=== PATIENT | male | born 1960 | race Caucasian/White ===

== ENCOUNTER → 2017-01-04 | Outpatient (CLI) | payer OTHER, MEDICARE ==
[~2017-01-04] MED LIST: ACET-1256 PO; ALLO100T PO; ASCO500T3 PO; BACL10TA PO; CBCI IV; FRRG PO; GLIM4TAB2 PO; INSU70IN2 SC; INSUINJ8 SQ; L-ME1CAP3 PO; LCTX PO; LPT/20 PO; LRS10 PO; LXP10 PO; MAGN400T7 PO; MENTOIN TOP; METH118C PO; MULT-411 PO; NRN800 PO; NYST100098 TOP; NYST1POW7 TOP; NYSTCRE11 TOP; PANT40TA2 PO; PROBCAP PO; ROPI1TAB29 PO; SODIENE PR; TRIA0.1C55 TOP; WARF-246 PO; WARF10TA4 PO; WARF7.5T4 PO; ZINC1CAP PO; ZNF/4 PO
--- NOTE | 2017-01-04 10:29 | DIAGNOSTIC IMAGING REPORT ---
LEFT FEMUR 2 VIEWS ROUTINE CLINICAL HISTORY: S72.342D fracture COMPARISON: 09/01/2016 DISCUSSION: Oblique fracture mid femoral shaft. Intramedullary luis in position. Partial interval healing from the prior study. Alignment remains unchanged. There is no evidence for soft tissue swelling. IMPRESSION: Considerable interval healing of the oblique fracture mid femoral shaft. Alignment remains unchanged. Electronically signed by: Amaury Pierce M.D. 01/04/2017 10:28 AM Dictated Date/Time: 01/04/2017 10:26 AM
== END | disposition home or self-care (01) ==
LOC: C.RAD 09:54
PROVIDERS: ATTEND Orthopaedic Surgery
DX: S72.342D Displaced spiral fracture of shaft of left femur, subsequent encounter for closed fracture with routine healing (principal); X58.XXXD Exposure to other specified factors, subsequent encounter

== ENCOUNTER → 2017-01-08 | Outpatient (CLI) | payer OTHER, MEDICARE ==
[2017-01-08 19:53] LABS: BASO % 0.3 %; BASO ABS # 0.03 K/uL (0-0.2); COMPLETE YES; EOS % 4.6 %; HEMATOCRIT 34.9 % (42-52); IG% 0.3 %; LYMPH % 29.1 %; LYMPH ABS # 2.66 K/uL (1.2-3.4); MEAN CELL VOLUME 84.5 fL (80-100); MEAN CORPUSCULAR HEMOGLOBIN 26.2 pg (25-34); MEAN CORPUSCULAR HGB CONC 30.9 g/dl (32-36); MONO % 6.2 %; NEUT % 59.5 %; PLATELET COUNT 249 K/uL (130-400); RED BLOOD COUNT 4.13 M/uL (4.7-6.1); WHITE BLOOD COUNT 9.15 K/uL (4.8-10.8)
[2017-01-08 20:15] LABS: ALT/SGPT 18 U/L (12-78); AST/SGOT 13 U/L (15-37); BLOOD UREA NITROGEN 13 mg/dl (7-18); BUN/CREATININE RATIO 20.3 (10-20); CALCIUM 8.6 mg/dl (8.5-10.1); CARBON DIOXIDE 34 mmol/L (21-32); CHLORIDE 98 mmol/L (98-107); CREATININE 0.66 mg/dl (0.60-1.40); GLUCOSE 191 mg/dl (70-99); POTASSIUM 3.7 mmol/L (3.5-5.1); SODIUM 137 mmol/L (136-145)
[2017-01-08 20:18] LABS: ALB/GLOB RATIO 0.6 (0.9-2); ALKALINE PHOSPHATASE 51 U/L (45-117)
== END | disposition home or self-care (01) ==
LOC: C.LABSPEC 19:10
PROVIDERS: ATTEND Internal Medicine Infectious Disease
DX: M86.9 Osteomyelitis, unspecified (principal)

== ENCOUNTER → 2017-01-12 | Outpatient (CLI) | payer OTHER, MEDICARE ==
[2017-01-12 20:11] LABS: BASO % 0.3 %; BASO ABS # 0.04 K/uL (0-0.2); COMPLETE YES; EOS % 3.5 %; HEMATOCRIT 32.8 % (42-52); IG% 0.3 %; LYMPH ABS # 2.42 K/uL (1.2-3.4); MEAN CELL VOLUME 85.2 fL (80-100); MEAN CORPUSCULAR HEMOGLOBIN 27.3 pg (25-34); MEAN PLATELET VOLUME 9.2 fL (7.4-10.4); MONO % 5.5 %; NEUT % 71.4 %; PLATELET COUNT 293 K/uL (130-400); RED BLOOD COUNT 3.85 M/uL (4.7-6.1); WHITE BLOOD COUNT 12.76 K/uL (4.8-10.8)
[2017-01-12 20:28] LABS: ALT/SGPT 18 U/L (12-78); AST/SGOT 13 U/L (15-37); BLOOD UREA NITROGEN 22 mg/dl (7-18); BUN/CREATININE RATIO 27.5 (10-20); CALCIUM 8.9 mg/dl (8.5-10.1); CARBON DIOXIDE 34 mmol/L (21-32); CHLORIDE 98 mmol/L (98-107); GLUCOSE 194 mg/dl (70-99); POTASSIUM 3.9 mmol/L (3.5-5.1); SODIUM 137 mmol/L (136-145)
[2017-01-12 20:31] LABS: ALB/GLOB RATIO 0.6 (0.9-2); ALKALINE PHOSPHATASE 58 U/L (45-117)
== END | disposition home or self-care (01) ==
LOC: C.LABSPEC 08:43
PROVIDERS: ATTEND Internal Medicine Infectious Disease
DX: M86.9 Osteomyelitis, unspecified (principal); Z51.81 Encounter for therapeutic drug level monitoring; Z79.2 Long term (current) use of antibiotics

== ENCOUNTER → 2017-01-19 | Outpatient (CLI) | payer OTHER, MEDICARE ==
[2017-01-19 20:04] LABS: BASO % 0.3 %; BASO ABS # 0.04 K/uL (0-0.2); COMPLETE YES; EOS % 1.9 %; HEMATOCRIT 34.4 % (42-52); IG% 0.3 %; LYMPH % 19.3 %; LYMPH ABS # 2.77 K/uL (1.2-3.4); MEAN CELL VOLUME 85.8 fL (80-100); MEAN CORPUSCULAR HEMOGLOBIN 26.9 pg (25-34); MEAN CORPUSCULAR HGB CONC 31.4 g/dl (32-36); MEAN PLATELET VOLUME 8.7 fL (7.4-10.4); MONO % 5.9 %; NEUT % 72.3 %; PLATELET COUNT 294 K/uL (130-400); RED BLOOD COUNT 4.01 M/uL (4.7-6.1); WHITE BLOOD COUNT 14.37 K/uL (4.8-10.8)
[2017-01-19 20:30] LABS: ALT/SGPT 14 U/L (12-78); AST/SGOT 14 U/L (15-37); BLOOD UREA NITROGEN 23 mg/dl (7-18); BUN/CREATININE RATIO 30.5 (10-20); CARBON DIOXIDE 36 mmol/L (21-32); CHLORIDE 98 mmol/L (98-107); CREATININE 0.76 mg/dl (0.60-1.40); GLUCOSE 92 mg/dl (70-99); POTASSIUM 3.8 mmol/L (3.5-5.1); SODIUM 138 mmol/L (136-145)
[2017-01-19 20:33] LABS: ALB/GLOB RATIO 0.6 (0.9-2); ALKALINE PHOSPHATASE 57 U/L (45-117)
== END | disposition home or self-care (01) ==
LOC: C.LABSPEC 08:49
PROVIDERS: ATTEND Internal Medicine Infectious Disease
DX: M86.9 Osteomyelitis, unspecified (principal)

== ENCOUNTER → 2017-01-26 | Outpatient (CLI) | payer OTHER, MEDICARE ==
[2017-01-26 21:33] LABS: ALT/SGPT 14 U/L (12-78); BLOOD UREA NITROGEN 24 mg/dl (7-18); BUN/CREATININE RATIO 33.2 (10-20); CARBON DIOXIDE 33 mmol/L (21-32); CHLORIDE 97 mmol/L (98-107); CREATININE 0.72 mg/dl (0.60-1.40); GLUCOSE 139 mg/dl (70-99); POTASSIUM 3.7 mmol/L (3.5-5.1); SODIUM 136 mmol/L (136-145)
[2017-01-26 21:36] LABS: ALB/GLOB RATIO 0.5 (0.9-2); ALKALINE PHOSPHATASE 62 U/L (45-117); AST/SGOT 16 U/L (15-37)
[2017-01-26 21:56] LABS: CALCIUM 8.8 mg/dl (8.5-10.1)
[2017-01-26 22:50] LABS: BASO % 0.4 %; BASO ABS # 0.05 K/uL (0-0.2); COMPLETE YES; EOS % 2.6 %; HEMATOCRIT 32.8 % (42-52); IG% 0.4 %; LYMPH % 16.6 %; LYMPH ABS # 2.25 K/uL (1.2-3.4); MEAN CELL VOLUME 85.4 fL (80-100); MEAN CORPUSCULAR HEMOGLOBIN 27.6 pg (25-34); MEAN CORPUSCULAR HGB CONC 32.3 g/dl (32-36); MEAN PLATELET VOLUME 8.9 fL (7.4-10.4); MONO % 5.9 %; NEUT % 74.1 %; PLATELET COUNT 266 K/uL (130-400); RED BLOOD COUNT 3.84 M/uL (4.7-6.1); WHITE BLOOD COUNT 13.55 K/uL (4.8-10.8)
== END | disposition home or self-care (01) ==
LOC: C.LABSPEC 10:05
PROVIDERS: ATTEND Internal Medicine Infectious Disease
DX: M86.9 Osteomyelitis, unspecified (principal)

== ENCOUNTER 2017-03-02 20:27 | Emergency (ER) | payer OTHER, MEDICARE ==
[~2017-03-02] VITALS: Ht 185.4 cm; Wt 104.5 kg
[~2017-03-02 20:27] MED LIST changes: -CBCI IV; -GLIM4TAB2 PO; -INSU70IN2 SC; -NYST1POW7 TOP; -SODIENE PR; -WARF-246 PO
[2017-03-02 20:39] VITALS: BP 147/80; PULSE 85; TEMP 36.7; O2SAT 98; Ht 185.4 cm; Wt 104.5 kg
--- NOTE | 2017-03-02 20:59 | EMERGENCY ROOM VISIT NOTE ---
"ED Visit Note First contact with patient: 20:51 CHIEF COMPLAINT: PICC line won't flush HISTORY OF PRESENT ILLNESS: This 56-year-old male presents the ER with his stating that she could not get his PICC line to flush this evening. She called the home health nurse and was instructed to come to the emergency room. He has had this PICC line in for 4 weeks. He has had not had any problems prior to this episode. REVIEW OF SYSTEMS: 6 system review was performed and was negative unless stated otherwise in history of present illness. PMH: The patient is healthy; see chronic problem list SOCIAL HISTORY: Patient lives with his PHYSICAL EXAM: Vital Signs: Were reviewed Reviewed Nurse's notes. GENERAL: 56- year-old white male appears sitting comfortably in a wheelchair. MENTAL Status : Alert and oriented 3. RIGHT ARM: PICC line in place. No surrounding erythema or edema noted. EMERGENCY DEPARTMENT COURSE: The patient was evaluated. The nurse was able to flush and draw blood from the line without any difficulty. Please see her note for details. DIAGNOSIS: PICC line problems DISCHARGE INSTRUCTIONS AND TREATMENT: Continue current IV therapy through PICC line. 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 (14) Neurogenic Bladder Status: Chronic (15) Personal History Of Urinary Calculi Status: Chronic (16) Personal History, Pneumonia (Recurrent) Status: Chronic (17) Personal History, Urinary (Tract) Infection Status: Chronic (18) Pressure Ulcer, Buttock Status: Chronic (19) Pressure Ulcer, Heel Status: Chronic (20) Pressure Ulcer, Stage Ii Status: Chronic (21) Quadriplegia, Unspecified Status: Chronic (22) Septic Shock Status: Resolved (23) Severe Sepsis Status: Resolved (24) Sleep apnea Status: Chronic (25) Ulcer Of Calf Status: Chronic Surgical Problems: (1) cervical laminoplasty/decompression [facility] [place] Status: Chronic (2) Insertion of inferior vena caval filter Status: Chronic (3) Insertion of stent into ureter Permanent Comment: left ureter 03/17/11 Status: Chronic (4) Lithotripsy Permanent Comment: laser lithotripsy left ureteral stone 03/17/11 Status: Chronic (5) Suprapubic cystostomy Status: Chronic Current/Historical Medications Scheduled Allopurinol (Zyloprim), 100 MG PO BID Ascorbic Acid (Vitamin C), 250 MG PO TID Atorvastatin (Atorvastatin Calcium), 20 MG PO HS Baclofen (Lioresal), 20 MG PO HS Baclofen (Baclofen), 5 MG PO TID Escitalopram Oxalate (Escitalopram Oxalate), 15 MG PO QAM Ferrous Gluconate (Ferrous Gluconate), 324 MG PO QAM Gabapentin (Gabapentin), 800 MG PO BID Insulin Nph (Novolin-N), 22 UNITS SQ QAM Insulin Nph (Novolin-N), 22 UNITS SQ QPM L-Methylfolate W/ Algae-Vitami (Metanx), 1 CAP PO BID Lactobacillus Acidophilus (Floranex), 1 TAB PO TIDM Magnesium Oxide (Mg Supplement (Magnesium Oxide), 241.3 MG PO BID Eulhelwbckp-Iwpvq-Kjfdzxzod Bl (Uribel), 1 CAP PO BID Multiple Vitamin (Daily Steve), 1 TAB PO QAM Nystatin (Mycostatin), 1 APPLN TOP BID Pantoprazole (Pantoprazole Sodium), 40 MG PO DAILY Probiotic Product (Newvem), 1 CAP PO QPM Ropinirole HCl (Ropinirole HCl), 1 MG PO QID Tizanidine (Tizanidine HCl), 2 MG PO QID Warfarin Sod (Jantoven), 7.5 MG PO DIRECTED Warfarin Sod (Jantoven), 10 MG PO DIRECTED Zinc Sulfate (Zinc Sulfate), 220 MG PO BID Scheduled PRN Acetaminophen (Tylenol), 1,000 MG PO BID PRN for Pain Menthol-Zinc Oxide (Calmoseptine 0.44-20.625 %), 1 APPLN TOP DAILY PRN for Skin Impairment Nystatin/Triamcinolone (Mycolog ||), 1 APPLN TOP BID PRN for Skin Impairment Triamcinolone Acet 0.1% (Aristocort 0.1%), 1 APPLN TOP BID PRN for Skin Impairment Allergies Coded Allergies: Piperacillin (Verified Allergy, Intermediate, RASH, 02/03/17) Sulfa Antibiotics (Verified Allergy, Intermediate, HIVES, 02/03/17) Tazobactam (Verified Allergy, Intermediate, RASH, 02/03/17) Aztreonam (Verified Allergy, Unknown, unknown, 02/03/17) states he is allergic to Azactam and does not remember what the reaction was Codeine (Verified Allergy, Unknown, THROAT SWELLS, 02/03/17) Per Dr. Roblero/patient- tolerates morphine Lactose Intolerance (GI) (Verified Allergy, Unknown, GI symptoms, 02/03/17) Cheese is okay. Latex (Verified Allergy, Unknown, welts, 02/03/17) Vital Signs Date Time Temp Pulse Resp B/P (MAP) Pulse Ox O2 Delivery O2 Flow Rate FiO2 03/02/17 20:39 36.7 85 20 147/80 98 Room Air Departure Information Referrals Wilder Stanford M.D. (PCP) Patient Instructions My [facility]"
[2017-03-11] MEDS ORDERED: INSU70IN2 SC (11:34)
== END 2017-03-02 21:22 | disposition home or self-care (01) ==
LOC: C.EDB 20:29 → C.EDD 21:22
DX: T82.598A Other mechanical complication of other cardiac and vascular devices and implants, initial encounter (principal); Y84.8 Other medical procedures as the cause of abnormal reaction of the patient, or of later complication, without mention of misadventure at the time of the procedure; G82.50 Quadriplegia, unspecified; E11.9 Type 2 diabetes mellitus without complications; I10 Essential (primary) hypertension; M10.9 Gout, unspecified; Z86.718 Personal history of other venous thrombosis and embolism; Z87.442 Personal history of urinary calculi; Z87.440 Personal history of urinary (tract) infections; Z98.890 Other specified postprocedural states; Z87.01 Personal history of pneumonia (recurrent); Z79.01 Long term (current) use of anticoagulants; Z79.4 Long term (current) use of insulin; Z79.899 Other long term (current) drug therapy

== ENCOUNTER 2017-04-12 09:39 | Emergency (ER) | payer OTHER, MEDICARE ==
[~2017-04-12] VITALS: Ht 180.3 cm; Wt 131.0 kg
[~2017-04-12 09:39] MED LIST changes: +INSU70IN2 SC; -INSUINJ8 SQ; -PANT40TA2 PO; +PRT/40 PO
[2017-04-12 10:00] VITALS: TEMP 36.8; Ht 180.3 cm; Wt 131.0 kg
[2017-04-12] MEDS ORDERED: CBCI IV (10:11)
[2017-04-12] MEDS ORDERED: NYST1POW7 TOP (10:22)
[2017-04-12 10:51] VITALS: BP 105/64; PULSE 62; O2SAT 96
--- NOTE | 2017-04-12 15:02 | EMERGENCY ROOM VISIT NOTE ---
"History Report prepared by Caroline: Luis Armando Prado Under the Supervision of: Dr. Bob Samson D.O. First contact with patient: 10:08 Chief Complaint: OTHER COMPLAINT Stated Complaint: PICC LINE BLOCKED History of Present Illness The patient is a 56 year old male who presents to the Emergency Room for a PICC line malfunction. The patient states that his PICC line was not flushing today. He has the PICC line placed for antibiotic use secondary to osteomyelitis. He has been on the antibiotics since September of this year. The patient denies headache, change in vision, fevers, chest pain, shortness of breath, nausea, vomiting, diarrhea, and pain with urination. Source of History: patient Onset: today Position: arm (right) Quality: other (PICC line malfunction) Associated Symptoms: No chest pain, No SOB, No nausea, No vomiting Review of Systems See HPI for pertinent positives & negatives. A total of 6 systems reviewed and were otherwise negative. Past Medical & Surgical Medical Problems: (1) Allergy To Latex (2) Anticoagulants,Lt,Current Use (3) Asymptomatic bacteriuria (4) Calculus Of Ureter (5) Clostridium difficile infection (6) DM type 2 (diabetes mellitus, type 2) (7) Fever (8) Gastroesophageal reflux disease (9) Gout Nos (10) History of blood clots (11) Hx-Venous Thrombosis&Embolism (12) Hypertension (13) Hypertension Nos (14) Kidney disease (15) Late Eff Spinal Cord Inj (16) Major depressive disorder, recurrent (17) Neurogenic Bladder (18) Personal History Of Urinary Calculi (19) Personal History, Pneumonia (Recurrent) (20) Personal History, Urinary (Tract) Infection (21) Positive urine culture (22) Pressure Ulcer, Buttock (23) Pressure Ulcer, Heel (24) Pressure Ulcer, Stage Ii (25) Quadriplegia, Unspecified (26) Septic Shock (27) Severe Sepsis (28) Sleep apnea (29) Ulcer Of Calf Surgical Problems: (1) cervical laminoplasty/decompression [facility] [place]/02[place]09 (2) Insertion of inferior vena caval filter (3) Insertion of stent into ureter (4) Lithotripsy (5) Suprapubic cystostomy Family History FH: cancer FATHER (Prostate CA) MOTHER (Cervical CA) FH: diabetes mellitus FATHER MOTHER FH: gallbladder disease FH: hypertension FH: lung disease FH: seizures Social History Smoking Status: Never Smoker Alcohol Use: none Drug Use: none Marital Status: Occupation Status: disabled Current/Historical Medications Scheduled Allopurinol (Zyloprim), 100 MG PO BID Ascorbic Acid (Vitamin C), 250 MG PO TID Atorvastatin (Atorvastatin Calcium), 20 MG PO HS Baclofen (Lioresal), 20 MG PO HS Baclofen (Baclofen), 5 MG PO TID Daptomycin (Cubicin), Unknown Dose IV DAILY Escitalopram Oxalate (Escitalopram Oxalate), 15 MG PO QAM Ferrous Gluconate (Ferrous Gluconate), 324 MG PO QAM Gabapentin (Gabapentin), 800 MG PO BID Insulin Isophan/Regular (Novolin 70/30), 35 UNITS SC BID L-Methylfolate W/ Algae-Vitami (Metanx), 1 CAP PO BID Lactobacillus Acidophilus (Floranex), 1 TAB PO TIDM Magnesium Oxide (Mg Supplement (Magnesium Oxide), 241.3 MG PO BID Uocctdktbon-Dhpsk-Ibewoflyo Bl (Uribel), 1 CAP PO BID Multiple Vitamin (Daily Steve), 1 TAB PO QAM Nystatin (Topical) (Nystatin), 1 APPLN TOP BID Pantoprazole (Pantoprazole Sodium), 40 MG PO DAILY Probiotic Product (Spredfast), 1 CAP PO QPM Ropinirole HCl (Ropinirole HCl), 1 MG PO BID Tizanidine (Tizanidine HCl), 2 MG PO QID Warfarin Sod (Jantoven), 7.5 MG PO DIRECTED Warfarin Sod (Jantoven), 10 MG PO DIRECTED Zinc Sulfate (Zinc Sulfate), 220 MG PO BID Scheduled PRN Acetaminophen (Tylenol), 1,000 MG PO BID PRN for Pain Nystatin/Triamcinolone (Mycolog ||), 1 APPLN TOP BID PRN for Skin Impairment Allergies Coded Allergies: Piperacillin (Verified Allergy, Intermediate, RASH, 04/12/17) Sulfa Antibiotics (Verified Allergy, Intermediate, HIVES, 04/12/17) Tazobactam (Verified Allergy, Intermediate, RASH, 04/12/17) Aztreonam (Verified Allergy, Unknown, unknown, 04/12/17) states he is allergic to Azactam and does not remember what the reaction was Codeine (Verified Allergy, Unknown, THROAT SWELLS, 04/12/17) Per Dr. Roblero/patient- tolerates morphine Lactose Intolerance (GI) (Verified Allergy, Unknown, GI symptoms, 04/12/17) Cheese is okay. Latex (Verified Allergy, Unknown, welts, 04/12/17) Physical Exam Vital Signs Date Time Temp Pulse Resp B/P (MAP) Pulse Ox O2 Delivery O2 Flow Rate FiO2 04/12/17 10:51 62 105/64 96 04/12/17 10:00 36.8 86 18 108/89 94 Room Air Physical Exam GENERAL: Sitting up in bed, morbidly obese. alert, well appearing, well nourished, no distress, non-toxic EYE EXAM: normal conjunctiva OROPHARYNX: no exudate, no erythema, lips, buccal mucosa, and tongue normal and mucous membranes are moist NECK: supple, no nuchal rigidity, no adenopathy, non-tender LUNGS: Clear to auscultation. Normal chest wall mechanics HEART: no murmurs, S1 normal and S2 normal ABDOMEN: There is an ostomy bad present in left quadrant. abdomen soft, non- tender, normo-active bowel sounds, no masses, no rebound or guarding. UPPER EXTREMITIES: upper extremities are grossly normal. PICC line located in right mid-humerus, actively being flushed by IV team. LOWER EXTREMITIES: No pitting edema. NEURO EXAM: Normal sensorium Medical Decision & Procedures ED Course ED COURSE: Vital signs were reviewed and showed normal vitals The patients medical record was reviewed The above diagnostic studies were performed and reviewed. ED treatments and interventions as stated above. 1024: The patient was evaluated in room A4. A complete history and physical examination was performed. 1038: While discussing the case with the patient the IV-team has flushed the PICC line and it is functioning well. The patient feels well and is ready to be discharged home. Based on the patients age, coexisting illnesses, exam and lab findings the decision to treat as an outpatient was made. The patient remained stable while under my care. The patient appeared well at the time of discharge. Medical Decision Patient is a 56-year-old male who presents the ER for his right PICC line not functioning/flushing. Patient has no other complaints. He is currently receiving IV antibiotics with infectious disease following. Patient was evaluated by IV team and PICC line flushed without difficulty. Patient was discharged follow-up with PCP and infectious disease. Dressing was changed. She had no other complains. Discussed with Pt concerning signs and symptoms to watch out for. Pt was instructed to follow up with their PCP and discussed with the patient their option to return to the ED at anytime for persistent or worsening symptoms. The appropriate anticipatory guidance and out-patient management, including indications for return to the emergency department, were explained at length to the patient and understood. Impression Primary Impression: Occluded PICC line Critical Care The scribe's documentation has been prepared under my direction and personally reviewed by me in its entirety. I confirm that the note above accurately reflects all work, treatment, procedures, and medical decision making performed by me. Scribe Attestation The scribe's documentation has been prepared under my direction and personally reviewed by me in its entirety. I confirm that the note above accurately reflects all work, treatment, procedures, and medical decision making performed by me. Departure Information Dispostion Home / Self-Care Referrals Wilder Stanford M.D. (PCP) Forms HOME CARE DOCUMENTATION FORM, IMPORTANT VISIT INFORMATION, WORK / SCHOOL INSTRUCTIONS Patient Instructions My [facility] Additional Instructions Please follow up with your primary care doctor or if you are a student, [facility] with in the next 24 hours. Any worsening of your symptoms, please return to the ED immediately. This includes any fevers greater than 100.4, worsening pain, chest pain, shortness breath, persistent nausea, vomiting, unable to eat or drink, redness around your PICC site, PICC line flushing, or any other concerning signs or symptoms from your standpoint. Please follow up with infectious disease in regards to how long you keep your PICC line in. Problem Qualifiers Primary Impression: Occluded PICC line Encounter type: initial encounter Qualified Codes: T82.898A - Other specified complication of vascular prosthetic devices, implants and grafts, initial encounter"
== END 2017-04-12 10:51 | disposition home or self-care (01) ==
LOC: C.EDB 09:40 → C.EDA 10:51
DX: T82.898A Other specified complication of vascular prosthetic devices, implants and grafts, initial encounter (principal); Y84.8 Other medical procedures as the cause of abnormal reaction of the patient, or of later complication, without mention of misadventure at the time of the procedure; M86.9 Osteomyelitis, unspecified; Z79.01 Long term (current) use of anticoagulants; E11.9 Type 2 diabetes mellitus without complications; K21.9 Gastro-esophageal reflux disease without esophagitis; M10.9 Gout, unspecified; Z86.718 Personal history of other venous thrombosis and embolism; I10 Essential (primary) hypertension; F32.9 Major depressive disorder, single episode, unspecified; Z87.01 Personal history of pneumonia (recurrent); G47.30 Sleep apnea, unspecified; Z80.42 Family history of malignant neoplasm of prostate; Z80.49 Family history of malignant neoplasm of other genital organs; Z83.3 Family history of diabetes mellitus; Z82.49 Family history of ischemic heart disease and other diseases of the circulatory system; Z82.0 Family history of epilepsy and other diseases of the nervous system; Z79.899 Other long term (current) drug therapy; E66.01 Morbid (severe) obesity due to excess calories; Z68.41 Body mass index [BMI] 40.0-44.9, adult

== ENCOUNTER → 2017-04-13 | Outpatient (CLI) | payer OTHER, MEDICARE ==
[~2017-04-13] MED LIST changes: +CBCI IV; -MENTOIN TOP; -NYST100098 TOP; +NYST1POW7 TOP; -TRIA0.1C55 TOP
[2017-04-13 18:01] LABS: BASO % 0.3 %; BASO ABS # 0.05 K/uL (0-0.2); COMPLETE YES; EOS % 4.1 %; HEMATOCRIT 34.8 % (42-52); IG% 0.5 %; LYMPH % 15.3 %; LYMPH ABS # 2.52 K/uL (1.2-3.4); MEAN CELL VOLUME 85.3 fL (80-100); MEAN CORPUSCULAR HEMOGLOBIN 28.2 pg (25-34); MEAN PLATELET VOLUME 8.9 fL (7.4-10.4); MONO % 4.8 %; PLATELET COUNT 280 K/uL (130-400); RED BLOOD COUNT 4.08 M/uL (4.7-6.1); WHITE BLOOD COUNT 16.45 K/uL (4.8-10.8)
[2017-04-13 18:13] LABS: ALT/SGPT 19 U/L (12-78); BLOOD UREA NITROGEN 21 mg/dl (7-18); BUN/CREATININE RATIO 20.6 (10-20); CALCIUM 9.2 mg/dl (8.5-10.1); CARBON DIOXIDE 34 mmol/L (21-32); CHLORIDE 97 mmol/L (98-107); GLUCOSE 179 mg/dl (70-99); SODIUM 135 mmol/L (136-145)
[2017-04-13 18:16] LABS: ALB/GLOB RATIO 0.5 (0.9-2); ALKALINE PHOSPHATASE 66 U/L (45-117); AST/SGOT 15 U/L (15-37)
== END | disposition home or self-care (01) ==
LOC: C.LABSPEC 16:29
PROVIDERS: ATTEND Internal Medicine Infectious Disease
DX: Z01.89 Encounter for other specified special examinations (principal)

== ENCOUNTER → 2017-06-18 | Outpatient (CLI) | payer OTHER, MEDICARE ==
[~2017-06-18] MED LIST changes: +PANT40TA2 PO; -PRT/40 PO
--- NOTE | 2017-07-16 10:28 | CODING QUERY NO DIAGNOSIS ---
TREATMENT RENDERED WITHOUT A DIAGNOSIS To promote full compliance with coding requirements relating to patient care, physician participation is requested in all cases of threshing department supervisor uncertainty. Please assist us with providing a diagnosis/symptom for the test(s) below: A diagnosis/symptom was not documented on your Order. A valid diagnosis/symptom is required to bill all insurances. Please remember that we are unable to code a diagnosis of rule out, probable, possible, questionable, or suspected. Tests that require a diagnosis for DOS- 06/18/17: * WOUND CULTURE, SURFACE AND GS-SACRUM / ISHIUM DIAGNOSIS: Provider Signature: Date: Thank you Grace Crespo [employer] Information Management Once completed, please kindly fax back to [phone] For questions please call [phone]
== END | disposition home or self-care (01) ==
LOC: C.LABSPEC 17:04
PROVIDERS: ATTEND Internal Medicine Infectious Disease
DX: Z01.89 Encounter for other specified special examinations (principal)

== ENCOUNTER → 2017-08-31 | Outpatient (CLI) | payer OTHER, MEDICARE ==
[~2017-08-31] MED LIST changes: -LPT/20 PO; +LPT20 PO
[2017-08-31 21:21] LABS: BASO % 0.3 %; BASO ABS # 0.05 K/uL (0-0.2); EOS % 3.5 %; EOS ABS # 0.55 K/uL (0-0.5); HEMATOCRIT 34.4 % (42-52); HEMOGLOBIN 11.2 g/dL (14.0-18.0); IG# 0.08 K/uL (0.00-0.02); LYMPH % 16.5 %; MEAN CELL VOLUME 88.2 fL (80-100); MEAN CORPUSCULAR HEMOGLOBIN 28.7 pg (25-34); MEAN CORPUSCULAR HGB CONC 32.6 g/dl (32-36); MEAN PLATELET VOLUME 9.4 fL (7.4-10.4); MONO ABS # 0.79 K/uL (0.11-0.59); NEUT % 74.2 %; NEUT ABS # 11.64 K/uL (1.4-6.5); PLATELET COUNT 278 K/uL (130-400); RED CELL DISTRIBUTION WIDTH CV 17.4 % (11.5-14.5); RED CELL DISTRIBUTION WIDTH SD 55.4 fL (36.4-46.3); WHITE BLOOD COUNT 15.71 K/uL (4.8-10.8)
[2017-08-31 21:36] LABS: INR 2.9 (0.9-1.1)
[2017-08-31 21:41] LABS: ALBUMIN 2.9 gm/dl (3.4-5.0); ALT/SGPT 19 U/L (12-78); BLOOD UREA NITROGEN 18 mg/dl (7-18); CARBON DIOXIDE 32 mmol/L (21-32); CREATININE 0.94 mg/dl (0.60-1.40); GLUCOSE 148 mg/dl (70-99); POTASSIUM 3.6 mmol/L (3.5-5.1); SODIUM 136 mmol/L (136-145)
[2017-08-31 21:44] LABS: ALKALINE PHOSPHATASE 67 U/L (45-117); AST/SGOT 13 U/L (15-37)
--- NOTE | 2017-09-08 10:51 | CODING QUERY NO DIAGNOSIS ---
: 1960 TREATMENT RENDERED WITHOUT A DIAGNOSIS To promote full compliance with coding requirements relating to patient care, physician participation is requested in all cases of deaf/hard of hearing specialist uncertainty. Please assist us with providing a diagnosis/symptom for the test(s) below: A diagnosis/symptom was not documented on your Order. A valid diagnosis/symptom is required to bill all insurances. Please remember that we are unable to code a diagnosis of rule out, probable, possible, questionable, or suspected. Please provide original order. Tests that require a diagnosis: DOS: 08/31/17 * CBC W Diff DIAGNOSIS: * Sed Rate Automated DIAGNOSIS: * CPK DIAGNOSIS: * Comp Metabolic Profile DIAGNOSIS: * Prothrombin Time DIAGNOSIS: Provider Signature: Date: Thank you Anabel Brown Health Information Management Once completed, please kindly fax back to [phone] For questions please call [phone]
== END | disposition home or self-care (01) ==
LOC: C.LABSPEC 07:33
PROVIDERS: ATTEND Internal Medicine Infectious Disease
DX: M86.9 Osteomyelitis, unspecified (principal)

== ENCOUNTER → 2017-09-21 | Outpatient (CLI) | payer OTHER, MEDICARE ==
[2017-09-21 13:03] LABS: INR 2.3 (0.9-1.1)
--- NOTE | 2017-09-23 09:45 | CODING QUERY NO DIAGNOSIS ---
: 1960 TREATMENT RENDERED WITHOUT A DIAGNOSIS To promote full compliance with coding requirements relating to patient care, physician participation is requested in all cases of injection molding technician uncertainty. Please assist us with providing a diagnosis/symptom for the test(s) below: A diagnosis/symptom was not documented on your Order. A valid diagnosis/symptom is required to bill all insurances. Please remember that we are unable to code a diagnosis of rule out, probable, possible, questionable, or suspected. Tests that require a diagnosis: DOS: 09/21/17 * PROTHROMBIN TIME PROFILE DIAGNOSIS: Provider Signature: Date: Thank you Brianna Nguyen Health Information Management Once completed, please kindly fax back to [phone] For questions please call [phone]
== END | disposition home or self-care (01) ==
LOC: C.LABSPEC 12:15
PROVIDERS: ATTEND Family Medicine
DX: I82.90 Acute embolism and thrombosis of unspecified vein (principal); Z51.81 Encounter for therapeutic drug level monitoring; Z79.01 Long term (current) use of anticoagulants

== ENCOUNTER → 2017-12-15 | Outpatient (CLI) | payer OTHER, MEDICARE ==
[2017-12-15 10:18] LABS: INR 3.9 (0.9-1.1)
== END | disposition home or self-care (01) ==
LOC: C.LABSPEC 09:50
PROVIDERS: ATTEND Family Medicine
DX: Z01.89 Encounter for other specified special examinations (principal)

== ENCOUNTER 2020-03-16 21:26 | Inpatient (IN) ==
[2020-03-16] MEDS ORDERED: SODIUM CHLORIDE 0.9% 1000ML 1,000 ML IV ONE (21:56)
[2020-03-16] MEDS ORDERED: CEFEPIME 2,000 MG/20 ML VIAL IV STA (21:58)
--- NOTE | 2020-03-16 22:00 | Emergency Department Note ---
History of Present Illness General Chief complaint: Hypotension Stated complaint: HYPOTENSIVE, LETHARGY Time Seen by Provider: 03/16/20 21:47 Source: patient Mode of arrival: EMS History of Present Illness Provider complaint: Weakness Onset (ago): hour(s) Location: head Radiation: non-radiation Severity: moderate Pain Consistency: + constant Maximum Pain Intensity: 0 Quality: + other (Weakness) Relieved By: + none Associated symptoms: + fever/chills; no chest pain, no cough, no headaches, no nausea/vomiting and no shortness of breath This is a 59-year-old male who is a partial quadriplegic presenting with generalized weakness starting earlier today at about 7 PM. The patient states he was at a movie and his vision was blurry and the sound of the movie was muffled. His states that he had a blank look on his face. EMS was called and they noted his blood pressure was low. He was given normal saline IV prior to arrival. He states he feels generally weak and tired. He has no specific complaints otherwise. He does state that he had a fever 4 days ago at his doctor's office of 100.5. He had a COVID test at that time which was negative. He denies any headache, chest pain, shortness of breath, cough or cold symptoms, change in urination or abdominal pain. He does state that his urine is normally green due to the medication that he is on. He has a suprapubic catheter and states that he is normally colonized by pseudomonas. The patient states that he was taken off of all of his high blood pressure medications by his doctor. He is not taking lisinopril. Home Medications Home Medications Medication Instructions Recorded Confirmed Type allopurinol 100 mg PO BID 05/07/18 03/16/20 History ascorbic acid (vitamin C) 250 mg PO TID 05/07/18 03/16/20 History ferrous gluconate 324 mg PO DAILY 05/07/18 03/16/20 History furosemide 40 mg PO BID 05/07/18 03/16/20 History gabapentin 800 mg PO BID 05/07/18 03/16/20 History cgwxjdomy-N8-zlT60-algal oil 1 cap PO BID 05/07/18 03/16/20 History [Metanx (algal oil)] magnesium oxide 400 mg PO BID 05/07/18 03/16/20 History multivitamin 1 tab PO QAM 05/07/18 03/16/20 History nystatin-triamcinolone 1 dose TOPICAL BID PRN 05/07/18 03/16/20 History pantoprazole 40 mg PO DAILY 05/07/18 03/16/20 History ropinirole 1 mg PO QID 05/07/18 03/16/20 History escitalopram oxalate 20 mg tablet 20 mg PO HS tab 08/21/19 03/16/20 History insulin human U-100 NPH-regulr 0 unit SUBCUT UD 08/21/19 03/16/20 History 70-30 mix 100 unit/mL subcutaneous susp insulin regular human 100 unit/mL 0 unit SUBCUT UD 08/21/19 03/16/20 History injection solution nystatin 100,000 unit/gram topical 1 appln TOP BID PRN gm 08/21/19 03/16/20 History powder triamcinolone acetonide 0.1 % 1 appln TOP BID 08/21/19 03/16/20 History topical cream warfarin 5 mg tablet 5 mg PO SuTuThSa@1600 tab 08/21/19 03/16/20 History atorvastatin 40 mg tablet 40 mg PO QPM 08/24/19 03/16/20 History blood sugar diagnostic #10 ea 08/24/19 03/01/20 History baclofen 10 mg tablet 5 mg PO UD 09/22/19 03/01/20 History nitrofurantoin 100 mg PO DAILY #30 cap 09/22/19 03/16/20 Rx monohydrate/macrocrystals 100 mg capsule warfarin [Coumadin] 7.5 mg PO MOWEFR@1600 10/14/19 03/16/20 History cefdinir 300 mg capsule See Rx Instructions .ROUTE 12/01/19 03/16/20 Rx .COMPLEX #60 capsule Lactobacillus acidoph-L.bulgar 1 tab PO BID 03/01/20 03/16/20 History [Floranex] cyclobenzaprine 15 mg PO HS 03/01/20 03/16/20 History hyoscyamine sulfate 0.125 mg PO DAILY 03/01/20 03/16/20 History metformin [Glucophage] 1,000 mg PO BID 03/01/20 03/16/20 History andrew-aditya-sCbnrgs-tbwzy-zkz 2 cap PO DAILY 03/01/20 03/16/20 History [Uro-MP] potassium chloride 10 meq PO BID 03/01/20 03/16/20 History spironolactone [Aldactone] 25 mg PO DAILY 03/01/20 03/16/20 History tizanidine 4 mg PO BID 03/01/20 03/16/20 History Allergies Allergy/AdvReac Type Severity Reaction Status Date / Time piperacillin Allergy Intermediate RASH Verified 03/16/20 22:28 Sulfa (Sulfonamide Allergy Intermediate HIVES Verified 03/16/20 22:28 Antibiotics) tazobactam Allergy Intermediate RASH Verified 03/16/20 22:28 aztreonam Allergy Unknown unknown Verified 03/16/20 22:28 codeine Allergy Unknown THROAT Verified 03/16/20 22:28 SWELLS lactose Allergy Unknown GI symptoms Verified 03/16/20 22:28 latex Allergy Unknown welts Verified 03/16/20 22:28 Past Med/Surg History Medical History Asymptomatic bacteriuria Clostridium difficile infection (Resolved Unknown) CVA (cerebral vascular accident) (Acute) DM type 2 (diabetes mellitus, type 2) (Chronic) Dyslipidemia Dysphagia Fever History of blood clots (Chronic) History of DVT (deep vein thrombosis) Hypertension (Chronic) Hypotension Ileus (Acute) Kidney disease (Chronic) Leukocytosis (Acute) Major depressive disorder, recurrent Obesity Occluded PICC line (Acute) Positive urine culture Quadriplegia Seizure SIRS (systemic inflammatory response syndrome) (Acute) Sleep apnea (Chronic Unknown) Syncope 57 year old with know quadriplegia and new onset syncope with change in position UTI (urinary tract infection) (Acute) Surgical History Insertion of inferior vena caval filter (Chronic Unknown) Lithotripsy (Chronic Unknown) "laser lithotripsy left ureteral stone 03/17/11 " Suprapubic cystostomy (Chronic Unknown) Social History Preferred Language: [place]an Communication Ability: Effective 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 and A total of 10 systems reviewed and were otherwise negative Physical Exam Vital Signs Vital Signs - 24 hr 03/16/20 21:32 03/16/20 21:37 03/16/20 21:38 Temperature 36.9 C Temperature Source Oral Pulse Rate 93 H 92 H 93 H Pulse Rate from SpO2 Sensor 94 H Pulse Rhythm Regular Pulse Strength Normal Respiratory Rate 17 27 H 21 Respiratory Effort / Characteristics Non-Labored Respiratory Depth Normal Respiratory Pattern Regular Blood Pressure 85/60 L 85/60 L Blood Pressure Mean 68 68 Blood Pressure Position Lying Pulse Oximetry 93 94 Oxygen Delivery Method Room Air Sepsis Recent Fever Within 48 Hours No Sepsis Action Taken by Nursing No Action Required Oxygen Flow Rate - Titration Pulse Oximetry Post Tiitration 03/16/20 21:50 03/16/20 22:00 03/16/20 22:10 Temperature Temperature Source Pulse Rate 94 H 91 H 88 Pulse Rate from SpO2 Sensor 95 H 91 H 88 Pulse Rhythm Pulse Strength Respiratory Rate 27 H 18 16 Respiratory Effort / Characteristics Respiratory Depth Respiratory Pattern Blood Pressure 84/56 L 86/52 L Blood Pressure Mean 71 63 Blood Pressure Position Pulse Oximetry 94 88 L 83 L Oxygen Delivery Method Sepsis Recent Fever Within 48 Hours Sepsis Action Taken by Nursing Oxygen Flow Rate - Titration Pulse Oximetry Post Tiitration 03/16/20 22:11 03/16/20 22:18 03/16/20 22:30 Temperature Temperature Source Pulse Rate 89 91 H Pulse Rate from SpO2 Sensor Pulse Rhythm Pulse Strength Respiratory Rate 16 16 Respiratory Effort / Characteristics Respiratory Depth Respiratory Pattern Blood Pressure 85/48 L Blood Pressure Mean 64 Blood Pressure Position Pulse Oximetry 93 Oxygen Delivery Method Room Air Sepsis Recent Fever Within 48 Hours Sepsis Action Taken by Nursing Oxygen Flow Rate - Titration 2 Pulse Oximetry Post Tiitration 97 03/16/20 22:31 03/16/20 22:32 03/16/20 22:45 Temperature Temperature Source Pulse Rate 92 H 93 H 93 H Pulse Rate from SpO2 Sensor 93 H Pulse Rhythm Pulse Strength Respiratory Rate 19 18 18 Respiratory Effort / Characteristics Respiratory Depth Respiratory Pattern Blood Pressure 79/48 L 100/57 L Blood Pressure Mean 65 65 Blood Pressure Position Pulse Oximetry 97 Oxygen Delivery Method Sepsis Recent Fever Within 48 Hours Sepsis Action Taken by Nursing Oxygen Flow Rate - Titration Pulse Oximetry Post Tiitration 03/16/20 22:57 Temperature Temperature Source Pulse Rate Pulse Rate from SpO2 Sensor Pulse Rhythm Pulse Strength Respiratory Rate Respiratory Effort / Characteristics Respiratory Depth Respiratory Pattern Blood Pressure Blood Pressure Mean Blood Pressure Position Pulse Oximetry 95 Oxygen Delivery Method Room Air Sepsis Recent Fever Within 48 Hours Sepsis Action Taken by Nursing Oxygen Flow Rate - Titration Pulse Oximetry Post Tiitration Constitutional: Vital signs reviewed. Hypotensive. Eyes: Pupils are equal round reactive to light. Conjunctiva are noninjected. ENT: Pharynx is clear without erythema or exudate. Mucous membranes are moist. Neck supple without meningeal signs. Respiratory: Clear to auscultation bilaterally. Breath sounds are equal bilaterally. Cardiovascular: Regular rate and rhythm. No rubs or gallops. GI: Soft, nondistended and nontender. Bowel sounds are present. Suprapubic catheter with clear green urine in the Martinez bag. Ostomy left upper quadrant with liquid stool. Musculoskeletal: No peripheral edema. No lower extremity tenderness. Integumentary: No cyanosis. or jaundice. Neurological: The patient is awake and alert. Partial quadriplegic with no sensation or movement of his lower extremities. He states he is able to feel his abdomen. He is able to move and feel his arms. Psychiatric: Normal affect. Not anxious appearing. Course Administered Medications Sodium Chloride (Nss 1000ml) 1,000 mls @ 999 mls/hr IV .Q1H1M JO Stop: 03/17/20 00:00 Last Admin: 03/16/20 23:36 Dose: 999 mls/hr Documented by: [id number] Discontinued Medications Sodium Chloride (Nss 1000ml) 1,000 mls @ 999 mls/hr IV .Q1H1M ONE Stop: 03/16/20 22:56 Last Infusion: 03/16/20 23:35 Dose: 0 mls/hr Documented by: [id number] Admin: 03/16/20 22:16 Dose: 999 mls/hr Documented by: [id number] Cefepime HCl (Maxipime) 2,000 mg in 20 mls @ 5 mls/min IV NOW STA; Protocol Stop: 03/16/20 22:01 Last Admin: 03/16/20 22:16 Dose: 5 mls/min Documented by: [id number] Critical Care Time Critical Care Time: Yes Total Critical Care Time: 45 I have personally spent approximately 45 minutes of critical care time in the direct management of this patient. This includes bedside care, interpretation of diagnostic studies, and testing, discussion with consultants, patient, and family members, and other required patient management activities. These minutes are in excess of all separately billable procedures. Medical Decision Making Differential Diagnosis Sepsis, bacteremia, Pseudomonas, UTI, pneumonia, supratherapeutic INR, hemorrhage Medical Records Attestation: I reviewed the patient's medical records. The patient was seen here February 27 for high blood pressure and a UTI. He was placed on Cipro at that time. Home Medications Current Medication List: was personally reviewed by me Laboratory Data Attestation: I reviewed the patient's lab results. Result diagrams: 03/16/20 22:11 03/16/20 22:11 Lab Results 03/16/20 03/16/20 03/16/20 Range/Units 22:10 22:11 22:11 WBC (4.8-10.8) K/uL RBC (4.7-6.1) M/uL Hgb (14.0-18.0) g/dL POC Hgb (14.0-18.0) g/dl Hct (42-52) % POC Hct (42-52) % MCV (80-100) fL MCH (25-34) pg MCHC (32-36) g/dL RDW Std Deviation (36.4-46.3) fL RDW Coeff of Yoseph (11.5-14.5) % Plt Count (130-400) K/uL MPV (7.4-10.4) fL Immature Gran % (Auto) % Neut % (Auto) % Lymph % (Auto) % Bandera % (Auto) % Eos % (Auto) % Baso % (Auto) % Neut # (Auto) (1.4-6.5) K/uL Lymph # (Auto) (1.2-3.4) K/uL Bandera # (Auto) (0.11-0.59) K/uL Eos # (Auto) (0-0.5) K/uL Baso # (Auto) (0-0.2) K/uL Immature Gran # (Auto) (0.00-0.02) K/uL PT 29.0 H (9.0-12.0) Seconds INR 2.9 H (0.9-1.1) APTT 50.4 H* (21.0-31.0) Seconds PTT Ratio 1.8 POC Sodium (135-144) mmol/L Sodium 136 (136-145) mmol/L POC Potassium (3.3-5.0) mmol/L Potassium 3.7 (3.5-5.1) mmol/L POC Chloride (101-112) mmol/L Chloride 100 (98-107) mmol/L Carbon Dioxide 30 (21-32) mmol/L POC Total CO2 (24-31) mmol/L Anion Gap 6.0 (3-11) POC Anion Gap (16-25) mmol/L POC BUN (7-18) mg/dl BUN 20 H (7-18) mg/dl Creatinine 2.26 H (0.6-1.4) mg/dl POC Creatinine (0.6-1.3) mg/dl Est Cr Clr Drug Dosing 56.9 ml/min Est GFR ( Amer) 35.2 Est GFR (Non-Af Amer) 30.4 BUN/Creatinine Ratio 8.8 L (10-20) Glucose 131 H (70-99) mg/dl POC Glucose (other) (70-99) mg/dl Lactate 2.9 H* (0.4-2.0) mmol/L Calcium 8.8 (8.5-10.1) mg/dl POC Ioniz Calcium Candice (1.12-1.32) mmol/l Magnesium 1.9 (1.8-2.4) mg/dl Total Bilirubin 0.4 (0.2-1) mg/dl AST 11 L (15-37) U/L ALT 19 (12-78) U/L Alkaline Phosphatase 62 (45-117) U/L Troponin I < 0.015 (0-0.045) ng/ml Total Protein 7.8 (6.4-8.2) gm/dl Albumin 2.9 L (3.4-5.0) gm/dl Globulin 4.9 H (2.5-4.0) gm/dl Albumin/Globulin Ratio 0.6 L (0.9-2) 03/16/20 03/16/20 Range/Units 22:11 22:11 WBC 17.75 H (4.8-10.8) K/uL RBC 3.57 L (4.7-6.1) M/uL Hgb 10.3 L (14.0-18.0) g/dL POC Hgb 10.9 L (14.0-18.0) g/dl Hct 32.7 L (42-52) % POC Hct 32 L (42-52) % MCV 91.6 (80-100) fL MCH 28.9 (25-34) pg MCHC 31.5 L (32-36) g/dL RDW Std Deviation 61.5 H (36.4-46.3) fL RDW Coeff of Yoseph 18.2 H (11.5-14.5) % Plt Count 266 (130-400) K/uL MPV 9.4 (7.4-10.4) fL Immature Gran % (Auto) 0.5 % Neut % (Auto) 80.0 % Lymph % (Auto) 12.1 % Bandera % (Auto) 5.1 % Eos % (Auto) 2.1 % Baso % (Auto) 0.2 % Neut # (Auto) 14.20 H (1.4-6.5) K/uL Lymph # (Auto) 2.15 (1.2-3.4) K/uL Bandera # (Auto) 0.91 H (0.11-0.59) K/uL Eos # (Auto) 0.38 (0-0.5) K/uL Baso # (Auto) 0.03 (0-0.2) K/uL Immature Gran # (Auto) 0.08 H (0.00-0.02) K/uL PT (9.0-12.0) Seconds INR (0.9-1.1) APTT (21.0-31.0) Seconds PTT Ratio POC Sodium 137 (135-144) mmol/L Sodium (136-145) mmol/L POC Potassium 4.0 (3.3-5.0) mmol/L Potassium (3.5-5.1) mmol/L POC Chloride 96 L (101-112) mmol/L Chloride (98-107) mmol/L Carbon Dioxide (21-32) mmol/L POC Total CO2 29 (24-31) mmol/L Anion Gap (3-11) POC Anion Gap 17.0 (16-25) mmol/L POC BUN 21 H (7-18) mg/dl BUN (7-18) mg/dl Creatinine (0.6-1.4) mg/dl POC Creatinine 2.4 H (0.6-1.3) mg/dl Est Cr Clr Drug Dosing ml/min Est GFR ( Amer) Est GFR (Non-Af Amer) BUN/Creatinine Ratio (10-20) Glucose (70-99) mg/dl POC Glucose (other) 139 H (70-99) mg/dl Lactate (0.4-2.0) mmol/L Calcium (8.5-10.1) mg/dl POC Ioniz Calcium Candice 1.08 L (1.12-1.32) mmol/l Magnesium (1.8-2.4) mg/dl Total Bilirubin (0.2-1) mg/dl AST (15-37) U/L ALT (12-78) U/L Alkaline Phosphatase (45-117) U/L Troponin I (0-0.045) ng/ml Total Protein (6.4-8.2) gm/dl Albumin (3.4-5.0) gm/dl Globulin (2.5-4.0) gm/dl Albumin/Globulin Ratio (0.9-2) Imaging Data Radiologist's Impression: SINGLE VIEW CHEST CLINICAL HISTORY: Sepsis. FINDINGS: An AP, portable, upright chest radiograph is compared to study dated 10/14/2019. Correlation is made with chest CT dated 05/07/2016. The examination is degraded by portable technique, large body habitus, apical positioning, and patient rotation. The heart is enlarged. There is prominence of the pulmonary vasculature. Atelectasis is seen at the lung bases. No airspace consolidation or large pleural effusion is identified. No pneumothorax is seen. The skeletal structures are osteopenic. The bony thorax is grossly intact. Cerclage wires project over the left lower ribs. IMPRESSION: 1. Cardiomegaly with prominence of the pulmonary vasculature. Correlate clinically for evidence of mild congestive failure. 2. No airspace consolidation or large pleural effusion is identified. ACT 112: Negative or not required by law. Electronically signed by: José Wise M.D. 03/16/2020 10:32 PM Dictated: 03/16/202229 Transcribed: 03/16/202229 ECG Data Attestation: I personally reviewed and interpreted this ECG as follows: Indication: + weakness Rate (beats per minute): 92 Rhythm: + normal sinus ECG Intervals/blocks: + Right Bundle branch block ECG ST segments: no ST elevation ECG Findings: no PVCs Comparison ECG Date: from (October 14, 2019) Change: no significant change Blood Pressure Blood Pressure Findings: Low blood pressure Blood Pressure Disposition: further management by hospitalist MDM Narrative I did evaluate the patient as noted above. The patient did receive a liter normal saline prior to arrival. He is still hypotensive when I evaluated him with a blood pressure of 85/60. He was given a total of 3 L normal saline IV per sepsis protocol. He feels tired and weak but otherwise has no complaints. I did treat her with cefepime [address] I did place an order for continuous cardiac monitoring. The monitor showed normal sinus rhythm with a rate of 93. I did order and personally review the patient's 12-lead EKG as described above. He has an old bundle branch block. I did order and personally reviewed the images of the patient's chest x-ray as described above. I did order a urine culture. His urine is discolored chronically from his bacteriostatic. I did order and review the patient's blood work as noted in the electronic medical record. His white count is 17,000. Hemoglobin is 10 0.3 which is stable for him. Creatinine is 2.26 which is new for him. Lactic acid level is elevated at 2.9. INR is therapeutic at 2.9. I did reassess the patient multiple times. I did discuss the test results with him. His blood pressure did improve significantly. I did discuss the case with the hospitalist and casework specialist. I did also speak to ronald from the ICU team for potential admission to the ICU. Impression & Plan Sepsis, Septic shock, ROBERT (acute kidney injury), Anticoagulated on Coumadin Discharge Plan Visit Data Chief Complaint: Hypotension Stated Complaint: HYPOTENSIVE, LETHARGY ED Provider: Alistair Riley Discharge Problem: Sepsis, Septic shock, ROBERT (acute kidney injury), Anticoagulated on Coumadin Patient Disposition: Being Evaluated by Hospitalist Forms Stand Alone Forms: [facility] Prescriptions Prescriptions: No Action cefdinir 300 mg capsule See Rx Instructions .ROUTE .COMPLEX Qty: 60 RF: 6 nitrofurantoin monohyd/m-cryst 100 mg capsule 100 mg PO DAILY Qty: 30 RF: 6 triamcinolone acetonide 0.1 % cream 1 appln TOP BID RF: 0 warfarin 5 mg tablet 5 mg PO SuTuThSa@1600 RF: 0 escitalopram oxalate 20 mg tablet 20 mg PO HS RF: 0 Novolin 70/30 U-100 Insulin 100 unit/mL (70-30) suspension 0 unit subcut UD RF: 0 nystatin 100,000 unit/gram powder 1 appln TOP BID PRN (Reason: BREAKOUTS) RF: 0 atorvastatin 40 mg tablet 40 mg PO QPM RF: 0 (DME) OneTouch Ultra Blue Test Strip strip See Rx Instructions .ROUTE .MEDSUPPLY Qty: 10 RF: 0 allopurinol 100 mg Tablet 100 mg PO BID RF: 0 ascorbic acid (vitamin C) 250 mg Tablet 250 mg PO TID RF: 0 ropinirole 1 mg Tablet 1 mg PO QID RF: 0 furosemide 40 mg Tablet 40 mg PO BID RF: 0 gabapentin 800 mg Tablet 800 mg PO BID RF: 0 ferrous gluconate 324 mg (38 mg iron) Tablet 324 mg PO DAILY RF: 0 multivitamin Tablet 1 tab PO QAM RF: 0 smyzhdvwy-H5-vvV21-algal oil [Metanx (algal oil)] 3 mg-35 mg-2 mg -90.314 mg Capsule 1 cap PO BID RF: 0 pantoprazole 40 mg Tablet,Delayed Release (Dr/Ec) 40 mg PO DAILY RF: 0 magnesium oxide 400 mg (241.3 mg magnesium) Tablet 400 mg PO BID RF: 0 nystatin-triamcinolone 100,000-0.1 unit/g-% Cream 1 dose Topical BID PRN (Reason: BREAKOUTS) RF: 0 insulin regular human 100 unit/mL solution 0 unit subcut UD RF: 0 baclofen 10 mg tablet 5 mg PO UD RF: 0 warfarin [Coumadin] 5 mg Tablet 7.5 mg PO MOWEFR@1600 RF: 0 cyclobenzaprine 10 mg tablet 15 mg PO HS RF: 0 hyoscyamine sulfate 0.125 mg tablet 0.125 mg PO DAILY RF: 0 Uro-MP 118-10-40.8-36 mg capsule 2 cap PO DAILY RF: 0 tizanidine 4 mg tablet 4 mg PO BID RF: 0 potassium chloride 10 mEq tablet extended release 10 meq PO BID RF: 0 spironolactone [Aldactone] 25 mg tablet 25 mg PO DAILY RF: 0 metformin [Glucophage] 1,000 mg tablet 1,000 mg PO BID RF: 0 Lactobacillus acidoph-L.bulgar [Floranex] 1 million cell tablet 1 tab PO BID RF: 0 Referrals Referrals: Wilder Stanford MD [Primary Care Provider] - Discharge Problem: Sepsis Qualifiers: Sepsis type: sepsis due to unspecified organism Sepsis acute organ dysfunction status: with acute organ dysfunction Severe sepsis acute organ dysfunction type: acute renal failure Acute renal failure type: unspecified Severe sepsis shock status: with septic shock Qualified Code(s): A41.9 - Sepsis, unspecified organism
[2020-03-16 22:23] LABS: iSTAT Creatinine 2.4 mg/dl (0.6-1.3); iSTAT Hemoglobin 10.9 g/dl (14.0-18.0); iSTAT Ionized Calcium 1.08 mmol/l (1.12-1.32)
[2020-03-16 22:31] LABS: Basophils # (auto) 0.03 K/uL (0-0.2); Basophils % (auto) 0.2 %; Eosinophils # (auto) 0.38 K/uL (0-0.5); Eosinophils % (auto) 2.1 %; Hematocrit (blood only) 32.7 % (42-52); Hemoglobin 10.3 g/dL (14.0-18.0); Immature Granulocytes # (auto) 0.08 K/uL (0.00-0.02); Immature Granulocytes % (auto) 0.5 %; Lymphocytes # (auto) 2.15 K/uL (1.2-3.4); Lymphocytes % (auto) 12.1 %; Mean Corpuscular Hemoglobin 28.9 pg (25-34); Mean Corpuscular Hgb Conc 31.5 g/dL (32-36); Mean Corpuscular Volume 91.6 fL (80-100); Mean Platelet Volume 9.4 fL (7.4-10.4); Monocytes # (auto) 0.91 K/uL (0.11-0.59); Monocytes % (auto) 5.1 %; Platelet Count 266 K/uL (130-400); RDW Coefficient of Variation 18.2 % (11.5-14.5); RDW Standard Deviation 61.5 fL (36.4-46.3); Red Blood Count 3.57 M/uL (4.7-6.1); White Blood Count 17.75 K/uL (4.8-10.8)
--- NOTE | 2020-03-16 22:33 | XRay Report ---
SINGLE VIEW CHEST CLINICAL HISTORY: Sepsis. FINDINGS: An AP, portable, upright chest radiograph is compared to study dated 10/14/2019. Correlation is made with chest CT dated 05/07/2016. The examination is degraded by portable technique, large body h abitus, apical positioning, and patient rotation. The heart is enlarged. There is prominence of the pulmonary vasculature. Atelectasis is seen at the lung bases. No airspace consolidation or large ple ural effusion is identified. No pneumothorax is seen. The skeletal structures are osteopenic. The bon y thorax is grossly intact. Cerclage wires project over the left lower ribs. IMPRESSION: 1. Cardiomegaly with prominence of the pulmonary vasculature. Correlate clinically for evidence of mi ld congestive failure. 2. No airspace consolidation or large pleural effusion is identified. ACT 112: Negative or not required by law. Electronically signed by: José Wise M.D. 03/16/2020 10:32 PM
[2020-03-16 22:48] LABS: Alanine Aminotransferase 19 U/L (12-78); Albumin Level 2.9 gm/dl (3.4-5.0); Aspartate Aminotransferase 11 U/L (15-37); BUN Creatinine Ratio 8.8 (10-20); Blood Urea Nitrogen 20 mg/dl (7-18); Calcium 8.8 mg/dl (8.5-10.1); Carbon Dioxide 30 mmol/L (21-32); Chloride 100 mmol/L (98-107); Creatinine Clr Calc Pharmacy 56.9 ml/min; Est GFR (African American) 35.2; Est GFR (Non-African American) 30.4; Glucose 131 mg/dl (70-99); Magnesium 1.9 mg/dl (1.8-2.4); Potassium 3.7 mmol/L (3.5-5.1); Sodium 136 mmol/L (136-145)
[2020-03-16 22:53] LABS: Albumin Globulin Ratio 0.6 (0.9-2); Alkaline Phosphatase 62 U/L (45-117); Bilirubin,Total 0.4 mg/dl (0.2-1); Globulin 4.9 gm/dl (2.5-4.0); Total Protein 7.8 gm/dl (6.4-8.2); Troponin I < 0.015 ng/ml (0-0.045)
[2020-03-16 22:54] LABS: INR 2.9 (0.9-1.1); Partial Thromboplastin Ratio 1.8
[2020-03-16] MEDS ORDERED: SODIUM CHLORIDE 0.9% 1000ML 1,000 ML IV SCH (23:00)
[2020-03-16 23:21] LABS: Partial Thromboplastin Time 50.4 Seconds (21.0-31.0)
[2020-03-17 00:05] LABS: Appearance Urine Slightly Cloudy (Clear); Specific Gravity Urine 1.007 (1.000-1.060); Sulfosalicylic Acid Urine Negative (Negative)
[2020-03-17 00:06] LABS: Protein Urine Negative (Negative)
[2020-03-17 00:12] LABS: Bacteria Urine 2+ (Negative); WBC Urine >30 /hpf (0-5)
[2020-03-17 00:14] LABS: Renal Epithelial Cells Urine 0-5 /lpf (0-5)
[2020-03-17] MEDS ORDERED: STAT IV Infusion **Titration per Protocol STA (00:53)
[2020-03-17] MEDS ORDERED: NOREPINEPHRINE BIT INJ 8 MG in DEXTROSE 5% 500 ML IV SCH (01:00)
[2020-03-17] MEDS ORDERED: NYSTATIN/TRIAMCIN CR 15 GM TUBE EXT PRN (02:55)
[2020-03-17] MEDS ORDERED: ICU PROTOCOL FOR HYPERGLYCEMIA PRN (02:55)
[2020-03-17] MEDS ORDERED: NITROGLYCERIN SL 0.4 MG/TAB TAB SL PRN (02:55)
[2020-03-17] MEDS ORDERED: NYSTATIN POWDER 15GM BTL EXT PRN (02:55)
[2020-03-17] MEDS ORDERED: VANCOMYCIN CONSULT ACTIVE PRN (02:55)
[2020-03-17] MEDS ORDERED: ACETAMINOPHEN 325 MG TAB PO PRN (02:55)
[2020-03-17] MEDS ORDERED: ONDANSETRON INJ 2 MG/ML 2 ML VIAL IV PRN (02:55)
[2020-03-17] MEDS ORDERED: CEFEPIME CONSULT ACTIVE PRN (03:08)
[2020-03-17] MEDS ORDERED: PHARMACY GLYCEMIC MGMT CONSULT PRN (03:12)
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
[2020-03-17] MEDS ORDERED: VANCOMYCIN HCL 2,750 MG in SODIUM CHLORIDE 0.9% 500 ML IV ONE (03:30)
[2020-03-17] MEDS: SODIUM CHLORIDE 0.9% 1000ML 1,000 ML IV SCH ×4 (03:41→21:42)
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
[2020-03-17] MEDS ORDERED: PHARMACY GLYCEMIC MGMT CONSULT STA (04:08)
[2020-03-17] MEDS ORDERED: NORMOSOL-R 1,000 ML IV ONE (04:37)
[2020-03-17] MEDS ORDERED: CEFEPIME 2,000 MG in SYRINGE 7.5 ML IV SCH (06:00)
[2020-03-17 06:11] LABS: Basophils # (auto) 0.03 K/uL (0-0.2); Basophils % (auto) 0.2 %; Eosinophils # (auto) 0.34 K/uL (0-0.5); Eosinophils % (auto) 1.8 %; Hemoglobin 11.1 g/dL (14.0-18.0); Immature Granulocytes # (auto) 0.07 K/uL (0.00-0.02); Immature Granulocytes % (auto) 0.4 %; Lymphocytes % (auto) 14.1 %; Mean Corpuscular Hemoglobin 29.2 pg (25-34); Mean Corpuscular Hgb Conc 31.7 g/dL (32-36); Mean Corpuscular Volume 92.1 fL (80-100); Mean Platelet Volume 9.1 fL (7.4-10.4); Monocytes % (auto) 5.2 %; Neutrophils # (auto) 14.98 K/uL (1.4-6.5); Neutrophils % (auto) 78.3 %; Platelet Count 263 K/uL (130-400); RDW Coefficient of Variation 18.5 % (11.5-14.5); White Blood Count 19.12 K/uL (4.8-10.8)
[2020-03-17 06:47] LABS: BUN Creatinine Ratio 9.3 (10-20); Calcium 8.2 mg/dl (8.5-10.1); Est GFR (African American) 35.4; Est GFR (Non-African American) 30.6; Magnesium 1.9 mg/dl (1.8-2.4); Potassium 3.9 mmol/L (3.5-5.1)
--- NOTE | 2020-03-17 06:52 | CT Scan Report ---
CT SCAN OF THE ABDOMEN AND PELVIS WITHOUT CONTRAST CLINICAL HISTORY: Sepsis. Acute renal insufficiency. Hypertension. COMPARISON STUDY: CT scan of pelvis performed October 2019, CT scan the abdomen and pelvis performe d July 2017 TECHNIQUE: CT scan of the abdomen and pelvis was performed from the lung bases to the proximal femurs . Images are reviewed in the axial, sagittal, and coronal planes. IV contrast was not administered fo r this examination. A dose lowering technique was utilized adhering to the principles of ALARA. CT DOSE: 3709.76 mGy.cm FINDINGS: Lower chest: There are basilar atelectatic changes. Postsurgical changes involve the left posterior c hest wall/ribs. Liver: There is hepatic steatosis. No focal masses are visualized. The liver measures 25 cm. Gallblad isabel: Unremarkable. Spleen: Normal in size and attenuation. Pancreas: Unremarkable. Adrenal glands: There is a 19 mm right adrenal adenoma Kidneys: There are 2 right renal calculi, the largest of which measures 4 mm.. There is no hydronephr osis. No ureteral calculi are visualized. Bowel: There are no transition zones to indicate bowel obstruction. There are no findings to indicate acute diverticulitis. There is no evidence of acute appendicitis. There is mild fecal retention. The re is a left-sided ostomy. Portions of the left colon are not included in the study due to the patien t's very large body habitus. Peritoneum: There is no intraperitoneal free air or abdominal ascites. Vasculature: The abdominal aorta is normal in course and caliber. There is an indwelling IVC filter Adenopathy: None. Pelvic viscera: There is a suprapubic catheter present. Skeletal structures: There is a left ischial decubitus ulcer extending to the ischial tuberosity with secondary bony irregularity. There is an area of myositis ossificans within distal left iliopsoas IMPRESSION: 1. Technically limited study secondary to morbid obesity 2. Hepatomegaly and hepatic steatosis 3. Right-sided nephrolithiasis. No hydronephrosis. 4. No evidence of bowel obstruction. No evidence of free air 5. Ischial decubitus ulcer extending to the ischial tuberosity with underlying bony irregularity and sclerosis 6. 19 mm right adrenal adenoma ACT 112: Negative or not required by law. Electronically signed by: Luis Ghosh M.D. 03/17/2020 6:51 AM
[2020-03-17] MEDS: INSULIN ASPART 100 UNITS/ML 3 ML PEN SC SCH ×4 (07:54→20:23)
[2020-03-17] MEDS: INSULIN HUMAN NPH SC SCH ×2 (07:55→16:57)
[2020-03-17] MEDS: DOCUSATE SODIUM 100 MG CAP PO SCH ×2 (07:57→20:16)
[2020-03-17] MEDS: FERROUS GLUCONATE 324 MG TAB PO SCH (07:57)
[2020-03-17] MEDS: TRIAMCINOLONE ACET 0.1% CR 15 GM TUBE TOP SCH ×2 (07:58→21:10)
[2020-03-17] MEDS: MAGNESIUM OXIDE 400 MG TAB PO SCH ×2 (07:58→20:19)
[2020-03-17] MEDS: LACTOBACILLUS ACIDOPHILUS (FLORANEX) TAB PO SCH ×2 (07:58→20:17)
[2020-03-17] MEDS: POLYETHYLENE (MIRALAX) 17 GM PACK PO SCH (07:59)
[2020-03-17] MEDS: MULTIVITAMIN TAB PO SCH (08:03)
[2020-03-17] MEDS: ASCORBIC ACID 500 MG TAB PO SCH ×3 (08:04→20:18)
[2020-03-17] MEDS: GABAPENTIN 800 MG TAB PO SCH ×2 (08:04→20:18)
[2020-03-17] MEDS: ROPINIROLE HCL 1 MG TABLET PO SCH ×4 (08:04→20:19)
[2020-03-17] MEDS: PANTOprazole 40 MG TAB PO SCH (08:04)
[2020-03-17] MEDS: TIZANIDINE HCL 4 MG TABLET PO SCH ×2 (08:05→20:18)
[2020-03-17] MEDS: allopurinoL 100 MG TAB PO SCH ×2 (08:05→20:19)
[2020-03-17] MEDS ORDERED: PERFLUTREN LIPID MICROSPHERE (DEFINITY) IV ONE (08:48)
--- NOTE | 2020-03-17 09:28 | Pharmacy Report ---
Glycemic Control Consultation - Date of Service March 17, 2020 - Scope Scope: Glycemic Pharmacist consulted for glycemic control and to write orders per [facility] inpatient glycemic control protocol. - Objective Weight: 170.7 kg Accuchecks BSG (last 24hrs): 03/16/20 03/16/20 03/17/20 22:11 22:11 06:02 Glucose 131 H 119 H POC Glucose (other) 139 H Laboratory Data (last 24hrs): 03/16/20 03/17/20 22:11 06:02 Potassium 3.7 3.9 Carbon Dioxide 30 30 Anion Gap 6.0 5.0 Creatinine 2.26 H 2.25 H Est Cr Clr Drug Dosing 56.9 56.0 - Recent Pertinent Medications Outpatient Anti-diabetic Regimen: * Novoling 70/30 88 units SQ QAM, 78 units SQ QPM * Regular insulin sliding scale * Metformin 1000mg PO BID * A1c pending Risk Factors for Insulin Resistance: * Infection: UTI sepsis, IV Cefepime & Vancomycin * Pressors: Norepinephrine * Diet: Type 2 DM - Assessment & Plan Assessment & Plan: ASSESSMENT: * 59 year old male admitted with septic shock secondary to complicated UTI, hx pseudomonas resistant UTI, on IV antibiotics. * PMH significant for quadriplegia, type 2 diabetic, A1c pending. * Outpatient regimen is premixed basal/prandial insulin of Novolin 70/30 mix insulin. * Pre-mixed insulin is difficult to titrate since it is already in a fixed distribution of basal:prandial insulin. Continuing pre-mixed insulin for admission typically lead to hypoglycemia d/t changing PO status but rapid acting insulin is unable to be held. * Home regimen will be held for admission per pharmacy consult. Will utilize recommended regimen of SQ basal bolus insulin regimen with NPH (for easier transition back to Novolin 70/30) + NovoLog (CF+CR). * Will begin with about half of TDD of insulin and titrate up as PO consumption advances. * ADA & AACE recommend a goal blood sugar range 140-180 mg/dl for the majority of critically ill & non-critically ill patients. However, more stringent targets may be selected in individual cases. Will utilize more stringent goal of 110-140mg/dl based on patient age & comorbidities. Additionally, tighter glycemic control is warranted to facilitate wound/infection healing. PLAN FOR INPATIENT GLYCEMIC CONTROL: * Holding outpatient oral diabetes medications * Basal insulin * NPH 30-40 units SQ BID * Bolus insulin * NovoLog per scale ACHS or Q6hrs while NPO * Goal Range: Low 110 mg/dL - High 140 mg/dL * Correction Factor: 15 mg/dL/unit * Nutritional / Prandial insulin per carb ratio of 1 unit per 5 grams CHO consumed * Please note that the plan above was derived based on current level of insulin resistance and hospital stress. These recommendations are appropriate for inpatient admission only. Plan of care upon discharge will need to be reassessed to avoid potential outpatient hypo/hyperglycemia. Thank you.
--- NOTE | 2020-03-17 11:42 | Pharmacy Report ---
Pharmacy Abx Initial Consult - Date of Service March 17, 2020 - Pharmacy Dosing Scope Date of Consult: 03/17/20 Consultation requested by: Dr. Edmond Pharmacy is consulted to initiate VANCOMYCIN & CEFEPIME IV dosing therapy, order appropriate labs and adjust drug dose/frequency. - Subjective The patient is a 59 year old M admitted on 03/17/20 00:42. - Objective Height: 5 ft 11 in Weight: 170.7 kg Vital Signs (Past 12hrs): Vital Signs Temp Pulse Pulse Resp BP BP Pulse Ox 03/17/20 08:35 36.7 C 03/17/20 08:30 114 H 17 109/56 L 96 03/17/20 08:15 118 H 10 L 139/69 99 03/17/20 08:00 113 H 19 114/57 L 97 03/17/20 07:46 124 H 23 99/71 L 96 03/17/20 07:31 131 H 22 105/55 L 99 03/17/20 07:15 123 H 16 110/56 L 95 03/17/20 07:01 121 H 16 109/53 L 99 03/17/20 06:30 122 H 15 93/51 L 98 03/17/20 06:15 123 H 20 96/49 L 96 03/17/20 06:00 125 H 22 107/51 L 93 03/17/20 05:46 123 H 26 H 138/61 96 03/17/20 05:30 121 H 19 96/55 L 96 03/17/20 05:15 122 H 17 118/70 95 03/17/20 05:00 116 H 15 164/77 H 96 03/17/20 04:45 119 H 19 114/60 96 03/17/20 04:30 119 H 24 122/61 99 03/17/20 04:15 117 H 15 130/64 98 03/17/20 04:00 116 H 20 119/62 97 03/17/20 03:45 119 H 19 146/73 H 97 03/17/20 03:30 116 H 22 113/64 98 03/17/20 03:15 115 H 14 147/67 H 93 03/17/20 03:02 36.7 C 108 H 14 157/78 H 97 03/17/20 02:56 36.7 C 113 H 19 71/41 L 99 03/17/20 01:24 104 H 25 H 191/74 H 89 L 03/17/20 01:18 66 18 177/86 H 96 03/17/20 01:01 97 H 15 03/17/20 01:00 96 H 14 68/37 L 03/17/20 00:47 99 H 16 61/40 L 98 03/17/20 00:45 99 H 17 56/35 L 03/17/20 00:30 102 H 20 03/17/20 00:15 111 H 18 97/47 L 03/17/20 00:03 111 H 21 87/46 L 03/17/20 00:00 112 H 16 78/48 L 03/16/20 23:45 104 H 23 104/51 L Lab Results (24hrs): Laboratory Tests (24 Hours) 03/17/20 03/17/20 03/17/20 06:02 06:02 06:02 WBC 19.12 H Neut # (Auto) 14.98 H Creatinine 2.25 H Est Cr Clr Drug Dosing 56.0 Procalcitonin 0.14 03/16/20 03/16/20 22:11 22:11 WBC 17.75 H Neut # (Auto) 14.20 H Creatinine 2.26 H Est Cr Clr Drug Dosing 56.9 Procalcitonin Micro Results: 03/16/20 22:55 Urine Culture - Pending Urine,Indwelling Cath 03/16/20 22:11 Aerobic Blood Culture - Pending Blood Anaerobic Blood Culture - Pending 03/16/20 22:11 Aerobic Blood Culture - Pending Blood Anaerobic Blood Culture - Pending - Risk Factors for Resistance * Chronic urine pseudomonas colonization * Antimicrobial use within the last 90 days: Macrobid, Cipro, Cefdinir - Assessment & Plan Assessment 59 year old M admitted with severe sepsis, likely urosepsis. Patient is morbidly obese, partial quadriplegic with a complex PMH including asymptomatic bacteriuria. Renal function significantly elevated from baseline (baseline SCr ~1.25, current SCr 2.25). Plan VANCOMYCIN & CEFEPIME for treatment of UROSEPSIS Vancomycin IV * Estimated PK Parameters: Vd 0.54L/kg, Edy 0.046 hr-1, t1/2 ~15 hr * Loading dose: 2750mg (15.4 mg/kg) * Maintenance dose: 2000mg IV (~12 mg/kg) every 18 hours * Goal trough level for UROSEPSIS : 15 to 20 mcg/mL * Trough level is not currently ordered, as renal function will likely change. Will monitor closely and adjust vancomycin as necessary. Pharmacy will continue to follow and will adjust dose/frequency as necessary. Thank you.
--- NOTE | 2020-03-17 12:48 | Electrocardiogram Report ---
Test Reason : Blood Pressure : / mmHG Vent. Rate : 092 BPM Atrial Rate : 092 BPM P-R Int : 162 ms QRS Dur : 140 ms QT Int : 420 ms P-R-T Axes : 082 009 018 degrees QTc Int : 519 ms Poor data quality, interpretation may be adversely affected Normal sinus rhythm Right bundle branch block Possible Inferior infarct , age undetermined Abnormal ECG When compared with ECG of 28-FEB-2020 20:48, QT has lengthened Confirmed by Flip Hutchinson ([id number]) on 03/17/2020 12:48:10 PM Referred By: REFERRED SELF Confirmed By:Flip Hutchinson
--- NOTE | 2020-03-17 12:53 | Electrocardiogram Report ---
Test Reason : Blood Pressure : / mmHG Vent. Rate : 079 BPM Atrial Rate : 079 BPM P-R Int : 230 ms QRS Dur : 136 ms QT Int : 452 ms P-R-T Axes : 095 007 030 degrees QTc Int : 518 ms Sinus rhythm with marked sinus arrhythmia with 1st degree A-V block and Second degree Mobitz type 1 Right bundle branch block Possible Inferior infarct , age undetermined Abnormal ECG When compared with ECG of 16-MAR-2020 21:35, (unconfirmed) OR interval has increased and Mobitz type 1 is present Confirmed by Flip Hutchinson ([id number]) on 03/17/2020 12:52:27 PM Referred By: REFERRED SELF Confirmed By:Flip Hutchinson
--- NOTE | 2020-03-17 14:38 | Critical Care Progress Note ---
Date of Service March 17, 2020 Assessment & Plan (1) Septic shock: Reason Critically Ill: 59-year-old male with history of partial quadriplegia and recent UTI presents to the ICU with septic shock requiring vasopressors Neuro - [facility] ICU: Negative Cardiac - Shockimproving -Troponin negative, sinus rhythm with right bundle branch block consistent with prior EKG studies -Random cortisol adequate -No history of neurogenic hypotension -CT abdomen unremarkable -H&H stable -Initially improved with IV fluid resuscitation however became hypotensive with systolics in the 60s once infusion was complete, now requiring levo drip at low-dose -Continue broad-spectrum antibiotics -Weaning pressors as tolerated Respiratory - Hypoxic respiratory insufficiencyimproving GI - Progress diet as tolerated Ostomy with pink mucosa appears to be functioning wellmild constipation on CT abdomen, will start bowel regimen RENAL/LYTES - ROBERT on CKDcreatinine 2.5 with baseline around 1.2 -Most likely prerenal/ATN in the setting of hypotension as patient displays systolic blood pressure in the 60s -Now on Levophed drip for map management, bolused 3 L crystalloid in the ED, will continue continuous IV fluid resuscitation -Monitor strict I's and O's -Avoid nephrotoxins and renally adjust medications -Trend with routine BMPs ENDO - DM type IIinsulin-dependent -Started on Lantus/sliding scale -Hemoglobin A1c pending -ICU hyperglycemic protocol Follow-up TSH HEME - H&H stable, monitor routine CBCs -Long-term anticoagulation on Coumadin ID - Sepsispatient presents with fever, hypotension, leukocytosis, and lactic acidosis -History of osteomyelitis and chronic sacral wound -CT pelvis pending read -Wound nurse consult -UTI with resistant Pseudomonas infection -Urine culture from previous admission with sensitivities, started on cefepime and vancomycin -Blood cultures, urine culture, MRSA swab pending LINES/IV ACCESS - Peripheral IVs DVT PROPHYLAXIS - SCDs, 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 Discussed case and the prognosis with who was present at bedside Review of Systems Review of Systems: Other (Patient sleeping, I discussed the case with the patient's ) Physical Exam Physical Exam: General: Sleeping nontoxic. Skin: Warm, dry, Head: Atraumatic Ears, nose, mouth and throat: airway patent Cardiovascular: Normal peripheral perfusion Respiratory: no respiratory distress Gastrointestinal: Non distended Musculoskeletal: No deformity Results & Data Results & Data ([facility]) Vital Signs (Past 12 Hours) Vital Signs Temp Pulse Pulse Resp BP BP Pulse Ox 03/17/20 14:00 95 H 16 95/57 L 03/17/20 13:30 99 H 16 94/53 L 96 03/17/20 13:00 97 H 15 88/51 L 97 03/17/20 12:31 99 H 9 L 97 03/17/20 12:30 99 H 17 96/53 L 97 03/17/20 12:01 102 H 13 96 03/17/20 12:00 104 H 19 95/69 L 97 03/17/20 11:31 109 H 16 82/45 L 94 03/17/20 11:30 111 H 17 95 03/17/20 11:26 111 H 19 94/58 L 95 03/17/20 11:00 114 H 14 94/58 L 96 03/17/20 10:31 107 H 19 97 03/17/20 10:30 107 H 19 105/52 L 96 03/17/20 10:15 107 H 17 95/49 L 96 03/17/20 10:00 110 H 15 97/51 L 03/17/20 09:45 111 H 11 L 92/48 L 03/17/20 09:31 120 H 8 L 97 03/17/20 09:30 117 H 10 L 91/45 L 97 03/17/20 09:15 121 H 16 102/44 L 97 03/17/20 09:01 124 H 10 L 97 03/17/20 09:00 121 H 13 88/43 L 98 03/17/20 08:45 116 H 15 119/64 97 03/17/20 08:35 36.7 C 03/17/20 08:30 114 H 17 109/56 L 96 03/17/20 08:15 118 H 10 L 139/69 99 03/17/20 08:00 113 H 19 114/57 L 97 07/12/20 07:46 124 H 23 99/71 L 96 03/17/20 07:31 131 H 22 105/55 L 99 03/17/20 07:15 123 H 16 110/56 L 95 03/17/20 07:01 121 H 16 109/53 L 99 03/17/20 06:30 122 H 15 93/51 L 98 03/17/20 06:15 123 H 20 96/49 L 96 03/17/20 06:00 125 H 22 107/51 L 93 03/17/20 05:46 123 H 26 H 138/61 96 03/17/20 05:30 121 H 19 96/55 L 96 03/17/20 05:15 122 H 17 118/70 95 03/17/20 05:00 116 H 15 164/77 H 96 03/17/20 04:45 119 H 19 114/60 96 03/17/20 04:30 119 H 24 122/61 99 03/17/20 04:15 117 H 15 130/64 98 03/17/20 04:00 116 H 20 119/62 97 03/17/20 03:45 119 H 19 146/73 H 97 03/17/20 03:30 116 H 22 113/64 98 03/17/20 03:15 115 H 14 147/67 H 93 03/17/20 03:02 36.7 C 108 H 14 157/78 H 97 03/17/20 02:56 36.7 C 113 H 19 71/41 L 99 Coding Level of Care Code Critical Care ea addt'l 30 min Diagnoses Septic shock A41.9; R65.21 Sepsis A41.9; R65.21; N17.9 Acute renal failure type: unspecified Sepsis acute organ dysfunction status: with acute organ dysfunction Sepsis type: sepsis due to unspecified organism Severe sepsis acute organ dysfunction type: acute renal failure Severe sepsis shock status: with septic shock ROBERT (acute kidney injury) N17.9 Anticoagulated on Coumadin Z79.01 Quadriplegia G82.50 Anemia D64.9 Anemia type: unspecified type UTI (urinary tract infection) N39.0 DM type 2 (diabetes mellitus, type 2) E11.9 Sleep apnea G47.30 Kidney disease N28.9 Time Spent (min) 30 Comment I have personally spent 30 minutes of critical care time in the direct management of this patient. This is a life/limb threatening event. This inclu patric time spent evaluating patient, direct bedside care, chart review, placing orders, interpretation of diagnostic studies, discussion with consultants, patient, and/or family members regarding treatment decisions, as well as other required patient management activities. This time is exclusive of all separately billable procedures, and teaching time and separate from and in addition to any other critical care service time. (1) Sepsis Acute renal failure type: unspecified Sepsis acute organ dysfunction status: with acute organ dysfunction Sepsis type: sepsis due to unspecified organism Severe sepsis acute organ dysfunction type: acute renal failure Severe sepsis shock status: with septic shock Qualified Code(s): A41.9 - Sepsis, unspecified organism; R65.21 - Severe sepsis with septic shock; N17.9 - Acute kidney failure, unspecified (2) Anemia Anemia type: unspecified type Qualified Code(s): D64.9 - Anemia, unspecified
[2020-03-17] MEDS: WARFARIN SOD 5 MG TAB PO SCH (16:21)
[2020-03-17] MEDS: CEFEPIME 2,000 MG in SYRINGE 7.5 ML IV SCH (17:00)
--- NOTE | 2020-03-17 17:03 | Communication Note ---
Date of Service: March 17, 2020 The patient was seen and examined in ICU He is quadriplegic and admitted with severe sepsis likely secondary to complicated UTI He has been feeling a little better since admission Denies any fever and/or chills Denies any other symptoms On examination Stable in ICU Blood pressure remains in the lower side at 97/54 Chest-decreased breath sounds without any crackles mainly due to thick chest wall Heart-S1-S2, regular abdomen Abdomen-distended, soft, nontender, bowel sounds present Extremities-1+ edema bilaterally [employer]-he is paraplegic secondary to trauma with neurogenic bladder His labs and imaging studies reviewed Has severe sepsis with hypotension secondary to complicated UTI/infected decubitus ulcer Has been getting intravenous cefepime and vancomycin-we will continue until culture results are back Low blood pressure , required very small dose of levo which has been discontinued Now getting intravenous fluid with reasonable blood pressure Other medical conditions remain stable and will be treated accordingly The patient will be seen by Dr. Villatoro from tomorrow Dr Deondre Juarez
[2020-03-17] MEDS ORDERED: VANCOMYCIN HCL 2,000 MG in SODIUM CHLORIDE 0.9% 500 ML IV SCH (20:00)
[2020-03-17] MEDS: ESCITALOPRAM OXALATE 20 MG TAB PO SCH (20:16)
[2020-03-17] MEDS: ATORVASTATIN 40 MG TAB PO SCH (20:17)
[2020-03-18 04:41] LABS: Basophils # (auto) 0.02 K/uL (0-0.2); Basophils % (auto) 0.2 %; Eosinophils # (auto) 0.33 K/uL (0-0.5); Eosinophils % (auto) 2.6 %; Hematocrit (blood only) 30.1 % (42-52); Hemoglobin 9.6 g/dL (14.0-18.0); Immature Granulocytes # (auto) 0.03 K/uL (0.00-0.02); Immature Granulocytes % (auto) 0.2 %; Lymphocytes # (auto) 1.84 K/uL (1.2-3.4); Lymphocytes % (auto) 14.4 %; Mean Corpuscular Hemoglobin 29.4 pg (25-34); Mean Corpuscular Hgb Conc 31.9 g/dL (32-36); Mean Corpuscular Volume 92.3 fL (80-100); Mean Platelet Volume 8.7 fL (7.4-10.4); Monocytes # (auto) 0.64 K/uL (0.11-0.59); Neutrophils # (auto) 9.93 K/uL (1.4-6.5); Neutrophils % (auto) 77.6 %; Platelet Count 220 K/uL (130-400); RDW Coefficient of Variation 18.4 % (11.5-14.5); RDW Standard Deviation 62.3 fL (36.4-46.3); Red Blood Count 3.26 M/uL (4.7-6.1); White Blood Count 12.79 K/uL (4.8-10.8)
[2020-03-18 04:49] LABS: INR 3.1 (0.9-1.1); Prothrombin Time 30.7 Seconds (9.0-12.0)
[2020-03-18 05:32] LABS: BUN Creatinine Ratio 13.3 (10-20); Calcium 7.8 mg/dl (8.5-10.1); Creatinine Clr Calc Pharmacy 91.4 ml/min; Est GFR (African American) 63.9; Est GFR (Non-African American) 55.2; Potassium 4.6 mmol/L (3.5-5.1)
[2020-03-18] MEDS: SODIUM CHLORIDE 0.9% 1000ML 1,000 ML IV SCH ×3 (05:54→09:49)
[2020-03-18] MEDS: CEFEPIME 2,000 MG in SYRINGE 7.5 ML IV SCH ×2 (05:54→18:22)
[2020-03-18 06:29] LABS: Estimated Average Glucose 154 mg/dl
[2020-03-18] MEDS: INSULIN HUMAN NPH SC SCH ×2 (08:01→17:11)
[2020-03-18] MEDS: INSULIN ASPART 100 UNITS/ML 3 ML PEN SC SCH ×4 (08:06→21:23)
[2020-03-18] MEDS: MAGNESIUM OXIDE 400 MG TAB PO SCH ×2 (08:08→20:40)
[2020-03-18] MEDS: FERROUS GLUCONATE 324 MG TAB PO SCH (08:08)
[2020-03-18] MEDS: ROPINIROLE HCL 1 MG TABLET PO SCH ×4 (08:08→20:40)
[2020-03-18] MEDS: MULTIVITAMIN TAB PO SCH (08:08)
[2020-03-18] MEDS: POLYETHYLENE (MIRALAX) 17 GM PACK PO SCH (08:08)
[2020-03-18] MEDS: GABAPENTIN 800 MG TAB PO SCH ×2 (08:09→20:40)
[2020-03-18] MEDS: allopurinoL 100 MG TAB PO SCH ×2 (08:09→20:40)
[2020-03-18] MEDS: PANTOprazole 40 MG TAB PO SCH (08:09)
[2020-03-18] MEDS: ASCORBIC ACID 500 MG TAB PO SCH ×3 (08:09→20:40)
[2020-03-18] MEDS: TIZANIDINE HCL 4 MG TABLET PO SCH ×2 (08:09→20:40)
[2020-03-18] MEDS: LACTOBACILLUS ACIDOPHILUS (FLORANEX) TAB PO SCH ×2 (08:09→20:39)
[2020-03-18] MEDS: DOCUSATE SODIUM 100 MG CAP PO SCH ×2 (08:09→20:39)
[2020-03-18] MEDS: TRIAMCINOLONE ACET 0.1% CR 15 GM TUBE TOP SCH ×2 (08:10→20:41)
--- NOTE | 2020-03-18 10:20 | Critical Care Progress Note ---
Date of Service March 18, 2020 Assessment & Plan (1) Septic shock: Impression: 59-year-old male status post mental cord injury admitted with sepsis likely secondary to urinary source. He is now off pressors and doing better. Recommendations: 1. Urosepsis with septic shock: Patient's white blood cell count has decreased down to 12,000 yesterday. He is currently on cefepime and vancomycin. Will discontinue vancomycin and continue cefepime pending culture and sensitivity from the gram-negative rods in his urine. Pressures resolved and he is off vasopressor agents. He is eligible to transfer to the floor at this point time. 2. Acute kidney injury: Likely secondary to septic shock. This appears significantly improved. Continue to follow. 3. Elevated INR: Patient is anticoagulated due to history of recurrent DVTs. Pharmacy dosing Coumadin. Target INR 2-3. 4. Increase activity as tolerated. 5. Sacral decubitus: Healing well. Wound care management. We will sign off once the patient leaves the ICU. Please contact us if we can be of additional pulmonary critical care assistance. (2) ROBERT (acute kidney injury): (3) Anticoagulated on Coumadin: (4) Quadriplegia: Admission and Anticipated Discharge Date Admission Date: March 17, 2020 Subjective Patient seen and examined. EMR reviewed. Discussed with prior critical care attending as well as ICU nurse at bedside. The patient is doing well clinically. He has been off of vasopressor agents since yesterday afternoon. He reports no chest pain or shortness of breath. No abdominal pain. He is tolerating a diet. No new complaints. Review of Systems Review of Systems: All systems reviewed & are unremarkable except as noted in HPI & below Physical Exam Physical Exam: General: Sleeping nontoxic. Skin: Warm, dry, Head: Atraumatic Ears, nose, mouth and throat: airway patent Cardiovascular: Normal peripheral perfusion Respiratory: no respiratory distress Gastrointestinal: Non distended Musculoskeletal: No deformity Results & Data Results & Data ([facility]) Vital Signs (Past 12 Hours) Vital Signs Temp Pulse Resp BP Pulse Ox 03/18/20 09:00 106 H 19 121/62 96 03/18/20 08:00 107 H 03/18/20 07:20 37.1 C 03/18/20 07:00 102 H 18 117/61 96 03/18/20 05:30 100 H 14 114/61 86 L 03/18/20 05:00 103 H 16 118/64 97 03/18/20 04:30 103 H 16 140/71 97 03/18/20 04:00 37 C 103 H 19 148/72 H 97 03/18/20 03:30 101 H 17 122/57 L 96 03/18/20 03:00 100 H 16 135/66 96 03/18/20 02:30 100 H 20 120/63 96 03/18/20 02:00 37 C 103 H 15 131/66 96 03/18/20 01:30 105 H 7 L 130/64 98 03/18/20 01:00 106 H 17 133/69 97 03/18/20 00:30 107 H 18 101/51 L 86 L 03/18/20 00:01 36.9 C 108 H 22 121/57 L 96 03/17/20 23:30 108 H 22 125/61 96 03/17/20 23:00 112 H 17 121/61 98 03/17/20 22:30 109 H 14 121/65 96 Laboratory Results 03/18/20 04:18 03/18/20 04:18 Urine culture growing 2 gram-negative rods, speciation and sensitivities pending Diagnostic Findings No new imaging Coding Level of Care Code 85194 Subseq Hosp Care Lvl 3 Diagnoses Septic shock A41.9; R65.21 ROBERT (acute kidney injury) N17.9 Anticoagulated on Coumadin Z79.01 Quadriplegia G82.50
--- NOTE | 2020-03-18 11:29 | Hospitalist Progress Note ---
Date of Service March 18, 2020 Assessment & Plan (1) Severe sepsis: Severe sepsis: Admitted with hypotension, tachycardia, As of infection a complicated UTI secondary to chronic indwelling suprapubic catheter, Has infected decub in ulcer Patient is started on cefepime and vancomycin Urine cultures growing gram-negative bacilli Hypotension Due to sepsis, required IV pressors consistently with ICU monitoring IV pressors weaned off BP remains stable Patient will be deferred out from ICU Type 2 diabetes Insulin sliding scale History of DVT On Coumadin INR therapeutic code Status: Full code Admission and Anticipated Discharge Date Admission Date: March 17, 2020 Subjective Patient seen and examined, awake and alert, conversing appropriately, No fever or chills, Vitals stable Tolerating diet, no nausea vomiting or abdominal pain Martinez draining clear yellow urine Review of Systems Review of Systems: All systems reviewed & are unremarkable except as noted in HPI & below Physical Exam Constitutional: WD/WN, vitals as above no acute distress Eyes: PERRL, conjunctivae normal, anicteric sclerae ENMT: external ear and nose normal, oropharynx normal Neck: trachea midline, no thyromegaly Respiratory: normal respiratory effort, lungs clear to auscultation Cardiovascular: Rate/Rhythm: regular rate and regular rhythm Gastrointestinal (Abdomen): Percussion/Palpation: abdomen soft; abdomen nontender Musculoskeletal: pt is quadriplegic Neurologic: Patient is a quadriplegic Wake and alert, able to answer question, no dysarthria Psychiatric: A+Ox3, euthymic affect Results & Data Results & Data ([facility]) Vital Signs (Past 12 Hours) Vital Signs Temp Pulse Resp BP Pulse Ox 03/18/20 09:00 106 H 19 121/62 96 03/18/20 08:00 107 H 03/18/20 07:20 37.1 C 03/18/20 07:00 102 H 18 117/61 96 03/18/20 05:30 100 H 14 114/61 86 L 03/18/20 05:00 103 H 16 118/64 97 03/18/20 04:30 103 H 16 140/71 97 03/18/20 04:00 37 C 103 H 19 148/72 H 97 03/18/20 03:30 101 H 17 122/57 L 96 03/18/20 03:00 100 H 16 135/66 96 03/18/20 02:30 100 H 20 120/63 96 03/18/20 02:00 37 C 103 H 15 131/66 96 03/18/20 01:30 105 H 7 L 130/64 98 03/18/20 01:00 106 H 17 133/69 97 03/18/20 00:30 107 H 18 101/51 L 86 L 03/18/20 00:01 36.9 C 108 H 22 121/57 L 96 03/17/20 23:30 108 H 22 125/61 96
[2020-03-18] MEDS ORDERED: WARFARIN SOD 5 MG TAB PO ONE (16:00)
[2020-03-18] MEDS ORDERED: WARFARIN SOD 7.5 MG TAB PO SCH (16:00)
[2020-03-18] MEDS: BACLOFEN 10 MG TAB PO SCH ×2 (18:22→21:24)
[2020-03-18] MEDS: ATORVASTATIN 40 MG TAB PO SCH (20:39)
[2020-03-18] MEDS: ESCITALOPRAM OXALATE 20 MG TAB PO SCH (20:39)
[2020-03-18] MEDS: CYCLOBENZAPRINE HCL 5 MG TAB PO SCH (21:24)
[2020-03-19] MEDS: CEFEPIME 2,000 MG in SYRINGE 7.5 ML IV SCH (05:30)
[2020-03-19] MEDS: HYOSCYAMINE SULFATE 0.125 MG TAB PO SCH (07:38)
[2020-03-19] MEDS: BACLOFEN 10 MG TAB PO SCH ×3 (07:38→21:24)
[2020-03-19] MEDS: ROPINIROLE HCL 1 MG TABLET PO SCH ×4 (07:39→21:22)
[2020-03-19] MEDS: MAGNESIUM OXIDE 400 MG TAB PO SCH ×2 (07:39→21:23)
[2020-03-19] MEDS: allopurinoL 100 MG TAB PO SCH ×2 (07:39→21:23)
[2020-03-19] MEDS: TIZANIDINE HCL 4 MG TABLET PO SCH ×2 (07:40→21:24)
[2020-03-19] MEDS: DOCUSATE SODIUM 100 MG CAP PO SCH ×2 (07:40→21:27)
[2020-03-19] MEDS: ASCORBIC ACID 500 MG TAB PO SCH ×3 (07:40→21:23)
[2020-03-19] MEDS: PANTOprazole 40 MG TAB PO SCH (07:40)
[2020-03-19] MEDS: GABAPENTIN 800 MG TAB PO SCH ×2 (07:40→21:23)
[2020-03-19] MEDS: MULTIVITAMIN TAB PO SCH (07:41)
[2020-03-19] MEDS: FERROUS GLUCONATE 324 MG TAB PO SCH (07:41)
[2020-03-19] MEDS: TRIAMCINOLONE ACET 0.1% CR 15 GM TUBE TOP SCH ×2 (07:42→21:25)
[2020-03-19] MEDS: INSULIN ASPART 100 UNITS/ML 3 ML PEN SC SCH ×4 (08:30→21:25)
[2020-03-19] MEDS: INSULIN HUMAN NPH SC SCH ×2 (08:32→17:41)
[2020-03-19 08:52] LABS: Basophils # (auto) 0.02 K/uL (0-0.2); Basophils % (auto) 0.2 %; Eosinophils % (auto) 2.6 %; Hematocrit (blood only) 30.8 % (42-52); Hemoglobin 9.7 g/dL (14.0-18.0); Immature Granulocytes # (auto) 0.05 K/uL (0.00-0.02); Immature Granulocytes % (auto) 0.4 %; Lymphocytes # (auto) 1.37 K/uL (1.2-3.4); Mean Corpuscular Hemoglobin 28.8 pg (25-34); Mean Corpuscular Hgb Conc 31.5 g/dL (32-36); Mean Corpuscular Volume 91.4 fL (80-100); Mean Platelet Volume 8.8 fL (7.4-10.4); Monocytes # (auto) 0.82 K/uL (0.11-0.59); Monocytes % (auto) 7.2 %; Neutrophils # (auto) 8.83 K/uL (1.4-6.5); Neutrophils % (auto) 77.6 %; Platelet Count 231 K/uL (130-400); RDW Coefficient of Variation 18.1 % (11.5-14.5); RDW Standard Deviation 60.3 fL (36.4-46.3); Red Blood Count 3.37 M/uL (4.7-6.1); White Blood Count 11.39 K/uL (4.8-10.8)
[2020-03-19 09:04] LABS: INR 2.5 (0.9-1.1); Prothrombin Time 25.3 Seconds (9.0-12.0)
[2020-03-19 09:32] LABS: BUN Creatinine Ratio 11.9 (10-20); Calcium 8.9 mg/dl (8.5-10.1); Creatinine Clr Calc Pharmacy 132.6 ml/min; Est GFR (African American) 100.4; Est GFR (Non-African American) 86.7; Magnesium 2.2 mg/dl (1.8-2.4); Potassium 4.6 mmol/L (3.5-5.1)
[2020-03-19] MEDS: LACTOBACILLUS ACIDOPHILUS (FLORANEX) TAB PO SCH ×2 (09:35→21:23)
[2020-03-19] MEDS: POLYETHYLENE (MIRALAX) 17 GM PACK PO SCH (09:35)
[2020-03-19] MEDS: WARFARIN SOD 5 MG TAB PO SCH (16:34)
--- NOTE | 2020-03-19 17:30 | Hospitalist Progress Note ---
Date of Service March 19, 2020 Assessment & Plan (1) Severe sepsis: Severe sepsis: Has resolved, vitals stable no fever or chills white count normalized Admitted with urosepsis, met criteria: Hypotension, tachycardia, lactic acidosis Source of infection a complicated UTI secondary to chronic indwelling suprapubic catheter, Patient required ICU admission, was on pressors briefly For out of ICU yesterday 03/18/2020 Has been doing very well since Urine culture growing Pseudomonas: Sensitive to Ceftazidime Antibiotic changed from cefepime to Ceftazidime 1 gm BID Needs 5 more days of antibiotic to complete total 7 days treatment Blood culture shows no growth\ Ultrasound-guided IV site placed Prescription for antibiotic given to case management to arrange home antibiotic And will get at 4 AM morning dose of IV antibiotic Scheduled to have next dose at home at 4 PM by home health visiting nurse Plan to discharge home tomorrow Hypotension Resolved, stable blood pressure Due to sepsis, required IV pressors consistently with ICU monitoring IV pressors weaned off No episode of hypotension Type 2 diabetes Insulin sliding scale History of DVT On Coumadin INR therapeutic code Status: Full code Disposition: Discharge home tomorrow with home IV antibiotic therapy Admission and Anticipated Discharge Date Admission Date: March 17, 2020 Subjective Patient reports of doing well, no fever or chills, awake and alert oriented conversing appropriately No pain or discomfort Antibiotic changed to Fortaz IV 1 g every 12 as per sensitivity of Pseudomonas culture growth in urine Plan to discharge home tomorrow with home antibiotic Ordered for IV ultrasound-guided line for home antibiotic Plan of care explained to patient and at bedside agreeable Review of Systems Review of Systems: All systems reviewed & are unremarkable except as noted in HPI & below Physical Exam Constitutional: WD/WN, vitals as above no acute distress Eyes: PERRL, conjunctivae normal, anicteric sclerae ENMT: external ear and nose normal, oropharynx normal Neck: trachea midline, no thyromegaly Respiratory: normal respiratory effort, lungs clear to auscultation Cardiovascular: Rate/Rhythm: regular rate and regular rhythm Gastrointestinal (Abdomen): Percussion/Palpation: abdomen soft; abdomen nontender Prepubic catheter present Neurologic: Quadriplegic Psychiatric: A+Ox3, euthymic affect Results & Data Results & Data ([facility]) Vital Signs (Past 12 Hours) Vital Signs Temp Pulse Pulse Resp BP Pulse Ox 03/19/20 15:48 90 03/19/20 15:17 36.4 C L 88 18 118/69 97 03/19/20 11:00 36.3 C L 85 20 122/72 93 03/19/20 08:00 100 H 03/19/20 07:00 36.8 C 92 H 20 155/79 H 97
[2020-03-19] MEDS: CYCLOBENZAPRINE HCL 5 MG TAB PO SCH (21:23)
[2020-03-19] MEDS: ESCITALOPRAM OXALATE 20 MG TAB PO SCH (21:23)
[2020-03-19] MEDS: ATORVASTATIN 40 MG TAB PO SCH (21:24)
[2020-03-20 07:18] VITALS: O2SAT 92
[2020-03-20 07:43] LABS: INR 2.1 (0.9-1.1)
[2020-03-20 08:05] LABS: Creatinine Clr Calc Pharmacy 144.5 ml/min; Est GFR (African American) 108.2; Est GFR (Non-African American) 93.4
[2020-03-20] MEDS: ROPINIROLE HCL 1 MG TABLET PO SCH ×2 (08:28→12:59)
[2020-03-20] MEDS: MAGNESIUM OXIDE 400 MG TAB PO SCH (08:28)
[2020-03-20] MEDS: BACLOFEN 10 MG TAB PO SCH ×2 (08:28→13:00)
[2020-03-20] MEDS: ASCORBIC ACID 500 MG TAB PO SCH ×2 (08:28→13:00)
[2020-03-20] MEDS: LACTOBACILLUS ACIDOPHILUS (FLORANEX) TAB PO SCH (08:28)
[2020-03-20] MEDS: GABAPENTIN 800 MG TAB PO SCH (08:29)
[2020-03-20] MEDS: PANTOprazole 40 MG TAB PO SCH (08:29)
[2020-03-20] MEDS: MULTIVITAMIN TAB PO SCH (08:29)
[2020-03-20] MEDS: TIZANIDINE HCL 4 MG TABLET PO SCH (08:29)
[2020-03-20] MEDS: HYOSCYAMINE SULFATE 0.125 MG TAB PO SCH (08:29)
[2020-03-20] MEDS: FERROUS GLUCONATE 324 MG TAB PO SCH (08:29)
[2020-03-20] MEDS: allopurinoL 100 MG TAB PO SCH (08:29)
[2020-03-20] MEDS: INSULIN ASPART 100 UNITS/ML 3 ML PEN SC SCH ×2 (08:30→13:00)
[2020-03-20] MEDS: INSULIN HUMAN NPH SC SCH (08:34)
[2020-03-20] MEDS: TRIAMCINOLONE ACET 0.1% CR 15 GM TUBE TOP SCH (08:35)
[2020-03-20] MEDS: DOCUSATE SODIUM 100 MG CAP PO SCH (08:39)
[2020-03-20] MEDS: POLYETHYLENE (MIRALAX) 17 GM PACK PO SCH (08:40)
--- NOTE | 2020-03-20 10:28 | Discharge Summary ---
Date of Service March 20, 2020 Admission HPI Per Admitting Provider CHIEF COMPLAINT: Severe sepsis. HISTORY OF PRESENT ILLNESS: This is a 59-year-old male with past medical history significant for quadriplegia secondary to trauma, neurogenic bladder, status post suprapubic catheter, status post colostomy, history of DVT on Coumadin, history of diabetes, on insulin, hypertension, hyperlipidemia, obesity, general osteoarthrosis, gout, iron deficiency anemia, depression who lives at home with his . Today, he was watching movies with his grandkids and , when he was staring and had initial complains of blurred vision and not feeling good and it happens when has dysreflexia, but it was more and he was somewhat confused and not responding. The patient was brought in here. He was hypotensive in the ER, with systolic blood pressure in the 80s. Lactic acid was 2.9. He has chronic pseudomonas colonization of the urine, urine looks positive.Sepsis alert was called in and patient received 3 liters of fluids, blood pressure is still not improved, went to 90, but again dropping into the 60s, so he is going to ICU with norepinephrine drip. In the ER, he was given cefepime. We will continue cefepime and vancomycin. The patient mental status seems to improved. He is currently alert and oriented x3. Denies any cough, no pain, no headache, no nausea. Most of the history got from the , patient recently developed some sacral decubitus ulcer, seems to be stage I to II. Recent COVID test done by PCP is negative. No fevers. Vision is okay. He has some runny nose recently, but that has resolved. No cough. Appetite is okay. Colostomy bag is working okay. No bleeding seen. As per patient has difficulty with meat and mostly on soft diet. Admission Exam Per Admitting Provider Constitutional: WD/WN, vitals as above no acute distress Eyes: PERRL, conjunctivae normal, anicteric sclerae ENMT: external ear and nose normal, oropharynx normal Neck: trachea midline, no thyromegaly Respiratory: normal respiratory effort, lungs clear to auscultation Cardiovascular: regular rate and regular rhythm Gastrointestinal: Percussion/Palpation: abdomen soft; abdomen nontender Prepubic catheter present Neurologic: Quadriplegic Psychiatric: A+Ox3, euthymic affect Principal Diagnosis Severe sepsis with septic shock, complicated UTI associated with suprapubic Martinez catheter Quadriplegia Chronic anticoagulation with Coumadin Acute renal failure on CKD stage III Discharge Exam Constitutional: WD/WN, vitals as above no acute distress Eyes: PERRL, conjunctivae normal, anicteric sclerae ENMT: external ear and nose normal, oropharynx normal Neck: trachea midline, no thyromegaly Respiratory: normal respiratory effort, lungs clear to auscultation Cardiovascular: Rate/Rhythm: regular rate and regular rhythm Gastrointestinal (Abdomen): Percussion/Palpation: abdomen soft; abdomen nontender Prepubic catheter present Neurologic: Quadriplegic Psychiatric: A+Ox3, euthymic affect Discharge Data Allergies Allergy/AdvReac Type Severity Reaction Status Date / Time piperacillin Allergy Intermediate RASH Verified 03/16/20 22:28 Sulfa (Sulfonamide Allergy Intermediate HIVES Verified 03/16/20 22:28 Antibiotics) tazobactam Allergy Intermediate RASH Verified 03/16/20 22:28 aztreonam Allergy Unknown unknown Verified 03/16/20 22:28 codeine Allergy Unknown THROAT Verified 03/16/20 22:28 SWELLS lactose Allergy Unknown GI symptoms Verified 03/16/20 22:28 latex Allergy Unknown welts Verified 03/16/20 22:28 Consultations 03/16/20 22:56 ED Decision to Admit Stat 03/17/20 02:55 Consult Case Management - Discharge Planning Routine Consult Case Management - Discharge Planning Routine Consult Locomotive Driver Routine Ordered Studies 03/17/20 01:38 CT abd pelvis wo con Urgent SINGLE VIEW CHEST CLINICAL HISTORY: Sepsis. FINDINGS: An AP, portable, upright chest radiograph is compared to study dated 10/14/2019. Correlation is made with chest CT dated 05/07/2016. The examination is degraded by portable technique, large body habitus, apical positioning, and patient rotation. The heart is enlarged. There is prominence of the pulmonary vasculature. Atelectasis is seen at the lung bases. No airspace consolidation or large pleural effusion is identified. No pneumothorax is seen. The skeletal structures are osteopenic. The bony thorax is grossly intact. Cerclage wires project over the left lower ribs. IMPRESSION: 1. Cardiomegaly with prominence of the pulmonary vasculature. Correlate clinically for evidence of mild congestive failure. 2. No airspace consolidation or large pleural effusion is identified. ACT 112: Negative or not required by law. Electronically signed by: José Wise M.D. 03/16/2020 10:32 PM Dictated: 03/16/202229 Transcribed: 03/16/202229 CT SCAN OF THE ABDOMEN AND PELVIS WITHOUT CONTRAST CLINICAL HISTORY: Sepsis. Acute renal insufficiency. Hypertension. COMPARISON STUDY: CT scan of pelvis performed October 2019, CT scan the abdomen and pelvis performed July 2017 TECHNIQUE: CT scan of the abdomen and pelvis was performed from the lung bases to the proximal femurs. Images are reviewed in the axial, sagittal, and coronal planes. IV contrast was not administered for this examination. A dose lowering technique was utilized adhering to the principles of ALARA. CT DOSE: 3709.76 mGy.cm FINDINGS: Lower chest: There are basilar atelectatic changes. Postsurgical changes involve the left posterior chest wall/ribs. Liver: There is hepatic steatosis. No focal masses are visualized. The liver measures 25 cm. Gallbladder: Unremarkable. Spleen: Normal in size and attenuation. Pancreas: Unremarkable. Adrenal glands: There is a 19 mm right adrenal adenoma Kidneys: There are 2 right renal calculi, the largest of which measures 4 mm.. There is no hydronephrosis. No ureteral calculi are visualized. Bowel: There are no transition zones to indicate bowel obstruction. There are no findings to indicate acute diverticulitis. There is no evidence of acute appendicitis. There is mild fecal retention. There is a left-sided ostomy. Portions of the left colon are not included in the study due to the patient's very large body habitus. Peritoneum: There is no intraperitoneal free air or abdominal ascites. Vasculature: The abdominal aorta is normal in course and caliber. There is an indwelling IVC filter Adenopathy: None. Pelvic viscera: There is a suprapubic catheter present. Skeletal structures: There is a left ischial decubitus ulcer extending to the ischial tuberosity with secondary bony irregularity. There is an area of myositis ossificans within distal left iliopsoas IMPRESSION: 1. Technically limited study secondary to morbid obesity 2. Hepatomegaly and hepatic steatosis 3. Right-sided nephrolithiasis. No hydronephrosis. 4. No evidence of bowel obstruction. No evidence of free air 5. Ischial decubitus ulcer extending to the ischial tuberosity with underlying bony irregularity and sclerosis 6. 19 mm right adrenal adenoma ACT 112: Negative or not required by law. Electronically signed by: Luis Ghosh M.D. 03/17/2020 6:51 AM Dictated: 03/17/20642 Transcribed: 03/17/20642 Hospital Course (1) Severe sepsis: Severe sepsis: Has resolved, vitals stable no fever or chills white count normalized Admitted with urosepsis, met criteria: Hypotension, tachycardia, lactic acidosis Source of infection a complicated UTI secondary to chronic indwelling suprapubic catheter, Patient required ICU admission, was on pressors briefly For out of ICU yesterday 03/18/2020 Has been doing very well since Urine culture growing Pseudomonas: Sensitive to Ceftazidime Antibiotic changed from cefepime to Ceftazidime 1 gm BID Needs 5 more days of antibiotic to complete total 7 days treatment Blood culture shows no growth\ Ultrasound-guided IV site placed Prescription for antibiotic given to case management to arrange home antibiotic And will get at 4 AM morning dose of IV antibiotic Scheduled to have next dose IV abx at home at 4 PM today by home health visiting nurse Plan to discharge home today Hypotension Resolved, stable blood pressure Due to sepsis, required IV pressors consistently with ICU monitoring IV pressors weaned off No episode of hypotension Type 2 diabetes Insulin sliding scale during hospital stay Will resume PO med on discharge History of DVT On Coumadin INR therapeutic Follow up with the [facility]ag clinic code Status: Full code Disposition: Discharge home today with home IV antibiotic therapy Total Time Total Time Spent Total Time Spent (In Minutes): 35 minutes Total Time Includes: Examination of the Patient, Discharge Planning, Medication Reconciliation, Communication With Other Providers and Other Discharge Plan Discharge Items Patient Disposition: Home - Home Health Services Reason For Visit: HYPOTENSION Discharge Diagnosis: Severe sepsis with septic shock, complicated UTI associated with suprapubic Martinez catheter Quadriplegia Chronic anticoagulation with Coumadin Acute renal failure on CKD stage III, resolved Activity: Resume your previous activity Non-emergency contact: Primary Care Provider Call non-emergency contact if: you have any medication questions Follow-up/Referrals: Toño Dominguez DO [Physician] - (please establish care/appointment with [facility] for routine urological follow up ) [facility] [Non-Staff] - Wilder Stanford MD [Primary Care Provider] - Diet: Heart Healthy Ambulatory Orders: Basic Metabolic Panel (Routine) Timeframe: [id number] Location: Determined by Patient Ordered By: Kamryn Silverio Attending Provider Instructions: Hospital follow-up with family physician in 1 week Complete antibiotic ceftazidime 1 g intravenous every 12 hours for 5 days Ultrasound-guided IV LINE will be discontinued after antibiotic is complete Follow up with the coumadin clinic to monitor PT/INR Check BMP on Wednesday to monitor renal function Resume chronic suppressive antibiotic cefdinir after IV antibiotics is completed Pending Studies at Discharge: Yes Studies:: Lab: Basic metabolic panel on 03/22/2020 Stand-Alone Forms: My DosYogures, Smoking Cessation Medications and DC Order Prescriptions: New ceftazidime 1 gram recon soln 1 gm IV Q12 5 Days Qty: 10 RF: 0 Continued nitrofurantoin monohyd/m-cryst 100 mg capsule 100 mg PO DAILY Qty: 30 RF: 6 triamcinolone acetonide 0.1 % cream 1 appln TOP BID RF: 0 warfarin 5 mg tablet 5 mg PO [id number]@1600 RF: 0 escitalopram oxalate 20 mg tablet 20 mg PO HS RF: 0 Novolin 70/30 U-100 Insulin 100 unit/mL (70-30) suspension 0 unit subcut UD RF: 0 nystatin 100,000 unit/gram powder 1 appln TOP BID PRN (Reason: BREAKOUTS) RF: 0 atorvastatin 40 mg tablet 40 mg PO QPM RF: 0 (DME) OneTouch Ultra Blue Test Strip strip See Rx Instructions .ROUTE .MEDSUPPLY Qty: 10 RF: 0 allopurinol 100 mg Tablet 100 mg PO BID RF: 0 ascorbic acid (vitamin C) 250 mg Tablet 250 mg PO TID RF: 0 ropinirole 1 mg Tablet 1 mg PO QID RF: 0 furosemide 40 mg Tablet 40 mg PO BID RF: 0 gabapentin 800 mg Tablet 800 mg PO BID RF: 0 ferrous gluconate 324 mg (38 mg iron) Tablet 324 mg PO DAILY RF: 0 multivitamin Tablet 1 tab PO QAM RF: 0 [id number]-algal oil [Metanx (algal oil)] 3 mg-35 mg-2 mg -90.314 mg Capsule 1 cap PO BID RF: 0 pantoprazole 40 mg Tablet,Delayed Release (Dr/Ec) 40 mg PO DAILY RF: 0 magnesium oxide 400 mg (241.3 mg magnesium) Tablet 400 mg PO BID RF: 0 nystatin-triamcinolone 100,000-0.1 unit/g-% Cream 1 dose Topical BID PRN (Reason: BREAKOUTS) RF: 0 insulin regular human 100 unit/mL solution 0 unit subcut UD RF: 0 baclofen 10 mg tablet 5 mg PO UD RF: 0 warfarin [Coumadin] 5 mg Tablet 7.5 mg PO [id number]@1600 RF: 0 cyclobenzaprine 10 mg tablet 15 mg PO HS RF: 0 hyoscyamine sulfate 0.125 mg tablet 0.125 mg PO DAILY RF: 0 Uro-MP 118-10-40.8-36 mg capsule 2 cap PO DAILY RF: 0 tizanidine 4 mg tablet 4 mg PO BID RF: 0 potassium chloride 10 mEq tablet extended release 10 meq PO BID RF: 0 spironolactone [Aldactone] 25 mg tablet 25 mg PO DAILY RF: 0 metformin [Glucophage] 1,000 mg tablet 1,000 mg PO BID RF: 0 Lactobacillus acidoph-L.bulgar [Floranex] 1 million cell tablet 1 tab PO BID RF: 0 Discontinued cefdinir 300 mg capsule See Rx Instructions .ROUTE .COMPLEX Qty: 60 RF: 6 Discharge Orders: Discharge Order (Routine); Ordered 03/20/20 Ordered By: Edgar Lee Admission Data Admit Date/Time: 03/17/20 00:42 Attending Provider: Edgar Lee Admit Provider: Jesus Edmond Primary Care Provider: Wilder Stanford Other Providers: [facility] ; Jesus Edmond ; Will Aldana Ayesha H.
[2020-03-20 11:12] VITALS: BP 111/69; PULSE 81; TEMP 98.2
[2020-03-20] MEDS ORDERED: WARFARIN SOD 7.5 MG TAB PO SCH (16:00)
== END 2020-03-20 14:12 | disposition home health service (06) | DRG 871 ==
LOC: ED 21:26 → SUATTDRO 03-17 00:42 → 1E 03-17 00:42 → 2N 03-18 12:07

== ENCOUNTER 2020-03-26 20:48 | Inpatient (IN) ==
--- NOTE | 2020-03-26 21:24 | Emergency Department Note ---
History of Present Illness General Chief complaint: Referred by Doctor Stated complaint: BP HIGH AND LOW VISION AND HEARING ISSUES DR JOYNER Time Seen by Provider: 03/26/20 21:08 Source: patient and family History of Present Illness Provider complaint: Decreased vision and hearing Onset (ago): hour(s) Location: head Severity: moderate Pain Consistency: + now resolved Quality: + other (Hearing was muffled in vision decreased) Exacerbated By: + none Associated symptoms: + cough (Mild); no chest pain, no fever/chills, no headaches, no nausea/vomiting and no shortness of breath This is a 59-year-old male who just finished his antibiotics for a UTI this morning presenting with an episode of decreased hearing and vision. It occurred at approximately 3 PM today. It lasted for about an hour and a half and then went away. It was associated with elevated blood pressure and pulse. I did see this patient earlier this month for similar symptoms and he had septic shock at the time. He states that he does not have a fever this time. He otherwise feels well and has no complaints. He denies any chest pain, shortness of breath, abdominal pain, vomiting. He does state that he has had diarrhea through his rectum and that he has a very mild nonproductive cough. He does state that he has otherwise had normal output from his ostomy. He was tested for COVID while in the hospital and it was negative. The patient called his doctor who advised him to go to the hospital for evaluation. Home Medications Home Medications Medication Instructions Recorded Confirmed Type allopurinol 100 mg PO BID 05/07/18 03/26/20 History ascorbic acid (vitamin C) 250 mg PO TIDM 05/07/18 03/26/20 History ferrous gluconate 324 mg PO DAILY 05/07/18 03/26/20 History furosemide 40 mg PO BID 05/07/18 03/26/20 History gabapentin 800 mg PO BID 05/07/18 03/26/20 History [id number]-algal oil 1 cap PO BID 05/07/18 03/26/20 History [Metanx (algal oil)] magnesium oxide 400 mg PO BID 05/07/18 03/26/20 History multivitamin 1 tab PO QAM 05/07/18 03/26/20 History nystatin-triamcinolone 1 dose TOPICAL BID PRN 05/07/18 03/26/20 History pantoprazole 40 mg PO BID 05/07/18 03/26/20 History ropinirole 1 mg PO QID 05/07/18 03/26/20 History escitalopram oxalate 20 mg tablet 20 mg PO QAM tab 08/21/19 03/26/20 History insulin human U-100 NPH-regulr See Rx Instructions .ROUTE .COMPLEX 08/21/19 History 70-30 mix 100 unit/mL subcutaneous susp insulin regular human 100 unit/mL 0 unit SUBCUT UD PRN 08/21/19 03/26/20 History injection solution nystatin 100,000 unit/gram topical 1 appln TOP BID PRN gm 08/21/19 03/26/20 History powder triamcinolone acetonide 0.1 % 1 appln TOP BID 08/21/19 03/26/20 History topical cream warfarin 5 mg tablet 5 mg PO .4XWK @ HS tab 08/21/19 03/26/20 History atorvastatin 40 mg tablet 40 mg PO HS 08/24/19 03/26/20 History blood sugar diagnostic #10 ea 08/24/19 03/01/20 History baclofen 10 mg tablet See Rx Instructions .ROUTE .COMPLEX 09/22/19 03/26/20 History nitrofurantoin 100 mg PO DAILY #30 cap 09/22/19 03/26/20 Rx monohydrate/macrocrystals 100 mg capsule warfarin [Coumadin] 7.5 mg PO .3XWK @ HS 10/14/19 03/26/20 History Lactobacillus acidoph-L.bulgar 1 tab PO BID 03/01/20 03/26/20 History [Floranex] Uro-MP 2 cap PO DAILY 03/01/20 03/26/20 History cyclobenzaprine 15 mg PO HS 03/01/20 03/26/20 History hyoscyamine sulfate 0.125 mg PO DAILY 03/01/20 03/26/20 History metformin [Glucophage] 1,000 mg PO BID 03/01/20 03/26/20 History potassium chloride 10 meq PO BID 03/01/20 03/26/20 History spironolactone [Aldactone] 25 mg PO DAILY 03/01/20 03/26/20 History tizanidine 4 mg PO BID 03/01/20 03/26/20 History Medical Marijuana 3 drp PO TID 03/26/20 03/26/20 History Allergies Allergy/AdvReac Type Severity Reaction Status Date / Time codeine Allergy Severe THROAT Verified 03/26/20 22:28 SWELLS latex Allergy Intermediate welts Verified 03/26/20 22:28 piperacillin Allergy Intermediate RASH Verified 03/26/20 22:28 Sulfa (Sulfonamide Allergy Intermediate HIVES Verified 03/26/20 22:28 Antibiotics) tazobactam Allergy Intermediate RASH Verified 03/26/20 22:28 aztreonam Allergy Unknown unknown Verified 03/26/20 22:28 lactose AdvReac Intermediate GI symptoms Verified 03/26/20 22:28 Past Med/Surg History Medical History Asymptomatic bacteriuria Clostridium difficile infection (Resolved Unknown) CVA (cerebral vascular accident) (Acute) DM type 2 (diabetes mellitus, type 2) (Chronic) Dyslipidemia Dysphagia Fever History of blood clots (Chronic) History of DVT (deep vein thrombosis) Hypertension (Chronic) Hypotension Ileus (Acute) Kidney disease (Chronic) Leukocytosis (Acute) Major depressive disorder, recurrent Obesity Occluded PICC line (Acute) Positive urine culture Quadriplegia Seizure SIRS (systemic inflammatory response syndrome) (Acute) Sleep apnea (Chronic Unknown) Syncope 57 year old with know quadriplegia and new onset syncope with change in position UTI (urinary tract infection) (Acute) Surgical History Insertion of inferior vena caval filter (Chronic Unknown) Lithotripsy (Chronic Unknown) "laser lithotripsy left ureteral stone 03/17/11 " Suprapubic cystostomy (Chronic Unknown) Social History Smoking Status: Never smoker Second Hand Exposure: No; Hx Alcohol Use: No Hx Substance Use: No Preferred Language: Swedish Communication Ability: Effective Service Desk Agent Required: No Beliefs That Will Affect Care: None marital status: Current Living Situation: Spouse Feels Safe at Home: Yes Review of Systems See HPI for pertinent positives & negatives. and A total of 10 systems reviewed and were otherwise negative Physical Exam Vital Signs Vital Signs - 24 hr 03/26/20 20:55 03/26/20 21:26 03/26/20 22:00 Temperature 36.8 C Temperature Source Oral Pulse Rate 107 H 98 H 86 Pulse Rate from SpO2 Sensor 95 H Respiratory Rate 18 15 19 Blood Pressure 97/63 L 87/58 L 118/78 Blood Pressure Mean 74 75 95 Pulse Oximetry 99 97 Oxygen Delivery Method Room Air Room Air Sepsis Recent Fever Within 48 Hours No Sepsis New/Unexplained Change in Mental Status No Sepsis Action Taken by Nursing No Action Required 03/26/20 22:22 03/26/20 22:35 03/27/20 00:00 Temperature Temperature Source Pulse Rate 87 Pulse Rate from SpO2 Sensor 90 90 Respiratory Rate 22 16 Blood Pressure 129/63 144/72 H Blood Pressure Mean 79 101 Pulse Oximetry 94 94 96 Oxygen Delivery Method Room Air Room Air Room Air Sepsis Recent Fever Within 48 Hours Sepsis New/Unexplained Change in Mental Status Sepsis Action Taken by Nursing Constitutional: Vital signs reviewed. Eyes: Pupils are equal round reactive to light. Conjunctiva are noninjected. ENT: Pharynx is clear without erythema or exudate. Mucous membranes are dry. Neck supple without meningeal signs. Respiratory: Clear to auscultation bilaterally. Breath sounds are equal bilaterally. Cardiovascular: Mild tachycardia. Heart rate 106. GI: Soft, nondistended and nontender. Bowel sounds are present. Ostomy left abdomen with liquidy greenish output. Suprapubic catheter. Musculoskeletal: No peripheral edema. No lower extremity tenderness. Integumentary: No cyanosis. or jaundice. Neurological: The patient is awake and alert. Partial quadriplegic. Psychiatric: Normal affect. Not anxious appearing. Course Administered Medications Discontinued Medications Sodium Chloride (Nss 1000ml) 1,000 mls @ 999 mls/hr IV .Q1H1M [facility] Stop: 03/26/20 22:30 Last Infusion: 03/27/20 00:00 Dose: 0 mls/hr Documented by: [id number] Admin: 03/26/20 22:46 Dose: 999 mls/hr Documented by: [id number] Medical Decision Making Differential Diagnosis C. difficile, enteritis, colitis, dehydration, pneumonia, electrolyte abnormality Medical Records Attestation: I reviewed the patient's medical records. I did perform a limited focused review of portions of the patient's old chart on the electronic medical record. The patient was seen by myself March 16 for septic shock from a UTI. Admitted to the ICU and placed on pressors. He was discharged on ceftaz edema. Home Medications Current Medication List: was personally reviewed by me Laboratory Data Attestation: I reviewed the patient's lab results. Result diagrams: 03/26/20 22:29 03/26/20 22:29 Lab Results 03/26/20 03/26/20 03/26/20 Range/Units 21:13 22:29 22:29 WBC 14.94 H (4.8-10.8) K/uL RBC 3.68 L (4.7-6.1) M/uL Hgb 10.7 L (14.0-18.0) g/dL Hct 33.6 L (42-52) % MCV 91.3 (80-100) fL MCH 29.1 (25-34) pg MCHC 31.8 L (32-36) g/dL RDW Std Deviation 60.1 H (36.4-46.3) fL RDW Coeff of Yoseph 17.9 H (11.5-14.5) % Plt Count 287 (130-400) K/uL MPV 9.1 (7.4-10.4) fL Immature Gran % (Auto) 0.3 % Neut % (Auto) 78.6 % Lymph % (Auto) 15.5 % Todd % (Auto) 3.8 % Eos % (Auto) 1.7 % Baso % (Auto) 0.1 % Neut # (Auto) 11.73 H (1.4-6.5) K/uL Lymph # (Auto) 2.32 (1.2-3.4) K/uL Todd # (Auto) 0.57 (0.11-0.59) K/uL Eos # (Auto) 0.25 (0-0.5) K/uL Baso # (Auto) 0.02 (0-0.2) K/uL Immature Gran # (Auto) 0.05 H (0.00-0.02) K/uL PT (9.0-12.0) Seconds INR (0.9-1.1) APTT (21.0-31.0) Seconds PTT Ratio Sodium 134 L (136-145) mmol/L Potassium 4.2 (3.5-5.1) mmol/L Chloride 97 L (98-107) mmol/L Carbon Dioxide 32 (21-32) mmol/L Anion Gap 6.0 (3-11) BUN 24 H (7-18) mg/dl Creatinine 1.38 (0.6-1.4) mg/dl Est Cr Clr Drug Dosing Not Reportable Est GFR ( Amer) 63.9 Est GFR (Non-Af Amer) 55.2 BUN/Creatinine Ratio 17.2 (10-20) Glucose 105 H (70-99) mg/dl POC Glucose 184 H (70-99) mg/dl Lactate (0.4-2.0) mmol/L Calcium 8.9 (8.5-10.1) mg/dl Magnesium 1.7 L (1.8-2.4) mg/dl Total Bilirubin 0.3 (0.2-1) mg/dl AST 20 (15-37) U/L ALT 24 (12-78) U/L Alkaline Phosphatase 66 (45-117) U/L Troponin I < 0.015 (0-0.045) ng/ml Total Protein 8.0 (6.4-8.2) gm/dl Albumin 3.0 L (3.4-5.0) gm/dl Globulin 5.0 H (2.5-4.0) gm/dl Albumin/Globulin Ratio 0.6 L (0.9-2) Lipase 87 (73-393) U/L Procalcitonin (0-0.5) ng/ml Urine Color Urine Appearance (Clear) Urine pH (4.5-7.5) Ur Specific [place] (1.000-1.030) Urine Protein (Negative) Urine Glucose (UA) (Negative) Urine Ketones (Negative) Urine Blood (Negative) Urine Nitrite (Negative) Urine Bilirubin (Negative) Urine Urobilinogen (Negative) Ur Leukocyte Esterase (Negative) Urine RBC (0-4) /hpf Urine WBC (0-5) /hpf Ur Epithelial Cells (0-5) /lpf Urine Bacteria (Negative) Hyaline Casts (0-5) /lpf Stl C. diff Tox B Gene (Neg) 03/26/20 03/26/20 03/26/20 Range/Units 22:29 22:45 23:00 WBC (4.8-10.8) K/uL RBC (4.7-6.1) M/uL Hgb (14.0-18.0) g/dL Hct (42-52) % MCV (80-100) fL MCH (25-34) pg MCHC (32-36) g/dL RDW Std Deviation (36.4-46.3) fL RDW Coeff of Yoseph (11.5-14.5) % Plt Count (130-400) K/uL MPV (7.4-10.4) fL Immature Gran % (Auto) % Neut % (Auto) % Lymph % (Auto) % Todd % (Auto) % Eos % (Auto) % Baso % (Auto) % Neut # (Auto) (1.4-6.5) K/uL Lymph # (Auto) (1.2-3.4) K/uL Todd # (Auto) (0.11-0.59) K/uL Eos # (Auto) (0-0.5) K/uL Baso # (Auto) (0-0.2) K/uL Immature Gran # (Auto) (0.00-0.02) K/uL PT 21.8 H (9.0-12.0) Seconds INR 2.2 H (0.9-1.1) APTT 48.7 H* (21.0-31.0) Seconds PTT Ratio 1.7 Sodium (136-145) mmol/L Potassium (3.5-5.1) mmol/L Chloride (98-107) mmol/L Carbon Dioxide (21-32) mmol/L Anion Gap (3-11) BUN (7-18) mg/dl Creatinine (0.6-1.4) mg/dl Est Cr Clr Drug Dosing Est GFR ( Amer) Est GFR (Non-Af Amer) BUN/Creatinine Ratio (10-20) Glucose (70-99) mg/dl POC Glucose (70-99) mg/dl Lactate (0.4-2.0) mmol/L Calcium (8.5-10.1) mg/dl Magnesium (1.8-2.4) mg/dl Total Bilirubin (0.2-1) mg/dl AST (15-37) U/L ALT (12-78) U/L Alkaline Phosphatase (45-117) U/L Troponin I (0-0.045) ng/ml Total Protein (6.4-8.2) gm/dl Albumin (3.4-5.0) gm/dl Globulin (2.5-4.0) gm/dl Albumin/Globulin Ratio (0.9-2) Lipase (73-393) U/L Procalcitonin (0-0.5) ng/ml Urine Color Green Urine Appearance Slightly Cloudy A (Clear) Urine pH (4.5-7.5) Ur Specific [place] 1.009 (1.000-1.030) Urine Protein Negative (Negative) Urine Glucose (UA) (Negative) Urine Ketones (Negative) Urine Blood (Negative) Urine Nitrite (Negative) Urine Bilirubin (Negative) Urine Urobilinogen (Negative) Ur Leukocyte Esterase (Negative) Urine RBC >30 H (0-4) /hpf Urine WBC 5-10 H (0-5) /hpf Ur Epithelial Cells 0-5 (0-5) /lpf Urine Bacteria Negative (Negative) Hyaline Casts >30 H (0-5) /lpf Stl C. diff Tox B Gene (Neg) 03/26/20 03/27/20 Range/Units 23:00 00:26 WBC (4.8-10.8) K/uL RBC (4.7-6.1) M/uL Hgb (14.0-18.0) g/dL Hct (42-52) % MCV (80-100) fL MCH (25-34) pg MCHC (32-36) g/dL RDW Std Deviation (36.4-46.3) fL RDW Coeff of Yoseph (11.5-14.5) % Plt Count (130-400) K/uL MPV (7.4-10.4) fL Immature Gran % (Auto) % Neut % (Auto) % Lymph % (Auto) % Todd % (Auto) % Eos % (Auto) % Baso % (Auto) % Neut # (Auto) (1.4-6.5) K/uL Lymph # (Auto) (1.2-3.4) K/uL Todd # (Auto) (0.11-0.59) K/uL Eos # (Auto) (0-0.5) K/uL Baso # (Auto) (0-0.2) K/uL Immature Gran # (Auto) (0.00-0.02) K/uL PT (9.0-12.0) Seconds INR (0.9-1.1) APTT (21.0-31.0) Seconds PTT Ratio Sodium (136-145) mmol/L Potassium (3.5-5.1) mmol/L Chloride (98-107) mmol/L Carbon Dioxide (21-32) mmol/L Anion Gap (3-11) BUN (7-18) mg/dl Creatinine (0.6-1.4) mg/dl Est Cr Clr Drug Dosing Est GFR ( Amer) Est GFR (Non-Af Amer) BUN/Creatinine Ratio (10-20) Glucose (70-99) mg/dl POC Glucose (70-99) mg/dl Lactate 2.8 H* (0.4-2.0) mmol/L Calcium (8.5-10.1) mg/dl Magnesium (1.8-2.4) mg/dl Total Bilirubin (0.2-1) mg/dl AST (15-37) U/L ALT (12-78) U/L Alkaline Phosphatase (45-117) U/L Troponin I (0-0.045) ng/ml Total Protein (6.4-8.2) gm/dl Albumin (3.4-5.0) gm/dl Globulin (2.5-4.0) gm/dl Albumin/Globulin Ratio (0.9-2) Lipase (73-393) U/L Procalcitonin 0.09 (0-0.5) ng/ml Urine Color Urine Appearance (Clear) Urine pH (4.5-7.5) Ur Specific [place] (1.000-1.030) Urine Protein (Negative) Urine Glucose (UA) (Negative) Urine Ketones (Negative) Urine Blood (Negative) Urine Nitrite (Negative) Urine Bilirubin (Negative) Urine Urobilinogen (Negative) Ur Leukocyte Esterase (Negative) Urine RBC (0-4) /hpf Urine WBC (0-5) /hpf Ur Epithelial Cells (0-5) /lpf Urine Bacteria (Negative) Hyaline Casts (0-5) /lpf Stl C. diff Tox B Gene (Neg) Imaging Data Attestation: I personally reviewed and interpreted this imaging study as follows: My Impression: Chest x-ray per my interpretation shows no acute cardiopulmonary process. ECG Data Attestation: I personally reviewed and interpreted this ECG as follows: Indication: + other (Hypotension) Rate (beats per minute): 96 Rhythm: + normal sinus ECG Intervals/blocks: + Right Bundle branch block ECG ST segments: no ST elevation ECG Findings: no PVCs Blood Pressure Blood Pressure Findings: Low blood pressure Blood Pressure Disposition: further management by hospitalist MDM Narrative I did evaluate the patient as noted above. IV access was established. I did place an order for continuous cardiac monitoring. The monitor showed sinus t achycardia with a rate of 106. He did go down to normal sinus rhythm with a rate of 84. I did order and personally review the patient's 12-lead EKG as described above. He has no acute ischemic changes. I did order and personally reviewed the images of the patient's chest x-ray as described above. There is no evidence of pneumonia. I did order a urine analysis. It is discolored due to the bacteriostatic he is on. I did order and review the patient's blood work as noted in the electronic medical record. His white count is elevated at almost 15,000. He is anemic. He has mild hyponatremia. The patient's blood pressure did improve after a liter normal saline IV. He has no specific sy mptoms at this time. Given his elevated white blood cell count and hypotension with a recent history of septic shock I did feel it was prudent to hospitalize him. He was agreeable with this. I did discuss the case with the hospitalist and pillowcase folder. Impression & Plan Acute hypotension, Leukocytosis, Anemia Discharge Plan Visit Data Chief Complaint: Referred by Doctor Stated Complaint: BP HIGH AND LOW VISION AND HEARING ISSUES DR JOYNER ED Provider: Alistair Riley Discharge Problem: Acute hypotension, Leukocytosis, Anemia Patient Disposition: Being Evaluated by Hospitalist Forms Stand Alone Forms: My [facility] Prescriptions Prescriptions: No Action nitrofurantoin monohyd/m-cryst 100 mg capsule 100 mg PO DAILY Qty: 30 RF: 6 triamcinolone acetonide 0.1 % cream 1 appln TOP BID RF: 0 warfarin 5 mg tablet 5 mg PO .4XWK @ HS RF: 0 escitalopram oxalate 20 mg tablet 20 mg PO QAM RF: 0 Novolin 70/30 U-100 Insulin 100 unit/mL (70-30) suspension See Rx Instructions .ROUTE .COMPLEX RF: 0 nystatin 100,000 unit/gram powder 1 appln TOP BID PRN (Reason: BREAKOUTS) RF: 0 atorvastatin 40 mg tablet 40 mg PO HS RF: 0 (DME) OneTouch Ultra Blue Test Strip strip See Rx Instructions .ROUTE .MEDSUPPLY Qty: 10 RF: 0 allopurinol 100 mg Tablet 100 mg PO BID RF: 0 ascorbic acid (vitamin C) 250 mg Tablet 250 mg PO TIDM RF: 0 ropinirole 1 mg Tablet 1 mg PO QID RF: 0 furosemide 40 mg Tablet 40 mg PO BID RF: 0 gabapentin 800 mg Tablet 800 mg PO BID RF: 0 ferrous gluconate 324 mg (38 mg iron) Tablet 324 mg PO DAILY RF: 0 multivitamin Tablet 1 tab PO QAM RF: 0 [id number]-[id number]-algal oil [Metanx (algal oil)] 3 mg-35 mg-2 mg -90.314 mg C apsule 1 cap PO BID RF: 0 pantoprazole 40 mg Tablet,Delayed Release (Dr/Ec) 40 mg PO BID RF: 0 magnesium oxide 400 mg (241.3 mg magnesium) Tablet 400 mg PO BID RF: 0 nystatin-triamcinolone 100,000-0.1 unit/g-% Cream 1 dose Topical BID PRN (Reason: BREAKOUTS) RF: 0 insulin regular human 100 unit/mL solution 0 unit subcut UD PRN (Reason: ELEVATED BSG) RF: 0 baclofen 10 mg tablet See Rx Instructions .ROUTE .COMPLEX RF: 0 warfarin [Coumadin] 5 mg Tablet 7.5 mg PO .3XWK @ HS RF: 0 cyclobenzaprine 10 mg tablet 15 mg PO HS RF: 0 hyoscyamine sulfate 0.125 mg tablet 0.125 mg PO DAILY RF: 0 Uro-MP 118-10-40.8-36 mg capsule 2 cap PO DAILY RF: 0 tizanidine 4 mg tablet 4 mg PO BID RF: 0 potassium chloride 10 mEq tablet extended release 10 meq PO BID RF: 0 spironolactone [Aldactone] 25 mg tablet 25 mg PO DAILY RF: 0 metformin [Glucophage] 1,000 mg tablet 1,000 mg PO BID RF: 0 Lactobacillus acidoph-L.bulgar [Floranex] 1 million cell tablet 1 tab PO BID RF: 0 Medical Marijuana 3 drp PO TID RF: 0 Referrals Referrals: Wilder Stanford MD [Primary Care Provider] - Discharge Problem: Leukocytosis Qualifiers: Leukocytosis type: unspecified Qualified Code(s): D72.829 - Elevated white blood cell count, unspecified Anemia Qualifiers: Anemia type: unspecified type Qualified Code(s): D64.9 - Anemia, unspecified
[2020-03-26] MEDS ORDERED: SODIUM CHLORIDE 0.9% 1000ML 1,000 ML IV SCH (21:30)
[2020-03-26 22:45] LABS: Basophils # (auto) 0.02 K/uL (0-0.2); Basophils % (auto) 0.1 %; Eosinophils # (auto) 0.25 K/uL (0-0.5); Eosinophils % (auto) 1.7 %; Hematocrit (blood only) 33.6 % (42-52); Hemoglobin 10.7 g/dL (14.0-18.0); Immature Granulocytes # (auto) 0.05 K/uL (0.00-0.02); Immature Granulocytes % (auto) 0.3 %; Lymphocytes # (auto) 2.32 K/uL (1.2-3.4); Lymphocytes % (auto) 15.5 %; Mean Corpuscular Hemoglobin 29.1 pg (25-34); Mean Corpuscular Hgb Conc 31.8 g/dL (32-36); Mean Corpuscular Volume 91.3 fL (80-100); Mean Platelet Volume 9.1 fL (7.4-10.4); Monocytes # (auto) 0.57 K/uL (0.11-0.59); Monocytes % (auto) 3.8 %; Neutrophils # (auto) 11.73 K/uL (1.4-6.5); Neutrophils % (auto) 78.6 %; Platelet Count 287 K/uL (130-400); RDW Coefficient of Variation 17.9 % (11.5-14.5); RDW Standard Deviation 60.1 fL (36.4-46.3); Red Blood Count 3.68 M/uL (4.7-6.1); White Blood Count 14.94 K/uL (4.8-10.8)
[2020-03-26 23:08] LABS: Alanine Aminotransferase 24 U/L (12-78); Aspartate Aminotransferase 20 U/L (15-37); BUN Creatinine Ratio 17.2 (10-20); Blood Urea Nitrogen 24 mg/dl (7-18); Calcium 8.9 mg/dl (8.5-10.1); Carbon Dioxide 32 mmol/L (21-32); Chloride 97 mmol/L (98-107); Est GFR (African American) 63.9; Est GFR (Non-African American) 55.2; Glucose 105 mg/dl (70-99); Lipase 87 U/L (73-393); Potassium 4.2 mmol/L (3.5-5.1); Sodium 134 mmol/L (136-145)
[2020-03-26 23:12] LABS: Albumin Globulin Ratio 0.6 (0.9-2); Alkaline Phosphatase 66 U/L (45-117); Bilirubin,Total 0.3 mg/dl (0.2-1); Troponin I < 0.015 ng/ml (0-0.045)
[2020-03-26 23:22] LABS: Appearance Urine Slightly Cloudy (Clear); Specific Gravity Urine 1.009 (1.000-1.030); Sulfosalicylic Acid Urine Negative (Negative)
[2020-03-26 23:23] LABS: Protein Urine Negative (Negative)
[2020-03-26 23:25] LABS: Bacteria Urine Negative (Negative); Epithelial Cell Urine 0-5 /lpf (0-5); Hyaline Casts Urine >30 /lpf (0-5); RBC Urine >30 /hpf (0-4)
[2020-03-26 23:40] LABS: INR 2.2 (0.9-1.1); Partial Thromboplastin Ratio 1.7; Prothrombin Time 21.8 Seconds (9.0-12.0)
[2020-03-26 23:51] LABS: Partial Thromboplastin Time 48.7 Seconds (21.0-31.0)
[2020-03-27 00:13] LABS: Magnesium 1.7 mg/dl (1.8-2.4)
[2020-03-27] MEDS ORDERED: metroNIDAZOLE 500 MG/100 ML BAG IV STA (01:01)
[2020-03-27] MEDS ORDERED: NORMOSOL-R 1,000 ML IV ONE (01:11)
[2020-03-27] MEDS ORDERED: DAPTOmycin 1 MG in SYRINGE 0 ML IV ONE (01:12)
[2020-03-27] MEDS ORDERED: OPTIRAY 320 125ml IV PRN (01:39)
[2020-03-27] MEDS ORDERED: DAPTOmycin 700 MG in SYRINGE 0 ML IV STA (01:48)
[2020-03-27] MEDS ORDERED: SODIUM CHLORIDE 0.9% 1000ML 1,000 ML IV ONE (02:06)
--- NOTE | 2020-03-27 02:09 | History & Physical Report ---
Date of Service March 27, 2020 Assessment & Plan (1) Severe sepsis: SIRS plus lactic acid elevation Possible sources: Complicated UTI, hx suprapubic catheter (recent bout of Pseudomonas UTI status post ceftazidime Rx) Rule out recurrent C. 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 difficile Daptomycin, Ceftazidime for now for complicated UTI Flagyl 1 dose for now for possible C. difficile given sepsis criteria Oral vancomycin course if stool C. difficile positive ID consult at some point IVF, follow lactic acid Basal insulin, ISS BG goal [id number] DVT prophylaxis. Coumadin INR goal between 2 and 3 Full code Patient's requesting updates providers. Ms. Rody Rodriguez, contact #[phone]. Total critical care time was 40 minutes. Text document was generated using Bango voice recognition software. It may contain grammatical or spelling errors. Kindly contact undersigned for clarification of any documentation item in question. History of Present Illness Chief Complaint: Decreased responsiveness as per Primary Care Provider: Wilder Stanford MD History obtained from patient, family, and records. 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 dif Recent confinement last week for severe sepsis/septic shock secondary to complicated UTI Urine cultures grew Pseudomonas. Patient discharged on Ceftazidime course. Since discharge from hospital patient with worsening reflux, belching, epigastric discomfort symptoms. Stools noted to be loose and nonbloody. No fever, no chills. Seen at PCP's office yesterday. PPI initiated for GERD. Later at a grocery, patient experience arm weakness/fatigue which he associates with hypoglycemic episode. Blood sugar not obtained at the grocery but symptoms improved with sugar intake as per patient. Later yesterday afternoon, patient was noted by to have decreased responsiveness. Patient staring blankly and could not hear her. Episodes similar to event from last week leading to confinement for sepsis. Blood sugar at home noted to be 100s. SBP 180s at one point as per . Patient denies chest pain, S OB, cough, headache. Achy abdominal discomfort. Patient brought to the ER by . Initial SBP at the ER was 80s. MEDICAL HISTORY: As above. SURGICAL HISTORY: Kidney stone procedures, suprapubic catheter placement, neck surgery, IVC filter placement, ostomy//bowel surgery FAMILY HISTORY: DM, prostate cancer PERSONAL SOCIAL HISTORY: Nonsmoker. No chronic intake of alcoholic beverages. On disability. Allergies Allergy/AdvReac Type Severity Reaction Status Date / Time codeine Allergy Severe THROAT Verified 03/26/20 22:28 SWELLS latex Allergy Intermediate welts Verified 03/26/20 22:28 piperacillin Allergy Intermediate RASH Verified 03/26/20 22:28 Sulfa (Sulfonamide Allergy Intermediate HIVES Verified 03/26/20 22:28 Antibiotics) tazobactam Allergy Intermediate RASH Verified 03/26/20 22:28 aztreonam Allergy Unknown unknown Verified 03/26/20 22:28 lactose AdvReac Intermediate GI symptoms Verified 03/26/20 22:28 Home Medications Home Medications Medication Instructions Recorded Confirmed Type allopurinol 100 mg PO BID 05/07/18 03/26/20 History ascorbic acid (vitamin C) 250 mg PO TIDM 05/07/18 03/26/20 History ferrous gluconate 324 mg PO DAILY 05/07/18 03/26/20 History furosemide 40 mg PO BID 05/07/18 03/26/20 History gabapentin 800 mg PO BID 05/07/18 03/26/20 History [id number]-algal oil 1 cap PO BID 05/07/18 03/26/20 History [Metanx (algal oil)] magnesium oxide 400 mg PO BID 05/07/18 03/26/20 History multivitamin 1 tab PO QAM 05/07/18 03/26/20 History nystatin-triamcinolone 1 dose TOPICAL BID PRN 05/07/18 03/26/20 History pantoprazole 40 mg PO BID 05/07/18 03/26/20 History ropinirole 1 mg PO QID 05/07/18 03/26/20 History escitalopram oxalate 20 mg tablet 20 mg PO QAM tab 08/21/19 03/26/20 History insulin human U-100 NPH-regulr See Rx Instructions .ROUTE .COMPLEX 08/21/19 03/26/20 History 70-30 mix 100 unit/mL subcutaneous susp insulin regular human 100 unit/mL 0 unit SUBCUT UD PRN 08/21/19 03/26/20 History injection solution nystatin 100,000 unit/gram topical 1 appln TOP BID PRN gm 08/21/19 03/26/20 History powder triamcinolone acetonide 0.1 % 1 appln TOP BID 08/21/19 03/26/20 History topical cream warfarin 5 mg tablet 5 mg PO .4XWK @ HS tab 08/21/19 03/26/20 History atorvastatin 40 mg tablet 40 mg PO HS 08/24/19 03/26/20 History blood sugar diagnostic #10 ea 08/24/19 03/01/20 History baclofen 10 mg tablet See Rx Instructions .ROUTE .COMPLEX 09/22/19 03/26/20 History nitrofurantoin 100 mg PO DAILY #30 cap 09/22/19 03/26/20 Rx monohydrate/macrocrystals 100 mg capsule warfarin [Coumadin] 7.5 mg PO .3XWK @ HS 10/14/19 03/26/20 History Lactobacillus acidoph-L.bulgar 1 tab PO BID 03/01/20 03/26/20 History [Floranex] Uro-MP 2 cap PO DAILY 03/01/20 03/26/20 History cyclobenzaprine 15 mg PO HS 03/01/20 03/26/20 History hyoscyamine sulfate 0.125 mg PO DAILY 03/01/20 03/26/20 History metformin [Glucophage] 1,000 mg PO BID 03/01/20 03/26/20 History potassium chloride 10 meq PO BID 03/01/20 03/26/20 History spironolactone [Aldactone] 25 mg PO DAILY 03/01/20 03/26/20 History tizanidine 4 mg PO BID 03/01/20 03/26/20 History Medical Marijuana 3 drp PO TID 03/26/20 03/26/20 History Past Med/Surg History Medical History Asymptomatic bacteriuria Clostridium difficile infection (Resolved Unknown) CVA (cerebral vascular accident) (Acute) DM type 2 (diabetes mellitus, type 2) (Chronic) Dyslipidemia Dysphagia Fever History of blood clots (Chronic) History of DVT (deep vein thrombosis) Hypertension (Chronic) Hypotension Ileus (Acute) Kidney disease (Chronic) Leukocytosis (Acute) Major depressive disorder, recurrent Obesity Occluded PICC line (Acute) Positive urine culture Quadriplegia Seizure SIRS (systemic inflammatory response syndrome) (Acute) Sleep apnea (Chronic Unknown) Syncope 57 year old with know quadriplegia and new onset syncope with change in position UTI (urinary tract infection) (Acute) Surgical History Insertion of inferior vena caval filter (Chronic Unknown) Lithotripsy (Chronic Unknown) "laser lithotripsy left ureteral stone 03/17/11 " Suprapubic cystostomy (Chronic Unknown) Social History Smoking Status: Never smoker Second Hand Exposure: No; Do You Dip or Chew Tobacco: No; Tobacco Cessation Education Requested by Patient: No Hx Alcohol Use: No Hx Substance Use: No Preferred Language: Iraqi Communication Ability: Effective Young Adult Librarian Required: No Beliefs That Will Affect Care: None marital status: Current Living Situation: Spouse Other Information That Helps Us Care for You: No Feels Safe at Home: Yes Safety Concerns: Feels Safe At This Time Review of Systems Review of Systems: As per HPI, all 10 systems reviewed, all other ROS negative Physical Exam Physical Exam: GENERAL: Comfortable, pleasant, morbidly obese, no respiratory distress SKIN: Pallor, warm HEENT: Pale palpebral conjunctivae, no ptosis, dry buccal mucosa NECK : Supple, short neck, no tenderness CHEST : CTA, no tenderness HEART : RRR, no obvious murmurs ABDOMEN: distention, left-sided ostomy, minimal epigastric tenderness EXTREMITIES : Minimal LE swelling, no LE tenderness, no other conspicuous deformities noted NEUROLOGIC : Coherent, no facial asymmetry, gait and stance not assessed Results & Data Results & Data ([facility]) Vital Signs (Past 12 Hours) Vital Signs Temp Pulse Resp BP Pulse Ox 03/27/20 00:00 87 16 144/72 H 96 03/26/20 22:35 22 129/63 94 03/26/20 22:22 94 03/26/20 22:00 86 19 118/78 97 03/26/20 21:26 98 H 15 87/58 L 03/26/20 20:55 36.8 C 107 H 18 97/63 L 99 Laboratory Results Laboratory Results WBC 14.94 K/uL (4.8-10.8) H 03/26/20 22: RBC 3.68 M/uL (4.7-6.1) L 03/26/20 22: Hgb 10.7 g/dL (14.0-18.0) L 03/26/20 22: Hct 33.6 % (42-52) L 03/26/20 22: MCV 91.3 fL (80-100) 03/26/20 22: MCH 29.1 pg (25-34) 03/26/20 22: MCHC 31.8 g/dL (32-36) L 03/26/20 22: RDW Std Deviation 60.1 fL (36.4-46.3) H 03/26/20 22: RDW Coeff of Yoseph 17.9 % (11.5-14.5) H 03/26/20: Plt Count 287 K/uL (130-400) 03/26/20 22: MPV 9.1 fL (7.4-10.4) 03/26/20: Immature Gran % (Auto) 0.3 % 03/26/20 22: Neut % (Auto) 78.6 % 03/26/20 22: Lymph % (Auto) 15.5 % 03/26/20 22: [place] % (Auto) 3.8 % 03/26/20: Eos % (Auto) 1.7 % 03/26/20 22: Baso % (Auto) 0.1 % 03/26/20: Neut # (Auto) 11.73 K/uL (1.4-6.5) H 03/26/20: Lymph # (Auto) 2.32 K/uL (1.2-3.4) 03/26/20 22: [place] # (Auto) 0.57 K/uL (0.11-0.59) 03/26/20 22: Eos # (Auto) 0.25 K/uL (0-0.5) 03/26/20 22:29 Baso # (Auto) 0.02 K/uL (0-0.2) 03/26/20 22:29 Immature Gran # (Auto) 0.05 K/uL (0.00-0.02) H 03/26/20 22:29 PT 21.8 Seconds (9.0-12.0) H 03/26/20 23:00 INR 2.2 (0.9-1.1) H 03/26/20 23:00 APTT 48.7 Seconds (21.0-31.0) H* 03/26/20 23:00 PTT Ratio 1.7 03/26/20 23:00 Sodium 134 mmol/L (136-145) L 03/26/20 22: Potassium 4.2 mmol/L (3.5-5.1) 03/26/20 22: Chloride 97 mmol/L (98-107) L 03/26/20 22:29 Carbon Dioxide 32 mmol/L (21-32) 03/26/20 22:29 Anion Gap 6.0 (3-11) 03/26/20 22:29 BUN 24 mg/dl (7-18) H 03/26/20 22:29 Creatinine 1.38 mg/dl (0.6-1.4) 03/26/20 22:29 Est Cr Clr Drug Dosing Not Reportable 03/26/20 22:29 Est GFR ( Amer) 63.9 03/26/20 22:29 Est GFR (Non-Af Amer) 55.2 03/26/20 22:29 BUN/Creatinine Ratio 17.2 (10-20) 03/26/20 22:29 Glucose 105 mg/dl (70-99) H 03/26/20 22:29 POC Glucose 184 mg/dl (70-99) H 03/26/20 21:13 Lactate 2.8 mmol/L (0.4-2.0) H* 03/27/20 00:26 Calcium 8.9 mg/dl (8.5-10.1) 03/26/20 22:29 Magnesium 1.7 mg/dl (1.8-2.4) L 03/26/20 22:29 Total Bilirubin 0.3 mg/dl (0.2-1) 03/26/20 22:29 AST 20 U/L (15-37) 03/26/20 22:29 ALT 24 U/L (12-78) 03/26/20 22:29 Alkaline Phosphatase 66 U/L (45-117) 03/26/20 22:29 Troponin I < 0.015 ng/ml (0-0.045) 03/26/20 22:29 Total Protein 8.0 gm/dl (6.4-8.2) 03/26/20 22: Albumin 3.0 gm/dl (3.4-5.0) L 03/26/20 22: Globulin 5.0 gm/dl (2.5-4.0) H 03/26/20 22: Albumin/Globulin Ratio 0.6 (0.9-2) L 03/26/20 22: Lipase 87 U/L (73-393) 03/26/20 22: Procalcitonin 0.09 ng/ml (0-0.5) 03/26/20 23:00 Urine Color Green 03/26/20 22:45 Urine Appearance Slightly Cloudy (Clear) A 03/26/20 22:45 Urine pH (4.5-7.5) 03/26/20 22:45 Ur Specific [place] 1.009 (1.000-1.030) 03/26/20 22:45 Urine Protein Negative (Negative) 03/26/20 22:45 Urine Glucose (UA) (Negative) 03/26/20 22:45 Urine Ketones (Negative) 03/26/20 22:45 Urine Blood (Negative) 03/26/20 22:45 Urine Nitrite (Negative) 03/26/20 22:45 Urine Bilirubin (Negative) 03/26/20 22:45 Urine Urobilinogen (Negative) 03/26/20 22:45 Ur Leukocyte Esterase (Negative) 03/26/20 22:45 Urine RBC >30 /hpf (0-4) H 03/26/20 22:45 Urine WBC 5-10 /hpf (0-5) H 03/26/20 22:45 Ur Epithelial Cells 0-5 /lpf (0-5) 03/26/20 22:45 Urine Bacteria Negative (Negative) 03/26/20 22:45 Hyaline Casts >30 /lpf (0-5) H 03/26/20 22:45 Stl C. diff Tox B Gene (Neg) 03/26/20 22:[address] head initial read: Mild involutional changes. Left anterior superior frontal small area of encephalomalacia. CT abdomen pelvis initial read. Contracted gallbladder. No acute intra- abdominal or pelvic findings. Nonspecific retroperitoneal, pelvic sidewall and iliac chain lymph nodes. Mild to moderate constipation. Ultrasound right quadrant initial read: Diffuse fatty infiltrated liver. Gallbladder is unremarkable. No ductal dilatation. Chest x-ray as per my interpretation cardiomegaly EKG as per my interpretation : Rate 95, NSR, normal axis, right bundle branch block, T wave abnormalities inferior leads
[2020-03-27] MEDS ORDERED: MAGNESIUM SULFATE / D5W 1 GM/100 ML BAG IV ONE (03:27)
[2020-03-27] MEDS ORDERED: GLUCOSE 10 TABS/TUBE PO PRN (03:27)
[2020-03-27] MEDS ORDERED: PROMETHAZINE HCL 12.5 MG in SODIUM CHLORIDE 0.9% 50 ML IV PRN (03:27)
[2020-03-27] MEDS ORDERED: DEXTROSE 50% 50 ML SYRINGE IV PRN (03:27)
[2020-03-27] MEDS ORDERED: oxyCODONE HCL IR 5 MG TAB (IMMEDIATE RELEASE) PO PRN (03:27)
[2020-03-27] MEDS ORDERED: NSS + 20MEQ KCL 20 MEQ/1,000 ML BAG IV SCH ×2 (03:27→03:45)
[2020-03-27] MEDS ORDERED: CARBOHYDRATES FOR HYPOGLYCEMIA PO PRN (03:27)
[2020-03-27] MEDS ORDERED: GLUCOSE 40% GEL 15 GM TUBE PO PRN (03:27)
[2020-03-27] MEDS ORDERED: ACETAMINOPHEN 325 MG TAB PO PRN (03:27)
[2020-03-27] MEDS ORDERED: GLUCAGON FOR INJ 1 MG VIAL SQ PRN (03:27)
[2020-03-27] MEDS ORDERED: MoRPHine SULFATE 2 MG/ML CARP IV PRN (03:38)
[2020-03-27] MEDS: PATIENT'S HEIGHT AND/OR WEIGHT NEEDED SCH (03:56)
[2020-03-27] MEDS: INSULIN ASPART 100 UNITS/ML 3 ML PEN SC SCH ×5 (04:25→20:42)
[2020-03-27] MEDS: BACLOFEN 10 MG TAB PO SCH ×5 (05:14→20:41)
[2020-03-27 05:45] LABS: Basophils # (auto) 0.02 K/uL (0-0.2); Basophils % (auto) 0.1 %; Eosinophils # (auto) 0.24 K/uL (0-0.5); Eosinophils % (auto) 1.8 %; Hematocrit (blood only) 32.6 % (42-52); Hemoglobin 10.3 g/dL (14.0-18.0); Immature Granulocytes # (auto) 0.06 K/uL (0.00-0.02); Immature Granulocytes % (auto) 0.4 %; Lymphocytes # (auto) 2.99 K/uL (1.2-3.4); Lymphocytes % (auto) 21.8 %; Mean Corpuscular Hemoglobin 28.9 pg (25-34); Mean Corpuscular Hgb Conc 31.6 g/dL (32-36); Mean Corpuscular Volume 91.6 fL (80-100); Mean Platelet Volume 9.2 fL (7.4-10.4); Monocytes # (auto) 0.79 K/uL (0.11-0.59); Monocytes % (auto) 5.8 %; Neutrophils % (auto) 70.1 %; Platelet Count 275 K/uL (130-400); RDW Coefficient of Variation 17.8 % (11.5-14.5); RDW Standard Deviation 59.9 fL (36.4-46.3); Red Blood Count 3.56 M/uL (4.7-6.1)
[2020-03-27 06:00] LABS: INR 2.3 (0.9-1.1); Prothrombin Time 22.9 Seconds (9.0-12.0)
[2020-03-27 06:03] LABS: Albumin Level 2.8 gm/dl (3.4-5.0); BUN Creatinine Ratio 18.7 (10-20); Calcium 8.6 mg/dl (8.5-10.1); Creatinine Clr Calc Pharmacy 106.6 ml/min; Est GFR (African American) 77.3; Est GFR (Non-African American) 66.7; Magnesium 1.8 mg/dl (1.8-2.4)
[2020-03-27 06:06] LABS: Albumin Globulin Ratio 0.6 (0.9-2); Bilirubin,Total 0.3 mg/dl (0.2-1); Globulin 4.8 gm/dl (2.5-4.0); Total Protein 7.6 gm/dl (6.4-8.2)
--- NOTE | 2020-03-27 07:23 | CT Scan Report ---
CT SCAN OF THE BRAIN WITHOUT IV CONTRAST CLINICAL HISTORY: Change in mental status. COMPARISON STUDY: CT of the brain dated 05/06/2018. TECHNIQUE: Unenhanced axial CT scan of the brain is performed from the vertex to the skull base. A do se lowering technique was utilized adhering to the principles of ALARA. CT DOSE: 614.27 mGy.cm FINDINGS: Brain parenchyma: A focus of left frontal encephalomalacia is unchanged and consistent with a remote insult. There are age-related involutional changes noting mild subcortical and periventricular micro angiopathic change. There is no hemorrhage, mass effect, or evidence of acute territorial ischemia by CT criteria. Bowser-white matter differentiation is preserved. No extra-axial fluid collection is seen . Ventricles, sulci, cisterns: Prominent secondary to involutional change. Intracranial vasculature: There is atherosclerotic calcification of the cavernous carotid arteries. Calvarium: Unremarkable. Sinuses and mastoids: The visualized paranasal sinuses are clear. The mastoid air cells are well pneu matized. Orbits: The bony orbits are grossly intact. There are bilateral ocular lens implants. IMPRESSION: There is no hemorrhage, mass effect, or evidence of acute territorial ischemia by CT fadia chang. ACT 112: Negative or not required by law. Electronically signed by: José Wise M.D. 03/27/2020 7:21 AM
--- NOTE | 2020-03-27 07:42 | XRay Report ---
SINGLE VIEW CHEST CLINICAL HISTORY: Dyspnea. FINDINGS: 2 AP, portable, upright chest radiographs are compared to study dated 03/16/2020. Correlatio n is made with chest CT dated 05/07/2016. The examination is degraded by portable technique, large body habitus, apical positioning, and patient rotation. The heart is enlarged. The pulmonary vasculatur e is noncongested. Atelectasis is seen at the lung bases. No airspace consolidation or large pleural effusion is identified. No pneumothorax is seen. The skeletal structures are osteopenic. The bony tho rax is grossly intact. Cerclage wires project over the left lower ribs. IMPRESSION: Cardiomegaly with no acute cardiopulmonary abnormality. ACT 112: Negative or not required by law. Electronically signed by: José Wise M.D. 03/27/2020 7:41 AM
[2020-03-27] MEDS ORDERED: NSS + 20MEQ KCL 20 MEQ/1,000 ML BAG IV ONE (08:00)
--- NOTE | 2020-03-27 08:09 | Ultrasound Report ---
ABDOMINAL ULTRASOUND, RIGHT UPPER QUADRANT HISTORY: Generalized abdominal pain.. COMPARISON: Abdomen and pelvis CT 03/27/2020 and 03/17/2020. FINDINGS: Pancreas: The pancreatic head and tail are obscured by overlying bowel gas. The remaining portions of the pancreas are within normal limits. Liver: The liver is echogenic consistent with fatty change. Enlarged measuring 21 cm in length. Gallbladder: No gallbladder wall thickening. No gallstones. CBD: 4 mm. Right kidney: No hydronephrosis. IMPRESSION: 1. Normal gallbladder. No gallstones. 2. Hepatomegaly demonstrating fatty change. 3. The pancreas is not well visualized due to the overlying bowel gas. ACT 112: Negative or not required by law. Electronically signed by: Angel Boo M.D. 03/27/2020 8:08 AM
--- NOTE | 2020-03-27 08:41 | CT Scan Report ---
ABDOMEN AND PELVIS CT WITH IV CONTRAST CT DOSE: 2363.22 mGy.cm HISTORY: Acute generalized abdominal pain with urinary tract infection. abd pain TECHNIQUE: Multiaxial CT images of the abdomen and pelvis were performed following the IV administrat ion of 118 cc of Optiray 320, A dose lowering technique was utilized adhering to the principles of A JACIEL. COMPARISON STUDY: Right upper quadrant abdominal ultrasound of same day, CT abdomen and pelvis 020, 07/28/2017. FINDINGS: Lung bases are generally clear. No pneumatosis or pneumoperitoneum. Limited study secondary to patien t body habitus with portions of the anatomy outside the [id number]. Beam hardening artifact also l imits the study. The imaged inferior cardiac chambers are enlarged. Coronary artery calcifications. N o pericardial effusion. Limited evaluation of the solid abdominal organs without the use of IV contra st. Hepatomegaly with hepatic steatosis. No evidence of cirrhosis or ascites. Unremarkable appearance of the spleen, gallbladder and left adrenal gland. 1.9 cm right adrenal gland adenoma. Mild generali zed pancreatic atrophy. There are 3 nonobstructing calculi of the right kidney measuring up to approximately 4 mm. Left kidne y is unremarkable. No ureteral calculi or obstructive uropathy. Decompressed urinary bladder with sup rapubic catheter. Mild urinary bladder wall thickening. Unremarkable prostate. No aortic aneurysm. In frarenal IVC filter. The infrarenal IVC is again markedly diminutive. Multiple collateral vessels are noted along the anterior abdominal wall. Mildly prominent inguinal chain and retroperitoneal lymph n odes with a few mildly enlarged periaortic lymph nodes measuring up to 11 mm. No bowel obstruction. Moderate to marked fecal retention. The appendix is not diagnostically visualiz ed. Surgical clip is noted within the cecum. Soft tissues are unremarkable. Degenerative changes of t he spine, pelvis and hips. Partially imaged orthopedic hardware of the left femur. Dystrophic calcifi cations of the left iliopsoas insertion site. Postoperative changes are noted involving the lower lef t-sided posterior ribs. Left inferior gluteal decubitus ulcer is noted extension towards the left isc hial tuberosity. Sclerosis and chronic remodeling changes of the left ischial tuberosity are stable d ating back to least 2017. IMPRESSION: 1. Limited exam secondary to patient body habitus with portions of the anatomy outside the field-of-v iew. 2. Moderate to marked fecal retention. 3. No bowel obstruction or bowel wall thickening. 4. Hepatomegaly with hepatic steatosis. 5. Nonobstructing right nephrolithiasis. No ureteral calculi or obstructive uropathy. 6. Left inferior gluteal decubitus ulcer with chronic remodeling changes of the left ischial tuberosi ty, stable dating back to at least 2017. 7. Additional findings as above. ACT 112: Negative or not required by law. The above report was generated using voice recognition software. It may contain grammatical, syntax o r spelling errors. Electronically signed by: Fernando Pimentel M.D. 03/27/2020 8:40 AM
[2020-03-27] MEDS ORDERED: [UNRECOGNIZED DRUG - OTHER] PRN (09:00)
[2020-03-27] MEDS ORDERED: INSULIN GLARGINE SOLOSTAR 100 UNITS/ML 3 ML PEN SC SCH ×2 (09:00)
[2020-03-27] MEDS: allopurinoL 100 MG TAB PO SCH ×2 (09:48→20:41)
[2020-03-27] MEDS: GABAPENTIN 800 MG TAB PO SCH ×2 (09:48→20:41)
[2020-03-27] MEDS: FERROUS GLUCONATE 324 MG TAB PO SCH (09:48)
[2020-03-27] MEDS: ESCITALOPRAM OXALATE 20 MG TAB PO SCH (09:48)
[2020-03-27] MEDS: LACTOBACILLUS ACIDOPHILUS (FLORANEX) TAB PO SCH ×2 (09:49→20:41)
[2020-03-27] MEDS: rOPINIRole HCL 1 MG TABLET PO SCH ×4 (09:49→20:42)
[2020-03-27] MEDS: MULTIVITAMIN TAB PO SCH (09:49)
[2020-03-27] MEDS: HYOSCYAMINE SULFATE 0.125 MG TAB PO SCH (09:49)
[2020-03-27] MEDS: tiZANidine HCL 4 MG TABLET PO SCH ×2 (09:49→20:41)
[2020-03-27] MEDS: PANTOprazole 40 MG TAB PO SCH ×2 (09:49→20:41)
[2020-03-27] MEDS: TRIAMCINOLONE ACET 0.1% CR 15 GM TUBE TOP SCH ×2 (09:50→20:43)
[2020-03-27] MEDS: INSULIN GLARGINE SOLOSTAR 100 UNITS/ML 3 ML PEN SC SCH ×2 (09:50→20:43)
[2020-03-27] MEDS ORDERED: metroNIDAZOLE 500 MG/100 ML BAG IV SCH (10:00)
[2020-03-27] MEDS: MEDICAL MARIJUANA PO SCH ×2 (10:30→12:33)
--- NOTE | 2020-03-27 12:34 | Electrocardiogram Report ---
Test Reason : Blood Pressure : / mmHG Vent. Rate : 096 BPM Atrial Rate : 096 BPM P-R Int : 160 ms QRS Dur : 138 ms QT Int : 408 ms P-R-T Axes : 053 015 010 degrees QTc Int : 515 ms Normal sinus rhythm Right bundle branch block Abnormal ECG When compared with ECG of 17-MAR-2020 01:22, ME interval has decreased Confirmed by Jose Alfredo Courtney ([id number]) on 03/27/2020 12:34:36 PM Referred By: Wilder Stanford Confirmed By:Jose Alfredo Courtney
--- NOTE | 2020-03-27 16:18 | Communication Note ---
Date of Service: March 27, 2020 59-year-old male paraplegic, on no chronic suprapubic Martinez catheter, recently discharged from [facility] on 03/20/2020 due to complicated urinary tract infection with Pseudomonas Patient finished home IV antibiotic ceftazidime 1 day before Was brought to ER as patient was found to be confused Had elevated white count, lactic acidosis, source of infection possible complicated UTI for chronic suprapubic catheter Patient also have chronic sacral decub ulcer on wound VAC Continued with Ceftazidome and daptomycin Follow blood culture urine culture Urology eval requested, she has a suprapubic catheter for recurrent infection Kamryn Peoples MD
[2020-03-27] MEDS: CYCLOBENZAPRINE HCL 10 MG TAB PO SCH (20:41)
[2020-03-28] MEDS: MEDICAL MARIJUANA PO SCH ×4 (00:11→22:35)
--- NOTE | 2020-03-28 00:14 | Consultation Report ---
DATE OF CONSULTATION: 03/27/2020 REASON FOR THE CONSULT: History of suprapubic catheter chronic infection and history of nephrolithiasis. HISTORY OF PRESENTATION: The patient is a 59-year-old male who was recently discharged from the hospital for what appeared to be urosepsis from suprapubic tube. He is a quadriplegic who has a chronic indwelling suprapubic tube which in the past has had infections off and on, once or twice a year. He has a history of cervical spine injury, hypertension, hyperlipidemia, diabetes, insulin requiring, recurrent UTIs, history of DVT on anticoagulation and chronic anemia, history of MRSA, history of C. diff. His recent admission grew out Pseudomonas, and he was discharged on ceftazidime and since the discharge, the patient has noted that he had worsening reflux and belching, epigastric discomfort symptoms and loose stools. He was admitted after the patient was noted by his to have decreased responsiveness. The patient was brought to the Emergency Room by his . He also was having some achy abdominal discomfort. His initial blood pressure in the Emergency Room was in the 80s. He had a CAT scan that did not show any obvious obstruction with stones, but he does have 2 small stones in the right ureter, that are nonobstructing. PAST MEDICAL HISTORY: As above. PAST SURGICAL HISTORY: Significant for ureteroscopy in the past, suprapubic catheter placement, neck surgery, IVC filter placement and an ostomy bowel surgery. FAMILY HISTORY: Significant for diabetes and prostate cancer. SOCIAL HISTORY: The patient is a nonsmoker, no chronic intake of alcoholic beverages. ALLERGIES: HE HAS MULTIPLE ALLERGIES, WHICH INCLUDE CODEINE, LATEX, PIPERACILLIN, SULFA, TAZOBACTAM, AZTREONAM AND LACTOSE. MEDICATIONS: Please refer to the admitting history and physical for his medication list, which is quite long. Please refer to the admitting past medical and surgical history which also is extremely long. REVIEW OF SYSTEMS: All 10 systems were reviewed. All the review of systems were negative except for the ones noted in the history and physical. PHYSICAL EXAMINATION: GENERAL: The patient is a morbidly obese, pleasant male resting comfortably. SKIN: Warm. HEENT: Within normal limits. NECK: Without tenderness. CHEST: Did not have any abnormal breathing. He had no significant murmurs on heart examination. ABDOMEN: Showed a left-sided ostomy and minimal tenderness he was having some. NEUROLOGIC: He did have some tremors and he clearly had loss of motion of his arms as well as complete loss of motion of his legs that were voluntary. EXTREMITIES: Did not show significant swelling. There was minimal left lower extremity swelling. GENITOURINARY: He did have a suprapubic catheter that did not appear to be infected. It was in the stomach crease and somewhat difficult to see without pushing up his pannus. There was no significant erythema or discharge around it. He had phallus that was withdrawn and testes are descended bilaterally without obvious edema or erythema. Scrotum was normal. LABORATORY DATA: Showed an elevated white blood cell count 14.94 on admission. Vital signs have been stable since admission and improving with regard to blood pressure. Creatinine was 1.38. ASSESSMENT: Would continue IV antibiotics, feels strongly that the patient needs to because of all of his allergies and the complicated nature of his wound requiring medication, should be followed and managed to some extent by infectious disease. He says he is going to be seeing somebody in [facility] for this. I think that the suprapubic catheter should be changed while he is on antibiotics probably after several days of antibiotics when he seems to be improving and would start the patient on methenamine 1 pill twice a day to try to prevent infection going forward. The patient previously had been on Macrodantin for this but clearly has developed resistance for this. With regard to the stones, they are too small to do anything about this time and will need to be periodically checked for this, it is unclear whether you could see them on a KUB. We will check a PSA given his age and the inability to do a rectal examination because of his size and position he is in bed. The patient has the suprapubic changed monthly at home currently, was previously going in to Dr. Zabala office for this and was followed by Dr. Zabala in the past, will be willing to establish care with him going forward.
[2020-03-28] MEDS ORDERED: DAPTOmycin 1 MG in SYRINGE 0 ML IV SCH (02:00)
[2020-03-28] MEDS: DAPTOmycin 700 MG in SYRINGE 0 ML IV SCH (02:14)
[2020-03-28] MEDS: BACLOFEN 10 MG TAB PO SCH ×4 (06:25→21:00)
[2020-03-28 08:28] LABS: Basophils # (auto) 0.03 K/uL (0-0.2); Basophils % (auto) 0.3 %; Eosinophils # (auto) 0.21 K/uL (0-0.5); Eosinophils % (auto) 2.3 %; Hematocrit (blood only) 32.8 % (42-52); Hemoglobin 10.4 g/dL (14.0-18.0); Immature Granulocytes # (auto) 0.02 K/uL (0.00-0.02); Immature Granulocytes % (auto) 0.2 %; Lymphocytes # (auto) 2.01 K/uL (1.2-3.4); Lymphocytes % (auto) 22.1 %; Mean Corpuscular Hgb Conc 31.7 g/dL (32-36); Mean Corpuscular Volume 91.4 fL (80-100); Mean Platelet Volume 8.9 fL (7.4-10.4); Monocytes # (auto) 0.57 K/uL (0.11-0.59); Monocytes % (auto) 6.3 %; Neutrophils # (auto) 6.26 K/uL (1.4-6.5); Neutrophils % (auto) 68.8 %; Platelet Count 229 K/uL (130-400); RDW Coefficient of Variation 17.9 % (11.5-14.5); RDW Standard Deviation 59.9 fL (36.4-46.3); Red Blood Count 3.59 M/uL (4.7-6.1)
[2020-03-28] MEDS: LACTOBACILLUS ACIDOPHILUS (FLORANEX) TAB PO SCH ×2 (08:39→20:59)
[2020-03-28] MEDS: rOPINIRole HCL 1 MG TABLET PO SCH ×4 (08:39→21:01)
[2020-03-28] MEDS: tiZANidine HCL 4 MG TABLET PO SCH ×2 (08:40→21:01)
[2020-03-28] MEDS: TRIAMCINOLONE ACET 0.1% CR 15 GM TUBE TOP SCH ×2 (08:40→20:59)
[2020-03-28] MEDS: ESCITALOPRAM OXALATE 20 MG TAB PO SCH (08:40)
[2020-03-28] MEDS: PANTOprazole 40 MG TAB PO SCH ×2 (08:40→21:01)
[2020-03-28] MEDS: MULTIVITAMIN TAB PO SCH (08:40)
[2020-03-28] MEDS: GABAPENTIN 800 MG TAB PO SCH ×2 (08:40→21:00)
[2020-03-28] MEDS: HYOSCYAMINE SULFATE 0.125 MG TAB PO SCH (08:40)
[2020-03-28] MEDS: FERROUS GLUCONATE 324 MG TAB PO SCH (08:40)
[2020-03-28] MEDS: allopurinoL 100 MG TAB PO SCH ×2 (08:40→21:01)
[2020-03-28] MEDS: INSULIN GLARGINE SOLOSTAR 100 UNITS/ML 3 ML PEN SC SCH ×2 (08:42→21:00)
[2020-03-28] MEDS: INSULIN ASPART 100 UNITS/ML 3 ML PEN SC SCH ×4 (08:44→21:00)
[2020-03-28 08:45] LABS: BUN Creatinine Ratio 16.7 (10-20); Calcium 9.2 mg/dl (8.5-10.1); Creatinine Clr Calc Pharmacy 136.4 ml/min; Est GFR (African American) 103.1; Est GFR (Non-African American) 88.9; Potassium 4.1 mmol/L (3.5-5.1)
[2020-03-28 08:50] LABS: Prostate Specific Antigen 0.387 ng/ml (0-4)
[2020-03-28] MEDS ORDERED: LOPERAMIDE HCL 2 MG CAP PO PRN (16:15)
--- NOTE | 2020-03-28 16:15 | Hospitalist Progress Note ---
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, uses power chair at baseline PT/OT eval requested DM2-- insulin-requiring, well-controlled as of recent hemoglobin A1c of 7 history of DVT on anticoagulation, INR therapeutic chronic anemia, hemoglobin at baseline Full code update given to Pt's present at bedside Admission and Anticipated Discharge Date Admission Date: March 27, 2020 Subjective pt reports of feeling fine no fever episode no complain of abdominal pain feels like his baseline Physical Exam Physical Exam: GENERAL: Comfortable, pleasant, morbidly obese, no respiratory distress HEENT: Pale palpebral conjunctivae, no ptosis, dry buccal mucosa NECK : Supple, short neck, no tenderness CHEST : CTA, no tenderness HEART : RRR, no obvious murmurs ABDOMEN: distention, left-sided ostomy, non tender EXTREMITIES : Minimal LE swelling, NEUROLOGIC : paraplegic , awake and alert oriented to place , time and person Results & Data Results & Data ([facility]) Vital Signs (Past 12 Hours) Vital Signs Temp Pulse Pulse Resp BP Pulse Ox 03/28/20 15:11 36.3 C L 81 18 117/71 94 03/28/20 13:27 92 H 03/28/20 11:19 36.5 C 80 18 142/69 H 93 03/28/20 07:27 36.6 C 92 H 18 93/60 L 97
[2020-03-28] MEDS: METHENAMINE HIPPURATE 1 GM TAB PO SCH ×2 (16:46→22:34)
[2020-03-28] MEDS: CYCLOBENZAPRINE HCL 10 MG TAB PO SCH (20:59)
[2020-03-29] MEDS: DAPTOmycin 700 MG in SYRINGE 0 ML IV SCH (01:38)
[2020-03-29] MEDS: BACLOFEN 10 MG TAB PO SCH ×4 (06:12→20:26)
[2020-03-29] MEDS: TRIAMCINOLONE ACET 0.1% CR 15 GM TUBE TOP SCH ×2 (08:54→20:25)
[2020-03-29] MEDS: HYOSCYAMINE SULFATE 0.125 MG TAB PO SCH (08:55)
[2020-03-29] MEDS: GABAPENTIN 800 MG TAB PO SCH ×2 (08:55→20:27)
[2020-03-29] MEDS: LACTOBACILLUS ACIDOPHILUS (FLORANEX) TAB PO SCH ×2 (08:55→20:25)
[2020-03-29] MEDS: rOPINIRole HCL 1 MG TABLET PO SCH ×4 (08:55→20:27)
[2020-03-29] MEDS: allopurinoL 100 MG TAB PO SCH ×2 (08:56→20:28)
[2020-03-29] MEDS: FERROUS GLUCONATE 324 MG TAB PO SCH (08:56)
[2020-03-29] MEDS: PANTOprazole 40 MG TAB PO SCH ×2 (08:56→20:27)
[2020-03-29] MEDS: tiZANidine HCL 4 MG TABLET PO SCH ×2 (08:56→20:28)
[2020-03-29] MEDS: MULTIVITAMIN TAB PO SCH (08:56)
[2020-03-29] MEDS: METHENAMINE HIPPURATE 1 GM TAB PO SCH ×2 (08:56→20:28)
[2020-03-29] MEDS: ESCITALOPRAM OXALATE 20 MG TAB PO SCH (08:56)
[2020-03-29] MEDS: INSULIN GLARGINE SOLOSTAR 100 UNITS/ML 3 ML PEN SC SCH ×2 (08:58→20:26)
[2020-03-29] MEDS: INSULIN ASPART 100 UNITS/ML 3 ML PEN SC SCH ×4 (08:58→21:55)
[2020-03-29] MEDS: MEDICAL MARIJUANA PO SCH ×3 (08:59→21:54)
--- NOTE | 2020-03-29 10:03 | Communication Note ---
Date of Service: March 29, 2020 Patient has chronic suprapubic catheter which is changed every 4 weeks is due to change suprapubic catheter Patient's reports concerned that pt has anatomic abnormality ( extra skin ridge?) and very difficult for catheter change worried that his repeated UTI could be related to multiple attempts by home nursing while changing the catheter. Updated Urology as the catheter is chronic - Urology recommends, nursing to attempt to change the catheter With any obstruction or difficulty in catheter placement , urology can be contacted HX of DVT/PE : Patient's Coumadin is resumed, monitor PT/INR ROBERT : resolved Renal function back to baseline, all diuretics resumed Kamryn Peoples MD
[2020-03-29 10:48] LABS: INR 1.4 (0.9-1.1); Prothrombin Time 14.4 Seconds (9.0-12.0)
--- NOTE | 2020-03-29 11:02 | Hospitalist Progress Note ---
Date of Service March 29, 2020 Assessment & Plan (1) Severe sepsis: Presented with: SIRS -elevated white count plus lactic acid elevation Possible sources: Complicated UTI, hx suprapubic catheter (recent bout of Pseudomonas UTI status post ceftazidime Rx) pt started continued with IV ceftazidime per recent urine culture report (multidrug resistant Pseudomonas) limited abx option due to MDR and multi drug allergies added Daptomycin for chronic sacral decub ulcer Wound culture ordered urine culture shows pin point growth repeat urine culture ordered Urology consulted for repeated UTI /chronic suprapubic catheter -appreciate input Chronic suprapubic catheter, recurrent catheter induced complicated UTI Patient had telemetry medicine consult with [facility] infectious disease today morning Appreciate input from [facility] infectious disease consult Recommend continue current antibiotics, Ceftazidime and daptomycin Pending repeat urine and sacral decub ulcer culture Given chronic infection and chronic indwelling Martinez, recommends against chronic suppressive antibiotic therapy which will lead to further resistant organism 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, uses power chair at baseline DM2-- insulin-requiring, well-controlled as of recent hemoglobin A1c of 7 history of DVT Coumadin resumed, follow PT/INR chronic anemia, hemoglobin at baseline Full code DVT prophylaxis: On Coumadin Admission and Anticipated Discharge Date Admission Date: March 27, 2020 Subjective Patient offers no new complain today feels comfortable No cough, no fever or chills, no abdominal pain, Diarrhea/loose stool has resolved Physical Exam Physical Exam: GENERAL: Comfortable, pleasant, morbidly obese, no respiratory distress HEENT: Pale palpebral conjunctivae, no ptosis, dry buccal mucosa NECK : Supple, short neck, no tenderness CHEST : CTA, no tenderness HEART : RRR, no obvious murmurs ABDOMEN: distention, left-sided ostomy, non tender EXTREMITIES : Minimal LE swelling, NEUROLOGIC : paraplegic , awake and alert oriented to place , time and person Results & Data Results & Data ([facility]) Vital Signs (Past 12 Hours) Vital Signs Temp Pulse Resp BP Pulse Ox 03/29/20 07:29 36.3 C L 86 18 135/80 98 03/29/20 02:49 36.5 C 85 15 107/65 97 03/29/20 00:10 36.7 C 90 17 120/70 97
[2020-03-29] MEDS: FUROSEMIDE 40 MG TAB PO SCH ×2 (11:06→16:55)
[2020-03-29] MEDS: SPIRONOLACTONE 25 MG TAB PO SCH (12:37)
[2020-03-29] MEDS: WARFARIN SOD 7.5 MG TAB PO SCH (16:55)
--- NOTE | 2020-03-29 19:01 | Urology Progress Note ---
Date of Service March 29, 2020 Assessment & Plan (1) Severe sepsis: SP tube was changed by myself with an 18 Lao silicone catheter. The change went without problems. It was done in a sterile fashion. Consent was received through both the patient and his . The patient's did assist with this as she has been trying to learn how to do the suprapubic catheter changes. This is been a longtime issue. Has been longtime been a patient of Dr. Zabala however now that she is out of the area they have yet to establish with a new urologist. They also have been trying to establish with a new infectious disease doctor. Has been having recurrent episodes of Pseudomonas UTI which is becoming increasing in complexity and has led to multiple hospitalizations. Does do daily flushing with saline or sterile water. Discussed different options for other flushings including utilization of vinegar or utilization of an antibiotic such as gentamicin as this would allow cleaning of the urine without need for systemic antibiotics. Discussed other concerns and issues. Discussed other management. Discussed issues with colonization especially with a complex bacteria such as Pseudomonas. Discussed other medications such as fosfomycin as a possible oral medication for the future. Patient is planning to establish with urology at some point. Will need to coordinate this through our office. They do have home health set up who does there is exchanges typically without issues. Patient's complicated history and previous notes and other documentation was reviewed. Recent imaging was reviewed interpreted by myself. Complicated SP tube catheter exchange completed by myself. Subjective Patient is a partial Quadraplegic with severe neurogenic bladder and a suprapubic tube for catheter drainage. Patient developed ill feelings with UTI and sepsis as well as pain and pressure with discomfort. Patient underwent IV supportive care and antibiotics. Patient is afebrile. Managed with IV medications, IV fluids, and oral intake. Is doing better without considerable increase in pain or major issues. Patient has a suprapubic tube which is usually changed every 4 weeks. Family and patient and medical team concerned that might be a source of infection or contributing. Patient is very likely colonized at this point. Has had recurrent Pseudomonas infections with increasing complexity to treat. Has not developed severe vomiting or other issues. Is not experienced fever or chills. Has been tolerating oral medications. Is tolerating fluids. Has noticed some frequency and urgency and pressure. Has not had severe pain in the back and flank. Does have occasional burning and irritation. No severe episodes or major changes. Catheter was an 18 Lao silicone catheter which was removed by myself. A new 18 Lao suprapubic catheter was placed with the balloon elevated to 10 cc and good urine drainage received. It was done in a sterile fashion. Patient had consented and the patient's assisted during the process that she is trying to learn to do the suprapubic catheter changes herself to help with management. Review of Systems Review of Systems: All systems reviewed & are unremarkable except as noted in HPI & below Physical Exam Physical Exam: General: Alert in no acute distress. Partial quadriplegic with poor mobility and morbid obesity. Chronic Medical issues. HEENT: Normocephalic. Inspection normal. Cranial Nerves 2-12 Grossly intact with some hearing issues. Normal inspection of face. Normal inspection of neck. Psychologic: Normal affect. Baseline issues with memory. No major problems. Respiratory: Nonlabored. No use of accessory muscles. No tachypnea or dyspnea. Cardiovascular: No tachycardia Skin: [place] and Dry. No rashes or visible lesions. Chronic skin wound is covered and being managed. Extremities/Lymphatics: Moderate edema. Tremors of lower extremity. Abdomen: Morbidly obese and distended with a suprapubic tube within a pannus fold. No rebound or guarding. Light blue urine draining secondary to Uribel. : SP tube changed and balloon elevated without issue or problem. Results & Data Vital Signs (Past 12 Hours) Vital Signs Temp Pulse Pulse Resp BP BP Pulse Ox 03/29/20 16:00 79 03/29/20 15:22 36.5 C 82 18 110/63 95 03/29/20 11:51 82 03/29/20 11:25 36.4 C L 83 18 121/71 94 03/29/20 07:29 36.3 C L 86 18 135/80 98 PG Care Time/CCT Total # of Minutes Spent Total Time Spent with Patient: Total time spent is greater than 50% in coordination of care (as documented) at patient's floor/unit and/or counseling patient: Coding Level of Care Code 29288 Subseq Hosp Care Lvl 3 Diagnoses Severe sepsis A41.9; R65.20
[2020-03-29] MEDS: CYCLOBENZAPRINE HCL 10 MG TAB PO SCH (20:25)
[2020-03-29] MEDS: MAGNESIUM OXIDE 400 MG TAB PO SCH (20:27)
[2020-03-30] MEDS: DAPTOmycin 700 MG in SYRINGE 0 ML IV SCH (01:43)
[2020-03-30] MEDS: BACLOFEN 10 MG TAB PO SCH ×4 (05:54→21:01)
[2020-03-30 06:44] LABS: INR 1.3 (0.9-1.1); Prothrombin Time 13.4 Seconds (9.0-12.0)
[2020-03-30] MEDS: LACTOBACILLUS ACIDOPHILUS (FLORANEX) TAB PO SCH ×2 (08:35→21:02)
[2020-03-30] MEDS: MAGNESIUM OXIDE 400 MG TAB PO SCH ×2 (08:35→21:00)
[2020-03-30] MEDS: FUROSEMIDE 40 MG TAB PO SCH ×2 (08:36→16:56)
[2020-03-30] MEDS: rOPINIRole HCL 1 MG TABLET PO SCH ×4 (08:36→21:00)
[2020-03-30] MEDS: PANTOprazole 40 MG TAB PO SCH ×2 (08:36→21:01)
[2020-03-30] MEDS: GABAPENTIN 800 MG TAB PO SCH ×2 (08:36→21:00)
[2020-03-30] MEDS: tiZANidine HCL 4 MG TABLET PO SCH ×2 (08:36→21:00)
[2020-03-30] MEDS: allopurinoL 100 MG TAB PO SCH ×2 (08:36→21:01)
[2020-03-30] MEDS: METHENAMINE HIPPURATE 1 GM TAB PO SCH ×2 (08:36→21:01)
[2020-03-30] MEDS: TRIAMCINOLONE ACET 0.1% CR 15 GM TUBE TOP SCH ×2 (08:37→21:02)
[2020-03-30] MEDS: HYOSCYAMINE SULFATE 0.125 MG TAB PO SCH (08:37)
[2020-03-30] MEDS: ESCITALOPRAM OXALATE 20 MG TAB PO SCH (08:37)
[2020-03-30] MEDS: FERROUS GLUCONATE 324 MG TAB PO SCH (08:37)
[2020-03-30] MEDS: SPIRONOLACTONE 25 MG TAB PO SCH (08:37)
[2020-03-30] MEDS: MULTIVITAMIN TAB PO SCH (08:37)
[2020-03-30] MEDS: NYSTATIN POWDER 15GM BTL EXT PRN (08:38)
[2020-03-30] MEDS: MEDICAL MARIJUANA PO SCH ×3 (08:38→22:15)
[2020-03-30] MEDS: INSULIN ASPART 100 UNITS/ML 3 ML PEN SC SCH ×4 (08:45→21:03)
[2020-03-30] MEDS: INSULIN GLARGINE SOLOSTAR 100 UNITS/ML 3 ML PEN SC SCH ×2 (08:46→21:03)
[2020-03-30] MEDS: WARFARIN SOD 5 MG TAB PO SCH (16:58)
--- NOTE | 2020-03-30 17:41 | Hospitalist Progress Note ---
Date of Service March 30, 2020 Assessment & Plan (1) Severe sepsis: Presented with: SIRS -elevated white count plus lactic acid elevation Possible sources: Complicated UTI, hx suprapubic catheter (recent bout of Pseudomonas UTI status post ceftazidime Rx) pt started continued with IV ceftazidime per recent urine culture report (multidrug resistant Pseudomonas) limited abx option due to MDR and multi drug allergies added Daptomycin for chronic sacral decub ulcer Wound culture : gram positive cocci urine culture no growth ( pt was already started on Abx ) Urology consulted for repeated UTI /chronic suprapubic catheter -appreciate input /suprabupic catheter changed by urology team at bedside out pt follow up with [facility] urology in clinic Chronic suprapubic catheter, recurrent catheter induced complicated UTI Patient had telemetry medicine consult with [facility] infectious disease today morning Appreciate input from [facility] infectious disease consult Recommend continue current antibiotics, Ceftazidime and daptomycin sacral decub ulcer : gram positive cocci Given chronic infection and chronic indwelling Martinez, recommends against chronic suppressive antibiotic therapy which will lead to further resistant organism 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, uses power chair at baseline DM2-- insulin-requiring, well-controlled as of recent hemoglobin A1c of 7 history of DVT Coumadin resumed, follow PT/INR chronic anemia, hemoglobin at baseline Full code DVT prophylaxis: On Coumadin Admission and Anticipated Discharge Date Admission Date: March 27, 2020 Subjective pt reports of feeling well no new complain no fever or chills suprabubic catheter removed yesterday no abdominal pain , no sob , Physical Exam Physical Exam: GENERAL: Comfortable, pleasant, morbidly obese, no respiratory distress HEENT: Pale palpebral conjunctivae, no ptosis, dry buccal mucosa NECK : Supple, short neck, no tenderness CHEST : CTA, no tenderness HEART : RRR, no obvious murmurs ABDOMEN: distention, left-sided ostomy, non tender EXTREMITIES : Minimal LE swelling, NEUROLOGIC : paraplegic , awake and alert oriented to place , time and person Results & Data Results & Data ([facility]) Vital Signs (Past 12 Hours) Vital Signs Temp Pulse Pulse Resp BP Pulse Ox 03/30/20 15:58 36.6 C 85 18 125/76 93 03/30/20 12:48 84 03/30/20 11:30 36.3 C L 72 18 96/58 L 94 03/30/20 07:21 36.8 C 85 18 103/66 97
[2020-03-30] MEDS: CYCLOBENZAPRINE HCL 10 MG TAB PO SCH (21:02)
[2020-03-31] MEDS: DAPTOmycin 700 MG in SYRINGE 0 ML IV SCH (01:39)
[2020-03-31] MEDS: BACLOFEN 10 MG TAB PO SCH ×4 (05:55→21:07)
[2020-03-31] MEDS: TRIAMCINOLONE ACET 0.1% CR 15 GM TUBE TOP SCH ×2 (08:11→21:07)
[2020-03-31] MEDS: NYSTATIN POWDER 15GM BTL EXT PRN ×2 (08:11→21:08)
[2020-03-31] MEDS: GABAPENTIN 800 MG TAB PO SCH ×2 (08:11→21:06)
[2020-03-31] MEDS: FUROSEMIDE 40 MG TAB PO SCH ×2 (08:12→17:00)
[2020-03-31] MEDS: MAGNESIUM OXIDE 400 MG TAB PO SCH (08:12)
[2020-03-31] MEDS: LACTOBACILLUS ACIDOPHILUS (FLORANEX) TAB PO SCH ×2 (08:12→21:06)
[2020-03-31] MEDS: FERROUS GLUCONATE 324 MG TAB PO SCH (08:12)
[2020-03-31] MEDS: ESCITALOPRAM OXALATE 20 MG TAB PO SCH (08:12)
[2020-03-31] MEDS: SPIRONOLACTONE 25 MG TAB PO SCH (08:12)
[2020-03-31] MEDS: HYOSCYAMINE SULFATE 0.125 MG TAB PO SCH (08:13)
[2020-03-31] MEDS: allopurinoL 100 MG TAB PO SCH ×2 (08:13→21:07)
[2020-03-31] MEDS: METHENAMINE HIPPURATE 1 GM TAB PO SCH ×2 (08:13→21:06)
[2020-03-31] MEDS: PANTOprazole 40 MG TAB PO SCH ×2 (08:13→21:07)
[2020-03-31] MEDS: MULTIVITAMIN TAB PO SCH (08:13)
[2020-03-31] MEDS: tiZANidine HCL 4 MG TABLET PO SCH ×2 (08:13→21:09)
[2020-03-31] MEDS: rOPINIRole HCL 1 MG TABLET PO SCH ×4 (08:13→21:05)
[2020-03-31] MEDS: INSULIN GLARGINE SOLOSTAR 100 UNITS/ML 3 ML PEN SC SCH ×2 (08:15→21:10)
[2020-03-31] MEDS: INSULIN ASPART 100 UNITS/ML 3 ML PEN SC SCH ×4 (08:15→21:11)
[2020-03-31] MEDS: MEDICAL MARIJUANA PO SCH ×3 (08:18→22:18)
[2020-03-31 09:13] LABS: INR 1.3 (0.9-1.1); Prothrombin Time 13.1 Seconds (9.0-12.0)
[2020-03-31 09:29] LABS: Creatinine Clr Calc Pharmacy 118.6 ml/min; Est GFR (Non-African American) 75.9
--- NOTE | 2020-03-31 15:27 | Hospitalist Progress Note ---
Date of Service March 31, 2020 Assessment & Plan (1) Severe sepsis: Presented with: SIRS -elevated white count plus lactic acid elevation Possible sources: Complicated UTI, hx suprapubic catheter (recent bout of Pseudomonas UTI status post ceftazidime Rx)/infected sacral wound /pressure ulcer ( present on admission ) Wound culture 2 organisms : Enterococcus -continue with IV Daptomycin - sensitive /pseudomonas -multi drug resistant -cont IV Ceftazidime ( sensitive ) will need 2 weeks therapy ordered for PICC line Urology consulted for repeated UTI /chronic suprapubic catheter -appreciate input /suprabupic catheter changed by urology team at bedside out pt follow up with [facility] urology in clinic Chronic suprapubic catheter, recurrent catheter induced complicated UTI Patient had telemetry medicine consult with [facility] infectious disease today morning Appreciate input from [facility] infectious disease consult Urine culture : yeast not gorge species possible colonization started on PO Diflucan 200 mg daily for 14 days Given chronic infection and chronic indwelling Martinez, recommends against chronic suppressive antibiotic therapy which will lead to further resistant organism 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, uses power chair at baseline DM2-- insulin-requiring, well-controlled as of recent hemoglobin A1c of 7 history of DVT on coumadin chronic anemia, hemoglobin at baseline Full code DVT prophylaxis: On Coumadin INR subtheraputic very high risk for DVT , given morbid obesity , paraplegic added Sub q heparin till INR ~2 DISPOSITION : expected to be discharged home with IV Abx when medically stable Admission and Anticipated Discharge Date Admission Date: March 27, 2020 Physical Exam Physical Exam: GENERAL: Comfortable, pleasant, morbidly obese, no respiratory distress HEENT: Pale palpebral conjunctivae, no ptosis, dry buccal mucosa NECK : Supple, short neck, no tenderness CHEST : CTA, no tenderness HEART : RRR, no obvious murmurs ABDOMEN: distention, left-sided ostomy, non tender EXTREMITIES : Minimal LE swelling, NEUROLOGIC : paraplegic , awake and alert oriented to place , time and person Results & Data Results & Data ([facility]) Vital Signs (Past 12 Hours) Vital Signs Temp Pulse Pulse Resp BP BP Pulse Ox 03/31/20 12:40 76 03/31/20 11:56 36.6 C 77 16 124/77 92 03/31/20 07:34 36.5 C 75 18 113/73 96 03/31/20 04:36 36.8 C 82 18 132/73 96
[2020-03-31] MEDS: ASCORBIC ACID 500 MG TAB PO SCH (16:56)
[2020-03-31] MEDS: WARFARIN SOD 5 MG TAB PO SCH (17:00)
[2020-03-31] MEDS: CYCLOBENZAPRINE HCL 10 MG TAB PO SCH (21:06)
[2020-03-31] MEDS: HEPARIN SOD 5,000 UNIT/0.5 ML VIAL SQ SCH (21:15)
[2020-04-01] MEDS: DAPTOmycin 700 MG in SYRINGE 0 ML IV SCH (01:40)
[2020-04-01] MEDS: BACLOFEN 10 MG TAB PO SCH ×4 (05:44→21:12)
[2020-04-01] MEDS: HEPARIN SOD 5,000 UNIT/0.5 ML VIAL SQ SCH ×3 (05:44→21:17)
[2020-04-01] MEDS: FUROSEMIDE 40 MG TAB PO SCH ×2 (08:31→17:08)
[2020-04-01] MEDS: HYOSCYAMINE SULFATE 0.125 MG TAB PO SCH (08:31)
[2020-04-01] MEDS: allopurinoL 100 MG TAB PO SCH ×2 (08:32→21:12)
[2020-04-01] MEDS: ASCORBIC ACID 500 MG TAB PO SCH ×3 (08:32→17:07)
[2020-04-01] MEDS: SPIRONOLACTONE 25 MG TAB PO SCH (08:33)
[2020-04-01] MEDS: PANTOprazole 40 MG TAB PO SCH ×2 (08:33→21:11)
[2020-04-01] MEDS: METHENAMINE HIPPURATE 1 GM TAB PO SCH ×2 (08:33→21:10)
[2020-04-01] MEDS: rOPINIRole HCL 1 MG TABLET PO SCH ×4 (08:33→21:10)
[2020-04-01] MEDS: FERROUS GLUCONATE 324 MG TAB PO SCH (08:34)
[2020-04-01] MEDS: LACTOBACILLUS ACIDOPHILUS (FLORANEX) TAB PO SCH ×2 (08:34→21:12)
[2020-04-01] MEDS: MEDICAL MARIJUANA PO SCH ×3 (08:35→22:01)
[2020-04-01] MEDS: MULTIVITAMIN TAB PO SCH (08:35)
[2020-04-01] MEDS: TRIAMCINOLONE ACET 0.1% CR 15 GM TUBE TOP SCH ×2 (08:35→21:15)
[2020-04-01] MEDS: tiZANidine HCL 4 MG TABLET PO SCH ×2 (08:35→21:11)
[2020-04-01] MEDS: GABAPENTIN 800 MG TAB PO SCH ×2 (08:35→21:11)
[2020-04-01] MEDS: ESCITALOPRAM OXALATE 20 MG TAB PO SCH (08:35)
[2020-04-01] MEDS: INSULIN ASPART 100 UNITS/ML 3 ML PEN SC SCH ×4 (08:36→21:16)
[2020-04-01] MEDS: INSULIN GLARGINE SOLOSTAR 100 UNITS/ML 3 ML PEN SC SCH ×2 (08:36→21:18)
[2020-04-01 09:01] LABS: INR 1.2 (0.9-1.1); Prothrombin Time 12.9 Seconds (9.0-12.0)
--- NOTE | 2020-04-01 14:44 | Communication Note ---
Date of Service: April 01, 2020 Patient's left sacral wound positive for enterococcus: And Pseudomonas Discussed with infectious disease in [place], Recommends to DC daptomycin and ceftaroline IV Zosyn for 10 days Penicillin is added in allergy list as rash ID recommends to give Benadryl prior to first dose and if patient able to tolerate Zosyn will be continued Urine culture of yeast not Jocelyn ID recommends Diflucan 400 mg p.o. daily for 7 days Patient has ultrasound-guided IV site already Arrangements made for home antibiotic, case management updated plan to discharge home tomorrow Kamryn Peoples MD
[2020-04-01] MEDS ORDERED: diphenhydrAMINE Capsule 25 MG CAP PO ONE (14:45)
[2020-04-01] MEDS ORDERED: PIPERACILLIN/TAZOBACTAM 4.5 GM in DEXTROSE 5% 100 ML IV ONE (15:00)
[2020-04-01] MEDS: WARFARIN SOD 7.5 MG TAB PO SCH (15:25)
[2020-04-01] MEDS ORDERED: PIPERACILL/TAZOBAC CONSULT ACTIVE PRN ×2 (15:42→17:51)
[2020-04-01] MEDS: FLUCONAZOLE 100 MG TAB PO SCH (17:07)
--- NOTE | 2020-04-01 17:25 | Hospitalist Progress Note ---
Date of Service April 01, 2020 Assessment & Plan (1) Severe sepsis: Presented with: SIRS -elevated white count plus lactic acid elevation Possible sources: Complicated UTI, hx suprapubic catheter (recent bout of Pseudomonas UTI status post ceftazidime Rx)/infected sacral wound /pressure ulcer ( present on admission ) Wound culture 2 organisms : Enterococcus - /pseudomonas Discussed with infectious disease doctor at [place] Antibiotic will be changed to IV Zosyn, Penicillin is listed as rash, patient does not recall any significant allergic reaction to it Benadryl p.o. given prior to first infusion, No rash noted Continue IV Zosyn 4.5 g every 8 hours Patient will need total 10 days of treatment Urology consulted for repeated UTI /chronic suprapubic catheter -appreciate input /suprabupic catheter changed by urology team at bedside out pt follow up with [facility] urology in clinic Chronic suprapubic catheter, recurrent catheter induced complicated UTI Patient had telemetry medicine consult with [facility] infectious disease today morning Appreciate input from [facility] infectious disease consult Change of antibiotic as outlined above Urine culture : yeast not gorge species possible colonization started on PO Diflucan 200 mg daily for 14 days Given chronic infection and chronic indwelling Martinez, recommends against chronic suppressive antibiotic therapy which will lead to further resistant organism 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, uses power chair at baseline DM2-- insulin-requiring, well-controlled as of recent hemoglobin A1c of 7 history of DVT on coumadin chronic anemia, hemoglobin at baseline Full code DVT prophylaxis: On Coumadin INR subtheraputic very high risk for DVT , given morbid obesity , paraplegic added Sub q heparin till INR ~2 DISPOSITION : expected to be discharged home with IV Ab on 03/25/2020 updated at bedside Admission and Anticipated Discharge Date Admission Date: March 27, 2020 Subjective Offers no new complaint, feels fine, no fever or chills no abdominal pain no nausea vomiting or diarrhea Has ultrasound-guided IV site placed on right arm, No pain or discomfort at the suprapubic catheter site Physical Exam Physical Exam: GENERAL: Comfortable, pleasant, morbidly obese, no respiratory distress HEENT: Pale palpebral conjunctivae, no ptosis, dry buccal mucosa NECK : Supple, short neck, no tenderness CHEST : CTA, no tenderness HEART : RRR, no obvious murmurs ABDOMEN: distention, left-sided ostomy, non tender EXTREMITIES : Minimal LE swelling, NEUROLOGIC : paraplegic , awake and alert oriented to place , time and person Results & Data Results & Data ([facility]) Vital Signs (Past 12 Hours) Vital Signs Temp Pulse Resp BP Pulse Ox 04/01/20 15:19 36.5 C 73 18 116/69 96 04/01/20 07:29 36.5 C 72 18 112/69 98
[2020-04-01] MEDS ORDERED: DAPTOmycin 450 MG in SYRINGE 0 ML IV SCH (20:00)
[2020-04-01] MEDS: CYCLOBENZAPRINE HCL 10 MG TAB PO SCH (21:12)
[2020-04-01] MEDS: NYSTATIN POWDER 15GM BTL EXT PRN (21:15)
[2020-04-01] MEDS: diphenhydrAMINE Capsule 25 MG CAP PO PRN (22:01)
[2020-04-01] MEDS: PIPERACILLIN/TAZOBACTAM 4.5 GM in DEXTROSE 5% 100 ML IV SCH (22:39)
[2020-04-02] MEDS ORDERED: diphenhydrAMINE Capsule 25 MG CAP PO ONE (01:15)
[2020-04-02] MEDS: diphenhydrAMINE Capsule 25 MG CAP PO PRN ×2 (06:26→14:36)
[2020-04-02] MEDS: HEPARIN SOD 5,000 UNIT/0.5 ML VIAL SQ SCH ×2 (06:27→14:36)
[2020-04-02] MEDS: BACLOFEN 10 MG TAB PO SCH ×3 (06:28→16:37)
[2020-04-02] MEDS: PIPERACILLIN/TAZOBACTAM 4.5 GM in DEXTROSE 5% 100 ML IV SCH ×2 (08:02→15:10)
[2020-04-02] MEDS: METHENAMINE HIPPURATE 1 GM TAB PO SCH (08:07)
[2020-04-02] MEDS: ESCITALOPRAM OXALATE 20 MG TAB PO SCH (08:07)
[2020-04-02] MEDS: tiZANidine HCL 4 MG TABLET PO SCH (08:08)
[2020-04-02] MEDS: PANTOprazole 40 MG TAB PO SCH (08:08)
[2020-04-02] MEDS: FERROUS GLUCONATE 324 MG TAB PO SCH (08:08)
[2020-04-02] MEDS: MULTIVITAMIN TAB PO SCH (08:08)
[2020-04-02] MEDS: allopurinoL 100 MG TAB PO SCH (08:08)
[2020-04-02] MEDS: GABAPENTIN 800 MG TAB PO SCH (08:08)
[2020-04-02] MEDS: SPIRONOLACTONE 25 MG TAB PO SCH (08:08)
[2020-04-02] MEDS: ASCORBIC ACID 500 MG TAB PO SCH ×2 (08:09→12:40)
[2020-04-02] MEDS: LACTOBACILLUS ACIDOPHILUS (FLORANEX) TAB PO SCH (08:09)
[2020-04-02] MEDS: FLUCONAZOLE 100 MG TAB PO SCH (08:10)
[2020-04-02] MEDS: TRIAMCINOLONE ACET 0.1% CR 15 GM TUBE TOP SCH (08:10)
[2020-04-02] MEDS: FUROSEMIDE 40 MG TAB PO SCH ×2 (08:10→16:37)
[2020-04-02] MEDS: rOPINIRole HCL 1 MG TABLET PO SCH ×3 (08:10→16:36)
[2020-04-02] MEDS: HYOSCYAMINE SULFATE 0.125 MG TAB PO SCH (08:10)
[2020-04-02] MEDS: NYSTATIN POWDER 15GM BTL EXT PRN (08:11)
[2020-04-02] MEDS: INSULIN ASPART 100 UNITS/ML 3 ML PEN SC SCH ×3 (08:42→17:40)
[2020-04-02] MEDS: MEDICAL MARIJUANA PO SCH ×2 (08:42→14:36)
[2020-04-02] MEDS: INSULIN GLARGINE SOLOSTAR 100 UNITS/ML 3 ML PEN SC SCH (08:42)
[2020-04-02] MEDS ORDERED: DAPTOmycin 450 MG in SYRINGE 0 ML IV SCH (14:00)
--- NOTE | 2020-04-02 14:01 | Discharge Summary ---
Date of Service April 02, 2020 Admission HPI Per Admitting Provider History obtained from patient, family, and records. 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 dif Recent confinement last week for severe sepsis/septic shock secondary to complicated UTI Urine cultures grew Pseudomonas. Patient discharged on Ceftazidime course. Since discharge from hospital patient with worsening reflux, belching, epigastric discomfort symptoms. Stools noted to be loose and nonbloody. No fever, no chills. Seen at PCP's office yesterday. PPI initiated for GERD. Later at a grocery, patient experience arm weakness/fatigue which he associates with hypoglycemic episode. Blood sugar not obtained at the grocery but symptoms improved with sugar intake as per patient. Later yesterday afternoon, patient was noted by to have decreased responsiveness. Patient staring blankly and could not hear her. Episodes similar to event from last week leading to confinement for sepsis. Blood sugar at home noted to be 100s. SBP 180s at one point as per . Patient denies chest pain, S OB, cough, headache. Achy abdominal discomfort. Patient brought to the ER by . Initial SBP at the ER was 80s. MEDICAL HISTORY: As above. SURGICAL HISTORY: Kidney stone procedures, suprapubic catheter placement, neck surgery, IVC filter placement, ostomy//bowel surgery FAMILY HISTORY: DM, prostate cancer PERSONAL SOCIAL HISTORY: Nonsmoker. No chronic intake of alcoholic beverages. On disability. Principal Diagnosis Infected sacral wound: On IV antibiotics Chronic indwelling suprapubic catheter Paraplegia Discharge Exam Constitutional: WD/WN, vitals as above no acute distress Eyes: PERRL, conjunctivae normal, anicteric sclerae ENMT: external ear and nose normal, oropharynx normal Neck: trachea midline, no thyromegaly Respiratory: normal respiratory effort, lungs clear to auscultation Cardiovascular: Rate/Rhythm: regular rate and regular rhythm Gastrointestinal (Abdomen): Percussion/Palpation: abdomen soft; abdomen nontender Prepubic catheter present Neurologic: Quadriplegic Psychiatric: A+Ox3, euthymic affect Discharge Data Allergies Allergy/AdvReac Type Severity Reaction Status Date / Time codeine Allergy Severe THROAT Verified 03/26/20 22:28 SWELLS latex Allergy Intermediate welts Verified 03/26/20 22:28 piperacillin Allergy Intermediate RASH Verified 03/26/20 22:28 Sulfa (Sulfonamide Allergy Intermediate HIVES Verified 03/26/20 22:28 Antibiotics) tazobactam Allergy Intermediate RASH Verified 03/26/20 22:28 aztreonam Allergy Unknown unknown Verified 03/26/20 22:28 lactose AdvReac Intermediate GI symptoms Verified 03/26/20 22:28 Consultations 03/26/20 23:28 ED Decision to Admit Stat 03/27/20 15:00 Consult Urology Routine 03/28/20 16:02 Consult Infectious Diseases Routine Ordered Studies 03/27/20 00:44 CT abd pelvis IV con only Urgent CT head/brain wo con Urgent 03/27/20 02:08 US gallbladder Urgent Hospital Course (1) Severe sepsis: Presented with: SIRS -elevated white count plus lactic acid elevation Possible sources: Complicated UTI, hx suprapubic catheter (recent bout of Pseudomonas UTI status post ceftazidime Rx)/infected sacral wound /pressure ulcer ( present on admission ) Wound culture 2 organisms : Enterococcus - /pseudomonas Discussed with infectious disease doctor at [place] Antibiotic will be changed to IV Zosyn, Penicillin is listed as rash, patient does not recall any significant allergic reaction to it Benadryl p.o. given prior to first infusion, No rash noted Continue IV Zosyn 4.5 g every 8 hours Patient will need total 10 days of treatment arrangements made for home IV Abx pt will receive cont IV zosyn infusion for 24 hrs for 10 days Urology consulted for repeated UTI /chronic suprapubic catheter -appreciate input /suprabupic catheter changed by urology team at bedside out pt follow up with [facility] urology in clinic Chronic suprapubic catheter, recurrent catheter induced complicated UTI Patient had telemetry medicine consult with [facility] infectious disease today morning Appreciate input from [facility] infectious disease consult Change of antibiotic as outlined above Urine culture : yeast not gorge species possible colonization started on PO Diflucan 200 mg daily for 14 days Given chronic infection and chronic indwelling Martinez, recommends against chronic suppressive antibiotic therapy which will lead to further resistant organism 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, uses power chair at baseline DM2-- insulin-requiring, well-controlled as of recent hemoglobin A1c of 7 history of DVT on coumadin chronic anemia, hemoglobin at baseline Full code DVT prophylaxis: On Coumadin DISPOSITION : discharge home today updated at bedside Total Time Total Time Spent Total Time Spent (In Minutes): 45 mins Total Time Includes: Examination of the Patient, Discharge Planning and Medication Reconciliation Discharge Plan Discharge Items Patient Disposition: Home - Home Health Services Reason For Visit: SEPSIS Discharge Diagnosis: Infected sacral wound: On IV antibiotics Chronic indwelling suprapubic catheter Paraplegia Activity: Resume your previous activity Non-emergency contact: Primary Care Provider Call non-emergency contact if: you have any medication questions Follow-up/Referrals: Toño Dominguez DO [Physician] - (Follow-up in clinic in 1-2 weeks) Wilder Stanford MD [Primary Care Provider] - 04/10/20 9:40 am (04/10/2020 9:40 AM Provider Wilder Stanford MD Department Internal Medicine [facility] ) Diet: Carb Consistent or DM2 and Heart Healthy Addtl Attending Provider Instructions: He was discharged on IV antibiotic Zosyn 4.8 g will be given as continuous IV infusion, Ultrasound-guided IV line should be flushed as per protocol Total antibiotic treatment course: 10 days Continue to take Lactinex, probiotics: To prevent antibiotic induced gastroenteritis/C. difficile Please notify your family physician, any fever or chills, increased fatigue, multiple loose bowel movements, more than usual You will be followed with urology Dr. Toño Dominguez at [facility] physician urology clinic Please call to schedule an appointment in next 1-2 weeks Do not take nitrofurantoin: Can result with more drug resistant bacterial growth in urine Your discharged on a new drug prescribed by urology: Methenamine 1 g take 1 tablet twice daily It causes to increased acidity in your urine/urinary bladder which prevents bacterial growth Urine culture: Grew yeast: Common infection with chronic indwelling catheter Your discharged with antifungal: Diflucan 200 mg tablet /take 2 tablets(400 mg) twice daily for 10 days Diflucan interacts with Coumadin, which may cause lowering your INR Please notify your coagulation clinic regarding your prescription with Diflucan Coagulation clinic will contact you for close monitoring/more frequent blood draw and adjustment of Coumadin dose while taking Diflucan. Pending Studies at Discharge: No Stand-Alone Forms: My [facility], Smoking Cessation Medications and DC Order Prescriptions: New diphenhydramine HCl [Benadryl] 25 mg Capsule 25 mg PO Q8 PRN (Reason: Itching) 30 Days Qty: 90 RF: 0 piperacillin-tazobactam [Zosyn] 4.5 gram recon soln 4.5 gm IV Q8H 10 Days RF: 0 methenamine hippurate 1 gram Tablet 1 g PO BID 30 Days Qty: 60 RF: 2 fluconazole [Diflucan] 200 mg tablet 200 mg PO DAILY 14 Days Qty: 14 RF: 0 Continued triamcinolone acetonide 0.1 % cream 1 appln TOP BID RF: 0 warfarin 5 mg tablet 5 mg PO .4XWK @ HS RF: 0 escitalopram oxalate 20 mg tablet 20 mg PO QAM RF: 0 Novolin 70/30 U-100 Insulin 100 unit/mL (70-30) suspension See Rx Instructions .ROUTE .COMPLEX RF: 0 nystatin 100,000 unit/gram powder 1 appln TOP BID PRN (Reason: BREAKOUTS) RF: 0 atorvastatin 40 mg tablet 40 mg PO HS RF: 0 (DME) OneTouch Ultra Blue Test Strip strip See Rx Instructions .ROUTE .MEDSUPPLY Qty: 10 RF: 0 allopurinol 100 mg Tablet 100 mg PO BID RF: 0 ascorbic acid (vitamin C) 250 mg Tablet 250 mg PO TIDM RF: 0 ropinirole 1 mg Tablet 1 mg PO QID RF: 0 furosemide 40 mg Tablet 40 mg PO BID RF: 0 gabapentin 800 mg Tablet 800 mg PO BID RF: 0 ferrous gluconate 324 mg (38 mg iron) Tablet 324 mg PO DAILY RF: 0 multivitamin Tablet 1 tab PO QAM RF: 0 [id number]-algal oil [Metanx (algal oil)] 3 mg-35 mg-2 mg -90.314 mg Capsule 1 cap PO BID RF: 0 pantoprazole 40 mg Tablet,Delayed Release (Dr/Ec) 40 mg PO BID RF: 0 magnesium oxide 400 mg (241.3 mg magnesium) Tablet 400 mg PO BID RF: 0 nystatin-triamcinolone 100,000-0.1 unit/g-% Cream 1 dose Topical BID PRN (Reason: BREAKOUTS) RF: 0 insulin regular human 100 unit/mL solution 0 unit subcut UD PRN (Reason: ELEVATED BSG) RF: 0 baclofen 10 mg tablet See Rx Instructions .ROUTE .COMPLEX RF: 0 warfarin [Coumadin] 5 mg Tablet 7.5 mg PO .3XWK @ HS RF: 0 cyclobenzaprine 10 mg tablet 15 mg PO HS RF: 0 hyoscyamine sulfate 0.125 mg tablet 0.125 mg PO DAILY RF: 0 Uro-MP 118-10-40.8-36 mg capsule 2 cap PO DAILY RF: 0 tizanidine 4 mg tablet 4 mg PO BID RF: 0 potassium chloride 10 mEq tablet extended release 10 meq PO BID RF: 0 spironolactone [Aldactone] 25 mg tablet 25 mg PO DAILY RF: 0 metformin [Glucophage] 1,000 mg tablet 1,000 mg PO BID RF: 0 Lactobacillus acidoph-L.bulgar [Floranex] 1 million cell tablet 1 tab PO BID RF: 0 Medical Marijuana 3 drp PO TID RF: 0 Discontinued nitrofurantoin monohyd/m-cryst 100 mg capsule 100 mg PO DAILY Qty: 30 RF: 6 Discharge Orders: Discharge Order (Routine); Ordered 04/02/20 Ordered By: Kamryn Peoples Admission Data Admit Date/Time: 03/27/20 02:12 Attending Provider: Kamryn Peoples Admit Provider: Marlon Brandt Primary Care Provider: Wilder Stanford Other Providers: [place] ; Marlon Brandt ; Steve Poole ; Hill Perez ; Jigar Chu I. ; David Moreno ; Oly Ho ; Sola Partida ; Toño Dominguez ; Jyotsna Morrissey Melissa A. ; Alistair Alexandra ; Maria M Retana ; Dereck Mejia ; Ellen Garcia ; Roque Mcgovern I. ; Casey Bell II ; Yeny Leary ; Amaury Jenkins Other Interventions: Discharge Summary Assessment (RN) Last Done: 04/02/20 11:48
[2020-04-02 14:58] VITALS: BP 114/71; PULSE 67; TEMP 97.7; O2SAT 93
[2020-04-02] MEDS: WARFARIN SOD 5 MG TAB PO SCH (16:36)
--- NOTE | 2020-04-03 16:27 | Electrocardiogram Report ---
Test Reason : Blood Pressure : / mmHG Vent. Rate : 072 BPM Atrial Rate : 072 BPM P-R Int : 192 ms QRS Dur : 140 ms QT Int : 436 ms P-R-T Axes : 037 011 000 degrees QTc Int : 477 ms Normal sinus rhythm Right bundle branch block T wave abnormality, consider lateral ischemia Abnormal ECG When compared with ECG of 26-MAR-2020 21:24, T wave inversion now evident in Lateral leads Confirmed by Steve Khan ([id number]) on 04/03/2020 4:27:24 PM Referred By: Wilder Stanford Confirmed By:Steve Khan
--- NOTE | 2020-04-04 11:23 | Communication Note ---
Date of Service: April 04, 2020 attending addendum : pt was discharged on 04/02/20 on IV zozyn ( after discussing with ID in [place] ) for enterococcus and pseudomonas infection in sacral decub ulcer ID aware of PCN is noted as allergy rash recommends to take it with benadryl pt received 2 doses of Iv zosyn in hospital no rash or adverse effect noted had mild itching in initial dose resolved with po benadryl pts called to day pt developing hives with IV zosyn infusion , taking PO benadryl 8 hrs asked to dc IV Zosyn infusion updated [facility] Russo new prescription for IV Daptomycin 450 mg IV q daily ( entercoccus ) /Ceftazidime 2 gm q8hrs ( pseudomonas ) -8 days will be given to CM Lab work : CPK /BMP in 7 days hold statin for 8 days ( on daptomycin ) updated over phone Kamryn Peoples MD
--- NOTE | 2020-04-15 11:07 | Coding Query ---
CODING QUERY To promote full compliance with coding requirements relating to patient care, provider participation is requested in all cases of hospital account liaison uncertainty. Please assist us with the question(s) below: Please clarify the meaning of ROBERT found in communication report from 03/29/20. ROBERT is not a valid abbreviation. Thank you. ( ) Acute Kidney Injury ( ) Present on admission ( x) Not pressent on admission ( ) Acute Kidney Insufficiency ( ) Present on admission ( ) Not pressent on admission ( ) Other (Specify): Principal Diagnosis: "that condition established after study, to be chiefly responsible for occasioning the admission of the patient to the hospital for care." Co-Existing Principal Diagnosis: "when two or more diagnoses equally meet the criteria for principal diagnosis as determined by the circumstances of admission, diagnostic work up, and/or therapy provided, and the Alphabetic Index, Tabular List, or another coding guideline does not provide sequencing direction, any one of the diagnoses may be sequenced first." "When the physician has documented what appears to be a current diagnosis in the body of the record, but has not included the diagnosis in the final diagnostic statement, the physician should be asked whether the diagnosis should be added." (Source Coding [facility] 2 QTR90. p3-4) ANNY
--- NOTE | 2020-04-15 11:10 | Coding Query ---
PRESSURE ULCER DOCUMENTATION To promote full compliance with coding requirements relating to patient care, physician participation is requested in all cases of director internal communications uncertainty. Please assist us with the question(s) below: Please specify the known or suspected type by placing an "X" within the parenthesis (x). A pressure ulcer of the sacrum If possible, please check the box that provides the specific stage of the pressure ulcer ( ) Stage I ( x) Stage II ( ) Stage III ( ) Stage IV ( ) Unstageable ( ) Unable to determine Thank you Gladis MCCORMICK
== END 2020-04-02 18:15 | disposition home health service (06) | DRG 871 ==
LOC: ED 20:48 → 2W 03-27 02:12

== ENCOUNTER 2020-12-03 21:49 | Inpatient (IN) ==
[2020-12-03] MEDS ORDERED: SODIUM CHLORIDE 0.9% 1000ML 1,000 ML IV SCH (22:00)
--- NOTE | 2020-12-03 22:15 | Emergency Department Note ---
Impression & Plan Acute alteration in mental status, Pneumonia, Acute UTI (urinary tract infection) ED Provider Note Lysed weakness.NAME: ANTWAN GONSALES JR AGE: 60 SEX: M : 1960 ARRIVES VIA: Ambulance INFORMANT: Patient, ED PROVIDER(S): Jose Alfredo Wilson DO CHIEF COMPLAINT: Weakness HPI: The patient is a 60-year-old male who presented to the emergency department for an evaluation of generalized weakness. The patient describes an episode that occurred earlier today at around 4 PM. He states that ever since that time he has been very listless and feels very weak. The patient has had similar symptoms in the past. Usually these episodes do not last very long. He states he was recently started on Reglan as they are trying to decide if the patient has gastroparesis. The patient states that he called 911 because he was not feeling well. His family member presented to be with him and was questioning if the patient could have a cardiac issue. The patient himself denies having any chest pain. He denies having any difficulty breathing. He has had no fever. He denies having any extremity swelling. The patient does have a history of an incomplete cervical spine injury many years ago. He has an indwelling Martinez catheter. He also has an ostomy bag. He denies having any rectal bleeding. The patient's symptoms are only mildly improved at this time. ROS: See above HPI for pertinent positives & negatives. A total of 10 systems reviewed and were otherwise negative. PAST MEDICAL HISTORY: See Below PAST SURGICAL HISTORY: See Below FAMILY HISTORY: See Below SOCIAL HISTORY: See Below HOME MEDICATIONS: See Below ALLERGIES: See Below VITALS: See Below PHYSICAL EXAMINATION: GENERAL: The patient is awake and alert. He does not appear to be anxious or uncomfortable. EYES: The conjunctivae are clear. The pupils are constricted and reactive. EARS, NOSE, MOUTH AND THROAT: The nose is without any evidence of any deformity. NECK: The neck is nontender and supple. RESPIRATORY: Normal respiratory effort is noted there is no evidence of wheezing rhonchi or rales CARDIOVASCULAR: Regular rate and rhythm noted there no murmurs rubs or gallops normal S1 normal S2. GASTROINTESTINAL: The abdomen is mildly distended but soft. There is no specific tenderness guarding rigidity. MUSCULOSKELETAL/EXTREMITIES: There is no evidence of gross deformity full range of motion is noted in the hips and shoulders. SKIN: Skin is warm and dry. Pedal edema was noted bilaterally NEUROLOGIC: Patient is awake alert and oriented x3. Farm Planner strength is diminished but symmetric. MEDICAL DECISION MAKING: The patient is a 60-year-old male who presented to the emergency department for an evaluation of the patient did not have significant hypoxia. He was not septic appearing. The patient was awake and alert but appeared to be able to fall asleep rather quickly. This was a concern of a his significant other. EKG did not show any acute change from previous and cardiac biomarker was negative. I discussed the patient's laboratory and radiographic studies with the patient. Because of his symptoms I feel there could be an underlying infection and possibly pneumonia noted on chest x-ray. For this reason he was cultured and started on IV antibiotics. I [facility] the [facility] have agreed to evaluate the patient in the emergency department for further management and disposition. Triage Nursing notes reviewed. Prior medical records reviewed Vital Signs: reviewed and remarkable for no significant abnormalities Differential diagnosis: Infection, dehydration, metabolic abnormality, hypo/hyperglycemia, electrolyte disturbance, anemia, hypoxia, cardiac sources, intracerebral event, toxicologic, neurologic, as well as other pathologies. ER treatment provided: See below Diagnostics interpreted by me: ECG: EKG was obtained in the emergency department. My interpretation is normal sinus rhythm at 91 bpm. There was no PVCs noted. Right bundle branch block pattern was noted. This was compared to a tracing from April [id number]. No significant changes were noted. Cardiac Monitoring: An order was placed for continuous cardiac monitoring. The monitor shows a rate of 89 bpm with sinus rhythm. Laboratory studies: As stated above and show below. Imaging studies: See below Consultation(s): 0015: I discussed this case with Dr. Stewart who [facility]. Past Med/Surg History Medical History (Updated 12/04/20 @ 00:23 by Jose Alfredo Wilson DO) Asymptomatic bacteriuria Clostridium difficile infection (Unknown) CVA (cerebral vascular accident) DM type 2 (diabetes mellitus, type 2) Dyslipidemia Dysphagia Fever History of blood clots History of DVT (deep vein thrombosis) Hypertension Hypotension Ileus Kidney disease Leukocytosis Major depressive disorder, recurrent Obesity Occluded PICC line Positive urine culture Quadriplegia Seizure SIRS (systemic inflammatory response syndrome) Sleep apnea (Unknown) Syncope 57 year old with know quadriplegia and new onset syncope with change in position UTI (urinary tract infection) Surgical History Insertion of inferior vena caval filter (Unknown) Lithotripsy (Unknown) "laser lithotripsy left ureteral stone 03/17/11 " S/P knee surgery S/P tonsillectomy Suprapubic cystostomy (Unknown) Family History Mother No pertinent family history Social History Smoking Status: Never smoker Second Hand Exposure: No; Hx Alcohol Use: No Hx Substance Use: No Preferred Language: Tanzanian Communication Ability: Effective Visual Impairment: No Limitations Flexographic Press Operator Required: No Beliefs That Will Affect Care: None marital status: Current Living Situation: Spouse Feels Safe at Home: Yes Assistive Devices: Oxygen - at Night Allergies Allergies Allergy/AdvReac Type Severity Reaction Status Date / Time codeine Allergy Severe THROAT Verified 12/03/20 22:21 SWELLS latex Allergy Intermediate welts Verified 12/03/20 22:21 piperacillin Allergy Intermediate RASH Verified 12/03/20 22:21 Sulfa (Sulfonamide Allergy Intermediate HIVES Verified 12/03/20 22:21 Antibiotics) tazobactam Allergy Intermediate RASH Verified 12/03/20 22:21 aztreonam Allergy Unknown unknown Verified 12/03/20 22:21 lactose AdvReac Intermediate GI symptoms Verified 12/03/20 22:21 Home Meds Home Medications Medication Instructions Recorded Confirmed allopurinol 100 mg PO BID 05/07/18 12/03/20 ferrous gluconate 324 mg PO QAM 05/07/18 12/03/20 furosemide 40 mg PO BID 05/07/18 12/03/20 gabapentin 800 mg PO BID 05/07/18 12/03/20 magnesium oxide 400 mg PO BID 05/07/18 12/03/20 multivitamin 1 tab PO QAM 05/07/18 12/03/20 pantoprazole 40 mg PO QAM 05/07/18 12/03/20 ropinirole 1 mg PO QID 05/07/18 12/03/20 escitalopram oxalate 20 mg tablet 20 mg PO QAM tab 08/21/19 12/03/20 insulin human U-100 NPH-regulr See Rx Instructions .ROUTE .COMPLEX 08/21/19 12/03/20 70-30 mix 100 unit/mL subcutaneous susp warfarin 5 mg tablet See Rx Instructions .ROUTE 08/21/19 12/03/20 .COMPLEX tab atorvastatin 40 mg tablet 40 mg PO HS 08/24/19 12/03/20 blood sugar diagnostic #10 ea 08/24/19 07/05/20 baclofen 10 mg tablet See Rx Instructions .ROUTE .COMPLEX 09/22/19 12/03/20 Lactobacillus acidoph-L.bulgar 1 tab PO BID 03/01/20 12/03/20 [Floranex] cyclobenzaprine 15 mg PO HS 03/01/20 12/03/20 hyoscyamine sulfate 0.125 mg PO QPM 03/01/20 12/03/20 metformin [Glucophage] 1,000 mg PO BIDM 03/01/20 12/03/20 potassium chloride 10 meq PO BIDM 03/01/20 12/03/20 spironolactone [Aldactone] 25 mg PO QAM 03/01/20 12/03/20 tizanidine 4 mg PO BID 03/01/20 12/03/20 Medical Marijuana 6 drp PO TID 03/26/20 12/03/20 ascorbic acid (vitamin C) [Vitamin 250 mg PO TID 12/03/20 12/03/20 C] cefdinir 300 mg PO BID 12/03/20 12/03/20 coenzyme Q10 [CoQ-10] 100 mg PO BID 12/03/20 12/03/20 docusate sodium [Stool Softener] 100 mg PO BID 12/03/20 12/03/20 famotidine [Acid Wind Instrument Repairer 20 mg PO QAM 12/03/20 12/03/20 (famotidine)] metoclopramide HCl [Reglan] 10 mg PO AC 12/03/20 12/03/20 zinc sulfate 50 mg PO QDL 12/03/20 12/03/20 Previous Rx's Medication Instructions Recorded methenamine hippurate 1 g PO BID 30 Days #60 tab 04/02/20 Results & Data (ED) Vital Signs Vital Signs - 24 hr 12/03/20 22:07 12/03/20 22:14 Temperature 36.8 C Temperature Source Oral Pulse Rate 97 H Respiratory Rate 18 Respiratory Depth Normal Blood Pressure 131/89 Blood Pressure Mean 103 Blood Pressure Position Lying Pulse Oximetry 94 95 Oxygen Delivery Method Room Air Room Air Sepsis Recent Fever Within 48 Hours No Sepsis New/Unexplained Change in Mental Status No Sepsis Action Taken by Nursing No Action Required Home Medications Current Medication List: was personally reviewed by me Laboratory Data Attestation: I reviewed the patient's lab results. Result diagrams: 12/03/20 22:16 12/03/20 23:25 Lab Results 12/03/20 12/03/20 12/03/20 Range/Units 22:16 22:16 22:16 WBC 14.84 H (4.8-10.8) K/uL RBC 4.09 L (4.7-6.1) M/uL Hgb 11.6 L (14.0-18.0) g/dL Hct 36.2 L (42-52) % MCV 88.5 (80-100) fL MCH 28.4 (25-34) pg MCHC 32.0 (32-36) g/dL RDW Std Deviation 57.7 H (36.4-46.3) fL RDW Coeff of Yoseph 17.8 H (11.5-14.5) % Plt Count 319 (130-400) K/uL MPV 9.3 (7.4-10.4) fL Immature Gran % (Auto) 0.2 % Neut % (Auto) 75.7 % Lymph % (Auto) 16.4 % Warrick % (Auto) 4.2 % Eos % (Auto) 3.3 % Baso % (Auto) 0.2 % Neut # (Auto) 11.23 H (1.4-6.5) K/uL Lymph # (Auto) 2.43 (1.2-3.4) K/uL Warrick # (Auto) 0.63 H (0.11-0.59) K/uL Eos # (Auto) 0.49 (0-0.5) K/uL Baso # (Auto) 0.03 (0-0.2) K/uL Immature Gran # (Auto) 0.03 H (0.00-0.02) K/uL PT Cancelled INR Cancelled APTT Cancelled PTT Ratio Cancelled Sodium 136 (136-145) mmol/L Potassium (3.5-5.1) mmol/L Chloride 97 L (98-107) mmol/L Carbon Dioxide 35 H (21-32) mmol/L Anion Gap 4.0 (3-11) BUN 15 (7-18) mg/dl Creatinine 1.43 H (0.6-1.4) mg/dl Est Cr Clr Drug Dosing 83.0 ml/min Est GFR ( Amer) 60.8 Est GFR (Non-Af Amer) 52.5 BUN/Creatinine Ratio 10.4 (10-20) Glucose 149 H (70-99) mg/dl Calcium 9.4 (8.5-10.1) mg/dl Magnesium (1.8-2.4) mg/dl Total Bilirubin 0.4 (0.2-1) mg/dl AST (15-37) U/L ALT 22 (12-78) U/L Alkaline Phosphatase 71 (45-117) U/L Total Creatine Kinase (39-308) U/L Troponin I < 0.015 (0-0.045) ng/ml Total Protein 8.3 H (6.4-8.2) gm/dl Albumin 3.2 L (3.4-5.0) gm/dl Globulin 5.1 H (2.5-4.0) gm/dl Albumin/Globulin Ratio 0.6 L (0.9-2) TSH 4.270 (0.300-4.500) uIu/ml Urine Color Urine Appearance (Clear) Urine pH (4.5-7.5) Ur Specific [place] (1.000-1.030) Urine Protein (Negative) Urine Glucose (UA) (Negative) Urine Ketones (Negative) Urine Blood (Negative) Urine Nitrite (Negative) Urine Bilirubin (Negative) Urine Urobilinogen (Negative) Ur Leukocyte Esterase (Negative) Urine WBC (Auto) (0-5) /hpf Urine RBC (Auto) (0-4) /hpf U Hyaline Cast (Auto) (0-5) /lpf U Epithel Cells (Auto) (0-5) /lpf Urine Bacteria (Auto) (Negative) 12/03/20 12/03/20 12/03/20 Range/Units 22:48 23:25 23:25 WBC (4.8-10.8) K/uL RBC (4.7-6.1) M/uL Hgb (14.0-18.0) g/dL Hct (42-52) % MCV (80-100) fL MCH (25-34) pg MCHC (32-36) g/dL RDW Std Deviation (36.4-46.3) fL RDW Coeff of Yoseph (11.5-14.5) % Plt Count (130-400) K/uL MPV (7.4-10.4) fL Immature Gran % (Auto) % Neut % (Auto) % Lymph % (Auto) % Warrick % (Auto) % Eos % (Auto) % Baso % (Auto) % Neut # (Auto) (1.4-6.5) K/uL Lymph # (Auto) (1.2-3.4) K/uL Warrick # (Auto) (0.11-0.59) K/uL Eos # (Auto) (0-0.5) K/uL Baso # (Auto) (0-0.2) K/uL Immature Gran # (Auto) (0.00-0.02) K/uL PT 20.3 H INR 2.1 H APTT 41.9 H PTT Ratio 1.6 Sodium (136-145) mmol/L Potassium 3.7 (3.5-5.1) mmol/L Chloride (98-107) mmol/L Carbon Dioxide (21-32) mmol/L Anion Gap (3-11) BUN (7-18) mg/dl Creatinine (0.6-1.4) mg/dl Est Cr Clr Drug Dosing ml/min Est GFR ( Amer) Est GFR (Non-Af Amer) BUN/Creatinine Ratio (10-20) Glucose (70-99) mg/dl Calcium (8.5-10.1) mg/dl Magnesium (1.8-2.4) mg/dl Total Bilirubin (0.2-1) mg/dl AST (15-37) U/L ALT (12-78) U/L Alkaline Phosphatase (45-117) U/L Total Creatine Kinase (39-308) U/L Troponin I (0-0.045) ng/ml Total Protein (6.4-8.2) gm/dl Albumin (3.4-5.0) gm/dl Globulin (2.5-4.0) gm/dl Albumin/Globulin Ratio (0.9-2) TSH (0.300-4.500) uIu/ml Urine Color Yellow Urine Appearance Clear (Clear) Urine pH 5.5 (4.5-7.5) Ur Specific [place] 1.011 (1.000-1.030) Urine Protein Negative (Negative) Urine Glucose (UA) Negative (Negative) Urine Ketones Negative (Negative) Urine Blood 3+ H (Negative) Urine Nitrite Negative (Negative) Urine Bilirubin Negative (Negative) Urine Urobilinogen Negative (Negative) Ur Leukocyte Esterase 1+ H (Negative) Urine WBC (Auto) 10-30 H (0-5) /hpf Urine RBC (Auto) >30 H (0-4) /hpf U Hyaline Cast (Auto) 1-5 (0-5) /lpf U Epithel Cells (Auto) >30 H (0-5) /lpf Urine Bacteria (Auto) Negative (Negative) Administered Medications Discontinued Medications Sodium Chloride (Nss 1000ml) 1,000 mls @ 999 mls/hr IV .[id number] JO Stop: 12/03/20 23:00 Last Admin: 12/03/20 22:19 Dose: 999 mls/hr Documented by: [id number] Imaging Data Attestation: I personally reviewed and interpreted this imaging study as follows: My Impression: 1 view chest x-ray was obtained in the emergency department. My interpretation is cardiomegaly, there is no free air appreciated, poor penetration was noted but there is a possibility of a left-sided infiltrate. This was compared to a chest x-ray from March 262019. Radiologist's Impression: Patient: ANTWAN GONSALES JR (Male) : 58 Status: ER Date: 12/03/20 23:14 Room #: History: eval for weakness Slices: 130 Priors: Tech: Lauro Massey @ [phone] Exams: CT HEAD Contrast: Accession Numbers: [id number] Preliminary Findings Only See Final Report For Complete Findings CT HEAD: Comparison 03/27/2020. No intracranial hemorrhage, mass-effect, or edema. Likely chronic infarct within the paramedian left frontal lobe. Mild subcortical white matter changes likely representing chronic macrovascular ischemic changes. Radiologist: Mart Yu MD Study ready at 23:24 and initial results transmitted at 23:34 Discharge Plan Visit Data Chief Complaint: Lethargic Stated Complaint: slurred speech, new medication ED Provider: Jose Alfredo Wilson Discharge Problem: Acute alteration in mental status, Pneumonia, Acute UTI (urinary tract infection) Patient Disposition: Being Evaluated by Hospitalist Condition: Good Forms Stand Alone Forms: My [facility] [employer] Prescriptions Prescriptions: No Action warfarin 5 mg tablet See Rx Instructions .ROUTE .COMPLEX RF: 0 escitalopram oxalate 20 mg tablet 20 mg PO QAM RF: 0 Novolin 70/30 U-100 Insulin 100 unit/mL (70-30) suspension See Rx Instructions .ROUTE .COMPLEX RF: 0 atorvastatin 40 mg tablet 40 mg PO HS RF: 0 (DME) OneTouch Ultra Blue Test Strip strip See Rx Instructions .ROUTE .MEDSUPPLY Qty: 10 RF: 0 allopurinol 100 mg Tablet 100 mg PO BID RF: 0 ropinirole 1 mg Tablet 1 mg PO QID RF: 0 furosemide 40 mg Tablet 40 mg PO BID RF: 0 gabapentin 800 mg Tablet 800 mg PO BID RF: 0 ferrous gluconate 324 mg (38 mg iron) Tablet 324 mg PO QAM RF: 0 multivitamin Tablet 1 tab PO QAM RF: 0 pantoprazole 40 mg Tablet,Delayed Release (Dr/Ec) 40 mg PO QAM RF: 0 magnesium oxide 400 mg (241.3 mg magnesium) Tablet 400 mg PO BID RF: 0 baclofen 10 mg tablet See Rx Instructions .ROUTE .COMPLEX RF: 0 cyclobenzaprine 10 mg tablet 15 mg PO HS RF: 0 hyoscyamine sulfate 0.125 mg tablet 0.125 mg PO QPM RF: 0 tizanidine 4 mg tablet 4 mg PO BID RF: 0 potassium chloride 10 mEq tablet extended release 10 meq PO BIDM RF: 0 spironolactone [Aldactone] 25 mg tablet 25 mg PO QAM RF: 0 metformin [Glucophage] 1,000 mg tablet 1,000 mg PO BIDM RF: 0 Lactobacillus acidoph-L.bulgar [Floranex] 1 million cell tablet 1 tab PO BID RF: 0 Medical Marijuana 6 drp PO TID RF: 0 methenamine hippurate 1 gram Tablet 1 g PO BID 30 Days Qty: 60 RF: 2 famotidine [Acid Wind Instrument Repairer (famotidine)] 20 mg Tablet 20 mg PO QAM RF: 0 ascorbic acid (vitamin C) [Vitamin C] 500 mg Tablet 250 mg PO TID RF: 0 docusate sodium [Stool Softener] 100 mg Capsule 100 mg PO BID RF: 0 cefdinir 300 mg capsule 300 mg PO BID RF: 0 metoclopramide HCl [Reglan] 10 mg Tablet 10 mg PO AC RF: 0 coenzyme Q10 [CoQ-10] 100 mg Capsule 100 mg PO BID RF: 0 zinc sulfate 50 mg zinc (220 mg) Capsule 50 mg PO QDL RF: 0 Referrals Referrals: Wilder Stanford MD [Primary Care Provider] - Discharge Problem: Pneumonia Qualifiers: Pneumonia type: due to unspecified organism Laterality: left Lung location: un specified part of lung Qualified Code(s): J18.9 - Pneumonia, unspecified or ganism
[2020-12-03 22:29] LABS: Basophils # (auto) 0.03 K/uL (0-0.2); Basophils % (auto) 0.2 %; Eosinophils # (auto) 0.49 K/uL (0-0.5); Eosinophils % (auto) 3.3 %; Hematocrit (blood only) 36.2 % (42-52); Hemoglobin 11.6 g/dL (14.0-18.0); Immature Granulocytes # (auto) 0.03 K/uL (0.00-0.02); Immature Granulocytes % (auto) 0.2 %; Lymphocytes # (auto) 2.43 K/uL (1.2-3.4); Lymphocytes % (auto) 16.4 %; Mean Corpuscular Hemoglobin 28.4 pg (25-34); Mean Corpuscular Volume 88.5 fL (80-100); Mean Platelet Volume 9.3 fL (7.4-10.4); Monocytes # (auto) 0.63 K/uL (0.11-0.59); Monocytes % (auto) 4.2 %; Neutrophils # (auto) 11.23 K/uL (1.4-6.5); Neutrophils % (auto) 75.7 %; Platelet Count 319 K/uL (130-400); RDW Coefficient of Variation 17.8 % (11.5-14.5); RDW Standard Deviation 57.7 fL (36.4-46.3); Red Blood Count 4.09 M/uL (4.7-6.1); White Blood Count 14.84 K/uL (4.8-10.8)
[2020-12-03 22:54] LABS: Alanine Aminotransferase 22 U/L (12-78); Albumin Level 3.2 gm/dl (3.4-5.0); BUN Creatinine Ratio 10.4 (10-20); Blood Urea Nitrogen 15 mg/dl (7-18); Calcium 9.4 mg/dl (8.5-10.1); Carbon Dioxide 35 mmol/L (21-32); Chloride 97 mmol/L (98-107); Est GFR (African American) 60.8; Est GFR (Non-African American) 52.5; Glucose 149 mg/dl (70-99); Sodium 136 mmol/L (136-145)
[2020-12-03 23:05] LABS: Albumin Globulin Ratio 0.6 (0.9-2); Alkaline Phosphatase 71 U/L (45-117); Bilirubin,Total 0.4 mg/dl (0.2-1); Globulin 5.1 gm/dl (2.5-4.0); Total Protein 8.3 gm/dl (6.4-8.2); Troponin I < 0.015 ng/ml (0-0.045)
[2020-12-03 23:09] LABS: Appearance Urine Clear (Clear); Bacteria Urine Automated Negative (Negative); Bilirubin Urine Negative (Negative); Blood Urine 3+ (Negative); Color Urine Yellow; Epithelial Cell Urine Auto >30 /lpf (0-5); Glucose Urine UA Negative (Negative); Ketones Urine Negative (Negative); Leukocyte Esterase Urine 1+ (Negative); Nitrite Urine Negative (Negative); Protein Urine Negative (Negative); RBC Urine Automated >30 /hpf (0-4); Specific Gravity Urine 1.011 (1.000-1.030); Urobilinogen Urine Negative (Negative); pH Urine 5.5 (4.5-7.5)
[2020-12-04] MEDS ORDERED: cefTRIAXone SODIUM 1,000 MG/50 ML BAG IV STA
[2020-12-04 00:02] LABS: INR 2.1 (0.9-1.1); Partial Thromboplastin Ratio 1.6; Partial Thromboplastin Time 41.9 Seconds (21.0-31.0); Potassium 3.7 mmol/L (3.5-5.1); Prothrombin Time 20.3 Seconds (9.0-12.0)
[2020-12-04 00:42] LABS: Magnesium 2.1 mg/dl (1.8-2.4)
[2020-12-04 01:10] LABS: Influenza A virus by PCR Negative (Neg); Influenza B virus by PCR Negative (Neg); RSV by PCR Negative (Neg); SARS CoV2 RNA(COVID-19) InHosp NEGATIVE (Negative)
[2020-12-04] MEDS ORDERED: CEFEPIME 2,000 MG/20 ML VIAL IV STA (01:16)
--- NOTE | 2020-12-04 01:16 | History & Physical Report ---
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 Stop Reglan, add to ADR list CT abdomen pelvis RE abdominal bloating, increased reflux GI consult if CT abdomen pelvis unremarkable Monitor creatinine response to IVF, hold home diuretic, spironolactone for now until creatinine back to baseline Basal insulin, ISS BG goal [id number] DVT prophylaxis. Coumadin INR goal between 2 and 3 Full code Patient's requesting updates providers. Ms. Rody Rodriguez, contact #[phone]. Attempted to call patient on the phone but line unattended.. Will request AM provider to contact patient's in the morning. Text document was generated using Worklight voice recognition software. It may contain grammatical or spelling errors. Kindly contact undersigned for clarification of any documentation item in question. History of Present Illness Primary Care Provider: Wilder Stanford MD History obtained from patient and records. Patient is a reliable historian. 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 dif Last confinement March 2020 for infected sacral wound. The last month, patient having increased problems with reflux when he wakes up in the morning. Some days, patient with odynophagia symptoms and stomach feels full and bloated. Patient seen at PCPs office 2 weeks ago. Reglan started for possible gastroparesis. Outpatient GI consult contemplated next month. Patient had first dose of Reglan yesterday and noted to be very fatigued, drowsy and with slurred speech. Patient denies chest pain, S OB, cough, abdominal pain, dysuria/diarrhea symptoms. Patient received ceftriaxone in the ER for possible UTI. Patient feels much better is more awake. MEDICAL HISTORY: As above. NM gastric emptying study 04/25/2019 was normal. SURGICAL HISTORY: Kidney stone procedures, suprapubic catheter placement, neck surgery, IVC filter placement, ostomy//bowel surgery FAMILY HISTORY: DM, prostate cancer PERSONAL SOCIAL HISTORY: Nonsmoker. No chronic intake of alcoholic beverages. On disability. Allergies Allergy/AdvReac Type Severity Reaction Status Date / Time codeine Allergy Severe THROAT Verified 12/03/20 22:21 SWELLS latex Allergy Intermediate welts Verified 12/03/20 22:21 piperacillin Allergy Intermediate RASH Verified 12/03/20 22:21 Sulfa (Sulfonamide Allergy Intermediate HIVES Verified 12/03/20 22:21 Antibiotics) tazobactam Allergy Intermediate RASH Verified 12/03/20 22:21 aztreonam Allergy Unknown unknown Verified 12/03/20 22:21 lactose AdvReac Intermediate GI symptoms Verified 12/03/20 22:21 metoclopramide [From Reglan] AdvReac Mild lethargy Verified 12/04/20 02:58 Home Medications Medication Instructions Recorded Confirmed Type allopurinol 100 mg PO BID 05/07/18 12/03/20 History ferrous gluconate 324 mg PO QAM 05/07/18 12/03/20 History furosemide 40 mg PO BID 05/07/18 12/03/20 History gabapentin 800 mg PO BID 05/07/18 12/03/20 History magnesium oxide 400 mg PO BID 05/07/18 12/03/20 History multivitamin 1 tab PO QAM 05/07/18 12/03/20 History pantoprazole 40 mg PO QAM 05/07/18 12/03/20 History ropinirole 1 mg PO QID 05/07/18 12/03/20 History escitalopram oxalate 20 mg tablet 20 mg PO QAM tab 08/21/19 12/03/20 History insulin human U-100 NPH-regulr See Rx Instructions .ROUTE .COMPLEX 08/21/19 12/03/20 History 70-30 mix 100 unit/mL subcutaneous susp warfarin 5 mg tablet See Rx Instructions .ROUTE 08/21/19 12/03/20 History .COMPLEX tab atorvastatin 40 mg tablet 40 mg PO HS 08/24/19 12/03/20 History blood sugar diagnostic #10 ea 08/24/19 07/05/20 History baclofen 10 mg tablet See Rx Instructions .ROUTE .COMPLEX 09/22/19 12/03/20 History Lactobacillus acidoph-L.bulgar 1 tab PO BID 03/01/20 12/03/20 History [Floranex] cyclobenzaprine 15 mg PO HS 03/01/20 12/03/20 History hyoscyamine sulfate 0.125 mg PO QPM 03/01/20 12/03/20 History metformin [Glucophage] 1,000 mg PO BIDM 03/01/20 12/03/20 History potassium chloride 10 meq PO BIDM 03/01/20 12/03/20 History spironolactone [Aldactone] 25 mg PO QAM 03/01/20 12/03/20 History tizanidine 4 mg PO BID 03/01/20 12/03/20 History Medical Marijuana 6 drp PO TID 03/26/20 12/03/20 History methenamine hippurate 1 g PO BID 30 Days #60 tab 04/02/20 12/03/20 Rx ascorbic acid (vitamin C) [Vitamin 250 mg PO TID 12/03/20 12/03/20 History C] cefdinir 300 mg PO BID 12/03/20 12/03/20 History coenzyme Q10 [CoQ-10] 100 mg PO BID 12/03/20 12/03/20 History docusate sodium [Stool Softener] 100 mg PO BID 12/03/20 12/03/20 History famotidine [Acid Diaphragm Builder 20 mg PO QAM 12/03/20 12/03/20 History (famotidine)] metoclopramide HCl [Reglan] 10 mg PO AC 12/03/20 12/03/20 History zinc sulfate 50 mg PO QDL 12/03/20 12/03/20 History Past Med/Surg History Medical History (Updated 12/04/20 @ 05:55 by Marlon Brandt MD) Asymptomatic bacteriuria Clostridium difficile infection (Unknown) CVA (cerebral vascular accident) DM type 2 (diabetes mellitus, type 2) Dyslipidemia Dysphagia Fever History of blood clots History of DVT (deep vein thrombosis) Hypertension Hypotension Ileus Kidney disease Leukocytosis Major depressive disorder, recurrent Obesity Occluded PICC line Positive urine culture Quadriplegia Seizure SIRS (systemic inflammatory response syndrome) Sleep apnea (Unknown) Syncope 57 year old with know quadriplegia and new onset syncope with change in position UTI (urinary tract infection) Surgical History Insertion of inferior vena caval filter (Unknown) Lithotripsy (Unknown) "laser lithotripsy left ureteral stone 03/17/11 " S/P knee surgery S/P tonsillectomy Suprapubic cystostomy (Unknown) Family History Mother No pertinent family history Social History Smoking Status: Never smoker Second Hand Exposure: No; Hx Alcohol Use: No Hx Substance Use: No Preferred Language: Bulgarian Communication Ability: Effective Visual Impairment: No Limitations Flap Maker Required: No Beliefs That Will Affect Care: None marital status: Current Living Situation: Spouse Other Information That Helps Us Care for You: No Feels Safe at Home: Yes Assistive Devices: Oxygen - at Night Review of Systems Review of Systems: As per HPI, all 10 systems reviewed, all other ROS negative Physical Exam Physical Exam: GENERAL: Comfortable, pleasant, morbidly obese, no respiratory distress SKIN: Pallor, warm HEENT: Pale palpebral conjunctivae, no ptosis, dry buccal mucosa NECK : Supple, short neck, no tenderness CHEST : Decreased breath sounds, no tenderness HEART : Tachycardic, no obvious murmurs ABDOMEN: distention, nontender Decubitus wound not examined EXTREMITIES : Minimal LE swelling, no LE tenderness, no other conspicuous deformities noted NEUROLOGIC : Coherent, no facial asymmetry, quadriplegia Results & Data Results & Data ([facility]) Vital Signs (Past 12 Hours) Vital Signs Temp Pulse Pulse Resp BP BP Pulse Ox 12/04/20 00:00 101 H 16 131/88 99 12/03/20 22:14 95 12/03/20 22:07 36.8 C 97 H 18 131/89 94 Laboratory Results Laboratory Results WBC 14.84 K/uL (4.8-10.8) H 12/03/20 22:16 RBC 4.09 M/uL (4.7-6.1) L 12/03/20 22:16 Hgb 11.6 g/dL (14.0-18.0) L 12/03/20 22:16 Hct 36.2 % (42-52) L 12/03/20 22:16 MCV 88.5 fL (80-100) 12/03/20 22:16 MCH 28.4 pg (25-34) 12/03/20 22:16 MCHC 32.0 g/dL (32-36) 12/03/20 22:16 RDW Std Deviation 57.7 fL (36.4-46.3) H 12/03/20 22:16 RDW Coeff of Yoseph 17.8 % (11.5-14.5) H 12/03/20 22:16 Plt Count 319 K/uL (130-400) 12/03/20 22:16 MPV 9.3 fL (7.4-10.4) 12/03/20 22:16 Immature Gran % (Auto) 0.2 % 12/03/20 22:16 Neut % (Auto) 75.7 % 12/03/20 22:16 Lymph % (Auto) 16.4 % 12/03/20 22:16 [place] % (Auto) 4.2 % 12/03/20 22:16 Eos % (Auto) 3.3 % 12/03/20 22:16 Baso % (Auto) 0.2 % 12/03/20 22:16 Neut # (Auto) 11.23 K/uL (1.4-6.5) H 12/03/20 22:16 Lymph # (Auto) 2.43 K/uL (1.2-3.4) 12/03/20 22:16 [place]att # (Auto) 0.63 K/uL (0.11-0.59) H 12/03/20 22:16 Eos # (Auto) 0.49 K/uL (0-0.5) 12/03/20 22:16 Baso # (Auto) 0.03 K/uL (0-0.2) 12/03/20 22:16 Immature Gran # (Auto) 0.03 K/uL (0.00-0.02) H 12/03/20 22:16 PT 20.3 Seconds (9.0-12.0) H 12/03/20 23:25 INR 2.1 (0.9-1.1) H 12/03/20 23:25 APTT 41.9 Seconds (21.0-31.0) H 12/03/20 23:25 PTT Ratio 1.6 12/03/20 23:25 Sodium 136 mmol/L (136-145) 12/03/20 22:16 Potassium 3.7 mmol/L (3.5-5.1) 12/03/20 23:25 Chloride 97 mmol/L (98-107) L 12/03/20 22:16 Carbon Dioxide 35 mmol/L (21-32) H 12/03/20 22:16 Anion Gap 4.0 (3-11) 12/03/20 22:16 BUN 15 mg/dl (7-18) 12/03/20 22:16 Creatinine 1.43 mg/dl (0.6-1.4) H 12/03/20 22:16 Est Cr Clr Drug Dosing 83.0 ml/min 12/03/20 22:16 Est GFR ( Amer) 60.8 12/03/20 22:16 Est GFR (Non-Af Amer) 52.5 12/03/20 22:16 BUN/Creatinine Ratio 10.4 (10-20) 12/03/20 22:16 Glucose 149 mg/dl (70-99) H 12/03/20 22:16 Calcium 9.4 mg/dl (8.5-10.1) 12/03/20 22:16 Magnesium 2.1 mg/dl (1.8-2.4) 12/03/20 23:25 Total Bilirubin 0.4 mg/dl (0.2-1) 12/03/20 22:16 AST 14 U/L (15-37) L 12/03/20 23:25 ALT 22 U/L (12-78) 12/03/20 22:16 Alkaline Phosphatase 71 U/L (45-117) 12/03/20 22:16 Total Creatine Kinase U/L (39-308) 12/03/20 22:16 Troponin I < 0.015 ng/ml (0-0.045) 12/03/20 22:16 Total Protein 8.3 gm/dl (6.4-8.2) H 12/03/20 22:16 Albumin 3.2 gm/dl (3.4-5.0) L 12/03/20 22:16 Globulin 5.1 gm/dl (2.5-4.0) H 12/03/20 22:16 Albumin/Globulin Ratio 0.6 (0.9-2) L 12/03/20 22:16 TSH 4.270 uIu/ml (0.300-4.500) 12/03/20 22:16 Urine Color Yellow 12/03/20 22:48 Urine Appearance Clear (Clear) 12/03/20 22:48 Urine pH 5.5 (4.5-7.5) 12/03/20 22:48 Ur Specific [place] 1.011 (1.000-1.030) 12/03/20 22:48 Urine Protein Negative (Negative) 12/03/20 22:48 Urine Glucose (UA) Negative (Negative) 12/03/20 22:48 Urine Ketones Negative (Negative) 12/03/20 22:48 Urine Blood 3+ (Negative) H 12/03/20 22:48 Urine Nitrite Negative (Negative) 12/03/20 22:48 Urine Bilirubin Negative (Negative) 12/03/20 22:48 Urine Urobilinogen Negative (Negative) 12/03/20 22:48 Ur Leukocyte Esterase 1+ (Negative) H 12/03/20 22:48 Urine WBC (Auto) 10-30 /hpf (0-5) H 12/03/20 22:48 Urine RBC (Auto) >30 /hpf (0-4) H 12/03/20 22:48 U Hyaline Cast (Auto) 1-5 /lpf (0-5) 12/03/20 22:48 U Epithel Cells (Auto) >30 /lpf (0-5) H 12/03/20 22:48 Urine Bacteria (Auto) Negative (Negative) 12/03/20 22:48 COVID-19 Eval Order CovFluRsv at [facility] 12/04/20 00:25 SARS-CoV-2 (PCR) NEGATIVE (Negative) 12/04/20 00:25 Influenza Type A (PCR) Negative (Neg) 12/04/20 00:25 Influenza Type B (PCR) Negative (Neg) 12/04/20 00:25 RSV (RT-PCR) Negative (Neg) 12/04/20 00:[address] head initial read: No intracranial hemorrhage, mass-effect or edema. Chronic infarct paramedian left frontal lobe. Microvascular ischemic changes. Chest x-ray as per my interpretation cardiomegaly EKG as per my interpretation : Rate 90, NSR, normal axis, RBBB, T wave abnormalities inferior leads
[2020-12-04] MEDS ORDERED: DAPTOmycin 650 MG in SYRINGE 0 ML IV STA (01:22)
[2020-12-04] MEDS ORDERED: CARBOHYDRATES FOR HYPOGLYCEMIA PO PRN (04:02)
[2020-12-04] MEDS ORDERED: GLUCAGON FOR INJ 1 MG VIAL SQ PRN (04:02)
[2020-12-04] MEDS ORDERED: traMADol HCL 50 MG TABLET PO PRN (04:02)
[2020-12-04] MEDS ORDERED: DEXTROSE 50% 50 ML SYRINGE IV PRN (04:02)
[2020-12-04] MEDS ORDERED: ACETAMINOPHEN 325 MG TAB PO PRN (04:02)
[2020-12-04] MEDS ORDERED: GLUCOSE 40% GEL 15 GM TUBE PO PRN (04:02)
[2020-12-04] MEDS ORDERED: GLUCOSE 10 TABS/TUBE PO PRN (04:02)
[2020-12-04] MEDS ORDERED: PROMETHAZINE HCL 12.5 MG in SODIUM CHLORIDE 0.9% 50 ML IV PRN (04:02)
[2020-12-04] MEDS: ALBUMIN 25% 12.5 GM/50 ML VIAL IV SCH ×2 (04:35→05:29)
[2020-12-04] MEDS: INSULIN ASPART 100 UNITS/ML 3 ML PEN SC SCH ×5 (04:36→21:34)
[2020-12-04] MEDS: BACLOFEN 10 MG TAB PO SCH ×3 (05:37→23:45)
[2020-12-04] MEDS: allopurinoL 100 MG TAB PO SCH ×2 (05:37→17:46)
[2020-12-04 06:50] LABS: Basophils # (auto) 0.03 K/uL (0-0.2); Basophils % (auto) 0.2 %; Eosinophils # (auto) 0.44 K/uL (0-0.5); Eosinophils % (auto) 2.9 %; Hematocrit (blood only) 35.4 % (42-52); Immature Granulocytes # (auto) 0.04 K/uL (0.00-0.02); Immature Granulocytes % (auto) 0.3 %; Lymphocytes # (auto) 2.37 K/uL (1.2-3.4); Lymphocytes % (auto) 15.4 %; Mean Corpuscular Hemoglobin 27.8 pg (25-34); Mean Corpuscular Hgb Conc 31.1 g/dL (32-36); Mean Corpuscular Volume 89.4 fL (80-100); Mean Platelet Volume 9.2 fL (7.4-10.4); Monocytes % (auto) 4.6 %; Neutrophils % (auto) 76.6 %; Platelet Count 277 K/uL (130-400); RDW Coefficient of Variation 17.8 % (11.5-14.5); Red Blood Count 3.96 M/uL (4.7-6.1); White Blood Count 15.38 K/uL (4.8-10.8)
[2020-12-04 06:56] LABS: Estimated Average Glucose 157 mg/dl; Hemoglobin A1C 7.1 % (4.5-5.6)
[2020-12-04 07:04] LABS: INR 2.2 (0.9-1.1); Prothrombin Time 21.4 Seconds (9.0-12.0)
--- NOTE | 2020-12-04 07:09 | CT Scan Report ---
CT SCAN OF THE BRAIN WITHOUT IV CONTRAST CLINICAL HISTORY: Generalized weakness. COMPARISON STUDY: CT of the brain dated 03/27/2020. TECHNIQUE: Unenhanced axial CT scan of the brain is performed from the vertex to the skull base. A d ose lowering technique was utilized adhering to the principles of ALARA. CT DOSE: 2096.54 mGy.cm FINDINGS: Brain parenchyma: There is mild microangiopathic change. A small focus of left frontal encephalomalac ia is unchanged from previous. There is no hemorrhage, mass effect, or evidence of acute territorial ischemia by CT criteria. Bowser-white matter differentiation is preserved. No extra-axial fluid collect ion is seen. The patient was scanned twice due to motion artifact. Ventricles, sulci, cisterns: Normal in configuration. Intracranial vasculature: There is atherosclerotic calcification of the cavernous carotid arteries. Calvarium: Unremarkable. Sinuses and mastoids: The visualized paranasal sinuses are clear. The mastoid air cells are well pneu matized. Orbits: The bony orbits are grossly intact. There are bilateral ocular lens implants. IMPRESSION: There is no hemorrhage, mass effect, or evidence of acute territorial ischemia by CT fadia chang. ACT 112: Negative or not required by law. Electronically signed by: José Wise M.D. 12/04/2020 7:07 AM
--- NOTE | 2020-12-04 07:11 | XRay Report ---
XR chest 1V portable CLINICAL HISTORY: weakness COMPARISON STUDY: Chest radiograph March 26, 2020. FINDINGS: Postoperative findings within the posterior inferior left chest wall are again noted. Multi ple wires are disrupted. This is unchanged. Cardiomegaly is unchanged. Mediastinal widening is unchan ged. There is no pneumothorax or pleural effusion. There is no consolidation or evidence for pulmonar y edema. IMPRESSION: No acute cardiopulmonary findings. No change in appearance of the chest. ACT 112: Negative or not required by law. Electronically signed by: Sami Jacobson M.D. 12/04/2020 7:10 AM
[2020-12-04 07:18] LABS: BUN Creatinine Ratio 12.2 (10-20); Calcium 8.6 mg/dl (8.5-10.1); Creatinine Clr Calc Pharmacy 96.3 ml/min; Est GFR (African American) 70.9; Est GFR (Non-African American) 61.2; Potassium 3.9 mmol/L (3.5-5.1)
[2020-12-04] MEDS: ESCITALOPRAM OXALATE 20 MG TAB PO SCH (07:57)
[2020-12-04] MEDS: FAMOTIDINE 20 MG TAB PO SCH (07:57)
[2020-12-04] MEDS: FERROUS GLUCONATE 324 MG TAB PO SCH (07:57)
[2020-12-04] MEDS: PANTOprazole 40 MG TAB PO SCH (07:57)
[2020-12-04] MEDS: INSULIN GLARGINE SOLOSTAR 100 UNITS/ML 3 ML PEN SC SCH ×2 (07:57→21:34)
[2020-12-04] MEDS: SPIRONOLACTONE 25 MG TAB PO SCH (07:57)
[2020-12-04] MEDS: MULTIVITAMIN TAB PO SCH (07:57)
[2020-12-04] MEDS: METOCLOPRAMIDE HCL 10 MG TABLET PO SCH ×4 (07:58→16:55)
[2020-12-04] MEDS ORDERED: allopurinoL 100 MG TAB PO SCH (09:00)
[2020-12-04] MEDS ORDERED: DOCUSATE SODIUM 100 MG CAP PO SCH (09:00)
[2020-12-04] MEDS: DOCUSATE SODIUM 100 MG CAP PO SCH ×2 (11:25→23:44)
[2020-12-04] MEDS: ADVANCED PROBIOTIC 1250 MG CAPSULE PO SCH ×2 (11:25→23:44)
--- NOTE | 2020-12-04 14:05 | Hospitalist Progress Note ---
Date of Service December 04, 2020 Assessment & Plan (1) Encephalopathy: Transient encephalopathy Multifactorial : Complicated UTI, hx neurogenic bladder with suprapubic catheter, chronic methenamine suppression Rx, possible sepsis Recent Reglan Rx for possible gastroparesis contributory given potential interaction with patient's multiple neuropsychotropic/antispasmodic agents Stop Reglan, add to ADR list Resolved after initial ER intervention Has been on intravenous daptomycin, Cefepime complicated UTI Urine and blood cultures pending Has been feeling much better without any symptoms Denies any more confusion as of this morning Partial quadriplegia secondary to traumatic cervical spinal cord injury, No acute symptoms Hypertension, BP on the lower side Blood pressure is running high as of today We will continue current medications ARF secondary dehydration Received intravenous fluid and creatinine normalized DM2--insulin-requiring, well-controlled as of recent hemoglobin A1c of 7 last August 2020 Basal insulin, ISS BG goal [id number] History of DVT on anticoagulation, INR therapeutic Chronic anemia, hemoglobin at baseline DVT prophylaxis. Coumadin INR goal between 2 and 3 Full code Patient's requesting updates providers. Ms. Rody Rodriguez, contact #[phone]. Admission and Anticipated Discharge Date Admission Date: December 04, 2020 Subjective 12/04/2020 The patient was seen and examined in medical telemetry unit He denies any symptoms as of today Denies any pain, nausea and or vomiting, shortness of breath or palpitation No fever and no chills Review of Systems Review of Systems: All systems reviewed and are unremarkable except as noted below Physical Exam Physical Exam: Lying in bed comfortably Constitutional: well developed, well nourished and + morbidly obese; not ill appearing Eyes: PERRL, conjunctivae normal, anicteric sclerae ENMT: external ear and nose normal, oropharynx normal Neck: trachea midline, no thyromegaly Respiratory: no respiratory distress Auscultation: lungs clear to auscultation bilaterally Cardiovascular: Rate/Rhythm: regular rate and regular rhythm Heart Sounds: no murmur Extremities: + edema (Trace to 1+ edema bilaterally) Gastrointestinal (Abdomen): Inspection/Auscultation: + abdomen distended; + abnormal bowel sounds Percussion/Palpation: abdomen soft; abdomen nontender Ostomy site is intact Musculoskeletal: No acute arthritis Neurologic: Alert, awake and oriented x3. Psychiatric: A+Ox3, euthymic affect Lymphatic: no cervical or axillary lymphadenopathy Results & Data Results & Data ([facility]) Vital Signs (Past 12 Hours) Vital Signs Temp Pulse Pulse Resp BP Pulse Ox 12/04/20 11:40 37.4 C 106 H 20 173/77 H 92 12/04/20 07:39 37.5 C 100 H 20 118/63 98 12/04/20 03:00 37.2 C 102 H 22 104/66 93 12/04/20 02:30 112 H Laboratory Results Short CBC 12/03/20 12/04/20 Range/Units 22:16 06:23 WBC 14.84 H 15.38 H (4.8-10.8) K/uL Hgb 11.6 L 11.0 L (14.0-18.0) g/dL Hct 36.2 L 35.4 L (42-52) % Plt Count 319 277 (130-400) K/uL BMP 12/03/20 12/03/20 12/04/20 22:16 23:25 06:23 Sodium 136 138 Potassium 3.7 3.9 Chloride 97 L 100 Carbon Dioxide 35 H 36 H BUN 15 15 Creatinine 1.43 H 1.26 Glucose 149 H 104 H Calcium 9.4 8.6 Cardiac Enzymes 12/03/20 12/03/20 Range/Units 22:16 23:25 Total Creatine Kinase 96 (39-308) U/L Troponin I < 0.015 (0-0.045) ng/ml Liver Function 12/03/20 12/03/20 Range/Units 22:16 23:25 Total Bilirubin 0.4 (0.2-1) mg/dl AST 14 L (15-37) U/L ALT 22 (12-78) U/L Alkaline Phosphatase 71 (45-117) U/L Albumin 3.2 L (3.4-5.0) gm/dl Urine 12/03/20 Range/Units 22:48 Urine Color Yellow Urine Appearance Clear (Clear) Urine pH 5.5 (4.5-7.5) Ur Specific [place] 1.011 (1.000-1.030) Urine Protein Negative (Negative) Urine Glucose (UA) Negative (Negative) Medications Administered Current Inpatient Medications Acetaminophen (Acetaminophen 325 Mg Tab) 650 mg PO Q4H PRN PRN Reason: Pain or Fever Stop: 01/03/21 04:01 Allopurinol (Allopurinol 100 Mg Tab) 100 mg PO BID@0600,1800 [facility] Stop: 01/03/21 05:59 Last Admin: 12/04/20 05:37 Dose: 100 mg Documented by: Baclofen (Baclofen 10 Mg Tab) 5 mg PO BID@0600,1200 [facility] Stop: 01/03/21 05:59 Last Admin: 12/04/20 11:25 Dose: 5 mg Documented by: Baclofen (Baclofen 10 Mg Tab) 10 mg PO DAILY@0000 [facility] Stop: 01/04/21 00:00 Dextrose (Dextrose 50% 50 Ml Syringe) 25 - 50 ml IV UD PRN; Protocol PRN Reason: Hypoglycemia Protocol Stop: 01/03/21 04:01 Docusate Sodium (Docusate Sodium 100 Mg Cap) 100 mg PO BID@0000,1200 [facility] Stop: 01/03/21 11:59 Last Admin: 12/04/20 11:25 Dose: 100 mg Documented by: Escitalopram Oxalate (Escitalopram Oxalate 20 Mg Tab) [facility] Stop: 01/03/21 08:59 Last Admin: 12/04/20 07:57 Dose: 20 mg Documented by: Famotidine (Famotidine 20 Mg Tab) 20 mg PO QAM [facility] Stop: 01/03/21 08:59 Last Admin: 12/04/20 07:57 Dose: 20 mg Documented by: Ferrous Gluconate (Ferrous Gluconate 324 Mg Tab) 324 mg PO QAM [facility] Stop: 01/03/21 08:59 Last Admin: 12/04/20 07:57 Dose: 324 mg Documented by: Glucagon (Glucagon For Inj 1 Mg Vial) 1 mg SQ UD PRN; Protocol PRN Reason: Hypoglycemia Protocol Stop: 01/03/21 04:01 Glucose (Glucose 10 Tabs/Tube) 4 - 8 tabs PO UD PRN; Protocol PRN Reason: Hypoglycemia Protocol Stop: 01/03/21 04:01 Glucose (Glucose 40% Gel 15 Gm Tube) 15 - 30 gm PO UD PRN; Protocol PRN Reason: Hypoglycemia Protocol Stop: 01/03/21 04:01 Daptomycin 650 mg/ Syringe 13 mls @ 6.5 mls/min IV Q24H JO; Protocol Stop: 12/13/20 02:01 Promethazine HCl 12.5 mg/ (Sodium Chloride) 50.5 mls @ 202 mls/hr IV Q6H PRN PRN Reason: Nausea And Vomiting Stop: 01/03/21 04:01 Insulin Aspart (Insulin Aspart 100 Units/Ml 3 Ml Pen) 0 units SC ACHS [facility] Stop: 01/03/21 04:01 Last Admin: 12/04/20 12:48 Dose: 2 units Documented by: Insulin Glargine (Insulin Glargine Solostar 100 Units/Ml 3 Ml Pen) 5 units SC BID [facility] Stop: 01/03/21 08:59 Last Admin: 12/04/20 07:57 Dose: 5 units Documented by: Lactobacillus Acidoph/Casei/Rhamnos (Advanced Probiotic 1250 Mg Capsule) 2 cap PO BID@0000,1200 [facility] Stop: 01/03/21 11:59 Last Admin: 12/04/20 11:25 Dose: 2 cap Documented by: Metoclopramide HCl (Metoclopramide Hcl 10 Mg Tablet) 10 mg PO AC [facility] Stop: 01/03/21 07:29 Last Admin: 12/04/20 11:25 Dose: Not Given Documented by: Miscellaneous (Carbohydrates For Hypoglycemia ) 15 - 30 gm PO UD PRN PRN Reason: Hypoglycemia Protocol Stop: 01/03/21 04:01 Multivitamins (Multivitamin Tab) 1 tab PO [facility] Stop: 01/03/21 08:59 Last Admin: 12/04/20 07:57 Dose: 1 tab Documented by: Pantoprazole Sodium (Pantoprazole 40 Mg Tab) 40 mg PO QAM [facility] Stop: 01/03/21 08:59 Last Admin: 12/04/20 07:57 Dose: 40 mg Documented by: Spironolactone (Spironolactone 25 Mg Tab) 25 mg PO QAM [facility] Stop: 01/03/21 08:59 Last Admin: 12/04/20 07:57 Dose: 25 mg Documented by: Tramadol HCl (Tramadol Hcl 50 Mg Tablet) 25 - 50 mg PO Q4H PRN PRN Reason: Pain Stop: 01/03/21 04:01
--- NOTE | 2020-12-04 14:37 | Electrocardiogram Report ---
Test Reason : Blood Pressure : / mmHG Vent. Rate : 091 BPM Atrial Rate : 091 BPM P-R Int : 176 ms QRS Dur : 136 ms QT Int : 416 ms P-R-T Axes : 047 006 -18 degrees QTc Int : 511 ms Normal sinus rhythm Right bundle branch block Abnormal ECG When compared with ECG of 01-APR-2020 06:30, No significant change was found Confirmed by Jose Alfredo Courtney ([id number]) on 12/04/2020 2:36:52 PM Referred By: REFERRED SELF Confirmed By:Jose Alfredo Courtney
[2020-12-04] MEDS ORDERED: WARFARIN SOD 5 MG TAB PO ONE (18:21)
[2020-12-04] MEDS ORDERED: WARFARIN SOD 5 MG TAB PO SCH (18:30)
[2020-12-05] MEDS: DAPTOmycin 650 MG in SYRINGE 0 ML IV SCH (01:55)
[2020-12-05] MEDS: allopurinoL 100 MG TAB PO SCH ×2 (05:54→17:57)
[2020-12-05] MEDS: BACLOFEN 10 MG TAB PO SCH ×2 (05:54→12:21)
[2020-12-05 07:35] LABS: Basophils # (auto) 0.04 K/uL (0-0.2); Basophils % (auto) 0.3 %; Eosinophils % (auto) 2.5 %; Hematocrit (blood only) 35.8 % (42-52); Hemoglobin 11.5 g/dL (14.0-18.0); Immature Granulocytes # (auto) 0.04 K/uL (0.00-0.02); Immature Granulocytes % (auto) 0.3 %; Lymphocytes # (auto) 2.43 K/uL (1.2-3.4); Lymphocytes % (auto) 15.4 %; Mean Corpuscular Hemoglobin 28.4 pg (25-34); Mean Corpuscular Hgb Conc 32.1 g/dL (32-36); Mean Corpuscular Volume 88.4 fL (80-100); Mean Platelet Volume 9.3 fL (7.4-10.4); Monocytes # (auto) 0.93 K/uL (0.11-0.59); Monocytes % (auto) 5.9 %; Neutrophils # (auto) 11.96 K/uL (1.4-6.5); Neutrophils % (auto) 75.6 %; Platelet Count 343 K/uL (130-400); RDW Standard Deviation 58.5 fL (36.4-46.3); Red Blood Count 4.05 M/uL (4.7-6.1)
[2020-12-05 07:41] LABS: INR 1.8 (0.9-1.1); Prothrombin Time 17.5 Seconds (9.0-12.0)
[2020-12-05 08:03] LABS: BUN Creatinine Ratio 9.5 (10-20); Calcium 9.3 mg/dl (8.5-10.1); Creatinine Clr Calc Pharmacy 104.6 ml/min; Est GFR (African American) 78.3; Est GFR (Non-African American) 67.6; Potassium 3.9 mmol/L (3.5-5.1)
[2020-12-05] MEDS: ESCITALOPRAM OXALATE 20 MG TAB PO SCH (08:48)
[2020-12-05] MEDS: FAMOTIDINE 20 MG TAB PO SCH (08:48)
[2020-12-05] MEDS: MULTIVITAMIN TAB PO SCH (08:48)
[2020-12-05] MEDS: SPIRONOLACTONE 25 MG TAB PO SCH (08:48)
[2020-12-05] MEDS: PANTOprazole 40 MG TAB PO SCH (08:48)
[2020-12-05] MEDS: FERROUS GLUCONATE 324 MG TAB PO SCH (08:49)
[2020-12-05] MEDS: INSULIN ASPART 100 UNITS/ML 3 ML PEN SC SCH ×4 (08:52→21:44)
[2020-12-05] MEDS: INSULIN GLARGINE SOLOSTAR 100 UNITS/ML 3 ML PEN SC SCH ×2 (08:52→21:43)
[2020-12-05] MEDS ORDERED: CEFEPIME 1,000 MG in SYRINGE 0 ML IV SCH (09:30)
[2020-12-05] MEDS: tiZANidine HCL 4 MG TABLET PO SCH (12:21)
[2020-12-05] MEDS: ADVANCED PROBIOTIC 1250 MG CAPSULE PO SCH (12:22)
[2020-12-05] MEDS: DOCUSATE SODIUM 100 MG CAP PO SCH (12:22)
[2020-12-05] MEDS ORDERED: CEFEPIME 1,000 MG in SYRINGE 0 ML IV ONE (12:30)
--- NOTE | 2020-12-05 14:59 | Hospitalist Progress Note ---
Date of Service December 05, 2020 Assessment & Plan (1) Encephalopathy: Transient metabolic Encephalopathy Multifactorial : Complicated UTI, hx neurogenic bladder with suprapubic catheter, chronic methenamine suppression Rx, possible sepsis Recent Reglan Rx for possible gastroparesis contributory given potential interaction with patient's multiple neuropsychotropic/antispasmodic agents Stop Reglan, add to ADR list Resolved after initial ER intervention Catheter associated UTI Has been on intravenous daptomycin, Cefepime complicated UTI Urine and blood cultures pending Has been feeling much better without any symptoms Denies any more confusion as of this morning No more confusion 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 Coumadin INR goal between 2 and 3 Full code Patient's requesting updates providers. Ms. Rody Rodriguez, contact #[phone]. Discharge date remains uncertain Admission and Anticipated Discharge Date Admission Date: December 04, 2020 Subjective 12/04/2020 The patient was seen and examined in medical telemetry unit He denies any symptoms as of today Denies any pain, nausea and or vomiting, shortness of breath or palpitation No fever and no chills 12/05/2020 The patient was seen and examined in medical floor He complains to have muscle spasms at the back but otherwise remained asymptomatic Denies any fever and/or chills Review of Systems Review of Systems: All systems reviewed and are unremarkable except as noted below Musculoskeletal: + back pain (With muscle spasm) Physical Exam Physical Exam: Lying in bed comfortably Constitutional: well developed, well nourished and + morbidly obese; not ill appearing Eyes: PERRL, conjunctivae normal, anicteric sclerae ENMT: external ear and nose normal, oropharynx normal Neck: trachea midline, no thyromegaly Respiratory: no respiratory distress Auscultation: lungs clear to auscultation bilaterally Cardiovascular: Rate/Rhythm: regular rate and regular rhythm Heart Sounds: no murmur Extremities: + edema (Trace to 1+ edema bilaterally) Gastrointestinal (Abdomen): Inspection/Auscultation: + abdomen distended; + abnormal bowel sounds Percussion/Palpation: abdomen soft; abdomen nontender Musculoskeletal: No acute arthritis involving any joint Neurologic: Alert, awake and oriented x3 Psychiatric: A+Ox3, euthymic affect Lymphatic: no cervical or axillary lymphadenopathy Results & Data Results & Data ([facility]) Vital Signs (Past 12 Hours) Vital Signs Temp Pulse Resp BP Pulse Ox 12/05/20 07:16 36.8 C 99 H 18 148/80 H 94 Laboratory Results Short CBC 12/05/20 Range/Units 06:24 WBC 15.80 H (4.8-10.8) K/uL Hgb 11.5 L (14.0-18.0) g/dL Hct 35.8 L (42-52) % Plt Count 343 (130-400) K/uL BMP 12/05/20 06:24 Sodium 137 Potassium 3.9 Chloride 100 Carbon Dioxide 32 BUN 11 Creatinine 1.16 Glucose 134 H Calcium 9.3 Medications Administered Current Inpatient Medications Acetaminophen (Acetaminophen 325 Mg Tab) 650 mg PO Q4H PRN PRN Reason: Pain or Fever Stop: 01/03/21 04:01 Allopurinol (Allopurinol 100 Mg Tab) 100 mg PO BID@0600,1800 [facility] Stop: 01/03/21 05:59 Last Admin: 12/05/20 05:54 Dose: 100 mg Documented by: Baclofen (Baclofen 10 Mg Tab) 5 mg PO BID@0600,1200 [facility] Stop: 01/03/21 05:59 Last Admin: 12/05/20 12:21 Dose: 5 mg Documented by: Baclofen (Baclofen 10 Mg Tab) 10 mg PO DAILY@0000 [facility] Stop: 01/04/21 00:00 Last Admin: 12/04/20 23:45 Dose: 10 mg Documented by: Dextrose (Dextrose 50% 50 Ml Syringe) 25 - 50 ml IV UD PRN; Protocol PRN Reason: Hypoglycemia Protocol Stop: 01/03/21 04:01 Docusate Sodium (Docusate Sodium 100 Mg Cap) 100 mg PO BID@0000,1200 [facility] Stop: 01/03/21 11:59 Last Admin: 12/05/20 12:22 Dose: 100 mg Documented by: Escitalopram Oxalate (Escitalopram Oxalate 20 Mg Tab) 20 mg PO QAM [facility] Stop: 01/03/21 08:59 Last Admin: 12/05/20 08:48 Dose: 20 mg Documented by: Famotidine (Famotidine 20 Mg Tab) 20 mg PO QAM [facility] Stop: 01/03/21 08:59 Last Admin: 12/05/20 08:48 Dose: 20 mg Documented by: Ferrous Gluconate (Ferrous Gluconate 324 Mg Tab) 324 mg PO QAM [facility] Stop: 01/03/21 08:59 Last Admin: 12/05/20 08:49 Dose: 324 mg Documented by: Glucagon (Glucagon For Inj 1 Mg Vial) 1 mg SQ UD PRN; Protocol PRN Reason: Hypoglycemia Protocol Stop: 01/03/21 04:01 Glucose (Glucose 10 Tabs/Tube) 4 - 8 tabs PO UD PRN; Protocol PRN Reason: Hypoglycemia Protocol Stop: 01/03/21 04:01 Glucose (Glucose 40% Gel 15 Gm Tube) 15 - 30 gm PO UD PRN; Protocol PRN Reason: Hypoglycemia Protocol Stop: 01/03/21 04:01 Daptomycin 650 mg/ Syringe 13 mls @ 6.5 mls/min IV Q24H [facility]; Protocol Stop: 12/13/20 02:01 Last Admin: 12/05/20 01:55 Dose: 6.5 mls/min Documented by: Promethazine HCl 12.5 mg/ (Sodium Chloride) 50.5 mls @ 202 mls/hr IV Q6H PRN PRN Reason: Nausea And Vomiting Stop: 01/03/21 04:01 Cefepime HCl 2,000 mg/ Syringe 20 mls @ 5 mls/min IV Q12H [facility] Stop: 12/15/20 21:59 Insulin Aspart (Insulin Aspart 100 Units/Ml 3 Ml Pen) 0 units SC ACHS [facility] Stop: 01/03/21 04:01 Last Admin: 12/05/20 12:49 Dose: 3 units Documented by: Insulin Glargine (Insulin Glargine Solostar 100 Units/Ml 3 Ml Pen) 5 units SC BID [facility] Stop: 01/03/21 08:59 Last Admin: 12/05/20 08:52 Dose: 5 units Documented by: Lactobacillus Acidoph/Casei/Rhamnos (Advanced Probiotic 1250 Mg Capsule) 2 cap PO BID@0000,1200 [facility] Stop: 01/03/21 11:59 Last Admin: 12/05/20 12:22 Dose: 2 cap Documented by: Metoclopramide HCl (Metoclopramide Hcl 10 Mg Tablet) 10 mg PO AC [facility] Stop: 01/03/21 07:29 Last Admin: 12/04/20 16:55 Dose: Not Given Documented by: Miscellaneous (Carbohydrates For Hypoglycemia ) 15 - 30 gm PO UD PRN PRN Reason: Hypoglycemia Protocol Stop: 01/03/21 04:01 Multivitamins (Multivitamin Tab) [address] [facility] Stop: 01/03/21 08:59 Last Admin: 12/05/20 08:48 Dose: 1 tab Documented by: Pantoprazole Sodium (Pantoprazole 40 Mg Tab) [facility]: 01/03/21 08:59 Last Admin: 12/05/20 08:48 Dose: 40 mg Documented by: Spironolactone (Spironolactone 25 Mg Tab) [facility] [place] Stop: 01/03/21 08:59 Last Admin: 12/05/20 08:48 Dose: 25 mg Documented by: Tizanidine HCl (Tizanidine Hcl 4 Mg Tablet) 4 mg PO BID@0000,1200 [facility] Stop: 01/04/21 11:59 Last Admin: 12/05/20 12:21 Dose: 4 mg Documented by: Tramadol HCl (Tramadol Hcl 50 Mg Tablet) 25 - 50 mg PO Q4H PRN PRN Reason: Pain Stop: 01/03/21 04:01 Last Admin: 12/05/20 10:05 Dose: 50 mg Documented by: Warfarin Sodium (Warfarin Sod 5 Mg Tab) 5 mg PO DAILY@1600 [facility] Stop: 01/04/21 15:59
[2020-12-05] MEDS: WARFARIN SOD 5 MG TAB PO SCH (17:02)
[2020-12-05] MEDS ORDERED: OPTIRAY 320 125ml IV ONE (19:11)
--- NOTE | 2020-12-05 19:25 | CT Scan Report ---
CT OF THE ABDOMEN AND PELVIS WITH CONTRAST CLINICAL HISTORY: Abdominal bloating. COMPARISON STUDY: CT of the abdomen and pelvis and right upper quadrant ultrasound March 27, 2020. TECHNIQUE: Following IV administration of 120 mL of Optiray-320, axial images of the abdomen and pelv is were obtained from the lung bases to the proximal femurs. Images were reviewed in the axial, sagit brandi, and coronal planes. IV contrast was administered without complication. Automated exposure contr ol was utilized for the study. A dose lowering technique was utilized adhering to the principles of ALARA. CT DOSE: 2309.48 mGy.cm FINDINGS: Lung bases are unremarkable. Note is made of cardiomegaly. No pneumatosis, free air or port al venous gas is present. There is hepatic steatosis. A right adrenal nodule is unchanged. This is be nign. The spleen, left adrenal gland and pancreas are unremarkable. There is no biliary or pancreatic ductal dilatation. There is no peripancreatic or pericholecystic infiltration. 2 mm left renal calcu lilian is noted. A few right renal calculi measure up to 4 mm. There is no hydronephrosis. There are no ureteral calculi. Suprapubic catheter is in place. Mild bladder wall thickening is accentuated by und erdistention. There is a descending colostomy. There is no evidence for a bowel obstruction. A modera te amount stool within the colon is noted. No ascites is present. IVC filters in place. Abdominal wal l collaterals are noted. These are unchanged. A left gluteal decubitus ulcer is unchanged since prior CT. Associated erosion of the left ischial tuberosity is unchanged. This is similar to CT of March. The appearance of the abdomen and pelvis is unchanged. Old postoperative finding within the p osterior left chest wall are noted. Exam is mildly compromised due to body wall contacting the gantry . IMPRESSION: 1. No acute process within the abdomen or pelvis. 2. Bilateral nephrolithiasis. No ureteral calculi or hydronephrosis. Suprapubic catheter in place. Mi ld bladder wall thickening. 3. No bowel obstruction. Moderate amount stool within the colon. 4. Hepatic steatosis. 5. No change in appearance of a chronic left gluteal decubitus ulcer and associated chronic erosion o f the left ischial tuberosity. ACT 112: Negative or not required by law. Electronically signed by: Sami Jacobson M.D. 12/05/2020 7:24 PM
[2020-12-05] MEDS: CEFEPIME 2,000 MG in SYRINGE 0 ML IV SCH (21:43)
[2020-12-06] MEDS: DOCUSATE SODIUM 100 MG CAP PO SCH ×2 (00:08→12:09)
[2020-12-06] MEDS: ADVANCED PROBIOTIC 1250 MG CAPSULE PO SCH ×2 (00:08→12:10)
[2020-12-06] MEDS: tiZANidine HCL 4 MG TABLET PO SCH ×2 (00:09→12:10)
[2020-12-06] MEDS: BACLOFEN 10 MG TAB PO SCH ×3 (00:09→12:09)
[2020-12-06] MEDS: DAPTOmycin 650 MG in SYRINGE 0 ML IV SCH (02:16)
[2020-12-06] MEDS: allopurinoL 100 MG TAB PO SCH (06:20)
[2020-12-06 06:59] VITALS: TEMP 98.4
[2020-12-06] MEDS: MULTIVITAMIN TAB PO SCH (07:41)
[2020-12-06] MEDS: SPIRONOLACTONE 25 MG TAB PO SCH (07:41)
[2020-12-06] MEDS: FERROUS GLUCONATE 324 MG TAB PO SCH (07:41)
[2020-12-06] MEDS: ESCITALOPRAM OXALATE 20 MG TAB PO SCH (07:41)
[2020-12-06] MEDS: PANTOprazole 40 MG TAB PO SCH (07:41)
[2020-12-06] MEDS: FAMOTIDINE 20 MG TAB PO SCH (07:43)
[2020-12-06 08:12] LABS: INR 1.6 (0.9-1.1); Prothrombin Time 15.3 Seconds (9.0-12.0)
[2020-12-06] MEDS: INSULIN ASPART 100 UNITS/ML 3 ML PEN SC SCH ×2 (09:27→13:16)
[2020-12-06] MEDS: INSULIN GLARGINE SOLOSTAR 100 UNITS/ML 3 ML PEN SC SCH (09:27)
[2020-12-06] MEDS: CEFEPIME 2,000 MG in SYRINGE 0 ML IV SCH (09:28)
[2020-12-06] MEDS ORDERED: MEROPENEM CONSULT ACITVE PRN (10:02)
[2020-12-06] MEDS ORDERED: MEROPENEM 500 MG in SYRINGE 0 ML IV ONE (10:15)
--- NOTE | 2020-12-06 13:03 | Hospitalist Progress Note ---
Date of Service December 06, 2020 Assessment & Plan (1) Encephalopathy: Transient metabolic Encephalopathy Multifactorial : Complicated UTI, hx neurogenic bladder with suprapubic catheter, chronic methenamine suppression Rx, possible sepsis Recent Reglan Rx for possible gastroparesis contributory given potential interaction with patient's multiple neuropsychotropic/antispasmodic agents Stop Reglan, add to ADR list Resolved after initial ER intervention No more confusion noted in the hospital Catheter associated UTI Has been on intravenous daptomycin, Cefepime complicated UTI Urine and blood cultures pending Has been feeling much better without any symptoms Urine culture grew multidrug-resistant Pseudomonas aeruginosa Cefepime and daptomycin but discontinued and he was started with intravenous meropenem Already has an ultrasound-guided peripheral line He will be going home this afternoon with IV meropenem for 14 days His catheter changed on Wednesday last 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 Coumadin INR goal between 2 and 3 Full code Patient's requesting updates providers. Ms. Rody Rodriguez, contact #[phone]. He will be discharged home this afternoon Admission and Anticipated Discharge Date Admission Date: December 04, 2020 Subjective 12/04/2020 The patient was seen and examined in medical telemetry unit He denies any symptoms as of today Denies any pain, nausea and or vomiting, shortness of breath or palpitation No fever and no chills 12/05/2020 The patient was seen and examined in medical floor He complains to have muscle spasms at the back but otherwise remained asymptomatic Denies any fever and/or chills 12/06/2020 The patient was seen and examined in medical floor He remains stable and does not complain any back pain and/or spasm He denied any other symptoms and wants to go home today Review of Systems Review of Systems: All systems reviewed and are unremarkable except as noted below Physical Exam Physical Exam: Lying in bed comfortably Constitutional: well developed, well nourished and + morbidly obese; not ill appearing Eyes: PERRL, conjunctivae normal, anicteric sclerae ENMT: external ear and nose normal, oropharynx normal Neck: trachea midline, no thyromegaly Respiratory: no respiratory distress Auscultation: lungs clear to auscultation bilaterally Cardiovascular: Rate/Rhythm: regular rate and regular rhythm Heart Sounds: no murmur Extremities: + edema (Trace to 1+ edema bilaterally) Gastrointestinal (Abdomen): Inspection/Auscultation: + abdomen distended; + abnormal bowel sounds Percussion/Palpation: abdomen soft; abdomen nontender Musculoskeletal: No more back spasm but has chronic back pain Neurologic: Alert, awake and oriented x3. He is quadriplegic secondary to traumatic cervical cord injury in the past Psychiatric: A+Ox3, euthymic affect Lymphatic: no cervical or axillary lymphadenopathy Results & Data Results & Data ([facility]) Vital Signs (Past 12 Hours) Vital Signs Temp Pulse Resp BP Pulse Ox 12/06/20 06:57 36.9 C 104 H 18 138/81 95 Medications Administered Current Inpatient Medications Acetaminophen (Acetaminophen 325 Mg Tab) 650 mg PO Q4H PRN PRN Reason: Pain or Fever Stop: 01/03/21 04:01 Allopurinol (Allopurinol 100 Mg Tab) 100 mg PO BID@0600,1800 [facility] Stop: 01/03/21 05:59 Last Admin: 12/06/20 06:20 Dose: 100 mg Documented by: Baclofen (Baclofen 10 Mg Tab) 5 mg PO BID@0600,1200 [facility] Stop: 01/03/21 05:59 Last Admin: 12/06/20 12:09 Dose: 5 mg Documented by: Baclofen (Baclofen 10 Mg Tab) 10 mg PO DAILY@0000 [facility] Stop: 01/04/21 00:00 Last Admin: 12/06/20 00:09 Dose: 10 mg Documented by: Dextrose (Dextrose 50% 50 Ml Syringe) 25 - 50 ml IV UD PRN; Protocol PRN Reason: Hypoglycemia Protocol Stop: 01/03/21 04:01 Docusate Sodium (Docusate Sodium 100 Mg Cap) 100 mg PO BID@0000,1200 [facility] Stop: 01/03/21 11:59 Last Admin: 12/06/20 12:09 Dose: 100 mg Documented by: Escitalopram Oxalate (Escitalopram Oxalate 20 Mg Tab) 20 mg PO QAM [facility] Stop: 01/03/21 08:59 Last Admin: 12/06/20 07:41 Dose: 20 mg Documented by: Famotidine (Famotidine 20 Mg Tab) 20 mg PO QAM [facility] Stop: 01/03/21 08:59 Last Admin: 12/06/20 07:43 Dose: 20 mg Documented by: Ferrous Gluconate (Ferrous Gluconate 324 Mg Tab) 324 mg PO QAM [facility] Stop: 01/03/21 08:59 Last Admin: 12/06/20 07:41 Dose: 324 mg Documented by: Glucagon (Glucagon For Inj 1 Mg Vial) 1 mg SQ UD PRN; Protocol PRN Reason: Hypoglycemia Protocol Stop: 01/03/21 04:01 Glucose (Glucose 10 Tabs/Tube) 4 - 8 tabs PO UD PRN; Protocol PRN Reason: Hypoglycemia Protocol Stop: 01/03/21 04:01 Glucose (Glucose 40% Gel 15 Gm Tube) 15 - 30 gm PO UD PRN; Protocol PRN Reason: Hypoglycemia Protocol Stop: 01/03/21 04:01 Promethazine HCl 12.5 mg/ (Sodium Chloride) 50.5 mls @ 202 mls/hr IV Q6H PRN PRN Reason: Nausea And Vomiting Stop: 01/03/21 04:01 Meropenem 500 mg/ Syringe 10 mls @ 2 mls/min IV Q6H [facility]; Protocol Stop: 12/16/20 15:59 Insulin Aspart (Insulin Aspart 100 Units/Ml 3 Ml Pen) 0 units SC ACHS [facility] Stop: 01/03/21 04:01 Last Admin: 12/06/20 09:27 Dose: 3 units Documented by: Insulin Glargine (Insulin Glargine Solostar 100 Units/Ml 3 Ml Pen) 5 units SC BID [facility] Stop: 01/03/21 08:59 Last Admin: 12/06/20 09:27 Dose: 5 units Documented by: Lactobacillus Acidoph/Casei/Rhamnos (Advanced Probiotic 1250 Mg Capsule) 2 cap PO BID@0000,1200 [facility] Stop: 01/03/21 11:59 Last Admin: 12/06/20 12:10 Dose: 2 cap Documented by: Metoclopramide HCl (Metoclopramide Hcl 10 Mg Tablet) 10 mg PO AC [facility] Stop: 01/03/21 07:29 Last Admin: 12/04/20 16:55 Dose: Not Given Documented by: Miscellaneous (Carbohydrates For Hypoglycemia ) 15 - 30 gm PO UD PRN PRN Reason: Hypoglycemia Protocol Stop: 01/03/21 04:01 Miscellaneous Information (Meropenem Consult Acitve) 1 ea N/A UD PRN PRN Reason: Consult Stop: 01/05/21 10:01 Multivitamins (Multivitamin Tab) 1 tab PO [facility] Stop: 01/03/21 08:59 Last Admin: 12/06/20 07:41 Dose: 1 tab Documented by: Pantoprazole Sodium (Pantoprazole 40 Mg Tab) 40 mg PO [facility] Stop: 01/03/21 08:59 Last Admin: 12/06/20 07:41 Dose: 40 mg Documented by: Spironolactone (Spironolactone 25 Mg Tab) 25 mg PO [facility] Stop: 01/03/21 08:59 Last Admin: 12/06/20 07:41 Dose: 25 mg Documented by: Tizanidine HCl (Tizanidine Hcl 4 Mg Tablet) 4 mg PO BID@0000,1200 [facility] Stop: 01/04/21 11:59 Last Admin: 12/06/20 12:10 Dose: 4 mg Documented by: Tramadol HCl (Tramadol Hcl 50 Mg Tablet) 25 - 50 mg PO Q4H PRN PRN Reason: Pain Stop: 01/03/21 04:01 Last Admin: 12/05/20 10:05 Dose: 50 mg Documented by: Warfarin Sodium (Warfarin Sod 5 Mg Tab) 5 mg PO DAILY@1600 [facility] Stop: 01/04/21 15:59 Last Admin: 12/05/20 17:02 Dose: 5 mg Documented by:
[2020-12-06 14:39] VITALS: BP 112/72; PULSE 88; O2SAT 93
[2020-12-06] MEDS ORDERED: MEROPENEM 500 MG in SYRINGE 0 ML IV SCH (16:00)
[2020-12-06] MEDS: WARFARIN SOD 5 MG TAB PO SCH (16:26)
--- NOTE | 2020-12-07 08:42 | Discharge Summary ---
Date of Service December 07, 2020 Admission HPI Per Admitting Provider History obtained from patient and records. Patient is a reliable historian. 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 dif Last confinement March 2020 for infected sacral wound. The last month, patient having increased problems with reflux when he wakes up in the morning. Some days, patient with odynophagia symptoms and stomach feels full and bloated. Patient seen at PCPs office 2 weeks ago. Reglan started for possible gastroparesis. Outpatient GI consult contemplated next month. Patient had first dose of Reglan yesterday and noted to be very fatigued, drowsy and with slurred speech. Patient denies chest pain, S OB, cough, abdominal pain, dysuria/diarrhea symptoms. Patient received ceftriaxone in the ER for possible UTI. Patient feels much better is more awake. MEDICAL HISTORY: As above. CA gastric emptying study 04/25/2019 was normal. SURGICAL HISTORY: Kidney stone procedures, suprapubic catheter placement, neck surgery, IVC filter placement, ostomy//bowel surgery FAMILY HISTORY: DM, prostate cancer PERSONAL SOCIAL HISTORY: Nonsmoker. No chronic intake of alcoholic beverages. On disability. Admission Exam Per Admitting Provider Physical Exam: GENERAL: Comfortable, pleasant, morbidly obese, no respiratory distress SKIN: Pallor, warm HEENT: Pale palpebral conjunctivae, no ptosis, dry buccal mucosa NECK : Supple, short neck, no tenderness CHEST : Decreased breath sounds, no tenderness HEART : Tachycardic, no obvious murmurs ABDOMEN: distention, nontender Decubitus wound not examined EXTREMITIES : Minimal LE swelling, no LE tenderness, no other conspicuous deformities noted NEUROLOGIC : Coherent, no facial asymmetry, quadriplegia Principal Diagnosis Metabolic encephalopathy-resolved, catheter associated UTI with multidrug resistance Pseudomonas aeruginosa, partial quadriplegia secondary to traumatic cervical cord injury, hypertension Discharge Exam Constitutional well developed, well nourished and + morbidly obese; not ill appearing Eyes PERRL, conjunctivae normal, anicteric sclerae ENMT external ear and nose normal, oropharynx normal Neck trachea midline, no thyromegaly Respiratory no respiratory distress Auscultation: lungs clear to auscultation bilaterally Cardiovascular Rate/Rhythm: regular rate and regular rhythm Heart Sounds: no murmur Extremities: + edema (Trace to 1+ edema bilaterally) Gastrointestinal (Abdomen) Inspection/Auscultation: + abdomen distended; + abnormal bowel sounds Percussion/Palpation: abdomen soft; abdomen nontender Psychiatric A+Ox3, euthymic affect Lymphatic no cervical or axillary lymphadenopathy Discharge Data Allergies Allergy/AdvReac Type Severity Reaction Status Date / Time codeine Allergy Severe THROAT Verified 12/03/20 22:21 SWELLS latex Allergy Intermediate welts Verified 12/03/20 22:21 piperacillin Allergy Intermediate RASH Verified 12/03/20 22:21 Sulfa (Sulfonamide Allergy Intermediate HIVES Verified 12/03/20 22:21 Antibiotics) tazobactam Allergy Intermediate RASH Verified 12/03/20 22:21 aztreonam Allergy Unknown unknown Verified 12/03/20 22:21 lactose AdvReac Intermediate GI symptoms Verified 12/03/20 22:21 metoclopramide [From Reglan] AdvReac Mild lethargy Verified 12/04/20 02:58 Consultations 12/04/20 00:18 ED Decision to Admit Stat Ordered Studies 12/03/20 21:59 CT head/brain wo con Urgent 12/04/20 06:15 CT abd pelvis IV con only Urgent Hospital Course (1) Encephalopathy: Transient metabolic Encephalopathy Multifactorial : Complicated UTI, hx neurogenic bladder with suprapubic catheter, chronic methenamine suppression Rx, possible sepsis Recent Reglan Rx for possible gastroparesis contributory given potential interaction with patient's multiple neuropsychotropic/antispasmodic agents Stop Reglan, add to ADR list Resolved after initial ER intervention No more confusion noted in the hospital Catheter associated UTI Has been on intravenous daptomycin, Cefepime complicated UTI Urine and blood cultures pending Has been feeling much better without any symptoms Urine culture grew multidrug-resistant Pseudomonas aeruginosa Cefepime and daptomycin but discontinued and he was started with intravenous meropenem Already has an ultrasound-guided peripheral line He will be going home this afternoon with IV meropenem for 14 days His catheter changed on Wednesday last Partial quadriplegia secondary to traumatic cervical spinal cord injury, No acute symptoms Hypertension, BP on the lower side Blood pressure is running high as of today We will continue current medications ARF secondary dehydration Received intravenous fluid and creatinine normalized DM2--insulin-requiring, well-controlled as of recent hemoglobin A1c of 7 last August 2020 Basal insulin, ISS BG goal [id number] History of DVT on anticoagulation, INR therapeutic Chronic anemia, hemoglobin at baseline DVT prophylaxis. Coumadin INR goal between 2 and 3 Full code Patient's requesting updates providers. Ms. Rody Rodriguez, contact #[phone]. He will be discharged home this afternoon Total Time Total Time Spent Total Time Spent (In Minutes): 45 minutes Total Time Includes: Examination of the Patient, Discharge Planning, Medication Reconciliation and Communication With Other Providers Discharge Plan Discharge Items Patient Disposition: Home - Home Health Services Reason For Visit: SEPSIS Discharge Diagnosis: Metabolic encephalopathy-resolved, catheter associated UTI with multidrug resistance Pseudomonas aeruginosa, partial quadriplegia secondary to traumatic cervical cord injury, hypertension Condition on Discharge: Good Activity: Resume your previous activity Non-emergency contact: Primary Care Provider Call non-emergency contact if: you have any medication questions and your symptoms worsen Follow-up/Referrals: Wilder Stanford MD [Primary Care Provider] - (Date & Time 12/10/2020 11:20 AM Provider Wilder Stanford MD Department Internal Medicine [facility] ) Diet: Carb Consistent or DM2 Addtl Attending Provider Instructions: Please take precautions to avoid falls. Finish the course of intravenous antibiotic as prescribed. Please keep your follow-up appointment including follow up with [facility] We will hold off any use of Reglan for now Pending Studies at Discharge: No Stand-Alone Forms: My [facility], Smoking Cessation Medications and DC Order Prescriptions: Continued warfarin 5 mg tablet See Rx Instructions .ROUTE .COMPLEX RF: 0 escitalopram oxalate 20 mg tablet 20 mg PO QAM RF: 0 Novolin 70/30 U-100 Insulin 100 unit/mL (70-30) suspension See Rx Instructions .ROUTE .COMPLEX RF: 0 atorvastatin 40 mg tablet 40 mg PO HS RF: 0 (DME) OneTouch Ultra Blue Test Strip strip See Rx Instructions .ROUTE .MEDSUPPLY Qty: 10 RF: 0 allopurinol 100 mg Tablet 100 mg PO BID RF: 0 ropinirole 1 mg Tablet 1 mg PO QID RF: 0 furosemide 40 mg Tablet 40 mg PO BID RF: 0 gabapentin 800 mg Tablet 800 mg PO BID RF: 0 ferrous gluconate 324 mg (38 mg iron) Tablet 324 mg PO QAM RF: 0 multivitamin Tablet 1 tab PO QAM RF: 0 pantoprazole 40 mg Tablet,Delayed Release (Dr/Ec) 40 mg PO QAM RF: 0 magnesium oxide 400 mg (241.3 mg magnesium) Tablet 400 mg PO BID RF: 0 baclofen 10 mg tablet See Rx Instructions .ROUTE .COMPLEX RF: 0 cyclobenzaprine 10 mg tablet 15 mg PO HS RF: 0 hyoscyamine sulfate 0.125 mg tablet 0.125 mg PO QPM RF: 0 tizanidine 4 mg tablet 4 mg PO BID RF: 0 potassium chloride 10 mEq tablet extended release 10 meq PO BIDM RF: 0 spironolactone [Aldactone] 25 mg tablet 25 mg PO QAM RF: 0 metformin [Glucophage] 1,000 mg tablet 1,000 mg PO BIDM RF: 0 Lactobacillus acidoph-L.bulgar [Floranex] 1 million cell tablet 1 tab PO BID RF: 0 Medical Marijuana 6 drp PO TID RF: 0 methenamine hippurate 1 gram Tablet 1 g PO BID 30 Days Qty: 60 RF: 2 famotidine [Acid Business Administrator (famotidine)] 20 mg Tablet 20 mg PO QAM RF: 0 ascorbic acid (vitamin C) [Vitamin C] 500 mg Tablet 250 mg PO TID RF: 0 docusate sodium [Stool Softener] 100 mg Capsule 100 mg PO BID RF: 0 cefdinir 300 mg capsule 300 mg PO BID RF: 0 coenzyme Q10 [CoQ-10] 100 mg Capsule 100 mg PO BID RF: 0 zinc sulfate 50 mg zinc (220 mg) Capsule 50 mg PO QDL RF: 0 Discontinued metoclopramide HCl [Reglan] 10 mg Tablet 10 mg PO AC RF: 0 Discharge Orders: Discharge Order (Routine); Ordered 12/06/20 Ordered By: Rc Frazier/Other Patient Handouts: Managing Type 2 Diabetes, Managing Diabetes: The A1C Test Admission Data Admit Date/Time: 12/04/20 01:21 Attending Provider: Rc Juarez Admit Provider: Marlon Brandt Primary Care Provider: Wilder Stanford Other Providers: Marlon Brandt ; Rita,Fax ; Velasquez Cutler [facility] Other Interventions: Discharge Summary Assessment (RN) Last Done: 12/06/20 16:54
== END 2020-12-06 17:58 | disposition home health service (06) | DRG 698 ==
LOC: ED 21:49 → SUATTDRO 12-04 01:21 → 2N 12-04 01:21 → 3E 12-04 17:28

== ENCOUNTER 2021-06-02 15:19 | Inpatient (IN) ==
[2021-06-02] MEDS ORDERED: ACETAMINOPHEN 500 MG TAB PO STA (16:13)
[2021-06-02] MEDS ORDERED: dexAMETHasone 6 MG in SYRINGE 0 ML IV ONE (18:14)
[2021-06-02 18:25] LABS: Basophils # (auto) 0.01 K/uL (0-0.2); Basophils % (auto) 0.1 %; Eosinophils # (auto) 0.12 K/uL (0-0.5); Eosinophils % (auto) 1.8 %; Hemoglobin 11.8 g/dL (14.0-18.0); Immature Granulocytes # (auto) 0.02 K/uL (0.00-0.02); Immature Granulocytes % (auto) 0.3 %; Lymphocytes # (auto) 1.39 K/uL (1.2-3.4); Lymphocytes % (auto) 20.5 %; Mean Corpuscular Hemoglobin 29.2 pg (25-34); Mean Corpuscular Hgb Conc 31.1 g/dL (32-36); Mean Corpuscular Volume 94.1 fL (80-100); Monocytes # (auto) 0.73 K/uL (0.11-0.59); Monocytes % (auto) 10.8 %; Neutrophils # (auto) 4.52 K/uL (1.4-6.5); Neutrophils % (auto) 66.5 %; Platelet Count 216 K/uL (130-400); RDW Coefficient of Variation 16.9 % (11.5-14.5); RDW Standard Deviation 58.5 fL (36.4-46.3); Red Blood Count 4.04 M/uL (4.7-6.1); White Blood Count 6.79 K/uL (4.8-10.8)
[2021-06-02] MEDS ORDERED: ACETAMINOPHEN 500 MG TAB ONE (18:31)
[2021-06-02] MEDS ORDERED: DEXAMETHASONE SOD INJ 4 MG/ML VIAL ONE (18:31)
[2021-06-02 18:39] LABS: Base Excess VBG 6.6 mEq/L; Oxygen Saturation VBG 79.1 %; pH VBG 7.33 (7.36-7.41)
--- NOTE | 2021-06-02 18:43 | Emergency Department Note ---
History of Present Illness General Chief complaint: Diarrhea History of Present Illness Marlon Rodriguez is a 60 year old male with extensive past medical history including but not limited to incomplete quadriplegia, ileus status post colostomy, C. difficile, chronic indwelling Martinez catheter, asymptomatic bacter iuria, DVT on Coumadin, CVA, DM2, DLD, HTN, osteomyelitis on cefdinir, seizures among others listed below who presents to the ED for evaluation of flu like symptoms including frontal headache, nasal congestion with postnasal drip, generalized body aches, nausea, and diarrhea since waking up this morning. The patient states that his recently tested positive for Covid19 one week ago. He was tested for Covid19 four days ago which she states was negative, however he has been in contact with additional people (his caregivers) who were also positive since he was last tested. The patient's has not been doing well with her diagnosis and when she called the ambulance to bring her to the emergency department today for worsening respiratory symptoms, the patient also requested to come to the emergency department for further evaluation due to his symptoms as well. En route to the hospital, the patient was noted to be hypoxic with oxygen saturations at 89% on room air. He was placed on 2 L of oxygen via nasal cannula which helped to increase his sats to the mid 90s. On arrival, he denies being in significant pain or feeling overly short of breath, however just states that he does not feel good. He has not yet attempted to take any medication for his symptoms. He denies having a sore throat, productive cough, loss of taste or smell. He does state he has felt a little nauseous but denies vomiting. The patient voices concerns that if his is admitted to the hospital he will not have anybody to help him at home due to his other caregivers also being ill at this time. Home Medications Medication Instructions Recorded Confirmed Type allopurinol 100 mg tablet 100 mg PO BID 05/07/18 06/02/21 History ferrous gluconate 324 mg (38 mg 324 mg PO QAM 05/07/18 06/02/21 History iron) tablet furosemide 40 mg tablet 40 mg PO BID 05/07/18 06/02/21 History gabapentin 800 mg tablet 800 mg PO BID 05/07/18 06/02/21 History magnesium oxide 400 mg (241.3 mg 400 mg PO BID 05/07/18 06/02/21 History magnesium) tablet multivitamin 1 tab PO QAM 05/07/18 06/02/21 History pantoprazole 40 mg tablet,delayed 40 mg PO QAM 05/07/18 06/02/21 History release ropinirole 1 mg tablet 1 mg PO QID 05/07/18 06/02/21 History escitalopram oxalate 20 mg tablet 20 mg PO QAM tab 08/21/19 06/02/21 History insulin human U-100 NPH-regulr 56 unit SUBCUT BID 08/21/19 06/02/21 History 70-30 mix 100 unit/mL subcutaneous susp (Novolin 70/30 U-100 Insulin) warfarin 5 mg tablet 5 mg PO 3XWK tab 08/21/19 06/02/21 History atorvastatin 40 mg tablet 40 mg PO HS 08/24/19 06/02/21 History baclofen 10 mg tablet 10 mg PO QID 09/22/19 06/02/21 History cyclobenzaprine 10 mg tablet 15 mg PO HS 03/01/20 06/02/21 History hyoscyamine sulfate 0.125 mg tablet 0.125 mg PO QPM 03/01/20 06/02/21 History metformin 1,000 mg tablet 1,000 mg PO BIDM 03/01/20 06/02/21 History (Glucophage) potassium chloride 10 mEq 10 meq PO BIDM 03/01/20 06/02/21 History tablet,extended release spironolactone 25 mg tablet 25 mg PO QAM 03/01/20 06/02/21 History (Aldactone) tizanidine 4 mg tablet 4 mg PO BID 03/01/20 06/02/21 History Medical Marijuana See Rx Instructions .ROUTE .COMPLEX 03/26/20 06/02/21 History methenamine hippurate 1 gram tablet 1 g PO BID 30 Days #60 tab 04/02/20 06/02/21 Rx ascorbic acid (vitamin C) 500 mg 250 mg PO TID 12/03/20 06/02/21 History tablet (Vitamin C) cefdinir 300 mg capsule 300 mg PO BID 12/03/20 06/02/21 History famotidine 20 mg tablet (Acid 20 mg PO BID 12/03/20 06/02/21 History Vehicle Check In Clerk (famotidine)) zinc sulfate 50 mg zinc (220 mg) 50 mg PO QDL 12/03/20 06/02/21 History capsule Lactobacillus acidoph-L.bulgaricus 1 tab PO BID 01/03/21 06/02/21 History 1 million cell tablet (Floranex) acetaminophen 500 mg capsule 1,000 mg PO Q6H PRN 01/03/21 06/02/21 History bethanechol chloride 5 mg tablet 5 mg PO TID 01/03/21 06/02/21 History insulin regular human 100 unit/mL 1 sliding scale dose SUBCUT 01/03/21 06/02/21 History injection solution (Novolin R USEASDIRECTD Regular U-100 Insulin) mecobalamin-levomefolate 1 tab PO BID 01/03/21 06/02/21 History calcium-pyridoxal phos 3 mg-35 mg-2 mg tablet (I-Ybruae-D3-B12) menthol 0.44 %-zinc oxide 20.6 % 1 applic TOPICAL QID PRN 01/03/21 06/02/21 History topical ointment (Calmoseptine) methenamin 81.6 mg-hyoscyam 0.12 1 tab PO QPM 01/03/21 06/02/21 History mg-methblue 10.8 yf-nz-coekjsi tablet nystatin 100,000 unit/gram topical 1 applic TOPICAL BID PRN 01/03/21 06/02/21 History powder nystatin-triamcinolone 100,000 1 applic TOPICAL BID 01/03/21 06/02/21 History unit/g-0.1 % topical cream triamcinolone acetonide 0.1 % 1 applic TOPICAL BID PRN 01/03/21 06/02/21 History topical cream irbesartan 75 mg tablet 75 mg PO DAILY 06/02/21 06/02/21 History warfarin 7.5 mg tablet 7.5 mg PO 4XWK 06/02/21 06/02/21 History Allergies Allergy/AdvReac Type Severity Reaction Status Date / Time codeine Allergy Severe THROAT Verified 06/02/21 20:28 SWELLS latex Allergy Intermediate welts Verified 06/02/21 20:28 piperacillin Allergy Intermediate RASH Verified 06/02/21 20:28 Sulfa (Sulfonamide Allergy Intermediate HIVES Verified 06/02/21 20:28 Antibiotics) tazobactam Allergy Intermediate RASH Verified 06/02/21 20:28 aztreonam Allergy Unknown unknown Verified 06/02/21 20:28 lactose AdvReac Intermediate GI symptoms Verified 06/02/21 20:28 metoclopramide [From Reglan] AdvReac Mild lethargy Verified 06/02/21 20:28 Past Med/Surg History Medical History Asymptomatic bacteriuria Clostridium difficile infection (Unknown) CVA (cerebral vascular accident) DM type 2 (diabetes mellitus, type 2) Dyslipidemia Dysphagia Fever History of blood clots History of DVT (deep vein thrombosis) Hypertension Hypotension Ileus Kidney disease Leukocytosis Major depressive disorder, recurrent Obesity Occluded PICC line Positive urine culture Quadriplegia BRAIN INJURY 11 YRS AGO Seizure SIRS (systemic inflammatory response syndrome) Sleep apnea (Unknown) OXYGEN 2L/MIN NC HS Syncope 57 year old with know quadriplegia and new onset syncope with change in position UTI (urinary tract infection) RECENT [facility] ADMISION-D/C 12/06/20 Surgical History History of colonoscopy 2010 History of open reduction and internal fixation (ORIF) procedure LEFT FEMUR Insertion of inferior vena caval filter (Unknown) Lithotripsy (Unknown) "laser lithotripsy left ureteral stone 03/17/11 " S/P knee surgery S/P tonsillectomy Suprapubic cystostomy (Unknown) IN PLACE Family History Mother No pertinent family history Family history of diabetes mellitus Father Family hx of colon cancer Social History Smoking Status: Unknown if ever smoked Second Hand Exposure: Yes (FATHER SMOKED); Hx Alcohol Use: No Hx Substance Use: Yes Substance Use Type Other:: MEDICAL MARIJUANA TINCTURE BID ON TONGUE Preferred Language: [place] Verdean Communication Ability: Effective Visual Impairment: No Limitations Fiberglass Tube Molder Required: No Beliefs That Will Affect Care: None marital status: Current Living Situation: Spouse current occupational status: disabled Feels Safe at Home: Yes Physical Activity Frequency Comment: QUADRAPLEGIA C4-5-ABLE TO MOVE ARMS, HANDS Assistive Devices: Glasses, Oxygen - at Night and Wheelchair Review of Systems A total of 10 systems reviewed and were otherwise negative Physical Exam Vital Signs Vital Signs - 24 hr 06/02/21 15:58 06/02/21 17:07 06/02/21 18:00 Temperature 37.2 C 37.2 C Temperature Source Oral Oral Pulse Rate 101 H Pulse Rate [Right Finger] 101 H Pulse Rhythm Regular Respiratory Rate 20 18 20 Respiratory Effort / Characteristics Non-Labored Respiratory Depth Normal Blood Pressure 133/71 Blood Pressure [Right Arm] Blood Pressure Mean 91 Blood Pressure Mean [Right Arm] Blood Pressure Position Lying Pulse Oximetry 92 95 88 L Oxygen Delivery Method Nasal Cannula Nasal Cannula Room Air Oxygen Flow Rate 2 2 Sepsis Recent Fever Within 48 Hours No Sepsis New/Unexplained Change in Mental Status No Sepsis Action Taken by Nursing No Action Required 06/02/21 19:00 Temperature 37 C Temperature Source Oral Pulse Rate Pulse Rate [Right Finger] 95 H Pulse Rhythm Respiratory Rate 18 Respiratory Effort / Characteristics Respiratory Depth Blood Pressure Blood Pressure [Right Arm] 133/71 Blood Pressure Mean Blood Pressure Mean [Right Arm] 91 Blood Pressure Position Pulse Oximetry 96 Oxygen Delivery Method Nasal Cannula Oxygen Flow Rate 2 Sepsis Recent Fever Within 48 Hours Sepsis New/Unexplained Change in Mental Status Sepsis Action Taken by Nursing General: Appears clammy and diaphoretic, resting in bed HEENT: Normocephalic, atraumatic, PERRL, EOMI, mucous membranes moist, oropharynx clear Neck: Trachea midline, no meningismus, no mid-line cervical tenderness Resp: Good inspiratory effort with 2L O2 via NC in place, lung sounds clear bila terally CV: Regular rate and rhythm, peripheral pulses palpated Back: No midline tenderness to the thoracic spine, no midline tenderness to the lumbar spine, no obvious step-offs or deformities Abd: Obese, colostomy bag in place to the LUQ with brown/green liquid stool in the bag. No tenderness to palpation in any quadrant. MSK: History of incomplete quadriplegia - able to move arms with strength 4/5, not moving legs or feet on my exam. No external signs of trauma, no obvious long bone deformities Neruo: Awake, alert and oriented x 3, interacting and answering questions appropriately Course Administered Medications Gabapentin (Gabapentin 400 Mg Cap) 400 mg PO BID JO Stop: 07/02/21 22:29 Last Admin: 06/02/21 23:02 Dose: 400 mg Documented by: [id number] Heparin Sodium/Dextrose (Heparin Sodium/Dextrose) 25,000 units in 500 mls @ 41 mls/hr IV .[id number] [facility]; Protocol Stop: 07/02/21 22:29 Last Admin: 06/02/21 22:48 Dose: 2,050 units/hr, 41 mls/hr Documented by: [id number] Cosigned by: [id number] Insulin Aspart (Insulin Aspart 100 Units/Ml 3 Ml Pen) 0 units SC ACHS [facility] Stop: 07/02/21 21:59 Last Admin: 06/02/21 23:34 Dose: 2 units Documented by: [id number] Cosigned by: [id number] Insulin Glargine (Insulin Glargine Solostar 100 Units/Ml 3 Ml Pen) 5 units SC BID [facility] Stop: 07/02/21 22:44 Last Admin: 06/02/21 23:34 Dose: 5 units Documented by: [id number] Cosigned by: [id number] Tizanidine HCl (Tizanidine Hcl 4 Mg Tablet) 4 mg PO BID [facility] Stop: 07/02/21 22:29 Last Admin: 06/02/21 23:03 Dose: 4 mg Documented by: [id number] Discontinued Medications Acetaminophen (Acetaminophen 500 Mg Tab) 1,000 mg PO NOW STA Stop: 06/02/21 16:14 Last Admin: 06/02/21 18:43 Dose: 1,000 mg Documented by: [id number] Acetaminophen (Acetaminophen 500 Mg Tab) Confirm Administered Dose 1,000 mg .ROUTE .STK-MED ONE Stop: 06/02/21 18:32 Last Admin: 06/02/21 23:02 Dose: Not Given Documented by: [id number] Dexamethasone (Dexamethasone Sod Inj 4 Mg/Ml Vial) Confirm Administered Dose 8 mg .ROUTE .STK-MED ONE Stop: 06/02/21 18:32 Last Admin: 06/02/21 18:42 Dose: 6 mg Documented by: [id number] Dexamethasone 6 mg/ Syringe 1.5 mls @ 1 mls/min IV ONE ONE Stop: 06/02/21 18:15 Last Admin: 06/02/21 18:42 Dose: 1 mls/min Documented by: [id number] Remdesivir 200 mg/ Sodium (Chloride) 250 mls @ 125 mls/hr IV ONE STA; Protocol Stop: 06/02/21 21:50 Last Admin: 06/02/21 22:07 Dose: 125 mls/hr Documented by: [id number] Levalbuterol HCl (Levalbuterol Tartrate 15 Gm Hfa.Aer.Ad) 2 puffs INH NOW STA Stop: 06/02/21 19:52 Last Admin: 06/02/21 21:28 Dose: Not Given Documented by: [id number] Medical Decision Making Differential Diagnosis Etiologies such as viral syndrome, otitis, pharyngitis, COVID-19, pneumonia, influenza, meningitis, urinary tract infection, septic arthritis, soft tissue infectious process, intra-abdominal process, sepsis, bacteremia, c. diff, food poisoning, gastroenteritis, food borne illness, infections, appendicitis, diverticulitis, inflammatory bowel disease, obstruction, GI bleed, biliary pathology, as well as others were entertained. Laboratory Data Result diagrams: 06/02/21 18:10 06/02/21 18:10 Lab Results 06/02/21 06/02/21 06/02/21 Range/Units 16:30 16:30 16:30 WBC (4.8-10.8) K/uL RBC (4.7-6.1) M/uL Hgb (14.0-18.0) g/dL Hct (42-52) % MCV (80-100) fL MCH (25-34) pg MCHC (32-36) g/dL RDW Std Deviation (36.4-46.3) fL RDW Coeff of Yoseph (11.5-14.5) % Plt Count (130-400) K/uL MPV (7.4-10.4) fL Immature Gran % (Auto) % Neut % (Auto) % Lymph % (Auto) % Spink % (Auto) % Eos % (Auto) % Baso % (Auto) % Neut # (Auto) (1.4-6.5) K/uL Lymph # (Auto) (1.2-3.4) K/uL Spink # (Auto) (0.11-0.59) K/uL Eos # (Auto) (0-0.5) K/uL Baso # (Auto) (0-0.2) K/uL Immature Gran # (Auto) (0.00-0.02) K/uL PT (9.0-12.0) Seconds INR (0.9-1.1) D-Dimer (0-500) ug/L FEU VBG pH (7.36-7.41) VBG pCO2 (38-50) mmHg VBG pO2 mmHg VBG HCO3 mmol/L VBG O2 Saturation % VBG Base Excess mEq/L Barometric Pressure mm/Hg Sodium (136-145) mmol/L Potassium (3.5-5.1) mmol/L Chloride (98-107) mmol/L Carbon Dioxide (21-32) mmol/L Anion Gap (3-11) BUN (7-18) mg/dl Creatinine (0.6-1.4) mg/dl Est Cr Clr Drug Dosing ml/min Est GFR ( Amer) ml/min Est GFR (Non-Af Amer) ml/min Fasting Glucose (70-99) mg/dl Lactate (0.4-2.0) mmol/L Calcium (8.5-10.1) mg/dl Magnesium (1.8-2.4) mg/dl Troponin I (0-0.045) ng/ml C-Reactive Protein (0-0.29) mg/dl Procalcitonin (0-0.5) ng/ml Stl C. diff Tox B Gene Negative Cdiff Gene (Neg) COVID-19 Eval Order Covid19 at [facility] SARS-CoV-2 (PCR) POSITIVE A* (Negative) 06/02/21 06/02/21 06/02/21 Range/Units 18:10 18:10 18:10 WBC 6.79 (4.8-10.8) K/uL RBC 4.04 L (4.7-6.1) M/uL Hgb 11.8 L (14.0-18.0) g/dL Hct 38.0 L (42-52) % MCV 94.1 (80-100) fL MCH 29.2 (25-34) pg MCHC 31.1 L (32-36) g/dL RDW Std Deviation 58.5 H (36.4-46.3) fL RDW Coeff of Yoseph 16.9 H (11.5-14.5) % Plt Count 216 (130-400) K/uL MPV 9.0 (7.4-10.4) fL Immature Gran % (Auto) 0.3 % Neut % (Auto) 66.5 % Lymph % (Auto) 20.5 % Spink % (Auto) 10.8 % Eos % (Auto) 1.8 % Baso % (Auto) 0.1 % Neut # (Auto) 4.52 (1.4-6.5) K/uL Lymph # (Auto) 1.39 (1.2-3.4) K/uL Spink # (Auto) 0.73 H (0.11-0.59) K/uL Eos # (Auto) 0.12 (0-0.5) K/uL Baso # (Auto) 0.01 (0-0.2) K/uL Immature Gran # (Auto) 0.02 (0.00-0.02) K/uL PT (9.0-12.0) Seconds INR (0.9-1.1) D-Dimer (0-500) ug/L FEU VBG pH (7.36-7.41) VBG pCO2 (38-50) mmHg VBG pO2 mmHg VBG HCO3 mmol/L VBG O2 Saturation % VBG Base Excess mEq/L Barometric Pressure mm/Hg Sodium 136 (136-145) mmol/L Potassium 4.1 (3.5-5.1) mmol/L Chloride 98 (98-107) mmol/L Carbon Dioxide 34 H (21-32) mmol/L Anion Gap 4.0 (3-11) BUN 31 H (7-18) mg/dl Creatinine 1.61 H (0.6-1.4) mg/dl Est Cr Clr Drug Dosing 77.2 ml/min Est GFR ( Amer) 52.7 ml/min Est GFR (Non-Af Amer) 45.5 ml/min Fasting Glucose 112 H (70-99) mg/dl Lactate 1.2 (0.4-2.0) mmol/L Calcium 9.0 (8.5-10.1) mg/dl Magnesium (1.8-2.4) mg/dl Troponin I (0-0.045) ng/ml C-Reactive Protein (0-0.29) mg/dl Procalcitonin (0-0.5) ng/ml Stl C. diff Tox B Gene (Neg) COVID-19 Eval Order SARS-CoV-2 (PCR) (Negative) 06/02/21 06/02/21 06/02/21 Range/Units 18:10 18:10 18:10 WBC (4.8-10.8) K/uL RBC (4.7-6.1) M/uL Hgb (14.0-18.0) g/dL Hct (42-52) % MCV (80-100) fL MCH (25-34) pg MCHC (32-36) g/dL RDW Std Deviation (36.4-46.3) fL RDW Coeff of Yoseph (11.5-14.5) % Plt Count (130-400) K/uL MPV (7.4-10.4) fL Immature Gran % (Auto) % Neut % (Auto) % Lymph % (Auto) % Spink % (Auto) % Eos % (Auto) % Baso % (Auto) % Neut # (Auto) (1.4-6.5) K/uL Lymph # (Auto) (1.2-3.4) K/uL Spink # (Auto) (0.11-0.59) K/uL Eos # (Auto) (0-0.5) K/uL Baso # (Auto) (0-0.2) K/uL Immature Gran # (Auto) (0.00-0.02) K/uL PT (9.0-12.0) Seconds INR (0.9-1.1) D-Dimer < 190 (0-500) ug/L FEU VBG pH 7.33 L (7.36-7.41) VBG pCO2 69 H (38-50) mmHg VBG pO2 46 mmHg VBG HCO3 35 mmol/L VBG O2 Saturation 79.1 % VBG Base Excess 6.6 mEq/L Barometric Pressure 728.2 mm/Hg Sodium (136-145) mmol/L Potassium (3.5-5.1) mmol/L Chloride (98-107) mmol/L Carbon Dioxide (21-32) mmol/L Anion Gap (3-11) BUN (7-18) mg/dl Creatinine (0.6-1.4) mg/dl Est Cr Clr Drug Dosing ml/min Est GFR ( Amer) ml/min Est GFR (Non-Af Amer) ml/min Fasting Glucose (70-99) mg/dl Lactate (0.4-2.0) mmol/L Calcium (8.5-10.1) mg/dl Magnesium 2.1 (1.8-2.4) mg/dl Troponin I < 0.015 (0-0.045) ng/ml C-Reactive Protein 2.98 H (0-0.29) mg/dl Procalcitonin (0-0.5) ng/ml Stl C. diff Tox B Gene (Neg) COVID-19 Eval Order SARS-CoV-2 (PCR) (Negative) 06/02/21 06/02/21 Range/Units 18:10 18:15 WBC (4.8-10.8) K/uL RBC (4.7-6.1) M/uL Hgb (14.0-18.0) g/dL Hct (42-52) % MCV (80-100) fL MCH (25-34) pg MCHC (32-36) g/dL RDW Std Deviation (36.4-46.3) fL RDW Coeff of Yoseph (11.5-14.5) % Plt Count (130-400) K/uL MPV (7.4-10.4) fL Immature Gran % (Auto) % Neut % (Auto) % Lymph % (Auto) % Spink % (Auto) % Eos % (Auto) % Baso % (Auto) % Neut # (Auto) (1.4-6.5) K/uL Lymph # (Auto) (1.2-3.4) K/uL Spink # (Auto) (0.11-0.59) K/uL Eos # (Auto) (0-0.5) K/uL Baso # (Auto) (0-0.2) K/uL Immature Gran # (Auto) (0.00-0.02) K/uL PT 10.4 (9.0-12.0) Seconds INR 1.0 (0.9-1.1) D-Dimer (0-500) ug/L FEU VBG pH (7.36-7.41) VBG pCO2 (38-50) mmHg VBG pO2 mmHg VBG HCO3 mmol/L VBG O2 Saturation % VBG Base Excess mEq/L Barometric Pressure mm/Hg Sodium (136-145) mmol/L Potassium (3.5-5.1) mmol/L Chloride (98-107) mmol/L Carbon Dioxide (21-32) mmol/L Anion Gap (3-11) BUN (7-18) mg/dl Creatinine (0.6-1.4) mg/dl Est Cr Clr Drug Dosing ml/min Est GFR ( Amer) ml/min Est GFR (Non-Af Amer) ml/min Fasting Glucose (70-99) mg/dl Lactate (0.4-2.0) mmol/L Calcium (8.5-10.1) mg/dl Magnesium (1.8-2.4) mg/dl Troponin I (0-0.045) ng/ml C-Reactive Protein (0-0.29) mg/dl Procalcitonin 0.16 (0-0.5) ng/ml Stl C. diff Tox B Gene (Neg) COVID-19 Eval Order SARS-CoV-2 (PCR) (Negative) Imaging Data Radiologist's Impression: Chest X-Ray 06/02/21 18:13 XR chest 1V portable HISTORY: +COVID, hypoxia COMPARISON: Chest 05/26/2021. FINDINGS: There are low lung volumes. No pneumothorax. No pleural effusions. The heart remains mildly enlarged. Suspect small hazy airspace opacities within the lung bases. Mild central pulmonary vascular congestion without overt edema. IMPRESSION: 1. There are small hazy airspace opacities within the lung bases likely representing a viral pneumonia. 2. Cardiomegaly with mild central pulmonary vascular congestion without overt edema. ACT 112: Negative or not required by law. Electronically signed by: Angel Boo M.D. 06/02/2021 7:00 PM ECG Data Additional Comments: EKG was obtained and reviewed by myself with mild sinus tachycardia at 102 BPM with RBBB, evidence for acute ischemic change, no significant change compared to study from 05/26/21. MDM Narrative Physical exam and history were performed. Nursing notes, EMR, and medication list were personally reviewed. Patient presents to the emergency department for evaluation of flulike symptoms including headache, nasal congestion with postnasal drip, generalized body aches, nausea, and diarrhea since waking up this morning. Of note, his and multiple caregivers have recently tested positive for Covid19 within the last week. He was tested for this 4 days ago, which was negative, however he states he has been around additional people with the diagnosis since then. The patient's had not been doing well with her diagnosis and called the ambulance to bring her to the emergency department for worsening respiratory symptoms. Upon their arrival, the patient requested that he was also brought in for further evaluation due to his symptoms as well. En route to the hospital, the patient was noted to be hypoxic at 89% on room air. His saturations did improve with placement of 2 L of O2 via NC. Using shared medical decision making with the patient and his at bedside, he agreed to be tested for Covid19. He also agreed for chest x-ray, EKG, and lab work including CBC, CMP, lactate, troponin I and VBG. Additionally, he was tested for C. difficile due to his acute development of diarrhea in his colostomy bag with chronic use of cefdinir (negative). Patient was given a dose of Tylenol which did help to mildly improve his symptoms. The patient's Covid19 test resulted positive. His chest x-ray was also obtained and reviewed by radiologist and myself as above which showed small hazy airspace opacities within the lung bases supporting this diagnosis. He was also noted to have Cardiomegaly with mild central pulmonary vascular congestion without overt edema. Concurrently, IV access was established, lab work was drawn and reviewed by myself as above. Of note, his white blood cell count dropped from 12.031 last week to 6.79 today. He did have an elevated APTT but D-dimer was less than 190. His VBG was indicative of respiratory acidosis with pH 7.33 and PCO2 elevated at 69. The patient does also appear to have an acute kidney injury with BUN 31 and Cr 1.61 (elevated from 20 and 1.30 last week). Additionally, CRP was elev ated at 2.98 indicating inflammatory process. Troponin was not elevated at <0.015. EKG was obtained and reviewed by myself with mild sinus tachycardia at 102 BPM with RBBB, evidence for acute ischemic change, no significant change compared to study from 05/26/21. I discussed the results of the above findings with my attending Dr. Riley, as well as the patient and his at his bedside. Due to his symptoms of hypoxia in the acute setting of Covid19, I recommend that the patient be admitted to the hospitalist service for ongoing management. Dexamethasone 6 mg IV was ordered STAT. The [facility] service was contacted and agreed to evaluate the patient. The patient and his verbalized their understanding and agreement with this treatment plan. The chart was completed utilizing [employer] Speech Voice Recognition Software. Grammatical errors, random word insertions, pronoun errors, and incomplete sentences are an occasional consequence of this system due to software limitati ons, ambient noise, and hardware issues. Any formal questions or concerns about the content, text, or information contained within the body of this dictation should be directly addressed to the provider for clarification. Impression & Plan COVID-19, Hypoxia, Flu-like symptoms Discharge Plan Visit Data Chief Complaint: Diarrhea ED Provider: Alistair Riley ED Midlevel Provider: Kiersten Cabrera Discharge Problem: COVID-19, Hypoxia, Flu-like symptoms Patient Disposition: Admitted As Inpatient Discharge Instructions Interventions: ED Discharge Assessment Last Done: 06/02/21 20:43
[2021-06-02 18:51] LABS: D Dimer < 190 ug/L FEU (0-500)
[2021-06-02 19:00] LABS: Creatinine Clr Calc Pharmacy 77.2 ml/min; Est GFR (African American) 52.7 ml/min; Est GFR (Non-African American) 45.5 ml/min; Potassium 4.1 mmol/L (3.5-5.1)
--- NOTE | 2021-06-02 19:02 | XRay Report ---
XR chest 1V portable HISTORY: +COVID, hypoxia COMPARISON: Chest 05/26/2021. FINDINGS: There are low lung volumes. No pneumothorax. No pleural effusions. The heart remains mildly enlarged. Suspect small hazy airspace opacities within the lung bases. Mild central pulmonary vascul ar congestion without overt edema. IMPRESSION: 1. There are small hazy airspace opacities within the lung bases likely representing a viral pneumoni a. 2. Cardiomegaly with mild central pulmonary vascular congestion without overt edema. ACT 112: Negative or not required by law. Electronically signed by: Angel Boo M.D. 06/02/2021 7:00 PM
[2021-06-02 19:35] LABS: C Reactive Protein 2.98 mg/dl (0-0.29); Magnesium 2.1 mg/dl (1.8-2.4); Troponin I < 0.015 ng/ml (0-0.045)
--- NOTE | 2021-06-02 19:43 | History & Physical Report ---
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 difficile ARF secondary to illness DM2--insulin-requiring, suboptimal control as of recent hemoglobin A1c of 7.9 last April 2021 history of DVT on anticoagulation, INR subtherapeutic chronic anemia, hemoglobin at baseline Medical telemetry Secondary to severe COVID-19 pneumonia Medical telemetry Supplemental O2 Decadron and Remdesivir for severe COVID-19 pneumonia. Remdesivir first dose now. Subsequent dosing depending on kidney function tomorrow a.m. (Patient was counseled regarding potential adverse effects from Remdesivir therapy and provided with patient education sheet.) Pulmonary consult if without improvement. Follow urine CS, Cefepime Stool C. difficile Monitor creatinine response to IVF, appropriate to hold home diuretic and ARB until creatinine back to baseline Basal insulin, ISS BG goal 1 10-1 40, carb count coverage Social service RE discharge planning (Patient may need temporary placement given 24-hour care requirement (patient's currently admitted for COVID-19 illness and caregivers unable to see patient at home with his COVID-19 affliction.) DVT prophylaxis IV Heparin/Coumadin bridge Rx Full code Patient's requesting updates providers. Ms. Rody Rodriguez, contact #[phone]. Text document was generated using giftee voice recognition software. It may contain grammatical or spelling errors. Kindly contact undersigned for clarification of any documentation item in question. History of Present Illness Primary Care Provider: Wilder Stanford MD History obtained from patient and records. 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 dif Last confinement November 2020 for metabolic encephalopathy secondary to multidrug- resistant Pseudomonas aeruginosa. Patient with frontal headache, sinus congestion, postnasal drip, body aches, nausea diarrhea symptoms for a few days. Dry cough symptoms without chest pain, S OB. Patient also with watery ostomy output without abdominal pain. found to be COVID-19 positive to date. Outpatient dependency case manager notified of temporary long-term care search until patient better as home health unable to provide care given patient 's COVID-19 illness. Patient completed COVID-19 vaccination. Patient brought to the ER along with for evaluation. O2 sats 80s on room air at 1 point. IV Decadron given at the ER. MEDICAL HISTORY: As above. SURGICAL HISTORY: Kidney stone procedures, suprapubic catheter placement, neck surgery, IVC filter placement, ostomy//bowel surgery FAMILY HISTORY: DM, prostate cancer PERSONAL SOCIAL HISTORY: Nonsmoker. No chronic intake of alcoholic beverages. On disability. Allergies Allergy/AdvReac Type Severity Reaction Status Date / Time codeine Allergy Severe THROAT Verified 06/02/21 20:28 SWELLS latex Allergy Intermediate welts Verified 06/02/21 20:28 piperacillin Allergy Intermediate RASH Verified 06/02/21 20:28 Sulfa (Sulfonamide Allergy Intermediate HIVES Verified 06/02/21 20:28 Antibiotics) tazobactam Allergy Intermediate RASH Verified 06/02/21 20:28 aztreonam Allergy Unknown unknown Verified 06/02/21 20:28 lactose AdvReac Intermediate GI symptoms Verified 06/02/21 20:28 metoclopramide [From Reglan] AdvReac Mild lethargy Verified 06/02/21 20:28 Home Medications Medication Instructions Recorded Confirmed Type allopurinol 100 mg tablet 100 mg PO BID 05/07/18 06/02/21 History ferrous gluconate 324 mg (38 mg 324 mg PO QAM 05/07/18 06/02/21 History iron) tablet furosemide 40 mg tablet 40 mg PO BID 05/07/18 06/02/21 History gabapentin 800 mg tablet 800 mg PO BID 05/07/18 06/02/21 History magnesium oxide 400 mg (241.3 mg 400 mg PO BID 05/07/18 06/02/21 History magnesium) tablet multivitamin 1 tab PO QAM 05/07/18 06/02/21 History pantoprazole 40 mg tablet,delayed 40 mg PO QAM 05/07/18 06/02/21 History release ropinirole 1 mg tablet 1 mg PO QID 05/07/18 06/02/21 History escitalopram oxalate 20 mg tablet 20 mg PO QAM tab 08/21/19 06/02/21 History insulin human U-100 NPH-regulr 56 unit SUBCUT BID 08/21/19 06/02/21 History 70-30 mix 100 unit/mL subcutaneous susp (Novolin 70/30 U-100 Insulin) warfarin 5 mg tablet 5 mg PO 3XWK tab 08/21/19 06/02/21 History atorvastatin 40 mg tablet 40 mg PO HS 08/24/19 06/02/21 History baclofen 10 mg tablet 10 mg PO QID 09/22/19 06/02/21 History cyclobenzaprine 10 mg tablet 15 mg PO HS 03/01/20 06/02/21 History hyoscyamine sulfate 0.125 mg tablet 0.125 mg PO QPM 03/01/20 06/02/21 History metformin 1,000 mg tablet 1,000 mg PO BIDM 03/01/20 06/02/21 History (Glucophage) potassium chloride 10 mEq 10 meq PO BIDM 03/01/20 06/02/21 History tablet,extended release spironolactone 25 mg tablet 25 mg PO QAM 03/01/20 06/02/21 History (Aldactone) tizanidine 4 mg tablet 4 mg PO BID 03/01/20 06/02/21 History Medical Marijuana See Rx Instructions .ROUTE .COMPLEX 03/26/20 06/02/21 History methenamine hippurate 1 gram tablet 1 g PO BID 30 Days #60 tab 04/02/20 06/02/21 Rx ascorbic acid (vitamin C) 500 mg 250 mg PO TID 12/03/20 06/02/21 History tablet (Vitamin C) cefdinir 300 mg capsule 300 mg PO BID 12/03/20 06/02/21 History famotidine 20 mg tablet (Acid 20 mg PO BID 12/03/20 06/02/21 History Training Systems Officer (famotidine)) zinc sulfate 50 mg zinc (220 mg) 50 mg PO QDL 12/03/20 06/02/21 History capsule Lactobacillus acidoph-L.bulgaricus 1 tab PO BID 01/03/21 06/02/21 History 1 million cell tablet (Floranex) acetaminophen 500 mg capsule 1,000 mg PO Q6H PRN 01/03/21 06/02/21 History bethanechol chloride 5 mg tablet 5 mg PO TID 01/03/21 06/02/21 History insulin regular human 100 unit/mL 1 sliding scale dose SUBCUT 01/03/21 06/02/21 History injection solution (Novolin R USEASDIRECTD Regular U-100 Insulin) mecobalamin-levomefolate 1 tab PO BID 01/03/21 06/02/21 History calcium-pyridoxal phos 3 mg-35 mg-2 mg tablet ([id number]) menthol 0.44 %-zinc oxide 20.6 % 1 applic TOPICAL QID PRN 01/03/21 06/02/21 History topical ointment (Calmoseptine) methenamin 81.6 mg-hyoscyam 0.12 1 tab PO QPM 01/03/21 06/02/21 History mg-methblue 10.8 dz-[id number] tablet nystatin 100,000 unit/gram topical 1 applic TOPICAL BID PRN 01/03/21 06/02/21 History powder nystatin-triamcinolone 100,000 1 applic TOPICAL BID 01/03/21 06/02/21 History unit/g-0.1 % topical cream triamcinolone acetonide 0.1 % 1 applic TOPICAL BID PRN 01/03/21 06/02/21 History topical cream irbesartan 75 mg tablet 75 mg PO DAILY 06/02/21 06/02/21 History warfarin 7.5 mg tablet 7.5 mg PO 4XWK 06/02/21 06/02/21 History Past Med/Surg History Medical History Asymptomatic bacteriuria Clostridium difficile infection (Unknown) CVA (cerebral vascular accident) DM type 2 (diabetes mellitus, type 2) Dyslipidemia Dysphagia Fever History of blood clots History of DVT (deep vein thrombosis) Hypertension Hypotension Ileus Kidney disease Leukocytosis Major depressive disorder, recurrent Obesity Occluded PICC line Positive urine culture Quadriplegia BRAIN INJURY 11 YRS AGO Seizure SIRS (systemic inflammatory response syndrome) Sleep apnea (Unknown) OXYGEN 2L/MIN NC HS Syncope 57 year old with know quadriplegia and new onset syncope with change in position UTI (urinary tract infection) RECENT [facility] ADMISION-D/C 12/06/20 Surgical History History of colonoscopy 2010 History of open reduction and internal fixation (ORIF) procedure LEFT FEMUR Insertion of inferior vena caval filter (Unknown) Lithotripsy (Unknown) "laser lithotripsy left ureteral stone 03/17/11 " S/P knee surgery S/P tonsillectomy Suprapubic cystostomy (Unknown) IN PLACE Family History Mother No pertinent family history Family history of diabetes mellitus Father Family hx of colon cancer Social History Smoking Status: Never smoker Second Hand Exposure: Yes (FATHER SMOKED); Hx Alcohol Use: No Hx Substance Use: No Preferred Language: Bengali Communication Ability: Effective Visual Impairment: No Limitations Slab Inspector Required: No Beliefs That Will Affect Care: None marital status: Current Living Situation: Spouse current occupational status: disabled Feels Safe at Home: Yes Physical Activity Frequency Comment: QUADRAPLEGIA C4-5-ABLE TO MOVE ARMS, HANDS Assistive Devices: Wheelchair Review of Systems Review of Systems: As per HPI, all 10 systems reviewed, all other ROS negative Physical Exam Physical Exam: GENERAL: Comfortable, pleasant, morbidly obese, no respiratory distress SKIN: Pallor, warm HEENT: Pale palpebral conjunctivae, no ptosis, dry buccal mucosa, nasal cannula in place NECK : Supple, short neck, no tenderness CHEST : Decreased breath sounds, no tenderness HEART : Tachycardic, no obvious murmurs ABDOMEN: distention, nontender, ostomy noted EXTREMITIES : Minimal LE swelling left greater than the right, no LE tenderness, no other conspicuous deformities noted NEUROLOGIC : Coherent, no facial asymmetry, quadriplegia Results & Data Results & Data ([facility]) Vital Signs (Past 12 Hours) Vital Signs Temp Pulse Pulse Resp BP BP Pulse Ox 06/02/21 19:00 37 C 95 H 18 133/71 96 06/02/21 18:00 20 88 L 06/02/21 17:07 37.2 C 101 H 18 95 06/02/21 15:58 37.2 C 101 H 20 133/71 92 Laboratory Results Laboratory Results WBC 6.79 K/uL (4.8-10.8) 06/02/21 18:10 RBC 4.04 M/uL (4.7-6.1) L 06/02/21 18:10 Hgb 11.8 g/dL (14.0-18.0) L 06/02/21 18:10 Hct 38.0 % (42-52) L 06/02/21 18:10 MCV 94.1 fL (80-100) 06/02/21 18:10 MCH 29.2 pg (25-34) 06/02/21 18:10 MCHC 31.1 g/dL (32-36) L 06/02/21 18:10 RDW Std Deviation 58.5 fL (36.4-46.3) H 06/02/21 18:10 RDW Coeff of Yoseph 16.9 % (11.5-14.5) H 06/02/21 18:10 Plt Count 216 K/uL (130-400) 06/02/21 18:10 MPV 9.0 fL (7.4-10.4) 06/02/21 18:10 Immature Gran % (Auto) 0.3 % 06/02/21 18:10 Neut % (Auto) 66.5 % 06/02/21 18:10 Lymph % (Auto) 20.5 % 06/02/21 18:10 Hernando % (Auto) 10.8 % 06/02/21 18:10 Eos % (Auto) 1.8 % 06/02/21 18:10 Baso % (Auto) 0.1 % 06/02/21 18:10 Neut # (Auto) 4.52 K/uL (1.4-6.5) 06/02/21 18:10 Lymph # (Auto) 1.39 K/uL (1.2-3.4) 06/02/21 18:10 Hernando # (Auto) 0.73 K/uL (0.11-0.59) H 06/02/21 18:10 Eos # (Auto) 0.12 K/uL (0-0.5) 06/02/21 18:10 Baso # (Auto) 0.01 K/uL (0-0.2) 06/02/21 18:10 Immature Gran # (Auto) 0.02 K/uL (0.00-0.02) 06/02/21 18:10 D-Dimer < 190 ug/L FEU (0-500) 06/02/21 18:10 VBG pH 7.33 (7.36-7.41) L 06/02/21 18:10 VBG pCO2 69 mmHg (38-50) H 06/02/21 18:10 VBG pO2 46 mmHg 06/02/21 18:10 VBG HCO3 35 mmol/L 06/02/21 18:10 VBG O2 Saturation 79.1 % 06/02/21 18:10 VBG Base Excess 6.6 mEq/L 06/02/21 18:10 Barometric Pressure 728.2 mm/Hg 06/02/21 18:10 Sodium 136 mmol/L (136-145) 06/02/21 18:10 Potassium 4.1 mmol/L (3.5-5.1) 06/02/21 18:10 Chloride 98 mmol/L (98-107) 06/02/21 18:10 Carbon Dioxide 34 mmol/L (21-32) H 06/02/21 18:10 Anion Gap 4.0 (3-11) 06/02/21 18:10 BUN 31 mg/dl (7-18) H 06/02/21 18:10 Creatinine 1.61 mg/dl (0.6-1.4) H 06/02/21 18:10 Est Cr Clr Drug Dosing 77.2 ml/min 06/02/21 18:10 Est GFR ( Amer) 52.7 ml/min 06/02/21 18:10 Est GFR (Non-Af Amer) 45.5 ml/min 06/02/21 18:10 Fasting Glucose 112 mg/dl (70-99) H 06/02/21 18:10 Lactate 1.2 mmol/L (0.4-2.0) 06/02/21 18:10 Calcium 9.0 mg/dl (8.5-10.1) 06/02/21 18:10 Magnesium 2.1 mg/dl (1.8-2.4) 06/02/21 18:10 Troponin I < 0.015 ng/ml (0-0.045) 06/02/21 18:10 C-Reactive Protein 2.98 mg/dl (0-0.29) H 06/02/21 18:10 Procalcitonin 0.16 ng/ml (0-0.5) 06/02/21 18:10 COVID-19 Eval Order Covid19 at [facility] 06/02/21 16:30 SARS-CoV-2 (PCR) POSITIVE (Negative) A* 06/02/21 16:30 Impressions Chest X-Ray 06/02/21 18:13 XR chest 1V portable HISTORY: +COVID, hypoxia COMPARISON: Chest 05/26/2021. FINDINGS: There are low lung volumes. No pneumothorax. No pleural effusions. The heart remains mildly enlarged. Suspect small hazy airspace opacities within the lung bases. Mild central pulmonary vascular congestion without overt edema. IMPRESSION: 1. There are small hazy airspace opacities within the lung bases likely representing a viral pneumonia. 2. Cardiomegaly with mild central pulmonary vascular congestion without overt edema. ACT 112: Negative or not required by law. Electronically signed by: Angel Boo M.D. 06/02/2021 7:00 PM Diagnostic Findings EKG as per my interpretation rate 105, sinus tachycardia, normal axis, RBBB, T wave abnormalities inferior leads
[2021-06-02] MEDS ORDERED: LEVALBUTEROL TARTRATE 15 GM HFA.AER.AD INH STA (19:51)
[2021-06-02] MEDS ORDERED: REMDESIVIR 200 MG in SODIUM CHLORIDE 0.9% 210 ML IV STA (19:51)
[2021-06-02 20:28] LABS: Appearance Urine Clear (Clear); Bacteria Urine Automated 1+ (Negative); Bilirubin Urine Negative (Negative); Blood Urine 2+ (Negative); Color Urine Yellow; Glucose Urine UA Negative (Negative); Ketones Urine Negative (Negative); Leukocyte Esterase Urine 1+ (Negative); Nitrite Urine Positive (Negative); Protein Urine Trace (Negative); Specific Gravity Urine 1.014 (1.000-1.030); Urobilinogen Urine Negative (Negative); WBC Urine Automated >30 /hpf (0-5); pH Urine 5.5 (4.5-7.5)
[2021-06-02 20:55] LABS: Prothrombin Time 10.4 Seconds (9.0-12.0)
[2021-06-02] MEDS ORDERED: Heparin IV Adult Wt-Based Standard *NO* Bolus Protocol IV SCH (21:13)
[2021-06-02] MEDS ORDERED: GLUCAGON FOR INJ 1 MG VIAL SQ PRN (21:51)
[2021-06-02] MEDS ORDERED: GLUCOSE 40% GEL 15 GM TUBE PO PRN (21:51)
[2021-06-02] MEDS ORDERED: GLUCOSE 10 TABS/TUBE PO PRN (21:51)
[2021-06-02] MEDS ORDERED: DEXTROSE 50% 50 ML SYRINGE IV PRN (21:51)
[2021-06-02] MEDS ORDERED: CARBOHYDRATES FOR HYPOGLYCEMIA PO PRN (21:51)
[2021-06-02] MEDS ORDERED: LEVALBUTEROL TARTRATE 15 GM HFA.AER.AD INH PRN (21:51)
[2021-06-02 22:09] LABS: Partial Thromboplastin Ratio 1.7; Partial Thromboplastin Time 44.1 Seconds (21.0-31.0)
[2021-06-02] MEDS: HEPARIN SODIUM/DEXTROSE 25,000 UNITS/500 ML BAG IV SCH (22:48)
[2021-06-02] MEDS: GABAPENTIN 400 MG CAP PO SCH (23:02)
[2021-06-02] MEDS: tiZANidine HCL 4 MG TABLET PO SCH (23:03)
[2021-06-02] MEDS: INSULIN GLARGINE SOLOSTAR 100 UNITS/ML 3 ML PEN SC SCH (23:34)
[2021-06-02] MEDS: INSULIN ASPART 100 UNITS/ML 3 ML PEN SC SCH (23:34)
[2021-06-03] MEDS: ALBUMIN 25% 12.5 GM/50 ML VIAL IV SCH ×2 (00:15→00:49)
[2021-06-03] MEDS: SODIUM CHLORIDE 0.9% 10ML FLUSH IV SCH ×2 (00:16→19:31)
[2021-06-03] MEDS ORDERED: WARFARIN SOD 7.5 MG TAB PO ONE (01:00)
[2021-06-03] MEDS ORDERED: amLODIPine BESYLATE 5 MG TAB PO ONE (01:00)
[2021-06-03] MEDS ORDERED: CEFEPIME CONSULT ACTIVE PRN (03:53)
[2021-06-03] MEDS ORDERED: CEFEPIME 2,000 MG/20 ML VIAL IV ONE (04:15)
[2021-06-03 07:15] LABS: Basophils # (auto) 0.01 K/uL (0-0.2); Basophils % (auto) 0.2 %; Hematocrit (blood only) 36.9 % (42-52); Hemoglobin 11.3 g/dL (14.0-18.0); Immature Granulocytes # (auto) 0.01 K/uL (0.00-0.02); Immature Granulocytes % (auto) 0.2 %; Lymphocytes # (auto) 1.07 K/uL (1.2-3.4); Lymphocytes % (auto) 21.3 %; Mean Corpuscular Hemoglobin 28.7 pg (25-34); Mean Corpuscular Hgb Conc 30.6 g/dL (32-36); Mean Corpuscular Volume 93.7 fL (80-100); Mean Platelet Volume 9.4 fL (7.4-10.4); Monocytes # (auto) 0.29 K/uL (0.11-0.59); Monocytes % (auto) 5.8 %; Neutrophils # (auto) 3.65 K/uL (1.4-6.5); Neutrophils % (auto) 72.5 %; Platelet Count 225 K/uL (130-400); RDW Coefficient of Variation 16.5 % (11.5-14.5); RDW Standard Deviation 56.8 fL (36.4-46.3); Red Blood Count 3.94 M/uL (4.7-6.1); White Blood Count 5.03 K/uL (4.8-10.8)
[2021-06-03 07:40] LABS: BUN Creatinine Ratio 20.2 (10-20); Calcium 8.8 mg/dl (8.5-10.1); Creatinine Clr Calc Pharmacy 96.3 ml/min; Est GFR (African American) 68.9 ml/min; Est GFR (Non-African American) 59.4 ml/min; Potassium 4.3 mmol/L (3.5-5.1)
[2021-06-03] MEDS: rOPINIRole HCL 1 MG TABLET PO SCH ×4 (08:13→21:01)
[2021-06-03] MEDS: MULTIVITAMIN TAB PO SCH (08:13)
[2021-06-03] MEDS: ESCITALOPRAM OXALATE 20 MG TAB PO SCH (08:14)
[2021-06-03] MEDS: GABAPENTIN 400 MG CAP PO SCH ×2 (08:14→21:00)
[2021-06-03] MEDS: LACTOBACILLUS ACIDOPHILUS 1 GM PACK PO SCH ×2 (08:14→21:02)
[2021-06-03] MEDS: BACLOFEN 10 MG TAB PO SCH ×4 (08:14→20:59)
[2021-06-03] MEDS: FAMOTIDINE 20 MG TAB PO SCH ×2 (08:14→21:00)
[2021-06-03] MEDS: tiZANidine HCL 4 MG TABLET PO SCH ×2 (08:15→21:01)
[2021-06-03] MEDS: MEDICAL MARIJUANA PO SCH ×2 (08:15→21:11)
[2021-06-03] MEDS: dexAMETHasone 6 MG in SYRINGE 0 ML IV SCH (09:27)
[2021-06-03] MEDS: PANTOprazole 40 MG TAB PO SCH (09:27)
[2021-06-03 09:44] LABS: INR 1.7 (0.9-1.1); Partial Thromboplastin Ratio 5.1; Prothrombin Time 16.9 Seconds (9.0-12.0)
[2021-06-03] MEDS: INSULIN ASPART 100 UNITS/ML 3 ML PEN SC SCH ×4 (10:11→20:50)
[2021-06-03] MEDS: INSULIN GLARGINE SOLOSTAR 100 UNITS/ML 3 ML PEN SC SCH ×2 (10:12→20:51)
[2021-06-03] MEDS: HEPARIN SODIUM/DEXTROSE 25,000 UNITS/500 ML BAG IV SCH ×2 (13:17→22:32)
[2021-06-03] MEDS: CEFEPIME 2,000 MG in SYRINGE 0 ML IV SCH ×2 (13:17→19:29)
[2021-06-03] MEDS ORDERED: WARFARIN SOD 7.5 MG TAB PO SCH (16:00)
--- NOTE | 2021-06-03 18:06 | Hospitalist Progress Note ---
Date of Service June 03, 2021 Assessment & Plan (1) Acute hypoxemic respiratory failure: Plan: COVID-19 pneumonia Present on admission with SOB, diarrhea and body aches Testing positive with COVID 19 CXR showed small hazy airspace opacities within the lung bases likely representing a viral pneumonia. Received Dexamethasone 6mg IV Remdesivir IV started on admission Continue Remdesivir and Decadron Will monitor liver enzymes while on Remdesivir` Will check Inflammatory marker such as ESR, CRP, Ferritin and procalcitonin Pt was advised to prone Continue oxygen supplement incentive spirometry Recurrent UTI Urine cx grew gram negative bacilli Continue IV cefepime Will follow urine sensitivity Diarrhea Mostly due to COVID 19 Stool negative for Cdiff diarrhea improves Diabetes Most recent hab1c 7.9 on 04/26 Continue insulin Monitor BS whie on IV steroid ROBERT on CKD Creatinine on admission 1.6 Lasix on hod Creatinine improves to 1.2 Continue monitor BMP hHx neurogenic bladder Partial quadriplegia secondary to traumatic cervical spinal cord injury Stable Hx DVT On coumadin with INR 1.6 Continue IV heparin drip starting on admission until INR at goal hypertension, BP on the lower side Diarrhea rule out C. difficile ARF secondary to illness DM2--insulin-requiring, suboptimal control as of recent hemoglobin A1c of 7.9 last April 2021 history of DVT on anticoagulation, INR subtherapeutic chronic anemia, hemoglobin at baseline Medical telemetry Secondary to severe COVID-19 pneumonia DVT prophylaxis IV Heparin/Coumadin bridge Rx Full code Patient's requesting updates providers. Ms. Rody Rodriguez, contact #[phone]. Admission and Anticipated Discharge Date Admission Date: June 02, 2021 Subjective Patient was seen and evaluated for follow-up of shortness of breath, diarrhea and body aches due to Covid 19 Lying in bed with no acute distress Patient said is breathing is slightly better He said that is having sore throat Denies any chest pain, palpitation, dizziness, fever Review of Systems Review of Systems: All systems reviewed & are unremarkable except as noted in Subjective Physical Exam Physical Exam: General- No acute distress Head- atraumatic Eyes- PERRL, EOMI, ENT- oropharynx clear Neck- supple, no JVD Lungs- clear to auscultation Heart- regular rhythm; no murmur Abdomen- normal bowel sounds, nontender, +ostomy Extremities- no calf tenderness Neuro- alert, oriented x 3; PERRL, EOMI; no facial palsy; no dysarthria Skin- warm & dry Results & Data Results & [facility] ([facility]) Vital Signs (Past 12 Hours) Vital Signs Temp Pulse Pulse Resp BP Pulse Ox 06/03/21 15:44 37.0 C 97 H 20 120/52 L 97 06/03/21 12:08 36.8 C 79 18 106/52 L 98 06/03/21 08:01 36.9 C 90 20 151/77 H 100 06/03/21 07:30 84
[2021-06-03 19:04] LABS: Partial Thromboplastin Ratio 2.9
[2021-06-03 19:09] LABS: Partial Thromboplastin Time 75.2 Seconds (21.0-31.0)
[2021-06-03] MEDS: amLODIPine BESYLATE 5 MG TAB PO SCH (20:57)
[2021-06-03] MEDS: ATORVASTATIN 40 MG TAB PO SCH (20:58)
[2021-06-03] MEDS ORDERED: FLEXERIL HOME PACK 10 MG VIAL PO SCH (21:00)
[2021-06-04] MEDS: REMDESIVIR 100 MG in SODIUM CHLORIDE 0.9% 230 ML IV SCH ×2 (00:19→20:49)
[2021-06-04] MEDS ORDERED: CHLORASEPTIC 1.4% SOLN 180 ML BTL MT PRN (01:04)
[2021-06-04] MEDS: SODIUM CHLORIDE 0.9% 10ML FLUSH IV SCH ×3 (01:26→22:12)
[2021-06-04 02:35] LABS: Partial Thromboplastin Ratio 2.9
[2021-06-04 03:08] LABS: Partial Thromboplastin Time 76.3 Seconds (21.0-31.0)
[2021-06-04] MEDS: CEFEPIME 2,000 MG in SYRINGE 0 ML IV SCH ×3 (03:24→20:49)
[2021-06-04] MEDS: HEPARIN SODIUM/DEXTROSE 25,000 UNITS/500 ML BAG IV SCH ×3 (04:20→23:36)
--- NOTE | 2021-06-04 06:19 | Electrocardiogram Report ---
Test Reason : Blood Pressure : / mmHG Vent. Rate : 102 BPM Atrial Rate : 102 BPM P-R Int : 178 ms QRS Dur : 140 ms QT Int : 386 ms P-R-T Axes : 068 008 -08 degrees QTc Int : 503 ms Sinus tachycardia Right bundle branch block Abnormal ECG When compared with ECG of 26-MAY-2021 12:06, No significant change was found Confirmed by Kavon Nieto ([id number]) on 06/04/2021 6:19:28 AM Referred By: REFERRED SELF Confirmed By:Kavon Nieto
[2021-06-04] MEDS: ACETAMINOPHEN 325 MG TAB PO PRN (06:32)
[2021-06-04 07:11] LABS: Albumin Globulin Ratio 0.5 (0.9-2); Albumin Level 2.7 gm/dl (3.4-5.0); BUN Creatinine Ratio 19.3 (10-20); Bilirubin,Total 0.5 mg/dl (0.2-1); Calcium 8.7 mg/dl (8.5-10.1); Creatinine Clr Calc Pharmacy 99.5 ml/min; Est GFR (African American) 73.7 ml/min; Est GFR (Non-African American) 63.6 ml/min; Potassium 3.9 mmol/L (3.5-5.1); Total Protein 7.7 gm/dl (6.4-8.2)
[2021-06-04 07:18] LABS: C Reactive Protein 1.6 mg/dl (0-0.29); Ferritin 89.3 ng/ml (8-388)
[2021-06-04] MEDS: INSULIN ASPART 100 UNITS/ML 3 ML PEN SC SCH ×4 (09:27→23:12)
[2021-06-04] MEDS: BACLOFEN 10 MG TAB PO SCH ×4 (09:28→23:18)
[2021-06-04] MEDS: MULTIVITAMIN TAB PO SCH (09:29)
[2021-06-04] MEDS: GABAPENTIN 400 MG CAP PO SCH ×2 (09:29→23:17)
[2021-06-04] MEDS: rOPINIRole HCL 1 MG TABLET PO SCH ×4 (09:29→23:16)
[2021-06-04] MEDS: FAMOTIDINE 20 MG TAB PO SCH ×2 (09:29→23:17)
[2021-06-04] MEDS: dexAMETHasone 6 MG in SYRINGE 0 ML IV SCH (09:29)
[2021-06-04] MEDS: tiZANidine HCL 4 MG TABLET PO SCH ×2 (09:29→23:16)
[2021-06-04] MEDS: ESCITALOPRAM OXALATE 20 MG TAB PO SCH (09:29)
[2021-06-04] MEDS: LACTOBACILLUS ACIDOPHILUS 1 GM PACK PO SCH ×2 (09:29→23:16)
[2021-06-04] MEDS: PANTOprazole 40 MG TAB PO SCH (09:29)
[2021-06-04] MEDS: INSULIN GLARGINE SOLOSTAR 100 UNITS/ML 3 ML PEN SC SCH (09:30)
[2021-06-04] MEDS: MEDICAL MARIJUANA PO SCH ×2 (09:40→23:29)
[2021-06-04 10:25] LABS: INR 1.9 (0.9-1.1); Partial Thromboplastin Ratio 2.7; Prothrombin Time 18.3 Seconds (9.0-12.0)
[2021-06-04 10:51] LABS: Partial Thromboplastin Time 71.7 Seconds (21.0-31.0)
--- NOTE | 2021-06-04 13:01 | Hospitalist Progress Note ---
Date of Service June 04, 2021 Assessment & Plan (1) Acute hypoxemic respiratory failure: Plan: COVID-19 pneumonia Present on admission with SOB, diarrhea and body aches Testing positive with COVID 19 CXR showed small hazy airspace opacities within the lung bases likely representing a viral pneumonia. Continue dexamethasone and remdesivir. Will monitor liver enzymes while on Remdesivir` Monitor inflammatory marker such as ESR, CRP, Ferritin and procalcitonin Educated on self proning Continue oxygen supplement and wound oxygen as tolerated Incentive spirometry Recurrent UTI Urine cx grew pseudomonas Continue IV cefepime Diarrhea Mostly due to COVID 19 Stool negative for Cdiff Improved Diabetes Most recent hab1c 7.9 on 04/26 Continue insulin Monitor BS whie on IV steroid ROBERT on CKD Creatinine on admission 1.6 Creatinine improves to 1.2 today Takes lasix 40mg po bid at home. Will give IV lasix 40mg today and monitor Continue monitor BMP Hx neurogenic bladder Partial quadriplegia secondary to traumatic cervical spinal cord injury Stable Hx DVT On coumadin with INR 1.9 today Per Anticoagulation clinic note on 05/29, was on 7.5mg on MWF and 5mg other days Continue IV heparin drip starting on admission until INR at goal DVT prophylaxis IV Heparin/Coumadin bridge Rx Full code Patient's requesting updates providers. Cb Rody Jennifer, contact #[phone]. Admission and Anticipated Discharge Date Admission Date: June 02, 2021 Subjective 60-year-old man with history of traumatic cervical spine and cord injury, hypertension, DM2, recurrent UTI, neurogenic bladder who presented to the hospital with headache, congestion. Being managed for COVID 19 pneumonia Patient seen and examined this morning. Complains of headache and weakness. Reports some improvement in congestion Review of Systems Eyes: no worsening vision Ear, Nose, Mouth, Throat: Sore throat improving Respiratory: No cough at this time. No shortness of breath Cardiovascular: no chest pain and no dyspnea Gastrointestinal: no abdominal pain, no nausea and no vomiting Musculoskeletal: Reports quadriplegia Neurologic: + paralysis (In LE) and + headache(s); no dizziness and no confusion Psychiatric: no depression and no anxiety Physical Exam Constitutional: Morbid obese Eyes: PERRL, conjunctivae normal, anicteric sclerae ENMT: external ear and nose normal, oropharynx normal Respiratory: On 3l/min nasal oxygen Reduced breath sounds. No crackles Cardiovascular: RRR, S1-S2 Gastrointestinal (Abdomen): normal bowel sounds, soft, nontender, no hepatosplenomegaly Neurologic: AO x3, power is 3+/5 in upper extremities and 0/5 in lower extremities Psychiatric: A+Ox3, euthymic affect Results & Data Results & Data ([facility]) Vital Signs (Past 12 Hours) Vital Signs Temp Pulse Pulse Resp BP BP Pulse Ox 06/04/21 12:24 36.8 C 70 18 152/71 H 93 06/04/21 08:12 36.6 C 80 20 97 06/04/21 07:40 128/64 06/04/21 05:33 74 06/04/21 04:33 36.9 C 73 20 119/56 L 97 Laboratory Results Abnormal lab results 06/03/21 06/03/21 06/03/21 Range/Units 16:45 18:24 20:49 ESR (0-20) mm/hr PT (9.0-12.0) Seconds INR (0.9-1.1) APTT 75.2 H* (21.0-31.0) Seconds Sodium (136-145) mmol/L Anion Gap (3-11) BUN (7-18) mg/dl Glucose (70-99) mg/dl POC Glucose 250 H 243 H (70-99) mg/dl C-Reactive Protein (0-0.29) mg/dl Albumin (3.4-5.0) gm/dl Globulin (2.5-4.0) gm/dl Albumin/Globulin Ratio (0.9-2) 06/04/21 06/04/21 06/04/21 Range/Units 01:53 06:23 06:23 ESR 121 H (0-20) mm/hr PT (9.0-12.0) Seconds INR (0.9-1.1) APTT 76.3 H* (21.0-31.0) Seconds Sodium 132 L (136-145) mmol/L Anion Gap 2.0 L (3-11) BUN 24 H (7-18) mg/dl Glucose 186 H (70-99) mg/dl POC Glucose (70-99) mg/dl C-Reactive Protein 1.60 H (0-0.29) mg/dl Albumin 2.7 L (3.4-5.0) gm/dl Globulin 5.0 H (2.5-4.0) gm/dl Albumin/Globulin Ratio 0.5 L (0.9-2) 06/04/21 06/04/21 06/04/21 Range/Units 07:36 09:43 12:08 ESR (0-20) mm/hr PT 18.3 H (9.0-12.0) Seconds INR 1.9 H (0.9-1.1) APTT 71.7 H* (21.0-31.0) Seconds Sodium (136-145) mmol/L Anion Gap (3-11) BUN (7-18) mg/dl Glucose (70-99) mg/dl POC Glucose 165 H 311 H* (70-99) mg/dl C-Reactive Protein (0-0.29) mg/dl Albumin (3.4-5.0) gm/dl Globulin (2.5-4.0) gm/dl Albumin/Globulin Ratio (0.9-2) 06/04/21 Range/Units 12:10 ESR (0-20) mm/hr PT (9.0-12.0) Seconds INR (0.9-1.1) APTT (21.0-31.0) Seconds Sodium (136-145) mmol/L Anion Gap (3-11) BUN (7-18) mg/dl Glucose (70-99) mg/dl POC Glucose 294 H (70-99) mg/dl C-Reactive Protein (0-0.29) mg/dl Albumin (3.4-5.0) gm/dl Globulin (2.5-4.0) gm/dl Albumin/Globulin Ratio (0.9-2)
[2021-06-04] MEDS ORDERED: FUROSEMIDE 40 MG in SYRINGE 0 ML IV ONE (15:02)
[2021-06-04] MEDS ORDERED: FUROSEMIDE 40 MG/4 ML VIAL IV ONE (15:15)
[2021-06-04] MEDS ORDERED: WARFARIN SOD 7.5 MG TAB PO SCH (16:00)
[2021-06-04] MEDS ORDERED: INSULIN ASPART 100 UNITS/ML 3 ML PEN SC SCH (16:30)
[2021-06-04] MEDS ORDERED: PHARMACY GLYCEMIC MGMT CONSULT PRN (16:42)
[2021-06-04] MEDS ORDERED: INSULIN HUMAN REGULAR PER UNIT 10 UNITS in SYRINGE 9.9 ML IV STA (16:59)
[2021-06-04] MEDS ORDERED: INSULIN GLARGINE SOLOSTAR 100 UNITS/ML 3 ML PEN SC STA (17:03)
[2021-06-04] MEDS: POTASSIUM CHLORIDE / WTR 10 MEQ/100 ML PLCT IV SCH ×2 (18:13→21:30)
[2021-06-04 19:02] LABS: Partial Thromboplastin Time 53.2 Seconds (21.0-31.0)
[2021-06-04] MEDS ORDERED: INSULIN GLARGINE SOLOSTAR 100 UNITS/ML 3 ML PEN SC SCH (21:00)
[2021-06-04] MEDS ORDERED: POTASSIUM CHLORIDE CRTAB 20 MEQ TABCR PO STA (21:34)
[2021-06-04] MEDS: ATORVASTATIN 40 MG TAB PO SCH (23:18)
[2021-06-04] MEDS: amLODIPine BESYLATE 5 MG TAB PO SCH (23:18)
[2021-06-05] MEDS: INSULIN ASPART 100 UNITS/ML 3 ML PEN SC SCH ×6 (01:08→21:39)
[2021-06-05] MEDS: POTASSIUM CHLORIDE / WTR 10 MEQ/100 ML PLCT IV SCH ×2 (01:43→01:44)
[2021-06-05] MEDS: CEFEPIME 2,000 MG in SYRINGE 0 ML IV SCH ×3 (04:37→21:33)
[2021-06-05 05:51] LABS: Hematocrit (blood only) 35.3 % (42-52); Hemoglobin 11.4 g/dL (14.0-18.0); Mean Corpuscular Hemoglobin 28.9 pg (25-34); Mean Corpuscular Hgb Conc 32.3 g/dL (32-36); Mean Corpuscular Volume 89.6 fL (80-100); Mean Platelet Volume 9.1 fL (7.4-10.4); Platelet Count 207 K/uL (130-400); RDW Coefficient of Variation 16.2 % (11.5-14.5); RDW Standard Deviation 53.4 fL (36.4-46.3); Red Blood Count 3.94 M/uL (4.7-6.1); White Blood Count 7.13 K/uL (4.8-10.8)
[2021-06-05 06:19] LABS: Albumin Level 2.9 gm/dl (3.4-5.0); BUN Creatinine Ratio 20.6 (10-20); Calcium 8.9 mg/dl (8.5-10.1); Creatinine Clr Calc Pharmacy 100.3 ml/min; Est GFR (African American) 74.4 ml/min; Est GFR (Non-African American) 64.2 ml/min; Potassium 4.2 mmol/L (3.5-5.1)
[2021-06-05 06:22] LABS: Albumin Globulin Ratio 0.6 (0.9-2); Bilirubin,Total 0.3 mg/dl (0.2-1); C Reactive Protein 0.94 mg/dl (0-0.29); Globulin 5.1 gm/dl (2.5-4.0)
[2021-06-05 06:40] LABS: D Dimer < 190 ug/L FEU (0-500); INR 1.9 (0.9-1.1); Partial Thromboplastin Ratio 2.3; Prothrombin Time 17.9 Seconds (9.0-12.0)
[2021-06-05 06:47] LABS: Partial Thromboplastin Time 61.8 Seconds (21.0-31.0)
[2021-06-05 07:07] LABS: Estimated Average Glucose 194 mg/dl; Hemoglobin A1C 8.4 % (4.5-5.6)
[2021-06-05] MEDS: INSULIN GLARGINE SOLOSTAR 100 UNITS/ML 3 ML PEN SC SCH ×2 (09:09→21:38)
[2021-06-05] MEDS: dexAMETHasone 6 MG in SYRINGE 0 ML IV SCH (09:59)
[2021-06-05] MEDS: rOPINIRole HCL 1 MG TABLET PO SCH ×4 (09:59→21:33)
[2021-06-05] MEDS: GABAPENTIN 400 MG CAP PO SCH ×2 (09:59→21:33)
[2021-06-05] MEDS: FAMOTIDINE 20 MG TAB PO SCH ×2 (09:59→21:35)
[2021-06-05] MEDS: LACTOBACILLUS ACIDOPHILUS 1 GM PACK PO SCH ×2 (09:59→21:34)
[2021-06-05] MEDS: BACLOFEN 10 MG TAB PO SCH ×4 (10:00→21:32)
[2021-06-05] MEDS: PANTOprazole 40 MG TAB PO SCH (10:00)
[2021-06-05] MEDS: tiZANidine HCL 4 MG TABLET PO SCH ×2 (10:00→21:34)
[2021-06-05] MEDS: MULTIVITAMIN TAB PO SCH (10:00)
[2021-06-05] MEDS: MEDICAL MARIJUANA PO SCH ×2 (10:05→21:38)
--- NOTE | 2021-06-05 10:13 | Pharmacy Report ---
Pharmacy Glycemic Short Note 2 - Date of Service June 05, 2021 - Glycemic Short BSG Results (Last 24 hours): 06/04/21 06/04/21 06/04/21 12:08 12:10 16:36 Glucose POC Glucose 311 H* 294 H 464 H* 06/04/21 06/04/21 06/04/21 16:37 18:57 21:32 Glucose POC Glucose 489 H* 259 H 199 H 06/05/21 06/05/21 06/05/21 00:47 04:31 05:27 Glucose 152 H POC Glucose 209 H 161 H 06/05/21 07:47 Glucose POC Glucose 141 H OUTPATIENT ANTIDIABETIC REGIMEN: * Novolin 70/30 premixed insulin 56units SQ BIDM * Metformin 1,000mg PO BIDM * A1c = 8.4% on 06/05/21 ASSESSMENT: * 60yo T2DM male with adequate outpatient control given age/co-morbidities * Pt with sustained severe hyperglycemia secondary to illness (covid, UTI) and high dose IV steroids with dexamethasone * Outpatient pre-mixed insulin held on admission - changed to SQ basal bolus with Lantus + NovoLog at significantly reduced dosing. * Outpatient basal insulin = 40 units BID (70% of 56 units). Will continue with basal insulin dosing of 40 units BID * Will add weight based NPH for steroid induced hyperglycemia with DXM. Start at 0.3-0.4 units/kg adjusted body weight and titrate based on BSG trends. PLAN FOR INPATIENT GLYCEMIC CONTROL: * Hold outpatient oral diabetes medications * Basal insulin * Lantus 40 units SQ BID * Steroid induced hyperglycemia * NPH 30 units SQ daily with dexamethasone * Bolus insulin * NovoLog per scale ACHS or Q6hrs while NPO * Goal Range: Low 110 mg/dL - High 140 mg/dL * Correction Factor: 10 mg/dL/unit * Nutritional / Prandial insulin per carb ratio of 1 unit per 3 grams CHO consumed PLAN FOR DISCHARGE: * No changes needed at DC unless steroids are continued
[2021-06-05] MEDS ORDERED: INSULIN HUMAN NPH SC ONE (10:15)
--- NOTE | 2021-06-05 10:23 | Hospitalist Progress Note ---
Date of Service June 05, 2021 Assessment & Plan (1) Acute hypoxemic respiratory failure: Plan: COVID-19 pneumonia Present on admission with SOB, diarrhea and body aches Testing positive with COVID 19 CXR showed small hazy airspace opacities within the lung bases likely representing a viral pneumonia. Currently on dexamethasone and remdesivir. Will monitor liver enzymes while on Remdesivir` Continue to monitor inflammatory marker.CRP trending down to 0.94 today Has been weaned off to room air. Continue incentive spirometry and flutter Reports he uses 2 L/min nasal oxygen at bedtime Recurrent UTI Urine cx grew pseudomonas Based on evaluation of previous cultures, patient having neurogenic bladder and being on chronic Martinez, I think this is likely from colonization patient is currently on IV cefepime. Will complete. 5 days of treatment and stop. Patient reports that his Martinez cath get changed every second week of the month and last change was second week of this month. Diarrhea Mostly due to COVID 19 Stool negative for Cdiff Improved Diabetes Most recent hab1c 7.9 on 04/26 Blood glucose was poorly controlled yesterday. Likely due to steroid therapy and dextrose and heparin drip infusion. Blood glucose better controlled today. Adjustments were made yesterday. ROBERT on CKD Creatinine on admission 1.6 Creatinine improves to 1.2 today Takes lasix 40mg po bid at home. 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 5mg other days Continue IV heparin drip starting on admission until INR at goal Will give 7.5mg today Continue to monitor INR DVT prophylaxis IV Heparin/Coumadin bridge Rx Full code Patient's requesting updates providers. Cb Rody Jennifer, contact #[phone]. Plan: Patient likely to be ready for discharge in 2-3 days. May need short stay at SNF as patient's is currently hospitalized with COVID and he stated his care givers are also sick with COVID Melatonin prn insomnia Admission and Anticipated Discharge Date Admission Date: June 02, 2021 Subjective 60-year-old man with history of traumatic cervical spine and cord injury, hypertension, DM2, recurrent UTI, neurogenic bladder who presented to the hospital with headache, congestion. Being managed for COVID 19 pneumonia Patient seen and examined this morning. Reports no headache this morning Reports fatigue and insomnia No congestion or sore throat today Denied any abd pain, nausea, vomiting, diarrhea Weaned to room air yesterday evening Reports he uses 2l/min at bedtime Review of Systems Eyes: no worsening vision Ear, Nose, Mouth, Throat: No sore throat Respiratory: No cough at this time. No shortness of breath Cardiovascular: no chest pain and no dyspnea Gastrointestinal: no abdominal pain, no nausea and no vomiting Musculoskeletal: Reports quadriplegia Neurologic: + paralysis (In LE) and + headache(s); no dizziness and no confusion Psychiatric: no depression and no anxiety Physical Exam Constitutional: + obese; no acute distress Eyes: PERRL, conjunctivae normal, anicteric sclerae ENMT: external ear and nose normal, oropharynx normal Respiratory: Diminished breath sounds. Currently on room air Cardiovascular: RRR S1 S2 Gastrointestinal (Abdomen): normal bowel sounds, soft, nontender, no hepatosplenomegaly Colostomy bag in place Musculoskeletal: No pedal edema Neurologic: PERRL, EOMI, accommodation nl, no face palsy, no dysarthria Power is 3+/5 in UE and 0/5 in LE Psychiatric: A+Ox3, euthymic affect Genitourinary: Suprapubic catheter in situ Results & Data Results & Data ([facility]) Vital Signs (Past 12 Hours) Vital Signs Temp Pulse Resp BP Pulse Ox 06/05/21 07:50 36.7 C 61 18 120/70 96 06/05/21 04:41 36.7 C 60 19 118/67 98 06/05/21 00:43 37.1 C 64 19 139/66 94 Laboratory Results Abnormal lab results 06/04/21 06/04/21 06/04/21 Range/Units 09:43 12:08 12:10 RBC (4.7-6.1) M/uL Hgb (14.0-18.0) g/dL Hct (42-52) % RDW Std Deviation (36.4-46.3) fL RDW Coeff of Yoseph (11.5-14.5) % PT 18.3 H (9.0-12.0) Seconds INR 1.9 H (0.9-1.1) APTT 71.7 H* (21.0-31.0) Seconds Sodium (136-145) mmol/L Carbon Dioxide (21-32) mmol/L Anion Gap (3-11) BUN (7-18) mg/dl BUN/Creatinine Ratio (10-20) Glucose (70-99) mg/dl POC Glucose 311 H* 294 H (70-99) mg/dl Hemoglobin A1c (4.5-5.6) % C-Reactive Protein (0-0.29) mg/dl Albumin (3.4-5.0) gm/dl Globulin (2.5-4.0) gm/dl Albumin/Globulin Ratio (0.9-2) 06/04/21 06/04/21 06/04/21 Range/Units 16:36 16:37 17:33 RBC (4.7-6.1) M/uL Hgb (14.0-18.0) g/dL Hct (42-52) % RDW Std Deviation (36.4-46.3) fL RDW Coeff of Yoseph (11.5-14.5) % PT (9.0-12.0) Seconds INR (0.9-1.1) APTT 53.2 H* (21.0-31.0) Seconds Sodium (136-145) mmol/L Carbon Dioxide (21-32) mmol/L Anion Gap (3-11) BUN (7-18) mg/dl BUN/Creatinine Ratio (10-20) Glucose (70-99) mg/dl POC Glucose 464 H* 489 H* (70-99) mg/dl Hemoglobin A1c (4.5-5.6) % C-Reactive Protein (0-0.29) mg/dl Albumin (3.4-5.0) gm/dl Globulin (2.5-4.0) gm/dl Albumin/Globulin Ratio (0.9-2) 06/04/21 06/04/21 06/05/21 Range/Units 18:57 21:32 00:47 RBC (4.7-6.1) M/uL Hgb (14.0-18.0) g/dL Hct (42-52) % RDW Std Deviation (36.4-46.3) fL RDW Coeff of Yoseph (11.5-14.5) % PT (9.0-12.0) Seconds INR (0.9-1.1) APTT (21.0-31.0) Seconds Sodium (136-145) mmol/L Carbon Dioxide (21-32) mmol/L Anion Gap (3-11) BUN (7-18) mg/dl BUN/Creatinine Ratio (10-20) Glucose (70-99) mg/dl POC Glucose 259 H 199 H 209 H (70-99) mg/dl Hemoglobin A1c (4.5-5.6) % C-Reactive Protein (0-0.29) mg/dl Albumin (3.4-5.0) gm/dl Globulin (2.5-4.0) gm/dl Albumin/Globulin Ratio (0.9-2) 06/05/21 06/05/21 06/05/21 Range/Units 04:31 05:27 05:27 RBC (4.7-6.1) M/uL Hgb (14.0-18.0) g/dL Hct (42-52) % RDW Std Deviation (36.4-46.3) fL RDW Coeff of Yoseph (11.5-14.5) % PT 17.9 H (9.0-12.0) Seconds INR 1.9 H (0.9-1.1) APTT 61.8 H* (21.0-31.0) Seconds Sodium (136-145) mmol/L Carbon Dioxide (21-32) mmol/L Anion Gap (3-11) BUN (7-18) mg/dl BUN/Creatinine Ratio (10-20) Glucose (70-99) mg/dl POC Glucose 161 H (70-99) mg/dl Hemoglobin A1c 8.4 H (4.5-5.6) % C-Reactive Protein (0-0.29) mg/dl Albumin (3.4-5.0) gm/dl Globulin (2.5-4.0) gm/dl Albumin/Globulin Ratio (0.9-2) 06/05/21 06/05/21 06/05/21 Range/Units 05:27 05:27 07:47 RBC 3.94 L (4.7-6.1) M/uL Hgb 11.4 L (14.0-18.0) g/dL Hct 35.3 L (42-52) % RDW Std Deviation 53.4 H (36.4-46.3) fL RDW Coeff of Yoseph 16.2 H (11.5-14.5) % PT (9.0-12.0) Seconds INR (0.9-1.1) APTT (21.0-31.0) Seconds Sodium 135 L (136-145) mmol/L Carbon Dioxide 35 H (21-32) mmol/L Anion Gap 1.0 L (3-11) BUN 25 H (7-18) mg/dl BUN/Creatinine Ratio 20.6 H (10-20) Glucose 152 H (70-99) mg/dl POC Glucose 141 H (70-99) mg/dl Hemoglobin A1c (4.5-5.6) % C-Reactive Protein 0.94 H (0-0.29) mg/dl Albumin 2.9 L (3.4-5.0) gm/dl Globulin 5.1 H (2.5-4.0) gm/dl Albumin/Globulin Ratio 0.6 L (0.9-2)
[2021-06-05] MEDS: ESCITALOPRAM OXALATE 20 MG TAB PO SCH (12:02)
[2021-06-05] MEDS: FUROSEMIDE 80 MG TAB PO SCH ×2 (12:02→17:34)
[2021-06-05] MEDS ORDERED: WARFARIN SOD 7.5 MG TAB PO ONE (16:00)
[2021-06-05] MEDS ORDERED: WARFARIN SOD 5 MG TAB PO SCH (16:00)
[2021-06-05] MEDS: HEPARIN SODIUM/DEXTROSE 25,000 UNITS/500 ML BAG IV SCH (21:30)
[2021-06-05] MEDS: REMDESIVIR 100 MG in SODIUM CHLORIDE 0.9% 230 ML IV SCH (21:30)
[2021-06-05] MEDS: SODIUM CHLORIDE 0.9% 10ML FLUSH IV SCH (21:31)
[2021-06-05] MEDS: MELATONIN 3 MG TAB PO PRN (21:31)
[2021-06-05] MEDS: amLODIPine BESYLATE 5 MG TAB PO SCH (21:32)
[2021-06-05] MEDS: ATORVASTATIN 40 MG TAB PO SCH (21:32)
[2021-06-06] MEDS: CEFEPIME 2,000 MG in SYRINGE 0 ML IV SCH ×3 (06:24→20:52)
[2021-06-06 07:20] LABS: Hematocrit (blood only) 36.7 % (42-52); Mean Corpuscular Hemoglobin 28.7 pg (25-34); Mean Corpuscular Hgb Conc 32.7 g/dL (32-36); Mean Corpuscular Volume 87.8 fL (80-100); Platelet Count 212 K/uL (130-400); RDW Coefficient of Variation 16.1 % (11.5-14.5); Red Blood Count 4.18 M/uL (4.7-6.1)
[2021-06-06 07:46] LABS: Partial Thromboplastin Ratio 2.5; Prothrombin Time 18.8 Seconds (9.0-12.0)
[2021-06-06 07:48] LABS: Albumin Level 2.9 gm/dl (3.4-5.0); BUN Creatinine Ratio 24.1 (10-20); Calcium 9.2 mg/dl (8.5-10.1); Creatinine Clr Calc Pharmacy 96.3 ml/min; Est GFR (African American) 70.9 ml/min; Est GFR (Non-African American) 61.2 ml/min; Potassium 4.1 mmol/L (3.5-5.1)
[2021-06-06 07:51] LABS: Albumin Globulin Ratio 0.5 (0.9-2); Bilirubin,Total 0.4 mg/dl (0.2-1); Globulin 5.3 gm/dl (2.5-4.0); Total Protein 8.2 gm/dl (6.4-8.2)
[2021-06-06 07:53] LABS: Partial Thromboplastin Time 65.2 Seconds (21.0-31.0)
[2021-06-06] MEDS: dexAMETHasone 6 MG in SYRINGE 0 ML IV SCH (09:54)
[2021-06-06] MEDS: BACLOFEN 10 MG TAB PO SCH ×4 (09:54→21:05)
[2021-06-06] MEDS: ESCITALOPRAM OXALATE 20 MG TAB PO SCH (09:55)
[2021-06-06] MEDS: FUROSEMIDE 80 MG TAB PO SCH ×2 (09:55→17:44)
[2021-06-06] MEDS: GABAPENTIN 400 MG CAP PO SCH ×2 (09:55→21:05)
[2021-06-06] MEDS: LACTOBACILLUS ACIDOPHILUS 1 GM PACK PO SCH ×2 (09:56→21:06)
[2021-06-06] MEDS: MULTIVITAMIN TAB PO SCH (09:57)
[2021-06-06] MEDS: tiZANidine HCL 4 MG TABLET PO SCH ×2 (09:57→21:05)
[2021-06-06] MEDS: rOPINIRole HCL 1 MG TABLET PO SCH ×4 (09:57→21:06)
[2021-06-06] MEDS: PANTOprazole 40 MG TAB PO SCH (09:57)
[2021-06-06] MEDS: INSULIN GLARGINE SOLOSTAR 100 UNITS/ML 3 ML PEN SC SCH ×2 (10:00→21:05)
[2021-06-06] MEDS: INSULIN HUMAN NPH SC SCH (10:00)
[2021-06-06] MEDS: MEDICAL MARIJUANA PO SCH ×2 (10:00→23:27)
[2021-06-06] MEDS: INSULIN ASPART 100 UNITS/ML 3 ML PEN SC SCH ×4 (10:00→21:05)
[2021-06-06] MEDS: FAMOTIDINE 20 MG TAB PO SCH ×2 (10:00→21:06)
--- NOTE | 2021-06-06 10:32 | Hospitalist Progress Note ---
Date of Service June 06, 2021 Assessment & Plan (1) Acute hypoxemic respiratory failure: Plan: COVID-19 pneumonia Present on admission with SOB, diarrhea and body aches Tested positive with COVID 19 CXR showed small hazy airspace opacities within the lung bases likely representing a viral pneumonia. Currently on dexamethasone and remdesivir. Has been weaned off to room air. Continue incentive spirometry and flutter Uses 2 L/min nasal oxygen at bedtime Clinically improved Recurrent UTI Urine cx grew pseudomonas Based on evaluation of previous cultures, patient having neurogenic bladder and being on chronic Urbina, I think this is likely from colonization patient is currently on IV cefepime. Will complete antibiotics tomorrow Patient reports that his Urbina cath gets changed every second week of the month and last change was second week of this month. Diarrhea Mostly due to COVID 19 Stool negative for Cdiff Improved Diabetes Most recent hab1c 7.9 on 04/26 Blood glucose was poorly controlled yesterday. Likely due to steroid therapy and dextrose and heparin drip infusion. Blood glucose better controlled today. Adjustments were made yesterday. 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 5mg other days Discontinue heparin drip DVT prophylaxis - Coumadin Full code Patient's requesting updates providers. Ms. Rody Rodriguez, contact #[phone]. Plan: Possible dc tomorrow once SNF bed is available Admission and Anticipated Discharge Date Admission Date: June 02, 2021 Subjective 60-year-old man with history of traumatic cervical spine and cord injury, hypertension, DM2, recurrent UTI, neurogenic bladder who presented to the hospital with headache, congestion. Being managed for COVID 19 pneumonia Patient seen and examined this morning. Reports he was able to sleep last night Denied any abd pain, nausea, vomiting, diarrhea Remains on room air. Uses 2l/min at bedtime Review of Systems Ear, Nose, Mouth, Throat: No sore throat Respiratory: No cough at this time. No shortness of breath Cardiovascular: no chest pain and no dyspnea Gastrointestinal: no abdominal pain, no nausea and no vomiting Musculoskeletal: Reports quadriplegia Neurologic: + paralysis (In LE) and + headache(s); no dizziness and no confusion Psychiatric: no depression and no anxiety Physical Exam Constitutional: + obese; no acute distress Eyes: PERRL, conjunctivae normal, anicteric sclerae ENMT: external ear and nose normal, oropharynx normal Respiratory: Not in resp distress Diminished breath sounds Gastrointestinal (Abdomen): normal bowel sounds, soft, nontender, no hepatosplenomegaly Colostomy bag in situ Neurologic: PERRL, EOMI, accommodation nl, no face palsy, no dysarthria Power is 3+/5 in UE and 0/5 in LE Psychiatric: A+Ox3, euthymic affect Genitourinary: Suprapubic urbina Results & Data Results & Data ([facility]) Vital Signs (Past 12 Hours) Vital Signs Temp Pulse Pulse Resp BP Pulse Ox 06/06/21 08:00 36.4 C L 60 18 143/75 H 98 06/06/21 04:47 37.0 C 55 L 19 115/67 98 06/05/21 23:43 36.7 C 58 L 19 126/61 97 06/05/21 23:42 53 L Laboratory Results Abnormal lab results 06/05/21 06/05/21 06/06/21 Range/Units 16:52 20:09 06:48 RBC (4.7-6.1) M/uL Hgb (14.0-18.0) g/dL Hct (42-52) % RDW Std Deviation (36.4-46.3) fL RDW Coeff of Yoseph (11.5-14.5) % PT 18.8 H (9.0-12.0) Seconds INR 2.0 H (0.9-1.1) APTT 65.2 H* (21.0-31.0) Seconds Carbon Dioxide (21-32) mmol/L BUN (7-18) mg/dl BUN/Creatinine Ratio (10-20) Glucose (70-99) mg/dl POC Glucose 270 H 248 H (70-99) mg/dl Albumin (3.4-5.0) gm/dl Globulin (2.5-4.0) gm/dl Albumin/Globulin Ratio (0.9-2) 06/06/21 06/06/21 06/06/21 Range/Units 06:48 06:48 07:55 RBC 4.18 L (4.7-6.1) M/uL Hgb 12.0 L (14.0-18.0) g/dL Hct 36.7 L (42-52) % RDW Std Deviation 52.0 H (36.4-46.3) fL RDW Coeff of Yoseph 16.1 H (11.5-14.5) % PT (9.0-12.0) Seconds INR (0.9-1.1) APTT (21.0-31.0) Seconds Carbon Dioxide 34 H (21-32) mmol/L BUN 30 H (7-18) mg/dl BUN/Creatinine Ratio 24.1 H (10-20) Glucose 157 H (70-99) mg/dl POC Glucose 153 H (70-99) mg/dl Albumin 2.9 L (3.4-5.0) gm/dl Globulin 5.3 H (2.5-4.0) gm/dl Albumin/Globulin Ratio 0.5 L (0.9-2) 06/06/21 Range/Units 11:27 RBC (4.7-6.1) M/uL Hgb (14.0-18.0) g/dL Hct (42-52) % RDW Std Deviation (36.4-46.3) fL RDW Coeff of Yoseph (11.5-14.5) % PT (9.0-12.0) Seconds INR (0.9-1.1) APTT (21.0-31.0) Seconds Carbon Dioxide (21-32) mmol/L BUN (7-18) mg/dl BUN/Creatinine Ratio (10-20) Glucose (70-99) mg/dl POC Glucose 113 H (70-99) mg/dl Albumin (3.4-5.0) gm/dl Globulin (2.5-4.0) gm/dl Albumin/Globulin Ratio (0.9-2)
--- NOTE | 2021-06-06 13:24 | Pharmacy Report ---
Pharmacy Glycemic Short Note 2 - Date of Service June 06, 2021 - Glycemic Short BSG Results (Last 24 hours): 06/05/21 06/05/21 06/06/21 16:52 20:09 06:48 Glucose 157 H POC Glucose 270 H 248 H 06/06/21 06/06/21 07:55 11:27 Glucose POC Glucose 153 H 113 H OUTPATIENT ANTIDIABETIC REGIMEN: * Novolin 70/30 premixed insulin 56units SQ BIDM * Metformin 1,000mg PO BIDM * A1c = 8.4% on 06/05/21 ASSESSMENT: 06/06 * Patient received 196 units of insulin yesterday, of which 80 units were Lantus and 30 units NPH to cover steroids * Fasting BSG 153 mg/dL - plan to continue same basal insulin * NPH increased this AM to better cover BSGs throughout the day * Lunch BSG trending downward, may scale back slightly on CR 06/05 * 60yo T2DM male with adequate outpatient control given age/co-morbidities * Pt with sustained severe hyperglycemia secondary to illness (covid, UTI) and high dose IV steroids with dexamethasone * Outpatient pre-mixed insulin held on admission - changed to SQ basal bolus wit h Lantus + NovoLog at significantly reduced dosing. * Outpatient basal insulin = 40 units BID (70% of 56 units). Will continue with basal insulin dosing of 40 units BID * Will add weight based NPH for steroid induced hyperglycemia with DXM. Start at 0.3-0.4 units/kg adjusted body weight and titrate based on BSG trends. PLAN FOR INPATIENT GLYCEMIC CONTROL: * Hold outpatient oral diabetes medications * Basal insulin * Lantus 40 units SQ BID * Steroid induced hyperglycemia * NPH 40 units SQ daily with dexamethasone * Bolus insulin * NovoLog per scale ACHS or Q6hrs while NPO * Goal Range: Low 110 mg/dL - High 140 mg/dL * Correction Factor: 10 mg/dL/unit * Nutritional / Prandial insulin per carb ratio of 1 unit per 4 grams CHO consumed PLAN FOR DISCHARGE: * No changes needed at DC unless steroids are continued
[2021-06-06] MEDS: WARFARIN SOD 7.5 MG TAB PO SCH (17:42)
[2021-06-06] MEDS: REMDESIVIR 100 MG in SODIUM CHLORIDE 0.9% 230 ML IV SCH (20:53)
[2021-06-06] MEDS: amLODIPine BESYLATE 5 MG TAB PO SCH (21:08)
[2021-06-06] MEDS: ATORVASTATIN 40 MG TAB PO SCH (21:08)
[2021-06-06] MEDS: SODIUM CHLORIDE 0.9% 10ML FLUSH IV SCH (22:22)
[2021-06-07] MEDS: MELATONIN 3 MG TAB PO PRN ×2 (01:00→22:45)
[2021-06-07] MEDS: CEFEPIME 2,000 MG in SYRINGE 0 ML IV SCH ×3 (04:03→20:01)
[2021-06-07] MEDS ORDERED: INSULIN HUMAN NPH SC SCH (09:30)
[2021-06-07] MEDS: INSULIN ASPART 100 UNITS/ML 3 ML PEN SC SCH ×4 (09:33→20:51)
[2021-06-07] MEDS: INSULIN GLARGINE SOLOSTAR 100 UNITS/ML 3 ML PEN SC SCH ×2 (09:33→20:52)
[2021-06-07] MEDS: INSULIN HUMAN NPH SC SCH (09:49)
[2021-06-07] MEDS: FUROSEMIDE 80 MG TAB PO SCH ×2 (10:00→16:35)
[2021-06-07] MEDS: dexAMETHasone 6 MG in SYRINGE 0 ML IV SCH (10:00)
[2021-06-07] MEDS: tiZANidine HCL 4 MG TABLET PO SCH ×2 (10:00→20:03)
[2021-06-07] MEDS: LACTOBACILLUS ACIDOPHILUS 1 GM PACK PO SCH ×2 (10:01→20:04)
[2021-06-07] MEDS: MULTIVITAMIN TAB PO SCH (10:01)
[2021-06-07] MEDS: BACLOFEN 10 MG TAB PO SCH ×4 (10:01→20:31)
[2021-06-07] MEDS: GABAPENTIN 400 MG CAP PO SCH ×2 (10:01→20:04)
[2021-06-07] MEDS: PANTOprazole 40 MG TAB PO SCH (10:01)
[2021-06-07] MEDS: FAMOTIDINE 20 MG TAB PO SCH ×2 (10:02→20:31)
[2021-06-07] MEDS: MEDICAL MARIJUANA PO SCH ×2 (10:02→22:24)
[2021-06-07] MEDS: ESCITALOPRAM OXALATE 20 MG TAB PO SCH (10:02)
[2021-06-07] MEDS: rOPINIRole HCL 1 MG TABLET PO SCH ×4 (10:02→20:03)
[2021-06-07 11:00] LABS: Hematocrit (blood only) 37.2 % (42-52); Hemoglobin 12.2 g/dL (14.0-18.0); Mean Corpuscular Hemoglobin 28.5 pg (25-34); Mean Corpuscular Hgb Conc 32.8 g/dL (32-36); Mean Corpuscular Volume 86.9 fL (80-100); Mean Platelet Volume 9.6 fL (7.4-10.4); Platelet Count 228 K/uL (130-400); RDW Coefficient of Variation 16.2 % (11.5-14.5); RDW Standard Deviation 51.9 fL (36.4-46.3); Red Blood Count 4.28 M/uL (4.7-6.1)
[2021-06-07 11:09] LABS: INR 2.2 (0.9-1.1); Prothrombin Time 20.8 Seconds (9.0-12.0)
[2021-06-07 11:26] LABS: BUN Creatinine Ratio 32.3 (10-20); Calcium 9.2 mg/dl (8.5-10.1); Creatinine Clr Calc Pharmacy 95.5 ml/min; Est GFR (African American) 70.2 ml/min; Est GFR (Non-African American) 60.6 ml/min; Potassium 3.6 mmol/L (3.5-5.1)
--- NOTE | 2021-06-07 11:38 | Hospitalist Progress Note ---
Date of Service June 07, 2021 Assessment & Plan (1) Acute hypoxemic respiratory failure: Plan: COVID-19 pneumonia Present on admission with SOB, diarrhea and body aches Tested positive with COVID 19 CXR showed small hazy airspace opacities within the lung bases likely representing a viral pneumonia. Currently on dexamethasone Completed remdesivir 06/07/21. Has been weaned off to room air. Continue incentive spirometry and flutter Uses 2 L/min nasal oxygen at bedtime Recurrent UTI Urine cx grew pseudomonas Based on evaluation of previous cultures, patient having neurogenic bladder and being on chronic Urbina, I think this is likely from colonization patient is currently on IV cefepime. Will complete antibiotics tomorrow Patient reports that his Urbina cath gets changed every second week of the month and last change was second week of this month. Diarrhea Mostly due to COVID 19 Stool negative for Cdiff Improved Diabetes Most recent hab1c 7.9 on 04/26 Blood glucose was poorly controlled yesterday. 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 5mg other days Full code Patient's requesting updates providers. Ms. Rody Rodriguez, contact #[phone]. Plan: Possible dc once SNF bed is available Admission and Anticipated Discharge Date Admission Date: June 02, 2021 Subjective 60-year-old man with history of traumatic cervical spine and cord injury, hypertension, DM2, recurrent UTI, neurogenic bladder who presented to the hospital with headache, congestion. Being managed for COVID 19 pneumonia Patient seen and examined this morning. Reports he was able to sleep last night Denied any abd pain, nausea, vomiting, diarrhea Remains on room air. Uses 2l/min at bedtime Review of Systems Eyes: + worsening vision Respiratory: No cough at this time. No shortness of breath Cardiovascular: no chest pain and no dyspnea Gastrointestinal: no abdominal pain, no nausea and no vomiting Musculoskeletal: Reports quadriplegia Neurologic: + paralysis (In LE) and + headache(s); no dizziness and no confusion Psychiatric: no depression and no anxiety Physical Exam Constitutional: + obese; no acute distress Eyes: PERRL, conjunctivae normal, anicteric sclerae ENMT: external ear and nose normal, oropharynx normal Respiratory: Clear to auscultation No crackles/wheeze On room air Gastrointestinal (Abdomen): normal bowel sounds, soft, nontender, no hepatosplenomegaly Neurologic: PERRL, EOMI, accommodation nl, no face palsy, no dysarthria Power is 3+/5 in UE and 0/5 in LE Psychiatric: A+Ox3, euthymic affect Genitourinary: Suprapubic urbina Results & Data Results & Data ([facility]) Vital Signs (Past 12 Hours) Vital Signs Temp Pulse Resp BP Pulse Ox 06/07/21 07:38 36.6 C 62 16 127/82 97 Laboratory Results Abnormal lab results 06/06/21 06/06/21 06/07/21 Range/Units 16:55 20:46 07:39 RBC (4.7-6.1) M/uL Hgb (14.0-18.0) g/dL Hct (42-52) % RDW Std Deviation (36.4-46.3) fL RDW Coeff of Yoseph (11.5-14.5) % PT (9.0-12.0) Seconds INR (0.9-1.1) BUN (7-18) mg/dl BUN/Creatinine Ratio (10-20) Glucose (70-99) mg/dl POC Glucose 194 H 282 H 129 H (70-99) mg/dl 06/07/21 06/07/21 06/07/21 Range/Units 10:20 10:20 10:20 RBC 4.28 L (4.7-6.1) M/uL Hgb 12.2 L (14.0-18.0) g/dL Hct 37.2 L (42-52) % RDW Std Deviation 51.9 H (36.4-46.3) fL RDW Coeff of Yoseph 16.2 H (11.5-14.5) % PT 20.8 H (9.0-12.0) Seconds INR 2.2 H (0.9-1.1) BUN 41 H (7-18) mg/dl BUN/Creatinine Ratio 32.3 H (10-20) Glucose 126 H (70-99) mg/dl POC Glucose (70-99) mg/dl 06/07/21 06/07/21 06/07/21 Range/Units 11:39 16:27 16:29 RBC (4.7-6.1) M/uL Hgb (14.0-18.0) g/dL Hct (42-52) % RDW Std Deviation (36.4-46.3) fL RDW Coeff of Yoseph (11.5-14.5) % PT (9.0-12.0) Seconds INR (0.9-1.1) BUN (7-18) mg/dl BUN/Creatinine Ratio (10-20) Glucose (70-99) mg/dl POC Glucose 158 H 325 H* 227 H (70-99) mg/dl
--- NOTE | 2021-06-07 13:52 | Pharmacy Report ---
Pharmacy Glycemic Short Note 2 - Date of Service June 07, 2021 - Glycemic Short BSG Results (Last 24 hours): 06/06/21 06/06/21 06/07/21 16:55 20:46 07:39 Glucose POC Glucose 194 H 282 H 129 H 06/07/21 06/07/21 10:20 11:39 Glucose 126 H POC Glucose 158 H OUTPATIENT ANTIDIABETIC REGIMEN: * Novolin 70/30 premixed insulin 56units SQ BIDM * Metformin 1,000mg PO BIDM * A1c = 8.4% on 06/05/21 ASSESSMENT: 06/07 * Patient received 174 units of insulin yesterday, of which 80 units were Lantus and 40 units NPH to cover steroids * Fasting BSG 129 mg/dL - plan to continue same basal insulin * NPH increased and CR tightened this AM to better cover BSGs throughout the day 06/06 * Patient received 196 units of insulin yesterday, of which 80 units were Lantus and 30 units NPH to cover steroids * Fasting BSG 153 mg/dL - plan to continue same basal insulin * NPH increased this AM to better cover BSGs throughout the day * Lunch BSG trending downward, may scale back slightly on CR 06/05 * 60yo T2DM male with adequate outpatient control given age/co-morbidities * Pt with sustained severe hyperglycemia secondary to illness (covid, UTI) and high dose IV steroids with dexamethasone * Outpatient pre-mixed insulin held on admission - changed to SQ basal bolus with Lantus + NovoLog at significantly reduced dosing. * Outpatient basal insulin = 40 units BID (70% of 56 units). Will continue with basal insulin dosing of 40 units BID * Will add weight based NPH for steroid induced hyperglycemia with DXM. Start at 0.3-0.4 units/kg adjusted body weight and titrate based on BSG trends. PLAN FOR INPATIENT GLYCEMIC CONTROL: * Hold outpatient diabetes medications * Basal insulin * Lantus 40 units SQ BID * Steroid induced hyperglycemia * NPH 45 units SQ daily with dexamethasone * Bolus insulin * NovoLog per scale ACHS or Q6hrs while NPO * Goal Range: Low 110 mg/dL - High 140 mg/dL * Correction Factor: 10 mg/dL/unit * Nutritional / Prandial insulin per carb ratio of 1 unit per 3 grams CHO consumed PLAN FOR DISCHARGE: * No changes needed at DC unless steroids are continued
[2021-06-07] MEDS: WARFARIN SOD 7.5 MG TAB PO SCH (16:35)
[2021-06-07] MEDS: ATORVASTATIN 40 MG TAB PO SCH (20:04)
[2021-06-07] MEDS: amLODIPine BESYLATE 5 MG TAB PO SCH (20:07)
[2021-06-08] MEDS: CEFEPIME 2,000 MG in SYRINGE 0 ML IV SCH (04:04)
[2021-06-08] MEDS: dexAMETHasone 6 MG in SYRINGE 0 ML IV SCH (08:29)
[2021-06-08] MEDS: FAMOTIDINE 20 MG TAB PO SCH ×2 (08:30→20:55)
[2021-06-08] MEDS: LACTOBACILLUS ACIDOPHILUS 1 GM PACK PO SCH ×2 (08:30→20:56)
[2021-06-08] MEDS: MULTIVITAMIN TAB PO SCH (08:30)
[2021-06-08] MEDS: ESCITALOPRAM OXALATE 20 MG TAB PO SCH (08:30)
[2021-06-08] MEDS: GABAPENTIN 400 MG CAP PO SCH ×2 (08:30→20:55)
[2021-06-08] MEDS: rOPINIRole HCL 1 MG TABLET PO SCH ×4 (08:30→20:56)
[2021-06-08] MEDS: PANTOprazole 40 MG TAB PO SCH (08:30)
[2021-06-08] MEDS: tiZANidine HCL 4 MG TABLET PO SCH ×2 (08:30→20:56)
[2021-06-08] MEDS: BACLOFEN 10 MG TAB PO SCH ×4 (08:30→20:57)
[2021-06-08] MEDS: FUROSEMIDE 80 MG TAB PO SCH ×2 (08:30→16:02)
[2021-06-08] MEDS: MEDICAL MARIJUANA PO SCH ×2 (08:31→21:59)
[2021-06-08] MEDS: INSULIN ASPART 100 UNITS/ML 3 ML PEN SC SCH ×4 (09:04→20:59)
[2021-06-08] MEDS: INSULIN GLARGINE SOLOSTAR 100 UNITS/ML 3 ML PEN SC SCH ×2 (09:06→21:00)
[2021-06-08] MEDS: INSULIN HUMAN NPH SC SCH (09:06)
--- NOTE | 2021-06-08 11:47 | Hospitalist Progress Note ---
Date of Service June 08, 2021 Assessment & Plan (1) Acute hypoxemic respiratory failure: Plan: COVID-19 pneumonia Present on admission with SOB, diarrhea and body aches Tested positive with COVID 19 CXR showed small hazy airspace opacities within the lung bases likely representing a viral pneumonia. Currently on dexamethasone Completed remdesivir 06/07/21. Has been weaned off to room air. Continue incentive spirometry and flutter Uses 2 L/min nasal oxygen at bedtime Recurrent UTI Urine cx grew pseudomonas Based on evaluation of previous cultures, patient having neurogenic bladder and being on chronic Urbina, I think this is likely from colonization. Antibiotics completed Patient reports that his Urbina cath gets changed every second week of the month and last change was second week of this month. 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 5mg other days Full code Patient's requesting updates providers. Rody Jennifer, contact #[phone]. Plan: Possible dc once SNF bed is available Admission and Anticipated Discharge Date Admission Date: June 02, 2021 Subjective 60-year-old man with history of traumatic cervical spine and cord injury, hypertension, DM2, recurrent UTI, neurogenic bladder who presented to the hospital with headache, congestion. Being managed for COVID 19 pneumonia Patient seen and examined this morning. No new symptoms Review of Systems Respiratory: No cough at this time. No shortness of breath Cardiovascular: no chest pain and no dyspnea Gastrointestinal: no abdominal pain, no nausea and no vomiting Musculoskeletal: Reports quadriplegia Neurologic: + paralysis (In LE) and + headache(s); no dizziness and no confusion Psychiatric: no depression and no anxiety Physical Exam Constitutional: + obese; no acute distress Eyes: PERRL, conjunctivae normal, anicteric sclerae ENMT: external ear and nose normal, oropharynx normal Respiratory: normal respiratory effort, lungs clear to auscultation Cardiovascular: RRR. S1 S2 Gastrointestinal (Abdomen): normal bowel sounds, soft, nontender, no hepatosplenomegaly Colostomy bag in situ Musculoskeletal: Power is 4/5 in UE and 0/5 in LE Neurologic: PERRL, EOMI, accommodation nl, no face palsy, no dysarthria Psychiatric: A+Ox3, euthymic affect Genitourinary: Suprapubic urbina in situ Results & Data Results & Data ([facility]) Vital Signs (Past 12 Hours) Vital Signs Temp Pulse Resp BP Pulse Ox 06/08/21 08:25 36.8 C 68 16 127/64 97 Laboratory Results Abnormal lab results 06/07/21 06/07/21 06/07/21 Range/Units 16:27 16:29 20:38 POC Glucose 325 H* 227 H 222 H (70-99) mg/dl 06/08/21 06/08/21 Range/Units 08:09 12:03 POC Glucose 152 H 257 H (70-99) mg/dl
--- NOTE | 2021-06-08 14:37 | Pharmacy Report ---
Pharmacy Glycemic Short Note 2 - Date of Service June 08, 2021 - Glycemic Short BSG Results (Last 24 hours): 06/07/21 06/07/21 06/07/21 16:27 16:29 20:38 POC Glucose 325 H* 227 H 222 H 06/08/21 06/08/21 08:09 12:03 POC Glucose 152 H 257 H OUTPATIENT ANTIDIABETIC REGIMEN: * Novolin 70/30 premixed insulin 56units SQ BIDM * Metformin 1,000mg PO BIDM * A1c = 8.4% on 06/05/21 ASSESSMENT: 06/08 * Patient received 185 units of insulin yesterday, of which 80 units were Lantus and 45 units NPH to cover steroids * Fasting BSG 152 mg/dL - continue same basal insulin * Blood sugars rising throughout the day, increase NPH again and tighten CR further 06/07 * Patient received 174 units of insulin yesterday, of which 80 units were Lantus and 40 units NPH to cover steroids * Fasting BSG 129 mg/dL - plan to continue same basal insulin * NPH increased and CR tightened this AM to better cover BSGs throughout the day 06/06 * Patient received 196 units of insulin yesterday, of which 80 units were Lantus and 30 units NPH to cover steroids * Fasting BSG 153 mg/dL - plan to continue same basal insulin * NPH increased this AM to better cover BSGs throughout the day * Lunch BSG trending downward, may scale back slightly on CR 06/05 * 60yo T2DM male with adequate outpatient control given age/co-morbidities * Pt with sustained severe hyperglycemia secondary to illness (covid, UTI) and high dose IV steroids with dexamethasone * Outpatient pre-mixed insulin held on admission - changed to SQ basal bolus with Lantus + NovoLog at significantly reduced dosing. * Outpatient basal insulin = 40 units BID (70% of 56 units). Will continue with basal insulin dosing of 40 units BID * Will add weight based NPH for steroid induced hyperglycemia with DXM. Start at 0.3-0.4 units/kg adjusted body weight and titrate based on BSG trends. PLAN FOR INPATIENT GLYCEMIC CONTROL: * Hold outpatient diabetes medications * Basal insulin * Lantus 40 units SQ BID * Steroid induced hyperglycemia * NPH 50 units SQ daily with dexamethasone * Bolus insulin * NovoLog per scale ACHS or Q6hrs while NPO * Goal Range: Low 110 mg/dL - High 140 mg/dL * Correction Factor: 10 mg/dL/unit * Nutritional / Prandial insulin per carb ratio of 1 unit per 2.5 grams CHO consumed PLAN FOR DISCHARGE: * No changes needed at DC unless steroids are continued
[2021-06-08] MEDS: WARFARIN SOD 5 MG TAB PO SCH (16:02)
[2021-06-08] MEDS: ATORVASTATIN 40 MG TAB PO SCH (20:56)
[2021-06-08] MEDS: amLODIPine BESYLATE 5 MG TAB PO SCH (20:57)
[2021-06-08] MEDS: MELATONIN 3 MG TAB PO PRN (22:00)
[2021-06-09] MEDS: dexAMETHasone 6 MG in SYRINGE 0 ML IV SCH (08:02)
[2021-06-09] MEDS: tiZANidine HCL 4 MG TABLET PO SCH ×2 (08:02→21:18)
[2021-06-09] MEDS: rOPINIRole HCL 1 MG TABLET PO SCH ×4 (08:02→21:18)
[2021-06-09] MEDS: LACTOBACILLUS ACIDOPHILUS 1 GM PACK PO SCH ×2 (08:02→21:19)
[2021-06-09] MEDS: BACLOFEN 10 MG TAB PO SCH ×4 (08:02→21:17)
[2021-06-09] MEDS: ESCITALOPRAM OXALATE 20 MG TAB PO SCH (08:03)
[2021-06-09] MEDS: GABAPENTIN 400 MG CAP PO SCH ×2 (08:03→21:17)
[2021-06-09] MEDS: PANTOprazole 40 MG TAB PO SCH (08:03)
[2021-06-09] MEDS: MULTIVITAMIN TAB PO SCH (08:03)
[2021-06-09] MEDS: FAMOTIDINE 20 MG TAB PO SCH ×2 (08:03→21:17)
[2021-06-09] MEDS: MEDICAL MARIJUANA PO SCH ×2 (08:06→21:28)
[2021-06-09 09:04] LABS: INR 2.6 (0.9-1.1); Prothrombin Time 24.3 Seconds (9.0-12.0)
[2021-06-09] MEDS: INSULIN ASPART 100 UNITS/ML 3 ML PEN SC SCH ×4 (09:20→21:20)
[2021-06-09] MEDS: INSULIN GLARGINE SOLOSTAR 100 UNITS/ML 3 ML PEN SC SCH ×2 (09:24→21:20)
[2021-06-09] MEDS: INSULIN HUMAN NPH SC SCH ×2 (09:24→10:21)
[2021-06-09] MEDS: FUROSEMIDE 80 MG TAB PO SCH ×2 (10:20→17:55)
--- NOTE | 2021-06-09 11:38 | Pharmacy Report ---
Pharmacy Glycemic Short Note 2 - Date of Service June 09, 2021 - Glycemic Short BSG Results (Last 24 hours): 06/08/21 06/08/21 06/08/21 12:03 17:10 20:39 POC Glucose 257 H 209 H 228 H 06/09/21 08:15 POC Glucose 107 H OUTPATIENT ANTIDIABETIC REGIMEN: * Novolin 70/30 premixed insulin 56units SQ BIDM * Metformin 1,000mg PO BIDM * A1c = 8.4% on 06/05/21 ASSESSMENT: 06/09 * Patient's BSGs yesterday were [phone] mg/dL and fasting today was 107 mg/dL. * Patient received 203 units of insulin (130 units of basal - 80 units of Lantus and 50 units of NPH plus 73 units of bolus) * Fasting okay so continue Lantus 40 units BID. * BSGs trend up throughout the day so increasing NPH slightly but tighten Novolog. 06/08 * Patient received 185 units of insulin yesterday, of which 80 units were Lantus and 45 units NPH to cover steroids * Fasting BSG 152 mg/dL - continue same basal insulin * Blood sugars rising throughout the day, increase NPH again and tighten CR further 06/07 * Patient received 174 units of insulin yesterday, of which 80 units were Lantus and 40 units NPH to cover steroids * Fasting BSG 129 mg/dL - plan to continue same basal insulin * NPH increased and CR tightened this AM to better cover BSGs throughout the day 06/06 * Patient received 196 units of insulin yesterday, of which 80 units were Lantus and 30 units NPH to cover steroids * Fasting BSG 153 mg/dL - plan to continue same basal insulin * NPH increased this AM to better cover BSGs throughout the day * Lunch BSG trending downward, may scale back slightly on CR 06/05 * 60yo T2DM male with adequate outpatient control given age/co-morbidities * Pt with sustained severe hyperglycemia secondary to illness (covid, UTI) and high dose IV steroids with dexamethasone * Outpatient pre-mixed insulin held on admission - changed to SQ basal bolus with Lantus + NovoLog at significantly reduced dosing. * Outpatient basal insulin = 40 units BID (70% of 56 units). Will continue with basal insulin dosing of 40 units BID * Will add weight based NPH for steroid induced hyperglycemia with DXM. Start at 0.3-0.4 units/kg adjusted body weight and titrate based on BSG trends. PLAN FOR INPATIENT GLYCEMIC CONTROL: * Hold outpatient diabetes medications * Basal insulin * Lantus 40 units SQ BID * Steroid induced hyperglycemia * NPH 55 units SQ daily with dexamethasone * Bolus insulin * NovoLog per scale ACHS or Q6hrs while NPO * Goal Range: Low 110 mg/dL - High 140 mg/dL * Correction Factor: 8 mg/dL/unit * Nutritional / Prandial insulin per carb ratio of 1 unit per 2 grams CHO consumed PLAN FOR DISCHARGE: * Patient's HBA1C currently is 8.4% which is above goal of <8% for his comorbidities. * Recommend working with outpatient provider to optimize insulin regimen by checking BSG at least twice per day at varying times per day then adjusting insulin to goal blood sugars. * It is currently difficult to estimate outpatient needs as patient is currently on steroids.
--- NOTE | 2021-06-09 13:22 | Hospitalist Progress Note ---
Date of Service June 09, 2021 Assessment & Plan (1) Acute hypoxemic respiratory failure: Plan: COVID-19 pneumonia Present on admission with SOB, diarrhea and body aches Tested positive with COVID 19 CXR showed small hazy airspace opacities within the lung bases likely representing a viral pneumonia. Currently on dexamethasone Completed remdesivir 06/07/21. Has been weaned off to room air. Continue incentive spirometry and flutter Uses 2 L/min nasal oxygen at bedtime Recurrent UTI Urine cx grew pseudomonas Based on evaluation of previous cultures, patient having neurogenic bladder and being on chronic Martinez, I think this is likely from colonization. Antibiotics completed Patient reports that his Martinez cath gets changed every second week of the month and last change was second week of this month. 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 5mg other days Full code Patient's requesting updates providers. Rody Jennifer, contact #[phone]. Plan: Possible dc once SNF bed is available Admission and Anticipated Discharge Date Admission Date: June 02, 2021 Subjective 60-year-old man with history of traumatic cervical spine and cord injury, hypertension, DM2, recurrent UTI, neurogenic bladder who presented to the hospital with headache, congestion. Being managed for COVID 19 pneumonia Patient seen and examined No new symptoms Review of Systems Ear, Nose, Mouth, Throat: No sore throat Respiratory: No cough at this time. No shortness of breath Cardiovascular: no chest pain and no dyspnea Gastrointestinal: no abdominal pain, no nausea and no vomiting Musculoskeletal: Reports quadriplegia Neurologic: + paralysis (In LE) and + headache(s); no dizziness and no confusion Psychiatric: no depression and no anxiety Physical Exam Constitutional: + obese; no acute distress Eyes: PERRL, conjunctivae normal, anicteric sclerae ENMT: external ear and nose normal, oropharynx normal Respiratory: normal respiratory effort, lungs clear to auscultation Gastrointestinal (Abdomen): normal bowel sounds, soft, nontender, no hepatosplenomegaly Musculoskeletal: Power is 0/5 in LE and 4/5 in UE Neurologic: PERRL, EOMI, accommodation nl, no face palsy, no dysarthria Psychiatric: A+Ox3, euthymic affect Results & Data Results & Data ([facility]) Vital Signs (Past 12 Hours) Vital Signs Temp Pulse Resp BP Pulse Ox 06/09/21 07:15 36.5 C 66 16 135/67 99 Laboratory Results Abnormal lab results 06/08/21 06/08/21 06/09/21 Range/Units 17:10 20:39 08:15 PT (9.0-12.0) Seconds INR (0.9-1.1) POC Glucose 209 H 228 H 107 H (70-99) mg/dl 06/09/21 06/09/21 Range/Units 08:37 12:20 PT 24.3 H (9.0-12.0) Seconds INR 2.6 H (0.9-1.1) POC Glucose 209 H (70-99) mg/dl
[2021-06-09] MEDS: WARFARIN SOD 7.5 MG TAB PO SCH (17:54)
[2021-06-09] MEDS: amLODIPine BESYLATE 5 MG TAB PO SCH (21:16)
[2021-06-09] MEDS: ATORVASTATIN 40 MG TAB PO SCH (21:16)
[2021-06-09] MEDS: MELATONIN 3 MG TAB PO PRN (23:03)
[2021-06-10] MEDS: PANTOprazole 40 MG TAB PO SCH (07:51)
[2021-06-10] MEDS: MULTIVITAMIN TAB PO SCH (07:52)
[2021-06-10] MEDS: BACLOFEN 10 MG TAB PO SCH ×4 (07:52→21:25)
[2021-06-10] MEDS: LACTOBACILLUS ACIDOPHILUS 1 GM PACK PO SCH ×2 (07:52→21:24)
[2021-06-10] MEDS: FAMOTIDINE 20 MG TAB PO SCH ×2 (07:53→21:23)
[2021-06-10] MEDS: FUROSEMIDE 80 MG TAB PO SCH ×2 (07:53→18:05)
[2021-06-10] MEDS: ESCITALOPRAM OXALATE 20 MG TAB PO SCH (07:53)
[2021-06-10] MEDS: GABAPENTIN 400 MG CAP PO SCH ×2 (07:53→21:24)
[2021-06-10] MEDS: dexAMETHasone 6 MG in SYRINGE 0 ML IV SCH (07:53)
[2021-06-10] MEDS: MEDICAL MARIJUANA PO SCH ×2 (07:54→20:36)
[2021-06-10] MEDS: rOPINIRole HCL 1 MG TABLET PO SCH ×4 (07:54→21:26)
[2021-06-10] MEDS: INSULIN ASPART 100 UNITS/ML 3 ML PEN SC SCH ×4 (08:54→21:21)
[2021-06-10] MEDS: INSULIN GLARGINE SOLOSTAR 100 UNITS/ML 3 ML PEN SC SCH ×2 (08:55→21:22)
[2021-06-10] MEDS: INSULIN HUMAN NPH SC SCH (08:56)
[2021-06-10] MEDS: tiZANidine HCL 4 MG TABLET PO SCH ×2 (09:15→21:23)
--- NOTE | 2021-06-10 11:17 | Pharmacy Report ---
Pharmacy Glycemic Short Note 2 - Date of Service June 10, 2021 - Glycemic Short BSG Results (Last 24 hours): 06/09/21 06/09/21 06/09/21 12:20 17:14 20:36 POC Glucose 209 H 179 H 179 H 06/10/21 08:11 POC Glucose 128 H OUTPATIENT ANTIDIABETIC REGIMEN: * Novolin 70/30 premixed insulin 56units SQ BIDM * Metformin 1,000mg PO BIDM * A1c = 8.4% on 06/05/21 ASSESSMENT: 06/10/21 * Patient's BSGs yesterday were [phone] mg/dL and fasting today was 128 mg/dL. * Patient received 208 units of insulin (130 units of basal - 80 units of Lantus and 50 units of NPH plus 78 units of bolus) * Fasting okay so continue Lantus 40 units BID. * Lower dose of NPH given yesterday so will continue NPH 55 units. Novolog significantly tightened yesterday so will continue. 06/09 * Patient's BSGs yesterday were [phone] mg/dL and fasting today was 107 mg/dL. * Patient received 203 units of insulin (130 units of basal - 80 units of Lantus and 50 units of NPH plus 73 units of bolus) * Fasting okay so continue Lantus 40 units BID. * BSGs trend up throughout the day so increasing NPH slightly but tighten Novolog. 06/08 * Patient received 185 units of insulin yesterday, of which 80 units were Lantus and 45 units NPH to cover steroids * Fasting BSG 152 mg/dL - continue same basal insulin * Blood sugars rising throughout the day, increase NPH again and tighten CR further 06/07 * Patient received 174 units of insulin yesterday, of which 80 units were Lantus and 40 units NPH to cover steroids * Fasting BSG 129 mg/dL - plan to continue same basal insulin * NPH increased and CR tightened this AM to better cover BSGs throughout the day 06/06 * Patient received 196 units of insulin yesterday, of which 80 units were Lantus and 30 units NPH to cover steroids * Fasting BSG 153 mg/dL - plan to continue same basal insulin * NPH increased this AM to better cover BSGs throughout the day * Lunch BSG trending downward, may scale back slightly on CR 06/05 * 60yo T2DM male with adequate outpatient control given age/co-morbidities * Pt with sustained severe hyperglycemia secondary to illness (covid, UTI) and high dose IV steroids with dexamethasone * Outpatient pre-mixed insulin held on admission - changed to SQ basal bolus with Lantus + NovoLog at significantly reduced dosing. * Outpatient basal insulin = 40 units BID (70% of 56 units). Will continue with basal insulin dosing of 40 units BID * Will add weight based NPH for steroid induced hyperglycemia with DXM. Start at 0.3-0.4 units/kg adjusted body weight and titrate based on BSG trends. PLAN FOR INPATIENT GLYCEMIC CONTROL: * Hold outpatient diabetes medications * Basal insulin * Lantus 40 units SQ BID * Steroid induced hyperglycemia * NPH 55 units SQ daily with dexamethasone * Bolus insulin * NovoLog per scale ACHS or Q6hrs while NPO * Goal Range: Low 110 mg/dL - High 140 mg/dL * Correction Factor: 8 mg/dL/unit * Nutritional / Prandial insulin per carb ratio of 1 unit per 1.5 grams CHO consumed PLAN FOR DISCHARGE: * Patient's HBA1C currently is 8.4% which is above goal of <8% for his comorbidities. * Recommend working with outpatient provider to optimize insulin regimen by checking BSG at least twice per day at varying times per day then adjusting insulin to goal blood sugars. * It is currently difficult to estimate outpatient needs as patient is currently on steroids.
--- NOTE | 2021-06-10 13:08 | Hospitalist Progress Note ---
Date of Service June 10, 2021 Assessment & Plan (1) Acute hypoxemic respiratory failure: Plan: COVID-19 pneumonia Present on admission with SOB, diarrhea and body aches Tested positive with COVID 19 CXR showed small hazy airspace opacities within the lung bases likely representing a viral pneumonia. Currently on dexamethasone. Will complete 10 day therapy tomorrow Completed remdesivir 06/07/21. Has been weaned off to room air. Uses 2 L/min nasal oxygen at bedtime Recurrent UTI Urine cx grew pseudomonas Based on evaluation of previous cultures, patient having neurogenic bladder and being on chronic Martinez, I think this is likely from colonization. Antibiotics completed Patient reports that his Martinez cath gets changed every second week of the month and last change was second week of this month. Diarrhea Mostly due to COVID 19 Stool negative for Cdiff Resolved Diabetes Most recent hab1c 7.9 on 04/26 Pharm on board with glycemic control ROBERT on CKD Creatinine on admission 1.6 Last Cr 1.27 Continue home lasix Hx neurogenic bladder Patient is paraplegic secondary to traumatic cervical spinal cord injury Stable Hx DVT On coumadin Patient reported that before hospitalization, he was recently told to include wednesday on days he gets 7.5mg in addition to usual 7.5mg on MWF. 5mg other days Check INR Full code Patient's requesting updates providers. Cb Rody Jennifer, contact #[phone]. Plan: Patient's recently discharged home for COVID 19. She is not able to take care of him and patient's home caregivers will not resume till Wednesday. Even then, cannot take care of him when caregivers are not available at this time as she recovers. Hence CM is working on a short respite stay in a nursing facility until able to go home Admission and Anticipated Discharge Date Admission Date: June 02, 2021 Review of Systems Eyes: + worsening vision Ear, Nose, Mouth, Throat: No sore throat Respiratory: No cough at this time. No shortness of breath Cardiovascular: no chest pain and no dyspnea Gastrointestinal: no abdominal pain, no nausea and no vomiting Musculoskeletal: Paralysis in both legs Neurologic: + paralysis (In LE); no dizziness, no headache(s) and no confusion Psychiatric: no depression and no anxiety Physical Exam Constitutional: + obese; no acute distress Eyes: PERRL, conjunctivae normal, anicteric sclerae ENMT: external ear and nose normal, oropharynx normal Respiratory: normal respiratory effort, lungs clear to auscultation Gastrointestinal (Abdomen): normal bowel sounds, soft, nontender, no hepatosplenomegaly Musculoskeletal: Power is 0/5 in LE and 4/5 in UE Neurologic: PERRL, EOMI, accommodation nl, no face palsy, no dysarthria Psychiatric: A+Ox3, euthymic affect Results & Data Results & Data ([facility]) Vital Signs (Past 12 Hours) Vital Signs Temp Pulse Resp BP Pulse Ox 06/10/21 07:09 36.5 C 65 17 100/61 98 Laboratory Results Abnormal lab results 06/09/21 06/09/21 06/10/21 Range/Units 17:14 20:36 08:11 POC Glucose 179 H 179 H 128 H (70-99) mg/dl 06/10/21 Range/Units 12:09 POC Glucose 201 H (70-99) mg/dl
[2021-06-10 18:28] LABS: INR 2.6 (0.9-1.1); Prothrombin Time 24.3 Seconds (9.0-12.0)
[2021-06-10] MEDS: WARFARIN SOD 5 MG TAB PO SCH (18:33)
[2021-06-10] MEDS: ATORVASTATIN 40 MG TAB PO SCH (21:23)
[2021-06-10] MEDS: amLODIPine BESYLATE 5 MG TAB PO SCH (21:24)
[2021-06-10] MEDS: MELATONIN 3 MG TAB PO PRN (23:07)
[2021-06-11] MEDS: FUROSEMIDE 80 MG TAB PO SCH (07:24)
[2021-06-11] MEDS: BACLOFEN 10 MG TAB PO SCH ×4 (07:25→20:42)
[2021-06-11] MEDS: LACTOBACILLUS ACIDOPHILUS 1 GM PACK PO SCH ×2 (07:25→20:41)
[2021-06-11] MEDS: rOPINIRole HCL 1 MG TABLET PO SCH ×4 (07:26→20:45)
[2021-06-11] MEDS: tiZANidine HCL 4 MG TABLET PO SCH ×2 (07:26→20:43)
[2021-06-11] MEDS: FAMOTIDINE 20 MG TAB PO SCH ×2 (07:26→20:43)
[2021-06-11] MEDS: PANTOprazole 40 MG TAB PO SCH (07:27)
[2021-06-11] MEDS: MULTIVITAMIN TAB PO SCH (07:28)
[2021-06-11] MEDS: ESCITALOPRAM OXALATE 20 MG TAB PO SCH (07:28)
[2021-06-11] MEDS: GABAPENTIN 400 MG CAP PO SCH ×2 (07:28→20:43)
[2021-06-11 07:29] LABS: INR 2.7 (0.9-1.1); Prothrombin Time 25.6 Seconds (9.0-12.0)
[2021-06-11] MEDS: MEDICAL MARIJUANA PO SCH ×2 (07:37→20:46)
[2021-06-11] MEDS ORDERED: dexAMETHasone 1 MG TAB PO SCH (09:00)
[2021-06-11] MEDS ORDERED: INSULIN GLARGINE SOLOSTAR 100 UNITS/ML 3 ML PEN SC SCH (09:00)
[2021-06-11] MEDS ORDERED: INSULIN HUMAN NPH SC SCH (09:00)
[2021-06-11] MEDS: INSULIN ASPART 100 UNITS/ML 3 ML PEN SC SCH ×4 (09:07→20:47)
[2021-06-11] MEDS ORDERED: INSULIN HUMAN NPH SC ONE (12:30)
--- NOTE | 2021-06-11 16:20 | Hospitalist Progress Note ---
Date of Service June 11, 2021 Assessment & Plan (1) Acute hypoxemic respiratory failure: Plan: Acute on chronic respiratory failure with hypoxia Chronic oxygen dependency--on 2 L at bedtime COVID-19 pneumonia CXR showed small hazy airspace opacities within the lung bases likely representing a viral pneumonia. Completed remdesivir, dexamethasone course Medically saturating well on room air Continue supplemental oxygen 2 L at bedtime Recurrent UTI Urine cx grew pseudomonas Based on evaluation of previous cultures, patient having neurogenic bladder and being on chronic Martinez, likely Colonization. Antibiotic course completed Needs Suprapubic Cath changed every second week of the month Diarrhea Mostly due to COVID 19 Stool negative for Cdiff Resolved Diabetes Mellitus Most recent hab1c 7.9 on 04/26 Appreciate Pharmacy help with glycemic management ROBERT on CKD Creatinine on admission 1.6 Resolved Continue lasix Monitor renal function Hx neurogenic bladder 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 Stable Hx DVT Continue Coumadin Monitor INR: 2.7 Code Status Full code Plan: Patient's recently discharged home for COVID 19. She is not able to take care of him and patient's home caregivers will not resume till Wednesday. Even then, cannot take care of him when caregivers are not available at this time as she recovers. Hence CM is working on a short respite stay in a nursing facility until able to go home Admission and Anticipated Discharge Date Admission Date: June 02, 2021 Subjective Patient is seen and examined at bedside Has only minimal cough Denies dyspnea, dizziness, nausea, abdominal pain No new complaints Review of Systems Review of Systems: All systems reviewed & are unremarkable except as noted in Subjective Physical Exam Physical Exam: Physical Exam: Vitals signs as noted above General Appearance:Morbidly Obese, no apparent distress Head: normocephalic, Atraumatic Eyes: normal inspection, EOMI Neck: supple, Trachea midline Respiratory/Chest: Normal breath sounds, CTA Cardiovascular: S1, S2, No murmur Abdomen/GI:Soft, Non tender, Bowel sounds present Extremities/Musculoskeletal:normal inspection Neurologic/Psych:AAOX3, B/L Lower extremity paraplegia Skin: normal color, warm Results & Data Results & Data ([facility]) Vital Signs (Past 12 Hours) Vital Signs Temp Pulse Resp BP Pulse Ox 06/11/21 15:46 36.8 C 79 16 162/81 H 95 06/11/21 07:56 36.7 C 62 16 128/79 93
[2021-06-11] MEDS: WARFARIN SOD 7.5 MG TAB PO SCH (16:24)
[2021-06-11] MEDS: ACETAMINOPHEN 325 MG TAB PO PRN (16:32)
[2021-06-11] MEDS: FUROSEMIDE 40 MG TAB PO SCH (16:54)
[2021-06-11] MEDS ORDERED: INSULIN HUMAN REGULAR PER UNIT 10 UNITS in SYRINGE 9.9 ML IV ONE (17:45)
[2021-06-11] MEDS: INSULIN HUMAN NPH SC SCH (18:04)
[2021-06-11] MEDS: ATORVASTATIN 40 MG TAB PO SCH (20:42)
[2021-06-11] MEDS: SENNA 8.6 MG TAB PO SCH (20:42)
[2021-06-11] MEDS: amLODIPine BESYLATE 5 MG TAB PO SCH (20:44)
[2021-06-11] MEDS ORDERED: INSULIN ASPART 100 UNITS/ML 3 ML PEN SC SCH (21:00)
[2021-06-11] MEDS: MELATONIN 3 MG TAB PO PRN (22:54)
[2021-06-12] MEDS ORDERED: INSULIN ASPART 100 UNITS/ML 3 ML PEN SC ONE (02:00)
[2021-06-12 07:50] LABS: INR 2.8 (0.9-1.1); Prothrombin Time 26.3 Seconds (9.0-12.0)
[2021-06-12] MEDS: FUROSEMIDE 40 MG TAB PO SCH ×2 (09:36→17:12)
[2021-06-12] MEDS: GABAPENTIN 400 MG CAP PO SCH ×2 (09:36→21:20)
[2021-06-12] MEDS: BACLOFEN 10 MG TAB PO SCH ×4 (09:36→21:17)
[2021-06-12] MEDS: tiZANidine HCL 4 MG TABLET PO SCH ×2 (09:37→21:17)
[2021-06-12] MEDS: FAMOTIDINE 20 MG TAB PO SCH ×2 (09:37→21:17)
[2021-06-12] MEDS: SENNA 8.6 MG TAB PO SCH (09:37)
[2021-06-12] MEDS: PANTOprazole 40 MG TAB PO SCH (09:37)
[2021-06-12] MEDS: MULTIVITAMIN TAB PO SCH (09:37)
[2021-06-12] MEDS: LACTOBACILLUS ACIDOPHILUS 1 GM PACK PO SCH ×2 (09:37→21:18)
[2021-06-12] MEDS: ESCITALOPRAM OXALATE 20 MG TAB PO SCH (09:38)
[2021-06-12] MEDS: rOPINIRole HCL 1 MG TABLET PO SCH ×4 (09:38→21:18)
[2021-06-12] MEDS: MEDICAL MARIJUANA PO SCH ×2 (09:38→21:26)
[2021-06-12] MEDS: INSULIN ASPART 100 UNITS/ML 3 ML PEN SC SCH ×4 (09:43→21:20)
[2021-06-12] MEDS: INSULIN HUMAN NPH SC SCH ×2 (09:44→18:09)
--- NOTE | 2021-06-12 11:43 | Pharmacy Report ---
Pharmacy Glycemic Short Note 2 - Date of Service June 12, 2021 - Glycemic Short BSG Results (Last 24 hours): 06/11/21 06/11/21 06/11/21 11:47 17:19 20:29 POC Glucose 302 H* 341 H* 304 H* 06/11/21 06/12/21 06/12/21 20:33 01:56 08:26 POC Glucose 292 H 138 H 107 H OUTPATIENT ANTIDIABETIC REGIMEN: * Novolin 70/30 premixed insulin 56units SQ BIDM * Metformin 1,000mg PO BIDM * A1c = 8.4% on 06/05/21 ASSESSMENT: 06/12: * Patient received total 199 units of insulin yesterday; 75 units basal NPH + 20 units basal Lantus + 104 units of bolus. * Patient received Dexamethasone 6 mg PO yesterday AM and then steroid was discontinued. Anticipate BSGs should be trending down today * Fasting BSG today was 107 mg/dl. On previous hospital admission, patient received NPH BID dose scale with AM and dinner meals with good success. Utilized the same scale and regimen again. * Since steroid is d/c'd, loosened Novolog parameters. 06/10/21 * Patient's BSGs yesterday were [phone] mg/dL and fasting today was 128 mg/dL. * Patient received 208 units of insulin (130 units of basal - 80 units of Lantus and 50 units of NPH plus 78 units of bolus) * Fasting okay so continue Lantus 40 units BID. * Lower dose of NPH given yesterday so will continue NPH 55 units. Novolog significantly tightened yesterday so will continue. 06/09 * Patient's BSGs yesterday were [phone] mg/dL and fasting today was 107 mg/dL. * Patient received 203 units of insulin (130 units of basal - 80 units of Lantus and 50 units of NPH plus 73 units of bolus) * Fasting okay so continue Lantus 40 units BID. * BSGs trend up throughout the day so increasing NPH slightly but tighten Novolog. 06/08 * Patient received 185 units of insulin yesterday, of which 80 units were Lantus and 45 units NPH to cover steroids * Fasting BSG 152 mg/dL - continue same basal insulin * Blood sugars rising throughout the day, increase NPH again and tighten CR further 06/07 * Patient received 174 units of insulin yesterday, of which 80 units were Lantus and 40 units NPH to cover steroids * Fasting BSG 129 mg/dL - plan to continue same basal insulin * NPH increased and CR tightened this AM to better cover BSGs throughout the day 06/06 * Patient received 196 units of insulin yesterday, of which 80 units were Lantus and 30 units NPH to cover steroids * Fasting BSG 153 mg/dL - plan to continue same basal insulin * NPH increased this AM to better cover BSGs throughout the day * Lunch BSG trending downward, may scale back slightly on CR 06/05 * 60yo T2DM male with adequate outpatient control given age/co-morbidities * Pt with sustained severe hyperglycemia secondary to illness (covid, UTI) and high dose IV steroids with dexamethasone * Outpatient pre-mixed insulin held on admission - changed to SQ basal bolus with Lantus + NovoLog at significantly reduced dosing. * Outpatient basal insulin = 40 units BID (70% of 56 units). Will continue with basal insulin dosing of 40 units BID * Will add weight based NPH for steroid induced hyperglycemia with DXM. Start at 0.3-0.4 units/kg adjusted body weight and titrate based on BSG trends. PLAN FOR INPATIENT GLYCEMIC CONTROL: * Hold outpatient diabetes medications * Basal insulin * Lantus discontinued * NPH 30-40 units scale based on BSG, BID with breakfast and dinner meals. * Bolus insulin: loosened CF/CR * NovoLog per scale ACHS or Q6hrs while NPO * Goal Range: Low 110 mg/dL - High 140 mg/dL * Correction Factor: 10 mg/dL/unit * Nutritional / Prandial insulin per carb ratio of 1 unit per 5 grams CHO consumed PLAN FOR DISCHARGE: * Patient's HBA1C currently is 8.4% which is above goal of <8% for his comorbidities. * Recommend working with outpatient provider to optimize insulin regimen by checking BSG at least twice per day at varying times per day then adjusting insulin to goal blood sugars.
--- NOTE | 2021-06-12 15:05 | Hospitalist Progress Note ---
Date of Service June 12, 2021 Assessment & Plan (1) Acute hypoxemic respiratory failure: Plan: Acute on chronic respiratory failure with hypoxia Chronic oxygen dependency--on 2 L at bedtime COVID-19 pneumonia CXR showed small hazy airspace opacities within the lung bases likely representing a viral pneumonia. Completed remdesivir, dexamethasone course saturating well on room air Continue supplemental oxygen 2 L at bedtime Plan to discharge home tomorrow Recurrent UTI Urine cx grew pseudomonas Based on evaluation of previous cultures, patient having neurogenic bladder and being on chronic Martinez, likely Colonization. 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 Stable Hx DVT Continue Coumadin Monitor INR: 2.8 today Code Status Full code Disposition Home with Home Health Admission and Anticipated Discharge Date Admission Date: June 02, 2021 Subjective Patient is seen and examined at bedside No new complaints States feeling better today Denies dyspnea, dizziness, nausea, abdominal pain Eager to get discharged Review of Systems Review of Systems: All systems reviewed & are unremarkable except as noted in Subjective Physical Exam Physical Exam: Physical Exam: Vitals signs as noted above General Appearance:Morbidly Obese, no apparent distress Head: normocephalic, Atraumatic Eyes: normal inspection, EOMI Neck: supple, Trachea midline Respiratory/Chest: Normal breath sounds, CTA Cardiovascular: S1, S2, No murmur Abdomen/GI:Soft, Non tender, Bowel sounds present Extremities/Musculoskeletal:normal inspection Neurologic/Psych:AAOX3, B/L Lower extremity paraplegia Skin: normal color, warm Results & Data Results & Data ([facility]) Vital Signs (Past 12 Hours) Vital Signs Temp Pulse Resp BP Pulse Ox 06/12/21 14:23 36.8 C 71 18 133/69 94 06/12/21 07:46 36.4 C L 60 16 131/71 98
[2021-06-12] MEDS: WARFARIN SOD 5 MG TAB PO SCH (17:13)
[2021-06-12] MEDS: ATORVASTATIN 40 MG TAB PO SCH (21:17)
[2021-06-12] MEDS: amLODIPine BESYLATE 5 MG TAB PO SCH (21:18)
[2021-06-12] MEDS: MELATONIN 3 MG TAB PO PRN (23:09)
[2021-06-13 07:20] VITALS: BP 129/64; PULSE 84; TEMP 98.6
[2021-06-13 08:25] VITALS: O2SAT 95
[2021-06-13] MEDS: LACTOBACILLUS ACIDOPHILUS 1 GM PACK PO SCH (08:54)
[2021-06-13 08:55] LABS: INR 2.5 (0.9-1.1); Prothrombin Time 23.5 Seconds (9.0-12.0)
[2021-06-13] MEDS: ESCITALOPRAM OXALATE 20 MG TAB PO SCH (08:56)
[2021-06-13] MEDS: GABAPENTIN 400 MG CAP PO SCH (08:56)
[2021-06-13] MEDS: FUROSEMIDE 40 MG TAB PO SCH (08:56)
[2021-06-13] MEDS: PANTOprazole 40 MG TAB PO SCH (08:56)
[2021-06-13] MEDS: SENNA 8.6 MG TAB PO SCH (08:57)
[2021-06-13] MEDS: MULTIVITAMIN TAB PO SCH (08:57)
[2021-06-13] MEDS: BACLOFEN 10 MG TAB PO SCH ×2 (08:57→12:36)
[2021-06-13] MEDS: tiZANidine HCL 4 MG TABLET PO SCH (08:57)
[2021-06-13] MEDS: rOPINIRole HCL 1 MG TABLET PO SCH ×2 (08:57→12:36)
[2021-06-13] MEDS: FAMOTIDINE 20 MG TAB PO SCH (08:57)
[2021-06-13] MEDS: MEDICAL MARIJUANA PO SCH (08:58)
[2021-06-13] MEDS: INSULIN ASPART 100 UNITS/ML 3 ML PEN SC SCH (09:00)
[2021-06-13] MEDS: INSULIN HUMAN NPH SC SCH (09:01)
--- NOTE | 2021-06-13 10:30 | Hospitalist Progress Note ---
Date of Service June 13, 2021 Assessment & Plan (1) Acute hypoxemic respiratory failure: Plan: Acute on chronic respiratory failure with hypoxia Chronic oxygen dependency--on 2 L at bedtime COVID-19 pneumonia CXR showed small hazy airspace opacities within the lung bases likely representing a viral pneumonia. Completed remdesivir, dexamethasone course saturating well on room air Continue supplemental oxygen 2 L at bedtime Plan to discharge home with Home Health today Recurrent UTI Urine cx grew pseudomonas Based on evaluation of previous cultures, patient having neurogenic bladder and being on chronic Martinez, likely Colonization. 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 Stable Hx DVT Continue Coumadin Monitor INR: 2.5 today Code Status Full code Disposition Home with Home Health Admission and Anticipated Discharge Date Admission Date: June 02, 2021 Subjective Patient is seen and examined at bedside States having mild headache but otherwise feels well Cough much improved No new complaints Denies dyspnea, dizziness, nausea, abdominal pain Review of Systems Review of Systems: All systems reviewed & are unremarkable except as noted in Subjective Physical Exam Physical Exam: Physical Exam: Vitals signs as noted above General Appearance:Morbidly Obese, no apparent distress Head: normocephalic, Atraumatic Eyes: normal inspection, EOMI Neck: supple, Trachea midline Respiratory/Chest: Normal breath sounds, CTA Cardiovascular: S1, S2, No murmur Abdomen/GI:Soft, Non tender, Bowel sounds present Extremities/Musculoskeletal:normal inspection Neurologic/Psych:AAOX3, B/L Lower extremity paraplegia Skin: normal color, warm Results & Data Results & Data ([facility]) Vital Signs (Past 12 Hours) Vital Signs Temp Pulse Resp BP BP Pulse Ox Pulse Ox 06/13/21 08:20 95 06/13/21 07:19 37.0 C 84 16 129/64 96 06/12/21 22:30 37.2 C 81 20 120/65 92
--- NOTE | 2021-06-13 13:24 | Discharge Summary ---
Date of Service June 13, 2021 Admission HPI Per Admitting Provider History obtained from patient and records. 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 dif Last confinement November 2020 for metabolic encephalopathy secondary to multidrug- resistant Pseudomonas aeruginosa. Patient with frontal headache, sinus congestion, postnasal drip, body aches, nausea diarrhea symptoms for a few days. Dry cough symptoms without chest pain, S OB. Patient also with watery ostomy output without abdominal pain. found to be COVID-19 positive to date. Outpatient shoe caser notified of temporary shelter care search until patient better as home health unable to provide care given patient 's COVID-19 illness. Patient completed COVID-19 vaccination. Patient brought to the ER along with for evaluation. O2 sats 80s on room air at 1 point. IV Decadron given at the ER. MEDICAL HISTORY: As above. SURGICAL HISTORY: Kidney stone procedures, suprapubic catheter placement, neck surgery, IVC filter placement, ostomy//bowel surgery FAMILY HISTORY: DM, prostate cancer PERSONAL SOCIAL HISTORY: Nonsmoker. No chronic intake of alcoholic beverages. On disability. Principal Diagnosis Acute on chronic respiratory failure with hypoxia COVID-19 pneumonia Acute kidney injury Discharge Data Allergies Allergy/AdvReac Type Severity Reaction Status Date / Time codeine Allergy Severe THROAT Verified 06/02/21 20:28 SWELLS latex Allergy Intermediate welts Verified 06/02/21 20:28 piperacillin Allergy Intermediate RASH Verified 06/02/21 20:28 Sulfa (Sulfonamide Allergy Intermediate HIVES Verified 06/02/21 20:28 Antibiotics) tazobactam Allergy Intermediate RASH Verified 06/02/21 20:28 aztreonam Allergy Unknown unknown Verified 06/02/21 20:28 lactose AdvReac Intermediate GI symptoms Verified 06/02/21 20:28 metoclopramide [From Reglan] AdvReac Mild lethargy Verified 06/02/21 20:28 Consultations 06/02/21 19:09 ED Decision to Admit Stat Hospital Course (1) Acute hypoxemic respiratory failure: Acute on chronic respiratory failure with hypoxia Chronic oxygen dependency--on 2 L at bedtime COVID-19 pneumonia CXR showed small hazy airspace opacities within the lung bases likely representing a viral pneumonia. Completed remdesivir, dexamethasone course saturating well on room air Continue supplemental oxygen 2 L at bedtime Plan to discharge home with Home Health today Recurrent UTI Urine cx grew pseudomonas Based on evaluation of previous cultures, patient having neurogenic bladder and being on chronic Martinez, likely Colonization. 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 Stable Hx DVT Continue Coumadin Monitor INR: 2.5 today Code Status Full code Disposition Home with Home Health Total Time Total Time Spent Total Time Spent (In Minutes): 43 minutes Discharge Plan Discharge Items Patient Disposition: Home - Home Health Services Reason For Visit: RESP FAILURE, COVID Discharge Diagnosis: Acute on chronic respiratory failure with hypoxia COVID-19 pneumonia Acute kidney injury Activity: Per Instructions section Exercise/Sports: Gradually increase as tolerated Non-emergency contact: Primary Care Provider Call non-emergency contact if: you have any medication questions, your symptoms worsen, your pain is concerning for you and you have a fever Follow-up/Referrals: Wilder Stanford MD [Primary Care Provider] - (Date & Time 06/20/2021 12:00 PM Provider Maureen Coppola MD Department Family Medicine [facility] ) Diet: Carb Consistent or DM2, Heart Healthy and Lactose Intolerant Addtl Attending Provider Instructions: Follow-up with your primary care physician on 06/20/2021 12:00 PM Follow-up with your lab associate in 3 weeks as advised. Seek immediate medical attention if your symptoms reoccur or worsen Please take all medications as instructed on discharge list below. Please call if you have any questions or problems. You can reach a [facility] hospitalist on duty at [facility] 24 hours a day by calling [phone] Home Isolation COVID-19 Instructions The following information about Home Isolation is from the CDC Website: https://www.cdc.gov/coronavirus/2019-ncov/hcp/afugggpb-qdexbic-znxfei.html Stay home except to get medical care People who are mildly ill with COVID-19 are able to isolate at home during their illness. You should restrict activities outside your home, except for getting medical care. Do not go to work, school, or public areas. Avoid using public transportation, ride-sharing, or taxis. Separate yourself from other people and animals in your home People: As much as possible, you should stay in a specific room and away from other people in your home. Also, you should use a separate bathroom, if available. Animals: You should restrict contact with pets and other animals while you are sick with COVID-19, just like you would around other people. Although there have not been reports of pets or other animals becoming sick with COVID-19, it is still recommended that people sick with COVID-19 limit contact with animals until more information is known about the virus. When possible, have another member of your household care for your animals while you are sick. If you are sick with COVID-19, avoid contact with your pet, including petting, snuggling, being kissed or licked, and sharing food. If you must care for your pet or be around animals while you are sick, wash your hands before and after you interact with pets and wear a face mask. Call ahead before visiting your doctor If you have a medical appointment, call the healthcare provider and tell them that you have or may have COVID-19. This will help the healthcare providers office take steps to keep other people from getting infected or exposed. Wear a face mask You should wear a face mask when you are around other people (e.g., sharing a room or vehicle) or pets and before you enter a healthcare providers office. If you are not able to wear a face mask (for example, because it causes trouble breathing), then people who live with you should not stay in the same room with you, or they should wear a face mask if they enter your room. Cover your coughs and sneezes Cover your mouth and nose with a tissue when you cough or sneeze. Throw used tis sues in a lined trash can. Immediately wash your hands with soap and water for at least 20 seconds or, if soap and water are not available, clean your hands with an alcohol-based hand business services specialist sales that contains at least 60% alcohol. Clean your hands often Wash your hands often with soap and water for at least 20 seconds, especially after blowing your nose, coughing, or sneezing; going to the bathroom; and before eating or preparing food. If soap and water are not readily available, use an alcohol-based hand business services specialist sales with at least 60% alcohol, covering all surfaces of your hands and rubbing them together until they feel dry. Soap and water are the best option if hands are visibly dirty. Avoid touching your eyes, nose, and mouth with unwashed hands. Avoid sharing personal household items You should not share dishes, drinking glasses, cups, eating utensils, towels, or bedding with other people or pets in your home. After using these items, they should be washed thoroughly with soap and water. Clean all high-touch surfaces everyday High touch surfaces include counters, tabletops, doorknobs, bathroom fixtures, toilets, phones, keyboards, tablets, and bedside tables. Also, clean any surfaces that may have blood, stool, or body fluids on them. Use a household cleaning spray or wipe, according to the label instructions. Labels contain instructions for safe and effective use of the cleaning product including precautions you should take when applying the product, such as wearing gloves and making sure you have good ventilation during use of the product. Monitor your symptoms Seek prompt medical attention if your illness is worsening (e.g., difficulty breathing).Beforeseeking care, call your healthcare provider and tell them that you have, or are being evaluated for, COVID-19. Put on a face mask before you enter the facility. These steps will help the healthcare providers office to keep other people in the office or waiting room from getting infected or exposed. Ask your healthcare provider to call the local or state health department. Persons who are placed under active monitoring or facilitated self- monitoring should follow instructions provided by their local health department or occupational health professionals, as appropriate. When working with your local health department check their available hours. If you have a medical emergency and need to call 911, notify the dispatch personnel that you have, or are being evaluated for COVID-19. If possible, put on a face mask before emergency medical services arrive. Discontinuing home isolation Patients with confirmed COVID-19 should remain under home isolation precautions until the risk of secondary transmission to others is thought to be low. The decision to discontinue home isolation precautions should be made on a [id number] basis, in consultation with healthcare providers and state and local health departments. Coronavirus disease 2019 (COVID-19) is a virus that causes a respiratory illness. It is caused by a coronavirus called 2019 novel coronavirus (2019- nCoV). There are many types of coronavirus. Coronaviruses are a very common cause of bronchitis. They may sometimes cause lung infection(pneumonia). Symptoms can range from mild to severe respiratory illness. These viruses are also foundin some animals. COVID-19 was first found in people in [facility], in late 2018. In 2019, several cases of COVID-19 have been confirmed in the [place] Public health officials are working to find the source. How the virus spreads is not yet fully known. It may be spread through droplets of fluid that a person coughs or sneezes into the air. It may be spread if you touch a surface with virus on it, such as a handle or object, and then touch your mouth. What are the symptoms of COVID-19? Some people have no symptoms or mild symptoms. Symptoms may appear 2 to 14 days after contact with the virus. Symptoms can include: Fever Coughing Trouble breathing What are possible complications from COVID-19? In many cases, this virus can cause infection (pneumonia) in both lungs. In some cases, this can cause . How is COVID-19 diagnosed? Your healthcare provider will ask about your symptoms. He or she will also ask about your recent travel and contact with sick people. Testing for the virus is only done through the CDC. If yourhealthcare provider thinks you may have COVID- 19, he or she will work with your local health department and the CDC on testing. Follow all instructions from your healthcare provider. COVID-19 is diagnosed by: Nasal and throat swab. A cotton-tipped swab is wiped inside your nose or throat. This is done to check for viruses in your nasal mucus. Sputum culture. A small sample of mucus coughed from your lungs (sputum) is collected if you have a cough. It is checked for the virus. How is COVID-19 treated? There is currently no medicine to treat the virus. Treatment is done to help your body while it fights the virus. This is known as supportive care. Supportive care may include: Pain medicine. These include acetaminophen and ibuprofen. They are used to help ease pain and reduce fever. Bed rest. This helps your body fight the illness. For severe illness, you may need to stay in the hospital. Care during severe illness may include: IV (intravenous) fluids.These are given through a vein to help keep your body hydrated. Oxygen. Supplemental oxygen or ventilation with a breathing machine (ventilator) may be given. This is done to keep enough oxygen in your body. Are you at risk for COVID-19? If youve been to a place where people have been sick with this virus, you are at risk for infection. You are at risk if you: Recently traveled to an affected area Had contact with a sick person who recently traveled to this area Had contact with a person who was diagnosed with COVID-19 How can COVID-19 be prevented? There is no vaccine yet. The best prevention is to not have contact with the virus. The CDC advises that people should not travel to areas where there are COVID-19 outbreaks right now for any reason that is not urgent. To help prevent spreading the infection, wash your hands often, or use an alcohol-basedhand business services specialist sales. If you are in an area with COVID-19: Wash your hands often. Or use an alcohol-based hand business services specialist sales often. Only touch your eyes, nose, or mouth with clean hands. Dont have contact with people who are sick. Follow local instructions about being in public. For example, you may be told to not use public transport for a period of time. Stay away from markets that have live or animals. Wash your hands after touching any animals. Don't touch animals that may be sick. Dont share eating or drinking tools with sick people. Dont kiss someone who is sick. Clean surfaces often with disinfectant. If you were in an area with COVID-19 in the last 14 days: Call your healthcare provider. He or she can talk with local health staff to see what action may be needed. Follow all instructions from your provider. Take your temperature every morning and evening for at least 14 days. This is to check for fever. Keep a record of the readings. Keep watch for symptoms of the virus. Tell your provider right away if you have symptoms. If you were in an area with COVID-19 and have a fever or other symptoms: Dont panic. Keep in mind that other illnesses can cause similar symptoms. Stay away from work, school, and public places. Limit physical contact with family members. Don't kiss anyone or share eating or drinking utensils. Clean surfaces you touch with disinfectant. This is to help prevent the virus from spreading. Call your healthcare provider. Explain that you have been exposed to COVID-19 and have symptoms. Do this before going to any hospital. Wait for instructions. Keep in mind that healthcare staff may wear protective equipment such as masks, gowns, gloves, and eye protection. You may be put in a separate room. This is to prevent the possible virus from spreading. Tell the healthcare staff about recent travel. This includes local travel on public transport. Staff may need to find other people you have been in contact with. Follow all instructions the healthcare staff give you. If you have been diagnosed with COVID-19 Follow all instructions from your healthcare provider. Dont leave your home, except to get medical care. Call your healthcare providers office before going. They can prepare and give you instructions. This will help prevent the virus from spreading. Dont go to work, school, or public areas. Dont use public transport or taxis. Stay away from other people in your home. Have them wear face masks around you. Dont share household items or food. Wear a face mask if you can. This includes at home or in a medical facility. Cover your face with a tissue when you cough or sneeze. Throw the tissue away. Wash your hands. Wash your hands often. Caregivers should: Follow all instructions from healthcare staff. Wear a face mask and protective clothing as advised. Wash hands often. Keep track of the sick persons symptoms. Clean surfaces, fabrics, and laundry thoroughly. Keep other people away from the sick person. When to call your healthcare provider Call your healthcare provider: If youve recently traveled and have symptoms If you have been diagnosed with COVID-19 and your symptoms are worse To learn more To find out more about COVID-19, visit the CDC website at www.cdc.gov/coronavirus/2019-ncov/index.html. 3932-0030 [employer]. [address] [place] [address]. All rights reserved. This information is not intended as a substitute for professional medical care. Alw ays follow your healthcare professional's instructions. This information has been adapted from [employer] Pending Studies at Discharge: No Stand-Alone Forms: My [facility], Smoking Cessation Medications and DC Order Prescriptions: Continued warfarin 5 mg tablet 5 mg PO 3XWK RF: 0 escitalopram oxalate 20 mg tablet 20 mg PO QAM RF: 0 Novolin 70/30 U-100 Insulin 100 unit/mL (70-30) suspension 56 unit subcut BID RF: 0 atorvastatin 40 mg tablet 40 mg PO HS RF: 0 allopurinol 100 mg Tablet 100 mg PO BID RF: 0 ropinirole 1 mg Tablet 1 mg PO QID RF: 0 furosemide 40 mg Tablet 40 mg PO BID RF: 0 gabapentin 800 mg Tablet 800 mg PO BID RF: 0 ferrous gluconate 324 mg (38 mg iron) Tablet 324 mg PO QAM RF: 0 multivitamin Tablet 1 tab PO QAM RF: 0 pantoprazole 40 mg Tablet,Delayed Release (Dr/Ec) 40 mg PO QAM RF: 0 magnesium oxide 400 mg (241.3 mg magnesium) Tablet 400 mg PO BID RF: 0 baclofen 10 mg tablet 10 mg PO QID RF: 0 cyclobenzaprine 10 mg tablet 15 mg PO HS RF: 0 hyoscyamine sulfate 0.125 mg tablet 0.125 mg PO QPM RF: 0 tizanidine 4 mg tablet 4 mg PO BID RF: 0 potassium chloride 10 mEq tablet extended release 10 meq PO BIDM RF: 0 spironolactone [Aldactone] 25 mg tablet 25 mg PO QAM RF: 0 metformin [Glucophage] 1,000 mg tablet 1,000 mg PO BIDM RF: 0 Medical Marijuana See Rx Instructions .ROUTE .COMPLEX RF: 0 methenamine hippurate 1 gram Tablet 1 g PO BID 30 Days Qty: 60 RF: 2 famotidine [Acid Environmental Conservation Officer (famotidine)] 20 mg Tablet 20 mg PO BID RF: 0 ascorbic acid (vitamin C) [Vitamin C] 500 mg Tablet 250 mg PO TID RF: 0 zinc sulfate 50 mg zinc (220 mg) Capsule 50 mg PO QDL RF: 0 bethanechol chloride 5 mg Tablet 5 mg PO TID RF: 0 Lactobacillus acidoph-L.bulgar [Floranex] 1 million cell Tablet 1 tab PO BID RF: 0 nystatin-triamcinolone 100,000-0.1 unit/g-% Cream 1 applic TOPICAL BID RF: 0 nystatin 100,000 unit/gram Powder 1 applic TOPICAL BID PRN (Reason: Rash) RF: 0 ycrpmd-moic-ze dhuz-yc-tfuibnp 81.6-0.12-10.8 mg Tablet 1 tab PO QPM RF: 0 Novolin R Regular U-100 Insuln 100 unit/mL Solution 1 sliding scale dose SUBCUT USEASDIRECTD RF: 0 B-Uinznj-[id number]-B12 3-35-2 mg Tablet 1 tab PO BID RF: 0 triamcinolone acetonide 0.1 % Cream 1 applic TOPICAL BID PRN (Reason: Rash) RF: 0 acetaminophen 500 mg Capsule 1,000 mg PO Q6H PRN (Reason: Pain) RF: 0 menthol-zinc oxide [Calmoseptine] 0.44-20.6 % Ointment 1 applic TOPICAL QID PRN (Reason: Rash) RF: 0 warfarin 7.5 mg Tablet 7.5 mg PO 4XWK RF: 0 irbesartan 75 mg tablet 75 mg PO DAILY RF: 0 Discontinued cefdinir 300 mg capsule 300 mg PO BID RF: 0 Discharge Orders: Discharge Order (Routine); Ordered 06/13/21 Ordered By: Jose Frazier/Other Patient Handouts: A1C, Managing Type 2 Diabetes Admission Data Admit Date/Time: 06/02/21 19:47 Attending Provider: Jose Osullivan Admit Provider: Marlon Brandt Primary Care Provider: Wilder Stanford Other Providers: Edgar Lee ; Alireza Grubbs ; Marlon Brandt Other Interventions: Discharge Summary Assessment (RN) Last Done: 06/13/21 10:42
== END 2021-06-13 13:03 | disposition home health service (06) | DRG 177 ==
LOC: ED 15:19 → SUATTDRO 19:47 → 2S 19:47 → 2W 06-06 15:30 → 3W 06-07 04:00
DX: Z87.440 Personal history of urinary (tract) infections; Z86.718 Personal history of other venous thrombosis and embolism; J12.82 Pneumonia due to coronavirus disease 2019; A08.39 Other viral enteritis; N39.0 Urinary tract infection, site not specified; B96.5 Pseudomonas (aeruginosa) (mallei) (pseudomallei) as the cause of diseases classified elsewhere; Z79.4 Long term (current) use of insulin; S14.109S Unspecified injury at unspecified level of cervical spinal cord, sequela; D64.9 Anemia, unspecified; Z86.14 Personal history of Methicillin resistant Staphylococcus aureus infection; Z83.3 Family history of diabetes mellitus; G82.50 Quadriplegia, unspecified; Z80.42 Family history of malignant neoplasm of prostate; U07.1 COVID-19; Z93.51 Cutaneous-vesicostomy status; E78.5 Hyperlipidemia, unspecified; N17.9 Acute kidney failure, unspecified; I10 Essential (primary) hypertension; Z88.1 Allergy status to other antibiotic agents; E87.2 Acidosis; E11.9 Type 2 diabetes mellitus without complications; Z93.3 Colostomy status; Z91.040 Latex allergy status; Z79.899 Other long term (current) drug therapy; N31.9 Neuromuscular dysfunction of bladder, unspecified; Z88.2 Allergy status to sulfonamides; Z88.5 Allergy status to narcotic agent; Z99.81 Dependence on supplemental oxygen; J96.01 Acute respiratory failure with hypoxia

== ENCOUNTER 2021-06-14 10:00 | Inpatient (IN) ==
[2021-06-14] MEDS ORDERED: SODIUM CHLORIDE 0.9% 1000ML 1,000 ML IV ONE (10:43)
--- NOTE | 2021-06-14 10:48 | Emergency Department Note ---
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 difficile who presents to the emergency department after having syncopal episode this morning when they were attempting to get into his shower chair to bathe in the setting being admitted to [facility] for COVID-19 from 06/02-06/13 discharged yesterday afternoon. He denies any chest pain, shortness of breath, vomiting. He denies any change in his ostomy output. He reports he feels generalized weakness and body aches. He feels as though he is attempting to hydrate. On arrival the patient is chronically ill-appearing, fatigued but no acute distress, afebrile with blood pressure 80s-100s/60s and vital signs otherwise stable. He is mentating normally. EKG without overt acute ischemia. Chest x-ray negative for acute cardiopulmonary process. WBC 14.3K increased from discharge value.H/H similar to prior range of values. Platelets within normal limits. INR 1.5 subtherapeutic though patient does have an IVC filter. Chemistry without metabolic acidosis. Creatinine 1.4 increased from recent but within prior range of values. BUN/Cr > 30 c/w patient's clinically dry appearance. Electrolytes without significant abnormality. LFTs slightly elevated with AST 50 and ALT 118, nonspecific. Troponin negative/undet ectable. Lipase not elevated. TSH within normal limits. UA from the patient suprapubic catheter after bag was changed does demonstrate positive nitrites, 1+ leuk esterase and 10-30 WBCs. Patient was ordered for antibiotics with Cefepime given history of Pseudomonas. CT of the head negative for acute process. CT of the pelvis also negative for acute process. Note is made of chronic left gluteal decubiti with chronic erosion of ischial tuberosity. Reevaluation the patient was feeling improved after IV fluid hydration. However given the patient's syncopal episode in the setting of his recent COVID-19 admission and hypotension on arrival he agreed with plan for admission. [facility] for [facility]. Triage Nursing notes reviewed and agree them. Prior medical records reviewed Vital Signs: reviewed and remarkable for hypotension. Differential diagnosis: Vasovagal event, dehydration, infection, hypoglycemia, electrolyte abnormalitie s, cardiac sources, intracerebral event, pulmonary embolism, seizure, toxicologic, neurologic, as well as other pathologies. ER treatment provided: See below. Diagnostics interpreted by me: ECG: Normal sinus rhythm, 82 bpm, no ectopy, right bundle branch block, no overt ST elevation or depression, QTC 474, QRS 146. Cardiac Monitoring: An order for continuous cardiac monitoring was placed and d emonstrated Normal sinus rhythm, 82 bpm, no ectopy. Laboratory studies: See below Imaging studies: See below Consultation(s): Case was discussed with Dr. Osullivan, [facility] hospitalist, who will evaluate the patient for admission. 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 difficile who presents to the emergency department after having syncopal episode this morning when they were attempting to get into his shower chair to bathe in the setting being admitted to [facility] for COVID-19 from 06/02-06/13 discharged yesterday afternoon. He denies any chest pain, shortness of breath, vomiting. He denies any change in his ostomy output. He reports he feels generalized weakness and body aches. He feels as though he is attempting to hydrate. ROS: See above HPI for pertinent positives & negatives. A total of 10 systems reviewed and were otherwise negative. PAST MEDICAL HISTORY:See Below PAST SURGICAL HISTORY:See Below FAMILY HISTORY:See Below SOCIAL HISTORY:See Below HOME MEDICATIONS:See Below ALLERGIES:See Below VITALS:See Below PHYSICAL EXAMINATION: GENERAL: Awake, alert, chronically ill/fatigue-appearing, in no distress, BMI 47. HENT: Normocephalic, atraumatic. Oropharynx with dry mucous membranes and otherwise unremarkable. EYES: Normal conjunctiva. Sclera non-icteric. EOMI. No nystamgus. PEARRL. NECK: Supple. No nuchal rigidity. FROM. No JVD. RESPIRATORY: Clear to auscultation. CARDIAC: Regular rate, normal rhythm. Extremities warm and well perfused. Pulses equal. ABDOMEN: Soft, non-distended. No tenderness to palpation. No rebound or guarding. No masses. Left abdominal ostomy site c/d/i. Suprapubic catheter present. MUSCULOSKELETAL: Chest examination reveals no tenderness. The back is s ymmetrical on inspection without obvious abnormality. There is no CVA tenderness to palpation. No joint edema. LOWER EXTREMITIES: Calves are equal size bilaterally and non-tender. Mild BLE edema. No discoloration. NEURO: Baseline BLE paresis. Speech is fluent. SKIN: No rash or jaundice noted. Gian Montgomery MD Past Med/Surg History Medical History Asymptomatic bacteriuria Clostridium difficile infection (Unknown) CVA (cerebral vascular accident) DM type 2 (diabetes mellitus, type 2) Dyslipidemia Dysphagia Fever History of blood clots History of DVT (deep vein thrombosis) Hypertension Hypotension Ileus Kidney disease Leukocytosis Major depressive disorder, recurrent Obesity Occluded PICC line Positive urine culture Quadriplegia BRAIN INJURY 11 YRS AGO Seizure SIRS (systemic inflammatory response syndrome) Sleep apnea (Unknown) OXYGEN 2L/MIN NC HS Syncope 57 year old with know quadriplegia and new onset syncope with change in position UTI (urinary tract infection) RECENT [facility] ADMISION-D/C 12/06/20 Surgical History History of colonoscopy 2010 History of open reduction and internal fixation (ORIF) procedure LEFT FEMUR Insertion of inferior vena caval filter (Unknown) Lithotripsy (Unknown) "laser lithotripsy left ureteral stone 03/17/11 " S/P knee surgery S/P tonsillectomy Suprapubic cystostomy (Unknown) IN PLACE Family History Mother No pertinent family history Family history of diabetes mellitus Father Family hx of colon cancer Social History Smoking Status: Never smoker Second Hand Exposure: Yes (FATHER SMOKED); Hx Alcohol Use: No Hx Substance Use: No Preferred Language: Qatari Communication Ability: Effective Visual Impairment: No Limitations Certified Medical Assistant Required: No Beliefs That Will Affect Care: None marital status: Current Living Situation: Spouse current occupational status: disabled Feels Safe at Home: Yes Physical Activity Frequency Comment: QUADRAPLEGIA C4-5-ABLE TO MOVE ARMS, HANDS Assistive Devices: Oxygen - at Night Allergies Allergies Allergy/AdvReac Type Severity Reaction Status Date / Time codeine Allergy Severe THROAT Verified 06/14/21 11:17 SWELLS latex Allergy Intermediate welts Verified 06/14/21 11:17 piperacillin Allergy Intermediate RASH Verified 06/14/21 11:17 Sulfa (Sulfonamide Allergy Intermediate HIVES Verified 06/14/21 11:17 Antibiotics) tazobactam Allergy Intermediate RASH Verified 06/14/21 11:17 aztreonam Allergy Unknown unknown Verified 06/14/21 11:17 lactose AdvReac Intermediate GI symptoms Verified 06/14/21 11:17 metoclopramide [From Reglan] AdvReac Mild lethargy Verified 06/14/21 11:17 Home Meds Home Medications Medication Instructions Recorded Confirmed allopurinol 100 mg tablet 100 mg PO BID 05/07/18 06/14/21 ferrous gluconate 324 mg (38 mg 324 mg PO QAM 05/07/18 06/14/21 iron) tablet furosemide 40 mg tablet 40 mg PO BID 05/07/18 06/14/21 gabapentin 800 mg tablet 800 mg PO BID 05/07/18 06/14/21 magnesium oxide 400 mg (241.3 mg 400 mg PO BID 05/07/18 06/14/21 magnesium) tablet multivitamin 1 tab PO QAM 05/07/18 06/14/21 pantoprazole 40 mg tablet,delayed 40 mg PO QAM 05/07/18 06/14/21 release ropinirole 1 mg tablet 1 mg PO QID 05/07/18 06/14/21 escitalopram oxalate 20 mg tablet 20 mg PO QAM tab 08/21/19 06/14/21 insulin human U-100 NPH-regulr 56 unit SUBCUT BID 08/21/19 06/14/21 70-30 mix 100 unit/mL subcutaneous susp (Novolin 70/30 U-100 Insulin) warfarin 5 mg tablet 5 mg PO 3XWK tab 08/21/19 06/14/21 atorvastatin 40 mg tablet 40 mg PO HS 08/24/19 06/14/21 baclofen 10 mg tablet 10 mg PO QID 09/22/19 06/14/21 cyclobenzaprine 10 mg tablet 15 mg PO HS 03/01/20 06/14/21 hyoscyamine sulfate 0.125 mg tablet 0.125 mg PO QPM 03/01/20 06/14/21 potassium chloride 10 mEq 10 meq PO BIDM 03/01/20 06/14/21 tablet,extended release spironolactone 25 mg tablet 25 mg PO QAM 03/01/20 06/14/21 (Aldactone) tizanidine 4 mg tablet 4 mg PO BID 03/01/20 06/14/21 Medical Marijuana See Rx Instructions .ROUTE .COMPLEX 03/26/20 06/14/21 ascorbic acid (vitamin C) 500 mg 250 mg PO TID 12/03/20 06/14/21 tablet (Vitamin C) famotidine 20 mg tablet (Acid 20 mg PO BID 12/03/20 06/14/21 Director Of Assessment (famotidine)) zinc sulfate 50 mg zinc (220 mg) 50 mg PO QDL 12/03/20 06/14/21 capsule Lactobacillus acidoph-L.bulgaricus 1 tab PO BID 01/03/21 06/14/21 1 million cell tablet (Floranex) acetaminophen 500 mg capsule 1,000 mg PO Q6H PRN 01/03/21 06/14/21 bethanechol chloride 5 mg tablet 5 mg PO TID 01/03/21 06/14/21 insulin regular human 100 unit/mL 1 sliding scale dose SUBCUT 01/03/21 06/14/21 injection solution (Novolin R USEASDIRECTD Regular U-100 Insulin) mecobalamin-levomefolate 1 tab PO BID 01/03/21 06/14/21 calcium-pyridoxal phos 3 mg-35 mg-2 mg tablet ([id number]) menthol 0.44 %-zinc oxide 20.6 % 1 applic TOPICAL QID PRN 01/03/21 06/14/21 topical ointment (Calmoseptine) methenamin 81.6 mg-hyoscyam 0.12 1 tab PO QPM 01/03/21 06/14/21 mg-methblue 10.8 [id number] tablet nystatin 100,000 unit/gram topical 1 applic TOPICAL BID PRN 01/03/21 06/14/21 powder nystatin-triamcinolone 100,000 1 applic TOPICAL BID 01/03/21 06/14/21 unit/g-0.1 % topical cream triamcinolone acetonide 0.1 % 1 applic TOPICAL BID PRN 01/03/21 06/14/21 topical cream irbesartan 75 mg tablet 75 mg PO DAILY 06/02/21 06/14/21 warfarin 7.5 mg tablet 7.5 mg PO 4XWK 06/02/21 06/14/21 metformin 1,000 mg tablet 1,000 mg PO BIDM 06/14/21 06/14/21 Previous Rx's Medication Instructions Recorded methenamine hippurate 1 gram tablet 1 g PO BID 30 Days #60 tab 04/02/20 Results & Data (ED) Vital Signs Vital Signs - 24 hr 06/14/21 10:19 06/14/21 10:20 06/14/21 10:30 Temperature 37.3 C Temperature Source Oral Pulse Rate 79 80 81 Pulse Rate from SpO2 Sensor 80 Pulse Rhythm Regular Pulse Strength Normal Respiratory Rate 11 L 18 18 Respiratory Effort / Characteristics Non-Labored Respiratory Depth Normal Respiratory Pattern Regular Blood Pressure 104/64 104/64 85/73 L Blood Pressure Mean 77 77 77 Blood Pressure Position Lying Pulse Oximetry 93 90 Oxygen Delivery Method Room Air Oxygen Flow Rate Sepsis Recent Fever Within 48 Hours No Sepsis New/Unexplained Change in Mental Status No Sepsis Action Taken by Nursing No Action Required Oxygen Flow Rate - Titration Pulse Oximetry Post Tiitration 06/14/21 10:43 06/14/21 11:30 06/14/21 12:00 Temperature Temperature Source Pulse Rate 82 84 Pulse Rate from SpO2 Sensor 84 Pulse Rhythm Pulse Strength Respiratory Rate 9 L 18 Respiratory Effort / Characteristics Respiratory Depth Respiratory Pattern Blood Pressure 113/69 97/70 L Blood Pressure Mean 83 79 Blood Pressure Position Pulse Oximetry 90 94 Oxygen Delivery Method Room Air Nasal Cannula Oxygen Flow Rate 2 Sepsis Recent Fever Within 48 Hours Sepsis New/Unexplained Change in Mental Status Sepsis Action Taken by Nursing Oxygen Flow Rate - Titration Pulse Oximetry Post Tiitration 06/14/21 12:30 06/14/21 13:00 06/14/21 13:22 Temperature Temperature Source Pulse Rate 85 85 Pulse Rate from SpO2 Sensor 85 85 Pulse Rhythm Pulse Strength Respiratory Rate 13 14 Respiratory Effort / Characteristics Respiratory Depth Respiratory Pattern Blood Pressure 119/67 111/57 L Blood Pressure Mean 84 75 Blood Pressure Position Pulse Oximetry 92 90 85 L Oxygen Delivery Method Nasal Cannula Nasal Cannula Room Air Nasal Cannula Oxygen Flow Rate 2 2 0 Sepsis Recent Fever Within 48 Hours Sepsis New/Unexplained Change in Mental Status Sepsis Action Taken by Nursing Oxygen Flow Rate - Titration 2 Pulse Oximetry Post Tiitration 97 06/14/21 13:30 06/14/21 14:00 06/14/21 15:00 Temperature Temperature Source Pulse Rate 89 87 79 Pulse Rate from SpO2 Sensor 89 86 79 Pulse Rhythm Pulse Strength Respiratory Rate 10 L 13 15 Respiratory Effort / Characteristics Respiratory Depth Respiratory Pattern Blood Pressure 111/56 L 101/59 L 100/54 L Blood Pressure Mean 74 73 69 Blood Pressure Position Pulse Oximetry 97 96 97 Oxygen Delivery Method Nasal Cannula Nasal Cannula Oxygen Flow Rate 2 2 Sepsis Recent Fever Within 48 Hours Sepsis New/Unexplained Change in Mental Status Sepsis Action Taken by Nursing Oxygen Flow Rate - Titration Pulse Oximetry Post Tiitration 06/14/21 15:30 06/14/21 16:00 06/14/21 19:00 Temperature Temperature Source Pulse Rate 80 82 83 Pulse Rate from SpO2 Sensor 80 82 Pulse Rhythm Pulse Strength Respiratory Rate 15 15 18 Respiratory Effort / Characteristics Respiratory Depth Respiratory Pattern Blood Pressure 105/56 L 112/60 Blood Pressure Mean 72 77 Blood Pressure Position Pulse Oximetry 97 97 98 Oxygen Delivery Method Nasal Cannula Oxygen Flow Rate 2 Sepsis Recent Fever Within 48 Hours Sepsis New/Unexplained Change in Mental Status Sepsis Action Taken by Nursing Oxygen Flow Rate - Titration Pulse Oximetry Post Tiitration 06/14/21 20:00 Temperature Temperature Source Pulse Rate 80 Pulse Rate from SpO2 Sensor Pulse Rhythm Pulse Strength Respiratory Rate 16 Respiratory Effort / Characteristics Respiratory Depth Respiratory Pattern Blood Pressure Blood Pressure Mean Blood Pressure Position Pulse Oximetry 97 Oxygen Delivery Method Nasal Cannula Oxygen Flow Rate 2 Sepsis Recent Fever Within 48 Hours Sepsis New/Unexplained Change in Mental Status Sepsis Action Taken by Nursing Oxygen Flow Rate - Titration Pulse Oximetry Post Tiitration Laboratory Data Attestation: I reviewed the patient's lab results. Result diagrams: 06/14/21 11:55 06/14/21 11:55 Lab Results 06/14/21 06/14/21 06/14/21 Range/Units 11:55 11:55 11:55 WBC 14.36 H (4.8-10.8) K/uL RBC 4.16 L (4.7-6.1) M/uL Hgb 12.1 L (14.0-18.0) g/dL Hct 36.6 L (42-52) % MCV 88.0 (80-100) fL MCH 29.1 (25-34) pg MCHC 33.1 (32-36) g/dL RDW Std Deviation 52.2 H (36.4-46.3) fL RDW Coeff of Yoseph 16.2 H (11.5-14.5) % Plt Count 212 (130-400) K/uL MPV 10.3 (7.4-10.4) fL Immature Gran % (Auto) 0.4 % Neut % (Auto) 70.4 % Lymph % (Auto) 17.1 % [place] % (Auto) 10.7 % Eos % (Auto) 1.3 % Baso % (Auto) 0.1 % Neut # (Auto) 10.12 H (1.4-6.5) K/uL Lymph # (Auto) 2.45 (1.2-3.4) K/uL [place] # (Auto) 1.53 H (0.11-0.59) K/uL Eos # (Auto) 0.19 (0-0.5) K/uL Baso # (Auto) 0.01 (0-0.2) K/uL Immature Gran # (Auto) 0.06 H (0.00-0.02) K/uL PT 15.1 H (9.0-12.0) Seconds INR 1.5 H (0.9-1.1) APTT 33.6 H (21.0-31.0) Seconds PTT Ratio 1.3 Sodium 134 L (136-145) mmol/L Potassium 3.3 L (3.5-5.1) mmol/L Chloride 97 L (98-107) mmol/L Carbon Dioxide 32 (21-32) mmol/L Anion Gap 5.0 (3-11) BUN 55 H (7-18) mg/dl Creatinine 1.41 H (0.6-1.4) mg/dl Est Cr Clr Drug Dosing 83.6 ml/min Est GFR ( Amer) 61.9 ml/min Est GFR (Non-Af Amer) 53.4 ml/min BUN/Creatinine Ratio 39.3 H (10-20) Glucose 170 H (70-99) mg/dl Calcium 8.9 (8.5-10.1) mg/dl Phosphorus 3.3 (2.5-4.9) mg/dl Magnesium 2.4 (1.8-2.4) mg/dl Total Bilirubin 1.1 H (0.2-1) mg/dl Direct Bilirubin 0.2 (0-0.2) mg/dl AST 50 H (15-37) U/L ALT 118 H (12-78) U/L Alkaline Phosphatase 64 (45-117) U/L Troponin I < 0.015 (0-0.045) ng/ml Total Protein 7.7 (6.4-8.2) gm/dl Albumin 3.0 L (3.4-5.0) gm/dl Globulin 4.7 H (2.5-4.0) gm/dl Albumin/Globulin Ratio 0.6 L (0.9-2) Lipase 366 (73-393) U/L TSH 2.450 (0.300-4.500) uIu/ml Urine Color Urine Appearance (Clear) Urine pH (4.5-7.5) Ur Specific Tavares (1.000-1.030) Urine Protein (Negative) Urine Glucose (UA) (Negative) Urine Ketones (Negative) Urine Blood (Negative) Urine Nitrite (Negative) Urine Bilirubin (Negative) Urine Urobilinogen (Negative) Ur Leukocyte Esterase (Negative) Urine WBC (Auto) (0-5) /hpf Urine RBC (Auto) (0-4) /hpf U Hyaline Cast (Auto) (0-5) /lpf U Epithel Cells (Auto) (0-5) /lpf Urine Bacteria (Auto) (Negative) Urine Yeast (None Prsent) COVID-19 Eval Order SARS-CoV-2 (PCR) (Negative) 06/14/21 06/14/21 06/14/21 Range/Units 11:58 11:58 14:00 WBC (4.8-10.8) K/uL RBC (4.7-6.1) M/uL Hgb (14.0-18.0) g/dL Hct (42-52) % MCV (80-100) fL MCH (25-34) pg MCHC (32-36) g/dL RDW Std Deviation (36.4-46.3) fL RDW Coeff of Ysoeph (11.5-14.5) % Plt Count (130-400) K/uL MPV (7.4-10.4) fL Immature Gran % (Auto) % Neut % (Auto) % Lymph % (Auto) % [place] % (Auto) % Eos % (Auto) % Baso % (Auto) % Neut # (Auto) (1.4-6.5) K/uL Lymph # (Auto) (1.2-3.4) K/uL [place] # (Auto) (0.11-0.59) K/uL Eos # (Auto) (0-0.5) K/uL Baso # (Auto) (0-0.2) K/uL Immature Gran # (Auto) (0.00-0.02) K/uL PT (9.0-12.0) Seconds INR (0.9-1.1) APTT (21.0-31.0) Seconds PTT Ratio Sodium (136-145) mmol/L Potassium (3.5-5.1) mmol/L Chloride (98-107) mmol/L Carbon Dioxide (21-32) mmol/L Anion Gap (3-11) BUN (7-18) mg/dl Creatinine (0.6-1.4) mg/dl Est Cr Clr Drug Dosing ml/min Est GFR ( Amer) ml/min Est GFR (Non-Af Amer) ml/min BUN/Creatinine Ratio (10-20) Glucose (70-99) mg/dl Calcium (8.5-10.1) mg/dl Phosphorus (2.5-4.9) mg/dl Magnesium (1.8-2.4) mg/dl Total Bilirubin (0.2-1) mg/dl Direct Bilirubin (0-0.2) mg/dl AST (15-37) U/L ALT (12-78) U/L Alkaline Phosphatase (45-117) U/L Troponin I (0-0.045) ng/ml Total Protein (6.4-8.2) gm/dl Albumin (3.4-5.0) gm/dl Globulin (2.5-4.0) gm/dl Albumin/Globulin Ratio (0.9-2) Lipase (73-393) U/L TSH (0.300-4.500) uIu/ml Urine Color Yellow Urine Appearance Clear (Clear) Urine pH 5.0 (4.5-7.5) Ur Specific Tavares 1.015 (1.000-1.030) Urine Protein Negative (Negative) Urine Glucose (UA) Negative (Negative) Urine Ketones Negative (Negative) Urine Blood Negative (Negative) Urine Nitrite Positive A (Negative) Urine Bilirubin Negative (Negative) Urine Urobilinogen Negative (Negative) Ur Leukocyte Esterase 1+ H (Negative) Urine WBC (Auto) 10-30 H (0-5) /hpf Urine RBC (Auto) 0-4 (0-4) /hpf U Hyaline Cast (Auto) 1-5 (0-5) /lpf U Epithel Cells (Auto) 0-5 (0-5) /lpf Urine Bacteria (Auto) Negative (Negative) Urine Yeast Budding w/ Hyphae A (None Prsent) COVID-19 Eval Order Covid19 at [facility] SARS-CoV-2 (PCR) POSITIVE A* (Negative) Administered Medications Discontinued Medications Sodium Chloride (Nss 1000ml) 1,000 mls @ 999 mls/hr IV .Q1H1M ONE Stop: 06/14/21 11:43 Last Infusion: 06/14/21 13:21 Dose: 0 mls/hr Documented by: [id number] Admin: 06/14/21 11:54 Dose: 999 mls/hr Documented by: [id number] Cefepime HCl (Maxipime) 2,000 mg in 20 mls @ 5 mls/min IV NOW STA; Protocol Stop: 06/14/21 16:17 Last Admin: 06/14/21 17:38 Dose: 5 mls/min Documented by: [id number] Potassium Chloride (Potassium Chloride 10 Meq Tabcr) 40 meq PO ONE ONE Stop: 06/14/21 16:27 Last Admin: 06/14/21 17:38 Dose: 40 meq Documented by: [id number] Imaging Data Radiologist's Impression: Chest X-Ray 06/14/21 10:43 XR chest 1V portable HISTORY: 60 years-old Male Chest Pain acute atypical chest pain COMPARISON: Chest radiograph 06/02/2021 TECHNIQUE: Portable AP view of the chest FINDINGS: Fracture. Surgical wires are again noted projecting over the left hemithorax. Cardiomegaly. No pneumothorax, pleural effusion, airspace consolidation or overt pulmonary edema. Apparent coarsening of the interstitium is likely secondary to body habitus. Degenerative changes of the shoulders and spine. Surgical clips project over the abdominal left upper quadrant and left chest. No acute fracture. IMPRESSION: Cardiomegaly without acute process. ACT 112: Negative or not required by law. The above report was generated using voice recognition software. It may contain grammatical, syntax or spelling errors. Electronically signed by: Rey Pimentel M.D. 06/14/2021 11:27 AM Abdomen/Pelvis CT 06/14/21 12:[address] WITHOUT CONTRAST CT DOSE: 3253.18 mGy.cm HISTORY: Acute syncope with urinary tract infection syncope recurrent UTIs TECHNIQUE: Multiaxial CT images of the abdomen and pelvis were performed without contrast. A dose lowering technique was utilized adhering to the principles of ALARA. COMPARISON STUDY: CT abdomen and pelvis 12/05/2020 FINDINGS: Cardiomegaly. Bibasilar atelectasis. Limited study secondary to respiratory motion and upper extremity positioning. The unenhanced spleen, pancreas and left adrenal gland are unremarkable. Soft tissue attenuating 1.8 cm right adrenal gland nodule is unchanged. Suggested hepatic steatosis. Unremarkable gallbladder. There are a few nonobstructing bilateral renal calculi measuring up to 7 mm on the right and punctate size on the left. No ureteral calculi or hydronephrosis. Suprapubic urinary bladder catheter. Urinary bladder is decompressed with air in the lumen. Prostate is upper limits of normal in size. Infrarenal IVC filter. No abdominal aortic aneurysm. No bowel obstruction or bowel wall thickening. Mild rectal fecal retention. Portions of the anatomy are only partially imaged secondary to patient body habitus. Left lower quadrant colostomy. Chronic left gluteal decubitus ulcer with chronic erosion of the ischial tuberosity. No drainable fluid collection. Postoperative changes of the left ribs. Postoperative and chronic post traumatic changes of the left proximal femur. IMPRESSION: 1. No acute intra-abdominal or intrapelvic abnormality. 2. Chronic left gluteal decubitus ulcer with chronic erosion of the ischial tuberosity. 3. Nonobstructing bilateral nephrolithiasis. 4. Moderate fecal retention. 5. Additional findings as above. ACT 112: Negative or not required by law. The above report was generated using voice recognition software. It may contain grammatical, syntax or spelling errors. Electronically signed by: Rey Pimentel M.D. 06/14/2021 3:[address] 06/14/21 12:32 CT head/brain wo con CLINICAL HISTORY: 60 years-old Male with syncope. Acute syncope TECHNIQUE: Multiple axial CT images of the head were obtained without contrast. A dose lowering technique was utilized adhering to the principles of ALARA. COMPARISON: Head CT 05/26/2021 FINDINGS: No acute intracranial hemorrhage, midline shift, intracranial mass, hydroce phalus, territorial ischemia or abnormal extra-axial collection. Mild involutional changes. Mild white matter hypodensities suggestive of chronic microvascular ischemic disease. Calcifications of the falx cerebri. Cerebral vascular calcifications. The calvarium is intact. Prior bilateral lens repair. The paranasal sinuses, mastoid air cells, and middle ear cavities are clear. IMPRESSION: No acute intracranial abnormality. ACT 112: Negative or not required by law. The above report was generated using voice recognition software. It may contain grammatical, syntax or spelling errors. Electronically signed by: Rey Pimentel M.D. 06/14/2021 2:45 PM Discharge Plan Visit Data Chief Complaint: Syncope ED Provider: Gian Montgomery Discharge Problem: Syncope, Hypotension, Acute UTI, Dehydration Forms Stand Alone Forms: My [facility] Prescriptions Prescriptions: No Action warfarin 5 mg tablet 5 mg PO 3XWK RF: 0 escitalopram oxalate 20 mg tablet 20 mg PO QAM RF: 0 Novolin 70/30 U-100 Insulin 100 unit/mL (70-30) suspension 56 unit subcut BID RF: 0 atorvastatin 40 mg tablet 40 mg PO HS RF: 0 allopurinol 100 mg Tablet 100 mg PO BID RF: 0 ropinirole 1 mg Tablet 1 mg PO QID RF: 0 furosemide 40 mg Tablet 40 mg PO BID RF: 0 gabapentin 800 mg Tablet 800 mg PO BID RF: 0 ferrous gluconate 324 mg (38 mg iron) Tablet 324 mg PO QAM RF: 0 multivitamin Tablet 1 tab PO QAM RF: 0 pantoprazole 40 mg Tablet,Delayed Release (Dr/Ec) 40 mg PO QAM RF: 0 magnesium oxide 400 mg (241.3 mg magnesium) Tablet 400 mg PO BID RF: 0 baclofen 10 mg tablet 10 mg PO QID RF: 0 cyclobenzaprine 10 mg tablet 15 mg PO HS RF: 0 hyoscyamine sulfate 0.125 mg tablet 0.125 mg PO QPM RF: 0 tizanidine 4 mg tablet 4 mg PO BID RF: 0 potassium chloride 10 mEq tablet extended release 10 meq PO BIDM RF: 0 spironolactone [Aldactone] 25 mg tablet 25 mg PO QAM RF: 0 Medical Marijuana See Rx Instructions .ROUTE .COMPLEX RF: 0 methenamine hippurate 1 gram Tablet 1 g PO BID 30 Days Qty: 60 RF: 2 famotidine [Acid Director Of Assessment (famotidine)] 20 mg Tablet 20 mg PO BID RF: 0 ascorbic acid (vitamin C) [Vitamin C] 500 mg Tablet 250 mg PO TID RF: 0 zinc sulfate 50 mg zinc (220 mg) Capsule 50 mg PO QDL RF: 0 bethanechol chloride 5 mg Tablet 5 mg PO TID RF: 0 Lactobacillus acidoph-L.bulgar [Floranex] 1 million cell Tablet 1 tab PO BID RF: 0 nystatin-triamcinolone 100,000-0.1 unit/g-% Cream 1 applic TOPICAL BID RF: 0 nystatin 100,000 unit/gram Powder 1 applic TOPICAL BID PRN (Reason: Rash) RF: 0 ndfrdi-gtmc-xl akrr-ds-jsbqhjb 81.6-0.12-10.8 mg Tablet 1 tab PO QPM RF: 0 Novolin R Regular U-100 Insuln 100 unit/mL Solution 1 sliding scale dose SUBCUT USEASDIRECTD RF: 0 R-Mflhmn-U1-B12 3-35-2 mg Tablet 1 tab PO BID RF: 0 triamcinolone acetonide 0.1 % Cream 1 applic TOPICAL BID PRN (Reason: Rash) RF: 0 acetaminophen 500 mg Capsule 1,000 mg PO Q6H PRN (Reason: Pain) RF: 0 menthol-zinc oxide [Calmoseptine] 0.44-20.6 % Ointment 1 applic TOPICAL QID PRN (Reason: Rash) RF: 0 warfarin 7.5 mg Tablet 7.5 mg PO 4XWK RF: 0 irbesartan 75 mg tablet 75 mg PO DAILY RF: 0 metformin 1,000 mg tablet 1,000 mg PO BIDM RF: 0 Referrals Referrals: Wilder Stanford MD [Primary Care Provider] - Discharge Problem: Syncope Qualifiers: Syncope type: unspecified Qualified Code(s): R55 - Syncope and collapse Hypotension Qualifiers: Hypotension type: unspecified hypotension type Qualified Code(s): I95.9 - Hypotension, unspecified
--- NOTE | 2021-06-14 11:29 | XRay Report ---
XR chest 1V portable HISTORY: 60 years-old Male Chest Pain acute atypical chest pain COMPARISON: Chest radiograph 06/02/2021 TECHNIQUE: Portable AP view of the chest FINDINGS: Fracture. Surgical wires are again noted projecting over the left hemithorax. Cardiomegaly. No pneumo thorax, pleural effusion, airspace consolidation or overt pulmonary edema. Apparent coarsening of the interstitium is likely secondary to body habitus. Degenerative changes of the shoulders and spine. S urgical clips project over the abdominal left upper quadrant and left chest. No acute fracture. IMPRESSION: Cardiomegaly without acute process. ACT 112: Negative or not required by law. The above report was generated using voice recognition software. It may contain grammatical, syntax o r spelling errors. Electronically signed by: Rey Pimentel M.D. 06/14/2021 11:27 AM
[2021-06-14 12:08] LABS: Basophils # (auto) 0.01 K/uL (0-0.2); Basophils % (auto) 0.1 %; Eosinophils # (auto) 0.19 K/uL (0-0.5); Eosinophils % (auto) 1.3 %; Hematocrit (blood only) 36.6 % (42-52); Hemoglobin 12.1 g/dL (14.0-18.0); Immature Granulocytes # (auto) 0.06 K/uL (0.00-0.02); Immature Granulocytes % (auto) 0.4 %; Lymphocytes # (auto) 2.45 K/uL (1.2-3.4); Lymphocytes % (auto) 17.1 %; Mean Corpuscular Hemoglobin 29.1 pg (25-34); Mean Corpuscular Hgb Conc 33.1 g/dL (32-36); Mean Platelet Volume 10.3 fL (7.4-10.4); Monocytes # (auto) 1.53 K/uL (0.11-0.59); Monocytes % (auto) 10.7 %; Neutrophils # (auto) 10.12 K/uL (1.4-6.5); Neutrophils % (auto) 70.4 %; Platelet Count 212 K/uL (130-400); RDW Coefficient of Variation 16.2 % (11.5-14.5); RDW Standard Deviation 52.2 fL (36.4-46.3); Red Blood Count 4.16 M/uL (4.7-6.1); White Blood Count 14.36 K/uL (4.8-10.8)
[2021-06-14 12:22] LABS: INR 1.5 (0.9-1.1); Partial Thromboplastin Ratio 1.3; Partial Thromboplastin Time 33.6 Seconds (21.0-31.0); Prothrombin Time 15.1 Seconds (9.0-12.0)
[2021-06-14 12:24] LABS: Alanine Aminotransferase 118 U/L (12-78); Aspartate Aminotransferase 50 U/L (15-37); BUN Creatinine Ratio 39.3 (10-20); Bilirubin Direct 0.2 mg/dl (0-0.2); Blood Urea Nitrogen 55 mg/dl (7-18); Calcium 8.9 mg/dl (8.5-10.1); Carbon Dioxide 32 mmol/L (21-32); Chloride 97 mmol/L (98-107); Creatinine Clr Calc Pharmacy 83.6 ml/min; Est GFR (African American) 61.9 ml/min; Est GFR (Non-African American) 53.4 ml/min; Glucose 170 mg/dl (70-99); Lipase 366 U/L (73-393); Magnesium 2.4 mg/dl (1.8-2.4); Potassium 3.3 mmol/L (3.5-5.1); Sodium 134 mmol/L (136-145)
[2021-06-14 12:34] LABS: Albumin Globulin Ratio 0.6 (0.9-2); Alkaline Phosphatase 64 U/L (45-117); Bilirubin,Total 1.1 mg/dl (0.2-1); Globulin 4.7 gm/dl (2.5-4.0); Phosphorus 3.3 mg/dl (2.5-4.9); Total Protein 7.7 gm/dl (6.4-8.2); Troponin I < 0.015 ng/ml (0-0.045)
[2021-06-14 14:29] LABS: Appearance Urine Clear (Clear); Bacteria Urine Automated Negative (Negative); Bilirubin Urine Negative (Negative); Blood Urine Negative (Negative); Color Urine Yellow; Epithelial Cell Urine Auto 0-5 /lpf (0-5); Glucose Urine UA Negative (Negative); Ketones Urine Negative (Negative); Leukocyte Esterase Urine 1+ (Negative); Nitrite Urine Positive (Negative); Protein Urine Negative (Negative); RBC Urine Automated 0-4 /hpf (0-4); Specific Gravity Urine 1.015 (1.000-1.030); Urobilinogen Urine Negative (Negative)
--- NOTE | 2021-06-14 14:47 | CT Scan Report ---
CT head/brain wo con CLINICAL HISTORY: 60 years-old Male with syncope. Acute syncope TECHNIQUE: Multiple axial CT images of the head were obtained without contrast. A dose lowering tech nique was utilized adhering to the principles of ALARA. COMPARISON: Head CT 05/26/2021 FINDINGS: No acute intracranial hemorrhage, midline shift, intracranial mass, hydrocephalus, territorial ischem ia or abnormal extra-axial collection. Mild involutional changes. Mild white matter hypodensities sug gestive of chronic microvascular ischemic disease. Calcifications of the falx cerebri. Cerebral vascu lar calcifications. The calvarium is intact. Prior bilateral lens repair. The paranasal sinuses, mastoid air cells, and m iddle ear cavities are clear. IMPRESSION: No acute intracranial abnormality. ACT 112: Negative or not required by law. The above report was generated using voice recognition software. It may contain grammatical, syntax o r spelling errors. Electronically signed by: Rey Pimentel M.D. 06/14/2021 2:45 PM
--- NOTE | 2021-06-14 15:16 | CT Scan Report ---
ABDOMEN AND PELVIS CT WITHOUT CONTRAST CT DOSE: 3253.18 mGy.cm HISTORY: Acute syncope with urinary tract infection syncope recurrent UTIs TECHNIQUE: Multiaxial CT images of the abdomen and pelvis were performed without contrast. A dose lo wering technique was utilized adhering to the principles of ALARA. COMPARISON STUDY: CT abdomen and pelvis 12/05/2020 FINDINGS: Cardiomegaly. Bibasilar atelectasis. Limited study secondary to respiratory motion and upper extremit y positioning. The unenhanced spleen, pancreas and left adrenal gland are unremarkable. Soft tissue a ttenuating 1.8 cm right adrenal gland nodule is unchanged. Suggested hepatic steatosis. Unremarkable gallbladder. There are a few nonobstructing bilateral renal calculi measuring up to 7 mm on the right and punctate size on the left. No ureteral calculi or hydronephrosis. Suprapubic urinary bladder catheter. Urinar y bladder is decompressed with air in the lumen. Prostate is upper limits of normal in size. Infraren al IVC filter. No abdominal aortic aneurysm. No bowel obstruction or bowel wall thickening. Mild rectal fecal retention. Portions of the anatomy a re only partially imaged secondary to patient body habitus. Left lower quadrant colostomy. Chronic le ft gluteal decubitus ulcer with chronic erosion of the ischial tuberosity. No drainable fluid collect ion. Postoperative changes of the left ribs. Postoperative and chronic post traumatic changes of the left proximal femur. IMPRESSION: 1. No acute intra-abdominal or intrapelvic abnormality. 2. Chronic left gluteal decubitus ulcer with chronic erosion of the ischial tuberosity. 3. Nonobstructing bilateral nephrolithiasis. 4. Moderate fecal retention. 5. Additional findings as above. ACT 112: Negative or not required by law. The above report was generated using voice recognition software. It may contain grammatical, syntax o r spelling errors. Electronically signed by: Rey Pimentel M.D. 06/14/2021 3:15 PM
--- NOTE | 2021-06-14 15:49 | History & Physical Report ---
Date of Service June 14, 2021 Assessment & Plan (1) Syncope: Plan: Syncope: Likely due to Hypotension, Hypoxia CT head: No acute intracranial abnormality. Monitor in Telemetry for arrhythmia Difficult to check Orthostatics given Paraplegia Continue IV fluids Check Carotid Ultrasound Consider ECHO eval only if necessary given COVID Positive Fall precautions Acute on chronic respiratory failure with hypoxia Chronic oxygen dependency-2 L at bedtime COVID-19 pneumonia Covid screen remains positive Completed remdesivir, dexamethasone course last admission Hypoxic while on room air while in ED We will restart dexamethasone course Continue supplemental oxygen as needed Hypotensive while in ED Hold antihypertensives IV fluids Monitor BP Hypokalemia Potassium levels 3.3 Replace electrolytes as needed Left gluteal decubitus ulcer Wound care nurse eval requested H/O Recurrent UTI Prior Urine cx grew pseudomonas H/O Neurogenic bladder, Chronic Suprapubic Catheter Completed Cefepime course last admission Denies any symptoms currently Diabetes Mellitus Most recent hab1c 7.9 on 04/26 Glycemic Pharmacy to help with glycemic management ROBERT on CKD Creatinine 1.4 Hold lasix, Irbesartan Monitor renal function IV fluids Hx neurogenic bladder 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 Stable Hx DVT Subtherapeutic INR Continue Coumadin Heparin SQ till INR therapeutic Monitor INR: 1.5 Code Status Full code Disposition Case management o help with discharge planning History of Present Illness Chief Complaint: Syncope Primary Care Provider: Wilder Stanford MD Patient is a 60-year-old male with 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 and was treated for COVID-19 pneumonia and urinary tract infection presents with history of syncopal episode this morning. Patient states that he was unaware of the events during the episode. He believes that his noticed him to have passed out for about 30 seconds today. He denies any dizziness, nausea, shortness of breath, head trauma, change in vision, seizure-like activity. He was found to be hypoxic in the 85% on room air while in ED which improved with 2 L of supplemental oxygen. His systolic blood pressure was in 80s which improved with IV fluids. His INR was noted to be subtherapeutic at 1.5. Potassium levels noted at 3.3. CT head showed no acute intracranial abnormality. Denies any history of chest pain, SOB, cough, palpitations, cough, fever, chills, headache, nausea, vomiting, abdominal pain, diarrhea, dysuria, hematuria. Allergies Allergy/AdvReac Type Severity Reaction Status Date / Time codeine Allergy Severe THROAT Verified 06/14/21 11:17 SWELLS latex Allergy Intermediate welts Verified 06/14/21 11:17 piperacillin Allergy Intermediate RASH Verified 06/14/21 11:17 Sulfa (Sulfonamide Allergy Intermediate HIVES Verified 06/14/21 11:17 Antibiotics) tazobactam Allergy Intermediate RASH Verified 06/14/21 11:17 aztreonam Allergy Unknown unknown Verified 06/14/21 11:17 lactose AdvReac Intermediate GI symptoms Verified 06/14/21 11:17 metoclopramide [From Reglan] AdvReac Mild lethargy Verified 06/14/21 11:17 Home Medications Medication Instructions Recorded Confirmed Type allopurinol 100 mg tablet 100 mg PO BID 05/07/18 06/14/21 History ferrous gluconate 324 mg (38 mg 324 mg PO QAM 05/07/18 06/14/21 History iron) tablet furosemide 40 mg tablet 40 mg PO BID 05/07/18 06/14/21 History gabapentin 800 mg tablet 800 mg PO BID 05/07/18 06/14/21 History magnesium oxide 400 mg (241.3 mg 400 mg PO BID 05/07/18 06/14/21 History magnesium) tablet multivitamin 1 tab PO QAM 05/07/18 06/14/21 History pantoprazole 40 mg tablet,delayed 40 mg PO QAM 05/07/18 06/14/21 History release ropinirole 1 mg tablet 1 mg PO QID 05/07/18 06/14/21 History escitalopram oxalate 20 mg tablet 20 mg PO QAM tab 08/21/19 06/14/21 History insulin human U-100 NPH-regulr 56 unit SUBCUT BID 08/21/19 06/14/21 History 70-30 mix 100 unit/mL subcutaneous susp (Novolin 70/30 U-100 Insulin) warfarin 5 mg tablet 5 mg PO 3XWK tab 08/21/19 06/14/21 History atorvastatin 40 mg tablet 40 mg PO HS 08/24/19 06/14/21 History baclofen 10 mg tablet 10 mg PO QID 09/22/19 06/14/21 History cyclobenzaprine 10 mg tablet 15 mg PO HS 03/01/20 06/14/21 History hyoscyamine sulfate 0.125 mg tablet 0.125 mg PO QPM 03/01/20 06/14/21 History potassium chloride 10 mEq 10 meq PO BIDM 03/01/20 06/14/21 History tablet,extended release spironolactone 25 mg tablet 25 mg PO QAM 03/01/20 06/14/21 History (Aldactone) tizanidine 4 mg tablet 4 mg PO BID 03/01/20 06/14/21 History Medical Marijuana See Rx Instructions .ROUTE .COMPLEX 03/26/20 06/14/21 History methenamine hippurate 1 gram tablet 1 g PO BID 30 Days #60 tab 04/02/20 06/14/21 Rx ascorbic acid (vitamin C) 500 mg 250 mg PO TID 12/03/20 06/14/21 History tablet (Vitamin C) famotidine 20 mg tablet (Acid 20 mg PO BID 12/03/20 06/14/21 History Publishing Specialist (famotidine)) zinc sulfate 50 mg zinc (220 mg) 50 mg PO QDL 12/03/20 06/14/21 History capsule Lactobacillus acidoph-L.bulgaricus 1 tab PO BID 01/03/21 06/14/21 History 1 million cell tablet (Floranex) acetaminophen 500 mg capsule 1,000 mg PO Q6H PRN 01/03/21 06/14/21 History bethanechol chloride 5 mg tablet 5 mg PO TID 01/03/21 06/14/21 History insulin regular human 100 unit/mL 1 sliding scale dose SUBCUT 01/03/21 06/14/21 History injection solution (Novolin R USEASDIRECTD Regular U-100 Insulin) mecobalamin-levomefolate 1 tab PO BID 01/03/21 06/14/21 History calcium-pyridoxal phos 3 mg-35 mg-2 mg tablet (K-Ozkzxp-K3-B12) menthol 0.44 %-zinc oxide 20.6 % 1 applic TOPICAL QID PRN 01/03/21 06/14/21 History topical ointment (Calmoseptine) methenamin 81.6 mg-hyoscyam 0.12 1 tab PO QPM 01/03/21 06/14/21 History mg-methblue 10.8 mx-is-gfyoidm tablet nystatin 100,000 unit/gram topical 1 applic TOPICAL BID PRN 01/03/21 06/14/21 History powder nystatin-triamcinolone 100,000 1 applic TOPICAL BID 01/03/21 06/14/21 History unit/g-0.1 % topical cream triamcinolone acetonide 0.1 % 1 applic TOPICAL BID PRN 01/03/21 06/14/21 History topical cream irbesartan 75 mg tablet 75 mg PO DAILY 06/02/21 06/14/21 History warfarin 7.5 mg tablet 7.5 mg PO 4XWK 06/02/21 06/14/21 History metformin 1,000 mg tablet 1,000 mg PO BIDM 06/14/21 06/14/21 History Past Med/Surg History Medical History Asymptomatic bacteriuria Clostridium difficile infection (Unknown) CVA (cerebral vascular accident) DM type 2 (diabetes mellitus, type 2) Dyslipidemia Dysphagia Fever History of blood clots History of DVT (deep vein thrombosis) Hypertension Hypotension Ileus Kidney disease Leukocytosis Major depressive disorder, recurrent Obesity Occluded PICC line Positive urine culture Quadriplegia BRAIN INJURY 11 YRS AGO Seizure SIRS (systemic inflammatory response syndrome) Sleep apnea (Unknown) OXYGEN 2L/MIN NC HS Syncope 57 year old with know quadriplegia and new onset syncope with change in position UTI (urinary tract infection) RECENT [facility] ADMISION-D/C 12/06/20 Surgical History History of colonoscopy 2010 History of open reduction and internal fixation (ORIF) procedure LEFT FEMUR Insertion of inferior vena caval filter (Unknown) Lithotripsy (Unknown) "laser lithotripsy left ureteral stone 03/17/11 " S/P knee surgery S/P tonsillectomy Suprapubic cystostomy (Unknown) IN PLACE Family History Mother No pertinent family history Family history of diabetes mellitus Father Family hx of colon cancer Social History Smoking Status: Never smoker Second Hand Exposure: Yes (FATHER SMOKED); Hx Alcohol Use: No Hx Substance Use: No Preferred Language: Mohawk Communication Ability: Effective Visual Impairment: No Limitations 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[employer] 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 Required: No Beliefs That Will Affect Care: None marital status: Current Living Situation: Spouse current occupational status: disabled Feels Safe at Home: Yes Physical Activity Frequency Comment: QUADRAPLEGIA C4-5-ABLE TO MOVE ARMS, HANDS Assistive Devices: Oxygen - at Night Review of Systems Review of Systems: All systems reviewed & are unremarkable except as noted in HPI & below Physical Exam Physical Exam: Physical Exam: Vitals signs as noted above General Appearance:Morbidly Obese, no apparent distress Head: normocephalic, Atraumatic Eyes: normal inspection, EOMI Neck: supple, Trachea midline Respiratory/Chest: Decreased breath sounds, CTA Cardiovascular: S1, S2, No murmur Abdomen/GI:Soft, Non tender, Bowel sounds present Extremities/Musculoskeletal:normal inspection Neurologic/Psych:AAOX3, B/L Lower extremity paraplegia Skin: normal color, warm Results & Data Results & Data ([facility]) Vital Signs (Past 12 Hours) Vital Signs Temp Pulse Resp BP Pulse Ox 06/14/21 15:30 80 15 105/56 L 97 06/14/21 15:00 79 15 100/54 L 97 06/14/21 14:00 87 13 101/59 L 96 06/14/21 13:30 89 10 L 111/56 L 97 06/14/21 13:22 85 L 06/14/21 13:00 85 14 111/57 L 90 06/14/21 12:30 85 13 119/67 92 06/14/21 12:00 84 18 97/70 L 94 06/14/21 11:30 82 9 L 113/69 06/14/21 10:43 90 06/14/21 10:30 81 18 85/73 L 06/14/21 10:20 37.3 C 80 18 104/64 90 06/14/21 10:19 79 11 L 104/64 93 Laboratory Results Short CBC 06/14/21 Range/Units 11:55 WBC 14.36 H (4.8-10.8) K/uL Hgb 12.1 L (14.0-18.0) g/dL Hct 36.6 L (42-52) % Plt Count 212 (130-400) K/uL BMP 06/14/21 11:55 Sodium 134 L Potassium 3.3 L Chloride 97 L Carbon Dioxide 32 BUN 55 H Creatinine 1.41 H Glucose 170 H Calcium 8.9 Cardiac Enzymes 06/14/21 Range/Units 11:55 Troponin I < 0.015 (0-0.045) ng/ml Liver Function 06/14/21 Range/Units 11:55 Total Bilirubin 1.1 H (0.2-1) mg/dl Direct Bilirubin 0.2 (0-0.2) mg/dl AST 50 H (15-37) U/L ALT 118 H (12-78) U/L Alkaline Phosphatase 64 (45-117) U/L Albumin 3.0 L (3.4-5.0) gm/dl Urine 06/14/21 Range/Units 14:00 Urine Color Yellow Urine Appearance Clear (Clear) Urine pH 5.0 (4.5-7.5) Ur Specific [place] 1.015 (1.000-1.030) Urine Protein Negative (Negative) Urine Glucose (UA) Negative (Negative) Diagnostic Findings CT head:No acute intracranial abnormality. CT ABD: 1. No acute intra-abdominal or intrapelvic abnormality. 2. Chronic left gluteal decubitus ulcer with chronic erosion of the ischial tuberosity. 3. Nonobstructing bilateral nephrolithiasis. 4. Moderate fecal retention. CXR: Cardiomegaly without acute process. ECG Additional Comments: EKG: Normal sinus rhythm. Right bundle branch block. QTc 474.
[2021-06-14] MEDS ORDERED: CEFEPIME 2,000 MG/20 ML VIAL IV STA (16:14)
[2021-06-14] MEDS ORDERED: POTASSIUM CHLORIDE 10 MEQ TABCR PO ONE (16:26)
[2021-06-15] MEDS ORDERED: ALBUTEROL 0.083% NEBU SOLN 3 ML VIAL NEB PRN (02:19)
[2021-06-15] MEDS ORDERED: GLUCOSE 40% GEL 15 GM TUBE PO PRN (02:19)
[2021-06-15] MEDS ORDERED: CARBOHYDRATES FOR HYPOGLYCEMIA PO PRN (02:19)
[2021-06-15] MEDS ORDERED: DEXTROSE 50% 50 ML SYRINGE IV PRN (02:19)
[2021-06-15] MEDS ORDERED: GLUCOSE 10 TABS/TUBE PO PRN (02:19)
[2021-06-15] MEDS ORDERED: GLUCAGON FOR INJ 1 MG VIAL SQ PRN (02:19)
[2021-06-15] MEDS ORDERED: PHARMACY GLYCEMIC MGMT CONSULT PRN (02:19)
[2021-06-15] MEDS ORDERED: CONSULT PHARMACY PRN (02:19)
[2021-06-15] MEDS ORDERED: MEDICAL MARIJUANA INH PRN (02:45)
[2021-06-15] MEDS ORDERED: NSS + 20MEQ KCL 20 MEQ/1,000 ML BAG IV ONE (03:00)
[2021-06-15] MEDS ORDERED: CEFEPIME CONSULT ACTIVE PRN (03:01)
[2021-06-15] MEDS ORDERED: WARFARIN SOD 10 MG TAB PO ONE (03:15)
[2021-06-15] MEDS: BACLOFEN 10 MG TAB PO SCH ×5 (04:10→20:11)
[2021-06-15] MEDS: tiZANidine HCL 4 MG TABLET PO SCH ×3 (04:11→20:10)
[2021-06-15] MEDS: CYCLOBENZAPRINE HCL 5 MG TAB PO SCH ×2 (04:11→20:10)
[2021-06-15] MEDS: MAGNESIUM OXIDE 400 MG TAB PO SCH ×3 (04:11→20:10)
[2021-06-15] MEDS: METHENAMINE HIPPURATE 1 GM TAB PO SCH ×3 (04:12→20:10)
[2021-06-15] MEDS: rOPINIRole HCL 1 MG TABLET PO SCH ×5 (04:12→20:10)
[2021-06-15] MEDS: HEPARIN SOD 5,000 UNIT/0.5 ML VIAL SQ SCH ×3 (04:12→20:11)
[2021-06-15] MEDS: POTASSIUM CHLORIDE 10 MEQ TABCR PO SCH ×2 (04:13→11:09)
[2021-06-15] MEDS: ATORVASTATIN 40 MG TAB PO SCH ×2 (04:14→20:11)
[2021-06-15] MEDS: GABAPENTIN 800 MG TAB PO SCH ×3 (04:14→20:10)
[2021-06-15] MEDS: allopurinoL 100 MG TAB PO SCH ×3 (04:14→20:10)
[2021-06-15] MEDS: FAMOTIDINE 20 MG TAB PO SCH ×3 (04:15→20:10)
[2021-06-15] MEDS: HYOSCYAMINE SULFATE 0.125 MG TAB PO SCH ×2 (04:15→20:11)
[2021-06-15] MEDS: dexAMETHasone 6 MG in SYRINGE 0 ML IV SCH (04:16)
[2021-06-15] MEDS: CEFEPIME 2,000 MG in SYRINGE 0 ML IV SCH ×2 (05:39→17:48)
[2021-06-15 07:39] LABS: Hematocrit (blood only) 35.2 % (42-52); Hemoglobin 11.5 g/dL (14.0-18.0); Mean Corpuscular Hemoglobin 29.2 pg (25-34); Mean Corpuscular Hgb Conc 32.7 g/dL (32-36); Mean Corpuscular Volume 89.3 fL (80-100); Mean Platelet Volume 10.4 fL (7.4-10.4); Platelet Count 193 K/uL (130-400); RDW Coefficient of Variation 16.1 % (11.5-14.5); RDW Standard Deviation 53.4 fL (36.4-46.3); Red Blood Count 3.94 M/uL (4.7-6.1); White Blood Count 17.33 K/uL (4.8-10.8)
[2021-06-15 08:00] LABS: C Reactive Protein 2.68 mg/dl (0-0.29); Est GFR (African American) 77.5 ml/min; Est GFR (Non-African American) 66.9 ml/min; Magnesium 2.5 mg/dl (1.8-2.4); Potassium 4.2 mmol/L (3.5-5.1)
[2021-06-15] MEDS: FERROUS GLUCONATE 324 MG TAB PO SCH (08:51)
[2021-06-15] MEDS: SPIRONOLACTONE 25 MG TAB PO SCH (08:52)
[2021-06-15] MEDS: ESCITALOPRAM OXALATE 20 MG TAB PO SCH (08:52)
[2021-06-15] MEDS: ADVANCED PROBIOTIC 1250 MG CAPSULE PO SCH (08:53)
[2021-06-15] MEDS: PANTOprazole 40 MG TAB PO SCH (08:53)
[2021-06-15] MEDS: MULTIVITAMIN TAB PO SCH (08:54)
[2021-06-15] MEDS: INSULIN HUMAN NPH SC SCH ×2 (08:55→17:24)
--- NOTE | 2021-06-15 09:10 | Hospitalist Progress Note ---
Date of Service June 15, 2021 Assessment & Plan (1) Syncope: Plan: Syncope: Likely due to Hypotension, Hypoxia CT head: No acute intracranial abnormality. Monitor in Telemetry for arrhythmia Difficult to check Orthostatics given Paraplegia Received gentle IV fluids Carotid Ultrasound:There is no sonographic evidence of hemodynamically significant stenosis in the right or left carotid arterial system. Antegrade flow is shown in the vertebral arteries. Consider ECHO eval only if necessary given COVID Positive Fall precautions BP stable Acute on chronic respiratory failure with hypoxia Chronic oxygen dependency-2 L at bedtime COVID-19 pneumonia Covid screen remains positive Completed remdesivir, dexamethasone course last admission CRP:2.68 Hypoxic while on room air while in ED Continue Dexamethasone Day #2 Currently saturating Low 90s on room air Leukocytosis likely due to steroids Hypotensive while in ED BP stable but relatively low Hold antihypertensives today Received IV fluids Monitor BP Hypokalemia Potassium levels 3.3> 4.2 Replace electrolytes as needed Hold home potassium supplements Left gluteal decubitus ulcer Wound care nurse eval requested H/O Recurrent UTI Prior Urine cx grew pseudomonas H/O Neurogenic bladder, Chronic Suprapubic Catheter Completed Cefepime course last admission Denies any symptoms currently Urine Cx: Probable Pseudomonas species--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 Continue cefepime Day #2 Added Diflucan Appreciate urology input Plan to change suprapubic catheter once cultures finalized Diabetes Mellitus Most recent hab1c 7.9 on 04/26 Glycemic Pharmacy to help with glycemic management ROBERT on CKD Creatinine 1.4> 1.17 Hold lasix, Irbesartan for now Monitor renal function Received IV fluids Hx neurogenic bladder 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 Stable Hx DVT Subtherapeutic INR on Presentation Continue Coumadin Heparin SQ till INR therapeutic Monitor INR: 1.5>1.5 Code Status Full code Disposition Case management o help with discharge planning Admission and Anticipated Discharge Date Admission Date: June 14, 2021 Subjective Patient is seen and examined at bedside Offers no new complaints today Saturating low 90s on room air No arrhythmias on monitor Patient denies chest pain, dyspnea, dizziness, nausea, abdominal pain Appreciate neurology input Review of Systems Review of Systems: All systems reviewed & are unremarkable except as noted in Subjective Physical Exam Physical Exam: Physical Exam: Vitals signs as noted above General Appearance:Morbidly Obese, no apparent distress Head: normocephalic, Atraumatic Eyes: normal inspection, EOMI Neck: supple, Trachea midline Respiratory/Chest: Decreased breath sounds, CTA Cardiovascular: S1, S2, No murmur Abdomen/GI:Soft, Non tender, Bowel sounds present Extremities/Musculoskeletal:normal inspection Neurologic/Psych:AAOX3, B/L Lower extremity paraplegia Skin: normal color, warm Results & Data Results & Data ([facility]) Vital Signs (Past 12 Hours) Vital Signs Temp Pulse Pulse Resp BP BP BP 06/15/21 08:10 36.8 C 82 18 117/67 06/15/21 07:11 82 06/15/21 02:00 06/15/21 01:57 96 H 06/15/21 01:51 37.0 C 96 H 16 129/77 06/15/21 01:16 88 18 127/74 06/14/21 23:00 89 18 112/63 06/14/21 22:02 18 119/67 Pulse Ox Pulse Ox 06/15/21 08:10 92 06/15/21 07:11 06/15/21 02:00 92 06/15/21 01:57 06/15/21 01:51 92 92 06/15/21 01:16 100 06/14/21 23:00 100 06/14/21 22:02 97 Laboratory Results Short CBC 06/14/21 06/15/21 Range/Units 11:55 06:30 WBC 14.36 H 17.33 H (4.8-10.8) K/uL Hgb 12.1 L 11.5 L (14.0-18.0) g/dL Hct 36.6 L 35.2 L (42-52) % Plt Count 212 193 (130-400) K/uL BMP 06/14/21 06/15/21 11:55 06:30 Sodium 134 L 136 Potassium 3.3 L 4.2 D Chloride 97 L 101 Carbon Dioxide 32 29 BUN 55 H 49 H Creatinine 1.41 H 1.17 Glucose 170 H 191 H Calcium 8.9 9.0 Cardiac Enzymes 06/14/21 Range/Units 11:55 Troponin I < 0.015 (0-0.045) ng/ml Liver Function 06/14/21 Range/Units 11:55 Total Bilirubin 1.1 H (0.2-1) mg/dl Direct Bilirubin 0.2 (0-0.2) mg/dl AST 50 H (15-37) U/L ALT 118 H (12-78) U/L Alkaline Phosphatase 64 (45-117) U/L Albumin 3.0 L (3.4-5.0) gm/dl Urine 06/14/21 Range/Units 14:00 Urine Color Yellow Urine Appearance Clear (Clear) Urine pH 5.0 (4.5-7.5) Ur Specific [place] 1.015 (1.000-1.030) Urine Protein Negative (Negative) Urine Glucose (UA) Negative (Negative)
[2021-06-15] MEDS: INSULIN ASPART 100 UNITS/ML 3 ML PEN SC SCH ×4 (09:19→20:17)
[2021-06-15 09:49] LABS: INR 1.5 (0.9-1.1); Prothrombin Time 14.9 Seconds (9.0-12.0)
--- NOTE | 2021-06-15 10:10 | Urology Consultation ---
Date of Consultation June 15, 2021 Assessment & Plan (1) Neurogenic bladder: 60-year-old male with a history of paraplegia and resultant neurogenic bladder managed with an SP tube to the emergency department due to witnessed syncopal event. Currently undergoing work-up for syncope. Urology was contacted consulted for concern for urinary tract infection and exchange of SP tube. Unclear if this is colonization or acute urinary tract infection. Recommend continuing broad-spectrum antibiotics and adding on Diflucan as he did have a yeast in his UA and yeast will take several days to grow on culture. Would not recommend exchanging SP tube until we have finalized cultures and ensuring he is on appropriate antibiotics to avoid any worsening of infection with manipulation Once cultures and antibiotics are appropriate, nursing can exchange SP tube at bedside. This is done by his home nursing monthly. Urology available to help with exchange if issues encountered. Urology to follow peripherally. Urology will schedule follow-up with patient in clinic to establish care as he needs surveillance for his kidney stones as well as bladder cancer with a chronic SP tube. 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 He has previously had issues with urinary tract infections and nephrolithiasis. He has had to be hospitalized previously due to infection suspected from the urinary tract. He presented to the emergency department after his reported a syncopal episode yesterday morning. He was hypoxic in the ED with an SPO2 of 85% which improved with oxygen. He was hypotensive in the eighties systolic which improved with fluids. Labs were significant for a leukocytosis of 14.3, creatinine of 1.41 and a urinalysis that was positive for nitrites, had 1+ leukocyte esterase, 10-30 WBCs, 0-4 RBCs and no bacteria but did show budding yeast (this is not unexpected as patient is colonized). A CT scan of the abdomen and pelvis showed nonobstructing bilateral nephrolithiasis, however no hydronephrosis and an SP tube in appropriate position in the bladder. He is currently being treated with cefepime.A urine culture is prelim positive for Pseudomonas which he has previously grown out in the past. Patient reports he is feeling fine today. He denies any issues with his SP tube prior to hospitalization. It is currently draining without issue. He has exchanged by home nursing and reports he is due this week for an exchange. He reports it was originally placed due to urethral erosion from a chronic Martinez catheter. Allergies Allergy/AdvReac Type Severity Reaction Status Date / Time codeine Allergy Severe THROAT Verified 06/14/21 11:17 SWELLS latex Allergy Intermediate welts Verified 06/14/21 11:17 piperacillin Allergy Intermediate RASH Verified 06/14/21 11:17 Sulfa (Sulfonamide Allergy Intermediate HIVES Verified 06/14/21 11:17 Antibiotics) tazobactam Allergy Intermediate RASH Verified 06/14/21 11:17 aztreonam Allergy Unknown unknown Verified 06/14/21 11:17 lactose AdvReac Intermediate GI symptoms Verified 06/14/21 11:17 metoclopramide [From Reglan] AdvReac Mild lethargy Verified 06/14/21 11:17 Home Medications Medication Instructions Recorded Confirmed Type allopurinol 100 mg tablet 100 mg PO BID 05/07/18 06/14/21 History ferrous gluconate 324 mg (38 mg 324 mg PO QAM 05/07/18 06/14/21 History iron) tablet furosemide 40 mg tablet 40 mg PO BID 05/07/18 06/14/21 History gabapentin 800 mg tablet 800 mg PO BID 05/07/18 06/14/21 History magnesium oxide 400 mg (241.3 mg 400 mg PO BID 05/07/18 06/14/21 History magnesium) tablet multivitamin 1 tab PO QAM 05/07/18 06/14/21 History pantoprazole 40 mg tablet,delayed 40 mg PO QAM 05/07/18 06/14/21 History release ropinirole 1 mg tablet 1 mg PO QID 05/07/18 06/14/21 History escitalopram oxalate 20 mg tablet 20 mg PO QAM tab 08/21/19 06/14/21 History insulin human U-100 NPH-regulr 56 unit SUBCUT BID 08/21/19 06/14/21 History 70-30 mix 100 unit/mL subcutaneous susp (Novolin 70/30 U-100 Insulin) warfarin 5 mg tablet 5 mg PO 3XWK tab 08/21/19 06/14/21 History atorvastatin 40 mg tablet 40 mg PO HS 08/24/19 06/14/21 History baclofen 10 mg tablet 10 mg PO QID 09/22/19 06/14/21 History cyclobenzaprine 10 mg tablet 15 mg PO HS 03/01/20 06/14/21 History hyoscyamine sulfate 0.125 mg tablet 0.125 mg PO QPM 03/01/20 06/14/21 History potassium chloride 10 mEq 10 meq PO BIDM 03/01/20 06/14/21 History tablet,extended release spironolactone 25 mg tablet 25 mg PO QAM 03/01/20 06/14/21 History (Aldactone) tizanidine 4 mg tablet 4 mg PO BID 03/01/20 06/14/21 History Medical Marijuana See Rx Instructions .ROUTE .COMPLEX 03/26/20 06/14/21 History methenamine hippurate 1 gram tablet 1 g PO BID 30 Days #60 tab 04/02/20 06/14/21 Rx ascorbic acid (vitamin C) 500 mg 250 mg PO TID 12/03/20 06/14/21 History tablet (Vitamin C) famotidine 20 mg tablet (Acid 20 mg PO BID 12/03/20 06/14/21 History Transportation Job Titles (famotidine)) zinc sulfate 50 mg zinc (220 mg) 50 mg PO QDL 12/03/20 06/14/21 History capsule Lactobacillus acidoph-L.bulgaricus 1 tab PO BID 01/03/21 06/14/21 History 1 million cell tablet (Floranex) acetaminophen 500 mg capsule 1,000 mg PO Q6H PRN 01/03/21 06/14/21 History bethanechol chloride 5 mg tablet 5 mg PO TID 01/03/21 06/14/21 History insulin regular human 100 unit/mL 1 sliding scale dose SUBCUT 01/03/21 06/14/21 History injection solution (Novolin R USEASDIRECTD Regular U-100 Insulin) mecobalamin-levomefolate 1 tab PO BID 01/03/21 06/14/21 History calcium-pyridoxal phos 3 mg-35 mg-2 mg tablet (I-Nbawxa-M1-B12) menthol 0.44 %-zinc oxide 20.6 % 1 applic TOPICAL QID PRN 01/03/21 06/14/21 History topical ointment (Calmoseptine) methenamin 81.6 mg-hyoscyam 0.12 1 tab PO QPM 01/03/21 06/14/21 History mg-methblue 10.8 fa-gm-tfghgwl tablet nystatin 100,000 unit/gram topical 1 applic TOPICAL BID PRN 01/03/21 06/14/21 History powder nystatin-triamcinolone 100,000 1 applic TOPICAL BID 01/03/21 06/14/21 History unit/g-0.1 % topical cream triamcinolone acetonide 0.1 % 1 applic TOPICAL BID PRN 01/03/21 06/14/21 History topical cream irbesartan 75 mg tablet 75 mg PO DAILY 06/02/21 06/14/21 History warfarin 7.5 mg tablet 7.5 mg PO 4XWK 06/02/21 06/14/21 History metformin 1,000 mg tablet 1,000 mg PO BIDM 06/14/21 06/14/21 History Patient History Medical History Asymptomatic bacteriuria Clostridium difficile infection (Unknown) CVA (cerebral vascular accident) DM type 2 (diabetes mellitus, type 2) Dyslipidemia Dysphagia Fever History of blood clots History of DVT (deep vein thrombosis) Hypertension Hypotension Ileus Kidney disease Leukocytosis Major depressive disorder, recurrent Obesity Occluded PICC line Positive urine culture Quadriplegia BRAIN INJURY 11 YRS AGO Seizure SIRS (systemic inflammatory response syndrome) Sleep apnea (Unknown) OXYGEN 2L/MIN NC HS Syncope 57 year old with know quadriplegia and new onset syncope with change in position UTI (urinary tract infection) RECENT [facility] ADMISION-D/C 12/06/20 Surgical History History of colonoscopy 2010 History of open reduction and internal fixation (ORIF) procedure LEFT FEMUR Insertion of inferior vena caval filter (Unknown) Lithotripsy (Unknown) "laser lithotripsy left ureteral stone 03/17/11 " S/P knee surgery S/P tonsillectomy Suprapubic cystostomy (Unknown) IN PLACE Family History Mother No pertinent family history Family history of diabetes mellitus Father Family hx of colon cancer Social History Smoking Status: Never smoker Second Hand Exposure: No; Do You Dip or Chew Tobacco: No; Tobacco Cessation Education Requested by Patient: No Hx Alcohol Use: No Hx Substance Use: Yes Last Used Substance: Days (ago) Substance Use Type Ot her:: medical card at home with pt . Preferred Language: Ukrainian Communication Ability: Effective Visual Impairment: No Limitations Lcsw Required: No Beliefs That Will Affect Care: None marital status: Current Living Situation: Spouse Current Living Situation Comment: lives at home with and 2 dogs. No kids at home. current occupational status: disabled Other Information That Helps Us Care for You: No Feels Safe at Home: Yes Safety Concerns: Feels Safe At This Time Physical Activity Frequency Comment: QUADRAPLEGIA C4-5-ABLE TO MOVE ARMS, HANDS Assistive Devices: None Review of Systems Review of Systems: 14 point review of systems negative outside of what is listed above in HPI Physical Exam Physical Exam: General: Alert and oriented, no acute distress HEENT: Normocephalic, mucous membranes moist Cardiovascular: Regular rate Pulmonary: Nonlabored respirations Abdomen: Nondistended. 18 Lithuanian silicone SP tube in place draining clear urine. Large pannus. : Acquired buried penis Extremities: Moves all 4 spontaneously Neuro: No gross deficits Skin: Warm, dry, no rashes noted Results & Data ([facility]) Vital Signs (Past 12 Hours) Vital Signs Temp Pulse Pulse Resp BP BP Pulse Ox 06/15/21 08:10 36.8 C 82 18 117/67 92 06/15/21 07:11 82 06/15/21 02:00 06/15/21 01:57 96 H 06/15/21 01:51 37.0 C 96 H 16 129/77 92 06/15/21 01:16 88 18 127/74 100 06/14/21 23:00 89 18 112/63 100 Pulse Ox 06/15/21 08:10 06/15/21 07:11 06/15/21 02:00 92 06/15/21 01:57 06/15/21 01:51 92 06/15/21 01:16 06/14/21 23:00 PG Care Time/CCT Total # of Minutes Spent Total Time Spent with Patient: Total time spent is greater than 50% in coordination of care (as documented) at patient's floor/unit and/or counseling patient: [place] [address] Inpt Consult Level 5 Patient Type Established History Expanded Problem Focused Exam Expanded Problem Focused Medical Decision Making Moderate Complexity Diagnoses Neurogenic bladder N31.9
--- NOTE | 2021-06-15 10:15 | Pharmacy Report ---
Pharmacy Glycemic Short Note 2 - Date of Service June 15, 2021 - Glycemic Short BSG Results (Last 24 hours): 06/14/21 06/15/21 06/15/21 11:55 03:01 06:30 Glucose 170 H 191 H POC Glucose 144 H 06/15/21 08:13 Glucose POC Glucose 225 H OUTPATIENT ANTIDIABETIC REGIMEN: * Novolin 70/30 premixed insulin 56 units SQ BIDM * Metformin 1gm PO BIDM ASSESSMENT: * 60yo T2DM male well known to pharmacy from previous admissions/glycemic consults. Most recently 06/03-06/13 admission * Pt re-started on dexamethasone 6mg IV daily - will resume SQ basal bolus insulin regimen that worked well with steroids and titrate based on BSG trends. PLAN FOR INPATIENT GLYCEMIC CONTROL: * Hold outpatient oral diabetes medications * Basal insulin * NPH 60-70 units SQ BIDM while on steroids. * Will decrease to 30-40 units SQ BIDM when steroids dc * Bolus insulin * NovoLog per scale ACHS or Q6hrs while NPO * Goal Range: Low 110 mg/dL - High 140 mg/dL * Correction Factor: 7 mg/dL/unit * Nutritional / Prandial insulin per carb ratio of 1 unit per 2 grams CHO consumed PLAN FOR DISCHARGE: * Patient's HBA1C currently is 8.4% which is above goal of <8% for his comorbidities. * Recommend working with outpatient provider to optimize insulin regimen by checking BSG at least twice per day at varying times per day then adjusting insulin to goal blood sugars. * Support Patient Self-Management * Healthy Lifestyle (diet, exercise, and smoking cessation) * Disease self-management (SMBG) * Prevention of complications (BP, Lipid goals, Immunizations) * Consider outpatient Diabetes Self-Management Education & Support * Most patients on multiple-dose insulin (MDI) should SMBG * Prior to meals and snacks * At bedtime * Prior to exercise * When they suspect low blood glucose * After treating low blood glucose until they are normoglycemic * Prior to critical tasks such as driving * Occasionally postprandially
--- NOTE | 2021-06-15 10:45 | Ultrasound Report ---
ULTRASOUND OF THE CAROTID ARTERIES CLINICAL HISTORY: Syncope. COMPARISON STUDY: Carotid artery ultrasound dated 05/06/2018. TECHNIQUE: Real-time, grayscale, and color Doppler sonography of the carotid arteries is performed. I mages are reviewed in the transverse and longitudinal planes. FINDINGS: Blood pressures were not assessed due to the presence of IV catheters. The carotid arteries are patent bilaterally and demonstrate antegrade flow. There is minimal atherosc lerotic plaque identified. Normal doppler arterial waveforms are seen throughout. Velocity measuremen ts are listed below. Common carotid peak systolic velocity (cm/sec): RIGHT: 118 LEFT: 102 ICA proximal peak systolic velocity (cm/sec): RIGHT: 89 LEFT: 67 ICA mid peak systolic velocity (cm/sec): RIGHT: 81 LEFT: 85 ICA distal peak systolic velocity (cm/sec): RIGHT: 80 LEFT: 79 ICA/CC peak systolic ratio: RIGHT: 0.8 LEFT: 0.8 Antegrade flow was shown in the vertebral arteries. The external carotid arteries are patent. IMPRESSION: 1. There is no sonographic evidence of hemodynamically significant stenosis in the right or left vera tid arterial system. 2. Antegrade flow is shown in the vertebral arteries. ACT 112: Negative or not required by law. Electronically signed by: José Wise M.D. 06/15/2021 10:44 AM
--- NOTE | 2021-06-15 11:51 | Electrocardiogram Report ---
Test Reason : Blood Pressure : / mmHG Vent. Rate : 082 BPM Atrial Rate : 082 BPM P-R Int : 168 ms QRS Dur : 146 ms QT Int : 406 ms P-R-T Axes : 040 024 -10 degrees QTc Int : 474 ms Normal sinus rhythm Right bundle branch block Abnormal ECG When compared with ECG of 02-JUN-2021 19:06, No significant change was found Confirmed by Jose Alfredo Courtney ([id number]) on 06/15/2021 11:50:54 AM Referred By: REFERRED SELF Confirmed By:Jose Alfredo Courtney
[2021-06-15] MEDS: ZINC SULFATE 220 MG CAPSULE PO SCH (12:37)
[2021-06-15] MEDS: WARFARIN SOD 5 MG TAB PO SCH (16:39)
[2021-06-15] MEDS: FLUCONAZOLE 50 MG TAB PO SCH (16:53)
[2021-06-15] MEDS: ACETAMINOPHEN 500 MG TAB PO PRN (20:11)
[2021-06-15] MEDS: MELATONIN 3 MG TAB PO PRN (20:11)
[2021-06-16 05:57] LABS: Hematocrit (blood only) 35.6 % (42-52); Hemoglobin 11.5 g/dL (14.0-18.0); Mean Corpuscular Hgb Conc 32.3 g/dL (32-36); Mean Corpuscular Volume 89.7 fL (80-100); Mean Platelet Volume 10.2 fL (7.4-10.4); Platelet Count 213 K/uL (130-400); RDW Coefficient of Variation 15.8 % (11.5-14.5); RDW Standard Deviation 51.6 fL (36.4-46.3); Red Blood Count 3.97 M/uL (4.7-6.1); White Blood Count 15.16 K/uL (4.8-10.8)
[2021-06-16 06:03] LABS: INR 1.9 (0.9-1.1); Prothrombin Time 18.1 Seconds (9.0-12.0)
[2021-06-16 06:14] LABS: Calcium 8.6 mg/dl (8.5-10.1); Est GFR (Non-African American) 65.5 ml/min; Potassium 4.4 mmol/L (3.5-5.1)
[2021-06-16] MEDS: CEFEPIME 2,000 MG in SYRINGE 0 ML IV SCH ×3 (06:30→22:48)
[2021-06-16] MEDS: HEPARIN SOD 5,000 UNIT/0.5 ML VIAL SQ SCH ×3 (06:30→22:49)
[2021-06-16] MEDS: METHENAMINE HIPPURATE 1 GM TAB PO SCH ×2 (08:30→21:02)
[2021-06-16] MEDS: BACLOFEN 10 MG TAB PO SCH ×4 (08:31→20:52)
[2021-06-16] MEDS: MAGNESIUM OXIDE 400 MG TAB PO SCH ×2 (08:31→21:01)
[2021-06-16] MEDS: tiZANidine HCL 4 MG TABLET PO SCH ×3 (08:31→21:03)
[2021-06-16] MEDS: rOPINIRole HCL 1 MG TABLET PO SCH ×4 (08:31→21:03)
[2021-06-16] MEDS: GABAPENTIN 800 MG TAB PO SCH ×2 (08:31→20:55)
[2021-06-16] MEDS: allopurinoL 100 MG TAB PO SCH ×2 (08:31→20:51)
[2021-06-16] MEDS: FAMOTIDINE 20 MG TAB PO SCH ×2 (08:31→20:54)
[2021-06-16] MEDS: ADVANCED PROBIOTIC 1250 MG CAPSULE PO SCH (08:32)
[2021-06-16] MEDS: ESCITALOPRAM OXALATE 20 MG TAB PO SCH (08:32)
[2021-06-16] MEDS: PANTOprazole 40 MG TAB PO SCH (08:32)
[2021-06-16] MEDS: SPIRONOLACTONE 25 MG TAB PO SCH (08:32)
[2021-06-16] MEDS: FERROUS GLUCONATE 324 MG TAB PO SCH (08:32)
[2021-06-16] MEDS: dexAMETHasone 6 MG in SYRINGE 0 ML IV SCH (08:33)
[2021-06-16] MEDS: MULTIVITAMIN TAB PO SCH (08:33)
[2021-06-16] MEDS: FLUCONAZOLE 50 MG TAB PO SCH (08:33)
[2021-06-16] MEDS: INSULIN HUMAN NPH SC SCH ×2 (08:35→17:30)
[2021-06-16] MEDS: INSULIN ASPART 100 UNITS/ML 3 ML PEN SC SCH ×4 (08:35→21:00)
--- NOTE | 2021-06-16 12:03 | Pharmacy Report ---
Pharmacy Glycemic Short Note 2 - Date of Service June 16, 2021 - Glycemic Short BSG Results (Last 24 hours): 06/15/21 06/15/21 06/16/21 16:31 20:15 05:28 Glucose 139 H POC Glucose 212 H 182 H 06/16/21 06/16/21 07:46 11:39 Glucose POC Glucose 132 H 174 H OUTPATIENT ANTIDIABETIC REGIMEN: * Novolin 70/30 premixed insulin 56 units SQ BIDM * Metformin 1gm PO BIDM ASSESSMENT: 06/16/21 * Patient's BSGs yesterday were [phone] mg/dL and fasting today is 132 mg/dL. * Patient received 284 units of insulin yesterday (150 units of basal and 134 units of bolus). * Continue NPH with slightly lower dose of 60 units if BSG < 100 mg/dL to prevent too aggressive dosing. Agree that patient's basal needs around 150-160 units with dexamethasone. * Continue Novolog as BSGs steady yesterday. Background * 60yo T2DM male well known to pharmacy from previous admissions/glycemic consults. Most recently 06/03-06/13 admission * Pt re-started on dexamethasone 6mg IV daily - will resume SQ basal bolus insulin regimen that worked well with steroids and titrate based on BSG trends. PLAN FOR INPATIENT GLYCEMIC CONTROL: * Hold outpatient oral diabetes medications * Basal insulin * NPH 60-70-80 units SQ BIDM while on steroids. * Will decrease to 30-40 units SQ BIDM when steroids dc * Bolus insulin * NovoLog per scale ACHS or Q6hrs while NPO * Goal Range: Low 110 mg/dL - High 140 mg/dL * Correction Factor: 7 mg/dL/unit * Nutritional / Prandial insulin per carb ratio of 1 unit per 2 grams CHO consumed PLAN FOR DISCHARGE: * Patient's HBA1C currently is 8.4% which is above goal of <8% for his comorbidities. * Recommend working with outpatient provider to optimize insulin regimen by checking BSG at least twice per day at varying times per day then adjusting insulin to goal blood sugars. * Support Patient Self-Management * Healthy Lifestyle (diet, exercise, and smoking cessation) * Disease self-management (SMBG) * Prevention of complications (BP, Lipid goals, Immunizations) * Consider outpatient Diabetes Self-Management Education & Support * Most patients on multiple-dose insulin (MDI) should SMBG * Prior to meals and snacks * At bedtime * Prior to exercise * When they suspect low blood glucose * After treating low blood glucose until they are normoglycemic * Prior to critical tasks such as driving * Occasionally postprandially
--- NOTE | 2021-06-16 12:10 | Urology Progress Note ---
Date of Service June 16, 2021 Assessment & Plan (1) Neurogenic bladder: Plan: 60-year-old male with a history of paraplegia and resultant neurogenic bladder managed with an SP tube, presented to the emergency department due to witnessed syncopal event. Currently undergoing work-up for syncope. -Urology consulted for concern for urinary tract infection and request for SP tube exchange. -Patient examined with Dr. Mcgill. -T-max in 24 hours 38.3 C, afebrile this AM. -Labs reviewed - white count 15.16, creatinine stable. -Final urine culture positive for Pseudomonas Aeruginosa, pansensitive. -Unclear if this is colonization or acute urinary tract infection. Recommend continuing antibiotic therapy and adding on Diflucan as he did have a yeast in his UA and yeast will take several days to grow on culture. -Suprapubic catheter exchanged at bedside today without difficulty. -Urology will sign off at this time. Will schedule follow-up in clinic to establish care as he needs surveillance for his kidney stones as well as bladder cancer with a chronic SP tube. Please contact us with any additional questions/concerns or changes in patient status. -Expected clinical course reviewed with patient, all questions answered. Admission and Anticipated Discharge Date Admission Date: June 14, 2021 Supervising Physician Co-Signing Physician Notes Discussed patient with MARIA GUADALUPE. Agree with plan. Saw patient personally and helped with exchange of SP tube. F/U as outpatient to discuss non-obstructing stones. Subjective Patient examined at bedside, resting comfortably. Offers no complaints this afternoon. Reports he had a fever overnight. Denies fevers/chills today. Denies dysuria or hematuria. Denies abdominal or flank pain. Denies nausea or vomiting. Feels better overall since admission. Chart review: T-max in 24 hours 38.3 C, afebrile this AM. Wbc 15.16 Hgb 11.5 Creatinine 1.19 Final urine culture 06/14 positive for Pseudomonas, pansensitive. Preliminary blood cultures no growth after 24 hours. Patient currently on IV Cefepime. Denies additional urologic concerns today. Review of Systems Constitutional: as per Subjective / HPI and + fever; no chills Gastrointestinal: as per Subjective / HPI; no nausea and no vomiting Genitourinary: + as per Subjective / HPI Physical Exam Constitutional: well developed and + obese; no acute distress and not ill appearing Respiratory: normal respiratory effort and able to speak in complete sentences; no respiratory distress and no audible wheezes Gastrointestinal (Abdomen): Percussion/Palpation: abdomen soft; abdomen nontender and no guarding Psychiatric: Orientation: alert, oriented x 3 and cooperative Affect: euthymic affect Genitourinary: no CVA tenderness Lymphatic: Suprapubic catheter intact, patent, draining clear yellow urine. Results & Data ([facility]) Vital Signs (Past 12 Hours) Vital Signs Temp Pulse Pulse Resp BP BP Pulse Ox 06/16/21 11:41 37.1 C 73 18 146/71 H 94 06/16/21 07:50 37.4 C 75 16 110/66 98 06/16/21 07:16 74 06/16/21 04:17 37.5 C 75 19 112/64 92 06/16/21 01:15 98 06/16/21 01:14 37.1 C 77 15 129/67 91 PG Care Time/CCT Total # of Minutes Spent Total Time Spent with Patient: Total time spent is greater than 50% in coordination of care (as documented) at patient's floor/unit and/or counseling patient: Coding Level of Care Code 13494 Subseq Hosp Care Lvl 2 Diagnoses Neurogenic bladder N31.9
[2021-06-16] MEDS: ZINC SULFATE 220 MG CAPSULE PO SCH (12:22)
[2021-06-16] MEDS ORDERED: FUROSEMIDE 40 MG TAB PO SCH (17:00)
[2021-06-16] MEDS: WARFARIN SOD 7.5 MG TAB PO SCH (17:27)
[2021-06-16] MEDS: FUROSEMIDE 20 MG TAB PO SCH (17:29)
--- NOTE | 2021-06-16 18:19 | Hospitalist Progress Note ---
Date of Service June 16, 2021 Assessment & Plan (1) Syncope: Plan: Syncope: Likely due to Hypotension, Hypoxia CT head: No acute intracranial abnormality. Monitor in Telemetry for arrhythmia Difficult to check Orthostatics given Paraplegia Received gentle IV fluids Carotid Ultrasound:There is no sonographic evidence of hemodynamically significant stenosis in the right or left carotid arterial system. Antegrade flow is shown in the vertebral arteries. Consider ECHO eval only if necessary given COVID Positive Fall precautions BP stable Acute on chronic respiratory failure with hypoxia Chronic oxygen dependency-2 L at bedtime COVID-19 pneumonia Covid screen remains positive Completed remdesivir, dexamethasone course last admission CRP:2.68 Hypoxic while on room air while in ED Continue Dexamethasone Day #3 Currently saturating Low 90s on room air Leukocytosis trending down Normal Procalcitonin Hypotensive while in ED BP stable Hold Irbesartan for now Received IV fluids Monitor BP Hypokalemia Potassium levels 3.3> 4.4 Replace electrolytes as needed Hold home potassium supplements Left gluteal decubitus ulcer Wound care nurse eval requested H/O Recurrent UTI Prior Urine cx grew pseudomonas H/O Neurogenic bladder, Chronic Suprapubic Catheter Completed Cefepime course last admission Denies any symptoms currently Urine Cx: Probable Pseudomonas species--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 Continue cefepime Day #3 Appreciate urology input Suprapubic catheter exchanged on 06/16/21 Diabetes Mellitus Most recent hab1c 7.9 on 04/26 Glycemic Pharmacy to help with glycemic management ROBERT on CKD Creatinine 1.4> 1.1 Hold Irbesartan for now Monitor renal function Received IV fluids Lower extremity edema Resume diuretics at lower dose Monitor renal function Hx neurogenic bladder 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 Stable Hx DVT Subtherapeutic INR on Presentation Continue Coumadin Heparin SQ till INR therapeutic Monitor INR: 1.5>1.9 Code Status Full code Disposition Case management o help with discharge planning Admission and Anticipated Discharge Date Admission Date: June 14, 2021 Subjective Patient is seen and examined at bedside Febrile overnight Had suprapubic catheter exchange today Saturating 95% on room air No recurrence of syncopal episode, dizziness Patient denies chest pain, dyspnea, nausea, abdominal pain Review of Systems Review of Systems: All systems reviewed & are unremarkable except as noted in Subjective Physical Exam Physical Exam: Physical Exam: Vitals signs as noted above General Appearance:Morbidly Obese, no apparent distress Head: normocephalic, Atraumatic Eyes: normal inspection, EOMI Neck: supple, Trachea midline Respiratory/Chest: Decreased breath sounds, CTA Cardiovascular: S1, S2, No murmur Abdomen/GI:Soft, Non tender, Bowel sounds present Extremities/Musculoskeletal:normal inspection Neurologic/Psych:AAOX3, B/L Lower extremity paraplegia Skin: normal color, warm Results & Data Results & Data ([facility]) Vital Signs (Past 12 Hours) Vital Signs Temp Pulse Pulse Resp BP BP Pulse Ox 06/16/21 16:00 37.7 C H 75 18 130/66 95 06/16/21 14:19 80 06/16/21 11:41 37.1 C 73 18 146/71 H 94 06/16/21 07:50 37.4 C 75 16 110/66 98 06/16/21 07:16 74 Laboratory Results Short CBC 06/16/21 Range/Units 05:28 WBC 15.16 H (4.8-10.8) K/uL Hgb 11.5 L (14.0-18.0) g/dL Hct 35.6 L (42-52) % Plt Count 213 (130-400) K/uL BMP 06/16/21 05:28 Sodium 138 Potassium 4.4 Chloride 104 Carbon Dioxide 30 BUN 39 H Creatinine 1.19 Glucose 139 H Calcium 8.6
[2021-06-16] MEDS: ATORVASTATIN 40 MG TAB PO SCH (20:52)
[2021-06-16] MEDS: CYCLOBENZAPRINE HCL 5 MG TAB PO SCH (20:53)
[2021-06-16] MEDS: HYOSCYAMINE SULFATE 0.125 MG TAB PO SCH (20:56)
[2021-06-16] MEDS: MELATONIN 3 MG TAB PO PRN (22:59)
[2021-06-17] MEDS: HEPARIN SOD 5,000 UNIT/0.5 ML VIAL SQ SCH ×3 (05:40→22:32)
[2021-06-17] MEDS: CEFEPIME 2,000 MG in SYRINGE 0 ML IV SCH ×3 (05:40→22:21)
[2021-06-17 06:26] LABS: Hematocrit (blood only) 35.4 % (42-52); Hemoglobin 11.4 g/dL (14.0-18.0); Mean Corpuscular Hemoglobin 28.6 pg (25-34); Mean Corpuscular Hgb Conc 32.2 g/dL (32-36); Mean Corpuscular Volume 88.9 fL (80-100); Mean Platelet Volume 9.9 fL (7.4-10.4); Platelet Count 198 K/uL (130-400); RDW Coefficient of Variation 15.7 % (11.5-14.5); RDW Standard Deviation 51.1 fL (36.4-46.3); Red Blood Count 3.98 M/uL (4.7-6.1); White Blood Count 14.55 K/uL (4.8-10.8)
[2021-06-17 06:31] LABS: INR 1.7 (0.9-1.1); Prothrombin Time 16.7 Seconds (9.0-12.0)
[2021-06-17 06:42] LABS: BUN Creatinine Ratio 33.8 (10-20); Calcium 9.1 mg/dl (8.5-10.1); Creatinine Clr Calc Pharmacy 99.2 ml/min; Est GFR (African American) 75.2 ml/min; Est GFR (Non-African American) 64.9 ml/min; Potassium 4.6 mmol/L (3.5-5.1)
[2021-06-17] MEDS ORDERED: INSULIN HUMAN NPH SC ONE (08:00)
[2021-06-17] MEDS: dexAMETHasone 6 MG in SYRINGE 0 ML IV SCH (08:34)
[2021-06-17] MEDS: INSULIN ASPART 100 UNITS/ML 3 ML PEN SC SCH ×4 (08:35→21:23)
[2021-06-17] MEDS: FUROSEMIDE 20 MG TAB PO SCH (08:36)
[2021-06-17] MEDS: tiZANidine HCL 4 MG TABLET PO SCH ×2 (08:36→21:19)
[2021-06-17] MEDS: allopurinoL 100 MG TAB PO SCH ×2 (08:36→21:19)
[2021-06-17] MEDS: ESCITALOPRAM OXALATE 20 MG TAB PO SCH (08:36)
[2021-06-17] MEDS: MULTIVITAMIN TAB PO SCH (08:36)
[2021-06-17] MEDS: GABAPENTIN 800 MG TAB PO SCH ×2 (08:37→21:18)
[2021-06-17] MEDS: FAMOTIDINE 20 MG TAB PO SCH ×2 (08:37→21:19)
[2021-06-17] MEDS: BACLOFEN 10 MG TAB PO SCH ×4 (08:37→21:19)
[2021-06-17] MEDS: SPIRONOLACTONE 25 MG TAB PO SCH (08:37)
[2021-06-17] MEDS: MAGNESIUM OXIDE 400 MG TAB PO SCH ×2 (08:37→21:19)
[2021-06-17] MEDS: METHENAMINE HIPPURATE 1 GM TAB PO SCH ×2 (08:37→21:19)
[2021-06-17] MEDS: rOPINIRole HCL 1 MG TABLET PO SCH ×4 (08:37→21:19)
[2021-06-17] MEDS: PANTOprazole 40 MG TAB PO SCH (08:38)
[2021-06-17] MEDS: FERROUS GLUCONATE 324 MG TAB PO SCH (08:38)
[2021-06-17] MEDS: ADVANCED PROBIOTIC 1250 MG CAPSULE PO SCH (08:38)
--- NOTE | 2021-06-17 09:25 | Pharmacy Report ---
Pharmacy Glycemic Short Note 2 - Date of Service June 17, 2021 - Glycemic Short BSG Results (Last 24 hours): 06/16/21 06/16/21 06/16/21 11:39 16:37 20:35 Glucose POC Glucose 174 H 217 H 205 H 06/17/21 06/17/21 06:07 08:05 Glucose 131 H POC Glucose 120 H OUTPATIENT ANTIDIABETIC REGIMEN: * Novolin 70/30 premixed insulin 56 units SQ BIDM * Metformin 1gm PO BIDM ASSESSMENT: 06/17/21 * Patient's BSGs yesterday were [phone] mg/dL and fasting today is 120 mg/dL. * Patient received 276 units of insulin yesterday (160 units of basal and 116 units of bolus). * Increase morning NPH by 10% to 90 units. Continue NPH 80 units at dinnertime. * Tighten CR slightly to provide more coverage. 06/16/21 * Patient's BSGs yesterday were [phone] mg/dL and fasting today is 132 mg/dL. * Patient received 284 units of insulin yesterday (150 units of basal and 134 units of bolus). * Continue NPH with slightly lower dose of 60 units if BSG < 100 mg/dL to prevent too aggressive dosing. Agree that patient's basal needs around 150-160 units with dexamethasone. * Continue Novolog as BSGs steady yesterday. Background * 60yo T2DM male well known to pharmacy from previous admissions/glycemic consults. Most recently 06/03-06/13 admission * Pt re-started on dexamethasone 6mg IV daily - will resume SQ basal bolus insulin regimen that worked well with steroids and titrate based on BSG trends. PLAN FOR INPATIENT GLYCEMIC CONTROL: * Hold outpatient oral diabetes medications * Basal insulin * NPH 90 units SQ in morning and 80 units SQ with dinner while on steroids. * Will decrease to 30-40 units SQ BIDM when steroids dc * Bolus insulin * NovoLog per scale ACHS or Q6hrs while NPO * Goal Range: Low 110 mg/dL - High 140 mg/dL * Correction Factor: 7 mg/dL/unit * Nutritional / Prandial insulin per carb ratio of 1 unit per 1.5 grams CHO consumed PLAN FOR DISCHARGE: * Patient's HBA1C currently is 8.4% which is above goal of <8% for his comorbidities. * Recommend working with outpatient provider to optimize insulin regimen by checking BSG at least twice per day at varying times per day then adjusting insulin to goal blood sugars. * Support Patient Self-Management * Healthy Lifestyle (diet, exercise, and smoking cessation) * Disease self-management (SMBG) * Prevention of complications (BP, Lipid goals, Immunizations) * Consider outpatient Diabetes Self-Management Education & Support * Most patients on multiple-dose insulin (MDI) should SMBG * Prior to meals and snacks * At bedtime * Prior to exercise * When they suspect low blood glucose * After treating low blood glucose until they are normoglycemic * Prior to critical tasks such as driving * Occasionally postprandially
[2021-06-17] MEDS: ZINC SULFATE 220 MG CAPSULE PO SCH (12:01)
[2021-06-17] MEDS ORDERED: WARFARIN SOD 10 MG TAB PO ONE (16:00)
[2021-06-17] MEDS: FUROSEMIDE 40 MG TAB PO SCH (16:15)
[2021-06-17] MEDS ORDERED: INSULIN HUMAN NPH SC SCH (16:30)
--- NOTE | 2021-06-17 17:21 | Hospitalist Progress Note ---
Date of Service June 17, 2021 Assessment & Plan (1) Syncope: Plan: Syncope: Likely due to Hypotension, Hypoxia CT head: No acute intracranial abnormality. Monitor in Telemetry for arrhythmia Difficult to check Orthostatics given Paraplegia Received gentle IV fluids Carotid Ultrasound:There is no sonographic evidence of hemodynamically significant stenosis in the right or left carotid arterial system. Antegrade flow is shown in the vertebral arteries. Consider ECHO eval only if necessary given COVID Positive Fall precautions BP stable Denies dizziness Acute on chronic respiratory failure with hypoxia Chronic oxygen dependency-2 L at bedtime COVID-19 pneumonia Covid screen remains positive Completed remdesivir, dexamethasone course last admission CRP:2.68 Hypoxic while on room air while in ED Continue Dexamethasone Day #4 Currently saturating well on room air Leukocytosis trending down Normal Procalcitonin Recheck CRP tomorrow Hypotensive while in ED BP stable Hold Irbesartan for now Received IV fluids Monitor BP Hypokalemia--Resolved Potassium levels 3.3> 4.6 Replace electrolytes as needed Left gluteal decubitus ulcer Wound care nurse jeremy requested H/O Recurrent UTI Prior Urine cx grew pseudomonas H/O Neurogenic bladder, Chronic Suprapubic Catheter Completed Cefepime course last admission Denies any symptoms currently Urine Cx: Probable Pseudomonas species--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 Continue cefepime Day #4 Appreciate urology input Suprapubic catheter exchanged on 06/16/21 Diabetes Mellitus Most recent hab1c 7.9 on 04/26 Glycemic Pharmacy to help with glycemic management ROBERT on CKD Creatinine 1.4> 1.2 Hold Irbesartan for now Monitor renal function Received IV fluids Lower extremity edema Resumed home diuretics Monitor renal function Hx neurogenic bladder 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 Stable Hx DVT Subtherapeutic INR on Presentation Continue Coumadin Heparin SQ till INR therapeutic Monitor INR: 1.5>1.7 Will give 10mg Coumadin today Code Status Full code Disposition Case management o help with discharge planning Admission and Anticipated Discharge Date Admission Date: June 14, 2021 Subjective Patient is seen and examined at bedside States feeling well today Afebrile for last 24 hours Saturating well on room air Offers no complaints today Patient denies chest pain, dyspnea, nausea, abdominal pain Review of Systems Review of Systems: All systems reviewed & are unremarkable except as noted in Subjective Physical Exam Physical Exam: Physical Exam: Vitals signs as noted above General Appearance:Morbidly Obese, no apparent distress Head: normocephalic, Atraumatic Eyes: normal inspection, EOMI Neck: supple, Trachea midline Respiratory/Chest: Decreased breath sounds, CTA Cardiovascular: S1, S2, No murmur Abdomen/GI:Soft, Non tender, Bowel sounds present Extremities/Musculoskeletal:normal inspection Neurologic/Psych:AAOX3, B/L Lower extremity paraplegia Skin: normal color, warm Results & Data Results & Data ([facility]) Vital Signs (Past 12 Hours) Vital Signs Temp Pulse Pulse Resp BP BP Pulse Ox 06/17/21 15:20 37.1 C 72 20 156/67 H 97 06/17/21 15:06 76 06/17/21 12:00 37.4 C 68 18 126/67 97 06/17/21 08:07 70 06/17/21 08:00 37.1 C 71 18 135/71 98 Laboratory Results Short CBC 06/17/21 Range/Units 06:07 WBC 14.55 H (4.8-10.8) K/uL Hgb 11.4 L (14.0-18.0) g/dL Hct 35.4 L (42-52) % Plt Count 198 (130-400) K/uL BMP 06/17/21 06:07 Sodium 137 Potassium 4.6 Chloride 103 Carbon Dioxide 29 BUN 41 H Creatinine 1.20 Glucose 131 H Calcium 9.1
[2021-06-17] MEDS: MELATONIN 3 MG TAB PO PRN (21:17)
[2021-06-17] MEDS: HYOSCYAMINE SULFATE 0.125 MG TAB PO SCH (21:17)
[2021-06-17] MEDS: CYCLOBENZAPRINE HCL 5 MG TAB PO SCH (21:18)
[2021-06-17] MEDS: ATORVASTATIN 40 MG TAB PO SCH (21:19)
[2021-06-18] MEDS: HEPARIN SOD 5,000 UNIT/0.5 ML VIAL SQ SCH ×3 (05:38→22:17)
[2021-06-18] MEDS: CEFEPIME 2,000 MG in SYRINGE 0 ML IV SCH ×3 (05:38→22:50)
[2021-06-18 07:03] LABS: Hemoglobin 12.1 g/dL (14.0-18.0); Mean Corpuscular Hemoglobin 28.9 pg (25-34); Mean Corpuscular Hgb Conc 32.7 g/dL (32-36); Mean Corpuscular Volume 88.3 fL (80-100); Mean Platelet Volume 10.4 fL (7.4-10.4); Platelet Count 220 K/uL (130-400); RDW Coefficient of Variation 15.6 % (11.5-14.5); RDW Standard Deviation 49.9 fL (36.4-46.3); Red Blood Count 4.19 M/uL (4.7-6.1); White Blood Count 15.71 K/uL (4.8-10.8)
[2021-06-18 07:31] LABS: INR 1.8 (0.9-1.1); Prothrombin Time 17.1 Seconds (9.0-12.0)
[2021-06-18 07:36] LABS: BUN Creatinine Ratio 36.2 (10-20); C Reactive Protein 0.64 mg/dl (0-0.29); Creatinine Clr Calc Pharmacy 92.3 ml/min; Est GFR (African American) 70.2 ml/min; Est GFR (Non-African American) 60.6 ml/min; Potassium 4.2 mmol/L (3.5-5.1)
[2021-06-18] MEDS: GABAPENTIN 800 MG TAB PO SCH ×2 (08:35→21:55)
[2021-06-18] MEDS: ESCITALOPRAM OXALATE 20 MG TAB PO SCH (08:35)
[2021-06-18] MEDS: FUROSEMIDE 40 MG TAB PO SCH ×2 (08:35→17:07)
[2021-06-18] MEDS: dexAMETHasone 6 MG in SYRINGE 0 ML IV SCH (08:35)
[2021-06-18] MEDS: BACLOFEN 10 MG TAB PO SCH ×4 (08:35→21:55)
[2021-06-18] MEDS: FAMOTIDINE 20 MG TAB PO SCH ×2 (08:35→21:57)
[2021-06-18] MEDS: FERROUS GLUCONATE 324 MG TAB PO SCH (08:35)
[2021-06-18] MEDS: allopurinoL 100 MG TAB PO SCH ×2 (08:35→22:50)
[2021-06-18] MEDS: MAGNESIUM OXIDE 400 MG TAB PO SCH ×2 (08:36→21:58)
[2021-06-18] MEDS: rOPINIRole HCL 1 MG TABLET PO SCH ×4 (08:36→21:54)
[2021-06-18] MEDS: ADVANCED PROBIOTIC 1250 MG CAPSULE PO SCH (08:36)
[2021-06-18] MEDS: MULTIVITAMIN TAB PO SCH (08:36)
[2021-06-18] MEDS: SPIRONOLACTONE 25 MG TAB PO SCH (08:36)
[2021-06-18] MEDS: tiZANidine HCL 4 MG TABLET PO SCH ×2 (08:36→21:54)
[2021-06-18] MEDS: METHENAMINE HIPPURATE 1 GM TAB PO SCH ×2 (08:36→21:55)
[2021-06-18] MEDS: PANTOprazole 40 MG TAB PO SCH (08:36)
[2021-06-18] MEDS: INSULIN ASPART 100 UNITS/ML 3 ML PEN SC SCH ×4 (08:37→22:10)
[2021-06-18] MEDS ORDERED: INSULIN HUMAN NPH SC ONE (09:00)
[2021-06-18] MEDS: ZINC SULFATE 220 MG CAPSULE PO SCH (12:39)
--- NOTE | 2021-06-18 13:18 | Pharmacy Report ---
Pharmacy Glycemic Short Note 2 - Date of Service June 18, 2021 - Glycemic Short BSG Results (Last 24 hours): 06/17/21 06/17/21 06/18/21 16:24 20:23 06:08 Glucose 118 H POC Glucose 187 H 227 H 06/18/21 06/18/21 07:40 11:54 Glucose POC Glucose 109 H 138 H OUTPATIENT ANTIDIABETIC REGIMEN: * Novolin 70/30 premixed insulin 56 units SQ BIDM * Metformin 1gm PO BIDM ASSESSMENT: 06/18/21 * Patient's BSGs yesterday were [phone] mg/dL and fasting today is 108 mg/dL. * Patient received 329 units of insulin yesterday (170 units of basal and 159 units of bolus). * Increase morning NPH by 10% to 110 units as dinnertime BSG trends upwards. Reduce evening NPH by 10% as fasting trended downwards. Still TDD of 170 units/day * Continue Novolog. 06/17/21 * Patient's BSGs yesterday were [phone] mg/dL and fasting today is 120 mg/dL. * Patient received 276 units of insulin yesterday (160 units of basal and 116 units of bolus). * Increase morning NPH by 10% to 90 units. Continue NPH 80 units at dinnertime. * Tighten CR slightly to provide more coverage. 06/16/21 * Patient's BSGs yesterday were [phone] mg/dL and fasting today is 132 mg/dL. * Patient received 284 units of insulin yesterday (150 units of basal and 134 units of bolus). * Continue NPH with slightly lower dose of 60 units if BSG < 100 mg/dL to prevent too aggressive dosing. Agree that patient's basal needs around 150-160 units with dexamethasone. * Continue Novolog as BSGs steady yesterday. Background * 60yo T2DM male well known to pharmacy from previous admissions/glycemic con sults. Most recently 06/03-06/13 admission * Pt re-started on dexamethasone 6mg IV daily - will resume SQ basal bolus insulin regimen that worked well with steroids and titrate based on BSG trends. PLAN FOR INPATIENT GLYCEMIC CONTROL: * Hold outpatient oral diabetes medications * Basal insulin * NPH 100 units SQ in morning and 70 units SQ with dinner while on steroids. * Will decrease to 30-40 units SQ BIDM when steroids dc * Bolus insulin * NovoLog per scale ACHS or Q6hrs while NPO * Goal Range: Low 110 mg/dL - High 140 mg/dL * Correction Factor: 7 mg/dL/unit * Nutritional / Prandial insulin per carb ratio of 1 unit per 1.5 grams CHO consumed PLAN FOR DISCHARGE: * Patient's HBA1C currently is 8.4% which is above goal of <8% for his comorbidities. * Recommend working with outpatient provider to optimize insulin regimen by checking BSG at least twice per day at varying times per day then adjusting insulin to goal blood sugars. * Support Patient Self-Management * Healthy Lifestyle (diet, exercise, and smoking cessation) * Disease self-management (SMBG) * Prevention of complications (BP, Lipid goals, Immunizations) * Consider outpatient Diabetes Self-Management Education & Support * Most patients on multiple-dose insulin (MDI) should SMBG * Prior to meals and snacks * At bedtime * Prior to exercise * When they suspect low blood glucose * After treating low blood glucose until they are normoglycemic * Prior to critical tasks such as driving * Occasionally postprandially
[2021-06-18] MEDS: ACETAMINOPHEN 500 MG TAB PO PRN (15:08)
--- NOTE | 2021-06-18 16:05 | Hospitalist Progress Note ---
Date of Service June 18, 2021 Assessment & Plan (1) Syncope: Plan: Syncope at home likely secondary to malaise with possible hypotension/hypoxia. Occurred when patient was transferred to shower chair and this has happened before in previous years. Recent illness with covid, however, also something acute appears to be ongoing as patient has new, increasing leukocytosis and intermittent fevers. Cannot check orthostatics given paraplegia. Initially given IVF, currently feeling better and eating/hydrating.Carotid US WNL. (2) Fever: Plan: Consideration given to infectious and noninfectious causes. Based on work-up noted increase in transaminase levels, lipase and white blood cells. Fever present this afternoon. Initially was ruling out VTE and still awaiting lower extremity Dopplers. Also now more concerned about possible biliary tract infection. We will add Flagyl to cefepime regimen. Additionally, out of concern for skin infection/wound involvement, vancomycin was empirically added. Repeat blood culture pending. As a result of elevated LFTs will also pursue right upper quadrant ultrasound. (3) History of COVID-19: Plan: Recent COVID-19 infection status post treatment. Patient is on room air. He also was febrile with an increasing leukocytosis. At this point he is not qualifying for steroid therapy which may make an underlying infection worse. We will stop steroids now. Chest CT was performed revealing no evidence of pneumonia at this time. Chest CT also did not really reveal evidence of PE. (4) Sacral decubitus ulcer, stage IV: Plan: Stage IV pressure injury present for years, currently takes cefdinir twice daily at home. This is on hold while he is taking cefepime. Wound care following. At this time does not appear to have a superficial infection but may be contributing to leukocytosis (5) Nocturnal hypoxia: Plan: Chronic oxygen dependency-2 L at bedtime (6) Morbid obesity: Plan: complicates many issues. He is mostly bedbound/wheelchair bound, requiring a lift at home to transfer. He has a chronic deep wound on his buttock that has been monitored for several years. He is currently on a specialty air mattress. 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 Patient also has a history of [place] filter which was advised to be removed but was never actually taken out. Will reassess legs again now via ultrasound to determine if VTE may be a cause of fever. Patient is subtherapeutic on Coumadin with an INR of 1.8 today. Continue to trend INR while on coumadin. 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 Patient has been on cefepime for at least 1 week during his last admission and again for almost a week this admission. With ongoing fevers are looking to other cause than the urine. Both Pseudomonas and yeast are likely colonization per infectious disease specialist who was consulted today. I discussed the case with him. Urology also saw patient and exchange suprapubic catheter on June 16. (9) CKD (chronic kidney disease), stage III: Plan: Chronic, at baseline creatinine level. Continue to monitor. (10) DM type 2 (diabetes mellitus, type 2): Plan: Currently at inpatient goal. Appreciate inpatient glycemic pharmacist assistance with management. Continue current insulin regimen. Monitor BSG closely. (11) DVT prophylaxis: Plan: Coumadin Full code Disposition-continue hospitalization. I did discuss the case and planned work- up with his Rody by phone. All questions answered to her satisfaction. Rylee Hay DO [facility] Hospitalist Admission and Anticipated Discharge Date Admission Date: June 14, 2021 Subjective 60 yo M admitted for syncope at home. At that time stated he didn't feel well. Pt is wheelchair bound and relies on help for transfers. He cannot move independently in the bed at baseline. Repeat fevers this afternoon and new worsening WBC Patient denies respiratory symptoms, reports no diarrhea, states not having BMs as often as poss. Denies pain in gluteal wounds which are chronic Denies exposure to ticks Denies abdominal pain, neck stiffness, or headache Denies throat pain or other issues at this time. Dicscussed case and plan with his by phone. Review of Systems Review of Systems: At least ten systems were reviewed and negative except as indicated in HPI above. Physical Exam Physical Exam: CONSTITUTIONAL: morbid obesity, vitals as above, generally well-appearing, NAD EYES: normal conjunctivae, no scleral icterus ENT: external ear and nose normal, MMM NECK: trachea midline RESPIRATORY: clear to auscultation bilaterally, no crackles, rales or wheezes, normal respiratory effort CARDIOVASCULAR: regular rate and rhythm, S1 and 2 heard without murmurs, gallops or rubs, no JVD, no peripheral edema CHEST: inspection of chest was normal GASTROINTESTINAL: soft, nontender, ND, suprapubic catheter in place-I was unable to lift his pannus to evaluate his skin fold comprehensively here, neither was he, no guarding. He has a colostomy in place with normal stool and gas in bag. MUSCULOSKELETAL: paraplegic, generalized weakness, head is normocephalic and atraumatic SKIN: warm and dry, was unable to evaluate his wounds this evening. NEUROLOGIC: CN 2-12 grossly intact, no sensory deficit, normal cognition, normal speech, no tremor PSYCHIATRIC: alert cooperative and oriented to person, place and time. Euthymic mood, makes good eye contact, language grossly intact, recent and remote memory grossly intact. Results & Data Results & Data ([facility]) Vital Signs (Past 12 Hours) Vital Signs Temp Pulse Pulse Resp BP Pulse Ox 06/18/21 15:28 78 06/18/21 15:03 38.0 C H 79 16 131/68 98 06/18/21 11:19 37.2 C 96 H 16 147/73 H 94 06/18/21 07:33 37.4 C 71 16 126/68 91 06/18/21 07:13 77 Laboratory Results Short CBC 06/18/21 Range/Units 06:08 WBC 15.71 H (4.8-10.8) K/uL Hgb 12.1 L (14.0-18.0) g/dL Hct 37.0 L (42-52) % Plt Count 220 (130-400) K/uL BMP 06/18/21 06:08 Sodium 136 Potassium 4.2 Chloride 100 Carbon Dioxide 29 BUN 46 H Creatinine 1.27 Glucose 118 H Calcium 9.0 Medications Administered Current Inpatient Medications Acetaminophen (Acetaminophen 500 Mg Tab) 1,000 mg PO Q6H PRN PRN Reason: Pain Stop: 07/15/21 03:13 Last Admin: 06/18/21 15:08 Dose: 1,000 mg Documented by: Albuterol (Albuterol 0.083% Nebu Soln 3 Ml Vial) 2.5 mg NEB Q6R PRN PRN Reason: Shortness Of Breath Or Wheezing Stop: 07/15/21 02:18 Allopurinol (Allopurinol 100 Mg Tab) 100 mg PO BID JO Stop: 07/15/21 02:18 Last Admin: 06/18/21 08:35 Dose: 100 mg Documented by: Atorvastatin Calcium (Atorvastatin 40 Mg Tab) 40 mg PO HS JO Stop: 07/15/21 02:18 Last Admin: 06/17/21 21:19 Dose: 40 mg Documented by: Baclofen (Baclofen 10 Mg Tab) 10 mg PO QID JO Stop: 07/15/21 02:18 Last Admin: 06/18/21 12:39 Dose: 10 mg Documented by: Cyclobenzaprine HCl (Cyclobenzaprine Hcl 5 Mg Tab) 15 mg PO HS [facility] Stop: 07/15/21 03:14 Last Admin: 06/17/21 21:18 Dose: 15 mg Documented by: Dextrose (Dextrose 50% 50 Ml Syringe) 25 - 50 ml IV UD PRN; Protocol PRN Reason: Hypoglycemia Protocol Stop: 07/15/21 02:18 Escitalopram Oxalate (Escitalopram Oxalate 20 Mg Tab) 20 mg PO QAM JO Stop: 07/15/21 08:59 Last Admin: 06/18/21 08:35 Dose: 20 mg Documented by: Famotidine (Famotidine 20 Mg Tab) 20 mg PO BID JO Stop: 07/15/21 02:18 Last Admin: 06/18/21 08:35 Dose: 20 mg Documented by: Ferrous Gluconate (Ferrous Gluconate 324 Mg Tab) 324 mg PO QAM [facility] Stop: 07/15/21 08:59 Last Admin: 06/18/21 08:35 Dose: 324 mg Documented by: Furosemide (Furosemide 40 Mg Tab) 40 mg PO BID17 JO Stop: 07/17/21 16:59 Last Admin: 06/18/21 08:35 Dose: 40 mg Documented by: Gabapentin (Gabapentin 800 Mg Tab) 800 mg PO BID JO Stop: 07/15/21 02:18 Last Admin: 06/18/21 08:35 Dose: 800 mg Documented by: Glucagon (Glucagon For Inj 1 Mg Vial) 1 mg SQ UD PRN; Protocol PRN Reason: Hypoglycemia Protocol Stop: 07/15/21 02:18 Glucose (Glucose 10 Tabs/Tube) 4 - 8 tabs PO UD PRN; Protocol PRN Reason: Hypoglycemia Protocol Stop: 07/15/21 02:18 Glucose (Glucose 40% Gel 15 Gm Tube) 15 - 30 gm PO UD PRN; Protocol PRN Reason: Hypoglycemia Protocol Stop: 07/15/21 02:18 Heparin Sodium (Porcine) (Heparin Sod 5,000 Unit/0.5 Ml Vial) 7,500 units SQ Q8 JO Stop: 07/15/21 03:14 Last Admin: 06/18/21 12:39 Dose: 7,500 units Documented by: Hyoscyamine (Hyoscyamine Sulfate 0.125 Mg Tab) 0.125 mg PO QPM JO Stop: 07/15/21 02:18 Last Admin: 06/17/21 21:17 Dose: 0.125 mg Documented by: Dexamethasone 6 mg/ Syringe 1.5 mls @ 1 mls/min IV DAILY JO Stop: 07/15/21 03:14 Last Admin: 06/18/21 08:35 Dose: 1 mls/min Documented by: Cefepime HCl 2,000 mg/ Syringe 20 mls @ 5 mls/min IV Q8 [facility]; Protocol Stop: 06/26/21 13:59 Last Admin: 06/18/21 12:39 Dose: 5 mls/min Documented by: Insulin Aspart (Insulin Aspart 100 Units/Ml 3 Ml Pen) 0 units SC ACHS [facility] Stop: 07/15/21 07:29 Last Admin: 06/18/21 12:39 Dose: 30 units Documented by: Insulin Human NPH (Insulin Human Nph) 70 units SC QDD [facility]; Protocol Stop: 07/18/21 16:29 Lactobacillus Acidoph/Casei/Rhamnos (Advanced Probiotic 1250 Mg Capsule) 2 cap PO DAILY JO Stop: 07/15/21 08:59 Last Admin: 06/18/21 08:36 Dose: 2 cap Documented by: Magnesium Oxide (Magnesium Oxide 400 Mg Tab) 400 mg PO BID [facility] Stop: 07/15/21 03:14 Last Admin: 06/18/21 08:36 Dose: 400 mg Documented by: Melatonin (Melatonin 3 Mg Tab) 6 mg PO HS PRN PRN Reason: Sleep Stop: 07/15/21 19:49 Last Admin: 06/17/21 21:17 Dose: 6 mg Documented by: Methenamine Hippurate (Methenamine Hippurate 1 Gm Tab) 1 gm PO BID JO Stop: 07/15/21 02:18 Last Admin: 06/18/21 08:36 Dose: 1 gm Documented by: Miscellaneous (Bethanechol~Order Awaiting Action) 1 ea N/A QS [facility] Stop: 07/15/21 07:59 Last Admin: 06/18/21 15:08 Dose: Not Given Documented by: Miscellaneous (Carbohydrates For Hypoglycemia ) 15 - 30 gm PO UD PRN PRN Reason: Hypoglycemia Protocol Stop: 07/15/21 02:18 Miscellaneous Information (Pharmacy Glycemic Mgmt Consult) 1 ea N/A UD PRN PRN Reason: Consult Stop: 07/15/21 02:18 Miscellaneous Information (Cefepime Consult Active) 1 ea N/A UD PRN PRN Reason: Consult Stop: 07/15/21 03:00 Miscellaneous Medication (Medical Marijuana) 1 dose INH UD PRN PRN Reason: own use Stop: 07/15/21 02:44 Multivitamins (Multivitamin Tab) 1 tab PO [facility] Stop: 07/15/21 08:59 Last Admin: 06/18/21 08:36 Dose: 1 tab Documented by: Pantoprazole Sodium (Pantoprazole 40 Mg Tab) 40 mg PO [facility] Stop: 07/15/21 08:59 Last Admin: 06/18/21 08:36 Dose: 40 mg Documented by: Polyethylene Glycol (Polyethylene (Miralax) 17 Gm Pack) 17 gm PO DAILY PRN PRN Reason: Constipation Stop: 07/15/21 02:18 Potassium Chloride (Potassium Chloride 10 Meq Tabcr) 10 meq PO BIDM [facility] Stop: 07/15/21 03:14 Last Admin: 06/15/21 11:09 Dose: Not Given Documented by: Ropinirole HCl (Ropinirole Hcl 1 Mg Tablet) 1 mg PO QID [facility] Stop: 07/15/21 02:18 Last Admin: 06/18/21 12:39 Dose: 1 mg Documented by: Spironolactone (Spironolactone 25 Mg Tab) 25 mg PO QAM [facility] Stop: 07/15/21 08:59 Last Admin: 06/18/21 08:36 Dose: 25 mg Documented by: Tizanidine HCl (Tizanidine Hcl 4 Mg Tablet) 4 mg PO BID [facility] Stop: 07/15/21 02:18 Last Admin: 06/18/21 08:36 Dose: 4 mg Documented by: Warfarin Sodium (Warfarin Sod 5 Mg Tab) 5 mg PO [id number] [facility] Stop: 07/15/21 15:59 Last Admin: 06/15/21 16:39 Dose: 5 mg Documented by: Warfarin Sodium (Warfarin Sod 7.5 Mg Tab) 7.5 mg PO [id number] [facility] Stop: 07/16/21 15:59 Last Admin: 06/16/21 17:27 Dose: 7.5 mg Documented by: Zinc Sulfate (Zinc Sulfate 220 Mg Capsule) 220 mg PO QDL [facility] Stop: 07/15/21 11:29 Last Admin: 06/18/21 12:39 Dose: 220 mg Documented by:
[2021-06-18] MEDS ORDERED: INSULIN HUMAN NPH SC SCH (16:30)
[2021-06-18] MEDS: WARFARIN SOD 7.5 MG TAB PO SCH (17:07)
[2021-06-18] MEDS ORDERED: CONSULT PHARMACY STA (18:44)
[2021-06-18] MEDS ORDERED: DOXYCYCLINE HYCLATE 100 MG in DEXTROSE 5% 100 ML IV SCH (19:00)
[2021-06-18] MEDS ORDERED: VANCOMYCIN HCL 2,750 MG in SODIUM CHLORIDE 0.9% 500 ML IV ONE (19:45)
[2021-06-18 19:50] LABS: Albumin Level 3.1 gm/dl (3.4-5.0); Bilirubin Direct 0.1 mg/dl (0-0.2); Bilirubin,Total 0.5 mg/dl (0.2-1); Total Protein 7.9 gm/dl (6.4-8.2)
[2021-06-18] MEDS ORDERED: VANCOMYCIN CONSULT ACTIVE PRN (20:12)
[2021-06-18] MEDS ORDERED: OPTIRAY 320 125ml IV ONE (20:14)
[2021-06-18 20:17] LABS: Lyme Ab IgG w/WB Rflx Negative (Negative)
[2021-06-18 20:18] LABS: Lyme Ab IgM w/WB Rflx Negative (Negative)
[2021-06-18 20:32] LABS: Hepatitis B Surf Ag Rflx Conf Neg (Neg)
--- NOTE | 2021-06-18 20:34 | CT Scan Report ---
CT ANGIOGRAM OF THE CHEST CLINICAL HISTORY: Atypical chest pain. COMPARISON STUDY: Chest x-ray dated 06/14/2021. Chest CT dated 05/07/2016. TECHNIQUE: Following the IV administration of 107 cc of Optiray 320, CT angiogram of the chest was pe rformed from the upper abdomen to the thoracic inlet utilizing the pulmonary embolus protocol. Images are reviewed in the axial, sagittal, and coronal planes. 3-D MIPS images are created and assessed. I V contrast was administered without complication. A dose lowering technique was utilized adhering to the principles of ALARA. There is motion artifact, as well as streak artifact from the left arm whic h could not elevated above the chest. CT DOSE: 1047.20 mGy.cm FINDINGS: Thyroid: The left lobe is diminutive versus surgically absent. The right lobe is normal as imaged. Thoracic aorta: The thoracic aorta is normal in caliber and demonstrates standard 3-vessel arch anato my. No dissection is seen. Pulmonary vasculature: The pulmonary trunk is normal in caliber. There are no filling defects identif ied in main, lobar, or segmental pulmonary branches to suggest pulmonary embolus. Heart: The heart is enlarged and without pericardial effusion. The coronary arteries are densely calc ified. Lungs and pleural spaces: Evaluation of the lung parenchyma is degraded by motion artifact. There is no airspace consolidation typical for pneumonia or pleural effusion. Scarring/atelectasis is noted at the lung bases, left greater than right. The trachea and central airways are clear. Mediastinum: There is no mediastinal lymphadenopathy. Renita: Clear. Axillae: There is no axillary lymphadenopathy. Upper abdomen: There is a tiny hiatal hernia. Partially visualized upper abdominal viscera is otherwi se within normal limits. Skeletal structures: The skeletal structures are osteopenic. Degenerative change is noted throughout the thoracic spine. No lytic or blastic bony lesions are seen. Postoperative change is seen involving the left posterior ribs. IMPRESSION: 1. Streak and motion degraded examination. 2. There is no evidence of pulmonary embolus in the main, lobar, or segmental pulmonary arteries. 3. There is no airspace consolidation typical for pneumonia or pleural effusion. 4. Cardiomegaly with advanced coronary artery calcification. 5. Additional findings as above. ACT 112: Negative or not required by law. Electronically signed by: José Wise M.D. 06/18/2021 8:33 PM
[2021-06-18 21:01] LABS: Hepatitis C IgG 13Yrs+Old_Rflx Neg (Neg)
--- NOTE | 2021-06-18 21:03 | Ultrasound Report ---
ULTRASOUND BILATERAL LOWER EXTREMITY VENOUS CLINICAL HISTORY: Atypical chest pain. Immobilized patient. Clinical concern for deep venous thrombos is. COMPARISON STUDY: Right lower extremity venous ultrasound dated 02/21/2016. TECHNIQUE: Real-time, grayscale, and color Doppler sonography of the deep veins of the right and left lower extremity was performed from the inguinal crease to the calf. Compression and augmentation wer e utilized. FINDINGS: There is no sonographic evidence of deep venous thrombosis identified in the right or left lower extremity. The common femoral, superficial femoral, and popliteal veins are patent and normally compressible bilaterally. The greater saphenous vein and the profunda femoris vein at the junction w ith the common femoral vein are clear in both legs. The visualized calf veins are patent bilaterally. IMPRESSION: There is no sonographic evidence of deep venous thrombosis identified in the right or lef t lower extremity. ACT 112: Negative or not required by law. Electronically signed by: José Wise M.D. 06/18/2021 9:02 PM
--- NOTE | 2021-06-18 21:47 | Ultrasound Report ---
US liver CLINICAL INDICATION: MN ^Y ^elev LFT, fever. TECHNIQUE: Multiple real-time sonographic images of the right upper quadrant were obtained. Comparison: None available at the time of this dictation. FINDINGS: The liver is diffusely echogenic in appearance with poor ultrasound penetration, with normal contour, which is consistent with fatty infiltration. No focal mass lesions are seen. No intrahepatic estevan brandi dilatation is seen. Low level internal echoes are identified layering dependently within the gal lbladder, which is consistent with gallbladder sludge. The gallbladder wall is not thickened. There i s no pericholecystic fluid present. The common duct is not visualized. A sonographic Zuñiga's sign w as not elicited by the oil recovery operator. The distal pancreas is not visualized due to overlying bowel g as. The visualized portions of the pancreas are unremarkable. The right kidney shows normal echogenicity, cortical thickness and renal contour. The right kidney sh ows no evidence of hydronephrosis or mass. No ascites or free fluid is seen in Rivas's pouch. IMPRESSION: Hepatic steatosis. Gallbladder sludge. No new acute abnormality. ACT 112: Negative or not required by law. Electronically signed by: Jorge Hernandez M.D. 06/18/2021 9:46 PM
[2021-06-18] MEDS: ATORVASTATIN 40 MG TAB PO SCH (21:54)
[2021-06-18] MEDS: CYCLOBENZAPRINE HCL 5 MG TAB PO SCH (21:54)
[2021-06-18] MEDS: HYOSCYAMINE SULFATE 0.125 MG TAB PO SCH (21:55)
[2021-06-18] MEDS: MELATONIN 3 MG TAB PO PRN (22:02)
[2021-06-18] MEDS: POLYETHYLENE (MIRALAX) 17 GM PACK PO PRN (22:02)
[2021-06-18] MEDS: metroNIDAZOLE 500 MG/100 ML BAG IV SCH (22:51)
[2021-06-19] MEDS: HEPARIN SOD 5,000 UNIT/0.5 ML VIAL SQ SCH ×3 (05:54→23:07)
[2021-06-19] MEDS: metroNIDAZOLE 500 MG/100 ML BAG IV SCH ×3 (05:55→23:49)
[2021-06-19] MEDS: CEFEPIME 2,000 MG in SYRINGE 0 ML IV SCH ×3 (05:55→23:48)
[2021-06-19 06:40] LABS: Basophils # (auto) 0.01 K/uL (0-0.2); Basophils % (auto) 0.1 %; Eosinophils # (auto) 0.01 K/uL (0-0.5); Eosinophils % (auto) 0.1 %; Hemoglobin 12.3 g/dL (14.0-18.0); Immature Granulocytes # (auto) 0.03 K/uL (0.00-0.02); Immature Granulocytes % (auto) 0.2 %; Lymphocytes # (auto) 2.67 K/uL (1.2-3.4); Lymphocytes % (auto) 16.5 %; Mean Corpuscular Hemoglobin 28.7 pg (25-34); Mean Corpuscular Hgb Conc 33.2 g/dL (32-36); Mean Corpuscular Volume 86.4 fL (80-100); Mean Platelet Volume 10.1 fL (7.4-10.4); Monocytes # (auto) 1.96 K/uL (0.11-0.59); Monocytes % (auto) 12.1 %; Platelet Count 209 K/uL (130-400); RDW Coefficient of Variation 15.7 % (11.5-14.5); RDW Standard Deviation 50.4 fL (36.4-46.3); Red Blood Count 4.28 M/uL (4.7-6.1); White Blood Count 16.18 K/uL (4.8-10.8)
[2021-06-19 07:07] LABS: Albumin Level 2.9 gm/dl (3.4-5.0); BUN Creatinine Ratio 38.4 (10-20); Calcium 9.2 mg/dl (8.5-10.1); Creatinine Clr Calc Pharmacy 82.6 ml/min; Est GFR (African American) 64.6 ml/min; Est GFR (Non-African American) 55.8 ml/min; Potassium 3.9 mmol/L (3.5-5.1)
[2021-06-19 07:10] LABS: Albumin Globulin Ratio 0.6 (0.9-2); Bilirubin,Total 0.5 mg/dl (0.2-1); Globulin 4.6 gm/dl (2.5-4.0); Total Protein 7.5 gm/dl (6.4-8.2)
[2021-06-19 07:15] LABS: INR 1.8 (0.9-1.1); Prothrombin Time 17.6 Seconds (9.0-12.0)
[2021-06-19] MEDS ORDERED: INSULIN HUMAN NPH SC ONE (08:00)
[2021-06-19] MEDS: ADVANCED PROBIOTIC 1250 MG CAPSULE PO SCH (08:17)
[2021-06-19] MEDS: rOPINIRole HCL 1 MG TABLET PO SCH ×4 (08:17→20:40)
[2021-06-19] MEDS: VANCOMYCIN HCL 1,000 MG in SODIUM CHLORIDE 0.9% 250 ML IV SCH ×2 (08:17→20:43)
[2021-06-19] MEDS: MULTIVITAMIN TAB PO SCH (08:18)
[2021-06-19] MEDS: PANTOprazole 40 MG TAB PO SCH (08:18)
[2021-06-19] MEDS: FERROUS GLUCONATE 324 MG TAB PO SCH (08:18)
[2021-06-19] MEDS: tiZANidine HCL 4 MG TABLET PO SCH ×2 (08:18→20:42)
[2021-06-19] MEDS: FUROSEMIDE 40 MG TAB PO SCH ×2 (08:18→17:12)
[2021-06-19] MEDS: FAMOTIDINE 20 MG TAB PO SCH ×2 (08:18→20:41)
[2021-06-19] MEDS: BACLOFEN 10 MG TAB PO SCH ×4 (08:18→20:42)
[2021-06-19] MEDS: SPIRONOLACTONE 25 MG TAB PO SCH (08:18)
[2021-06-19] MEDS: ESCITALOPRAM OXALATE 20 MG TAB PO SCH (08:18)
[2021-06-19] MEDS: GABAPENTIN 800 MG TAB PO SCH ×2 (08:18→20:40)
[2021-06-19] MEDS: INSULIN ASPART 100 UNITS/ML 3 ML PEN SC SCH ×4 (09:05→21:55)
[2021-06-19] MEDS: allopurinoL 100 MG TAB PO SCH ×2 (09:13→20:42)
--- NOTE | 2021-06-19 09:32 | Gastrointestinal Consultation ---
Date of Consultation June 19, 2021 Assessment & Plan (1) Fever: 60 year old medically complex male, recent COVID-19 infection 05/2021 w/ elevated AST/ALT and sludge on imaging - gi asked to evaluate for biliary source of fevers. Await blood cultures Would continue with IV ABX as doing Consider MRCP today Will discuss with attending, consider EUS tomorrow pending results of above Thank you for allowing us to participate in the care of this patient. Please call with any acute changes, questions or concerns. Please see addendum below with additional recommendation from my supervising physician. Supervising Physician Co-Signing Physician Notes I have seen and examined the patient with SHERMAN Kingsley whose note reflects our findings and plan. Patient with multiple comorbidities admitted now after recent COVID pneumonia after a syncopal episode. Now with fevers. Has a chronic indwelling suprapubic urinary catheter, recent pneumonia, chronic decubitus ulcer with ischial involvement, with fevers. Noted to have mildly elevated transaminases with normal bili and AP. Sludge in GB on imaging but no s/s of biliary obstruction. He has many other potential sources of infection and explanation for fevers. Can consider additional biliary imaging if no other source identified. History of Present Illness Reason for Consultation: elevated LFTs, fever Requesting Physician: Satnam Attending Physician: Rylee Hay, History of Present Illness 60 year old male with history of incomplete quadriplegia, ileus status post colostomy, C. difficile, chronic indwelling Martinez catheter, asymptomatic bacteriuria, DVT on Coumadin, CVA, DM2, DLD, HTN, osteomyelitis on cefdinir, seizures, COVID-19 06/02/21 GI asked to evaluate for elevated transaminases and fevers. Pt was seen and evaluated, chart reviewed. Notes he is feeling well. Denies abd pain. No nausea, vomiting. No food aversion. Denies any black or bloody stools. Fevers have been intermittent- there was concern about possible biliary tract infection given elevated LFTs and sludge. Flagyl added to cefepime regimen. Blood cx pending. Allergies Allergy/AdvReac Type Severity Reaction Status Date / Time codeine Allergy Severe THROAT Verified 06/14/21 11:17 SWELLS latex Allergy Intermediate welts Verified 06/14/21 11:17 piperacillin Allergy Intermediate RASH Verified 06/14/21 11:17 Sulfa (Sulfonamide Allergy Intermediate HIVES Verified 06/14/21 11:17 Antibiotics) tazobactam Allergy Intermediate RASH Verified 06/14/21 11:17 aztreonam Allergy Unknown unknown Verified 06/14/21 11:17 metoclopramide [From Reglan] AdvReac Mild lethargy Verified 06/14/21 11:17 Home Medications Medication Instructions Recorded Confirmed Type allopurinol 100 mg tablet 100 mg PO BID 05/07/18 06/14/21 History ferrous gluconate 324 mg (38 mg 324 mg PO QAM 05/07/18 06/14/21 History iron) tablet furosemide 40 mg tablet 40 mg PO BID 05/07/18 06/14/21 History gabapentin 800 mg tablet 800 mg PO BID 05/07/18 06/14/21 History magnesium oxide 400 mg (241.3 mg 400 mg PO BID 05/07/18 06/14/21 History magnesium) tablet multivitamin 1 tab PO QAM 05/07/18 06/14/21 History pantoprazole 40 mg tablet,delayed 40 mg PO QAM 05/07/18 06/14/21 History release ropinirole 1 mg tablet 1 mg PO QID 05/07/18 06/14/21 History escitalopram oxalate 20 mg tablet 20 mg PO QAM tab 08/21/19 06/14/21 History insulin human U-100 NPH-regulr 56 unit SUBCUT BID 08/21/19 06/14/21 History 70-30 mix 100 unit/mL subcutaneous susp (Novolin 70/30 U-100 Insulin) warfarin 5 mg tablet 5 mg PO 3XWK tab 08/21/19 06/14/21 History atorvastatin 40 mg tablet 40 mg PO HS 08/24/19 06/14/21 History baclofen 10 mg tablet 10 mg PO QID 09/22/19 06/14/21 History cyclobenzaprine 10 mg tablet 15 mg PO HS 03/01/20 06/14/21 History hyoscyamine sulfate 0.125 mg tablet 0.125 mg PO QPM 03/01/20 06/14/21 History potassium chloride 10 mEq 10 meq PO BIDM 03/01/20 06/14/21 History tablet,extended release spironolactone 25 mg tablet 25 mg PO QAM 03/01/20 06/14/21 History (Aldactone) tizanidine 4 mg tablet 4 mg PO BID 03/01/20 06/14/21 History Medical Marijuana See Rx Instructions .ROUTE .COMPLEX 03/26/20 06/14/21 History methenamine hippurate 1 gram tablet 1 g PO BID 30 Days #60 tab 04/02/20 06/14/21 Rx ascorbic acid (vitamin C) 500 mg 250 mg PO TID 12/03/20 06/14/21 History tablet (Vitamin C) famotidine 20 mg tablet (Acid 20 mg PO BID 12/03/20 06/14/21 History Business Supervisor (famotidine)) zinc sulfate 50 mg zinc (220 mg) 50 mg PO QDL 12/03/20 06/14/21 History capsule Lactobacillus acidoph-L.bulgaricus 1 tab PO BID 01/03/21 06/14/21 History 1 million cell tablet (Floranex) acetaminophen 500 mg capsule 1,000 mg PO Q6H PRN 01/03/21 06/14/21 History bethanechol chloride 5 mg tablet 5 mg PO TID 01/03/21 06/14/21 History insulin regular human 100 unit/mL 1 sliding scale dose SUBCUT 01/03/21 06/14/21 History injection solution (Novolin R USEASDIRECTD Regular U-100 Insulin) mecobalamin-levomefolate 1 tab PO BID 01/03/21 06/14/21 History calcium-pyridoxal phos 3 mg-35 mg-2 mg tablet (V-Svamop-F3-B12) menthol 0.44 %-zinc oxide 20.6 % 1 applic TOPICAL QID PRN 01/03/21 06/14/21 History topical ointment (Calmoseptine) methenamin 81.6 mg-hyoscyam 0.12 1 tab PO QPM 01/03/21 06/14/21 History mg-methblue 10.8 ts-gk-urrktgy tablet nystatin 100,000 unit/gram topical 1 applic TOPICAL BID PRN 01/03/21 06/14/21 History powder nystatin-triamcinolone 100,000 1 applic TOPICAL BID 01/03/21 06/14/21 History unit/g-0.1 % topical cream triamcinolone acetonide 0.1 % 1 applic TOPICAL BID PRN 01/03/21 06/14/21 History topical cream irbesartan 75 mg tablet 75 mg PO DAILY 06/02/21 06/14/21 History warfarin 7.5 mg tablet 7.5 mg PO 4XWK 06/02/21 06/14/21 History metformin 1,000 mg tablet 1,000 mg PO BIDM 06/14/21 06/14/21 History Patient History Medical History Asymptomatic bacteriuria Clostridium difficile infection (Unknown) CVA (cerebral vascular accident) DM type 2 (diabetes mellitus, type 2) Dyslipidemia Dysphagia Fever History of blood clots History of DVT (deep vein thrombosis) Hypertension Hypotension Ileus Kidney disease Leukocytosis Major depressive disorder, recurrent Obesity Occluded PICC line Positive urine culture Quadriplegia BRAIN INJURY 11 YRS AGO Seizure SIRS (systemic inflammatory response syndrome) Sleep apnea (Unknown) OXYGEN 2L/MIN NC HS Syncope 57 year old with know quadriplegia and new onset syncope with change in position UTI (urinary tract infection) RECENT [facility] ADMISION-D/C 12/06/20 Surgical History History of colonoscopy 2010 History of open reduction and internal fixation (ORIF) procedure LEFT FEMUR Insertion of inferior vena caval filter (Unknown) Lithotripsy (Unknown) "laser lithotripsy left ureteral stone 03/17/11 " S/P knee surgery S/P tonsillectomy Suprapubic cystostomy (Unknown) IN PLACE Family History Mother No pertinent family history Family history of diabetes mellitus Father Family hx of colon cancer Social History Smoking Status: Never smoker Second Hand Exposure: No; Do You Dip or Chew Tobacco: No; Tobacco Cessation Education Requested by Patient: No Hx Alcohol Use: No Hx Substance Use: Yes Last Used Substance: Days (ago) Substance Use Type Other:: medical card at home with pt . Preferred Language: Stateless Communication Ability: Effective Visual Impairment: No Limitations Termite Control Technician Required: No Beliefs That Will Affect Care: None marital status: Current Living Situation: Spouse Current Living Situation Comment: lives at home with and 2 dogs. No kids at home. current occupational status: disabled Other Information That Helps Us Care for You: No Feels Safe at Home: Yes Safety Concerns: Feels Safe At This Time Physical Activity Frequency Comment: QUADRAPLEGIA C4-5-ABLE TO MOVE ARMS, HANDS Assistive Devices: Oxygen - at Night Review of Systems Review of Systems: All systems reviewed & are unremarkable except as noted in HPI & below Physical Exam Constitutional: WD/WN, vitals as above Neck: trachea midline, no thyromegaly Respiratory: normal respiratory effort, lungs clear to auscultation Cardiovascular: RRR, no murmur, no edema Gastrointestinal (Abdomen): normal bowel sounds, soft, nontender, no hepatosplenomegaly Skin: no rashes, warm and dry Results & Data ([facility]) Vital Signs (Past 12 Hours) Vital Signs Temp Pulse Pulse Resp BP BP Pulse Ox 06/19/21 07:43 37.5 C 79 18 104/67 99 06/19/21 07:13 78 06/19/21 04:00 36.6 C 69 20 119/63 96 06/19/21 00:00 81 06/18/21 23:00 37 C 70 20 152/71 H 97 Laboratory Results 06/19/21 06/19/21 06/19/21 Range/Units 08:22 06:08 06:08 WBC 16.18 H (4.8-10.8) K/uL RBC 4.28 L (4.7-6.1) M/uL Hgb 12.3 L (14.0-18.0) g/dL Hct 37.0 L (42-52) % MCV 86.4 (80-100) fL MCH 28.7 (25-34) pg MCHC 33.2 (32-36) g/dL RDW Std Deviation 50.4 H (36.4-46.3) fL RDW Coeff of Yoseph 15.7 H (11.5-14.5) % Plt Count 209 (130-400) K/uL MPV 10.1 (7.4-10.4) fL Immature Gran % (Auto) 0.2 % Neut % (Auto) 71.0 % Lymph % (Auto) 16.5 % Baker % (Auto) 12.1 % Eos % (Auto) 0.1 % Baso % (Auto) 0.1 % Neut # (Auto) 11.50 H (1.4-6.5) K/uL Lymph # (Auto) 2.67 (1.2-3.4) K/uL Baker # (Auto) 1.96 H (0.11-0.59) K/uL Eos # (Auto) 0.01 (0-0.5) K/uL Baso # (Auto) 0.01 (0-0.2) K/uL Immature Gran # (Auto) 0.03 H (0.00-0.02) K/uL PT (9.0-12.0) Seconds INR (0.9-1.1) Sodium 136 (136-145) mmol/L Potassium 3.9 (3.5-5.1) mmol/L Chloride 101 (98-107) mmol/L Carbon Dioxide 30 (21-32) mmol/L Anion Gap 5.0 (3-11) BUN 52 H (7-18) mg/dl Creatinine 1.36 (0.6-1.4) mg/dl Est Cr Clr Drug Dosing 82.6 ml/min Est GFR ( Amer) 64.6 ml/min Est GFR (Non-Af Amer) 55.8 ml/min BUN/Creatinine Ratio 38.4 H (10-20) Glucose 140 H (70-99) mg/dl POC Glucose 102 H (70-99) mg/dl Calcium 9.2 (8.5-10.1) mg/dl Total Bilirubin 0.5 (0.2-1) mg/dl Direct Bilirubin (0-0.2) mg/dl AST 86 H (15-37) U/L ALT 139 H (12-78) U/L Alkaline Phosphatase 63 (45-117) U/L Total Protein 7.5 (6.4-8.2) gm/dl Albumin 2.9 L (3.4-5.0) gm/dl Globulin 4.6 H (2.5-4.0) gm/dl Albumin/Globulin Ratio 0.6 L (0.9-2) Lipase (73-393) U/L Nasal Screen MRSA (PCR) (Negative) Anaplasma Smear A. phagocytophilum DNA Babesia Smear Babesia microti DNA PCR Lyme Disease IgG Ab (Negative) Lyme Disease IgM Ab (Negative) Hepatitis A IgM Ab Hep Bs Antigen (Neg) Hep B Core IgM Ab Hepatitis C Antibody (Neg) 06/19/21 06/18/21 06/18/21 Range/Units 06:08 Unknown 21:32 WBC (4.8-10.8) K/uL RBC (4.7-6.1) M/uL Hgb (14.0-18.0) g/dL Hct (42-52) % MCV (80-100) fL MCH (25-34) pg MCHC (32-36) g/dL RDW Std Deviation (36.4-46.3) fL RDW Coeff of Yoseph (11.5-14.5) % Plt Count (130-400) K/uL MPV (7.4-10.4) fL Immature Gran % (Auto) % Neut % (Auto) % Lymph % (Auto) % Baker % (Auto) % Eos % (Auto) % Baso % (Auto) % Neut # (Auto) (1.4-6.5) K/uL Lymph # (Auto) (1.2-3.4) K/uL Baker # (Auto) (0.11-0.59) K/uL Eos # (Auto) (0-0.5) K/uL Baso # (Auto) (0-0.2) K/uL Immature Gran # (Auto) (0.00-0.02) K/uL PT 17.6 H (9.0-12.0) Seconds INR 1.8 H (0.9-1.1) Sodium (136-145) mmol/L Potassium (3.5-5.1) mmol/L Chloride (98-107) mmol/L Carbon Dioxide (21-32) mmol/L Anion Gap (3-11) BUN (7-18) mg/dl Creatinine (0.6-1.4) mg/dl Est Cr Clr Drug Dosing ml/min Est GFR ( Amer) ml/min Est GFR (Non-Af Amer) ml/min BUN/Creatinine Ratio (10-20) Glucose (70-99) mg/dl POC Glucose 142 H (70-99) mg/dl Calcium (8.5-10.1) mg/dl Total Bilirubin (0.2-1) mg/dl Direct Bilirubin (0-0.2) mg/dl AST (15-37) U/L ALT (12-78) U/L Alkaline Phosphatase (45-117) U/L Total Protein (6.4-8.2) gm/dl Albumin (3.4-5.0) gm/dl Globulin (2.5-4.0) gm/dl Albumin/Globulin Ratio (0.9-2) Lipase (73-393) U/L Nasal Screen MRSA (PCR) Negative (Negative) Anaplasma Smear A. phagocytophilum DNA Babesia Smear Babesia microti DNA PCR Lyme Disease IgG Ab (Negative) Lyme Disease IgM Ab (Negative) Hepatitis A IgM Ab Hep Bs Antigen (Neg) Hep B Core IgM Ab Hepatitis C Antibody (Neg) 06/18/21 06/18/21 06/18/21 Range/Units 19:05 19:05 19:05 WBC (4.8-10.8) K/uL RBC (4.7-6.1) M/uL Hgb (14.0-18.0) g/dL Hct (42-52) % MCV (80-100) fL MCH (25-34) pg MCHC (32-36) g/dL RDW Std Deviation (36.4-46.3) fL RDW Coeff of Yoseph (11.5-14.5) % Plt Count (130-400) K/uL MPV (7.4-10.4) fL Immature Gran % (Auto) % Neut % (Auto) % Lymph % (Auto) % Baker % (Auto) % Eos % (Auto) % Baso % (Auto) % Neut # (Auto) (1.4-6.5) K/uL Lymph # (Auto) (1.2-3.4) K/uL Baker # (Auto) (0.11-0.59) K/uL Eos # (Auto) (0-0.5) K/uL Baso # (Auto) (0-0.2) K/uL Immature Gran # (Auto) (0.00-0.02) K/uL PT (9.0-12.0) Seconds INR (0.9-1.1) Sodium (136-145) mmol/L Potassium (3.5-5.1) mmol/L Chloride (98-107) mmol/L Carbon Dioxide (21-32) mmol/L Anion Gap (3-11) BUN (7-18) mg/dl Creatinine (0.6-1.4) mg/dl Est Cr Clr Drug Dosing ml/min Est GFR ( Amer) ml/min Est GFR (Non-Af Amer) ml/min BUN/Creatinine Ratio (10-20) Glucose (70-99) mg/dl POC Glucose (70-99) mg/dl Calcium (8.5-10.1) mg/dl Total Bilirubin (0.2-1) mg/dl Direct Bilirubin (0-0.2) mg/dl AST (15-37) U/L ALT (12-78) U/L Alkaline Phosphatase (45-117) U/L Total Protein (6.4-8.2) gm/dl Albumin (3.4-5.0) gm/dl Globulin (2.5-4.0) gm/dl Albumin/Globulin Ratio (0.9-2) Lipase (73-393) U/L Nasal Screen MRSA (PCR) (Negative) Anaplasma Smear A. phagocytophilum DNA Pending Babesia Smear Babesia microti DNA PCR Pending Lyme Disease IgG Ab Negative (Negative) Lyme Disease IgM Ab Negative (Negative) Hepatitis A IgM Ab Hep Bs Antigen (Neg) Hep B Core IgM Ab Hepatitis C Antibody (Neg) 06/18/21 06/18/21 06/18/21 Range/Units 19:05 19:05 19:05 WBC (4.8-10.8) K/uL RBC (4.7-6.1) M/uL Hgb (14.0-18.0) g/dL Hct (42-52) % MCV (80-100) fL MCH (25-34) pg MCHC (32-36) g/dL RDW Std Deviation (36.4-46.3) fL RDW Coeff of Yoseph (11.5-14.5) % Plt Count (130-400) K/uL MPV (7.4-10.4) fL Immature Gran % (Auto) % Neut % (Auto) % Lymph % (Auto) % Baker % (Auto) % Eos % (Auto) % Baso % (Auto) % Neut # (Auto) (1.4-6.5) K/uL Lymph # (Auto) (1.2-3.4) K/uL Baker # (Auto) (0.11-0.59) K/uL Eos # (Auto) (0-0.5) K/uL Baso # (Auto) (0-0.2) K/uL Immature Gran # (Auto) (0.00-0.02) K/uL PT (9.0-12.0) Seconds INR (0.9-1.1) Sodium (136-145) mmol/L Potassium (3.5-5.1) mmol/L Chloride (98-107) mmol/L Carbon Dioxide (21-32) mmol/L Anion Gap (3-11) BUN (7-18) mg/dl Creatinine (0.6-1.4) mg/dl Est Cr Clr Drug Dosing ml/min Est GFR ( Amer) ml/min Est GFR (Non-Af Amer) ml/min BUN/Creatinine Ratio (10-20) Glucose (70-99) mg/dl POC Glucose (70-99) mg/dl Calcium (8.5-10.1) mg/dl Total Bilirubin 0.5 (0.2-1) mg/dl Direct Bilirubin 0.1 (0-0.2) mg/dl AST 88 H (15-37) U/L ALT 146 H (12-78) U/L Alkaline Phosphatase 67 (45-117) U/L Total Protein 7.9 (6.4-8.2) gm/dl Albumin 3.1 L (3.4-5.0) gm/dl Globulin (2.5-4.0) gm/dl Albumin/Globulin Ratio (0.9-2) Lipase 560 H (73-393) U/L Nasal Screen MRSA (PCR) (Negative) Anaplasma Smear A. phagocytophilum DNA Babesia Smear Babesia microti DNA PCR Lyme Disease IgG Ab (Negative) Lyme Disease IgM Ab (Negative) Hepatitis A IgM Ab Pending Hep Bs Antigen Neg (Neg) Hep B Core IgM Ab Pending Hepatitis C Antibody Neg (Neg) 06/18/21 06/18/21 06/18/21 Range/Units 19:05 16:44 11:54 WBC (4.8-10.8) K/uL RBC (4.7-6.1) M/uL Hgb (14.0-18.0) g/dL Hct (42-52) % MCV (80-100) fL MCH (25-34) pg MCHC (32-36) g/dL RDW Std Deviation (36.4-46.3) fL RDW Coeff of Yoseph (11.5-14.5) % Plt Count (130-400) K/uL MPV (7.4-10.4) fL Immature Gran % (Auto) % Neut % (Auto) % Lymph % (Auto) % Baker % (Auto) % Eos % (Auto) % Baso % (Auto) % Neut # (Auto) (1.4-6.5) K/uL Lymph # (Auto) (1.2-3.4) K/uL Baker # (Auto) (0.11-0.59) K/uL Eos # (Auto) (0-0.5) K/uL Baso # (Auto) (0-0.2) K/uL Immature Gran # (Auto) (0.00-0.02) K/uL PT (9.0-12.0) Seconds INR (0.9-1.1) Sodium (136-145) mmol/L Potassium (3.5-5.1) mmol/L Chloride (98-107) mmol/L Carbon Dioxide (21-32) mmol/L Anion Gap (3-11) BUN (7-18) mg/dl Creatinine (0.6-1.4) mg/dl Est Cr Clr Drug Dosing ml/min Est GFR ( Amer) ml/min Est GFR (Non-Af Amer) ml/min BUN/Creatinine Ratio (10-20) Glucose (70-99) mg/dl POC Glucose 173 H 138 H (70-99) mg/dl Calcium (8.5-10.1) mg/dl Total Bilirubin (0.2-1) mg/dl Direct Bilirubin (0-0.2) mg/dl AST (15-37) U/L ALT (12-78) U/L Alkaline Phosphatase (45-117) U/L Total Protein (6.4-8.2) gm/dl Albumin (3.4-5.0) gm/dl Globulin (2.5-4.0) gm/dl Albumin/Globulin Ratio (0.9-2) Lipase (73-393) U/L Nasal Screen MRSA (PCR) (Negative) Anaplasma Smear See Comment A. phagocytophilum DNA Babesia Smear See Comment Babesia microti DNA PCR Lyme Disease IgG Ab (Negative) Lyme Disease IgM Ab (Negative) Hepatitis A IgM Ab Hep Bs Antigen (Neg) Hep B Core IgM Ab Hepatitis C Antibody (Neg)
[2021-06-19] MEDS: METHENAMINE HIPPURATE 1 GM TAB PO SCH ×2 (11:07→20:40)
[2021-06-19] MEDS: MAGNESIUM OXIDE 400 MG TAB PO SCH ×2 (11:07→20:40)
[2021-06-19] MEDS: ZINC SULFATE 220 MG CAPSULE PO SCH (11:07)
--- NOTE | 2021-06-19 13:48 | Pharmacy Report ---
Pharmacy Vanc AUC Short Note - Date of Service June 19, 2021 - Assessment & Plan Assessment 60 year old M receiving vancomycin/metronidazole for empiric treatment possible SSTI/wound infection or biliary source, patient also on cefepime for pseudomonas UTI, catheter was exchanged on 06/16, now with recurrent fever. Plan Vancomycin * AUC/SHARI is the preferred PK/PD target for vancomycin * AUC guided dosing is effective and associated with decreased risk of n ephrotoxicity compared to traditional trough targets * Patient received loading dose [place] 2750 mg and will start 1000 mg q12H * 1000 mg q12H is predicted to achieve target AUC/SHARI of 400-600 mg/L.hr * Trough ordered for 06/21 @0830 Pharmacy will continue to follow and will adjust dose/frequency as necessary. Thank you.
[2021-06-19] MEDS ORDERED: INSULIN HUMAN NPH SC SCH (16:30)
[2021-06-19] MEDS: WARFARIN SOD 5 MG TAB PO SCH (17:10)
--- NOTE | 2021-06-19 18:01 | Hospitalist Progress Note ---
Date of Service June 19, 2021 Assessment & Plan (1) Syncope: Plan: Syncope at home likely secondary to malaise with possible hypotension/hypoxia. Occurred when patient was transferred to shower chair and this has happened before in previous years. Recent illness with covid, however, also something acute appears to be ongoing as patient has new, increasing leukocytosis and intermittent fevers. Cannot check orthostatics given paraplegia. FEeling better and afebrile after expanding abx to include vanc, cefepime and flagyl last night. Workup for new acute illness/fever below. (2) Fever: Plan: Consideration given to infectious and noninfectious causes. Based on work-up noted increase in transaminase levels, lipase and white blood cells. Fever has resolved after expanding antibiotics. No active VTE on chest CT or dopplers of legs. Now more concerned about possible biliary tract infection with gallbladder sludge on RUQ US. Consulted GI who recommends MRCP today and EUS if needed. Additionally, out of concern for skin infection/wound involvement, vancomycin was empirically added. Repeat blood culture pending. Cont current therapy and trend WBC. (3) Elevated transaminase level: Plan: New and rising, planned workup and GI consult as above. (4) History of COVID-19: Plan: Recent COVID-19 infection status post treatment. Patient is on room air. At this point he is not qualifying for steroid therapy which may make an underlying infection worse. These were stopped on 06/18. Chest CT was performed revealing no evidence of pneumonia at this time. (5) Sacral decubitus ulcer, stage IV: Plan: Stage IV pressure injury present for years, currently takes cefdinir twice daily at home. This is on hold while he is taking cefepime. Wound care following. At this time does not appear to have a superficial infection but may be contributing to leukocytosis (6) Nocturnal hypoxia: Plan: Chronic oxygen dependency-2 L at bedtime (7) Morbid obesity: Plan: complicates many issues. He is mostly bedbound/wheelchair bound, requiring a li ft at home to transfer. He has a chronic deep wound on his buttock that has been monitored for several years. He is currently on a specialty air mattress. 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 Patient also has a history of Marce filter which was advised to be removed but was never actually taken out. Will reassess legs again now via ultrasound to determine if VTE may be a cause of fever. Patient is subtherapeutic on Coumadin with an INR of 1.8 today. Continue to trend INR while on coumadin. 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 Per ID this admission, this and yeast are likely a colonization. Urology also saw patient and exchange suprapubic catheter on June 16. (10) CKD (chronic kidney disease), stage III: Plan: Chronic, at baseline creatinine level. Continue to monitor. (11) DM type 2 (diabetes mellitus, type 2): Plan: Currently at inpatient goal. Appreciate inpatient glycemic pharmacist assistance with management. Continue current insulin regimen. Monitor BSG closely. (12) DVT prophylaxis: Plan: Coumadin Full code Disposition-continue hospitalization. [facility] Date Admission Date: June 14, 2021 Subjective 60 yo M admitted for syncope at home. At that time stated he didn't feel well. Febrile yesterday with worsening leukocytosis. Uncertain etiology, however, workup with no evidence of DVT or PE, no pneumonia, elevated LFTs and lipase and GB sludge on RUQ US. Also with chronic stage IV sacral ulcer. Expanded antibiotics to include vancomycin and flagyl. Patient feels slightly better today No abdominal or chest pain, denies SOB. No fevers or chills overnight. GI consulted and rec MRCP with possible EUS in am. Lyme neg, Anaplasma PCR pend with no evidence of inclusion body on smear-low likelihood for rickettsial illness. Hepatitis panel pending Review of Systems Review of Systems: At least ten systems were reviewed and negative except as indicated in HPI above. Physical Exam Physical Exam: CONSTITUTIONAL: morbid obesity, vitals as above, generally well-appearing, NAD EYES: normal conjunctivae, no scleral icterus ENT: external ear and nose normal, MMM NECK: trachea midline RESPIRATORY: clear to auscultation bilaterally, no crackles, rales or wheezes, normal respiratory effort CARDIOVASCULAR: regular rate and rhythm, S1 and 2 heard without murmurs, gallops or rubs, no JVD, no peripheral edema CHEST: inspection of chest was normal GASTROINTESTINAL: soft, nontender, ND, suprapubic catheter in place, no erythema surrounding insertion site, no drainage, no guarding. He has a colostomy in place with normal stool and gas in bag. MUSCULOSKELETAL: paraplegic, generalized weakness, head is normocephalic and atraumatic SKIN: warm and dry, was unable to evaluate his wounds this evening. NEUROLOGIC: CN 2-12 grossly intact, no sensory deficit, normal cognition, normal speech, no tremor PSYCHIATRIC: alert cooperative and oriented to person, place and time. Euthymic mood, makes good eye contact, language grossly intact, recent and remote memory grossly intact. Results & Data Results & Data ([facility]) Vital Signs (Past 12 Hours) Vital Signs Temp Pulse Pulse Resp BP BP Pulse Ox 06/19/21 15:02 75 06/19/21 14:47 37.2 C 74 18 117/75 98 06/19/21 11:06 36.6 C 64 18 100/62 95 06/19/21 07:43 37.5 C 79 18 104/67 99 06/19/21 07:13 78 Laboratory Results Short CBC 06/19/21 Range/Units 06:08 WBC 16.18 H (4.8-10.8) K/uL Hgb 12.3 L (14.0-18.0) g/dL Hct 37.0 L (42-52) % Plt Count 209 (130-400) K/uL BMP 06/19/21 06:08 Sodium 136 Potassium 3.9 Chloride 101 Carbon Dioxide 30 BUN 52 H Creatinine 1.36 Glucose 140 H Calcium 9.2 Liver Function 06/18/21 06/19/21 Range/Units 19:05 06:08 Total Bilirubin 0.5 0.5 (0.2-1) mg/dl Direct Bilirubin 0.1 (0-0.2) mg/dl AST 88 H 86 H (15-37) U/L ALT 146 H 139 H (12-78) U/L Alkaline Phosphatase 67 63 (45-117) U/L Albumin 3.1 L 2.9 L (3.4-5.0) gm/dl Medications Administered Current Inpatient Medications Acetaminophen (Acetaminophen 500 Mg Tab) 1,000 mg PO Q6H PRN PRN Reason: Pain Stop: 07/15/21 03:13 Last Admin: 06/18/21 15:08 Dose: 1,000 mg Documented by: Albuterol (Albuterol 0.083% Nebu Soln 3 Ml Vial) 2.5 mg NEB Q6R PRN PRN Reason: Shortness Of Breath Or Wheezing Stop: 07/15/21 02:18 Allopurinol (Allopurinol 100 Mg Tab) 100 mg PO BID [facility] Stop: 07/15/21 02:18 Last Admin: 06/19/21 09:13 Dose: 100 mg Documented by: Atorvastatin Calcium (Atorvastatin 40 Mg Tab) 40 mg PO HS JO Stop: 07/15/21 02:18 Last Admin: 06/18/21 21:54 Dose: 40 mg Documented by: Baclofen (Baclofen 10 Mg Tab) 10 mg PO QID [facility] Stop: 07/15/21 02:18 Last Admin: 06/19/21 17:11 Dose: 10 mg Documented by: Cyclobenzaprine HCl (Cyclobenzaprine Hcl 5 Mg Tab) 15 mg PO HS [facility] Stop: 07/15/21 03:14 Last Admin: 06/18/21 21:54 Dose: 15 mg Documented by: Dextrose (Dextrose 50% 50 Ml Syringe) 25 - 50 ml IV UD PRN; Protocol PRN Reason: Hypoglycemia Protocol Stop: 07/15/21 02:18 Escitalopram Oxalate (Escitalopram Oxalate 20 Mg Tab) 20 mg PO QAM [facility] Stop: 07/15/21 08:59 Last Admin: 06/19/21 08:18 Dose: 20 mg Documented by: Famotidine (Famotidine 20 Mg Tab) 20 mg PO BID [facility] Stop: 07/15/21 02:18 Last Admin: 06/19/21 08:18 Dose: 20 mg Documented by: Ferrous Gluconate (Ferrous Gluconate 324 Mg Tab) 324 mg PO QAM JO Stop: 07/15/21 08:59 Last Admin: 06/19/21 08:18 Dose: 324 mg Documented by: Furosemide (Furosemide 40 Mg Tab) 40 mg PO BID17 [facility] Stop: 07/17/21 16:59 Last Admin: 06/19/21 17:12 Dose: 40 mg Documented by: Gabapentin (Gabapentin 800 Mg Tab) 800 mg PO BID [facility] Stop: 07/15/21 02:18 Last Admin: 06/19/21 08:18 Dose: 800 mg Documented by: Glucagon (Glucagon For Inj 1 Mg Vial) 1 mg SQ UD PRN; Protocol PRN Reason: Hypoglycemia Protocol Stop: 07/15/21 02:18 Glucose (Glucose 10 Tabs/Tube) 4 - 8 tabs PO UD PRN; Protocol PRN Reason: Hypoglycemia Protocol Stop: 07/15/21 02:18 Glucose (Glucose 40% Gel 15 Gm Tube) 15 - 30 gm PO UD PRN; Protocol PRN Reason: Hypoglycemia Protocol Stop: 07/15/21 02:18 Heparin Sodium (Porcine) (Heparin Sod 5,000 Unit/0.5 Ml Vial) 7,500 units SQ Q8 JO Stop: 07/15/21 03:14 Last Admin: 06/19/21 13:07 Dose: 7,500 units Documented by: Hyoscyamine (Hyoscyamine Sulfate 0.125 Mg Tab) 0.125 mg PO QPM JO Stop: 07/15/21 02:18 Last Admin: 06/18/21 21:55 Dose: 0.125 mg Documented by: Cefepime HCl 2,000 mg/ Syringe 20 mls @ 5 mls/min IV Q8 [facility]; Protocol Stop: 06/26/21 13:59 Last Admin: 06/19/21 13:07 Dose: 5 mls/min Documented by: Vancomycin HCl 1,000 mg/ (Sodium Chloride) 270 mls @ 200 mls/hr IV Q12H [facility]; Protocol Stop: 06/20/21 08:59 Last Infusion: 06/19/21 09:48 Dose: Infused Documented by: Metronidazole (Flagyl) 500 mg in 100 mls @ 100 mls/hr IV Q8H [facility] Stop: 06/20/21 21:59 Last Infusion: 06/19/21 14:21 Dose: Infused Documented by: Insulin Aspart (Insulin Aspart 100 Units/Ml 3 Ml Pen) 0 units SC ACHS [facility] Stop: 07/15/21 07:29 Last Admin: 06/19/21 17:40 Dose: 11 units Documented by: Insulin Human NPH (Insulin Human Nph) 40 units SC QDD [facility]; Protocol Stop: 07/18/21 16:29 Last Admin: 06/19/21 17:39 Dose: 40 units Documented by: Lactobacillus Acidoph/Casei/Rhamnos (Advanced Probiotic 1250 Mg Capsule) 2 cap PO DAILY JO Stop: 07/15/21 08:59 Last Admin: 06/19/21 08:17 Dose: 2 cap Documented by: Magnesium Oxide (Magnesium Oxide 400 Mg Tab) 400 mg PO BID JO Stop: 07/15/21 03:14 Last Admin: 06/19/21 11:07 Dose: 400 mg Documented by: Melatonin (Melatonin 3 Mg Tab) 6 mg PO HS PRN PRN Reason: Sleep Stop: 07/15/21 19:49 Last Admin: 06/18/21 22:02 Dose: 6 mg Documented by: Methenamine Hippurate (Methenamine Hippurate 1 Gm Tab) 1 gm PO BID JO Stop: 07/15/21 02:18 Last Admin: 06/19/21 11:07 Dose: 1 gm Documented by: Miscellaneous (Bethanechol~Order Awaiting Action) 1 ea N/A QS [facility] Stop: 07/15/21 07:59 Last Admin: 06/19/21 15:07 Dose: Not Given Documented by: Miscellaneous (Carbohydrates For Hypoglycemia ) 15 - 30 gm PO UD PRN PRN Reason: Hypoglycemia Protocol Stop: 07/15/21 02:18 Miscellaneous Information (Pharmacy Glycemic Mgmt Consult) 1 ea N/A UD PRN PRN Reason: Consult Stop: 07/15/21 02:18 Miscellaneous Information (Cefepime Consult Active) 1 ea N/A UD PRN PRN Reason: Consult Stop: 07/15/21 03:00 Miscellaneous Information (Vancomycin Consult Active) 1 ea N/A UD PRN PRN Reason: Consult Stop: 07/18/21 20:11 Miscellaneous Medication (Medical Marijuana) 1 dose INH UD PRN PRN Reason: own use Stop: 07/15/21 02:44 Multivitamins (Multivitamin Tab) 1 tab PO QAM JO Stop: 07/15/21 08:59 Last Admin: 06/19/21 08:18 Dose: 1 tab Documented by: Pantoprazole Sodium (Pantoprazole 40 Mg Tab) 40 mg PO QAM JO Stop: 07/15/21 08:59 Last Admin: 06/19/21 08:18 Dose: 40 mg Documented by: Polyethylene Glycol (Polyethylene (Miralax) 17 Gm Pack) 17 gm PO DAILY PRN PRN Reason: Constipation Stop: 07/15/21 02:18 Last Admin: 06/18/21 22:02 Dose: 17 gm Documented by: Potassium Chloride (Potassium Chloride 10 Meq Tabcr) 10 meq PO BIDM JO Stop: 07/15/21 03:14 Last Admin: 06/15/21 11:09 Dose: Not Given Documented by: Ropinirole HCl (Ropinirole Hcl 1 Mg Tablet) 1 mg PO QID [facility] Stop: 07/15/21 02:18 Last Admin: 06/19/21 17:10 Dose: 1 mg Documented by: Spironolactone (Spironolactone 25 Mg Tab) 25 mg PO QAM [facility] Stop: 07/15/21 08:59 Last Admin: 06/19/21 08:18 Dose: 25 mg Documented by: Tizanidine HCl (Tizanidine Hcl 4 Mg Tablet) 4 mg PO BID [facility] Stop: 07/15/21 02:18 Last Admin: 06/19/21 08:18 Dose: 4 mg Documented by: Warfarin Sodium (Warfarin Sod 5 Mg Tab) 5 mg PO [id number] [facility] Stop: 07/15/21 15:59 Last Admin: 06/19/21 17:10 Dose: 5 mg Documented by: Warfarin Sodium (Warfarin Sod 7.5 Mg Tab) 7.5 mg PO [id number]@1600 [facility] Stop: 07/16/21 15:59 Last Admin: 06/18/21 17:07 Dose: 7.5 mg Documented by: Zinc Sulfate (Zinc Sulfate 220 Mg Capsule) 220 mg PO QDL [facility] Stop: 07/15/21 11:29 Last Admin: 06/19/21 11:07 Dose: 220 mg Documented by:
[2021-06-19] MEDS: POLYETHYLENE (MIRALAX) 17 GM PACK PO PRN (20:36)
[2021-06-19] MEDS: HYOSCYAMINE SULFATE 0.125 MG TAB PO SCH (20:40)
[2021-06-19] MEDS: ATORVASTATIN 40 MG TAB PO SCH (20:41)
[2021-06-19] MEDS: CYCLOBENZAPRINE HCL 5 MG TAB PO SCH (20:41)
[2021-06-19] MEDS: MELATONIN 3 MG TAB PO PRN (22:05)
[2021-06-19] MEDS ORDERED: Nursing to Pharmacy Communication SCH (23:30)
[2021-06-20] MEDS ORDERED: Nursing to Pharmacy Communication SCH (03:30)
[2021-06-20 05:19] LABS: Hepatitis A Antibody IgM NON-REACTIVE (NON-REACTIVE); Hepatitis B Core Antibody IgM NON-REACTIVE (NON-REACTIVE)
[2021-06-20] MEDS: CEFEPIME 2,000 MG in SYRINGE 0 ML IV SCH ×3 (05:29→22:10)
[2021-06-20] MEDS: metroNIDAZOLE 500 MG/100 ML BAG IV SCH (05:35)
[2021-06-20] MEDS: HEPARIN SOD 5,000 UNIT/0.5 ML VIAL SQ SCH ×3 (05:37→22:13)
[2021-06-20] MEDS: INSULIN ASPART 100 UNITS/ML 3 ML PEN SC SCH ×4 (06:10→22:11)
[2021-06-20] MEDS ORDERED: INSULIN HUMAN NPH SC ONE (08:00)
[2021-06-20 08:23] LABS: Hematocrit (blood only) 37.5 % (42-52); Hemoglobin 12.3 g/dL (14.0-18.0); Mean Corpuscular Hgb Conc 32.8 g/dL (32-36); Mean Corpuscular Volume 88.4 fL (80-100); Mean Platelet Volume 9.9 fL (7.4-10.4); Platelet Count 189 K/uL (130-400); RDW Coefficient of Variation 15.8 % (11.5-14.5); RDW Standard Deviation 50.6 fL (36.4-46.3); Red Blood Count 4.24 M/uL (4.7-6.1)
--- NOTE | 2021-06-20 08:29 | Magnetic Resonance Report ---
MRCP CLINICAL HISTORY: Intermittent fever. Elevated hepatic transaminases. COMPARISON STUDY: Abdominal ultrasound dated 06/18/2021. Abdominal CT dated 06/14/2021. TECHNIQUE: Abdominal MRCP is performed utilizing various T2-weighted sequences in the axial and coron al planes. IV contrast was not administered for this examination. 3-D reformats are created and asses sed. FINDINGS: No gallstones are identified. There is no intra or extrahepatic biliary ductal dilatation. The common bile duct measures up to 3 mm diameter. There are no intraluminal filling defects to suggest choledo cholithiasis. The pancreatic duct is normal in caliber. The liver is enlarged, measuring 20.8 cm in length. Steatosis was shown on recent prior examinations. The unenhanced pancreas, spleen, and adrenal glands are grossly normal. The kidneys demonstrate susan ical atrophy and are without hydronephrosis. An infrarenal IVC filter is in place. The abdominal aort a is normal in caliber. There is no bowel obstruction. No abdominal ascites is identified. The lung b ases are clear as imaged. Postoperative change is noted involving the left lower ribs. IMPRESSION: 1. Normal MRCP. 2. Hepatomegaly and hepatic steatosis. Dictated: 06/20/2021 8:20 AM Transcribed: 06/20/2021 8:26 AM Tiffany [id number] [email or web address] Electronically signed by: José Wise M.D. 06/20/2021 8:28 AM
[2021-06-20] MEDS ORDERED: VANCOMYCIN TROUGH ONE (08:30)
[2021-06-20 08:37] LABS: INR 1.8 (0.9-1.1); Prothrombin Time 17.1 Seconds (9.0-12.0)
--- NOTE | 2021-06-20 08:37 | Communication Note ---
Date of Service: June 20, 2021 Pt was seen and evaluated, chart reviewed. Offers no concerns this AM. Is NPO awaiting results of MRCP. No abd pain. No nausea, vomiting. No new symptoms. Would keep NPO MRCP and LFTs return. If stable and MRCP negative, please resume diet. Can trend LFTs and plan for OP evaluaiton if persistently elevated. If MRCP positive, will proceed. Thank you for allowing us to participate in the care of this patient. Please call with any acute changes, questions or concerns. Please see addendum below with additional recommendation from my supervising physician. MRCP negative. Monitor LFTs. Consider ID consult. Recall GI if needed.
[2021-06-20 08:51] LABS: Albumin Level 2.9 gm/dl (3.4-5.0); BUN Creatinine Ratio 38.8 (10-20); Creatinine Clr Calc Pharmacy 83.2 ml/min; Est GFR (African American) 65.2 ml/min; Est GFR (Non-African American) 56.3 ml/min; Potassium 3.4 mmol/L (3.5-5.1)
[2021-06-20 08:54] LABS: Albumin Globulin Ratio 0.7 (0.9-2); Bilirubin,Total 0.6 mg/dl (0.2-1); Globulin 4.3 gm/dl (2.5-4.0); Total Protein 7.2 gm/dl (6.4-8.2)
[2021-06-20] MEDS ORDERED: VANCOMYCIN CONSULT ACTIVE PRN (09:26)
[2021-06-20] MEDS: allopurinoL 100 MG TAB PO SCH ×2 (09:48→22:14)
[2021-06-20] MEDS: FUROSEMIDE 40 MG TAB PO SCH (09:48)
[2021-06-20] MEDS: METHENAMINE HIPPURATE 1 GM TAB PO SCH ×2 (09:48→22:17)
[2021-06-20] MEDS: FERROUS GLUCONATE 324 MG TAB PO SCH (09:48)
[2021-06-20] MEDS: tiZANidine HCL 4 MG TABLET PO SCH ×2 (09:48→22:16)
[2021-06-20] MEDS: SPIRONOLACTONE 25 MG TAB PO SCH (09:48)
[2021-06-20] MEDS: BACLOFEN 10 MG TAB PO SCH ×4 (09:48→22:19)
[2021-06-20] MEDS: PANTOprazole 40 MG TAB PO SCH (09:48)
[2021-06-20] MEDS: GABAPENTIN 800 MG TAB PO SCH ×2 (09:48→22:18)
[2021-06-20] MEDS: rOPINIRole HCL 1 MG TABLET PO SCH ×4 (09:48→22:15)
[2021-06-20] MEDS: MULTIVITAMIN TAB PO SCH (09:48)
[2021-06-20] MEDS: ADVANCED PROBIOTIC 1250 MG CAPSULE PO SCH (09:48)
[2021-06-20] MEDS: ESCITALOPRAM OXALATE 20 MG TAB PO SCH (09:49)
[2021-06-20] MEDS: FAMOTIDINE 20 MG TAB PO SCH ×2 (09:49→22:15)
[2021-06-20] MEDS: MAGNESIUM OXIDE 400 MG TAB PO SCH ×2 (09:50→22:16)
[2021-06-20] MEDS ORDERED: VANCOMYCIN HCL 1,000 MG in SODIUM CHLORIDE 0.9% 250 ML IV ONE (10:00)
--- NOTE | 2021-06-20 10:48 | Surgery Consultation ---
Date of Consultation June 20, 2021 Assessment & Plan (1) Sacral decubitus ulcer, stage IV: Chronic wound without any recent change felt unlikely to be source of leukocytosis. Continue local wound care, no plans for debridement. Patient was seen along with Dr Pena. Supervising Physician Co-Signing Physician Notes Patient S&E, History and imaging reviewed, agree with above. 60 y/o paraplegic male with chronic osteo of 3 y/o decubitus ulcer. On suppressive abx at home, admitted with syncope and having leukocytosis and fevers with unknown source, surgery asked to evaluate wound. No changes in wound per patient, managed at [place] wound care. Prior debridement in [place]. afvss, obese. left buttock wound clean with serosanguineous output, tunnels to bone, no erythema or e/o infection. CT reviewed with no abscess, chronic tract to bone and unchanged. Chronic osteo, unlikely source of fevers or leukocytosis. Regarding IVC filter, unlikely source but defer to vascular if necessary. cont abx, surgery will sign off. History of Present Illness Attending Physician: Rylee Hay, History of Present Illness 60 y/o paraplegic male admitted 6 days ago for syncope. Has no complaints this morning. Had COVID pneumonia recently. during admission had increasing WBCs and fever. Fever improved after escalation of abx. Has had consult by ID. Has been seen by urology and suprapubic catheter was exchanged a few days ago. Was seen by GI for elevated LFTs, MRCP was normal. Has chronic wound left buttocks that he follows with wound care in [place]. Had wound debridement several years ago at [facility] and takes cefdinir for suppression of chronic osteomyelitis. No recent changes in wound. Is also being followed by wound care. Allergies Allergy/AdvReac Type Severity Reaction Status Date / Time codeine Allergy Severe THROAT Verified 06/14/21 11:17 SWELLS latex Allergy Intermediate welts Verified 06/14/21 11:17 piperacillin Allergy Intermediate RASH Verified 06/14/21 11:17 Sulfa (Sulfonamide Allergy Intermediate HIVES Verified 06/14/21 11:17 Antibiotics) tazobactam Allergy Intermediate RASH Verified 06/14/21 11:17 aztreonam Allergy Unknown unknown Verified 06/14/21 11:17 metoclopramide [From Reglan] AdvReac Mild lethargy Verified 06/14/21 11:17 Home Medications Medication Instructions Recorded Confirmed Type allopurinol 100 mg tablet 100 mg PO BID 05/07/18 06/14/21 History ferrous gluconate 324 mg (38 mg 324 mg PO QAM 05/07/18 06/14/21 History iron) tablet furosemide 40 mg tablet 40 mg PO BID 05/07/18 06/14/21 History gabapentin 800 mg tablet 800 mg PO BID 05/07/18 06/14/21 History magnesium oxide 400 mg (241.3 mg 400 mg PO BID 05/07/18 06/14/21 History magnesium) tablet multivitamin 1 tab PO QAM 05/07/18 06/14/21 History pantoprazole 40 mg tablet,delayed 40 mg PO QAM 05/07/18 06/14/21 History release ropinirole 1 mg tablet 1 mg PO QID 05/07/18 06/14/21 History escitalopram oxalate 20 mg tablet 20 mg PO QAM tab 08/21/19 06/14/21 History insulin human U-100 NPH-regulr 56 unit SUBCUT BID 08/21/19 06/14/21 History 70-30 mix 100 unit/mL subcutaneous susp (Novolin 70/30 U-100 Insulin) warfarin 5 mg tablet 5 mg PO 3XWK tab 08/21/19 06/14/21 History atorvastatin 40 mg tablet 40 mg PO HS 08/24/19 06/14/21 History baclofen 10 mg tablet 10 mg PO QID 09/22/19 06/14/21 History cyclobenzaprine 10 mg tablet 15 mg PO HS 03/01/20 06/14/21 History hyoscyamine sulfate 0.125 mg tablet 0.125 mg PO QPM 03/01/20 06/14/21 History potassium chloride 10 mEq 10 meq PO BIDM 03/01/20 06/14/21 History tablet,extended release spironolactone 25 mg tablet 25 mg PO QAM 03/01/20 06/14/21 History (Aldactone) tizanidine 4 mg tablet 4 mg PO BID 03/01/20 06/14/21 History Medical Marijuana See Rx Instructions .ROUTE .COMPLEX 03/26/20 06/14/21 History methenamine hippurate 1 gram tablet 1 g PO BID 30 Days #60 tab 04/02/20 06/14/21 Rx ascorbic acid (vitamin C) 500 mg 250 mg PO TID 12/03/20 06/14/21 History tablet (Vitamin C) famotidine 20 mg tablet (Acid 20 mg PO BID 12/03/20 06/14/21 History F[employer] Nibs Inspector (famotidine)) zinc sulfate 50 mg zinc (220 mg) 50 mg PO QDL 12/03/20 06/14/21 History capsule Lactobacillus acidoph-L.bulgaricus 1 tab PO BID 01/03/21 06/14/21 History 1 million cell tablet (Floranex) acetaminophen 500 mg capsule 1,000 mg PO Q6H PRN 01/03/21 06/14/21 History bethanechol chloride 5 mg tablet 5 mg PO TID 01/03/21 06/14/21 History insulin regular human 100 unit/mL 1 sliding scale dose SUBCUT 01/03/21 06/14/21 History injection solution (Novolin R USEASDIRECTD Regular U-100 Insulin) mecobalamin-levomefolate 1 tab PO BID 01/03/21 06/14/21 History calcium-pyridoxal phos 3 mg-35 mg-2 mg tablet ([id number]) menthol 0.44 %-zinc oxide 20.6 % 1 applic TOPICAL QID PRN 01/03/21 06/14/21 History topical ointment (Calmoseptine) methenamin 81.6 mg-hyoscyam 0.12 1 tab PO QPM 01/03/21 06/14/21 History mg-methblue 10.8 [id number] tablet nystatin 100,000 unit/gram topical 1 applic TOPICAL BID PRN 01/03/21 06/14/21 History powder nystatin-triamcinolone 100,000 1 applic TOPICAL BID 01/03/21 06/14/21 History unit/g-0.1 % topical cream triamcinolone acetonide 0.1 % 1 applic TOPICAL BID PRN 01/03/21 06/14/21 History topical cream irbesartan 75 mg tablet 75 mg PO DAILY 06/02/21 06/14/21 History warfarin 7.5 mg tablet 7.5 mg PO 4XWK 06/02/21 06/14/21 History metformin 1,000 mg tablet 1,000 mg PO BIDM 06/14/21 06/14/21 History Patient History Medical History Asymptomatic bacteriuria Clostridium difficile infection (Unknown) CVA (cerebral vascular accident) DM type 2 (diabetes mellitus, type 2) Dyslipidemia Dysphagia Fever History of blood clots History of DVT (deep vein thrombosis) Hypertension Hypotension Ileus Kidney disease Leukocytosis Major depressive disorder, recurrent Obesity Occluded PICC line Positive urine culture Quadriplegia BRAIN INJURY 11 YRS AGO Seizure SIRS (systemic inflammatory response syndrome) Sleep apnea (Unknown) OXYGEN 2L/MIN NC HS Syncope 57 year old with know quadriplegia and new onset syncope with change in position UTI (urinary tract infection) RECENT [facility] ADMISION-D/C 12/06/20 Surgical History History of colonoscopy 2010 History of open reduction and internal fixation (ORIF) procedure LEFT FEMUR Insertion of inferior vena caval filter (Unknown) Lithotripsy (Unknown) "laser lithotripsy left ureteral stone 03/17/11 " S/P knee surgery S/P tonsillectomy Suprapubic cystostomy (Unknown) IN PLACE Family History Mother No pertinent family history Family history of diabetes mellitus Father Family hx of colon cancer Social History Smoking Status: Never smoker Second Hand Exposure: No; Do You Dip or Chew Tobacco: No; Tobacco Cessation Education Requested by Patient: No Hx Alcohol Use: No Hx Substance Use: Yes Last Used Substance: Days (ago) Substance Use Type Other:: medical card at home with pt . Preferred Language: Kenyan Communication Ability: Effective Visual Impairment: No Limitations Websphere Portal Architect Required: No Beliefs That Will Affect Care: None marital status: Current Living Situation: Spouse Current Living Situation Comment: lives at home with and 2 dogs. No kids at home. current occupational status: disabled Other Information That Helps Us Care for You: No Feels Safe at Home: Yes Safety Concerns: Feels Safe At This Time Physical Activity Frequency Comment: QUADRAPLEGIA C4-5-ABLE TO MOVE ARMS, HANDS Assistive Devices: Oxygen - at Night Review of Systems Constitutional: + fever; no chills and no anorexia Integumentary: as per Subjective / HPI Physical Exam Constitutional: + obese and comfortable; no acute distress Respiratory: normal respiratory effort; no respiratory distress Skin: + fistulous tract (left gluteal, no erythema, no drainage or induration, appears same to photo) Results & Data ([facility]) Vital Signs (Past 12 Hours) Vital Signs Temp Pulse Pulse Resp BP Pulse Ox 06/20/21 08:32 37 C 85 18 108/63 92 06/20/21 04:18 37.4 C 80 20 105/58 L 95 06/19/21 23:50 36.9 C 77 20 95/59 L 92 06/19/21 23:04 79 PG Care Time/CCT Total # of Minutes Spent Total Time Spent with Patient: Total time spent is greater than 50% in coordination of care (as documented) at patient's floor/unit and/or counseling patient: Coding Level of Care Code 77348 Inpt Consult Level 3 Diagnoses Sacral decubitus ulcer, stage IV L89.154
--- NOTE | 2021-06-20 11:02 | Pharmacy Report ---
Pharmacy Abx Dose Short Note - Date of Service June 20, 2021 - Assessment & Plan Assessment 60 year old M receiving vancomycin for treatment of sacral wound/ possible osteomyelitis Day # 3 of antimicrobial therapy. Plan Vancomycin * Trough level of 20.1 mcg/mL is therapeutic but concerned for accumulation due to body habitus * Change to 1000 mg IV every 18 hours * Goal trough level for osteomyelitis : 15 to 20 mcg/mL * Trough ordered for: 06/22/21 Pharmacy will continue to follow and will adjust dose/frequency as necessary. Thank you.
[2021-06-20] MEDS: ZINC SULFATE 220 MG CAPSULE PO SCH (12:16)
--- NOTE | 2021-06-20 13:18 | Pharmacy Report ---
Pharmacy Glycemic Short Note 2 - Date of Service June 20, 2021 - Glycemic Short BSG Results (Last 24 hours): 06/19/21 06/19/21 06/19/21 14:46 17:08 20:57 Glucose POC Glucose 113 H 100 H 158 H 06/20/21 06/20/21 06/20/21 06:05 07:34 08:17 Glucose 70 POC Glucose 87 67 L* 06/20/21 06/20/21 08:38 12:15 Glucose POC Glucose 106 H 119 H OUTPATIENT ANTIDIABETIC REGIMEN: * Novolin 70/30 premixed insulin 56 units SQ BIDM * Metformin 1gm PO BIDM ASSESSMENT: 06/20/21 * Patient's BSGs yesterday were [phone] mg/dL and fasting today is 87 mg/dL. * Patient received 121 units of insulin yesterday (100 units of basal and 21 units of bolus). * Steriods were cut yesterday and insulin requirements have decreased by over 50%. * Target daily basal dose of 60 units. 15 units given this morning since patient NPO. * Continue loosened Novolog. 06/18/21 * Patient's BSGs yesterday were [phone] mg/dL and fasting today is 108 mg/dL. * Patient received 329 units of insulin yesterday (170 units of basal and 159 units of bolus). * Increase morning NPH by 10% to 110 units as dinnertime BSG trends upwards. Reduce evening NPH by 10% as fasting trended downwards. Still TDD of 170 units/day * Continue Novolog. 06/17/21 * Patient's BSGs yesterday were [phone] mg/dL and fasting today is 120 mg/dL. * Patient received 276 units of insulin yesterday (160 units of basal and 116 units of bolus). * Increase morning NPH by 10% to 90 units. Continue NPH 80 units at dinnertime. * Tighten CR slightly to provide more coverage. 06/16/21 * Patient's BSGs yesterday were [phone] mg/dL and fasting today is 132 mg/dL. * Patient received 284 units of insulin yesterday (150 units of basal and 134 units of bolus). * Continue NPH with slightly lower dose of 60 units if BSG < 100 mg/dL to prevent too aggressive dosing. Agree that patient's basal needs around 150-160 units with dexamethasone. * Continue Novolog as BSGs steady yesterday. Background * 60yo T2DM male well known to pharmacy from previous admissions/glycemic consults. Most recently 06/03-06/13 admission * Pt re-started on dexamethasone 6mg IV daily - will resume SQ basal bolus insu freya regimen that worked well with steroids and titrate based on BSG trends. PLAN FOR INPATIENT GLYCEMIC CONTROL: * Hold outpatient oral diabetes medications * Basal insulin * NPH 30 units SQ in PM - future dosing TBD * Bolus insulin * NovoLog per scale ACHS or Q6hrs while NPO * Goal Range: Low 110 mg/dL - High 140 mg/dL * Correction Factor: 12 mg/dL/unit * Nutritional / Prandial insulin per carb ratio of 1 unit per 5 grams CHO consumed PLAN FOR DISCHARGE: * Patient's HBA1C currently is 8.4% which is above goal of <8% for his comorbidities. * Recommend working with outpatient provider to optimize insulin regimen by checking BSG at least twice per day at varying times per day then adjusting insulin to goal blood sugars. * Support Patient Self-Management * Healthy Lifestyle (diet, exercise, and smoking cessation) * Disease self-management (SMBG) * Prevention of complications (BP, Lipid goals, Immunizations) * Consider outpatient Diabetes Self-Management Education & Support * Most patients on multiple-dose insulin (MDI) should SMBG * Prior to meals and snacks * At bedtime * Prior to exercise * When they suspect low blood glucose * After treating low blood glucose until they are normoglycemic * Prior to critical tasks such as driving * Occasionally postprandially
[2021-06-20] MEDS ORDERED: WARFARIN SOD 5 MG TAB PO ONE (13:50)
[2021-06-20] MEDS ORDERED: GADOBUTROL 65ML VIAL IV ONE (14:45)
[2021-06-20] MEDS: VANCOMYCIN HCL 1,000 MG in SODIUM CHLORIDE 0.9% 250 ML IV SCH (15:21)
--- NOTE | 2021-06-20 15:26 | Magnetic Resonance Report ---
MR pelvis wo/w con CLINICAL HISTORY: Stage IV sacral ulcer, worsening leukocytosis COMPARISON STUDY: CT of the abdomen and pelvis June 14, 2021. TECHNIQUE: Utilizing a 1.5 Shannan magnet and dedicated coil, multiplanar, multiecho imaging of the pel vis, sacrum, coccyx and hips was performed pre and postcontrast administration. Intravenous injection of Gadavist was uneventful. FINDINGS: Note is again made of a chronic left gluteal decubitus ulcer with associated chronic erosio n of the left ischial tuberosity. This is similar to CTs of December 05, 2020 and June 14, 2021. There is no marrow edema or enhancement to suggest acute osteomyelitis. There is no fluid collection is sug gest an abscess. Edema and enhancement within the adjacent soft tissues is noted. There is also mild edema and enhancement within the soft tissues inferior to the sacrum and coccyx. There is no associat ed fluid collection. No suspicious marrow replacement is identified within visualized skeletal struct ures. No fluid collection is identified to suggest an abscess within visualized portions of the pelvi s. There is mild edema and enhancement within the bilateral medial gluteal musculature. IMPRESSION: 1. No change in a chronic left gluteal decubitus ulcer which extends to the underlying bone with asso ciated chronic erosion of the left ischial tuberosity. No evidence for acute osteomyelitis. No fluid collection to suggest abscess. 2. Mild nonspecific edema and enhancement of the bilateral gluteal musculature and the soft tissues i nferior to the sacrum and coccyx. No associated fluid collection to suggest abscess. ACT 112: Negative or not required by law. Electronically signed by: Sami Jacobson M.D. 06/20/2021 3:25 PM
[2021-06-20] MEDS: WARFARIN SOD 7.5 MG TAB PO SCH (15:42)
[2021-06-20] MEDS: ACETAMINOPHEN 500 MG TAB PO PRN (15:43)
[2021-06-20] MEDS: INSULIN HUMAN NPH SC SCH (17:40)
--- NOTE | 2021-06-20 18:42 | Hospitalist Progress Note ---
Date of Service June 20, 2021 Assessment & Plan (1) Syncope: Plan: Syncope at home likely secondary to malaise with possible hypotension/hypoxia. Occurred when patient was transferred to shower chair and this has happened before in previous years. Recent illness with covid, however, also something acute appears to be ongoing as patient has new, increasing leukocytosis and intermittent fevers. Cannot check orthostatics given paraplegia. Feeling better and afebrile after expanding abx to include vanc, cefepime and flagyl last night. Workup for fever below. (2) Fever: Plan: Consideration given to infectious and noninfectious causes. Based on work-up noted increase in transaminase levels, lipase and white blood cells. Fever has resolved after expanding antibiotics. No active VTE on chest CT or dopplers of legs. Increased concern for possible biliary tract infection with gallbladder sludge on RUQ US. MRCP negative so no plans for EUS. Additionally, out of concern for skin infection/wound involvement, vancomycin was empirically added. Repeat blood culture negative. Cont current therapy and trend WBC. Stop flagyl. (3) Elevated transaminase level: Plan: Flat without significant elevation. With normal MRCP, etiology includes but not limited to recent covid infection, insult with fatty liver, drug reaction or presence of transient biliary sludge. Trend in am. (4) History of COVID-19: Plan: Recent COVID-19 infection status post treatment. Patient is on room air. At this point he is not qualifying for steroid therapy which may make an underlying infection worse. These were stopped on 06/18. Chest CT was performed revealing no evidence of pneumonia at this time. (5) Sacral decubitus ulcer, stage IV: Plan: Stage IV pressure injury present for years, currently takes cefdinir twice daily at home. This is on hold while he is taking cefepime. Wound care following. At this time does not appear to have a superficial infection but may be contributing to leukocytosis (6) Nocturnal hypoxia: Plan: Chronic oxygen dependency-2 L at bedtime (7) Morbid obesity: Plan: complicates many issues. He is mostly bedbound/wheelchair bound, requiring a lift at home to transfer. He has a chronic deep wound on his buttock that has been monitored for several years. He is currently on a specialty air mattress. 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 Patient also has a history of [place] filter which was advised to be removed but was never actually taken out. Will reassess legs again now via ultrasound to determine if VTE may be a cause of fever. Patient is subtherapeutic on Coumadin with an INR of 1.8 today. 5mg boost dose given after discussion with pharmacy. Continue to trend INR while on coumadin. 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 Per ID this admission, this and yeast are likely a colonization. Urology also saw patient and exchange suprapubic catheter on June 16. (10) CKD (chronic kidney disease), stage III: Plan: Chronic, at baseline creatinine level. Continue to monitor. (11) DM type 2 (diabetes mellitus, type 2): Plan: Currently at inpatient goal. Appreciate inpatient glycemic pharmacist assist ance with management. Continue current insulin regimen. Monitor BSG closely. (12) DVT prophylaxis: Plan: Coumadin Full code Disposition-continue hospitalization. Rylee Hay DO [facility] Hospitalist Admission and Anticipated Discharge Date Admission Date: June 14, 2021 Subjective 60 yo M admitted for syncope at home. Persistent fever and WBC elevation. Also with chronic stage IV sacral ulcer. Expanded antibiotics to include vancomycin and flagyl but still wtih intermittent fever. No evidence of gout. Reports feeling at his baseline. No abdominal or chest pain, denies SOB. No fevers or chills overnight. MRCP negative, no plans for further GI workup. Review of Systems Review of Systems: At least ten systems were reviewed and negative except as indicated in HPI above. Physical Exam Physical Exam: CONSTITUTIONAL: morbid obesity, vitals as above, generally well-appearing, NAD EYES: normal conjunctivae, no scleral icterus ENT: external ear and nose normal, MMM NECK: trachea midline RESPIRATORY: clear to auscultation bilaterally, no crackles, rales or wheezes, normal respiratory effort CARDIOVASCULAR: regular rate and rhythm, S1 and 2 heard without murmurs, gallops or rubs, no JVD, no peripheral edema CHEST: inspection of chest was normal GASTROINTESTINAL: soft, nontender, ND, suprapubic catheter in place, no erythema surrounding insertion site, no drainage, no guarding. He has a colostomy in place with normal stool and gas in bag. MUSCULOSKELETAL: paraplegic, generalized weakness, head is normocephalic and atraumatic, no evidence of joint inflammation in the toes. SKIN: warm and dry, was unable to evaluate wounds 2/2 morbid obesity and paraplegia. NEUROLOGIC: CN 2-12 grossly intact, no sensory deficit, normal cognition, normal speech, no tremor PSYCHIATRIC: alert cooperative and oriented to person, place and time. Euthymic mood, makes good eye contact, language grossly intact, recent and remote memory grossly intact. Results & Data Results & Data ([facility]) Vital Signs (Past 12 Hours) Vital Signs Temp Pulse Pulse Resp BP BP Pulse Ox 06/20/21 16:54 37.4 C 06/20/21 16:08 38.8 C H 97 H 19 108/65 92 06/20/21 08:32 37 C 85 18 108/63 92 06/20/21 08:00 79 Laboratory Results Short CBC 06/20/21 Range/Units 07:34 WBC 17.90 H (4.8-10.8) K/uL Hgb 12.3 L (14.0-18.0) g/dL Hct 37.5 L (42-52) % Plt Count 189 (130-400) K/uL BMP 06/20/21 07:34 Sodium 136 Potassium 3.4 L Chloride 101 Carbon Dioxide 26 BUN 52 H Creatinine 1.35 Glucose 70 Calcium 9.0 Liver Function 06/20/21 Range/Units 07:34 Total Bilirubin 0.6 (0.2-1) mg/dl AST 66 H (15-37) U/L ALT 119 H (12-78) U/L Alkaline Phosphatase 60 (45-117) U/L Albumin 2.9 L (3.4-5.0) gm/dl Diagnostic Findings Cholangiopancreatography MRI 06/19/21 09:49 MRCP CLINICAL HISTORY: Intermittent fever. Elevated hepatic transaminases. COMPARISON STUDY: Abdominal ultrasound dated 06/18/2021. Abdominal CT dated 06/14/2021. TECHNIQUE: Abdominal MRCP is performed utilizing various T2-weighted sequences in the axial and coronal planes. IV contrast was not administered for this examination. 3-D reformats are created and assessed. FINDINGS: No gallstones are identified. There is no intra or extrahepatic biliary ductal dilatation. The common bile duct measures up to 3 mm diameter. There are no intraluminal filling defects to suggest choledocholithiasis. The pancreatic duct is normal in caliber. The liver is enlarged, measuring 20.8 cm in length. Steatosis was shown on recent prior examinations. The unenhanced pancreas, spleen, and adrenal glands are grossly normal. The kidneys demonstrate cortical atrophy and are without hydronephrosis. An infrarenal IVC filter is in place. The abdominal aorta is normal in caliber. There is no bowel obstruction. No abdominal ascites is identified. The lung bases are clear as imaged. Postoperative change is noted involving the left lower ribs. IMPRESSION: 1. Normal MRCP. 2. Hepatomegaly and hepatic steatosis. Dictated: 06/20/2021 8:20 AM Transcribed: 06/20/2021 8:26 AM Tiffany [id number] Electronically signed by: José Wise M.D. 06/20/2021 8:28 AM Pelvis MRI 06/20/21 11:32 MR pelvis wo/w con CLINICAL HISTORY: Stage IV sacral ulcer, worsening leukocytosis COMPARISON STUDY: CT of the abdomen and pelvis June 14, 2021. TECHNIQUE: Utilizing a 1.5 Shannan magnet and dedicated coil, multiplanar, multiecho imaging of the pelvis, sacrum, coccyx and hips was performed pre and postcontrast administration. Intravenous injection of Gadavist was uneventful. FINDINGS: Note is again made of a chronic left gluteal decubitus ulcer with associated chronic erosion of the left ischial tuberosity. This is similar to CTs of December 05, 2020 and June 14, 2021. There is no marrow edema or enhancement to suggest acute osteomyelitis. There is no fluid collection is suggest an abscess. Edema and enhancement within the adjacent soft tissues is noted. There is also mild edema and enhancement within the soft tissues inferior to the sacrum and coccyx. There is no associated fluid collection. No suspicious marrow replacement is identified within visualized skeletal structures. No fluid collection is identified to suggest an abscess within visualized portions of the pelvis. There is mild edema and enhancement within the bilateral medial gluteal musculature. IMPRESSION: 1. No change in a chronic left gluteal decubitus ulcer which extends to the underlying bone with associated chronic erosion of the left ischial tuberosity. No evidence for acute osteomyelitis. No fluid collection to suggest abscess. 2. Mild nonspecific edema and enhancement of the bilateral gluteal musculature and the soft tissues inferior to the sacrum and coccyx. No associated fluid collection to suggest abscess. ACT 112: Negative or not required by law. Electronically signed by: Sami Jacobson M.D. 06/20/2021 3:25 PM Medications Administered Current Inpatient Medications Acetaminophen (Acetaminophen 500 Mg Tab) 1,000 mg PO Q6H PRN PRN Reason: Pain Stop: 07/15/21 03:13 Last Admin: 06/20/21 15:43 Dose: 1,000 mg Documented by: Albuterol (Albuterol 0.083% Nebu Soln 3 Ml Vial) 2.5 mg NEB Q6R PRN PRN Reason: Shortness Of Breath Or Wheezing Stop: 07/15/21 02:18 Allopurinol (Allopurinol 100 Mg Tab) 100 mg PO BID JO Stop: 07/15/21 02:18 Last Admin: 06/20/21 09:48 Dose: 100 mg Documented by: Atorvastatin Calcium (Atorvastatin 40 Mg Tab) 40 mg PO HS JO Stop: 07/15/21 02:18 Last Admin: 06/19/21 20:41 Dose: 40 mg Documented by: Baclofen (Baclofen 10 Mg Tab) 10 mg PO QID JO Stop: 07/15/21 02:18 Last Admin: 06/20/21 17:40 Dose: 10 mg Documented by: Cyclobenzaprine HCl (Cyclobenzaprine Hcl 5 Mg Tab) 15 mg PO HS JO Stop: 07/15/21 03:14 Last Admin: 06/19/21 20:41 Dose: 15 mg Documented by: Dextrose (Dextrose 50% 50 Ml Syringe) 25 - 50 ml IV UD PRN; Protocol PRN Reason: Hypoglycemia Protocol Stop: 07/15/21 02:18 Last Admin: 06/20/21 08:21 Dose: 25 ml Documented by: Escitalopram Oxalate (Escitalopram Oxalate 20 Mg Tab) 20 mg PO QAM JO Stop: 07/15/21 08:59 Last Admin: 06/20/21 09:49 Dose: 20 mg Documented by: Famotidine (Famotidine 20 Mg Tab) 20 mg PO BID JO Stop: 07/15/21 02:18 Last Admin: 06/20/21 09:49 Dose: 20 mg Documented by: Ferrous Gluconate (Ferrous Gluconate 324 Mg Tab) 324 mg PO QAM JO Stop: 07/15/21 08:59 Last Admin: 06/20/21 09:48 Dose: 324 mg Documented by: Furosemide (Furosemide 40 Mg Tab) 40 mg PO BID17 JO Stop: 07/17/21 16:59 Last Admin: 06/20/21 09:48 Dose: 40 mg Documented by: Gabapentin (Gabapentin 800 Mg Tab) 800 mg PO BID JO Stop: 07/15/21 02:18 Last Admin: 06/20/21 09:48 Dose: 800 mg Documented by: Glucagon (Glucagon For Inj 1 Mg Vial) 1 mg SQ UD PRN; Protocol PRN Reason: Hypoglycemia Protocol Stop: 07/15/21 02:18 Glucose (Glucose 10 Tabs/Tube) 4 - 8 tabs PO UD PRN; Protocol PRN Reason: Hypoglycemia Protocol Stop: 07/15/21 02:18 Glucose (Glucose 40% Gel 15 Gm Tube) 15 - 30 gm PO UD PRN; Protocol PRN Reason: Hypoglycemia Protocol Stop: 07/15/21 02:18 Heparin Sodium (Porcine) (Heparin Sod 5,000 Unit/0.5 Ml Vial) 7,500 units SQ Q8 JO Stop: 07/15/21 03:14 Last Admin: 06/20/21 15:22 Dose: 7,500 units Documented by: Hyoscyamine (Hyoscyamine Sulfate 0.125 Mg Tab) 0.125 mg PO QPM [facility] Stop: 07/15/21 02:18 Last Admin: 06/19/21 20:40 Dose: 0.125 mg Documented by: Cefepime HCl 2,000 mg/ Syringe 20 mls @ 5 mls/min IV Q8 JO; Protocol Stop: 06/26/21 13:59 Last Admin: 06/20/21 15:21 Dose: 5 mls/min Documented by: Vancomycin HCl 1,000 mg/ (Sodium Chloride) 270 mls @ 200 mls/hr IV Q18H [facility]; Protocol Stop: 08/01/21 14:59 Last Admin: 06/20/21 15:21 Dose: 200 mls/hr Documented by: Insulin Aspart (Insulin Aspart 100 Units/Ml 3 Ml Pen) 0 units SC ACHS [facility] Stop: 07/20/21 16:29 Last Admin: 06/20/21 17:41 Dose: 21 units Documented by: Insulin Human NPH (Insulin Human Nph) 30 units SC QDD [facility]; Protocol Stop: 07/20/21 16:29 Last Admin: 06/20/21 17:40 Dose: 30 units Documented by: Lactobacillus Acidoph/Casei/Rhamnos (Advanced Probiotic 1250 Mg Capsule) 2 cap PO DAILY [facility] Stop: 07/15/21 08:59 Last Admin: 06/20/21 09:48 Dose: 2 cap Documented by: Magnesium Oxide (Magnesium Oxide 400 Mg Tab) 400 mg PO BID [facility] Stop: 07/15/21 03:14 Last Admin: 06/20/21 09:50 Dose: 400 mg Documented by: Melatonin (Melatonin 3 Mg Tab) 6 mg PO HS PRN PRN Reason: Sleep Stop: 07/15/21 19:49 Last Admin: 06/19/21 22:05 Dose: 6 mg Documented by: Methenamine Hippurate (Methenamine Hippurate 1 Gm Tab) 1 gm PO BID [facility] Stop: 07/15/21 02:18 Last Admin: 06/20/21 09:48 Dose: 1 gm Documented by: Miscellaneous (Bethanechol~Order Awaiting Action) 1 ea N/A QS [facility] Stop: 07/15/21 07:59 Last Admin: 06/20/21 15:24 Dose: Not Given Documented by: Miscellaneous (Carbohydrates For Hypoglycemia ) 15 - 30 gm PO UD PRN PRN Reason: Hypoglycemia Protocol Stop: 07/15/21 02:18 Miscellaneous Information (Pharmacy Glycemic Mgmt Consult) 1 ea N/A UD PRN PRN Reason: Consult Stop: 07/15/21 02:18 Miscellaneous Information (Cefepime Consult Active) 1 ea N/A UD PRN PRN Reason: Consult Stop: 07/15/21 03:00 Miscellaneous Information (Vancomycin Consult Active) 1 ea N/A UD PRN PRN Reason: Consult Stop: 07/18/21 20:11 Miscellaneous Medication (Medical Marijuana) 1 dose INH UD PRN PRN Reason: own use Stop: 07/15/21 02:44 Multivitamins (Multivitamin Tab) 1 tab PO QAM [facility] Stop: 07/15/21 08:59 Last Admin: 06/20/21 09:48 Dose: 1 tab Documented by: Pantoprazole Sodium (Pantoprazole 40 Mg Tab) 40 mg PO QAM [facility] Stop: 07/15/21 08:59 Last Admin: 06/20/21 09:48 Dose: 40 mg Documented by: Polyethylene Glycol (Polyethylene (Miralax) 17 Gm Pack) 17 gm PO DAILY PRN PRN Reason: Constipation Stop: 07/15/21 02:18 Last Admin: 06/19/21 20:36 Dose: 17 gm Documented by: Potassium Chloride (Potassium Chloride 10 Meq Tabcr) 10 meq PO BIDM [facility] Stop: 07/15/21 03:14 Last Admin: 06/15/21 11:09 Dose: Not Given Documented by: Ropinirole HCl (Ropinirole Hcl 1 Mg Tablet) 1 mg PO QID [facility] Stop: 07/15/21 02:18 Last Admin: 06/20/21 17:40 Dose: 1 mg Documented by: Spironolactone (Spironolactone 25 Mg Tab) 25 mg PO QAM [facility] Stop: 07/15/21 08:59 Last Admin: 06/20/21 09:48 Dose: 25 mg Documented by: Tizanidine HCl (Tizanidine Hcl 4 Mg Tablet) 4 mg PO BID [facility] Stop: 07/15/21 02:18 Last Admin: 06/20/21 09:48 Dose: 4 mg Documented by: Warfarin Sodium (Warfarin Sod 5 Mg Tab) 5 mg PO [id number] [facility] Stop: 07/15/21 15:59 Last Admin: 06/19/21 17:10 Dose: 5 mg Documented by: Warfarin Sodium (Warfarin Sod 7.5 Mg Tab) 7.5 mg PO [id number] [facility] Stop: 07/16/21 15:59 Last Admin: 06/20/21 15:42 Dose: 7.5 mg Documented by: Zinc Sulfate (Zinc Sulfate 220 Mg Capsule) 220 mg PO QDL [facility] Stop: 07/15/21 11:29 Last Admin: 06/20/21 12:16 Dose: 220 mg Documented by:
[2021-06-20] MEDS: HYOSCYAMINE SULFATE 0.125 MG TAB PO SCH (22:14)
[2021-06-20] MEDS: ATORVASTATIN 40 MG TAB PO SCH (22:17)
[2021-06-20] MEDS: CYCLOBENZAPRINE HCL 5 MG TAB PO SCH (22:18)
[2021-06-20] MEDS: MELATONIN 3 MG TAB PO PRN (22:38)
[2021-06-21] MEDS: CEFEPIME 2,000 MG in SYRINGE 0 ML IV SCH (05:19)
[2021-06-21] MEDS: HEPARIN SOD 5,000 UNIT/0.5 ML VIAL SQ SCH ×3 (05:19→22:00)
[2021-06-21 07:30] LABS: Base Excess ABG 1.9 mEq/L (-9-1.8); HCO3 ABG 27 mmol/L (19-24); Oxygen Saturation ABG 91.1 % (90-95); PCO2 ABG 45 mmHg (35-46); PO2 ABG 62 mmHg (80-95)
[2021-06-21 07:33] LABS: Allen Test Pos (Pos)
[2021-06-21 07:51] LABS: Hematocrit (blood only) 35.9 % (42-52); Hemoglobin 11.8 g/dL (14.0-18.0); Mean Corpuscular Hemoglobin 29.1 pg (25-34); Mean Corpuscular Hgb Conc 32.9 g/dL (32-36); Mean Corpuscular Volume 88.4 fL (80-100); Mean Platelet Volume 9.7 fL (7.4-10.4); Platelet Count 176 K/uL (130-400); RDW Standard Deviation 51.2 fL (36.4-46.3); Red Blood Count 4.06 M/uL (4.7-6.1); White Blood Count 12.94 K/uL (4.8-10.8)
[2021-06-21 07:56] LABS: Albumin Level 2.7 gm/dl (3.4-5.0); BUN Creatinine Ratio 36.6 (10-20); C Reactive Protein 3.03 mg/dl (0-0.29); Calcium 8.7 mg/dl (8.5-10.1); Est GFR (Non-African American) 57.8 ml/min; Potassium 3.7 mmol/L (3.5-5.1)
[2021-06-21 07:59] LABS: Albumin Globulin Ratio 0.6 (0.9-2); Bilirubin,Total 0.7 mg/dl (0.2-1); Globulin 4.3 gm/dl (2.5-4.0)
[2021-06-21] MEDS: INSULIN HUMAN NPH SC SCH ×2 (08:30→17:50)
[2021-06-21] MEDS ORDERED: VANCOMYCIN TROUGH ONE (08:30)
[2021-06-21] MEDS: INSULIN ASPART 100 UNITS/ML 3 ML PEN SC SCH ×4 (08:32→21:56)
[2021-06-21] MEDS: allopurinoL 100 MG TAB PO SCH ×2 (08:33→21:57)
[2021-06-21] MEDS: FAMOTIDINE 20 MG TAB PO SCH ×2 (08:33→22:04)
[2021-06-21] MEDS: SPIRONOLACTONE 25 MG TAB PO SCH (08:33)
[2021-06-21] MEDS: GABAPENTIN 800 MG TAB PO SCH ×2 (08:33→22:01)
[2021-06-21] MEDS: PANTOprazole 40 MG TAB PO SCH (08:33)
[2021-06-21] MEDS: ADVANCED PROBIOTIC 1250 MG CAPSULE PO SCH (08:34)
[2021-06-21] MEDS: BACLOFEN 10 MG TAB PO SCH ×4 (08:34→21:59)
[2021-06-21] MEDS: METHENAMINE HIPPURATE 1 GM TAB PO SCH ×2 (08:34→21:58)
[2021-06-21] MEDS: rOPINIRole HCL 1 MG TABLET PO SCH ×4 (08:34→21:59)
[2021-06-21] MEDS: tiZANidine HCL 4 MG TABLET PO SCH ×2 (08:34→22:04)
[2021-06-21] MEDS: FERROUS GLUCONATE 324 MG TAB PO SCH (08:34)
[2021-06-21] MEDS: ESCITALOPRAM OXALATE 20 MG TAB PO SCH (08:34)
[2021-06-21] MEDS: MAGNESIUM OXIDE 400 MG TAB PO SCH ×2 (08:34→21:58)
[2021-06-21] MEDS: MULTIVITAMIN TAB PO SCH (08:34)
--- NOTE | 2021-06-21 09:04 | Pharmacy Report ---
Pharmacy Glycemic Short Note 2 - Date of Service June 21, 2021 - Glycemic Short BSG Results (Last 24 hours): 06/20/21 06/20/21 06/20/21 12:15 16:43 20:22 Glucose POC Glucose 119 H 266 H 256 H 06/21/21 06/21/21 07:28 07:32 Glucose 159 H POC Glucose 177 H OUTPATIENT ANTIDIABETIC REGIMEN: * Novolin 70/30 premixed insulin 56 units SQ BIDM * Metformin 1gm PO BIDM ASSESSMENT: 06/21/21 * Patient's BSGs yesterday were [phone] mg/dL. Patient received 85 units of insulin (45 units of basal and 40 units of bolus). * Fasting today was 177 mg/dL. * Since steroids were d/c'ed and diet reordered, will start with NPH 40 units with breakfast and 30 units with dinner. Fasting elevated today because patient received less basal insulin yesterday (Patient was NPO). * Continue current Novolog orders. 06/20/21 * Patient's BSGs yesterday were [phone] mg/dL and fasting today is 87 mg/dL. * Patient received 121 units of insulin yesterday (100 units of basal and 21 units of bolus). * Steriods were cut yesterday and insulin requirements have decreased by over 50%. * Target daily basal dose of 60 units. 15 units given this morning since patient NPO. * Continue loosened Novolog. 06/18/21 * Patient's BSGs yesterday were [phone] mg/dL and fasting today is 108 mg/dL. * Patient received 329 units of insulin yesterday (170 units of basal and 159 units of bolus). * Increase morning NPH by 10% to 110 units as dinnertime BSG trends upwards. Reduce evening NPH by 10% as fasting trended downwards. Still TDD of 170 units/day * Continue Novolog. 06/17/21 * Patient's BSGs yesterday were [phone] mg/dL and fasting today is 120 mg/dL. * Patient received 276 units of insulin yesterday (160 units of basal and 116 units of bolus). * Increase morning NPH by 10% to 90 units. Continue NPH 80 units at dinnertime. * Tighten CR slightly to provide more coverage. 06/16/21 * Patient's BSGs yesterday were [phone] mg/dL and fasting today is 132 mg/dL. * Patient received 284 units of insulin yesterday (150 units of basal and 134 units of bolus). * Continue NPH with slightly lower dose of 60 units if BSG < 100 mg/dL to prevent too aggressive dosing. Agree that patient's basal needs around 150-160 units with dexamethasone. * Continue Novolog as BSGs steady yesterday. Background * 60yo T2DM male well known to pharmacy from previous admissions/glycemic consults. Most recently 06/03-06/13 admission * Pt re-started on dexamethasone 6mg IV daily - will resume SQ basal bolus insulin regimen that worked well with steroids and titrate based on BSG trend s. PLAN FOR INPATIENT GLYCEMIC CONTROL: * Hold outpatient oral diabetes medications * Basal insulin * NPH 40 units in morning and 30 units in evening * Bolus insulin * NovoLog per scale ACHS or Q6hrs while NPO * Goal Range: Low 110 mg/dL - High 140 mg/dL * Correction Factor: 12 mg/dL/unit * Nutritional / Prandial insulin per carb ratio of 1 unit per 5 grams CHO consumed PLAN FOR DISCHARGE: * Patient's HBA1C currently is 8.4% which is above goal of <8% for his comorbidities. * Recommend working with outpatient provider to optimize insulin regimen by checking BSG at least twice per day at varying times per day then adjusting insulin to goal blood sugars. * Support Patient Self-Management * Healthy Lifestyle (diet, exercise, and smoking cessation) * Disease self-management (SMBG) * Prevention of complications (BP, Lipid goals, Immunizations) * Consider outpatient Diabetes Self-Management Education & Support * Most patients on multiple-dose insulin (MDI) should SMBG * Prior to meals and snacks * At bedtime * Prior to exercise * When they suspect low blood glucose * After treating low blood glucose until they are normoglycemic * Prior to critical tasks such as driving * Occasionally postprandially
[2021-06-21] MEDS: VANCOMYCIN HCL 1,000 MG in SODIUM CHLORIDE 0.9% 250 ML IV SCH (09:30)
[2021-06-21] MEDS: ZINC SULFATE 220 MG CAPSULE PO SCH (12:41)
--- NOTE | 2021-06-21 14:44 | Hospitalist Progress Note ---
Date of Service June 21, 2021 Assessment & Plan (1) Syncope: Plan: Syncope at home likely secondary to malaise with possible hypotension/hypoxia. Occurred when patient was transferred to shower chair and this has happened before in previous years. Recent illness with covid, however, also something acute appears to be ongoing as patient has new. Suspect possible fungal? superinfection to wound based on description given by today and the fact that he had steroids recently minimizing his ability to fight off an infection. Leukocytosis is resolving and is likely related to the decadron that was given, stopped on 06/18. STopping all antibiotics at this point. Will watch fever curve. If fever, then will consider doing fungal and bacterial swabs of his gluteal wound. (2) Fever: Plan: Consideration given to infectious and noninfectious causes. Ruled out VTE, gout, UTI (colonization), pancreatitis (eating), drug fever (temp is intermittent), bacteremia (Bld cultures neg x 2), rickettsial illness, hepatitis, acute biliary tract infection (neg MRCP), pneumonia (CT chest neg). May be superficial wound infection as above. Stop abx as above. (3) Elevated transaminase level: Plan: Decreasing. With normal MRCP, etiology includes but not limited to recent covid infection, insult with fatty liver, drug reaction or presence of transient biliary sludge. (4) History of COVID-19: Plan: Recent COVID-19 infection status post treatment. Patient is on room air. At this point he is not qualifying for steroid therapy which may make an underlying infection worse. These were stopped on 06/18. Chest CT was performed revealing no evidence of pneumonia at this time. (5) Sacral decubitus ulcer, stage IV: Plan: Stage IV pressure injury present for years, currently takes cefdinir twice daily at home. restarting this now since off broad spectrum IV abx. (6) Nocturnal hypoxia: Plan: Chronic oxygen dependency-2 L at bedtime (7) Morbid obesity: Plan: complicates many issues. He is mostly bedbound/wheelchair bound, requiring a lift at home to transfer. He has a chronic deep wound on his buttock that has been monitored for several years. He is currently on a specialty air mattress. 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 Patient also has a history of Banco filter which was advised to be removed but was never actually taken out. Continue to trend INR while on coumadin. 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 Per ID this admission, this and yeast are likely a colonization. Urology also saw patient and exchange suprapubic catheter on June 16. (10) CKD (chronic kidney disease), stage III: Plan: Chronic, at baseline creatinine level. Continue to monitor. (11) DM type 2 (diabetes mellitus, type 2): Plan: Currently at inpatient goal. Appreciate inpatient glycemic pharmacist assistance with management. Continue current insulin regimen. Monitor BSG closely. (12) DVT prophylaxis: Plan: Coumadin Full code Disposition-continue hospitalization. Will likely be home Mon or . was at bedside, discussed assessment and care plan with her today. Rylee [facility] Dis[facility] Date Admission Date: June 14, 2021 Subjective 60 yo M admitted for syncope at home. Fever to 38.8 yesterday evening which didn't persist. This was while on broad spectrum antibiotics. MRI pelvis n egative for acute osteomyelitis. Discussed case with rubbish collection supervisor infectious disease who reviewed the films and the case. Agreed with no active osteo. Reports feeling at his baseline. No abdominal or chest pain, denies SOB. No fevers or chills overnight. No travel reported except for a trip to [facility] many years ago. Screened for malaria, however, this is very low likelihood. at bedside, she reports washing out his wound with vinegar and then switched to an antifungal because there was redness and chapping that looked fungal in nature. This was right before he was placed on steroids for covid pneumonia. Review of Systems Review of Systems: At least ten systems were reviewed and negative except as indicated in HPI above. Physical Exam Physical Exam: CONSTITUTIONAL: morbid obesity, vitals as above, generally well-appearing, NAD EYES: normal conjunctivae, no scleral icterus ENT: external ear and nose normal, MMM NECK: trachea midline RESPIRATORY: clear to auscultation bilaterally, no crackles, rales or wheezes, normal respiratory effort CARDIOVASCULAR: regular rate and rhythm, S1 and 2 heard without murmurs, gallops or rubs, no JVD, no peripheral edema CHEST: inspection of chest was normal GASTROINTESTINAL: soft, nontender, ND, suprapubic catheter in place, no erythema surrounding insertion site, no drainage, no guarding. He has a colostomy in place with normal stool and gas in bag. MUSCULOSKELETAL: paraplegic, generalized weakness, head is normocephalic and atraumatic, no evidence of joint inflammation in the toes. SKIN: warm and dry, was unable to evaluate wounds 2/2 morbid obesity and paraplegia. NEUROLOGIC: CN 2-12 grossly intact, no sensory deficit, normal cognition, normal speech, no tremor PSYCHIATRIC: alert cooperative and oriented to person, place and time. Euthymic mood, makes good eye contact, language grossly intact, recent and remote memory grossly intact. Results & Data Results & Data ([facility]) Vital Signs (Past 12 Hours) Vital Signs Temp Pulse Pulse Resp BP BP Pulse Ox 06/21/21 11:34 37.1 C 87 19 93/57 L 94 06/21/21 08:27 36.8 C 72 18 95/64 L 95 06/21/21 08:00 75 06/21/21 03:03 36.8 C 72 18 91/50 L 95 Laboratory Results Short CBC 06/21/21 Range/Units 07:28 WBC 12.94 H (4.8-10.8) K/uL Hgb 11.8 L (14.0-18.0) g/dL Hct 35.9 L (42-52) % Plt Count 176 (130-400) K/uL BMP 06/21/21 07:28 Sodium 133 L Potassium 3.7 Chloride 101 Carbon Dioxide 26 BUN 48 H Creatinine 1.32 Glucose 159 H Calcium 8.7 Liver Function 06/21/21 Range/Units 07:28 Total Bilirubin 0.7 (0.2-1) mg/dl AST 44 H (15-37) U/L ALT 88 H (12-78) U/L Alkaline Phosphatase 55 (45-117) U/L Albumin 2.7 L (3.4-5.0) gm/dl Medications Administered Current Inpatient Medications Acetaminophen (Acetaminophen 500 Mg Tab) 1,000 mg PO Q6H PRN PRN Reason: Pain Stop: 07/15/21 03:13 Last Admin: 06/20/21 15:43 Dose: 1,000 mg Documented by: Albuterol (Albuterol 0.083% Nebu Soln 3 Ml Vial) 2.5 mg NEB Q6R PRN PRN Reason: Shortness Of Breath Or Wheezing Stop: 07/15/21 02:18 Allopurinol (Allopurinol 100 Mg Tab) 100 mg PO BID JO Stop: 07/15/21 02:18 Last Admin: 06/21/21 08:33 Dose: 100 mg Documented by: Atorvastatin Calcium (Atorvastatin 40 Mg Tab) 40 mg PO HS JO Stop: 07/15/21 02:18 Last Admin: 06/20/21 22:17 Dose: 40 mg Documented by: Baclofen (Baclofen 10 Mg Tab) 10 mg PO QID JO Stop: 07/15/21 02:18 Last Admin: 06/21/21 12:41 Dose: 10 mg Documented by: Cefdinir (Cefdinir 300 Mg Cap) 300 mg PO BID JO Stop: 07/21/21 20:59 Cyclobenzaprine HCl (Cyclobenzaprine Hcl 5 Mg Tab) 15 mg PO HS [facility] Stop: 07/15/21 03:14 Last Admin: 06/20/21 22:18 Dose: 15 mg Documented by: Dextrose (Dextrose 50% 50 Ml Syringe) 25 - 50 ml IV UD PRN; Protocol PRN Reason: Hypoglycemia Protocol Stop: 07/15/21 02:18 Last Admin: 06/20/21 08:21 Dose: 25 ml Documented by: Escitalopram Oxalate (Escitalopram Oxalate 20 Mg Tab) 20 mg PO QAM JO Stop: 07/15/21 08:59 Last Admin: 06/21/21 08:34 Dose: 20 mg Documented by: Famotidine (Famotidine 20 Mg Tab) 20 mg PO BID JO Stop: 07/15/21 02:18 Last Admin: 06/21/21 08:33 Dose: 20 mg Documented by: Ferrous Gluconate (Ferrous Gluconate 324 Mg Tab) 324 mg PO QAM JO Stop: 07/15/21 08:59 Last Admin: 06/21/21 08:34 Dose: 324 mg Documented by: Furosemide (Furosemide 40 Mg Tab) 40 mg PO BID17 JO Stop: 07/17/21 16:59 Last Admin: 06/20/21 09:48 Dose: 40 mg Documented by: Gabapentin (Gabapentin 800 Mg Tab) 800 mg PO BID JO Stop: 07/15/21 02:18 Last Admin: 06/21/21 08:33 Dose: 800 mg Documented by: Glucagon (Glucagon For Inj 1 Mg Vial) 1 mg SQ UD PRN; Protocol PRN Reason: Hypoglycemia Protocol Stop: 07/15/21 02:18 Glucose (Glucose 10 Tabs/Tube) 4 - 8 tabs PO UD PRN; Protocol PRN Reason: Hypoglycemia Protocol Stop: 07/15/21 02:18 Glucose (Glucose 40% Gel 15 Gm Tube) 15 - 30 gm PO UD PRN; Protocol PRN Reason: Hypoglycemia Protocol Stop: 07/15/21 02:18 Heparin Sodium (Porcine) (Heparin Sod 5,000 Unit/0.5 Ml Vial) 7,500 units SQ Q8 JO Stop: 07/15/21 03:14 Last Admin: 06/21/21 05:19 Dose: 7,500 units Documented by: Hyoscyamine (Hyoscyamine Sulfate 0.125 Mg Tab) 0.125 mg PO QPM JO Stop: 07/15/21 02:18 Last Admin: 06/20/21 22:14 Dose: 0.125 mg Documented by: Insulin Aspart (Insulin Aspart 100 Units/Ml 3 Ml Pen) 0 units SC ACHS JO Stop: 07/20/21 16:29 Last Admin: 06/21/21 12:42 Dose: 31 units Documented by: Insulin Human NPH (Insulin Human Nph) 30 units SC QDD [facility]; Protocol Stop: 07/20/21 16:29 Last Admin: 06/20/21 17:40 Dose: 30 units Documented by: Insulin Human NPH (Insulin Human Nph) 40 units SC QDB [facility]; Protocol Stop: 07/21/21 07:29 Last Admin: 06/21/21 08:30 Dose: 40 units Documented by: Lactobacillus Acidoph/Casei/Rhamnos (Advanced Probiotic 1250 Mg Capsule) 2 cap PO DAILY JO Stop: 07/15/21 08:59 Last Admin: 06/21/21 08:34 Dose: 2 cap Documented by: Magnesium Oxide (Magnesium Oxide 400 Mg Tab) 400 mg PO BID JO Stop: 07/15/21 03:14 Last Admin: 06/21/21 08:34 Dose: 400 mg Documented by: Melatonin (Melatonin 3 Mg Tab) 6 mg PO HS PRN PRN Reason: Sleep Stop: 07/15/21 19:49 Last Admin: 06/20/21 22:38 Dose: 6 mg Documented by: Methenamine Hippurate (Methenamine Hippurate 1 Gm Tab) 1 gm PO BID [facility] Stop: 07/15/21 02:18 Last Admin: 06/21/21 08:34 Dose: 1 gm Documented by: Miscellaneous (Bethanechol~Order Awaiting Action) 1 ea N/A QS [facility] Stop: 07/15/21 07:59 Last Admin: 06/21/21 08:33 Dose: Not Given Documented by: Miscellaneous (Carbohydrates For Hypoglycemia ) 15 - 30 gm PO UD PRN PRN Reason: Hypoglycemia Protocol Stop: 07/15/21 02:18 Miscellaneous Information (Pharmacy Glycemic Mgmt Consult) 1 ea N/A UD PRN PRN Reason: Consult Stop: 07/15/21 02:18 Miscellaneous Medication (Medical Marijuana) 1 dose INH UD PRN PRN Reason: own use Stop: 07/15/21 02:44 Multivitamins ([facility]ivitamin Tab) [facility] Stop: 07/15/21 08:59 Last Admin: 06/21/21 08:34 Dose: 1 tab Documented by: Pantoprazole Sodium (Pantoprazole 40 Mg Tab) 40 [facility] [place] Stop: 07/15/21 08:59 Last Admin: 06/21/21 08:33 Dose: 40 mg Documented by: Polyethylene Glycol (Polyethylene (Miralax) 17 Gm Pack) 17 gm PO DAILY PRN PRN Reason: Constipation Stop: 07/15/21 02:18 Last Admin: 06/19/21 20:36 Dose: 17 gm Documented by: Potassium Chloride (Potassium Chloride 10 Meq Tabcr) 10 meq PO BIDM [facility] Stop: 07/15/21 03:14 Last Admin: 06/15/21 11:09 Dose: Not Given Documented by: Ropinirole HCl (Ropinirole Hcl 1 Mg Tablet) 1 mg PO QID [facility] Stop: 07/15/21 02:18 Last Admin: 06/21/21 12:41 Dose: 1 mg Documented by: Spironolactone (Spironolactone 25 Mg Tab) 25 mg PO QAM [facility] Stop: 07/15/21 08:59 Last Admin: 06/21/21 08:33 Dose: 25 mg Documented by: Tizanidine HCl (Tizanidine Hcl 4 Mg Tablet) 4 mg PO BID [facility] Stop: 07/15/21 02:18 Last Admin: 06/21/21 08:34 Dose: 4 mg Documented by: Warfarin Sodium (Warfarin Sod 5 Mg Tab) 5 mg PO [email or web address] [facility] Stop: 07/15/21 15:59 Last Admin: 06/19/21 17:10 Dose: 5 mg Documented by: Warfarin Sodium (Warfarin Sod 7.5 Mg Tab) 7.5 mg PO [email or web address] [facility] Stop: 07/16/21 15:59 Last Admin: 06/20/21 15:42 Dose: 7.5 mg Documented by: Zinc Sulfate (Zinc Sulfate 220 Mg Capsule) 220 mg PO QDL [facility] Stop: 07/15/21 11:29 Last Admin: 06/21/21 12:41 Dose: 220 mg Documented by:
[2021-06-21] MEDS: WARFARIN SOD 5 MG TAB PO SCH (15:30)
[2021-06-21] MEDS: CEFDINIR 300 MG CAP PO SCH (21:57)
[2021-06-21] MEDS: CYCLOBENZAPRINE HCL 5 MG TAB PO SCH (21:58)
[2021-06-21] MEDS: HYOSCYAMINE SULFATE 0.125 MG TAB PO SCH (22:00)
[2021-06-21] MEDS: ATORVASTATIN 40 MG TAB PO SCH (22:02)
[2021-06-21] MEDS: MELATONIN 3 MG TAB PO PRN (23:51)
[2021-06-22] MEDS ORDERED: VANCOMYCIN TROUGH ONE (02:30)
[2021-06-22] MEDS: HEPARIN SOD 5,000 UNIT/0.5 ML VIAL SQ SCH ×3 (06:13→21:19)
[2021-06-22 06:35] LABS: Hematocrit (blood only) 34.5 % (42-52); Hemoglobin 11.3 g/dL (14.0-18.0); Mean Corpuscular Hemoglobin 29.2 pg (25-34); Mean Corpuscular Hgb Conc 32.8 g/dL (32-36); Mean Corpuscular Volume 89.1 fL (80-100); Mean Platelet Volume 10.4 fL (7.4-10.4); Platelet Count 173 K/uL (130-400); RDW Standard Deviation 51.6 fL (36.4-46.3); Red Blood Count 3.87 M/uL (4.7-6.1); White Blood Count 13.76 K/uL (4.8-10.8)
[2021-06-22 07:09] LABS: BUN Creatinine Ratio 30.2 (10-20); C Reactive Protein 4.75 mg/dl (0-0.29); Calcium 8.7 mg/dl (8.5-10.1); Creatinine Clr Calc Pharmacy 88.1 ml/min; Est GFR (African American) 68.9 ml/min; Est GFR (Non-African American) 59.4 ml/min; Potassium 3.8 mmol/L (3.5-5.1)
--- NOTE | 2021-06-22 08:38 | Hospitalist Progress Note ---
Date of Service June 22, 2021 Assessment & Plan (1) Syncope: Plan: Syncope at home likely secondary to malaise with possible hypotension/hypoxia. Occurred when patient was transferred to shower chair and this has happened before in previous years. Recent illness with covid, however, also something acute appears to be ongoing as patient has new. Suspect possible fungal? superinfection to wound based on description given by today and the fact that he had steroids recently minimizing his ability to fight off an infection. Leukocytosis is resolving and is likely related to the decadron that was given, steroids were stopped on 06/18. Antibiotics stopped yesterday morning and he has been afebrile and feeling well. Will watch fever curve. If fever, then will consider doing fungal and bacterial swabs of his gluteal wound. If not, then to home tomorrow. (2) Fever: Plan: Consideration given to infectious and noninfectious causes. Ruled out VTE, gout, UTI (colonization), pancreatitis (eating), drug fever (temp is intermittent), bacteremia (Bld cultures neg x 2), rickettsial illness, hepatitis, acute biliary tract infection (neg MRCP), pneumonia (CT chest neg). May be superficial wound infection as above. No antibiotics. (3) Elevated transaminase level: Plan: Decreasing. With normal MRCP, etiology includes but not limited to recent covid infection, insult with fatty liver, drug reaction or presence of transient biliary sludge. Follow-up as outpatient with PCP to ensure complete resolution to normal. (4) History of COVID-19: Plan: Recent COVID-19 infection status post treatment. Patient is on room air. At this point he is not qualifying for steroid therapy which may make an underlying infection worse. These were stopped on 06/18. Chest CT was performed revealing no evidence of pneumonia at this time. (5) Sacral decubitus ulcer, stage IV: Plan: Stage IV pressure injury present for years, currently takes cefdinir twice daily at home. Restarted this now since off broad spectrum IV abx. (6) Nocturnal hypoxia: Plan: Chronic oxygen dependency-2 L at bedtime (7) Morbid obesity: Plan: complicates many issues. He is mostly bedbound/wheelchair bound, requiring a lift at home to transfer. He has a chronic deep wound on his buttock that has been monitored for several years. He is currently on a specialty air mattress. Weight loss advised. 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 Patient also has a history of Frederica filter which was advised to be removed but was never actually taken out. Continue to trend INR while on coumadin. 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 Per ID this admission, this and yeast are likely a colonization. Urology also saw patient and exchange suprapubic catheter on June 16. (10) CKD (chronic kidney disease), stage III: Plan: Chronic, at baseline creatinine level. Continue to monitor. (11) DM type 2 (diabetes mellitus, type 2): Plan: Currently at inpatient goal. Appreciate inpatient glycemic pharmacist assistance with management. Continue current insulin regimen. Monitor BSG closely. (12) DVT prophylaxis: Plan: Coumadin Full code Disposition-continue hospitalization. Will likely be home Mon or . Rylee Hay DO [facility]ist Admission and Anticipated Discharge Date Admission Date: June 14, 2021 Subjective 60 yo M admitted for syncope at home. Worsening leukocytosis and some intermittent fevers, which have been worked up. Afebrile overnight off antibiotics and reports feeling well and at baseline today. Review of Systems Review of Systems: At least ten systems were reviewed and negative except as indicated in HPI above. Physical Exam Physical Exam: CONSTITUTIONAL: morbid obesity, vitals as above, generally well-appearing, NAD EYES: normal conjunctivae, no scleral icterus ENT: external ear and nose normal, MMM NECK: trachea midline RESPIRATORY: clear to auscultation bilaterally, no crackles, rales or wheezes, normal respiratory effort CARDIOVASCULAR: regular rate and rhythm, S1 and 2 heard without murmurs, gallops or rubs, no JVD, no peripheral edema CHEST: inspection of chest was normal GASTROINTESTINAL: soft, nontender, ND, suprapubic catheter in place, no erythema surrounding insertion site, no drainage, no guarding. He has a colostomy in place with normal stool and gas in bag. MUSCULOSKELETAL: paraplegic, generalized weakness, head is normocephalic and atraumatic, no evidence of joint inflammation in the toes. SKIN: warm and dry, was unable to evaluate wounds 2/2 morbid obesity and paraplegia. NEUROLOGIC: CN 2-12 grossly intact, no sensory deficit, normal cognition, normal speech, no tremor PSYCHIATRIC: alert cooperative and oriented to person, place and time. Euthymic mood, makes good eye contact, language grossly intact, recent and remote memory grossly intact. Results & Data Results & Data ([facility]) Vital Signs (Past 12 Hours) Vital Signs Temp Pulse Pulse Resp BP BP Pulse Ox 06/22/21 04:40 96 H 06/22/21 04:35 36.8 C 83 18 109/71 93 06/21/21 23:41 37.1 C 94 H 18 126/67 94 Laboratory Results Short CBC 06/22/21 Range/Units 05:52 WBC 13.76 H (4.8-10.8) K/uL Hgb 11.3 L (14.0-18.0) g/dL Hct 34.5 L (42-52) % Plt Count 173 (130-400) K/uL BMP 06/22/21 05:52 Sodium 131 L Potassium 3.8 Chloride 101 Carbon Dioxide 26 BUN 39 H Creatinine 1.29 Glucose 255 H Calcium 8.7 Medications Administered Current Inpatient Medications Acetaminophen (Acetaminophen 500 Mg Tab) 1,000 mg PO Q6H PRN PRN Reason: Pain Stop: 07/15/21 03:13 Last Admin: 06/20/21 15:43 Dose: 1,000 mg Documented by: Albuterol (Albuterol 0.083% Nebu Soln 3 Ml Vial) 2.5 mg NEB Q6R PRN PRN Reason: Shortness Of Breath Or Wheezing Stop: 07/15/21 02:18 Allopurinol (Allopurinol 100 Mg Tab) 100 mg PO BID JO Stop: 07/15/21 02:18 Last Admin: 06/22/21 08:51 Dose: 100 mg Documented by: Atorvastatin Calcium (Atorvastatin 40 Mg Tab) 40 mg PO HS JO Stop: 07/15/21 02:18 Last Admin: 06/21/21 22:02 Dose: 40 mg Documented by: Baclofen (Baclofen 10 Mg Tab) 10 mg PO QID JO Stop: 07/15/21 02:18 Last Admin: 06/22/21 08:51 Dose: 10 mg Documented by: Cefdinir (Cefdinir 300 Mg Cap) 300 mg PO BID JO Stop: 07/21/21 20:59 Last Admin: 06/22/21 08:51 Dose: 300 mg Documented by: Cyclobenzaprine HCl (Cyclobenzaprine Hcl 5 Mg Tab) 15 mg PO HS JO Stop: 07/15/21 03:14 Last Admin: 06/21/21 21:58 Dose: 15 mg Documented by: Dextrose (Dextrose 50% 50 Ml Syringe) 25 - 50 ml IV UD PRN; Protocol PRN Reason: Hypoglycemia Protocol Stop: 07/15/21 02:18 Last Admin: 06/20/21 08:21 Dose: 25 ml Documented by: Escitalopram Oxalate (Escitalopram Oxalate 20 Mg Tab) 20 mg PO QAM JO Stop: 07/15/21 08:59 Last Admin: 06/22/21 08:52 Dose: 20 mg Documented by: Famotidine (Famotidine 20 Mg Tab) 20 mg PO BID JO Stop: 07/15/21 02:18 Last Admin: 06/22/21 08:51 Dose: 20 mg Documented by: Ferrous Gluconate (Ferrous Gluconate 324 Mg Tab) 324 mg PO QAM JO Stop: 07/15/21 08:59 Last Admin: 06/22/21 08:51 Dose: 324 mg Documented by: Furosemide (Furosemide 40 Mg Tab) 40 mg PO BID17 JO Stop: 07/17/21 16:59 Last Admin: 06/20/21 09:48 Dose: 40 mg Documented by: Gabapentin (Gabapentin 800 Mg Tab) 800 mg PO BID JO Stop: 07/15/21 02:18 Last Admin: 06/22/21 08:51 Dose: 800 mg Documented by: Glucagon (Glucagon For Inj 1 Mg Vial) 1 mg SQ UD PRN; Protocol PRN Reason: Hypoglycemia Protocol Stop: 07/15/21 02:18 Glucose (Glucose 10 Tabs/Tube) 4 - 8 tabs PO UD PRN; Protocol PRN Reason: Hypoglycemia Protocol Stop: 07/15/21 02:18 Glucose (Glucose 40% Gel 15 Gm Tube) 15 - 30 gm PO UD PRN; Protocol PRN Reason: Hypoglycemia Protocol Stop: 07/15/21 02:18 Heparin Sodium (Porcine) (Heparin Sod 5,000 Unit/0.5 Ml Vial) 7,500 units SQ Q8 OJ Stop: 07/15/21 03:14 Last Admin: 06/22/21 06:13 Dose: 7,500 units Documented by: Hyoscyamine (Hyoscyamine Sulfate 0.125 Mg Tab) 0.125 mg PO QPM [facility] Stop: 07/15/21 02:18 Last Admin: 06/21/21 22:00 Dose: 0.125 mg Documented by: Insulin Aspart (Insulin Aspart 100 Units/Ml 3 Ml Pen) 0 units SC ACHS [facility] Stop: 07/20/21 16:29 Last Admin: 06/22/21 08:53 Dose: 29 units Documented by: Insulin Human NPH (Insulin Human Nph) 50 units SC QDB [facility]; Protocol Stop: 07/22/21 07:29 Last Admin: 06/22/21 08:53 Dose: 50 units Documented by: Insulin Human NPH (Insulin Human Nph) 40 units SC QDD [facility]; Protocol Stop: 07/22/21 16:29 Lactobacillus Acidoph/Casei/Rhamnos (Advanced Probiotic 1250 Mg Capsule) 2 cap PO DAILY [facility] Stop: 07/15/21 08:59 Last Admin: 06/21/21 08:34 Dose: 2 cap Documented by: Magnesium Oxide (Magnesium Oxide 400 Mg Tab) 400 mg PO BID [facility] Stop: 07/15/21 03:14 Last Admin: 06/22/21 08:52 Dose: 400 mg Documented by: Melatonin (Melatonin 3 Mg Tab) 6 mg PO HS PRN PRN Reason: Sleep Stop: 07/15/21 19:49 Last Admin: 06/21/21 23:51 Dose: 6 mg Documented by: Methenamine Hippurate (Methenamine Hippurate 1 Gm Tab) 1 gm PO BID [facility] Stop: 07/15/21 02:18 Last Admin: 06/22/21 08:51 Dose: 1 gm Documented by: Miscellaneous (Bethanechol~Order Awaiting Action) 1 ea N/A QS [facility] Stop: 07/15/21 07:59 Last Admin: 06/22/21 08:17 Dose: Not Given Documented by: Miscellaneous (Carbohydrates For Hypoglycemia ) 15 - 30 gm PO UD PRN PRN Reason: Hypoglycemia Protocol Stop: 07/15/21 02:18 Miscellaneous Information (Pharmacy Glycemic Mgmt Consult) 1 ea N/A UD PRN PRN Reason: Consult Stop: 07/15/21 02:18 Miscellaneous Medication (Medical Marijuana) 1 dose INH UD PRN PRN Reason: own use Stop: 07/15/21 02:44 Multivitamins (Multivitamin Tab) 1 tab PO QAM [facility] Stop: 07/15/21 08:59 Last Admin: 06/22/21 08:51 Dose: 1 tab Documented by: Pantoprazole Sodium (Pantoprazole 40 Mg Tab) 40 mg PO QAM [facility] Stop: 07/15/21 08:59 Last Admin: 06/22/21 08:51 Dose: 40 mg Documented by: Polyethylene Glycol (Polyethylene (Miralax) 17 Gm Pack) 17 gm PO DAILY PRN PRN Reason: Constipation Stop: 07/15/21 02:18 Last Admin: 06/19/21 20:36 Dose: 17 gm Documented by: Potassium Chloride (Potassium Chloride 10 Meq Tabcr) 10 meq PO BIDM [facility] Stop: 07/15/21 03:14 Last Admin: 06/15/21 11:09 Dose: Not Given Documented by: Ropinirole HCl (Ropinirole Hcl 1 Mg Tablet) 1 mg PO QID [facility] Stop: 07/15/21 02:18 Last Admin: 06/22/21 08:51 Dose: 1 mg Documented by: Spironolactone (Spironolactone 25 Mg Tab) 25 mg PO QAM [facility] Stop: 07/15/21 08:59 Last Admin: 06/22/21 08:51 Dose: 25 mg Documented by: Tizanidine HCl (Tizanidine Hcl 4 Mg Tablet) 4 mg PO BID [facility] Stop: 07/15/21 02:18 Last Admin: 06/22/21 08:52 Dose: 4 mg Documented by: Warfarin Sodium (Warfarin Sod 5 Mg Tab) 5 mg PO SuTuThSa@1600 [facility] Stop: 07/15/21 15:59 Last Admin: 06/21/21 15:30 Dose: 5 mg Documented by: Warfarin Sodium (Warfarin Sod 7.5 Mg Tab) 7.5 mg PO MoWeFr@1600 [facility] Stop: 07/16/21 15:59 Last Admin: 06/20/21 15:42 Dose: 7.5 mg Documented by: Zinc Sulfate (Zinc Sulfate 220 Mg Capsule) 220 mg PO QDL [facility] Stop: 07/15/21 11:29 Last Admin: 06/21/21 12:41 Dose: 220 mg Documented by:
[2021-06-22] MEDS: rOPINIRole HCL 1 MG TABLET PO SCH ×4 (08:51→21:17)
[2021-06-22] MEDS: SPIRONOLACTONE 25 MG TAB PO SCH (08:51)
[2021-06-22] MEDS: allopurinoL 100 MG TAB PO SCH ×2 (08:51→21:18)
[2021-06-22] MEDS: CEFDINIR 300 MG CAP PO SCH ×2 (08:51→21:17)
[2021-06-22] MEDS: METHENAMINE HIPPURATE 1 GM TAB PO SCH ×2 (08:51→21:16)
[2021-06-22] MEDS: GABAPENTIN 800 MG TAB PO SCH ×2 (08:51→21:17)
[2021-06-22] MEDS: FERROUS GLUCONATE 324 MG TAB PO SCH (08:51)
[2021-06-22] MEDS: FAMOTIDINE 20 MG TAB PO SCH ×2 (08:51→21:18)
[2021-06-22] MEDS: MULTIVITAMIN TAB PO SCH (08:51)
[2021-06-22] MEDS: BACLOFEN 10 MG TAB PO SCH ×4 (08:51→21:18)
[2021-06-22] MEDS: PANTOprazole 40 MG TAB PO SCH (08:51)
[2021-06-22] MEDS: tiZANidine HCL 4 MG TABLET PO SCH ×2 (08:52→21:19)
[2021-06-22] MEDS: ESCITALOPRAM OXALATE 20 MG TAB PO SCH (08:52)
[2021-06-22] MEDS: MAGNESIUM OXIDE 400 MG TAB PO SCH ×2 (08:52→21:17)
[2021-06-22] MEDS: INSULIN ASPART 100 UNITS/ML 3 ML PEN SC SCH ×4 (08:53→21:23)
[2021-06-22] MEDS: INSULIN HUMAN NPH SC SCH ×2 (08:53→12:27)
[2021-06-22] MEDS: ZINC SULFATE 220 MG CAPSULE PO SCH (12:20)
[2021-06-22] MEDS: ADVANCED PROBIOTIC 1250 MG CAPSULE PO SCH (12:20)
--- NOTE | 2021-06-22 12:21 | Pharmacy Report ---
Pharmacy Glycemic Short Note 2 - Date of Service June 22, 2021 - Glycemic Short BSG Results (Last 24 hours): 06/21/21 06/21/21 06/22/21 16:37 19:59 05:52 Glucose 255 H POC Glucose 258 H 259 H 06/22/21 06/22/21 07:24 11:09 Glucose POC Glucose 258 H 292 H OUTPATIENT ANTIDIABETIC REGIMEN: * Novolin 70/30 premixed insulin 56 units SQ BIDM * Metformin 1gm PO BIDM ASSESSMENT: 06/22/21 * Patient's BSGs yesterday were [phone] mg/dL. Patient received 152 units of insulin (70 units of basal and 82 units of bolus). * Fasting today was 258 mg/dL. * Had expected that patient would require a basal of 60-70 units when steroids were not ordered. Patient received this yesterday and fasting trended up significantly (177 --> 258 mg/dL). Will increase basal by ~20% to 90 units/day. * Tighten Novolog to provide additional coverage today. 06/21/21 * Patient's BSGs yesterday were [phone] mg/dL. Patient received 85 units of insulin (45 units of basal and 40 units of bolus). * Fasting today was 177 mg/dL. * Since steroids were d/c'ed and diet reordered, will start with NPH 40 units with breakfast and 30 units with dinner. Fasting elevated today because patient received less basal insulin yesterday (Patient was NPO). * Continue current Novolog orders. 06/20/21 * Patient's BSGs yesterday were [phone] mg/dL and fasting today is 87 mg/dL. * Patient received 121 units of insulin yesterday (100 units of basal and 21 units of bolus). * Steriods were cut yesterday and insulin requirements have decreased by over 50%. * Target daily basal dose of 60 units. 15 units given this morning since patient NPO. * Continue loosened Novolog. 06/18/21 * Patient's BSGs yesterday were [phone] mg/dL and fasting today is 108 mg/dL. * Patient received 329 units of insulin yesterday (170 units of basal and 159 units of bolus). * Increase morning NPH by 10% to 110 units as dinnertime BSG trends upwards. Reduce evening NPH by 10% as fasting trended downwards. Still TDD of 170 units/day * Continue Novolog. 06/17/21 * Patient's BSGs yesterday were [phone] mg/dL and fasting today is 120 mg/dL. * Patient received 276 units of insulin yesterday (160 units of basal and 116 units of bolus). * Increase morning NPH by 10% to 90 units. Continue NPH 80 units at dinnertime. * Tighten CR slightly to provide more coverage. 06/16/21 * Patient's BSGs yesterday were [phone] mg/dL and fasting today is 132 mg/dL. * Patient received 284 units of insulin yesterday (150 units of basal and 134 units of bolus). * Continue NPH with slightly lower dose of 60 units if BSG < 100 mg/dL to prevent too aggressive dosing. Agree that patient's basal needs around 150-160 units with dexamethasone. * Continue Novolog as BSGs steady yesterday. Background * 60yo T2DM male well known to pharmacy from previous admissions/glycemic consults. Most recently 06/03-06/13 admission * Pt re-started on dexamethasone 6mg IV daily - will resume SQ basal bolus insulin regimen that worked well with steroids and titrate based on BSG trends. PLAN FOR INPATIENT GLYCEMIC CONTROL: * Hold outpatient oral diabetes medications * Basal insulin * NPH 50 units in morning and 40 units in evening * Bolus insulin * NovoLog per scale ACHS or Q6hrs while NPO * Goal Range: Low 110 mg/dL - High 140 mg/dL * Correction Factor: 10 mg/dL/unit * Nutritional / Prandial insulin per carb ratio of 1 unit per 3 grams CHO consumed PLAN FOR DISCHARGE: * Patient's HBA1C currently is 8.4% which is above goal of <8% for his comorbidities. * Recommend working with outpatient provider to optimize insulin regimen by checking BSG at least twice per day at varying times per day then adjusting insulin to goal blood sugars. * Support Patient Self-Management * Healthy Lifestyle (diet, exercise, and smoking cessation) * Disease self-management (SMBG) * Prevention of complications (BP, Lipid goals, Immunizations) * Consider outpatient Diabetes Self-Management Education & Support * Most patients on multiple-dose insulin (MDI) should SMBG * Prior to meals and snacks * At bedtime * Prior to exercise * When they suspect low blood glucose * After treating low blood glucose until they are normoglycemic * Prior to critical tasks such as driving * Occasionally postprandially
[2021-06-22] MEDS ORDERED: INSULIN HUMAN NPH SC SCH (16:30)
[2021-06-22] MEDS: WARFARIN SOD 5 MG TAB PO SCH (17:31)
[2021-06-22] MEDS: CYCLOBENZAPRINE HCL 5 MG TAB PO SCH (21:17)
[2021-06-22] MEDS: ATORVASTATIN 40 MG TAB PO SCH (21:18)
[2021-06-22] MEDS: HYOSCYAMINE SULFATE 0.125 MG TAB PO SCH (21:19)
[2021-06-22] MEDS: MELATONIN 3 MG TAB PO PRN (22:53)
[2021-06-23] MEDS: INSULIN ASPART 100 UNITS/ML 3 ML PEN SC SCH ×5 (00:27→17:23)
[2021-06-23] MEDS: HEPARIN SOD 5,000 UNIT/0.5 ML VIAL SQ SCH ×2 (06:15→14:35)
[2021-06-23] MEDS ORDERED: INSULIN HUMAN NPH SC SCH ×2 (07:30→16:30)
[2021-06-23] MEDS: allopurinoL 100 MG TAB PO SCH (09:08)
[2021-06-23] MEDS: CEFDINIR 300 MG CAP PO SCH (09:09)
[2021-06-23] MEDS: BACLOFEN 10 MG TAB PO SCH ×3 (09:09→17:21)
[2021-06-23] MEDS: ESCITALOPRAM OXALATE 20 MG TAB PO SCH (09:10)
[2021-06-23] MEDS: FAMOTIDINE 20 MG TAB PO SCH (09:10)
[2021-06-23] MEDS: FERROUS GLUCONATE 324 MG TAB PO SCH (09:10)
[2021-06-23] MEDS: GABAPENTIN 800 MG TAB PO SCH (09:10)
[2021-06-23] MEDS: ADVANCED PROBIOTIC 1250 MG CAPSULE PO SCH (09:10)
[2021-06-23] MEDS: METHENAMINE HIPPURATE 1 GM TAB PO SCH (09:11)
[2021-06-23] MEDS: MAGNESIUM OXIDE 400 MG TAB PO SCH (09:11)
[2021-06-23] MEDS: tiZANidine HCL 4 MG TABLET PO SCH (09:11)
[2021-06-23] MEDS: SPIRONOLACTONE 25 MG TAB PO SCH (09:11)
[2021-06-23] MEDS: PANTOprazole 40 MG TAB PO SCH (09:11)
[2021-06-23] MEDS: MULTIVITAMIN TAB PO SCH (09:11)
[2021-06-23] MEDS: rOPINIRole HCL 1 MG TABLET PO SCH ×3 (09:11→17:21)
[2021-06-23 09:42] LABS: Basophils # (auto) 0.01 K/uL (0-0.2); Basophils % (auto) 0.1 %; Eosinophils # (auto) 0.39 K/uL (0-0.5); Eosinophils % (auto) 3.3 %; Hematocrit (blood only) 33.9 % (42-52); Hemoglobin 11.2 g/dL (14.0-18.0); Immature Granulocytes # (auto) 0.04 K/uL (0.00-0.02); Immature Granulocytes % (auto) 0.3 %; Lymphocytes # (auto) 2.09 K/uL (1.2-3.4); Lymphocytes % (auto) 17.7 %; Mean Corpuscular Hemoglobin 29.2 pg (25-34); Mean Corpuscular Volume 88.5 fL (80-100); Mean Platelet Volume 10.1 fL (7.4-10.4); Monocytes # (auto) 0.65 K/uL (0.11-0.59); Monocytes % (auto) 5.5 %; Neutrophils # (auto) 8.62 K/uL (1.4-6.5); Neutrophils % (auto) 73.1 %; Platelet Count 184 K/uL (130-400); RDW Coefficient of Variation 16.2 % (11.5-14.5); RDW Standard Deviation 52.1 fL (36.4-46.3); Red Blood Count 3.83 M/uL (4.7-6.1)
[2021-06-23 10:10] LABS: BUN Creatinine Ratio 26.1 (10-20); Calcium 8.6 mg/dl (8.5-10.1); Creatinine Clr Calc Pharmacy 95.5 ml/min; Est GFR (Non-African American) 65.5 ml/min
[2021-06-23] MEDS: INSULIN HUMAN NPH SC SCH (10:35)
[2021-06-23 11:19] VITALS: TEMP 98.6
--- NOTE | 2021-06-23 11:22 | Discharge Summary ---
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 Patient states that he was unaware of the events during the episode. He believes that his noticed him to have passed out for about 30 seconds today. He denies any dizziness, nausea, shortness of breath, head trauma, change in vision, seizure-like activity. He was found to be hypoxic in the 85% on room air while in ED which improved with 2 L of supplemental oxygen. His systolic blood pressure was in 80s which improved with IV fluids. His INR was noted to be subtherapeutic at 1.5. Potassium levels noted at 3.3. CT head showed no acute intracranial abnormality. Denies any history of chest pain, SOB, cough, palpitations, cough, fever, chills, headache, nausea, vomiting, abdominal pain, diarrhea, dysuria, hematuria. Discharge Data Allergies Allergy/AdvReac Type Severity Reaction Status Date / Time codeine Allergy Severe THROAT Verified 06/14/21 11:17 SWELLS latex Allergy Intermediate welts Verified 06/14/21 11:17 piperacillin Allergy Intermediate RASH Verified 06/14/21 11:17 Sulfa (Sulfonamide Allergy Intermediate HIVES Verified 06/14/21 11:17 Antibiotics) tazobactam Allergy Intermediate RASH Verified 06/14/21 11:17 aztreonam Allergy Unknown unknown Verified 06/14/21 11:17 metoclopramide [From Reglan] AdvReac Mild lethargy Verified 06/14/21 11:17 Consultations 06/14/21 15:28 ED Decision to Admit Stat 06/15/21 08:59 Consult Urology Routine 06/17/21 19:40 Consult Infectious Diseases Routine 06/19/21 08:15 Consult Gastroenterology Routine 06/20/21 09:10 Consult General Surgery Routine Ordered Studies 06/14/21 12:32 CT abd pelvis wo con Stat CT head/brain wo con Stat 06/15/21 02:19 US carotid doppler BI Routine 06/18/21 18:28 CT angio chest PE protocol Urgent US venous doppler LE BI Urgent 06/18/21 20:50 US liver Urgent 06/19/21 09:49 MR MRCP Routine 06/20/21 11:32 MR pelvis wo/w con Routine Hospital Course (1) Syncope: Syncope at home likely secondary to malaise with possible hypotension/hypoxia. Occurred when patient was transferred to shower chair and this has happened before in previous years. Recent illness with covid, however, also something acute appears to be ongoing as patient has new. Suspect possible fungal? superinfection to wound based on description given by today and the fact that he had steroids recently minimizing his ability to fight off an infection. Leukocytosis is resolving and is likely related to the decadron that was given, steroids were stopped on 06/18. Antibiotics stopped yesterday morning and he has been afebrile and feeling well. Will watch fever curve. If fever, then will consider doing fungal and bacterial swabs of his gluteal wound. If not, then to home tomorrow. (2) Fever: Consideration given to infectious and noninfectious causes. Ruled out VTE, gout, UTI (colonization), pancreatitis (eating), drug fever (temp is intermittent), bacteremia (Bld cultures neg x 2), rickettsial illness, hepatitis, acute biliary tract infection (neg MRCP), pneumonia (CT chest neg). May be superficial wound infection as above. No antibiotics. (3) Elevated transaminase level: Decreasing. With normal MRCP, etiology includes but not limited to recent covid infection, insult with fatty liver, drug reaction or presence of transient biliary sludge. Follow-up as outpatient with PCP to ensure complete resolution to normal. (4) History of COVID-19: Recent COVID-19 infection status post treatment. Patient is on room air. At this point he is not qualifying for steroid therapy which may make an underlying infection worse. These were stopped on 06/18. Chest CT was performed revealing no evidence of pneumonia at this time. (5) Sacral decubitus ulcer, stage IV: Stage IV pressure injury present for years, currently takes cefdinir twice daily at home. Restarted this now since off broad spectrum IV abx. (6) Nocturnal hypoxia: Chronic oxygen dependency-2 L at bedtime (7) Morbid obesity: complicates many issues. He is mostly bedbound/wheelchair bound, requiring a lift at home to transfer. He has a chronic deep wound on his buttock that has been monitored for several years. He is currently on a specialty air mattress. Weight loss advised. (8) Anticoagulated on Coumadin: Long-term anticoagulation with Coumadin for recurrent DVTs in the past. Patient also has a history of Marce filter which was advised to be removed but was never actually taken out. Continue to trend INR while on coumadin. (9) Neurogenic bladder: Hx neurogenic bladder 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 Suprapubic catheter in place with urine culture revealing Pseudomonas. Per ID this admission, this and yeast are likely a colonization. Urology also saw patient and exchange suprapubic catheter on June 16. (10) CKD (chronic kidney disease), stage III: Chronic, at baseline creatinine level. Continue to monitor. (11) DM type 2 (diabetes mellitus, type 2): Currently at inpatient goal. Appreciate inpatient glycemic pharmacist assistance with management. Continue current insulin regimen. Monitor BSG closely. (12) DVT prophylaxis: Coumadin Full code Disposition-continue hospitalization. Will likely be home Wed or . Rylee Hay DO [facility] Hospitalist Discharge Plan Discharge Items Patient Disposition: Home - Home Health Services Reason For Visit: SYNCOPE Discharge Diagnosis: SYNCOPE FEVER-RESOLVED ELEVATED TRANSAMINASE LEVEL H/O COVID-19 INFECTION CHRONIC SACRAL DECUBITUS ULCER, STAGE IV NOCTURNAL HYPOXIA MORBID OBESITY ANTICOAGULATED ON COUMADIN NEUROGENIC BLADDER W/SUPRAPUBIC CATHETER IN PLACE DMII Condition on Discharge: Good Activity: Resume your previous activity Non-emergency contact: Primary Care Provider Call non-emergency contact if: you have any medication questions, you have a fever, your wound has increased redness, your wound has increased drainage and your wound pain has increased Follow-up/Referrals: Wilder Stanford MD [Primary Care Provider] - (Date & Time 06/30/2021 11:20 AM Provider Wilder Stanford MD Department Family Medicine [facility] ) Diet: Carb Consistent or DM2 and Heart Healthy Addtl Attending Provider Instructions: Please continue all medications as instructed on discharge list below. Please follow-up with your home wound clinic to evaluate your wound. Your liver enzymes are slightly elevated, which is likely related to your recent covid-19 infection and presence of hepatic steatosis. Please follow-up with your primary care physician in one week and touch base after going home. At this time, repeat liver enzymes may be ordered, or other blood work as needed. This will also be a check to ensure that you don't have a return of fever. It was a pleasure taking care of you! Please call if you have any questions or problems. You can reach a [facility] hospitalist on duty at [facility] 24 hours a day by calling [phone]. Take care of yourself. Rylee Hay, DO [facility] Hospitalist Pending Studies at Discharge: No Stand-Alone Forms: My [facility] Medications and DC Order Prescriptions: Continued warfarin 5 mg tablet 5 mg PO 3XWK RF: 0 escitalopram oxalate 20 mg tablet 20 mg PO QAM RF: 0 Novolin 70/30 U-100 Insulin 100 unit/mL (70-30) suspension 56 unit subcut BID RF: 0 atorvastatin 40 mg tablet 40 mg PO HS RF: 0 allopurinol 100 mg Tablet 100 mg PO BID RF: 0 ropinirole 1 mg Tablet 1 mg PO QID RF: 0 furosemide 40 mg Tablet 40 mg PO BID RF: 0 gabapentin 800 mg Tablet 800 mg PO BID RF: 0 ferrous gluconate 324 mg (38 mg iron) Tablet 324 mg PO QAM RF: 0 multivitamin Tablet 1 tab PO QAM RF: 0 pantoprazole 40 mg Tablet,Delayed Release (Dr/Ec) 40 mg PO QAM RF: 0 magnesium oxide 400 mg (241.3 mg magnesium) Tablet 400 mg PO BID RF: 0 baclofen 10 mg tablet 10 mg PO QID RF: 0 cyclobenzaprine 10 mg tablet 15 mg PO HS RF: 0 hyoscyamine sulfate 0.125 mg tablet 0.125 mg PO QPM RF: 0 potassium chloride 10 mEq tablet extended release 10 meq PO BIDM RF: 0 spironolactone [Aldactone] 25 mg tablet 25 mg PO QAM RF: 0 Medical Marijuana See Rx Instructions .ROUTE .COMPLEX RF: 0 methenamine hippurate 1 gram Tablet 1 g PO BID 30 Days Qty: 60 RF: 2 famotidine [Acid Shirt Creaser (famotidine)] 20 mg Tablet 20 mg PO BID RF: 0 ascorbic acid (vitamin C) [Vitamin C] 500 mg Tablet 250 mg PO TID RF: 0 zinc sulfate 50 mg zinc (220 mg) Capsule 50 mg PO QDL RF: 0 bethanechol chloride 5 mg Tablet 5 mg PO TID RF: 0 Lactobacillus acidoph-L.bulgar [Floranex] 1 million cell Tablet 1 tab PO BID RF: 0 nystatin-triamcinolone 100,000-0.1 unit/g-% Cream 1 applic TOPICAL BID RF: 0 nystatin 100,000 unit/gram Powder 1 applic TOPICAL BID PRN (Reason: Rash) RF: 0 yippdt-okvx-ii xrqf-sn-uuqupyz 81.6-0.12-10.8 mg Tablet 1 tab PO QPM RF: 0 Novolin R Regular U-100 Insuln 100 unit/mL Solution 1 sliding scale dose SUBCUT USEASDIRECTD RF: 0 [id number]-Fxpypj-R2-B12 3-35-2 mg Tablet 1 tab PO BID RF: 0 triamcinolone acetonide 0.1 % Cream 1 applic TOPICAL BID PRN (Reason: Rash) RF: 0 acetaminophen 500 mg Capsule 1,000 mg PO Q6H PRN (Reason: Pain) RF: 0 menthol-zinc oxide [Calmoseptine] 0.44-20.6 % Ointment 1 applic TOPICAL QID PRN (Reason: Rash) RF: 0 warfarin 7.5 mg Tablet 7.5 mg PO 4XWK RF: 0 irbesartan 75 mg tablet 75 mg PO DAILY RF: 0 metformin 1,000 mg tablet 1,000 mg PO BIDM RF: 0 No Action tizanidine 4 mg tablet 4 mg PO BID RF: 0 Discharge Orders: Discharge Order (Routine); Ordered 06/23/21 Ordered By: Rylee Hay Admission Data Admit Date/Time: 06/14/21 16:23 Attending Provider: Rylee Hay Admit Provider: Jose Osullivan Primary Care Provider: Wilder Stanford Other Providers: Jose Osullivan ; Steve Poole ; Hill Perez ; David Moreno ; Sola Partida ; Toño Dominguez ; Jyotsna Morrissey ; Dorie Chong ; Irena Rteana ; Timo Barrera ; Alistair Alexandra ; Di Parks ; Maria M Retana ; Case Mcgill ; Dereck Mejia ; Ellen Garcia ; Roque Mcgovern I. ; Casey Bell II ; Yeny Leary ; Amaury Jenkins ; Artemio Boyd ; Stephanie Molina ; Hill Pena
[2021-06-23 11:43] LABS: INR 1.8 (0.9-1.1); Prothrombin Time 17.8 Seconds (9.0-12.0)
[2021-06-23] MEDS: ZINC SULFATE 220 MG CAPSULE PO SCH (12:19)
[2021-06-23 15:27] VITALS: BP 157/86; PULSE 78; O2SAT 96
[2021-06-23] MEDS: WARFARIN SOD 7.5 MG TAB PO SCH (16:17)
[2021-06-25 11:11] LABS: Babesia microti DNA Not Detected (Not Detected)
--- NOTE | 2021-07-01 08:07 | Coding Query ---
CODING QUERY To promote full compliance with coding requirements relating to patient care, provider participation is requested in all cases of information coder uncertainty. Please assist us with the question(s) below: Coding Question(s): Patient with prior adm for Covid Pneumonia, now admitted due to syncope . Covid Pneumonia ruled out ....CT chest negative for pneumonia. 06/15 Hospitalist progress note documented acute/chronic respiratory failure with hypoxia. ED oxymetry 93,90, DS documented hypoxia/hypotension as reason for admission. Seeking to clarify the type of hypoxia responsiible for admission. Please check below the phrase that describes the hypoxia. Thanks for your help! Mike Doan, [facility] Physician's Response(s): Hypoxia, not otherwise specified Acute Respiratory failure with hypoxia Acute on Chronic Respiratory failure with hypoxia ___x____ Other: please document: ____hypoxia was not formally observed but was assumed given the discharge home wtih pneumonia one day prior to readmission and the oxygen dependency at night in this patient Principal Diagnosis: "that condition established after study, to be chiefly responsible for occasioning the admission of the patient to the hospital for care." Co-Existing Principal Diagnosis: "when two or more diagnoses equally meet the criteria for principal diagnosis as determined by the circumstances of admission, diagnostic work up, and/or therapy provided, and the Alphabetic Index, Tabular List, or another coding guideline does not provide sequencing direction, any one of the diagnoses may be sequenced first." "When the physician has documented what appears to be a current diagnosis in the body of the record, but has not included the diagnosis in the final diagnostic statement, the physician should be asked whether the diagnosis should be added." (Source Coding [facility] 2 QTR90. p3-4) ANNY
== END 2021-06-23 18:30 | disposition home health service (06) | DRG 189 ==
LOC: ED 10:00 → 2N 16:23 → SUATTDRO 16:23 → 2N 06-15 01:16

== ENCOUNTER 2021-09-05 22:33 | Inpatient (IN) ==
[2021-09-05] MEDS ORDERED: ACETAMINOPHEN 1,000 MG/100 ML VIAL IV STA (22:53)
[2021-09-05] MEDS ORDERED: CEFEPIME 2,000 MG/20 ML VIAL IV STA (22:53)
[2021-09-05] MEDS ORDERED: SODIUM CHLORIDE 0.9% 1000ML 1,000 ML IV ONE (22:53)
[2021-09-05] MEDS ORDERED: VANCOMYCIN HCL 2,750 MG in SODIUM CHLORIDE 0.9% 500 ML IV ONE (22:53)
[2021-09-05] MEDS ORDERED: VANCOMYCIN CONSULT ACTIVE PRN (22:53)
--- NOTE | 2021-09-05 23:04 | Emergency Department Note ---
History of Present Illness General Chief complaint: Fever Stated complaint: LETHARGY Time Seen by Provider: 09/05/21 22:41 History of Present Illness Maximum Pain Intensity: 5 This 60-year-old presents to the ER complaining of fever and generalized illness he was just discharged from [place] for decubitus ulcer infections that follows at the wound clinic with Dr. Richardson. Location: Generalized Quality: Weak and achy Severity: Moderate Duration: Past day Timing: Started yesterday Context: Patient had a fever and was sent in Modifying factors: better with rest; worse with activity Patient states he follows with the wound clinic at [facility]. He has extensive decubitus ulcers to his gluteal region. He is in a wheelchair from his quadriplegia. He has a Martinez and a ostomy. He is vaccinated for Covid. He has the booster. Patient denies chest pain, dyspnea, abdominal pain, vomiting. Home Medications Medication Instructions Recorded Confirmed Type allopurinol 100 mg tablet 100 mg PO BID 05/07/18 09/05/21 History ferrous gluconate 324 mg (38 mg 324 mg PO QAM 05/07/18 09/05/21 History iron) tablet furosemide 40 mg tablet 40 mg PO BID 05/07/18 09/05/21 History gabapentin 800 mg tablet 800 mg PO BID 05/07/18 09/05/21 History magnesium oxide 400 mg (241.3 mg 400 mg PO BID 05/07/18 09/05/21 History magnesium) tablet multivitamin 1 tab PO QAM 05/07/18 09/05/21 History pantoprazole 40 mg tablet,delayed 40 mg PO QAM 05/07/18 09/05/21 History release ropinirole 1 mg tablet 1 mg PO QID 05/07/18 09/05/21 History escitalopram oxalate 20 mg tablet 20 mg PO QAM tab 08/21/19 09/05/21 History insulin human U-100 NPH-regulr 56 unit SUBCUT BID 08/21/19 09/05/21 History 70-30 mix 100 unit/mL subcutaneous susp (Novolin 70/30 U-100 Insulin) warfarin 5 mg tablet 5 mg PO 3XWK tab 08/21/19 09/05/21 History atorvastatin 40 mg tablet 40 mg PO HS 08/24/19 09/05/21 History baclofen 10 mg tablet 10 mg PO QID 09/22/19 09/05/21 History cyclobenzaprine 10 mg tablet 15 mg PO HS 03/01/20 09/05/21 History hyoscyamine sulfate 0.125 mg tablet 0.125 mg PO QPM 03/01/20 09/05/21 History potassium chloride 10 mEq 10 meq PO BIDM 03/01/20 09/05/21 History tablet,extended release spironolactone 25 mg tablet 25 mg PO QAM 03/01/20 09/05/21 History (Aldactone) tizanidine 4 mg tablet 4 mg PO BID 03/01/20 09/05/21 History Medical Marijuana See Rx Instructions .ROUTE .COMPLEX 03/26/20 09/05/21 History methenamine hippurate 1 gram tablet 1 g PO BID 30 Days #60 tab 04/02/20 09/05/21 Rx ascorbic acid (vitamin C) 500 mg 250 mg PO TID 12/03/20 09/05/21 History tablet (Vitamin C) famotidine 20 mg tablet (Acid 20 mg PO BID 12/03/20 09/05/21 History [employer] (famotidine)) zinc sulfate 50 mg zinc (220 mg) 50 mg PO QDL 12/03/20 09/05/21 History capsule Lactobacillus acidoph-L.bulgaricus 1 tab PO BID 01/03/21 09/05/21 History 1 million cell tablet (Floranex) acetaminophen 500 mg capsule 1,000 mg PO Q6H PRN 01/03/21 09/05/21 History bethanechol chloride 5 mg tablet 5 mg PO TID 01/03/21 09/05/21 History insulin regular human 100 unit/mL 1 sliding scale dose SUBCUT 01/03/21 09/05/21 History injection solution (Novolin R USEASDIRECTD Regular U-100 Insulin) mecobalamin-levomefolate 1 tab PO BID 01/03/21 09/05/21 History calcium-pyridoxal phos 3 mg-35 mg-2 mg tablet ([id number]) menthol 0.44 %-zinc oxide 20.6 % 1 applic TOPICAL QID PRN 01/03/21 09/05/21 History topical ointment (Calmoseptine) methenamin 81.6 mg-hyoscyam 0.12 1 tab PO QPM 01/03/21 09/05/21 History mg-methblue 10.8 wd-tg-gshandn tablet nystatin 100,000 unit/gram topical 1 applic TOPICAL BID PRN 01/03/21 09/05/21 History powder nystatin-triamcinolone 100,000 1 applic TOPICAL BID 01/03/21 09/05/21 History unit/g-0.1 % topical cream triamcinolone acetonide 0.1 % 1 applic TOPICAL BID PRN 01/03/21 09/05/21 History topical cream irbesartan 75 mg tablet 75 mg PO DAILY 06/02/21 09/05/21 History warfarin 7.5 mg tablet 7.5 mg PO 4XWK 06/02/21 09/05/21 History metformin 1,000 mg tablet 1,000 mg PO BIDM 06/14/21 09/05/21 History cefdinir 300 mg capsule 300 mg PO BID 06/23/21 09/05/21 History Allergies Allergy/AdvReac Type Severity Reaction Status Date / Time codeine Allergy Severe THROAT Verified 09/05/21 23:32 SWELLS latex Allergy Intermediate welts Verified 09/05/21 23:32 piperacillin Allergy Intermediate RASH Verified 09/05/21 23:32 Sulfa (Sulfonamide Allergy Intermediate HIVES Verified 09/05/21 23:32 Antibiotics) tazobactam Allergy Intermediate RASH Verified 09/05/21 23:32 aztreonam Allergy Unknown unknown Verified 09/05/21 23:32 metoclopramide [From Reglan] AdvReac Mild lethargy Verified 09/05/21 23:32 Past Med/Surg History Medical History Asymptomatic bacteriuria Clostridium difficile infection (Unknown) CVA (cerebral vascular accident) DM type 2 (diabetes mellitus, type 2) Dyslipidemia Dysphagia Fever History of blood clots History of DVT (deep vein thrombosis) Hypertension Hypotension Ileus Kidney disease Leukocytosis Major depressive disorder, recurrent Obesity Occluded PICC line Positive urine culture Quadriplegia BRAIN INJURY 11 YRS AGO Seizure SIRS (systemic inflammatory response syndrome) Sleep apnea (Unknown) OXYGEN 2L/MIN NC HS Syncope 57 year old with know quadriplegia and new onset syncope with change in position UTI (urinary tract infection) RECENT [facility] ADMISION-D/C 04/02/21 Surgical History History of colonoscopy 2010 History of open reduction and internal fixation (ORIF) procedure LEFT FEMUR Insertion of inferior vena caval filter (Unknown) Lithotripsy (Unknown) "laser lithotripsy left ureteral stone 03/17/11 " S/P knee surgery S/P tonsillectomy Suprapubic cystostomy (Unknown) IN PLACE Family History Mother No pertinent family history Family history of diabetes mellitus Father Family hx of colon cancer Social History Smoking Status: Never smoker Second Hand Exposure: No; Hx Alcohol Use: No Hx Substance Use: Yes Last Used Substance: Days (ago) Substance Use Type Other:: medical card at home with pt . Preferred Language: Turkmen Communication Ability: Effective Visual Impairment: No Limitations Warp Starter Required: No Beliefs That Will Affect Care: None marital status: Current Living Situation: Spouse Current Living Situation Comment: lives at home with and 2 dogs. No kids at home. current occupational status: disabled Feels Safe at Home: Yes Physical Activity Frequency Comment: QUADRAPLEGIA C4-5-ABLE TO MOVE ARMS, HANDS Assistive Devices: Oxygen - at Night Review of Systems A total of 10 systems reviewed and were otherwise negative Physical Exam Vital Signs Vital Signs - 24 hr 09/05/21 22:35 09/05/21 23:10 09/06/21 00:38 Temperature 38.6 C H Temperature Source Oral Pulse Rate 120 H Pulse Rate [Left Finger] 106 H Respiratory Rate 22 23 Respiratory Effort / Characteristics Non-Labored Non-Labored Respiratory Depth Normal Blood Pressure 134/70 Blood Pressure [Right Arm] 122/54 L Blood Pressure Mean 91 Blood Pressure Mean [Right Arm] 76 Blood Pressure Position [Right Arm] Sitting Pulse Oximetry 90 93 96 Oxygen Delivery Method Room Air Room Air Room Air Oxygen Flow Rate Sepsis Recent Fever Within 48 Hours Yes Sepsis New/Unexplained Change in Mental Status N/A Sepsis Action Taken by Nursing Adv Provider Notified 09/06/21 03:26 09/06/21 03:28 09/06/21 04:00 Temperature Temperature Source Pulse Rate Pulse Rate [Left Finger] 92 H 98 H Respiratory Rate 16 16 Respiratory Effort / Characteristics Respiratory Depth Blood Pressure Blood Pressure [Right Arm] 100/62 114/66 Blood Pressure Mean Blood Pressure Mean [Right Arm] 74 82 Blood Pressure Position [Right Arm] Pulse Oximetry 94 95 Oxygen Delivery Method Nasal Cannula Nasal Cannula Nasal Cannula Oxygen Flow Rate 2 2 2 Sepsis Recent Fever Within 48 Hours Sepsis New/Unexplained Change in Mental Status Sepsis Action Taken by Nursing VITALS: Vitals are noted on the nurse's note and reviewed by myself. Vital signs febrile and tachycardic. GENERAL: White male BMI of 47 who appears ill SKIN: Extensive decubitus ulcers to the gluteal region with signs of infection left greater than right, wound culture was taken, the rest of the skin was without rashes, erythema, edema, or bruising. There is no tenting of the skin. Capillary reflex less than 2 seconds. HEAD: Normocephalic atraumatic. EARS: External auditory canals clear, EYES: Pupils equal round and reactive to light and accommodation. Conjunctivae without injection, sclerae without icterus. Extraocular movements intact. NOSE: Patent, turbinates without inflammation or discharge. MOUTH: Mucous membranes moist. Pharynx without erythema or exudate. Uvula midline. Airway patent. Tongue does not deviate. NECK: Supple without nuchal rigidity. No lymphadenopathy. No thyromegaly. Cervical spine is nontender. No JVD. HEART: Regular rate and rhythm LUNGS: Clear to auscultation bilaterally without wheezes, rales or rhonchi. No retractions or accessory muscle use. ABDOMEN: Positive bowel sounds x 4. Normal tympanic percussion. Soft, nontender, without masses or organomegaly. Zuñiga sign negative. No guarding or rebound tenderness. No CVA tenderness MUSCULOSKELETAL: No muscle atrophy noted. NEURO: Patient was alert and oriented to person place and time. Normal sensation to light and sharp touch. No focal neurological deficits. Course Administered Medications Discontinued Medications Sodium Chloride (Nss 1000ml) 1,000 mls @ 999 mls/hr IV .Q1H1M ONE Stop: 09/05/21 23:53 Last Infusion: 09/06/21 00:41 Dose: 0 mls/hr Documented by: [id number] Admin: 09/05/21 23:40 Dose: 999 mls/hr Documented by: [id number] Acetaminophen (Ofirmev) 1,000 mg in 100 mls @ 400 mls/hr IV NOW STA Stop: 09/05/21 23:07 Last Infusion: 09/06/21 00:00 Dose: 0 mls/hr Documented by: [id number] Admin: 09/05/21 23:40 Dose: 400 mls/hr Documented by: [id number] Vancomycin HCl 2,750 mg/ (Sodium Chloride) 555 mls @ 180 mls/hr IV NOW ONE Stop: 09/06/21 01:57 Last Admin: 09/06/21 00:51 Dose: 180 mls/hr Documented by: [id number] Cefepime HCl (Maxipime) 2,000 mg in 20 mls @ 5 mls/min IV NOW STA; Protocol Stop: 09/05/21 22:56 Last Admin: 09/06/21 00:35 Dose: 5 mls/min Documented by: [id number] Lactated Ringer's (Lr) 1,000 mls @ 500 mls/hr IV .Q2H STA Stop: 09/06/21 02:44 Last Infusion: 09/06/21 02:53 Dose: 0 mls/hr Documented by: [id number] Admin: 09/06/21 00:51 Dose: 500 mls/hr Documented by: [id number] Metronidazole (Flagyl) 500 mg in 100 mls @ 100 mls/hr IV ONE STA Stop: 09/06/21 02:03 Last Infusion: 09/06/21 04:01 Dose: 0 mls/hr Documented by: [id number] Admin: 09/06/21 02:56 Dose: 100 mls/hr Documented by: [id number] Phytonadione 10 mg/ Sodium (Chloride) 51 mls @ 102 mls/hr IV ONE ONE Stop: 09/06/21 02:27 Last Admin: 09/06/21 03:57 Dose: 102 mls/hr Documented by: [id number] Ioversol (Optiray 320 125ml) 120 ml IV ONCE ONE Stop: 09/06/21 00:32 Last Admin: 09/06/21 00:31 Dose: 120 ml Documented by: [id number] Miscellaneous Information (Dc All Anticoagulants ) 1 ea N/A NOW ONE Stop: 09/06/21 01:35 Last Admin: 09/06/21 04:00 Dose: Not Given Documented by: [id number] Medical Decision Making Medical Records Attestation: I reviewed the patient's medical records. Home Medications Current Medication List: was personally reviewed by me Laboratory Data Attestation: I reviewed the patient's lab results. Result diagrams: 09/05/21 23:05 09/05/21 23:05 Lab Results 09/05/21 09/05/21 09/05/21 Range/Units 23:05 23:05 23:05 WBC 22.73 H (4.8-10.8) K/uL RBC 2.95 L (4.7-6.1) M/uL Hgb 8.4 L (14.0-18.0) g/dL Hct 27.1 L (42-52) % MCV 91.9 (80-100) fL MCH 28.5 (25-34) pg MCHC 31.0 L (32-36) g/dL RDW Std Deviation 63.3 H (36.4-46.3) fL RDW Coeff of Yoseph 18.8 H (11.5-14.5) % Plt Count 420 H (130-400) K/uL MPV 8.5 (7.4-10.4) fL Immature Gran % (Auto) 0.6 % Neut % (Auto) 87.4 % Lymph % (Auto) 9.3 % Glynn % (Auto) 2.3 % Eos % (Auto) 0.4 % Baso % (Auto) 0.0 % Neut # (Auto) 19.85 H (1.4-6.5) K/uL Lymph # (Auto) 2.11 (1.2-3.4) K/uL Glynn # (Auto) 0.53 (0.11-0.59) K/uL Eos # (Auto) 0.10 (0-0.5) K/uL Baso # (Auto) 0.01 (0-0.2) K/uL Immature Gran # (Auto) 0.13 H (0.00-0.02) K/uL PT 21.2 H (9.0-12.0) Seconds INR 2.2 H (0.9-1.1) APTT 56.7 H* (21.0-31.0) Seconds PTT Ratio 2.2 Sodium 132 L (136-145) mmol/L Potassium 4.0 (3.5-5.1) mmol/L Chloride 93 L (98-107) mmol/L Carbon Dioxide 36 H (21-32) mmol/L Anion Gap 3.0 (3-11) BUN 19 H (7-18) mg/dl Creatinine 1.22 (0.6-1.4) mg/dl Est Cr Clr Drug Dosing 96.0 ml/min Est GFR ( Amer) 73.7 ml/min Est GFR (Non-Af Amer) 63.6 ml/min BUN/Creatinine Ratio 15.8 (10-20) Glucose 206 H (70-99) mg/dl Lactate (0.4-2.0) mmol/L Calcium 9.2 (8.5-10.1) mg/dl Magnesium 1.9 (1.8-2.4) mg/dl Total Bilirubin 0.4 (0.2-1) mg/dl AST 23 (15-37) U/L ALT 37 (12-78) Alkaline Phosphatase 88 (45-117) U/L Ammonia (11-32) umol/L Total Creatine Kinase 37 L (39-308) U/L Troponin I < 0.015 (0-0.045) ng/ml Total Protein 7.6 (6.4-8.2) gm/dl Albumin 2.0 L (3.4-5.0) gm/dl Globulin 5.6 H (2.5-4.0) gm/dl Albumin/Globulin Ratio 0.4 L (0.9-2) Procalcitonin (0-0.5) ng/ml Urine Color Urine Appearance (Clear) Urine pH (4.5-7.5) Ur Specific [place] (1.000-1.030) Urine Protein (Negative) Urine Glucose (UA) (Negative) Urine Ketones (Negative) Urine Blood (Negative) Urine Nitrite (Negative) Urine Bilirubin (Negative) Urine Urobilinogen (Negative) Ur Leukocyte Esterase (Negative) Urine WBC (Auto) (0-5) /hpf Urine RBC (Auto) (0-4) /hpf U Hyaline Cast (Auto) (0-5) /lpf U Epithel Cells (Auto) (0-5) /lpf Urine Bacteria (Auto) (Negative) Granular Casts (0) /lpf Urine Yeast (None Prsent) Stl C. diff Tox B Gene (Neg) Adenovirus (PCR) (NotDetected) B. pertussis DNA (PCR) (NotDetected) B.parapertussis DNA PCR (NotDetected) C. pneumoniae DNA (PCR) (NotDetected) Coronavirus OC43 (PCR) (NotDetected) Coronavirus HKU1 (PCR) (NotDetected) Coronavirus 229E (PCR) (NotDetected) SARS-CoV-2 (PCR) (NotDetected) Coronavirus NL63 (PCR) (NotDetected) Human Metapneumovir PCR (NotDetected) Influenza Type A (PCR) (NotDetected) Influenza Type B (PCR) (NotDetected) M. pneumoniae (PCR) (NotDetected) Parainfluenza 1 (PCR) (NotDetected) Parainfluenza 2 (PCR) (NotDetected) Parainfluenza 3 (PCR) (NotDetected) Parainfluenza 4 (PCR) (NotDetected) RSV (PCR) (NotDetected) Entero/Rhino (PCR) (NotDetected) Blood Type Antibody Screen 09/05/21 09/05/21 09/05/21 Range/Units 23:05 23:05 23:47 WBC (4.8-10.8) K/uL RBC (4.7-6.1) M/uL Hgb (14.0-18.0) g/dL Hct (42-52) % MCV (80-100) fL MCH (25-34) pg MCHC (32-36) g/dL RDW Std Deviation (36.4-46.3) fL RDW Coeff of Yoseph (11.5-14.5) % Plt Count (130-400) K/uL MPV (7.4-10.4) fL Immature Gran % (Auto) % Neut % (Auto) % Lymph % (Auto) % Glynn % (Auto) % Eos % (Auto) % Baso % (Auto) % Neut # (Auto) (1.4-6.5) K/uL Lymph # (Auto) (1.2-3.4) K/uL Glynn # (Auto) (0.11-0.59) K/uL Eos # (Auto) (0-0.5) K/uL Baso # (Auto) (0-0.2) K/uL Immature Gran # (Auto) (0.00-0.02) K/uL PT (9.0-12.0) Seconds INR (0.9-1.1) APTT (21.0-31.0) Seconds PTT Ratio Sodium (136-145) mmol/L Potassium (3.5-5.1) mmol/L Chloride (98-107) mmol/L Carbon Dioxide (21-32) mmol/L Anion Gap (3-11) BUN (7-18) mg/dl Creatinine (0.6-1.4) mg/dl Est Cr Clr Drug Dosing ml/min Est GFR ( Amer) ml/min Est GFR (Non-Af Amer) ml/min BUN/Creatinine Ratio (10-20) Glucose (70-99) mg/dl Lactate 2.9 H* (0.4-2.0) mmol/L Calcium (8.5-10.1) mg/dl Magnesium (1.8-2.4) mg/dl Total Bilirubin (0.2-1) mg/dl AST (15-37) U/L ALT (12-78) Alkaline Phosphatase (45-117) U/L Ammonia (11-32) umol/L Total Creatine Kinase (39-308) U/L Troponin I (0-0.045) ng/ml Total Protein (6.4-8.2) gm/dl Albumin (3.4-5.0) gm/dl Globulin (2.5-4.0) gm/dl Albumin/Globulin Ratio (0.9-2) Procalcitonin 0.79 H (0-0.5) ng/ml Urine Color Urine Appearance (Clear) Urine pH (4.5-7.5) Ur Specific [place] (1.000-1.030) Urine Protein (Negative) Urine Glucose (UA) (Negative) Urine Ketones (Negative) Urine Blood (Negative) Urine Nitrite (Negative) Urine Bilirubin (Negative) Urine Urobilinogen (Negative) Ur Leukocyte Esterase (Negative) Urine WBC (Auto) (0-5) /hpf Urine RBC (Auto) (0-4) /hpf U Hyaline Cast (Auto) (0-5) /lpf U Epithel Cells (Auto) (0-5) /lpf Urine Bacteria (Auto) (Negative) Granular Casts (0) /lpf Urine Yeast (None Prsent) Stl C. diff Tox B Gene (Neg) Adenovirus (PCR) Not Detected (NotDetected) B. pertussis DNA (PCR) Not Detected (NotDetected) B.parapertussis DNA PCR Not Detected (NotDetected) C. pneumoniae DNA (PCR) Not Detected (NotDetected) Coronavirus OC43 (PCR) Not Detected (NotDetected) Coronavirus HKU1 (PCR) Not Detected (NotDetected) Coronavirus 229E (PCR) Not Detected (NotDetected) SARS-CoV-2 (PCR) Not Detected (NotDetected) Coronavirus NL63 (PCR) Not Detected (NotDetected) Human Metapneumovir PCR Not Detected (NotDetected) Influenza Type A (PCR) Not Detected (NotDetected) Influenza Type B (PCR) Not Detected (NotDetected) M. pneumoniae (PCR) Not Detected (NotDetected) Parainfluenza 1 (PCR) Not Detected (NotDetected) Parainfluenza 2 (PCR) Not Detected (NotDetected) Parainfluenza 3 (PCR) Not Detected (NotDetected) Parainfluenza 4 (PCR) Not Detected (NotDetected) RSV (PCR) Not Detected (NotDetected) Entero/Rhino (PCR) Not Detected (NotDetected) Blood Type Antibody Screen 09/05/21 09/06/21 09/06/21 Range/Units Unknown 00:40 02:59 WBC (4.8-10.8) K/uL RBC (4.7-6.1) M/uL Hgb (14.0-18.0) g/dL Hct (42-52) % MCV (80-100) fL MCH (25-34) pg MCHC (32-36) g/dL RDW Std Deviation (36.4-46.3) fL RDW Coeff of Yoseph (11.5-14.5) % Plt Count (130-400) K/uL MPV (7.4-10.4) fL Immature Gran % (Auto) % Neut % (Auto) % Lymph % (Auto) % Glynn % (Auto) % Eos % (Auto) % Baso % (Auto) % Neut # (Auto) (1.4-6.5) K/uL Lymph # (Auto) (1.2-3.4) K/uL Glynn # (Auto) (0.11-0.59) K/uL Eos # (Auto) (0-0.5) K/uL Baso # (Auto) (0-0.2) K/uL Immature Gran # (Auto) (0.00-0.02) K/uL PT (9.0-12.0) Seconds INR (0.9-1.1) APTT (21.0-31.0) Seconds PTT Ratio Sodium (136-145) mmol/L Potassium (3.5-5.1) mmol/L Chloride (98-107) mmol/L Carbon Dioxide (21-32) mmol/L Anion Gap (3-11) BUN (7-18) mg/dl Creatinine (0.6-1.4) mg/dl Est Cr Clr Drug Dosing ml/min Est GFR ( Amer) ml/min Est GFR (Non-Af Amer) ml/min BUN/Creatinine Ratio (10-20) Glucose (70-99) mg/dl Lactate 2.1 H* (0.4-2.0) mmol/L Calcium (8.5-10.1) mg/dl Magnesium (1.8-2.4) mg/dl Total Bilirubin (0.2-1) mg/dl AST (15-37) U/L ALT (12-78) Alkaline Phosphatase (45-117) U/L Ammonia (11-32) umol/L Total Creatine Kinase (39-308) U/L Troponin I (0-0.045) ng/ml Total Protein (6.4-8.2) gm/dl Albumin (3.4-5.0) gm/dl Globulin (2.5-4.0) gm/dl Albumin/Globulin Ratio (0.9-2) Procalcitonin (0-0.5) ng/ml Urine Color Yellow Urine Appearance Cloudy A (Clear) Urine pH 5.0 (4.5-7.5) Ur Specific [place] 1.017 (1.000-1.030) Urine Protein Trace H (Negative) Urine Glucose (UA) Negative (Negative) Urine Ketones Trace H (Negative) Urine Blood Negative (Negative) Urine Nitrite Negative (Negative) Urine Bilirubin Negative (Negative) Urine Urobilinogen Negative (Negative) Ur Leukocyte Esterase 3+ H (Negative) Urine WBC (Auto) >30 H (0-5) /hpf Urine RBC (Auto) 0-4 (0-4) /hpf U Hyaline Cast (Auto) 1-5 (0-5) /lpf U Epithel Cells (Auto) >30 H (0-5) /lpf Urine Bacteria (Auto) Negative (Negative) Granular Casts 1-5 H (0) /lpf Urine Yeast Present A (None Prsent) Stl C. diff Tox B Gene Negative Cdiff Gene (Neg) Adenovirus (PCR) (NotDetected) B. pertussis DNA (PCR) (NotDetected) B.parapertussis DNA PCR (NotDetected) C. pneumoniae DNA (PCR) (NotDetected) Coronavirus OC43 (PCR) (NotDetected) Coronavirus HKU1 (PCR) (NotDetected) Coronavirus 229E (PCR) (NotDetected) SARS-CoV-2 (PCR) (NotDetected) Coronavirus NL63 (PCR) (NotDetected) Human Metapneumovir PCR (NotDetected) Influenza Type A (PCR) (NotDetected) Influenza Type B (PCR) (NotDetected) M. pneumoniae (PCR) (NotDetected) Parainfluenza 1 (PCR) (NotDetected) Parainfluenza 2 (PCR) (NotDetected) Parainfluenza 3 (PCR) (NotDetected) Parainfluenza 4 (PCR) (NotDetected) RSV (PCR) (NotDetected) Entero/Rhino (PCR) (NotDetected) Blood Type Antibody Screen 09/06/21 09/06/21 Range/Units 02:59 03:01 WBC (4.8-10.8) K/uL RBC (4.7-6.1) M/uL Hgb (14.0-18.0) g/dL Hct (42-52) % MCV (80-100) fL MCH (25-34) pg MCHC (32-36) g/dL RDW Std Deviation (36.4-46.3) fL RDW Coeff of Yoseph (11.5-14.5) % Plt Count (130-400) K/uL MPV (7.4-10.4) fL Immature Gran % (Auto) % Neut % (Auto) % Lymph % (Auto) % Glynn % (Auto) % Eos % (Auto) % Baso % (Auto) % Neut # (Auto) (1.4-6.5) K/uL Lymph # (Auto) (1.2-3.4) K/uL Glynn # (Auto) (0.11-0.59) K/uL Eos # (Auto) (0-0.5) K/uL Baso # (Auto) (0-0.2) K/uL Immature Gran # (Auto) (0.00-0.02) K/uL PT (9.0-12.0) Seconds INR (0.9-1.1) APTT (21.0-31.0) Seconds PTT Ratio Sodium (136-145) mmol/L Potassium (3.5-5.1) mmol/L Chloride (98-107) mmol/L Carbon Dioxide (21-32) mmol/L Anion Gap (3-11) BUN (7-18) mg/dl Creatinine (0.6-1.4) mg/dl Est Cr Clr Drug Dosing ml/min Est GFR ( Amer) ml/min Est GFR (Non-Af Amer) ml/min BUN/Creatinine Ratio (10-20) Glucose (70-99) mg/dl Lactate (0.4-2.0) mmol/L Calcium (8.5-10.1) mg/dl Magnesium (1.8-2.4) mg/dl Total Bilirubin (0.2-1) mg/dl AST (15-37) U/L ALT (12-78) Alkaline Phosphatase (45-117) U/L Ammonia 11.0 (11-32) umol/L Total Creatine Kinase (39-308) U/L Troponin I (0-0.045) ng/ml Total Protein (6.4-8.2) gm/dl Albumin (3.4-5.0) gm/dl Globulin (2.5-4.0) gm/dl Albumin/Globulin Ratio (0.9-2) Procalcitonin (0-0.5) ng/ml Urine Color Urine Appearance (Clear) Urine pH (4.5-7.5) Ur Specific [place] (1.000-1.030) Urine Protein (Negative) Urine Glucose (UA) (Negative) Urine Ketones (Negative) Urine Blood (Negative) Urine Nitrite (Negative) Urine Bilirubin (Negative) Urine Urobilinogen (Negative) Ur Leukocyte Esterase (Negative) Urine WBC (Auto) (0-5) /hpf Urine RBC (Auto) (0-4) /hpf U Hyaline Cast (Auto) (0-5) /lpf U Epithel Cells (Auto) (0-5) /lpf Urine Bacteria (Auto) (Negative) Granular Casts (0) /lpf Urine Yeast (None Prsent) Stl C. diff Tox B Gene (Neg) Adenovirus (PCR) (NotDetected) B. pertussis DNA (PCR) (NotDetected) B.parapertussis DNA PCR (NotDetected) C. pneumoniae DNA (PCR) (NotDetected) Coronavirus OC43 (PCR) (NotDetected) Coronavirus HKU1 (PCR) (NotDetected) Coronavirus 229E (PCR) (NotDetected) SARS-CoV-2 (PCR) (NotDetected) Coronavirus NL63 (PCR) (NotDetected) Human Metapneumovir PCR (NotDetected) Influenza Type A (PCR) (NotDetected) Influenza Type B (PCR) (NotDetected) M. pneumoniae (PCR) (NotDetected) Parainfluenza 1 (PCR) (NotDetected) Parainfluenza 2 (PCR) (NotDetected) Parainfluenza 3 (PCR) (NotDetected) Parainfluenza 4 (PCR) (NotDetected) RSV (PCR) (NotDetected) Entero/Rhino (PCR) (NotDetected) Blood Type A Positive Antibody Screen NEGATIVE Imaging Data Attestation: I personally reviewed and interpreted this imaging study as follows: Radiologist's Impression: Abdomen/Pelvis CT 09/05/21 22:53 CT SCAN OF THE ABDOMEN AND PELVIS WITH IV CONTRAST CLINICAL HISTORY: Buttock infection. COMPARISON STUDY: Abdominal CT dated 06/14/2021. TECHNIQUE: Following the IV administration of 120 cc of Optiray 320, CT scan of the abdomen and pelvis is performed from the lung bases to the proximal femora. Images are reviewed in the axial, sagittal, and coronal planes. IV contrast was administered without complication. A dose lowering technique was utilized adhering to the principles of ALARA. The examination is degraded by motion artifact, large body habitus, and by streak artifact from the body wall abutting the CT gantry and the left arm which could not be elevated above the abdomen or pelvis. CT DOSE: 2634.94 mGy.cm FINDINGS: Lung bases: The heart is mildly enlarged and without pericardial effusion. The coronary arteries are densely calcified. The lung bases are clear noting dependent scarring/atelectasis. There is a tiny hiatal hernia. Liver: The contrast-enhanced liver is enlarged, measuring 25 cm in length. The liver demonstrates diffusely diminished attenuation consistent with hepatic steatosis. Foci of more focal fatty infiltration are seen adjacent to falciform ligament the gallbladder fossa. There is no intrahepatic biliary ductal dilatation. The hepatic veins and portal veins are patent. Gallbladder: Unremarkable. Spleen: Normal in size and attenuation. Pancreas: Moderately atrophic and grossly unremarkable. 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 Kidneys: The contrast enhanced kidneys demonstrate cortical atrophy and are without hydronephrosis. The kidneys enhance symmetrically. Bilateral nonobstructing renal calculi measure up to 5 mm. Abdominal vasculature: The abdominal aorta is normal in course and caliber noting mild atherosclerotic calcification. The IVC is diminutive with IVC filter are in place. Bowel: There is a left lower quadrant colostomy. No bowel obstruction is seen. The appendix is not visualized. Peritoneum: There are clustered foci of extraluminal gas bubbles seen adjacent to the sigmoid colon on image #354. No free air seen below the diaphragm. There is no abdominal ascites. Lymphadenopathy: There are shotty retroperitoneal lymph nodes. These are not pathologically enlarged by size criteria. Pelvic viscera: The bladder is decompressed around a suprapubic catheter. The bladder wall appears circumferentially thickened is pericystic infiltration. The prostate gland is diminutive and heterogeneous. Skeletal structures soft tissues: The skeletal structures are osteopenic. No lytic or blastic lesions are seen. Chronic deformity and postoperative change is seen involving the left posterior ribs. Postoperative change is noted in the left proximal femur. A large decubitus ulceration is again seen overlying the left ischium. This reaches the underlying cortex, and sclerotic change within the underlying bone suggests chronic left ischial osteomyelitis. There is a large infectious process seen involving the lower sacrum and coccyx as well as the right ischium. This is new as compared to 06/14/2021, with significant soft tissue inflammation, fluid, and deep soft tissue gas. Erosive change within the lower sacrum and coccyx is consistent with osteomyelitis. There is a small fluid collection involving and immediately below the sacrum and coccyx seen on axial image #442. This measures approximately 2.5 x 3.5 x 3 cm and is typical in appearance for abscess. Soft tissue gas at inflammation approaches the right ischial tuberosity. There is cortical erosion of the right ischial tuberosity seen on image #473 which likely represents osteomyelitis. There is evidence of right gluteal myositis. Ill-defined gas and fluid within the right gluteus maximum muscle as seen on image #47. IMPRESSION: 1. There is a large infectious process centered around the lower sacrum and coccyx and also involving the right ischium as detailed above with evidence of multifocal osteomyelitis. This is new from 06/14/2021. 2. There is likely overlying sacral decubitus ulceration with a gas and fluid containing collection involving the lower sacrum and coccyx typical for abscess. 3. There is myositis of the right gluteus pawel muscle with intramuscular gas and fluid. 4. A large decubitus ulceration overlying the left ischium is similar to the 06/14/2021. There is likely chronic left ischial osteomyelitis 5. The bladder is decompressed around a suprapubic catheter. The bladder wall appears thickened and there is pericystic infiltration. Correlate with urin alysis for evidence of cystitis. 6. There are extraluminal bubbles of gas seen adjacent to the sigmoid colon. This is of indeterminant etiology and significance, and may represent atypical pneumatosis. This could also related to the more inferiorly located suprapubic catheter or pelvic infection. Visceral perforation is considered less likely but would be impossible to exclude. Clinical correlation will be essential. 7. Hepatomegaly and hepatic steatosis. 8. Bilateral nephrolithiasis. 9. Additional findings as above. ACT 112: Negative or not required by law. Electronically signed by: José Wise M.D. 09/06/2021 12:56 AM Chest X-Ray 12/31/21 22:53 SINGLE VIEW CHEST CLINICAL HISTORY: Sepsis FINDINGS: An AP, portable, semierect chest radiograph is compared to study dated 06/14/2021 and correlated with chest CT dated 06/18/2021. The examination is degraded by portable technique, apical lordotic positioning, and patient rotation. The heart is mildly enlarged. The pulmonary vasculature is noncongested. There is bibasilar atelectasis. The lungs and pleural spaces are otherwise clear. No pneumothorax is seen. The skeletal structures are osteopenic. Cerclage wires project over the left lower ribs. IMPRESSION: No acute cardiopulmonary abnormality. ACT 112: Negative or not required by law. Electronically signed by: José Wise M.D. 09/05/2021 11:45 PM [facility] Narrative Prior records/ancillary studies reviewed. Triage Nursing notes reviewed. Additional history obtained from EMS. The patient's history was concerning for fever. Differential diagnosis: Etiologies such as infected decubitus ulcer, sepsis, UTI, pneumonia, metabolic, electrolyte abnormalities, cardiac sources, intracerebral event, toxicologic, neurologic, as well as others were entertained. Physical examination: As above. Pertinent findings were extensive decubitus ulcers to the gluteal region. Vital signs reviewed and revealed febrile and tachycardic. ER treatment provided: IV fluid resuscitation with Normal saline solution, 1000 mL bolus. Blood and urine cultures Antibiotics: Cefepime, vancomycin Vitamin K An order was placed for continuous cardiac monitoring. The monitor shows a rate of 60-1 50 with a sinus rhythm. On reassessment the patient vital signs improved. Diagnostics interpretation by me: ECG: Ordered for weakness EKG: Normal sinus,intra-ventricular conduction delay, no acute ST changes,Rate of 114. Impression sinus tachycardia with intraventricular conduction delay interpreted by myself I think arrhythmia is unlikely. EKG shows no interval abnormalities such as QT prolongation or WPW. There are no findings to suggest Brugada syndrome. Cardiac monitoring in the emergency department reveals no tachycardic or bradycardic dysrhythmia. Hypertrophic cardiomyopathy was considered but there are no clear historical elements pointing toward this. EKG is not suggestive. The QRS voltage is not extremely large and there are no suggestive Q waves. The labs revealed leukocytosis on CBC. Therapeutic INR LFTs revealed. Cardiac enzymes were negative. Serum Lactate measurement was 2.9 and repeat was 2.1. Blood and urine cultures are pending. Imaging studies: Imaging as above I did request for the hospital records from [place]. Consultation: A consultation was placed with the hospitalist. The case was discussed and diagnostics were reviewed. The patient was evaluated in the ER for further treatment. Medicine asked that he speak with surgery. I consulted surgery, Dr. Chaudhry and recommends reversal of the INR for surgery in the morning and would like Kcentra. Pharmacy states Dr. Grimes must approve this. I spoke with Dr. Grimes and recommends vitamin K and if in the morning still elevated then give the Kcentra. Exam and history seem consistent with sepsis most likely from the decubitus ulcers and abscess with osteomyelitis He was started on antibiotics. Wound culture was sent. Medicine and surgery were consulted. He will be admitted. Family is agreeable. The chart was completed utilizing [employer] Speech voice recognition software. Grammatical errors, random word insertions, pronoun errors, and incomplete sentences are an occassional consequence of this system due to software limitations, ambient noise, and hardware issues. Any formal questions or concerns about the content, text, or information contained within the body of this dictation should be directly addressed to the physician assistant boiler operator for clarification. Impression & Plan Osteomyelitis, Sepsis, Decubitus ulcer of buttock, Abscess and cellulitis of gluteal region Discharge Plan Visit Data Chief Complaint: Fever Stated Complaint: LETHARGY ED Provider: Will Gardiner ED Midlevel Provider: Juanita Gutierrez Patient Disposition: Admitted As Inpatient Condition: Fair Prescriptions Prescriptions: No Action warfarin 5 mg tablet 5 mg PO 3XWK RF: 0 escitalopram oxalate 20 mg tablet 20 mg PO QAM RF: 0 Novolin 70/30 U-100 Insulin 100 unit/mL (70-30) suspension 56 unit subcut BID RF: 0 atorvastatin 40 mg tablet 40 mg PO HS RF: 0 allopurinol 100 mg Tablet 100 mg PO BID RF: 0 ropinirole 1 mg Tablet 1 mg PO QID RF: 0 furosemide 40 mg Tablet 40 mg PO BID RF: 0 gabapentin 800 mg Tablet 800 mg PO BID RF: 0 ferrous gluconate 324 mg (38 mg iron) Tablet 324 mg PO QAM RF: 0 multivitamin Tablet 1 tab PO QAM RF: 0 pantoprazole 40 mg Tablet,Delayed Release (Dr/Ec) 40 mg PO QAM RF: 0 magnesium oxide 400 mg (241.3 mg magnesium) Tablet 400 mg PO BID RF: 0 baclofen 10 mg tablet 10 mg PO QID RF: 0 cyclobenzaprine 10 mg tablet 15 mg PO HS RF: 0 hyoscyamine sulfate 0.125 mg tablet 0.125 mg PO QPM RF: 0 tizanidine 4 mg tablet 4 mg PO BID RF: 0 potassium chloride 10 mEq tablet extended release 10 meq PO BIDM RF: 0 spironolactone [Aldactone] 25 mg tablet 25 mg PO QAM RF: 0 Medical Marijuana See Rx Instructions .ROUTE .COMPLEX RF: 0 methenamine hippurate 1 gram Tablet 1 g PO BID 30 Days Qty: 60 RF: 2 famotidine [Acid Boiler Shop Supervisor (famotidine)] 20 mg Tablet 20 mg PO BID RF: 0 ascorbic acid (vitamin C) [Vitamin C] 500 mg Tablet 250 mg PO TID RF: 0 zinc sulfate 50 mg zinc (220 mg) Capsule 50 mg PO QDL RF: 0 bethanechol chloride 5 mg Tablet 5 mg PO TID RF: 0 Lactobacillus acidoph-L.bulgar [Floranex] 1 million cell Tablet 1 tab PO BID RF: 0 nystatin-triamcinolone 100,000-0.1 unit/g-% Cream 1 applic TOPICAL BID RF: 0 nystatin 100,000 unit/gram Powder 1 applic TOPICAL BID PRN (Reason: Rash) RF: 0 kdcemd-bjle-gj vfkp-tt-uhynjmp 81.6-0.12-10.8 mg Tablet 1 tab PO QPM RF: 0 Novolin R Regular U-100 Insuln 100 unit/mL Solution 1 sliding scale dose SUBCUT USEASDIRECTD RF: 0 H-Aekpul-M3-B12 3-35-2 mg Tablet 1 tab PO BID RF: 0 triamcinolone acetonide 0.1 % Cream 1 applic TOPICAL BID PRN (Reason: Rash) RF: 0 acetaminophen 500 mg Capsule 1,000 mg PO Q6H PRN (Reason: Pain) RF: 0 menthol-zinc oxide [Calmoseptine] 0.44-20.6 % Ointment 1 applic TOPICAL QID PRN (Reason: Rash) RF: 0 warfarin 7.5 mg Tablet 7.5 mg PO 4XWK RF: 0 irbesartan 75 mg tablet 75 mg PO DAILY RF: 0 metformin 1,000 mg tablet 1,000 mg PO BIDM RF: 0 cefdinir 300 mg capsule 300 mg PO BID RF: 0
[2021-09-05 23:16] LABS: Basophils # (auto) 0.01 K/uL (0-0.2); Eosinophils % (auto) 0.4 %; Hematocrit (blood only) 27.1 % (42-52); Hemoglobin 8.4 g/dL (14.0-18.0); Immature Granulocytes # (auto) 0.13 K/uL (0.00-0.02); Immature Granulocytes % (auto) 0.6 %; Lymphocytes # (auto) 2.11 K/uL (1.2-3.4); Lymphocytes % (auto) 9.3 %; Mean Corpuscular Hemoglobin 28.5 pg (25-34); Mean Corpuscular Volume 91.9 fL (80-100); Mean Platelet Volume 8.5 fL (7.4-10.4); Monocytes # (auto) 0.53 K/uL (0.11-0.59); Monocytes % (auto) 2.3 %; Neutrophils # (auto) 19.85 K/uL (1.4-6.5); Neutrophils % (auto) 87.4 %; Platelet Count 420 K/uL (130-400); RDW Coefficient of Variation 18.8 % (11.5-14.5); RDW Standard Deviation 63.3 fL (36.4-46.3); Red Blood Count 2.95 M/uL (4.7-6.1); White Blood Count 22.73 K/uL (4.8-10.8)
[2021-09-05 23:33] LABS: Alanine Aminotransferase 37 (12-78); Aspartate Aminotransferase 23 U/L (15-37); BUN Creatinine Ratio 15.8 (10-20); Blood Urea Nitrogen 19 mg/dl (7-18); Calcium 9.2 mg/dl (8.5-10.1); Carbon Dioxide 36 mmol/L (21-32); Chloride 93 mmol/L (98-107); Est GFR (African American) 73.7 ml/min; Est GFR (Non-African American) 63.6 ml/min; Glucose 206 mg/dl (70-99); Magnesium 1.9 mg/dl (1.8-2.4); Sodium 132 mmol/L (136-145)
[2021-09-05 23:38] LABS: Albumin Globulin Ratio 0.4 (0.9-2); Alkaline Phosphatase 88 U/L (45-117); Bilirubin,Total 0.4 mg/dl (0.2-1); Globulin 5.6 gm/dl (2.5-4.0); Total Protein 7.6 gm/dl (6.4-8.2); Troponin I < 0.015 ng/ml (0-0.045)
[2021-09-05 23:39] LABS: INR 2.2 (0.9-1.1); Partial Thromboplastin Ratio 2.2; Prothrombin Time 21.2 Seconds (9.0-12.0)
--- NOTE | 2021-09-05 23:46 | XRay Report ---
SINGLE VIEW CHEST CLINICAL HISTORY: Sepsis FINDINGS: An AP, portable, semierect chest radiograph is compared to study dated 06/14/2021 and correl ated with chest CT dated 06/18/2021. The examination is degraded by portable technique, apical lordot ic positioning, and patient rotation. The heart is mildly enlarged. The pulmonary vasculature is non congested. There is bibasilar atelectasis. The lungs and pleural spaces are otherwise clear. No pneum othorax is seen. The skeletal structures are osteopenic. Cerclage wires project over the left lower ribs. IMPRESSION: No acute cardiopulmonary abnormality. ACT 112: Negative or not required by law. Electronically signed by: José Wise M.D. 09/05/2021 11:45 PM
[2021-09-05 23:56] LABS: Partial Thromboplastin Time 56.7 Seconds (21.0-31.0)
[2021-09-06] MEDS ORDERED: OPTIRAY 320 125ml IV ONE (00:31)
--- NOTE | 2021-09-06 00:39 | Emergency Department Note ---
ED Visit Note I have personally evaluated this patient examined himand reviewed the pertinent labs and data. I have discussed the case with the physician pharmacy innovation assistant and agree with the plan. Please refer to the PA note This patient was discharged from [place] yesterday. He is a quadriplegic and has a decubitus ulcer. His is at the bedside when I talked to him and examined him and she says he keeps getting septic but is on no antibiotics when he was discharged yesterday. We did attempt to get records from [place] but unfortunately with [place] we could not get a hold of anybody in medical records. He was given IV antibiotics broad-spectrum here his white count is elevated his lactic acid is moderately elevated in the mid twos. He has been normotensive when I examined him he appears comfortable. His said he was confused earlier but she still seems to think he is doing better in that regard now. He definitely needs to be admitted for further IV antibiotics and evaluation and we will consult the hospitalist for this measure. .
[2021-09-06 00:42] LABS: Adenovirus PCR Not Detected (NotDetected); Bordetella parapertussis PCR Not Detected (NotDetected); Bordetella pertussis PCR Not Detected (NotDetected); Chlamydia pneumoniae PCR Not Detected (NotDetected); Coronavirus 229E PCR Not Detected (NotDetected); Coronavirus CoV-2 (COVID19)PCR Not Detected (NotDetected); Coronavirus HKU1 PCR Not Detected (NotDetected); Coronavirus NL63 PCR Not Detected (NotDetected); Coronavirus OC43PCR Not Detected (NotDetected); Human Metapneumovirus PCR Not Detected (NotDetected); Influenza A PCR Not Detected (NotDetected); Influenza B PCR Not Detected (NotDetected); Mycoplasma pneumoniae PCR Not Detected (NotDetected); Parainfluenza Virus 1 PCR Not Detected (NotDetected); Parainfluenza Virus 2 PCR Not Detected (NotDetected); Parainfluenza Virus 3 PCR Not Detected (NotDetected); Parainfluenza Virus 4 PCR Not Detected (NotDetected); Respiratory Syncytial VirusPCR Not Detected (NotDetected); Rhinovirus/Enterovirus PCR Not Detected (NotDetected)
[2021-09-06] MEDS ORDERED: LACTATED RINGER'S 1,000 ML IV STA ×2 (00:45→04:35)
[2021-09-06 00:49] LABS: Appearance Urine Cloudy (Clear); Bacteria Urine Automated Negative (Negative); Bilirubin Urine Negative (Negative); Blood Urine Negative (Negative); Color Urine Yellow; Epithelial Cell Urine Auto >30 /lpf (0-5); Glucose Urine UA Negative (Negative); Ketones Urine Trace (Negative); Leukocyte Esterase Urine 3+ (Negative); Nitrite Urine Negative (Negative); Protein Urine Trace (Negative); RBC Urine Automated 0-4 /hpf (0-4); Specific Gravity Urine 1.017 (1.000-1.030); Urobilinogen Urine Negative (Negative); WBC Urine Automated >30 /hpf (0-5)
--- NOTE | 2021-09-06 00:57 | CT Scan Report ---
CT SCAN OF THE ABDOMEN AND PELVIS WITH IV CONTRAST CLINICAL HISTORY: Buttock infection. COMPARISON STUDY: Abdominal CT dated 06/14/2021. TECHNIQUE: Following the IV administration of 120 cc of Optiray 320, CT scan of the abdomen and pelv is is performed from the lung bases to the proximal femora. Images are reviewed in the axial, sagitta l, and coronal planes. IV contrast was administered without complication. A dose lowering technique w as utilized adhering to the principles of ALARA. The examination is degraded by motion artifact, larg e body habitus, and by streak artifact from the body wall abutting the CT gantry and the left arm whi ch could not be elevated above the abdomen or pelvis. CT DOSE: 2634.94 mGy.cm FINDINGS: Lung bases: The heart is mildly enlarged and without pericardial effusion. The coronary arteries are densely calcified. The lung bases are clear noting dependent scarring/atelectasis. There is a tiny hi atal hernia. Liver: The contrast-enhanced liver is enlarged, measuring 25 cm in length. The liver demonstrates dif fusely diminished attenuation consistent with hepatic steatosis. Foci of more focal fatty infiltratio n are seen adjacent to falciform ligament the gallbladder fossa. There is no intrahepatic biliary estevan brandi dilatation. The hepatic veins and portal veins are patent. Gallbladder: Unremarkable. Spleen: Normal in size and attenuation. Pancreas: Moderately atrophic and grossly unremarkable. 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 Kidneys: The contrast enhanced kidneys demonstrate cortical atrophy and are without hydronephrosis. T he kidneys enhance symmetrically. Bilateral nonobstructing renal calculi measure up to 5 mm. Abdominal vasculature: The abdominal aorta is normal in course and caliber noting mild atheroscleroti c calcification. The IVC is diminutive with IVC filter are in place. Bowel: There is a left lower quadrant colostomy. No bowel obstruction is seen. The appendix is not v isualized. Peritoneum: There are clustered foci of extraluminal gas bubbles seen adjacent to the sigmoid colon o n image #354. No free air seen below the diaphragm. There is no abdominal ascites. Lymphadenopathy: There are shotty retroperitoneal lymph nodes. These are not pathologically enlarged by size criteria. Pelvic viscera: The bladder is decompressed around a suprapubic catheter. The bladder wall appears ci rcumferentially thickened is pericystic infiltration. The prostate gland is diminutive and heterogene ous. Skeletal structures soft tissues: The skeletal structures are osteopenic. No lytic or blastic lesions are seen. Chronic deformity and postoperative change is seen involving the left posterior ribs. Post operative change is noted in the left proximal femur. A large decubitus ulceration is again seen over lying the left ischium. This reaches the underlying cortex, and sclerotic change within the underlyin g bone suggests chronic left ischial osteomyelitis. There is a large infectious process seen involvin g the lower sacrum and coccyx as well as the right ischium. This is new as compared to 06/14/2021, wit h significant soft tissue inflammation, fluid, and deep soft tissue gas. Erosive change within the lo wer sacrum and coccyx is consistent with osteomyelitis. There is a small fluid collection involving a nd immediately below the sacrum and coccyx seen on axial image #442. This measures approximately 2.5 x 3.5 x 3 cm and is typical in appearance for abscess. Soft tissue gas at inflammation approaches the right ischial tuberosity. There is cortical erosion of the right ischial tuberosity seen on image #4 73 which likely represents osteomyelitis. There is evidence of right gluteal myositis. Ill-defined ga s and fluid within the right gluteus maximum muscle as seen on image #47. IMPRESSION: 1. There is a large infectious process centered around the lower sacrum and coccyx and also involving the right ischium as detailed above with evidence of multifocal osteomyelitis. This is new from 06/14. 2. There is likely overlying sacral decubitus ulceration with a gas and fluid containing collection i nvolving the lower sacrum and coccyx typical for abscess. 3. There is myositis of the right gluteus pawel muscle with intramuscular gas and fluid. 4. A large decubitus ulceration overlying the left ischium is similar to the 06/14/2021. There is like ly chronic left ischial osteomyelitis 5. The bladder is decompressed around a suprapubic catheter. The bladder wall appears thickened and t here is pericystic infiltration. Correlate with urinalysis for evidence of cystitis. 6. There are extraluminal bubbles of gas seen adjacent to the sigmoid colon. This is of indeterminant etiology and significance, and may represent atypical pneumatosis. This could also related to the mo re inferiorly located suprapubic catheter or pelvic infection. Visceral perforation is considered les s likely but would be impossible to exclude. Clinical correlation will be essential. 7. Hepatomegaly and hepatic steatosis. 8. Bilateral nephrolithiasis. 9. Additional findings as above. ACT 112: Negative or not required by law. Electronically signed by: José Wise M.D. 09/06/2021 12:56 AM
[2021-09-06] MEDS ORDERED: metroNIDAZOLE 500 MG/100 ML BAG IV STA (01:04)
[2021-09-06] MEDS ORDERED: PROTHROMBIN COMP CONC- KCENTRA 2,500 UNITS in SYRINGE 0 ML IV STA (01:34)
[2021-09-06] MEDS ORDERED: DC ALL ANTICOAGULANTS ONE (01:34)
--- NOTE | 2021-09-06 01:46 | History & Physical Report ---
Date of Service September 06, 2021 Assessment & Plan (1) Severe sepsis: Plan: SIRS plus lactic acidosis Secondary to infected sacral decubitus wounds with underlying abscess/osteomyelitis MDR Pseudomonas aeruginosa and Enterococcus faecalis on recent wound CS hx recurrent infections as per Recent debridement at [facility] Rule out recurrent C. difficile as additional source of sepsis. 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 confinements at baseline Medical telemetry CS, Daptomycin and Meropenem IVF, follow lactic acid, hold home diuretics for now until patient euvolemic Stool C. difficile Flagyl 1 dose for now for possible C. difficile given sepsis criteria; render appropriate treatment for recurrent C. difficile if C. difficile test positive Surgery consult Re: Sacral abscess/osteomyelitis (ER provider already in touch with Dr. Chaudhry who recommends reversal of anticoagulation in preparation for urgent OR in a.m.) 2 units FFP in addition to vitamin K administered at the ER to facilitate rapid reversal of anticoagulation ID consult at some point during confinement Basal insulin adjusted for n.p.o. status, ISS BG goal 1 10-1 40; carb count coverage once diet advanced DVT prophylaxis. SCDs if INR less than 2 while Coumadin on hold IV Heparin/Coumadin bridge Rx once bleeding risk is deemed minimal/negligible as per Surgery postop eval Full code Patient's requesting updates providers. Ms. Rody Rodriguez, contact #[phone]. Total critical care time was 45 minutes. Text document was generated using [employer] voice recognition software. It may contain grammatical or spelling errors. Kindly contact undersigned for clarification of any documentation item in question. History of Present Illness Chief Complaint: Worsening buttock wounds Primary Care Provider: Wilder Stanford MD History obtained from patient, , and records. 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 dif, chronic sacral decubitus wounds status post recent debridement. Last confinement at [facility] June 2021 for syncope. Patient confined at [facility] from August 24-2020 for sacral decubitus ulcer status post debridement. Wound CS grew MDR Pseudomonas aeruginosa and Enterococcus faecalis. Debridement was not deep enough as per 's conversation with surgeon due to elevated INR from Coumadin at time of surgery. Patient had concerns about draining wounds with intermittent bleeding at time of discharge from [facility] 2 days ago. Patient noted to have low-grade fever, lethargy, poor appetite at home yesterda y. Purulent drainage from sacral wounds soaking dressing as per . Patient with loose stools as per . Patient denies headache, chest pain, S OB, abdominal pain. Patient noted to be hypotensive upon EMS arrival at patient's home. Patient given Vancomycin and Cefepime; vitamin K administered at the ER. MEDICAL HISTORY: As above. SURGICAL HISTORY: Kidney stone procedures, suprapubic catheter placement, neck surgery, IVC filter placement, ostomy//bowel surgery, vascular procedure, wound debridement FAMILY HISTORY: DM, prostate cancer PERSONAL SOCIAL HISTORY: Nonsmoker. No chronic intake of alcoholic beverages. On disability. Allergies Allergy/AdvReac Type Severity Reaction Status Date / Time codeine Allergy Severe THROAT Verified 09/05/21 23:32 SWELLS latex Allergy Intermediate welts Verified 09/05/21 23:32 piperacillin Allergy Intermediate RASH Verified 09/05/21 23:32 Sulfa (Sulfonamide Allergy Intermediate HIVES Verified 09/05/21 23:32 Antibiotics) tazobactam Allergy Intermediate RASH Verified 09/05/21 23:32 aztreonam Allergy Unknown unknown Verified 09/05/21 23:32 metoclopramide [From Reglan] AdvReac Mild lethargy Verified 09/05/21 23:32 Home Medications Medication Instructions Recorded Confirmed Type allopurinol 100 mg tablet 100 mg PO BID 05/07/18 09/05/21 History ferrous gluconate 324 mg (38 mg 324 mg PO QAM 05/07/18 09/05/21 History iron) tablet furosemide 40 mg tablet 40 mg PO BID 05/07/18 09/05/21 History gabapentin 800 mg tablet 800 mg PO BID 05/07/18 09/05/21 History magnesium oxide 400 mg (241.3 mg 400 mg PO BID 05/07/18 09/05/21 History magnesium) tablet multivitamin 1 tab PO QAM 05/07/18 09/05/21 History pantoprazole 40 mg tablet,delayed 40 mg PO QAM 05/07/18 09/05/21 History release ropinirole 1 mg tablet 1 mg PO QID 05/07/18 09/05/21 History escitalopram oxalate 20 mg tablet 20 mg PO QAM tab 08/21/19 09/05/21 History insulin human U-100 NPH-regulr 56 unit SUBCUT BID 08/21/19 09/05/21 History 70-30 mix 100 unit/mL subcutaneous susp (Novolin 70/30 U-100 Insulin) warfarin 5 mg tablet 5 mg PO 3XWK tab 08/21/19 09/05/21 History atorvastatin 40 mg tablet 40 mg PO HS 08/24/19 09/05/21 History baclofen 10 mg tablet 10 mg PO QID 09/22/19 09/05/21 History cyclobenzaprine 10 mg tablet 15 mg PO HS 03/01/20 09/05/21 History hyoscyamine sulfate 0.125 mg tablet 0.125 mg PO QPM 03/01/20 09/05/21 History potassium chloride 10 mEq 10 meq PO BIDM 03/01/20 09/05/21 History tablet,extended release spironolactone 25 mg tablet 25 mg PO QAM 03/01/20 09/05/21 History (Aldactone) tizanidine 4 mg tablet 4 mg PO BID 03/01/20 09/05/21 History Medical Marijuana See Rx Instructions .ROUTE .COMPLEX 03/26/20 09/05/21 History methenamine hippurate 1 gram tablet 1 g PO BID 30 Days #60 tab 04/02/20 09/05/21 Rx ascorbic acid (vitamin C) 500 mg 250 mg PO TID 12/03/20 09/05/21 History tablet (Vitamin C) famotidine 20 mg tablet (Acid 20 mg PO BID 12/03/20 09/05/21 History Chief Security And Safety Officer (famotidine)) zinc sulfate 50 mg zinc (220 mg) 50 mg PO QDL 12/03/20 09/05/21 History capsule Lactobacillus acidoph-L.bulgaricus 1 tab PO BID 01/03/21 09/05/21 History 1 million cell tablet (Floranex) acetaminophen 500 mg capsule 1,000 mg PO Q6H PRN 01/03/21 09/05/21 History bethanechol chloride 5 mg tablet 5 mg PO TID 01/03/21 09/05/21 History insulin regular human 100 unit/mL 1 sliding scale dose SUBCUT 01/03/21 09/05/21 History injection solution (Novolin R USEASDIRECTD Regular U-100 Insulin) mecobalamin-levomefolate 1 tab PO BID 01/03/21 09/05/21 History calcium-pyridoxal phos 3 mg-35 mg-2 mg tablet ([id number]) menthol 0.44 %-zinc oxide 20.6 % 1 applic TOPICAL QID PRN 01/03/21 09/05/21 History topical ointment (Calmoseptine) methenamin 81.6 mg-hyoscyam 0.12 1 tab PO QPM 01/03/21 09/05/21 History mg-methblue 10.8 cc-bf-qpeucxi tablet nystatin 100,000 unit/gram topical 1 applic TOPICAL BID PRN 01/03/21 09/05/21 History powder nystatin-triamcinolone 100,000 1 applic TOPICAL BID 01/03/21 09/05/21 History unit/g-0.1 % topical cream triamcinolone acetonide 0.1 % 1 applic TOPICAL BID PRN 01/03/21 09/05/21 History topical cream irbesartan 75 mg tablet 75 mg PO DAILY 06/02/21 09/05/21 History warfarin 7.5 mg tablet 7.5 mg PO 4XWK 06/02/21 09/05/21 History metformin 1,000 mg tablet 1,000 mg PO BIDM 06/14/21 09/05/21 History cefdinir 300 mg capsule 300 mg PO BID 06/23/21 09/05/21 History Past Med/Surg History Medical History Asymptomatic bacteriuria Clostridium difficile infection (Unknown) CVA (cerebral vascular accident) DM type 2 (diabetes mellitus, type 2) Dyslipidemia Dysphagia Fever History of blood clots History of DVT (deep vein thrombosis) Hypertension Hypotension Ileus Kidney disease Leukocytosis Major depressive disorder, recurrent Obesity Occluded PICC line Positive urine culture Quadriplegia BRAIN INJURY 11 YRS AGO Seizure SIRS (systemic inflammatory response syndrome) Sleep apnea (Unknown) OXYGEN 2L/MIN NC HS Syncope 57 year old with know quadriplegia and new onset syncope with change in position UTI (urinary tract infection) RECENT [facility] ADMISION-D/C 12/06/20 Surgical History History of colonoscopy 2010 History of open reduction and internal fixation (ORIF) procedure LEFT FEMUR Insertion of inferior vena caval filter (Unknown) Lithotripsy (Unknown) "laser lithotripsy left ureteral stone 03/17/11 " S/P knee surgery S/P tonsillectomy Suprapubic cystostomy (Unknown) IN PLACE Family History Mother No pertinent family history Family history of diabetes mellitus Father Family hx of colon cancer Social History Smoking Status: Never smoker Second Hand Exposure: No; Hx Alcohol Use: No Hx Substance Use: Yes Last Used Substance: Days (ago) Substance Use Type Other:: medical card at home with pt . Preferred Language: Vietnamese Communication Ability: Effective Visual Impairment: No Limitations Manager Personnel Selection Required: No Beliefs That Will Affect Care: None marital status: Current Living Situation: Spouse Current Living Situation Comment: lives at home with and 2 dogs. No kids at home. current occupational status: disabled Feels Safe at Home: Yes Physical Activity Frequency Comment: QUADRAPLEGIA C4-5-ABLE TO MOVE ARMS, HANDS Assistive Devices: Oxygen - at Night Review of Systems Review of Systems: As per HPI, all 10 systems reviewed, all other ROS negative Physical Exam Physical Exam: GENERAL: Comfortable, pleasant, morbidly obese, no respiratory distress SKIN: Pallor, warm HEENT: Pale palpebral conjunctivae, no ptosis, dry buccal mucosa NECK : Supple, short neck, no tenderness CHEST : Decreased breath sounds, no tenderness HEART : Tachycardic, no obvious murmurs ABDOMEN: distention, nontender, ostomy noted BACK : Extensive decubitus wounds with drainage gluteal region as per ER provider documentation EXTREMITIES : Minimal LE swelling left greater than the right, no LE tenderness, no other conspicuous deformities noted NEUROLOGIC : Coherent, no facial asymmetry, quadriplegia Results & Data Results & Data ([facility] [place]) Vital Signs (Past 12 Hours) Vital Signs Temp Pulse Pulse Resp BP BP Pulse Ox 09/06/21 00:38 106 H 23 122/54 L 96 09/05/21 23:10 93 09/05/21 22:35 38.6 C H 120 H 22 134/70 90 Laboratory Results Laboratory Results WBC 22.73 K/uL (4.8-10.8) H 09/05/21 23:05 RBC 2.95 M/uL (4.7-6.1) L 09/05/21 23:05 Hgb 8.4 g/dL (14.0-18.0) L 09/05/21 23:05 Hct 27.1 % (42-52) L 09/05/21 23:05 MCV 91.9 fL (80-100) 09/05/21 23:05 MCH 28.5 pg (25-34) 09/05/21 23:05 MCHC 31.0 g/dL (32-36) L 09/05/21 23:05 RDW Std Deviation 63.3 fL (36.4-46.3) H 09/05/21 23:05 RDW Coeff of Yoseph 18.8 % (11.5-14.5) H 09/05/21 23:05 Plt Count 420 K/uL (130-400) H 09/05/21 23:05 MPV 8.5 fL (7.4-10.4) 09/05/21 23:05 Immature Gran % (Auto) 0.6 % 09/05/21 23:05 Neut % (Auto) 87.4 % 09/05/21 23:05 Lymph % (Auto) 9.3 % 09/05/21 23:05 Noble % (Auto) 2.3 % 09/05/21 23:05 Eos % (Auto) 0.4 % 09/05/21 23:05 Baso % (Auto) 0.0 % 09/05/21 23:05 Neut # (Auto) 19.85 K/uL (1.4-6.5) H 09/05/21 23:05 Lymph # (Auto) 2.11 K/uL (1.2-3.4) 09/05/21 23:05 Noble # (Auto) 0.53 K/uL (0.11-0.59) 09/05/21 23:05 Eos # (Auto) 0.10 K/uL (0-0.5) 09/05/21 23:05 Baso # (Auto) 0.01 K/uL (0-0.2) 09/05/21 23:05 Immature Gran # (Auto) 0.13 K/uL (0.00-0.02) H 09/05/21 23:05 PT 21.2 Seconds (9.0-12.0) H 09/05/21 23:05 INR 2.2 (0.9-1.1) H 09/05/21 23:05 APTT 56.7 Seconds (21.0-31.0) H* 09/05/21 23:05 PTT Ratio 2.2 09/05/21 23:05 Sodium 132 mmol/L (136-145) L 09/05/21 23:05 Potassium 4.0 mmol/L (3.5-5.1) 09/05/21 23:05 Chloride 93 mmol/L (98-107) L 09/05/21 23:05 Carbon Dioxide 36 mmol/L (21-32) H 09/05/21 23:05 Anion Gap 3.0 (3-11) 09/05/21 23:05 BUN 19 mg/dl (7-18) H 09/05/21 23:05 Creatinine 1.22 mg/dl (0.6-1.4) 09/05/21 23:05 Est Cr Clr Drug Dosing 96.0 ml/min 09/05/21 23:05 Est GFR ( Amer) 73.7 ml/min 09/05/21 23:05 Est GFR (Non-Af Amer) 63.6 ml/min 09/05/21 23:05 BUN/Creatinine Ratio 15.8 (10-20) 09/05/21 23:05 Glucose 206 mg/dl (70-99) H 09/05/21 23:05 Lactate 2.9 mmol/L (0.4-2.0) H* 09/05/21 23:05 Calcium 9.2 mg/dl (8.5-10.1) 09/05/21 23:05 Magnesium 1.9 mg/dl (1.8-2.4) 09/05/21 23:05 Total Bilirubin 0.4 mg/dl (0.2-1) 09/05/21 23:05 AST 23 U/L (15-37) 09/05/21 23:05 ALT 37 (12-78) 09/05/21 23:05 Alkaline Phosphatase 88 U/L (45-117) 09/05/21 23:05 Troponin I < 0.015 ng/ml (0-0.045) 09/05/21 23:05 Total Protein 7.6 gm/dl (6.4-8.2) 09/05/21 23:05 Albumin 2.0 gm/dl (3.4-5.0) L 09/05/21 23:05 Globulin 5.6 gm/dl (2.5-4.0) H 09/05/21 23:05 Albumin/Globulin Ratio 0.4 (0.9-2) L 09/05/21 23:05 Procalcitonin 0.79 ng/ml (0-0.5) H 09/05/21 23:05 Urine Color Yellow 09/06/21 00:40 Urine Appearance Cloudy (Clear) A 09/06/21 00:40 Urine pH 5.0 (4.5-7.5) 09/06/21 00:40 Ur Specific [place] 1.017 (1.000-1.030) 09/06/21 00:40 Urine Protein Trace (Negative) H 09/06/21 00:40 Urine Glucose (UA) Negative (Negative) 09/06/21 00:40 Urine Ketones Trace (Negative) H 09/06/21 00:40 Urine Blood Negative (Negative) 09/06/21 00:40 Urine Nitrite Negative (Negative) 09/06/21 00:40 Urine Bilirubin Negative (Negative) 09/06/21 00:40 Urine Urobilinogen Negative (Negative) 09/06/21 00:40 Ur Leukocyte Esterase 3+ (Negative) H 09/06/21 00:40 Urine WBC (Auto) >30 /hpf (0-5) H 09/06/21 00:40 Urine RBC (Auto) 0-4 /hpf (0-4) 09/06/21 00:40 U Hyaline Cast (Auto) 1-5 /lpf (0-5) 09/06/21 00:40 U Epithel Cells (Auto) >30 /lpf (0-5) H 09/06/21 00:40 Urine Bacteria (Auto) Negative (Negative) 09/06/21 00:40 Granular Casts 1-5 /lpf (0) H 09/06/21 00:40 Urine Yeast Present (None Prsent) A 09/06/21 00:40 Stl C. diff Tox B Gene Negative Cdiff Gene (Neg) 09/05/21 Unknown Adenovirus (PCR) Not Detected (NotDetected) 09/05/21 23:47 B. pertussis DNA (PCR) Not Detected (NotDetected) 09/05/21 23:47 B.parapertussis DNA PCR Not Detected (NotDetected) 09/05/21 23:47 C. pneumoniae DNA (PCR) Not Detected (NotDetected) 09/05/21 23:47 Coronavirus OC43 (PCR) Not Detected (NotDetected) 09/05/21 23:47 Coronavirus HKU1 (PCR) Not Detected (NotDetected) 09/05/21 23:47 Coronavirus 229E (PCR) Not Detected (NotDetected) 09/05/21 23:47 SARS-CoV-2 (PCR) Not Detected (NotDetected) 09/05/21 23:47 Coronavirus NL63 (PCR) Not Detected (NotDetected) 09/05/21 23:47 Human Metapneumovir PCR Not Detected (NotDetected) 09/05/21 23:47 Influenza Type A (PCR) Not Detected (NotDetected) 09/05/21 23:47 Influenza Type B (PCR) Not Detected (NotDetected) 09/05/21 23:47 M. pneumoniae (PCR) Not Detected (NotDetected) 09/05/21 23:47 Parainfluenza 1 (PCR) Not Detected (NotDetected) 09/05/21 23:47 Parainfluenza 2 (PCR) Not Detected (NotDetected) 09/05/21 23:47 Parainfluenza 3 (PCR) Not Detected (NotDetected) 09/05/21 23:47 Parainfluenza 4 (PCR) Not Detected (NotDetected) 09/05/21 23:47 RSV (PCR) Not Detected (NotDetected) 09/05/21 23:47 Entero/Rhino (PCR) Not Detected (NotDetected) 09/05/21 23:47 Impressions Abdomen/Pelvis CT 09/05/21 22:53 CT SCAN OF THE ABDOMEN AND PELVIS WITH IV CONTRAST CLINICAL HISTORY: Buttock infection. COMPARISON STUDY: Abdominal CT dated 06/14/2021. TECHNIQUE: Following the IV administration of 120 cc of Optiray 320, CT scan of the abdomen and pelvis is performed from the lung bases to the proximal femora. Images are reviewed in the axial, sagittal, and coronal planes. IV contrast was administered without complication. A dose lowering technique was utilized adhering to the principles of ALARA. The examination is degraded by motion artifact, large body habitus, and by streak artifact from the body wall abutting the CT gantry and the left arm which could not be elevated above the abdomen or pelvis. CT DOSE: 2634.94 mGy.cm FINDINGS: Lung bases: The heart is mildly enlarged and without pericardial effusion. The coronary arteries are densely calcified. The lung bases are clear noting dependent scarring/atelectasis. There is a tiny hiatal hernia. Liver: The contrast-enhanced liver is enlarged, measuring 25 cm in length. The liver demonstrates diffusely diminished attenuation consistent with hepatic steatosis. Foci of more focal fatty infiltration are seen adjacent to falciform ligament the gallbladder fossa. There is no intrahepatic biliary ductal dilatation. The hepatic veins and portal veins are patent. Gallbladder: Unremarkable. Spleen: Normal in size and attenuation. Pancreas: Moderately atrophic and grossly unremarkable. 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 Kidneys: The contrast enhanced kidneys demonstrate cortical atrophy and are without hydronephrosis. The kidneys enhance symmetrically. Bilateral nonobstructing renal calculi measure up to 5 mm. Abdominal vasculature: The abdominal aorta is normal in course and caliber noting mild atherosclerotic calcification. The IVC is diminutive with IVC filter are in place. Bowel: There is a left lower quadrant colostomy. No bowel obstruction is seen. The appendix is not visualized. Peritoneum: There are clustered foci of extraluminal gas bubbles seen adjacent to the sigmoid colon on image #354. No free air seen below the diaphragm. There is no abdominal ascites. Lymphadenopathy: There are shotty retroperitoneal lymph nodes. These are not pathologically enlarged by size criteria. Pelvic viscera: The bladder is decompressed around a suprapubic catheter. The bladder wall appears circumferentially thickened is pericystic infiltration. The prostate gland is diminutive and heterogeneous. Skeletal structures soft tissues: The skeletal structures are osteopenic. No lytic or blastic lesions are seen. Chronic deformity and postoperative change is seen involving the left posterior ribs. Postoperative change is noted in the left proximal femur. A large decubitus ulceration is again seen overlying the left ischium. This reaches the underlying cortex, and sclerotic change within the underlying bone suggests chronic left ischial osteomyelitis. There is a large infectious process seen involving the lower sacrum and coccyx as well as the right ischium. This is new as compared to 06/14/2021, with significant soft tissue inflammation, fluid, and deep soft tissue gas. Erosive change within the lower sacrum and coccyx is consistent with osteomyelitis. There is a small fluid collection involving and immediately below the sacrum and coccyx seen on axial image #442. This measures approximately 2.5 x 3.5 x 3 cm and is typical in appearance for abscess. Soft tissue gas at inflammation approaches the right ischial tuberosity. There is cortical erosion of the right ischial tuberosity seen on image #473 which likely represents osteomyelitis. There is evidence of right gluteal myositis. Ill-defined gas and fluid within the right gluteus maxi mum muscle as seen on image #47. IMPRESSION: 1. There is a large infectious process centered around the lower sacrum and coccyx and also involving the right ischium as detailed above with evidence of multifocal osteomyelitis. This is new from 06/14/2021. 2. There is likely overlying sacral decubitus ulceration with a gas and fluid containing collection involving the lower sacrum and coccyx typical for abscess. 3. There is myositis of the right gluteus pawel muscle with intramuscular gas and fluid. 4. A large decubitus ulceration overlying the left ischium is similar to the 06/14/2021. There is likely chronic left ischial osteomyelitis 5. The bladder is decompressed around a suprapubic catheter. The bladder wall appears thickened and there is pericystic infiltration. Correlate with urinalysis for evidence of cystitis. 6. There are extraluminal bubbles of gas seen adjacent to the sigmoid colon. This is of indeterminant etiology and significance, and may represent atypical pneumatosis. This could also related to the more inferiorly located suprapubic catheter or pelvic infection. Visceral perforation is considered less likely but would be impossible to exclude. Clinical correlation will be essential. 7. Hepatomegaly and hepatic steatosis. 8. Bilateral nephrolithiasis. 9. Additional findings as above. ACT 112: Negative or not required by law. Electronically signed by: José Wise M.D. 09/06/2021 12:56 AM Chest X-Ray 09/05/21 22:53 SINGLE VIEW CHEST CLINICAL HISTORY: Sepsis FINDINGS: An AP, portable, semierect chest radiograph is compared to study dated 06/14/2021 and correlated with chest CT dated 06/18/2021. The examination is degraded by portable technique, apical lordotic positioning, and patient rota tion. The heart is mildly enlarged. The pulmonary vasculature is noncongested. There is bibasilar atelectasis. The lungs and pleural spaces are otherwise clear. No pneumothorax is seen. The skeletal structures are osteopenic. Cerclage wires project over the left lower ribs. IMPRESSION: No acute cardiopulmonary abnormality. ACT 112: Negative or not required by law. Electronically signed by: José Wise M.D. 09/05/2021 11:45 PM Diagnostic Findings EKG as per my interpretation: Rate 115, sinus tachycardia, normal axis, incom plete RBBB, T wave abnormalities inferior leads
[2021-09-06] MEDS ORDERED: MAGNESIUM SULFATE / D5W 1 GM/100 ML BAG IV ONE (01:52)
[2021-09-06] MEDS ORDERED: PHYTONADIONE 10 MG in SODIUM CHLORIDE 0.9% 50 ML IV ONE (01:58)
[2021-09-06 02:20] LABS: Creatine Kinase 37 U/L (39-308)
[2021-09-06] MEDS ORDERED: GLUCAGON FOR INJ 1 MG VIAL SQ PRN (04:14)
[2021-09-06] MEDS ORDERED: DEXTROSE 50% 50 ML SYRINGE IV PRN (04:14)
[2021-09-06] MEDS ORDERED: GLUCOSE 10 TABS/TUBE PO PRN (04:14)
[2021-09-06] MEDS ORDERED: KETOROLAC TROMETHAMINE 15 MG/ML VIAL IV PRN (04:14)
[2021-09-06] MEDS ORDERED: CARBOHYDRATES FOR HYPOGLYCEMIA PO PRN (04:14)
[2021-09-06] MEDS ORDERED: PROMETHAZINE HCL 12.5 MG in SODIUM CHLORIDE 0.9% 50 ML IV PRN (04:14)
[2021-09-06] MEDS ORDERED: SODIUM CHLORIDE 0.9% 250 ML IV PRN ×3 (04:14→15:39)
[2021-09-06] MEDS ORDERED: GLUCOSE 40% GEL 15 GM TUBE PO PRN (04:14)
[2021-09-06] MEDS ORDERED: ACETAMINOPHEN 325 MG TAB PO STA (04:36)
[2021-09-06] MEDS ORDERED: MEDICAL MARIJUANA INH PRN (04:45)
[2021-09-06] MEDS ORDERED: MEROPENEM CONSULT ACTIVE PRN ×2 (05:05)
[2021-09-06] MEDS: INSULIN ASPART PER UNIT SC SCH ×3 (05:23→18:50)
[2021-09-06] MEDS: DAPTOmycin 650 MG in SYRINGE 0 ML IV SCH (07:05)
[2021-09-06] MEDS: MEROPENEM 500 MG in SYRINGE 0 ML IV SCH ×3 (07:05→19:40)
[2021-09-06] MEDS ORDERED: CEFEPIME 2,000 MG in SYRINGE 0 ML IV SCH (08:00)
[2021-09-06 08:28] LABS: Hematocrit (blood only) 25.8 % (42-52); Mean Corpuscular Hemoglobin 28.2 pg (25-34); Mean Corpuscular Volume 90.8 fL (80-100); Mean Platelet Volume 8.6 fL (7.4-10.4); Platelet Count 358 K/uL (130-400); RDW Coefficient of Variation 18.8 % (11.5-14.5); RDW Standard Deviation 62.4 fL (36.4-46.3); Red Blood Count 2.84 M/uL (4.7-6.1); White Blood Count 17.23 K/uL (4.8-10.8)
[2021-09-06] MEDS: ESCITALOPRAM OXALATE 20 MG TAB PO SCH (08:32)
[2021-09-06] MEDS: FERROUS GLUCONATE 324 MG TAB PO SCH (08:32)
[2021-09-06] MEDS: FAMOTIDINE 20 MG TAB PO SCH ×2 (08:32→20:45)
[2021-09-06] MEDS: BACLOFEN 10 MG TAB PO SCH ×4 (08:32→20:45)
[2021-09-06] MEDS: allopurinoL 100 MG TAB PO SCH ×2 (08:32→20:45)
[2021-09-06] MEDS: GABAPENTIN 800 MG TAB PO SCH ×2 (08:32→20:44)
[2021-09-06] MEDS: tiZANidine HCL 4 MG TABLET PO SCH ×2 (08:33→20:44)
[2021-09-06] MEDS: MULTIVITAMIN TAB PO SCH (08:33)
[2021-09-06] MEDS: MAGNESIUM OXIDE 400 MG TAB PO SCH ×2 (08:33→20:44)
[2021-09-06] MEDS: PANTOprazole 40 MG TAB PO SCH (08:33)
[2021-09-06] MEDS: ADVANCED PROBIOTIC 1250 MG CAPSULE PO SCH (08:33)
[2021-09-06] MEDS: INSULIN GLARGINE SOLOSTAR 100 UNITS/ML 3 ML PEN SC SCH ×2 (08:33→20:53)
[2021-09-06 08:57] LABS: INR 1.6 (0.9-1.1); Partial Thromboplastin Ratio 1.8; Prothrombin Time 15.4 Seconds (9.0-12.0)
[2021-09-06] MEDS ORDERED: BUPIVACAINE 0.25% 30 ML VIAL ONE (08:57)
[2021-09-06] MEDS ORDERED: EPINEPHrine INJ 1 MG/ML AMP ONE (08:57)
[2021-09-06 08:59] LABS: Partial Thromboplastin Time 46.6 Seconds (21.0-31.0)
[2021-09-06] MEDS ORDERED: IRBESARTAN 75 MG TAB PO SCH (09:00)
[2021-09-06 09:07] LABS: BUN Creatinine Ratio 18.3 (10-20); Calcium 8.8 mg/dl (8.5-10.1); Creatinine Clr Calc Pharmacy 127.3 ml/min; Est GFR (African American) 103.7 ml/min; Est GFR (Non-African American) 89.5 ml/min; Potassium 3.5 mmol/L (3.5-5.1)
[2021-09-06 09:50] LABS: ALC (manual) 2.83 K/uL (1.2-3.4); ANC (manual) 13.82 K/uL (1.4-6.5); Lymphocytes # (manual) 2.83 K/uL (1.2-3.4); Lymphocytes % (manual) 16.4 %; Monocytes # (manual) 0.59 K/uL (0.11-0.59); Monocytes % (manual) 3.4 %; Neutrophils # (manual) 13.82 K/uL (1.4-6.5); Neutrophils % (manual) 80.2 %; Polychromasia 1+; Target Cells 1+
--- NOTE | 2021-09-06 10:29 | Surgery Consultation ---
Date of Consultation September 06, 2021 Assessment & Plan (1) Sacral decubitus ulcer, stage IV: This is a 60y M with PMH of quadriplegia, CKD, DVT on coumadin, IVC filter in place, DM2, ostomy present, morbid obesity, neurogenic bladder, who presents to the [facility] ED on 09/05/21 with fevers and worsening sacral decubitus wounds. In our ER a CT scan was obtained that revealed infected sacral wounds with evidence of osteomyelitis and myositis. WBC 22. Patient's INR 2.2, PTT 56. Our anticoagulation physician has been consulted and he is receiving FFP and vitamin K to reverse his coagulopathy. We will proceed with taking the patient to the OR for debridement of sacral wounds today once anticoagulation has been reversed. IV abx ordered. Keep patient NPO until s/p surgery. Dr. Chaudhry has obtained consent. Supervising Physician Co-Signing Physician Notes I personally saw and evaluated the patient with Ranjana Yadav PA-C and agree with the assessment and plan. 60-year-old male with history of quadriplegia chronic left ischial ulcer and new sacral decubitus ulcer with possible necrotizing fasciitis CT images and results reviewed, consistent with sacral abscess with osteomyelitis and questionable gas in the right gluteal muscle We will plan on operative debridement today Consent obtained risks discussed including bleeding, infection, need for further debridement History of Present Illness Attending Physician: Moisés Lazcano MD History of Present Illness This is a 60y M with PMH of quadriplegia, CKD, DVT on coumadin, IVC filter in place, DM2, ostomy present, morbid obesity, neurogenic bladder, who presents to the [facility] ED on 09/05/21 with fevers and worsening sacral decubitus wounds. Patient states the one has been presents >5 years. He was recently in [place] in August and underwent surgical debridement, but they seem to have been worsening since discharge. In our ER a CT scan was obtained that revealed infected sacral wounds with evidence of osteomyelitis and myositis. Patient denies any nausea/vomiting. He endorses no pain at rest, but he does appreciate some if palpated upon. Allergies Allergy/AdvReac Type Severity Reaction Status Date / Time codeine Allergy Severe THROAT Verified 09/05/21 23:32 SWELLS latex Allergy Intermediate welts Verified 09/05/21 23:32 piperacillin Allergy Intermediate RASH Verified 09/05/21 23:32 Sulfa (Sulfonamide Allergy Intermediate HIVES Verified 09/05/21 23:32 Antibiotics) tazobactam Allergy Intermediate RASH Verified 09/05/21 23:32 aztreonam Allergy Unknown unknown Verified 09/05/21 23:32 metoclopramide [From Reglan] AdvReac Mild lethargy Verified 09/05/21 23:32 Home Medications Medication Instructions Recorded Confirmed Type allopurinol 100 mg tablet 100 mg PO BID 05/07/18 09/05/21 History ferrous gluconate 324 mg (38 mg 324 mg PO QAM 05/07/18 09/05/21 History iron) tablet furosemide 40 mg tablet 40 mg PO BID 05/07/18 09/05/21 History gabapentin 800 mg tablet 800 mg PO BID 05/07/18 09/05/21 History magnesium oxide 400 mg (241.3 mg 400 mg PO BID 05/07/18 09/05/21 History magnesium) tablet multivitamin 1 tab PO QAM 05/07/18 09/05/21 History pantoprazole 40 mg tablet,delayed 40 mg PO QAM 05/07/18 09/05/21 History release ropinirole 1 mg tablet 1 mg PO QID 05/07/18 09/05/21 History escitalopram oxalate 20 mg tablet 20 mg PO QAM tab 08/21/19 09/05/21 History insulin human U-100 NPH-regulr 56 unit SUBCUT BID 08/21/19 09/05/21 History 70-30 mix 100 unit/mL subcutaneous susp (Novolin 70/30 U-100 Insulin) warfarin 5 mg tablet 5 mg PO 3XWK tab 08/21/19 09/05/21 History atorvastatin 40 mg tablet 40 mg PO HS 08/24/19 09/05/21 History baclofen 10 mg tablet 10 mg PO QID 09/22/19 09/05/21 History cyclobenzaprine 10 mg tablet 15 mg PO HS 03/01/20 09/05/21 History hyoscyamine sulfate 0.125 mg tablet 0.125 mg PO QPM 03/01/20 09/05/21 History potassium chloride 10 mEq 10 meq PO BIDM 03/01/20 09/05/21 History tablet,extended release spironolactone 25 mg tablet 25 mg PO QAM 03/01/20 09/05/21 History (Aldactone) tizanidine 4 mg tablet 4 mg PO BID 03/01/20 09/05/21 History Medical Marijuana See Rx Instructions .ROUTE .COMPLEX 03/26/20 09/05/21 History methenamine hippurate 1 gram tablet 1 g PO BID 30 Days #60 tab 04/02/20 09/05/21 Rx ascorbic acid (vitamin C) 500 mg 250 mg PO TID 12/03/20 09/05/21 History tablet (Vitamin C) famotidine 20 mg tablet (Acid 20 mg PO BID 12/03/20 09/05/21 History Advertising Production Manager (famotidine)) zinc sulfate 50 mg zinc (220 mg) 50 mg PO QDL 12/03/20 09/05/21 History capsule Lactobacillus acidoph-L.bulgaricus 1 tab PO BID 01/03/21 09/05/21 History 1 million cell tablet (Floranex) acetaminophen 500 mg capsule 1,000 mg PO Q6H PRN 01/03/21 09/05/21 History bethanechol chloride 5 mg tablet 5 mg PO TID 01/03/21 09/05/21 History insulin regular human 100 unit/mL 1 sliding scale dose SUBCUT 01/03/21 09/05/21 History injection solution (Novolin R USEASDIRECTD Regular U-100 Insulin) mecobalamin-levomefolate 1 tab PO BID 01/03/21 09/05/21 History calcium-pyridoxal phos 3 mg-35 mg-2 mg tablet (U-Dupnya-A8-B12) menthol 0.44 %-zinc oxide 20.6 % 1 applic TOPICAL QID PRN 01/03/21 09/05/21 History topical ointment (Calmoseptine) methenamin 81.6 mg-hyoscyam 0.12 1 tab PO QPM 01/03/21 09/05/21 History mg-methblue 10.8 ef-fd-dxmqjzr tablet nystatin 100,000 unit/gram topical 1 applic TOPICAL BID PRN 01/03/21 09/05/21 History powder nystatin-triamcinolone 100,000 1 applic TOPICAL BID 01/03/21 09/05/21 History unit/g-0.1 % topical cream triamcinolone acetonide 0.1 % 1 applic TOPICAL BID PRN 01/03/21 09/05/21 History topical cream irbesartan 75 mg tablet 75 mg PO DAILY 06/02/21 09/05/21 History warfarin 7.5 mg tablet 7.5 mg PO 4XWK 06/02/21 09/05/21 History metformin 1,000 mg tablet 1,000 mg PO BIDM 06/14/21 09/05/21 History cefdinir 300 mg capsule 300 mg PO BID 06/23/21 09/05/21 History Patient History Medical History Anemia Asymptomatic bacteriuria Clostridium difficile infection (Unknown) CVA (cerebral vascular accident) DM type 2 (diabetes mellitus, type 2) Dyslipidemia Dysphagia Fever History of blood clots History of DVT (deep vein thrombosis) Hypertension Hypotension Ileus Kidney disease Leukocytosis Major depressive disorder, recurrent Obesity Occluded PICC line Positive urine culture Quadriplegia BRAIN INJURY 11 YRS AGO Seizure SIRS (systemic inflammatory response syndrome) Sleep apnea (Unknown) OXYGEN 2L/MIN NC HS Syncope 57 year old with know quadriplegia and new onset syncope with change in position UTI (urinary tract infection) RECENT [facility] ADMISION-D/C 12/06/20 Surgical History History of colonoscopy 2010 History of open reduction and internal fixation (ORIF) procedure LEFT FEMUR Insertion of inferior vena caval filter (Unknown) Lithotripsy (Unknown) "laser lithotripsy left ureteral stone 03/17/11 " S/P knee surgery S/P tonsillectomy Suprapubic cystostomy (Unknown) IN PLACE Family History Mother No pertinent family history Family history of diabetes mellitus Father Family hx of colon cancer Social History Smoking Status: Unknown if ever smoked Second Hand Exposure: No; Do You Dip or Chew Tobacco: No; Tobacco Cessation Education Requested by Patient: No Hx Alcohol Use: No Hx Substance Use: No Preferred Language: Mauritian Communication Ability: Effective Visual Impairment: No Limitations Tv News Director Required: No Beliefs That Will Affect Care: None marital status: Current Living Situation: Spouse Current Living Situation Comment: lives at home with and 2 dogs. No kids at home. current occupational status: disabled Feels Safe at Home: Yes Safety Concerns: Feels Safe At This Time Physical Activity Frequency Comment: QUADRAPLEGIA C4-5-ABLE TO MOVE ARMS, HANDS Assistive Devices: None Review of Systems Constitutional: + fever, + malaise and + weakness Gastrointestinal: no abdominal pain, no nausea and no vomiting sacral decub ulcer, worsening per patient Physical Exam Physical Exam: awake/alert Constitutional: + morbidly obese Gastrointestinal (Abdomen): + sacral decub Results & Data ([facility]) Vital Signs (Past 12 Hours) Vital Signs Temp Pulse Pulse Resp BP BP Pulse Ox 09/06/21 10:13 36.9 C 94 H 20 102/55 L 97 09/06/21 10:12 36.8 C 101 H 18 102/55 L 97 09/06/21 07:30 99 H 16 116/60 99 09/06/21 07:25 37 C 92 H 20 138/76 96 09/06/21 07:20 99 H 15 98 09/06/21 07:10 99 H 13 97 09/06/21 07:00 102 H 15 114/60 98 09/06/21 06:59 36.5 C 100 H 16 121/64 97 09/06/21 06:58 100 H 20 121/64 98 09/06/21 06:50 102 H 17 95 09/06/21 06:40 104 H 20 81 L 09/06/21 06:33 36.4 C L 102 H 20 103/66 93 09/06/21 06:30 102 H 25 H 103/66 99 09/06/21 06:20 102 H 17 98 09/06/21 06:18 36.7 C 105 H 31 H 127/77 97 09/06/21 06:10 103 H 15 90 09/06/21 06:02 37.0 C 104 H 16 115/62 93 09/06/21 06:00 99 H 21 115/62 95 09/06/21 05:50 100 H 20 96 09/06/21 05:44 37.0 C 102 H 21 117/73 97 09/06/21 05:41 100 H 17 117/62 97 09/06/21 05:40 104 H 18 98 09/06/21 05:36 37.1 C 101 H 18 117/62 98 09/06/21 05:30 104 H 18 122/73 98 09/06/21 05:20 100 H 19 96 09/06/21 05:10 101 H 13 99 09/06/21 05:06 36.9 C 102 H 22 127/65 98 09/06/21 05:00 99 H 17 121/60 85 L 09/06/21 04:51 37.1 C 97 H 21 119/69 96 09/06/21 04:50 98 H 18 95 09/06/21 04:40 101 H 20 94 09/06/21 04:38 09/06/21 04:30 37.0 C 102 H 21 100/66 93 09/06/21 04:26 102 H 18 95/63 L 95/63 L 92 09/06/21 04:20 103 H 15 97 09/06/21 04:14 99 H 16 120/64 96 09/06/21 04:13 98 H 19 120/64 94 09/06/21 04:10 99 H 23 86 L 09/06/21 04:00 99 H 98 H 19 114/66 114/66 96 09/06/21 03:57 100 H 22 112/65 93 09/06/21 03:50 18 96 09/06/21 03:49 123/66 09/06/21 03:28 92 H 16 100/62 09/06/21 03:26 94 09/06/21 00:38 106 H 23 122/54 L 96 09/05/21 23:10 93 09/05/21 22:35 38.6 C H 120 H 22 134/70 90 Pulse Ox 09/06/21 10:13 09/06/21 10:12 09/06/21 07:30 09/06/21 07:25 09/06/21 07:20 09/06/21 07:10 09/06/21 07:00 09/06/21 06:59 09/06/21 06:58 09/06/21 06:50 09/06/21 06:40 09/06/21 06:33 09/06/21 06:30 09/06/21 06:20 09/06/21 06:18 09/06/21 06:10 09/06/21 06:02 09/06/21 06:00 09/06/21 05:50 09/06/21 05:44 09/06/21 05:41 09/06/21 05:40 09/06/21 05:36 09/06/21 05:30 09/06/21 05:20 09/06/21 05:10 09/06/21 05:06 09/06/21 05:00 09/06/21 04:51 09/06/21 04:50 09/06/21 04:40 09/06/21 04:38 94 09/06/21 04:30 09/06/21 04:26 09/06/21 04:20 09/06/21 04:14 09/06/21 04:13 09/06/21 04:10 09/06/21 04:00 09/06/21 03:57 09/06/21 03:50 09/06/21 03:49 09/06/21 03:28 09/06/21 03:26 09/06/21 00:38 09/05/21 23:10 09/05/21 22:[address] SCAN OF THE ABDOMEN AND PELVIS WITH IV CONTRAST CLINICAL HISTORY: Buttock infection. COMPARISON STUDY: Abdominal CT dated 06/14/2021. TECHNIQUE: Following the IV administration of 120 cc of Optiray 320, CT scan of the abdomen and pelvis is performed from the lung bases to the proximal femora. Images are reviewed in the axial, sagittal, and coronal planes. IV contrast was administered without complication. A dose lowering technique was utilized adhering to the principles of ALARA. The examination is degraded by motion artifact, large body habitus, and by streak artifact from the body wall abutting the CT gantry and the left arm which could not be elevated above the abdomen or pelvis. CT DOSE: 2634.94 mGy.cm FINDINGS: Lung bases: The heart is mildly enlarged and without pericardial effusion. The coronary arteries are densely calcified. The lung bases are clear noting dependent scarring/atelectasis. There is a tiny hiatal hernia. Liver: The contrast-enhanced liver is enlarged, measuring 25 cm in length. The liver demonstrates diffusely diminished attenuation consistent with hepatic steatosis. Foci of more focal fatty infiltration are seen adjacent to falciform ligament the gallbladder fossa. There is no intrahepatic biliary ductal dilatation. The hepatic veins and portal veins are patent. Gallbladder: Unremarkable. Spleen: Normal in size and attenuation. Pancreas: Moderately atrophic and grossly unremarkable. 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 Kidneys: The contrast enhanced kidneys demonstrate cortical atrophy and are without hydronephrosis. The kidneys enhance symmetrically. Bilateral nonobstructing renal calculi measure up to 5 mm. Abdominal vasculature: The abdominal aorta is normal in course and caliber noting mild atherosclerotic calcification. The IVC is diminutive with IVC filter are in place. Bowel: There is a left lower quadrant colostomy. No bowel obstruction is seen. The appendix is not visualized. Peritoneum: There are clustered foci of extraluminal gas bubbles seen adjacent to the sigmoid colon on image #[id number]. No free air seen below the diaphragm. There is no abdominal ascites. Lymphadenopathy: There are shotty retroperitoneal lymph nodes. These are not pathologically enlarged by size criteria. Pelvic viscera: The bladder is decompressed around a suprapubic catheter. The bladder wall appears circumferentially thickened is pericystic infiltration. The prostate gland is diminutive and heterogeneous. Skeletal structures soft tissues: The skeletal structures are osteopenic. No lytic or blastic lesions are seen. Chronic deformity and postoperative change is seen involving the left posterior ribs. Postoperative change is noted in the left proximal femur. A large decubitus ulceration is again seen overlying the left ischium. This reaches the underlying cortex, and sclerotic change within the underlying bone suggests chronic left ischial osteomyelitis. There is a large infectious process seen involving the lower sacrum and coccyx as well as the right ischium. This is new as compared to 06/14/2021, with significant soft tissue inflammation, fluid, and deep soft tissue gas. Erosive change within the lower sacrum and coccyx is consistent with osteomyelitis. There is a small fluid collection involving and immediately below the sacrum and coccyx seen on axial image #442. This measures approximately 2.5 x 3.5 x 3 cm and is typical in appearance for abscess. Soft tissue gas at inflammation approaches the right ischial tuberosity. There is cortical erosion of the right ischial tuberosity seen on image #473 which likely represents osteomyelitis. There is evidence of right gluteal myositis. Ill-defined gas and fluid within the right gluteus maximum muscle as seen on image #47. IMPRESSION: 1. There is a large infectious process centered around the lower sacrum and coccyx and also involving the right ischium as detailed above with evidence of multifocal osteomyelitis. This is new from 06/14/2021. 2. There is likely overlying sacral decubitus ulceration with a gas and fluid containing collection involving the lower sacrum and coccyx typical for abscess. 3. There is myositis of the right gluteus pawel muscle with intramuscular gas and fluid. 4. A large decubitus ulceration overlying the left ischium is similar to the 06/14/2021. There is likely chronic left ischial osteomyelitis 5. The bladder is decompressed around a suprapubic catheter. The bladder wall appears thickened and there is pericystic infiltration. Correlate with urinalysis for evidence of cystitis. 6. There are extraluminal bubbles of gas seen adjacent to the sigmoid colon. This is of indeterminant etiology and significance, and may represent atypical pneumatosis. This could also related to the more inferiorly located suprapubic catheter or pelvic infection. Visceral perforation is considered less likely but would be impossible to exclude. Clinical correlation will be essential. 7. Hepatomegaly and hepatic steatosis. 8. Bilateral nephrolithiasis. 9. Additional findings as above. ACT 112: Negative or not required by law. Electronically signed by: José Wise M.D. 09/06/2021 12:56 AM PG Care Time/CCT Total # of Minutes Spent Total Time Spent with Patient: Total time spent is greater than 50% in coordination of care (as documented) at patient's floor/unit and/or counseling patient: Coding Level of Care Code 66024 Inpt Consult Level 2 Diagnoses Sacral decubitus ulcer, stage IV L89.154
[2021-09-06] MEDS ORDERED: DAKIN'S SOLN 0.125% QUARTER STRENGTH 473 ML BTL EXT ONE (10:45)
[2021-09-06] MEDS ORDERED: LABETALOL HCL IV 5 MG/ML 20ML IV PRN (11:41)
[2021-09-06] MEDS ORDERED: ONDANSETRON INJ 2 MG/ML 2 ML VIAL IV PRN (11:41)
[2021-09-06] MEDS ORDERED: ePHEDrine sulfate 50 MG/ML AMP IV PRN (11:41)
[2021-09-06] MEDS ORDERED: fentaNYL citrate 100 MCG/2 ML VIAL IV PRN (11:41)
[2021-09-06] MEDS ORDERED: ATROPINE SULFATE 0.1 MG/ML 10ML SYR IV PRN (11:41)
[2021-09-06] MEDS ORDERED: PHENYLEPHRINE 100MCG/ML 5ML SYR IV PRN (11:41)
--- NOTE | 2021-09-06 11:43 | Anesthesiology Consultation ---
Date of Service September 06, 2021 Assessment & Plan (1) Encounter for pre-operative examination: Chart Review Chart Review: Acceptable Risk for Surgery (elevated risk patient but necessary surgery) and Patient NOT seen in Pre Admission Testing Consults Requested none History Surgery Operation Date: 09/06/21 12:00 Proposed Procedures p Incision and Drainage - Agusto Chaudhry DO Height/Weight Height: 5 ft 11 in Weight: 154 kg Allergies Allergy/AdvReac Type Severity Reaction Status Date / Time codeine Allergy Severe THROAT Verified 09/05/21 23:32 SWELLS latex Allergy Intermediate welts Verified 09/05/21 23:32 piperacillin Allergy Intermediate RASH Verified 09/05/21 23:32 Sulfa (Sulfonamide Allergy Intermediate HIVES Verified 09/05/21 23:32 Antibiotics) tazobactam Allergy Intermediate RASH Verified 09/05/21 23:32 aztreonam Allergy Unknown unknown Verified 09/05/21 23:32 metoclopramide [From Reglan] AdvReac Mild lethargy Verified 09/05/21 23:32 Medications Home Medications Medication Instructions Recorded Confirmed Last Taken allopurinol 100 mg tablet 100 mg PO BID 05/07/18 09/05/21 09/05/21 ferrous gluconate 324 mg (38 mg 324 mg PO QAM 05/07/18 09/05/21 09/05/21 iron) tablet furosemide 40 mg tablet 40 mg PO BID 05/07/18 09/05/21 09/05/21 gabapentin 800 mg tablet 800 mg PO BID 05/07/18 09/05/21 09/05/21 magnesium oxide 400 mg (241.3 mg 400 mg PO BID 05/07/18 09/05/21 09/05/21 12:00 magnesium) tablet multivitamin 1 tab PO QAM 05/07/18 09/05/21 09/05/21 pantoprazole 40 mg tablet,delayed 40 mg PO QAM 05/07/18 09/05/21 09/05/21 release ropinirole 1 mg tablet 1 mg PO QID 05/07/18 09/05/21 09/05/21 18:00 escitalopram oxalate 20 mg tablet 20 mg PO QAM tab 08/21/19 09/05/21 09/05/21 insulin human U-100 NPH-regulr 56 unit SUBCUT BID 08/21/19 09/05/21 09/05/21 70-30 mix 100 unit/mL subcutaneous susp (Novolin 70/30 U-100 Insulin) warfarin 5 mg tablet 5 mg PO 3XWK tab 08/21/19 09/05/21 09/04/21 atorvastatin 40 mg tablet 40 mg PO HS 08/24/19 09/05/21 09/04/21 baclofen 10 mg tablet 10 mg PO QID 09/22/19 09/05/21 09/05/21 18:00 cyclobenzaprine 10 mg tablet 15 mg PO HS 03/01/20 09/05/21 09/04/21 hyoscyamine sulfate 0.125 mg tablet 0.125 mg PO QPM 03/01/20 09/05/21 09/05/21 potassium chloride 10 mEq 10 meq PO BIDM 03/01/20 09/05/21 09/05/21 tablet,extended release spironolactone 25 mg tablet 25 mg PO QAM 03/01/20 09/05/21 09/05/21 (Aldactone) tizanidine 4 mg tablet 4 mg PO BID 03/01/20 09/05/21 09/05/21 12:00 Medical Marijuana See Rx Instructions .ROUTE .COMPLEX 03/26/20 09/05/21 09/05/21 methenamine hippurate 1 gram tablet 1 g PO BID 30 Days #60 tab 04/02/20 09/05/21 09/05/21 12:00 ascorbic acid (vitamin C) 500 mg 250 mg PO TID 12/03/20 09/05/21 09/05/21 tablet (Vitamin C) famotidine 20 mg tablet (Acid 20 mg PO BID 12/03/20 09/05/21 09/05/21 Garment Presser (famotidine)) zinc sulfate 50 mg zinc (220 mg) 50 mg PO QDL 12/03/20 09/05/21 09/05/21 capsule Lactobacillus acidoph-L.bulgaricus 1 tab PO BID 01/03/21 09/05/21 09/05/21 1 million cell tablet (Floranex) acetaminophen 500 mg capsule 1,000 mg PO Q6H PRN 01/03/21 09/05/21 12/27/20 12:00 bethanechol chloride 5 mg tablet 5 mg PO TID 01/03/21 09/05/21 09/05/21 18:00 insulin regular human 100 unit/mL 1 sliding scale dose SUBCUT 01/03/21 09/05/21 09/05/21 injection solution (Novolin R USEASDIRECTD Regular U-100 Insulin) mecobalamin-levomefolate 1 tab PO BID 01/03/21 09/05/21 09/05/21 calcium-pyridoxal phos 3 mg-35 mg-2 mg tablet ([id number]) menthol 0.44 %-zinc oxide 20.6 % 1 applic TOPICAL QID PRN 01/03/21 09/05/21 01/09/21 23:55 topical ointment (Calmoseptine) methenamin 81.6 mg-hyoscyam 0.12 1 tab PO QPM 01/03/21 09/05/21 09/05/21 mg-methblue 10.8 [id number] tablet nystatin 100,000 unit/gram topical 1 applic TOPICAL BID PRN 01/03/21 09/05/21 01/10/21 08:00 powder nystatin-triamcinolone 100,000 1 applic TOPICAL BID 01/03/21 09/05/21 09/05/21 unit/g-0.1 % topical cream triamcinolone acetonide 0.1 % 1 applic TOPICAL BID PRN 01/03/21 09/05/21 05/0 03/26 08:30 topical cream irbesartan 75 mg tablet 75 mg PO DAILY 06/02/21 09/05/21 09/05/21 warfarin 7.5 mg tablet 7.5 mg PO [id number] 06/02/21 09/05/21 09/03/21 metformin 1,000 mg tablet 1,000 mg PO BIDM 06/14/21 09/05/21 09/05/21 cefdinir 300 mg capsule 300 mg PO BID 06/23/21 09/05/21 09/05/21 Active Medications Generic Name Dose Route Start Last Admin Trade Name Freq PRN Reason Stop Dose Admin Allopurinol 100 mg 09/06/21 09:00 09/06/21 08:32 Allopurinol 100 Mg Tab PO 10/06/21 08:59 100 mg BID JO Administration Baclofen 10 mg 09/06/21 09:00 09/06/21 08:32 Baclofen 10 Mg Tab PO 10/06/21 08:59 10 mg QID JO Administration Escitalopram Oxalate 20 mg 09/06/21 09:00 09/06/21 08:32 Escitalopram Oxalate 20 Mg Tab PO 10/06/21 08:59 20 mg QAM JO Administration Famotidine 20 mg 09/06/21 09:00 09/06/21 08:32 Famotidine 20 Mg Tab PO 10/06/21 08:59 20 mg BID JO Administration Ferrous Gluconate 324 mg 09/06/21 09:00 09/06/21 08:32 Ferrous Gluconate 324 Mg Tab PO 10/06/21 08:59 324 mg QAM JO Administration Gabapentin 800 mg 09/06/21 09:00 09/06/21 08:32 Gabapentin 800 Mg Tab PO 10/06/21 08:59 800 mg BID JO Administration Lactated Ringer's 1,000 mls @ 100 mls/hr 09/06/21 04:35 09/06/21 07:02 Lr IV 09/06/21 14:34 100 mls/hr .Q10H STA Administration Daptomycin 650 mg/ Syringe 13 mls @ 6.5 mls/min 09/06/21 06:00 09/06/21 07:05 IV 10/18/21 05:59 6.5 mls/min Q24H JO Administration Protocol Meropenem 500 mg/ Syringe 10 mls @ 2 mls/min 09/06/21 06:00 09/06/21 11:14 IV 10/18/21 05:59 2 mls/min Q6H JO Administration Protocol Insulin Aspart 0 units 09/06/21 05:00 09/06/21 11:13 Insulin Aspart Per Unit SC 10/06/21 04:59 Not Given Q6 JO Insulin Glargine 30 units 09/06/21 09:00 09/06/21 08:33 Insulin Glargine Solostar 100 Units/Ml 3 Ml Pen SC 10/06/21 08:59 30 units BID JO Administration Irbesartan 75 mg 09/06/21 09:00 09/06/21 08:33 Irbesartan 75 Mg Tab PO 10/06/21 08:59 75 mg DAILY JO Administration Lactobacillus Acidoph/Casei/Rhamnos 2 cap 09/06/21 09:00 09/06/21 08:33 Advanced Probiotic 1250 Mg Capsule PO 10/06/21 08:59 2 cap DAILY JO Administration Magnesium Oxide 400 mg 09/06/21 09:00 09/06/21 08:33 Magnesium Oxide 400 Mg Tab PO 10/06/21 08:59 400 mg BID JO Administration Miscellaneous 1 ea 09/06/21 08:00 09/06/21 07:46 Bethanechol~Order Awaiting Action N/A 10/06/21 07:59 Not Given QS JO Multivitamins 1 tab 09/06/21 09:00 09/06/21 08:33 Multivitamin Tab PO 10/06/21 08:59 1 tab QAM JO Administration Pantoprazole Sodium 40 mg 09/06/21 09:00 09/06/21 08:33 Pantoprazole 40 Mg Tab PO 10/06/21 08:59 40 mg QAM JO Administration Tizanidine HCl 4 mg 09/06/21 09:00 09/06/21 08:33 Tizanidine Hcl 4 Mg Tablet PO 10/06/21 08:59 4 mg BID JO Administration Past Medical History Medical History Anemia Asymptomatic bacteriuria Clostridium difficile infection (Unknown) CVA (cerebral vascular accident) DM type 2 (diabetes mellitus, type 2) Dyslipidemia Dysphagia Fever History of blood clots History of DVT (deep vein thrombosis) Hypertension Hypotension Ileus Kidney disease Leukocytosis Major depressive disorder, recurrent Obesity Occluded PICC line Positive urine culture Quadriplegia BRAIN INJURY 11 YRS AGO Seizure SIRS (systemic inflammatory response syndrome) Sleep apnea (Unknown) OXYGEN 2L/MIN NC HS Syncope 57 year old with know quadriplegia and new onset syncope with change in position UTI (urinary tract infection) RECENT [facility] 12/06/20 Past Family History Family History Mother No pertinent family history Family history of diabetes mellitus Father Family hx of colon cancer Past Surgical History Surgical History History of colonoscopy 2010 History of open reduction and internal fixation (ORIF) procedure LEFT FEMUR Insertion of inferior vena caval filter (Unknown) Lithotripsy (Unknown) "laser lithotripsy left ureteral stone 03/17/11 " S/P knee surgery S/P tonsillectomy Suprapubic cystostomy (Unknown) IN PLACE Social History Smoking Status: Unknown if ever smoked Do You Dip or Chew Tobacco: No Hx Alcohol Use: No Hx Substance Use: No substance use type: marijuana Substance Use Type Other:: medical card at home with pt . Last Used Substance: Days (ago) Physical Exam Vital Signs Last Vital Signs Temp 36.8 C 09/06/21 10:46 Pulse 96 H 09/06/21 11:00 Resp 14 09/06/21 11:00 BP 107/65 09/06/21 10:46 Pulse Ox 97 09/06/21 11:00 Testing Laboratory Results 09/06/21 08:08 09/06/21 08:08 PT 15.4 Seconds (9.0-12.0) H 09/06/21 08:08 INR 1.6 (0.9-1.1) H 09/06/21 08:08 APTT 46.6 Seconds (21.0-31.0) H* 09/06/21 08:08 Urine Color Yellow 09/06/21 00:40 Urine Appearance Cloudy (Clear) A 09/06/21 00:40 Urine pH 5.0 (4.5-7.5) 09/06/21 00:40 Ur Specific [place] 1.017 (1.000-1.030) 09/06/21 00:40 Urine Protein Trace (Negative) H 09/06/21 00:40 Urine Glucose (UA) Negative (Negative) 09/06/21 00:40 Urine Ketones Trace (Negative) H 09/06/21 00:40 Urine Nitrite Negative (Negative) 09/06/21 00:40 Ur Leukocyte Esterase 3+ (Negative) H 09/06/21 00:40 Urine WBC (Auto) >30 /hpf (0-5) H 09/06/21 00:40 Urine RBC (Auto) 0-4 /hpf (0-4) 09/06/21 00:40 U Hyaline Cast (Auto) 1-5 /lpf (0-5) 09/06/21 00:40 U Epithel Cells (Auto) >30 /lpf (0-5) H 09/06/21 00:40 Urine Bacteria (Auto) Negative (Negative) 09/06/21 00:40 Blood Type A Positive 09/06/21 02:59 Antibody Screen NEGATIVE 09/06/21 02:59 09/05/21 Unknown Gram Stain - Final Buttock 09/06/21 05:22 POC Glucose 132 H Electrocardiogram Date: 09/05/21 Findings: + ST @ (114) nonspecific intraventricular conduction delay, T wave abnormality consider anterior ischemia Chest X-Ray Date: 09/05/21 SINGLE VIEW CHEST CLINICAL HISTORY: Sepsis FINDINGS: An AP, portable, semierect chest radiograph is compared to study dated 06/14/2021 and correlated with chest CT dated 06/18/2021. The examination is degraded by portable technique, apical lordotic positioning, and patient rotation. The heart is mildly enlarged. The pulmonary vasculature is nonco ngested. There is bibasilar atelectasis. The lungs and pleural spaces are otherwise clear. No pneumothorax is seen. The skeletal structures are osteopenic. Cerclage wires project over the left lower ribs. IMPRESSION: No acute cardiopulmonary abnormality. ACT 112: Negative or not required by law. Electronically signed by: José Wise M.D. 09/05/2021 11:45 PM Dictated:09/05/21 2343 Echocardiogram Date: 03/17/20 EF: 65-70 LV Function: normal Other Findings: + RVH and + LVH
[2021-09-06] MEDS ORDERED: KETAMINE 50 MG/5 ML SYRINGE ONE (11:59)
[2021-09-06] MEDS ORDERED: MIDAZOLAM HCL 1 MG/ML 2ML VIAL ONE ×2 (12:17→12:34)
[2021-09-06] MEDS ORDERED: fentaNYL citrate 100 MCG/2 ML VIAL ONE (12:43)
[2021-09-06] MEDS ORDERED: FLOSEAL HEMOSTATIC MATRIX 10ML TOP ONE (13:30)
--- NOTE | 2021-09-06 13:32 | Post Operative Brief Note ---
PG Immediate Post Op with CF Date of Surgery September 06, 2021 Pre & Post Diagnosis Operation Date: 09/06/21 12:00 Pre-Op Diagnosis: Sacral decubitus ulcer, stage IV Post-Op Diagnosis: Sacral decubitus ulcer, stage IV I identified the patient and participated in the time-out.: Yes Procedure Operation Date: 09/06/21 12:00 Actual Procedures p Incision and Drainage and Debridement Sacral Tissue Down to Bone, 15cm x 11cm - Agusto Chaudhry DO Surgeon Agusto Chaudhry DO Manager Reporting Ranjana Yadav PA-C Estimated Blood Loss 100 Findings See Below Large necrotic cavity within the right buttock Sacral abscess Sacral osteomyelitis Specimens Specimen Description: Culture: 1. Deep Sacral Swab 2. Gluteal Tissue 3. Sacrum for Culture Permanent A. Gluteal Tissue Anesthesia Type MAC Complications none Disposition Disposition: Recovery Room
--- NOTE | 2021-09-06 13:35 | Operative Report ---
PG Post Operative Report Pre & Post Diagnosis Operation Date: 09/06/21 12:00 Pre-Op Diagnosis: Sacral decubitus ulcer, stage IV Post-Op Diagnosis: Sacral decubitus ulcer, stage IV Sacral osteomyelitis I identified the patient and participated in the time-out.: Yes Procedure Operation Date: 09/06/21 12:00 Actual Procedures p Incision and Drainage and Debridement Sacral Tissue Down to Bone, 15cm x 11cm - Agusto Chaudhry DO Surgeon Agusto Chaudhry DO Production Graphic Designer Ranjana Yadav PA-C Estimated Blood Loss 100 Findings See Below Large necrotic cavity within the right buttock Sacral abscess Sacral osteomyelitis Specimens Culture: 1. Deep Sacral Swab 2. Gluteal Tissue 3. Sacrum for Culture Permanent A. Gluteal Tissue Drains None Anesthesia Type MAC Complications none Disposition Disposition: Recovery Room Indications 60-year-old quadriplegic male with evidence of sacral abscess and osteomyelitis clinically and radiographically in need of drainage and debridement Description of Procedure The patient was brought to the operating room and underwent MAC anesthesia without issue. At this time the patient was placed in the prone jackknife position. The bilateral buttocks and lower back were prepped and draped in the usual sterile fashion. Appropriate pre-operative antibiotics were administered. A timeout was called. The procedure was verified as incision, drainage and debridement of sacral and buttock ulcers. Surgical, anesthesia and nursing teams agreed and the procedure was begun. The sacral and right buttock wound was explored and there was a small opening superiorly in the mid lower back that tunneled inferiorly and laterally into the right buttock. The right buttock itself had a large necrotic eschar present centrally with denuded skin peripheral to this. The skin overlying this area was excised sharply using a 10 blade scalpel. The skin and subcutaneous tissue that made up the wound was excised using a #10 blade scalpel so that the undermining was no longer present and healthy bleeding tissue was encountered. This tissue was sent for culture. At the base of the wound, there was sacrum present and exposed with a small abscess that was drained. Using a rongeur, a portion of the exposed sacrum was debrided and sent for culture. A swab culture of the deepest portion of the wound was performed after debridement. The wound was irrigated with Dakin's solution until clear. At this time hemostasis was achieved using electrocautery. Hemostasis was complete. The patient did show some transient hypotension in the operating room and it was thought to delay any further debridement for a later date once he has stabilized over the next 48 hours. The wound measured 15 cm x 11 cm. At this time the incision was packed with Dakin's wet-to-dry Kerlix and a sterile dressing was applied. At this time the patient was awakened from anesthesia and transported to PACU in stable condition. The physician assistant media buyer was present and scrubbed for the entire case. She was essential in positioning, prepping and draping the patient, retraction and exposure, placement of the dressing. I attest to the content of the Intraoperative Record and any orders documented therein. Any exceptions are noted below.
[2021-09-06] MEDS ORDERED: metroNIDAZOLE 500 MG TAB PO SCH (14:00)
--- NOTE | 2021-09-06 14:39 | Anesthesiology Progress Note ---
Date of Service September 06, 2021 Anesthesia Post Procedure Vital Signs Vital Signs: Temp Pulse Pulse Pulse Resp BP BP 09/06/21 14:25 78 15 113/50 L 09/06/21 14:15 36.3 C L 81 12 89/46 L 09/06/21 14:05 80 12 95/51 L 09/06/21 14:00 81 12 101/49 L 09/06/21 13:55 81 14 90/48 L 09/06/21 13:45 82 20 77/47 L 09/06/21 13:35 85 18 104/52 L 09/06/21 13:28 36.6 C 87 14 116/64 09/06/21 11:00 96 H 14 09/06/21 10:50 93 H 17 09/06/21 10:46 36.8 C 93 H 18 107/65 09/06/21 10:40 92 H 20 09/06/21 10:30 93 H 16 107/65 09/06/21 10:25 36.8 C 93 H 20 108/61 09/06/21 10:20 36.8 C 92 H 18 107/65 09/06/21 10:15 36.8 C 96 H 18 107/65 09/06/21 10:13 36.9 C 94 H 20 102/55 L 09/06/21 10:12 36.8 C 101 H 18 102/55 L 09/06/21 10:10 94 H 18 09/06/21 10:00 94 H 19 102/55 L 09/06/21 09:50 93 H 18 09/06/21 09:40 18 09/06/21 09:30 95 H 16 09/06/21 09:20 95 H 22 09/06/21 09:10 100 H 14 09/06/21 09:00 103 H 30 H 111/59 L 09/06/21 08:50 111 H 33 H 09/06/21 08:40 103 H 18 09/06/21 08:30 100 H 14 119/65 09/06/21 08:20 99 H 16 09/06/21 08:10 102 H 14 09/06/21 08:00 99 H 16 117/64 09/06/21 07:50 99 H 15 09/06/21 07:40 99 H 16 09/06/21 07:30 99 H 16 116/60 09/06/21 07:25 37 C 92 H 20 09/06/21 07:20 99 H 15 09/06/21 07:10 99 H 13 09/06/21 07:00 102 H 15 114/60 09/06/21 06:59 36.5 C 100 H 16 121/64 09/06/21 06:58 100 H 20 121/64 09/06/21 06:50 102 H 17 09/06/21 06:40 104 H 20 09/06/21 06:33 36.4 C L 102 H 20 103/66 09/06/21 06:30 102 H 25 H 103/66 09/06/21 06:20 102 H 17 09/06/21 06:18 36.7 C 105 H 31 H 127/77 09/06/21 06:10 103 H 15 09/06/21 06:02 37.0 C 104 H 16 115/62 09/06/21 06:00 99 H 21 115/62 09/06/21 05:50 100 H 20 09/06/21 05:44 37.0 C 102 H 21 117/73 09/06/21 05:41 100 H 17 117/62 09/06/21 05:40 104 H 18 09/06/21 05:36 37.1 C 101 H 18 117/62 09/06/21 05:30 104 H 18 122/73 09/06/21 05:20 100 H 19 09/06/21 05:10 101 H 13 09/06/21 05:06 36.9 C 102 H 22 127/65 09/06/21 05:00 99 H 17 121/60 09/06/21 04:51 37.1 C 97 H 21 119/69 09/06/21 04:50 98 H 18 09/06/21 04:40 101 H 20 09/06/21 04:38 09/06/21 04:30 37.0 C 102 H 21 100/66 09/06/21 04:26 102 H 18 95/63 L 09/06/21 04:20 103 H 15 09/06/21 04:14 99 H 16 09/06/21 04:13 98 H 19 120/64 09/06/21 04:10 99 H 23 09/06/21 04:00 99 H 98 H 19 114/66 09/06/21 03:57 100 H 22 112/65 09/06/21 03:50 18 09/06/21 03:49 123/66 09/06/21 03:28 92 H 16 09/06/21 03:26 09/06/21 00:38 106 H 23 09/05/21 23:10 09/05/21 22:35 38.6 C H 120 H 22 134/70 BP Pulse Ox Pulse Ox 09/06/21 14:25 97 09/06/21 14:15 98 09/06/21 14:05 99 09/06/21 14:00 99 09/06/21 13:55 100 09/06/21 13:45 100 09/06/21 13:35 100 09/06/21 13:28 98 09/06/21 11:00 97 09/06/21 10:50 96 09/06/21 10:46 98 09/06/21 10:40 96 09/06/21 10:30 98 09/06/21 10:25 97 09/06/21 10:20 98 09/06/21 10:15 97 09/06/21 10:13 97 09/06/21 10:12 97 09/06/21 10:10 98 09/06/21 10:00 98 09/06/21 09:50 97 09/06/21 09:40 97 09/06/21 09:30 96 09/06/21 09:20 96 09/06/21 09:10 98 09/06/21 09:00 96 09/06/21 08:50 99 09/06/21 08:40 99 09/06/21 08:30 97 09/06/21 08:20 95 09/06/21 08:10 98 09/06/21 08:00 96 09/06/21 07:50 95 09/06/21 07:40 96 09/06/21 07:30 99 09/06/21 07:25 138/76 96 09/06/21 07:20 98 09/06/21 07:10 97 09/06/21 07:00 98 09/06/21 06:59 97 09/06/21 06:58 98 09/06/21 06:50 95 09/06/21 06:40 81 L 09/06/21 06:33 93 09/06/21 06:30 99 09/06/21 06:20 98 09/06/21 06:18 97 09/06/21 06:10 90 09/06/21 06:02 93 09/06/21 06:00 95 09/06/21 05:50 96 09/06/21 05:44 97 09/06/21 05:41 97 09/06/21 05:40 98 09/06/21 05:36 98 09/06/21 05:30 98 09/06/21 05:20 96 09/06/21 05:10 99 09/06/21 05:06 98 09/06/21 05:00 85 L 09/06/21 04:51 96 09/06/21 04:50 95 09/06/21 04:40 94 09/06/21 04:38 94 09/06/21 04:30 93 09/06/21 04:26 95/63 L 92 09/06/21 04:20 97 09/06/21 04:14 120/64 96 09/06/21 04:13 94 09/06/21 04:10 86 L 09/06/21 04:00 114/66 96 09/06/21 03:57 93 09/06/21 03:50 96 09/06/21 03:49 09/06/21 03:28 100/62 09/06/21 03:26 94 09/06/21 00:38 122/54 L 96 09/05/21 23:10 93 09/05/21 22:35 90 Transfer of Care Handoff Completed per policy Notes Mental Status: alert / awake / arousable Patient Amnestic to Procedure: Yes Nausea / Vomiting: adequately controlled Pain: adequately controlled Airway Patency, RR, SpO2: stable & adequate BP & HR: stable & adequate and see Notes below Hydration State: stable & adequate Anesthetic Complications: no major complications apparent and Pt Satisfied with anesthetic care Notes: The patient is awake and comfortable. His baseline SBP was in the 100s. He was hypotensive with SBP in the 70s to 90s in PACU, however he has now received 2500 ml of crystalloid and his SBP is now in the 90s to 110s. His other vital signs are stable.
--- NOTE | 2021-09-06 14:44 | Hospitalist Progress Note ---
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 Purulent drainage from sacral wound soaking dressings as per his . Patient with loose stools as per . No headache/chest pain/SOA/abdominal pain. Pt non smoker and no chronic intake of alcohols. Pt on 2L O2 at night at home. Of note, patient was in [facility] August 24-2020--> sacral decubitus s/p debridement where wound culture grew MDR Pseudomonas and Enterococcus faecalis. Per , debridement not deep enough due to elevated INR at the time of surgery per Surgeon. Patient had concerns about draining wounds with intermittent bleeding at time of discharge from [facility] 2 days ago. He is being managed for the following: #. Severe sepsis #. Infected sacral decubitus wound with OM/abscess #. CAUTI Patient presented with low-grade fever, lethargy and poor appetite 1 day [employer] along with purulent drainage from sacral wound soaking dressings per his . Also he had loose stool in his ostomy bag [admitting C. difficile negative]. Admitting vitals: 38.6C, 120 bpm, room air with admitting lactate of 2.9 Admitting WBC 22.73K, admitting procalcitonin 0.79 Admitting CTAP: Large infectious process centered around the lower sacrum and coccyx, also involving the right ischium with evidence of multifocal OM. Suggestive of lower sacrum and coccyx abscess. Myositis of the right gluteus pawel muscle with intramuscular gas and fluid. Bladder wall thickened with pericystic infiltration, suspicious for cystitis. 08/24/2021 outpatient urine culture: E faecalis and MDR Pseudomonas aeruginosa. Infected sacral decubitus wound with underlying abscess/osteomyelitis: Recent debridement in [facility]--> see above Imaging--> see above Surgery on board: to OR today, will follow operative culture. CAUTI History of recurrent UTIs on chronic methenamine suppression treatment. Neurogenic bladder with suprapubic catheter in situ. Recent urine culture--> see above Admitting urine culture: Pending Continue with daptomycin 09/06 and meropenem 09/06 Infectious disease consulted, await final culture results. #. History of DVT Patient on Coumadin, INR therapeutic at admission, IVC filter placed 11 years ago per patient. Patient received vitamin K to bring down INR for preparation for OT. Patient also received 4 units of FFP due to elevation in his APTT prior to the OR. Resume once bleeding risk sustained minimal/negligible as per surgery postoperative evaluation. #. Chronic anemia Baseline hemoglobin around 7 as of 08/2021 Admitting hemoglobin of 8.4 Patient undergoing I&D today, follow-up hemoglobin, transfuse if less than 7. #. Other chronic medical condition: HTN, HLD, DM2 DM w/ suboptimal control as of recent hemoglobin A1c of 8.8 last July, Hold antihypertensive for concerns of hypotension from sepsis/postop. Resume when able. Resume other meds when able. #DVT prophylaxis: SCDs if INR less than 2 while Coumadin on hold IV Heparin/Coumadin bridge Rx once bleeding risk is deemed minimal/negligible as per Surgery postop eval Full code Patient's Ms. Rody Rodriguez, contact #[phone]. Admission and Anticipated Discharge Date Admission Date: September 06, 2021 Subjective Patient was lying in bed, on 2 L nasal cannula oxygen, NAD, using his mobile, no new acute events overnight. Patient reports low back pain under control, is incomplete quadriplegic with stoma and suprapubic catheter. Patient is n.p.o. for the OR today. Patient denies headache/fever/chills/chest pain/palpitations/belly pain/other review of symptoms. Physical Exam Physical Exam: GENERAL: Alert and oriented x3. NAD, on 2L HEENT: No pallor, no icterus. Pupils equal, round and reactive to light. Oral mucosa moist. NECK: No JVD, no neck masses. HEART: S1 and S2 heard. Regular rate and rhythm. No murmur, no gallop. RESPIRATORY SYSTEM: Normal AP diameter. No accessory muscle use. No wheezing, no crackles. ABDOMEN: Soft, bowel sounds present, nontender, no distention. Left ostomy bag with brown fecal collection with no blood. Suprapubic catheter with no erythema/tenderness around the port of entry. CENTRAL NERVOUS SYSTEM: No facial droop. Speech is clear. Obeys simple commands. Weak BUE with weak technical planner, paralyzed BLE. [Patient incomplete quadriplegic]. EXTREMITIES: No edema, no erythema seen. Back: extensive decubitus wound per documentation, difficult to manipulate the patient. Results & Data Results & Data ([facility]) Vital Signs (Past 12 Hours) Vital Signs Temp Pulse Pulse Pulse Resp BP BP 09/06/21 13:55 81 14 90/48 L 09/06/21 13:45 82 20 77/47 L 09/06/21 13:35 85 18 104/52 L 09/06/21 13:28 36.6 C 87 14 116/64 09/06/21 11:00 96 H 14 09/06/21 10:50 93 H 17 09/06/21 10:46 36.8 C 93 H 18 107/65 09/06/21 10:40 92 H 20 09/06/21 10:30 93 H 16 107/65 09/06/21 10:25 36.8 C 93 H 20 108/61 09/06/21 10:20 36.8 C 92 H 18 107/65 09/06/21 10:15 36.8 C 96 H 18 107/65 09/06/21 10:13 36.9 C 94 H 20 102/55 L 09/06/21 10:12 36.8 C 101 H 18 102/55 L 09/06/21 10:10 94 H 18 09/06/21 10:00 94 H 19 102/55 L 09/06/21 09:50 93 H 18 09/06/21 09:40 18 09/06/21 09:30 95 H 16 09/06/21 09:20 95 H 22 09/06/21 09:10 100 H 14 09/06/21 09:00 103 H 30 H 111/59 L 09/06/21 08:50 111 H 33 H 01/01/22 08:40 103 H 18 09/06/21 08:30 100 H 14 119/65 09/06/21 08:20 99 H 16 09/06/21 08:10 102 H 14 09/06/21 08:00 99 H 16 117/64 09/06/21 07:50 99 H 15 09/06/21 07:40 99 H 16 09/06/21 07:30 99 H 16 116/60 09/06/21 07:25 37 C 92 H 20 09/06/21 07:20 99 H 15 09/06/21 07:10 99 H 13 09/06/21 07:00 102 H 15 114/60 09/06/21 06:59 36.5 C 100 H 16 121/64 09/06/21 06:58 100 H 20 121/64 09/06/21 06:50 102 H 17 09/06/21 06:40 104 H 20 09/06/21 06:33 36.4 C L 102 H 20 103/66 09/06/21 06:30 102 H 25 H 103/66 09/06/21 06:20 102 H 17 09/06/21 06:18 36.7 C 105 H 31 H 127/77 09/06/21 06:10 103 H 15 09/06/21 06:02 37.0 C 104 H 16 115/62 09/06/21 06:00 99 H 21 115/62 09/06/21 05:50 100 H 20 09/06/21 05:44 37.0 C 102 H 21 117/73 09/06/21 05:41 100 H 17 117/62 09/06/21 05:40 104 H 18 09/06/21 05:36 37.1 C 101 H 18 117/62 09/06/21 05:30 104 H 18 122/73 09/06/21 05:20 100 H 19 09/06/21 05:10 101 H 13 09/06/21 05:06 36.9 C 102 H 22 127/65 09/06/21 05:00 99 H 17 121/60 09/06/21 04:51 37.1 C 97 H 21 119/69 09/06/21 04:50 98 H 18 09/06/21 04:40 101 H 20 09/06/21 04:38 09/06/21 04:30 37.0 C 102 H 21 100/66 09/06/21 04:26 102 H 18 95/63 L 09/06/21 04:20 103 H 15 09/06/21 04:14 99 H 16 09/06/21 04:13 98 H 19 120/64 09/06/21 04:10 99 H 23 09/06/21 04:00 99 H 98 H 19 114/66 09/06/21 03:57 100 H 22 112/65 09/06/21 03:50 18 09/06/21 03:49 123/66 09/06/21 03:28 92 H 16 09/06/21 03:26 BP Pulse Ox Pulse Ox 09/06/21 13:55 100 09/06/21 13:45 100 09/06/21 13:35 100 09/06/21 13:28 98 09/06/21 11:00 97 09/06/21 10:50 96 09/06/21 10:46 98 09/06/21 10:40 96 09/06/21 10:30 98 09/06/21 10:25 97 09/06/21 10:20 98 09/06/21 10:15 97 09/06/21 10:13 97 09/06/21 10:12 97 09/06/21 10:10 98 09/06/21 10:00 98 09/06/21 09:50 97 09/06/21 09:40 97 09/06/21 09:30 96 09/06/21 09:20 96 09/06/21 09:10 98 09/06/21 09:00 96 09/06/21 08:50 99 09/06/21 08:40 99 09/06/21 08:30 97 09/06/21 08:20 95 09/06/21 08:10 98 09/06/21 08:00 96 09/06/21 07:50 95 09/06/21 07:40 96 09/06/21 07:30 99 09/06/21 07:25 138/76 96 09/06/21 07:20 98 09/06/21 07:10 97 09/06/21 07:00 98 09/06/21 06:59 97 09/06/21 06:58 98 09/06/21 06:50 95 09/06/21 06:40 81 L 09/06/21 06:33 93 09/06/21 06:30 99 09/06/21 06:20 98 09/06/21 06:18 97 09/06/21 06:10 90 09/06/21 06:02 93 09/06/21 06:00 95 09/06/21 05:50 96 09/06/21 05:44 97 09/06/21 05:41 97 09/06/21 05:40 98 09/06/21 05:36 98 09/06/21 05:30 98 09/06/21 05:20 96 09/06/21 05:10 99 09/06/21 05:06 98 09/06/21 05:00 85 L 09/06/21 04:51 96 09/06/21 04:50 95 09/06/21 04:40 94 09/06/21 04:38 94 09/06/21 04:30 93 09/06/21 04:26 95/63 L 92 09/06/21 04:20 97 09/06/21 04:14 120/64 96 09/06/21 04:13 94 09/06/21 04:10 86 L 09/06/21 04:00 114/66 96 09/06/21 03:57 93 09/06/21 03:50 96 09/06/21 03:49 09/06/21 03:28 100/62 09/06/21 03:26 94
[2021-09-06] MEDS ORDERED: LACTATED RINGER'S 1,000 ML IV SCH (15:00)
[2021-09-06 15:22] LABS: Hematocrit (blood only) 21.7 % (42-52); Hemoglobin 6.6 g/dL (14.0-18.0); Mean Corpuscular Hemoglobin 28.1 pg (25-34); Mean Corpuscular Hgb Conc 30.4 g/dL (32-36); Mean Corpuscular Volume 92.3 fL (80-100); Mean Platelet Volume 8.2 fL (7.4-10.4); Platelet Count 289 K/uL (130-400); RDW Coefficient of Variation 18.9 % (11.5-14.5); RDW Standard Deviation 64.5 fL (36.4-46.3); Red Blood Count 2.35 M/uL (4.7-6.1); White Blood Count 14.29 K/uL (4.8-10.8)
[2021-09-06 15:46] LABS: Basophils # (auto) 0.02 K/uL (0-0.2); Basophils % (auto) 0.1 %; Eosinophils # (auto) 0.26 K/uL (0-0.5); Eosinophils % (auto) 1.8 %; Immature Granulocytes # (auto) 0.07 K/uL (0.00-0.02); Immature Granulocytes % (auto) 0.5 %; Lymphocytes # (auto) 1.57 K/uL (1.2-3.4); Monocytes # (auto) 0.66 K/uL (0.11-0.59); Monocytes % (auto) 4.6 %; Neutrophils # (auto) 11.71 K/uL (1.4-6.5); RBC Morphology Unremarkable
[2021-09-06] MEDS ORDERED: LACTATED RINGER'S 1,000 ML IV ONE ×2 (20:19→23:53)
[2021-09-06] MEDS: HYOSCYAMINE SULFATE 0.125 MG TAB PO SCH (20:43)
[2021-09-06] MEDS: CYCLOBENZAPRINE HCL 5 MG TAB PO SCH (20:45)
--- NOTE | 2021-09-06 21:09 | Electrocardiogram Report ---
Test Reason : Blood Pressure : / mmHG Vent. Rate : 114 BPM Atrial Rate : 114 BPM P-R Int : 142 ms QRS Dur : 120 ms QT Int : 414 ms P-R-T Axes : 048 034 -31 degrees QTc Int : 570 ms Sinus tachycardia Right bundle branch block T wave abnormality, consider inferior ischemia T wave abnormality, consider anterior ischemia Abnormal ECG When compared with ECG of 14-JUN-2021 11:49, No significant change Confirmed by Steve Khan ([id number]) on 09/06/2021 9:08:57 PM Referred By: REFERRED SELF Confirmed By:Steve Khan
[2021-09-07 00:17] LABS: Hematocrit (blood only) 24.9 % (42-52); Hemoglobin 7.6 g/dL (14.0-18.0)
[2021-09-07] MEDS: INSULIN ASPART PER UNIT SC SCH ×5 (00:51→21:41)
[2021-09-07] MEDS ORDERED: INSULIN GLARGINE SOLOSTAR 100 UNITS/ML 3 ML PEN SC STA (00:57)
[2021-09-07] MEDS ORDERED: LACTATED RINGER'S 1,000 ML IV ONE (02:00)
[2021-09-07] MEDS: MEROPENEM 500 MG in SYRINGE 0 ML IV SCH ×4 (03:04→17:50)
--- NOTE | 2021-09-07 06:16 | Surgery Progress Note ---
Date of Service September 07, 2021 Assessment & Plan (1) Sacral decubitus ulcer, stage IV: Plan: Patient is status post debridement of sacral wound on 09/06/2021 (postop day #1) Operative cultures sent which are pending.; No organisms noted on Gram stain Continue antibiotics in form of daptomycin and meropenem Continue local wound care Patient noted to be anemic postoperatively and has received transfusion of 1 unit of packed red blood cells with appropriate rise in his H&H A.m. labs are pending; will defer need for transfusion to the primary service Decision about any further surgical debridement will be based on future examination of patient's wound Admission and Anticipated Discharge Date Admission Date: September 06, 2021 Supervising Physician Co-Signing Physician Notes I personally saw and evaluated the patient with Melvin Cartwright PA-C and agree with the assessment and plan. 60-year-old male with history of quadriplegia chronic left ischial ulcer and new sacral decubitus ulcer postoperative day 1 debridement His white blood cell count is trending down Leave dressing in place until tomorrow We'll plan on taking him back to the operating room for repeat debridement tomorrow N.p.o. after midnight Subjective Patient is resting in bed. He denies any shortness of breath. He denies significant pain at surgical site. Physical Exam Physical Exam: Surgical wound not examined at this time. Will wait for attending physician and wound care team. Respiratory: normal respiratory effort; no respiratory distress and no labored breathing Results & Data ([facility]) Vital Signs (Past 12 Hours) Vital Signs Temp Pulse Pulse Resp BP BP Pulse Ox 09/07/21 04:57 36.3 C L 74 17 83/52 L 96 09/07/21 02:14 79 09/07/21 00:55 88/53 L 09/06/21 22:52 36.9 C 82 16 83/50 L 94 09/06/21 21:30 80 16 106/59 L 100 09/06/21 21:00 85 18 119/67 98 09/06/21 20:30 81 16 98 09/06/21 20:23 36.7 C 09/06/21 20:22 80 24 109/61 99 09/06/21 20:15 80 14 109/61 99 09/06/21 20:00 80 18 103/58 L 99 09/06/21 19:45 82 19 111/60 100 09/06/21 19:30 80 16 103/61 100 09/06/21 19:15 78 15 95/58 L 98 09/06/21 19:00 76 15 85/56 L 98 09/06/21 18:45 78 17 100/55 L 98 09/06/21 18:40 76 17 99 09/06/21 18:30 78 13 101/57 L 99 09/06/21 18:20 78 17 99 09/06/21 18:15 78 13 102/60 99 PG Care Time/CCT Total # of Minutes Spent Total Time Spent with Patient: Total time spent is greater than 50% in coordination of care (as documented) at patient's floor/unit and/or counseling patient: Coding Level of Care Code None Diagnoses Sacral decubitus ulcer, stage IV L89.154
[2021-09-07] MEDS: DAPTOmycin 650 MG in SYRINGE 0 ML IV SCH (06:20)
[2021-09-07 07:00] LABS: Hematocrit (blood only) 25.7 % (42-52); Hemoglobin 7.9 g/dL (14.0-18.0); Mean Corpuscular Hgb Conc 30.7 g/dL (32-36); Mean Corpuscular Volume 91.1 fL (80-100); Mean Platelet Volume 8.5 fL (7.4-10.4); Platelet Count 300 K/uL (130-400); RDW Coefficient of Variation 18.9 % (11.5-14.5); Red Blood Count 2.82 M/uL (4.7-6.1); White Blood Count 12.02 K/uL (4.8-10.8)
[2021-09-07 07:26] LABS: BUN Creatinine Ratio 21.4 (10-20); Calcium 8.4 mg/dl (8.5-10.1); Creatinine Clr Calc Pharmacy 137.5 ml/min; Est GFR (African American) 108.5 ml/min; Est GFR (Non-African American) 93.6 ml/min; Phosphorus 3.2 mg/dl (2.5-4.9); Potassium 3.9 mmol/L (3.5-5.1)
[2021-09-07] MEDS: ESCITALOPRAM OXALATE 20 MG TAB PO SCH (08:51)
[2021-09-07] MEDS: ADVANCED PROBIOTIC 1250 MG CAPSULE PO SCH (08:51)
[2021-09-07] MEDS: PANTOprazole 40 MG TAB PO SCH (08:51)
[2021-09-07] MEDS: FERROUS GLUCONATE 324 MG TAB PO SCH (08:51)
[2021-09-07] MEDS: GABAPENTIN 800 MG TAB PO SCH ×2 (08:52→21:28)
[2021-09-07] MEDS: tiZANidine HCL 4 MG TABLET PO SCH ×2 (08:52→21:30)
[2021-09-07] MEDS: FAMOTIDINE 20 MG TAB PO SCH ×2 (08:52→21:28)
[2021-09-07] MEDS: allopurinoL 100 MG TAB PO SCH ×2 (08:52→21:26)
[2021-09-07] MEDS: MAGNESIUM OXIDE 400 MG TAB PO SCH ×2 (08:52→21:29)
[2021-09-07] MEDS: BACLOFEN 10 MG TAB PO SCH ×4 (08:52→21:26)
[2021-09-07] MEDS: MULTIVITAMIN TAB PO SCH (08:53)
[2021-09-07] MEDS: INSULIN GLARGINE SOLOSTAR 100 UNITS/ML 3 ML PEN SC SCH ×2 (08:53→21:39)
[2021-09-07] MEDS ORDERED: Nursing to Pharmacy Communication SCH (11:15)
--- NOTE | 2021-09-07 12:23 | Hospitalist Progress Note ---
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 Purulent drainage from sacral wound soaking dressings as per his . Patient with loose stools as per . No headache/chest pain/SOA/abdominal pain. Pt non smoker and no chronic intake of alcohols. Pt on 2L O2 at night at home. Of note, patient was in [facility] August 24-2020--> sacral decubitus s/p debridement where wound culture grew MDR Pseudomonas and Enterococcus faecalis. Per , debridement not deep enough due to elevated INR at the time of surgery per Surgeon. Patient had concerns about draining wounds with intermittent bleeding at time of discharge from [facility] 2 days ago. He is being managed for the following: #. Severe sepsis #. Infected sacral decubitus wound with OM/abscess #. CAUTI Patient presented with low-grade fever, lethargy and poor appetite 1 day SPRING [employer]ER along with purulent drainage from sacral wound soaking dressings per his . Also he had loose stool in his ostomy bag [admitting C. difficile negative]. Admitting vitals: 38.6C, 120 bpm, room air with admitting lactate of 2.9 Admitting WBC 22.73K, admitting procalcitonin 0.79 Admitting CTAP: Large infectious process centered around the lower sacrum and coccyx, also involving the right ischium with evidence of multifocal OM. Suggestive of lower sacrum and coccyx abscess. Myositis of the right gluteus pawel muscle with intramuscular gas and fluid. Bladder wall thickened with pericystic infiltration, suspicious for cystitis. 08/24/2021 outpatient urine culture: E faecalis and MDR Pseudomonas aeruginosa. Infected sacral decubitus wound with underlying abscess/osteomyelitis: Recent debridement in [facility]--> see above Imaging--> see above Surgery on board: ~ 09/06/20-->Incision and Drainage and Debridement Sacral Tissue Down to Bone, 15cm x 11cm - Agusto Chaudhry, DO ~09/06/20 Operative cultures sent: pending results. ~ Plan to take him back to OR tomorrow CAUTI History of recurrent UTIs on chronic methenamine suppression treatment. Neurogenic bladder with suprapubic catheter in situ. Recent urine culture--> see above Admitting urine culture: Pending Patient afebrile, WBC trending down. For OR tomorrow, n.p.o. midnight. Continue to hold warfarin. Continue with daptomycin 09/06 and meropenem 09/06 Infectious disease consulted, await final culture results. #. History of DVT Patient on Coumadin, INR therapeutic at admission, IVC filter placed 11 years ago per patient. Patient received vitamin K to bring down INR for preparation for OT. Patient also received 4 units of FFP due to elevation in his APTT prior to the OR. Resume once bleeding risk sustained minimal/negligible as per surgery postoperative evaluation. #. Chronic anemia Baseline hemoglobin around 7 as of 08/2021 Admitting hemoglobin of 8.4 I&D 09/06--> Hb dropped to 6.6---> status post 1 unit PRBC. Hemoglobin stable above 7.5 currently. #. Other chronic medical condition: HTN, HLD, DM2 DM w/ suboptimal control as of recent hemoglobin A1c of 8.8 last July, Hold antihypertensive for concerns of hypotension from sepsis/postop. Resume when able. Resume other meds when able. #DVT prophylaxis: SCDs if INR less than 2 while Coumadin on hold IV Heparin/Coumadin bridge Rx once bleeding risk is deemed minimal/negligible as per Surgery postop eval Full code Continue to hold warfarin, send follow-up hemoglobin after surgery for tomorrow afternoon. Patient's Ms. Rody Rodriguez, contact #[phone]. Disposition: PT/OT, CM to assist with DC planning. DC time currently uncertain. Admission and Anticipated Discharge Date Admission Date: September 06, 2021 Subjective Patient was lying in bed, on room air, NAD, no new acute events overnight. Patient reports eating eating okay. Patient reports low back pain under control. No new interval developments. Patient denies fever/headache/chills/chest pain/palpitations/belly pain/other review of symptoms. Physical Exam Physical Exam: GENERAL: Alert and oriented x3. NAD, on RA HEENT: No pallor, no icterus. Pupils equal, round and reactive to light. Oral mucosa moist. NECK: No JVD, no neck masses. HEART: S1 and S2 heard. Regular rate and rhythm. No murmur, no gallop. RESPIRATORY SYSTEM: Normal AP diameter. No accessory muscle use. No wheezing, no crackles. ABDOMEN: Soft, bowel sounds present, nontender, no distention. Left ostomy bag with brown fecal collection with no blood. Suprapubic catheter with no erythema/tenderness around the port of entry. CENTRAL NERVOUS SYSTEM: No facial droop. Speech is clear. Obeys simple commands. 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 [Patient incomplete quadriplegic]. EXTREMITIES: No edema, no erythema seen. Back: extensive decubitus wound per documentation, difficult to manipulate the patient. Results & Data Results & Data ([facility]) Vital Signs (Past 12 Hours) Vital Signs Temp Pulse Pulse Resp BP Pulse Ox Pulse Ox 09/07/21 08:00 83 09/07/21 07:44 36.4 C L 79 17 127/77 98 09/07/21 04:57 36.3 C L 74 17 83/52 L 96 09/07/21 04:14 97 09/07/21 02:14 79 09/07/21 00:55 88/53 L
[2021-09-07] MEDS: CYCLOBENZAPRINE HCL 5 MG TAB PO SCH (21:27)
[2021-09-07] MEDS: HYOSCYAMINE SULFATE 0.125 MG TAB PO SCH (21:29)
[2021-09-08] MEDS: MEROPENEM 500 MG in SYRINGE 0 ML IV SCH ×5 (00:39→23:39)
[2021-09-08] MEDS: DAPTOmycin 650 MG in SYRINGE 0 ML IV SCH (05:57)
[2021-09-08 07:38] LABS: Hemoglobin 7.9 g/dL (14.0-18.0); Mean Corpuscular Hemoglobin 27.7 pg (25-34); Mean Corpuscular Hgb Conc 30.4 g/dL (32-36); Mean Corpuscular Volume 91.2 fL (80-100); Mean Platelet Volume 8.2 fL (7.4-10.4); Platelet Count 338 K/uL (130-400); RDW Coefficient of Variation 18.9 % (11.5-14.5); RDW Standard Deviation 63.2 fL (36.4-46.3); Red Blood Count 2.85 M/uL (4.7-6.1); White Blood Count 12.27 K/uL (4.8-10.8)
[2021-09-08] MEDS ORDERED: MIDAZOLAM HCL 1 MG/ML 2ML VIAL ONE ×2 (08:21→09:30)
[2021-09-08] MEDS ORDERED: KETAMINE 50 MG/5 ML SYRINGE ONE (08:21)
[2021-09-08] MEDS ORDERED: fentaNYL citrate 100 MCG/2 ML VIAL ONE (08:21)
--- NOTE | 2021-09-08 08:31 | History & Physical Bridge Note ---
Date of Service September 08, 2021 History & Physical Bridge Note I have examined the patient, reviewed the History & Physical and in the interval since the performance of the History & Physical I have noted the following changes of clinical significance: no changes noted
[2021-09-08] MEDS ORDERED: fentaNYL citrate 100 MCG/2 ML VIAL IV PRN (08:36)
[2021-09-08] MEDS ORDERED: PHENYLEPHRINE 100MCG/ML 5ML SYR IV PRN (08:36)
[2021-09-08] MEDS ORDERED: ePHEDrine sulfate 50 MG/ML AMP IV PRN (08:36)
[2021-09-08] MEDS ORDERED: ONDANSETRON INJ 2 MG/ML 2 ML VIAL IV PRN (08:36)
[2021-09-08] MEDS ORDERED: LABETALOL HCL IV 5 MG/ML 20ML IV PRN (08:36)
[2021-09-08] MEDS ORDERED: ATROPINE SULFATE 0.1 MG/ML 10ML SYR IV PRN (08:36)
--- NOTE | 2021-09-08 08:38 | Anesthesiology Consultation ---
Date of Service September 08, 2021 Assessment & Plan (1) Encounter for pre-operative examination: Chart Review Chart Review: Acceptable Risk for Surgery and Patient NOT seen in Pre Admission Testing Consults Requested none History Surgery Operation Date: 09/06/21 12:00 Proposed Procedures p Incision and Drainage General - Agusto Chaudhry DO Operation Date: 09/08/21 07:00 Proposed Procedures p Incision and Drainage Sacral Decubitus - Agusto Chaudhry DO Operation Date: 09/08/21 08:00 Proposed Procedures p Incision and Drainage General - Agusto Chaudhry DO Height/Weight Height: 5 ft 11 in Weight: 157.4 kg Allergies Allergy/AdvReac Type Severity Reaction Status Date / Time codeine Allergy Severe THROAT Verified 09/08/21 08:34 SWELLS latex Allergy Intermediate welts Verified 09/08/21 08:34 piperacillin Allergy Intermediate RASH Verified 09/08/21 08:34 Sulfa (Sulfonamide Allergy Intermediate HIVES Verified 09/08/21 08:34 Antibiotics) tazobactam Allergy Intermediate RASH Verified 09/08/21 08:34 aztreonam Allergy Unknown unknown Verified 09/08/21 08:34 metoclopramide [From Reglan] AdvReac Mild lethargy Verified 09/08/21 08:34 Medications Home Medications Medication Instructions Recorded Confirmed Last Taken allopurinol 100 mg tablet 100 mg PO BID 05/07/18 09/05/21 09/05/21 ferrous gluconate 324 mg (38 mg 324 mg PO QAM 05/07/18 09/05/21 09/05/21 iron) tablet furosemide 40 mg tablet 40 mg PO BID 05/07/18 09/05/21 09/05/21 gabapentin 800 mg tablet 800 mg PO BID 05/07/18 09/05/21 09/05/21 magnesium oxide 400 mg (241.3 mg 400 mg PO BID 05/07/18 09/05/21 09/05/21 12:00 magnesium) tablet multivitamin 1 tab PO QAM 05/07/18 09/05/21 09/05/21 pantoprazole 40 mg tablet,delayed 40 mg PO QAM 05/07/18 09/05/21 09/05/21 release ropinirole 1 mg tablet 1 mg PO QID 05/07/18 09/05/21 09/05/21 18:00 escitalopram oxalate 20 mg tablet 20 mg PO QAM tab 08/21/19 09/05/21 09/05/21 insulin human U-100 NPH-regulr 56 unit SUBCUT BID 08/21/19 09/05/21 09/05/21 70-30 mix 100 unit/mL subcutaneous susp (Novolin 70/30 U-100 Insulin) warfarin 5 mg tablet 5 mg PO 3XWK tab 08/21/19 09/05/21 09/04/21 atorvastatin 40 mg tablet 40 mg PO HS 08/24/19 09/05/21 09/04/21 baclofen 10 mg tablet 10 mg PO QID 09/22/19 09/05/21 09/05/21 18:00 cyclobenzaprine 10 mg tablet 15 mg PO HS 03/01/20 09/05/21 09/04/21 hyoscyamine sulfate 0.125 mg tablet 0.125 mg PO QPM 03/01/20 09/05/21 09/05/21 potassium chloride 10 mEq 10 meq PO BIDM 03/01/20 09/05/21 09/05/21 tablet,extended release spironolactone 25 mg tablet 25 mg PO QAM 03/01/20 09/05/21 09/05/21 (Aldactone) tizanidine 4 mg tablet 4 mg PO BID 03/01/20 09/05/21 09/05/21 12:00 Medical Marijuana See Rx Instructions .ROUTE .COMPLEX 03/26/20 09/05/21 09/05/21 methenamine hippurate 1 gram tablet 1 g PO BID 30 Days #60 tab 04/02/20 09/05/21 09/05/21 12:00 ascorbic acid (vitamin C) 500 mg 250 mg PO TID 12/03/20 09/05/21 09/05/21 tablet (Vitamin C) famotidine 20 mg tablet (Acid 20 mg PO BID 12/03/20 09/05/21 09/05/21 Apartment Coordinator (famotidine)) zinc sulfate 50 mg zinc (220 mg) 50 mg PO QDL 12/03/20 09/05/21 09/05/21 capsule Lactobacillus acidoph-L.bulgaricus 1 tab PO BID 01/03/21 09/05/21 09/05/21 1 million cell tablet (Floranex) acetaminophen 500 mg capsule 1,000 mg PO Q6H PRN 01/03/21 09/05/21 12/27/20 12:00 bethanechol chloride 5 mg tablet 5 mg PO TID 01/03/21 09/05/21 09/05/21 18:00 insulin regular human 100 unit/mL 1 sliding scale dose SUBCUT 01/03/21 09/05/21 09/05/21 injection solution (Novolin R USEASDIRECTD Regular U-100 Insulin) mecobalamin-levomefolate 1 tab PO BID 01/03/21 09/05/21 09/05/21 calcium-pyridoxal phos 3 mg-35 mg-2 mg tablet (G-Stktmn-R4-B12) menthol 0.44 %-zinc oxide 20.6 % 1 applic TOPICAL QID PRN 01/03/21 09/05/21 01/09/21 23:55 topical ointment (Calmoseptine) methenamin 81.6 mg-hyoscyam 0.12 1 tab PO QPM 01/03/21 09/05/21 09/05/21 mg-methblue 10.8 qd-cu-buxttry tablet nystatin 100,000 unit/gram topical 1 applic TOPICAL BID PRN 01/03/21 09/05/21 01/10/21 08:00 powder nystatin-triamcinolone 100,000 1 applic TOPICAL BID 01/03/21 09/05/21 09/05/21 unit/g-0.1 % topical cream triamcinolone acetonide 0.1 % 1 applic TOPICAL BID PRN 01/03/21 09/05/21 01/10/21 08:30 topical cream irbesartan 75 mg tablet 75 mg PO DAILY 06/02/21 09/05/21 09/05/21 warfarin 7.5 mg tablet 7.5 mg PO 4XWK 06/02/21 09/05/21 09/03/21 metformin 1,000 mg tablet 1,000 mg PO BIDM 06/14/21 09/05/21 09/05/21 cefdinir 300 mg capsule 300 mg PO BID 06/23/21 09/05/21 09/05/21 Active Medications Generic Name Dose Route Start Last Admin Trade Name Freq PRN Reason Stop Dose Admin Allopurinol 100 mg 09/06/21 09:00 09/07/21 21:26 Allopurinol 100 Mg Tab PO 10/06/21 08:59 100 mg BID JO Administration Baclofen 10 mg 09/06/21 09:00 09/07/21 21:26 Baclofen 10 Mg Tab PO 10/06/21 08:59 10 mg QID JO Administration Cyclobenzaprine HCl 15 mg 09/06/21 21:00 09/07/21 21:27 Cyclobenzaprine Hcl 5 Mg Tab PO 10/06/21 20:59 15 mg HS JO Administration Escitalopram Oxalate 20 mg 09/06/21 09:00 09/07/21 08:51 Escitalopram Oxalate 20 Mg Tab PO 10/06/21 08:59 20 mg QAM JO Administration Famotidine 20 mg 09/06/21 09:00 09/07/21 21:28 Famotidine 20 Mg Tab PO 10/06/21 08:59 20 mg BID JO Administration Ferrous Gluconate 324 mg 09/06/21 09:00 09/07/21 08:51 Ferrous Gluconate 324 Mg Tab PO 10/06/21 08:59 324 mg QAM JO Administration Gabapentin 800 mg 09/06/21 09:00 09/07/21 21:28 Gabapentin 800 Mg Tab PO 10/06/21 08:59 800 mg BID JO Administration Hyoscyamine 0.125 mg 09/06/21 21:00 09/07/21 21:29 Hyoscyamine Sulfate 0.125 Mg Tab PO 10/06/21 20:59 0.125 mg QPM JO Administration Daptomycin 650 mg/ Syringe 13 mls @ 6.5 mls/min 09/06/21 06:00 09/08/21 05:57 IV 10/18/21 05:59 6.5 mls/min Q24H JO Administration Protocol Meropenem 500 mg/ Syringe 10 mls @ 2 mls/min 09/06/21 06:00 09/08/21 05:57 IV 10/18/21 05:59 2 mls/min Q6H JO Administration Protocol Insulin Aspart 0 units 09/07/21 11:30 09/07/21 21:41 Insulin Aspart Per Unit SC 10/06/21 04:59 3 units ACHS JO Administration Insulin Glargine 40 units 09/07/21 09:00 09/07/21 21:39 Insulin Glargine Solostar 100 Units/Ml 3 Ml Pen SC 10/07/21 08:59 40 units BID JO Administration Irbesartan 75 mg 09/06/21 09:00 09/06/21 08:33 Irbesartan 75 Mg Tab PO 10/06/21 08:59 75 mg DAILY JO Administration Ketorolac Tromethamine 15 mg 09/06/21 04:14 09/06/21 22:54 Ketorolac Tromethamine 15 Mg/Ml Vial IV 09/11/21 04:13 15 mg Q6H PRN Administration Pain Lactobacillus Acidoph/Casei/Rhamnos 2 cap 09/06/21 09:00 09/07/21 08:51 Advanced Probiotic 1250 Mg Capsule PO 10/06/21 08:59 2 cap DAILY JO Administration Magnesium Oxide 400 mg 09/06/21 09:00 09/07/21 21:29 Magnesium Oxide 400 Mg Tab PO 10/06/21 08:59 400 mg BID JO Administration Miscellaneous 1 ea 09/06/21 08:00 09/08/21 00:35 Bethanechol~Order Awaiting Action N/A 10/06/21 07:59 Not Given QS JO Multivitamins 1 tab 09/06/21 09:00 09/07/21 08:53 Multivitamin Tab PO 10/06/21 08:59 1 tab QAM JO Administration Pantoprazole Sodium 40 mg 09/06/21 09:00 09/07/21 08:51 Pantoprazole 40 Mg Tab PO 10/06/21 08:59 40 mg QAM JO Administration Tizanidine HCl 4 mg 09/06/21 09:00 09/07/21 21:30 Tizanidine Hcl 4 Mg Tablet PO 10/06/21 08:59 4 mg BID JO Administration NPO Date Last Intake of Fluids: 09/06/21 Time Last Intake of Fluids: 08:00 Last Intake of Fluids Comment: sip of water with pills Date Last Intake of Solids: 09/04/21 Time Last Intake of Solids: 20:00 Past Medical History Medical History Anemia Asymptomatic bacteriuria Clostridium difficile infection (Unknown) CVA (cerebral vascular accident) DM type 2 (diabetes mellitus, type 2) Dyslipidemia Dysphagia Fever History of blood clots History of DVT (deep vein thrombosis) Hypertension Hypotension Ileus Kidney disease Leukocytosis Major depressive disorder, recurrent Obesity Occluded PICC line Positive urine culture Quadriplegia BRAIN INJURY 11 YRS AGO Seizure SIRS (systemic inflammatory response syndrome) Sleep apnea (Unknown) OXYGEN 2L/MIN NC HS Syncope 57 year old with know quadriplegia and new onset syncope with change in position UTI (urinary tract infection) RECENT [facility] ADMISION-D/C 12/06/20 Past Family History Family History Mother No pertinent family history Family history of diabetes mellitus Father Family hx of colon cancer Past Surgical History Surgical History History of colonoscopy 2010 History of open reduction and internal fixation (ORIF) procedure LEFT FEMUR Insertion of inferior vena caval filter (Unknown) Lithotripsy (Unknown) "laser lithotripsy left ureteral stone 03/17/11 " S/P debridement (09/06/21) Incision and Drainage and Debridement Sacral Tissue Down to Bone, 15cm x 11cm - Agusto Chaudhry DO 09/06/21 S/P knee surgery S/P tonsillectomy Suprapubic cystostomy (Unknown) IN PLACE Social History Smoking Status: Unknown if ever smoked Do You Dip or Chew Tobacco: No Hx Alcohol Use: No Hx Substance Use: No substance use type: marijuana Substance Use Type Other:: medical card at home with pt . Last Used Substance: Days (ago) Physical Exam Vital Signs Last Vital Signs Temp 37.4 C 09/08/21 07:01 Pulse 120 H 09/08/21 07:01 Resp 20 09/08/21 07:01 BP 119/71 09/08/21 07:01 Pulse Ox 98 09/08/21 07:01 Constitutional + morbidly obese ENMT Mouth: + dentition abnormality and + poor dentition; no TMJ abnormality Thyromental Distance: > or= 3.5 Finger Breadths Mallampati Class: III Neck normal visual inspection, + thick neck and + facial hair (facial scruff) Respiratory normal respiratory effort Auscultation: lungs clear to auscultation bilaterally Cardiovascular Rate/Rhythm: regular rate and regular rhythm Musculoskeletal Spine: + limited cervical ROM Extremities: + limited ROM of extremities Neurologic moves all extremities (weakness in upper and lower extremities) Motor/Sensory: + sensory deficit (intermittent lower extremity and lower extremity) Psychiatric Orientation: alert and oriented x 3 Testing Laboratory Results 09/08/21 07:23 PT 15.4 Seconds (9.0-12.0) H 09/06/21 08:08 INR 1.6 (0.9-1.1) H 09/06/21 08:08 APTT 46.6 Seconds (21.0-31.0) H* 09/06/21 08:08 Urine Color Yellow 09/06/21 00:40 Urine Appearance Cloudy (Clear) A 09/06/21 00:40 Urine pH 5.0 (4.5-7.5) 09/06/21 00:40 Ur Specific [place] 1.017 (1.000-1.030) 09/06/21 00:40 Urine Protein Trace (Negative) H 09/06/21 00:40 Urine Glucose (UA) Negative (Negative) 09/06/21 00:40 Urine Ketones Trace (Negative) H 09/06/21 00:40 Urine Nitrite Negative (Negative) 09/06/21 00:40 Ur Leukocyte Esterase 3+ (Negative) H 09/06/21 00:40 Urine WBC (Auto) >30 /hpf (0-5) H 09/06/21 00:40 Urine RBC (Auto) 0-4 /hpf (0-4) 09/06/21 00:40 U Hyaline Cast (Auto) 1-5 /lpf (0-5) 09/06/21 00:40 U Epithel Cells (Auto) >30 /lpf (0-5) H 09/06/21 00:40 Urine Bacteria (Auto) Negative (Negative) 09/06/21 00:40 Blood Type A Positive 09/06/21 02:59 Antibody Screen NEGATIVE 09/06/21 02:59 09/06/21 13:15 Gram Stain - Final Buttock Aerobic and Anaerobic Culture - Preliminary Enterococcus faecium VRE 09/06/21 13:15 Gram Stain - Final Sacrum Aerobic and Anaerobic Culture - Preliminary Enterococcus faecium VRE 09/06/21 00:06 Aerobic Blood Culture - Preliminary Blood No growth in Aerobic bottle after 48 hours. Anaerobic Blood Culture - Preliminary No growth in Anaerobic bottle after 48 hours. 09/05/21 23:05 Aerobic Blood Culture - Preliminary Blood No growth in Aerobic bottle after 48 hours. Anaerobic Blood Culture - Preliminary No growth in Anaerobic bottle after 48 hours. 09/05/21 Unknown Gram Stain - Final Buttock Deep Wound Culture - Preliminary Pin-point growth present, reincubating. 09/06/21 00:40 Urine Culture - Preliminary Urine,Clean Catch Pin-point growth present, reincubating. 09/06/21 13:15 Gram Stain - Final Sacrum 09/08/21 09/08/21 09/07/21 08:27 07:31 20:43 POC Glucose 165 H 185 H 204 H 09/07/21 20:40 POC Glucose 226 H Electrocardiogram Date: 09/05/21 Findings: + ST @ (114) nonspecific intraventricular conduction delay, T wave abnormality consider anterior ischemia Chest X-Ray Date: 09/05/21 SINGLE VIEW CHEST CLINICAL HISTORY: Sepsis FINDINGS: An AP, portable, semierect chest radiograph is compared to study dated 06/14/2021 and correlated with chest CT dated 06/18/2021. The examination is degraded by portable technique, apical lordotic positioning, and patient rotation. The heart is mildly enlarged. The pulmonary vasculature is noncongested. There is bibasilar atelectasis. The lungs and pleural spaces are otherwise clear. No pneumothorax is seen. The skeletal structures are osteopenic. Cerclage wires project over the left lower ribs. IMPRESSION: No acute cardiopulmonary abnormality. ACT 112: Negative or not required by law. Electronically signed by: José Wise M.D. 09/05/2021 11:45 PM Dictated:09/05/21 [id number]
[2021-09-08 09:28] LABS: BUN Creatinine Ratio 18.9 (10-20); Calcium 8.9 mg/dl (8.5-10.1); Creatinine Clr Calc Pharmacy 126.2 ml/min; Est GFR (Non-African American) 87.2 ml/min
[2021-09-08] MEDS ORDERED: DAKIN'S SOLN 0.125% QUARTER STRENGTH 473 ML BTL EXT PRN (09:30)
[2021-09-08] MEDS ORDERED: ONDANSETRON INJ 2 MG/ML 2 ML VIAL ONE (09:43)
--- NOTE | 2021-09-08 10:16 | Post Operative Brief Note ---
PG Immediate Post Op with CF Date of Surgery September 08, 2021 Pre & Post Diagnosis Operation Date: 09/08/21 07:00 Pre-Op Diagnosis: Sacral decubitis, stage 4 Post-Op Diagnosis: Sacral decubitis, stage 4 I identified the patient and participated in the time-out.: Yes Procedure Operation Date: 09/08/21 07:00 Actual Procedures p Excisional Debridement of Sacral Decubitus Ulcer, [id number] Down to Bone(Not Applicable) - Agusto Chaudhry DO Surgeon Agusto Chaudhry DO Stone Layout Marker Ranjana Yadav PA-C Estimated Blood Loss 20 Findings Consistent with Post-Op Diagnosis Specimens Specimen Description: No specimen per surgeon. Drains Martinez Catheter Anesthesia Type MAC Complications none Disposition Disposition: Recovery Room
--- NOTE | 2021-09-08 10:19 | Operative Report ---
PG Post Operative Report Pre & Post Diagnosis Operation Date: 09/08/21 07:00 Pre-Op Diagnosis: Sacral decubitis, stage 4 Post-Op Diagnosis: Sacral decubitis, stage 4 I identified the patient and participated in the time-out.: Yes Procedure Operation Date: 09/08/21 07:00 Actual Procedures p Excisional Debridement of Sacral Decubitus Ulcer, [id number] Down to Bone(Not Applicable) - Agusto Chaudhry DO Surgeon Agusto Chaudhry DO Real Estate Accountant Emmanuel Friedman PA-C Estimated Blood Loss 20 Findings See Below Necrotic/devitalized right gluteal muscle and subcutaneous tissue Specimens None Drains None Anesthesia Type MAC Complications none Disposition Disposition: Recovery Room Indications 60 yo s/p incision, drainage and debridement of sacral ulcer, now with need for second look and repeat debridement Description of Procedure The patient was brought to the operating room and underwent MAC anesthesia without issue. At this time the patient was placed in the prone jackknife position. The bilateral buttocks and lower back were prepped and draped in the usual sterile fashion. Appropriate pre-operative antibiotics were administered. A timeout was called. The procedure was verified as Excisional debridement of sacral decubitus ulcer. Surgical, anesthesia and nursing teams agreed and the procedure was begun. The sacral and right buttock wound was explored and there Was necrotic right gluteal muscle that was excised sharply using electrocautery. Using a rongeur, a portion of the exposed sacrum was debrided. The wound was irrigated with Dakin's solution until clear. At this time hemostasis was achieved using electrocautery. Hemostasis was complete. The wound measured 15 cm x 11 cm. At this time the incision was packed with Dakin's wet-to-dry Kerlix and a sterile dressing was applied. At this time the patient was awakened from anesthesia and transported to PACU in stable condition. The physician banking assistant was present and scrubbed for the entire case. She was essential in positioning, prepping and draping the patient, retraction and ex posure, placement of the dressing. I attest to the content of the Intraoperative Record and any orders documented therein. Any exceptions are noted below.
--- NOTE | 2021-09-08 10:40 | Anesthesiology Progress Note ---
Date of Service September 08, 2021 Anesthesia Post Procedure Vital Signs Vital Signs: Temp Pulse Pulse Pulse Resp BP Pulse Ox 09/08/21 10:35 36.4 C L 87 18 158/78 H 99 09/08/21 10:25 88 18 175/90 H 98 09/08/21 10:17 36.2 C L 120 H 20 191/86 H 98 09/08/21 08:35 37.2 C 103 H 20 117/68 94 09/08/21 07:01 37.4 C 120 H 20 119/71 98 09/08/21 03:44 37.3 C 90 22 129/69 97 09/08/21 00:13 37.4 C 111 H 22 133/55 L 91 09/07/21 20:00 36.9 C 103 H 19 109/67 94 09/07/21 16:00 85 09/07/21 15:15 36.7 C 84 19 95/60 L 91 Pain Intensity Lower Back: Pain Intensity: 3 Transfer of Care Handoff Completed per policy Notes Mental Status: alert / awake / arousable Patient Amnestic to Procedure: Yes Nausea / Vomiting: adequately controlled Pain: adequately controlled Airway Patency, RR, SpO2: stable & adequate BP & HR: stable & adequate Hydration State: stable & adequate Anesthetic Complications: no major complications apparent and Pt Satisfied with anesthetic care
[2021-09-08] MEDS: INSULIN GLARGINE SOLOSTAR 100 UNITS/ML 3 ML PEN SC SCH ×2 (11:40→20:58)
[2021-09-08] MEDS: INSULIN ASPART PER UNIT SC SCH ×4 (11:41→20:58)
[2021-09-08] MEDS: MULTIVITAMIN TAB PO SCH (11:42)
[2021-09-08] MEDS: FERROUS GLUCONATE 324 MG TAB PO SCH (11:42)
[2021-09-08] MEDS: ADVANCED PROBIOTIC 1250 MG CAPSULE PO SCH (11:42)
[2021-09-08] MEDS: PANTOprazole 40 MG TAB PO SCH (11:42)
[2021-09-08] MEDS: tiZANidine HCL 4 MG TABLET PO SCH ×2 (11:43→20:58)
[2021-09-08] MEDS: GABAPENTIN 800 MG TAB PO SCH ×2 (11:43→20:59)
[2021-09-08] MEDS: ESCITALOPRAM OXALATE 20 MG TAB PO SCH (11:43)
[2021-09-08] MEDS: allopurinoL 100 MG TAB PO SCH ×2 (11:44→21:00)
[2021-09-08] MEDS: FAMOTIDINE 20 MG TAB PO SCH ×2 (11:44→20:59)
[2021-09-08] MEDS: MAGNESIUM OXIDE 400 MG TAB PO SCH ×2 (11:45→20:59)
[2021-09-08] MEDS: BACLOFEN 10 MG TAB PO SCH ×4 (11:45→20:58)
--- NOTE | 2021-09-08 15:29 | Hospitalist Progress Note ---
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 Purulent drainage from sacral wound soaking dressings as per his . Patient with loose stools as per . No headache/chest pain/SOA/abdominal pain. Pt non smoker and no chronic intake of alcohols. Pt on 2L O2 at night at home. Of note, patient was in [facility] August 24-2020--> sacral decubitus s/p debridement where wound culture grew MDR Pseudomonas and Enterococcus faecalis. Per , debridement not deep enough due to elevated INR at the time of surgery per Surgeon. Patient had concerns about draining wounds with intermittent bleeding at time of discharge from [facility] 2 days ago. He is being managed for the following: #. Severe sepsis #. Infected sacral decubitus wound with OM/abscess #. 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 Also he had loose stool in his ostomy bag [admitting C. difficile negative]. Admitting vitals: 38.6C, 120 bpm, room air with admitting lactate of 2.9 Admitting WBC 22.73K, admitting procalcitonin 0.79 Admitting CTAP: Large infectious process centered around the lower sacrum and coccyx, also involving the right ischium with evidence of multifocal OM. Suggestive of lower sacrum and coccyx abscess. Myositis of the right gluteus pawel muscle with intramuscular gas and fluid. Bladder wall thickened with pericystic infiltration, suspicious for cystitis. 08/24/2021 outpatient urine culture: E faecalis and MDR Pseudomonas aeruginosa. Infected sacral decubitus wound with underlying abscess/osteomyelitis: Recent debridement in [facility]--> see above Imaging--> see above Surgery on board: ~ 09/06/21-->Incision and Drainage and Debridement Sacral Tissue Down to Bone, 15cm x 11cm - Agusto Chaudhry DO ~ 09/06/21 Operative cultures sent: 09/06 buttock culture: E. Faecium VRE, Taina albicans/dubliniensis, GNB. Sensitivity pending, E.faecium sensitive to Dapto 09/06 sacrum wound culture: E Faecium VRE, Taina albicans/dubliniensis ~ 09/08/21 ---> Revision I&D of the sacral decubitus ulcer by Agusto Weeks, CAUTI History of recurrent UTIs on chronic methenamine suppression treatment. Neurogenic bladder with suprapubic catheter in situ. Recent urine culture--> see above Admitting urine culture: Yeast not Taina albicans/dub Patient afebrile, WBC trending down. Continue to hold warfarin --> await surgery recommendation for anticoagulation. Continue with daptomycin 09/06 and meropenem 09/06 Infectious disease consulted, await final culture results. #. History of DVT Patient on Coumadin, INR therapeutic at admission, IVC filter placed 11 years ago per patient. Patient received vitamin K to bring down INR for preparation for OT. Patient also received 4 units of FFP due to elevation in his APTT prior to the OR. Resume once bleeding risk sustained minimal/negligible as per surgery postoperative evaluation. SCDs while off anticoagulation. #. Chronic anemia Baseline hemoglobin around 7 as of 08/2021 Admitting hemoglobin of 8.4 I&D 09/06--> Hb dropped to 6.6---> status post 1 unit PRBC. Hemoglobin stable around 7.5 currently. Monitor hemoglobin daily. #. Other chronic medical condition: HTN, HLD, DM2 DM w/ suboptimal control as of recent hemoglobin A1c of 8.8 last July, Hold antihypertensive for concerns of hypotension from sepsis/postop. Resume when able. Resume other meds when able. #DVT prophylaxis: SCDs if INR less than 2 while Coumadin on hold IV Heparin/Coumadin bridge Rx once bleeding risk is deemed minimal/negligible as per Surgery postop eval Full code Continue to hold warfarin, send follow-up hemoglobin after surgery for tomorrow afternoon. Patient's Ms. Rody Rodriguez, contact #[phone]. Disposition: PT/OT, CM to assist with DC planning. DC time currently uncertain. To be seen by infectious disease. Continue telemetry today, if hemoglobin is stable, can transition to MedSurg tomorrow. Admission and Anticipated Discharge Date Admission Date: September 06, 2021 Subjective Patient was lying in bed, drowsy, recently came from revision I&D of his sacral wound, on 2 L nasal cannula oxygen, denies any pain, reports no acute events overnight. Patient denies any fever/headache/chills/chest pain/palpitation/other review of symptoms. Patient was n.p.o. in the morning, can resume his diet as tolerated after the surgery. Physical Exam Physical Exam: GENERAL: Alert and oriented x3. NAD, on RA HEENT: No pallor, no icterus. Pupils equal, round and reactive to light. Oral mucosa moist. NECK: No JVD, no neck masses. HEART: S1 and S2 heard. Regular rate and rhythm. No murmur, no gallop. RESPIRATORY SYSTEM: Normal AP diameter. No accessory muscle use. No wheezing, no crackles. ABDOMEN: Soft, bowel sounds present, nontender, no distention. Left ostomy bag with brown fecal collection with no blood. Suprapubic catheter with no erythema/tenderness around the port of entry. CENTRAL NERVOUS SYSTEM: No facial droop. Speech is clear. Obeys simple commands. Weak BUE with weak receptionist telephone operator, paralyzed BLE. [Patient incomplete quadriplegic]. EXTREMITIES: No edema, no erythema seen. Back: extensive decubitus wound per documentation, difficult to manipulate the patient. Results & Data Results & Data ([facility]) Vital Signs (Past 12 Hours) Vital Signs Temp Pulse Pulse Resp BP Pulse Ox 09/08/21 15:13 36.6 C 72 20 90/51 L 98 09/08/21 12:22 104 H 14 116/79 97 09/08/21 11:40 36.6 C 98 H 14 149/77 H 98 09/08/21 11:15 106 H 13 99/58 L 99 09/08/21 11:00 102 H 18 104/65 99 09/08/21 10:45 95 H 18 133/70 99 09/08/21 10:35 36.4 C L 87 18 158/78 H 99 09/08/21 10:25 88 18 175/90 H 98 09/08/21 10:17 36.2 C L 120 H 20 191/86 H 98 09/08/21 08:35 37.2 C 103 H 20 117/68 94 09/08/21 07:01 37.4 C 120 H 20 119/71 98 09/08/21 03:44 37.3 C 90 22 129/69 97
[2021-09-08 16:32] LABS: Hematocrit (blood only) 24.3 % (42-52); Hemoglobin 7.3 g/dL (14.0-18.0)
[2021-09-08] MEDS: HYOSCYAMINE SULFATE 0.125 MG TAB PO SCH (20:59)
[2021-09-08] MEDS: CYCLOBENZAPRINE HCL 5 MG TAB PO SCH (21:00)
[2021-09-09] MEDS: MEROPENEM 500 MG in SYRINGE 0 ML IV SCH ×2 (06:19→12:20)
[2021-09-09] MEDS: DAPTOmycin 650 MG in SYRINGE 0 ML IV SCH (06:19)
[2021-09-09] MEDS: INSULIN ASPART PER UNIT SC SCH ×4 (07:39→20:54)
[2021-09-09 08:31] LABS: Hemoglobin 7.9 g/dL (14.0-18.0); Mean Corpuscular Hemoglobin 28.5 pg (25-34); Mean Corpuscular Hgb Conc 30.4 g/dL (32-36); Mean Corpuscular Volume 93.9 fL (80-100); Mean Platelet Volume 8.8 fL (7.4-10.4); Platelet Count 342 K/uL (130-400); RDW Coefficient of Variation 18.8 % (11.5-14.5); RDW Standard Deviation 65.2 fL (36.4-46.3); Red Blood Count 2.77 M/uL (4.7-6.1)
[2021-09-09] MEDS: GABAPENTIN 800 MG TAB PO SCH ×2 (08:43→20:51)
[2021-09-09] MEDS: MAGNESIUM OXIDE 400 MG TAB PO SCH ×2 (08:43→20:51)
[2021-09-09] MEDS: tiZANidine HCL 4 MG TABLET PO SCH ×2 (08:43→20:50)
[2021-09-09] MEDS: BACLOFEN 10 MG TAB PO SCH ×4 (08:43→20:58)
[2021-09-09] MEDS: FERROUS GLUCONATE 324 MG TAB PO SCH (08:43)
[2021-09-09] MEDS: ACETAMINOPHEN 325 MG TAB PO PRN (08:44)
[2021-09-09] MEDS: FAMOTIDINE 20 MG TAB PO SCH ×2 (08:44→20:52)
[2021-09-09] MEDS: allopurinoL 100 MG TAB PO SCH ×2 (08:44→20:51)
[2021-09-09] MEDS: INSULIN GLARGINE SOLOSTAR 100 UNITS/ML 3 ML PEN SC SCH ×2 (08:44→20:52)
[2021-09-09] MEDS: ADVANCED PROBIOTIC 1250 MG CAPSULE PO SCH (08:44)
[2021-09-09] MEDS: MULTIVITAMIN TAB PO SCH (08:44)
[2021-09-09] MEDS: ESCITALOPRAM OXALATE 20 MG TAB PO SCH (08:45)
[2021-09-09] MEDS: PANTOprazole 40 MG TAB PO SCH (08:45)
[2021-09-09 08:48] LABS: BUN Creatinine Ratio 17.5 (10-20); Calcium 8.7 mg/dl (8.5-10.1); Creatinine Clr Calc Pharmacy 132.4 ml/min; Est GFR (African American) 105.1 ml/min; Est GFR (Non-African American) 90.6 ml/min; Potassium 4.1 mmol/L (3.5-5.1)
--- NOTE | 2021-09-09 10:04 | Surgery Progress Note ---
Date of Service September 09, 2021 Assessment & Plan (1) Sacral decubitus ulcer, stage IV: Plan: POD#1 sacral wound debridement, POD#3 initial sacral wound debridement Pt doing well. WBC 10. Hbg 7.9 Dressing intact. Will have wound care evaluate today for dressing change If wound looks well, can consider resuming coumadin this evening Continue IV abx, recommendations have been made by ID Will need f/u in wound care clinic Admission and Anticipated Discharge Date Admission Date: September 06, 2021 Supervising Physician Co-Signing Physician Notes I personally saw and evaluated the patient with Ranjana Yadav PA-C and agree with the assessment and plan. 60-year-old male with sacral and right buttock decubitus ulcer status post debridement Wound dressing change at bedside with wound nurses The wound will likely need further operative debridement, tentatively on for September 11 If he is going to remain in the hospital longer than that I would like to delay the debridement if possible Continue antibiotics and would place the patient on an antifungal as well based on his cultures Daily wet-to-dry Dakin's dressings performed by wound care nurses Continue to hold Eliquis for now We will follow Subjective Patient says he feels well. No complaints. Physical Exam Physical Exam: awake/alert Skin: dressing intact Results & Data ([facility]) Vital Signs (Past 12 Hours) Vital Signs Temp Pulse Pulse Resp BP Pulse Ox 09/09/21 07:57 94 H 09/09/21 07:53 36.7 C 91 H 20 96/59 L 96 09/09/21 04:19 36.6 C 74 18 91/45 L 97 09/09/21 00:00 90 09/08/21 23:52 36.8 C 97 H 18 148/72 H 99 PG Care Time/CCT Total # of Minutes Spent Total Time Spent with Patient: Total time spent is greater than 50% in coordination of care (as documented) at patient's floor/unit and/or counseling patient: Coding Level of Care Code None Diagnoses Sacral decubitus ulcer, stage IV L89.154
[2021-09-09] MEDS: DAKIN'S SOLN 0.125% QUARTER STRENGTH 473 ML BTL EXT SCH (12:42)
--- NOTE | 2021-09-09 15:26 | Hospitalist Progress Note ---
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 Purulent drainage from sacral wound soaking dressings as per his . Patient with loose stools as per . No headache/chest pain/SOA/abdominal pain. Pt non smoker and no chronic intake of alcohols. Pt on 2L O2 at night at home. Of note, patient was in [facility] August 24-2020--> sacral decubitus s/p debridement where wound culture grew MDR Pseudomonas and Enterococcus faecalis. Per , debridement not deep enough due to elevated INR at the time of surgery per Surgeon. Patient had concerns about draining wounds with intermittent bleeding at time of discharge from [facility] 2 days ago. He is being managed for the following: #. Severe sepsis #. Infected sacral decubitus wound with OM/abscess #. CAUTI Patient presented with low-grade fever, lethargy and poor appetite 1 day [employer] along with purulent drainage from sacral wound soaking dressings per his . Also he had loose stool in his ostomy bag [admitting C. difficile negative]. Admitting vitals: 38.6C, 120 bpm, room air with admitting lactate of 2.9 Admitting WBC 22.73K, admitting procalcitonin 0.79 Admitting CTAP: Large infectious process centered around the lower sacrum and coccyx, also involving the right ischium with evidence of multifocal OM. Suggestive of lower sacrum and coccyx abscess. Myositis of the right gluteus pawel muscle with intramuscular gas and fluid. Bladder wall thickened with pericystic infiltration, suspicious for cystitis. 08/24/2021 outpatient urine culture: E faecalis and MDR Pseudomonas aeruginosa. Infected sacral decubitus wound with underlying abscess/osteomyelitis: Recent debridement in [facility]--> see above Imaging--> see above 09/05 Buttock Cx: Taina albicans/dubliniensis + Ps. aeru (resistant to Meropenem) Surgery on board: ~ 09/06/21-->Incision and Drainage and Debridement Sacral Tissue Down to Bone, 15cm x 11cm - Agusto Chaudhry, DO ~ 09/06/21 Operative cultures sent: 09/06 buttock culture: E. Faecium VRE, Taina albicans/dubliniensis, GNB. Sensitivity pending, E.faecium sensitive to Dapto 09/06 sacrum wound culture: E Faecium VRE, Taina albicans/dubliniensis ~ 09/08/21 ---> Revision I&D of the sacral decubitus ulcer by Agusto Weeks, DO CAUTI - likely not after C/S and ID eval History of recurrent UTIs on chronic methenamine suppression treatment. Neurogenic bladder with suprapubic catheter in situ. Recent urine culture--> see above Admitting urine culture: Yeast not Taina albicans/dub ID evaluated: Believes suprapubic catheter unlikely to not yield pathogen, since we have a source of infection, hence will not direct treatment at the urinary tract. Patient afebrile, WBC trending down. Resume warfarin per surgery, follow-up wound care clinic on Wednesday with Dr. Chaudhry for further incision and debride ment plan/discussion. Continue with daptomycin 09/06 and meropenem 09/06 --> switched to cefepime 09/09 based on C/S and upon further d/w ID on 09/09 Infectious disease evaluated the patient: Continue daptomycin, switch meropenem to cefepime, fluconazole 400 mg oral daily. During therapy, CK, CMP and CBC with differential weekly. Continue therapy for 6 weeks starting 09/06/2021. Obtain CRP weekly until 2 months after stopping therapy. Follow-up with infectious disease as an outpatient. PICC line consent obtained, will get PICC line. Continue with daptomycin and cefepime. Get baseline EKG for QTC, initiate oral fluconazole, might need to touch base with ID if QTC still prolonged on repeat EKG. #. History of DVT Patient on Coumadin, INR therapeutic at admission, IVC filter placed 11 years ago per patient. Patient received vitamin K to bring down INR for preparation for OT. Patient also received 4 units of FFP due to elevation in his APTT prior to the OR. Warfarin resumed / per surgery recommendation. Date PT/INR, continue to monitor hemoglobin. SCDs until therapeutic INR. #. Chronic anemia Baseline hemoglobin around 7 as of 08/2021 Admitting hemoglobin of 8.4 I&D 09/06--> Hb dropped to 6.6---> status post 1 unit PRBC. Hemoglobin stable around 7.5 currently. Monitor hemoglobin daily #. Other chronic medical condition: HTN, HLD, DM2 DM w/ suboptimal control as of recent hemoglobin A1c of 8.8 last July, Hold antihypertensive for concerns of hypotension from sepsis/postop. Resume when able. Resume other meds when able. #DVT prophylaxis: SCDs if INR less than 2 while Coumadin on hold IV Heparin/Coumadin bridge Rx once bleeding risk is deemed minimal/negligible as per Surgery postop eval Full code Continue to hold warfarin, send follow-up hemoglobin after surgery for tomorrow afternoon. Patient's Ms. Rody Rodriguez, contact #[phone]. Disposition: PT/OT, CM to assist with DC planning. Monitor hemoglobin on warfarin therapy, status post debridement x2. Likely DC tomorrow, will need IV antibiotics, confirm with attending in the morning. Admission and Anticipated Discharge Date Admission Date: September 06, 2021 Subjective Patient lying in bed, on room air, NAD, no new acute events overnight. Patient reports pain well controlled. Patient reports eating okay. Adequate output in his stoma bag. Patient denies fever/chills/chest pain/palpitations/belly pain/other review of symptoms. Physical Exam Physical Exam: GENERAL: Alert and oriented x3. NAD, on RA HEENT: No pallor, no icterus. Pupils equal, round and reactive to light. Oral mucosa moist. NECK: No JVD, no neck masses. HEART: S1 and S2 heard. Regular rate and rhythm. No murmur, no gallop. RESPIRATORY SYSTEM: Normal AP diameter. No accessory muscle use. No wheezing, no crackles. ABDOMEN: Soft, bowel sounds present, nontender, no distention. Left ostomy bag with brown fecal collection with no blood. Suprapubic catheter with no erythema/tenderness around the port of entry. CENTRAL NERVOUS SYSTEM: No facial droop. Speech is clear. Obeys simple commands. Weak BUE with weak senior policy advisor, paralyzed BLE. [Patient incomplete quadriplegic]. EXTREMITIES: No edema, no erythema seen. Back: extensive decubitus wound per documentation, difficult to manipulate the patient. Results & Data Results & Data ([facility]) Vital Signs (Past 12 Hours) Vital Signs Temp Pulse Pulse Resp BP Pulse Ox 09/09/21 11:41 36.5 C 81 18 94/58 L 95 09/09/21 07:57 94 H 09/09/21 07:53 36.7 C 91 H 20 96/59 L 96 09/09/21 04:19 36.6 C 74 18 91/45 L 97
[2021-09-09] MEDS ORDERED: WARFARIN SOD 5 MG TAB PO SCH (16:00)
[2021-09-09] MEDS: CEFEPIME 2,000 MG in SYRINGE 0 ML IV SCH ×2 (18:38→23:46)
[2021-09-09] MEDS: CYCLOBENZAPRINE HCL 5 MG TAB PO SCH (20:51)
[2021-09-09] MEDS: HYOSCYAMINE SULFATE 0.125 MG TAB PO SCH (20:51)
[2021-09-10] MEDS: DAPTOMYCIN IV SCH (05:08)
[2021-09-10 05:59] LABS: Hematocrit (blood only) 24.4 % (42-52); Hemoglobin 7.3 g/dL (14.0-18.0); Mean Corpuscular Hemoglobin 28.2 pg (25-34); Mean Corpuscular Hgb Conc 29.9 g/dL (32-36); Mean Corpuscular Volume 94.2 fL (80-100); Mean Platelet Volume 8.3 fL (7.4-10.4); Platelet Count 321 K/uL (130-400); RDW Coefficient of Variation 18.7 % (11.5-14.5); RDW Standard Deviation 64.5 fL (36.4-46.3); Red Blood Count 2.59 M/uL (4.7-6.1); White Blood Count 10.12 K/uL (4.8-10.8)
[2021-09-10 06:10] LABS: INR 1.1 (0.9-1.1); Prothrombin Time 10.9 Seconds (9.0-12.0)
[2021-09-10] MEDS: FERROUS GLUCONATE 324 MG TAB PO SCH (08:03)
[2021-09-10] MEDS: ADVANCED PROBIOTIC 1250 MG CAPSULE PO SCH (08:03)
[2021-09-10] MEDS: GABAPENTIN 800 MG TAB PO SCH ×2 (08:03→20:03)
[2021-09-10] MEDS: FAMOTIDINE 20 MG TAB PO SCH ×2 (08:03→20:03)
[2021-09-10] MEDS: allopurinoL 100 MG TAB PO SCH ×2 (08:03→20:02)
[2021-09-10] MEDS: PANTOprazole 40 MG TAB PO SCH (08:03)
[2021-09-10] MEDS: ESCITALOPRAM OXALATE 20 MG TAB PO SCH (08:03)
[2021-09-10] MEDS: MAGNESIUM OXIDE 400 MG TAB PO SCH ×2 (08:03→20:02)
[2021-09-10] MEDS: tiZANidine HCL 4 MG TABLET PO SCH ×2 (08:03→20:03)
[2021-09-10] MEDS: MULTIVITAMIN TAB PO SCH (08:03)
[2021-09-10] MEDS: INSULIN GLARGINE SOLOSTAR 100 UNITS/ML 3 ML PEN SC SCH ×2 (08:04→20:04)
[2021-09-10] MEDS: INSULIN ASPART PER UNIT SC SCH ×4 (08:07→20:04)
[2021-09-10] MEDS: BACLOFEN 10 MG TAB PO SCH ×4 (08:10→20:09)
[2021-09-10] MEDS ORDERED: SODIUM CHLORIDE 0.9% 250 ML IV PRN (09:12)
[2021-09-10] MEDS: CEFEPIME 2,000 MG in SYRINGE 0 ML IV SCH ×2 (09:39→17:41)
[2021-09-10 09:43] LABS: Ferritin 208.7 ng/ml (8-388)
--- NOTE | 2021-09-10 10:21 | Surgery Progress Note ---
Date of Service September 10, 2021 Assessment & Plan (1) Sacral decubitus ulcer, stage IV: Plan: POD#2 sacral wound debridement, POD#4 initial sacral wound debridement Coumadin resumed yesterday evening. Hbg 7.3 (7.9) Continue IV abx per ID recs Okay for discharge from our standpoint with ongoing dressing changes qd with dakins wet-dry kerlex packing F/u in wound care clinic next week Admission and Anticipated Discharge Date Admission Date: September 06, 2021 Supervising Physician Co-Signing Physician Notes I personally saw and evaluated the patient with Ranjana Yadav PA-C and agree with the assessment and plan. 60-year-old male with sacral and right buttock decubitus ulcer status post debridement Overall his wound is stable Continue IV antibiotics per medicine Okay to resume Coumadin He will likely need further debridement of his wound but this can be delayed 1 to 2 weeks He can follow-up as an outpatient with the wound clinic Continue daily Dakin's wet-to-dry dressing per nursing for the next few days We will have the wound nurses reevaluate the wound for any wound dressing changes at that time Subjective Patient offers no complaints. Physical Exam Gastrointestinal (Abdomen): dressing intact Results & Data ([facility]) Vital Signs (Past 12 Hours) Vital Signs Temp Pulse Pulse Resp BP Pulse Ox 09/10/21 08:00 36.6 C 80 83 18 106/63 99 09/10/21 03:20 36.9 C 90 15 128/60 92 09/10/21 00:01 107 H 09/09/21 23:32 37.2 C 108 H 18 146/72 H 97 PG Care Time/CCT Total # of Minutes Spent Total Time Spent with Patient: Total time spent is greater than 50% in coordination of care (as documented) at patient's floor/unit and/or counseling patient: Coding Level of Care Code None Diagnoses Sacral decubitus ulcer, stage IV L89.154
--- NOTE | 2021-09-10 12:56 | Electrocardiogram Report ---
Test Reason : Blood Pressure : / mmHG Vent. Rate : 153 BPM Atrial Rate : 092 BPM P-R Int : 000 ms QRS Dur : 084 ms QT Int : 244 ms P-R-T Axes : 000 022 187 degrees QTc Int : 389 ms Poor data quality, interpretation may be adversely affected Possible Sinus rhythm Low voltage QRS Poor R wave progression, consider anterior AR vs. lead placement vs. LVH Abnormal ECG When compared with ECG of 05-SEP-2021 23:41, Significant changes have occurred Confirmed by Jose Alfredo Courtney ([id number]) on 09/10/2021 12:55:50 PM Referred By: REFERRED SELF Confirmed By:Jose Alfredo Courtney
--- NOTE | 2021-09-10 13:07 | Electrocardiogram Report ---
Test Reason : Blood Pressure : / mmHG Vent. Rate : 086 BPM Atrial Rate : 086 BPM P-R Int : 210 ms QRS Dur : 124 ms QT Int : 432 ms P-R-T Axes : 024 066 052 degrees QTc Int : 516 ms Poor data quality, interpretation may be adversely affected Sinus rhythm with 1st degree A-V block Right bundle branch block Abnormal ECG When compared with ECG of 10-SEP-2021 05:22, (unconfirmed) No significant change Confirmed by Jose Alfredo Courtney ([id number]) on 09/10/2021 1:07:15 PM Referred By: REFERRED SELF Confirmed By:Jose Alfredo Courtney
[2021-09-10] MEDS ORDERED: WARFARIN SOD 7.5 MG TAB PO SCH (16:00)
[2021-09-10 16:11] LABS: Hematocrit (blood only) 28.6 % (42-52); Hemoglobin 8.9 g/dL (14.0-18.0)
--- NOTE | 2021-09-10 17:01 | Hospitalist Progress Note ---
Date of Service September 10, 2021 Assessment & Plan (1) Severe sepsis: (2) Sacral decubitus ulcer, stage IV: (3) Osteomyelitis: Plan: Per Dr. 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 Purulent drainage from sacral wound soaking dressings as per his . Patient with loose stools as per . No headache/chest pain/SOA/abdominal pain. Pt non smoker and no chronic intake of alcohols. Pt on 2L O2 at night at home. Of note, patient was in [facility] August 24-2020--> sacral decubitus s/p debridement where wound culture grew MDR Pseudomonas and Enterococcus faecalis. Per , debridement not deep enough due to elevated INR at the time of surgery per Surgeon. Patient had concerns about draining wounds with intermittent bleeding at time of discharge from [facility] 2 days ago. He is being managed for the following: #. Severe sepsis #. Infected sacral decubitus wound with OM/abscess #. CAUTI Patient presented with low-grade fever, lethargy and poor appetite 1 day [employer] along with purulent drainage from sacral wound soaking dressings per his . Also he had loose stool in his ostomy bag [admitting C. difficile negative]. Admitting vitals: 38.6C, 120 bpm, room air with admitting lactate of 2.9 Admitting WBC 22.73K, admitting procalcitonin 0.79 Admitting CTAP: Large infectious process centered around the lower sacrum and coccyx, also involving the right ischium with evidence of multifocal OM. Suggestive of lower sacrum and coccyx abscess. Myositis of the right gluteus pawel muscle with intramuscular gas and fluid. Bladder wall thickened with pericystic infiltration, suspicious for cystitis. 08/24/2021 outpatient urine culture: E faecalis and MDR Pseudomonas aeruginosa. Infected sacral decubitus wound with underlying abscess/osteomyelitis: Recent debridement in [facility]--> see above Imaging--> see above 09/05 Buttock Cx: Taina albicans/dubliniensis + Ps. aeru (resistant to Meropenem) Surgery on board: ~ 09/06/21-->Incision and Drainage and Debridement Sacral Tissue Down to Bone, 15cm x 11cm - Agusto Chaudhry, DO ~ 09/06/21 Operative cultures sent: 09/06 buttock culture: E. Faecium VRE, Taina albicans/dubliniensis, GNB. Sensitivity pending, E.faecium sensitive to Dapto 09/06 sacrum wound culture: E Faecium VRE, Taina albicans/dubliniensis ~ 09/08/21 ---> Revision I&D of the sacral decubitus ulcer by Agusto Weeks, DO CAUTI - likely not after C/S and ID eval History of recurrent UTIs on chronic methenamine suppression treatment. Neurogenic bladder with suprapubic catheter in situ. Recent urine culture--> see above Admitting urine culture: Yeast not Taina albicans/dub ID evaluated: Believes suprapubic catheter unlikely to not yield pathogen, since we have a source of infection, hence will not direct treatment at the urinary tract. Patient afebrile, WBC trending down. Resume warfarin per surgery, follow-up wound care clinic on Wednesday with Dr. Chaudhry for further incision and debridement plan/discussion. Continue with daptomycin 09/06 and meropenem 09/06 --> switched to cefepime 09/09 based on C/S and upon further d/w ID on 09/09 Infectious disease evaluated the patient: Continue daptomycin, switch meropenem to cefepime, fluconazole 400 mg oral daily. During therapy, CK, CMP and CBC with differential weekly. Continue therapy for 6 weeks starting 09/06/2021. Obtain CRP weekly until 2 months after stopping therapy. Follow-up with infectious disease as an outpatient. PICC line consent obtained, will get PICC line. Continue with daptomycin and cefepime. Get baseline EKG for QTC, initiate oral fluconazole, might need to touch base with ID if QTC still prolonged on repeat EKG. 09/10/2021 Continue Dapto plus cefepime Hold fluconazole for prolonged QT corrected of 516 Will discuss with ID #. History of DVT Patient on Coumadin, INR therapeutic at admission, IVC filter placed 11 years a go per patient. Patient received vitamin K to bring down INR for preparation for OT. Patient also received 4 units of FFP due to elevation in his APTT prior to the OR. Warfarin resumed 09/09 per surgery recommendation. Date PT/INR, continue to monitor hemoglobin. SCDs until therapeutic INR. 09/10/2021 INR 1.1 Continue Coumadin #. Acute on chronic anemia, Likely from acute blood loss secondary to recent procedure Baseline hemoglobin around 7 as of 08/2021 Admitting hemoglobin of 8.4 I&D 09/06--> Hb dropped to 6.6---> status post 1 unit PRBC. Hemoglobin stable around 7.5 currently. Monitor hemoglobin daily 09/10/2021 Hemoglobin 7.3 Iron level 22 No signs of active bleeding Stool fecal occult blood test negative, however has history of colonic polyps per patient's , will consult GI #. Other chronic medical condition: HTN, HLD, DM2 DM w/ suboptimal control as of recent hemoglobin A1c of 8.8 last July, Hold antihypertensive for concerns of hypotension from sepsis/postop. Resume when able. Resume other meds when able. #DVT prophylaxis: On Coumadin, SCDs number Full code Patient's Ms. Rody Rodriguez, contact #[phone]. Disposition: Pending Admission and Anticipated Discharge Date Admission Date: September 06, 2021 Subjective ff up for sacral decubitus ulcer, osteomyelitis, etc. Seen resting in bed, comfortable, not in distress States he feels fine overall no chest pain, dyspnea, palpitations, dizziness No melena, hematochezia, other signs of bleeding Pain over the sacral decubitus ulcer area relieved by pain medication Reports leg tremors-stopped when bed movement was discontinued no other symptoms Review of Systems Review of Systems: all noted and negative except for above Physical Exam Physical Exam: General- oriented x 3, not in distress, speaks in sentences with no effort or accessory muscle use Eyes- anicteric Neck- no JVD Lungs- clear breath sounds bilaterally, no rales/wheezes Heart- normal rate, regular rhythm; no murmurs Abdomen- normal bowel sounds, nondistended, soft, nontender Extremities- no pretibial edema, no calf tenderness Neuro- alert, oriented x 3; no new gross focal neurologic deficits Skin- warm & dry Results & Data Results & Data ([facility]) Vital Signs (Past 12 Hours) Vital Signs Temp Pulse Pulse Resp BP BP Pulse Ox 09/10/21 16:00 36.8 C 78 123/68 100 09/10/21 14:50 36.4 C L 79 18 117/74 94 09/10/21 14:33 36.5 C 73 18 110/76 96 09/10/21 13:33 36.5 C 80 18 148/97 H 94 09/10/21 12:33 36.5 C 80 18 148/97 H 95 09/10/21 12:03 36.8 C 83 18 148/74 H 94 09/10/21 11:48 36.5 C 85 18 150/82 H 94 09/10/21 11:43 36.5 C 80 16 115/64 84 L 09/10/21 11:32 36.5 C 93 H 16 111/67 95 09/10/21 08:00 36.6 C 80 83 18 106/63 99 all noted and reviewed including below
[2021-09-10] MEDS: DAKIN'S SOLN 0.125% QUARTER STRENGTH 473 ML BTL EXT SCH (17:40)
[2021-09-10] MEDS: CYCLOBENZAPRINE HCL 5 MG TAB PO SCH (20:03)
[2021-09-10] MEDS: HYOSCYAMINE SULFATE 0.125 MG TAB PO SCH (20:03)
[2021-09-10] MEDS: ACETAMINOPHEN 325 MG TAB PO PRN (22:48)
[2021-09-11] MEDS: CEFEPIME 2,000 MG in SYRINGE 0 ML IV SCH ×2 (00:03→17:11)
[2021-09-11] MEDS: DAPTOMYCIN IV SCH (05:58)
[2021-09-11 06:09] LABS: Basophils # (auto) 0.03 K/uL (0-0.2); Basophils % (auto) 0.2 %; Eosinophils # (auto) 0.38 K/uL (0-0.5); Hematocrit (blood only) 25.9 % (42-52); Hemoglobin 7.8 g/dL (14.0-18.0); Immature Granulocytes # (auto) 0.04 K/uL (0.00-0.02); Immature Granulocytes % (auto) 0.3 %; Lymphocytes # (auto) 1.91 K/uL (1.2-3.4); Lymphocytes % (auto) 15.2 %; Mean Corpuscular Hgb Conc 30.1 g/dL (32-36); Mean Corpuscular Volume 92.8 fL (80-100); Mean Platelet Volume 8.4 fL (7.4-10.4); Monocytes # (auto) 0.61 K/uL (0.11-0.59); Monocytes % (auto) 4.8 %; Neutrophils # (auto) 9.62 K/uL (1.4-6.5); Neutrophils % (auto) 76.5 %; Platelet Count 326 K/uL (130-400); RDW Coefficient of Variation 18.3 % (11.5-14.5); RDW Standard Deviation 61.6 fL (36.4-46.3); Red Blood Count 2.79 M/uL (4.7-6.1); White Blood Count 12.59 K/uL (4.8-10.8)
[2021-09-11 06:32] LABS: RBC Morphology Unremarkable
[2021-09-11 06:43] LABS: Calcium 8.7 mg/dl (8.5-10.1); Creatinine Clr Calc Pharmacy 134.7 ml/min; Est GFR (Non-African American) 92.3 ml/min; Potassium 4.3 mmol/L (3.5-5.1)
[2021-09-11] MEDS ORDERED: [UNRECOGNIZED DRUG - OTHER] PRN (09:14)
--- NOTE | 2021-09-11 09:34 | Gastrointestinal Consultation ---
Date of Consultation September 11, 2021 Assessment & Plan (1) Osteomyelitis: 60 year old male with numeral medical comorbidities admitted w/ decubitus ulcer and osteomyelitis, GI asked to evaluate for EVELYN - no obvious source of bleeding as Marlon denies black/bloody stools/emesis. His anemia is likely multifactorial. EGD in 2020 without any suspicious findings Would continue conservative measures Trend HGB Recommend IV PPI twice daily In the event of dark stools please recall GI to arrange endoscopic evaluation Would follow up as an OP to discuss elective EGD/Colonoscopy once recovered from this admission Recall GI as needed. Thank you for allowing us to participate in the care of th is patient. Please call with any acute changes, questions or concerns. Please see addendum below with additional recommendation from my supervising physician. Supervising Physician Co-Signing Physician Notes Attending attestation I have seen, examined this patient, and agree with the findings and above by our mid-level provider SHERMAN Heller, with the following additions - No signs of GI bleeding - Likely Anemia of Chronic disease, can follow up as outpt with PCP and discuss if needs outpt colon History of Present Illness Reason for Consultation: evelyn Requesting Physician: Marybeth Attending Physician: Miguel Rueda MD History of Present Illness 60 year old male with history of incomplete quadriplegia, ileus status post colostomy, C. difficile, chronic indwelling Martinez catheter, asymptomatic bacteriuria, DVT on Coumadin, CVA, DM2, DLD, HTN, osteomyelitis on cefdinir, seizures admitted w/ sacral decubitus ulcer and osteomyelitisi - GI asked to evaluate for EVELYN. Pt was seen and evaluated, chart reviewed. He notes he has been feeling well from GI standpoint. Denies abd pain. No nausea, vomiting. No GERD. Good appetite. Moving bowels well and reports formed, brown stools. Denies black or bloody output. EGD 2020: No endoscopic esophageal abnormality to explain patient's dysphagia. Esophagus dilated. Dilated. - Erythematous mucosa in the antrum. Biopsied. - Normal duodenal bulb and second portion of the duodenum. Biopsied. Allergies Allergy/AdvReac Type Severity Reaction Status Date / Time codeine Allergy Severe THROAT Verified 09/08/21 08:34 SWELLS latex Allergy Intermediate welts Verified 01/03/22 08:34 piperacillin Allergy Intermediate RASH Verified 09/08/21 08:34 Sulfa (Sulfonamide Allergy Intermediate HIVES Verified 09/08/21 08:34 Antibiotics) tazobactam Allergy Intermediate RASH Verified 09/08/21 08:34 aztreonam Allergy Unknown unknown Verified 09/08/21 08:34 metoclopramide [From Reglan] AdvReac Mild lethargy Verified 09/08/21 08:34 Home Medications Medication Instructions Recorded Confirmed Type allopurinol 100 mg tablet 100 mg PO BID 05/07/18 09/05/21 History ferrous gluconate 324 mg (38 mg 324 mg PO QAM 05/07/18 09/05/21 History iron) tablet furosemide 40 mg tablet 40 mg PO BID 05/07/18 09/05/21 History gabapentin 800 mg tablet 800 mg PO BID 05/07/18 09/05/21 History magnesium oxide 400 mg (241.3 mg 400 mg PO BID 05/07/18 09/05/21 History magnesium) tablet multivitamin 1 tab PO QAM 05/07/18 09/05/21 History pantoprazole 40 mg tablet,delayed 40 mg PO QAM 05/07/18 09/05/21 History release ropinirole 1 mg tablet 1 mg PO QID 05/07/18 09/05/21 History escitalopram oxalate 20 mg tablet 20 mg PO QAM tab 08/21/19 09/05/21 History insulin human U-100 NPH-regulr 56 unit SUBCUT BID 08/21/19 09/05/21 History 70-30 mix 100 unit/mL subcutaneous susp (Novolin 70/30 U-100 Insulin) warfarin 5 mg tablet 5 mg PO 3XWK tab 08/21/19 09/05/21 History atorvastatin 40 mg tablet 40 mg PO HS 08/24/19 09/05/21 History baclofen 10 mg tablet 10 mg PO QID 09/22/19 09/05/21 History cyclobenzaprine 10 mg tablet 15 mg PO HS 03/01/20 09/05/21 History hyoscyamine sulfate 0.125 mg tablet 0.125 mg PO QPM 03/01/20 09/05/21 History potassium chloride 10 mEq 10 meq PO BIDM 03/01/20 09/05/21 History tablet,extended release spironolactone 25 mg tablet 25 mg PO QAM 03/01/20 09/05/21 History (Aldactone) tizanidine 4 mg tablet 4 mg PO BID 03/01/20 09/05/21 History Medical Marijuana See Rx Instructions .ROUTE .COMPLEX 03/26/20 09/05/21 History methenamine hippurate 1 gram tablet 1 g PO BID 30 Days #60 tab 04/02/20 09/05/21 Rx ascorbic acid (vitamin C) 500 mg 250 mg PO TID 12/03/20 09/05/21 History tablet (Vitamin C) famotidine 20 mg tablet (Acid 20 mg PO BID 12/03/20 09/05/21 History Air Control/Anti Air Warfare Officer (famotidine)) zinc sulfate 50 mg zinc (220 mg) 50 mg PO QDL 12/03/20 09/05/21 History capsule Lactobacillus acidoph-L.bulgaricus 1 tab PO BID 01/03/21 09/05/21 History 1 million cell tablet (Floranex) acetaminophen 500 mg capsule 1,000 mg PO Q6H PRN 01/03/21 09/05/21 History bethanechol chloride 5 mg tablet 5 mg PO TID 01/03/21 09/05/21 History insulin regular human 100 unit/mL 1 sliding scale dose SUBCUT 01/03/21 09/05/21 History injection solution (Novolin R USEASDIRECTD Regular U-100 Insulin) mecobalamin-levomefolate 1 tab PO BID 01/03/21 09/05/21 History calcium-pyridoxal phos 3 mg-35 mg-2 mg tablet (L-Oqigme-L9-B12) menthol 0.44 %-zinc oxide 20.6 % 1 applic TOPICAL QID PRN 01/03/21 09/05/21 History topical ointment (Calmoseptine) methenamin 81.6 mg-hyoscyam 0.12 1 tab PO QPM 01/03/21 09/05/21 History mg-methblue 10.8 jk-or-dvazldn tablet nystatin 100,000 unit/gram topical 1 applic TOPICAL BID PRN 01/03/21 09/05/21 History powder nystatin-triamcinolone 100,000 1 applic TOPICAL BID 01/03/21 09/05/21 History unit/g-0.1 % topical cream triamcinolone acetonide 0.1 % 1 applic TOPICAL BID PRN 01/03/21 09/05/21 History topical cream irbesartan 75 mg tablet 75 mg PO DAILY 06/02/21 09/05/21 History warfarin 7.5 mg tablet 7.5 mg PO 4XWK 06/02/21 09/05/21 History metformin 1,000 mg tablet 1,000 mg PO BIDM 06/14/21 09/05/21 History cefdinir 300 mg capsule 300 mg PO BID 06/23/21 09/05/21 History Patient History Medical History (Updated 09/08/21 @ 08:38 by Angel Roblero MD) Anemia Asymptomatic bacteriuria Clostridium difficile infection (Unknown) CVA (cerebral vascular accident) DM type 2 (diabetes mellitus, type 2) Dyslipidemia Dysphagia Fever History of blood clots History of DVT (deep vein thrombosis) Hypertension Hypotension Ileus Kidney disease Leukocytosis Major depressive disorder, recurrent Obesity Occluded PICC line Positive urine culture Quadriplegia BRAIN INJURY 11 YRS AGO Seizure SIRS (systemic inflammatory response syndrome) Sleep apnea (Unknown) OXYGEN 2L/MIN NC HS Syncope 57 year old with know quadriplegia and new onset syncope with change in position UTI (urinary tract infection) RECENT [facility] ADMISION-D/C 12/06/20 Surgical History (Updated 09/09/21 @ 08:46 by Kristen Morataya RN) History of colonoscopy 2010 History of open reduction and internal fixation (ORIF) procedure LEFT FEMUR Insertion of inferior vena caval filter (Unknown) Lithotripsy (Unknown) "laser lithotripsy left ureteral stone 03/17/11 " S/P debridement (09/06/21) Incision and Drainage and Debridement Sacral Tissue Down to Bone, 15cm x 11cm - Agusto Chaudhry DO 09/06/21 S/P debridement (09/08/21) Excisional Debridement of Sacral Decubitus Ulcer, [id number] Down to Bone - Agusto Chaudhry DO 09/08/2021 S/P knee surgery S/P tonsillectomy Suprapubic cystostomy (Unknown) IN PLACE Family History Mother No pertinent family history Family history of diabetes mellitus Father Family hx of colon cancer Social History Smoking Status: Unknown if ever smoked Second Hand Exposure: No; Hx Alcohol Use: No Hx Substance Use: No Preferred Language: Kazakh Communication Ability: Effective Visual Impairment: No Limitations Care Manager Required: No Beliefs That Will Affect Care: None marital status: Current Living Situation: Spouse Current Living Situation Comment: lives at home with and 2 dogs. No kids at home. current occupational status: disabled Feels Safe at Home: Yes Physical Activity Frequency Comment: QUADRAPLEGIA C4-5-ABLE TO MOVE ARMS, HANDS Assistive Devices: Oxygen - at Night Review of Systems Review of Systems: All systems reviewed & are unremarkable except as noted in HPI & below Physical Exam Constitutional: WD/WN, vitals as above Respiratory: normal respiratory effort Cardiovascular: Rate/Rhythm: regular rate and regular rhythm Gastrointestinal (Abdomen): normal bowel sounds, soft, nontender, no hepatosplenomegaly Skin: no rashes, warm and dry Results & Data ([facility]) Vital Signs (Past 12 Hours) Vital Signs Temp Pulse Pulse Resp BP BP Pulse Ox 09/11/21 08:12 36.7 C 87 20 94/55 L 100 09/11/21 07:33 78 09/11/21 04:00 36.5 C 91 H 20 110/65 99 09/10/21 22:55 36.9 C 88 20 145/68 H 93 09/10/21 22:45 89 Laboratory Results 09/11/21 09/11/21 09/11/21 Range/Units 07:52 05:44 05:44 WBC (4.8-10.8) K/uL RBC (4.7-6.1) M/uL Hgb (14.0-18.0) g/dL Hct (42-52) % MCV (80-100) fL MCH (25-34) pg MCHC (32-36) g/dL RDW Std Deviation (36.4-46.3) fL RDW Coeff of Yoseph (11.5-14.5) % Plt Count (130-400) K/uL MPV (7.4-10.4) fL Immature Gran % (Auto) % Neut % (Auto) % Lymph % (Auto) % [place] % (Auto) % Eos % (Auto) % Baso % (Auto) % Neut # (Auto) (1.4-6.5) K/uL Lymph # (Auto) (1.2-3.4) K/uL [place] # (Auto) (0.11-0.59) K/uL Eos # (Auto) (0-0.5) K/uL Baso # (Auto) (0-0.2) K/uL Immature Gran # (Auto) (0.00-0.02) K/uL RBC Morphology Sodium 138 (136-145) mmol/L Potassium 4.3 (3.5-5.1) mmol/L Chloride 101 (98-107) mmol/L Carbon Dioxide 34 H (21-32) mmol/L Anion Gap 3.0 (3-11) BUN 19 H (7-18) mg/dl Creatinine 0.89 (0.6-1.4) mg/dl Est Cr Clr Drug Dosing 134.7 ml/min Est GFR ( Amer) 107.0 ml/min Est GFR (Non-Af Amer) 92.3 ml/min BUN/Creatinine Ratio 21.0 H (10-20) Glucose 173 H (70-99) mg/dl POC Glucose 165 H (70-99) mg/dl Calcium 8.7 (8.5-10.1) mg/dl Iron (35-175) mcg/dl Ferritin (8-388) ng/ml Vitamin B12 Pending Folate (>5.38) ng/ml Stool Occult Bld Scrn (Negative) Blood Type Antibody Screen Crossmatch 09/11/21 09/10/21 09/10/21 Range/Units 05:44 19:59 16:20 WBC 12.59 H (4.8-10.8) K/uL RBC 2.79 L (4.7-6.1) M/uL Hgb 7.8 L (14.0-18.0) g/dL Hct 25.9 L (42-52) % MCV 92.8 (80-100) fL MCH 28.0 (25-34) pg MCHC 30.1 L (32-36) g/dL RDW Std Deviation 61.6 H (36.4-46.3) fL RDW Coeff of Yoseph 18.3 H (11.5-14.5) % Plt Count 326 (130-400) K/uL MPV 8.4 (7.4-10.4) fL Immature Gran % (Auto) 0.3 % Neut % (Auto) 76.5 % Lymph % (Auto) 15.2 % [place] % (Auto) 4.8 % Eos % (Auto) 3.0 % Baso % (Auto) 0.2 % Neut # (Auto) 9.62 H (1.4-6.5) K/uL Lymph # (Auto) 1.91 (1.2-3.4) K/uL [place] # (Auto) 0.61 H (0.11-0.59) K/uL Eos # (Auto) 0.38 (0-0.5) K/uL Baso # (Auto) 0.03 (0-0.2) K/uL Immature Gran # (Auto) 0.04 H (0.00-0.02) K/uL RBC Morphology Unremarkable Sodium (136-145) mmol/L Potassium (3.5-5.1) mmol/L Chloride (98-107) mmol/L Carbon Dioxide (21-32) mmol/L Anion Gap (3-11) BUN (7-18) mg/dl Creatinine (0.6-1.4) mg/dl Est Cr Clr Drug Dosing ml/min Est GFR ( Amer) ml/min Est GFR (Non-Af Amer) ml/min BUN/Creatinine Ratio (10-20) Glucose (70-99) mg/dl POC Glucose 239 H 212 H (70-99) mg/dl Calcium (8.5-10.1) mg/dl Iron (35-175) mcg/dl Ferritin (8-388) ng/ml Vitamin B12 Folate (>5.38) ng/ml Stool Occult Bld Scrn (Negative) Blood Type Antibody Screen Crossmatch 09/10/21 09/10/21 09/10/21 Range/Units 15:56 11:17 10:30 WBC (4.8-10.8) K/uL RBC (4.7-6.1) M/uL Hgb 8.9 L (14.0-18.0) g/dL Hct 28.6 L (42-52) % MCV (80-100) fL MCH (25-34) pg MCHC (32-36) g/dL RDW Std Deviation (36.4-46.3) fL RDW Coeff of Yoseph (11.5-14.5) % Plt Count (130-400) K/uL MPV (7.4-10.4) fL Immature Gran % (Auto) % Neut % (Auto) % Lymph % (Auto) % [place] % (Auto) % Eos % (Auto) % Baso % (Auto) % Neut # (Auto) (1.4-6.5) K/uL Lymph # (Auto) (1.2-3.4) K/uL [place] # (Auto) (0.11-0.59) K/uL Eos # (Auto) (0-0.5) K/uL Baso # (Auto) (0-0.2) K/uL Immature Gran # (Auto) (0.00-0.02) K/uL RBC Morphology Sodium (136-145) mmol/L Potassium (3.5-5.1) mmol/L Chloride (98-107) mmol/L Carbon Dioxide (21-32) mmol/L Anion Gap (3-11) BUN (7-18) mg/dl Creatinine (0.6-1.4) mg/dl Est Cr Clr Drug Dosing ml/min Est GFR ( Amer) ml/min Est GFR (Non-Af Amer) ml/min BUN/Creatinine Ratio (10-20) Glucose (70-99) mg/dl POC Glucose 216 H (70-99) mg/dl Calcium (8.5-10.1) mg/dl Iron (35-175) mcg/dl Ferritin (8-388) ng/ml Vitamin B12 Folate (>5.38) ng/ml Stool Occult Bld Scrn Negative (Negative) Blood Type Antibody Screen Crossmatch 09/10/21 09/10/21 09/10/21 Range/Units 09:30 09:22 05:37 WBC (4.8-10.8) K/uL RBC (4.7-6.1) M/uL Hgb (14.0-18.0) g/dL Hct (42-52) % MCV (80-100) fL MCH (25-34) pg MCHC (32-36) g/dL RDW Std Deviation (36.4-46.3) fL RDW Coeff of Yoseph (11.5-14.5) % Plt Count (130-400) K/uL MPV (7.4-10.4) fL Immature Gran % (Auto) % Neut % (Auto) % Lymph % (Auto) % [place] % (Auto) % Eos % (Auto) % Baso % (Auto) % Neut # (Auto) (1.4-6.5) K/uL Lymph # (Auto) (1.2-3.4) K/uL [place] # (Auto) (0.11-0.59) K/uL Eos # (Auto) (0-0.5) K/uL Baso # (Auto) (0-0.2) K/uL Immature Gran # (Auto) (0.00-0.02) K/uL RBC Morphology Sodium (136-145) mmol/L Potassium (3.5-5.1) mmol/L Chloride (98-107) mmol/L Carbon Dioxide (21-32) mmol/L Anion Gap (3-11) BUN (7-18) mg/dl Creatinine (0.6-1.4) mg/dl Est Cr Clr Drug Dosing ml/min Est GFR ( Amer) ml/min Est GFR (Non-Af Amer) ml/min BUN/Creatinine Ratio (10-20) Glucose (70-99) mg/dl POC Glucose (70-99) mg/dl Calcium (8.5-10.1) mg/dl Iron 22 L (35-175) mcg/dl Ferritin 208.7 (8-388) ng/ml Vitamin B12 Folate 17.10 (>5.38) ng/ml Stool Occult Bld Scrn (Negative) Blood Type A Positive Antibody Screen NEGATIVE Crossmatch See Detail
[2021-09-11] MEDS: allopurinoL 100 MG TAB PO SCH ×2 (10:29→21:37)
[2021-09-11] MEDS: GABAPENTIN 800 MG TAB PO SCH ×2 (10:32→21:38)
[2021-09-11] MEDS: FERROUS GLUCONATE 324 MG TAB PO SCH (10:32)
[2021-09-11] MEDS: MAGNESIUM OXIDE 400 MG TAB PO SCH ×2 (10:32→21:39)
[2021-09-11] MEDS: MULTIVITAMIN TAB PO SCH (10:32)
[2021-09-11] MEDS: ADVANCED PROBIOTIC 1250 MG CAPSULE PO SCH (10:32)
[2021-09-11] MEDS: FAMOTIDINE 20 MG TAB PO SCH ×2 (10:32→21:38)
[2021-09-11] MEDS: PANTOprazole 40 MG TAB PO SCH (10:32)
[2021-09-11] MEDS: tiZANidine HCL 4 MG TABLET PO SCH ×2 (10:33→21:38)
[2021-09-11] MEDS: INSULIN GLARGINE SOLOSTAR 100 UNITS/ML 3 ML PEN SC SCH ×2 (10:37→21:13)
[2021-09-11] MEDS: BACLOFEN 10 MG TAB PO SCH ×4 (10:44→21:37)
[2021-09-11] MEDS: INSULIN ASPART PER UNIT SC SCH ×4 (10:44→21:12)
[2021-09-11] MEDS ORDERED: CASPOFUNGIN 70 MG in SODIUM CHLORIDE 0.9% 250 ML IV ONE (12:00)
[2021-09-11] MEDS: DAKIN'S SOLN 0.125% QUARTER STRENGTH 473 ML BTL EXT SCH (14:20)
[2021-09-11 14:31] LABS: Hematocrit (blood only) 27.3 % (42-52); Hemoglobin 8.4 g/dL (14.0-18.0)
[2021-09-11 14:41] LABS: INR 1.1 (0.9-1.1); Prothrombin Time 10.9 Seconds (9.0-12.0)
[2021-09-11] MEDS ORDERED: WARFARIN SOD 7.5 MG TAB PO SCH (16:00)
--- NOTE | 2021-09-11 16:13 | Hospitalist Progress Note ---
Date of Service September 11, 2021 Assessment & Plan (1) Severe sepsis: (2) Sacral decubitus ulcer, stage IV: (3) Osteomyelitis: Plan: Per Dr. 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 Purulent drainage from sacral wound soaking dressings as per his . Patient with loose stools as per . No headache/chest pain/SOA/abdominal pain. Pt non smoker and no chronic intake of alcohols. Pt on 2L O2 at night at home. Of note, patient was in [facility] August 24-2020--> sacral decubitus s/p debridement where wound culture grew MDR Pseudomonas and Enterococcus faecalis. Per , debridement not deep enough due to elevated INR at the time of surgery per Surgeon. Patient had concerns about draining wounds with intermittent bleeding at time of discharge from [facility] 2 days ago. He is being managed for the following: #. Severe sepsis #. Infected sacral decubitus wound with OM/abscess #. 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 Also he had loose stool in his ostomy bag [admitting C. difficile negative]. Admitting vitals: 38.6C, 120 bpm, room air with admitting lactate of 2.9 Admitting WBC 22.73K, admitting procalcitonin 0.79 Admitting CTAP: Large infectious process centered around the lower sacrum and coccyx, also involving the right ischium with evidence of multifocal OM. Suggestive of lower sacrum and coccyx abscess. Myositis of the right gluteus pawel muscle with intramuscular gas and fluid. Bladder wall thickened with pericystic infiltration, suspicious for cystitis. 08/24/2021 outpatient urine culture: E faecalis and MDR Pseudomonas aeruginosa. Infected sacral decubitus wound with underlying abscess/osteomyelitis: Recent debridement in [facility]--> see above Imaging--> see above 09/05 Buttock Cx: Taina albicans/dubliniensis + Ps. aeru (resistant to Meropenem) Surgery on board: ~ 09/06/21-->Incision and Drainage and Debridement Sacral Tissue Down to Bone, 15cm x 11cm - Agusto Chaudhry, DO ~ 09/06/21 Operative cultures sent: 09/06 buttock culture: E. Faecium VRE, Taina albicans/dubliniensis, GNB. Sensitivity pending, E.faecium sensitive to Dapto 09/06 sacrum wound culture: E Faecium VRE, Taina albicans/dubliniensis ~ 09/08/21 ---> Revision I&D of the sacral decubitus ulcer by Agusto Weeks, DO CAUTI - likely not after C/S and ID eval History of recurrent UTIs on chronic methenamine suppression treatment. Neurogenic bladder with suprapubic catheter in situ. Recent urine culture--> see above Admitting urine culture: Yeast not Taina albicans/dub ID evaluated: Believes suprapubic catheter unlikely to not yield pathogen, since we have a source of infection, hence will not direct treatment at the urinary tract. Patient afebrile, WBC trending down. Resume warfarin per surgery, follow-up wound care clinic on Wednesday with Dr. Chaudhry for further incision and debridement plan/discussion. Continue with daptomycin 09/06 and meropenem 09/06 --> switched to cefepime 09/09 based on C/S and upon further d/w ID on 09/09 Infectious disease evaluated the patient: Continue daptomycin, switch meropenem to cefepime, fluconazole 400 mg oral daily. During therapy, CK, CMP and CBC with differential weekly. Continue therapy for 6 weeks starting 09/06/2021. Obtain CRP weekly until 2 months after stopping therapy. Follow-up with infectious disease as an outpatient. PICC line consent obtained, will get PICC line. Continue with daptomycin and cefepime. Get baseline EKG for QTC, initiate oral fluconazole, might need to touch base with ID if QTC still prolonged on repeat EKG. 09/11/2021 Unclear sensitivities revealing multidrug-resistant Pseudomonas Change cefepime to ceftazidime/avibactam QT prolonged, change fluconazole to caspofungin Continue daptomycin IV Discussed with Lashell Hernandez Per RN Briseyda, patient's sacral decubitus ulcer has increased yellow discharge today Will inform general surgery service, wound care service #. History of DVT Patient on Coumadin, INR therapeutic at admission, IVC filter placed 11 years ago per patient. Patient received vitamin K to bring down INR for preparation for OT. Patient also received 4 units of FFP due to elevation in his APTT prior to the OR. Warfarin resumed 09/09 per surgery recommendation. Date PT/INR, continue to monitor hemoglobin. SCDs until therapeutic INR. 09/11/2021 INR 1.1 Continue Coumadin 7.5 mg daily Start heparin every 8 hours of intensity for DVT prophylaxis until INR therapeutic #. Acute on chronic anemia, Likely from acute blood loss secondary to recent procedure Baseline hemoglobin around 7 as of 08/2021 Admitting hemoglobin of 8.4 I&D 09/06--> Hb dropped to 6.6---> status post 1 unit PRBC. Hemoglobin stable around 7.5 currently. Monitor hemoglobin daily 09/11/2021 Hemoglobin 7.3 Iron level 22 No signs of active bleeding Stool fecal occult blood test negative, however has history of colonic polyps per patient's , will consult GI GI consulted No EGD for now Continue Protonix Monitor closely Will give IV Venofer #. Other chronic medical condition: HTN, HLD, DM2 DM w/ suboptimal control as of recent hemoglobin A1c of 8.8 last July, Hold antihypertensive for concerns of hypotension from sepsis/postop. Resume when able. Resume other meds when able. #DVT prophylaxis: On Coumadin, SCDs number Full code Patient's Ms. Rody Rodriguez, contact #[phone]. Disposition: Pending plan of care discussed with patient and his Herlinda over the phone in detail and at length yesterday and today all questions answered They are understanding, agreeable, comfortable with the plan of care Admission and Anticipated Discharge Date Admission Date: September 06, 2021 Subjective Follow-up for sacral decubitus ulcer, osteomyelitis, anemia, etc. Seen resting in bed, comfortable, in good spirits Watching TV States he feels okay overall Back pain is adequately controlled Denies chest pain, shortness of breath, palpitations, dizziness, headache, fevers or chills No other symptoms Review of Systems Review of Systems: all noted and negative except for above Physical Exam Physical Exam: General- oriented x 3, not in distress, speaks in sentences with no effort or accessory muscle use Eyes- anicteric Neck- no JVD Lungs- clear breath sounds bilaterally, no rales/wheezes Heart- normal rate, regular rhythm; no murmurs Abdomen- normal bowel sounds, nondistended, soft, nontender Extremities- no pretibial edema, no calf tenderness Neuro- alert, oriented x 3; no gross focal neurologic deficits Skin- warm & dry Results & Data Results & Data ([facility]) Vital Signs (Past 12 Hours) Vital Signs Temp Pulse Pulse Pulse Resp BP Pulse Ox 09/11/21 16:04 36.7 C 94 H 16 107/68 94 09/11/21 16:00 96 H 09/11/21 08:12 36.7 C 87 20 94/55 L 100 09/11/21 07:33 78 all noted and reviewed including below
[2021-09-11] MEDS: CYCLOBENZAPRINE HCL 5 MG TAB PO SCH (21:37)
[2021-09-11] MEDS: HYOSCYAMINE SULFATE 0.125 MG TAB PO SCH (21:39)
[2021-09-11] MEDS: HEPARIN SOD 5,000 UNIT/0.5 ML VIAL SQ SCH (21:42)
--- NOTE | 2021-09-11 22:20 | Electrocardiogram Report ---
Test Reason : Blood Pressure : / mmHG Vent. Rate : 080 BPM Atrial Rate : 080 BPM P-R Int : 178 ms QRS Dur : 134 ms QT Int : 450 ms P-R-T Axes : 052 010 002 degrees QTc Int : 519 ms Normal sinus rhythm Right bundle branch block Abnormal ECG When compared with ECG of 10-SEP-2021 09:36, MT interval has decreased Questionable change in QRS axis Confirmed by Kavon Nieto ([id number]) on 09/11/2021 10:20:29 PM Referred By: REFERRED SELF Confirmed By:Kavon Nieto
[2021-09-12] MEDS: DAPTOMYCIN IV SCH (06:10)
[2021-09-12] MEDS: HEPARIN SOD 5,000 UNIT/0.5 ML VIAL SQ SCH ×3 (06:10→20:19)
[2021-09-12 08:43] LABS: Basophils # (auto) 0.04 K/uL (0-0.2); Basophils % (auto) 0.4 %; Eosinophils # (auto) 0.37 K/uL (0-0.5); Eosinophils % (auto) 3.3 %; Hematocrit (blood only) 28.5 % (42-52); Hemoglobin 8.7 g/dL (14.0-18.0); Immature Granulocytes # (auto) 0.06 K/uL (0.00-0.02); Immature Granulocytes % (auto) 0.5 %; Lymphocytes # (auto) 2.37 K/uL (1.2-3.4); Lymphocytes % (auto) 20.9 %; Mean Corpuscular Hgb Conc 30.5 g/dL (32-36); Mean Corpuscular Volume 91.6 fL (80-100); Mean Platelet Volume 8.7 fL (7.4-10.4); Monocytes % (auto) 4.4 %; Neutrophils # (auto) 8.02 K/uL (1.4-6.5); Neutrophils % (auto) 70.5 %; Platelet Count 319 K/uL (130-400); RDW Coefficient of Variation 18.3 % (11.5-14.5); RDW Standard Deviation 61.1 fL (36.4-46.3); Red Blood Count 3.11 M/uL (4.7-6.1); White Blood Count 11.36 K/uL (4.8-10.8)
[2021-09-12] MEDS: FERROUS GLUCONATE 324 MG TAB PO SCH (09:41)
[2021-09-12] MEDS: FAMOTIDINE 20 MG TAB PO SCH ×2 (09:41→20:20)
[2021-09-12] MEDS: GABAPENTIN 800 MG TAB PO SCH ×2 (09:41→20:18)
[2021-09-12] MEDS: BACLOFEN 10 MG TAB PO SCH ×4 (09:41→20:18)
[2021-09-12] MEDS: allopurinoL 100 MG TAB PO SCH ×2 (09:41→20:20)
[2021-09-12] MEDS: tiZANidine HCL 4 MG TABLET PO SCH ×2 (09:41→20:19)
[2021-09-12] MEDS: PANTOprazole 40 MG TAB PO SCH (09:41)
[2021-09-12] MEDS: MULTIVITAMIN TAB PO SCH (09:41)
[2021-09-12] MEDS: ADVANCED PROBIOTIC 1250 MG CAPSULE PO SCH (09:41)
[2021-09-12] MEDS: MAGNESIUM OXIDE 400 MG TAB PO SCH ×2 (09:41→20:19)
[2021-09-12] MEDS: INSULIN GLARGINE SOLOSTAR 100 UNITS/ML 3 ML PEN SC SCH ×2 (09:45→20:36)
[2021-09-12] MEDS: INSULIN ASPART PER UNIT SC SCH ×4 (09:54→20:38)
[2021-09-12] MEDS: CASPOFUNGIN 50 MG in SODIUM CHLORIDE 0.9% 250 ML IV SCH (09:55)
--- NOTE | 2021-09-12 10:34 | Surgery Progress Note ---
Date of Service September 12, 2021 Assessment & Plan (1) Sacral decubitus ulcer, stage IV: Plan: Pt here with sacral wound s/p debridement x2 WBC 11, afebrile, stable vitals. Hbg 8.7 Wound was evaluated at the bedside with wound-care today. Has some areas that may benefit from further debridement. Since remains admitted we will plan on further debridement next Wednesday with Dr. Chaudhry Continue daily dressing changes per wound care recs Continue on IV abx Hold Coumadin [facility] surgery covering on weekend if any questions/concerns Admission and Anticipated Discharge Date Admission Date: September 06, 2021 Subjective Patient doing well. Getting ready for wound dressing change. Offers no complaints. Physical Exam Physical Exam: awake/alert Gastrointestinal (Abdomen): sacral wound packing removed, some serosang drainage noted Results & Data ([facility]) Vital Signs (Past 12 Hours) Vital Signs Temp Pulse Pulse Resp BP Pulse Ox 09/12/21 08:01 36.5 C 82 20 108/70 99 09/12/21 07:08 81 09/12/21 02:26 36.5 C 85 20 98/61 L 99 09/11/21 22:45 80 09/11/21 22:37 36.9 C 100 H 20 143/73 H 93 PG Care Time/CCT Total # of Minutes Spent Total Time Spent with Patient: Total time spent is greater than 50% in coordination of care (as documented) at patient's floor/unit and/or counseling patient: Coding Level of Care Code None Diagnoses Sacral decubitus ulcer, stage IV L89.154
[2021-09-12 10:38] LABS: INR 1.1 (0.9-1.1); Prothrombin Time 11.4 Seconds (9.0-12.0)
[2021-09-12] MEDS: DAKIN'S SOLN 0.125% QUARTER STRENGTH 473 ML BTL EXT SCH (11:10)
--- NOTE | 2021-09-12 15:25 | Hospitalist Progress Note ---
Date of Service September 12, 2021 Assessment & Plan (1) Severe sepsis: (2) Sacral decubitus ulcer, stage IV: (3) Osteomyelitis: Plan: Per Dr. 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 Purulent drainage from sacral wound soaking dressings as per his . Patient with loose stools as per . No headache/chest pain/SOA/abdominal pain. Pt non smoker and no chronic intake of alcohols. Pt on 2L O2 at night at home. Of note, patient was in [facility] August 24-2020--> sacral decubitus s/p debridement where wound culture grew MDR Pseudomonas and Enterococcus faecalis. Per , debridement not deep enough due to elevated INR at the time of surgery per Surgeon. Patient had concerns about draining wounds with intermittent bleeding at time of discharge from [facility] 2 days ago. He is being managed for the following: #. Severe sepsis #. Infected sacral decubitus wound with OM/abscess #. CAUTI Patient presented with low-grade fever, lethargy and poor appetite 1 day [employer] along with purulent drainage from sacral wound soaking dressings per his . Also he had loose stool in his ostomy bag [admitting C. difficile negative]. Admitting vitals: 38.6C, 120 bpm, room air with admitting lactate of 2.9 Admitting WBC 22.73K, admitting procalcitonin 0.79 Admitting CTAP: Large infectious process centered around the lower sacrum and coccyx, also involving the right ischium with evidence of multifocal OM. Suggestive of lower sacrum and coccyx abscess. Myositis of the right gluteus pawel muscle with intramuscular gas and fluid. Bladder wall thickened with pericystic infiltration, suspicious for cystitis. 08/24/2021 outpatient urine culture: E faecalis and MDR Pseudomonas aeruginosa. Infected sacral decubitus wound with underlying abscess/osteomyelitis: Recent debridement in [facility]--> see above Imaging--> see above 09/05 Buttock Cx: Taina albicans/dubliniensis + Ps. aeru (resistant to Meropenem) Surgery on board: ~ 09/06/21-->Incision and Drainage and Debridement Sacral Tissue Down to Bone, 15cm x 11cm - Agusto Chaudhry, DO ~ 09/06/21 Operative cultures sent: 09/06 buttock culture: E. Faecium VRE, Taina albicans/dubliniensis, GNB. Sensitivity pending, E.faecium sensitive to Dapto 09/06 sacrum wound culture: E Faecium VRE, Taina albicans/dubliniensis ~ 09/08/21 ---> Revision I&D of the sacral decubitus ulcer by Agusto Weeks, DO CAUTI - likely not after C/S and ID eval History of recurrent UTIs on chronic methenamine suppression treatment. Neurogenic bladder with suprapubic catheter in situ. Recent urine culture--> see above Admitting urine culture: Yeast not Taina albicans/dub ID evaluated: Believes suprapubic catheter unlikely to not yield pathogen, since we have a source of infection, hence will not direct treatment at the urinary tract. Patient afebrile, WBC trending down. Resume warfarin per surgery, follow-up wound care clinic on Wednesday with Dr. Chaudhry for further incision and debridement plan/discussion. Continue with daptomycin 09/06 and meropenem 09/06 --> switched to cefepime 09/09 based on C/S and upon further d/w ID on 09/09 Infectious disease evaluated the patient: Continue daptomycin, switch meropenem to cefepime, fluconazole 400 mg oral daily. During therapy, CK, CMP and CBC with differential weekly. Continue therapy for 6 weeks starting 09/06/2021. Obtain CRP weekly until 2 months after stopping therapy. Follow-up with infectious disease as an outpatient. PICC line consent obtained, will get PICC line. Continue with daptomycin and cefepime. Get baseline EKG for QTC, initiate oral fluconazole, might need to touch base with ID if QTC still prolonged on repeat EKG. 09/12/2021 Wound culture & sensitivities revealing multidrug-resistant Pseudomonas Changed cefepime to ceftazidime/avibactam Day 2 QT prolonged, change fluconazole to caspofungin Continue daptomycin IV Discussed with Lashell Hernandez Gen Surg- plan for repeat debridement on #. History of DVT Patient on Coumadin, INR therapeutic at admission, IVC filter placed 11 years ago per patient. Patient received vitamin K to bring down INR for preparation for OT. Patient also received 4 units of FFP due to elevation in his APTT prior to the OR. Warfarin resumed 09/09 per surgery recommendation. Date PT/INR, continue to monitor hemoglobin. SCDs until therapeutic INR. 09/12/2021 INR 1.1 per Gen Surg- hold Coumadin 7.5 mg daily heparin every 8 hours SC for DVT prophylaxis #. Acute on chronic anemia, Likely from acute blood loss secondary to recent procedure Baseline hemoglobin around 7 as of 08/2021 Admitting hemoglobin of 8.4 I&D 09/06--> Hb dropped to 6.6---> status post 1 unit PRBC. Hemoglobin stable around 7.5 currently. Monitor hemoglobin daily 09/11/2021 Hemoglobin 8.7 Iron level 22 No signs of active bleeding Stool fecal occult blood test negative, however has history of colonic polyps per patient's , will consult GI GI consulted No EGD for now Continue Protonix Monitor closely Will give IV Venofer #. Other chronic medical condition: HTN, HLD, DM2 DM w/ suboptimal control as of recent hemoglobin A1c of 8.8 last July, Hold antihypertensive for concerns of hypotension from sepsis/postop. Resume when able. Resume other meds when able. #DVT prophylaxis: On Coumadin, SCDs number Full code Patient's Ms. Rody Rodriguez, contact #[phone]. Disposition: Pending Admission and Anticipated Discharge Date Admission Date: September 06, 2021 Subjective ff up for osteomyelitis, etc seen resting in bed, comfortable states he feels fine overall minimal to no back discomfort no chest pain, dyspnea, palpitations, dizziness no nausea/vomiting, abdominal pain no other symptoms Review of Systems Review of Systems: all noted and negative except for above Physical Exam Physical Exam: General- oriented x 2, not in distress, speaks in sentences with no effort or accessory muscle use Eyes- anicteric Neck- no JVD Lungs- clear BS BL no rales Heart- normal rate, regular rhythm; no murmurs Abdomen- normal bowel sounds, nondistended, soft, nontender Extremities- no pretibial edema, no calf tenderness Neuro- alert, oriented x 3; no gross focal neurologic deficits Skin- warm & dry Results & Data Results & Data ([facility]) Vital Signs (Past 12 Hours) Vital Signs Temp Pulse Pulse Resp BP Pulse Ox 09/12/21 15:08 36.6 C 96 H 18 135/74 95 09/12/21 11:07 36.6 C 96 H 18 105/61 95 09/12/21 08:01 36.5 C 82 20 108/70 99 09/12/21 07:08 81 all noted and reviewed including below
[2021-09-12] MEDS: HYOSCYAMINE SULFATE 0.125 MG TAB PO SCH (20:21)
[2021-09-12] MEDS: CYCLOBENZAPRINE HCL 5 MG TAB PO SCH (20:21)
[2021-09-13] MEDS: DAPTOMYCIN IV SCH (05:48)
[2021-09-13] MEDS: HEPARIN SOD 5,000 UNIT/0.5 ML VIAL SQ SCH ×3 (05:48→21:07)
[2021-09-13 07:41] LABS: Basophils # (auto) 0.03 K/uL (0-0.2); Basophils % (auto) 0.3 %; Eosinophils # (auto) 0.33 K/uL (0-0.5); Eosinophils % (auto) 3.1 %; Hematocrit (blood only) 29.3 % (42-52); Hemoglobin 9.1 g/dL (14.0-18.0); Immature Granulocytes # (auto) 0.07 K/uL (0.00-0.02); Immature Granulocytes % (auto) 0.7 %; Lymphocytes # (auto) 2.23 K/uL (1.2-3.4); Lymphocytes % (auto) 21.2 %; Mean Corpuscular Hemoglobin 28.4 pg (25-34); Mean Corpuscular Hgb Conc 31.1 g/dL (32-36); Mean Corpuscular Volume 91.6 fL (80-100); Mean Platelet Volume 8.6 fL (7.4-10.4); Monocytes # (auto) 0.54 K/uL (0.11-0.59); Monocytes % (auto) 5.1 %; Neutrophils # (auto) 7.32 K/uL (1.4-6.5); Neutrophils % (auto) 69.6 %; Platelet Count 306 K/uL (130-400); RDW Coefficient of Variation 18.3 % (11.5-14.5); RDW Standard Deviation 61.6 fL (36.4-46.3); White Blood Count 10.52 K/uL (4.8-10.8)
[2021-09-13 07:53] LABS: INR 1.1 (0.9-1.1); Prothrombin Time 11.5 Seconds (9.0-12.0)
[2021-09-13] MEDS: MAGNESIUM OXIDE 400 MG TAB PO SCH ×2 (09:10→21:06)
[2021-09-13] MEDS: PANTOprazole 40 MG TAB PO SCH (09:11)
[2021-09-13] MEDS: BACLOFEN 10 MG TAB PO SCH ×4 (09:11→21:03)
[2021-09-13] MEDS: GABAPENTIN 800 MG TAB PO SCH ×2 (09:11→21:04)
[2021-09-13] MEDS: MULTIVITAMIN TAB PO SCH (09:11)
[2021-09-13] MEDS: ADVANCED PROBIOTIC 1250 MG CAPSULE PO SCH (09:11)
[2021-09-13] MEDS: allopurinoL 100 MG TAB PO SCH ×2 (09:11→21:03)
[2021-09-13] MEDS: tiZANidine HCL 4 MG TABLET PO SCH ×2 (09:11→21:06)
[2021-09-13] MEDS: FERROUS GLUCONATE 324 MG TAB PO SCH (09:11)
[2021-09-13] MEDS: FAMOTIDINE 20 MG TAB PO SCH ×2 (09:11→21:04)
[2021-09-13] MEDS: CASPOFUNGIN 50 MG in SODIUM CHLORIDE 0.9% 250 ML IV SCH (09:12)
[2021-09-13] MEDS: DAKIN'S SOLN 0.125% QUARTER STRENGTH 473 ML BTL EXT SCH (09:12)
[2021-09-13] MEDS: INSULIN GLARGINE SOLOSTAR 100 UNITS/ML 3 ML PEN SC SCH ×2 (09:13→21:04)
[2021-09-13] MEDS: INSULIN ASPART PER UNIT SC SCH ×4 (09:20→21:02)
--- NOTE | 2021-09-13 13:48 | Electrocardiogram Report ---
Test Reason : Blood Pressure : / mmHG Vent. Rate : 090 BPM Atrial Rate : 090 BPM P-R Int : 168 ms QRS Dur : 126 ms QT Int : 412 ms P-R-T Axes : 041 014 010 degrees QTc Int : 504 ms Normal sinus rhythm Right bundle branch block Abnormal ECG When compared with ECG of 11-SEP-2021 06:29, No significant change was found Confirmed by Kavon Nieto ([id number]) on 09/13/2021 1:47:45 PM Referred By: REFERRED SELF Confirmed By:Kavon Nieto
[2021-09-13 14:00] LABS: BUN Creatinine Ratio 19.7 (10-20); Calcium 8.9 mg/dl (8.5-10.1); Creatinine Clr Calc Pharmacy 106.9 ml/min; Est GFR (African American) 81.7 ml/min; Est GFR (Non-African American) 70.5 ml/min; Magnesium 1.9 mg/dl (1.8-2.4); Potassium 4.3 mmol/L (3.5-5.1)
--- NOTE | 2021-09-13 14:19 | Hospitalist Progress Note ---
Date of Service September 13, 2021 Assessment & Plan (1) Severe sepsis: (2) Sacral decubitus ulcer, stage IV: (3) Osteomyelitis: Plan: Per Dr. 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 Purulent drainage from sacral wound soaking dressings as per his . Patient with loose stools as per . No headache/chest pain/SOA/abdominal pain. Pt non smoker and no chronic intake of alcohols. Pt on 2L O2 at night at home. Of note, patient was in [facility] August 24-2020--> sacral decubitus s/p debridement where wound culture grew MDR Pseudomonas and Enterococcus faecalis. Per , debridement not deep enough due to elevated INR at the time of surgery per Surgeon. Patient had concerns about draining wounds with intermittent bleeding at time of discharge from [facility] 2 days ago. He is being managed for the following: #. Severe sepsis #. Infected sacral decubitus wound with OM/abscess #. 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 Also he had loose stool in his ostomy bag [admitting C. difficile negative]. Admitting vitals: 38.6C, 120 bpm, room air with admitting lactate of 2.9 Admitting WBC 22.73K, admitting procalcitonin 0.79 Admitting CTAP: Large infectious process centered around the lower sacrum and coccyx, also involving the right ischium with evidence of multifocal OM. Suggestive of lower sacrum and coccyx abscess. Myositis of the right gluteus pawel muscle with intramuscular gas and fluid. Bladder wall thickened with pericystic infiltration, suspicious for cystitis. 08/24/2021 outpatient urine culture: E faecalis and MDR Pseudomonas aeruginosa. Infected sacral decubitus wound with underlying abscess/osteomyelitis: Recent debridement in [facility]--> see above Imaging--> see above 09/05 Buttock Cx: Taina albicans/dubliniensis + Ps. aeru (resistant to Meropenem) Surgery on board: ~ 09/06/21-->Incision and Drainage and Debridement Sacral Tissue Down to Bone, 15cm x 11cm - Agusto Chaudhry, DO ~ 09/06/21 Operative cultures sent: 09/06 buttock culture: E. Faecium VRE, Taina albicans/dubliniensis, GNB. Sensitivity pending, E.faecium sensitive to Dapto 09/06 sacrum wound culture: E Faecium VRE, Taina albicans/dubliniensis ~ 09/08/21 ---> Revision I&D of the sacral decubitus ulcer by Agusto Weeks, DO CAUTI - likely not after C/S and ID eval History of recurrent UTIs on chronic methenamine suppression treatment. Neurogenic bladder with suprapubic catheter in situ. Recent urine culture--> see above Admitting urine culture: Yeast not Taina albicans/dub ID evaluated: Believes suprapubic catheter unlikely to not yield pathogen, since we have a source of infection, hence will not direct treatment at the urinary tract. Patient afebrile, WBC trending down. Resume warfarin per surgery, follow-up wound care clinic on Wednesday with Dr. Chaudhry for further incision and debridement plan/discussion. Continue with daptomycin 09/06 and meropenem 09/06 --> switched to cefepime 09/09 based on C/S and upon further d/w ID on 09/09 Infectious disease evaluated the patient: Continue daptomycin, switch meropenem to cefepime, fluconazole 400 mg oral daily. During therapy, CK, CMP and CBC with differential weekly. Continue therapy for 6 weeks starting 09/06/2021. Obtain CRP weekly until 2 months after stopping therapy. Follow-up with infectious disease as an outpatient. PICC line consent obtained, will get PICC line. Continue with daptomycin and cefepime. Get baseline EKG for QTC, initiate oral fluconazole, might need to touch base with ID if QTC still prolonged on repeat EKG. 09/13/2021 Wound culture & sensitivities revealing multidrug-resistant Pseudomonas Changed cefepime to ceftazidime/avibactam Day 3 QT prolonged, change fluconazole to caspofungin Continue daptomycin IV Discussed with Lashell Hernandez Gen Surg- plan for repeat debridement on #. History of DVT Patient on Coumadin, INR therapeutic at admission, IVC filter placed 11 years ago per patient. Patient received vitamin K to bring down INR for preparation for OT. Patient also received 4 units of FFP due to elevation in his APTT prior to the OR. Warfarin resumed 09/09 per surgery recommendation. Date PT/INR, continue to monitor hemoglobin. SCDs until therapeutic INR. 09/13/2021 INR 1.1 per Gen Surg- hold Coumadin 7.5 mg daily heparin every 8 hours SC for DVT prophylaxis #. Acute on chronic anemia, Likely from acute blood loss secondary to recent procedure Baseline hemoglobin around 7 as of 08/2021 Admitting hemoglobin of 8.4 I&D 09/06--> Hb dropped to 6.6---> status post 1 unit PRBC. Hemoglobin stable around 7.5 currently. Monitor hemoglobin daily 09/13/2021 Hemoglobin 9.1 Iron level 22 No signs of active bleeding Stool fecal occult blood test negative, however has history of colonic polyps per patient's , will consult GI GI consulted No EGD for now Continue Protonix Monitor closely Will give IV Venofer #. Other chronic medical condition: HTN, HLD, DM2 DM w/ suboptimal control as of recent hemoglobin A1c of 8.8 last July, Hold antihypertensive for concerns of hypotension from sepsis/postop. Resume when able. Resume other meds when able. #DVT prophylaxis: heparin SC, SCDs Full code Patient's Ms. Rody Rodriguez, contact #[phone]. Disposition: Pending Admission and Anticipated Discharge Date Admission Date: September 06, 2021 Subjective ff up for osteomyelitis, etc seen resting in bed, comfortable states he feels fine overall no chest pain, dyspnea, palpitations, dizziness no back pain appetite is good no other symptoms Review of Systems Review of Systems: all noted and negative except for above Physical Exam Physical Exam: General- oriented x 3, not in distress, speaks in sentences with no effort or accessory muscle use Eyes- anicteric Neck- no JVD Lungs- clear BS BL no crackles Heart- normal rate, regular rhythm; no murmurs Abdomen- normal bowel sounds, nondistended, soft, nontender Extremities- no pretibial edema, no calf tenderness Neuro- alert, oriented x 3; no gross focal neurologic deficits Skin- warm & dry Results & Data Results & Data ([facility]) Vital Signs (Past 12 Hours) Vital Signs Temp Pulse Pulse Resp BP Pulse Ox 09/13/21 11:30 36.6 C 91 H 20 125/75 95 09/13/21 08:00 78 09/13/21 07:47 36.3 C L 84 20 108/65 98 09/13/21 04:55 36.4 C L 82 20 107/57 L 99 all noted and reviewed including below
[2021-09-13] MEDS: CYCLOBENZAPRINE HCL 5 MG TAB PO SCH (21:03)
[2021-09-13] MEDS: HYOSCYAMINE SULFATE 0.125 MG TAB PO SCH (21:04)
[2021-09-14] MEDS: HEPARIN SOD 5,000 UNIT/0.5 ML VIAL SQ SCH ×3 (05:46→20:49)
[2021-09-14] MEDS: DAPTOMYCIN IV SCH (05:46)
[2021-09-14 06:27] LABS: Basophils # (auto) 0.04 K/uL (0-0.2); Basophils % (auto) 0.4 %; Eosinophils % (auto) 2.8 %; Hemoglobin 8.5 g/dL (14.0-18.0); Immature Granulocytes # (auto) 0.07 K/uL (0.00-0.02); Immature Granulocytes % (auto) 0.7 %; Lymphocytes # (auto) 2.44 K/uL (1.2-3.4); Lymphocytes % (auto) 22.8 %; Mean Corpuscular Hemoglobin 27.6 pg (25-34); Mean Corpuscular Hgb Conc 30.4 g/dL (32-36); Mean Corpuscular Volume 90.9 fL (80-100); Mean Platelet Volume 8.8 fL (7.4-10.4); Monocytes # (auto) 0.61 K/uL (0.11-0.59); Monocytes % (auto) 5.7 %; Neutrophils # (auto) 7.24 K/uL (1.4-6.5); Neutrophils % (auto) 67.6 %; Platelet Count 312 K/uL (130-400); RDW Coefficient of Variation 18.5 % (11.5-14.5); Red Blood Count 3.08 M/uL (4.7-6.1)
[2021-09-14 06:52] LABS: INR 1.2 (0.9-1.1); Prothrombin Time 11.6 Seconds (9.0-12.0)
[2021-09-14] MEDS: ADVANCED PROBIOTIC 1250 MG CAPSULE PO SCH (08:29)
[2021-09-14] MEDS: tiZANidine HCL 4 MG TABLET PO SCH ×2 (08:29→20:48)
[2021-09-14] MEDS: GABAPENTIN 800 MG TAB PO SCH ×2 (08:29→20:48)
[2021-09-14] MEDS: PANTOprazole 40 MG TAB PO SCH (08:30)
[2021-09-14] MEDS: FAMOTIDINE 20 MG TAB PO SCH ×2 (08:30→20:47)
[2021-09-14] MEDS: BACLOFEN 10 MG TAB PO SCH ×4 (08:30→20:46)
[2021-09-14] MEDS: FERROUS GLUCONATE 324 MG TAB PO SCH (08:30)
[2021-09-14] MEDS: allopurinoL 100 MG TAB PO SCH ×2 (08:30→20:48)
[2021-09-14] MEDS: MAGNESIUM OXIDE 400 MG TAB PO SCH ×2 (08:30→20:48)
[2021-09-14] MEDS: MULTIVITAMIN TAB PO SCH (08:30)
[2021-09-14] MEDS: CASPOFUNGIN 50 MG in SODIUM CHLORIDE 0.9% 250 ML IV SCH (08:40)
[2021-09-14] MEDS: DAKIN'S SOLN 0.125% QUARTER STRENGTH 473 ML BTL EXT SCH (08:41)
[2021-09-14] MEDS: INSULIN ASPART PER UNIT SC SCH ×4 (09:05→20:46)
[2021-09-14] MEDS: INSULIN GLARGINE SOLOSTAR 100 UNITS/ML 3 ML PEN SC SCH ×2 (09:06→20:50)
--- NOTE | 2021-09-14 14:52 | Hospitalist Progress Note ---
Date of Service September 14, 2021 Assessment & Plan (1) Severe sepsis: (2) Sacral decubitus ulcer, stage IV: (3) Osteomyelitis: Plan: Per Dr. 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 Purulent drainage from sacral wound soaking dressings as per his . Patient with loose stools as per . No headache/chest pain/SOA/abdominal pain. Pt non smoker and no chronic intake of alcohols. Pt on 2L O2 at night at home. Of note, patient was in [facility] August 24-2020--> sacral decubitus s/p debridement where wound culture grew MDR Pseudomonas and Enterococcus faecalis. Per , debridement not deep enough due to elevated INR at the time of surgery per Surgeon. Patient had concerns about draining wounds with intermittent bleeding at time of discharge from [facility] 2 days ago. He is being managed for the following: #. Severe sepsis #. Infected sacral decubitus wound with OM/abscess #. 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 Also he had loose stool in his ostomy bag [admitting C. difficile negative]. Admitting vitals: 38.6C, 120 bpm, room air with admitting lactate of 2.9 Admitting WBC 22.73K, admitting procalcitonin 0.79 Admitting CTAP: Large infectious process centered around the lower sacrum and coccyx, also involving the right ischium with evidence of multifocal OM. Suggestive of lower sacrum and coccyx abscess. Myositis of the right gluteus pawel muscle with intramuscular gas and fluid. Bladder wall thickened with pericystic infiltration, suspicious for cystitis. 08/24/2021 outpatient urine culture: E faecalis and MDR Pseudomonas aeruginosa. Infected sacral decubitus wound with underlying abscess/osteomyelitis: Recent debridement in [facility]--> see above Imaging--> see above 09/05 Buttock Cx: Taina albicans/dubliniensis + Ps. aeru (resistant to Meropenem) Surgery on board: ~ 09/06/21-->Incision and Drainage and Debridement Sacral Tissue Down to Bone, 15cm x 11cm - Agusto Chaudhry, DO ~ 09/06/21 Operative cultures sent: 09/06 buttock culture: E. Faecium VRE, Taina albicans/dubliniensis, GNB. Sensitivity pending, E.faecium sensitive to Dapto 09/06 sacrum wound culture: E Faecium VRE, Taina albicans/dubliniensis ~ 09/08/21 ---> Revision I&D of the sacral decubitus ulcer by Agusto Weeks, DO CAUTI - likely not after C/S and ID eval History of recurrent UTIs on chronic methenamine suppression treatment. Neurogenic bladder with suprapubic catheter in situ. Recent urine culture--> see above Admitting urine culture: Yeast not Taina albicans/dub ID evaluated: Believes suprapubic catheter unlikely to not yield pathogen, since we have a source of infection, hence will not direct treatment at the urinary tract. Patient afebrile, WBC trending down. Resume warfarin per surgery, follow-up wound care clinic on Wednesday with Dr. Chaudhry for further incision and debridement plan/discussion. Continue with daptomycin 09/06 and meropenem 09/06 --> switched to cefepime 09/09 based on C/S and upon further d/w ID on 09/09 Infectious disease evaluated the patient: Continue daptomycin, switch meropenem to cefepime, fluconazole 400 mg oral daily. During therapy, CK, CMP and CBC with differential weekly. Continue therapy for 6 weeks starting 09/06/2021. Obtain CRP weekly until 2 months after stopping therapy. Follow-up with infectious disease as an outpatient. PICC line consent obtained, will get PICC line. Continue with daptomycin and cefepime. Get baseline EKG for QTC, initiate oral fluconazole, might need to touch base with ID if QTC still prolonged on repeat EKG. 09/14/2021 Wound culture & sensitivities revealing multidrug-resistant Pseudomonas Changed cefepime to ceftazidime/avibactam Day 4 QT prolonged, change fluconazole to caspofungin Day 4 Continue daptomycin IV Discussed with Lashell Hernandez: will need to finish 6 week course of IV abx and antifungal Gen Surg- plan for repeat debridement on #. History of DVT Patient on Coumadin, INR therapeutic at admission, IVC filter placed 11 years ago per patient. Patient received vitamin K to bring down INR for preparation for OT. Patient also received 4 units of FFP due to elevation in his APTT prior to the OR. Warfarin resumed 09/09 per surgery recommendation. Date PT/INR, continue to monitor hemoglobin. SCDs until therapeutic INR. 09/14/2021 INR 1.1 per Gen Surg- hold Coumadin 7.5 mg daily heparin every 8 hours SC for DVT prophylaxis #. Acute on chronic anemia, Likely from acute blood loss secondary to recent procedure Baseline hemoglobin around 7 as of 08/2021 Admitting hemoglobin of 8.4 I&D 09/06--> Hb dropped to 6.6---> status post 1 unit PRBC. Hemoglobin stable around 7.5 currently. Monitor hemoglobin daily 09/13/2021 Hemoglobin 8.5 Iron level 22 No signs of active bleeding Stool fecal occult blood test negative, however has history of colonic polyps per patient's , will consult GI GI consulted No EGD for now Continue Protonix no signs of GI bleed Will give IV Venofer #. Other chronic medical condition: HTN, HLD, DM2 DM w/ suboptimal control as of recent hemoglobin A1c of 8.8 last July, Hold antihypertensive for concerns of hypotension from sepsis/postop. Resume when able. Resume other meds when able. #DVT prophylaxis: heparin SC, SCDs Full code Patient's Ms. Rody Rodriguez, contact #[phone]. Disposition: Pending Admission and Anticipated Discharge Date Admission Date: September 06, 2021 Subjective ff up for osteomyelitis, etc seen resting in bed, comfortable states he feels fine overall mild discomfort on the sacral ulcer area no chest pain, dyspnea, palpitations, dizziness no fever/chills appetite is good no other symptoms Review of Systems Review of Systems: all noted and negative except for above Physical Exam 2 Physical Exam: General- oriented x 3, not in distress, speaks in sentences with no effort or accessory muscle use Eyes- anicteric Neck- no JVD Lungs- clear breath sounds , no crackles/wheezing bilaterally Heart- normal rate, regular rhythm; no murmurs Abdomen- normal bowel sounds, nondistended, soft, nontender Extremities- no pretibial edema, no calf tenderness Neuro- alert, oriented x 3; no gross focal neurologic deficits Skin- warm & dry Results & Data Results & Data ([facility]) Vital Signs (Past 12 Hours) Vital Signs Temp Pulse Pulse Resp BP Pulse Ox 09/14/21 11:25 36.5 C 83 18 148/80 H 95 09/14/21 07:17 80 09/14/21 06:32 36.4 C L 93 H 20 122/61 09/14/21 03:34 36.7 C 84 20 97/59 L 99 all noted and reviewed including below
[2021-09-14] MEDS: CYCLOBENZAPRINE HCL 5 MG TAB PO SCH (20:47)
[2021-09-14] MEDS: HYOSCYAMINE SULFATE 0.125 MG TAB PO SCH (20:48)
--- NOTE | 2021-09-15 05:31 | Electrocardiogram Report ---
Test Reason : Blood Pressure : / mmHG Vent. Rate : 097 BPM Atrial Rate : 098 BPM P-R Int : 194 ms QRS Dur : 130 ms QT Int : 378 ms P-R-T Axes : 039 016 -09 degrees QTc Int : 480 ms Normal sinus rhythm Possible Left atrial enlargement Right bundle branch block Possible Inferior infarct , age undetermined Abnormal ECG When compared with ECG of 12-SEP-2021 18:28, No significant change was found Confirmed by aKvon Nieto ([id number]) on 09/15/2021 5:31:07 AM Referred By: REFERRED SELF Confirmed By:Kavon Nieto
[2021-09-15] MEDS: HEPARIN SOD 5,000 UNIT/0.5 ML VIAL SQ SCH ×3 (05:58→20:59)
[2021-09-15] MEDS: DAPTOMYCIN IV SCH (05:58)
[2021-09-15] MEDS: INSULIN ASPART PER UNIT SC SCH ×4 (08:19→21:03)
[2021-09-15] MEDS: ADVANCED PROBIOTIC 1250 MG CAPSULE PO SCH (08:20)
[2021-09-15] MEDS: MULTIVITAMIN TAB PO SCH (08:20)
[2021-09-15] MEDS: GABAPENTIN 800 MG TAB PO SCH ×2 (08:20→20:58)
[2021-09-15] MEDS: BACLOFEN 10 MG TAB PO SCH ×4 (08:20→21:02)
[2021-09-15] MEDS: MAGNESIUM OXIDE 400 MG TAB PO SCH ×2 (08:20→21:01)
[2021-09-15] MEDS: tiZANidine HCL 4 MG TABLET PO SCH ×2 (08:20→20:57)
[2021-09-15] MEDS: CASPOFUNGIN 50 MG in SODIUM CHLORIDE 0.9% 250 ML IV SCH (08:21)
[2021-09-15] MEDS: FERROUS GLUCONATE 324 MG TAB PO SCH (08:21)
[2021-09-15] MEDS: FAMOTIDINE 20 MG TAB PO SCH ×2 (08:21→20:58)
[2021-09-15] MEDS: allopurinoL 100 MG TAB PO SCH ×2 (08:21→20:58)
[2021-09-15] MEDS: PANTOprazole 40 MG TAB PO SCH (08:21)
[2021-09-15] MEDS: INSULIN GLARGINE SOLOSTAR 100 UNITS/ML 3 ML PEN SC SCH ×2 (08:22→21:02)
[2021-09-15] MEDS: DAKIN'S SOLN 0.125% QUARTER STRENGTH 473 ML BTL EXT SCH (08:22)
[2021-09-15 09:05] LABS: INR 1.1 (0.9-1.1); Prothrombin Time 11.1 Seconds (9.0-12.0)
--- NOTE | 2021-09-15 09:32 | Surgery Progress Note ---
Date of Service September 15, 2021 Assessment & Plan (1) Sacral decubitus ulcer, stage IV: Plan: Patient here with sacral decubitus ulcer, debrided on 09/06 & 09/08 Wound care following for current dressing recommendations Coumadin was held over the wknd, INR today 1.1. Continue to hold Planning to proceed with further debridement in the OR tomorrow with Dr. Chaudhry NPO at midnight Admission and Anticipated Discharge Date Admission Date: September 06, 2021 Subjective Patient offers no complaints. Says he only has very minimal discomfort in sacral region. Dressing changes were continued over the weekend. Physical Exam Physical Exam: awake/alert Results & Data ([facility]) Vital Signs (Past 12 Hours) Vital Signs Temp Pulse Pulse Resp BP Pulse Ox 09/15/21 08:02 36.4 C L 80 20 153/78 H 97 09/15/21 07:23 76 09/15/21 03:34 36.5 C 69 16 90/54 L 100 09/15/21 00:50 77 09/14/21 23:48 36.4 C L 81 18 110/66 96 PG Care Time/CCT Total # of Minutes Spent Total Time Spent with Patient: Total time spent is greater than 50% in coordination of care (as documented) at patient's floor/unit and/or counseling patient: Coding Level of Care Code None Diagnoses Sacral decubitus ulcer, stage IV L89.154
--- NOTE | 2021-09-15 13:29 | Hospitalist Progress Note ---
Date of Service September 15, 2021 Assessment & Plan (1) Severe sepsis: (2) Sacral decubitus ulcer, stage IV: (3) Osteomyelitis: Plan: Per Dr. 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 Purulent drainage from sacral wound soaking dressings as per his . Patient with loose stools as per . No headache/chest pain/SOA/abdominal pain. Pt non smoker and no chronic intake of alcohols. Pt on 2L O2 at night at home. Of note, patient was in [facility] August 24-2020--> sacral decubitus s/p debridement where wound culture grew MDR Pseudomonas and Enterococcus faecalis. Per , debridement not deep enough due to elevated INR at the time of surgery per Surgeon. Patient had concerns about draining wounds with intermittent bleeding at time of discharge from [facility] 2 days ago. He is being managed for the following: #. Severe sepsis #. Infected sacral decubitus wound with OM/abscess #. 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 Also he had loose stool in his ostomy bag [admitting C. difficile negative]. Admitting vitals: 38.6C, 120 bpm, room air with admitting lactate of 2.9 Admitting WBC 22.73K, admitting procalcitonin 0.79 Admitting CTAP: Large infectious process centered around the lower sacrum and coccyx, also involving the right ischium with evidence of multifocal OM. Suggestive of lower sacrum and coccyx abscess. Myositis of the right gluteus pawel muscle with intramuscular gas and fluid. Bladder wall thickened with pericystic infiltration, suspicious for cystitis. 08/24/2021 outpatient urine culture: E faecalis and MDR Pseudomonas aeruginosa. Infected sacral decubitus wound with underlying abscess/osteomyelitis: Recent debridement in [facility]--> see above Imaging--> see above 09/05 Buttock Cx: Taina albicans/dubliniensis + Ps. aeru (resistant to Meropenem) Surgery on board: ~ 09/06/21-->Incision and Drainage and Debridement Sacral Tissue Down to Bone, 15cm x 11cm - Agusto Chaudhry, DO ~ 09/06/21 Operative cultures sent: 09/06 buttock culture: E. Faecium VRE, Taina albicans/dubliniensis, GNB. Sensitivity pending, E.faecium sensitive to Dapto 09/06 sacrum wound culture: E Faecium VRE, Taina albicans/dubliniensis ~ 09/08/21 ---> Revision I&D of the sacral decubitus ulcer by Agusto Weeks, DO CAUTI - likely not after C/S and ID eval History of recurrent UTIs on chronic methenamine suppression treatment. Neurogenic bladder with suprapubic catheter in situ. Recent urine culture--> see above Admitting urine culture: Yeast not Taina albicans/dub ID evaluated: Believes suprapubic catheter unlikely to not yield pathogen, since we have a source of infection, hence will not direct treatment at the urinary tract. Patient afebrile, WBC trending down. Resume warfarin per surgery, follow-up wound care clinic on Wednesday with Dr. Chaudhry for further incision and debridement plan/discussion. Continue with daptomycin 09/06 and meropenem 09/06 --> switched to cefepime 09/09 based on C/S and upon further d/w ID on 09/09 Infectious disease evaluated the patient: Continue daptomycin, switch meropenem to cefepime, fluconazole 400 mg oral daily. During therapy, CK, CMP and CBC with differential weekly. Continue therapy for 6 weeks starting 09/06/2021. Obtain CRP weekly until 2 months after stopping therapy. Follow-up with infectious disease as an outpatient. PICC line consent obtained, will get PICC line. Continue with daptomycin and cefepime. Get baseline EKG for QTC, initiate oral fluconazole, might need to touch base with ID if QTC still prolonged on repeat EKG. 09/15/2021 Wound culture & sensitivities revealing multidrug-resistant Pseudomonas Changed cefepime to ceftazidime/avibactam Day 5 QT prolonged, changed fluconazole to caspofungin Day 5 Continue daptomycin IV Discussed with Lashell Hernandez: will need to finish 6 week course of IV abx and antifungal Gen Surg- plan for repeat debridement on #. History of DVT Patient on Coumadin, INR therapeutic at admission, IVC filter placed 11 years ago per patient. Patient received vitamin K to bring down INR for preparation for OT. Patient also received 4 units of FFP due to elevation in his APTT prior to the OR. Warfarin resumed 09/09 per surgery recommendation. Date PT/INR, continue to monitor hemoglobin. SCDs until therapeutic INR. 09/15/2021 INR 1.1 per Gen Surg- hold Coumadin 7.5 mg daily heparin every 8 hours SC for DVT prophylaxis #. Acute on chronic anemia, Likely from acute blood loss secondary to recent procedure Baseline hemoglobin around 7 as of 08/2021 Admitting hemoglobin of 8.4 I&D 09/06--> Hb dropped to 6.6---> status post 1 unit PRBC. Hemoglobin stable around 7.5 currently. Monitor hemoglobin daily 09/15/2021 Hemoglobin 8.5 Iron level 22 No signs of active bleeding Stool fecal occult blood test negative, however has history of colonic polyps per patient's , will consult GI GI consulted No EGD for now Continue Protonix no signs of GI bleed given IV Venofer #. Other chronic medical condition: HTN, HLD, DM2 DM w/ suboptimal control as of recent hemoglobin A1c of 8.8 last July, Hold antihypertensive for concerns of hypotension from sepsis/postop. Resume when able. Resume other meds when able. #DVT prophylaxis: heparin SC, SCDs Full code Patient's Ms. Rody Rodriguez, contact #[phone]. Disposition: Pending Admission and Anticipated Discharge Date Admission Date: September 06, 2021 Subjective ff up for osteomyelitis, etc seen resting in bed, not in distress comfortable states he feels fine overall no new symptoms no chest pain, dyspnea, palpitations, dizziness no other symptoms Review of Systems Review of Systems: all noted and negative except for above Physical Exam Physical Exam: General- oriented x 3, not in distress, speaks in sentences with no effort or accessory muscle use Eyes- anicteric Neck- no JVD Lungs- clear breath sounds , no crackles BL Heart- normal rate, regular rhythm; no murmurs Abdomen- normal bowel sounds, nondistended, soft, nontender Extremities- no pretibial edema, no calf tenderness Neuro- alert, oriented x 3; no gross focal neurologic deficits Skin- warm & dry Results & Data Results & Data ([facility]) Vital Signs (Past 12 Hours) Vital Signs Temp Pulse Pulse Resp BP Pulse Ox 09/15/21 11:08 36.4 C L 94 H 20 147/70 H 98 09/15/21 08:02 36.4 C L 80 20 153/78 H 97 09/15/21 07:23 76 09/15/21 03:34 36.5 C 69 16 90/54 L 100 all noted and reviewed including below
--- NOTE | 2021-09-15 17:37 | Anesthesiology Consultation ---
Date of Service September 15, 2021 Assessment & Plan (1) Encounter for pre-operative examination: Chart Review Chart Review: Acceptable Risk for Surgery and Patient NOT seen in Pre Admission Testing Consults Requested none History Surgery Operation Date: 09/06/21 12:00 Proposed Procedures p Incision and Drainage General - Agusto Chaudhry DO Operation Date: 09/08/21 07:00 Proposed Procedures p Incision and Drainage Sacral Decubitus - Agusto Chaudhry DO Operation Date: 09/08/21 08:00 Proposed Procedures p Incision and Drainage General - Agusto Chauhdry DO Operation Date: 09/16/21 11:15 Proposed Procedures p Incisional Debridement of Sacral Ulcer - Agusto Chaudhry DO Height/Weight Height: 5 ft 11 in Weight: 159.8 kg Allergies Allergy/AdvReac Type Severity Reaction Status Date / Time codeine Allergy Severe THROAT Verified 09/08/21 08:34 SWELLS latex Allergy Intermediate welts Verified 09/08/21 08:34 piperacillin Allergy Intermediate RASH Verified 09/08/21 08:34 Sulfa (Sulfonamide Allergy Intermediate HIVES Verified 09/08/21 08:34 Antibiotics) tazobactam Allergy Intermediate RASH Verified 09/08/21 08:34 aztreonam Allergy Unknown unknown Verified 09/08/21 08:34 metoclopramide [From Reglan] AdvReac Mild lethargy Verified 09/08/21 08:34 Medications Home Medications Medication Instructions Recorded Confirmed Last Taken allopurinol 100 mg tablet 100 mg PO BID 05/07/18 09/05/21 09/05/21 ferrous gluconate 324 mg (38 mg 324 mg PO QAM 05/07/18 09/05/21 09/05/21 iron) tablet furosemide 40 mg tablet 40 mg PO BID 05/07/18 09/05/21 09/05/21 gabapentin 800 mg tablet 800 mg PO BID 05/07/18 09/05/21 09/05/21 magnesium oxide 400 mg (241.3 mg 400 mg PO BID 05/07/18 09/05/21 09/05/21 12:00 magnesium) tablet multivitamin 1 tab PO QAM 05/07/18 09/05/21 09/05/21 pantoprazole 40 mg tablet,delayed 40 mg PO QAM 05/07/18 09/05/21 09/05/21 release ropinirole 1 mg tablet 1 mg PO QID 05/07/18 09/05/21 09/05/21 18:00 escitalopram oxalate 20 mg tablet 20 mg PO QAM tab 08/21/19 09/05/21 09/05/21 insulin human U-100 NPH-regulr 56 unit SUBCUT BID 08/21/19 09/05/21 09/05/21 70-30 mix 100 unit/mL subcutaneous susp (Novolin 70/30 U-100 Insulin) warfarin 5 mg tablet 5 mg PO 3XWK tab 08/21/19 09/05/21 09/04/21 atorvastatin 40 mg tablet 40 mg PO HS 08/24/19 09/05/21 09/04/21 baclofen 10 mg tablet 10 mg PO QID 09/22/19 09/05/21 09/05/21 18:00 cyclobenzaprine 10 mg tablet 15 mg PO HS 03/01/20 09/05/21 09/04/21 hyoscyamine sulfate 0.125 mg tablet 0.125 mg PO QPM 03/01/20 09/05/21 09/05/21 potassium chloride 10 mEq 10 meq PO BIDM 03/01/20 09/05/21 09/05/21 tablet,extended release spironolactone 25 mg tablet 25 mg PO QAM 03/01/20 09/05/21 09/05/21 (Aldactone) tizanidine 4 mg tablet 4 mg PO BID 03/01/20 09/05/21 09/05/21 12:00 Medical Marijuana See Rx Instructions .ROUTE .COMPLEX 03/26/20 09/05/21 09/05/21 methenamine hippurate 1 gram tablet 1 g PO BID 30 Days #60 tab 04/02/20 09/05/21 09/05/21 12:00 ascorbic acid (vitamin C) 500 mg 250 mg PO TID 12/03/20 09/05/21 09/05/21 tablet (Vitamin C) famotidine 20 mg tablet (Acid 20 mg PO BID 12/03/20 09/05/21 09/05/21 Financial Sales Advisor (famotidine)) zinc sulfate 50 mg zinc (220 mg) 50 mg PO QDL 12/03/20 09/05/21 09/05/21 capsule Lactobacillus acidoph-L.bulgaricus 1 tab PO BID 0409/05/21 09/05/21 1 million cell tablet (Floranex) acetaminophen 500 mg capsule 1,000 mg PO Q6H PRN 01/03/21 09/05/21 12/27/20 12:00 bethanechol chloride 5 mg tablet 5 mg PO TID 01/03/21 09/05/21 09/05/21 18:00 insulin regular human 100 unit/mL 1 sliding scale dose SUBCUT 01/03/21 09/05/21 09/05/21 injection solution (Novolin R USEASDIRECTD Regular U-100 Insulin) mecobalamin-levomefolate 1 tab PO BID 01/03/21 09/05/21 09/05/21 calcium-pyridoxal phos 3 mg-35 mg-2 mg tablet (C-Uvsugs-N2-B12) menthol 0.44 %-zinc oxide 20.6 % 1 applic TOPICAL QID PRN 01/03/21 09/05/21 01/09/21 23:55 topical ointment (Calmoseptine) methenamin 81.6 mg-hyoscyam 0.12 1 tab PO QPM 01/03/21 09/05/21 09/05/21 mg-methblue 10.8 ts-em-innxsiv tablet nystatin 100,000 unit/gram topical 1 applic TOPICAL BID PRN 01/03/21 09/05/21 01/10/21 08:00 powder nystatin-triamcinolone 100,000 1 applic TOPICAL BID 01/03/21 09/05/21 09/05/21 unit/g-0.1 % topical cream triamcinolone acetonide 0.1 % 1 applic TOPICAL BID PRN 01/03/21 09/05/21 01/10/21 08:30 topical cream irbesartan 75 mg tablet 75 mg PO DAILY 06/02/21 09/05/21 09/05/21 warfarin 7.5 mg tablet 7.5 mg PO 4XWK 06/02/21 09/05/21 09/03/21 metformin 1,000 mg tablet 1,000 mg PO BIDM 06/14/21 09/05/21 09/05/21 cefdinir 300 mg capsule 300 mg PO BID 06/23/21 09/05/21 09/05/21 Active Medications Generic Name Dose Route Start Last Admin Trade Name Fre PRN Reason Stop Dose Admin Acetaminophen 650 mg 09/06/21 04:14 09/10/21 22:48 Acetaminophen 325 Mg Tab PO 10/06/21 04:13 650 mg Q4H PRN Administration Pain or Fever Allopurinol 100 mg 09/06/21 09:00 09/15/21 08:21 Allopurinol 100 Mg Tab PO 10/06/21 08:59 100 mg BID JO Administration Baclofen 10 mg 09/06/21 09:00 09/15/21 17:38 Baclofen 10 Mg Tab PO 10/06/21 08:59 10 mg QID JO Administration Cyclobenzaprine HCl 15 mg 09/06/21 21:00 09/14/21 20:47 Cyclobenzaprine Hcl 5 Mg Tab PO 10/06/21 20:59 15 mg HS JO Administration Escitalopram Oxalate 20 mg 09/06/21 09:00 09/10/21 08:03 Escitalopram Oxalate 20 Mg Tab PO 10/06/21 08:59 20 mg QAM JO Administration Famotidine 20 mg 09/06/21 09:00 09/15/21 08:21 Famotidine 20 Mg Tab PO 10/06/21 08:59 20 mg BID JO Administration Ferrous Gluconate 324 mg 09/06/21 09:00 09/15/21 08:21 Ferrous Gluconate 324 Mg Tab PO 10/06/21 08:59 324 mg QAM JO Administration Gabapentin 800 mg 09/06/21 09:00 09/15/21 08:20 Gabapentin 800 Mg Tab PO 10/06/21 08:59 800 mg BID JO Administration Heparin Sodium (Beef Lung) 5 ml 09/09/21 18:37 09/13/21 13:48 Heparin 10 Unit/Ml 5 Ml Flush FLUSH 10/09/21 18:36 5 ml PRN PRN Administration Flush Heparin Sodium (Porcine) 5,000 units 09/11/21 22:00 09/15/21 14:12 Heparin Sod 5,000 Unit/0.5 Ml Vial SQ 10/11/21 21:59 5,000 units Q8 JO Administration Hyoscyamine 0.125 mg 09/06/21 21:00 09/14/21 20:48 Hyoscyamine Sulfate 0.125 Mg Tab PO 10/06/21 20:59 0.125 mg QPM JO Administration Daptomycin 875 mg/ Syringe 17.5 mls @ 8.75 mls/min 09/10/21 06:00 09/15/21 05:58 IV 10/22/21 05:59 8.75 mls/min Q24H JO Administration Protocol Ceftazidime/Avibactam 2.5 gm/ 62 mls @ 31 mls/hr 09/11/21 10:00 09/15/21 17:37 Sodium Chloride IV 10/23/21 09:14 31 mls/hr Q8H JO Administration Protocol Caspofungin 50 mg/ Sodium 260 mls @ 260 mls/hr 09/12/21 09:00 09/15/21 09:43 Chloride IV 10/24/21 08:59 Infused DAILY JO Infusion Insulin Aspart 0 units 09/07/21 11:30 09/15/21 17:37 Insulin Aspart Per Unit SC 10/06/21 04:59 8 units ACHS JO Administration Insulin Glargine 40 units 09/07/21 09:00 09/15/21 08:22 Insulin Glargine Solostar 100 Units/Ml 3 Ml Pen SC 10/07/21 08:59 40 units BID JO Administration Irbesartan 75 mg 09/06/21 09:00 09/06/21 08:33 Irbesartan 75 Mg Tab PO 10/06/21 08:59 75 mg DAILY JO Administration Lactobacillus Acidoph/Casei/Rhamnos 2 cap 09/06/21 09:00 09/15/21 08:20 Advanced Probiotic 1250 Mg Capsule PO 10/06/21 08:59 2 cap DAILY JO Administration Magnesium Oxide 400 mg 09/06/21 09:00 09/15/21 08:20 Magnesium Oxide 400 Mg Tab PO 10/06/21 08:59 400 mg BID JO Administration Miscellaneous 1 ea 09/06/21 08:00 09/15/21 08:22 Bethanechol~Order Awaiting Action N/A 10/06/21 07:59 Not Given QS [facility] Multivitamins 1 tab 09/06/21 09:00 09/15/21 08:20 Multivitamin Tab PO 10/06/21 08:59 1 tab QAM JO Administration Pantoprazole Sodium 40 mg 09/06/21 09:00 09/15/21 08:21 Pantoprazole 40 Mg Tab PO 10/06/21 08:59 40 mg QAM JO Administration Sodium Hypochlorite 1 appln 09/09/21 09:00 09/15/21 08:22 Dakin's Soln 0.125% Quarter Strength 1000 Ml Btl EXT 10/09/21 08:59 1 appln DAILY JO Administration Tizanidine HCl 4 mg 09/06/21 09:00 09/15/21 08:20 Tizanidine Hcl 4 Mg Tablet PO 10/06/21 08:59 4 mg BID JO Administration Warfarin Sodium 7.5 mg 09/11/21 16:00 09/11/21 17:55 Warfarin Sod 7.5 Mg Tab PO 10/11/21 15:59 7.5 mg DAILY@1600 JO Administration NPO Date Last Intake of Fluids: 09/06/21 Time Last Intake of Fluids: 08:00 Last Intake of Fluids Comment: sip of water with pills Date Last Intake of Solids: 09/04/21 Time Last Intake of Solids: 20:00 Past Medical History Medical History Anemia Asymptomatic bacteriuria Clostridium difficile infection (Unknown) CVA (cerebral vascular accident) DM type 2 (diabetes mellitus, type 2) Dyslipidemia Dysphagia Fever History of blood clots History of DVT (deep vein thrombosis) Hypertension Hypotension Ileus Kidney disease Leukocytosis Major depressive disorder, recurrent Obesity Occluded PICC line Positive urine culture Quadriplegia BRAIN INJURY 11 YRS AGO Seizure SIRS (systemic inflammatory response syndrome) Sleep apnea (Unknown) OXYGEN 2L/MIN NC HS Syncope 57 year old with know quadriplegia and new onset syncope with change in position UTI (urinary tract infection) RECENT [facility] ADMISION-D/C 12/06/20 Past Family History Family History Mother No pertinent family history Family history of diabetes mellitus Father Family hx of colon cancer Past Surgical History Surgical History (Updated 09/15/21 @ 17:42 by Alonso Vargas MD) History of colonoscopy 2010 History of open reduction and internal fixation (ORIF) procedure LEFT FEMUR Insertion of inferior vena caval filter (Unknown) Lithotripsy (Unknown) "laser lithotripsy left ureteral stone 03/17/11 " S/P debridement (09/06/21) Incision and Drainage and Debridement Sacral Tissue Down to Bone, 15cm x 11cm - Agusto Chaudhry, DO 09/06/21 S/P debridement (09/08/21) Excisional Debridement of Sacral Decubitus Ulcer, 76x49io Down to Bone - Agusto Chaudhry, DO 09/08/2021. Patient made ASA 4. Ketamine/versed/fentanyl sedation. Tolerated without incident. S/P knee surgery S/P tonsillectomy Suprapubic cystostomy (Unknown) IN PLACE Social History Smoking Status: Unknown if ever smoked Do You Dip or Chew Tobacco: No Hx Alcohol Use: No Hx Substance Use: No substance use type: marijuana Substance Use Type Other:: medical card at home with pt . Last Used Substance: Days (ago) Physical Exam Vital Signs Last Vital Signs Temp 36.3 C L 09/15/21 15:05 Pulse 71 09/15/21 15:26 Resp 20 09/15/21 15:05 BP 120/64 09/15/21 15:05 Pulse Ox 97 09/15/21 15:05 Testing Laboratory Results 09/14/21 05:52 09/13/21 13:31 PT 11.1 Seconds (9.0-12.0) 09/15/21 08:08 INR 1.1 (0.9-1.1) 09/15/21 08:08 APTT 46.6 Seconds (21.0-31.0) H* 09/06/21 08:08 Urine Color Yellow 09/06/21 00:40 Urine Appearance Cloudy (Clear) A 09/06/21 00:40 Urine pH 5.0 (4.5-7.5) 09/06/21 00:40 Ur Specific Ursa 1.017 (1.000-1.030) 09/06/21 00:40 Urine Protein Trace (Negative) H 09/06/21 00:40 Urine Glucose (UA) Negative (Negative) 09/06/21 00:40 Urine Ketones Trace (Negative) H 09/06/21 00:40 Urine Nitrite Negative (Negative) 09/06/21 00:40 Ur Leukocyte Esterase 3+ (Negative) H 09/06/21 00:40 Urine WBC (Auto) >30 /hpf (0-5) H 09/06/21 00:40 Urine RBC (Auto) 0-4 /hpf (0-4) 09/06/21 00:40 U Hyaline Cast (Auto) 1-5 /lpf (0-5) 09/06/21 00:40 U Epithel Cells (Auto) >30 /lpf (0-5) H 09/06/21 00:40 Urine Bacteria (Auto) Negative (Negative) 09/06/21 00:40 Blood Type A Positive 09/10/21 09:22 Antibody Screen NEGATIVE 09/10/21 09:22 09/06/21 13:15 Gram Stain - Final Sacrum Aerobic and Anaerobic Culture - Final Enterococcus faecium VRE 09/06/21 13:15 Gram Stain - Final Buttock Aerobic and Anaerobic Culture - Final Enterococcus faecium VRE Jocelyn albicans/dubliniensis Pseudomonas aeruginosa 09/06/21 13:15 Gram Stain - Final Sacrum Aerobic and Anaerobic Culture - Final Enterococcus faecium VRE Jocelyn albicans/dubliniensis 09/06/21 00:06 Aerobic Blood Culture - Final Blood No growth in Aerobic bottle after 5 days. Anaerobic Blood Culture - Final No growth in Anaerobic bottle after 5 days. 09/05/21 23:05 Aerobic Blood Culture - Final Blood No growth in Aerobic bottle after 5 days. Anaerobic Blood Culture - Final No growth in Anaerobic bottle after 5 days. 09/05/21 Unknown Gram Stain - Final Buttock Deep Wound Culture - Final Pseudomonas aeruginosa Jocelyn albicans/dubliniensis 09/06/21 00:40 Urine Culture - Final Urine,Clean Catch Yeast not Jocelyn albicans/dub 09/15/21 09/15/21 09/15/21 16:41 11:56 07:59 POC Glucose 235 H 228 H 166 H Electrocardiogram Date: 09/11/21 DICTATED BY:Kavon Nieto MD Test Reason : Blood Pressure : / mmHG Vent. Rate : 080 BPM Atrial Rate : 080 BPM P-R Int : 178 ms QRS Dur : 134 ms QT Int : 450 ms P-R-T Axes : 052 010 002 degrees QTc Int : 519 ms Normal sinus rhythm Right bundle branch block Abnormal ECG When compared with ECG of 10-SEP-2021 09:36, UT interval has decreased Questionable change in QRS axis Chest X-Ray Date: 09/05/21 SINGLE VIEW CHEST CLINICAL HISTORY: Sepsis FINDINGS: An AP, portable, semierect chest radiograph is compared to study dated 06/14/2021 and correlated with chest CT dated 06/18/2021. The examination is degraded by portable technique, apical lordotic positioning, and patient rotation. The heart is mildly enlarged. The pulmonary vasculature is nonconge sted. There is bibasilar atelectasis. The lungs and pleural spaces are otherwise clear. No pneumothorax is seen. The skeletal structures are osteopenic. Cerclage wires project over the left lower ribs. IMPRESSION: No acute cardiopulmonary abnormality. Echocardiogram Date: 03/17/20 EF: 65-70 LV Function: normal Other Findings: + RVH and + LVH
[2021-09-15] MEDS: HYOSCYAMINE SULFATE 0.125 MG TAB PO SCH (20:58)
[2021-09-15] MEDS: CYCLOBENZAPRINE HCL 5 MG TAB PO SCH (20:58)
[2021-09-16] MEDS: HEPARIN SOD 5,000 UNIT/0.5 ML VIAL SQ SCH ×3 (05:42→21:37)
[2021-09-16] MEDS: DAPTOMYCIN IV SCH (06:25)
[2021-09-16 08:03] LABS: INR 1.1 (0.9-1.1); Prothrombin Time 10.7 Seconds (9.0-12.0)
--- NOTE | 2021-09-16 08:29 | History & Physical Bridge Note ---
Date of Service September 16, 2021 History & Physical Bridge Note I have examined the patient, reviewed the History & Physical and in the interval since the performance of the History & Physical I have noted the following changes of clinical significance: no changes noted
[2021-09-16 08:41] LABS: Creatinine Clr Calc Pharmacy 132.6 ml/min; Est GFR (African American) 105.1 ml/min; Est GFR (Non-African American) 90.6 ml/min
[2021-09-16] MEDS: INSULIN ASPART PER UNIT SC SCH ×4 (08:51→21:35)
[2021-09-16] MEDS ORDERED: PROPOFOL IV EMULSION 10 MG/ML 20 ML VIAL IV ONE (09:09)
[2021-09-16] MEDS ORDERED: KETAMINE 50 MG/5 ML SYRINGE ONE (09:10)
[2021-09-16] MEDS ORDERED: MIDAZOLAM HCL 1 MG/ML 2ML VIAL ONE ×2 (09:10)
[2021-09-16] MEDS ORDERED: fentaNYL citrate 100 MCG/2 ML VIAL ONE (09:10)
[2021-09-16] MEDS ORDERED: ONDANSETRON INJ 2 MG/ML 2 ML VIAL ONE (09:14)
[2021-09-16] MEDS: INSULIN GLARGINE SOLOSTAR 100 UNITS/ML 3 ML PEN SC SCH ×2 (09:28→21:39)
[2021-09-16] MEDS: BACLOFEN 10 MG TAB PO SCH ×4 (09:30→21:36)
[2021-09-16] MEDS: FERROUS GLUCONATE 324 MG TAB PO SCH (09:30)
[2021-09-16] MEDS: FAMOTIDINE 20 MG TAB PO SCH ×2 (09:30→21:36)
[2021-09-16] MEDS: allopurinoL 100 MG TAB PO SCH ×2 (09:30→21:36)
[2021-09-16] MEDS: GABAPENTIN 800 MG TAB PO SCH ×2 (09:30→21:36)
[2021-09-16] MEDS: MAGNESIUM OXIDE 400 MG TAB PO SCH ×2 (09:31→21:36)
[2021-09-16] MEDS: PANTOprazole 40 MG TAB PO SCH (09:31)
[2021-09-16] MEDS: ADVANCED PROBIOTIC 1250 MG CAPSULE PO SCH (09:31)
[2021-09-16] MEDS: MULTIVITAMIN TAB PO SCH (09:31)
[2021-09-16] MEDS: DAKIN'S SOLN 0.125% QUARTER STRENGTH 473 ML BTL EXT SCH (09:32)
[2021-09-16] MEDS: tiZANidine HCL 4 MG TABLET PO SCH ×2 (09:32→21:37)
[2021-09-16] MEDS: CASPOFUNGIN 50 MG in SODIUM CHLORIDE 0.9% 250 ML IV SCH (09:35)
[2021-09-16] MEDS ORDERED: ePHEDrine sulfate 50 MG/ML AMP IV PRN (11:19)
[2021-09-16] MEDS ORDERED: fentaNYL citrate 100 MCG/2 ML VIAL IV PRN (11:19)
[2021-09-16] MEDS ORDERED: ONDANSETRON INJ 2 MG/ML 2 ML VIAL IV PRN (11:19)
[2021-09-16] MEDS ORDERED: ATROPINE SULFATE 0.1 MG/ML 10ML SYR IV PRN (11:19)
[2021-09-16] MEDS ORDERED: BUPIVACAINE/EPINEPHRINE 0.25% 1:200,000 30 ML VIAL ONE (12:11)
--- NOTE | 2021-09-16 13:04 | Post Operative Brief Note ---
PG Immediate Post Op with CF Date of Surgery September 16, 2021 Pre & Post Diagnosis Operation Date: 09/16/21 11:15 Pre-Op Diagnosis: Sacral decubitus, stage IV Post-Op Diagnosis: Sacral decubitus, stage IV I identified the patient and participated in the time-out.: Yes Procedure Operation Date: 09/16/21 11:15 Actual Procedures p Excisional Debridement of Sacral Ulcer down to Muscle Level 15cm x 11cm(Not Applicable) - Agusto Chaudhry DO Surgeon Agusto Chaudhry DO Cotton Roll Packer Emmanuel Friedman PA-C Estimated Blood Loss 20 Findings See Below Necrotic muscle and subcutaneous tissue around lateral and inferior portions of the wound Specimens Specimen Description: none Drains Martinez Catheter Anesthesia Type MAC Complications none Disposition Disposition: Recovery Room
--- NOTE | 2021-09-16 13:10 | Operative Report ---
PG Post Operative Report Pre & Post Diagnosis Operation Date: 09/16/21 11:15 Pre-Op Diagnosis: Sacral decubitus ulcer, stage IV Post-Op Diagnosis: Sacral decubitus ulcer, stage IV I identified the patient and participated in the time-out.: Yes Procedure Operation Date: 09/16/21 11:15 Actual Procedures p Excisional Debridement of Sacral Ulcer down to Muscle Level 15cm x 11cm(Not Applicable) - Agusto Chaudhry DO Surgeon Agusto Chaudhry DO Gun Stock Maker Emmanuel Friedman PA-C Estimated Blood Loss 20 Findings See Below Necrotic right gluteal muscle and subcutaneous tissue at lateral and inferior portions of wound Specimens None Drains None Anesthesia Type MAC Complications none Disposition Disposition: Recovery Room Indications 60 yo male with open sacral/right buttock wound Description of Procedure The patient was brought to the operating room and underwent MAC anesthesia without issue. At this time the patient was placed in the prone jackknife position. The right buttock and lower back were prepped and draped in the usual sterile fashion. Appropriate pre-operative antibiotics were administered. A timeout was called. The procedure was verified as Excisional debridement of right buttock and sacral ulcer. Surgical, anesthesia and nursing teams agreed and the procedure was begun. The right buttock wound was explored and there was devitalized/necrotic right gluteal muscle and subcutaneous tissue in the lateral and inferior portions of the wound. This tissue was sharply excised using electrocautery and healthy bleeding tissue was encountered. The wound was irrigated until clear. At this time hemostasis was achieved using electrocautery. Hemostasis was complete. At this time the incision was packed with a wet to dry Kerlix and a sterile dressing was applied. At this time the patient was awakened from anesthesia having remained stable throughout the entire case and transported to PACU in stable condition. The physician recycling assistant was present and scrubbed for the entire case. She was essential in positioning, prepping and draping the patient, retraction and exposure, placement of the dressing. I attest to the content of the Intraoperative Record and any orders documented therein. Any exceptions are noted below.
--- NOTE | 2021-09-16 13:43 | Anesthesiology Progress Note ---
Date of Service September 16, 2021 Anesthesia Post Procedure Vital Signs Vital Signs: Temp Pulse Pulse Pulse Resp BP Pulse Ox 09/16/21 13:35 99 H 16 113/63 100 09/16/21 13:25 94 H 13 127/67 100 09/16/21 13:15 36.5 C 93 H 17 154/88 H 100 09/16/21 13:08 36.5 C 104 H 14 138/74 92 09/16/21 11:03 36.5 C 73 20 91/57 L 96 09/16/21 10:16 67 09/16/21 08:11 36.3 C L 74 20 94/55 L 100 09/16/21 02:20 36.4 C L 72 18 113/65 97 09/15/21 23:54 71 09/15/21 19:39 36.6 C 70 18 158/62 H 96 09/15/21 15:26 71 09/15/21 15:05 36.3 C L 71 20 120/64 97 Pain Intensity Lower Back: Pain Intensity: 6 Transfer of Care Handoff Completed per policy Notes Mental Status: alert / awake / arousable and participated in evaluation Nausea / Vomiting: adequately controlled Pain: adequately controlled Airway Patency, RR, SpO2: stable & adequate BP & HR: stable & adequate Hydration State: stable & adequate Anesthetic Complications: no major complications apparent and Pt Satisfied with anesthetic care
--- NOTE | 2021-09-16 19:02 | Hospitalist Progress Note ---
Date of Service September 16, 2021 Assessment & Plan (1) Severe sepsis: (2) Sacral decubitus ulcer, stage IV: (3) Osteomyelitis: Plan: Per Dr. 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 Purulent drainage from sacral wound soaking dressings as per his . Patient with loose stools as per . No headache/chest pain/SOA/abdominal pain. Pt non smoker and no chronic intake of alcohols. Pt on 2L O2 at night at home. Of note, patient was in [facility] August 24-2020--> sacral decubitus s/p debridement where wound culture grew MDR Pseudomonas and Enterococcus faecalis. Per , debridement not deep enough due to elevated INR at the time of surgery per Surgeon. Patient had concerns about draining wounds with intermittent bleeding at time of discharge from [facility] 2 days ago. #. Severe sepsis #. Infected sacral decubitus wound with OM/abscess #. CAUTI Patient presented with low-grade fever, lethargy and poor appetite 1 day [employer] along with purulent drainage from sacral wound soaking dressings per his . Also he had loose stool in his ostomy bag [admitting C. difficile negative]. Admitting CTAP: Large infectious process centered around the lower sacrum and coccyx, also involving the right ischium with evidence of multifocal OM. Suggestive of lower sacrum and coccyx abscess. Myositis of the right gluteus pawel muscle with intramuscular gas and fluid. Bladder wall thickened with pericystic infiltration, suspicious for cystitis. 08/24/2021 outpatient urine culture: E faecalis and MDR Pseudomonas aeruginosa. Infected sacral decubitus wound with underlying abscess/osteomyelitis: ~ 09/06/21-->Incision and Drainage and Debridement Sacral Tissue Down to Bone, 15cm x 11cm - Agusto Chaudhry DO Operative cultures sent: 09/06 buttock culture: E. Faecium VRE, Taina albicans/dubliniensis, Pseudomonas: multidrug resistant, E.faecium sensitive to Dapto 09/06 sacrum wound culture: E Faecium VRE, Taina albicans/dubliniensis ~ 09/08/21 ---> Revision I&D of the sacral decubitus ulcer by Agusto Weeks DO ~09/16/21 --> s/p Excisional Debridement of Sacral Ulcer down to Muscle Level 15cm x 11cm(Not Applicable) - Agusto Chaudhry DO awaiting Gen Surg recommendation post repeat debridement real estate consultant also following patient need to off-load on the sacral decub ulcer ID consulted: Based on culture and sensitivities, following recommendations given: Daptomycin, ceftazidime/Avibactam, caspofungin times total of 6 weeks Daptomycin started September 06, 2021 Ceftazidime/avibactam started September 11, 2021 Caspofungin started September 11, [address] During therapy, CK, CMP and CBC with differential weekly. Obtain CRP weekly until 2 months after stopping therapy. Follow-up with infectious disease as an outpatient. CAUTI - likely not after C/S and ID eval History of recurrent UTIs on chronic methenamine suppression treatment. Neurogenic bladder with suprapubic catheter in situ. Recent urine culture--> see above Admitting urine culture: Yeast not Taina albicans/dub ID evaluated: Believes suprapubic catheter unlikely to not yield pathogen, since we have a source of infection, hence will not direct treatment at the urinary tract. #. History of DVT Patient on Coumadin, INR therapeutic at admission, IVC filter placed 11 years ago per patient. INR 1.1 Coumadin held in preparation for repeat debridement 09/16/2021 heparin every 8 hours SC for DVT prophylaxis Discuss with general surgery regarding when ok to resume Coumadin #. Acute on chronic anemia, Likely from acute blood loss secondary to recent procedure Baseline hemoglobin around 7 as of 08/2021 I&D 09/06--> Hb dropped to 6.6---> status post 1 unit PRBC. Hemoglobin stable around 8.5 currently. Iron level 22 No signs of active bleeding Stool fecal occult blood test negative, however has history of colonic polyps per patient's , consulted GI, no EGD for now. Continue Protonix no signs of GI bleed given IV Venofer #. Other chronic medical condition: HTN, HLD, DM2 DM w/ suboptimal control as of recent hemoglobin A1c of 8.8 last July, Hold antihypertensive for concerns of hypotension from sepsis/postop. Resume when able. Resume other meds when able. #DVT prophylaxis: heparin SC, SCDs Full code Patient's Ms. Rody Rodriguez, contact #[phone]. Disposition: Pending Admission and Anticipated Discharge Date Admission Date: September 06, 2021 Subjective Follow-up for sacral decubitus ulcer, osteomyelitis, etc. Status post repeat debridement today Seen resting in bed, comfortable, sitting up, not in distress Patient's at the bedside visiting Patient is in good spirits States he is fine overall Minimal pain over the surgical site No fevers or chills Appetite is great no chest pain, dyspnea, palpitations, dizziness Review of Systems Review of Systems: all noted and negative except for above Physical Exam Physical Exam: General- oriented x 3, not in distress, speaks in sentences with no effort or accessory muscle use Eyes- anicteric Neck- no JVD Lungs- clear BS BL Heart- normal rate, regular rhythm; no murmurs Abdomen- normal bowel sounds, nondistended, soft, nontender Extremities- no pretibial edema, no calf tenderness Neuro- alert, oriented x 3; no gross focal neurologic deficits Skin- warm & dry Results & Data Results & Data ([facility]) Vital Signs (Past 12 Hours) Vital Signs Temp Pulse Pulse Pulse Resp BP Pulse Ox 09/16/21 16:22 98 H 09/16/21 14:21 36.4 C L 90 18 104/65 92 09/16/21 13:45 36.3 C L 95 H 10 L 107/59 L 97 09/16/21 13:35 99 H 16 113/63 100 09/16/21 13:25 94 H 13 127/67 100 09/16/21 13:15 36.5 C 93 H 17 154/88 H 100 09/16/21 13:08 36.5 C 104 H 14 138/74 92 09/16/21 11:03 36.5 C 73 20 91/57 L 96 09/16/21 10:16 67 09/16/21 08:11 36.3 C L 74 20 94/55 L 100 all noted and reviewed including below
[2021-09-16] MEDS: HYOSCYAMINE SULFATE 0.125 MG TAB PO SCH (21:38)
[2021-09-16] MEDS: CYCLOBENZAPRINE HCL 5 MG TAB PO SCH (21:39)
[2021-09-17] MEDS: DAPTOMYCIN IV SCH (05:39)
[2021-09-17] MEDS: HEPARIN SOD 5,000 UNIT/0.5 ML VIAL SQ SCH ×3 (05:40→21:31)
[2021-09-17 05:56] LABS: Basophils # (auto) 0.03 K/uL (0-0.2); Basophils % (auto) 0.3 %; Eosinophils # (auto) 0.34 K/uL (0-0.5); Eosinophils % (auto) 3.2 %; Hematocrit (blood only) 27.9 % (42-52); Hemoglobin 8.3 g/dL (14.0-18.0); Immature Granulocytes # (auto) 0.03 K/uL (0.00-0.02); Immature Granulocytes % (auto) 0.3 %; Lymphocytes # (auto) 2.07 K/uL (1.2-3.4); Lymphocytes % (auto) 19.5 %; Mean Corpuscular Hemoglobin 27.6 pg (25-34); Mean Corpuscular Hgb Conc 29.7 g/dL (32-36); Mean Corpuscular Volume 92.7 fL (80-100); Mean Platelet Volume 8.7 fL (7.4-10.4); Monocytes # (auto) 0.67 K/uL (0.11-0.59); Monocytes % (auto) 6.3 %; Neutrophils # (auto) 7.45 K/uL (1.4-6.5); Neutrophils % (auto) 70.4 %; Platelet Count 262 K/uL (130-400); RDW Coefficient of Variation 18.3 % (11.5-14.5); RDW Standard Deviation 62.2 fL (36.4-46.3); Red Blood Count 3.01 M/uL (4.7-6.1); White Blood Count 10.59 K/uL (4.8-10.8)
[2021-09-17 06:04] LABS: INR 1.1 (0.9-1.1); Prothrombin Time 11.2 Seconds (9.0-12.0)
[2021-09-17 06:22] LABS: BUN Creatinine Ratio 24.7 (10-20); Calcium 8.7 mg/dl (8.5-10.1); Creatinine Clr Calc Pharmacy 135.5 ml/min; Est GFR (Non-African American) 92.3 ml/min; Potassium 4.5 mmol/L (3.5-5.1)
[2021-09-17] MEDS: INSULIN GLARGINE SOLOSTAR 100 UNITS/ML 3 ML PEN SC SCH (09:10)
[2021-09-17] MEDS: INSULIN ASPART PER UNIT SC SCH ×4 (09:16→21:30)
[2021-09-17] MEDS: MAGNESIUM OXIDE 400 MG TAB PO SCH ×2 (09:19→21:30)
[2021-09-17] MEDS: FERROUS GLUCONATE 324 MG TAB PO SCH (09:19)
[2021-09-17] MEDS: allopurinoL 100 MG TAB PO SCH ×2 (09:19→21:28)
[2021-09-17] MEDS: GABAPENTIN 800 MG TAB PO SCH ×2 (09:19→21:29)
[2021-09-17] MEDS: CASPOFUNGIN 50 MG in SODIUM CHLORIDE 0.9% 250 ML IV SCH (09:19)
[2021-09-17] MEDS: BACLOFEN 10 MG TAB PO SCH ×4 (09:20→21:29)
[2021-09-17] MEDS: PANTOprazole 40 MG TAB PO SCH (09:20)
[2021-09-17] MEDS: FAMOTIDINE 20 MG TAB PO SCH ×2 (09:20→21:29)
[2021-09-17] MEDS: ADVANCED PROBIOTIC 1250 MG CAPSULE PO SCH (09:20)
[2021-09-17] MEDS: tiZANidine HCL 4 MG TABLET PO SCH ×2 (09:20→21:30)
[2021-09-17] MEDS: MULTIVITAMIN TAB PO SCH (09:20)
[2021-09-17] MEDS: DAKIN'S SOLN 0.125% QUARTER STRENGTH 473 ML BTL EXT SCH (10:11)
--- NOTE | 2021-09-17 10:30 | Surgery Progress Note ---
Date of Service September 17, 2021 Assessment & Plan (1) Osteomyelitis: Plan: Patient doing well status post debridement We will continue his IV antibiotics and antifungals per ID At this point would place a wound VAC versus an irrigating wound VAC on the wound to see if we can get the wound to granulate Wound care nurses will follow the patient Okay to resume Coumadin No plans for any further debridement while inpatient (2) Sacral decubitus ulcer, stage IV: Admission and Anticipated Discharge Date Admission Date: September 06, 2021 Subjective Patient seen and examined. No acute events overnight. No problems with wound. Afebrile. Physical Exam Constitutional: WD/WN, vitals as above Skin: Sacral dressing clean dry and intact Results & Data ([facility]) Vital Signs (Past 12 Hours) Vital Signs Temp Pulse Pulse Resp BP Pulse Ox 09/17/21 07:12 91 H 09/17/21 07:00 36.6 C 88 20 101/59 L 100 09/17/21 03:18 36.6 C 95 H 16 98/64 L 94 09/16/21 23:53 117 H 09/16/21 23:00 36.9 C 116 H 20 114/57 L 91 PG Care Time/CCT Total # of Minutes Spent Total Time Spent with Patient: Total time spent is greater than 50% in coordination of care (as documented) at patient's floor/unit and/or counseling patient: Coding Level of Care Code None Diagnoses Osteomyelitis M86.9 Sacral decubitus ulcer, stage IV L89.154
--- NOTE | 2021-09-17 16:52 | Hospitalist Progress Note ---
Date of Service September 17, 2021 Assessment & Plan (1) Severe sepsis: Plan: Infected sacral wound causing severe sepsis on admission-resuscitated. Source control performed ~ 09/06/21-->Incision and Drainage and Debridement Sacral Tissue Down to Bone, 15cm x 11cm - Agusto Chaudhry DO Operative cultures sent: 09/06 buttock culture: E. Faecium VRE, Taina albicans/dubliniensis, Pseudomonas: multidrug resistant, E.faecium sensitive to Dapto 09/06 sacrum wound culture: E Faecium VRE, Taina albicans/dubliniensis ~ 09/08/21 ---> Revision I&D of the sacral decubitus ulcer by Agusto Weeks DO ~09/16/21 --> s/p Excisional Debridement of Sacral Ulcer down to Muscle Level 15cm x 11cm(Not Applicable) - Agusto Chaudhry DO He remains on IV antibiotics and antifungals per ID. Per surgery will place a wound VAC versus irrigating wound VAC on the wound to see if we can get it to granulate. Okay to resume Coumadin with no further plans for debridement while inpatient. (2) Sacral decubitus ulcer, stage IV: Plan: plan as above. (3) Osteomyelitis: Plan: Per ID, Daptomycin, ceftazidime/Avibactam, caspofungin times total of 6 weeks Daptomycin started September 06, 2021 Ceftazidime/avibactam started September 11, 2021 Caspofungin started September 11, 2021 f/u with ID and outpatient wound care. PICC in place. During therapy, CK, CMP and CBC with differential weekly. Obtain CRP weekly until 2 months after stopping therapy. (4) Quadriplegia: Plan: Chronic, bedbound. Turn every 2, utilize therapy bed. (5) DM type 2 (diabetes mellitus, type 2): Plan: Patient states that glargine does not work for him, glucose levels are slightly elevated around 200-2 40. We will switch glargine to his home NPH at 50 units twice daily. We will continue NovoLog sliding scale as needed. (6) Nocturnal hypoxia: Plan: Patient utilizes oxygen while sleeping (7) Neurogenic bladder: Plan: Chronic indwelling Martinez present. (8) Morbid obesity: (9) Current use of detention anticoagulation: Plan: Patient on Coumadin, INR therapeutic at admission, IVC filter placed 11 years ago per patient. Warfarin restarted as ok with surgery. Trend INR (10) Anemia: Plan: Acute on chronic anemia, Likely from acute blood loss secondary to recent procedure and chronic comorbidities. He received 1 unit pRBC on 09/06 and another unit of PRBCs on 09/10. He also received 4 units of fresh frozen plasma on 09/06. H&H stable, no indication for transfusion at this time. Iron levels reveal iron deficiency, continue iron supplementation and outpatient followup. (11) DVT prophylaxis: Plan: Heparin/warfarin-continue with heparin for DVT prophylaxis while warfarin is building up in system, until INR greater than 2. Full code Disposition-pending surgery recommendations and placement accommodations. Rylee Hay DO [facility] Hospitalist Admission and Anticipated Discharge Date Admission Date: September 06, 2021 Subjective 60-year-old man with morbid obesity who is bedbound admitted for osteomyelitis of sacral decubitus ulcer that is chronic. Status post repeat wound debridement by Dr. Chaudhry on 09/15/2021. Patient's is at bedside Patient states he is doing well overall tolerating p.o. and denies fevers or chills. We reviewed the CBC and remarked that his white blood cell count has not been normal for years Patient denies any chest pain, dyspnea Patient was counseled on HIV and hepatitis testing which was performed on his blood after recent employee blood exposure on September 09. Consent was signed. Review of Systems Review of Systems: All systems were reviewed and negative except as indicated above. Physical Exam Physical Exam: CONSTITUTIONAL: morbid obesity, vitals as above, generally well-appearing, NAD EYES: normal conjunctivae, no scleral icterus ENT: external ear and nose normal, MMM NECK: trachea midline RESPIRATORY: clear to auscultation bilaterally, no crackles, rales or wheezes, normal respiratory effort CARDIOVASCULAR: regular rate and rhythm, S1 and 2 heard without murmurs, gallops or rubs, no JVD, no peripheral edema CHEST: inspection of chest was normal GASTROINTESTINAL: soft, nontender, ND, suprapubic catheter in place, no erythema surrounding insertion site, no drainage, no guarding. He has a colostomy in place with normal stool and gas in bag. MUSCULOSKELETAL: paraplegic, generalized weakness, head is normocephalic and atraumatic, waffle boots to lower extremities SKIN: warm and dry, was unable to evaluate sacral wound 2/2 morbid obesity and paraplegia. NEUROLOGIC: CN 2-12 grossly intact, no sensory deficit, normal cognition, normal speech, no tremor PSYCHIATRIC: alert cooperative and oriented to person, place and time. Euthymic mood, makes good eye contact, language grossly intact, recent and remote memory grossly intact. Results & Data Results & Data ([facility]) Vital Signs (Past 12 Hours) Vital Signs Temp Pulse Pulse Resp BP Pulse Ox 09/17/21 16:24 88 09/17/21 14:49 36.6 C 88 20 112/68 90 09/17/21 07:12 91 H 09/17/21 07:00 36.6 C 88 20 101/59 L 100 Laboratory Results Short CBC 09/17/21 Range/Units 05:30 WBC 10.59 (4.8-10.8) K/uL Hgb 8.3 L (14.0-18.0) g/dL Hct 27.9 L (42-52) % Plt Count 262 (130-400) K/uL BMP 09/17/21 05:30 Sodium 136 Potassium 4.5 Chloride 100 Carbon Dioxide 32 BUN 22 Creatinine 0.89 Glucose 194 H Calcium 8.7 Cardiac Enzymes 09/17/21 Range/Units 05:30 Total Creatine Kinase 18 L (39-308) U/L Medications Administered Current Inpatient Medications Acetaminophen (Acetaminophen 325 Mg Tab) 650 mg PO Q4H PRN PRN Reason: Pain or Fever Stop: 10/06/21 04:13 Last Admin: 09/10/21 22:48 Dose: 650 mg Documented by: Allopurinol (Allopurinol 100 Mg Tab) 100 mg PO BID [facility] Stop: 10/06/21 08:59 Last Admin: 09/17/21 09:19 Dose: 100 mg Documented by: Baclofen (Baclofen 10 Mg Tab) 10 mg PO QID [facility] Stop: 10/06/21 08:59 Last Admin: 09/17/21 12:58 Dose: 10 mg Documented by: Ceftazidime/Avibactam (Ceftazidime-Avibactam Consult Active) 1 ea N/A UD PRN PRN Reason: Consult Stop: 10/23/21 09:13 Cyclobenzaprine HCl (Cyclobenzaprine Hcl 5 Mg Tab) 15 mg PO HS [facility] Stop: 10/06/21 20:59 Last Admin: 09/16/21 21:39 Dose: 15 mg Documented by: Dextrose (Dextrose 50% 50 Ml Syringe) 25 - 50 ml IV UD PRN; Protocol PRN Reason: Hypoglycemia Protocol Stop: 10/06/21 04:13 Escitalopram Oxalate (Escitalopram Oxalate 20 Mg Tab) 20 mg PO QAM JO Stop: 10/06/21 08:59 Last Admin: 09/10/21 08:03 Dose: 20 mg Documented by: Famotidine (Famotidine 20 Mg Tab) 20 mg PO BID JO Stop: 10/06/21 08:59 Last Admin: 09/17/21 09:20 Dose: 20 mg Documented by: Ferrous Gluconate (Ferrous Gluconate 324 Mg Tab) 324 mg PO QAM JO Stop: 10/06/21 08:59 Last Admin: 09/17/21 09:19 Dose: 324 mg Documented by: Gabapentin (Gabapentin 800 Mg Tab) 800 mg PO BID JO Stop: 10/06/21 08:59 Last Admin: 09/17/21 09:19 Dose: 800 mg Documented by: Glucagon (Glucagon For Inj 1 Mg Vial) 1 mg SQ UD PRN; Protocol PRN Reason: Hypoglycemia Protocol Stop: 10/06/21 04:13 Glucose (Glucose 10 Tabs/Tube) 4 - 8 tabs PO UD PRN; Protocol PRN Reason: Hypoglycemia Protocol Stop: 10/06/21 04:13 Glucose (Glucose 40% Gel 15 Gm Tube) 15 - 30 gm PO UD PRN; Protocol PRN Reason: Hypoglycemia Protocol Stop: 10/06/21 04:13 Heparin Sodium (Beef Lung) (Heparin 10 Unit/Ml 5 Ml Flush) 5 ml FLUSH PRN PRN PRN Reason: Flush Stop: 10/09/21 18:36 Last Admin: 09/13/21 13:48 Dose: 5 ml Documented by: Heparin Sodium (Porcine) (Heparin Sod 5,000 Unit/0.5 Ml Vial) 5,000 units SQ Q8 JO Stop: 10/11/21 21:59 Last Admin: 09/17/21 12:58 Dose: 5,000 units Documented by: Hyoscyamine (Hyoscyamine Sulfate 0.125 Mg Tab) 0.125 mg PO QPM JO Stop: 10/06/21 20:59 Last Admin: 09/16/21 21:38 Dose: 0.125 mg Documented by: Promethazine HCl 12.5 mg/ (Sodium Chloride) 50.5 mls @ 202 mls/hr IV Q6H PRN PRN Reason: Nausea And Vomiting Stop: 10/06/21 04:13 Sodium Chloride (Nss) 250 mls @ 15 mls/hr IV .[id number] PRN PRN Reason: For Transfusion Stop: 10/06/21 04:13 Daptomycin 875 mg/ Syringe 17.5 mls @ 8.75 mls/min IV Q24H [facility]; Protocol Stop: 10/22/21 05:59 Last Admin: 09/17/21 05:39 Dose: 8.75 mls/min Documented by: Ceftazidime/Avibactam 2.5 gm/ (Sodium Chloride) 62 mls @ 31 mls/hr IV Q8H [facility]; Protocol Stop: 10/23/21 09:14 Last Admin: 09/17/21 14:51 Dose: 31 mls/hr Documented by: Caspofungin 50 mg/ Sodium (Chloride) 260 mls @ 260 mls/hr IV DAILY [facility] Stop: 10/24/21 08:59 Last Infusion: 09/17/21 10:22 Dose: Infused Documented by: Insulin Aspart (Insulin Aspart Per Unit) 0 units SC ACHS [facility] Stop: 10/06/21 04:59 Last Admin: 09/17/21 13:00 Dose: 8 units Documented by: Insulin Glargine (Insulin Glargine Solostar 100 Units/Ml 3 Ml Pen) 40 units SC BID [facility] Stop: 10/07/21 08:59 Last Admin: 09/17/21 09:10 Dose: 40 units Documented by: Irbesartan (Irbesartan 75 Mg Tab) 75 mg PO DAILY [facility] Stop: 10/06/21 08:59 Last Admin: 09/06/21 08:33 Dose: 75 mg Documented by: Lactobacillus Acidoph/Casei/Rhamnos (Advanced Probiotic 1250 Mg Capsule) 2 cap PO DAILY [facility] Stop: 10/06/21 08:59 Last Admin: 09/17/21 09:20 Dose: 2 cap Documented by: Magnesium Oxide (Magnesium Oxide 400 Mg Tab) 400 mg PO BID [facility] Stop: 10/06/21 08:59 Last Admin: 09/17/21 09:19 Dose: 400 mg Documented by: Miscellaneous (Carbohydrates For Hypoglycemia ) 15 - 30 gm PO UD PRN PRN Reason: Hypoglycemia Protocol Stop: 10/06/21 04:13 Miscellaneous (Bethanechol~Order Awaiting Action) 1 ea N/A QS [facility] Stop: 10/06/21 07:59 Last Admin: 09/17/21 09:07 Dose: Not Given Documented by: Miscellaneous Information (Daptomycin Consult Active) 1 ea N/A UD PRN PRN Reason: Consult Stop: 10/22/21 05:59 Miscellaneous Medication (Medical Marijuana) 1 dose INH UD PRN PRN Reason: Pain Stop: 10/06/21 04:44 Multivitamins ([facility]itamin Tab) [facility] [place] Stop: 10/06/21 08:59 Last Admin: 09/17/21 09:20 Dose: 1 tab Documented by: Pantoprazole Sodium (Pantoprazole 40 Mg Tab) 40 mg PO QAM [facility] Stop: 10/06/21 08:59 Last Admin: 09/17/21 09:20 Dose: 40 mg Documented by: Sodium Hypochlorite (Dakin's Soln 0.125% Quarter Strength 1000 Ml Btl) 1 appln EXT DAILY [facility] Stop: 10/09/21 08:59 Last Admin: 09/17/21 10:11 Dose: Not Given Documented by: Tizanidine HCl (Tizanidine Hcl 4 Mg Tablet) 4 mg PO BID [facility] Stop: 10/06/21 08:59 Last Admin: 09/17/21 09:20 Dose: 4 mg Documented by: Warfarin Sodium (Warfarin Sod 7.5 Mg Tab) 7.5 mg PO DAILY@1600 [facility] Stop: 10/11/21 15:59 Last Admin: 09/11/21 17:55 Dose: 7.5 mg Documented by:
[2021-09-17] MEDS: INSULIN HUMAN 70% NPH/30% REGULAR SQ SCH (21:27)
[2021-09-17] MEDS: WARFARIN SOD 7.5 MG TAB PO SCH (21:28)
[2021-09-17] MEDS: CYCLOBENZAPRINE HCL 5 MG TAB PO SCH (21:29)
[2021-09-17] MEDS: HYOSCYAMINE SULFATE 0.125 MG TAB PO SCH (21:30)
[2021-09-17] MEDS: MELATONIN 3 MG TAB PO SCH (21:30)
[2021-09-18] MEDS: DAPTOMYCIN IV SCH (06:07)
[2021-09-18] MEDS: HEPARIN SOD 5,000 UNIT/0.5 ML VIAL SQ SCH ×3 (06:08→22:10)
[2021-09-18 06:59] LABS: Creatinine Clr Calc Pharmacy 138.8 ml/min; Est GFR (African American) 108.5 ml/min; Est GFR (Non-African American) 93.6 ml/min
[2021-09-18] MEDS: PANTOprazole 40 MG TAB PO SCH (10:30)
[2021-09-18] MEDS: FAMOTIDINE 20 MG TAB PO SCH ×2 (10:30→20:14)
[2021-09-18] MEDS: MULTIVITAMIN TAB PO SCH (10:30)
[2021-09-18] MEDS: tiZANidine HCL 4 MG TABLET PO SCH ×2 (10:30→20:13)
[2021-09-18] MEDS: FERROUS GLUCONATE 324 MG TAB PO SCH (10:30)
[2021-09-18] MEDS: ADVANCED PROBIOTIC 1250 MG CAPSULE PO SCH (10:30)
[2021-09-18] MEDS: INSULIN HUMAN 70% NPH/30% REGULAR SQ SCH ×2 (10:30→18:04)
[2021-09-18] MEDS: GABAPENTIN 800 MG TAB PO SCH ×2 (10:30→20:16)
[2021-09-18] MEDS: BACLOFEN 10 MG TAB PO SCH ×4 (10:31→20:15)
[2021-09-18] MEDS: allopurinoL 100 MG TAB PO SCH ×2 (10:31→20:15)
[2021-09-18] MEDS: MAGNESIUM OXIDE 400 MG TAB PO SCH ×2 (10:31→20:14)
[2021-09-18] MEDS: INSULIN ASPART PER UNIT SC SCH ×4 (10:39→21:30)
[2021-09-18] MEDS: CASPOFUNGIN 50 MG in SODIUM CHLORIDE 0.9% 250 ML IV SCH (10:41)
[2021-09-18] MEDS: DAKIN'S SOLN 0.125% QUARTER STRENGTH 473 ML BTL EXT SCH (14:16)
[2021-09-18] MEDS ORDERED: WARFARIN SOD 5 MG TAB PO SCH ×2 (16:00)
--- NOTE | 2021-09-18 18:08 | Hospitalist Progress Note ---
Date of Service September 18, 2021 Assessment & Plan (1) Severe sepsis: Plan: Infected sacral wound causing severe sepsis on admission-resuscitated. Source control performed ~ 09/06/21-->Incision and Drainage and Debridement Sacral Tissue Down to Bone, 15cm x 11cm - Agusto Chaudhry DO Operative cultures sent: 09/06 buttock culture: E. Faecium VRE, Jocelyn albicans/dubliniensis, Pseudomonas: multidrug resistant, E.faecium sensitive to Dapto 09/06 sacrum wound culture: E Faecium VRE, Jocelyn albicans/dubliniensis ~ 09/08/21 ---> Revision I&D of the sacral decubitus ulcer by Agusto Weeks DO ~09/16/21 --> s/p Excisional Debridement of Sacral Ulcer down to Muscle Level 15cm x 11cm(Not Applicable) - Agusto Chaudhry DO He remains on IV antibiotics and antifungals per ID. Per surgery will place a wound VAC to see if we can get it to granulate. Okay to resume Coumadin with no further plans for debridement while inpatient. Wound vac unable to be placed today because of some oozing/bleeding. Wound care nurse with plans to place tomorrow. (2) Sacral decubitus ulcer, stage IV: Plan: plan as above. (3) Osteomyelitis: Plan: Per ID, Daptomycin, ceftazidime/Avibactam, caspofungin times total of 6 weeks Daptomycin started September 06, 2021 Ceftazidime/avibactam started September 11, 2021 Caspofungin started September 11, 2021 f/u with ID and outpatient wound care. PICC in place. During therapy, CK, CMP and CBC with differential weekly. Obtain CRP weekly until 2 months after stopping therapy. (4) Quadriplegia: Plan: Chronic, bedbound. Turn every 2, utilize therapy (Envella) bed. (5) DM type 2 (diabetes mellitus, type 2): Plan: Patient states that glargine does not work for him, glucose levels are slightly elevated around 200-240. Switched glargine to his home NPH at 50 units twice daily. We will continue NovoLog sliding scale as needed. (6) Nocturnal hypoxia: Plan: Patient utilizes oxygen while sleeping (7) Neurogenic bladder: Plan: Chronic indwelling Martinez present. (8) Morbid obesity: (9) Current use of group home anticoagulation: Plan: Patient on Coumadin, INR therapeutic at admission, IVC filter placed 11 years ago per patient. Warfarin restarted as ok with surgery. Trend INR (10) Anemia: Plan: Acute on chronic anemia, Likely from acute blood loss secondary to recent procedure and chronic comorbidities. He received 1 unit pRBC on 09/06 and another unit of PRBCs on 09/10. He also received 4 units of fresh frozen plasma on 09/06. H&H stable, no indication for transfusion at this time. Iron levels reveal iron deficiency, continue iron supplementation and outpatient followup. (11) DVT prophylaxis: Plan: Heparin/warfarin-continue with heparin for DVT prophylaxis while warfarin is building up in system, until INR greater than 2. Full code Disposition-pending surgery recommendations and placement accommodations. Rylee Hay DO [facility] Hospitalist Admission and Anticipated Discharge Date Admission Date: September 06, 2021 Subjective 60-year-old man with morbid obesity who is bedbound admitted for osteomyelitis of sacral decubitus ulcer that is chronic. Status post repeat wound debridement by Dr. Chaudhry on 09/15/2021. Patient states he is doing well overall tolerating p.o. and denies fevers or chills. Wound evaluated in conjunction with wound care today. No excessive bleeding or drainage, however, too much oozing for wound vac placement today--will attempt tomorrow. Coumadin restarted yesterday. Patient denies any chest pain, dyspnea Review of Systems Review of Systems: All systems were reviewed and negative except as indicated above. Physical Exam Physical Exam: CONSTITUTIONAL: morbid obesity, vitals as above, generally well-appearing, NAD EYES: normal conjunctivae, no scleral icterus ENT: external ear and nose normal, MMM NECK: trachea midline RESPIRATORY: clear to auscultation bilaterally, no crackles, rales or wheezes, normal respiratory effort CARDIOVASCULAR: regular rate and rhythm, S1 and 2 heard without murmurs, gallops or rubs, no JVD, no peripheral edema CHEST: inspection of chest was normal GASTROINTESTINAL: soft, nontender, ND, suprapubic catheter in place, no erythema surrounding insertion site, no drainage, no guarding. He has a colostomy in place with normal stool and gas in bag. MUSCULOSKELETAL: paraplegic, generalized weakness, head is normocephalic and atraumatic, waffle boots to lower extremities SKIN: warm and dry, large gaping wound today that was dry-very deep, multiple exposed layers. NEUROLOGIC: CN 2-12 grossly intact, no sensory deficit, normal cognition, normal speech, no tremor PSYCHIATRIC: alert cooperative and oriented to person, place and time. Euthymic mood, makes good eye contact, language grossly intact, recent and remote memory grossly intact. Results & Data Results & Data ([facility]) Vital Signs (Past 12 Hours) Vital Signs Temp Pulse Pulse Resp BP Pulse Ox 09/18/21 16:00 77 09/18/21 15:35 36.9 C 81 16 108/63 97 09/18/21 11:53 36.5 C 85 16 117/67 91 09/18/21 08:00 76 09/18/21 07:56 36.5 C 79 16 100/63 99 Laboratory Results BMP 09/18/21 05:57 Creatinine 0.86 Medications Administered Current Inpatient Medications Acetaminophen (Acetaminophen 325 Mg Tab) 650 mg PO Q4H PRN PRN Reason: Pain or Fever Stop: 10/06/21 04:13 Last Admin: 09/10/21 22:48 Dose: 650 mg Documented by: Allopurinol (Allopurinol 100 Mg Tab) 100 mg PO BID [facility] Stop: 10/06/21 08:59 Last Admin: 09/18/21 10:31 Dose: 100 mg Documented by: Baclofen (Baclofen 10 Mg Tab) 10 mg PO QID [facility] Stop: 10/06/21 08:59 Last Admin: 09/18/21 14:16 Dose: 10 mg Documented by: Ceftazidime/Avibactam (Ceftazidime-Avibactam Consult Active) 1 ea N/A UD PRN PRN Reason: Consult Stop: 10/23/21 09:13 Cyclobenzaprine HCl (Cyclobenzaprine Hcl 5 Mg Tab) 15 mg PO HS [facility] Stop: 10/06/21 20:59 Last Admin: 09/17/21 21:29 Dose: 15 mg Documented by: Dextrose (Dextrose 50% 50 Ml Syringe) 25 - 50 ml IV UD PRN; Protocol PRN Reason: Hypoglycemia Protocol Stop: 10/06/21 04:13 Escitalopram Oxalate (Escitalopram Oxalate 20 Mg Tab) 20 mg PO QAM JO Stop: 10/06/21 08:59 Last Admin: 09/10/21 08:03 Dose: 20 mg Documented by: Famotidine (Famotidine 20 Mg Tab) 20 mg PO BID [facility] Stop: 10/06/21 08:59 Last Admin: 09/18/21 10:30 Dose: 20 mg Documented by: Ferrous Gluconate (Ferrous Gluconate 324 Mg Tab) 324 mg PO QAM JO Stop: 10/06/21 08:59 Last Admin: 09/18/21 10:30 Dose: 324 mg Documented by: Gabapentin (Gabapentin 800 Mg Tab) 800 mg PO BID JO Stop: 10/06/21 08:59 Last Admin: 09/18/21 10:30 Dose: 800 mg Documented by: Glucagon (Glucagon For Inj 1 Mg Vial) 1 mg SQ UD PRN; Protocol PRN Reason: Hypoglycemia Protocol Stop: 10/06/21 04:13 Glucose (Glucose 10 Tabs/Tube) 4 - 8 tabs PO UD PRN; Protocol PRN Reason: Hypoglycemia Protocol Stop: 10/06/21 04:13 Glucose (Glucose 40% Gel 15 Gm Tube) 15 - 30 gm PO UD PRN; Protocol PRN Reason: Hypoglycemia Protocol Stop: 10/06/21 04:13 Heparin Sodium (Beef Lung) (Heparin 10 Unit/Ml 5 Ml Flush) 5 ml FLUSH PRN PRN PRN Reason: Flush Stop: 10/09/21 18:36 Last Admin: 09/13/21 13:48 Dose: 5 ml Documented by: Heparin Sodium (Porcine) (Heparin Sod 5,000 Unit/0.5 Ml Vial) 5,000 units SQ Q8 JO Stop: 10/11/21 21:59 Last Admin: 09/18/21 14:18 Dose: 5,000 units Documented by: Hyoscyamine (Hyoscyamine Sulfate 0.125 Mg Tab) 0.125 mg PO QPM JO Stop: 10/06/21 20:59 Last Admin: 09/17/21 21:30 Dose: 0.125 mg Documented by: Sodium Chloride (Nss) 250 mls @ 15 mls/hr IV .[id number] PRN PRN Reason: For Transfusion Stop: 10/06/21 04:13 Daptomycin 875 mg/ Syringe 17.5 mls @ 8.75 mls/min IV Q24H JO; Protocol Stop: 10/22/21 05:59 Last Admin: 09/18/21 06:07 Dose: 8.75 mls/min Documented by: Ceftazidime/Avibactam 2.5 gm/ (Sodium Chloride) 62 mls @ 31 mls/hr IV Q8H [facility]; Protocol Stop: 10/23/21 09:14 Last Admin: 09/18/21 15:08 Dose: 31 mls/hr Documented by: Caspofungin 50 mg/ Sodium (Chloride) 260 mls @ 260 mls/hr IV DAILY [facility] Stop: 10/24/21 08:59 Last Infusion: 09/18/21 13:16 Dose: Infused Documented by: Insulin Aspart (Insulin Aspart Per Unit) 0 units SC ACHS [facility] Stop: 10/06/21 04:59 Last Admin: 09/18/21 14:27 Dose: 7 units Documented by: Insulin Human Isoph/Insulin Regular (Insulin Human 70% Nph/30% Regular) 50 units SQ BIDM [facility] Stop: 10/17/21 19:59 Last Admin: 09/18/21 10:30 Dose: 50 units Documented by: Irbesartan (Irbesartan 75 Mg Tab) 75 mg PO DAILY [facility] Stop: 10/06/21 08:59 Last Admin: 09/06/21 08:33 Dose: 75 mg Documented by: Lactobacillus Acidoph/Casei/Rhamnos (Advanced Probiotic 1250 Mg Capsule) 2 cap PO DAILY JO Stop: 10/06/21 08:59 Last Admin: 09/18/21 10:30 Dose: 2 cap Documented by: Magnesium Oxide (Magnesium Oxide 400 Mg Tab) 400 mg PO BID [facility] Stop: 10/06/21 08:59 Last Admin: 09/18/21 10:31 Dose: 400 mg Documented by: Melatonin (Melatonin 3 Mg Tab) 3 mg PO HS [facility] Stop: 10/17/21 20:59 Last Admin: 09/17/21 21:30 Dose: 3 mg Documented by: Miscellaneous (Carbohydrates For Hypoglycemia ) 15 - 30 gm PO UD PRN PRN Reason: Hypoglycemia Protocol Stop: 10/06/21 04:13 Miscellaneous (Bethanechol~Order Awaiting Action) 1 ea N/A QS [facility] Stop: 10/06/21 07:59 Last Admin: 09/18/21 15:09 Dose: Not Given Documented by: Miscellaneous Information (Daptomycin Consult Active) 1 ea N/A UD PRN PRN Reason: Consult Stop: 10/22/21 05:59 Miscellaneous Medication (Medical Marijuana) 1 dose INH UD PRN PRN Reason: Pain Stop: 10/06/21 04:44 Multivitamins (Multivitamin Tab) [facility] Stop: 10/06/21 08:59 Last Admin: 09/18/21 10:30 Dose: 1 tab Documented by: Pantoprazole Sodium (Pantoprazole 40 Mg Tab) 40 mg PO [facility] Stop: 10/06/21 08:59 Last Admin: 09/18/21 10:30 Dose: 40 mg Documented by: Sodium Hypochlorite (Dakin's Soln 0.125% Quarter Strength 1000 Ml Btl) 1 appln EXT DAILY [facility] Stop: 10/09/21 08:59 Last Admin: 09/18/21 14:16 Dose: Not Given Documented by: Tizanidine HCl (Tizanidine Hcl 4 Mg Tablet) 4 mg PO BID [facility] Stop: 10/06/21 08:59 Last Admin: 09/18/21 10:30 Dose: 4 mg Documented by: Warfarin Sodium (Warfarin Sod 7.5 Mg Tab) 7.5 mg PO MoWeFrSa@1600 [facility] Stop: 10/17/21 19:59 Last Admin: 09/17/21 21:28 Dose: 7.5 mg Documented by: Warfarin Sodium (Warfarin Sod 5 Mg Tab) 5 mg PO SuTuTh@1600 [facility] Stop: 10/18/21 15:59
[2021-09-18] MEDS: HYOSCYAMINE SULFATE 0.125 MG TAB PO SCH (20:14)
[2021-09-18] MEDS: CYCLOBENZAPRINE HCL 5 MG TAB PO SCH (20:15)
[2021-09-18] MEDS: MELATONIN 3 MG TAB PO SCH (21:56)
[2021-09-19] MEDS: DAPTOMYCIN IV SCH (05:26)
[2021-09-19] MEDS: HEPARIN SOD 5,000 UNIT/0.5 ML VIAL SQ SCH ×3 (05:43→21:03)
[2021-09-19 07:38] LABS: Hematocrit (blood only) 28.3 % (42-52); Hemoglobin 8.4 g/dL (14.0-18.0); Mean Corpuscular Hemoglobin 27.3 pg (25-34); Mean Corpuscular Hgb Conc 29.7 g/dL (32-36); Mean Corpuscular Volume 91.9 fL (80-100); Mean Platelet Volume 8.7 fL (7.4-10.4); Platelet Count 226 K/uL (130-400); RDW Coefficient of Variation 18.6 % (11.5-14.5); RDW Standard Deviation 62.2 fL (36.4-46.3); Red Blood Count 3.08 M/uL (4.7-6.1); White Blood Count 8.97 K/uL (4.8-10.8)
[2021-09-19 07:45] LABS: INR 1.1 (0.9-1.1); Prothrombin Time 10.7 Seconds (9.0-12.0)
[2021-09-19] MEDS: ADVANCED PROBIOTIC 1250 MG CAPSULE PO SCH (07:49)
[2021-09-19] MEDS: FAMOTIDINE 20 MG TAB PO SCH ×2 (07:49→21:08)
[2021-09-19] MEDS: MULTIVITAMIN TAB PO SCH (07:49)
[2021-09-19] MEDS: PANTOprazole 40 MG TAB PO SCH (07:49)
[2021-09-19] MEDS: FERROUS GLUCONATE 324 MG TAB PO SCH (07:55)
[2021-09-19] MEDS: allopurinoL 100 MG TAB PO SCH ×2 (07:55→21:09)
[2021-09-19] MEDS: BACLOFEN 10 MG TAB PO SCH ×4 (07:55→21:09)
[2021-09-19] MEDS: MAGNESIUM OXIDE 400 MG TAB PO SCH ×2 (07:56→21:07)
[2021-09-19] MEDS: GABAPENTIN 800 MG TAB PO SCH ×2 (07:56→21:08)
[2021-09-19] MEDS: tiZANidine HCL 4 MG TABLET PO SCH ×2 (07:56→21:07)
[2021-09-19] MEDS: DAKIN'S SOLN 0.125% QUARTER STRENGTH 473 ML BTL EXT SCH (07:57)
[2021-09-19] MEDS: CASPOFUNGIN 50 MG in SODIUM CHLORIDE 0.9% 250 ML IV SCH (07:58)
[2021-09-19 08:06] LABS: BUN Creatinine Ratio 23.6 (10-20); Creatinine Clr Calc Pharmacy 134.1 ml/min; Est GFR (Non-African American) 92.3 ml/min; Potassium 4.1 mmol/L (3.5-5.1)
[2021-09-19] MEDS: INSULIN ASPART PER UNIT SC SCH ×4 (08:10→21:01)
[2021-09-19] MEDS: INSULIN HUMAN 70% NPH/30% REGULAR SQ SCH ×2 (08:11→17:02)
[2021-09-19] MEDS: WARFARIN SOD 7.5 MG TAB PO SCH (15:48)
--- NOTE | 2021-09-19 16:08 | Hospitalist Progress Note ---
Date of Service September 19, 2021 Assessment & Plan (1) Severe sepsis: Plan: Infected sacral wound causing severe sepsis on admission-resuscitated. Source control performed ~ 09/06/21-->Incision and Drainage and Debridement Sacral Tissue Down to Bone, 15cm x 11cm - Agusto Chaudhry DO Operative cultures sent: 09/06 buttock culture: E. Faecium VRE, Jocelyn albicans/dubliniensis, Pseudomonas: multidrug resistant, E.faecium sensitive to Dapto 09/06 sacrum wound culture: E Faecium VRE, Jocelyn albicans/dubliniensis ~ 09/08/21 ---> Revision I&D of the sacral decubitus ulcer by Agusto Weeks DO ~09/16/21 --> s/p Excisional Debridement of Sacral Ulcer down to Muscle Level 15cm x 11cm(Not Applicable) - Agusto Chaudhry DO He remains on IV antibiotics and antifungals per ID. Per surgery will place a wound VAC to see if we can get it to granulate-this was placed today. Cont hospitalization pending insurance authorization of wound vac and home health setup . (2) Sacral decubitus ulcer, stage IV: Plan: plan as above. (3) Osteomyelitis: Plan: Per ID, Daptomycin, ceftazidime/Avibactam, caspofungin times total of 6 weeks Daptomycin started September 06, 2021 Ceftazidime/avibactam started September 11, 2021 Caspofungin started September 11, 2021 f/u with ID and outpatient wound care. PICC in place. During therapy, CK, CMP and CBC with differential weekly. Obtain CRP weekly until 2 months after stopping therapy. (4) Quadriplegia: Plan: Chronic, bedbound. Turn every 2, utilize therapy (Envella) bed. (5) DM type 2 (diabetes mellitus, type 2): Plan: Patient states that glargine does not work for him, glucose levels are slightly elevated around 200-240. Switched glargine to his home NPH at 50 units twice daily. We will continue NovoLog sliding scale as needed. (6) Nocturnal hypoxia: Plan: Patient utilizes oxygen while sleeping (7) Neurogenic bladder: Plan: Chronic indwelling Martinez present (surapubic catheter) (8) Morbid obesity: (9) Current use of detention anticoagulation: Plan: Patient on Coumadin, INR therapeutic at admission, IVC filter placed 11 years ago per patient. Warfarin restarted as ok with surgery. Trend INR-still subtherapeutic. (10) Anemia: Plan: Acute on chronic anemia, Likely from acute blood loss secondary to recent procedure and chronic comorbidities. He received 1 unit pRBC on 09/06 and another unit of PRBCs on 09/10. He also received 4 units of fresh frozen plasma on 09/06. H&H stable, no indication for transfusion at this time. Iron levels reveal iron deficiency, continue iron supplementation and outpatient followup. (11) DVT prophylaxis: Plan: Heparin/warfarin-continue with heparin for DVT prophylaxis while warfarin is building up in system, until INR greater than 2. Full code Disposition-pending wound vac authorization and home health set up for med infusions. Will likely be here through the weekend. Rylee [facility] and Anticipated Discharge Date Admission Date: September 06, 2021 Subjective 60-year-old man with morbid obesity who is bedbound admitted for osteomyelitis of sacral decubitus ulcer that is chronic. Status post repeat wound debridement by Dr. Chaudhry on 09/15/2021. Patient states he is doing well overall tolerating p.o. and denies fevers or chills. subtherapetuic INR, recently restarted coumadin record reviewed and no recent DVT noted--had CTA chest and LE us without evidence of PE/DVT within the last 6 months. wound vac placed patient reports chronic pain, states it is "tolerable" --declines further pain meds at this time. Review of Systems Review of Systems: All systems were reviewed and negative except as indicated above. Physical Exam Physical Exam: CONSTITUTIONAL: morbid obesity, vitals as above, generally well-appearing, NAD EYES: normal conjunctivae, no scleral icterus ENT: external ear and nose normal, MMM NECK: trachea midline RESPIRATORY: clear to auscultation bilaterally, no crackles, rales or wheezes, normal respiratory effort CARDIOVASCULAR: regular rate and rhythm, S1 and 2 heard without murmurs, gallops or rubs, no JVD, no peripheral edema CHEST: inspection of chest was normal GASTROINTESTINAL: soft, nontender, ND, suprapubic catheter in place, no erythema surrounding insertion site, no drainage, no guarding. He has a colostomy in place with normal stool and gas in bag. MUSCULOSKELETAL: paraplegic, generalized weakness, head is normocephalic and atraumatic, waffle boots to lower extremities SKIN: warm and dry, large gaping wound today that was dry-very deep, multiple exposed layers (wound not examined directly today). NEUROLOGIC: CN 2-12 grossly intact, no sensory deficit, normal cognition, normal speech, no tremor PSYCHIATRIC: alert cooperative and oriented to person, place and time. Euthymic mood, makes good eye contact, language grossly intact, recent and remote memory grossly intact. Results & Data Results & Data ([facility]) Vital Signs (Past 12 Hours) Vital Signs Temp Pulse Pulse Resp BP Pulse Ox 09/19/21 10:35 36.3 C L 65 12 105/66 100 09/19/21 08:00 78 09/19/21 07:15 36.4 C L 62 12 120/78 100 Laboratory Results Short CBC 09/19/21 Range/Units 07:07 WBC 8.97 (4.8-10.8) K/uL Hgb 8.4 L (14.0-18.0) g/dL Hct 28.3 L (42-52) % Plt Count 226 (130-400) K/uL BMP 09/19/21 07:07 Sodium 136 Potassium 4.1 Chloride 100 Carbon Dioxide 33 H BUN 21 Creatinine 0.89 Glucose 120 H Calcium 9.0 Medications Administered Current Inpatient Medications Acetaminophen (Acetaminophen 325 Mg Tab) 650 mg PO Q4H PRN PRN Reason: Pain or Fever Stop: 10/06/21 04:13 Last Admin: 09/10/21 22:48 Dose: 650 mg Documented by: Allopurinol (Allopurinol 100 Mg Tab) 100 mg PO BID [facility] Stop: 10/06/21 08:59 Last Admin: 09/19/21 07:55 Dose: 100 mg Documented by: Baclofen (Baclofen 10 Mg Tab) 10 mg PO QID [facility] Stop: 10/06/21 08:59 Last Admin: 09/19/21 12:39 Dose: 10 mg Documented by: Ceftazidime/Avibactam (Ceftazidime-Avibactam Consult Active) 1 ea N/A UD PRN PRN Reason: Consult Stop: 10/23/21 09:13 Cyclobenzaprine HCl (Cyclobenzaprine Hcl 5 Mg Tab) 15 mg PO HS JO Stop: 10/06/21 20:59 Last Admin: 09/18/21 20:15 Dose: 15 mg Documented by: Dextrose (Dextrose 50% 50 Ml Syringe) 25 - 50 ml IV UD PRN; Protocol PRN Reason: Hypoglycemia Protocol Stop: 10/06/21 04:13 Escitalopram Oxalate (Escitalopram Oxalate 20 Mg Tab) 20 mg PO QAM JO Stop: 10/06/21 08:59 Last Admin: 09/10/21 08:03 Dose: 20 mg Documented by: Famotidine (Famotidine 20 Mg Tab) 20 mg PO BID JO Stop: 10/06/21 08:59 Last Admin: 09/19/21 07:49 Dose: 20 mg Documented by: Ferrous Gluconate (Ferrous Gluconate 324 Mg Tab) 324 mg PO QAM JO Stop: 10/06/21 08:59 Last Admin: 09/19/21 07:55 Dose: 324 mg Documented by: Gabapentin (Gabapentin 800 Mg Tab) 800 mg PO BID JO Stop: 10/06/21 08:59 Last Admin: 09/19/21 07:56 Dose: 800 mg Documented by: Glucagon (Glucagon For Inj 1 Mg Vial) 1 mg SQ UD PRN; Protocol PRN Reason: Hypoglycemia Protocol Stop: 10/06/21 04:13 Glucose (Glucose 10 Tabs/Tube) 4 - 8 tabs PO UD PRN; Protocol PRN Reason: Hypoglycemia Protocol Stop: 10/06/21 04:13 Glucose (Glucose 40% Gel 15 Gm Tube) 15 - 30 gm PO UD PRN; Protocol PRN Reason: Hypoglycemia Protocol Stop: 10/06/21 04:13 Heparin Sodium (Beef Lung) (Heparin 10 Unit/Ml 5 Ml Flush) 5 ml FLUSH PRN PRN PRN Reason: Flush Stop: 10/09/21 18:36 Last Admin: 09/19/21 09:28 Dose: 5 ml Documented by: Heparin Sodium (Porcine) (Heparin Sod 5,000 Unit/0.5 Ml Vial) 5,000 units SQ Q8 JO Stop: 10/11/21 21:59 Last Admin: 09/19/21 14:38 Dose: 5,000 units Documented by: Hyoscyamine (Hyoscyamine Sulfate 0.125 Mg Tab) 0.125 mg PO QPM JO Stop: 10/06/21 20:59 Last Admin: 09/18/21 20:14 Dose: 0.125 mg Documented by: Sodium Chloride (Nss) 250 mls @ 15 mls/hr IV .[id number] PRN PRN Reason: For Transfusion Stop: 10/06/21 04:13 Daptomycin 875 mg/ Syringe 17.5 mls @ 8.75 mls/min IV Q24H [facility]; Protocol Stop: 10/22/21 05:59 Last Admin: 09/19/21 05:26 Dose: 8.75 mls/min Documented by: Ceftazidime/Avibactam 2.5 gm/ (Sodium Chloride) 62 mls @ 31 mls/hr IV Q8H [facility]; Protocol Stop: 10/23/21 09:14 Last Admin: 09/19/21 14:37 Dose: 31 mls/hr Documented by: Caspofungin 50 mg/ Sodium (Chloride) 260 mls @ 260 mls/hr IV DAILY [facility] Stop: 10/24/21 08:59 Last Infusion: 09/19/21 09:28 Dose: Infused Documented by: Insulin Aspart (Insulin Aspart Per Unit) 0 units SC ACHS [facility] Stop: 10/06/21 04:59 Last Admin: 09/19/21 12:39 Dose: 5 units Documented by: Insulin Human Isoph/Insulin Regular (Insulin Human 70% Nph/30% Regular) 50 units SQ BIDM [facility] Stop: 10/17/21 19:59 Last Admin: 09/19/21 08:11 Dose: 50 units Documented by: Irbesartan (Irbesartan 75 Mg Tab) 75 mg PO DAILY JO Stop: 10/06/21 08:59 Last Admin: 09/06/21 08:33 Dose: 75 mg Documented by: Lactobacillus Acidoph/Casei/Rhamnos (Advanced Probiotic 1250 Mg Capsule) 2 cap PO DAILY [facility] Stop: 10/06/21 08:59 Last Admin: 09/19/21 07:49 Dose: 2 cap Documented by: Magnesium Oxide (Magnesium Oxide 400 Mg Tab) 400 mg PO BID [facility] Stop: 10/06/21 08:59 Last Admin: 09/19/21 07:56 Dose: 400 mg Documented by: Miscellaneous (Carbohydrates For Hypoglycemia ) 15 - 30 gm PO UD PRN PRN Reason: Hypoglycemia Protocol Stop: 10/06/21 04:13 Miscellaneous (Bethanechol~Order Awaiting Action) 1 ea N/A QS [facility] Stop: 10/06/21 07:59 Last Admin: 09/19/21 15:44 Dose: Not Given Documented by: Miscellaneous Information (Daptomycin Consult Active) 1 ea N/A UD PRN PRN Reason: Consult Stop: 10/22/21 05:59 Miscellaneous Medication (Medical Marijuana) 1 dose INH UD PRN PRN Reason: Pain Stop: 10/06/21 04:44 Multivitamins ([facility]ivitamin Tab) [facility] Stop: 10/06/21 08:59 Last Admin: 09/19/21 07:49 Dose: 1 tab Documented by: Pantoprazole Sodium (Pantoprazole 40 Mg Tab) [facility] Stop: 10/06/21 08:59 Last Admin: 09/19/21 07:49 Dose: 40 mg Documented by: Sodium Hypochlorite (Dakin's Soln 0.125% Quarter Strength 1000 Ml Btl) 1 appln EXT DAILY [facility] Stop: 10/09/21 08:59 Last Admin: 09/19/21 07:57 Dose: Not Given Documented by: Tizanidine HCl (Tizanidine Hcl 4 Mg Tablet) 4 mg PO BID [facility] Stop: 10/06/21 08:59 Last Admin: 09/19/21 07:56 Dose: 4 mg Documented by: Warfarin Sodium (Warfarin Sod 7.5 Mg Tab) 7.5 mg PO MoWeFrSa@1600 [facility] Stop: 10/17/21 19:59 Last Admin: 09/19/21 15:48 Dose: 7.5 mg Documented by: Warfarin Sodium (Warfarin Sod 5 Mg Tab) 5 mg PO SuTuTh@1600 [facility] Stop: 10/18/21 15:59 Last Admin: 09/18/21 18:11 Dose: 5 mg Documented by: Zolpidem Tartrate (Zolpidem Tartrate 5 Mg Tab) 5 mg PO DAILY@1999 [facility] Stop: 10/19/21 19:59
[2021-09-19] MEDS: HYOSCYAMINE SULFATE 0.125 MG TAB PO SCH (21:07)
[2021-09-19] MEDS: CYCLOBENZAPRINE HCL 5 MG TAB PO SCH (21:08)
[2021-09-19] MEDS: DEXTROSE 5% IV SCH (22:44)
[2021-09-19] MEDS: CEFTAZIDIME AVIBACTAM IV SCH (22:44)
[2021-09-19] MEDS: ZOLPIDEM TARTRATE 5 MG TAB PO SCH (23:34)
[2021-09-20] MEDS: CEFTAZIDIME AVIBACTAM IV SCH ×3 (06:18→22:51)
[2021-09-20] MEDS: DEXTROSE 5% IV SCH ×3 (06:18→22:51)
[2021-09-20] MEDS: DAPTOMYCIN IV SCH (06:19)
[2021-09-20] MEDS: HEPARIN SOD 5,000 UNIT/0.5 ML VIAL SQ SCH ×3 (06:20→20:47)
[2021-09-20] MEDS: MULTIVITAMIN TAB PO SCH (09:11)
[2021-09-20] MEDS: FAMOTIDINE 20 MG TAB PO SCH ×2 (09:11→20:51)
[2021-09-20] MEDS: MAGNESIUM OXIDE 400 MG TAB PO SCH ×2 (09:11→20:50)
[2021-09-20] MEDS: GABAPENTIN 800 MG TAB PO SCH ×2 (09:11→20:49)
[2021-09-20] MEDS: BACLOFEN 10 MG TAB PO SCH ×4 (09:11→20:52)
[2021-09-20] MEDS: FERROUS GLUCONATE 324 MG TAB PO SCH (09:11)
[2021-09-20] MEDS: ADVANCED PROBIOTIC 1250 MG CAPSULE PO SCH (09:11)
[2021-09-20] MEDS: PANTOprazole 40 MG TAB PO SCH (09:11)
[2021-09-20] MEDS: allopurinoL 100 MG TAB PO SCH ×2 (09:11→20:50)
[2021-09-20] MEDS: tiZANidine HCL 4 MG TABLET PO SCH ×2 (09:11→20:49)
[2021-09-20] MEDS: CASPOFUNGIN 50 MG in SODIUM CHLORIDE 0.9% 250 ML IV SCH (09:11)
[2021-09-20] MEDS: INSULIN HUMAN 70% NPH/30% REGULAR SQ SCH ×2 (09:17→18:06)
[2021-09-20] MEDS: INSULIN ASPART PER UNIT SC SCH ×4 (09:20→20:45)
[2021-09-20] MEDS: DAKIN'S SOLN 0.125% QUARTER STRENGTH 473 ML BTL EXT SCH (09:24)
[2021-09-20 10:18] LABS: INR 1.1 (0.9-1.1); Prothrombin Time 11.3 Seconds (9.0-12.0)
[2021-09-20 10:30] LABS: Creatinine Clr Calc Pharmacy 135.6 ml/min; Est GFR (African American) 107.5 ml/min; Est GFR (Non-African American) 92.7 ml/min
--- NOTE | 2021-09-20 14:04 | Hospitalist Progress Note ---
Date of Service September 20, 2021 Assessment & Plan (1) Severe sepsis: Plan: Infected sacral wound causing severe sepsis on admission-resuscitated. Source control performed ~ 09/06/21-->Incision and Drainage and Debridement Sacral Tissue Down to Bone, 15cm x 11cm - Agusto Chaudhry DO Operative cultures sent: 09/06 buttock culture: E. Faecium VRE, Jocelyn albicans/dubliniensis, Pseudomonas: multidrug resistant, E.faecium sensitive to Dapto 09/06 sacrum wound culture: E Faecium VRE, Jocelyn albicans/dubliniensis ~ 09/08/21 ---> Revision I&D of the sacral decubitus ulcer by Agusto Weeks DO ~09/16/21 --> s/p Excisional Debridement of Sacral Ulcer down to Muscle Level 15cm x 11cm(Not Applicable) - Agusto Chaudhry DO He remains on IV antibiotics and antifungals per ID. Per surgery will place a wound VAC to see if we can get it to granulate-this was placed today. Cont hospitalization pending insurance authorization of wound vac and home health setup . (2) Sacral decubitus ulcer, stage IV: Plan: plan as above. (3) Osteomyelitis: Plan: Per ID, Daptomycin, ceftazidime/Avibactam, caspofungin times total of 6 weeks Daptomycin started September 06, 2021 Ceftazidime/avibactam started September 11, 2021 Caspofungin started September 11, 2021 f/u with ID and outpatient wound care. PICC in place. During therapy, CK, CMP and CBC with differential weekly. Obtain CRP weekly until 2 months after stopping therapy. (4) Quadriplegia: Plan: Chronic, bedbound. Turn every 2, utilize therapy (Envella) bed. (5) DM type 2 (diabetes mellitus, type 2): Plan: Patient states that glargine does not work for him, glucose levels are slightly elevated around 200-240. Switched glargine to his home NPH at 50 units twice daily. We will continue NovoLog sliding scale as needed. (6) Nocturnal hypoxia: Plan: Patient utilizes oxygen while sleeping (7) Neurogenic bladder: Plan: Chronic indwelling Martinez present (surapubic catheter) (8) Morbid obesity: (9) Current use of longterm anticoagulation: Plan: Patient on Coumadin, INR therapeutic at admission, IVC filter placed 11 years ago per patient. Warfarin restarted as ok with surgery. Trend INR-still subtherapeutic. (10) Anemia: Plan: Acute on chronic anemia, Likely from acute blood loss secondary to recent procedure and chronic comorbidities. He received 1 unit pRBC on 09/06 and another unit of PRBCs on 09/10. He also received 4 units of fresh frozen plasma on 09/06. H&H stable, no indication for transfusion at this time. Iron levels reveal iron deficiency, continue iron supplementation and outpatient followup. (11) DVT prophylaxis: Plan: Heparin/warfarin-continue with heparin for DVT prophylaxis while warfarin is building up in system, until INR greater than 2. Full code Disposition-pending wound vac authorization and home health set up for med infusions. Patient would likely benefit moreso from a facility to help care for the wound vac and move/shift him as well as the infusions. Discussed this with who is at bedside. He will be here through the holiday weekend. [facility] and Anticipated Discharge Date Admission Date: September 06, 2021 Subjective 60-year-old man with morbid obesity who is bedbound admitted for osteomyelitis of sacral decubitus ulcer that is chronic. Status post repeat wound debridement by Dr. Chaudhry on 09/15/2021. Patient states he is doing well overall tolerating p.o. and denies fevers or chills. subtherapeutic INR, recently restarted coumadin denies pain reports Ambien worked well for him overnight Review of Systems Review of Systems: All systems were reviewed and negative except as indicated above. Physical Exam Physical Exam: CONSTITUTIONAL: morbid obesity, vitals as above, generally well-appearing, NAD EYES: normal conjunctivae, no scleral icterus ENT: external ear and nose normal, MMM NECK: trachea midline RESPIRATORY: clear to auscultation bilaterally, no crackles, rales or wheezes, normal respiratory effort CARDIOVASCULAR: regular rate and rhythm, S1 and 2 heard without murmurs, gallops or rubs, no JVD, no peripheral edema CHEST: inspection of chest was normal GASTROINTESTINAL: soft, nontender, ND, suprapubic catheter in place, no erythema surrounding insertion site, no drainage, no guarding. He has a colostomy in place with normal stool and gas in bag. MUSCULOSKELETAL: paraplegic, generalized weakness, head is normocephalic and atraumatic, waffle boots to lower extremities SKIN: warm and dry, Stage IV sacral decubitus ulcer-wound vac in place NEUROLOGIC: CN 2-12 grossly intact, no sensory deficit, normal cognition, normal speech, no tremor PSYCHIATRIC: alert cooperative and oriented to person, place and time. Euthymic mood, makes good eye contact, language grossly intact, recent and remote memory grossly intact. Results & Data Results & Data ([facility]) Vital Signs (Past 12 Hours) Vital Signs Temp Pulse Pulse Resp BP Pulse Ox 09/20/21 11:00 36.3 C L 73 22 112/63 97 09/20/21 09:10 36.4 C L 82 18 120/75 98 09/20/21 08:00 66 09/20/21 03:02 36.5 C 69 16 104/66 100 Laboratory Results BMP 09/20/21 09:23 Creatinine 0.88 Medications Administered Current Inpatient Medications Acetaminophen (Acetaminophen 325 Mg Tab) 650 mg PO Q4H PRN PRN Reason: Pain or Fever Stop: 10/06/21 04:13 Last Admin: 09/10/21 22:48 Dose: 650 mg Documented by: Allopurinol (Allopurinol 100 Mg Tab) 100 mg PO BID [facility] Stop: 10/06/21 08:59 Last Admin: 09/20/21 09:11 Dose: 100 mg Documented by: Baclofen (Baclofen 10 Mg Tab) 10 mg PO QID [facility] Stop: 10/06/21 08:59 Last Admin: 09/20/21 13:42 Dose: 10 mg Documented by: Ceftazidime/Avibactam (Ceftazidime-Avibactam Consult Active) 1 ea N/A UD PRN PRN Reason: Consult Stop: 10/23/21 09:13 Cyclobenzaprine HCl (Cyclobenzaprine Hcl 5 Mg Tab) 15 mg PO HS [facility] Stop: 10/06/21 20:59 Last Admin: 09/19/21 21:08 Dose: 15 mg Documented by: Dextrose (Dextrose 50% 50 Ml Syringe) 25 - 50 ml IV UD PRN; Protocol PRN Reason: Hypoglycemia Protocol Stop: 10/06/21 04:13 Escitalopram Oxalate (Escitalopram Oxalate 20 Mg Tab) 20 mg PO QAM JO Stop: 10/06/21 08:59 Last Admin: 09/10/21 08:03 Dose: 20 mg Documented by: Famotidine (Famotidine 20 Mg Tab) 20 mg PO BID JO Stop: 10/06/21 08:59 Last Admin: 09/20/21 09:11 Dose: 20 mg Documented by: Ferrous Gluconate (Ferrous Gluconate 324 Mg Tab) 324 mg PO QAM JO Stop: 10/06/21 08:59 Last Admin: 09/20/21 09:11 Dose: 324 mg Documented by: Gabapentin (Gabapentin 800 Mg Tab) 800 mg PO BID JO Stop: 10/06/21 08:59 Last Admin: 09/20/21 09:11 Dose: 800 mg Documented by: Glucagon (Glucagon For Inj 1 Mg Vial) 1 mg SQ UD PRN; Protocol PRN Reason: Hypoglycemia Protocol Stop: 10/06/21 04:13 Glucose (Glucose 10 Tabs/Tube) 4 - 8 tabs PO UD PRN; Protocol PRN Reason: Hypoglycemia Protocol Stop: 10/06/21 04:13 Glucose (Glucose 40% Gel 15 Gm Tube) 15 - 30 gm PO UD PRN; Protocol PRN Reason: Hypoglycemia Protocol Stop: 10/06/21 04:13 Heparin Sodium (Beef Lung) (Heparin 10 Unit/Ml 5 Ml Flush) 5 ml FLUSH PRN PRN PRN Reason: Flush Stop: 10/09/21 18:36 Last Admin: 09/20/21 02:41 Dose: 5 ml Documented by: Heparin Sodium (Porcine) (Heparin Sod 5,000 Unit/0.5 Ml Vial) 5,000 units SQ Q8 JO Stop: 10/11/21 21:59 Last Admin: 09/20/21 13:42 Dose: 5,000 units Documented by: Hyoscyamine (Hyoscyamine Sulfate 0.125 Mg Tab) 0.125 mg PO QPM JO Stop: 10/06/21 20:59 Last Admin: 09/19/21 21:07 Dose: 0.125 mg Documented by: Sodium Chloride (Nss) 250 mls @ 15 mls/hr IV .[id number] PRN PRN Reason: For Transfusion Stop: 10/06/21 04:13 Daptomycin 875 mg/ Syringe 17.5 mls @ 8.75 mls/min IV Q24H JO; Protocol Stop: 10/22/21 05:59 Last Admin: 09/20/21 06:19 Dose: 8.75 mls/min Documented by: Caspofungin 50 mg/ Sodium (Chloride) 260 mls @ 260 mls/hr IV DAILY [facility] Stop: 10/24/21 08:59 Last Infusion: 09/20/21 11:19 Dose: Infused Documented by: Ceftazidime/Avibactam 2.5 gm/ (Dextrose) 62 mls @ 31 mls/hr IV Q8H [facility]; Protocol Stop: 10/23/21 21:59 Last Admin: 09/20/21 13:43 Dose: 31 mls/hr Documented by: Insulin Aspart (Insulin Aspart Per Unit) 0 units SC ACHS [facility] Stop: 10/06/21 04:59 Last Admin: 09/20/21 09:20 Dose: 5 units Documented by: Insulin Human Isoph/Insulin Regular (Insulin Human 70% Nph/30% Regular) 50 units SQ BIDM [facility] Stop: 10/17/21 19:59 Last Admin: 09/20/21 09:17 Dose: 50 units Documented by: Irbesartan (Irbesartan 75 Mg Tab) 75 mg PO DAILY [facility] Stop: 10/06/21 08:59 Last Admin: 09/06/21 08:33 Dose: 75 mg Documented by: Lactobacillus Acidoph/Casei/Rhamnos (Advanced Probiotic 1250 Mg Capsule) 2 cap PO DAILY [facility] Stop: 10/06/21 08:59 Last Admin: 09/20/21 09:11 Dose: 2 cap Documented by: Magnesium Oxide (Magnesium Oxide 400 Mg Tab) 400 mg PO BID [facility] Stop: 10/06/21 08:59 Last Admin: 09/20/21 09:11 Dose: 400 mg Documented by: Miscellaneous (Carbohydrates For Hypoglycemia ) 15 - 30 gm PO UD PRN PRN Reason: Hypoglycemia Protocol Stop: 10/06/21 04:13 Miscellaneous (Bethanechol~Order Awaiting Action) 1 ea N/A QS [facility] Stop: 10/06/21 07:59 Last Admin: 09/20/21 13:42 Dose: Not Given Documented by: Miscellaneous Information (Daptomycin Consult Active) 1 ea N/A UD PRN PRN Reason: Consult Stop: 10/22/21 05:59 Miscellaneous Medication (Medical Marijuana) 1 dose INH UD PRN PRN Reason: Pain Stop: 10/06/21 04:44 Multivitamins (Multivitamin Tab) [facility] [place] Stop: 10/06/21 08:59 Last Admin: 09/20/21 09:11 Dose: 1 tab Documented by: Pantoprazole Sodium (Pantoprazole 40 Mg Tab) 40 mg PO QAM [facility] Stop: 10/06/21 08:59 Last Admin: 09/20/21 09:11 Dose: 40 mg Documented by: Sodium Hypochlorite (Dakin's Soln 0.125% Quarter Strength 1000 Ml Btl) 1 appln EXT DAILY [facility] Stop: 10/09/21 08:59 Last Admin: 09/20/21 09:24 Dose: Not Given Documented by: Tizanidine HCl (Tizanidine Hcl 4 Mg Tablet) 4 mg PO BID [facility] Stop: 10/06/21 08:59 Last Admin: 09/20/21 09:11 Dose: 4 mg Documented by: Warfarin Sodium (Warfarin Sod 7.5 Mg Tab) 7.5 mg PO MoWeFrSa@1600 [facility] Stop: 10/17/21 19:59 Last Admin: 09/19/21 15:48 Dose: 7.5 mg Documented by: Warfarin Sodium (Warfarin Sod 5 Mg Tab) 5 mg PO SuTuTh@1600 [facility] Stop: 10/18/21 15:59 Last Admin: 09/18/21 18:11 Dose: 5 mg Documented by: Zolpidem Tartrate (Zolpidem Tartrate 5 Mg Tab) 5 mg PO DAILY@1999 [facility] Stop: 10/19/21 19:59 Last Admin: 09/19/21 23:34 Dose: 5 mg Documented by:
[2021-09-20] MEDS: WARFARIN SOD 7.5 MG TAB PO SCH (18:16)
[2021-09-20] MEDS: CYCLOBENZAPRINE HCL 5 MG TAB PO SCH (20:50)
[2021-09-20] MEDS: HYOSCYAMINE SULFATE 0.125 MG TAB PO SCH (20:52)
[2021-09-20] MEDS: ZOLPIDEM TARTRATE 5 MG TAB PO SCH (22:51)
[2021-09-21] MEDS: DAPTOMYCIN IV SCH (06:39)
[2021-09-21] MEDS: HEPARIN SOD 5,000 UNIT/0.5 ML VIAL SQ SCH ×3 (06:40→21:20)
[2021-09-21] MEDS: CEFTAZIDIME AVIBACTAM IV SCH ×3 (09:04→21:27)
[2021-09-21] MEDS: DEXTROSE 5% IV SCH ×3 (09:04→21:27)
[2021-09-21] MEDS: DAKIN'S SOLN 0.125% QUARTER STRENGTH 473 ML BTL EXT SCH (09:05)
[2021-09-21] MEDS: BACLOFEN 10 MG TAB PO SCH ×4 (09:06→21:25)
[2021-09-21] MEDS: MULTIVITAMIN TAB PO SCH (09:06)
[2021-09-21] MEDS: PANTOprazole 40 MG TAB PO SCH (09:06)
[2021-09-21] MEDS: GABAPENTIN 800 MG TAB PO SCH ×2 (09:06→21:24)
[2021-09-21] MEDS: FAMOTIDINE 20 MG TAB PO SCH ×2 (09:06→21:25)
[2021-09-21] MEDS: MAGNESIUM OXIDE 400 MG TAB PO SCH ×2 (09:06→21:25)
[2021-09-21] MEDS: ADVANCED PROBIOTIC 1250 MG CAPSULE PO SCH (09:06)
[2021-09-21] MEDS: FERROUS GLUCONATE 324 MG TAB PO SCH (09:06)
[2021-09-21] MEDS: tiZANidine HCL 4 MG TABLET PO SCH ×2 (09:07→21:24)
[2021-09-21] MEDS: allopurinoL 100 MG TAB PO SCH ×2 (09:08→21:27)
[2021-09-21] MEDS: INSULIN HUMAN 70% NPH/30% REGULAR SQ SCH ×3 (09:08→21:19)
[2021-09-21 09:17] LABS: INR 1.1 (0.9-1.1); Prothrombin Time 11.3 Seconds (9.0-12.0)
[2021-09-21] MEDS: INSULIN ASPART PER UNIT SC SCH ×4 (09:17→21:19)
[2021-09-21] MEDS: CASPOFUNGIN 50 MG in SODIUM CHLORIDE 0.9% 250 ML IV SCH (11:30)
--- NOTE | 2021-09-21 13:58 | Hospitalist Progress Note ---
Date of Service September 21, 2021 Assessment & Plan (1) Severe sepsis: Plan: Infected sacral wound causing severe sepsis on admission-resuscitated. Source control performed ~ 09/06/21-->Incision and Drainage and Debridement Sacral Tissue Down to Bone, 15cm x 11cm - Agusto Chaudhry DO Operative cultures sent: 09/06 buttock culture: E. Faecium VRE, Jocelyn albicans/dubliniensis, Pseudomonas: multidrug resistant, E.faecium sensitive to Dapto 09/06 sacrum wound culture: E Faecium VRE, Jocelyn albicans/dubliniensis ~ 09/08/21 ---> Revision I&D of the sacral decubitus ulcer by Agusto Weeks DO ~09/16/21 --> s/p Excisional Debridement of Sacral Ulcer down to Muscle Level 15cm x 11cm(Not Applicable) - Agusto Chaudhry DO He remains on IV antibiotics and antifungals per ID. Per surgery will place a wound VAC to see if we can get it to granulate-this is in place. Cont hospitalization pending insurance authorization of wound vac and home health setup vs SNF . (2) Sacral decubitus ulcer, stage IV: Plan: plan as above. (3) Osteomyelitis: Plan: Per ID, Daptomycin, ceftazidime/Avibactam, caspofungin times total of 6 weeks Daptomycin started September 06, 2021 Ceftazidime/avibactam started September 11, 2021 Caspofungin started September 11, 2021 f/u with ID and outpatient wound care. PICC in place. During therapy, CK, CMP and CBC with differential weekly. Obtain CRP weekly until 2 months after stopping therapy. (4) Quadriplegia: Plan: Chronic, bedbound. Turn every 2, utilize therapy (Envella) bed. (5) DM type 2 (diabetes mellitus, type 2): Plan: Patient states that glargine does not work for him, glucose levels are slightly elevated around 200-240. Switched glargine to his home NPH at 50 units twice daily. Gucose numbers around goal, increase to home dose 55 Units BID. We will continue NovoLog sliding scale as needed. (6) Nocturnal hypoxia: Plan: Patient utilizes oxygen while sleeping (7) Neurogenic bladder: Plan: Chronic indwelling Martinez present (surapubic catheter) (8) Morbid obesity: (9) Current use of care home anticoagulation: Plan: Patient on Coumadin, INR therapeutic at admission, IVC filter placed 11 years ago per patient. Warfarin restarted as ok with surgery. Trend INR-still subtherapeutic after 3 consecutive days at 7.5mg. Increase to 10mg daily and cont trending INR. (10) Anemia: Plan: Acute on chronic anemia, Likely from acute blood loss secondary to recent procedure and chronic comorbidities. He received 1 unit pRBC on 09/06 and another unit of PRBCs on 09/10. He also received 4 units of fresh frozen plasma on 09/06. H&H stable, no indication for transfusion at this time. Iron levels reveal iron deficiency, continue iron supplementation and outpatient followup. (11) DVT prophylaxis: Plan: Heparin/warfarin-continue with heparin for DVT prophylaxis while warfarin is building up in system, until INR greater than 2. Full code Disposition-pending wound vac authorization and home health set up for med infusions. Updated who was at bedside today. Rylee Hay DO [facility] Admission and Anticipated Discharge Date Admission Date: September 06, 2021 Subjective 60-year-old man with morbid obesity who is bedbound admitted for osteomyelitis of sacral decubitus ulcer that is chronic. Status post repeat wound debridement by Dr. Chaudhry on 09/15/2021. Patient states he is doing well overall tolerating p.o. and denies fevers or chills. subtherapeutic INR, recently restarted coumadin--increased today as INR stil 1.1 denies pain telemetry removed. miralax given Review of Systems Review of Systems: All systems were reviewed and negative except as indicated above. Physical Exam Physical Exam: CONSTITUTIONAL: morbid obesity, vitals as above, generally well-appearing, NAD EYES: normal conjunctivae, no scleral icterus ENT: external ear and nose normal, MMM NECK: trachea midline RESPIRATORY: clear to auscultation bilaterally, no crackles, rales or wheezes, normal respiratory effort CARDIOVASCULAR: regular rate and rhythm, S1 and 2 heard without murmurs, gallops or rubs, no JVD, no peripheral edema CHEST: inspection of chest was normal GASTROINTESTINAL: soft, nontender, ND, suprapubic catheter in place, no erythema surrounding insertion site, no drainage, no guarding. He has a colostomy in place with normal stool and gas in bag. MUSCULOSKELETAL: unable to move legs, can move both arms with limitations, difficult to life left upper arm/shoulder, generalized weakness, head is normocephalic and atraumatic, waffle boots to lower extremities. Patient cannot independently reposition in the bed. SKIN: warm and dry, Stage IV sacral decubitus ulcer-wound vac in place NEUROLOGIC: CN 2-12 grossly intact, no sensory deficit, normal cognition, normal speech, no tremor PSYCHIATRIC: alert cooperative and oriented to person, place and time. Euthymic mood, makes good eye contact, language grossly intact, recent and remote memory grossly intact. Results & Data Results & Data ([facility]) Vital Signs (Past 12 Hours) Vital Signs Temp Pulse Resp BP Pulse Ox 09/21/21 10:00 36.5 C 94 H 22 123/66 94 09/21/21 07:00 36.4 C L 76 22 97/61 L 98 09/21/21 03:06 36.5 C 73 18 103/63 99 Medications Administered Current Inpatient Medications Acetaminophen (Acetaminophen 325 Mg Tab) 650 mg PO Q4H PRN PRN Reason: Pain or Fever Stop: 10/06/21 04:13 Last Admin: 09/10/21 22:48 Dose: 650 mg Documented by: Allopurinol (Allopurinol 100 Mg Tab) 100 mg PO BID [facility] Stop: 10/06/21 08:59 Last Admin: 09/21/21 09:08 Dose: 100 mg Documented by: Baclofen (Baclofen 10 Mg Tab) 10 mg PO QID JO Stop: 10/06/21 08:59 Last Admin: 09/21/21 13:00 Dose: 10 mg Documented by: Ceftazidime/Avibactam (Ceftazidime-Avibactam Consult Active) 1 ea N/A UD PRN PRN Reason: Consult Stop: 10/23/21 09:13 Cyclobenzaprine HCl (Cyclobenzaprine Hcl 5 Mg Tab) 15 mg PO HS [facility] Stop: 10/06/21 20:59 Last Admin: 09/20/21 20:50 Dose: 15 mg Documented by: Dextrose (Dextrose 50% 50 Ml Syringe) 25 - 50 ml IV UD PRN; Protocol PRN Reason: Hypoglycemia Protocol Stop: 10/06/21 04:13 Escitalopram Oxalate (Escitalopram Oxalate 20 Mg Tab) 20 mg PO QAM JO Stop: 10/06/21 08:59 Last Admin: 09/10/21 08:03 Dose: 20 mg Documented by: Famotidine (Famotidine 20 Mg Tab) 20 mg PO BID JO Stop: 10/06/21 08:59 Last Admin: 09/21/21 09:06 Dose: 20 mg Documented by: Ferrous Gluconate (Ferrous Gluconate 324 Mg Tab) 324 mg PO QAM JO Stop: 10/06/21 08:59 Last Admin: 09/21/21 09:06 Dose: 324 mg Documented by: Gabapentin (Gabapentin 800 Mg Tab) 800 mg PO BID JO Stop: 10/06/21 08:59 Last Admin: 09/21/21 09:06 Dose: 800 mg Documented by: Glucagon (Glucagon For Inj 1 Mg Vial) 1 mg SQ UD PRN; Protocol PRN Reason: Hypoglycemia Protocol Stop: 10/06/21 04:13 Glucose (Glucose 10 Tabs/Tube) 4 - 8 tabs PO UD PRN; Protocol PRN Reason: Hypoglycemia Protocol Stop: 10/06/21 04:13 Glucose (Glucose 40% Gel 15 Gm Tube) 15 - 30 gm PO UD PRN; Protocol PRN Reason: Hypoglycemia Protocol Stop: 10/06/21 04:13 Heparin Sodium (Beef Lung) (Heparin 10 Unit/Ml 5 Ml Flush) 5 ml FLUSH PRN PRN PRN Reason: Flush Stop: 10/09/21 18:36 Last Admin: 09/21/21 06:39 Dose: 5 ml Documented by: Heparin Sodium (Porcine) (Heparin Sod 5,000 Unit/0.5 Ml Vial) 5,000 units SQ Q8 JO Stop: 10/11/21 21:59 Last Admin: 09/21/21 13:00 Dose: 5,000 units Documented by: Hyoscyamine (Hyoscyamine Sulfate 0.125 Mg Tab) 0.125 mg PO QPM JO Stop: 10/06/21 20:59 Last Admin: 09/20/21 20:52 Dose: 0.125 mg Documented by: Sodium Chloride (Nss) 250 mls @ 15 mls/hr IV .[id number] PRN PRN Reason: For Transfusion Stop: 10/06/21 04:13 Daptomycin 875 mg/ Syringe 17.5 mls @ 8.75 mls/min IV Q24H [facility]; Protocol Stop: 10/22/21 05:59 Last Admin: 09/21/21 06:39 Dose: 8.75 mls/min Documented by: Caspofungin 50 mg/ Sodium (Chloride) 260 mls @ 260 mls/hr IV DAILY [facility] Stop: 10/24/21 08:59 Last Infusion: 09/21/21 13:10 Dose: Infused Documented by: Ceftazidime/Avibactam 2.5 gm/ (Dextrose) 62 mls @ 31 mls/hr IV Q8H [facility]; Protocol Stop: 10/23/21 21:59 Last Infusion: 09/21/21 11:11 Dose: Infused Documented by: Insulin Aspart (Insulin Aspart Per Unit) 0 units SC ACHS [facility] Stop: 10/06/21 04:59 Last Admin: 09/21/21 13:07 Dose: 10 units Documented by: Insulin Human Isoph/Insulin Regular (Insulin Human 70% Nph/30% Regular) 50 units SQ BIDM [facility] Stop: 10/17/21 19:59 Last Admin: 09/21/21 09:08 Dose: 50 units Documented by: Irbesartan (Irbesartan 75 Mg Tab) 75 mg PO DAILY [facility] Stop: 10/06/21 08:59 Last Admin: 09/06/21 08:33 Dose: 75 mg Documented by: Lactobacillus Acidoph/Casei/Rhamnos (Advanced Probiotic 1250 Mg Capsule) 2 cap PO DAILY [facility] Stop: 10/06/21 08:59 Last Admin: 09/21/21 09:06 Dose: 2 cap Documented by: Magnesium Oxide (Magnesium Oxide 400 Mg Tab) 400 mg PO BID [facility] Stop: 10/06/21 08:59 Last Admin: 09/21/21 09:06 Dose: 400 mg Documented by: Miscellaneous (Carbohydrates For Hypoglycemia ) 15 - 30 gm PO UD PRN PRN Reason: Hypoglycemia Protocol Stop: 10/06/21 04:13 Miscellaneous (Bethanechol~Order Awaiting Action) 1 ea N/A QS [facility] Stop: 10/06/21 07:59 Last Admin: 09/21/21 09:05 Dose: Not Given Documented by: Miscellaneous Information (Daptomycin Consult Active) 1 ea N/A UD PRN PRN Reason: Consult Stop: 10/22/21 05:59 Miscellaneous Medication (Medical Marijuana) 1 dose INH UD PRN PRN Reason: Pain Stop: 10/06/21 04:44 Multivitamins (Multivitamin Tab) 1 tab PO [facility] Stop: 10/06/21 08:59 Last Admin: 09/21/21 09:06 Dose: 1 tab Documented by: Pantoprazole Sodium (Pantoprazole 40 Mg Tab) [facility] Stop: 10/06/21 08:59 Last Admin: 09/21/21 09:06 Dose: 40 mg Documented by: Sodium Hypochlorite (Dakin's Soln 0.125% Quarter Strength 1000 Ml Btl) 1 appln EXT DAILY [facility] Stop: 10/09/21 08:59 Last Admin: 09/21/21 09:05 Dose: Not Given Documented by: Tizanidine HCl (Tizanidine Hcl 4 Mg Tablet) 4 mg PO BID [facility] Stop: 10/06/21 08:59 Last Admin: 09/21/21 09:07 Dose: 4 mg Documented by: Warfarin Sodium (Warfarin Sod 7.5 Mg Tab) 7.5 mg PO MoWeFrSa@1600 [facility] Stop: 10/17/21 19:59 Last Admin: 09/20/21 18:16 Dose: 7.5 mg Documented by: Warfarin Sodium (Warfarin Sod 5 Mg Tab) 5 mg PO SuTuTh@1599 [facility] Stop: 10/18/21 15:59 Last Admin: 09/18/21 18:11 Dose: 5 mg Documented by: Zolpidem Tartrate (Zolpidem Tartrate 5 Mg Tab) 5 mg PO DAILY@1999 [facility] Stop: 10/19/21 19:59 Last Admin: 09/20/21 22:51 Dose: 5 mg Documented by:
[2021-09-21] MEDS: WARFARIN SOD 10 MG TAB PO SCH (16:16)
[2021-09-21] MEDS: rOPINIRole HCL 1 MG TABLET PO SCH (18:34)
[2021-09-21] MEDS: POTASSIUM CHLORIDE 10 MEQ TABCR PO SCH (18:35)
[2021-09-21] MEDS: FUROSEMIDE 40 MG TAB PO SCH (21:24)
[2021-09-21] MEDS: HYOSCYAMINE SULFATE 0.125 MG TAB PO SCH (21:24)
[2021-09-21] MEDS: CYCLOBENZAPRINE HCL 5 MG TAB PO SCH (21:24)
[2021-09-21] MEDS: POLYETHYLENE (MIRALAX) 17 GM PACK PO PRN (21:42)
[2021-09-21] MEDS: ZOLPIDEM TARTRATE 5 MG TAB PO SCH (23:30)
[2021-09-22] MEDS: rOPINIRole HCL 1 MG TABLET PO SCH ×4 (00:22→18:25)
[2021-09-22] MEDS: DAPTOMYCIN IV SCH (06:17)
[2021-09-22] MEDS: DEXTROSE 5% IV SCH ×3 (06:19→22:17)
[2021-09-22] MEDS: CEFTAZIDIME AVIBACTAM IV SCH ×3 (06:19→22:17)
[2021-09-22] MEDS: HEPARIN SOD 5,000 UNIT/0.5 ML VIAL SQ SCH ×3 (06:21→22:18)
[2021-09-22] MEDS: FUROSEMIDE 40 MG TAB PO SCH ×2 (06:25→18:24)
[2021-09-22 08:26] LABS: INR 1.2 (0.9-1.1); Prothrombin Time 11.8 Seconds (9.0-12.0)
[2021-09-22] MEDS: DAKIN'S SOLN 0.125% QUARTER STRENGTH 473 ML BTL EXT SCH (08:37)
[2021-09-22] MEDS ORDERED: PHARMACY GLYCEMIC MGMT CONSULT PRN (09:02)
[2021-09-22] MEDS: allopurinoL 100 MG TAB PO SCH ×2 (09:07→20:29)
[2021-09-22] MEDS: tiZANidine HCL 4 MG TABLET PO SCH ×2 (09:07→20:27)
[2021-09-22] MEDS: FERROUS GLUCONATE 324 MG TAB PO SCH (09:07)
[2021-09-22] MEDS: ADVANCED PROBIOTIC 1250 MG CAPSULE PO SCH (09:08)
[2021-09-22] MEDS: MULTIVITAMIN TAB PO SCH (09:08)
[2021-09-22] MEDS: GABAPENTIN 800 MG TAB PO SCH ×2 (09:08→20:28)
[2021-09-22] MEDS: FAMOTIDINE 20 MG TAB PO SCH ×2 (09:08→20:28)
[2021-09-22] MEDS: MAGNESIUM OXIDE 400 MG TAB PO SCH ×2 (09:08→20:27)
[2021-09-22] MEDS: PANTOprazole 40 MG TAB PO SCH (09:08)
[2021-09-22] MEDS: SPIRONOLACTONE 25 MG TAB PO SCH (09:09)
[2021-09-22] MEDS: POTASSIUM CHLORIDE 10 MEQ TABCR PO SCH ×2 (09:10→18:24)
[2021-09-22] MEDS: BACLOFEN 10 MG TAB PO SCH ×4 (09:10→20:30)
[2021-09-22] MEDS: CASPOFUNGIN 50 MG in SODIUM CHLORIDE 0.9% 250 ML IV SCH (09:12)
[2021-09-22] MEDS ORDERED: INSULIN HUMAN NPH SC SCH ×2 (09:15→17:00)
--- NOTE | 2021-09-22 09:22 | Pharmacy Report ---
Pharmacy Glycemic Short Note 2 - Date of Service September 22, 2021 - Glycemic Short BSG Results (Last 24 hours): 09/21/21 09/21/21 09/21/21 11:27 16:21 20:13 POC Glucose 267 H 180 H 299 H 09/22/21 07:40 POC Glucose 233 H OUTPATIENT ANTIDIABETIC REGIMEN: * Novolin 70/30 insulin 56 units SC BIDM * Novolin R via sliding scale * Metformin 1 g PO BIDM * HbA1c ordered for 09/23/21 ASSESSMENT: * BRANDON is a 60 year old male admitted on 09/06/21 with severe sepsis secondary to infected sacral wounds/osteomyelitis * Pharmacy consulted today for glycemic management given persistent glucose elevations and patient preference for NPH insulin * Prior to consult, patient was receiving 70/30 insulin with Novolog (with correction factor and carb ratio) * Will switch to NPH insulin BID and tighten Novolog parameters to more easily titrate doses * Yesterday patient received ~137 units of insulin (74 units of basal and 63 units of bolus) * BSGs yesterday of 207, 267, 180, and 290 mg/dL * Will tighten Novolog parameters considerably today (especially in light of removing bolus component of 70/30) * Fasting BSG of 233 mg/dL this morning - will plan to increase basal component * AM insulin given after 10 AM, won't overreact to elevated BSG at lunchtime PLAN FOR INPATIENT GLYCEMIC CONTROL: * Hold outpatient oral diabetes medications * Basal insulin - change 70/30 to NPH with Novolog (increase NPH today) * NPH 50 units SC with breakfast * NPH 35-50 units SC with dinner (see EHR for details) * Bolus insulin - tighten * NovoLog per scale ACHS or Q6hrs while NPO * Goal Range: Low 110 mg/dL - High 140 mg/dL * Correction Factor: 10 mg/dL/unit * Nutritional / Prandial insulin per carb ratio of 1 unit per 3 grams CHO consumed PLAN FOR DISCHARGE: * Await A1c result - TBD
[2021-09-22] MEDS: INSULIN HUMAN NPH SC SCH (10:05)
[2021-09-22] MEDS: INSULIN ASPART PER UNIT SC SCH ×4 (10:17→21:55)
[2021-09-22] MEDS: ESCITALOPRAM OXALATE 20 MG TAB PO SCH (10:22)
[2021-09-22] MEDS: INSULIN HUMAN 70% NPH/30% REGULAR SQ SCH (10:34)
[2021-09-22] MEDS: ZINC SULFATE 220 MG CAPSULE PO SCH (13:14)
--- NOTE | 2021-09-22 13:25 | Hospitalist Progress Note ---
Date of Service September 22, 2021 Assessment & Plan (1) Severe sepsis: Plan: Infected sacral wound causing severe sepsis on admission-resuscitated. Source control performed ~ 09/06/21-->Incision and Drainage and Debridement Sacral Tissue Down to Bone, 15cm x 11cm - Agusto Chaudhry DO Operative cultures sent: 09/06 buttock culture: E. Faecium VRE, Jocelyn albicans/dubliniensis, Pseudomonas: multidrug resistant, E.faecium sensitive to Dapto 09/06 sacrum wound culture: E Faecium VRE, Jocelyn albicans/dubliniensis ~ 09/08/21 ---> Revision I&D of the sacral decubitus ulcer by Agusto Weeks DO ~09/16/21 --> s/p Excisional Debridement of Sacral Ulcer down to Muscle Level 15cm x 11cm(Not Applicable) - Agusto Chaudhry DO He remains on IV antibiotics and antifungals per ID. Per surgery will place a wound VAC to see if we can get it to granulate-this is in place. Cont hospitalization pending insurance authorization of wound vac and home health setup vs SNF . (2) Sacral decubitus ulcer, stage IV: Plan: plan as above. Awaiting placement (3) Osteomyelitis: Plan: Per ID, Daptomycin, ceftazidime/Avibactam, caspofungin times total of 6 weeks Daptomycin started September 06, 2021 Ceftazidime/avibactam started September 11, 2021 Caspofungin started September 11, 2021 f/u with ID and outpatient wound care. PICC in place. During therapy, CK, CMP and CBC with differential weekly. Obtain CRP weekly until 2 months after stopping therapy. (4) Quadriplegia: Plan: Chronic, bedbound. Turn every 2, utilize therapy (Envella) bed. (5) DM type 2 (diabetes mellitus, type 2): Plan: Patient states that glargine does not work for him, glucose levels are slightly elevated around 200-240. Switched glargine to his home NPH at 50 units twice daily. Gucose numbers around goal, increase to home dose 55 Units BID. We will continue NovoLog sliding scale as needed. 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 Warfarin restarted as ok with surgery. Trend INR-still subtherapeutic after 3 consecutive days at 7.5mg. Increase to 10mg daily and cont trending INR. (10) Anemia: Plan: Acute on chronic anemia, Likely from acute blood loss secondary to recent procedure and chronic comorbidities. He received 1 unit pRBC on 09/06 and another unit of PRBCs on 09/10. He also received 4 units of fresh frozen plasma on 09/06. H&H stable, no indication for transfusion at this time. Iron levels reveal iron deficiency, continue iron supplementation and outpatient followup. (11) DVT prophylaxis: Plan: Heparin/warfarin-continue with heparin for DVT prophylaxis while warfarin is building up in system, until INR greater than 2. Full code Disposition-pending wound vac authorization and placement. Rylee Hay DO [facility] and [facility]ticipated Discharge Date Admission Date: September 06, 2021 Subjective 60-year-old man with morbid obesity who is bedbound admitted for osteomyelitis of sacral decubitus ulcer that is chronic. Status post repeat wound debridement by Dr. Chaudhry on 09/15/2021. Patient states he is doing well overall tolerating p.o. and denies fevers or chills. denies pain after wound vac change doing well overall Review of Systems Review of Systems: All systems were reviewed and negative except as indicated above. Physical Exam Physical Exam: CONSTITUTIONAL: morbid obesity, vitals as above, generally well-appearing, NAD EYES: normal conjunctivae, no scleral icterus ENT: external ear and nose normal, MMM NECK: trachea midline RESPIRATORY: clear to auscultation bilaterally, no crackles, rales or wheezes, normal respiratory effort CARDIOVASCULAR: regular rate and rhythm, S1 and 2 heard without murmurs, gallops or rubs, no JVD, no peripheral edema CHEST: inspection of chest was normal GASTROINTESTINAL: soft, nontender, ND, suprapubic catheter in place, no erythema surrounding insertion site, no drainage, no guarding. He has a colostomy in place with normal stool and gas in bag. MUSCULOSKELETAL: unable to move legs, can move both arms with limitations, difficult to life left upper arm/shoulder, generalized weakness, head is normocephalic and atraumatic, waffle boots to lower extremities. Patient cannot independently reposition in the bed. SKIN: warm and dry, Stage IV sacral decubitus ulcer-wound vac in place NEUROLOGIC: CN 2-12 grossly intact, no sensory deficit, normal cognition, normal speech, no tremor PSYCHIATRIC: alert cooperative and oriented to person, place and time. Euthymic mood, makes good eye contact, language grossly intact, recent and remote memory grossly intact. Results & Data Results & Data ([facility]) Vital Signs (Past 12 Hours) Vital Signs Temp Pulse Resp BP Pulse Ox 09/22/21 11:00 36.4 C L 74 22 106/66 92 09/22/21 06:25 36.5 C 70 16 110/64 94 Medications Administered Current Inpatient Medications Acetaminophen (Acetaminophen 325 Mg Tab) 650 mg PO Q4H PRN PRN Reason: Pain or Fever Stop: 10/06/21 04:13 Last Admin: 09/10/21 22:48 Dose: 650 mg Documented by: Allopurinol (Allopurinol 100 Mg Tab) 100 mg PO BID [facility] Stop: 10/06/21 08:59 Last Admin: 09/22/21 09:07 Dose: 100 mg Documented by: Baclofen (Baclofen 10 Mg Tab) 10 mg PO QID JO Stop: 10/06/21 08:59 Last Admin: 09/22/21 13:13 Dose: 10 mg Documented by: Ceftazidime/Avibactam (Ceftazidime-Avibactam Consult Active) 1 ea N/A UD PRN PRN Reason: Consult Stop: 10/23/21 09:13 Cyclobenzaprine HCl (Cyclobenzaprine Hcl 5 Mg Tab) 15 mg PO HS [facility] Stop: 10/06/21 20:59 Last Admin: 09/21/21 21:24 Dose: 15 mg Documented by: Dextrose (Dextrose 50% 50 Ml Syringe) 25 - 50 ml IV UD PRN; Protocol PRN Reason: Hypoglycemia Protocol Stop: 10/06/21 04:13 Escitalopram Oxalate (Escitalopram Oxalate 20 Mg Tab) 20 mg PO QAM JO Stop: 10/06/21 08:59 Last Admin: 09/22/21 10:22 Dose: 20 mg Documented by: Famotidine (Famotidine 20 Mg Tab) 20 mg PO BID [facility] Stop: 10/06/21 08:59 Last Admin: 09/22/21 09:08 Dose: 20 mg Documented by: Ferrous Gluconate (Ferrous Gluconate 324 Mg Tab) 324 mg PO QAM JO Stop: 10/06/21 08:59 Last Admin: 09/22/21 09:07 Dose: 324 mg Documented by: Furosemide (Furosemide 40 Mg Tab) 40 mg PO BID@0600,1800 JO Stop: 10/21/21 20:59 Last Admin: 09/22/21 06:25 Dose: 40 mg Documented by: Gabapentin (Gabapentin 800 Mg Tab) 800 mg PO BID JO Stop: 10/06/21 08:59 Last Admin: 09/22/21 09:08 Dose: 800 mg Documented by: Glucagon (Glucagon For Inj 1 Mg Vial) 1 mg SQ UD PRN; Protocol PRN Reason: Hypoglycemia Protocol Stop: 10/06/21 04:13 Glucose (Glucose 10 Tabs/Tube) 4 - 8 tabs PO UD PRN; Protocol PRN Reason: Hypoglycemia Protocol Stop: 10/06/21 04:13 Glucose (Glucose 40% Gel 15 Gm Tube) 15 - 30 gm PO UD PRN; Protocol PRN Reason: Hypoglycemia Protocol Stop: 10/06/21 04:13 Heparin Sodium (Beef Lung) (Heparin 10 Unit/Ml 5 Ml Flush) 5 ml FLUSH PRN PRN PRN Reason: Flush Stop: 10/09/21 18:36 Last Admin: 09/21/21 23:31 Dose: 5 ml Documented by: Heparin Sodium (Porcine) (Heparin Sod 5,000 Unit/0.5 Ml Vial) 5,000 units SQ Q8 JO Stop: 10/11/21 21:59 Last Admin: 09/22/21 13:13 Dose: 5,000 units Documented by: Hyoscyamine (Hyoscyamine Sulfate 0.125 Mg Tab) 0.125 mg PO QPM JO Stop: 10/06/21 20:59 Last Admin: 09/21/21 21:24 Dose: 0.125 mg Documented by: Daptomycin 875 mg/ Syringe 17.5 mls @ 8.75 mls/min IV Q24H [facility]; Protocol Stop: 10/22/21 05:59 Last Admin: 09/22/21 06:17 Dose: 8.75 mls/min Documented by: Caspofungin 50 mg/ Sodium (Chloride) 260 mls @ 260 mls/hr IV DAILY [facility] Stop: 10/24/21 08:59 Last Admin: 09/22/21 09:12 Dose: 260 mls/hr Documented by: Ceftazidime/Avibactam 2.5 gm/ (Dextrose) 62 mls @ 31 mls/hr IV Q8H [facility]; Protocol Stop: 10/23/21 21:59 Last Infusion: 09/22/21 08:37 Dose: Infused Documented by: Insulin Aspart (Insulin Aspart Per Unit) 0 units SC ACHS [facility] Stop: 10/06/21 04:59 Last Admin: 09/22/21 13:20 Dose: 24 units Documented by: Insulin Human NPH (Insulin Human Nph) 50 units SC DAILY@0800 [facility] Stop: 10/22/21 09:14 Last Admin: 09/22/21 10:05 Dose: 50 units Documented by: Insulin Human NPH (Insulin Human Nph) 0 units SC DAILY@1700 [facility]; Protocol Stop: 10/22/21 16:59 Irbesartan (Irbesartan 75 Mg Tab) 75 mg PO DAILY [facility] Stop: 10/06/21 08:59 Last Admin: 09/06/21 08:33 Dose: 75 mg Documented by: Lactobacillus Acidoph/Casei/Rhamnos (Advanced Probiotic 1250 Mg Capsule) 2 cap PO DAILY [facility] Stop: 10/06/21 08:59 Last Admin: 09/22/21 09:08 Dose: 2 cap Documented by: Magnesium Oxide (Magnesium Oxide 400 Mg Tab) 400 mg PO BID [facility] Stop: 10/06/21 08:59 Last Admin: 09/22/21 09:08 Dose: 400 mg Documented by: Miscellaneous (Carbohydrates For Hypoglycemia ) 15 - 30 gm PO UD PRN PRN Reason: Hypoglycemia Protocol Stop: 10/06/21 04:13 Miscellaneous (Bethanechol~Order Awaiting Action) 1 ea N/A QS [facility] Stop: 10/06/21 07:59 Last Admin: 09/22/21 08:38 Dose: Not Given Documented by: Miscellaneous Information (Daptomycin Consult Active) 1 ea N/A UD PRN PRN Reason: Consult Stop: 10/22/21 05:59 Miscellaneous Information (Pharmacy Glycemic Mgmt Consult) 1 ea N/A UD PRN PRN Reason: Consult Stop: 10/22/21 09:01 Miscellaneous Medication (Medical Marijuana) 1 dose INH UD PRN PRN Reason: Pain Stop: 10/06/21 04:44 Multivitamins (Multivitamin Tab) 1 tab PO QAM [facility] Stop: 10/06/21 08:59 Last Admin: 09/22/21 09:08 Dose: 1 tab Documented by: Pantoprazole Sodium (Pantoprazole 40 Mg Tab) 40 mg PO QAM [facility] Stop: 10/06/21 08:59 Last Admin: 09/22/21 09:08 Dose: 40 mg Documented by: Polyethylene Glycol (Polyethylene (Miralax) 17 Gm Pack) 17 gm PO Q8H PRN PRN Reason: Constipation Stop: 10/21/21 14:10 Last Admin: 09/21/21 21:42 Dose: 17 gm Documented by: Potassium Chloride (Potassium Chloride 10 Meq Tabcr) 10 meq PO BIDM [facility] Stop: 10/21/21 17:27 Last Admin: 09/22/21 09:10 Dose: 10 meq Documented by: Ropinirole HCl (Ropinirole Hcl 1 Mg Tablet) 1 mg PO QID@0000,0600,1200,1800 [facility] Stop: 10/21/21 17:59 Last Admin: 09/22/21 13:14 Dose: 1 mg Documented by: Sodium Hypochlorite (Dakin's Soln 0.125% Quarter Strength 1000 Ml Btl) 1 appln EXT DAILY [facility] Stop: 10/09/21 08:59 Last Admin: 09/22/21 08:37 Dose: Not Given Documented by: Spironolactone (Spironolactone 25 Mg Tab) 25 mg PO QAM [facility] Stop: 10/22/21 08:59 Last Admin: 09/22/21 09:09 Dose: 25 mg Documented by: Tizanidine HCl (Tizanidine Hcl 4 Mg Tablet) 4 mg PO BID [facility] Stop: 10/06/21 08:59 Last Admin: 09/22/21 09:07 Dose: 4 mg Documented by: Warfarin Sodium (Warfarin Sod 10 Mg Tab) 10 mg PO DAILY@1600 [facility] Stop: 10/21/21 15:59 Last Admin: 09/21/21 16:16 Dose: 10 mg Documented by: Zinc Sulfate (Zinc Sulfate 220 Mg Capsule) 220 mg PO QDL [facility] Stop: 10/22/21 11:29 Last Admin: 09/22/21 13:14 Dose: 220 mg Documented by: Zolpidem Tartrate (Zolpidem Tartrate 5 Mg Tab) 5 mg PO DAILY@1999 [facility] Stop: 10/19/21 19:59 Last Admin: 09/21/21 23:30 Dose: 5 mg Documented by:
[2021-09-22] MEDS: WARFARIN SOD 10 MG TAB PO SCH (18:25)
[2021-09-22] MEDS: HYOSCYAMINE SULFATE 0.125 MG TAB PO SCH (20:28)
[2021-09-22] MEDS: CYCLOBENZAPRINE HCL 5 MG TAB PO SCH (20:30)
[2021-09-22] MEDS: ZOLPIDEM TARTRATE 5 MG TAB PO SCH ×2 (22:03→22:48)
[2021-09-23] MEDS: rOPINIRole HCL 1 MG TABLET PO SCH ×4 (00:51→18:27)
[2021-09-23] MEDS: FUROSEMIDE 40 MG TAB PO SCH ×2 (06:04→18:18)
[2021-09-23] MEDS: DEXTROSE 5% IV SCH ×3 (06:04→21:43)
[2021-09-23] MEDS: HEPARIN SOD 5,000 UNIT/0.5 ML VIAL SQ SCH ×3 (06:04→21:47)
[2021-09-23] MEDS: CEFTAZIDIME AVIBACTAM IV SCH ×3 (06:04→21:43)
[2021-09-23] MEDS: DAPTOMYCIN IV SCH (06:04)
[2021-09-23 06:22] LABS: INR 1.3 (0.9-1.1)
[2021-09-23 07:14] LABS: Estimated Average Glucose 160 mg/dl; Hemoglobin A1C 7.2 % (4.5-5.6)
[2021-09-23] MEDS: tiZANidine HCL 4 MG TABLET PO SCH ×2 (08:42→21:39)
[2021-09-23] MEDS: MAGNESIUM OXIDE 400 MG TAB PO SCH ×2 (08:42→21:40)
[2021-09-23] MEDS: allopurinoL 100 MG TAB PO SCH ×2 (08:42→21:42)
[2021-09-23] MEDS: GABAPENTIN 800 MG TAB PO SCH ×2 (08:42→21:41)
[2021-09-23] MEDS: MULTIVITAMIN TAB PO SCH (08:42)
[2021-09-23] MEDS: POTASSIUM CHLORIDE 10 MEQ TABCR PO SCH ×2 (08:42→18:18)
[2021-09-23] MEDS: FAMOTIDINE 20 MG TAB PO SCH ×2 (08:42→21:41)
[2021-09-23] MEDS: FERROUS GLUCONATE 324 MG TAB PO SCH (08:43)
[2021-09-23] MEDS: BACLOFEN 10 MG TAB PO SCH ×4 (08:43→21:42)
[2021-09-23] MEDS: ADVANCED PROBIOTIC 1250 MG CAPSULE PO SCH (08:43)
[2021-09-23] MEDS: ESCITALOPRAM OXALATE 20 MG TAB PO SCH (08:44)
[2021-09-23] MEDS: SPIRONOLACTONE 25 MG TAB PO SCH (08:44)
[2021-09-23] MEDS: PANTOprazole 40 MG TAB PO SCH (08:44)
[2021-09-23] MEDS: DAKIN'S SOLN 0.125% QUARTER STRENGTH 473 ML BTL EXT SCH (08:46)
[2021-09-23] MEDS: INSULIN HUMAN NPH SC SCH ×2 (08:47→18:16)
[2021-09-23] MEDS: INSULIN ASPART PER UNIT SC SCH ×4 (08:49→21:47)
[2021-09-23] MEDS: CASPOFUNGIN 50 MG in SODIUM CHLORIDE 0.9% 250 ML IV SCH (09:38)
--- NOTE | 2021-09-23 10:40 | Pharmacy Report ---
Pharmacy Glycemic Short Note 2 - Date of Service September 23, 2021 - Glycemic Short BSG Results (Last 24 hours): 09/22/21 09/22/21 09/22/21 11:27 16:35 20:22 POC Glucose 252 H 175 H 204 H 09/23/21 07:19 POC Glucose 178 H OUTPATIENT ANTIDIABETIC REGIMEN: * Novolin 70/30 insulin 56 units SC BIDM * Novolin R via sliding scale * Metformin 1 g PO BIDM * HbA1c: 7.2% (09/23/21) ASSESSMENT: 09/23 * BSGs slightly improved yesterday, 233, 252, 175, and 204 mg/dL * Received 179 units of insulin (95 units of NPH and 84 units of prandial/correctional Novolog) * Continues on broad spectrum antibiotics (Avycaz, daptomycin, and caspofungin) * Fasting BSG improved at 178 mg/dL this morning 09/22 * BRANDON is a 60 year old male admitted on 09/06/21 with severe sepsis secondary to infected sacral wounds/osteomyelitis * Pharmacy consulted today for glycemic management given persistent glucose elevations and patient preference for NPH insulin * Prior to consult, patient was receiving 70/30 insulin with Novolog (with cor rection factor and carb ratio) * Will switch to NPH insulin BID and tighten Novolog parameters to more easily titrate doses * Yesterday patient received ~137 units of insulin (74 units of basal and 63 units of bolus) * BSGs yesterday of 207, 267, 180, and 290 mg/dL * Will tighten Novolog parameters considerably today (especially in light of removing bolus component of 70/30) * Fasting BSG of 233 mg/dL this morning - will plan to increase basal component * AM insulin given after 10 AM, won't overreact to elevated BSG at lunchtime PLAN FOR INPATIENT GLYCEMIC CONTROL: * Hold outpatient oral diabetes medications * Basal insulin - continue * NPH 50 units SC with breakfast * NPH 35-50 units SC with dinner (see EHR for details) * Bolus insulin - continue * NovoLog per scale ACHS or Q6hrs while NPO * Goal Range: Low 110 mg/dL - High 140 mg/dL * Correction Factor: 10 mg/dL/unit * Nutritional / Prandial insulin per carb ratio of 1 unit per 3 grams CHO consumed PLAN FOR DISCHARGE: * HbA1c of 7.2% is reasonable for patient * Reasonable to current outpatient regimen at discharge * Reinforce importance of controlling blood sugars and wound healing
[2021-09-23] MEDS: ZINC SULFATE 220 MG CAPSULE PO SCH (12:51)
[2021-09-23] MEDS: WARFARIN SOD 10 MG TAB PO SCH (15:30)
--- NOTE | 2021-09-23 15:48 | Hospitalist Progress Note ---
Date of Service September 23, 2021 Assessment & Plan (1) Severe sepsis: Plan: Infected sacral wound causing severe sepsis on admission-resuscitated. Source control performed ~ 09/06/21-->Incision and Drainage and Debridement Sacral Tissue Down to Bone, 15cm x 11cm - Agusto Chaudhry DO Operative cultures sent: 09/06 buttock culture: E. Faecium VRE, Jocelyn albicans/dubliniensis, Pseudomonas: multidrug resistant, E.faecium sensitive to Dapto 09/06 sacrum wound culture: E Faecium VRE, Jocelyn albicans/dubliniensis ~ 09/08/21 ---> Revision I&D of the sacral decubitus ulcer by Agusto Weeks DO ~09/16/21 --> s/p Excisional Debridement of Sacral Ulcer down to Muscle Level 15cm x 11cm(Not Applicable) - Agusto Chaudhry DO He remains on IV antibiotics and antifungals per ID. Per surgery will place a wound VAC to see if we can get it to granulate-this is in place. Cont hospitalization pending insurance authorization of wound vac and home health setup vs SNF . (2) Sacral decubitus ulcer, stage IV: Plan: plan as above. Awaiting placement (3) Osteomyelitis: Plan: Per ID, Daptomycin, ceftazidime/Avibactam, caspofungin times total of 6 weeks Daptomycin started September 06, 2021 Ceftazidime/avibactam started September 11, 2021 Caspofungin started September 11, 2021 f/u with ID and outpatient wound care. PICC in place. During therapy, CK, CMP and CBC with differential weekly. Obtain CRP weekly until 2 months after stopping therapy. (4) Quadriplegia: Plan: Chronic, bedbound. Turn every 2, utilize therapy (Envella) bed. Requesting suprapubic catheter change-consulted Urology to perform. (5) DM type 2 (diabetes mellitus, type 2): Plan: Patient states that glargine does not work for him, glucose levels are slightly elevated around 200-240. Switched glargine to his home NPH at 50 units twice daily. Gucose numbers around goal, increase to home dose 55 Units BID. We will continue NovoLog sliding scale as needed. (6) Nocturnal hypoxia: Plan: Patient utilizes oxygen while sleeping (7) Neurogenic bladder: Plan: Chronic indwelling Martinez present (surapubic catheter) (8) Morbid obesity: (9) Current use of fdc anticoagulation: Plan: Patient on Coumadin, INR therapeutic at admission, IVC filter placed 11 years ago per patient. Warfarin restarted as ok with surgery. Trend INR-still subtherapeutic after 3 consecutive days at 7.5mg. Increased to 10mg daily on 09/21, and cont trending INR. Titrate for goal 2-3 (10) Anemia: Plan: Acute on chronic anemia, Likely from acute blood loss secondary to recent procedure and chronic comorbidities. He received 1 unit pRBC on 09/06 and another unit of PRBCs on 09/10. He also received 4 units of fresh frozen plasma on 09/06. H&H stable, no indication for transfusion at this time. Iron levels reveal iron deficiency, continue iron supplementation and outpatient followup. (11) DVT prophylaxis: Plan: Heparin/warfarin-continue with heparin for DVT prophylaxis while warfarin is building up in system, until INR greater than 2. Full code Disposition-pending wound vac authorization and placement. Rylee Hay DO [facility] Hospitalist Admission and Anticipated Discharge Date Admission Date: September 06, 2021 Subjective 60-year-old man with morbid obesity who is bedbound admitted for osteomyelitis of sacral decubitus ulcer that is chronic. Status post repeat wound debridement by Dr. Chaudhry on 09/15/2021. Patient states he is doing well overall tolerating p.o. and denies fevers or chills. denies pain after wound vac change doing well overall Review of Systems Review of Systems: All systems were reviewed and negative except as indicated above. Physical Exam Physical Exam: CONSTITUTIONAL: morbid obesity, vitals as above, generally well-appearing, NAD EYES: normal conjunctivae, no scleral icterus ENT: external ear and nose normal, MMM NECK: trachea midline RESPIRATORY: clear to auscultation bilaterally, no crackles, rales or wheezes, normal respiratory effort CARDIOVASCULAR: regular rate and rhythm, S1 and 2 heard without murmurs, gallops or rubs, no JVD, no peripheral edema CHEST: inspection of chest was normal GASTROINTESTINAL: soft, nontender, ND, suprapubic catheter in place, no erythema surrounding insertion site, no drainage, no guarding. He has a colostomy in place with normal stool and gas in bag. MUSCULOSKELETAL: unable to move legs, can move both arms with limitations, difficult to life left upper arm/shoulder, generalized weakness, head is normocephalic and atraumatic, waffle boots to lower extremities. Patient cannot independently reposition in the bed. SKIN: warm and dry, Stage IV sacral decubitus ulcer-wound vac in place NEUROLOGIC: CN 2-12 grossly intact, no sensory deficit, normal cognition, normal speech, no tremor PSYCHIATRIC: alert cooperative and oriented to person, place and time. Euthymic mood, makes good eye contact, language grossly intact, recent and remote memory grossly intact. Results & Data Results & Data ([facility]) Vital Signs (Past 12 Hours) Vital Signs Temp Pulse Resp BP Pulse Ox 09/23/21 15:05 36.6 C 68 18 98/55 L 96 09/23/21 07:03 36.5 C 76 20 129/72 99 09/23/21 04:52 36.4 C L 72 18 100/63 95 Medications Administered Current Inpatient Medications Acetaminophen (Acetaminophen 325 Mg Tab) 650 mg PO Q4H PRN PRN Reason: Pain or Fever Stop: 10/06/21 04:13 Last Admin: 09/10/21 22:48 Dose: 650 mg Documented by: Allopurinol (Allopurinol 100 Mg Tab) 100 mg PO BID [facility] Stop: 10/06/21 08:59 Last Admin: 09/23/21 08:42 Dose: 100 mg Documented by: Baclofen (Baclofen 10 Mg Tab) 10 mg PO QID JO Stop: 10/06/21 08:59 Last Admin: 09/23/21 12:51 Dose: 10 mg Documented by: Ceftazidime/Avibactam (Ceftazidime-Avibactam Consult Active) 1 ea N/A UD PRN PRN Reason: Consult Stop: 10/23/21 09:13 Cyclobenzaprine HCl (Cyclobenzaprine Hcl 5 Mg Tab) 15 mg PO HS [facility] Stop: 10/06/21 20:59 Last Admin: 09/22/21 20:30 Dose: 15 mg Documented by: Dextrose (Dextrose 50% 50 Ml Syringe) 25 - 50 ml IV UD PRN; Protocol PRN Reason: Hypoglycemia Protocol Stop: 10/06/21 04:13 Escitalopram Oxalate (Escitalopram Oxalate 20 Mg Tab) 20 mg PO QAM [facility] Stop: 10/06/21 08:59 Last Admin: 09/23/21 08:44 Dose: 20 mg Documented by: Famotidine (Famotidine 20 Mg Tab) 20 mg PO BID [facility] Stop: 10/06/21 08:59 Last Admin: 09/23/21 08:42 Dose: 20 mg Documented by: Ferrous Gluconate (Ferrous Gluconate 324 Mg Tab) 324 mg PO QAM [facility] Stop: 10/06/21 08:59 Last Admin: 09/23/21 08:43 Dose: 324 mg Documented by: Furosemide (Furosemide 40 Mg Tab) 40 mg PO BID@0600,1800 [facility] Stop: 10/21/21 20:59 Last Admin: 09/23/21 06:04 Dose: 40 mg Documented by: Gabapentin (Gabapentin 800 Mg Tab) 800 mg PO BID [facility] Stop: 10/06/21 08:59 Last Admin: 09/23/21 08:42 Dose: 800 mg Documented by: Glucagon (Glucagon For Inj 1 Mg Vial) 1 mg SQ UD PRN; Protocol PRN Reason: Hypoglycemia Protocol Stop: 10/06/21 04:13 Glucose (Glucose 10 Tabs/Tube) 4 - 8 tabs PO UD PRN; Protocol PRN Reason: Hypoglycemia Protocol Stop: 10/06/21 04:13 Glucose (Glucose 40% Gel 15 Gm Tube) 15 - 30 gm PO UD PRN; Protocol PRN Reason: Hypoglycemia Protocol Stop: 10/06/21 04:13 Heparin Sodium (Beef Lung) (Heparin 10 Unit/Ml 5 Ml Flush) 5 ml FLUSH PRN PRN PRN Reason: Flush Stop: 10/09/21 18:36 Last Admin: 09/23/21 00:56 Dose: 5 ml Documented by: Heparin Sodium (Porcine) (Heparin Sod 5,000 Unit/0.5 Ml Vial) 5,000 units SQ Q8 [facility] Stop: 10/11/21 21:59 Last Admin: 09/23/21 15:05 Dose: 5,000 units Documented by: Hyoscyamine (Hyoscyamine Sulfate 0.125 Mg Tab) 0.125 mg PO QPM [facility] Stop: 10/06/21 20:59 Last Admin: 09/22/21 20:28 Dose: 0.125 mg Documented by: Daptomycin 875 mg/ Syringe 17.5 mls @ 8.75 mls/min IV Q24H [facility]; Protocol Stop: 10/22/21 05:59 Last Admin: 09/23/21 06:04 Dose: 8.75 mls/min Documented by: Caspofungin 50 mg/ Sodium (Chloride) 260 mls @ 260 mls/hr IV DAILY [facility] Stop: 10/24/21 08:59 Last Infusion: 09/23/21 10:38 Dose: Infused Documented by: Ceftazidime/Avibactam 2.5 gm/ (Dextrose) 62 mls @ 31 mls/hr IV Q8H [facility]; Protocol Stop: 10/23/21 21:59 Last Admin: 09/23/21 15:05 Dose: 31 mls/hr Documented by: Insulin Aspart (Insulin Aspart Per Unit) 0 units SC ACHS [facility] Stop: 10/06/21 04:59 Last Admin: 09/23/21 12:50 Dose: 23 units Documented by: Insulin Human NPH (Insulin Human Nph) 0 units SC TODAY@1700 [facility]; Protocol Stop: 10/23/21 16:59 Irbesartan (Irbesartan 75 Mg Tab) 75 mg PO DAILY [facility] Stop: 10/06/21 08:59 Last Admin: 09/06/21 08:33 Dose: 75 mg Documented by: Lactobacillus Acidoph/Casei/Rhamnos (Advanced Probiotic 1250 Mg Capsule) 2 cap PO DAILY [facility] Stop: 10/06/21 08:59 Last Admin: 09/23/21 08:43 Dose: 2 cap Documented by: Magnesium Oxide (Magnesium Oxide 400 Mg Tab) 400 mg PO BID [facility] Stop: 10/06/21 08:59 Last Admin: 09/23/21 08:42 Dose: 400 mg Documented by: Miscellaneous (Carbohydrates For Hypoglycemia ) 15 - 30 gm PO UD PRN PRN Reason: Hypoglycemia Protocol Stop: 10/06/21 04:13 Miscellaneous Information (Daptomycin Consult Active) 1 ea N/A UD PRN PRN Reason: Consult Stop: 10/22/21 05:59 Miscellaneous Information (Pharmacy Glycemic Mgmt Consult) 1 ea N/A UD PRN PRN Reason: Consult Stop: 10/22/21 09:01 Miscellaneous Medication (Medical Marijuana) 1 dose INH UD PRN PRN Reason: Pain Stop: 10/06/21 04:44 Multivitamins (Multivitamin Tab) 1 tab PO QAM [facility] Stop: 10/06/21 08:59 Last Admin: 09/23/21 08:42 Dose: 1 tab Documented by: Pantoprazole Sodium (Pantoprazole 40 Mg Tab) 40 mg PO QAM [facility] Stop: 10/06/21 08:59 Last Admin: 09/23/21 08:44 Dose: 40 mg Documented by: Polyethylene Glycol (Polyethylene (Miralax) 17 Gm Pack) 17 gm PO Q8H PRN PRN Reason: Constipation Stop: 10/21/21 14:10 Last Admin: 09/21/21 21:42 Dose: 17 gm Documented by: Potassium Chloride (Potassium Chloride 10 Meq Tabcr) 10 meq PO BIDM [facility] Stop: 10/21/21 17:27 Last Admin: 09/23/21 08:42 Dose: 10 meq Documented by: Ropinirole HCl (Ropinirole Hcl 1 Mg Tablet) 1 mg PO QID@0000,0600,1200,1800 [facility] Stop: 10/21/21 17:59 Last Admin: 09/23/21 12:51 Dose: 1 mg Documented by: Sodium Hypochlorite (Dakin's Soln 0.125% Quarter Strength 1000 Ml Btl) 1 appln EXT DAILY [facility] Stop: 10/09/21 08:59 Last Admin: 09/23/21 08:46 Dose: Not Given Documented by: Spironolactone (Spironolactone 25 Mg Tab) 25 mg PO QAM [facility] Stop: 10/22/21 08:59 Last Admin: 09/23/21 08:44 Dose: 25 mg Documented by: Tizanidine HCl (Tizanidine Hcl 4 Mg Tablet) 4 mg PO BID [facility] Stop: 10/06/21 08:59 Last Admin: 09/23/21 08:42 Dose: 4 mg Documented by: Warfarin Sodium (Warfarin Sod 10 Mg Tab) 10 mg PO DAILY@1600 [facility] Stop: 10/21/21 15:59 Last Admin: 09/23/21 15:30 Dose: 10 mg Documented by: Zinc Sulfate (Zinc Sulfate 220 Mg Capsule) 220 mg PO QDL [facility] Stop: 10/22/21 11:29 Last Admin: 09/23/21 12:51 Dose: 220 mg Documented by: Zolpidem Tartrate (Zolpidem Tartrate 5 Mg Tab) 5 mg PO DAILY@2300 [facility] Stop: 10/19/21 19:59 Last Admin: 09/22/21 22:48 Dose: 5 mg Documented by:
[2021-09-23] MEDS ORDERED: INSULIN HUMAN NPH SC SCH (17:00)
[2021-09-23] MEDS: HYOSCYAMINE SULFATE 0.125 MG TAB PO SCH (21:40)
[2021-09-23] MEDS: CYCLOBENZAPRINE HCL 5 MG TAB PO SCH (21:42)
[2021-09-23] MEDS: ZOLPIDEM TARTRATE 5 MG TAB PO SCH (23:13)
[2021-09-24] MEDS: rOPINIRole HCL 1 MG TABLET PO SCH ×5 (00:42→23:53)
[2021-09-24] MEDS: DEXTROSE 5% IV SCH ×3 (06:17→21:44)
[2021-09-24] MEDS: CEFTAZIDIME AVIBACTAM IV SCH ×3 (06:17→21:44)
[2021-09-24] MEDS: DAPTOMYCIN IV SCH (06:17)
[2021-09-24] MEDS: HEPARIN SOD 5,000 UNIT/0.5 ML VIAL SQ SCH ×3 (06:18→21:43)
[2021-09-24] MEDS: FUROSEMIDE 40 MG TAB PO SCH ×2 (06:18→17:13)
[2021-09-24 06:26] LABS: Hematocrit (blood only) 29.9 % (42-52); Hemoglobin 9.2 g/dL (14.0-18.0); Mean Corpuscular Hemoglobin 28.4 pg (25-34); Mean Corpuscular Hgb Conc 30.8 g/dL (32-36); Mean Corpuscular Volume 92.3 fL (80-100); Mean Platelet Volume 8.8 fL (7.4-10.4); Platelet Count 247 K/uL (130-400); RDW Coefficient of Variation 18.8 % (11.5-14.5); RDW Standard Deviation 63.8 fL (36.4-46.3); Red Blood Count 3.24 M/uL (4.7-6.1)
[2021-09-24 06:34] LABS: INR 1.5 (0.9-1.1); Prothrombin Time 14.6 Seconds (9.0-12.0)
[2021-09-24 07:39] LABS: Albumin Globulin Ratio 0.8 (0.9-2); Albumin Level 3.2 gm/dl (3.4-5.0); BUN Creatinine Ratio 29.1 (10-20); Bilirubin,Total 0.4 mg/dl (0.2-1.0); C Reactive Protein 3.84 mg/dl (0-0.5); Calcium 9.6 mg/dl (8.5-10.1); Creatinine Clr Calc Pharmacy 115.6 ml/min; Est GFR (African American) 90.4 ml/min; Globulin 4.2 gm/dl (2.5-4.0); Potassium 3.7 mmol/L (3.5-5.1); Total Protein 7.4 gm/dl (6.0-8.3)
[2021-09-24] MEDS: INSULIN ASPART PER UNIT SC SCH ×4 (08:58→21:44)
[2021-09-24] MEDS: INSULIN HUMAN NPH SC SCH ×2 (08:59→17:15)
[2021-09-24] MEDS: GABAPENTIN 800 MG TAB PO SCH ×2 (09:00→21:41)
[2021-09-24] MEDS: FERROUS GLUCONATE 324 MG TAB PO SCH (09:00)
[2021-09-24] MEDS: FAMOTIDINE 20 MG TAB PO SCH ×2 (09:00→21:41)
[2021-09-24] MEDS: MULTIVITAMIN TAB PO SCH (09:01)
[2021-09-24] MEDS: allopurinoL 100 MG TAB PO SCH ×2 (09:01→21:42)
[2021-09-24] MEDS: MAGNESIUM OXIDE 400 MG TAB PO SCH ×2 (09:01→21:39)
[2021-09-24] MEDS: BACLOFEN 10 MG TAB PO SCH ×4 (09:01→21:43)
[2021-09-24] MEDS: ADVANCED PROBIOTIC 1250 MG CAPSULE PO SCH (09:01)
[2021-09-24] MEDS: POTASSIUM CHLORIDE 10 MEQ TABCR PO SCH ×2 (09:02→17:13)
[2021-09-24] MEDS: PANTOprazole 40 MG TAB PO SCH (09:02)
[2021-09-24] MEDS: ESCITALOPRAM OXALATE 20 MG TAB PO SCH (09:02)
[2021-09-24] MEDS: tiZANidine HCL 4 MG TABLET PO SCH ×2 (09:03→21:40)
[2021-09-24] MEDS: SPIRONOLACTONE 25 MG TAB PO SCH (09:03)
[2021-09-24] MEDS: DAKIN'S SOLN 0.125% QUARTER STRENGTH 473 ML BTL EXT SCH (09:03)
[2021-09-24] MEDS ORDERED: ONDANSETRON INJ 2 MG/ML 2 ML VIAL IV PRN (10:00)
[2021-09-24] MEDS: CASPOFUNGIN 50 MG in SODIUM CHLORIDE 0.9% 250 ML IV SCH (10:18)
[2021-09-24] MEDS: ZINC SULFATE 220 MG CAPSULE PO SCH (12:06)
--- NOTE | 2021-09-24 13:13 | Hospitalist Progress Note ---
Date of Service September 24, 2021 Assessment & Plan (1) Severe sepsis: Plan: Infected sacral wound causing severe sepsis on admission-resuscitated. Source control performed ~ 09/06/21-->Incision and Drainage and Debridement Sacral Tissue Down to Bone, 15cm x 11cm - Agusto Chaudhry DO Operative cultures sent: 09/06 buttock culture: E. Faecium VRE, Jocelyn albicans/dubliniensis, Pseudomonas: multidrug resistant, E.faecium sensitive to Dapto 09/06 sacrum wound culture: E Faecium VRE, Jocelyn albicans/dubliniensis ~ 09/08/21 ---> Revision I&D of the sacral decubitus ulcer by Agusto Weeks DO ~09/16/21 --> s/p Excisional Debridement of Sacral Ulcer down to Muscle Level 15cm x 11cm(Not Applicable) - Agusto Chaudhry DO He remains on IV antibiotics and antifungals per ID. Per surgery on wound VAC to see if we can get it to granulate-this is in place. Cont hospitalization pending insurance authorization of wound vac and home health setup vs SNF . (2) Sacral decubitus ulcer, stage IV: Plan: plan as above. Awaiting placement (3) Osteomyelitis: Plan: Per ID, Daptomycin, ceftazidime/Avibactam, caspofungin times total of 6 weeks Daptomycin started September 06, 2021 Ceftazidime/avibactam started September 11, 2021 Caspofungin started September 11, 2021 f/u with ID and outpatient wound care. PICC in place. During therapy, CK, CMP and CBC with differential weekly. Obtain CRP weekly until 2 months after stopping therapy. (4) Quadriplegia: Plan: Chronic, bedbound. Turn every 2, utilize therapy (Envella) bed. Requesting suprapubic catheter change-consulted Urology to perform. (5) DM type 2 (diabetes mellitus, type 2): Plan: Patient states that glargine does not work for him, glucose levels are slightly elevated around 200-240. Switched glargine to his home NPH at 50 units twice daily. Glucose numbers around goal, increase to home dose 55 Units BID. We will continue NovoLog sliding scale as needed. (6) Nocturnal hypoxia: Plan: Patient utilizes oxygen while sleeping (7) Neurogenic bladder: Plan: Chronic indwelling Martinez present (surapubic catheter (8) Morbid obesity: (9) Current use of mcc anticoagulation: Plan: Patient on Coumadin, INR therapeutic at admission, IVC filter placed 11 years ago per patient. Warfarin restarted as ok with surgery. Titrate for goal 2-3 (10) Anemia: Plan: Acute on chronic anemia, Likely from acute blood loss secondary to recent procedure and chronic comorbidities. He received 1 unit pRBC on 09/06 and another unit of PRBCs on 09/10. He also received 4 units of fresh frozen plasma on 09/06. H&H stable, no indication for transfusion at this time. Iron levels reveal iron deficiency, continue iron supplementation and outpatient followup. Hb up from yesterday. (11) DVT prophylaxis: Plan: Heparin/warfarin-continue with heparin for DVT prophylaxis while warfarin is building up in system, until INR greater than 2. Full code Disposition-pending wound vac authorization and placement. ROS-No Headache, No Visual Changes, mild intermittent nausea, No Vomiting, No Fever, No Chills, No Neck Pain or Stiffness, No Chest Pain, No Palpitations, No SOB, No ROSS, No Cough, No Sputum, No Wheezing, No Abdominal Pain, No Diarrhea, No Hematemesis, No Hemoptysis, No Unexpected Weight Loss, No Flank pain, No Melena, No Hematochezia, No Frequency, No Urgency, No Burning, No Hematuria, No Rashes, No Diaphoresis. Appetite is Normal Physical Exam Gen-AAO x 3, NAD, Afebrile, obese, quadriplegic, with colostomy Head-NCAT, EOMI, PERRLA, Anicteric Sclera, No Posterior Pharyngeal Erythema Neck-Supple, No JVD, No Thyromegaly, No Masses, No LAD, No Bruits Lungs-Clear to Auscultation Bilaterally, No Rales, No Rhonchi, No Wheezing, No Crepitus Chest-No S4, +S1, +S2, No S3, No Murmurs, No Rubs, No Gallops, No Ectopy Abdomen-Soft, Bowel Sounds Present, Non Tender, Non Distended, No Hepatomegaly, No Splenomegaly, No Palpable Masses, No Rebound, No Rigidity, No Guarding, positive colostomy on left side Musculoskeletal-Full Range of Motion Bilaterally, No CVAT Extremities-No Cyanosis, No Clubbing, No Edema Skin-Stage 4 decub R Buttock Nuero-+quad Psych-Normal Mood Admission and Anticipated Discharge Date Admission Date: September 06, 2021 Subjective 60-year-old man with morbid obesity who is bedbound admitted for osteomyelitis of sacral decubitus ulcer that is chronic. Status post repeat wound debridement by Dr. Chaudhry on 09/15/2021. Patient states he is doing well overall tolerating p.o. and denies fevers or chills. Notes occasional nausea doing well overall Results & Data Results & Data ([facility]) Vital Signs (Past 12 Hours) Vital Signs Temp Pulse Resp BP Pulse Ox 09/24/21 11:36 36.5 C 91 H 20 107/62 95 09/24/21 06:52 36.5 C 69 20 103/66 98
--- NOTE | 2021-09-24 14:38 | Urology Consultation ---
Date of Consultation September 24, 2021 Assessment & Plan (1) Neurogenic bladder: (2) Chronic suprapubic catheter: 60-year-old male with a history of paraplegia and resultant neurogenic bladder managed with an SP tube who was admitted with decubitus ulcer and osteomyelitis. - Urology was consulted for suprapubic catheter exchange. - Patient examined with Dr. Barrera. - Afebrile, Labs reviewed - white count 10.70, creatinine stable. - Suprapubic catheter exchanged at bedside today without difficulty, pt tolerated well. - Urology will sign off at this time. - Will arrange outpatient follow-up with our service for continued care. Please contact us with any additional questions/concerns or changes in patient status. Supervising Physician Co-Signing Physician Notes I have seen and discussed Mr. Rodriguez's case with SHERMAN Vega and agree with the above documentation. SP tube was exchanged without difficult. He should have this exchanged approximately every 4 weeks, or earlier if it becomes clogged. 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 difficile, chronic asymptomatic bacteriuria, DVT on Coumadin, CVA, DM2, DLD, HTN, osteomyelitis, seizuresadmitted with decubitus ulcer and osteomyelitis. Urology consulted for suprapubic catheter exchange. Last exchanged on 08/28 per hospital team. Pt requesting SP tube exchange while inpatient. Chart review: Afebrile Wbc 10.70 Hgb 9.2 Cr 1.03 Urine culture from 09/06/21 - Yeast not Jocelyn albicans/dub He remains on IV antibiotics and antifungals per ID. Pt examined at bedside this afternoon. Awake, resting in bed on arrival. Reports he is doing well overall. He denies any issues with his SP tube at present. It is currently draining clear yellow urine without issue. He reports the last exchange was during his hospitalization at [facility] around 08/28. He is due this week for an exchange. Pt offered no additional complaints at time of exam. Allergies Allergy/AdvReac Type Severity Reaction Status Date / Time codeine Allergy Severe THROAT Verified 09/08/21 08:34 SWELLS latex Allergy Intermediate welts Verified 09/08/21 08:34 piperacillin Allergy Intermediate RASH Verified 09/08/21 08:34 Sulfa (Sulfonamide Allergy Intermediate HIVES Verified 09/08/21 08:34 Antibiotics) tazobactam Allergy Intermediate RASH Verified 09/08/21 08:34 aztreonam Allergy Unknown unknown Verified 09/08/21 08:34 metoclopramide [From Reglan] AdvReac Mild lethargy Verified 09/08/21 08:34 Home Medications Medication Instructions Recorded Confirmed Type allopurinol 100 mg tablet 100 mg PO BID 05/07/18 09/05/21 History ferrous gluconate 324 mg (38 mg 324 mg PO QAM 05/07/18 09/05/21 History iron) tablet furosemide 40 mg tablet 40 mg PO BID 05/07/18 09/05/21 History gabapentin 800 mg tablet 800 mg PO BID 05/07/18 09/05/21 History magnesium oxide 400 mg (241.3 mg 400 mg PO BID 05/07/18 09/05/21 History magnesium) tablet multivitamin 1 tab PO QAM 05/07/18 09/05/21 History pantoprazole 40 mg tablet,delayed 40 mg PO QAM 05/07/18 09/05/21 History release ropinirole 1 mg tablet 1 mg PO QID 05/07/18 09/05/21 History escitalopram oxalate 20 mg tablet 20 mg PO QAM tab 08/21/19 09/05/21 History insulin human U-100 NPH-regulr 56 unit SUBCUT BID 08/21/19 09/05/21 History 70-30 mix 100 unit/mL subcutaneous susp (Novolin 70/30 U-100 Insulin) warfarin 5 mg tablet 5 mg PO 3XWK tab 08/21/19 09/05/21 History atorvastatin 40 mg tablet 40 mg PO HS 08/24/19 09/05/21 History baclofen 10 mg tablet 10 mg PO QID 09/22/19 09/05/21 History cyclobenzaprine 10 mg tablet 15 mg PO HS 03/01/20 09/05/21 History hyoscyamine sulfate 0.125 mg tablet 0.125 mg PO QPM 03/01/20 09/05/21 History potassium chloride 10 mEq 10 meq PO BIDM 03/01/20 09/05/21 History tablet,extended release spironolactone 25 mg tablet 25 mg PO QAM 03/01/20 09/05/21 History (Aldactone) tizanidine 4 mg tablet 4 mg PO BID 03/01/20 09/05/21 History Medical Marijuana See Rx Instructions .ROUTE .COMPLEX 03/26/20 09/05/21 History methenamine hippurate 1 gram tablet 1 g PO BID 30 Days #60 tab 04/02/20 09/05/21 Rx ascorbic acid (vitamin C) 500 mg 250 mg PO TID 12/03/20 09/05/21 History tablet (Vitamin C) famotidine 20 mg tablet (Acid 20 mg PO BID 12/03/20 09/05/21 History Correspondence Analyst (famotidine)) zinc sulfate 50 mg zinc (220 mg) 50 mg PO QDL 12/03/20 09/05/21 History capsule Lactobacillus acidoph-L.bulgaricus 1 tab PO BID 01/03/21 09/05/21 History 1 million cell tablet (Floranex) acetaminophen 500 mg capsule 1,000 mg PO Q6H PRN 01/03/21 09/05/21 History bethanechol chloride 5 mg tablet 5 mg PO TID 01/03/21 09/05/21 History insulin regular human 100 unit/mL 1 sliding scale dose SUBCUT 01/03/21 09/05/21 History injection solution (Novolin R USEASDIRECTD Regular U-100 Insulin) mecobalamin-levomefolate 1 tab PO BID 01/03/21 09/05/21 History calcium-pyridoxal phos 3 mg-35 mg-2 mg tablet ([id number]) menthol 0.44 %-zinc oxide 20.6 % 1 applic TOPICAL QID PRN 01/03/21 09/05/21 History topical ointment (Calmoseptine) methenamin 81.6 mg-hyoscyam 0.12 1 tab PO QPM 01/03/21 09/05/21 History mg-methblue 10.8 ok-yp-cjarvsv tablet nystatin 100,000 unit/gram topical 1 applic TOPICAL BID PRN 01/03/21 09/05/21 History powder nystatin-triamcinolone 100,000 1 applic TOPICAL BID 01/03/21 09/05/21 History unit/g-0.1 % topical cream triamcinolone acetonide 0.1 % 1 applic TOPICAL BID PRN 01/03/21 09/05/21 History topical cream irbesartan 75 mg tablet 75 mg PO DAILY 06/02/21 09/05/21 History warfarin 7.5 mg tablet 7.5 mg PO 4XWK 06/02/21 09/05/21 History metformin 1,000 mg tablet 1,000 mg PO BIDM 06/14/21 09/05/21 History cefdinir 300 mg capsule 300 mg PO BID 06/23/21 09/05/21 History Patient History Medical History Anemia Asymptomatic bacteriuria Clostridium difficile infection (Unknown) CVA (cerebral vascular accident) DM type 2 (diabetes mellitus, type 2) Dyslipidemia Dysphagia Fever History of blood clots History of DVT (deep vein thrombosis) Hypertension Hypotension Ileus Kidney disease Leukocytosis Major depressive disorder, recurrent Obesity Occluded PICC line Positive urine culture Quadriplegia BRAIN INJURY 11 YRS AGO Seizure SIRS (systemic inflammatory response syndrome) Sleep apnea (Unknown) OXYGEN 2L/MIN NC HS Syncope 57 year old with know quadriplegia and new onset syncope with change in position UTI (urinary tract infection) RECENT [facility] ADMISION-D/C 12/06/20 Surgical History History of colonoscopy 2010 History of open reduction and internal fixation (ORIF) procedure LEFT FEMUR Insertion of inferior vena caval filter (Unknown) Lithotripsy (Unknown) "laser lithotripsy left ureteral stone 03/17/11 " S/P debridement (09/06/21) Incision and Drainage and Debridement Sacral Tissue Down to Bone, 15cm x 11cm - Agusto Chaudhry, DO 09/06/21 S/P debridement (09/08/21) Excisional Debridement of Sacral Decubitus Ulcer, [id number] Down to Bone - Agusto Chaudhry, DO 09/08/2021. Patient made ASA 4. Ketamine/versed/fentanyl sedation. Tolerated without incident. S/P debridement S/P knee surgery S/P tonsillectomy Suprapubic cystostomy (Unknown) IN PLACE Family History Mother No pertinent family history Family history of diabetes mellitus Father Family hx of colon cancer Social History Smoking Status: Unknown if ever smoked Second Hand Exposure: No; Hx Alcohol Use: No Hx Substance Use: No Preferred Language: Wallisian Communication Ability: Effective Visual Impairment: No Limitations Control Room Operator Required: No Beliefs That Will Affect Care: None marital status: Current Living Situation: Spouse Current Living Situation Comment: lives at home with and 2 dogs. No kids at home. current occupational status: disabled Feels Safe at Home: Yes Physical Activity Frequency Comment: QUADRAPLEGIA C4-5-ABLE TO MOVE ARMS, HANDS Assistive Devices: Glasses and Oxygen - at Night Review of Systems Review of Systems: All systems reviewed & are unremarkable except as noted in HPI & below Physical Exam Constitutional: well developed, well nourished and + obese; no acute distress Respiratory: normal respiratory effort; no labored breathing and no audible wheezes Gastrointestinal (Abdomen): Inspection/Auscultation: abdomen normal to inspection Musculoskeletal: Head/Neck/Chest: normocephalic Skin: No visible rashes or lesions to exposed skin areas Neurologic: awake Psychiatric: Orientation: alert, oriented x 3 and cooperative Genitourinary: Suprapubic catheter intact, draining clear yellow urine. No redness or drainage noted around site. Results & Data ([facility]) Vital Signs (Past 12 Hours) Vital Signs Temp Pulse Resp BP Pulse Ox 09/24/21 11:36 36.5 C 91 H 20 107/62 95 09/24/21 06:52 36.5 C 69 20 103/66 98 PG Care Time/CCT Total # of Minutes Spent Total Time Spent with Patient: Total time spent is greater than 50% in coordination of care (as documented) at patient's floor/unit and/or counseling patient: Coding Level of Care Code 53591 Inpt Consult Level 3 Diagnoses Neurogenic bladder N31.9 Chronic suprapubic catheter Z93.59
[2021-09-24] MEDS: WARFARIN SOD 10 MG TAB PO SCH (17:11)
[2021-09-24] MEDS: HYOSCYAMINE SULFATE 0.125 MG TAB PO SCH (21:41)
[2021-09-24] MEDS: CYCLOBENZAPRINE HCL 5 MG TAB PO SCH (21:42)
[2021-09-24] MEDS: ZOLPIDEM TARTRATE 5 MG TAB PO SCH (23:53)
[2021-09-25] MEDS: DAPTOMYCIN IV SCH (05:42)
[2021-09-25] MEDS: DEXTROSE 5% IV SCH ×3 (05:42→22:15)
[2021-09-25] MEDS: CEFTAZIDIME AVIBACTAM IV SCH ×3 (05:42→22:15)
[2021-09-25] MEDS: rOPINIRole HCL 1 MG TABLET PO SCH ×4 (05:47→23:40)
[2021-09-25] MEDS: FUROSEMIDE 40 MG TAB PO SCH ×2 (05:47→17:45)
[2021-09-25] MEDS: HEPARIN SOD 5,000 UNIT/0.5 ML VIAL SQ SCH ×3 (05:48→22:17)
[2021-09-25 06:17] LABS: Hematocrit (blood only) 29.8 % (42-52); Hemoglobin 9.2 g/dL (14.0-18.0); Mean Corpuscular Hemoglobin 28.8 pg (25-34); Mean Corpuscular Hgb Conc 30.9 g/dL (32-36); Mean Corpuscular Volume 93.1 fL (80-100); Platelet Count 251 K/uL (130-400); RDW Coefficient of Variation 18.9 % (11.5-14.5); RDW Standard Deviation 64.7 fL (36.4-46.3); White Blood Count 11.17 K/uL (4.8-10.8)
[2021-09-25 06:35] LABS: INR 1.7 (0.9-1.1); Prothrombin Time 16.5 Seconds (9.0-12.0)
[2021-09-25 07:08] LABS: Albumin Globulin Ratio 0.7 (0.9-2); Albumin Level 3.2 gm/dl (3.4-5.0); BUN Creatinine Ratio 32.7 (10-20); Bilirubin,Total 0.3 mg/dl (0.2-1.0); Calcium 9.3 mg/dl (8.5-10.1); Creatinine Clr Calc Pharmacy 111.3 ml/min; Est GFR (African American) 86.4 ml/min; Est GFR (Non-African American) 74.5 ml/min; Globulin 4.3 gm/dl (2.5-4.0); Total Protein 7.5 gm/dl (6.0-8.3)
[2021-09-25] MEDS: POTASSIUM CHLORIDE 10 MEQ TABCR PO SCH ×2 (07:56→17:40)
[2021-09-25] MEDS: MULTIVITAMIN TAB PO SCH (07:56)
[2021-09-25] MEDS: MAGNESIUM OXIDE 400 MG TAB PO SCH ×2 (07:57→20:18)
[2021-09-25] MEDS: ADVANCED PROBIOTIC 1250 MG CAPSULE PO SCH (07:57)
[2021-09-25] MEDS: BACLOFEN 10 MG TAB PO SCH ×4 (07:58→20:16)
[2021-09-25] MEDS: FAMOTIDINE 20 MG TAB PO SCH ×2 (07:58→20:17)
[2021-09-25] MEDS: GABAPENTIN 800 MG TAB PO SCH ×2 (07:58→20:17)
[2021-09-25] MEDS: FERROUS GLUCONATE 324 MG TAB PO SCH (07:59)
[2021-09-25] MEDS: SPIRONOLACTONE 25 MG TAB PO SCH (07:59)
[2021-09-25] MEDS: ESCITALOPRAM OXALATE 20 MG TAB PO SCH (07:59)
[2021-09-25] MEDS: PANTOprazole 40 MG TAB PO SCH (08:00)
[2021-09-25] MEDS: tiZANidine HCL 4 MG TABLET PO SCH ×2 (08:00→20:16)
[2021-09-25] MEDS: allopurinoL 100 MG TAB PO SCH ×2 (08:01→20:16)
[2021-09-25] MEDS: INSULIN ASPART PER UNIT SC SCH ×4 (08:03→21:49)
[2021-09-25] MEDS: INSULIN HUMAN NPH SC SCH ×2 (08:05→17:37)
[2021-09-25] MEDS ORDERED: INSULIN HUMAN NPH SC ONE (08:15)
[2021-09-25] MEDS: CASPOFUNGIN 50 MG in SODIUM CHLORIDE 0.9% 250 ML IV SCH (08:15)
--- NOTE | 2021-09-25 09:09 | Pharmacy Report ---
Pharmacy Glycemic Short Note 2 - Date of Service September 25, 2021 - Glycemic Short BSG Results (Last 24 hours): 09/24/21 09/24/21 09/24/21 11:26 16:40 21:18 Glucose POC Glucose 232 H 202 H 261 H 09/25/21 09/25/21 05:37 07:34 Glucose 149 H POC Glucose 196 H OUTPATIENT ANTIDIABETIC REGIMEN: * Novolin 70/30 insulin 56 units SC BIDM * Novolin R via sliding scale * Metformin 1 g PO BIDM * HbA1c: 7.2% (09/23/21) ASSESSMENT: 09/25 * BSGs elevated yesterday, ranging 188-261 mg/dL * Received 213 units of insulin (110 units of NPH and 103 units of prandial/correctional Novolog) * Continues on broad spectrum antibiotics * Fasting BSG of 196 mg/dL this morning * Will tighten Novolog parameters and increase NPH today 09/23 * BSGs slightly improved yesterday, 233, 252, 175, and 204 mg/dL * Received 179 units of insulin (95 units of NPH and 84 units of prandial/correctional Novolog) * Continues on broad spectrum antibiotics (Avycaz, daptomycin, and caspofungin) * Fasting BSG improved at 178 mg/dL this morning 09/22 * BRANDON is a 60 year old male admitted on 09/06/21 with severe sepsis secondary to infected sacral wounds/osteomyelitis * Pharmacy consulted today for glycemic management given persistent glucose elevations and patient preference for NPH insulin * Prior to consult, patient was receiving 70/30 insulin with Novolog (with correction factor and carb ratio) * Will switch to NPH insulin BID and tighten Novolog parameters to more easily titrate doses * Yesterday patient received ~137 units of insulin (74 units of basal and 63 units of bolus) * BSGs yesterday of 207, 267, 180, and 290 mg/dL * Will tighten Novolog parameters considerably today (especially in light of removing bolus component of 70/30) * Fasting BSG of 233 mg/dL this morning - will plan to increase basal component * AM insulin given after 10 AM, won't overreact to elevated BSG at lunchtime PLAN FOR INPATIENT GLYCEMIC CONTROL: * Hold outpatient oral diabetes medications * Basal insulin - increase * NPH 65 units SC with breakfast * NPH scale 45-65 units SC with dinner (see EHR for details) * Bolus insulin - continue * NovoLog per scale ACHS or Q6hrs while NPO * Goal Range: Low 110 mg/dL - High 140 mg/dL * Correction Factor: 8 mg/dL/unit * Nutritional / Prandial insulin per carb ratio of 1 unit per 2 grams CHO consumed PLAN FOR DISCHARGE: * HbA1c of 7.2% is reasonable for patient * Reasonable to current outpatient regimen at discharge * Reinforce importance of controlling blood sugars for wound healing
--- NOTE | 2021-09-25 10:31 | Hospitalist Progress Note ---
Date of Service September 25, 2021 Assessment & Plan (1) Severe sepsis: Plan: Infected sacral wound causing severe sepsis on admission-resuscitated. Source control performed ~ 09/06/21-->Incision and Drainage and Debridement Sacral Tissue Down to Bone, 15cm x 11cm - Agusto Chaudhry DO Operative cultures sent: 09/06 buttock culture: E. Faecium VRE, Jocelyn albicans/dubliniensis, Pseudomonas: multidrug resistant, E.faecium sensitive to Dapto 09/06 sacrum wound culture: E Faecium VRE, Jocelyn albicans/dubliniensis ~ 09/08/21 ---> Revision I&D of the sacral decubitus ulcer by Agusto Weeks DO ~09/16/21 --> s/p Excisional Debridement of Sacral Ulcer down to Muscle Level 15cm x 11cm(Not Applicable) - Agusto Chaudhry DO He remains on IV antibiotics and antifungals per ID. Per surgery on wound VAC to see if we can get it to granulate-this is in place. Cont hospitalization pending insurance authorization of wound vac wants [facility]. DC when auth comes through (2) Sacral decubitus ulcer, stage IV: Plan: plan as above. Awaiting placement (3) Osteomyelitis: Plan: Per ID, Daptomycin, ceftazidime/Avibactam, caspofungin times total of 6 weeks Daptomycin started September 06, 2021 Ceftazidime/avibactam started September 11, 2021 Caspofungin started September 11, 2021 f/u with ID and outpatient wound care. PICC in place. During therapy, CK, CMP and CBC with differential weekly. Obtain CRP weekly until 2 months after stopping therapy. (4) Quadriplegia: Plan: Chronic, bedbound. Turn every 2, utilize therapy (Envella) bed. Requesting suprapubic catheter change-consulted Urology to perform. (5) DM type 2 (diabetes mellitus, type 2): Plan: Patient states that glargine does not work for him, glucose levels are slightly elevated around 200-240. Switched glargine to his home NPH at 50 units twice daily. Glucose numbers around goal, increase to home dose 55 Units BID. We will continue NovoLog sliding scale as needed. (6) Nocturnal hypoxia: Plan: Patient utilizes oxygen while sleeping (7) Neurogenic bladder: Plan: Chronic indwelling Martinez present (surapubic catheter (8) Morbid obesity: (9) Current use of care home anticoagulation: Plan: Patient on Coumadin, INR therapeutic at admission, IVC filter placed 11 years ago per patient. Warfarin restarted as ok with surgery. Titrate for goal 2-3 (10) Anemia: Plan: Acute on chronic anemia, Likely from acute blood loss secondary to recent procedure and chronic comorbidities. He received 1 unit pRBC on 09/06 and another unit of PRBCs on 09/10. He also received 4 units of fresh frozen plasma on 09/06. H&H stable, no indication for transfusion at this time. Iron levels reveal iron deficiency, continue iron supplementation and outpatient followup. Hb up from yesterday. (11) DVT prophylaxis: Plan: Heparin/warfarin-continue with heparin for DVT prophylaxis while warfarin is building up in system, until INR greater than 2. Full code Disposition-pending wound vac authorization and placement. ROS-No Headache, No Visual Changes, mild intermittent nausea, No Vomiting, No Fever, No Chills, No Neck Pain or Stiffness, No Chest Pain, No Palpitations, No SOB, No ROSS, No Cough, No Sputum, No Wheezing, No Abdominal Pain, No Diarrhea, No Hematemesis, No Hemoptysis, No Unexpected Weight Loss, No Flank pain, No Melena, No Hematochezia, No Frequency, No Urgency, No Burning, No Hematuria, No Rashes, No Diaphoresis. Appetite is Normal Physical Exam Gen-AAO x 3, NAD, Afebrile, obese, quadriplegic, with colostomy Head-NCAT, EOMI, PERRLA, Anicteric Sclera, No Posterior Pharyngeal Erythema Neck-Supple, No JVD, No Thyromegaly, No Masses, No LAD, No Bruits Lungs-Clear to Auscultation Bilaterally, No Rales, No Rhonchi, No Wheezing, No Crepitus Chest-No S4, +S1, +S2, No S3, No Murmurs, No Rubs, No Gallops, No Ectopy Abdomen-Soft, Bowel Sounds Present, Non Tender, Non Distended, No Hepatomegaly, No Splenomegaly, No Palpable Masses, No Rebound, No Rigidity, No Guarding, positive colostomy on left side Musculoskeletal-Full Range of Motion Bilaterally, No CVAT Extremities-No Cyanosis, No Clubbing, No Edema Skin-Stage 4 decub R Buttock Nuero-+quad Psych-Normal Mood Admission and Anticipated Discharge Date Admission Date: September 06, 2021 Subjective 60-year-old man with morbid obesity who is bedbound admitted for osteomyelitis of sacral decubitus ulcer that is chronic. Status post repeat wound debridement by Dr. Chaudhry on 09/15/2021. Patient states he is doing well overall, tolerating p.o. and denies fevers or chills. No new issues Results & Data Results & Data ([facility]) Vital Signs (Past 12 Hours) Vital Signs Temp Pulse Resp BP Pulse Ox 09/25/21 07:00 36.3 C L 81 22 94/57 L 99 09/24/21 22:57 36.5 C 80 20 124/72 99
[2021-09-25] MEDS: DAKIN'S SOLN 0.125% QUARTER STRENGTH 473 ML BTL EXT SCH (10:51)
[2021-09-25] MEDS: ZINC SULFATE 220 MG CAPSULE PO SCH (12:37)
[2021-09-25] MEDS ORDERED: NYSTATIN POWDER 15GM BTL EXT PRN (14:23)
[2021-09-25] MEDS: WARFARIN SOD 10 MG TAB PO SCH (17:44)
[2021-09-25] MEDS: CYCLOBENZAPRINE HCL 5 MG TAB PO SCH (20:16)
[2021-09-25] MEDS: HYOSCYAMINE SULFATE 0.125 MG TAB PO SCH (20:16)
[2021-09-25] MEDS: ACETAMINOPHEN 325 MG TAB PO PRN (22:15)
[2021-09-25] MEDS: ZOLPIDEM TARTRATE 5 MG TAB PO SCH (23:40)
[2021-09-25] MEDS: POLYETHYLENE (MIRALAX) 17 GM PACK PO PRN (23:45)
[2021-09-26] MEDS: CEFTAZIDIME AVIBACTAM IV SCH ×3 (05:58→21:50)
[2021-09-26] MEDS: DAPTOMYCIN IV SCH (05:58)
[2021-09-26] MEDS: DEXTROSE 5% IV SCH ×3 (05:58→21:50)
[2021-09-26] MEDS: HEPARIN SOD 5,000 UNIT/0.5 ML VIAL SQ SCH ×3 (06:00→21:50)
[2021-09-26] MEDS: FUROSEMIDE 40 MG TAB PO SCH ×2 (06:00→17:43)
[2021-09-26] MEDS: rOPINIRole HCL 1 MG TABLET PO SCH ×4 (06:00→23:51)
[2021-09-26] MEDS ORDERED: INSULIN HUMAN NPH SC SCH (08:00)
[2021-09-26] MEDS: INSULIN ASPART PER UNIT SC SCH ×4 (08:59→22:04)
[2021-09-26] MEDS: MAGNESIUM OXIDE 400 MG TAB PO SCH ×2 (09:01→21:49)
[2021-09-26] MEDS: BACLOFEN 10 MG TAB PO SCH ×4 (09:01→21:45)
[2021-09-26] MEDS: FAMOTIDINE 20 MG TAB PO SCH ×2 (09:01→21:48)
[2021-09-26] MEDS: MULTIVITAMIN TAB PO SCH (09:02)
[2021-09-26] MEDS: PANTOprazole 40 MG TAB PO SCH (09:02)
[2021-09-26] MEDS: ADVANCED PROBIOTIC 1250 MG CAPSULE PO SCH (09:02)
[2021-09-26] MEDS: FERROUS GLUCONATE 324 MG TAB PO SCH (09:02)
[2021-09-26] MEDS: GABAPENTIN 800 MG TAB PO SCH ×2 (09:03→21:49)
[2021-09-26] MEDS: ESCITALOPRAM OXALATE 20 MG TAB PO SCH (09:03)
[2021-09-26] MEDS: POTASSIUM CHLORIDE 10 MEQ TABCR PO SCH ×2 (09:04→17:42)
[2021-09-26] MEDS: SPIRONOLACTONE 25 MG TAB PO SCH (09:04)
[2021-09-26] MEDS: allopurinoL 100 MG TAB PO SCH ×2 (09:04→21:48)
[2021-09-26] MEDS: tiZANidine HCL 4 MG TABLET PO SCH ×2 (09:04→21:49)
[2021-09-26] MEDS: CASPOFUNGIN 50 MG in SODIUM CHLORIDE 0.9% 250 ML IV SCH (09:14)
--- NOTE | 2021-09-26 10:59 | Hospitalist Progress Note ---
Date of Service September 26, 2021 Assessment & Plan (1) Severe sepsis: Plan: Infected sacral wound causing severe sepsis on admission-resuscitated. Source control performed ~ 09/06/21-->Incision and Drainage and Debridement Sacral Tissue Down to Bone, 15cm x 11cm - Agusto Chaudhry DO Operative cultures sent: 09/06 buttock culture: E. Faecium VRE, Jocelyn albicans/dubliniensis, Pseudomonas: multidrug resistant, E.faecium sensitive to Dapto 09/06 sacrum wound culture: E Faecium VRE, Jocelyn albicans/dubliniensis ~ 09/08/21 ---> Revision I&D of the sacral decubitus ulcer by Agusto Weeks DO ~09/16/21 --> s/p Excisional Debridement of Sacral Ulcer down to Muscle Level 15cm x 11cm(Not Applicable) - Agusto Chaudhry DO He remains on IV antibiotics and antifungals per ID. Per surgery on wound VAC to see if we can get it to granulate-this is in place. Cont hospitalization pending insurance authorization of wound vac wants [facility]. DC when auth comes through (2) Sacral decubitus ulcer, stage IV: Plan: plan as above. Awaiting placement (3) Osteomyelitis: Plan: Per ID, Daptomycin, ceftazidime/Avibactam, caspofungin times total of 6 weeks Daptomycin started September 06, 2021 Ceftazidime/avibactam started September 11, 2021 Caspofungin started September 11, 2021 f/u with ID and outpatient wound care. PICC in place. During therapy, CK, CMP and CBC with differential weekly. Obtain CRP weekly until 2 months after stopping therapy. (4) Quadriplegia: Plan: Chronic, bedbound. Turn every 2, utilize therapy (Envella) bed. (5) DM type 2 (diabetes mellitus, type 2): Plan: NPH at 50 units twice daily. Glucose numbers around goal, increase to home dose 55 Units BID. We will continue NovoLog sliding scale as needed. (6) Nocturnal hypoxia: Plan: Patient utilizes oxygen while sleeping (7) Neurogenic bladder: Plan: Chronic indwelling Martinez present (surapubic catheter (8) Morbid obesity: (9) Current use of manager intermediate anticoagulation: Plan: Patient on Coumadin, INR therapeutic at admission, IVC filter placed 11 years ago per patient. Warfarin restarted as ok with surgery. Titrate for goal 2-3 (10) Anemia: Plan: Acute on chronic anemia, Likely from acute blood loss secondary to recent procedure and chronic comorbidities. He received 1 unit pRBC on 09/06 and another unit of PRBCs on 09/10. He also received 4 units of fresh frozen plasma on 09/06. H&H stable, no indication for transfusion at this time. Iron levels reveal iron deficiency, continue iron supplementation and outpatient followup. Hb up from yesterday. (11) DVT prophylaxis: Plan: Heparin/warfarin-continue with heparin for DVT prophylaxis while warfarin is building up in system, until INR greater than 2. Full code Disposition-pending wound vac authorization and placement. ROS-No Headache, No Visual Changes, mild intermittent nausea, No Vomiting, No Fever, No Chills, No Neck Pain or Stiffness, No Chest Pain, No Palpitations, No SOB, No ROSS, No Cough, No Sputum, No Wheezing, No Abdominal Pain, No Diarrhea, No Hematemesis, No Hemoptysis, No Unexpected Weight Loss, No Flank pain, No Melena, No Hematochezia, No Frequency, No Urgency, No Burning, No Hematuria, No Rashes, No Diaphoresis. Appetite is Normal Physical Exam Gen-AAO x 3, NAD, Afebrile, obese, quadriplegic, with colostomy Head-NCAT, EOMI, PERRLA, Anicteric Sclera, No Posterior Pharyngeal Erythema Neck-Supple, No JVD, No Thyromegaly, No Masses, No LAD, No Bruits Lungs-Clear to Auscultation Bilaterally, No Rales, No Rhonchi, No Wheezing, No Crepitus Chest-No S4, +S1, +S2, No S3, No Murmurs, No Rubs, No Gallops, No Ectopy Abdomen-Soft, Bowel Sounds Present, Non Tender, Non Distended, No Hepatomegaly, No Splenomegaly, No Palpable Masses, No Rebound, No Rigidity, No Guarding, positive colostomy on left side Musculoskeletal-Full Range of Motion Bilaterally, No CVAT Extremities-No Cyanosis, No Clubbing, No Edema Skin-Stage 4 decub R Buttock Nuero-+quad Psych-Normal Mood Admission and Anticipated Discharge Date Admission Date: September 06, 2021 Subjective 60-year-old man with morbid obesity who is bedbound admitted for osteomyelitis of sacral decubitus ulcer that is chronic. Status post repeat wound debridement by Dr. Chaudhry on 09/15/2021. Tolerating p.o. No new issues Results & Data Results & Data ([facility]) Vital Signs (Past 12 Hours) Vital Signs Temp Pulse Resp BP Pulse Ox 09/26/21 08:54 36.6 C 81 20 113/65 95
[2021-09-26] MEDS: DAKIN'S SOLN 0.125% QUARTER STRENGTH 473 ML BTL EXT SCH (12:04)
[2021-09-26] MEDS: ZINC SULFATE 220 MG CAPSULE PO SCH (12:52)
--- NOTE | 2021-09-26 13:20 | Pharmacy Report ---
Pharmacy Glycemic Short Note 2 - Date of Service September 26, 2021 - Glycemic Short BSG Results (Last 24 hours): 09/25/21 09/25/21 09/26/21 16:43 20:10 07:41 POC Glucose 163 H 201 H 160 H 09/26/21 12:16 POC Glucose 195 H OUTPATIENT ANTIDIABETIC REGIMEN: * Novolin 70/30 insulin 56 units SC BIDM * Novolin R via sliding scale * Metformin 1 g PO BIDM * HbA1c: 7.2% (09/23/21) ASSESSMENT: 09/26 * BSGs yesterday ranging 163-201 mg/dL * Received 225 units of insulin (120 units of NPH and 105 units of prandial/correctional Novolog) * Fasting BSG improved, but still above target - will increase NPH further today * If BSGs remain elevated today, tighten carb coverage tomorrow * Plan is for likely d/c to [facility] today or this weekend 09/25 * BSGs elevated yesterday, ranging 188-261 mg/dL * Received 213 units of insulin (110 units of NPH and 103 units of prandial/correctional Novolog) * Continues on broad spectrum antibiotics * Fasting BSG of 196 mg/dL this morning * Will tighten Novolog parameters and increase NPH today 09/22 * BRANDON is a 60 year old male admitted on 09/06/21 with severe sepsis secondary to infected sacral wounds/osteomyelitis * Pharmacy consulted today for glycemic management given persistent glucose elevations and patient preference for NPH insulin * Prior to consult, patient was receiving 70/30 insulin with Novolog (with correction factor and carb ratio) * Will switch to NPH insulin BID and tighten Novolog parameters to more easily titrate doses * Yesterday patient received ~137 units of insulin (74 units of basal and 63 units of bolus) * BSGs yesterday of 207, 267, 180, and 290 mg/dL * Will tighten Novolog parameters considerably today (especially in light of removing bolus component of 70/30) * Fasting BSG of 233 mg/dL this morning - will plan to increase basal component * AM insulin given after 10 AM, won't overreact to elevated BSG at lunchtime PLAN FOR INPATIENT GLYCEMIC CONTROL: * Hold outpatient oral diabetes medications * Basal insulin - increase * NPH 65 units SC BIDM * Bolus insulin - continue * NovoLog per scale ACHS or Q6hrs while NPO * Goal Range: Low 110 mg/dL - High 140 mg/dL * Correction Factor: 8 mg/dL/unit * Nutritional / Prandial insulin per carb ratio of 1 unit per 2 grams CHO consumed PLAN FOR DISCHARGE: * HbA1c of 7.2% is reasonable for patient * Reasonable to continue current outpatient regimen at discharge * Reinforce importance of controlling blood sugars for wound healing
[2021-09-26] MEDS: WARFARIN SOD 10 MG TAB PO SCH (15:19)
[2021-09-26] MEDS: INSULIN HUMAN NPH SC SCH (17:40)
[2021-09-26] MEDS: CYCLOBENZAPRINE HCL 5 MG TAB PO SCH (21:44)
[2021-09-26] MEDS: HYOSCYAMINE SULFATE 0.125 MG TAB PO SCH (21:48)
[2021-09-26] MEDS: POLYETHYLENE (MIRALAX) 17 GM PACK PO PRN (23:51)
[2021-09-26] MEDS: ZOLPIDEM TARTRATE 5 MG TAB PO SCH (23:51)
[2021-09-27] MEDS: DAPTOMYCIN IV SCH (06:12)
[2021-09-27] MEDS: CEFTAZIDIME AVIBACTAM IV SCH ×3 (06:16→21:26)
[2021-09-27] MEDS: DEXTROSE 5% IV SCH ×3 (06:16→21:26)
[2021-09-27] MEDS: FUROSEMIDE 40 MG TAB PO SCH ×2 (06:17→17:18)
[2021-09-27] MEDS: rOPINIRole HCL 1 MG TABLET PO SCH ×4 (06:17→23:36)
[2021-09-27] MEDS: HEPARIN SOD 5,000 UNIT/0.5 ML VIAL SQ SCH ×3 (06:19→21:31)
[2021-09-27 07:14] LABS: Hematocrit (blood only) 31.6 % (42-52); Hemoglobin 9.8 g/dL (14.0-18.0); Mean Corpuscular Hemoglobin 28.7 pg (25-34); Mean Corpuscular Volume 92.7 fL (80-100); Mean Platelet Volume 9.1 fL (7.4-10.4); Platelet Count 236 K/uL (130-400); RDW Coefficient of Variation 18.7 % (11.5-14.5); RDW Standard Deviation 63.9 fL (36.4-46.3); Red Blood Count 3.41 M/uL (4.7-6.1); White Blood Count 9.91 K/uL (4.8-10.8)
[2021-09-27 07:25] LABS: INR 2.4 (0.9-1.1); Prothrombin Time 22.6 Seconds (9.0-12.0)
[2021-09-27 07:41] LABS: BUN Creatinine Ratio 37.4 (10-20); Calcium 9.4 mg/dl (8.5-10.1); Creatinine Clr Calc Pharmacy 103.6 ml/min; Est GFR (African American) 79.2 ml/min; Est GFR (Non-African American) 68.3 ml/min; Potassium 4.1 mmol/L (3.5-5.1)
[2021-09-27] MEDS: MAGNESIUM OXIDE 400 MG TAB PO SCH ×2 (08:18→21:27)
[2021-09-27] MEDS: POTASSIUM CHLORIDE 10 MEQ TABCR PO SCH ×2 (08:18→17:17)
[2021-09-27] MEDS: SPIRONOLACTONE 25 MG TAB PO SCH (08:19)
[2021-09-27] MEDS: ADVANCED PROBIOTIC 1250 MG CAPSULE PO SCH (08:19)
[2021-09-27] MEDS: ESCITALOPRAM OXALATE 20 MG TAB PO SCH (08:19)
[2021-09-27] MEDS: FAMOTIDINE 20 MG TAB PO SCH ×2 (08:19→21:27)
[2021-09-27] MEDS: GABAPENTIN 800 MG TAB PO SCH ×2 (08:20→21:27)
[2021-09-27] MEDS: tiZANidine HCL 4 MG TABLET PO SCH ×2 (08:20→21:30)
[2021-09-27] MEDS: PANTOprazole 40 MG TAB PO SCH (08:20)
[2021-09-27] MEDS: MULTIVITAMIN TAB PO SCH (08:20)
[2021-09-27] MEDS: FERROUS GLUCONATE 324 MG TAB PO SCH (08:21)
[2021-09-27] MEDS: allopurinoL 100 MG TAB PO SCH ×2 (08:21→23:36)
[2021-09-27] MEDS: BACLOFEN 10 MG TAB PO SCH ×4 (08:22→21:26)
[2021-09-27] MEDS: CASPOFUNGIN 50 MG in SODIUM CHLORIDE 0.9% 250 ML IV SCH (08:24)
[2021-09-27] MEDS: INSULIN HUMAN NPH SC SCH ×2 (08:29→17:23)
[2021-09-27] MEDS: INSULIN ASPART PER UNIT SC SCH ×4 (08:31→21:20)
[2021-09-27] MEDS: DAKIN'S SOLN 0.125% QUARTER STRENGTH 473 ML BTL EXT SCH (08:36)
--- NOTE | 2021-09-27 10:40 | Hospitalist Progress Note ---
Date of Service September 27, 2021 Assessment & Plan (1) Severe sepsis: Plan: Infected sacral wound causing severe sepsis on admission-resuscitated. Source control performed ~ 09/06/21-->Incision and Drainage and Debridement Sacral Tissue Down to Bone, 15cm x 11cm - Agusto Chaudhry DO Operative cultures sent: 09/06 buttock culture: E. Faecium VRE, Jocelyn albicans/dubliniensis, Pseudomonas: multidrug resistant, E.faecium sensitive to Dapto 09/06 sacrum wound culture: E Faecium VRE, Jocelyn albicans/dubliniensis ~ 09/08/21 ---> Revision I&D of the sacral decubitus ulcer by Agusto Weeks DO ~09/16/21 --> s/p Excisional Debridement of Sacral Ulcer down to Muscle Level 15cm x 11cm(Not Applicable) - Agusto Chaudhry DO He remains on IV antibiotics and antifungals per ID. Per surgery on wound VAC to see if we can get it to granulate-this is in place. Cont hospitalization pending insurance authorization of wound vac wants [facility]. DC when auth comes through (2) Sacral decubitus ulcer, stage IV: Plan: plan as above. Awaiting placement (3) Osteomyelitis: Plan: Per ID, Daptomycin, ceftazidime/Avibactam, caspofungin times total of 6 weeks Daptomycin started September 06, 2021 Ceftazidime/avibactam started September 11, 2021 Caspofungin started September 11, 2021 f/u with ID and outpatient wound care. PICC in place. During therapy, CK, CMP and CBC with differential weekly. Obtain CRP weekly until 2 months after stopping therapy. (4) Quadriplegia: Plan: Chronic, bedbound. Turn every 2, utilize therapy (Envella) bed. (5) DM type 2 (diabetes mellitus, type 2): Plan: NPH at 50 units twice daily. Glucose numbers around goal, increase to home dose 55 Units BID. We will continue NovoLog sliding scale as needed. 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 Warfarin restarted as ok with surgery. Titrate for goal 2-3 (10) Anemia: Plan: Acute on chronic anemia, Likely from acute blood loss secondary to recent procedure and chronic comorbidities. He received 1 unit pRBC on 09/06 and another unit of PRBCs on 09/10. He also received 4 units of fresh frozen plasma on 09/06. H&H stable, no indication for transfusion at this time. Iron levels reveal iron deficiency, continue iron supplementation and outpatient followup. Hb up from yesterday. (11) DVT prophylaxis: Plan: Heparin/warfarin-continue with heparin for DVT prophylaxis while warfarin is building up in system, until INR greater than 2. Full code Disposition-pending wound vac authorization and placement. ROS-No Headache, No Visual Changes, mild intermittent nausea, No Vomiting, No Fever, No Chills, No Neck Pain or Stiffness, No Chest Pain, No Palpitations, No SOB, No ROSS, No Cough, No Sputum, No Wheezing, No Abdominal Pain, No Diarrhea, No Hematemesis, No Hemoptysis, No Unexpected Weight Loss, No Flank pain, No Melena, No Hematochezia, No Frequency, No Urgency, No Burning, No Hematuria, No Rashes, No Diaphoresis. Appetite is Normal Physical Exam Gen-AAO x 3, NAD, Afebrile, obese, quadriplegic, with colostomy Head-NCAT, EOMI, PERRLA, Anicteric Sclera, No Posterior Pharyngeal Erythema Neck-Supple, No JVD, No Thyromegaly, No Masses, No LAD, No Bruits Lungs-Clear to Auscultation Bilaterally, No Rales, No Rhonchi, No Wheezing, No Crepitus Chest-No S4, +S1, +S2, No S3, No Murmurs, No Rubs, No Gallops, No Ectopy Abdomen-Soft, Bowel Sounds Present, Non Tender, Non Distended, No Hepatomegaly, No Splenomegaly, No Palpable Masses, No Rebound, No Rigidity, No Guarding, positive colostomy on left side Musculoskeletal-Full Range of Motion Bilaterally, No CVAT Extremities-No Cyanosis, No Clubbing, No Edema Skin-Stage 4 decub R Buttock Nuero-+quad Psych-Normal Mood Admission and Anticipated Discharge Date Admission Date: September 06, 2021 Subjective 60-year-old man with morbid obesity who is bedbound admitted for osteomyelitis of sacral decubitus ulcer that is chronic. Status post repeat wound debridement by Dr. Chaudhry area Tolerating p.o. No new issues, still no authorization Results & Data Results & Data ([facility]) Vital Signs (Past 12 Hours) Vital Signs Temp Pulse Resp BP Pulse Ox 09/27/21 08:03 36.4 C L 65 16 142/81 H 96 Laboratory Results Reviewed
[2021-09-27] MEDS: SODIUM CHLORIDE 0.9% 1000ML 1,000 ML IV SCH ×2 (11:16→21:20)
[2021-09-27] MEDS: ZINC SULFATE 220 MG CAPSULE PO SCH (12:27)
[2021-09-27] MEDS: WARFARIN SOD 10 MG TAB PO SCH (17:17)
[2021-09-27] MEDS: CYCLOBENZAPRINE HCL 5 MG TAB PO SCH (21:29)
[2021-09-27] MEDS: HYOSCYAMINE SULFATE 0.125 MG TAB PO SCH (21:30)
[2021-09-27] MEDS: ZOLPIDEM TARTRATE 5 MG TAB PO SCH (23:36)
[2021-09-28] MEDS: DAPTOMYCIN IV SCH (06:05)
[2021-09-28] MEDS: HEPARIN SOD 5,000 UNIT/0.5 ML VIAL SQ SCH ×3 (06:10→21:45)
[2021-09-28] MEDS: CEFTAZIDIME AVIBACTAM IV SCH ×3 (06:10→21:58)
[2021-09-28] MEDS: DEXTROSE 5% IV SCH ×3 (06:10→21:58)
[2021-09-28] MEDS: FUROSEMIDE 40 MG TAB PO SCH ×2 (06:11→17:28)
[2021-09-28] MEDS: rOPINIRole HCL 1 MG TABLET PO SCH ×3 (06:11→17:38)
[2021-09-28] MEDS: SODIUM CHLORIDE 0.9% 1000ML 1,000 ML IV SCH ×2 (07:32→17:24)
[2021-09-28 08:31] LABS: BUN Creatinine Ratio 39.3 (10-20); Calcium 9.1 mg/dl (8.5-10.1); Creatinine Clr Calc Pharmacy 111.3 ml/min; Est GFR (African American) 86.4 ml/min; Est GFR (Non-African American) 74.5 ml/min
[2021-09-28] MEDS: CASPOFUNGIN 50 MG in SODIUM CHLORIDE 0.9% 250 ML IV SCH (08:45)
[2021-09-28] MEDS: INSULIN ASPART PER UNIT SC SCH ×4 (08:47→21:49)
[2021-09-28] MEDS: tiZANidine HCL 4 MG TABLET PO SCH ×2 (08:48→21:46)
[2021-09-28] MEDS: allopurinoL 100 MG TAB PO SCH ×2 (08:48→21:45)
[2021-09-28] MEDS: DAKIN'S SOLN 0.125% QUARTER STRENGTH 473 ML BTL EXT SCH (08:48)
[2021-09-28] MEDS: PANTOprazole 40 MG TAB PO SCH (08:49)
[2021-09-28] MEDS: MULTIVITAMIN TAB PO SCH (08:49)
[2021-09-28] MEDS: SPIRONOLACTONE 25 MG TAB PO SCH (08:49)
[2021-09-28] MEDS: GABAPENTIN 800 MG TAB PO SCH ×2 (08:49→21:44)
[2021-09-28] MEDS: FERROUS GLUCONATE 324 MG TAB PO SCH (08:49)
[2021-09-28] MEDS: ESCITALOPRAM OXALATE 20 MG TAB PO SCH (08:49)
[2021-09-28] MEDS: POTASSIUM CHLORIDE 10 MEQ TABCR PO SCH ×2 (08:49→17:25)
[2021-09-28] MEDS: ADVANCED PROBIOTIC 1250 MG CAPSULE PO SCH (08:49)
[2021-09-28] MEDS: MAGNESIUM OXIDE 400 MG TAB PO SCH ×2 (08:50→21:44)
[2021-09-28] MEDS: BACLOFEN 10 MG TAB PO SCH ×4 (08:50→21:47)
[2021-09-28] MEDS: FAMOTIDINE 20 MG TAB PO SCH ×2 (08:50→21:44)
[2021-09-28] MEDS: INSULIN HUMAN NPH SC SCH ×2 (08:50→17:28)
--- NOTE | 2021-09-28 09:36 | Hospitalist Progress Note ---
Date of Service September 28, 2021 Assessment & Plan (1) Severe sepsis: Plan: Infected sacral wound causing severe sepsis on admission-resuscitated. Source control performed ~ 09/06/21-->Incision and Drainage and Debridement Sacral Tissue Down to Bone, 15cm x 11cm - Agusto Chaudhry DO Operative cultures sent: 09/06 buttock culture: E. Faecium VRE, Jocelyn albicans/dubliniensis, Pseudomonas: multidrug resistant, E.faecium sensitive to Dapto 09/06 sacrum wound culture: E Faecium VRE, Jocelyn albicans/dubliniensis ~ 09/08/21 ---> Revision I&D of the sacral decubitus ulcer by Agusto Weeks DO ~09/16/21 --> s/p Excisional Debridement of Sacral Ulcer down to Muscle Level 15cm x 11cm(Not Applicable) - Agusto Chaudhry DO He remains on IV antibiotics and antifungals per ID. Per surgery on wound VAC to see if we can get it to granulate-this is in place. Cont hospitalization pending insurance authorization of wound vac wants [facility]. DC when auth comes through (2) Sacral decubitus ulcer, stage IV: Plan: plan as above. Awaiting placement (3) Osteomyelitis: Plan: Per ID, Daptomycin, ceftazidime/Avibactam, caspofungin times total of 6 weeks Daptomycin started September 06, 2021 Ceftazidime/avibactam started September 11, 2021 Caspofungin started September 11, 2021 f/u with ID and outpatient wound care. PICC in place. During therapy, CK, CMP and CBC with differential weekly. Obtain CRP weekly until 2 months after stopping therapy. (4) Quadriplegia: Plan: Chronic, bedbound. Turn every 2, utilize therapy (Envella) bed. (5) DM type 2 (diabetes mellitus, type 2): Plan: NPH at 50 units twice daily. Glucose numbers around goal, increase to home dose 55 Units BID. We will continue NovoLog sliding scale as needed. 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 Warfarin restarted as ok with surgery. Titrate for goal 2-3 (10) Anemia: Plan: Acute on chronic anemia, Likely from acute blood loss secondary to recent procedure and chronic comorbidities. He received 1 unit pRBC on 09/06 and another unit of PRBCs on 09/10. He also received 4 units of fresh frozen plasma on 09/06. H&H stable, no indication for transfusion at this time. Iron levels reveal iron deficiency, continue iron supplementation and outpatient followup. Hb up from yesterday. (11) DVT prophylaxis: Plan: Heparin/warfarin-continue with heparin for DVT prophylaxis while warfarin is building up in system, until INR greater than 2. Full code Disposition-pending wound vac authorization and placement. ROS-No Headache, No Visual Changes, mild intermittent nausea, No Vomiting, No Fever, No Chills, No Neck Pain or Stiffness, No Chest Pain, No Palpitations, No SOB, No ROSS, No Cough, No Sputum, No Wheezing, No Abdominal Pain, No Diarrhea, No Hematemesis, No Hemoptysis, No Unexpected Weight Loss, No Flank pain, No Melena, No Hematochezia, No Frequency, No Urgency, No Burning, No Hematuria, No Rashes, No Diaphoresis. Appetite is Normal Physical Exam Gen-AAO x 3, NAD, Afebrile, obese, quadriplegic, with colostomy Head-NCAT, EOMI, PERRLA, Anicteric Sclera, No Posterior Pharyngeal Erythema Neck-Supple, No JVD, No Thyromegaly, No Masses, No LAD, No Bruits Lungs-Clear to Auscultation Bilaterally, No Rales, No Rhonchi, No Wheezing, No Crepitus Chest-No S4, +S1, +S2, No S3, No Murmurs, No Rubs, No Gallops, No Ectopy Abdomen-Soft, Bowel Sounds Present, Non Tender, Non Distended, No Hepatomegaly, No Splenomegaly, No Palpable Masses, No Rebound, No Rigidity, No Guarding, positive colostomy on left side Musculoskeletal-Full Range of Motion Bilaterally, No CVAT Extremities-No Cyanosis, No Clubbing, No Edema Skin-Stage 4 decub R Buttock Nuero-+quad Psych-Normal Mood Admission and Anticipated Discharge Date Admission Date: September 06, 2021 Subjective 60-year-old man with morbid obesity who is bedbound admitted for osteomyelitis of sacral decubitus ulcer that is chronic. Status post repeat wound debridement by Dr. Chaudhry Tolerating p.o. No new issues, still no authorization Results & Data Results & Data ([facility]) Vital Signs (Past 12 Hours) Vital Signs Temp Pulse Resp BP Pulse Ox 09/28/21 07:39 35.9 C L 74 20 100/60 98 09/27/21 22:00 36.5 C 82 18 117/61 95
--- NOTE | 2021-09-28 10:40 | Pharmacy Report ---
Pharmacy Glycemic Short Note 2 - Date of Service September 28, 2021 - Glycemic Short BSG Results (Last 24 hours): 09/27/21 09/27/21 09/27/21 11:33 16:14 20:34 Glucose POC Glucose 172 H 177 H 162 H 09/28/21 09/28/21 07:31 07:52 Glucose 147 H POC Glucose 161 H OUTPATIENT ANTIDIABETIC REGIMEN: * Novolin 70/30 insulin 56 units SC BIDM * Novolin R via sliding scale * Metformin 1 g PO BIDM * HbA1c: 7.2% (09/23/21) ASSESSMENT: 09/28/21: * BSGs have been reasonably well-controlled on current regimen past 48+ hours. * No changes required at this time. 09/26 * BSGs yesterday ranging 163-201 mg/dL * Received 225 units of insulin (120 units of NPH and 105 units of prandial/correctional Novolog) * Fasting BSG improved, but still above target - will increase NPH further today * If BSGs remain elevated today, tighten carb coverage tomorrow * Plan is for likely d/c to [facility] today or this weekend 09/25 * BSGs elevated yesterday, ranging 188-261 mg/dL * Received 213 units of insulin (110 units of NPH and 103 units of prandial/correctional Novolog) * Continues on broad spectrum antibiotics * Fasting BSG of 196 mg/dL this morning * Will tighten Novolog parameters and increase NPH today 09/22 * BRANDON is a 60 year old male admitted on 09/06/21 with severe sepsis secondary to infected sacral wounds/osteomyelitis * Pharmacy consulted today for glycemic management given persistent glucose elevations and patient preference for NPH insulin * Prior to consult, patient was receiving 70/30 insulin with Novolog (with correction factor and carb ratio) * Will switch to NPH insulin BID and tighten Novolog parameters to more easily titrate doses * Yesterday patient received ~137 units of insulin (74 units of basal and 63 units of bolus) * BSGs yesterday of 207, 267, 180, and 290 mg/dL * Will tighten Novolog parameters considerably today (especially in light of removing bolus component of 70/30) * Fasting BSG of 233 mg/dL this morning - will plan to increase basal component * AM insulin given after 10 AM, won't overreact to elevated BSG at lunchtime PLAN FOR INPATIENT GLYCEMIC CONTROL: * Hold outpatient oral diabetes medications * Basal insulin - increase * NPH 65 units SC BIDM * Bolus insulin - continue * NovoLog per scale ACHS or Q6hrs while NPO * Goal Range: Low 110 mg/dL - High 140 mg/dL * Correction Factor: 8 mg/dL/unit * Nutritional / Prandial insulin per carb ratio of 1 unit per 2 grams CHO consumed PLAN FOR DISCHARGE: * HbA1c of 7.2% is reasonable for patient * Reasonable to continue current outpatient regimen at discharge * Reinforce importance of controlling blood sugars for wound healing
[2021-09-28] MEDS: ZINC SULFATE 220 MG CAPSULE PO SCH (12:17)
[2021-09-28] MEDS: WARFARIN SOD 10 MG TAB PO SCH (17:28)
[2021-09-28] MEDS: CYCLOBENZAPRINE HCL 5 MG TAB PO SCH (21:45)
[2021-09-28] MEDS: HYOSCYAMINE SULFATE 0.125 MG TAB PO SCH (21:47)
[2021-09-29] MEDS: rOPINIRole HCL 1 MG TABLET PO SCH ×5 (00:09→23:54)
[2021-09-29] MEDS: ZOLPIDEM TARTRATE 5 MG TAB PO SCH ×2 (00:09→23:53)
[2021-09-29] MEDS: POLYETHYLENE (MIRALAX) 17 GM PACK PO PRN ×2 (00:09→22:30)
[2021-09-29] MEDS: SODIUM CHLORIDE 0.9% 1000ML 1,000 ML IV SCH ×3 (03:33→23:53)
[2021-09-29] MEDS: DEXTROSE 5% IV SCH ×3 (06:10→21:52)
[2021-09-29] MEDS: CEFTAZIDIME AVIBACTAM IV SCH ×3 (06:10→21:52)
[2021-09-29] MEDS: DAPTOMYCIN IV SCH (06:10)
[2021-09-29] MEDS: FUROSEMIDE 40 MG TAB PO SCH ×2 (06:11→17:07)
[2021-09-29] MEDS: HEPARIN SOD 5,000 UNIT/0.5 ML VIAL SQ SCH ×3 (06:11→21:43)
[2021-09-29] MEDS: allopurinoL 100 MG TAB PO SCH ×2 (08:24→21:46)
[2021-09-29] MEDS: ADVANCED PROBIOTIC 1250 MG CAPSULE PO SCH (08:24)
[2021-09-29] MEDS: POTASSIUM CHLORIDE 10 MEQ TABCR PO SCH ×2 (08:24→17:05)
[2021-09-29] MEDS: MULTIVITAMIN TAB PO SCH (08:24)
[2021-09-29] MEDS: MAGNESIUM OXIDE 400 MG TAB PO SCH ×2 (08:25→21:49)
[2021-09-29] MEDS: GABAPENTIN 800 MG TAB PO SCH ×2 (08:25→22:31)
[2021-09-29] MEDS: ESCITALOPRAM OXALATE 20 MG TAB PO SCH (08:25)
[2021-09-29] MEDS: FERROUS GLUCONATE 324 MG TAB PO SCH (08:25)
[2021-09-29] MEDS: tiZANidine HCL 4 MG TABLET PO SCH ×2 (08:26→21:49)
[2021-09-29] MEDS: PANTOprazole 40 MG TAB PO SCH (08:26)
[2021-09-29] MEDS: BACLOFEN 10 MG TAB PO SCH ×4 (08:26→21:48)
[2021-09-29] MEDS: FAMOTIDINE 20 MG TAB PO SCH ×2 (08:26→21:48)
[2021-09-29] MEDS: SPIRONOLACTONE 25 MG TAB PO SCH (08:27)
[2021-09-29] MEDS: INSULIN HUMAN NPH SC SCH ×2 (08:28→17:05)
[2021-09-29] MEDS: INSULIN ASPART PER UNIT SC SCH ×4 (08:32→21:42)
--- NOTE | 2021-09-29 09:17 | Hospitalist Progress Note ---
Date of Service September 29, 2021 Assessment & Plan (1) Severe sepsis: Plan: Infected sacral wound causing severe sepsis on admission-resuscitated. Source control performed ~ 09/06/21-->Incision and Drainage and Debridement Sacral Tissue Down to Bone, 15cm x 11cm - Agusto Chaudhry DO Operative cultures sent: 09/06 buttock culture: E. Faecium VRE, Jocelyn albicans/dubliniensis, Pseudomonas: multidrug resistant, E.faecium sensitive to Dapto 09/06 sacrum wound culture: E Faecium VRE, Jocelyn albicans/dubliniensis ~ 09/08/21 ---> Revision I&D of the sacral decubitus ulcer by Agusto Weeks DO ~09/16/21 --> s/p Excisional Debridement of Sacral Ulcer down to Muscle Level 15cm x 11cm(Not Applicable) - Agusto Chaudhry DO He remains on IV antibiotics and antifungals per ID. Per surgery on wound VAC to see if we can get it to granulate-this is in place. Cont hospitalization pending insurance authorization of wound vac wants [facility]. DC when auth comes through (2) Sacral decubitus ulcer, stage IV: Plan: plan as above. Awaiting placement (3) Osteomyelitis: Plan: Per ID, Daptomycin, ceftazidime/Avibactam, caspofungin times total of 6 weeks Daptomycin started September 06, 2021 Ceftazidime/avibactam started September 11, 2021 Caspofungin started September 11, 2021 f/u with ID and outpatient wound care. PICC in place. During therapy, CK, CMP and CBC with differential weekly. Obtain CRP weekly until 2 months after stopping therapy. (4) Quadriplegia: Plan: Chronic, bedbound. Turn every 2, utilize therapy (Envella) bed. (5) DM type 2 (diabetes mellitus, type 2): Plan: NPH at 50 units twice daily. Glucose numbers around goal, increase to home dose 55 Units BID. We will continue NovoLog sliding scale as needed. 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 Warfarin restarted as ok with surgery. Titrate for goal 2-3 (10) Anemia: Plan: Acute on chronic anemia, Likely from acute blood loss secondary to recent procedure and chronic comorbidities. He received 1 unit pRBC on 09/06 and another unit of PRBCs on 09/10. He also received 4 units of fresh frozen plasma on 09/06. H&H stable, no indication for transfusion at this time. Iron levels reveal iron deficiency, continue iron supplementation and outpatient followup. (11) DVT prophylaxis: Plan: Heparin/warfarin-continue with heparin for DVT prophylaxis while warfarin is building up in system, until INR greater than 2. Full code Disposition-pending wound vac authorization and placement. ROS-No Headache, No Visual Changes, mild intermittent nausea, No Vomiting, No Fever, No Chills, No Neck Pain or Stiffness, No Chest Pain, No Palpitations, No SOB, No ROSS, No Cough, No Sputum, No Wheezing, No Abdominal Pain, No Diarrhea, No Hematemesis, No Hemoptysis, No Unexpected Weight Loss, No Flank pain, No Melena, No Hematochezia, No Frequency, No Urgency, No Burning, No Hematuria, No Rashes, No Diaphoresis. Appetite is Normal Physical Exam Gen-AAO x 3, NAD, Afebrile, obese, quadriplegic, with colostomy Head-NCAT, EOMI, PERRLA, Anicteric Sclera, No Posterior Pharyngeal Erythema Neck-Supple, No JVD, No Thyromegaly, No Masses, No LAD, No Bruits Lungs-Clear to Auscultation Bilaterally, No Rales, No Rhonchi, No Wheezing, No Crepitus Chest-No S4, +S1, +S2, No S3, No Murmurs, No Rubs, No Gallops, No Ectopy Abdomen-Soft, Bowel Sounds Present, Non Tender, Non Distended, No Hepatomegaly, No Splenomegaly, No Palpable Masses, No Rebound, No Rigidity, No Guarding, positive colostomy on left side Musculoskeletal-Full Range of Motion Bilaterally, No CVAT Extremities-No Cyanosis, No Clubbing, No Edema Skin-Stage 4 decub R Buttock Nuero-+quad Psych-Normal Mood Admission and Anticipated Discharge Date Admission Date: September 06, 2021 Subjective 60-year-old man with morbid obesity who is bedbound admitted for osteomyelitis of sacral decubitus ulcer that is chronic. Status post repeat wound debridement by Dr. Chaudhry Tolerating p.o. No new issues, still no authorization Results & Data Results & Data ([facility]) Vital Signs (Past 12 Hours) Vital Signs Temp Pulse Resp BP Pulse Ox 09/29/21 08:04 36.5 C 80 18 113/63 94 09/28/21 23:56 36.9 C 94 H 20 145/62 H 97 Laboratory Results Reviewed
[2021-09-29] MEDS: CASPOFUNGIN 50 MG in SODIUM CHLORIDE 0.9% 250 ML IV SCH (09:34)
[2021-09-29] MEDS: DAKIN'S SOLN 0.125% QUARTER STRENGTH 473 ML BTL EXT SCH (10:38)
[2021-09-29] MEDS: ZINC SULFATE 220 MG CAPSULE PO SCH (12:32)
[2021-09-29] MEDS: WARFARIN SOD 10 MG TAB PO SCH (17:04)
[2021-09-29] MEDS: CYCLOBENZAPRINE HCL 5 MG TAB PO SCH (21:46)
[2021-09-29] MEDS: HYOSCYAMINE SULFATE 0.125 MG TAB PO SCH (21:51)
[2021-09-30] MEDS: DEXTROSE 5% IV SCH ×3 (06:09→22:25)
[2021-09-30] MEDS: CEFTAZIDIME AVIBACTAM IV SCH ×3 (06:09→22:25)
[2021-09-30] MEDS: DAPTOMYCIN IV SCH (06:10)
[2021-09-30] MEDS: rOPINIRole HCL 1 MG TABLET PO SCH ×4 (06:20→23:44)
[2021-09-30] MEDS: FUROSEMIDE 40 MG TAB PO SCH ×2 (06:21→17:57)
[2021-09-30] MEDS: HEPARIN SOD 5,000 UNIT/0.5 ML VIAL SQ SCH ×3 (06:22→21:23)
[2021-09-30] MEDS: INSULIN HUMAN NPH SC SCH ×2 (08:31→21:14)
[2021-09-30] MEDS: INSULIN ASPART PER UNIT SC SCH ×4 (08:31→21:19)
[2021-09-30] MEDS: allopurinoL 100 MG TAB PO SCH ×2 (08:43→21:22)
[2021-09-30] MEDS: MAGNESIUM OXIDE 400 MG TAB PO SCH ×2 (08:43→21:25)
[2021-09-30] MEDS: FAMOTIDINE 20 MG TAB PO SCH ×2 (08:43→21:22)
[2021-09-30] MEDS: POTASSIUM CHLORIDE 10 MEQ TABCR PO SCH ×2 (08:44→16:56)
[2021-09-30] MEDS: tiZANidine HCL 4 MG TABLET PO SCH ×2 (08:44→21:22)
[2021-09-30] MEDS: FERROUS GLUCONATE 324 MG TAB PO SCH (08:44)
[2021-09-30] MEDS: ADVANCED PROBIOTIC 1250 MG CAPSULE PO SCH (08:44)
[2021-09-30] MEDS: MULTIVITAMIN TAB PO SCH (08:44)
[2021-09-30] MEDS: BACLOFEN 10 MG TAB PO SCH ×4 (08:44→21:24)
[2021-09-30] MEDS: ESCITALOPRAM OXALATE 20 MG TAB PO SCH (08:45)
[2021-09-30] MEDS: PANTOprazole 40 MG TAB PO SCH (08:45)
[2021-09-30] MEDS: SPIRONOLACTONE 25 MG TAB PO SCH (08:46)
[2021-09-30] MEDS: GABAPENTIN 800 MG TAB PO SCH ×2 (08:46→21:25)
[2021-09-30] MEDS: DAKIN'S SOLN 0.125% QUARTER STRENGTH 473 ML BTL EXT SCH (08:47)
[2021-09-30] MEDS: SODIUM CHLORIDE 0.9% 1000ML 1,000 ML IV SCH (09:08)
[2021-09-30] MEDS: CASPOFUNGIN 50 MG in SODIUM CHLORIDE 0.9% 250 ML IV SCH (09:23)
--- NOTE | 2021-09-30 09:36 | Hospitalist Progress Note ---
Date of Service September 30, 2021 Assessment & Plan (1) Severe sepsis: Plan: Infected sacral wound causing severe sepsis on admission-resuscitated. Source control performed ~ 09/06/21-->Incision and Drainage and Debridement Sacral Tissue Down to Bone, 15cm x 11cm - Agusto Chaudhry DO Operative cultures sent: 09/06 buttock culture: E. Faecium VRE, Jocelyn albicans/dubliniensis, Pseudomonas: multidrug resistant, E.faecium sensitive to Dapto 09/06 sacrum wound culture: E Faecium VRE, Jocelyn albicans/dubliniensis ~ 09/08/21 ---> Revision I&D of the sacral decubitus ulcer by Agusto Weeks DO ~09/16/21 --> s/p Excisional Debridement of Sacral Ulcer down to Muscle Level 15cm x 11cm(Not Applicable) - Agusto Chaudhry DO He remains on IV antibiotics and antifungals per ID. Per surgery on wound VAC to see if we can get it to granulate-this is in place. Cont hospitalization pending insurance authorization of wound vac wants [facility]. DC when auth comes through (2) Sacral decubitus ulcer, stage IV: Plan: plan as above. Awaiting placement (3) Osteomyelitis: Plan: Per ID, Daptomycin, ceftazidime/Avibactam, caspofungin times total of 6 weeks Daptomycin started September 06, 2021 Ceftazidime/avibactam started September 11, 2021 Caspofungin started September 11, 2021 f/u with ID and outpatient wound care. PICC in place. During therapy, CK, CMP and CBC with differential weekly. Obtain CRP weekly until 2 months after stopping therapy. (4) Quadriplegia: Plan: Chronic, bedbound. Turn every 2, utilize therapy (Envella) bed. (5) DM type 2 (diabetes mellitus, type 2): Plan: NPH at 50 units twice daily. Glucose numbers around goal, increase to home dose 55 Units BID. We will continue NovoLog sliding scale as needed. 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 Warfarin restarted as ok with surgery. Titrate for goal 2-3 (10) Anemia: Plan: Acute on chronic anemia, Likely from acute blood loss secondary to recent procedure and chronic comorbidities. He received 1 unit pRBC on 09/06 and another unit of PRBCs on 09/10. He also received 4 units of fresh frozen plasma on 09/06. H&H stable, no indication for transfusion at this time. Iron levels reveal iron deficiency, continue iron supplementation and outpatient followup. (11) DVT prophylaxis: Plan: Heparin/warfarin-continue with heparin for DVT prophylaxis while warfarin is building up in system, until INR greater than 2. Full code Disposition-pending wound vac authorization and placement. ROS-No Headache, No Visual Changes, mild intermittent nausea, No Vomiting, No Fever, No Chills, No Neck Pain or Stiffness, No Chest Pain, No Palpitations, No SOB, No ROSS, No Cough, No Sputum, No Wheezing, No Abdominal Pain, No Diarrhea, No Hematemesis, No Hemoptysis, No Unexpected Weight Loss, No Flank pain, No Melena, No Hematochezia, No Frequency, No Urgency, No Burning, No Hematuria, No Rashes, No Diaphoresis. Appetite is Normal Physical Exam Gen-AAO x 3, NAD, Afebrile, obese, quadriplegic, with colostomy Head-NCAT, EOMI, PERRLA, Anicteric Sclera, No Posterior Pharyngeal Erythema Neck-Supple, No JVD, No Thyromegaly, No Masses, No LAD, No Bruits Lungs-Clear to Auscultation Bilaterally, No Rales, No Rhonchi, No Wheezing, No Crepitus Chest-No S4, +S1, +S2, No S3, No Murmurs, No Rubs, No Gallops, No Ectopy Abdomen-Soft, Bowel Sounds Present, Non Tender, Non Distended, No Hepatomegaly, No Splenomegaly, No Palpable Masses, No Rebound, No Rigidity, No Guarding, positive colostomy on left side Musculoskeletal-Full Range of Motion Bilaterally, No CVAT Extremities-No Cyanosis, No Clubbing, No Edema Skin-Stage 4 decub R Buttock Nuero-+quad Psych-Normal Mood Admission and Anticipated Discharge Date Admission Date: September 06, 2021 Subjective 60-year-old man with morbid obesity who is bedbound admitted for osteomyelitis of sacral decubitus ulcer that is chronic. Status post repeat wound debridement by Dr. Chaudhry Tolerating p.o. No new issues, still no authorization Results & Data Results & Data ([facility]) Vital Signs (Past 12 Hours) Vital Signs Temp Pulse Resp BP Pulse Ox 09/30/21 07:36 36.4 C L 72 18 113/67 98 09/30/21 03:51 36.3 C L 73 20 101/62 99 09/29/21 23:03 36.5 C 77 20 133/75 96 Laboratory Results Reviewed
[2021-09-30] MEDS: ZINC SULFATE 220 MG CAPSULE PO SCH (11:59)
[2021-09-30] MEDS: WARFARIN SOD 10 MG TAB PO SCH (17:56)
[2021-09-30] MEDS: HYOSCYAMINE SULFATE 0.125 MG TAB PO SCH (21:25)
[2021-09-30] MEDS: CYCLOBENZAPRINE HCL 5 MG TAB PO SCH (21:26)
[2021-09-30] MEDS: ZOLPIDEM TARTRATE 5 MG TAB PO SCH (23:44)
[2021-10-01] MEDS: HEPARIN SOD 5,000 UNIT/0.5 ML VIAL SQ SCH ×3 (05:58→22:20)
[2021-10-01] MEDS: FUROSEMIDE 40 MG TAB PO SCH ×2 (05:58→17:42)
[2021-10-01] MEDS: rOPINIRole HCL 1 MG TABLET PO SCH ×4 (05:58→23:42)
[2021-10-01] MEDS: CEFTAZIDIME AVIBACTAM IV SCH ×3 (05:58→23:41)
[2021-10-01] MEDS: DAPTOMYCIN IV SCH (05:58)
[2021-10-01] MEDS: DEXTROSE 5% IV SCH ×3 (05:58→23:41)
[2021-10-01 06:25] LABS: Hematocrit (blood only) 32.1 % (42-52); Hemoglobin 9.7 g/dL (14.0-18.0); Mean Corpuscular Hgb Conc 30.2 g/dL (32-36); Mean Corpuscular Volume 92.5 fL (80-100); Mean Platelet Volume 9.3 fL (7.4-10.4); Platelet Count 231 K/uL (130-400); RDW Coefficient of Variation 18.7 % (11.5-14.5); RDW Standard Deviation 64.5 fL (36.4-46.3); Red Blood Count 3.47 M/uL (4.7-6.1); White Blood Count 11.56 K/uL (4.8-10.8)
[2021-10-01 06:41] LABS: INR 3.8 (0.9-1.1); Prothrombin Time 34.9 Seconds (9.0-12.0)
[2021-10-01 06:47] LABS: Albumin Globulin Ratio 0.8 (0.9-2); Albumin Level 3.4 gm/dl (3.4-5.0); BUN Creatinine Ratio 40.4 (10-20); Bilirubin,Total 0.4 mg/dl (0.2-1.0); Calcium 9.5 mg/dl (8.5-10.1); Creatinine Clr Calc Pharmacy 109.3 ml/min; Est GFR (African American) 84.5 ml/min; Est GFR (Non-African American) 72.9 ml/min; Globulin 4.5 gm/dl (2.5-4.0); Potassium 4.2 mmol/L (3.5-5.1); Total Protein 7.9 gm/dl (6.0-8.3)
[2021-10-01] MEDS: INSULIN HUMAN NPH SC SCH ×2 (08:59→17:34)
[2021-10-01] MEDS: PANTOprazole 40 MG TAB PO SCH (09:00)
[2021-10-01] MEDS: ESCITALOPRAM OXALATE 20 MG TAB PO SCH (09:01)
[2021-10-01] MEDS: POTASSIUM CHLORIDE 10 MEQ TABCR PO SCH ×2 (09:01→17:39)
[2021-10-01] MEDS: ADVANCED PROBIOTIC 1250 MG CAPSULE PO SCH (09:01)
[2021-10-01] MEDS: GABAPENTIN 800 MG TAB PO SCH ×2 (09:02→22:19)
[2021-10-01] MEDS: FERROUS GLUCONATE 324 MG TAB PO SCH (09:02)
[2021-10-01] MEDS: MULTIVITAMIN TAB PO SCH (09:02)
[2021-10-01] MEDS: BACLOFEN 10 MG TAB PO SCH ×4 (09:02→22:19)
[2021-10-01] MEDS: MAGNESIUM OXIDE 400 MG TAB PO SCH ×2 (09:02→22:16)
[2021-10-01] MEDS: SPIRONOLACTONE 25 MG TAB PO SCH (09:03)
[2021-10-01] MEDS: tiZANidine HCL 4 MG TABLET PO SCH ×2 (09:03→22:16)
[2021-10-01] MEDS: allopurinoL 100 MG TAB PO SCH ×2 (09:03→22:18)
[2021-10-01] MEDS: FAMOTIDINE 20 MG TAB PO SCH ×2 (09:03→22:17)
[2021-10-01] MEDS: INSULIN ASPART PER UNIT SC SCH ×4 (09:14→22:15)
[2021-10-01] MEDS: CASPOFUNGIN 50 MG in SODIUM CHLORIDE 0.9% 250 ML IV SCH (09:14)
[2021-10-01] MEDS: ZINC SULFATE 220 MG CAPSULE PO SCH (13:01)
--- NOTE | 2021-10-01 15:10 | Pharmacy Report ---
Pharmacy Glycemic Short Note 2 - Date of Service October 01, 2021 - Glycemic Short BSG Results (Last 24 hours): 09/30/21 09/30/21 10/01/21 16:25 20:09 06:06 Glucose 138 H POC Glucose 121 H 163 H 10/01/21 10/01/21 07:30 11:25 Glucose POC Glucose 156 H 196 H OUTPATIENT ANTIDIABETIC REGIMEN: * Novolin 70/30 insulin 56 units SC BIDM * Novolin R via sliding scale * Metformin 1 g PO BIDM * HbA1c: 7.2% (09/23/21) ASSESSMENT: 10/01/21: * Marlon received 253 units of insulin yesterday (130 units NPH + 123 units Novolog) - needs have been stable * Anticipate no acute changes - continue current orders 09/28/21: * BSGs have been reasonably well-controlled on current regimen past 48+ hours. * No changes required at this time. 09/26 * BSGs yesterday ranging 163-201 mg/dL * Received 225 units of insulin (120 units of NPH and 105 units of prandial/correctional Novolog) * Fasting BSG improved, but still above target - will increase NPH further today * If BSGs remain elevated today, tighten carb coverage tomorrow * Plan is for likely d/c to [facility] today or this weekend 09/25 * BSGs elevated yesterday, ranging 188-261 mg/dL * Received 213 units of insulin (110 units of NPH and 103 units of prandial/correctional Novolog) * Continues on broad spectrum antibiotics * Fasting BSG of 196 mg/dL this morning * Will tighten Novolog parameters and increase NPH today 09/22 * BRANDON is a 60 year old male admitted on 09/06/21 with severe sepsis secondary to infected sacral wounds/osteomyelitis * Pharmacy consulted today for glycemic management given persistent glucose elevations and patient preference for NPH insulin * Prior to consult, patient was receiving 70/30 insulin with Novolog (with correction factor and carb ratio) * Will switch to NPH insulin BID and tighten Novolog parameters to more easily titrate doses * Yesterday patient received ~137 units of insulin (74 units of basal and 63 units of bolus) * BSGs yesterday of 207, 267, 180, and 290 mg/dL * Will tighten Novolog parameters considerably today (especially in light of removing bolus component of 70/30) * Fasting BSG of 233 mg/dL this morning - will plan to increase basal component * AM insulin given after 10 AM, won't overreact to elevated BSG at lunchtime PLAN FOR INPATIENT GLYCEMIC CONTROL: * Hold outpatient oral diabetes medications * Basal insulin * NPH 65 units SC BIDM * Bolus insulin * NovoLog per scale ACHS or Q6hrs while NPO * Goal Range: Low 110 mg/dL - High 140 mg/dL * Correction Factor: 8 mg/dL/unit * Nutritional / Prandial insulin per carb ratio of 1 unit per 2 grams CHO consumed PLAN FOR DISCHARGE: * HbA1c of 7.2% is reasonable for patient * Reasonable to continue current outpatient regimen at discharge * Reinforce importance of controlling blood sugars for wound healing
--- NOTE | 2021-10-01 17:14 | Hospitalist Progress Note ---
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 Purulent drainage from sacral wound soaking dressings as per his . Patient with loose stools as per . No headache/chest pain/SOA/abdominal pain. Pt non smoker and no chronic intake of alcohols.Pt on 2L O2 at night at home. Of note, patient was in [facility] August 24-2020--> sacral decubitus s/p debridement where wound culture grew MDR Pseudomonas and Enterococcus faecalis. Per , debridement not deep enough due to elevated INR at the time of surgery per Surgeon. Patient had concerns about draining wounds with intermittent bleeding at time of discharge from [facility] 2 days ago. He is being managed for the following: (1) Severe sepsis: Infected sacral wound causing severe sepsis on admission-resuscitated. Source control performed ~ 09/06/21-->Incision and Drainage and Debridement Sacral Tissue Down to Bone, 15cm x 11cm - Agusto Chaudhry DO Operative cultures sent: 09/06 buttock culture: E. Faecium VRE, Jocelyn albicans/dubliniensis, Pseudomonas: multidrug resistant, E.faecium sensitive to Dapto 09/06 sacrum wound culture: E Faecium VRE, Jocelyn albicans/dubliniensis ~ 09/08/21 ---> Revision I&D of the sacral decubitus ulcer by Agusto Weeks DO ~09/16/21 --> s/p Excisional Debridement of Sacral Ulcer down to Muscle Level 15cm x 11cm(Not Applicable) - Agusto Chaudhry DO He remains on IV antibiotics and antifungals per ID. Per surgery on wound VAC to see if we can get it to granulate-this is in place. Cont hospitalization pending insurance authorization of wound vac; wants [facility]. DC when auth comes through (2) Sacral decubitus ulcer, stage IV: plan as above. Awaiting placement (3) Osteomyelitis: Per ID, Daptomycin, ceftazidime/Avibactam, caspofungin times total of 6 weeks Daptomycin started September 06, 2021 Ceftazidime/avibactam started September 11, 2021 Caspofungin started September 11, 2021 f/u with ID and outpatient wound care. PICC in place. During therapy, CK, CMP and CBC with differential weekly. Obtain CRP weekly until 2 months after stopping therapy. (4) Quadriplegia: Plan: Chronic, bedbound. Turn every 2, utilize therapy (Envella) bed. (5) DM type 2 (diabetes mellitus, type 2): Plan: NPH at 50 units twice daily. Glucose numbers around goal, increase to home dose 55 Units BID. We will continue NovoLog sliding scale as needed. (6) Nocturnal hypoxia: Plan: Patient utilizes oxygen while sleeping (7) Neurogenic bladder: Plan: Chronic indwelling Martinez present (surapubic catheter (8) Morbid obesity: (9) Current use of [facility] anticoagulation: Plan: Patient on Coumadin, INR therapeutic at admission, IVC filter placed 11 years ago per patient. Warfarin restarted as ok with surgery. Titrate for goal 2-3 Holding warfarin today as INR is slightly supratherapeutic today, will need f/u with OP coumadin clinic for dose adjustment (10) Anemia: Plan: Acute on chronic anemia, Likely from acute blood loss secondary to recent procedure and chronic comorbidities. He received 1 unit pRBC on 09/06 and another unit of PRBCs on 09/10. He also received 4 units of fresh frozen plasma on 09/06. H&H stable, no indication for transfusion at this time. Iron levels reveal iron deficiency, continue iron supplementation and outpatient followup. (11) DVT prophylaxis: ON Warfarin Full code Disposition-pending wound vac authorization and placement. Admission and Anticipated Discharge Date Admission Date: September 06, 2021 Subjective Patient seen and examined at the bedside for sacral decubitus ulcer stage IV status post multiple incision and drainage and sacral osteomyelitis. Patient lying in bed, on room air, NAD, no new acute events overnight. Patient reports eating and moving bowels okay. Patient denies any fever/chills/headache/chest pain/palpitation/other review of symptoms. Physical Exam Physical Exam: GENERAL: Alert and oriented x3. NAD, on RA HEENT: No pallor, no icterus. Pupils equal, round and reactive to light. Oral mucosa moist. NECK: No JVD, no neck masses. HEART: S1 and S2 heard. Regular rate and rhythm. No murmur, no gallop. RESPIRATORY SYSTEM: Normal AP diameter. No accessory muscle use. No wheezing, no crackles. ABDOMEN: Soft, bowel sounds present, nontender, no distention. Left ostomy bag with brown fecal collection with no blood. Suprapubic catheter with no erythema/tenderness around the port of entry. CENTRAL NERVOUS SYSTEM: No facial droop. Speech is clear. Obeys simple commands. 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 [Patient incomplete quadriplegic]. EXTREMITIES: No edema, no erythema seen. Back: extensive decubitus wound per documentation, difficult to manipulate the patient. Wound image reviewed. Results & Data Results & Data ([facility]) Vital Signs (Past 12 Hours) Vital Signs Temp Pulse Resp BP Pulse Ox 10/01/21 14:56 36.5 C 71 18 105/62 97 10/01/21 07:58 36.5 C 74 18 110/70 99
[2021-10-01] MEDS: HYOSCYAMINE SULFATE 0.125 MG TAB PO SCH (22:17)
[2021-10-01] MEDS: CYCLOBENZAPRINE HCL 5 MG TAB PO SCH (22:17)
[2021-10-01] MEDS: ZOLPIDEM TARTRATE 5 MG TAB PO SCH (23:41)
[2021-10-02 06:24] LABS: INR 3.9 (0.9-1.1); Prothrombin Time 35.9 Seconds (9.0-12.0)
[2021-10-02] MEDS: DEXTROSE 5% IV SCH (06:31)
[2021-10-02] MEDS: CEFTAZIDIME AVIBACTAM IV SCH (06:31)
[2021-10-02] MEDS: rOPINIRole HCL 1 MG TABLET PO SCH ×2 (06:31→13:02)
[2021-10-02] MEDS: DAPTOMYCIN IV SCH (06:31)
[2021-10-02] MEDS: HEPARIN SOD 5,000 UNIT/0.5 ML VIAL SQ SCH (06:32)
[2021-10-02] MEDS: FUROSEMIDE 40 MG TAB PO SCH (06:34)
[2021-10-02] MEDS: POTASSIUM CHLORIDE 10 MEQ TABCR PO SCH (08:46)
[2021-10-02] MEDS: MULTIVITAMIN TAB PO SCH (08:47)
[2021-10-02] MEDS: ADVANCED PROBIOTIC 1250 MG CAPSULE PO SCH (08:47)
[2021-10-02] MEDS: MAGNESIUM OXIDE 400 MG TAB PO SCH (08:47)
[2021-10-02] MEDS: allopurinoL 100 MG TAB PO SCH (08:47)
[2021-10-02] MEDS: PANTOprazole 40 MG TAB PO SCH (08:48)
[2021-10-02] MEDS: FAMOTIDINE 20 MG TAB PO SCH (08:48)
[2021-10-02] MEDS: FERROUS GLUCONATE 324 MG TAB PO SCH (08:48)
[2021-10-02] MEDS: SPIRONOLACTONE 25 MG TAB PO SCH (08:48)
[2021-10-02] MEDS: ESCITALOPRAM OXALATE 20 MG TAB PO SCH (08:48)
[2021-10-02] MEDS: BACLOFEN 10 MG TAB PO SCH ×2 (08:49→13:01)
[2021-10-02] MEDS: GABAPENTIN 800 MG TAB PO SCH (08:49)
[2021-10-02] MEDS: tiZANidine HCL 4 MG TABLET PO SCH (08:49)
[2021-10-02] MEDS: INSULIN HUMAN NPH SC SCH (08:50)
[2021-10-02] MEDS: CASPOFUNGIN 50 MG in SODIUM CHLORIDE 0.9% 250 ML IV SCH (08:50)
[2021-10-02] MEDS: INSULIN ASPART PER UNIT SC SCH ×2 (08:57→13:00)
[2021-10-02 11:37] VITALS: BP 113/67; PULSE 84; TEMP 97.9; O2SAT 95
[2021-10-02] MEDS: ZINC SULFATE 220 MG CAPSULE PO SCH (13:02)
--- NOTE | 2021-10-02 17:18 | Discharge Summary ---
Date of Service October 02, 2021 Admission HPI Per Admitting Provider History obtained from patient, , and records. 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 dif, chronic sacral decubitus wounds status post recent debridement. Last confinement at [facility] June 2021 for syncope. Patient confined at [facility] from August 24-2020 for sacral decubitus ulcer status post debridement. Wound CS grew MDR Pseudomonas aeruginosa and Enterococcus faecalis. Debridement was not deep enough as per 's conversation with surgeon due to elevated INR from Coumadin at time of surgery. Patient had concerns about draining wounds with intermittent bleeding at time of discharge from [facility] 2 days ago. Patient noted to have low-grade fever, lethargy, poor appetite at home yesterday. Purulent drainage from sacral wounds soaking dressing as per . Patient with loose stools as per . Patient denies headache, chest pain, S OB, abdominal pain. Patient noted to be hypotensive upon EMS arrival at patient's home. Patient given Vancomycin and Cefepime; vitamin K administered at the ER. MEDICAL HISTORY: As above. SURGICAL HISTORY: Kidney stone procedures, suprapubic catheter placement, neck surgery, IVC filter placement, ostomy//bowel surgery, vascular procedure, wound debridement FAMILY HISTORY: DM, prostate cancer PERSONAL SOCIAL HISTORY: Nonsmoker. No chronic intake of alcoholic beverages. On disability. Admission Exam Per Admitting Provider GENERAL: Comfortable, pleasant, morbidly obese, no respiratory distress SKIN: Pallor, warm HEENT: Pale palpebral conjunctivae, no ptosis, dry buccal mucosa NECK : Supple, short neck, no tenderness CHEST : Decreased breath sounds, no tenderness HEART : Tachycardic, no obvious murmurs ABDOMEN: distention, nontender, ostomy noted BACK : Extensive decubitus wounds with drainage gluteal region as per ER provider documentation EXTREMITIES : Minimal LE swelling left greater than the right, no LE tenderness, no other conspicuous deformities noted NEUROLOGIC : Coherent, no facial asymmetry, quadriplegia Principal Diagnosis Sacral decubitus ulcer, stage IV, infected Sacral OM Discharge Exam GENERAL: Alert and oriented x3. NAD, on RA HEENT: No pallor, no icterus. Pupils equal, round and reactive to light. Oral mucosa moist. NECK: No JVD, no neck masses. HEART: S1 and S2 heard. Regular rate and rhythm. No murmur, no gallop. RESPIRATORY SYSTEM: Normal AP diameter. No accessory muscle use. No wheezing, no crackles. ABDOMEN: Soft, bowel sounds present, nontender, no distention. Left ostomy bag with brown fecal collection with no blood. Suprapubic catheter with no erythema/tenderness around the port of entry. CENTRAL NERVOUS SYSTEM: No facial droop. Speech is clear. Obeys simple commands. 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 [Patient incomplete quadriplegic]. EXTREMITIES: No edema, no erythema seen. Back: extensive decubitus wound per documentation, difficult to manipulate the patient. Wound image reviewed. Discharge Data Allergies Allergy/AdvReac Type Severity Reaction Status Date / Time codeine Allergy Severe THROAT Verified 09/08/21 08:34 SWELLS latex Allergy Intermediate welts Verified 09/08/21 08:34 piperacillin Allergy Intermediate RASH Verified 09/08/21 08:34 Sulfa (Sulfonamide Allergy Intermediate HIVES Verified 09/08/21 08:34 Antibiotics) tazobactam Allergy Intermediate RASH Verified 09/08/21 08:34 aztreonam Allergy Unknown unknown Verified 09/08/21 08:34 metoclopramide [From Reglan] AdvReac Mild lethargy Verified 09/08/21 08:34 Consultations 09/06/21 00:43 ED Decision to Admit Stat 09/06/21 07:02 Consult General Surgery Routine 09/06/21 08:51 Consult Infectious Diseases Routine 09/10/21 16:35 Consult Gastroenterology Routine 09/23/21 14:28 Consult Urology Routine Procedures Performed Operation Date: 09/06/21 12:00 Actual Procedures p Incision and Drainage and Debridement Sacral Tissue Down to Bone, 15cm x 11cm - Agusto Chaudhry DO Operation Date: 09/08/21 07:00 Actual Procedures p Excisional Debridement of Sacral Decubitus Ulcer Down to Bone, [id number] (Not Applicable) - Agusto Chaudhry DO Operation Date: 09/08/21 08:00 <No data on this case meets the specified criteria> Operation Date: 09/16/21 11:15 Actual Procedures p Incisional Debridement of Sacral Ulcer down to Muscle Level 14cm x 11cm(Not Applicable) - Agusto Chaudhry DO Ordered Studies 09/05/21 22:53 CT abd pelvis IV con only Stat Hospital Course (1) Osteomyelitis: (2) Severe sepsis: (3) Sacral decubitus ulcer, stage IV: 60 M w/ PMH of chronic sacral decubitus wound s/p recent debridement, 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 Purulent drainage from sacral wound soaking dressings as per his . Patient with loose stools as per . No headache/chest pain/SOA/abdominal pain. Pt non smoker and no chronic intake of alcohols.Pt on 2L O2 at night at home. Of note, patient was in [facility] August 24-2020--> sacral decubitus s/p debridement where wound culture grew MDR Pseudomonas and Enterococcus faecalis. Per , debridement not deep enough due to elevated INR at the time of surgery per Surgeon. Patient had concerns about draining wounds with intermittent bleeding at time of discharge from [facility] 2 days ago. He was managed for the following: (1) Severe sepsis: Infected sacral wound causing severe sepsis on admission-resuscitated. Source control performed ~ 09/06/21-->Incision and Drainage and Debridement Sacral Tissue Down to Bone, 15cm x 11cm - Agusto Chaudhry DO Operative cultures sent: 09/06 buttock culture: E. Faecium VRE, Jocelyn albicans/dubliniensis, Pseudomonas: multidrug resistant, E.faecium sensitive to Dapto 09/06 sacrum wound culture: E Faecium VRE, Jocelyn albicans/dubliniensis ~ 09/08/21 ---> Revision I&D of the sacral decubitus ulcer by Agusto Weeks, ~09/16/21 --> s/p Excisional Debridement of Sacral Ulcer down to Muscle Level 15cm x 11cm(Not Applicable) - Agusto Chaudhry, He remains on IV antibiotics and antifungals per ID. Per surgery on wound VAC. Patient being discharged to [facility], will need to follow-up with wound care and surgery and ID and PCP. (2) Sacral decubitus ulcer, stage IV: plan as above. (3) Osteomyelitis: Per ID, Daptomycin, ceftazidime/Avibactam, caspofungin times total of 6 weeks Daptomycin started September 06, 2021 Ceftazidime/avibactam started September 11, 2021 Caspofungin started September 11, 2021 f/u with ID and outpatient wound care. PICC in place. During therapy, CK, CMP and CBC with differential weekly. Obtain CRP weekly until 2 months after stopping therapy. (4) Quadriplegia: Plan: Chronic, bedbound. Turn every 2, utilize therapy (Envella) bed. (5) DM type 2 (diabetes mellitus, type 2): Plan: Reasonable control, is being discharged on prior home regimen. (6) Nocturnal hypoxia: Plan: Patient utilizes oxygen while sleeping (7) Neurogenic bladder: Plan: Chronic indwelling Martinez present (surapubic catheter (8) Morbid obesity: (9) Current use of half-way anticoagulation: Plan: Patient on Coumadin, INR therapeutic at admission, IVC filter placed 11 years ago per patient. Warfarin restarted as ok with surgery. Titrate for goal 2-3 Holding warfarin today as INR is slightly supratherapeutic today, will need f/u with OP coumadin clinic for dose adjustment (10) Anemia: Plan: Acute on chronic anemia, Likely from acute blood loss secondary to recent procedure and chronic comorbidities. He received 1 unit pRBC on 09/06 and another unit of PRBCs on 09/10. He also received 4 units of fresh frozen plasma on 09/06. H&H stable, no indication for transfusion at this time. Iron levels reveal iron deficiency, continue iron supplementation and outpatient followup. (11) DVT prophylaxis: ON Warfarin Full code Patient being discharged to [facility] [called to signout to Over there, but I was told the doctor already left for the day] following instruction at the point of discharge : Please follow up in the wound care clinic upon discharge. [address], [address], [place] [address] #[phone] Continue daily dressing changes to sacral wound with wet-dry dakins kerlex packing, cover with dry 4x4 gauze, and ABD pad until 09/15/21, Then switch dressings to adaptic touch over bony structures, then aquacel ag, kerlix, and abx change every other day and as needed. To Right ischial wound lightly fill with aquacel ag, cover with ABD, and change every other day and as needed. Follow-up with your primary care physician within a week time. Maintain follow-up with wound care clinic. Maintain follow-up with your surgery doctor. Maintain follow-up with infectious disease doctor as an outpatient. Maintain f/u with urology for your ongoing care of suprapubic catheter. Your INR has been elevated lately, you will be switched back to your home dose of warfarin. You will need your blood work PT/INR in 3 days upon discharge and close to follow-up with Coumadin clinic to adjust your warfarin medication dose as an outpatient as discussed at the bedside. For your infected sacral decubitus wound/ulcer, you are put on total of 6 weeks of antimicrobial therapy. Daptomycin started on September 06, 2021; ceftazidime/avibactam and caspofungin started on September 11, 2021. You will need blood works [CK, CMP, CBC with differential] weekly until the therapy is done. Also you will need blood work [CRP] weekly until 2 months after stopping the therapy. Your statin has been stopped for the duration of daptomycin. Follow-up with your outpatient primary care for resuming statin after completion of daptomycin therapy. Take medications as prescribed. Total Time Total Time Spent Total Time Spent (In Minutes): 45 Discharge Plan Discharge Items Patient Disposition: Transfer Acute Care Hospital Reason For Visit: SEPSIS Discharge Diagnosis: Sacral decubitus ulcer, stage IV, infected Sacral OM Condition on Discharge: Fair Activity: Resume your previous activity Non-emergency contact: Primary Care Provider Call non-emergency contact if: you have any medication questions, your symptoms worsen and your temperature is above 101 Follow-up/Referrals: Wilder Stanford MD [Primary Care Provider] - Artemio Boyd DO [Physician] - (Date & Time 10/17/2021 9:20 AM Provider Artemio Boyd [facility] THIS IS A TELEHEALTH VIDEO APPOINTMENT. PLEASE FOLLOW THE INSTRUCTIONS PROVIDED IN YOUR EMAIL. IF YOU HAVE ANY QUESTIONS REGARDING THIS APPOINTMENT, PLEASE CALL ) Diet: Carb Consistent or DM2 Addtl Attending Provider Instructions: Please follow up in the wound care clinic upon discharge. [address], [address], [place] [address] #[phone] Continue daily dressing changes to sacral wound with wet-dry dakins kerlex packing, cover with dry 4x4 gauze, and ABD pad until 09/15/21, Then switch dressings to adaptic touch over bony structures, then aquacel ag, kerlix, and abx change every other day and as needed. To Right ischial wound lightly fill with aquacel ag, cover with ABD, and change every other day and as needed. Follow-up with your primary care physician within a week time. Maintain follow-up with wound care clinic. Maintain follow-up with your surgery doctor. Maintain follow-up with infectious disease doctor as an outpatient. Maintain f/u with urology for your ongoing care of suprapubic catheter. Your INR has been elevated lately, you will be switched back to your home dose of warfarin. You will need your blood work PT/INR in 3 days upon discharge and close to follow-up with Coumadin clinic to adjust your warfarin medication dose as an outpatient as discussed at the bedside. For your infected sacral decubitus wound/ulcer, you are put on total of 6 weeks of antimicrobial therapy. Daptomycin started on September 06, 2021; ceftazidime/avibactam and caspofungin started on September 11, 2021. You will need blood works [CK, CMP, CBC with differential] weekly until the therapy is done. Also you will need blood work [CRP] weekly until 2 months after stopping the therapy. Your statin has been stopped for the duration of daptomycin. Follow-up with your outpatient primary care for resuming statin after completion of daptomycin therapy. Take medications as prescribed. Pending Studies at Discharge: No Stand-Alone Forms: My [facility] Skilled Items Patient informed of condition?: Yes DNR: No Discharge Level of Care: Other Communicable Disease: No Discharge Prognosis: Stable Lines: Mid-Line Urinary Catheter: Yes (suprapubic cath) Medications and DC Order Prescriptions: New daptomycin 500 mg recon soln 875 mg IV Q24H 21 Days Qty: 10 RF: 0 Avycaz 2.5 gram recon soln 2.5 g IV Q8H 25 Days Qty: 75 RF: 0 caspofungin [Cancidas] 50 mg recon soln 50 mg IV DAILY 25 Days Qty: 25 RF: 0 Continued warfarin 5 mg tablet 5 mg PO 3XWK RF: 0 escitalopram oxalate 20 mg tablet 20 mg PO QAM RF: 0 Novolin 70/30 U-100 Insulin 100 unit/mL (70-30) suspension 56 unit subcut BID RF: 0 allopurinol 100 mg Tablet 100 mg PO BID RF: 0 ropinirole 1 mg Tablet 1 mg PO QID RF: 0 furosemide 40 mg Tablet 40 mg PO BID RF: 0 gabapentin 800 mg Tablet 800 mg PO BID RF: 0 ferrous gluconate 324 mg (38 mg iron) Tablet 324 mg PO QAM RF: 0 multivitamin Tablet 1 tab PO QAM RF: 0 pantoprazole 40 mg Tablet,Delayed Release (Dr/Ec) 40 mg PO QAM RF: 0 magnesium oxide 400 mg (241.3 mg magnesium) Tablet 400 mg PO BID RF: 0 baclofen 10 mg tablet 10 mg PO QID RF: 0 cyclobenzaprine 10 mg tablet 15 mg PO HS RF: 0 hyoscyamine sulfate 0.125 mg tablet 0.125 mg PO QPM RF: 0 tizanidine 4 mg tablet 4 mg PO BID RF: 0 potassium chloride 10 mEq tablet extended release 10 meq PO BIDM RF: 0 spironolactone [Aldactone] 25 mg tablet 25 mg PO QAM RF: 0 Medical Marijuana See Rx Instructions .ROUTE .COMPLEX RF: 0 methenamine hippurate 1 gram Tablet 1 g PO BID 30 Days Qty: 60 RF: 2 famotidine [Acid Lace Cutter (famotidine)] 20 mg Tablet 20 mg PO BID RF: 0 ascorbic acid (vitamin C) [Vitamin C] 500 mg Tablet 250 mg PO TID RF: 0 zinc sulfate 50 mg zinc (220 mg) Capsule 50 mg PO QDL RF: 0 bethanechol chloride 5 mg Tablet 5 mg PO TID RF: 0 Lactobacillus acidoph-L.bulgar [Floranex] 1 million cell Tablet 1 tab PO BID RF: 0 nystatin-triamcinolone 100,000-0.1 unit/g-% Cream 1 applic TOPICAL BID RF: 0 nystatin 100,000 unit/gram Powder 1 applic TOPICAL BID PRN (Reason: Rash) RF: 0 [id number] [id number]-fsdlmhv 81.6-0.12-10.8 mg Tablet 1 tab PO QPM RF: 0 Novolin R Regular U-100 Insuln 100 unit/mL Solution 1 sliding scale dose SUBCUT USEASDIRECTD RF: 0 [id number]-[id number] 3-35-2 mg Tablet 1 tab PO BID RF: 0 triamcinolone acetonide 0.1 % Cream 1 applic TOPICAL BID PRN (Reason: Rash) RF: 0 acetaminophen 500 mg Capsule 1,000 mg PO Q6H PRN (Reason: Pain) RF: 0 menthol-zinc oxide [Calmoseptine] 0.44-20.6 % Ointment 1 applic TOPICAL QID PRN (Reason: Rash) RF: 0 warfarin 7.5 mg Tablet 7.5 mg PO 4XWK RF: 0 irbesartan 75 mg tablet 75 mg PO DAILY RF: 0 metformin 1,000 mg tablet 1,000 mg PO BIDM RF: 0 Discontinued atorvastatin 40 mg tablet 40 mg PO HS RF: 0 cefdinir 300 mg capsule 300 mg PO BID RF: 0 Discharge Orders: Discharge Order (Routine); Ordered 10/02/21 Ordered By: Moisés Frazier/Other Patient Handouts: Managing Type 2 Diabetes, Special Foot [facility] for Diabetes Admission Data Admit Date/Time: 09/06/21 01:52 Attending Provider: Moisés Lazcano Admit Provider: Marlon Brandt Primary Care Provider: Wilder Stanford Other Providers: Moisés Lazcano ; Marlon Brandt ; Agusto Chaudhry ; Dereck Mejia ; Ellen Garcia ; Roque Mcgovern I. ; Casey Bell II ; Yeny Leary ; Amaury Jenkins ; Artemio Boyd ; Craft,David M. ; [facility] [place] ; David Moreno Other Interventions: Discharge Summary Assessment (RN) Last Done: 10/02/21 12:47
== END 2021-10-02 13:30 | DRG 853 ==
LOC: ED 22:33 → SUATTDRO 09-06 01:52 → EDINP 09-06 01:52 → 2S 09-06 22:44 → 2N 09-10 22:28

== ENCOUNTER 2021-12-31 13:04 | Inpatient (IN) ==
--- NOTE | 2021-12-31 13:30 | Emergency Department Note ---
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 difficile, chronic sacral decubitus wounds presenting via ambulance from his home today referred after a discussion on with his care team. Patient's home health assisting him with care as well as his of the sake mental illness. Evidently has been more fatigued and blood work yesterday with complaint today showed worsening blood cell count mostly clear. Patient states he is chronically on cefdinir to suppress any urine infections and denies issues here. Denies severe buttock pain. Patient states he felt a bit unwell but denies significant chills. Patient denies other wounds or rashes beyond the sacral wound which he fears may be getting worse again. Had multiple prior debridements including last year with Dr. Chaudhry. REVIEW OF SYSTEMS: A total of 10 review of systems was obtained and negative except as stated above in the HPI. PAST MEDICAL HISTORY: As noted above MEDICATIONS: Reviewed home medication list includes warfarin SOCIAL HISTORY: Lives at home with PHYSICAL EXAM: GENERAL: alert and oriented in no acute distress on stretcher Head: normocephalic and atraumatic EYES: No injection, discharge or icterus. NECK: Trachea midline. Supple. ENT: Mucous membranes pink and moist. LUNGS: Airway patent. No retractions. Breath sounds clear with good air entry bilaterally. HEART: Regular rate and rhythm. No chest wall tenderness ABDOMEN: Soft obese and soft nontender with a left-sided ostomy in place with brown stool. SKIN: Acyanotic, warm, dry, without rashes EXTREMITIES: Without swelling or deformities noted. NEUROLOGICAL: Awake and alert and answers questions. Weakness of the upper extremities but able to hold a pen to sign forms. Patient with limited to no use of the lower extremities. EK bpm normal sinus rhythm with right bundle branch block. Some diffuse T wave inversions noted with a QTC of 532. No PVC noted. No clear ST segment elevation appreciated. CONTINUOUS CARDIAC MONITORING: was ordered and showed a heart rate of 80s-110s bpm in normal sinus rhythm to sinus tachycardia Patient's laboratory studies and imaging reviewed. Differential includes Infection, dehydration, metabolic abnormality, hypo/hyperglycemia, electrolyte disturbance, anemia, hypoxia, cardiac sources, intracerebral event, toxicologic, neurologic, as well as other pathologies. IMPRESSION/MEDICAL DECISION MAKING: Patient resents with some increased fatigue currently on prophylactic cefdinir for history of UTIs with worsened white blood cell count to 15 today from blood work obtained yesterday by home health. Patient's only identifiable source of concern is sacral decubitus wound. History of multiple debridements here and resistant infections in the past. Patient denies severe pain here. They have been bandaging the area. Denies significant abdominal pain otherwise and states his ostomy is working fine. Patient not febrile tachycardic or hypoxic upon arrival. Not hypotensive. Cultures and blood work repeated here. Patient has a history of a diverting colostomy and in the perineal area there is a large roughly 6 cm sacral decubitus wound to bone. History of osteomyelitis here in the past. Last admitted with debridement by Dr. Chaudhry in September. Lab returns with elevated white blood cell count at 17.3. Stable mild anemia. CRP trending upward to 5.5. Prior microbiology reviewed with significant resistance in the past. Discussed with pharmacy and will start daptomycin at this time as well as ceftazidime/avibactam which patient was previously on. ESR and CRP again are significantly elevated. Lactate minimally elevated. Updated patient and at bedside. states that she believes patient's coming earlier than when he was sick with sepsis before in September. Given some IV fluid. Sent for CT scan of the pelvis to evaluate sacral wound. CT report indicates wound is actually appearing improved with interval resolution of abscess from the first of the year as well as improvement of the cellulitis without evidence of acute osteomyelitis in the left ischial tuberosity. Blood work however and some increased fatigue question if the infection is smoldering and started rekindled to some degree although not severe. Do not feel he needs immediate surgical attention. Discussed with the patient and . Feel further antibiotics at this time is reasonable and will discuss with the hospitalist further care here. Sample questions possible infection versus chronic colonization. Culture sent. DIAGNOSIS: Sacral decubitus ulcer and infection/cellulitis, elevated CRP and ESR DISPOSITION: Hospitalist will evaluate Patient was agreeable with this plan. Past Med/Surg History Medical History Anemia Asymptomatic bacteriuria Clostridium difficile infection (Unknown) CVA (cerebral vascular accident) DM type 2 (diabetes mellitus, type 2) Dyslipidemia Dysphagia Fever History of blood clots History of DVT (deep vein thrombosis) Hypertension Hypotension Ileus Kidney disease Leukocytosis Major depressive disorder, recurrent Obesity Occluded PICC line Positive urine culture Quadriplegia BRAIN INJURY 11 YRS AGO Seizure SIRS (systemic inflammatory response syndrome) Sleep apnea (Unknown) OXYGEN 2L/MIN NC HS Syncope 57 year old with know quadriplegia and new onset syncope with change in position UTI (urinary tract infection) RECENT [facility] ADMISION-D/C 12/06/20 Surgical History History of colonoscopy 2010 History of open reduction and internal fixation (ORIF) procedure LEFT FEMUR Insertion of inferior vena caval filter (Unknown) Lithotripsy (Unknown) "laser lithotripsy left ureteral stone 03/17/11 " S/P debridement (09/06/21) Incision and Drainage and Debridement Sacral Tissue Down to Bone, 15cm x 11cm - Agusto Chaudhry, DO 09/06/21 S/P debridement (09/08/21) Excisional Debridement of Sacral Decubitus Ulcer, [id number] Down to Bone - Agusto Chaudhry, DO 09/08/2021. Patient made ASA 4. Ketamine/versed/fentanyl sedation. Tolerated without incident. 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 No kids at home. current occupational status: disabled Feels Safe at Home: Yes Physical Activity Frequency Comment: QUADRAPLEGIA C4-5-ABLE TO MOVE ARMS, HANDS Assistive Devices: Oxygen - at Night Allergies Allergies Allergy/AdvReac Type Severity Reaction Status Date / Time codeine Allergy Severe THROAT Verified 12/31/21 14:05 SWELLS latex Allergy Intermediate Hives Verified 12/31/21 14:05 piperacillin Allergy Intermediate Hives Verified 12/31/21 14:05 Sulfa (Sulfonamide Allergy Intermediate HIVES Verified 12/31/21 14:05 Antibiotics) tazobactam Allergy Intermediate Hives Verified 12/31/21 14:05 aztreonam Allergy Unknown unknown Verified 12/31/21 14:05 corn AdvReac Intermediate ANYTHING Verified 12/31/21 14:05 MADE OF CORN CAUSES MIGRAINE HEADACHES metoclopramide [From Reglan] AdvReac Intermediate lethargy Verified 12/31/21 14:05 Home Meds Home Medications Medication Instructions Recorded Confirmed allopurinol 100 mg tablet 100 mg PO BID 05/07/18 12/31/21 ferrous gluconate 324 mg (38 mg 324 mg PO QAM 05/07/18 12/31/21 iron) tablet furosemide 40 mg tablet 40 mg PO BID 05/07/18 12/31/21 gabapentin 800 mg tablet 800 mg PO BID 05/07/18 12/31/21 magnesium oxide 400 mg (241.3 mg 400 mg PO BID 05/07/18 12/31/21 magnesium) tablet multivitamin 1 tab PO QAM 05/07/18 12/31/21 pantoprazole 40 mg tablet,delayed 40 mg PO BID 05/07/18 12/31/21 release ropinirole 1 mg tablet 1 mg PO QID 05/07/18 12/31/21 escitalopram oxalate 20 mg tablet 20 mg PO QAM tab 08/21/19 12/31/21 insulin human U-100 NPH-regulr 60 unit SUBCUT BID 08/21/19 12/31/21 70-30 mix 100 unit/mL subcutaneous susp (Novolin 70/30 U-100 Insulin) warfarin 5 mg tablet See Rx Instructions .ROUTE 08/21/19 12/31/21 .COMPLEX tab baclofen 10 mg tablet See Rx Instructions .ROUTE .COMPLEX 09/22/19 12/31/21 cyclobenzaprine 10 mg tablet 15 mg PO HS 03/01/20 12/31/21 hyoscyamine sulfate 0.125 mg tablet 0.125 mg PO QPM 03/01/20 12/31/21 potassium chloride 10 mEq 10 meq PO BIDM 03/01/20 12/31/21 tablet,extended release spironolactone 25 mg tablet 25 mg PO QAM 03/01/20 12/31/21 (Aldactone) tizanidine 4 mg tablet 4 mg PO BID 03/01/20 12/31/21 Medical Marijuana See Rx Instructions .ROUTE .COMPLEX 03/26/20 12/31/21 ascorbic acid (vitamin C) 500 mg 250 mg PO TID 12/03/20 12/31/21 tablet (Vitamin C) famotidine 20 mg tablet (Acid 20 mg PO BID 12/03/20 12/31/[address] (famotidine)) Lactobacillus acidoph-L.bulgaricus 1 tab PO BID 01/03/21 12/31/21 1 million cell tablet (Floranex) acetaminophen 500 mg capsule 1,000 mg PO Q6H PRN 01/03/21 12/31/21 insulin regular human 100 unit/mL 1 sliding scale dose SUBCUT 01/03/21 12/31/21 injection solution (Novolin R USEASDIRECTD Regular U-100 Insulin) menthol 0.44 %-zinc oxide 20.6 % 1 applic TOPICAL QID PRN 01/03/21 12/31/21 topical ointment (Calmoseptine) nystatin 100,000 unit/gram topical 1 applic TOPICAL BID PRN 01/03/21 12/31/21 powder metformin 1,000 mg tablet 1,000 mg PO BIDM 06/14/21 12/31/21 arginine 7 gram-glutamine 7 1 ea PO BID 12/31/21 12/31/21 gram-calcium HMB 1.5 gram oral powder pack (Adrien) atorvastatin 40 mg tablet 40 mg PO HS 12/31/21 12/31/21 coenzyme Q10 100 mg capsule 200 mg PO AMHS 12/31/21 12/31/21 (CoQ-10) collagenase clostridium histo. 250 1 applic TOPICAL DAILY 12/31/21 12/31/21 unit/gram topical ointment (Santyl) docusate sodium 100 mg capsule 100 mg PO AMHS 12/31/21 12/31/21 warfarin 1 mg tablet 1 mg PO [id number] 12/31/21 12/31/21 water 60 ea DAILY 12/31/21 12/31/21 zolpidem 5 mg tablet 5 mg PO HS PRN 12/31/21 12/31/21 Previous Rx's Medication Instructions Recorded methenamine hippurate 1 gram tablet 1 g PO BID 30 Days #60 tab 04/02/20 Results & Data (ED) Vital Signs Vital Signs - 24 hr 12/31/21 13:17 12/31/21 16:00 Temperature 37.0 C Temperature Source Oral Pulse Rate 65 Pulse Rate [Apical] 108 H Pulse Rhythm Regular Pulse Rhythm [Apical] Regular Pulse Strength Normal Pulse Strength [Apical] Normal Respiratory Rate 18 21 Respiratory Effort / Characteristics Non-Labored Spontaneous Respiratory Depth Normal Respiratory Pattern Regular Blood Pressure 106/64 Blood Pressure [Right Arm] 183/101 H Blood Pressure Mean 78 Blood Pressure Mean [Right Arm] 128 Blood Pressure Position Sitting Pulse Oximetry 87 L 98 Oxygen Delivery Method Room Air Nasal Cannula Oxygen Flow Rate 2 Sepsis Recent Fever Within 48 Hours No Sepsis New/Unexplained Change in Mental Status No Sepsis Action Taken by Nursing No Action Required Laboratory Data Result diagrams: 12/31/21 13:00 12/31/21 13:00 Lab Results 12/31/21 12/31/21 12/31/21 Range/Units 13:00 13:00 13:00 WBC 17.30 H (4.8-10.8) K/uL RBC 3.82 L (4.7-6.1) M/uL Hgb 9.9 L (14.0-18.0) g/dL Hct 31.9 L (42-52) % MCV 83.5 (80-100) fL MCH 25.9 (25-34) pg MCHC 31.0 L (32-36) g/dL RDW Std Deviation 56.0 H (36.4-46.3) fL RDW Coeff of Yoseph 18.4 H (11.5-14.5) % Plt Count 317 (130-400) K/uL MPV 8.9 (7.4-10.4) fL Immature Gran % (Auto) 0.3 % Neut % (Auto) 79.6 % Lymph % (Auto) 12.5 % [place] % (Auto) 4.6 % Eos % (Auto) 2.8 % Baso % (Auto) 0.2 % Neut # (Auto) 13.77 H (1.4-6.5) K/uL Lymph # (Auto) 2.16 (1.2-3.4) K/uL [place] # (Auto) 0.79 H (0.11-0.59) K/uL Eos # (Auto) 0.48 (0-0.5) K/uL Baso # (Auto) 0.04 (0-0.2) K/uL Immature Gran # (Auto) 0.06 H (0.00-0.02) K/uL ESR (0-20) mm/hr Sodium 136 (136-145) mmol/L Potassium 3.7 (3.5-5.1) mmol/L Chloride 94 L (98-107) mmol/L Carbon Dioxide 32 (21-32) mmol/L Anion Gap 10 (3-11) BUN 33 H (6-23) mg/dl Creatinine 1.25 (0.6-1.4) mg/dl Est Cr Clr Drug Dosing 87.8 ml/min Est GFR ( Amer) 71.1 ml/min Est GFR (Non-Af Amer) 61.3 ml/min BUN/Creatinine Ratio 26.4 H (10-20) Glucose 179 H (70-99(Fasting)) mg/dl Lactate (0.4-2.0) mmol/L Calcium 9.3 (8.5-10.1) mg/dl Magnesium 2.0 (1.7-2.4) mg/dl Total Bilirubin 0.4 (0.2-1.0) mg/dl AST 11 L (13-39) U/L ALT 8 (7-52) U/L Alkaline Phosphatase 46 (34-104) U/L Total Creatine Kinase 73 (30-223) U/L Troponin I High Sens 7.0 (0-20) pg/ml C-Reactive Protein 5.59 H (0-0.5) mg/dl Total Protein 7.9 (6.0-8.3) gm/dl Albumin 3.4 (3.4-5.0) gm/dl Globulin 4.5 H (2.5-4.0) gm/dl Albumin/Globulin Ratio 0.8 L (0.9-2) Procalcitonin (0-0.5) ng/ml TSH (0.300-4.500) uIu/ml Urine Color Urine Appearance (Clear) Urine pH (4.5-7.5) Ur Specific [place] (1.000-1.030) Urine Protein (Negative) Urine Glucose (UA) (Negative) Urine Ketones (Negative) Urine Blood (Negative) Urine Nitrite (Negative) Urine Bilirubin (Negative) Urine Urobilinogen (Negative) Ur Leukocyte Esterase (Negative) Urine WBC (Auto) (0-5) /hpf Urine RBC (Auto) (0-4) /hpf U Hyaline Cast (Auto) (0-5) /lpf U Epithel Cells (Auto) (0-5) /lpf Urine Bacteria (Auto) (Negative) Ur Renal Epithelial Cell Urine Yeast (None Prsent) SARS-CoV-2, RNA, NAAT (NEGATIVE) 12/31/21 12/31/21 12/31/21 Range/Units 13:00 13:00 13:00 WBC (4.8-10.8) K/uL RBC (4.7-6.1) M/uL Hgb (14.0-18.0) g/dL Hct (42-52) % MCV (80-100) fL MCH (25-34) pg MCHC (32-36) g/dL RDW Std Deviation (36.4-46.3) fL RDW Coeff of Yoseph (11.5-14.5) % Plt Count (130-400) K/uL MPV (7.4-10.4) fL Immature Gran % (Auto) % Neut % (Auto) % Lymph % (Auto) % [place] % (Auto) % Eos % (Auto) % Baso % (Auto) % Neut # (Auto) (1.4-6.5) K/uL Lymph # (Auto) (1.2-3.4) K/uL [place] # (Auto) (0.11-0.59) K/uL Eos # (Auto) (0-0.5) K/uL Baso # (Auto) (0-0.2) K/uL Immature Gran # (Auto) (0.00-0.02) K/uL ESR 123 H (0-20) mm/hr Sodium (136-145) mmol/L Potassium (3.5-5.1) mmol/L Chloride (98-107) mmol/L Carbon Dioxide (21-32) mmol/L Anion Gap (3-11) BUN (6-23) mg/dl Creatinine (0.6-1.4) mg/dl Est Cr Clr Drug Dosing ml/min Est GFR ( Amer) ml/min Est GFR (Non-Af Amer) ml/min BUN/Creatinine Ratio (10-20) Glucose (70-99(Fasting)) mg/dl Lactate 2.5 H* (0.4-2.0) mmol/L Calcium (8.5-10.1) mg/dl Magnesium (1.7-2.4) mg/dl Total Bilirubin (0.2-1.0) mg/dl AST (13-39) U/L ALT (7-52) U/L Alkaline Phosphatase (34-104) U/L Total Creatine Kinase (30-223) U/L Troponin I High Sens (0-20) pg/ml C-Reactive Protein (0-0.5) mg/dl Total Protein (6.0-8.3) gm/dl Albumin (3.4-5.0) gm/dl Globulin (2.5-4.0) gm/dl Albumin/Globulin Ratio (0.9-2) Procalcitonin (0-0.5) ng/ml TSH 12.775 H (0.300-4.500) uIu/ml Urine Color Urine Appearance (Clear) Urine pH (4.5-7.5) Ur Specific [place] (1.000-1.030) Urine Protein (Negative) Urine Glucose (UA) (Negative) Urine Ketones (Negative) Urine Blood (Negative) Urine Nitrite (Negative) Urine Bilirubin (Negative) Urine Urobilinogen (Negative) Ur Leukocyte Esterase (Negative) Urine WBC (Auto) (0-5) /hpf Urine RBC (Auto) (0-4) /hpf U Hyaline Cast (Auto) (0-5) /lpf U Epithel Cells (Auto) (0-5) /lpf Urine Bacteria (Auto) (Negative) Ur Renal Epithelial Cell Urine Yeast (None Prsent) SARS-CoV-2, RNA, NAAT (NEGATIVE) 12/31/21 12/31/21 12/31/21 Range/Units 13:00 13:55 15:02 WBC (4.8-10.8) K/uL RBC (4.7-6.1) M/uL Hgb (14.0-18.0) g/dL Hct (42-52) % MCV (80-100) fL MCH (25-34) pg MCHC (32-36) g/dL RDW Std Deviation (36.4-46.3) fL RDW Coeff of Yoseph (11.5-14.5) % Plt Count (130-400) K/uL MPV (7.4-10.4) fL Immature Gran % (Auto) % Neut % (Auto) % Lymph % (Auto) % [place] % (Auto) % Eos % (Auto) % Baso % (Auto) % Neut # (Auto) (1.4-6.5) K/uL Lymph # (Auto) (1.2-3.4) K/uL [place] # (Auto) (0.11-0.59) K/uL Eos # (Auto) (0-0.5) K/uL Baso # (Auto) (0-0.2) K/uL Immature Gran # (Auto) (0.00-0.02) K/uL ESR (0-20) mm/hr Sodium (136-145) mmol/L Potassium (3.5-5.1) mmol/L Chloride (98-107) mmol/L Carbon Dioxide (21-32) mmol/L Anion Gap (3-11) BUN (6-23) mg/dl Creatinine (0.6-1.4) mg/dl Est Cr Clr Drug Dosing ml/min Est GFR ( Amer) ml/min Est GFR (Non-Af Amer) ml/min BUN/Creatinine Ratio (10-20) Glucose (70-99(Fasting)) mg/dl Lactate (0.4-2.0) mmol/L Calcium (8.5-10.1) mg/dl Magnesium (1.7-2.4) mg/dl Total Bilirubin (0.2-1.0) mg/dl AST (13-39) U/L ALT (7-52) U/L Alkaline Phosphatase (34-104) U/L Total Creatine Kinase (30-223) U/L Troponin I High Sens (0-20) pg/ml C-Reactive Protein (0-0.5) mg/dl Total Protein (6.0-8.3) gm/dl Albumin (3.4-5.0) gm/dl Globulin (2.5-4.0) gm/dl Albumin/Globulin Ratio (0.9-2) Procalcitonin 0.15 (0-0.5) ng/ml TSH (0.300-4.500) uIu/ml Urine Color Yellow Urine Appearance Clear (Clear) Urine pH 6.0 (4.5-7.5) Ur Specific [place] 1.013 (1.000-1.030) Urine Protein Negative (Negative) Urine Glucose (UA) Negative (Negative) Urine Ketones Negative (Negative) Urine Blood Negative (Negative) Urine Nitrite Negative (Negative) Urine Bilirubin Negative (Negative) Urine Urobilinogen Negative (Negative) Ur Leukocyte Esterase 3+ H (Negative) Urine WBC (Auto) >30 H (0-5) /hpf Urine RBC (Auto) 0-4 (0-4) /hpf U Hyaline Cast (Auto) 1-5 (0-5) /lpf U Epithel Cells (Auto) >30 H (0-5) /lpf Urine Bacteria (Auto) Negative (Negative) Ur Renal Epithelial Cell Not Reportable Urine Yeast Budding A (None Prsent) SARS-CoV-2, RNA, NAAT NEGATIVE (NEGATIVE) 12/31/21 Range/Units 15:23 WBC (4.8-10.8) K/uL RBC (4.7-6.1) M/uL Hgb (14.0-18.0) g/dL Hct (42-52) % MCV (80-100) fL MCH (25-34) pg MCHC (32-36) g/dL RDW Std Deviation (36.4-46.3) fL RDW Coeff of Yoseph (11.5-14.5) % Plt Count (130-400) K/uL MPV (7.4-10.4) fL Immature Gran % (Auto) % Neut % (Auto) % Lymph % (Auto) % [place] % (Auto) % Eos % (Auto) % Baso % (Auto) % Neut # (Auto) (1.4-6.5) K/uL Lymph # (Auto) (1.2-3.4) K/uL [place] # (Auto) (0.11-0.59) K/uL Eos # (Auto) (0-0.5) K/uL Baso # (Auto) (0-0.2) K/uL Immature Gran # (Auto) (0.00-0.02) K/uL ESR (0-20) mm/hr Sodium (136-145) mmol/L Potassium (3.5-5.1) mmol/L Chloride (98-107) mmol/L Carbon Dioxide (21-32) mmol/L Anion Gap (3-11) BUN (6-23) mg/dl Creatinine (0.6-1.4) mg/dl Est Cr Clr Drug Dosing ml/min Est GFR ( Amer) ml/min Est GFR (Non-Af Amer) ml/min BUN/Creatinine Ratio (10-20) Glucose (70-99(Fasting)) mg/dl Lactate 3.0 H* (0.4-2.0) mmol/L Calcium (8.5-10.1) mg/dl Magnesium (1.7-2.4) mg/dl Total Bilirubin (0.2-1.0) mg/dl AST (13-39) U/L ALT (7-52) U/L Alkaline Phosphatase (34-104) U/L Total Creatine Kinase (30-223) U/L Troponin I High Sens (0-20) pg/ml C-Reactive Protein (0-0.5) mg/dl Total Protein (6.0-8.3) gm/dl Albumin (3.4-5.0) gm/dl Globulin (2.5-4.0) gm/dl Albumin/Globulin Ratio (0.9-2) Procalcitonin (0-0.5) ng/ml TSH (0.300-4.500) uIu/ml Urine Color Urine Appearance (Clear) Urine pH (4.5-7.5) Ur Specific [place] (1.000-1.030) Urine Protein (Negative) Urine Glucose (UA) (Negative) Urine Ketones (Negative) Urine Blood (Negative) Urine Nitrite (Negative) Urine Bilirubin (Negative) Urine Urobilinogen (Negative) Ur Leukocyte Esterase (Negative) Urine WBC (Auto) (0-5) /hpf Urine RBC (Auto) (0-4) /hpf U Hyaline Cast (Auto) (0-5) /lpf U Epithel Cells (Auto) (0-5) /lpf Urine Bacteria (Auto) (Negative) Ur Renal Epithelial Cell Urine Yeast (None Prsent) SARS-CoV-2, RNA, NAAT (NEGATIVE) Administered Medications Discontinued Medications Daptomycin 800 mg/ Syringe 16 mls @ 0 mls/min IV NOW STA; Protocol Stop: 12/31/21 14:26 Last Admin: 12/31/21 15:26 Dose: 8 mls/min Documented by: [id number] Ceftazidime/Avibactam 2.5 gm/ (Sodium Chloride) 62 mls @ 31 mls/hr IV NOW STA Stop: 12/31/21 16:28 Last Admin: 12/31/21 15:26 Dose: 31 mls/hr Documented by: [id number] Sodium Chloride (Nss) 500 mls @ 999 mls/hr IV .Q31M ONE Stop: 12/31/21 15:00 Last Admin: 12/31/21 15:04 Dose: 999 mls/hr Documented by: [id number] Ioversol (Optiray 320 125ml) 122 ml IV ONCE ONE Stop: 12/31/21 14:51 Last Admin: 12/31/21 14:50 Dose: 122 ml Documented by: [id number] Imaging Data Radiologist's Impression: Abdomen/Pelvis CT 12/31/21 13:19 CT OF THE ABDOMEN AND PELVIS WITH CONTRAST CLINICAL HISTORY: sacral wound worsening COMPARISON STUDY: CT of the abdomen and pelvis September 06, 2021. TECHNIQUE: Following IV administration of 122 mL of Optiray, axial images of the abdomen and pelvis were obtained from the lung bases to the proximal femurs. Images were reviewed in the axial, sagittal, and coronal planes. IV contrast was administered without complication. Automated exposure control was utilized for the study. A dose lowering technique was utilized adhering to the principles of ALARA. CT DOSE: 2058.93 mGy.cm FINDINGS: This exam is compromised by body wall contacting the gantry with resultant artifact. Left lower chest wall reconstruction is partially imaged. No pneumatosis, free air or portal venous gas is present. There is no biliary or pancreatic ductal dilatation. Multiple hypodense foci within the liver are nonspecific but favor focal areas of fat. The spleen, adrenal glands and pancreas are unremarkable. There is moderate bilateral renal cortical thinning. Several right renal calculi measure up to 6 mm. There are no ureteral calculi. There is no hydronephrosis. Suprapubic catheter is in place. Bladder wall thickening is similar to prior exam. Prominent retroperitoneal lymph nodes are likely benign. IVC filter is in place. Major vasculature is patent. No variant descending colostomy is noted. No evidence for a bowel obstruction. A moderate amount stool is noted within the colon and rectum. Note is again made of a deep ulcer overlying the sacrum and coccyx. The abscess shown on CT of September 06, 2021 has resolved. Associated inflammation has significantly improved. A tract extending to the right ischial tuberosity is again noted. Interval bone loss is noted within the lower sacrum and upper to mid coccyx since CT of September 06, 2021. Remaining small portion of the coccyx may be exposed. An additional deep ulcer of the left inferior buttock extending to the left ischial tuberosity is again noted. This was shown on prior exam. There is no associated abscess. Sclerosis of the adjacent bone is unchanged. There is no evidence for acute osteomyelitis at this site. IMPRESSION: 1. Redemonstration of a sacral decubitus ulcer which extends to the underlying bone. Interval resolution of the abscess shown on prior CT of September 06, 2021 and significant improvement in cellulitis. Interval bone loss involving the inferior sacrum and upper to mid coccyx since prior CT. This bone loss could be due to interval osteomyelitis or resection/debridement. Small portion of remaining coccyx may be exposed. 2. Left inferior gluteal ulcer which extends to the underlying left ischial tuberosity, similar to prior CT. No evidence for acute osteomyelitis of the left ischial tuberosity. 3. Persistent bladder wall thickening which could be correlated with urinalysis. No hydronephrosis. 4. Right-sided nephrolithiasis. 5. No bowel obstruction. ACT 112: Negative or not required by law. Electronically signed by: Sami Jacobson M.D. 12/31/2021 3:21 PM Chest X-Ray 12/31/21 13:19 XR chest 1V portable CLINICAL HISTORY: weakness TECHNIQUE: Single frontal radiograph of the chest was obtained. Comparison: Comparison is made to chest one view 09/05/2021 FINDINGS: Stable postsurgical changes. The cardiomediastinal silhouette is stable. The lungs are clear. No evidence of pleural effusion or pneumothorax. IMPRESSION: No acute chest disease. ACT 112: Negative or not required by law. Electronically signed by: Jorge Hernandez M.D. 12/31/2021 2:20 PM Discharge Plan Visit Data Chief Complaint: Illness ED Provider: Carlos Forte Discharge Problem: Sacral decubitus ulcer, stage IV, Morbid obesity, Chronic suprapubic catheter, Quadriplegia, Sepsis Patient Disposition: Being Evaluated by Hospitalist Forms Stand Alone Forms: My [facility] Prescriptions Prescriptions: No Action warfarin 5 mg tablet See Rx Instructions .ROUTE .COMPLEX RF: 0 escitalopram oxalate 20 mg tablet 20 mg PO QAM RF: 0 Novolin 70/30 U-100 Insulin 100 unit/mL (70-30) suspension 60 unit subcut BID RF: 0 allopurinol 100 mg Tablet 100 mg PO BID RF: 0 ropinirole 1 mg Tablet 1 mg PO QID RF: 0 furosemide 40 mg Tablet 40 mg PO BID RF: 0 gabapentin 800 mg Tablet 800 mg PO BID RF: 0 ferrous gluconate 324 mg (38 mg iron) Tablet 324 mg PO QAM RF: 0 multivitamin Tablet 1 tab PO QAM RF: 0 pantoprazole 40 mg Tablet,Delayed Release (Dr/Ec) 40 mg PO BID RF: 0 magnesium oxide 400 mg (241.3 mg magnesium) Tablet 400 mg PO BID RF: 0 baclofen 10 mg tablet See Rx Instructions .ROUTE .COMPLEX RF: 0 cyclobenzaprine 10 mg tablet 15 mg PO HS RF: 0 hyoscyamine sulfate 0.125 mg tablet 0.125 mg PO QPM RF: 0 tizanidine 4 mg tablet 4 mg PO BID RF: 0 potassium chloride 10 mEq tablet extended release 10 meq PO BIDM RF: 0 spironolactone [Aldactone] 25 mg tablet 25 mg PO QAM RF: 0 Medical Marijuana See Rx Instructions .ROUTE .COMPLEX RF: 0 methenamine hippurate 1 gram Tablet 1 g PO BID 30 Days Qty: 60 RF: 2 famotidine [Acid [employer] [address] (famotidine)] 20 mg Tablet 20 mg PO BID RF: 0 ascorbic acid (vitamin C) [Vitamin C] 500 mg Tablet 250 mg PO TID RF: 0 Lactobacillus acidoph-L.bulgar [Floranex] 1 million cell Tablet 1 tab PO BID RF: 0 nystatin 100,000 unit/gram Powder 1 applic TOPICAL BID PRN (Reason: Rash) RF: 0 Novolin R Regular U-100 Insuln 100 unit/mL Solution 1 sliding scale dose SUBCUT USEASDIRECTD RF: 0 acetaminophen 500 mg Capsule 1,000 mg PO Q6H PRN (Reason: Pain) RF: 0 menthol-zinc oxide [Calmoseptine] 0.44-20.6 % Ointment 1 applic TOPICAL QID PRN (Reason: Rash) RF: 0 atorvastatin 40 mg tablet 40 mg PO HS RF: 0 docusate sodium 100 mg Capsule 100 mg PO AMHS RF: 0 zolpidem 5 mg tablet 5 mg PO HS PRN (Reason: Sleep) RF: 0 Santyl 250 unit/gram ointment 1 applic TOPICAL DAILY RF: 0 warfarin 1 mg tablet 1 mg PO [id number] RF: 0 water Liquid 60 ea DAILY RF: 0 coenzyme Q10 [CoQ-10] 100 mg Capsule 200 mg PO AMHS RF: 0 Adrien 7-7-1.5 gram Powder In Packet 1 ea PO BID RF: 0 metformin 1,000 mg tablet 1,000 mg PO BIDM RF: 0 Referrals Referrals: Wilder Stanford MD [Primary Care Provider] - Discharge Problem: Sepsis Qualifiers: Sepsis type: sepsis due to unspecified organism
[2021-12-31 14:18] LABS: Basophils # (auto) 0.04 K/uL (0-0.2); Basophils % (auto) 0.2 %; C Reactive Protein 5.59 mg/dl (0-0.5); Eosinophils # (auto) 0.48 K/uL (0-0.5); Eosinophils % (auto) 2.8 %; Hematocrit (blood only) 31.9 % (42-52); Hemoglobin 9.9 g/dL (14.0-18.0); Immature Granulocytes # (auto) 0.06 K/uL (0.00-0.02); Immature Granulocytes % (auto) 0.3 %; Lymphocytes # (auto) 2.16 K/uL (1.2-3.4); Lymphocytes % (auto) 12.5 %; Mean Corpuscular Hemoglobin 25.9 pg (25-34); Mean Corpuscular Volume 83.5 fL (80-100); Mean Platelet Volume 8.9 fL (7.4-10.4); Monocytes # (auto) 0.79 K/uL (0.11-0.59); Monocytes % (auto) 4.6 %; Neutrophils # (auto) 13.77 K/uL (1.4-6.5); Neutrophils % (auto) 79.6 %; Platelet Count 317 K/uL (130-400); RDW Coefficient of Variation 18.4 % (11.5-14.5); Red Blood Count 3.82 M/uL (4.7-6.1)
--- NOTE | 2021-12-31 14:21 | XRay Report ---
XR chest 1V portable CLINICAL HISTORY: weakness TECHNIQUE: Single frontal radiograph of the chest was obtained. Comparison: Comparison is made to chest one view 09/05/2021 FINDINGS: Stable postsurgical changes. The cardiomediastinal silhouette is stable. The lungs are clear. No evid ence of pleural effusion or pneumothorax. IMPRESSION: No acute chest disease. ACT 112: Negative or not required by law. Electronically signed by: Jorge Hernandez M.D. 12/31/2021 2:20 PM
[2021-12-31] MEDS ORDERED: DAPTOmycin 800 MG in SYRINGE 0 ML IV STA (14:25)
[2021-12-31 14:29] LABS: Albumin Globulin Ratio 0.8 (0.9-2); Albumin Level 3.4 gm/dl (3.4-5.0); BUN Creatinine Ratio 26.4 (10-20); Bilirubin,Total 0.4 mg/dl (0.2-1.0); Calcium 9.3 mg/dl (8.5-10.1); Creatinine Clr Calc Pharmacy 87.8 ml/min; Est GFR (African American) 71.1 ml/min; Est GFR (Non-African American) 61.3 ml/min; Globulin 4.5 gm/dl (2.5-4.0); Potassium 3.7 mmol/L (3.5-5.1); Total Protein 7.9 gm/dl (6.0-8.3)
[2021-12-31] MEDS ORDERED: SODIUM CHLORIDE 0.9% 500 ML IV ONE (14:30)
[2021-12-31] MEDS ORDERED: OPTIRAY 320 125ml IV ONE (14:50)
--- NOTE | 2021-12-31 15:22 | CT Scan Report ---
CT OF THE ABDOMEN AND PELVIS WITH CONTRAST CLINICAL HISTORY: sacral wound worsening COMPARISON STUDY: CT of the abdomen and pelvis September 06, 2021. TECHNIQUE: Following IV administration of 122 mL of Optiray, axial images of the abdomen and pelvis w ere obtained from the lung bases to the proximal femurs. Images were reviewed in the axial, sagittal, and coronal planes. IV contrast was administered without complication. Automated exposure control w as utilized for the study. A dose lowering technique was utilized adhering to the principles of MAHI Bryson. CT DOSE: 2058.93 mGy.cm FINDINGS: This exam is compromised by body wall contacting the gantry with resultant artifact. Left l ower chest wall reconstruction is partially imaged. No pneumatosis, free air or portal venous gas is present. There is no biliary or pancreatic ductal dilatation. Multiple hypodense foci within the live r are nonspecific but favor focal areas of fat. The spleen, adrenal glands and pancreas are unremarka ble. There is moderate bilateral renal cortical thinning. Several right renal calculi measure up to 6 mm. There are no ureteral calculi. There is no hydronephrosis. Suprapubic catheter is in place. Blad isabel wall thickening is similar to prior exam. Prominent retroperitoneal lymph nodes are likely benign . IVC filter is in place. Major vasculature is patent. No variant descending colostomy is noted. No e vidence for a bowel obstruction. A moderate amount stool is noted within the colon and rectum. Note i s again made of a deep ulcer overlying the sacrum and coccyx. The abscess shown on CT of September 06 022 has resolved. Associated inflammation has significantly improved. A tract extending to the right ischial tuberosity is again noted. Interval bone loss is noted within the lower sacrum and upper to m id coccyx since CT of September 06, 2021. Remaining small portion of the coccyx may be exposed. An addit ional deep ulcer of the left inferior buttock extending to the left ischial tuberosity is again noted . This was shown on prior exam. There is no associated abscess. Sclerosis of the adjacent bone is unc hanged. There is no evidence for acute osteomyelitis at this site. IMPRESSION: 1. Redemonstration of a sacral decubitus ulcer which extends to the underlying bone. Interval resolut ion of the abscess shown on prior CT of September 06, 2021 and significant improvement in cellulitis. In terval bone loss involving the inferior sacrum and upper to mid coccyx since prior CT. This bone loss could be due to interval osteomyelitis or resection/debridement. Small portion of remaining coccyx m ay be exposed. 2. Left inferior gluteal ulcer which extends to the underlying left ischial tuberosity, similar to pr ior CT. No evidence for acute osteomyelitis of the left ischial tuberosity. 3. Persistent bladder wall thickening which could be correlated with urinalysis. No hydronephrosis. 4. Right-sided nephrolithiasis. 5. No bowel obstruction. ACT 112: Negative or not required by law. Electronically signed by: Sami Jacobson M.D. 12/31/2021 3:21 PM
[2021-12-31 15:26] LABS: Appearance Urine Clear (Clear); Bacteria Urine Automated Negative (Negative); Bilirubin Urine Negative (Negative); Blood Urine Negative (Negative); Color Urine Yellow; Epithelial Cell Urine Auto >30 /lpf (0-5); Glucose Urine UA Negative (Negative); Ketones Urine Negative (Negative); Leukocyte Esterase Urine 3+ (Negative); Nitrite Urine Negative (Negative); Protein Urine Negative (Negative); RBC Urine Automated 0-4 /hpf (0-4); Specific Gravity Urine 1.013 (1.000-1.030); Urobilinogen Urine Negative (Negative); WBC Urine Automated >30 /hpf (0-5)
--- NOTE | 2021-12-31 16:00 | History & Physical Report ---
Date of Service December 31, 2021 Assessment & Plan (1) Sacral wound: (2) Sepsis: Plan: Patient is 61 y/o M with history of MRSA/VRE/MDR Pseudomonas,sacral decubitus wounds, osteomyelitis, sepsis s/p surgical debridement in 09/2021, c/o lethargy for the past 3 days. History obtained from patient and patient's . Patient's reports past 3 days patient has been more lethargic and sleepy. Reports past 1 to 2 weeks has noted an opening to sacral area that concern underlying tunnel. In ER patient afebrile, P: 65, BP 106/64. WBC: 17, lactate 2.5--> 3.0, procalcitonin: 0.15, ESR: 123, CRP: 5.6 Chest x-ray: No acute changes CT abdomen pelvis: Redemonstration of a sacral decubitus ulcer which extends to the underlying bone. Interval resolution of the abscess shown on prior CT of September 06, 2021 and significant improvement in cellulitis. Interval bone loss involving the inferior sacrum and upper to mid coccyx since prior CT. This bone loss could be due to interval osteomyelitis or resection/debridement. Small portion of remaining coccyx may be exposed. Left inferior gluteal ulcer which extends to the underlying left ischial tuberosity, similar to prior CT. No evidence for acute osteomyelitis of the left ischial tuberosity. In ER given 500 mL NSS, daptomycin, ceftazidime/avibactam Blood cultures pending Trend lactate Continue daptomycin, ceftazidime/avibactam IVF Wound consult General surgery consult CBC, BMP in a.m. 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 Does not use CPAP Continue oxygen at bedtime History DVT s/p IVC filter on chronic anticoagulation INR: 1.7 Hold home Coumadin Start IV heparin Elevated TSH TSH: 12 Free T4 pending May be elevated secondary to acute infection Will need further follow-up outpatient Chronic anemia Hgb: 9.9. Baseline 9-10 No signs symptoms of active bleeding Continue iron supplement HTN Hold Lasix, spironolactone Dyslipidemia Hold statin while on daptomycin Obesity BMI: 45 DVT Prophylaxis On IV heparin Full code as per discussion with pt Follows with Dr Stanford for routine care Pt was seen and care coordinated with Dr Osullivan. 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 diff, HTN, HLD, DM II, chronic anemia presented to ER with c/o lethargy for the past 3 days. History obtained from patient and patient's . Patient's reports past 3 days patient has been more lethargic and sleepy. Reports has home health assisting with patient's sacral wound. Patient with history recent hospitalization 09/2021 for severe sepsis, sacral decubitus, osteomyelitis in which he underwent incisional debridement sacral tissue down to bone and was treated with IV antibiotics. Patient's reports past 1 to 2 weeks has noted an opening to sacral area that she is concerned is a tunnel. Reports intermittent yellow drainage from area. Has been checking patient's temperature and highest was 99F. Denies nausea or vomiting. reports couple days ago noticed his right hand and arm moving very rapidly which lasted less than a minute. She reports patient was awake and coherent at the time. Denies any noted tongue biting. Patient's states she believes this was a seizure as she reports she was diagnosed with seizure disorder while at [facility] in the past with similar symptoms She states patient was on Keppra however it seemed to drop off his med list upon recurrent hospitalizations. Denies any recent falls or trauma. Reports patient home left is currently broken and anca acosta has been unable to transfer to wheelchair. Denies diaphoresis, N/V, increased stool output in colostomy bag, SIERRA, dizziness, syncope, vision changes, neck pain, CP, SOB, orthopnea, palpitations, cough, sore throat, choking, otalgia, rhinorrhea, abdominal pain, increased extremity edema, rashes, change of color of urine output. Allergies Allergy/AdvReac Type Severity Reaction Status Date / Time codeine Allergy Severe THROAT Verified 12/31/21 14:05 SWELLS latex Allergy Intermediate Hives Verified 12/31/21 14:05 piperacillin Allergy Intermediate Hives Verified 12/31/21 14:05 Sulfa (Sulfonamide Allergy Intermediate HIVES Verified 12/31/21 14:05 Antibiotics) tazobactam Allergy Intermediate Hives Verified 12/31/21 14:05 aztreonam Allergy Unknown unknown Verified 12/31/21 14:05 corn AdvReac Intermediate ANYTHING Verified 12/31/21 14:05 MADE OF CORN CAUSES MIGRAINE HEADACHES metoclopramide [From Reglan] AdvReac Intermediate lethargy Verified 12/31/21 14:05 Home Medications Medication Instructions Recorded Confirmed Type allopurinol 100 mg tablet 100 mg PO BID 05/07/18 12/31/21 History ferrous gluconate 324 mg (38 mg 324 mg PO QAM 05/07/18 12/31/21 History iron) tablet furosemide 40 mg tablet 40 mg PO BID 05/07/18 12/31/21 History gabapentin 800 mg tablet 800 mg PO BID 05/07/18 12/31/21 History magnesium oxide 400 mg (241.3 mg 400 mg PO BID 05/07/18 12/31/21 History magnesium) tablet multivitamin 1 tab PO QAM 05/07/18 12/31/21 History pantoprazole 40 mg tablet,delayed 40 mg PO BID 05/07/18 12/31/21 History release ropinirole 1 mg tablet 1 mg PO QID 05/07/18 12/31/21 History escitalopram oxalate 20 mg tablet 20 mg PO QAM tab 08/21/19 12/31/21 History insulin human U-100 NPH-regulr 60 unit SUBCUT BID 08/21/19 12/31/21 History 70-30 mix 100 unit/mL subcutaneous susp (Novolin 70/30 U-100 Insulin) warfarin 5 mg tablet See Rx Instructions .ROUTE 08/21/19 12/31/21 History .COMPLEX tab baclofen 10 mg tablet See Rx Instructions .ROUTE .COMPLEX 09/22/19 12/31/21 History cyclobenzaprine 10 mg tablet 15 mg PO HS 03/01/20 12/31/21 History hyoscyamine sulfate 0.125 mg tablet 0.125 mg PO QPM 03/01/20 12/31/21 History potassium chloride 10 mEq 10 meq PO BIDM 03/01/20 12/31/21 History tablet,extended release spironolactone 25 mg tablet 25 mg PO QAM 03/01/20 12/31/21 History (Aldactone) tizanidine 4 mg tablet 4 mg PO BID 03/01/20 12/31/21 History Medical Marijuana See Rx Instructions .ROUTE .COMPLEX 03/26/20 12/31/21 History methenamine hippurate 1 gram tablet 1 g PO BID 30 Days #60 tab 04/02/20 12/31/21 Rx ascorbic acid (vitamin C) 500 mg 250 mg PO TID 12/03/20 12/31/21 History tablet (Vitamin C) famotidine 20 mg tablet (Acid 20 mg PO BID 12/03/20 12/31/21 History Still Operator (famotidine)) Lactobacillus acidoph-L.bulgaricus 1 tab PO BID 01/03/21 12/31/21 History 1 million cell tablet (Floranex) acetaminophen 500 mg capsule 1,000 mg PO Q6H PRN 01/03/21 12/31/21 History insulin regular human 100 unit/mL 1 sliding scale dose SUBCUT 01/03/21 12/31/21 History injection solution (Novolin R USEASDIRECTD Regular U-100 Insulin) menthol 0.44 %-zinc oxide 20.6 % 1 applic TOPICAL QID PRN 01/03/21 12/31/21 History topical ointment (Calmoseptine) nystatin 100,000 unit/gram topical 1 applic TOPICAL BID PRN 01/03/21 12/31/21 History powder metformin 1,000 mg tablet 1,000 mg PO BIDM 06/14/21 12/31/21 History arginine 7 gram-glutamine 7 1 ea PO BID 12/31/21 12/31/21 History gram-calcium HMB 1.5 gram oral powder pack (Adrien) atorvastatin 40 mg tablet 40 mg PO HS 12/31/21 12/31/21 History cefdinir 300 mg capsule 300 mg PO BID 12/31/21 12/31/21 History coenzyme Q10 100 mg capsule 200 mg PO AMHS 12/31/21 12/31/21 History (CoQ-10) collagenase clostridium histo. 250 1 applic TOPICAL DAILY 12/31/21 12/31/21 History unit/gram topical ointment (Santyl) docusate sodium 100 mg capsule 100 mg PO AMHS 12/31/21 12/31/21 History warfarin 1 mg tablet 1 mg PO [id number] 12/31/21 12/31/21 History water 60 ea DAILY 12/31/21 12/31/21 History zolpidem 5 mg tablet 5 mg PO HS PRN 12/31/21 12/31/21 History Past Med/Surg History Medical History Anemia Asymptomatic bacteriuria Clostridium difficile infection (Unknown) CVA (cerebral vascular accident) DM type 2 (diabetes mellitus, type 2) Dyslipidemia Dysphagia Fever History of blood clots History of DVT (deep vein thrombosis) Hypertension Hypotension Ileus Kidney disease Leukocytosis Major depressive disorder, recurrent Obesity Occluded PICC line Positive urine culture Quadriplegia BRAIN INJURY 11 YRS AGO Seizure SIRS (systemic inflammatory response syndrome) Sleep apnea (Unknown) OXYGEN 2L/MIN NC HS Syncope 57 year old with know quadriplegia and new onset syncope with change in position UTI (urinary tract infection) [facility] ADMISION-D/C 12/06/20 Surgical History History of colonoscopy 2010 History of open reduction and internal fixation (ORIF) procedure LEFT FEMUR Insertion of inferior vena caval filter (Unknown) Lithotripsy (Unknown) "laser lithotripsy left ureteral stone 03/17/11 " S/P debridement (09/06/21) Incision and Drainage and Debridement Sacral Tissue Down to Bone, 15cm x 11cm - Agusto Chaudhry, DO 09/06/21 S/P debridement (09/08/21) Excisional Debridement of Sacral Decubitus Ulcer, [id number] Down to Bone - Agusto Chaudhry, 09/08/2021. Patient made ASA 4. Ketamine/versed/fentanyl sedation. Tolerated without incident. S/P debridement S/P knee surgery S/P tonsillectomy Suprapubic cystostomy (Unknown) IN PLACE Family History (Updated 12/31/21 @ 17:37 by Kath Colmenares PA-C) Mother Family history of diabetes mellitus Father Family hx of colon cancer Other No pertinent family history Social History Smoking Status: Never smoker Second Hand Exposure: No; Hx Alcohol Use: No Hx Substance Use: No Preferred Language: Algerian Communication Ability: Effective Visual Impairment: No Limitations Farm Advisor Required: No Beliefs That Will Affect Care: None marital status: Current Living Situation: Spouse Current Living Situation Comment: Lives with - has care nurse 5x/week, 29/03 caregivers current occupational status: disabled Other Information That Helps Us Care for You: No Feels Safe at Home: Yes Safety Concerns: Feels Safe At This Time Physical Activity Frequency Comment: QUADRAPLEGIA C4-5-ABLE TO MOVE ARMS, HANDS Assistive Devices: Glasses, Oxygen - at Night and Wheelchair Review of Systems Review of Systems: All systems reviewed & are unremarkable except as noted in HPI & below Physical Exam Physical Exam: General: no distress, obese Head: normocephalic, atraumatic Eyes: PERRL, EOM's intact, conjunctiva non-injected, anicteric ENT: normal inspection external ears, nose, mucous membranes moist Neck: supple, trachea midline Lungs: clear, no respiratory distress, no wheezing/rhonchi/rales CV: RRR, no murmur, trace pretibial edema Abd: protuberant, normal BS, soft, non-tender Ext: no cyanosis, some movement of bilateral hands and arms, BLE paralysis, +intermittent spasm noted LLE, no other extremity abnormal movements noted Neuro: Sleeping upon initial exam, awakens to voice, O x 3, normal affect Skin: warm, dry; sacral wound Results & Data Results & Data ([facility]) Vital Signs (Past 12 Hours) Vital Signs Temp Pulse Resp BP Pulse Ox 12/31/21 13:17 37.0 C 65 18 106/64 87 L Laboratory Results Short CBC 12/31/21 Range/Units 13:00 WBC 17.30 H (4.8-10.8) K/uL Hgb 9.9 L (14.0-18.0) g/dL Hct 31.9 L (42-52) % Plt Count 317 (130-400) K/uL BMP 12/31/21 13:00 Sodium 136 Potassium 3.7 Chloride 94 L Carbon Dioxide 32 BUN 33 H Creatinine 1.25 Glucose 179 H Calcium 9.3 Cardiac Enzymes 12/31/21 Range/Units 13:00 Total Creatine Kinase 73 (30-223) U/L Liver Function 12/31/21 Range/Units 13:00 Total Bilirubin 0.4 (0.2-1.0) mg/dl AST 11 L (13-39) U/L ALT 8 (7-52) U/L Alkaline Phosphatase 46 (34-104) U/L Albumin 3.4 (3.4-5.0) gm/dl Urine 12/31/21 Range/Units 15:02 Urine Color Yellow Urine Appearance Clear (Clear) Urine pH 6.0 (4.5-7.5) Ur Specific [place] 1.013 (1.000-1.030) Urine Protein Negative (Negative) Urine Glucose (UA) Negative (Negative) Diagnostic Findings Abdomen/Pelvis CT 12/31/21 13:19 CT OF THE ABDOMEN AND PELVIS WITH CONTRAST CLINICAL HISTORY: sacral wound worsening COMPARISON STUDY: CT of the abdomen and pelvis September 06, 2021. TECHNIQUE: Following IV administration of 122 mL of Optiray, axial images of the abdomen and pelvis were obtained from the lung bases to the proximal femurs. Images were reviewed in the axial, sagittal, and coronal planes. IV contrast was administered without complication. Automated exposure control was utilized for the study. A dose lowering technique was utilized adhering to the principles of ALARA. CT DOSE: 2058.93 mGy.cm FINDINGS: This exam is compromised by body wall contacting the gantry with resultant artifact. Left lower chest wall reconstruction is partially imaged. No pneumatosis, free air or portal venous gas is present. There is no biliary or pancreatic ductal dilatation. Multiple hypodense foci within the liver are nonspecific but favor focal areas of fat. The spleen, adrenal glands and pancreas are unremarkable. There is moderate bilateral renal cortical thinning. Several right renal calculi measure up to 6 mm. There are no ureteral calculi. There is no hydronephrosis. Suprapubic catheter is in place. Bladder wall thickening is similar to prior exam. Prominent retroperitoneal lymph nodes are likely benign. IVC filter is in place. Major vasculature is patent. No variant descending colostomy is noted. No evidence for a bowel obstruction. A moderate amount stool is noted within the colon and rectum. Note is again made of a deep ulcer overlying the sacrum and coccyx. The abscess shown on CT of September 06, 2021 has resolved. Associated inflammation has significantly improved. A tract extending to the right ischial tuberosity is again noted. Interval bone loss is noted within the lower sacrum and upper to mid coccyx since CT of September 06, 2021. Remaining small portion of the coccyx may be exposed. An additional deep ulcer of the left inferior buttock extending to the left ischial tuberosity is again noted. This was shown on prior exam. There is no associated abscess. Sclerosis of the adjacent bone is unchanged. There is no evidence for acute osteomyelitis at this site. IMPRESSION: 1. Redemonstration of a sacral decubitus ulcer which extends to the underlying bone. Interval resolution of the abscess shown on prior CT of September 06, 2021 and significant improvement in cellulitis. Interval bone loss involving the inferior sacrum and upper to mid coccyx since prior CT. This bone loss could be due to interval osteomyelitis or resection/debridement. Small portion of remaining coccyx may be exposed. 2. Left inferior gluteal ulcer which extends to the underlying left ischial tuberosity, similar to prior CT. No evidence for acute osteomyelitis of the left ischial tuberosity. 3. Persistent bladder wall thickening which could be correlated with urinalysis. No hydronephrosis. 4. Right-sided nephrolithiasis. 5. No bowel obstruction. ACT 112: Negative or not required by law. Electronically signed by: Sami Jacobson M.D. 12/31/2021 3:21 PM Chest X-Ray 12/31/21 13:19 XR chest 1V portable CLINICAL HISTORY: weakness TECHNIQUE: Single frontal radiograph of the chest was obtained. Comparison: Comparison is made to chest one view 09/05/2021 FINDINGS: Stable postsurgical changes. The cardiomediastinal silhouette is stable. The lungs are clear. No evidence of pleural effusion or pneumothorax. IMPRESSION: No acute chest disease. ACT 112: Negative or not required by law. Electronically signed by: Jorge Hernandez M.D. 12/31/2021 2:[address] 12/31/21 16:57 CT OF THE HEAD WITHOUT CONTRAST CLINICAL HISTORY: possible seizure like activity COMPARISON STUDY: Head CT June 24, 2021. CT DOSE: 884.08 mGy.cm TECHNIQUE: Helical axial images of the head were obtained without IV contrast. Automated exposure control was utilized for the study. A dose lowering technique was utilized adhering to the principles of ALARA. FINDINGS: No acute intracranial hemorrhage, midline shift or mass effect is present. Sensitivity for detection of acute hemorrhage is slightly diminished given intravascular contrast from recent enhanced CT. Hypodensity within the right matter of the left frontal lobe is unchanged. Ventricular system is normal. Basal cisterns are patent. There are no extra-axial collections. No findings to suggest acute dural sinus thrombosis or acute territorial infarct. Ossification along the posterior falx is incidentally noted. There is no calvarial fracture. IMPRESSION: No acute intracranial findings. No change in appearance of the brain. ACT 112: Negative or not required by law. Electronically signed by: Sami Jacobson M.D. 12/31/2021 5:31 PM Supervising Physician Co-Signing Physician Notes Patient is a 61-year-old male with multiple comorbidities presents with history of worsening lethargy, increased sleepiness since 3 days duration. Patient's family reports noticing an opening of sacral wound for the past 1 to 2 weeks and had clear to yellowish discharge. He was noted to have fever as well. Patient family also reports noticing" focal seizure" like episode 2 days ago. She states that patient was at [facility] with similar symptoms and was diagnosed to have seizure disorder and was started on Keppra but currently off medication given inability to follow-up with neurology as outpatient. Please review HPI for complete details of presentation. Patient was hypoxic in high 80s on room air while in ED. Oxygen saturations improved with 2 L supplemental oxygen. Blood work suggestive of leukocytosis 17 point 3K, chronic anemia hemoglobin 9.9, INR subtherapeutic 1.7, lactate elevated at 2.5, glucose 179, TSH elevated 12.7, normal free T4 levels. Urinalysis abnormal noted. CT head showed no acute intracranial findings. Noted hypodensity within the white matter of the left frontal lobe which is unchanged from prior imaging. Chest x- ray showed no acute process. CT abdomen showed sacral decubitus ulcer which extends to the underlying bone. Interval resolution of the abscess and significant improvement in cellulitis. Interval bone loss involving the inferior sacrum and upper to mid coccyx since prior CT. Left inferior gluteal ulcer which extends to the underlying left ischial tuberosity similar to prior CT. Right-sided nephrolithiasis noted. On exam patient is morbidly obese, no apparent distress, normocephalic atraumatic, EOMI, normal breath sounds, clear to auscultation, S1-S2, tachycardic, no murmur, trace pedal edema, abdomen soft, nontender, protuberant,+ colostomy, bilateral lower extremity paralysis, left upper extremity paresis. Alert, awake, oriented. Patient is admitted for management of sepsis likely secondary to sacral wound infection. Given history of multi drug-resistant infections, will start on broad-spectrum antibiotics with daptomycin, Avycaz. Consulted general surgery for possible intervention. Hold warfarin and start on IV heparin given subtherapeutic INR, need for possible procedure. Wound care consulted. Blood and urine cultures obtained. Trend lactate levels. IV fluids. Consult neurology to rule out seizure disorder. EEG requested. We will consider starting on Keppra as able. Agree with obtaining old records from [facility] for further clarification of seizure disorder. I personally reviewed the record. Patient is interviewed and examined at bedside. Patient's care is coordinated with Kath Ledbetter. Please refer to the documentation above for details of patient's presentation and for discussion of other issues. (1) Sepsis Sepsis type: sepsis due to unspecified organism
[2021-12-31 16:05] LABS: Thyroid Stimulating Hormone 12.775 uIu/ml (0.300-4.500)
[2021-12-31 16:39] LABS: T4 Free Thyroxine 0.61 ng/dl (0.61-1.60)
[2021-12-31] MEDS ORDERED: CONSULT PHARMACY STA ×2 (17:02→20:28)
--- NOTE | 2021-12-31 17:11 | Electrocardiogram Report ---
Test Reason : Blood Pressure : / mmHG Vent. Rate : 095 BPM Atrial Rate : 095 BPM P-R Int : 162 ms QRS Dur : 146 ms QT Int : 424 ms P-R-T Axes : 070 -09 -11 degrees QTc Int : 532 ms Poor data quality, interpretation may be adversely affected Normal sinus rhythm Right bundle branch block T wave abnormality, consider lateral ischemia Abnormal ECG When compared with ECG of 13-SEP-2021 13:43, Borderline criteria for Inferior infarct are no longer Present QT has lengthened Confirmed by Jose Alfredo Courtney ([id number]) on 12/31/2021 5:11:13 PM Referred By: Confirmed By:Jose Alfredo Courtney
--- NOTE | 2021-12-31 17:34 | CT Scan Report ---
CT OF THE HEAD WITHOUT CONTRAST CLINICAL HISTORY: possible seizure like activity COMPARISON STUDY: Head CT June 24, 2021. CT DOSE: 884.08 mGy.cm TECHNIQUE: Helical axial images of the head were obtained without IV contrast. Automated exposure con trol was utilized for the study. A dose lowering technique was utilized adhering to the principles o f ALARA. FINDINGS: No acute intracranial hemorrhage, midline shift or mass effect is present. Sensitivity for detection of acute hemorrhage is slightly diminished given intravascular contrast from recent enhance d CT. Hypodensity within the right matter of the left frontal lobe is unchanged. Ventricular system i s normal. Basal cisterns are patent. There are no extra-axial collections. No findings to suggest acu te dural sinus thrombosis or acute territorial infarct. Ossification along the posterior falx is inci dentally noted. There is no calvarial fracture. IMPRESSION: No acute intracranial findings. No change in appearance of the brain. ACT 112: Negative or not required by law. Electronically signed by: Sami Jacobson M.D. 12/31/2021 5:31 PM
[2021-12-31] MEDS ORDERED: GLUCOSE 40% GEL 15 GM TUBE PO PRN (18:40)
[2021-12-31] MEDS ORDERED: GLUCOSE 10 TABS/TUBE PO PRN (18:40)
[2021-12-31] MEDS ORDERED: PHARMACY GLYCEMIC MGMT CONSULT PRN (18:40)
[2021-12-31] MEDS ORDERED: DEXTROSE 50% 50 ML SYRINGE IV PRN (18:40)
[2021-12-31] MEDS ORDERED: ACETAMINOPHEN 325 MG TAB PO PRN (18:40)
[2021-12-31] MEDS ORDERED: ONDANSETRON INJ 2 MG/ML 2 ML VIAL IV PRN (18:40)
[2021-12-31] MEDS ORDERED: CARBOHYDRATES FOR HYPOGLYCEMIA PO PRN (18:40)
[2021-12-31] MEDS ORDERED: GLUCAGON FOR INJ 1 MG VIAL SQ PRN (18:40)
[2021-12-31 20:08] LABS: INR 1.7 (0.9-1.1); Partial Thromboplastin Ratio 1.6; Partial Thromboplastin Time 44.9 Seconds (21.0-31.0); Prothrombin Time 17.8 Seconds (9.0-12.0)
[2021-12-31] MEDS ORDERED: [UNRECOGNIZED DRUG - OTHER] PRN (20:37)
[2021-12-31] MEDS ORDERED: ARGININE GLUTAMINE CALCIUM HMB PO SCH (21:00)
[2021-12-31] MEDS ORDERED: INSULIN HUMAN 70% NPH/30% REGULAR SQ SCH (21:00)
[2021-12-31] MEDS ORDERED: Heparin IV Adult Wt-Based Standard *NO* Bolus Protocol IV SCH (21:00)
[2021-12-31] MEDS: SODIUM CHLORIDE 0.9% 1000ML 1,000 ML IV SCH (21:13)
[2021-12-31] MEDS: BACLOFEN 10 MG TAB PO SCH (21:20)
[2021-12-31] MEDS: ASCORBIC ACID 500 MG TAB PO SCH (21:25)
[2021-12-31] MEDS: DOCUSATE SODIUM 100 MG CAP PO SCH (21:27)
[2021-12-31] MEDS: allopurinoL 100 MG TAB PO SCH (21:27)
[2021-12-31] MEDS: LACTOBACILLUS ACIDOPHILUS 1 GM PACK PO SCH (21:28)
[2021-12-31] MEDS: PANTOprazole 40 MG TAB PO SCH (21:29)
[2021-12-31] MEDS: GABAPENTIN 800 MG TAB PO SCH (21:29)
[2021-12-31] MEDS: HYOSCYAMINE SULFATE 0.125 MG TAB PO SCH (21:30)
--- NOTE | 2021-12-31 21:34 | Surgery Consultation ---
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 diff, HTN, HLD, DM II, chronic anemia presented to ER with c/o lethargy for the past 3 days. History obtained from patient and patient's . Patient's reports past 3 days patient has been more lethargic and sleepy. Reports has home health assisting with patient's sacral wound. Patient with history recent hospitalization 09/2021 for severe sepsis, sacral decubitus, osteomyelitis in which he underwent incisional debridement sacral tissue down to bone and was treated with IV antibiotics. Patient's reports past 1 to 2 weeks has noted an opening to sacral area that she is concerned is a tunnel. Reports intermittent yellow drainage from area. Has been checking patient's temperature and highest was 99F. Denies nausea or vomiting. reports couple days ago noticed his right hand and arm moving very rapidly which lasted less than a minute. She reports patient was awake and coherent at the time. Denies any noted tongue biting. Patient's states she believes this was a seizure as she reports she was diagnosed with seizure disorder while at [facility] in the past with similar symptoms She states patient was on Keppra however it seemed to drop off his med list upon recurrent hospitalizations. Denies any recent falls or trauma. Reports patient home left is currently broken and patient has been unable to transfer to wheelchair. Denies diaphoresis, N/V, increased stool output in colostomy bag, SIERRA, dizziness, syncope, vision changes, neck pain, CP, SOB, orthopnea, palpitations, cough, sore throat, choking, otalgia, rhinorrhea, abdominal pain, increased extremity edema, rashes, change of color of urine output. I ( Jazzmine Munoz MD ) got a call for consult sacral ulcer wound, I reviewed pt's H/P, labs with pt, Allergies Allergy/AdvReac Type Severity Reaction Status Date / Time codeine Allergy Severe THROAT Verified 12/31/21 14:05 SWELLS latex Allergy Intermediate Hives Verified 12/31/21 14:05 piperacillin Allergy Intermediate Hives VerifiedB 12/31/21 14:05 Sulfa (Sulfonamide Allergy Intermediate HIVES Verified 12/31/21 14:05 Antibiotics) tazobactam Allergy Intermediate Hives Verified 12/31/21 14:05 aztreonam Allergy Unknown unknown Verified 12/31/21 14:05 corn AdvReac Intermediate ANYTHING Verified 12/31/21 14:05 MADE OF CORN CAUSES MIGRAINE HEADACHES metoclopramide [From Reglan] AdvReac Intermediate lethargy Verified 12/31/21 14:05 Home Medications Medication Instructions Recorded Confirmed Type allopurinol 100 mg tablet 100 mg PO BID 05/07/18 12/31/21 Histo ry ferrous gluconate 324 mg (38 mg 324 mg PO QAM 05/07/18 12/31/21 History iron) tablet furosemide 40 mg tablet 40 mg PO BIDA 05/07/18 12/31/21 History gabapentin 800 mg tablet 800 mg PO BID 05/07/18 12/31/21 Histor y magnesium oxide 400 mg (241.3 mg 400 mg PO BID 05/07/18 2 History magnesium) tablet multivitamin 1 tab PO QAM 05/07/18 12/31/21 History pantoprazole 40 mg tablet,delayed 40 mg PO BID 05/07/18 History release ropinirole 1 mg tablet 1 mg PO QID 05/07/18 12/31/21 History escitalopram oxalate 20 mg tablet 20 mg PO QAM tab 08/21/19 History insulin human U-100 NPH-regulr 60 unit SUBCUT BID 08/21/19 12/31/21 History 70-30 mix 100 unit/mL subcutaneous susp (Novolin 70/30 U-100 Insulin) warfarin 5 mg tablet See Rx Instructions .ROUTE 08/21/19 History .COMPLEX tab baclofen 10 mg tablet See Rx Instructions .ROUTE .COMPLEX 09/22/19 12/31/21 History cyclobenzaprine 10 mg tablet 15 mg PO HS 03/01/20 12/31/21 Hi story hyoscyamine sulfate 0.125 mg tablet 0.125 mg PO QPM 03/01/20/03/27 History potassium chloride 10 mEq 10 meq PO BIDM 03/01/20 12/31/21 Histo ry tablet,extended release spironolactone 25 mg tablet 25 mg PO QAM 03/01/20 12/31/21 His tory (Aldactone) tizanidine 4 mg tablet 4 mg PO BID 03/01/20 12/31/21 History Medical Marijuana See Rx Instructions .ROUTE .COMPLEX 03/26/20 12/31/21 History methenamine hippurate 1 gram tablet 1 g PO BID 30 Days #60 tab 04/02/20 12/31/21 Rx ascorbic acid (vitamin C) 500 mg 250 mg PO TID 12/03/20 2 History tablet (Vitamin C) famotidine 20 mg tablet (Acid 20 mg PO BID 12/03/20 12/31/21 H istory Qc Manager (famotidine)) Lactobacillus acidoph-L.bulgaricus 1 tab PO BID 01/03/2112/31 History 1 million cell tablet (Floranex) acetaminophen 500 mg capsule 1,000 mg PO Q6H PRN 01/03/21 12/31/21 Hi story insulin regular human 100 unit/mL 1 sliding scale dose SUBCUT 01/03/21 12/31/21 History injection solution (Novolin R USEASDIRECTD Regular U-100 Insulin) menthol 0.44 %-zinc oxide 20.6 % 1 applic TOPICAL QID PRN 01/03/21 History topical ointment (Calmoseptine) nystatin 100,000 unit/gram topical 1 applic TOPICAL BID PRN 01/03/21 12/31/21 History powder metformin 1,000 mg tablet 1,000 mg PO BIDM 06/14/21 12/31/21 Histo ry arginine 7 gram-glutamine 7 1 ea PO BID 12/31/21 12/31/21 His tory gram-calcium HMB 1.5 gram oral powder pack (Adrien) atorvastatin 40 mg tablet 40 mg PO HS 12/31/21 12/31/21 Histo ry cefdinir 300 mg capsule 300 mg PO BID 12/31/21 12/31/21 History coenzyme Q10 100 mg capsule 200 mg PO AMHS 12/31/21 12/31/21 His tory (CoQ-10) collagenase clostridium histo. 250 1 applic TOPICAL DAILY 12/31/21 History unit/gram topical ointment (Santyl) docusate sodium 100 mg capsule 100 mg PO AMHS 12/31/21 12/31/21 History warfarin 1 mg tablet 1 mg PO [id number] 12/31/21 12/31/21 History water 60 ea DAILY 12/31/21 12/31/21 History zolpidem 5 mg tablet 5 mg PO HS PRN 12/31/21 12/31/21 History Past Med/Surg History Medical History Anemia Asymptomatic bacteriuria Clostridium difficile infection (Unknown) CVA (cerebral vascular accident) DM type 2 (diabetes mellitus, type 2) Dyslipidemia Dysphagia Fever History of blood clots History of DVT (deep vein thrombosis) Hypertension Hypotension Ileus Kidney disease Leukocytosis Major depressive disorder, recurrent Obesity Occluded PICC line Positive urine culture Quadriplegia BRAIN INJURY 11 YRS AGOSeizure SIRS (systemic inflammatory response syndrome) Sleep apnea (Unknown) OXYGEN 2L/MIN NC HSSyncope 57 year old with know quadriplegia and new onset syncope with change in positionUTI (urinary tract infection) RECENT [facility]-D/C 12/06/20 Surgical History History of colonoscopy 2011History of open reduction and internal fixation (ORIF) procedure LEFT FEMURInsertion of inferior vena caval filter (Unknown) Lithotripsy (Unknown) "laser lithotripsy left ureteral stone 03/17/11 "S/P debridement (09/06/21) Incision and Drainage and Debridement Sacral Tissue Down to Bone, 15cm x 11cm - Agusto Chaudhry, 09/06/21S/P debridement (09/08/21) Excisional Debridement of Sacral Decubitus Ulcer, [id number] Down to Bone - Agusto AdelaideCb Chaudhry, DO 09/08/2021. Patient made ASA 4. Ketamine/versed/fentanyl sedation. Tolerated without incident.S/P debridement S/P knee surgery S/P tonsillectomy Suprapubic cystostomy (Unknown) IN PLACE Family History(Updated 12/31/21 @ 17:37 by Kath Colmenares PA-C) Mother Family history of diabetes mellitusFather Family hx of colon cancerOther No pertinent family history Social History Smoking Status: Never smoker Second Hand Exposure: No; Hx Alcohol Use: No Hx Substance Use: No Preferred Language: British Communication Ability: Effective Visual Impairment: No Limitations Hemmer Automatic Required: No Beliefs That Will Affect Care: None marital status: Current Living Situation: Spouse Current Living Situation Comment: Lives with - has care nurse 5x/week, 29/03 caregivers current occupational status: disabled Other Information That Helps Us Care for You: No Feels Safe at Home: Yes Safety Concerns: Feels Safe At This Time Physical Activity Frequency Comment: QUADRAPLEGIA C4-5-ABLE TO MOVE ARMS, HANDS Assistive Devices: Glasses, Oxygen - at Night and Wheelchair Review of Systems Review of Systems: All systems reviewed & are unremarkable except as noted in HPI & below Allergies Allergy/AdvReac Type Severity Reaction Status Date / Time codeine Allergy Severe THROAT Verified 12/31/21 14:05 SWELLS latex Allergy Intermediate Hives Verified 12/31/21 14:05 piperacillin Allergy Intermediate Hives Verified 12/31/21 14:05 Sulfa (Sulfonamide Allergy Intermediate HIVES Verified 12/31/21 14:05 Antibiotics) tazobactam Allergy Intermediate Hives Verified 12/31/21 14:05 aztreonam Allergy Unknown unknown Verified 12/31/21 14:05 corn AdvReac Intermediate ANYTHING Verified 12/31/21 14:05 MADE OF CORN CAUSES MIGRAINE HEADACHES metoclopramide [From Reglan] AdvReac Intermediate lethargy Verified 12/31/21 14:05 Home Medications Medication Instructions Recorded Confirmed Type allopurinol 100 mg tablet 100 mg PO BID 05/07/18 12/31/21 History ferrous gluconate 324 mg (38 mg 324 mg PO QAM 05/07/18 12/31/21 History iron) tablet furosemide 40 mg tablet 40 mg PO BID 05/07/18 12/31/21 History gabapentin 800 mg tablet 800 mg PO BID 05/07/18 12/31/21 History magnesium oxide 400 mg (241.3 mg 400 mg PO BID 05/07/18 12/31/21 History magnesium) tablet multivitamin 1 tab PO QAM 05/07/18 12/31/21 History pantoprazole 40 mg tablet,delayed 40 mg PO BID 05/07/18 12/31/21 History release ropinirole 1 mg tablet 1 mg PO QID 05/07/18 12/31/21 History escitalopram oxalate 20 mg tablet 20 mg PO QAM tab 08/21/19 12/31/21 History insulin human U-100 NPH-regulr 60 unit SUBCUT BID 08/21/19 12/31/21 History 70-30 mix 100 unit/mL subcutaneous susp (Novolin 70/30 U-100 Insulin) warfarin 5 mg tablet See Rx Instructions .ROUTE 08/21/19 12/31/21 History .COMPLEX tab baclofen 10 mg tablet See Rx Instructions .ROUTE .COMPLEX 09/22/19 12/31/21 History cyclobenzaprine 10 mg tablet 15 mg PO HS 03/01/20 12/31/21 History hyoscyamine sulfate 0.125 mg tablet 0.125 mg PO QPM 03/01/20 12/31/21 History potassium chloride 10 mEq 10 meq PO BIDM 03/01/20 12/31/21 History tablet,extended release spironolactone 25 mg tablet 25 mg PO QAM 03/01/20 12/31/21 History (Aldactone) tizanidine 4 mg tablet 4 mg PO BID 03/01/20 12/31/21 History Medical Marijuana See Rx Instructions .ROUTE .COMPLEX 03/26/20 12/31/21 History methenamine hippurate 1 gram tablet 1 g PO BID 30 Days #60 tab 04/02/20 12/31/21 Rx ascorbic acid (vitamin C) 500 mg 250 mg PO TID 12/03/20 12/31/21 History tablet (Vitamin C) famotidine 20 mg tablet (Acid 20 mg PO BID 12/03/20 12/31/21 History Qc Manager (famotidine)) Lactobacillus acidoph-L.bulgaricus 1 tab PO BID 01/03/21 12/31/21 History 1 million cell tablet (Floranex) acetaminophen 500 mg capsule 1,000 mg PO Q6H PRN 01/03/21 12/31/21 History insulin regular human 100 unit/mL 1 sliding scale dose SUBCUT 01/03/21 12/31/21 History injection solution (Novolin R USEASDIRECTD Regular U-100 Insulin) menthol 0.44 %-zinc oxide 20.6 % 1 applic TOPICAL QID PRN 01/03/21 12/31/21 History topical ointment (Calmoseptine) nystatin 100,000 unit/gram topical 1 applic TOPICAL BID PRN 01/03/21 12/31/21 History powder metformin 1,000 mg tablet 1,000 mg PO BIDM 06/14/21 12/31/21 History arginine 7 gram-glutamine 7 1 ea PO BID 12/31/21 12/31/21 History gram-calcium HMB 1.5 gram oral powder pack (Adrien) atorvastatin 40 mg tablet 40 mg PO HS 12/31/21 12/31/21 History cefdinir 300 mg capsule 300 mg PO BID 12/31/21 12/31/21 History coenzyme Q10 100 mg capsule 200 mg PO AMHS 12/31/21 12/31/21 History (CoQ-10) collagenase clostridium histo. 250 1 applic TOPICAL DAILY 12/31/21 12/31/21 History unit/gram topical ointment (Santyl) docusate sodium 100 mg capsule 100 mg PO AMHS 12/31/21 12/31/21 History warfarin 1 mg tablet 1 mg PO [id number] 12/31/21 12/31/21 History water 60 ea DAILY 12/31/21 12/31/21 History zolpidem 5 mg tablet 5 mg PO HS PRN 12/31/21 12/31/21 History Patient History Medical History Anemia Asymptomatic bacteriuria Clostridium difficile infection (Unknown) CVA (cerebral vascular accident) DM type 2 (diabetes mellitus, type 2) Dyslipidemia Dysphagia Fever History of blood clots History of DVT (deep vein thrombosis) Hypertension Hypotension Ileus Kidney disease Leukocytosis Major depressive disorder, recurrent Obesity Occluded PICC line Positive urine culture Quadriplegia BRAIN INJURY 11 YRS AGO Seizure SIRS (systemic inflammatory response syndrome) Sleep apnea (Unknown) OXYGEN 2L/MIN NC HS Syncope 57 year old with know quadriplegia and new onset syncope with change in position UTI (urinary tract infection) RECENT [facility] ADMISION-D/C 12/06/20 Surgical History History of colonoscopy 2010 History of open reduction and internal fixation (ORIF) procedure LEFT FEMUR Insertion of inferior vena caval filter (Unknown) Lithotripsy (Unknown) "laser lithotripsy left ureteral stone 03/17/11 " S/P debridement (09/06/21) Incision and Drainage and Debridement Sacral Tissue Down to Bone, 15cm x 11cm - Agusto Chaudhry, DO 09/06/21 S/P debridement (09/08/21) Excisional Debridement of Sacral Decubitus Ulcer, [id number] Down to Bone - Agusto Chaudhry, DO 09/08/2021. Patient made ASA 4. Ketamine/versed/fentanyl sedation. Tolerated without incident. S/P debridement S/P knee surgery S/P tonsillectomy Suprapubic cystostomy (Unknown) IN PLACE Family History (Updated 12/31/21 @ 17:37 by Kath Colmenares PA-C) Mother Family history of diabetes mellitus Father Family hx of colon cancer Other No pertinent family history Social History Smoking Status: Never smoker Second Hand Exposure: No; Hx Alcohol Use: No Hx Substance Use: No Preferred Language: British Communication Ability: Effective Visual Impairment: No Limitations Hemmer Automatic Required: No Beliefs That Will Affect Care: None marital status: Current Living Situation: Spouse Current Living Situation Comment: Lives with - has care nurse 5x/week, 29/03 caregivers current occupational status: disabled Other Information That Helps Us Care for You: No Feels Safe at Home: Yes Safety Concerns: Feels Safe At This Time Physical Activity Frequency Comment: QUADRAPLEGIA C4-5-ABLE TO MOVE ARMS, HANDS Assistive Devices: Glasses, Oxygen - at Night and Wheelchair Physical Exam Constitutional: WD/WN, vitals as above Eyes: PERRL, conjunctivae normal, anicteric sclerae Neck: trachea midline, no thyromegaly Respiratory: normal respiratory effort, lungs clear to auscultation Cardiovascular: RRR, no murmur, no edema Gastrointestinal (Abdomen): soft, NT, ND, colostomy bad intact, Skin: stage IV sacral ulcer, size about 7x8cm, no necrotic tissue, no drainage drainage Neurologic: patellar DTR's 2+ bilat, sensation intact Psychiatric: A+Ox3, euthymic affect Results & Data ([facility]) Vital Signs (Past 12 Hours) Vital Signs Temp Pulse Pulse Resp BP BP Pulse Ox 12/31/21 20:27 37.3 C 105 H 18 119/70 97 12/31/21 18:40 37.2 C 105 H 20 150/87 H 98 12/31/21 17:22 105 H 18 128/69 98 12/31/21 17:00 103 H 18 98 12/31/21 16:00 108 H 21 183/101 H 98 12/31/21 13:17 37.0 C 65 18 106/64 87 L Pulse Ox 12/31/21 20:27 12/31/21 18:40 98 12/31/21 17:22 12/31/21 17:00 12/31/21 16:00 12/31/21 13:17 Laboratory Results Abnormal lab results 12/31/21 12/31/21 12/31/21 Range/Units 13:00 13:00 13:00 WBC 17.30 H (4.8-10.8) K/uL RBC 3.82 L (4.7-6.1) M/uL Hgb 9.9 L (14.0-18.0) g/dL Hct 31.9 L (42-52) % MCHC 31.0 L (32-36) g/dL RDW Std Deviation 56.0 H (36.4-46.3) fL RDW Coeff of Yoseph 18.4 H (11.5-14.5) % Neut # (Auto) 13.77 H (1.4-6.5) K/uL [place] # (Auto) 0.79 H (0.11-0.59) K/uL Immature Gran # (Auto) 0.06 H (0.00-0.02) K/uL ESR (0-20) mm/hr PT 17.8 H (9.0-12.0) Seconds INR 1.7 H (0.9-1.1) APTT 44.9 H (21.0-31.0) Seconds Chloride (98-107) mmol/L BUN (6-23) mg/dl BUN/Creatinine Ratio (10-20) Glucose (70-99(Fasting)) mg/dl POC Glucose (70-99) mg/dl Lactate (0.4-2.0) mmol/L AST (13-39) U/L C-Reactive Protein 5.59 H (0-0.5) mg/dl Globulin (2.5-4.0) gm/dl Albumin/Globulin Ratio (0.9-2) TSH (0.300-4.500) uIu/ml Ur Leukocyte Esterase (Negative) Urine WBC (Auto) (0-5) /hpf U Epithel Cells (Auto) (0-5) /lpf Urine Yeast (None Prsent) 12/31/21 12/31/21 12/31/21 Range/Units 13:00 13:00 13:00 WBC (4.8-10.8) K/uL RBC (4.7-6.1) M/uL Hgb (14.0-18.0) g/dL Hct (42-52) % MCHC (32-36) g/dL RDW Std Deviation (36.4-46.3) fL RDW Coeff of Yoseph (11.5-14.5) % Neut # (Auto) (1.4-6.5) K/uL [place] # (Auto) (0.11-0.59) K/uL Immature Gran # (Auto) (0.00-0.02) K/uL ESR (0-20) mm/hr PT (9.0-12.0) Seconds INR (0.9-1.1) APTT (21.0-31.0) Seconds Chloride 94 L (98-107) mmol/L BUN 33 H (6-23) mg/dl BUN/Creatinine Ratio 26.4 H (10-20) Glucose 179 H (70-99(Fasting)) mg/dl POC Glucose (70-99) mg/dl Lactate 2.5 H* (0.4-2.0) mmol/L AST 11 L (13-39) U/L C-Reactive Protein (0-0.5) mg/dl Globulin 4.5 H (2.5-4.0) gm/dl Albumin/Globulin Ratio 0.8 L (0.9-2) TSH 12.775 H (0.300-4.500) uIu/ml Ur Leukocyte Esterase (Negative) Urine WBC (Auto) (0-5) /hpf U Epithel Cells (Auto) (0-5) /lpf Urine Yeast (None Prsent) 12/31/21 12/31/21 12/31/21 Range/Units 13:00 15:02 15:23 WBC (4.8-10.8) K/uL RBC (4.7-6.1) M/uL Hgb (14.0-18.0) g/dL Hct (42-52) % MCHC (32-36) g/dL RDW Std Deviation (36.4-46.3) fL RDW Coeff of Yoseph (11.5-14.5) % Neut # (Auto) (1.4-6.5) K/uL [place] # (Auto) (0.11-0.59) K/uL Immature Gran # (Auto) (0.00-0.02) K/uL ESR 123 H (0-20) mm/hr PT (9.0-12.0) Seconds INR (0.9-1.1) APTT (21.0-31.0) Seconds Chloride (98-107) mmol/L BUN (6-23) mg/dl BUN/Creatinine Ratio (10-20) Glucose (70-99(Fasting)) mg/dl POC Glucose (70-99) mg/dl Lactate 3.0 H* (0.4-2.0) mmol/L AST (13-39) U/L C-Reactive Protein (0-0.5) mg/dl Globulin (2.5-4.0) gm/dl Albumin/Globulin Ratio (0.9-2) TSH (0.300-4.500) uIu/ml Ur Leukocyte Esterase 3+ H (Negative) Urine WBC (Auto) >30 H (0-5) /hpf U Epithel Cells (Auto) >30 H (0-5) /lpf Urine Yeast Budding A (None Prsent) 12/31/21 Range/Units 20:29 WBC (4.8-10.8) K/uL RBC (4.7-6.1) M/uL Hgb (14.0-18.0) g/dL Hct (42-52) % MCHC (32-36) g/dL RDW Std Deviation (36.4-46.3) fL RDW Coeff of Yoseph (11.5-14.5) % Neut # (Auto) (1.4-6.5) K/uL [place] # (Auto) (0.11-0.59) K/uL Immature Gran # (Auto) (0.00-0.02) K/uL ESR (0-20) mm/hr PT (9.0-12.0) Seconds INR (0.9-1.1) APTT (21.0-31.0) Seconds Chloride (98-107) mmol/L BUN (6-23) mg/dl BUN/Creatinine Ratio (10-20) Glucose (70-99(Fasting)) mg/dl POC Glucose 137 H (70-99) mg/dl Lactate (0.4-2.0) mmol/L AST (13-39) U/L C-Reactive Protein (0-0.5) mg/dl Globulin (2.5-4.0) gm/dl Albumin/Globulin Ratio (0.9-2) TSH (0.300-4.500) uIu/ml Ur Leukocyte Esterase (Negative) Urine WBC (Auto) (0-5) /hpf U Epithel Cells (Auto) (0-5) /lpf Urine Yeast (None Prsent)
[2021-12-31] MEDS: INSULIN ASPART PER UNIT SC SCH (21:53)
[2021-12-31] MEDS: HEPARIN SODIUM/DEXTROSE 25,000 UNITS/500 ML BAG IV SCH (21:56)
[2021-12-31] MEDS: CYCLOBENZAPRINE HCL 5 MG TAB PO SCH (23:45)
[2022-01-01] MEDS ORDERED: METHENAMINE HIPPURATE 1 GM TAB PO SCH
[2022-01-01] MEDS ORDERED: INSULIN ASPART PER UNIT SC SCH
[2022-01-01] MEDS: MAGNESIUM OXIDE 400 MG TAB PO SCH ×2 (01:23→12:08)
[2022-01-01] MEDS: rOPINIRole HCL 1 MG TABLET PO SCH ×4 (01:24→18:32)
[2022-01-01] MEDS: tiZANidine HCL 4 MG TABLET PO SCH ×2 (01:24→12:08)
[2022-01-01] MEDS: SODIUM CHLORIDE 0.9% 1000ML 1,000 ML IV SCH (05:15)
[2022-01-01 05:17] LABS: Basophils # (auto) 0.04 K/uL (0-0.2); Basophils % (auto) 0.2 %; Eosinophils # (auto) 0.39 K/uL (0-0.5); Eosinophils % (auto) 2.4 %; Hematocrit (blood only) 29.9 % (42-52); Hemoglobin 9.3 g/dL (14.0-18.0); Immature Granulocytes # (auto) 0.05 K/uL (0.00-0.02); Immature Granulocytes % (auto) 0.3 %; Lymphocytes # (auto) 2.13 K/uL (1.2-3.4); Lymphocytes % (auto) 13.3 %; Mean Corpuscular Hemoglobin 26.2 pg (25-34); Mean Corpuscular Hgb Conc 31.1 g/dL (32-36); Mean Corpuscular Volume 84.2 fL (80-100); Mean Platelet Volume 8.8 fL (7.4-10.4); Monocytes # (auto) 0.62 K/uL (0.11-0.59); Monocytes % (auto) 3.9 %; Neutrophils % (auto) 79.9 %; Platelet Count 284 K/uL (130-400); RDW Coefficient of Variation 18.2 % (11.5-14.5); RDW Standard Deviation 56.1 fL (36.4-46.3); Red Blood Count 3.55 M/uL (4.7-6.1); White Blood Count 16.03 K/uL (4.8-10.8)
[2022-01-01 05:24] LABS: INR 1.9 (0.9-1.1); Prothrombin Time 19.5 Seconds (9.0-12.0)
[2022-01-01 05:39] LABS: Partial Thromboplastin Ratio 2.5
[2022-01-01 05:41] LABS: BUN Creatinine Ratio 23.3 (10-20); Calcium 8.6 mg/dl (8.5-10.1); Creatinine Clr Calc Pharmacy 97.2 ml/min; Est GFR (African American) 77.8 ml/min; Est GFR (Non-African American) 67.1 ml/min; Potassium 3.9 mmol/L (3.5-5.1)
[2022-01-01 05:47] LABS: Partial Thromboplastin Time 68.5 Seconds (21.0-31.0)
[2022-01-01] MEDS: GABAPENTIN 800 MG TAB PO SCH ×2 (06:10→18:32)
[2022-01-01] MEDS: ASCORBIC ACID 500 MG TAB PO SCH ×3 (06:10→17:04)
[2022-01-01] MEDS: POTASSIUM CHLORIDE 10 MEQ TABCR PO SCH ×2 (08:18→17:04)
[2022-01-01] MEDS: FERROUS GLUCONATE 324 MG TAB PO SCH (08:18)
[2022-01-01] MEDS: MULTIVITAMIN TAB PO SCH (08:18)
[2022-01-01] MEDS: PANTOprazole 40 MG TAB PO SCH ×2 (08:18→21:15)
[2022-01-01] MEDS: LACTOBACILLUS ACIDOPHILUS 1 GM PACK PO SCH ×2 (08:18→21:15)
[2022-01-01] MEDS: ESCITALOPRAM OXALATE 20 MG TAB PO SCH (08:18)
[2022-01-01] MEDS: allopurinoL 100 MG TAB PO SCH ×2 (08:18→21:16)
[2022-01-01] MEDS: COLLAGENASE OINT 30 GM TUBE TOP SCH (08:19)
[2022-01-01] MEDS: DOCUSATE SODIUM 100 MG CAP PO SCH ×2 (08:19→21:16)
[2022-01-01] MEDS: BACLOFEN 10 MG TAB PO SCH ×3 (08:19→21:16)
[2022-01-01] MEDS: INSULIN ASPART PER UNIT SC SCH ×4 (08:24→21:16)
[2022-01-01] MEDS ORDERED: INSULIN HUMAN NPH SC ONE (09:30)
[2022-01-01] MEDS: HEPARIN SODIUM/DEXTROSE 25,000 UNITS/500 ML BAG IV SCH (10:35)
--- NOTE | 2022-01-01 11:43 | Neurology Consultation ---
Date of Consultation January 01, 2022 Assessment & Plan (1) Seizure-like activity: 1. jerking movement of right hand only maybe contractures 2. may repeat 72 hour EEG as an outpatient 3. LTM at [place] may be an option 4. would not start AED at this time 5. some medications may be driving the jerking 6. likely myoclonic jerks the may be induced by use of gabapentin can follow up with neurology as outpatient for further testing (2) Sacral decubitus ulcer, stage IV: Supervising Physician Co-Signing Physician Notes Patient seen and discussed with Irasema Cherry PA-C. Possible myoclonic jerk in th setting of sepsis. Would not recommend starting AED or seizure medication. If episodes become more frequent will consisder ambulatory EEG as outpatient. 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 diff, HTN, HLD, DM II, chronic anemia who presented to [facility] ER 12/31/21 with c/o lethargy for the past 3 days.For the past 3 days he has been more lethargic and sleepy.Home health has been assisting with his sacral wound. He had a recent hospitalization 09/2021 for severe sepsis, sacral decubitus, osteomyelitis in which he underwent incisional debridement sacral tissue down to bone and was treated with IV antibiotics. In the past 1 to 2 weeks there has been an opening to sacral area that she is concerned is a tunnel and has intermittent yellow drainage from area. A couple days ago his right hand and arm moving very rapidly which lasted less than a minute.He was awake and coherent at the time. feels it was a seizure and was diagnosed with seizure disorder while at [facility] in the past with similar symptoms He was on Keppra but as some point i t dropped off his med list upon recurrent hospitalizations. He has been unable to transfer to wheelchair. He had a 72 hour EEG in 2018 which was read as normal. He thinks the movement in his hand happens several times a day and only lasts several seconds. Allergies Allergy/AdvReac Type Severity Reaction Status Date / Time codeine Allergy Severe THROAT Verified 12/31/21 14:05 SWELLS latex Allergy Intermediate Hives Verified 12/31/21 14:05 piperacillin Allergy Intermediate Hives Verified 12/31/21 14:05 Sulfa (Sulfonamide Allergy Intermediate HIVES Verified 12/31/21 14:05 Antibiotics) tazobactam Allergy Intermediate Hives Verified 12/31/21 14:05 aztreonam Allergy Unknown unknown Verified 12/31/21 14:05 metoclopramide [From Reglan] AdvReac Intermediate lethargy Verified 12/31/21 14:05 Home Medications Medication Instructions Recorded Confirmed Type allopurinol 100 mg tablet 100 mg PO BID 05/07/18 12/31/21 History ferrous gluconate 324 mg (38 mg 324 mg PO QAM 05/07/18 12/31/21 History iron) tablet furosemide 40 mg tablet 40 mg PO BID 05/07/18 12/31/21 History gabapentin 800 mg tablet 800 mg PO BID 05/07/18 12/31/21 History magnesium oxide 400 mg (241.3 mg 400 mg PO BID 05/07/18 12/31/21 History magnesium) tablet multivitamin 1 tab PO QAM 05/07/18 12/31/21 History pantoprazole 40 mg tablet,delayed 40 mg PO BID 05/07/18 12/31/21 History release ropinirole 1 mg tablet 1 mg PO QID 05/07/18 12/31/21 History escitalopram oxalate 20 mg tablet 20 mg PO QAM tab 08/21/19 12/31/21 History insulin human U-100 NPH-regulr 60 unit SUBCUT BID 08/21/19 12/31/21 History 70-30 mix 100 unit/mL subcutaneous susp (Novolin 70/30 U-100 Insulin) warfarin 5 mg tablet See Rx Instructions .ROUTE 08/21/19 12/31/21 History .COMPLEX tab baclofen 10 mg tablet See Rx Instructions .ROUTE .COMPLEX 09/22/19 12/31/21 History cyclobenzaprine 10 mg tablet 15 mg PO HS 03/01/20 12/31/21 History hyoscyamine sulfate 0.125 mg tablet 0.125 mg PO QPM 03/01/20 12/31/21 History potassium chloride 10 mEq 10 meq PO BIDM 03/01/20 12/31/21 History tablet,extended release spironolactone 25 mg tablet 25 mg PO QAM 03/01/20 12/31/21 History (Aldactone) tizanidine 4 mg tablet 4 mg PO BID 03/01/20 12/31/21 History Medical Marijuana See Rx Instructions .ROUTE .COMPLEX 03/26/20 12/31/21 History methenamine hippurate 1 gram tablet 1 g PO BID 30 Days #60 tab 04/02/20 12/31/21 Rx ascorbic acid (vitamin C) 500 mg 250 mg PO TID 12/03/20 12/31/21 History tablet (Vitamin C) famotidine 20 mg tablet (Acid 20 mg PO BID 12/03/20 12/31/21 History General Internist And Physician Leader (famotidine)) Lactobacillus acidoph-L.bulgaricus 1 tab PO BID 01/03/21 12/31/21 History 1 million cell tablet (Floranex) acetaminophen 500 mg capsule 1,000 mg PO Q6H PRN 01/03/21 12/31/21 History insulin regular human 100 unit/mL 1 sliding scale dose SUBCUT 01/03/21 12/31/21 History injection solution (Novolin R USEASDIRECTD Regular U-100 Insulin) menthol 0.44 %-zinc oxide 20.6 % 1 applic TOPICAL QID PRN 01/03/21 12/31/21 History topical ointment (Calmoseptine) nystatin 100,000 unit/gram topical 1 applic TOPICAL BID PRN 01/03/21 12/31/21 History powder metformin 1,000 mg tablet 1,000 mg PO BIDM 06/14/21 12/31/21 History arginine 7 gram-glutamine 7 1 ea PO BID 12/31/21 12/31/21 History gram-calcium HMB 1.5 gram oral powder pack (Adrien) atorvastatin 40 mg tablet 40 mg PO HS 12/31/21 12/31/21 History cefdinir 300 mg capsule 300 mg PO BID 12/31/21 12/31/21 History coenzyme Q10 100 mg capsule 200 mg PO AMHS 12/31/21 12/31/21 History (CoQ-10) collagenase clostridium histo. 250 1 applic TOPICAL DAILY 12/31/21 12/31/21 History unit/gram topical ointment (Santyl) docusate sodium 100 mg capsule 100 mg PO AMHS 12/31/21 12/31/21 History warfarin 1 mg tablet 1 mg PO [id number] 12/31/21 12/31/21 History water 60 ea DAILY 12/31/21 12/31/21 History zolpidem 5 mg tablet 5 mg PO HS PRN 12/31/21 12/31/21 History Patient History Medical History Anemia Asymptomatic bacteriuria Clostridium difficile infection (Unknown) CVA (cerebral vascular accident) DM type 2 (diabetes mellitus, type 2) Dyslipidemia Dysphagia Fever History of blood clots History of DVT (deep vein thrombosis) Hypertension Hypotension Ileus Kidney disease Leukocytosis Major depressive disorder, recurrent Obesity Occluded PICC line Positive urine culture Quadriplegia BRAIN INJURY 11 YRS AGO Seizure SIRS (systemic inflammatory response syndrome) Sleep apnea (Unknown) OXYGEN 2L/MIN NC HS Syncope 57 year old with know quadriplegia and new onset syncope with change in position UTI (urinary tract infection) RECENT [facility] ADMISION-D/C 12/06/20 Surgical History History of colonoscopy 2010 History of open reduction and internal fixation (ORIF) procedure LEFT FEMUR Insertion of inferior vena caval filter (Unknown) Lithotripsy (Unknown) "laser lithotripsy left ureteral stone 03/17/11 " S/P debridement (09/06/21) Incision and Drainage and Debridement Sacral Tissue Down to Bone, 15cm x 11cm - Agusto Chaudhry, DO 09/06/21 S/P debridement (09/08/21) Excisional Debridement of Sacral Decubitus Ulcer, [id number] Down to Bone - Agusto Chaudhry, 09/08/2021. Patient made ASA 4. Ketamine/versed/fentanyl sedation. Tolerated without incident. S/P debridement S/P knee surgery S/P tonsillectomy Suprapubic cystostomy (Unknown) IN PLACE Family History (Updated 12/31/21 @ 17:37 by Kath Colmenares PA-C) Mother Family history of diabetes mellitus Father Family hx of colon cancer Other No pertinent family history Social History Smoking Status: Never smoker Second Hand Exposure: No; Hx Alcohol Use: No Hx Substance Use: No Preferred Language: Montserratian Communication Ability: Effective Visual Impairment: No Limitations Tile Sprayer Required: No Beliefs That Will Affect Care: None marital status: Current Living Situation: Spouse Current Living Situation Comment: Lives with - has care nurse 5x/week, 29/03 caregivers current occupational status: disabled Other Information That Helps Us Care for You: No Feels Safe at Home: Yes Safety Concerns: Feels Safe At This Time Physical Activity Frequency Comment: QUADRAPLEGIA C4-5-ABLE TO MOVE ARMS, HANDS Assistive Devices: Mechanical Lift, Oxygen - at Night and Wheelchair Assistive Devices Comment: Transport Van. Review of Systems Review of Systems: All systems reviewed & are unremarkable except as noted in HPI & below Physical Exam Physical Exam: Physical Exam: Constitutional: appearance nourished, healthy and obese Ears, Nose, Mouth and Throat: mucous membranes moist, no injection and skin normal, eyes normal Cardiovascular: normal S-1 and S-2 and regular rate and rhythm Respiratory: course breath sounds Musculoskeletal: mild peripheral edema, contracture in left hand 2/3/4 fingers Skin: no stigmata of neurocutaneous disease noted and normal and intact Eyes: extraocular muscles intact (EOMI) and pupils equal, round and reactive to light (PERRL) NEUROLOGIC EXAMINATION: Mental status: Alert and interactive Oriented to full date and location Oriented to person Speech fluent with no evidence of aphasia Cranial Nerves smile eye brow raise symmetric Reflexes: Deep tendon reflexes absent bilateral LE Sensory: sensory decrease in lower ext to knees Coordination: finger to nose dysmetric Gait/Stance: Posture lying in bed. Motor: minimal movement in upper ext Strength: hand soda tester 4/5, hip flex 0/5 Constitutional: . Results & Data ([facility]) Vital Signs (Past 12 Hours) Vital Signs Temp Pulse Pulse Resp BP Pulse Ox 01/01/22 10:45 92 H 01/01/22 07:11 37.2 C 86 19 112/66 97 01/01/22 03:45 37.2 C 90 20 106/69 96 12/31/21 23:44 37.4 C 109 H 20 109/71 97 Laboratory Results Abnormal lab results 12/31/21 12/31/21 12/31/21 Range/Units 13:00 13:00 13:00 WBC 17.30 H (4.8-10.8) K/uL RBC 3.82 L (4.7-6.1) M/uL Hgb 9.9 L (14.0-18.0) g/dL Hct 31.9 L (42-52) % MCHC 31.0 L (32-36) g/dL RDW Std Deviation 56.0 H (36.4-46.3) fL RDW Coeff of Yoseph 18.4 H (11.5-14.5) % Neut # (Auto) 13.77 H (1.4-6.5) K/uL Hardeman # (Auto) 0.79 H (0.11-0.59) K/uL Immature Gran # (Auto) 0.06 H (0.00-0.02) K/uL ESR (0-20) mm/hr PT 17.8 H (9.0-12.0) Seconds INR 1.7 H (0.9-1.1) APTT 44.9 H (21.0-31.0) Seconds Sodium (136-145) mmol/L Chloride (98-107) mmol/L Carbon Dioxide (21-32) mmol/L BUN (6-23) mg/dl BUN/Creatinine Ratio (10-20) Glucose (70-99(Fasting)) mg/dl POC Glucose (70-99) mg/dl Lactate (0.4-2.0) mmol/L AST (13-39) U/L C-Reactive Protein 5.59 H (0-0.5) mg/dl Globulin (2.5-4.0) gm/dl Albumin/Globulin Ratio (0.9-2) TSH (0.300-4.500) uIu/ml Ur Leukocyte Esterase (Negative) Urine WBC (Auto) (0-5) /hpf U Epithel Cells (Auto) (0-5) /lpf Urine Yeast (None Prsent) 12/31/21 12/31/21 12/31/21 Range/Units 13:00 13:00 13:00 WBC (4.8-10.8) K/uL RBC (4.7-6.1) M/uL Hgb (14.0-18.0) g/dL Hct (42-52) % MCHC (32-36) g/dL RDW Std Deviation (36.4-46.3) fL RDW Coeff of Yoseph (11.5-14.5) % Neut # (Auto) (1.4-6.5) K/uL Hardeman # (Auto) (0.11-0.59) K/uL Immature Gran # (Auto) (0.00-0.02) K/uL ESR (0-20) mm/hr PT (9.0-12.0) Seconds INR (0.9-1.1) APTT (21.0-31.0) Seconds Sodium (136-145) mmol/L Chloride 94 L (98-107) mmol/L Carbon Dioxide (21-32) mmol/L BUN 33 H (6-23) mg/dl BUN/Creatinine Ratio 26.4 H (10-20) Glucose 179 H (70-99(Fasting)) mg/dl POC Glucose (70-99) mg/dl Lactate 2.5 H* (0.4-2.0) mmol/L AST 11 L (13-39) U/L C-Reactive Protein (0-0.5) mg/dl Globulin 4.5 H (2.5-4.0) gm/dl Albumin/Globulin Ratio 0.8 L (0.9-2) TSH 12.775 H (0.300-4.500) uIu/ml Ur Leukocyte Esterase (Negative) Urine WBC (Auto) (0-5) /hpf U Epithel Cells (Auto) (0-5) /lpf Urine Yeast (None Prsent) 12/31/21 12/31/21 12/31/21 Range/Units 13:00 15:02 15:23 WBC (4.8-10.8) K/uL RBC (4.7-6.1) M/uL Hgb (14.0-18.0) g/dL Hct (42-52) % MCHC (32-36) g/dL RDW Std Deviation (36.4-46.3) fL RDW Coeff of Yoseph (11.5-14.5) % Neut # (Auto) (1.4-6.5) K/uL Hardeman # (Auto) (0.11-0.59) K/uL Immature Gran # (Auto) (0.00-0.02) K/uL ESR 123 H (0-20) mm/hr PT (9.0-12.0) Seconds INR (0.9-1.1) APTT (21.0-31.0) Seconds Sodium (136-145) mmol/L Chloride (98-107) mmol/L Carbon Dioxide (21-32) mmol/L BUN (6-23) mg/dl BUN/Creatinine Ratio (10-20) Glucose (70-99(Fasting)) mg/dl POC Glucose (70-99) mg/dl Lactate 3.0 H* (0.4-2.0) mmol/L AST (13-39) U/L C-Reactive Protein (0-0.5) mg/dl Globulin (2.5-4.0) gm/dl Albumin/Globulin Ratio (0.9-2) TSH (0.300-4.500) uIu/ml Ur Leukocyte Esterase 3+ H (Negative) Urine WBC (Auto) >30 H (0-5) /hpf U Epithel Cells (Auto) >30 H (0-5) /lpf Urine Yeast Budding A (None Prsent) 12/31/21 12/31/21 12/31/21 Range/Units 20:29 21:02 22:49 WBC (4.8-10.8) K/uL RBC (4.7-6.1) M/uL Hgb (14.0-18.0) g/dL Hct (42-52) % MCHC (32-36) g/dL RDW Std Deviation (36.4-46.3) fL RDW Coeff of Yoseph (11.5-14.5) % Neut # (Auto) (1.4-6.5) K/uL Hardeman # (Auto) (0.11-0.59) K/uL Immature Gran # (Auto) (0.00-0.02) K/uL ESR (0-20) mm/hr PT (9.0-12.0) Seconds INR (0.9-1.1) APTT (21.0-31.0) Seconds Sodium (136-145) mmol/L Chloride (98-107) mmol/L Carbon Dioxide (21-32) mmol/L BUN (6-23) mg/dl BUN/Creatinine Ratio (10-20) Glucose (70-99(Fasting)) mg/dl POC Glucose 137 H (70-99) mg/dl Lactate 2.2 H* 2.1 H* (0.4-2.0) mmol/L AST (13-39) U/L C-Reactive Protein (0-0.5) mg/dl Globulin (2.5-4.0) gm/dl Albumin/Globulin Ratio (0.9-2) TSH (0.300-4.500) uIu/ml Ur Leukocyte Esterase (Negative) Urine WBC (Auto) (0-5) /hpf U Epithel Cells (Auto) (0-5) /lpf Urine Yeast (None Prsent) 12/31/21 01/01/22 01/01/22 Range/Units 23:48 04:27 04:27 WBC 16.03 H (4.8-10.8) K/uL RBC 3.55 L (4.7-6.1) M/uL Hgb 9.3 L (14.0-18.0) g/dL Hct 29.9 L (42-52) % MCHC 31.1 L (32-36) g/dL RDW Std Deviation 56.1 H (36.4-46.3) fL RDW Coeff of Yoseph 18.2 H (11.5-14.5) % Neut # (Auto) 12.80 H (1.4-6.5) K/uL Hardeman # (Auto) 0.62 H (0.11-0.59) K/uL Immature Gran # (Auto) 0.05 H (0.00-0.02) K/uL ESR (0-20) mm/hr PT 19.5 H (9.0-12.0) Seconds INR 1.9 H (0.9-1.1) APTT (21.0-31.0) Seconds Sodium (136-145) mmol/L Chloride (98-107) mmol/L Carbon Dioxide (21-32) mmol/L BUN (6-23) mg/dl BUN/Creatinine Ratio (10-20) Glucose (70-99(Fasting)) mg/dl POC Glucose 209 H (70-99) mg/dl Lactate (0.4-2.0) mmol/L AST (13-39) U/L C-Reactive Protein (0-0.5) mg/dl Globulin (2.5-4.0) gm/dl Albumin/Globulin Ratio (0.9-2) TSH (0.300-4.500) uIu/ml Ur Leukocyte Esterase (Negative) Urine WBC (Auto) (0-5) /hpf U Epithel Cells (Auto) (0-5) /lpf Urine Yeast (None Prsent) 01/01/22 01/01/22 01/01/22 Range/Units 04:27 04:27 07:25 WBC (4.8-10.8) K/uL RBC (4.7-6.1) M/uL Hgb (14.0-18.0) g/dL Hct (42-52) % MCHC (32-36) g/dL RDW Std Deviation (36.4-46.3) fL RDW Coeff of Yoseph (11.5-14.5) % Neut # (Auto) (1.4-6.5) K/uL Hardeman # (Auto) (0.11-0.59) K/uL Immature Gran # (Auto) (0.00-0.02) K/uL ESR (0-20) mm/hr PT (9.0-12.0) Seconds INR (0.9-1.1) APTT 68.5 H* (21.0-31.0) Seconds Sodium 135 L (136-145) mmol/L Chloride 96 L (98-107) mmol/L Carbon Dioxide 33 H (21-32) mmol/L BUN 27 H (6-23) mg/dl BUN/Creatinine Ratio 23.3 H (10-20) Glucose 128 H (70-99(Fasting)) mg/dl POC Glucose 157 H (70-99) mg/dl Lactate (0.4-2.0) mmol/L AST (13-39) U/L C-Reactive Protein (0-0.5) mg/dl Globulin (2.5-4.0) gm/dl Albumin/Globulin Ratio (0.9-2) TSH (0.300-4.500) uIu/ml Ur Leukocyte Esterase (Negative) Urine WBC (Auto) (0-5) /hpf U Epithel Cells (Auto) (0-5) /lpf Urine Yeast (None Prsent) 01/01/22 Range/Units 11:40 WBC (4.8-10.8) K/uL RBC (4.7-6.1) M/uL Hgb (14.0-18.0) g/dL Hct (42-52) % MCHC (32-36) g/dL RDW Std Deviation (36.4-46.3) fL RDW Coeff of Yoseph (11.5-14.5) % Neut # (Auto) (1.4-6.5) K/uL Hardeman # (Auto) (0.11-0.59) K/uL Immature Gran # (Auto) (0.00-0.02) K/uL ESR (0-20) mm/hr PT (9.0-12.0) Seconds INR (0.9-1.1) APTT (21.0-31.0) Seconds Sodium (136-145) mmol/L Chloride (98-107) mmol/L Carbon Dioxide (21-32) mmol/L BUN (6-23) mg/dl BUN/Creatinine Ratio (10-20) Glucose (70-99(Fasting)) mg/dl POC Glucose 144 H (70-99) mg/dl Lactate (0.4-2.0) mmol/L AST (13-39) U/L C-Reactive Protein (0-0.5) mg/dl Globulin (2.5-4.0) gm/dl Albumin/Globulin Ratio (0.9-2) TSH (0.300-4.500) uIu/ml Ur Leukocyte Esterase (Negative) Urine WBC (Auto) (0-5) /hpf U Epithel Cells (Auto) (0-5) /lpf Urine Yeast (None Prsent) Diagnostic Findings abd/pelvis CT-Redemonstration of a sacral decubitus ulcer which extends to the underlying bone. Interval resolution of the abscess shown on prior CT of September 06, 2021 and significant improvement in cellulitis. Interval bone loss involving the inferior sacrum and upper to mid coccyx since prior CT. This bone loss could be due to interval osteomyelitis or resection/debridement. Small portion of remaining coccyx may be exposed.. Left inferior gluteal ulcer which extends to the underlying left ischial tuberosity, similar to prior CT. No evidence for acute osteomyelitis of the left ischial tuberosity. Persistent bladder wall thickening which could be correlated with urinalysis. No hydronephrosis. Right- sided nephrolithiasis. No bowel obstruction. CXR-Stable postsurgical changes. The cardiomediastinal silhouette is stable. The lungs are clear. No evidence of pleural effusion or pneumothorax. CT head-No acute intracranial findings. No change in appearance of the brain.
--- NOTE | 2022-01-01 11:49 | Pharmacy Report ---
Pharmacy Glycemic Short Note 2 - Date of Service January 01, 2022 - Glycemic Short BSG Results (Last 24 hours): 12/31/21 12/31/21 12/31/21 13:00 20:29 23:48 Glucose 179 H POC Glucose 137 H 209 H 01/01/22 01/01/22 04:27 07:25 Glucose 128 H POC Glucose 157 H OUTPATIENT ANTIDIABETIC REGIMEN: * Novolin 70/30 - 60 units SQ BIDM * Novolin R SSI * Metformin 1000 mg PO BIDM * HbA1c = 7.2% (09/23/21) ASSESSMENT: * 61 yo M admitted secondary to sacral wound cellulitis. Stressors remain stable with infection and abx. Pharmacy has been consulted to assist with inpatient glycemic management. Patient is well known to our service. * BSG in ED was 179 mg/dL. Patient did take AM insulin doses and Metformin at home prior to admission. Upon transfer to the floors, BSG was 137 mg/dL. No PM basal insulin was given. Did receive Novolog for correctional/prandial needs overnight. * Fasting BSG was 157 mg/dL. Patient was initially NPO for possibility of surgeryl; however, this has been ruled out and T2DM has been ordered to start with lunch. * Gave 30 units of NPH (70% of home dose) this AM for NPO status. * Now that patient is eating, will tighten carb ratio as likely that BSGs will trend upwards given basal deficiency. * Will give 60 units of NPH this evening which will closely resemble total home basal dose for today. * No overnight checks necessary. Will target tighter goal range to help with wound healing and prevent further infection. PLAN FOR INPATIENT GLYCEMIC CONTROL: * Hold outpatient oral diabetes medications * Basal insulin * NPH 30 units SQ x 1 this AM * Start NPH 60 units SQ BIDM this evening * Bolus insulin * NovoLog per scale ACHS or Q6hrs while NPO * Goal Range: Low 110 mg/dL - High 140 mg/dL * Correction Factor: 10 mg/dL/unit * Nutritional / Prandial insulin per carb ratio of 1 unit per 2.5 grams CHO consumed DISCHARGE RECOMMENDATIONS: * Most recent HbA1c is well controlled for this patient. Continue current outpatient regimen upon discharge.
[2022-01-01] MEDS ORDERED: [UNRECOGNIZED DRUG - OTHER] PRN (12:17)
[2022-01-01 12:43] LABS: Partial Thromboplastin Ratio 2.4
--- NOTE | 2022-01-01 12:46 | Surgery Progress Note ---
Date of Service January 01, 2022 Assessment & Plan (1) Sacral wound: Plan: pt is consult for sacral wound, Plan, no surgery indication now, continues dressing change with wound care nurse, sign off today, please call with questions, Thanks, 01/01/2022 12:50PM Dr. Munoz F/U sacral ulcer Plan, no surgery indication now, continues dressing change with wound care nurse, may need pelvic MRI to R/O osteomyelitis if WBC is still high in next 1-2 days, if positive for osteomyelitis , should consult orthopedic surgery, I called pt's , I answered her questions, she and pt understood, I sign off today, please call with questions, Thanks, Admission and Anticipated Discharge Date Admission Date: December 31, 2021 Supervising Physician Co-Signing Physician Notes I have seen and discussed above patient with Dr Chris Hinojosa Subjective hospitalist asks to reevaluate pt's sacral wound, pt denies fever, Physical Exam Constitutional: WD/WN, vitals as above Eyes: PERRL, conjunctivae normal, anicteric sclerae Neck: trachea midline, no thyromegaly Respiratory: normal respiratory effort, lungs clear to auscultation Cardiovascular: RRR, no murmur, no edema Skin: stage IV sacral ulcer, size about 7x8cm, no necrotic tissue, no dr casey drainage Neurologic: patellar DTR's 2+ bilat, sensation intact Psychiatric: A+Ox3, euthymic affect Results & Data ([facility]) Vital Signs (Past 12 Hours) Vital Signs Temp Pulse Pulse Resp BP Pulse Ox 01/01/22 11:41 36.7 C 89 18 105/65 93 01/01/22 10:45 92 H 01/01/22 07:11 37.2 C 86 19 112/66 97 01/01/22 03:45 37.2 C 90 20 106/69 96 Laboratory Results Abnormal lab results 12/31/21 12/31/21 12/31/21 Range/Units 13:00 13:00 13:00 WBC 17.30 H (4.8-10.8) K/uL RBC 3.82 L (4.7-6.1) M/uL Hgb 9.9 L (14.0-18.0) g/dL Hct 31.9 L (42-52) % MCHC 31.0 L (32-36) g/dL RDW Std Deviation 56.0 H (36.4-46.3) fL RDW Coeff of Yoseph 18.4 H (11.5-14.5) % Neut # (Auto) 13.77 H (1.4-6.5) K/uL [place] # (Auto) 0.79 H (0.11-0.59) K/uL Immature Gran # (Auto) 0.06 H (0.00-0.02) K/uL ESR (0-20) mm/hr PT 17.8 H (9.0-12.0) Seconds INR 1.7 H (0.9-1.1) APTT 44.9 H (21.0-31.0) Seconds Sodium (136-145) mmol/L Chloride (98-107) mmol/L Carbon Dioxide (21-32) mmol/L BUN (6-23) mg/dl BUN/Creatinine Ratio (10-20) Glucose (70-99(Fasting)) mg/dl POC Glucose (70-99) mg/dl Lactate (0.4-2.0) mmol/L AST (13-39) U/L C-Reactive Protein 5.59 H (0-0.5) mg/dl Globulin (2.5-4.0) gm/dl Albumin/Globulin Ratio (0.9-2) TSH (0.300-4.500) uIu/ml Ur Leukocyte Esterase (Negative) Urine WBC (Auto) (0-5) /hpf U Epithel Cells (Auto) (0-5) /lpf Urine Yeast (None Prsent) 12/31/21 12/31/21 12/31/21 Range/Units 13:00 13:00 13:00 WBC (4.8-10.8) K/uL RBC (4.7-6.1) M/uL Hgb (14.0-18.0) g/dL Hct (42-52) % MCHC (32-36) g/dL RDW Std Deviation (36.4-46.3) fL RDW Coeff of Yoseph (11.5-14.5) % Neut # (Auto) (1.4-6.5) K/uL [place] # (Auto) (0.11-0.59) K/uL Immature Gran # (Auto) (0.00-0.02) K/uL ESR (0-20) mm/hr PT (9.0-12.0) Seconds INR (0.9-1.1) APTT (21.0-31.0) Seconds Sodium (136-145) mmol/L Chloride 94 L (98-107) mmol/L Carbon Dioxide (21-32) mmol/L BUN 33 H (6-23) mg/dl BUN/Creatinine Ratio 26.4 H (10-20) Glucose 179 H (70-99(Fasting)) mg/dl POC Glucose (70-99) mg/dl Lactate 2.5 H* (0.4-2.0) mmol/L AST 11 L (13-39) U/L C-Reactive Protein (0-0.5) mg/dl Globulin 4.5 H (2.5-4.0) gm/dl Albumin/Globulin Ratio 0.8 L (0.9-2) TSH 12.775 H (0.300-4.500) uIu/ml Ur Leukocyte Esterase (Negative) Urine WBC (Auto) (0-5) /hpf U Epithel Cells (Auto) (0-5) /lpf Urine Yeast (None Prsent) 12/31/21 12/31/21 12/31/21 Range/Units 13:00 15:02 15:23 WBC (4.8-10.8) K/uL RBC (4.7-6.1) M/uL Hgb (14.0-18.0) g/dL Hct (42-52) % MCHC (32-36) g/dL RDW Std Deviation (36.4-46.3) fL RDW Coeff of Yoseph (11.5-14.5) % Neut # (Auto) (1.4-6.5) K/uL [place] # (Auto) (0.11-0.59) K/uL Immature Gran # (Auto) (0.00-0.02) K/uL ESR 123 H (0-20) mm/hr PT (9.0-12.0) Seconds INR (0.9-1.1) APTT (21.0-31.0) Seconds Sodium (136-145) mmol/L Chloride (98-107) mmol/L Carbon Dioxide (21-32) mmol/L BUN (6-23) mg/dl BUN/Creatinine Ratio (10-20) Glucose (70-99(Fasting)) mg/dl POC Glucose (70-99) mg/dl Lactate 3.0 H* (0.4-2.0) mmol/L AST (13-39) U/L C-Reactive Protein (0-0.5) mg/dl Globulin (2.5-4.0) gm/dl Albumin/Globulin Ratio (0.9-2) TSH (0.300-4.500) uIu/ml Ur Leukocyte Esterase 3+ H (Negative) Urine WBC (Auto) >30 H (0-5) /hpf U Epithel Cells (Auto) >30 H (0-5) /lpf Urine Yeast Budding A (None Prsent) 12/31/21 12/31/21 12/31/21 Range/Units 20:29 21:02 22:49 WBC (4.8-10.8) K/uL RBC (4.7-6.1) M/uL Hgb (14.0-18.0) g/dL Hct (42-52) % MCHC (32-36) g/dL RDW Std Deviation (36.4-46.3) fL RDW Coeff of Yoseph (11.5-14.5) % Neut # (Auto) (1.4-6.5) K/uL [place] # (Auto) (0.11-0.59) K/uL Immature Gran # (Auto) (0.00-0.02) K/uL ESR (0-20) mm/hr PT (9.0-12.0) Seconds INR (0.9-1.1) APTT (21.0-31.0) Seconds Sodium (136-145) mmol/L Chloride (98-107) mmol/L Carbon Dioxide (21-32) mmol/L BUN (6-23) mg/dl BUN/Creatinine Ratio (10-20) Glucose (70-99(Fasting)) mg/dl POC Glucose 137 H (70-99) mg/dl Lactate 2.2 H* 2.1 H* (0.4-2.0) mmol/L AST (13-39) U/L C-Reactive Protein (0-0.5) mg/dl Globulin (2.5-4.0) gm/dl Albumin/Globulin Ratio (0.9-2) TSH (0.300-4.500) uIu/ml Ur Leukocyte Esterase (Negative) Urine WBC (Auto) (0-5) /hpf U Epithel Cells (Auto) (0-5) /lpf Urine Yeast (None Prsent) 12/31/21 01/01/22 01/01/22 Range/Units 23:48 04:27 04:27 WBC 16.03 H (4.8-10.8) K/uL RBC 3.55 L (4.7-6.1) M/uL Hgb 9.3 L (14.0-18.0) g/dL Hct 29.9 L (42-52) % MCHC 31.1 L (32-36) g/dL RDW Std Deviation 56.1 H (36.4-46.3) fL RDW Coeff of Yoseph 18.2 H (11.5-14.5) % Neut # (Auto) 12.80 H (1.4-6.5) K/uL [place] # (Auto) 0.62 H (0.11-0.59) K/uL Immature Gran # (Auto) 0.05 H (0.00-0.02) K/uL ESR (0-20) mm/hr PT 19.5 H (9.0-12.0) Seconds INR 1.9 H (0.9-1.1) APTT (21.0-31.0) Seconds Sodium (136-145) mmol/L Chloride (98-107) mmol/L Carbon Dioxide (21-32) mmol/L BUN (6-23) mg/dl BUN/Creatinine Ratio (10-20) Glucose (70-99(Fasting)) mg/dl POC Glucose 209 H (70-99) mg/dl Lactate (0.4-2.0) mmol/L AST (13-39) U/L C-Reactive Protein (0-0.5) mg/dl Globulin (2.5-4.0) gm/dl Albumin/Globulin Ratio (0.9-2) TSH (0.300-4.500) uIu/ml Ur Leukocyte Esterase (Negative) Urine WBC (Auto) (0-5) /hpf U Epithel Cells (Auto) (0-5) /lpf Urine Yeast (None Prsent) 01/01/22 01/01/22 01/01/22 Range/Units 04:27 04:27 07:25 WBC (4.8-10.8) K/uL RBC (4.7-6.1) M/uL Hgb (14.0-18.0) g/dL Hct (42-52) % MCHC (32-36) g/dL RDW Std Deviation (36.4-46.3) fL RDW Coeff of Yoseph (11.5-14.5) % Neut # (Auto) (1.4-6.5) K/uL [place] # (Auto) (0.11-0.59) K/uL Immature Gran # (Auto) (0.00-0.02) K/uL ESR (0-20) mm/hr PT (9.0-12.0) Seconds INR (0.9-1.1) APTT 68.5 H* (21.0-31.0) Seconds Sodium 135 L (136-145) mmol/L Chloride 96 L (98-107) mmol/L Carbon Dioxide 33 H (21-32) mmol/L BUN 27 H (6-23) mg/dl BUN/Creatinine Ratio 23.3 H (10-20) Glucose 128 H (70-99(Fasting)) mg/dl POC Glucose 157 H (70-99) mg/dl Lactate (0.4-2.0) mmol/L AST (13-39) U/L C-Reactive Protein (0-0.5) mg/dl Globulin (2.5-4.0) gm/dl Albumin/Globulin Ratio (0.9-2) TSH (0.300-4.500) uIu/ml Ur Leukocyte Esterase (Negative) Urine WBC (Auto) (0-5) /hpf U Epithel Cells (Auto) (0-5) /lpf Urine Yeast (None Prsent) 01/01/22 Range/Units 11:40 WBC (4.8-10.8) K/uL RBC (4.7-6.1) M/uL Hgb (14.0-18.0) g/dL Hct (42-52) % MCHC (32-36) g/dL RDW Std Deviation (36.4-46.3) fL RDW Coeff of Yoseph (11.5-14.5) % Neut # (Auto) (1.4-6.5) K/uL [place] # (Auto) (0.11-0.59) K/uL Immature Gran # (Auto) (0.00-0.02) K/uL ESR (0-20) mm/hr PT (9.0-12.0) Seconds INR (0.9-1.1) APTT (21.0-31.0) Seconds Sodium (136-145) mmol/L Chloride (98-107) mmol/L Carbon Dioxide (21-32) mmol/L BUN (6-23) mg/dl BUN/Creatinine Ratio (10-20) Glucose (70-99(Fasting)) mg/dl POC Glucose 144 H (70-99) mg/dl Lactate (0.4-2.0) mmol/L AST (13-39) U/L C-Reactive Protein (0-0.5) mg/dl Globulin (2.5-4.0) gm/dl Albumin/Globulin Ratio (0.9-2) TSH (0.300-4.500) uIu/ml Ur Leukocyte Esterase (Negative) Urine WBC (Auto) (0-5) /hpf U Epithel Cells (Auto) (0-5) /lpf Urine Yeast (None Prsent)
[2022-01-01 12:48] LABS: Partial Thromboplastin Time 65.5 Seconds (21.0-31.0)
[2022-01-01] MEDS ORDERED: DAPTOmycin 825 MG in SYRINGE 0 ML IV SCH (15:00)
[2022-01-01] MEDS: DAPTOmycin 900 MG in SYRINGE 0 ML IV SCH (15:33)
[2022-01-01] MEDS: INSULIN HUMAN NPH SC SCH (17:01)
--- NOTE | 2022-01-01 20:09 | Hospitalist Progress Note ---
Date of Service January 01, 2022 Assessment & Plan (1) Sacral wound: (2) Sepsis: Plan: Patient is 61 y/o M with history of MRSA/VRE/MDR Pseudomonas,sacral decubitus wounds, osteomyelitis, sepsis s/p surgical debridement in 09/2021, c/o lethargy for the past 3 days. History obtained from patient and patient's . Patient's reports past 3 days patient has been more lethargic and sleepy. Reports past 1 to 2 weeks has noted an opening to sacral area that concern underlying tunnel. CT abdomen pelvis: Redemonstration of a sacral decubitus ulcer which extends to the underlying bone. Interval resolution of the abscess shown on prior CT of September 06, 2021 and significant improvement in cellulitis. Interval bone loss involving the inferior sacrum and upper to mid coccyx since prior CT. This bone loss could be due to interval osteomyelitis or resection/debridement. Small portion of remaining coccyx may be exposed. Left inferior gluteal ulcer which extends to the underlying left ischial tuberosity, similar to prior CT. No evidence for acute osteomyelitis of the left ischial tuberosity. Received IV daptomycin, ceftazidime/avibactam in the ER Blood cultures pending Wound cx pending Surgery on board Continue daptomycin IV abx ceftazidime/avibactam changed to Ceftolozane/Tazobactam base on previous sensitivity Surgery on board- No surgery indication Pt woud like to speak to surgery again today I notified the surgery team- again surgery saw patient again today that recommended no surgical procedure Surgery team called the and answered all questions If WBC continue to be high, will get an MRI of the pelvis to r/o osteomyelitis Will consult ID (3) Seizure disorder: Plan: Reported history of seizure disorder diagnosed at [facility] [place] Possible myoclonic jerk in th setting of sepsis CT head showed no acute intracranial abnormality Neuro on board - not recommend starting AED or seizure medication. If episodes become more frequent, will consider ambulatory EEG as outpatient. 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 Baseline 9-10 No signs symptoms of active bleeding Continue iron supplement HTN Hold Lasix, spironolactone Dyslipidemia Hold statin while on daptomycin Obesity BMI: 45 DVT Prophylaxis On IV heparin/Coumadin resumed Full code Admission and Anticipated Discharge Date Admission Date: December 31, 2021 Subjective Pt was seen and examined for follow up of saral wound Lying in bed with no acute distress Pt said that he feels ok Denies any chest pain, palpitation, dizziness and SOB Review of Systems Review of Systems: All systems reviewed & are unremarkable except as noted in Subjective Physical Exam Physical Exam: General- No acute distress Head- atraumatic Eyes- PERRL, EOMI, ENT- oropharynx clear Neck- supple, no JVD Lungs- clear to auscultation Heart- regular rhythm; no murmur Abdomen- normal bowel sounds, +ostomy Extremities- no calf tenderness, B/L paralysis Neuro- alert, oriented x 3; PERRL, EOMI; no facial palsy; no dysarthria Skin- warm & dry Results & Data Results & Data ([facility]) Vital Signs (Past 12 Hours) Vital Signs Temp Pulse Pulse Resp BP Pulse Ox 01/01/22 19:25 37.2 C 92 H 22 122/64 93 01/01/22 17:53 77 01/01/22 14:59 36.8 C 78 14 117/63 94 01/01/22 11:41 36.7 C 89 18 105/65 93 01/01/22 10:45 92 H (1) Sepsis Sepsis type: sepsis due to unspecified organism
[2022-01-01] MEDS: HYOSCYAMINE SULFATE 0.125 MG TAB PO SCH (21:15)
[2022-01-02] MEDS: MAGNESIUM OXIDE 400 MG TAB PO SCH ×2 (00:01→12:04)
[2022-01-02] MEDS: CEFTOLOZANE/TAZOBACTAM 1,500 MG in DEXTROSE 5% 100 ML IV SCH ×4 (00:01→17:24)
[2022-01-02] MEDS: CYCLOBENZAPRINE HCL 5 MG TAB PO SCH (00:02)
[2022-01-02] MEDS: rOPINIRole HCL 1 MG TABLET PO SCH ×4 (00:03→16:57)
[2022-01-02] MEDS: tiZANidine HCL 4 MG TABLET PO SCH ×2 (00:04→12:04)
[2022-01-02 05:31] LABS: Hematocrit (blood only) 29.3 % (42-52); Hemoglobin 8.8 g/dL (14.0-18.0); Mean Corpuscular Hemoglobin 25.9 pg (25-34); Mean Corpuscular Volume 86.2 fL (80-100); Mean Platelet Volume 8.8 fL (7.4-10.4); Platelet Count 290 K/uL (130-400); RDW Coefficient of Variation 18.6 % (11.5-14.5); RDW Standard Deviation 58.8 fL (36.4-46.3); White Blood Count 12.97 K/uL (4.8-10.8)
[2022-01-02 05:50] LABS: BUN Creatinine Ratio 24.1 (10-20); Calcium 8.8 mg/dl (8.5-10.1); Creatinine Clr Calc Pharmacy 148.2 ml/min; Est GFR (African American) 109.3 ml/min; Est GFR (Non-African American) 94.3 ml/min; Potassium 4.1 mmol/L (3.5-5.1)
[2022-01-02 06:00] LABS: INR 1.6 (0.9-1.1)
[2022-01-02] MEDS: GABAPENTIN 800 MG TAB PO SCH ×2 (06:08→16:57)
[2022-01-02] MEDS: ASCORBIC ACID 500 MG TAB PO SCH ×3 (06:08→16:55)
[2022-01-02 06:14] LABS: Partial Thromboplastin Time 55.4 Seconds (21.0-31.0)
[2022-01-02] MEDS: INSULIN HUMAN NPH SC SCH ×2 (07:40→16:54)
[2022-01-02] MEDS: INSULIN ASPART PER UNIT SC SCH ×4 (07:41→22:30)
[2022-01-02] MEDS: POTASSIUM CHLORIDE 10 MEQ TABCR PO SCH ×2 (07:44→16:56)
[2022-01-02] MEDS: MULTIVITAMIN TAB PO SCH (07:44)
[2022-01-02] MEDS: LACTOBACILLUS ACIDOPHILUS 1 GM PACK PO SCH ×2 (07:44→22:24)
[2022-01-02] MEDS: DOCUSATE SODIUM 100 MG CAP PO SCH ×2 (07:45→22:23)
[2022-01-02] MEDS: BACLOFEN 10 MG TAB PO SCH ×3 (07:45→22:26)
[2022-01-02] MEDS: ESCITALOPRAM OXALATE 20 MG TAB PO SCH (07:45)
[2022-01-02] MEDS: allopurinoL 100 MG TAB PO SCH ×2 (07:46→22:24)
[2022-01-02] MEDS: FERROUS GLUCONATE 324 MG TAB PO SCH (07:46)
[2022-01-02] MEDS: COLLAGENASE OINT 30 GM TUBE TOP SCH (07:47)
[2022-01-02] MEDS: PANTOprazole 40 MG TAB PO SCH ×2 (08:34→22:25)
--- NOTE | 2022-01-02 12:58 | Pharmacy Report ---
Pharmacy Glycemic Short Note 2 - Date of Service January 02, 2022 - Glycemic Short BSG Results (Last 24 hours): 01/01/22 01/01/22 01/02/22 16:19 20:53 05:16 Glucose 136 H POC Glucose 150 H 166 H 01/02/22 01/02/22 07:15 11:20 Glucose POC Glucose 153 H 212 H OUTPATIENT ANTIDIABETIC REGIMEN: * Novolin 70/30 - 60 units SQ BIDM * Novolin R SSI * Metformin 1000 mg PO BIDM * HbA1c = 7.2% (09/23/21) ASSESSMENT: 01/02 * BSGs well controlled yesterday 144-166 mg/dL * NPH increased to 60 units BIDM with start of diet * Fasting 153 mg/dL. Will continue 60 BIDM for now * Lunch BSG elevated, will tighten carb ratio. 01/01 * 61 yo M admitted secondary to sacral wound cellulitis. Stressors remain stable with infection and abx. Pharmacy has been consulted to assist with inpatient glycemic management. Patient is well known to our service. * BSG in ED was 179 mg/dL. Patient did take AM insulin doses and Metformin at home prior to admission. Upon transfer to the floors, BSG was 137 mg/dL. No PM basal insulin was given. Did receive Novolog for correctional/prandial needs overnight. * Fasting BSG was 157 mg/dL. Patient was initially NPO for possibility of surgeryl; however, this has been ruled out and T2DM has been ordered to start with lunch. * Gave 30 units of NPH (70% of home dose) this AM for NPO status. * Now that patient is eating, will tighten carb ratio as likely that BSGs will trend upwards given basal deficiency. * Will give 60 units of NPH this evening which will closely resemble total home basal dose for today. * No overnight checks necessary. Will target tighter goal range to help with wound healing and prevent further infection. PLAN FOR INPATIENT GLYCEMIC CONTROL: * Hold outpatient oral diabetes medications * Basal insulin * NPH 60 units SQ BIDM this evening * Bolus insulin * NovoLog per scale ACHS or Q6hrs while NPO * Goal Range: Low 110 mg/dL - High 140 mg/dL * Correction Factor: 10 mg/dL/unit * Nutritional / Prandial insulin per carb ratio of 1 unit per 2 grams CHO consumed DISCHARGE RECOMMENDATIONS: * Most recent HbA1c is well controlled for this patient. Continue current outpatient regimen upon discharge.
[2022-01-02] MEDS: HEPARIN SODIUM/DEXTROSE 25,000 UNITS/500 ML BAG IV SCH ×2 (13:52)
[2022-01-02] MEDS: DAPTOmycin 900 MG in SYRINGE 0 ML IV SCH (14:18)
--- NOTE | 2022-01-02 14:36 | Hospitalist Progress Note ---
Date of Service January 02, 2022 Assessment & Plan (1) Sepsis: Plan: Patient is 61 y/o M with history of MRSA/VRE/MDR Pseudomonas,sacral decubitus wounds, osteomyelitis, sepsis s/p surgical debridement in 09/2021, c/o lethargy for the past 3 days. Reports past 1 to 2 weeks has noted an opening to sacral area that concern underlying tunnel. CT abdomen pelvis: Redemonstration of a sacral decubitus ulcer which extends to the underlying bone. Interval resolution of the abscess shown on prior CT of September 06, 2021 and significant improvement in cellulitis. Interval bone loss involving the inferior sacrum and upper to mid coccyx since prior CT. This bone loss could be due to interval osteomyelitis or resection/debridement. Small portion of remaining coccyx may be exposed. Left inferior gluteal ulcer which extends to the underlying left ischial tuberosity, similar to prior CT. No evidence for acute osteomyelitis of the left ischial tuberosity. Received IV daptomycin, ceftazidime/avibactam in the ER Blood cultures negative Wound cx -May need WBC without any organism, culture showed gram-positive cocci Surgery on board -appreciate input and recommendation. No debridement Continue daptomycin IV abx ceftazidime/avibactam changed to Ceftolozane/Tazobactam base on previous sensitivity Surgery team called the and answered all questions White count has been improving ID has been interviewed and the full report is pending (2) Sacral wound: Plan: As above Please see the picture for complete viewing of the wound (3) Seizure disorder: Plan: Reported history of seizure disorder diagnosed at [facility] Possible myoclonic jerk in th setting of sepsis CT head showed no acute intracranial abnormality Neuro on board - not recommend starting AED or seizure medication. If episodes become more frequent, will consider ambulatory EEG as outpatient. 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 Baseline 9-10 No signs symptoms of active bleeding Continue iron supplement HTN Hold Lasix, spironolactone Dyslipidemia Hold statin while on daptomycin Obesity BMI: 45 DVT Prophylaxis On IV heparin/Coumadin resumed Full code Admission and Anticipated Discharge Date Admission Date: December 31, 2021 Subjective 01/02/2022 The patient was seen and examined in the telemetry unit He has been feeling much better and denies any significant symptoms He has had interview with the ID specialist in [place] and awaiting further guidance regarding antibiotic Denies any fever and or chills, increasing pain, nausea or vomiting Review of Systems Review of Systems: All systems reviewed and are unremarkable except as noted below Physical Exam Physical Exam: Lying in bed comfortably Constitutional: well developed, well nourished and + obese; not ill appearing Eyes: PERRL, conjunctivae normal, anicteric sclerae ENMT: external ear and nose normal, oropharynx normal Neck: trachea midline, no thyromegaly Respiratory: no respiratory distress Auscultation: lungs clear to auscultation bilaterally and + diminished lung sounds Cardiovascular: Rate/Rhythm: regular rate and regular rhythm; not tachycardic Heart Sounds: normal S1 and normal S2; no murmur Extremities: + edema (Trace edema bilaterally) Gastrointestinal (Abdomen): Inspection/Auscultation: + abdomen abnormal to inspection (Has colostomy bag in the left lower quadrant) and abdomen not distended Percussion/Palpation: abdomen soft; abdomen nontender Musculoskeletal: No acute arthritis in any joint Neurologic: moves all extremities (Has paraplegia) and awake Psychiatric: A+Ox3, euthymic affect Lymphatic: no cervical or axillary lymphadenopathy Results & Data Results & Data ([facility]) Vital Signs (Past 12 Hours) Vital Signs Temp Pulse Pulse Resp BP Pulse Ox 01/02/22 11:21 37.3 C 90 18 132/75 95 01/02/22 08:00 80 01/02/22 04:33 79 18 110/66 97 Laboratory Results Short CBC 01/02/22 Range/Units 05:16 WBC 12.97 H (4.8-10.8) K/uL Hgb 8.8 L (14.0-18.0) g/dL Hct 29.3 L (42-52) % Plt Count 290 (130-400) K/uL BMP 01/02/22 05:16 Sodium 135 L Potassium 4.1 Chloride 97 L Carbon Dioxide 32 BUN 20 Creatinine 0.83 D Glucose 136 H Calcium 8.8 Medications Administered Current Inpatient Medications Acetaminophen (Acetaminophen 325 Mg Tab) 650 mg PO Q4H PRN PRN Reason: Pain or Fever Stop: 01/30/22 18:39 Allopurinol (Allopurinol 100 Mg Tab) 100 mg PO BID JO Stop: 01/30/22 20:59 Last Admin: 01/02/22 07:46 Dose: 100 mg Documented by: Ascorbic Acid (Ascorbic Acid 500 Mg Tab) 250 mg PO TID@0600,1200,1800 JO Stop: 01/30/22 20:59 Last Admin: 01/02/22 12:04 Dose: 250 mg Documented by: Baclofen (Baclofen 10 Mg Tab) 5 mg PO TID JO Stop: 01/30/22 20:59 Last Admin: 01/02/22 14:18 Dose: 5 mg Documented by: Collagenase (Collagenase Oint 30 Gm Tube) 1 appln TOP DAILY JO Stop: 01/31/22 08:59 Last Admin: 01/02/22 07:47 Dose: 1 appln Documented by: Cyclobenzaprine HCl (Cyclobenzaprine Hcl 5 Mg Tab) 15 mg PO 0000 [facility] Stop: 01/31/22 00:00 Last Admin: 01/02/22 00:02 Dose: 15 mg Documented by: Dextrose (Dextrose 50% 50 Ml Syringe) 25 - 50 ml IV UD PRN; Protocol PRN Reason: Hypoglycemia Protocol Stop: 01/30/22 18:39 Docusate Sodium (Docusate Sodium 100 Mg Cap) 100 mg PO AMHS JO Stop: 01/30/22 20:59 Last Admin: 01/02/22 07:45 Dose: 100 mg Documented by: Escitalopram Oxalate (Escitalopram Oxalate 20 Mg Tab) 20 mg PO QAM JO Stop: 01/31/22 08:59 Last Admin: 01/02/22 07:45 Dose: 20 mg Documented by: Ferrous Gluconate (Ferrous Gluconate 324 Mg Tab) 324 mg PO QAM [facility] Stop: 01/31/22 08:59 Last Admin: 01/02/22 07:46 Dose: 324 mg Documented by: Gabapentin (Gabapentin 800 Mg Tab) 800 mg PO BID@0600,1800 [facility] Stop: 01/30/22 20:59 Last Admin: 01/02/22 06:08 Dose: 800 mg Documented by: Glucagon (Glucagon For Inj 1 Mg Vial) 1 mg SQ UD PRN; Protocol PRN Reason: Hypoglycemia Protocol Stop: 01/30/22 18:39 Glucose (Glucose 10 Tabs/Tube) 4 - 8 tabs PO UD PRN; Protocol PRN Reason: Hypoglycemia Protocol Stop: 01/30/22 18:39 Glucose (Glucose 40% Gel 15 Gm Tube) 15 - 30 gm PO UD PRN; Protocol PRN Reason: Hypoglycemia Protocol Stop: 01/30/22 18:39 Hyoscyamine (Hyoscyamine Sulfate 0.125 Mg Tab) 0.125 mg PO QPM [facility] Stop: 01/30/22 20:59 Last Admin: 01/01/22 21:15 Dose: 0.125 mg Documented by: Heparin Sodium/Dextrose (Heparin Sodium/Dextrose) 25,000 units in 500 mls @ 35 mls/hr IV .[id number] [facility]; Protocol Stop: 01/30/22 20:44 Last Admin: 01/02/22 13:52 Dose: 1,750 units/hr, 35 mls/hr Documented by: Ceftolozane/Tazobactam 1,500 (mg/ Dextrose) 111.4 mls @ 111.4 mls/hr IV Q8H [facility]; Protocol Stop: 01/09/22 00:00 Last Infusion: 01/02/22 09:36 Dose: Infused Documented by: Daptomycin 900 mg/ Syringe 18 mls @ 9 mls/min IV Q24H [facility]; Protocol Stop: 02/12/22 14:59 Last Admin: 01/02/22 14:18 Dose: 9 mls/min Documented by: Insulin Aspart (Insulin Aspart Per Unit) 0 units SC ACHS [facility]; Protocol Stop: 01/30/22 20:59 Last Admin: 01/02/22 12:03 Dose: 26 units Documented by: Insulin Human NPH (Insulin Human Nph) 60 units SC BIDM [facility]; Protocol Stop: 01/31/22 16:59 Last Admin: 01/02/22 07:40 Dose: 60 units Documented by: Lactobacillus Acidophilus (Lactobacillus Acidophilus 1 Gm Pack) 1 gm PO BID [facility] Stop: 01/30/22 20:59 Last Admin: 01/02/22 07:44 Dose: 1 gm Documented by: Magnesium Oxide (Magnesium Oxide 400 Mg Tab) 400 mg PO BID@0000,1200 [facility] Stop: 01/31/22 00:00 Last Admin: 01/02/22 12:04 Dose: 400 mg Documented by: Miscellaneous (Carbohydrates For Hypoglycemia ) 15 - 30 gm PO UD PRN PRN Reason: Hypoglycemia Protocol Stop: 01/30/22 18:39 Miscellaneous Information (Pharmacy Glycemic Mgmt Consult) 1 ea N/A UD PRN PRN Reason: Consult Stop: 01/30/22 18:39 Miscellaneous Information (Daptomycin Consult Active) 1 ea N/A UD PRN PRN Reason: Consult Stop: 01/30/22 20:36 Miscellaneous Information (*[facility]*Pharmacy Consult In Progress) 1 ea N/A UD PRN PRN Reason: Consult Stop: 01/31/22 12:16 Multivitamins (Multivitamin Tab) 1 tab PO QAM [facility] Stop: 01/31/22 08:59 Last Admin: 01/02/22 07:44 Dose: 1 tab Documented by: Ondansetron HCl (Ondansetron Inj 2 Mg/Ml 2 Ml Vial) 4 mg IV Q6H PRN PRN Reason: Nausea Stop: 01/30/22 18:39 Pantoprazole Sodium (Pantoprazole 40 Mg Tab) 40 mg PO BID [facility] Stop: 01/30/22 20:59 Last Admin: 01/02/22 08:34 Dose: 40 mg Documented by: Potassium Chloride (Potassium Chloride 10 Meq Tabcr) 10 meq PO BIDM [facility] Stop: 01/31/22 07:59 Last Admin: 01/02/22 07:44 Dose: 10 meq Documented by: Ropinirole HCl (Ropinirole Hcl 1 Mg Tablet) 1 mg PO QID@0000,0600,1200,1800 [facility] Stop: 01/31/22 00:00 Last Admin: 01/02/22 12:04 Dose: 1 mg Documented by: Tizanidine HCl (Tizanidine Hcl 4 Mg Tablet) 4 mg PO BID@0000,1200 [facility] Stop: 01/31/22 00:00 Last Admin: 01/02/22 12:04 Dose: 4 mg Documented by: Warfarin Sodium (Warfarin Sod 6 Mg Tab) 6 mg PO SuTuWeThFrSa@1600 [facility] Stop: 02/01/22 15:59 Warfarin Sodium (Warfarin Sod 7.5 Mg Tab) 7.5 mg PO Mo@1600 [facility] Stop: 02/04/22 15:59 (1) Sepsis Sepsis type: sepsis due to unspecified organism
[2022-01-02] MEDS: WARFARIN SOD 6 MG TAB PO SCH (16:54)
[2022-01-02] MEDS: VANCOMYCIN HCL 125 MG/2.5ML SOLN PO SCH (22:22)
[2022-01-02] MEDS: RASPBERRY SYRUP 5 ML UDP PO SCH (22:22)
[2022-01-02] MEDS: HYOSCYAMINE SULFATE 0.125 MG TAB PO SCH (22:24)
[2022-01-03] MEDS: tiZANidine HCL 4 MG TABLET PO SCH ×3 (00:46→23:49)
[2022-01-03] MEDS: MAGNESIUM OXIDE 400 MG TAB PO SCH ×3 (00:47→23:50)
[2022-01-03] MEDS: rOPINIRole HCL 1 MG TABLET PO SCH ×5 (00:47→23:50)
[2022-01-03] MEDS: CYCLOBENZAPRINE HCL 5 MG TAB PO SCH ×2 (00:47→23:50)
[2022-01-03] MEDS: CEFTOLOZANE/TAZOBACTAM 1,500 MG in DEXTROSE 5% 100 ML IV SCH ×4 (00:50→23:52)
[2022-01-03] MEDS: HEPARIN SODIUM/DEXTROSE 25,000 UNITS/500 ML BAG IV SCH ×2 (03:04→17:53)
[2022-01-03] MEDS: ASCORBIC ACID 500 MG TAB PO SCH ×3 (06:23→16:56)
[2022-01-03] MEDS: GABAPENTIN 800 MG TAB PO SCH ×2 (06:24→16:56)
[2022-01-03 07:04] LABS: Basophils # (auto) 0.03 K/uL (0-0.2); Basophils % (auto) 0.2 %; Eosinophils # (auto) 0.46 K/uL (0-0.5); Eosinophils % (auto) 3.7 %; Hematocrit (blood only) 27.9 % (42-52); Hemoglobin 8.7 g/dL (14.0-18.0); Immature Granulocytes # (auto) 0.06 K/uL (0.00-0.02); Immature Granulocytes % (auto) 0.5 %; Lymphocytes % (auto) 17.7 %; Mean Corpuscular Hemoglobin 25.9 pg (25-34); Mean Corpuscular Hgb Conc 31.2 g/dL (32-36); Mean Platelet Volume 8.6 fL (7.4-10.4); Monocytes # (auto) 0.54 K/uL (0.11-0.59); Monocytes % (auto) 4.3 %; Neutrophils # (auto) 9.17 K/uL (1.4-6.5); Neutrophils % (auto) 73.6 %; Platelet Count 280 K/uL (130-400); RDW Coefficient of Variation 18.8 % (11.5-14.5); RDW Standard Deviation 56.9 fL (36.4-46.3); Red Blood Count 3.36 M/uL (4.7-6.1); White Blood Count 12.46 K/uL (4.8-10.8)
[2022-01-03 07:35] LABS: INR 1.3 (0.9-1.1); Prothrombin Time 13.2 Seconds (9.0-12.0)
[2022-01-03 07:59] LABS: Albumin Globulin Ratio 0.8 (0.9-2); Albumin Level 3.1 gm/dl (3.4-5.0); BUN Creatinine Ratio 16.5 (10-20); Bilirubin,Total 0.4 mg/dl (0.2-1.0); Calcium 8.9 mg/dl (8.5-10.1); Creatinine Clr Calc Pharmacy 112.1 ml/min; Est GFR (African American) 83.9 ml/min; Est GFR (Non-African American) 72.4 ml/min; Globulin 3.9 gm/dl (2.5-4.0); Potassium 4.1 mmol/L (3.5-5.1)
[2022-01-03] MEDS: COLLAGENASE OINT 30 GM TUBE TOP SCH (08:30)
[2022-01-03] MEDS: VANCOMYCIN HCL 125 MG/2.5ML SOLN PO SCH ×2 (08:30→21:32)
[2022-01-03] MEDS: INSULIN ASPART PER UNIT SC SCH ×4 (08:38→21:39)
[2022-01-03] MEDS: INSULIN HUMAN NPH SC SCH ×2 (08:39→17:10)
[2022-01-03] MEDS: LACTOBACILLUS ACIDOPHILUS 1 GM PACK PO SCH ×2 (08:48→21:29)
[2022-01-03] MEDS: DOCUSATE SODIUM 100 MG CAP PO SCH ×2 (08:48→21:32)
[2022-01-03] MEDS: PANTOprazole 40 MG TAB PO SCH ×2 (08:48→21:30)
[2022-01-03] MEDS: allopurinoL 100 MG TAB PO SCH ×2 (08:48→21:31)
[2022-01-03] MEDS: BACLOFEN 10 MG TAB PO SCH ×3 (08:49→21:31)
[2022-01-03] MEDS: ESCITALOPRAM OXALATE 20 MG TAB PO SCH (08:50)
[2022-01-03] MEDS: MULTIVITAMIN TAB PO SCH (08:50)
[2022-01-03] MEDS: POTASSIUM CHLORIDE 10 MEQ TABCR PO SCH ×2 (08:50→16:55)
[2022-01-03] MEDS: FERROUS GLUCONATE 324 MG TAB PO SCH (08:50)
[2022-01-03] MEDS: RASPBERRY SYRUP 5 ML UDP PO SCH ×2 (08:50→21:33)
[2022-01-03 09:39] LABS: Partial Thromboplastin Ratio 1.9
--- NOTE | 2022-01-03 15:07 | Hospitalist Progress Note ---
Date of Service January 03, 2022 Assessment & Plan (1) Sepsis: Plan: Patient is 61 y/o M with history of MRSA/VRE/MDR Pseudomonas,sacral decubitus wounds, osteomyelitis, sepsis s/p surgical debridement in 09/2021, c/o lethargy for the past 3 days. Reports past 1 to 2 weeks has noted an opening to sacral area that concern underlying tunnel. CT abdomen pelvis: Redemonstration of a sacral decubitus ulcer which extends to the underlying bone. Interval resolution of the abscess shown on prior CT of September 06, 2021 and significant improvement in cellulitis. Interval bone loss involving the inferior sacrum and upper to mid coccyx since prior CT. This bone loss could be due to interval osteomyelitis or resection/debridement. Small portion of remaining coccyx may be exposed. Left inferior gluteal ulcer which extends to the underlying left ischial tuberosity, similar to prior CT. No evidence for acute osteomyelitis of the left ischial tuberosity. Received IV daptomycin, ceftazidime/avibactam in the ER Blood cultures negative Wound cx -May need WBC without any organism, culture showed gram-positive cocci Surgery on board -appreciate input and recommendation. No debridement Continue daptomycin IV abx ceftazidime/avibactam changed to Ceftolozane/Tazobactam base on previous sensitivity Surgery team called the and answered all questions White count has been improving Appreciate ID input and recommendation to continue Dapto and Avycaz for now with history of MDRO. P.o. Vanco 125 mg twice daily has been started as prophylaxis against C. difficile Awaiting final culture and sensitivity report (2) Sacral wound: Plan: Pressure ulcer of sacral region, stage 4 POA Please see the picture for complete viewing of the wound (3) Seizure disorder: Plan: Reported history of seizure disorder diagnosed at [facility] [place] Possible myoclonic jerk in th setting of sepsis CT head showed no acute intracranial abnormality Neuro on board - not recommend starting AED or seizure medication. If episodes become more frequent, will consider ambulatory EEG as outpatient. 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 Does not use CPAP Continue oxygen at bedtime History DVT s/p IVC filter on chronic anticoagulation INR: 1.9 today Currently on Heparin IV drip Will resume Coumadin Will D/C IV heparin drip once INR above 2 INR is 1.6 today-we will continue intravenous heparin INR is 1.3 and will continue Coumadin and heparin for now Elevated TSH TSH: 12.7 Free T4 WNL Follow-up outpatient Chronic anemia Hgb: 9.3. Baseline 9-10 No signs symptoms of active bleeding Continue iron supplement HTN Hold Lasix, spironolactone Dyslipidemia Hold statin while on daptomycin Obesity BMI: 45 DVT Prophylaxis On IV heparin/Coumadin resumed Full code Admission and Anticipated Discharge Date Admission Date: December 31, 2021 Subjective 01/02/2022 The patient was seen and examined in the telemetry unit He has been feeling much better and denies any significant symptoms He has had interview with the ID specialist in [place] and awaiting further guidance regarding antibiotic Denies any fever and or chills, increasing pain, nausea or vomiting 01/03/2022 The patient was seen and examined in the telemetry unit He remains stable without any significant symptoms Denies any fever and or chills Review of Systems Review of Systems: All systems reviewed and are unremarkable except as noted below Physical Exam Physical Exam: Lying in bed comfortably Constitutional: well developed, well nourished and + obese; not ill appearing Eyes: PERRL, conjunctivae normal, anicteric sclerae ENMT: external ear and nose normal, oropharynx normal Neck: trachea midline, no thyromegaly Respiratory: no respiratory distress Auscultation: lungs clear to auscultation bilaterally and + diminished lung sounds Cardiovascular: Rate/Rhythm: regular rate and regular rhythm; not tachycardic Heart Sounds: normal S1 and normal S2; no murmur Extremities: + edema (Trace edema bilaterally) Gastrointestinal (Abdomen): Inspection/Auscultation: + abdomen abnormal to inspection (Has colostomy bag in the left lower quadrant) and abdomen not distended Percussion/Palpation: abdomen soft; abdomen nontender Neurologic: moves all extremities (Has paraplegia) and awake Psychiatric: A+Ox3, euthymic affect Lymphatic: no cervical or axillary lymphadenopathy Results & Data Results & Data ([facility]) Vital Signs (Past 12 Hours) Vital Signs Temp Pulse Pulse Resp BP Pulse Ox 01/03/22 11:37 36.7 C 86 19 125/62 96 01/03/22 08:00 76 01/03/22 07:45 36.7 C 77 18 120/65 93 01/03/22 03:46 36.8 C 74 18 115/60 93 Laboratory Results Short CBC 01/03/22 Range/Units 06:23 WBC 12.46 H (4.8-10.8) K/uL Hgb 8.7 L (14.0-18.0) g/dL Hct 27.9 L (42-52) % Plt Count 280 (130-400) K/uL BMP 01/03/22 06:23 Sodium 134 L Potassium 4.1 Chloride 97 L Carbon Dioxide 30 BUN 18 Creatinine 1.09 Glucose 178 H Calcium 8.9 Liver Function 01/03/22 Range/Units 06:23 Total Bilirubin 0.4 (0.2-1.0) mg/dl AST 10 L (13-39) U/L ALT 7 (7-52) U/L Alkaline Phosphatase 44 (34-104) U/L Albumin 3.1 L (3.4-5.0) gm/dl Medications Administered Current Inpatient Medications Acetaminophen (Acetaminophen 325 Mg Tab) 650 mg PO Q4H PRN PRN Reason: Pain or Fever Stop: 01/30/22 18:39 Allopurinol (Allopurinol 100 Mg Tab) 100 mg PO BID JO Stop: 01/30/22 20:59 Last Admin: 01/03/22 08:48 Dose: 100 mg Documented by: Ascorbic Acid (Ascorbic Acid 500 Mg Tab) 250 mg PO TID@0600,1200,1800 JO Stop: 01/30/22 20:59 Last Admin: 01/03/22 12:00 Dose: 250 mg Documented by: Baclofen (Baclofen 10 Mg Tab) 5 mg PO TID JO Stop: 01/30/22 20:59 Last Admin: 01/03/22 08:49 Dose: 5 mg Documented by: Collagenase (Collagenase Oint 30 Gm Tube) 1 appln TOP DAILY JO Stop: 01/31/22 08:59 Last Admin: 01/03/22 08:30 Dose: 1 appln Documented by: Cyclobenzaprine HCl (Cyclobenzaprine Hcl 5 Mg Tab) 15 mg PO 0000 [facility] Stop: 01/31/22 00:00 Last Admin: 01/03/22 00:47 Dose: 15 mg Documented by: Dextrose (Dextrose 50% 50 Ml Syringe) 25 - 50 ml IV UD PRN; Protocol PRN Reason: Hypoglycemia Protocol Stop: 01/30/22 18:39 Docusate Sodium (Docusate Sodium 100 Mg Cap) 100 mg PO AMHS [facility] Stop: 01/30/22 20:59 Last Admin: 01/03/22 08:48 Dose: 100 mg Documented by: Escitalopram Oxalate (Escitalopram Oxalate 20 Mg Tab) 20 mg PO QAM [facility] Stop: 01/31/22 08:59 Last Admin: 01/03/22 08:50 Dose: 20 mg Documented by: Ferrous Gluconate (Ferrous Gluconate 324 Mg Tab) 324 mg PO QAM [facility] Stop: 01/31/22 08:59 Last Admin: 01/03/22 08:50 Dose: 324 mg Documented by: Gabapentin (Gabapentin 800 Mg Tab) 800 mg PO BID@0600,1800 [facility] Stop: 01/30/22 20:59 Last Admin: 01/03/22 06:24 Dose: 800 mg Documented by: Glucagon (Glucagon For Inj 1 Mg Vial) 1 mg SQ UD PRN; Protocol PRN Reason: Hypoglycemia Protocol Stop: 01/30/22 18:39 Glucose (Glucose 10 Tabs/Tube) 4 - 8 tabs PO UD PRN; Protocol PRN Reason: Hypoglycemia Protocol Stop: 01/30/22 18:39 Glucose (Glucose 40% Gel 15 Gm Tube) 15 - 30 gm PO UD PRN; Protocol PRN Reason: Hypoglycemia Protocol Stop: 01/30/22 18:39 Hyoscyamine (Hyoscyamine Sulfate 0.125 Mg Tab) 0.125 mg PO QPM [facility] Stop: 01/30/22 20:59 Last Admin: 01/02/22 22:24 Dose: 0.125 mg Documented by: Heparin Sodium/Dextrose (Heparin Sodium/Dextrose) 25,000 units in 500 mls @ 35 mls/hr IV .[id number] [facility]; Protocol Stop: 01/30/22 20:44 Last Titration: 01/03/22 09:00 Dose: 1,750 units/hr, 35 mls/hr Documented by: Ceftolozane/Tazobactam 1,500 (mg/ Dextrose) 111.4 mls @ 111.4 mls/hr IV Q8H [facility]; Protocol Stop: 01/09/22 00:00 Last Infusion: 01/03/22 10:20 Dose: Infused Documented by: Daptomycin 900 mg/ Syringe 18 mls @ 9 mls/min IV Q24H [facility]; Protocol Stop: 02/12/22 14:59 Last Admin: 01/02/22 14:18 Dose: 9 mls/min Documented by: Insulin Aspart (Insulin Aspart Per Unit) 0 units SC ACHS [facility]; Protocol Stop: 01/30/22 20:59 Last Admin: 01/03/22 11:53 Dose: 21 units Documented by: Insulin Human NPH (Insulin Human Nph) 65 units SC BIDM [facility]; Protocol Stop: 02/02/22 07:59 Last Admin: 01/03/22 08:39 Dose: 65 units Documented by: Lactobacillus Acidophilus (Lactobacillus Acidophilus 1 Gm Pack) 1 gm PO BID [facility] Stop: 01/30/22 20:59 Last Admin: 01/03/22 08:48 Dose: 1 gm Documented by: Magnesium Oxide (Magnesium Oxide 400 Mg Tab) 400 mg PO BID@0000,1200 [facility] Stop: 01/31/22 00:00 Last Admin: 01/03/22 12:01 Dose: 400 mg Documented by: Miscellaneous (Carbohydrates For Hypoglycemia ) 15 - 30 gm PO UD PRN PRN Reason: Hypoglycemia Protocol Stop: 01/30/22 18:39 Miscellaneous Information (Pharmacy Glycemic Mgmt Consult) 1 ea N/A UD PRN PRN Reason: Consult Stop: 01/30/22 18:39 Miscellaneous Information (Daptomycin Consult Active) 1 ea N/A UD PRN PRN Reason: Consult Stop: 01/30/22 20:36 Miscellaneous Information (*[facility]*Pharmacy Consult In Progress) 1 ea N/A UD PRN PRN Reason: Consult Stop: 01/31/22 12:16 Multivitamins (Multivitamin Tab) 1 tab PO QAM [facility] Stop: 01/31/22 08:59 Last Admin: 01/03/22 08:50 Dose: 1 tab Documented by: Ondansetron HCl (Ondansetron Inj 2 Mg/Ml 2 Ml Vial) 4 mg IV Q6H PRN PRN Reason: Nausea Stop: 01/30/22 18:39 Pantoprazole Sodium (Pantoprazole 40 Mg Tab) 40 mg PO BID [facility] Stop: 01/30/22 20:59 Last Admin: 01/03/22 08:48 Dose: 40 mg Documented by: Potassium Chloride (Potassium Chloride 10 Meq Tabcr) 10 meq PO BIDM [facility] Stop: 01/31/22 07:59 Last Admin: 01/03/22 08:50 Dose: 10 meq Documented by: Raspberry (Raspberry Syrup 5 Ml Udp) 5 ml PO BID [facility] Stop: 02/01/22 20:59 Last Admin: 01/03/22 08:50 Dose: 5 ml Documented by: Ropinirole HCl (Ropinirole Hcl 1 Mg Tablet) 1 mg PO QID@0000,0600,1200,1800 [facility] Stop: 01/31/22 00:00 Last Admin: 01/03/22 12:01 Dose: 1 mg Documented by: Tizanidine HCl (Tizanidine Hcl 4 Mg Tablet) 4 mg PO BID@0000,1200 [facility] Stop: 01/31/22 00:00 Last Admin: 01/03/22 12:00 Dose: 4 mg Documented by: Vancomycin HCl (Vancomycin Hcl 125 Mg/2.5ml Soln) 125 mg PO BID [facility] Stop: 02/01/22 20:59 Last Admin: 01/03/22 08:30 Dose: 125 mg Documented by: Warfarin Sodium (Warfarin Sod 6 Mg Tab) 6 mg PO SuTuWeThFrSa@1600 [facility] Stop: 02/01/22 15:59 Last Admin: 01/02/22 16:54 Dose: 6 mg Documented by: Warfarin Sodium (Warfarin Sod 7.5 Mg Tab) 7.5 mg PO Mo@1600 [facility] Stop: 02/04/22 15:59 (1) Sepsis Sepsis type: sepsis due to unspecified organism
[2022-01-03] MEDS: DAPTOmycin 900 MG in SYRINGE 0 ML IV SCH (16:53)
[2022-01-03] MEDS: WARFARIN SOD 6 MG TAB PO SCH (16:57)
[2022-01-03] MEDS: HYOSCYAMINE SULFATE 0.125 MG TAB PO SCH (21:30)
[2022-01-04] MEDS: ASCORBIC ACID 500 MG TAB PO SCH ×3 (05:41→16:57)
[2022-01-04] MEDS: rOPINIRole HCL 1 MG TABLET PO SCH ×4 (05:41→23:28)
[2022-01-04] MEDS: GABAPENTIN 800 MG TAB PO SCH ×2 (05:42→16:57)
[2022-01-04 07:34] LABS: INR 1.2 (0.9-1.1); Prothrombin Time 12.7 Seconds (9.0-12.0)
[2022-01-04] MEDS: INSULIN ASPART PER UNIT SC SCH ×4 (07:50→21:15)
[2022-01-04] MEDS: INSULIN HUMAN NPH SC SCH ×2 (07:51→16:51)
[2022-01-04] MEDS: CEFTOLOZANE/TAZOBACTAM 1,500 MG in DEXTROSE 5% 100 ML IV SCH ×3 (08:03→23:25)
[2022-01-04] MEDS: POTASSIUM CHLORIDE 10 MEQ TABCR PO SCH ×2 (08:04→16:51)
[2022-01-04] MEDS: LACTOBACILLUS ACIDOPHILUS 1 GM PACK PO SCH ×2 (08:04→21:12)
[2022-01-04] MEDS: PANTOprazole 40 MG TAB PO SCH ×2 (08:04→21:15)
[2022-01-04] MEDS: ESCITALOPRAM OXALATE 20 MG TAB PO SCH (08:04)
[2022-01-04] MEDS: MULTIVITAMIN TAB PO SCH (08:04)
[2022-01-04] MEDS: FERROUS GLUCONATE 324 MG TAB PO SCH (08:05)
[2022-01-04] MEDS: RASPBERRY SYRUP 5 ML UDP PO SCH ×2 (08:05→21:16)
[2022-01-04] MEDS: COLLAGENASE OINT 30 GM TUBE TOP SCH (08:06)
[2022-01-04] MEDS: BACLOFEN 10 MG TAB PO SCH ×3 (08:06→21:13)
[2022-01-04] MEDS: DOCUSATE SODIUM 100 MG CAP PO SCH ×2 (08:06→21:12)
[2022-01-04] MEDS: allopurinoL 100 MG TAB PO SCH ×2 (08:06→21:14)
[2022-01-04] MEDS: VANCOMYCIN HCL 125 MG/2.5ML SOLN PO SCH ×2 (08:08→21:15)
[2022-01-04 08:26] LABS: Partial Thromboplastin Ratio 1.7
[2022-01-04 08:27] LABS: Partial Thromboplastin Time 46.9 Seconds (21.0-31.0)
[2022-01-04] MEDS: HEPARIN SODIUM/DEXTROSE 25,000 UNITS/500 ML BAG IV SCH ×2 (08:41→23:25)
--- NOTE | 2022-01-04 10:02 | Pharmacy Report ---
Pharmacy Glycemic Short Note 2 - Date of Service January 04, 2022 - Glycemic Short BSG Results (Last 24 hours): 01/03/22 01/03/22 01/03/22 11:13 16:20 20:37 POC Glucose 245 H 274 H 208 H 01/04/22 06:59 POC Glucose 154 H OUTPATIENT ANTIDIABETIC REGIMEN: * Novolin 70/30 - 60 units SQ BIDM * Novolin R SSI * Metformin 1000 mg PO BIDM * HbA1c = 7.2% (09/23/21) ASSESSMENT: 01/04/22: * Mr Rodriguez was hyperglycemic throughout the day yesterday. NPH was increased and Novolog parameters were tightened. * Fasting BSG is reasonable this morning, so will continue current dose of NPH. * Novolog parameters were further tightened last evening. Will consider more adjustments if BSGs remain elevated. 01/02 * BSGs well controlled yesterday 144-166 mg/dL * NPH increased to 60 units BIDM with start of diet * Fasting 153 mg/dL. Will continue 60 BIDM for now * Lunch BSG elevated, will tighten carb ratio. 01/01 * 61 yo M admitted secondary to sacral wound cellulitis. Stressors remain stable with infection and abx. Pharmacy has been consulted to assist with inpatient glycemic management. Patient is well known to our service. * BSG in ED was 179 mg/dL. Patient did take AM insulin doses and Metformin at home prior to admission. Upon transfer to the floors, BSG was 137 mg/dL. No PM basal insulin was given. Did receive Novolog for correctional/prandial needs overnight. * Fasting BSG was 157 mg/dL. Patient was initially NPO for possibility of surgeryl; however, this has been ruled out and T2DM has been ordered to start with lunch. * Gave 30 units of NPH (70% of home dose) this AM for NPO status. * Now that patient is eating, will tighten carb ratio as likely that BSGs will trend upwards given basal deficiency. * Will give 60 units of NPH this evening which will closely resemble total home basal dose for today. * No overnight checks necessary. Will target tighter goal range to help with wound healing and prevent further infection. PLAN FOR INPATIENT GLYCEMIC CONTROL: * Hold outpatient oral diabetes medications * Basal insulin * NPH 65 units SQ BID with meals * Bolus insulin * NovoLog per scale ACHS or Q6hrs while NPO * Goal Range: Low 110 mg/dL - High 140 mg/dL * Correction Factor: 8 mg/dL/unit * Nutritional / Prandial insulin per carb ratio of 1 unit per 2 grams CHO consumed
[2022-01-04] MEDS: tiZANidine HCL 4 MG TABLET PO SCH ×2 (13:20→23:28)
[2022-01-04] MEDS: MAGNESIUM OXIDE 400 MG TAB PO SCH ×2 (13:20→23:28)
--- NOTE | 2022-01-04 14:04 | Hospitalist Progress Note ---
Date of Service January 04, 2022 Assessment & Plan (1) Sepsis: Plan: Patient is 61 y/o M with history of MRSA/VRE/MDR Pseudomonas,sacral decubitus wounds, osteomyelitis, sepsis s/p surgical debridement in 09/2021, c/o lethargy for the past 3 days. Reports past 1 to 2 weeks has noted an opening to sacral area that concern underlying tunnel. CT abdomen pelvis: Redemonstration of a sacral decubitus ulcer which extends to the underlying bone. Interval resolution of the abscess shown on prior CT of September 06, 2021 and significant improvement in cellulitis. Interval bone loss involving the inferior sacrum and upper to mid coccyx since prior CT. This bone loss could be due to interval osteomyelitis or resection/debridement. Small portion of remaining coccyx may be exposed. Left inferior gluteal ulcer which extends to the underlying left ischial tuberosity, similar to prior CT. No evidence for acute osteomyelitis of the left ischial tuberosity. Received IV daptomycin, ceftazidime/avibactam in the ER Blood cultures negative Wound cx -May need WBC without any organism, culture showed gram-positive cocci Surgery on board -appreciate input and recommendation. No debridement Continue daptomycin IV abx ceftazidime/avibactam changed to Ceftolozane/Tazobactam base on previous sensitivity Surgery team called the and answered all questions White count has been improving Appreciate ID input and recommendation to continue Dapto and Avycaz for now with history of MDRO. P.o. Vanco 125 mg twice daily has been started as prophylaxis against C. difficile Preliminary wound culture is growing Enterococcus faecalis and is sensitive to ampicillin, daptomycin, penicillin, streptomycin and vancomycin Patient remained stable Will discuss with the ID specialist tomorrow when the final results are back (2) Sacral wound: Plan: Pressure ulcer of sacral region, stage 4 POA Please see the picture for complete viewing of the wound No drainage from the sacral wound-seems to be healing nicely (3) Seizure disorder: Plan: Reported history of seizure disorder diagnosed at [facility] Possible myoclonic jerk in th setting of sepsis CT head showed no acute intracranial abnormality Neuro on board - not recommend starting AED or seizure medication. If episodes become more frequent, will consider ambulatory EEG as outpatient. 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 Does not use CPAP Continue oxygen at bedtime History DVT s/p IVC filter on chronic anticoagulation INR: 1.9 today Currently on Heparin IV drip Will resume Coumadin Will D/C IV heparin drip once INR above 2 INR is 1.6 today-we will continue intravenous heparin INR is 1.3 and will continue Coumadin and heparin for now We will increase the dose of Coumadin has INR is 1.2 today Elevated TSH TSH: 12.7 Free T4 WNL Follow-up outpatient Chronic anemia Hgb: 9.3. Baseline 9-10 No signs symptoms of active bleeding Continue iron supplement HTN Hold Lasix, spironolactone Dyslipidemia Hold statin while on daptomycin Obesity BMI: 45 DVT Prophylaxis On IV heparin/Coumadin resumed Full code Admission and Anticipated Discharge Date Admission Date: December 31, 2021 Subjective 01/02/2022 The patient was seen and examined in the telemetry unit He has been feeling much better and denies any significant symptoms He has had interview with the ID specialist in [place] and awaiting further guidance regarding antibiotic Denies any fever and or chills, increasing pain, nausea or vomiting 01/03/2022 The patient was seen and examined in the telemetry unit He remains stable without any significant symptoms Denies any fever and or chills 01/04/2022 The patient was seen and examined in telemetry unit He has been feeling much better and denies any significant symptoms Denies any fever and chills, no pain over sacral area Review of Systems Review of Systems: All systems reviewed and are unremarkable except as noted below Physical Exam Physical Exam: Lying in bed comfortably Constitutional: well developed, well nourished and + obese; not ill appearing Eyes: PERRL, conjunctivae normal, anicteric sclerae ENMT: external ear and nose normal, oropharynx normal Neck: trachea midline, no thyromegaly Respiratory: no respiratory distress Auscultation: lungs clear to auscultation bilaterally and + diminished lung sounds Cardiovascular: Rate/Rhythm: regular rate and regular rhythm; not tachycardic Heart Sounds: normal S1 and normal S2; no murmur Extremities: + edema (Trace edema bilaterally) Gastrointestinal (Abdomen): Inspection/Auscultation: + abdomen abnormal to inspection (Has colostomy bag in the left lower quadrant) and abdomen not distended Percussion/Palpation: abdomen soft; abdomen nontender Musculoskeletal: No acute arthritis in any joint Skin: Please look at the picture to review sacral wound Neurologic: moves all extremities (Has paraplegia) and awake Psychiatric: A+Ox3, euthymic affect Lymphatic: no cervical or axillary lymphadenopathy Results & Data Results & Data ([facility]) Vital Signs (Past 12 Hours) Vital Signs Temp Pulse Pulse Resp BP Pulse Ox 01/04/22 11:29 37.0 C 91 H 20 111/61 94 01/04/22 10:59 76 01/04/22 08:13 36.8 C 83 18 130/66 94 01/04/22 03:17 36.8 C 79 18 115/70 98 Medications Administered Current Inpatient Medications Acetaminophen (Acetaminophen 325 Mg Tab) 650 mg PO Q4H PRN PRN Reason: Pain or Fever Stop: 01/30/22 18:39 Allopurinol (Allopurinol 100 Mg Tab) 100 mg PO BID [facility] Stop: 01/30/22 20:59 Last Admin: 01/04/22 08:06 Dose: 100 mg Documented by: Ascorbic Acid (Ascorbic Acid 500 Mg Tab) 250 mg PO TID@0600,1200,1800 [facility] Stop: 01/30/22 20:59 Last Admin: 01/04/22 13:20 Dose: 250 mg Documented by: Baclofen (Baclofen 10 Mg Tab) 5 mg PO TID [facility] Stop: 01/30/22 20:59 Last Admin: 01/04/22 13:21 Dose: 5 mg Documented by: Collagenase (Collagenase Oint 30 Gm Tube) 1 appln TOP DAILY [facility] Stop: 01/31/22 08:59 Last Admin: 01/04/22 08:06 Dose: 1 appln Documented by: Cyclobenzaprine HCl (Cyclobenzaprine Hcl 5 Mg Tab) 15 mg PO 0000 [facility] Stop: 01/31/22 00:00 Last Admin: 01/03/22 23:50 Dose: 15 mg Documented by: Dextrose (Dextrose 50% 50 Ml Syringe) 25 - 50 ml IV UD PRN; Protocol PRN Reason: Hypoglycemia Protocol Stop: 01/30/22 18:39 Docusate Sodium (Docusate Sodium 100 Mg Cap) 100 mg PO AMHS [facility] Stop: 01/30/22 20:59 Last Admin: 01/04/22 08:06 Dose: 100 mg Documented by: Escitalopram Oxalate (Escitalopram Oxalate 20 Mg Tab) 20 mg PO QAM [facility] Stop: 01/31/22 08:59 Last Admin: 01/04/22 08:04 Dose: 20 mg Documented by: Ferrous Gluconate (Ferrous Gluconate 324 Mg Tab) 324 mg PO QAM [facility] Stop: 01/31/22 08:59 Last Admin: 01/04/22 08:05 Dose: 324 mg Documented by: Gabapentin (Gabapentin 800 Mg Tab) 800 mg PO BID@0600,1800 [facility] Stop: 01/30/22 20:59 Last Admin: 01/04/22 05:42 Dose: 800 mg Documented by: Glucagon (Glucagon For Inj 1 Mg Vial) 1 mg SQ UD PRN; Protocol PRN Reason: Hypoglycemia Protocol Stop: 01/30/22 18:39 Glucose (Glucose 10 Tabs/Tube) 4 - 8 tabs PO UD PRN; Protocol PRN Reason: Hypoglycemia Protocol Stop: 01/30/22 18:39 Glucose (Glucose 40% Gel 15 Gm Tube) 15 - 30 gm PO UD PRN; Protocol PRN Reason: Hypoglycemia Protocol Stop: 01/30/22 18:39 Hyoscyamine (Hyoscyamine Sulfate 0.125 Mg Tab) 0.125 mg PO QPM [facility] Stop: 01/30/22 20:59 Last Admin: 01/03/22 21:30 Dose: 0.125 mg Documented by: Heparin Sodium/Dextrose (Heparin Sodium/Dextrose) 25,000 units in 500 mls @ 35 mls/hr IV .[id number] [facility]; Protocol Stop: 01/30/22 20:44 Last Admin: 01/04/22 08:41 Dose: 1,750 units/hr, 35 mls/hr Documented by: Ceftolozane/Tazobactam 1,500 (mg/ Dextrose) 111.4 mls @ 111.4 mls/hr IV Q8H [facility]; Protocol Stop: 01/09/22 00:00 Last Infusion: 01/04/22 09:42 Dose: Infused Documented by: Daptomycin 900 mg/ Syringe 18 mls @ 9 mls/min IV Q24H [facility]; Protocol Stop: 02/12/22 14:59 Last Admin: 01/03/22 16:53 Dose: 9 mls/min Documented by: Insulin Aspart (Insulin Aspart Per Unit) 0 units SC ACHS [facility]; Protocol Stop: 01/30/22 20:59 Last Admin: 01/04/22 12:00 Dose: 17 units Documented by: Insulin Human NPH (Insulin Human Nph) 65 units SC BIDM [facility]; Protocol Stop: 02/02/22 07:59 Last Admin: 01/04/22 07:51 Dose: 65 units Documented by: Lactobacillus Acidophilus (Lactobacillus Acidophilus 1 Gm Pack) 1 gm PO BID [facility] Stop: 01/30/22 20:59 Last Admin: 01/04/22 08:04 Dose: 1 gm Documented by: Magnesium Oxide (Magnesium Oxide 400 Mg Tab) 400 mg PO BID@0000,1200 [facility] Stop: 01/31/22 00:00 Last Admin: 01/04/22 13:20 Dose: 400 mg Documented by: Miscellaneous (Carbohydrates For Hypoglycemia ) 15 - 30 gm PO UD PRN PRN Reason: Hypoglycemia Protocol Stop: 01/30/22 18:39 Miscellaneous Information (Pharmacy Glycemic Mgmt Consult) 1 ea N/A UD PRN PRN Reason: Consult Stop: 01/30/22 18:39 Miscellaneous Information (Daptomycin Consult Active) 1 ea N/A UD PRN PRN Reason: Consult Stop: 01/30/22 20:36 Miscellaneous Information (*[facility]*Pharmacy Consult In Progress) 1 ea N/A UD PRN PRN Reason: Consult Stop: 01/31/22 12:16 Multivitamins (Multivitamin Tab) 1 tab PO QAM [facility] Stop: 01/31/22 08:59 Last Admin: 01/04/22 08:04 Dose: 1 tab Documented by: Ondansetron HCl (Ondansetron Inj 2 Mg/Ml 2 Ml Vial) 4 mg IV Q6H PRN PRN Reason: Nausea Stop: 01/30/22 18:39 Pantoprazole Sodium (Pantoprazole 40 Mg Tab) 40 mg PO BID [facility] Stop: 01/30/22 20:59 Last Admin: 01/04/22 08:04 Dose: 40 mg Documented by: Potassium Chloride (Potassium Chloride 10 Meq Tabcr) 10 meq PO BIDM [facility] Stop: 01/31/22 07:59 Last Admin: 01/04/22 08:04 Dose: 10 meq Documented by: Raspberry (Raspberry Syrup 5 Ml Udp) 5 ml PO BID [facility] Stop: 02/01/22 20:59 Last Admin: 01/04/22 08:05 Dose: 5 ml Documented by: Ropinirole HCl (Ropinirole Hcl 1 Mg Tablet) 1 mg PO QID@0000,0600,1200,1800 [facility] Stop: 01/31/22 00:00 Last Admin: 01/04/22 13:20 Dose: 1 mg Documented by: Tizanidine HCl (Tizanidine Hcl 4 Mg Tablet) 4 mg PO BID@0000,1200 [facility] Stop: 01/31/22 00:00 Last Admin: 01/04/22 13:20 Dose: 4 mg Documented by: Vancomycin HCl (Vancomycin Hcl 125 Mg/2.5ml Soln) 125 mg PO BID [facility] Stop: 02/01/22 20:59 Last Admin: 01/04/22 08:08 Dose: 125 mg Documented by: Warfarin Sodium (Warfarin Sod 6 Mg Tab) 6 mg PO SuTuWeThFrSa@1600 [facility] Stop: 02/01/22 15:59 Last Admin: 01/03/22 16:57 Dose: 6 mg Documented by: Warfarin Sodium (Warfarin Sod 7.5 Mg Tab) 7.5 mg PO Mo@1600 [facility] Stop: 02/04/22 15:59 (1) Sepsis Sepsis type: sepsis due to unspecified organism
[2022-01-04] MEDS: DAPTOmycin 900 MG in SYRINGE 0 ML IV SCH (15:33)
[2022-01-04] MEDS: WARFARIN SOD 6 MG TAB PO SCH (15:37)
[2022-01-04] MEDS ORDERED: WARFARIN SOD 4 MG TAB PO ONE (16:00)
[2022-01-04] MEDS: HYOSCYAMINE SULFATE 0.125 MG TAB PO SCH (21:13)
[2022-01-04] MEDS: CYCLOBENZAPRINE HCL 5 MG TAB PO SCH (23:28)
[2022-01-05] MEDS: GABAPENTIN 800 MG TAB PO SCH ×2 (05:59→17:28)
[2022-01-05] MEDS: ASCORBIC ACID 500 MG TAB PO SCH ×3 (05:59→17:28)
[2022-01-05] MEDS: rOPINIRole HCL 1 MG TABLET PO SCH ×3 (06:00→17:28)
[2022-01-05 06:46] LABS: Hematocrit (blood only) 28.7 % (42-52); Hemoglobin 8.9 g/dL (14.0-18.0); Mean Corpuscular Hemoglobin 25.9 pg (25-34); Mean Corpuscular Volume 83.4 fL (80-100); Mean Platelet Volume 8.5 fL (7.4-10.4); Platelet Count 280 K/uL (130-400); RDW Coefficient of Variation 19.2 % (11.5-14.5); Red Blood Count 3.44 M/uL (4.7-6.1); White Blood Count 13.91 K/uL (4.8-10.8)
[2022-01-05 07:09] LABS: INR 1.2 (0.9-1.1); Partial Thromboplastin Ratio 1.6; Partial Thromboplastin Time 42.9 Seconds (21.0-31.0); Prothrombin Time 12.4 Seconds (9.0-12.0)
[2022-01-05 07:11] LABS: Albumin Globulin Ratio 0.8 (0.9-2); Albumin Level 3.2 gm/dl (3.4-5.0); BUN Creatinine Ratio 17.1 (10-20); Bilirubin,Total 0.4 mg/dl (0.2-1.0); Calcium 8.8 mg/dl (8.5-10.1); Creatinine Clr Calc Pharmacy 113.5 ml/min; Est GFR (African American) 87.7 ml/min; Est GFR (Non-African American) 75.7 ml/min; Globulin 3.8 gm/dl (2.5-4.0); Potassium 4.5 mmol/L (3.5-5.1)
[2022-01-05 07:12] LABS: ALC (manual) 1.21 K/uL (1.2-3.4); ANC (manual) 11.85 K/uL (1.4-6.5); Eosinophils # (manual) 0.24 K/uL (0-0.5); Eosinophils % (manual) 1.7 %; Lymphocytes # (manual) 1.21 K/uL (1.2-3.4); Lymphocytes % (manual) 8.7 %; Monocytes # (manual) 0.49 K/uL (0.11-0.59); Monocytes % (manual) 3.5 %; Myelocytes # (manual) 0.13 K/uL (0-0); Myelocytes % (manual) 0.9 %; Neutrophils # (manual) 11.85 K/uL (1.4-6.5); Neutrophils % (manual) 85.2 %
[2022-01-05] MEDS: INSULIN ASPART PER UNIT SC SCH ×4 (08:54→21:06)
[2022-01-05] MEDS: INSULIN HUMAN NPH SC SCH ×2 (08:54→17:31)
[2022-01-05] MEDS: CEFTOLOZANE/TAZOBACTAM 1,500 MG in DEXTROSE 5% 100 ML IV SCH ×2 (09:02→16:15)
[2022-01-05] MEDS: POTASSIUM CHLORIDE 10 MEQ TABCR PO SCH ×2 (09:03→17:28)
[2022-01-05] MEDS: FERROUS GLUCONATE 324 MG TAB PO SCH (09:03)
[2022-01-05] MEDS: ESCITALOPRAM OXALATE 20 MG TAB PO SCH (09:03)
[2022-01-05] MEDS: PANTOprazole 40 MG TAB PO SCH ×2 (09:04→21:06)
[2022-01-05] MEDS: COLLAGENASE OINT 30 GM TUBE TOP SCH (09:04)
[2022-01-05] MEDS: BACLOFEN 10 MG TAB PO SCH ×3 (09:05→21:06)
[2022-01-05] MEDS: MULTIVITAMIN TAB PO SCH (09:05)
[2022-01-05] MEDS: RASPBERRY SYRUP 5 ML UDP PO SCH ×2 (09:05→21:05)
[2022-01-05] MEDS: allopurinoL 100 MG TAB PO SCH ×2 (09:05→21:06)
[2022-01-05] MEDS: DOCUSATE SODIUM 100 MG CAP PO SCH ×2 (09:06→21:06)
[2022-01-05] MEDS: LACTOBACILLUS ACIDOPHILUS 1 GM PACK PO SCH ×2 (09:06→21:06)
[2022-01-05] MEDS: VANCOMYCIN HCL 125 MG/2.5ML SOLN PO SCH ×2 (09:12→21:07)
[2022-01-05] MEDS: tiZANidine HCL 4 MG TABLET PO SCH (13:21)
[2022-01-05] MEDS: MAGNESIUM OXIDE 400 MG TAB PO SCH (13:21)
[2022-01-05 14:40] LABS: Partial Thromboplastin Ratio 1.5; Partial Thromboplastin Time 40.7 Seconds (21.0-31.0)
[2022-01-05] MEDS ORDERED: WARFARIN SOD 7.5 MG TAB PO SCH (16:00)
--- NOTE | 2022-01-05 17:05 | Hospitalist Progress Note ---
Date of Service January 05, 2022 Assessment & Plan (1) Sepsis: Plan: Patient is 61 y/o M with history of MRSA/VRE/MDR Pseudomonas,sacral decubitus wounds, osteomyelitis, sepsis s/p surgical debridement in 09/2021, c/o lethargy for the past 3 days. Reports past 1 to 2 weeks has noted an opening to sacral area that concern underlying tunnel. CT abdomen pelvis: Redemonstration of a sacral decubitus ulcer which extends to the underlying bone. Interval resolution of the abscess shown on prior CT of September 06, 2021 and significant improvement in cellulitis. Interval bone loss involving the inferior sacrum and upper to mid coccyx since prior CT. This bone loss could be due to interval osteomyelitis or resection/debridement. Small portion of remaining coccyx may be exposed. Left inferior gluteal ulcer which extends to the underlying left ischial tuberosity, similar to prior CT. No evidence for acute osteomyelitis of the left ischial tuberosity. Received IV daptomycin, ceftazidime/avibactam in the ER Blood cultures negative Wound cx -May need WBC without any organism, culture showed gram-positive cocci Surgery on board -appreciate input and recommendation. No debridement Continue daptomycin IV abx ceftazidime/avibactam changed to Ceftolozane/Tazobactam base on previous sensitivity Surgery team called the and answered all questions White count has been improving Appreciate ID input and recommendation to continue Dapto and Avycaz for now with history of MDRO. P.o. Vanco 125 mg twice daily has been started as prophylaxis against C. difficile Preliminary wound culture is growing Enterococcus faecalis and is sensitive to ampicillin, daptomycin, penicillin, streptomycin and vancomycin Patient remained stable Final culture is showing Enterococcus faecalis and a good telemetry length- sensitivity noted and will discuss with ID tomorrow (2) Sacral wound: Plan: Pressure ulcer of sacral region, stage 4 POA Please see the picture for complete viewing of the wound A lot of drainage noted today as per the wound care nurse and seems to be a sinus track in the wound Will ask surgery to reevaluate the case (3) Seizure disorder: Plan: Reported history of seizure disorder diagnosed at [facility] [place] Possible myoclonic jerk in th setting of sepsis CT head showed no acute intracranial abnormality Neuro on board - not recommend starting AED or seizure medication. If episodes become more frequent, will consider ambulatory EEG as outpatient. 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 Does not use CPAP Continue oxygen at bedtime History DVT s/p IVC filter on chronic anticoagulation INR: 1.9 today Currently on Heparin IV drip Will resume Coumadin Will D/C IV heparin drip once INR above 2 INR is 1.6 today-we will continue intravenous heparin INR is 1.3 and will continue Coumadin and heparin for now We will increase the dose of Coumadin has INR is 1.2 today Will give additional 4 mg Coumadin today Elevated TSH TSH: 12.7 Free T4 WNL Follow-up outpatient Chronic anemia Hgb: 9.3. Baseline 9-10 No signs symptoms of active bleeding Continue iron supplement HTN Hold Lasix, spironolactone Dyslipidemia Hold statin while on daptomycin Obesity BMI: 45 DVT Prophylaxis On IV heparin/Coumadin resumed We will give additional dose of Coumadin today Full code Admission and Anticipated Discharge Date Admission Date: December 31, 2021 Subjective 01/02/2022 The patient was seen and examined in the telemetry unit He has been feeling much better and denies any significant symptoms He has had interview with the ID specialist in [place] and awaiting further guidance regarding antibiotic Denies any fever and or chills, increasing pain, nausea or vomiting 01/03/2022 The patient was seen and examined in the telemetry unit He remains stable without any significant symptoms Denies any fever and or chills 01/04/2022 The patient was seen and examined in telemetry unit He has been feeling much better and denies any significant symptoms Denies any fever and chills, no pain over sacral area 01/05/2022 The patient was seen and examined in telemetry unit He remains a stable and asymptomatic He has paraplegia and remains generally weak and lethargic He was noted to have more drainage from the sacral wound today Review of Systems Review of Systems: All systems reviewed and are unremarkable except as noted below Physical Exam Physical Exam: Lying in bed comfortably Constitutional: well developed, well nourished and + obese; not ill appearing Eyes: PERRL, conjunctivae normal, anicteric sclerae ENMT: external ear and nose normal, oropharynx normal Neck: trachea midline, no thyromegaly Respiratory: no respiratory distress Auscultation: lungs clear to auscultation bilaterally and + diminished lung sounds Cardiovascular: Rate/Rhythm: regular rate and regular rhythm; not tachycardic Heart Sounds: normal S1 and normal S2; no murmur Extremities: + edema (Trace edema bilaterally) Gastrointestinal (Abdomen): Inspection/Auscultation: + abdomen abnormal to inspection (Has colostomy bag in the left lower quadrant) and abdomen not distended Percussion/Palpation: abdomen soft; abdomen nontender Musculoskeletal: No acute arthritis involving any joint Neurologic: awake Alert awake and oriented x3. Has paraplegia but no acute arthritis involving any joint Psychiatric: A+Ox3, euthymic affect Lymphatic: no cervical or axillary lymphadenopathy Results & Data Results & Data ([facility]) Vital Signs (Past 12 Hours) Vital Signs Temp Pulse Pulse Resp BP Pulse Ox 01/05/22 16:43 36.6 C 112 H 18 172/73 H 93 01/05/22 11:41 36.6 C 106 H 20 139/70 94 01/05/22 08:00 83 01/05/22 07:32 36.6 C 83 18 123/63 97 Laboratory Results Short CBC 01/05/22 Range/Units 06:14 WBC 13.91 H (4.8-10.8) K/uL Hgb 8.9 L (14.0-18.0) g/dL Hct 28.7 L (42-52) % Plt Count 280 (130-400) K/uL BMP 01/05/22 06:14 Sodium 133 L Potassium 4.5 Chloride 99 Carbon Dioxide 27 BUN 18 Creatinine 1.05 Glucose 182 H Calcium 8.8 Liver Function 01/05/22 Range/Units 06:14 Total Bilirubin 0.4 (0.2-1.0) mg/dl AST 11 L (13-39) U/L ALT 8 (7-52) U/L Alkaline Phosphatase 45 (34-104) U/L Albumin 3.2 L (3.4-5.0) gm/dl Medications Administered Current Inpatient Medications Acetaminophen (Acetaminophen 325 Mg Tab) 650 mg PO Q4H PRN PRN Reason: Pain or Fever Stop: 01/30/22 18:39 Allopurinol (Allopurinol 100 Mg Tab) 100 mg PO BID JO Stop: 01/30/22 20:59 Last Admin: 01/05/22 09:05 Dose: 100 mg Documented by: Ascorbic Acid (Ascorbic Acid 500 Mg Tab) 250 mg PO TID@0600,1200,1800 JO Stop: 01/30/22 20:59 Last Admin: 01/05/22 13:21 Dose: 250 mg Documented by: Baclofen (Baclofen 10 Mg Tab) 5 mg PO TID JO Stop: 01/30/22 20:59 Last Admin: 01/05/22 15:16 Dose: 5 mg Documented by: Collagenase (Collagenase Oint 30 Gm Tube) 1 appln TOP DAILY [facility] Stop: 01/31/22 08:59 Last Admin: 01/05/22 09:04 Dose: 1 appln Documented by: Cyclobenzaprine HCl (Cyclobenzaprine Hcl 5 Mg Tab) 15 mg PO 0000 [facility] Stop: 01/31/22 00:00 Last Admin: 01/04/22 23:28 Dose: 15 mg Documented by: Dextrose (Dextrose 50% 50 Ml Syringe) 25 - 50 ml IV UD PRN; Protocol PRN Reason: Hypoglycemia Protocol Stop: 01/30/22 18:39 Docusate Sodium (Docusate Sodium 100 Mg Cap) 100 mg PO [facility] Stop: 01/30/22 20:59 Last Admin: 01/05/22 09:06 Dose: 100 mg Documented by: Escitalopram Oxalate (Escitalopram Oxalate 20 Mg Tab) 20 mg PO QAM [facility] Stop: 01/31/22 08:59 Last Admin: 01/05/22 09:03 Dose: 20 mg Documented by: Ferrous Gluconate (Ferrous Gluconate 324 Mg Tab) 324 mg PO QAM [facility] Stop: 01/31/22 08:59 Last Admin: 01/05/22 09:03 Dose: 324 mg Documented by: Gabapentin (Gabapentin 800 Mg Tab) 800 mg PO BID@0600,1800 [facility] Stop: 01/30/22 20:59 Last Admin: 01/05/22 05:59 Dose: 800 mg Documented by: Glucagon (Glucagon For Inj 1 Mg Vial) 1 mg SQ UD PRN; Protocol PRN Reason: Hypoglycemia Protocol Stop: 01/30/22 18:39 Glucose (Glucose 10 Tabs/Tube) 4 - 8 tabs PO UD PRN; Protocol PRN Reason: Hypoglycemia Protocol Stop: 01/30/22 18:39 Glucose (Glucose 40% Gel 15 Gm Tube) 15 - 30 gm PO UD PRN; Protocol PRN Reason: Hypoglycemia Protocol Stop: 01/30/22 18:39 Hyoscyamine (Hyoscyamine Sulfate 0.125 Mg Tab) 0.125 mg PO QPM JO Stop: 01/30/22 20:59 Last Admin: 01/04/22 21:13 Dose: 0.125 mg Documented by: Heparin Sodium/Dextrose (Heparin Sodium/Dextrose) 25,000 units in 500 mls @ 39 mls/hr IV .[id number] [facility]; Protocol Stop: 01/30/22 20:44 Last Titration: 01/05/22 14:45 Dose: 1,950 units/hr, 39 mls/hr Documented by: Ceftolozane/Tazobactam 1,500 (mg/ Dextrose) 111.4 mls @ 111.4 mls/hr IV Q8H [facility]; Protocol Stop: 01/09/22 00:00 Last Infusion: 01/05/22 10:14 Dose: Infused Documented by: Daptomycin 900 mg/ Syringe 18 mls @ 9 mls/min IV Q24H [facility]; Protocol Stop: 02/12/22 14:59 Last Admin: 01/04/22 15:33 Dose: 9 mls/min Documented by: Insulin Aspart (Insulin Aspart Per Unit) 0 units SC ACHS [facility]; Protocol Stop: 01/30/22 20:59 Last Admin: 01/05/22 11:46 Dose: 22 units Documented by: Insulin Human NPH (Insulin Human Nph) 65 units SC BIDM [facility]; Protocol Stop: 02/02/22 07:59 Last Admin: 01/05/22 08:54 Dose: 65 units Documented by: Lactobacillus Acidophilus (Lactobacillus Acidophilus 1 Gm Pack) 1 gm PO BID [facility] Stop: 01/30/22 20:59 Last Admin: 01/05/22 09:06 Dose: 1 gm Documented by: Magnesium Oxide (Magnesium Oxide 400 Mg Tab) 400 mg PO BID@0000,1200 [facility] Stop: 01/31/22 00:00 Last Admin: 01/05/22 13:21 Dose: 400 mg Documented by: Miscellaneous (Carbohydrates For Hypoglycemia ) 15 - 30 gm PO UD PRN PRN Reason: Hypoglycemia Protocol Stop: 01/30/22 18:39 Miscellaneous Information (Pharmacy Glycemic Mgmt Consult) 1 ea N/A UD PRN PRN Reason: Consult Stop: 01/30/22 18:39 Miscellaneous Information (Daptomycin Consult Active) 1 ea N/A UD PRN PRN Reason: Consult Stop: 01/30/22 20:36 Miscellaneous Information (*[facility]*Pharmacy Consult In Progress) 1 ea N/A UD PRN PRN Reason: Consult Stop: 01/31/22 12:16 Multivitamins (Multivitamin Tab) 1 tab PO QAM JO Stop: 01/31/22 08:59 Last Admin: 01/05/22 09:05 Dose: 1 tab Documented by: Ondansetron HCl (Ondansetron Inj 2 Mg/Ml 2 Ml Vial) 4 mg IV Q6H PRN PRN Reason: Nausea Stop: 01/30/22 18:39 Pantoprazole Sodium (Pantoprazole 40 Mg Tab) 40 mg PO BID JO Stop: 01/30/22 20:59 Last Admin: 01/05/22 09:04 Dose: 40 mg Documented by: Potassium Chloride (Potassium Chloride 10 Meq Tabcr) 10 meq PO BIDM JO Stop: 01/31/22 07:59 Last Admin: 01/05/22 09:03 Dose: 10 meq Documented by: Raspberry (Raspberry Syrup 5 Ml Udp) 5 ml PO BID JO Stop: 02/01/22 20:59 Last Admin: 01/05/22 09:05 Dose: 5 ml Documented by: Ropinirole HCl (Ropinirole Hcl 1 Mg Tablet) 1 mg PO QID@0000,0600,1200,1800 [facility] Stop: 01/31/22 00:00 Last Admin: 01/05/22 13:21 Dose: 1 mg Documented by: Tizanidine HCl (Tizanidine Hcl 4 Mg Tablet) 4 mg PO BID@0000,1200 [facility] Stop: 01/31/22 00:00 Last Admin: 01/05/22 13:21 Dose: 4 mg Documented by: Vancomycin HCl (Vancomycin Hcl 125 Mg/2.5ml Soln) 125 mg PO BID [facility] Stop: 02/01/22 20:59 Last Admin: 01/05/22 09:12 Dose: 125 mg Documented by: Warfarin Sodium (Warfarin Sod 6 Mg Tab) 6 mg PO SuTuWeThFrSa@1600 [facility] Stop: 02/01/22 15:59 Last Admin: 01/04/22 15:37 Dose: 6 mg Documented by: Warfarin Sodium (Warfarin Sod 7.5 Mg Tab) 7.5 mg PO Mo@1600 [facility] Stop: 02/04/22 15:59 (1) Sepsis Sepsis type: sepsis due to unspecified organism
[2022-01-05] MEDS ORDERED: WARFARIN SOD 5 MG TAB PO ONE (17:15)
[2022-01-05] MEDS: DAPTOmycin 900 MG in SYRINGE 0 ML IV SCH (17:27)
[2022-01-05 20:54] LABS: Partial Thromboplastin Ratio 1.5
[2022-01-05] MEDS: HYOSCYAMINE SULFATE 0.125 MG TAB PO SCH (21:06)
[2022-01-06] MEDS: CYCLOBENZAPRINE HCL 5 MG TAB PO SCH (00:06)
[2022-01-06] MEDS: MAGNESIUM OXIDE 400 MG TAB PO SCH ×2 (00:06→13:14)
[2022-01-06] MEDS: rOPINIRole HCL 1 MG TABLET PO SCH ×4 (00:06→16:52)
[2022-01-06] MEDS: tiZANidine HCL 4 MG TABLET PO SCH ×2 (00:06→13:14)
[2022-01-06] MEDS: CEFTOLOZANE/TAZOBACTAM 1,500 MG in DEXTROSE 5% 100 ML IV SCH ×3 (00:06→16:36)
[2022-01-06] MEDS: HEPARIN SODIUM/DEXTROSE 25,000 UNITS/500 ML BAG IV SCH (03:00)
[2022-01-06 03:48] LABS: Hematocrit (blood only) 28.2 % (42-52); Hemoglobin 8.7 g/dL (14.0-18.0); Mean Corpuscular Hemoglobin 25.6 pg (25-34); Mean Corpuscular Hgb Conc 30.9 g/dL (32-36); Mean Corpuscular Volume 82.9 fL (80-100); Mean Platelet Volume 8.6 fL (7.4-10.4); Platelet Count 265 K/uL (130-400); RDW Coefficient of Variation 19.3 % (11.5-14.5); RDW Standard Deviation 58.2 fL (36.4-46.3)
[2022-01-06 04:25] LABS: INR 1.2 (0.9-1.1); Partial Thromboplastin Ratio 1.6; Partial Thromboplastin Time 43.7 Seconds (21.0-31.0); Prothrombin Time 12.3 Seconds (9.0-12.0)
[2022-01-06 04:26] LABS: ALC (manual) 2.15 K/uL (1.2-3.4); ANC (manual) 10.72 K/uL (1.4-6.5); Anisocytosis Present; Eosinophils # (manual) 0.51 K/uL (0-0.5); Eosinophils % (manual) 3.5 %; Hypochromasia Present; Lymphocytes # (manual) 2.15 K/uL (1.2-3.4); Lymphocytes % (manual) 14.8 %; Metamyelocytes # (manual) 0.25 K/uL (0-0); Metamyelocytes % (manual) 1.7 %; Monocytes # (manual) 0.88 K/uL (0.11-0.59); Monocytes % (manual) 6.1 %; Neutrophils # (manual) 10.72 K/uL (1.4-6.5); Neutrophils % (manual) 73.9 %; Polychromasia 1+
[2022-01-06] MEDS: ASCORBIC ACID 500 MG TAB PO SCH ×3 (05:07→16:52)
[2022-01-06] MEDS: GABAPENTIN 800 MG TAB PO SCH ×2 (05:07→16:52)
[2022-01-06] MEDS: INSULIN ASPART PER UNIT SC SCH ×4 (07:56→21:33)
[2022-01-06] MEDS: INSULIN HUMAN NPH SC SCH ×2 (07:57→16:50)
[2022-01-06] MEDS: RASPBERRY SYRUP 5 ML UDP PO SCH ×2 (08:26→20:50)
[2022-01-06] MEDS: POTASSIUM CHLORIDE 10 MEQ TABCR PO SCH ×2 (08:27→16:52)
[2022-01-06] MEDS: allopurinoL 100 MG TAB PO SCH ×2 (08:28→20:50)
[2022-01-06] MEDS: DOCUSATE SODIUM 100 MG CAP PO SCH ×2 (08:28→20:49)
[2022-01-06] MEDS: PANTOprazole 40 MG TAB PO SCH ×2 (08:28→20:50)
[2022-01-06] MEDS: MULTIVITAMIN TAB PO SCH (08:29)
[2022-01-06] MEDS: BACLOFEN 10 MG TAB PO SCH ×3 (08:29→20:49)
[2022-01-06] MEDS: COLLAGENASE OINT 30 GM TUBE TOP SCH (08:29)
[2022-01-06] MEDS: ESCITALOPRAM OXALATE 20 MG TAB PO SCH (08:29)
[2022-01-06] MEDS: FERROUS GLUCONATE 324 MG TAB PO SCH (08:29)
[2022-01-06] MEDS: LACTOBACILLUS ACIDOPHILUS 1 GM PACK PO SCH ×2 (08:29→20:50)
[2022-01-06] MEDS: VANCOMYCIN HCL 125 MG/2.5ML SOLN PO SCH ×2 (08:31→20:50)
[2022-01-06 11:54] LABS: Partial Thromboplastin Ratio 1.9
--- NOTE | 2022-01-06 12:15 | Surgery Progress Note ---
Date of Service January 06, 2022 Assessment & Plan (1) Sacral wound: Plan: pt is consult for sacral wound, Plan, no surgery indication now, continues dressing change with wound care nurse, sign off today, please call with questions, Thanks, 01/01/2022 12:50PM Dr. Munoz F/U sacral ulcer Plan, no surgery indication now, continues dressing change with wound care nurse, may need pelvic MRI to R/O osteomyelitis if WBC is still high in next 1-2 days, if positive for osteomyelitis , should consult orthopedic surgery, I called pt's , I answered her questions, she and pt understood, I sign off today, please call with questions, Thanks, 01/06/2022 12:28PM Dr. Munoz F/Greg sacral ulcer Plan, no surgery indication now, recommend to do chemical debridement, may use Collagenase Santyl ointment debridement, once a day by wound care nurse, continues dressing change with wound care nurse, may need pelvic MRI to R/O osteomyelitis if WBC is still high in next 1-2 days, if positive for osteomyelitis , should consult orthopedic surgery, will F/U, Admission and Anticipated Discharge Date Admission Date: December 31, 2021 Supervising Physician Co-Signing Physician Notes Patient seen and discussed with Irasema Cherry PA-C. Possible myoclonic jerk in th setting of sepsis. Would not recommend starting AED or seizure medication. If episodes become more frequent will consisder ambulatory EEG as outpatient. Subjective 01/02/2022 The patient was seen and examined in the telemetry unit He has been feeling much better and denies any significant symptoms He has had interview with the ID specialist in [place] and awaiting further guidance regarding antibiotic Denies any fever and or chills, increasing pain, nausea or vomiting 01/03/2022 The patient was seen and examined in the telemetry unit He remains stable without any significant symptoms Denies any fever and or chills 01/04/2022 The patient was seen and examined in telemetry unit He has been feeling much better and denies any significant symptoms Denies any fever and chills, no pain over sacral area 01/05/2022 The patient was seen and examined in telemetry unit He remains a stable and asymptomatic He has paraplegia and remains generally weak and lethargic He was noted to have more drainage from the sacral wound today 01/06/2022 12:13PM, Dr. Munoz re-evaluate sacral ulcer, pt is stable, no fever, Physical Exam Constitutional: WD/WN, vitals as above Eyes: PERRL, conjunctivae normal, anicteric sclerae Neck: trachea midline, no thyromegaly Respiratory: normal respiratory effort, lungs clear to auscultation Cardiovascular: RRR, no murmur, no edema Skin: stage IV sacral ulcer, size about 7x8cm, no necrotic tissue, no drainage drainage, only minimal yellow patch necrotic tissue, Neurologic: patellar DTR's 2+ bilat, sensation intact Psychiatric: A+Ox3, euthymic affect Results & Data ([facility]) Vital Signs (Past 12 Hours) Vital Signs Temp Pulse Pulse Resp BP Pulse Ox 01/06/22 07:51 74 01/06/22 07:12 36.8 C 77 19 107/65 99 Laboratory Results Abnormal lab results 01/05/22 01/05/22 01/05/22 Range/Units 14:07 16:37 20:03 WBC (4.8-10.8) K/uL RBC (4.7-6.1) M/uL Hgb (14.0-18.0) g/dL Hct (42-52) % MCHC (32-36) g/dL RDW Std Deviation (36.4-46.3) fL RDW Coeff of Yoseph (11.5-14.5) % Neutrophils # (Manual) (1.4-6.5) K/uL Total Absolute Neuts (1.4-6.5) K/uL Monocytes # (Manual) (0.11-0.59) K/uL Eosinophils # (Manual) (0-0.5) K/uL Metamyelocytes # (Man) (0-0) K/uL PT (9.0-12.0) Seconds INR (0.9-1.1) APTT 40.7 H (21.0-31.0) Seconds POC Glucose 123 H 184 H (70-99) mg/dl 01/05/22 01/06/22 01/06/22 Range/Units 20:35 03:33 03:33 WBC 14.50 H (4.8-10.8) K/uL RBC 3.40 L (4.7-6.1) M/uL Hgb 8.7 L (14.0-18.0) g/dL Hct 28.2 L (42-52) % MCHC 30.9 L (32-36) g/dL RDW Std Deviation 58.2 H (36.4-46.3) fL RDW Coeff of Yoseph 19.3 H (11.5-14.5) % Neutrophils # (Manual) 10.72 H (1.4-6.5) K/uL Total Absolute Neuts 10.72 H (1.4-6.5) K/uL Monocytes # (Manual) 0.88 H (0.11-0.59) K/uL Eosinophils # (Manual) 0.51 H (0-0.5) K/uL Metamyelocytes # (Man) 0.25 H (0-0) K/uL PT 12.3 H (9.0-12.0) Seconds INR 1.2 H (0.9-1.1) APTT 42.0 H 43.7 H (21.0-31.0) Seconds POC Glucose (70-99) mg/dl 01/06/22 01/06/22 01/06/22 Range/Units 07:23 11:08 11:18 WBC (4.8-10.8) K/uL RBC (4.7-6.1) M/uL Hgb (14.0-18.0) g/dL Hct (42-52) % MCHC (32-36) g/dL RDW Std Deviation (36.4-46.3) fL RDW Coeff of Yoseph (11.5-14.5) % Neutrophils # (Manual) (1.4-6.5) K/uL Total Absolute Neuts (1.4-6.5) K/uL Monocytes # (Manual) (0.11-0.59) K/uL Eosinophils # (Manual) (0-0.5) K/uL Metamyelocytes # (Man) (0-0) K/uL PT (9.0-12.0) Seconds INR (0.9-1.1) APTT 52.0 H* (21.0-31.0) Seconds POC Glucose 120 H 135 H (70-99) mg/dl
--- NOTE | 2022-01-06 12:48 | Pharmacy Report ---
Pharmacy Glycemic Short Note 2 - Date of Service January 06, 2022 - Glycemic Short BSG Results (Last 24 hours): 01/05/22 01/05/22 01/06/22 16:37 20:03 07:23 POC Glucose 123 H 184 H 120 H 01/06/22 11:18 POC Glucose 135 H OUTPATIENT ANTIDIABETIC REGIMEN: * Novolin 70/30 - 60 units SQ BIDM * Novolin R SSI * Metformin 1000 mg PO BIDM * HbA1c = 7.2% (09/23/21) ASSESSMENT: 01/06: * Mr. Rodriguez's BSGs have been stable without any changes in his stressors over the past 24 hours. * BSGs: [phone] * Received 193 units of insulin yesterday (130 units NPH + 63 units Novolog) * Fasting BSG is well controlled at 120 mg/dL this AM. No change to NPH. * Continue with current Novolog dosing. 01/04: * Mr Rodriguez was hyperglycemic throughout the day yesterday. NPH was increased and Novolog parameters were tightened. * Fasting BSG is reasonable this morning, so will continue current dose of NPH. * Novolog parameters were further tightened last evening. Will consider more adjustments if BSGs remain elevated. PLAN FOR INPATIENT GLYCEMIC CONTROL: * Hold outpatient oral diabetes medications * Basal insulin * NPH 65 units SQ BID with meals * Bolus insulin * NovoLog per scale ACHS or Q6hrs while NPO * Goal Range: Low 110 mg/dL - High 140 mg/dL * Correction Factor: 8 mg/dL/unit * Nutritional / Prandial insulin per carb ratio of 1 unit per 2 grams CHO consumed
--- NOTE | 2022-01-06 14:10 | Hospitalist Progress Note ---
Date of Service January 06, 2022 Assessment & Plan (1) Sepsis: Plan: Patient is 61 y/o M with history of MRSA/VRE/MDR Pseudomonas,sacral decubitus wounds, osteomyelitis, sepsis s/p surgical debridement in 09/2021, c/o lethargy for the past 3 days. Reports past 1 to 2 weeks has noted an opening to sacral area that concern underlying tunnel. CT abdomen pelvis: Redemonstration of a sacral decubitus ulcer which extends to the underlying bone. Interval resolution of the abscess shown on prior CT of September 06, 2021 and significant improvement in cellulitis. Interval bone loss involving the inferior sacrum and upper to mid coccyx since prior CT. This bone loss could be due to interval osteomyelitis or resection/debridement. Small portion of remaining coccyx may be exposed. Left inferior gluteal ulcer which extends to the underlying left ischial tuberosity, similar to prior CT. No evidence for acute osteomyelitis of the left ischial tuberosity. Received IV daptomycin, ceftazidime/avibactam in the ER Blood cultures negative Wound cx -May need WBC without any organism, culture showed gram-positive cocci Surgery on board -appreciate input and recommendation. No debridement Continue daptomycin IV abx ceftazidime/avibactam changed to Ceftolozane/Tazobactam base on previous sensitivity Surgery team called the and answered all questions White count has been improving Appreciate ID input and recommendation to continue Dapto and Avycaz for now with history of MDRO. P.o. Vanco 125 mg twice daily has been started as prophylaxis against C. difficile Preliminary wound culture is growing Enterococcus faecalis and is sensitive to ampicillin, daptomycin, penicillin, streptomycin and vancomycin Patient remained stable Final culture is showing Enterococcus faecalis and a good telemetry length- sensitivity noted and will discuss with ID tomorrow (2) Sacral wound: Plan: Pressure ulcer of sacral region, stage 4 POA Please see the picture for complete viewing of the wound A lot of drainage noted today as per the wound care nurse and seems to be a sinus track in the wound Will ask surgery to reevaluate the case-appreciate surgical reevaluation and no need for any debridement The drainage is stopped (3) Seizure disorder: Plan: Reported history of seizure disorder diagnosed at [facility] [place] Possible myoclonic jerk in th setting of sepsis CT head showed no acute intracranial abnormality Neuro on board - not recommend starting AED or seizure medication. If episodes become more frequent, will consider ambulatory EEG as outpatient. 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 Does not use CPAP Continue oxygen at bedtime History DVT s/p IVC filter on chronic anticoagulation INR: 1.9 today Currently on Heparin IV drip Will resume Coumadin Will D/C IV heparin drip once INR above 2 INR is 1.6 today-we will continue intravenous heparin INR is 1.3 and will continue Coumadin and heparin for now We will increase the dose of Coumadin has INR is 1.2 today Will give additional 4 mg Coumadin today Elevated TSH TSH: 12.7 Free T4 WNL Follow-up outpatient Chronic anemia Hgb: 9.3. Baseline 9-10 No signs symptoms of active bleeding Continue iron supplement HTN Hold Lasix, spironolactone Dyslipidemia Hold statin while on daptomycin Obesity BMI: 45 DVT Prophylaxis On IV heparin/Coumadin resumed We will give additional dose of Coumadin today Full code Admission and Anticipated Discharge Date Admission Date: December 31, 2021 Subjective 01/02/2022 The patient was seen and examined in the telemetry unit He has been feeling much better and denies any significant symptoms He has had interview with the ID specialist in [place] and awaiting further guidance regarding antibiotic Denies any fever and or chills, increasing pain, nausea or vomiting 01/03/2022 The patient was seen and examined in the telemetry unit He remains stable without any significant symptoms Denies any fever and or chills 01/04/2022 The patient was seen and examined in telemetry unit He has been feeling much better and denies any significant symptoms Denies any fever and chills, no pain over sacral area 01/05/2022 The patient was seen and examined in telemetry unit He remains a stable and asymptomatic He has paraplegia and remains generally weak and lethargic He was noted to have more drainage from the sacral wound today 01/06/2022 12:13PM, Dr. Munoz re-evaluate sacral ulcer, pt is stable, no fever, 01/06/2022 The patient was seen and examined in telemetry unit He remains generally weak but denies any other symptoms No fever and no chills and there is no more drainage from the sacral wound Review of Systems Review of Systems: All systems reviewed and are unremarkable except as noted below Musculoskeletal: Generally weak and lethargic Physical Exam Physical Exam: Lying in bed comfortably Constitutional: well developed, well nourished and + obese; not ill appearing Eyes: PERRL, conjunctivae normal, anicteric sclerae ENMT: external ear and nose normal, oropharynx normal Neck: trachea midline, no thyromegaly Respiratory: no respiratory distress Auscultation: lungs clear to auscultation bilaterally and + diminished lung sounds Cardiovascular: Rate/Rhythm: regular rate and regular rhythm; not tachycardic Heart Sounds: normal S1 and normal S2; no murmur Extremities: + edema (Trace edema bilaterally) Gastrointestinal (Abdomen): Inspection/Auscultation: + abdomen abnormal to inspection (Has colostomy bag in the left lower quadrant) and abdomen not distended Percussion/Palpation: abdomen soft; abdomen nontender Musculoskeletal: Has paraplegia. Sensation is impaired and has complete paralysis of the lower extremities Neurologic: awake Psychiatric: A+Ox3, euthymic affect Lymphatic: no cervical or axillary lymphadenopathy Results & Data Results & Data ([facility]) Vital Signs (Past 12 Hours) Vital Signs Temp Pulse Pulse Resp BP Pulse Ox 01/06/22 12:27 36.6 C 103 H 20 90/59 L 98 01/06/22 07:51 74 01/06/22 07:12 36.8 C 77 19 107/65 99 Laboratory Results Short CBC 01/06/22 Range/Units 03:33 WBC 14.50 H (4.8-10.8) K/uL Hgb 8.7 L (14.0-18.0) g/dL Hct 28.2 L (42-52) % Plt Count 265 (130-400) K/uL Diagnostic Findings Current Inpatient Medications Acetaminophen (Acetaminophen 325 Mg Tab) 650 mg PO Q4H PRN PRN Reason: Pain or Fever Stop: 01/30/22 18:39 Allopurinol (Allopurinol 100 Mg Tab) 100 mg PO BID JO Stop: 01/30/22 20:59 Last Admin: 01/06/22 08:28 Dose: 100 mg Documented by: Ascorbic Acid (Ascorbic Acid 500 Mg Tab) 250 mg PO TID@0600,1200,1800 [facility] Stop: 01/30/22 20:59 Last Admin: 01/06/22 13:13 Dose: 250 mg Documented by: Baclofen (Baclofen 10 Mg Tab) 5 mg PO TID JO Stop: 01/30/22 20:59 Last Admin: 01/06/22 13:14 Dose: 5 mg Documented by: Collagenase (Collagenase Oint 30 Gm Tube) 1 appln TOP DAILY JO Stop: 01/31/22 08:59 Last Admin: 01/06/22 08:29 Dose: 1 appln Documented by: Cyclobenzaprine HCl (Cyclobenzaprine Hcl 5 Mg Tab) 15 mg PO 0000 [facility] Stop: 01/31/22 00:00 Last Admin: 01/06/22 00:06 Dose: 15 mg Documented by: Dextrose (Dextrose 50% 50 Ml Syringe) 25 - 50 ml IV UD PRN; Protocol PRN Reason: Hypoglycemia Protocol Stop: 01/30/22 18:39 Docusate Sodium (Docusate Sodium 100 Mg Cap) 100 mg PO AMHS [facility] Stop: 01/30/22 20:59 Last Admin: 01/06/22 08:28 Dose: 100 mg Documented by: Escitalopram Oxalate (Escitalopram Oxalate 20 Mg Tab) 20 mg PO QAM JO Stop: 01/31/22 08:59 Last Admin: 01/06/22 08:29 Dose: 20 mg Documented by: Ferrous Gluconate (Ferrous Gluconate 324 Mg Tab) 324 mg PO QAM JO Stop: 01/31/22 08:59 Last Admin: 01/06/22 08:29 Dose: 324 mg Documented by: Gabapentin (Gabapentin 800 Mg Tab) 800 mg PO BID@0600,1800 [facility] Stop: 01/30/22 20:59 Last Admin: 01/06/22 05:07 Dose: 800 mg Documented by: Glucagon (Glucagon For Inj 1 Mg Vial) 1 mg SQ UD PRN; Protocol PRN Reason: Hypoglycemia Protocol Stop: 01/30/22 18:39 Glucose (Glucose 10 Tabs/Tube) 4 - 8 tabs PO UD PRN; Protocol PRN Reason: Hypoglycemia Protocol Stop: 01/30/22 18:39 Glucose (Glucose 40% Gel 15 Gm Tube) 15 - 30 gm PO UD PRN; Protocol PRN Reason: Hypoglycemia Protocol Stop: 01/30/22 18:39 Hyoscyamine (Hyoscyamine Sulfate 0.125 Mg Tab) 0.125 mg PO QPM [facility] Stop: 01/30/22 20:59 Last Admin: 01/05/22 21:06 Dose: 0.125 mg Documented by: Heparin Sodium/Dextrose (Heparin Sodium/Dextrose) 25,000 units in 500 mls @ 43 mls/hr IV .[id number] [facility]; Protocol Stop: 01/30/22 20:44 Last Titration: 01/06/22 12:25 Dose: 2,150 units/hr, 43 mls/hr Documented by: Ceftolozane/Tazobactam 1,500 (mg/ Dextrose) 111.4 mls @ 111.4 mls/hr IV Q8H [facility]; Protocol Stop: 01/09/22 00:00 Last Infusion: 01/06/22 10:01 Dose: Infused Documented by: Daptomycin 900 mg/ Syringe 18 mls @ 9 mls/min IV Q24H [facility]; Protocol Stop: 02/12/22 14:59 Last Admin: 01/05/22 17:27 Dose: 9 mls/min Documented by: Insulin Aspart (Insulin Aspart Per Unit) 0 units SC ACHS [facility]; Protocol Stop: 01/30/22 20:59 Last Admin: 01/06/22 12:27 Dose: Not Given Documented by: Insulin Human NPH (Insulin Human Nph) 65 units SC BIDM [facility]; Protocol Stop: 02/02/22 07:59 Last Admin: 01/06/22 07:57 Dose: 65 units Documented by: Lactobacillus Acidophilus (Lactobacillus Acidophilus 1 Gm Pack) 1 gm PO BID [facility] Stop: 01/30/22 20:59 Last Admin: 01/06/22 08:29 Dose: 1 gm Documented by: Magnesium Oxide (Magnesium Oxide 400 Mg Tab) 400 mg PO BID@0000,1200 [facility] Stop: 01/31/22 00:00 Last Admin: 01/06/22 13:14 Dose: 400 mg Documented by: Miscellaneous (Carbohydrates For Hypoglycemia ) 15 - 30 gm PO UD PRN PRN Reason: Hypoglycemia Protocol Stop: 01/30/22 18:39 Miscellaneous Information (Pharmacy Glycemic Mgmt Consult) 1 ea N/A UD PRN PRN Reason: Consult Stop: 01/30/22 18:39 Miscellaneous Information (Daptomycin Consult Active) 1 ea N/A UD PRN PRN Reason: Consult Stop: 01/30/22 20:36 Miscellaneous Information (*[facility]*Pharmacy Consult In Progress) 1 ea N/A UD PRN PRN Reason: Consult Stop: 01/31/22 12:16 Multivitamins (Multivitamin Tab) 1 tab PO QAM [facility] Stop: 01/31/22 08:59 Last Admin: 01/06/22 08:29 Dose: 1 tab Documented by: Ondansetron HCl (Ondansetron Inj 2 Mg/Ml 2 Ml Vial) 4 mg IV Q6H PRN PRN Reason: Nausea Stop: 01/30/22 18:39 Pantoprazole Sodium (Pantoprazole 40 Mg Tab) 40 mg PO BID [facility] Stop: 01/30/22 20:59 Last Admin: 01/06/22 08:28 Dose: 40 mg Documented by: Potassium Chloride (Potassium Chloride 10 Meq Tabcr) 10 meq PO BIDM [facility] Stop: 01/31/22 07:59 Last Admin: 01/06/22 08:27 Dose: 10 meq Documented by: Raspberry (Raspberry Syrup 5 Ml Udp) 5 ml PO BID [facility] Stop: 02/01/22 20:59 Last Admin: 01/06/22 08:26 Dose: 5 ml Documented by: Ropinirole HCl (Ropinirole Hcl 1 Mg Tablet) 1 mg PO QID@0000,0600,1200,1800 [facility] Stop: 01/31/22 00:00 Last Admin: 01/06/22 13:14 Dose: 1 mg Documented by: Tizanidine HCl (Tizanidine Hcl 4 Mg Tablet) 4 mg PO BID@0000,1200 [facility] Stop: 01/31/22 00:00 Last Admin: 01/06/22 13:14 Dose: 4 mg Documented by: Vancomycin HCl (Vancomycin Hcl 125 Mg/2.5ml Soln) 125 mg PO BID [facility] Stop: 02/01/22 20:59 Last Admin: 01/06/22 08:31 Dose: 125 mg Documented by: Warfarin Sodium (Warfarin Sod 6 Mg Tab) 6 mg PO SuTuWeThFrSa@1600 [facility] Stop: 02/01/22 15:59 Last Admin: 01/04/22 15:37 Dose: 6 mg Documented by: Warfarin Sodium (Warfarin Sod 7.5 Mg Tab) 7.5 mg PO Mo@1600 [facility] Stop: 02/04/22 15:59 Last Admin: 01/05/22 17:45 Dose: 7.5 mg Documented by: (1) Sepsis Sepsis type: sepsis due to unspecified organism
[2022-01-06] MEDS: DAPTOmycin 900 MG in SYRINGE 0 ML IV SCH (16:36)
[2022-01-06] MEDS: WARFARIN SOD 6 MG TAB PO SCH (16:52)
[2022-01-06 18:23] LABS: Partial Thromboplastin Ratio 1.5; Partial Thromboplastin Time 42.3 Seconds (21.0-31.0)
[2022-01-06] MEDS: HYOSCYAMINE SULFATE 0.125 MG TAB PO SCH (20:50)
[2022-01-07] MEDS: CEFTOLOZANE/TAZOBACTAM 1,500 MG in DEXTROSE 5% 100 ML IV SCH ×3 (00:50→16:55)
[2022-01-07] MEDS: tiZANidine HCL 4 MG TABLET PO SCH ×2 (00:52→12:36)
[2022-01-07] MEDS: CYCLOBENZAPRINE HCL 5 MG TAB PO SCH (00:52)
[2022-01-07] MEDS: rOPINIRole HCL 1 MG TABLET PO SCH ×4 (00:52→16:59)
[2022-01-07] MEDS: MAGNESIUM OXIDE 400 MG TAB PO SCH ×2 (00:53→12:36)
[2022-01-07 01:32] LABS: Partial Thromboplastin Ratio 2.1
[2022-01-07 01:34] LABS: Partial Thromboplastin Time 57.3 Seconds (21.0-31.0)
[2022-01-07] MEDS: HEPARIN SODIUM/DEXTROSE 25,000 UNITS/500 ML BAG IV SCH ×3 (02:25→21:20)
[2022-01-07] MEDS: GABAPENTIN 800 MG TAB PO SCH ×2 (05:51→17:00)
[2022-01-07] MEDS: ASCORBIC ACID 500 MG TAB PO SCH ×3 (05:51→16:59)
[2022-01-07 06:43] LABS: Partial Thromboplastin Ratio 2.4
[2022-01-07 06:47] LABS: Partial Thromboplastin Time 65.5 Seconds (21.0-31.0)
--- NOTE | 2022-01-07 08:47 | Surgery Progress Note ---
Date of Service January 07, 2022 Assessment & Plan (1) Sacral wound: Plan: pt is consult for sacral wound, Plan, no surgery indication now, continues dressing change with wound care nurse, sign off today, please call with questions, Thanks, 01/01/2022 12:50PM Dr. Alexander Nelson/Greg sacral ulcer Plan, no surgery indication now, continues dressing change with wound care nurse, may need pelvic MRI to R/O osteomyelitis if WBC is still high in next 1-2 days, if positive for osteomyelitis , should consult orthopedic surgery, I called pt's , I answered her questions, she and pt understood, I sign off today, please call with questions, Thanks, 01/06/2022 12:28PM Dr. Alexander Patterson sacral ulcer Plan, no surgery indication now, recommend to do chemical debridement, may use Collagenase Santyl ointment debridement, once a day by wound care nurse, continues dressing change with wound care nurse, may need pelvic MRI to R/O osteomyelitis if WBC is still high in next 1-2 days, if positive for osteomyelitis , should consult orthopedic surgery, deondre F/U, 01/07/2022 8:48AM, plan, see above recommendation , continue treatment, sign off today, please call with questions, jazzy Rodríguez did Debridement on sacral ulcer on 09/16/2021, may re-consult Dr. Chaudhry Admission and Anticipated Discharge Date Admission Date: December 31, 2021 Supervising Physician Co-Signing Physician Notes Patient seen and discussed with Irasema Cherry PA-C. Possible myoclonic jerk in th setting of sepsis. Would not recommend starting AED or seizure medication. If episodes become more frequent will consisder ambulatory EEG as outpatient. Subjective 01/02/2022 The patient was seen and examined in the telemetry unit He has been feeling much better and denies any significant symptoms He has had interview with the ID specialist in [place] and awaiting further guidance regarding antibiotic Denies any fever and or chills, increasing pain, nausea or vomiting 01/03/2022 The patient was seen and examined in the telemetry unit He remains stable without any significant symptoms Denies any fever and or chills 01/04/2022 The patient was seen and examined in telemetry unit He has been feeling much better and denies any significant symptoms Denies any fever and chills, no pain over sacral area 01/05/2022 The patient was seen and examined in telemetry unit He remains a stable and asymptomatic He has paraplegia and remains generally weak and lethargic He was noted to have more drainage from the sacral wound today 01/06/2022 12:13PM, Dr. Munoz re-evaluate sacral ulcer, pt is stable, no fever, 01/06/2022 The patient was seen and examined in telemetry unit He remains generally weak but denies any other symptoms No fever and no chills and there is no more drainage from the sacral wound 01/07/2022 8:46AM, DR. Munoz, pt is stable, no fever, Physical Exam Constitutional: WD/WN, vitals as above Eyes: PERRL, conjunctivae normal, anicteric sclerae Neck: trachea midline, no thyromegaly Respiratory: normal respiratory effort, lungs clear to auscultation Cardiovascular: RRR, no murmur, no edema Skin: stage IV sacral ulcer, size about 7x8cm, no necrotic tissue, no drainage drainage, only minimal yellow patch necrotic tissue, Neurologic: patellar DTR's 2+ bilat, sensation intact Psychiatric: A+Ox3, euthymic affect Results & Data ([facility]) Vital Signs (Past 12 Hours) Vital Signs Temp Pulse Pulse Resp BP Pulse Ox 01/07/22 07:15 37 C 82 16 106/62 99 01/07/22 04:00 37.1 C 86 18 118/63 99 01/07/22 00:00 117 H 01/06/22 23:29 37.8 C H 110 H 14 137/67 95
[2022-01-07] MEDS: VANCOMYCIN HCL 125 MG/2.5ML SOLN PO SCH ×2 (09:17→21:14)
[2022-01-07] MEDS: RASPBERRY SYRUP 5 ML UDP PO SCH ×2 (09:17→21:15)
[2022-01-07] MEDS: COLLAGENASE OINT 30 GM TUBE TOP SCH (09:18)
[2022-01-07] MEDS: BACLOFEN 10 MG TAB PO SCH ×3 (09:20→21:15)
[2022-01-07] MEDS: POTASSIUM CHLORIDE 10 MEQ TABCR PO SCH ×2 (09:21→17:00)
[2022-01-07] MEDS: ESCITALOPRAM OXALATE 20 MG TAB PO SCH (09:22)
[2022-01-07] MEDS: DOCUSATE SODIUM 100 MG CAP PO SCH ×2 (09:22→21:14)
[2022-01-07] MEDS: allopurinoL 100 MG TAB PO SCH ×2 (09:22→21:16)
[2022-01-07] MEDS: MULTIVITAMIN TAB PO SCH (09:23)
[2022-01-07] MEDS: FERROUS GLUCONATE 324 MG TAB PO SCH (09:24)
[2022-01-07] MEDS: PANTOprazole 40 MG TAB PO SCH ×2 (09:24→21:16)
[2022-01-07] MEDS: LACTOBACILLUS ACIDOPHILUS 1 GM PACK PO SCH ×2 (09:24→21:15)
[2022-01-07] MEDS: INSULIN ASPART PER UNIT SC SCH ×4 (09:39→21:10)
[2022-01-07] MEDS: INSULIN HUMAN NPH SC SCH ×2 (09:42→17:33)
--- NOTE | 2022-01-07 15:00 | Hospitalist Progress Note ---
Date of Service January 07, 2022 Assessment & Plan (1) Sepsis: Plan: Patient is 61 y/o M with history of MRSA/VRE/MDR Pseudomonas,sacral decubitus wounds, osteomyelitis, sepsis s/p surgical debridement in 09/2021, c/o lethargy for the past 3 days. Reports past 1 to 2 weeks has noted an opening to sacral area that concern underlying tunnel. CT abdomen pelvis: Redemonstration of a sacral decubitus ulcer which extends to the underlying bone. Interval resolution of the abscess shown on prior CT of September 06, 2021 and significant improvement in cellulitis. Interval bone loss involving the inferior sacrum and upper to mid coccyx since prior CT. This bone loss could be due to interval osteomyelitis or resection/debridement. Small portion of remaining coccyx may be exposed. Left inferior gluteal ulcer which extends to the underlying left ischial tuberosity, similar to prior CT. No evidence for acute osteomyelitis of the left ischial tuberosity. Received IV daptomycin, ceftazidime/avibactam in the ER Blood cultures negative Wound cx -May need WBC without any organism, culture showed gram-positive cocci Surgery on board -appreciate input and recommendation. No debridement Continue daptomycin IV abx ceftazidime/avibactam changed to Ceftolozane/Tazobactam base on previous sensitivity Surgery team called the and answered all questions White count has been improving Appreciate ID input and recommendation to continue Dapto and Avycaz for now with history of MDRO. P.o. Vanco 125 mg twice daily has been started as prophylaxis against C. difficile Preliminary wound culture is growing Enterococcus faecalis and is sensitive to ampicillin, daptomycin, penicillin, streptomycin and vancomycin Patient remained stable Final culture is showing Enterococcus faecalis and a good telemetry length- sensitivity noted and will discuss with ID tomorrow Discussed with the ID and further instruction is awaited (2) Sacral wound: Plan: Pressure ulcer of sacral region, stage 4 POA Please see the picture for complete viewing of the wound A lot of drainage noted today as per the wound care nurse and seems to be a sinus track in the wound Will ask surgery to reevaluate the case-appreciate surgical reevaluation and no need for any debridement The drainage is stopped No indication for surgery as per the surgeon (3) Seizure disorder: Plan: Reported history of seizure disorder diagnosed at [facility] [place] Possible myoclonic jerk in th setting of sepsis CT head showed no acute intracranial abnormality Neuro on board - not recommend starting AED or seizure medication. If episodes become more frequent, will consider ambulatory EEG as outpatient. 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 Baseline 9-10 No signs symptoms of active bleeding Continue iron supplement HTN Hold Lasix, spironolactone Dyslipidemia Hold statin while on daptomycin Obesity BMI: 45 DVT Prophylaxis On IV heparin/Coumadin resumed We will give additional dose of Coumadin today Full code Admission and Anticipated Discharge Date Admission Date: December 31, 2021 Subjective 01/02/2022 The patient was seen and examined in the telemetry unit He has been feeling much better and denies any significant symptoms He has had interview with the ID specialist in [place] and awaiting further guidance regarding antibiotic Denies any fever and or chills, increasing pain, nausea or vomiting 01/03/2022 The patient was seen and examined in the telemetry unit He remains stable without any significant symptoms Denies any fever and or chills 01/04/2022 The patient was seen and examined in telemetry unit He has been feeling much better and denies any significant symptoms Denies any fever and chills, no pain over sacral area 01/05/2022 The patient was seen and examined in telemetry unit He remains a stable and asymptomatic He has paraplegia and remains generally weak and lethargic He was noted to have more drainage from the sacral wound today 01/06/2022 12:13PM, Dr. Munoz re-evaluate sacral ulcer, pt is stable, no fever, 01/06/2022 The patient was seen and examined in telemetry unit He remains generally weak but denies any other symptoms No fever and no chills and there is no more drainage from the sacral wound 01/07/2022 8:46AM, DR. Munoz, pt is stable, no fever, 01/07/2022 The patient was seen and examined in telemetry unit He has been stable without any fever and no chills, no chest pain or shortness of breath, no abdominal pain nausea and or vomiting The drainage from the wound has stopped Review of Systems Review of Systems: All systems reviewed and are unremarkable except as noted below Musculoskeletal: Generally weak and lethargic Physical Exam Physical Exam: Lying in bed comfortably Constitutional: well developed, well nourished and + obese; not ill appearing Eyes: PERRL, conjunctivae normal, anicteric sclerae ENMT: external ear and nose normal, oropharynx normal Neck: trachea midline, no thyromegaly Respiratory: no respiratory distress Auscultation: lungs clear to auscultation bilaterally and + diminished lung sounds Cardiovascular: Rate/Rhythm: regular rate and regular rhythm; not tachycardic Heart Sounds: normal S1 and normal S2; no murmur Extremities: + edema (Trace edema bilaterally) Gastrointestinal (Abdomen): Inspection/Auscultation: + abdomen abnormal to inspection (Has colostomy bag in the left lower quadrant) and abdomen not distended Percussion/Palpation: abdomen soft; abdomen nontender Musculoskeletal: No acute arthritis in any joint Neurologic: awake Psychiatric: A+Ox3, euthymic affect Lymphatic: no cervical or axillary lymphadenopathy Results & Data Results & Data ([facility]) Vital Signs (Past 12 Hours) Vital Signs Temp Pulse Pulse Resp BP Pulse Ox 01/07/22 11:35 37.8 C H 97 H 20 169/76 H 96 01/07/22 11:00 80 01/07/22 07:15 37 C 82 16 106/62 99 01/07/22 04:00 37.1 C 86 18 118/63 99 Laboratory Results Cardiac Enzymes 01/06/22 Range/Units 14:11 Total Creatine Kinase 102 (30-223) U/L Medications Administered Current Inpatient Medications Acetaminophen (Acetaminophen 325 Mg Tab) 650 mg PO Q4H PRN PRN Reason: Pain or Fever Stop: 01/30/22 18:39 Allopurinol (Allopurinol 100 Mg Tab) 100 mg PO BID JO Stop: 01/30/22 20:59 Last Admin: 01/07/22 09:22 Dose: 100 mg Documented by: Ascorbic Acid (Ascorbic Acid 500 Mg Tab) 250 mg PO TID@0600,1200,1800 [facility] Stop: 01/30/22 20:59 Last Admin: 01/07/22 12:36 Dose: 250 mg Documented by: Baclofen (Baclofen 10 Mg Tab) 5 mg PO TID JO Stop: 01/30/22 20:59 Last Admin: 01/07/22 09:20 Dose: 5 mg Documented by: Collagenase (Collagenase Oint 30 Gm Tube) 1 appln TOP DAILY [facility] Stop: 01/31/22 08:59 Last Admin: 01/07/22 09:18 Dose: 1 appln Documented by: Cyclobenzaprine HCl (Cyclobenzaprine Hcl 5 Mg Tab) 15 mg PO 0000 [facility] Stop: 01/31/22 00:00 Last Admin: 01/07/22 00:52 Dose: 15 mg Documented by: Dextrose (Dextrose 50% 50 Ml Syringe) 25 - 50 ml IV UD PRN; Protocol PRN Reason: Hypoglycemia Protocol Stop: 01/30/22 18:39 Docusate Sodium (Docusate Sodium 100 Mg Cap) 100 mg PO [facility] Stop: 01/30/22 20:59 Last Admin: 01/07/22 09:22 Dose: 100 mg Documented by: Escitalopram Oxalate (Escitalopram Oxalate 20 Mg Tab) 20 mg PO QAM [facility] Stop: 01/31/22 08:59 Last Admin: 01/07/22 09:22 Dose: 20 mg Documented by: Ferrous Gluconate (Ferrous Gluconate 324 Mg Tab) 324 mg PO QAM [facility] Stop: 01/31/22 08:59 Last Admin: 01/07/22 09:24 Dose: 324 mg Documented by: Gabapentin (Gabapentin 800 Mg Tab) 800 mg PO BID@0600,1800 [facility] Stop: 01/30/22 20:59 Last Admin: 01/07/22 05:51 Dose: 800 mg Documented by: Glucagon (Glucagon For Inj 1 Mg Vial) 1 mg SQ UD PRN; Protocol PRN Reason: Hypoglycemia Protocol Stop: 01/30/22 18:39 Glucose (Glucose 10 Tabs/Tube) 4 - 8 tabs PO UD PRN; Protocol PRN Reason: Hypoglycemia Protocol Stop: 01/30/22 18:39 Glucose (Glucose 40% Gel 15 Gm Tube) 15 - 30 gm PO UD PRN; Protocol PRN Reason: Hypoglycemia Protocol Stop: 01/30/22 18:39 Hyoscyamine (Hyoscyamine Sulfate 0.125 Mg Tab) 0.125 mg PO QPM JO Stop: 01/30/22 20:59 Last Admin: 01/06/22 20:50 Dose: 0.125 mg Documented by: Heparin Sodium/Dextrose (Heparin Sodium/Dextrose) 25,000 units in 500 mls @ 45 mls/hr IV .Q11H7M [facility]; Protocol Stop: 01/30/22 20:44 Last Admin: 01/07/22 09:40 Dose: 2,250 units/hr, 45 mls/hr Documented by: Ceftolozane/Tazobactam 1,500 (mg/ Dextrose) 111.4 mls @ 111.4 mls/hr IV Q8H JO; Protocol Stop: 01/09/22 00:00 Last Infusion: 01/07/22 10:30 Dose: Infused Documented by: Daptomycin 900 mg/ Syringe 18 mls @ 9 mls/min IV Q24H JO; Protocol Stop: 02/12/22 14:59 Last Admin: 01/06/22 16:36 Dose: 9 mls/min Documented by: Insulin Aspart (Insulin Aspart Per Unit) 0 units SC ACHS [facility]; Protocol Stop: 01/30/22 20:59 Last Admin: 01/07/22 12:35 Dose: 29 units Documented by: Insulin Human NPH (Insulin Human Nph) 65 units SC BIDM [facility]; Protocol Stop: 02/02/22 07:59 Last Admin: 01/07/22 09:42 Dose: 65 units Documented by: Lactobacillus Acidophilus (Lactobacillus Acidophilus 1 Gm Pack) 1 gm PO BID [facility] Stop: 01/30/22 20:59 Last Admin: 01/07/22 09:24 Dose: 1 gm Documented by: Magnesium Oxide (Magnesium Oxide 400 Mg Tab) 400 mg PO BID@0000,1200 [facility] Stop: 01/31/22 00:00 Last Admin: 01/07/22 12:36 Dose: 400 mg Documented by: Miscellaneous (Carbohydrates For Hypoglycemia ) 15 - 30 gm PO UD PRN PRN Reason: Hypoglycemia Protocol Stop: 01/30/22 18:39 Miscellaneous Information (Pharmacy Glycemic Mgmt Consult) 1 ea N/A UD PRN PRN Reason: Consult Stop: 01/30/22 18:39 Miscellaneous Information (Daptomycin Consult Active) 1 ea N/A UD PRN PRN Reason: Consult Stop: 01/30/22 20:36 Miscellaneous Information (*[facility]*Pharmacy Consult In Progress) 1 ea N/A UD PRN PRN Reason: Consult Stop: 01/31/22 12:16 Multivitamins (Multivitamin Tab) 1 tab PO QAM [facility] Stop: 01/31/22 08:59 Last Admin: 01/07/22 09:23 Dose: 1 tab Documented by: Ondansetron HCl (Ondansetron Inj 2 Mg/Ml 2 Ml Vial) 4 mg IV Q6H PRN PRN Reason: Nausea Stop: 01/30/22 18:39 Pantoprazole Sodium (Pantoprazole 40 Mg Tab) 40 mg PO BID [facility] Stop: 01/30/22 20:59 Last Admin: 01/07/22 09:24 Dose: 40 mg Documented by: Potassium Chloride (Potassium Chloride 10 Meq Tabcr) 10 meq PO BIDM [facility] Stop: 01/31/22 07:59 Last Admin: 01/07/22 09:21 Dose: 10 meq Documented by: Raspberry (Raspberry Syrup 5 Ml Udp) 5 ml PO BID [facility] Stop: 02/01/22 20:59 Last Admin: 01/07/22 09:17 Dose: 5 ml Documented by: Ropinirole HCl (Ropinirole Hcl 1 Mg Tablet) 1 mg PO QID@0000,0600,1200,1800 [facility] Stop: 01/31/22 00:00 Last Admin: 01/07/22 12:37 Dose: 1 mg Documented by: Tizanidine HCl (Tizanidine Hcl 4 Mg Tablet) 4 mg PO BID@0000,1200 [facility] Stop: 01/31/22 00:00 Last Admin: 01/07/22 12:36 Dose: 4 mg Documented by: Vancomycin HCl (Vancomycin Hcl 125 Mg/2.5ml Soln) 125 mg PO BID [facility] Stop: 02/01/22 20:59 Last Admin: 01/07/22 09:17 Dose: 125 mg Documented by: Warfarin Sodium (Warfarin Sod 6 Mg Tab) 6 mg PO SuTuWeThFrSa@1600 [facility] Stop: 02/01/22 15:59 Last Admin: 01/06/22 16:52 Dose: 6 mg Documented by: Warfarin Sodium (Warfarin Sod 7.5 Mg Tab) 7.5 mg PO Mo@1600 [facility] Stop: 02/04/22 15:59 Last Admin: 01/05/22 17:45 Dose: 7.5 mg Documented by: (1) Sepsis Sepsis type: sepsis due to unspecified organism
[2022-01-07] MEDS ORDERED: WARFARIN SOD 5 MG TAB PO ONE (15:15)
[2022-01-07] MEDS: DAPTOmycin 900 MG in SYRINGE 0 ML IV SCH (15:34)
[2022-01-07 16:41] LABS: INR 1.3 (0.9-1.1); Prothrombin Time 13.5 Seconds (9.0-12.0)
[2022-01-07] MEDS: WARFARIN SOD 6 MG TAB PO SCH (16:59)
[2022-01-07] MEDS: HYOSCYAMINE SULFATE 0.125 MG TAB PO SCH (21:14)
[2022-01-08] MEDS: MAGNESIUM OXIDE 400 MG TAB PO SCH ×2 (00:06→12:10)
[2022-01-08] MEDS: rOPINIRole HCL 1 MG TABLET PO SCH ×4 (00:06→16:50)
[2022-01-08] MEDS: CYCLOBENZAPRINE HCL 5 MG TAB PO SCH (00:07)
[2022-01-08] MEDS: tiZANidine HCL 4 MG TABLET PO SCH ×2 (00:07→12:10)
[2022-01-08] MEDS: CEFTOLOZANE/TAZOBACTAM 1,500 MG in DEXTROSE 5% 100 ML IV SCH ×2 (00:33→08:48)
[2022-01-08] MEDS: ASCORBIC ACID 500 MG TAB PO SCH ×3 (06:19→16:50)
[2022-01-08] MEDS: GABAPENTIN 800 MG TAB PO SCH ×2 (06:20→16:49)
[2022-01-08 06:52] LABS: Creatinine Clr Calc Pharmacy 116.6 ml/min; Est GFR (African American) 87.7 ml/min; Est GFR (Non-African American) 75.7 ml/min
[2022-01-08 08:02] LABS: Partial Thromboplastin Ratio 2.3
[2022-01-08 08:08] LABS: Partial Thromboplastin Time 63.8 Seconds (21.0-31.0)
[2022-01-08] MEDS: INSULIN ASPART PER UNIT SC SCH ×4 (08:47→20:36)
[2022-01-08] MEDS: INSULIN HUMAN NPH SC SCH ×2 (08:48→17:31)
[2022-01-08] MEDS: HEPARIN SODIUM/DEXTROSE 25,000 UNITS/500 ML BAG IV SCH ×2 (08:51→18:09)
[2022-01-08] MEDS: VANCOMYCIN HCL 125 MG/2.5ML SOLN PO SCH ×2 (09:01→20:07)
[2022-01-08] MEDS: RASPBERRY SYRUP 5 ML UDP PO SCH ×2 (09:01→20:06)
[2022-01-08] MEDS: PANTOprazole 40 MG TAB PO SCH ×2 (09:02→20:03)
[2022-01-08] MEDS: DOCUSATE SODIUM 100 MG CAP PO SCH ×2 (09:02→20:05)
[2022-01-08] MEDS: allopurinoL 100 MG TAB PO SCH ×2 (09:02→20:04)
[2022-01-08] MEDS: COLLAGENASE OINT 30 GM TUBE TOP SCH (09:02)
[2022-01-08] MEDS: BACLOFEN 10 MG TAB PO SCH ×3 (09:02→20:03)
[2022-01-08] MEDS: POTASSIUM CHLORIDE 10 MEQ TABCR PO SCH ×2 (09:03→16:49)
[2022-01-08] MEDS: MULTIVITAMIN TAB PO SCH (09:04)
[2022-01-08] MEDS: ESCITALOPRAM OXALATE 20 MG TAB PO SCH (09:04)
[2022-01-08] MEDS: FERROUS GLUCONATE 324 MG TAB PO SCH (09:04)
[2022-01-08] MEDS: LACTOBACILLUS ACIDOPHILUS 1 GM PACK PO SCH ×2 (09:05→20:05)
--- NOTE | 2022-01-08 10:55 | Pharmacy Report ---
Pharmacy Glycemic Short Note 2 - Date of Service January 08, 2022 - Glycemic Short BSG Results (Last 24 hours): 01/07/22 01/07/22 01/07/22 11:37 16:19 20:04 POC Glucose 165 H 113 H 172 H 01/08/22 07:18 POC Glucose 168 H OUTPATIENT ANTIDIABETIC REGIMEN: * Novolin 70/30 - 60 units SQ BIDM * Novolin R SSI * Metformin 1000 mg PO BIDM * HbA1c = 7.2% (09/23/21) ASSESSMENT: 01/08: * BSGs again well controlled, all less than 180 over last 24 hrs * Fasting BSG 168, somewhat elevated however given the fact BSGs routinely falling b/w 113-180 over last 2 days - no changes will be made 01/06: * Mr. Rodriguez's BSGs have been stable without any changes in his stressors over the past 24 hours. * BSGs: [phone] * Received 193 units of insulin yesterday (130 units NPH + 63 units Novolog) * Fasting BSG is well controlled at 120 mg/dL this AM. No change to NPH. * Continue with current Novolog dosing. 01/04: * Mr Rodriguez was hyperglycemic throughout the day yesterday. NPH was increased and Novolog parameters were tightened. * Fasting BSG is reasonable this morning, so will continue current dose of NPH. * Novolog parameters were further tightened last evening. Will consider more adjustments if BSGs remain elevated. PLAN FOR INPATIENT GLYCEMIC CONTROL: * Hold outpatient oral diabetes medications * Basal insulin * NPH 65 units SQ BID with meals * Bolus insulin * NovoLog per scale ACHS or Q6hrs while NPO * Goal Range: Low 110 mg/dL - High 140 mg/dL * Correction Factor: 8 mg/dL/unit * Nutritional / Prandial insulin per carb ratio of 1 unit per 2 grams CHO consumed
[2022-01-08] MEDS: AMPICILLIN/SULBACTAM SOD 3,000 MG in 0.9 % SODIUM CHLORIDE 100 ML IV SCH ×3 (12:09→22:02)
[2022-01-08 13:15] LABS: INR 1.4 (0.9-1.1); Prothrombin Time 14.3 Seconds (9.0-12.0)
--- NOTE | 2022-01-08 13:53 | Hospitalist Progress Note ---
Date of Service January 08, 2022 Assessment & Plan (1) Sepsis: Plan: Patient is 61 y/o M with history of MRSA/VRE/MDR Pseudomonas,sacral decubitus wounds, osteomyelitis, sepsis s/p surgical debridement in 09/2021, c/o lethargy for the past 3 days. Reports past 1 to 2 weeks has noted an opening to sacral area that concern underlying tunnel. CT abdomen pelvis: Redemonstration of a sacral decubitus ulcer which extends to the underlying bone. Interval resolution of the abscess shown on prior CT of September 06, 2021 and significant improvement in cellulitis. Interval bone loss involving the inferior sacrum and upper to mid coccyx since prior CT. This bone loss could be due to interval osteomyelitis or resection/debridement. Small portion of remaining coccyx may be exposed. Left inferior gluteal ulcer which extends to the underlying left ischial tuberosity, similar to prior CT. No evidence for acute osteomyelitis of the left ischial tuberosity. Received IV daptomycin, ceftazidime/avibactam in the ER Blood cultures negative Wound cx -May need WBC without any organism, culture showed gram-positive cocci Surgery on board -appreciate input and recommendation. No debridement Continue daptomycin IV abx ceftazidime/avibactam changed to Ceftolozane/Tazobactam base on previous sensitivity Surgery team called the and answered all questions White count has been improving Appreciate ID input and recommendation to continue Dapto and Avycaz for now with history of MDRO. P.o. Vanco 125 mg twice daily has been started as prophylaxis against C. difficile Preliminary wound culture is growing Enterococcus faecalis and is sensitive to ampicillin, daptomycin, penicillin, streptomycin and vancomycin Patient remained stable Discussed with the ID specialist in [place] for further recommendation regarding antibiotic Discussed in detail with the patient and the regarding side effect with penicillin in the past-used amoxicillin/ampicillin in the past for sinus infection without any issues Avycaz and daptomycin were discontinued and Unasyn started today We will try to give oral antibiotic on discharge if okay with ID (2) Sacral wound: Plan: Pressure ulcer of sacral region, stage 4 POA Please see the picture for complete viewing of the wound A lot of drainage noted today as per the wound care nurse and seems to be a sinus track in the wound Will ask surgery to reevaluate the case-appreciate surgical reevaluation and no need for any debridement The drainage is stopped No indication for surgery as per the surgeon We will continue with dressing as per wound care recommendation (3) Seizure disorder: Plan: Reported history of seizure disorder diagnosed at [facility] [place] Possible myoclonic jerk in th setting of sepsis CT head showed no acute intracranial abnormality Neuro on board - not recommend starting AED or seizure medication. If episodes become more frequent, will consider ambulatory EEG as outpatient. 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 Does not use CPAP Continue oxygen at bedtime History DVT s/p IVC filter on chronic anticoagulation INR: 1.9 today Currently on Heparin IV drip Will resume Coumadin Will D/C IV heparin drip once INR above 2 INR is 1.6 today-we will continue intravenous heparin INR is 1.3 and will continue Coumadin and heparin for now We will increase the dose of Coumadin has INR is 1.2 today Will give additional 4 mg Coumadin today We will check INR tomorrow-1.4 Elevated TSH TSH: 12.7 Free T4 WNL Follow-up outpatient Chronic anemia Hgb: 9.3. Baseline 9-10 No signs symptoms of active bleeding Continue iron supplement HTN Hold Lasix, spironolactone Dyslipidemia Hold statin while on daptomycin Obesity BMI: 45 DVT Prophylaxis On IV heparin/Coumadin resumed We will give additional dose of Coumadin today Full code Admission and Anticipated Discharge Date Admission Date: December 31, 2021 Subjective 01/02/2022 The patient was seen and examined in the telemetry unit He has been feeling much better and denies any significant symptoms He has had interview with the ID specialist in [place] and awaiting further guidance regarding antibiotic Denies any fever and or chills, increasing pain, nausea or vomiting 01/03/2022 The patient was seen and examined in the telemetry unit He remains stable without any significant symptoms Denies any fever and or chills 01/04/2022 The patient was seen and examined in telemetry unit He has been feeling much better and denies any significant symptoms Denies any fever and chills, no pain over sacral area 01/05/2022 The patient was seen and examined in telemetry unit He remains a stable and asymptomatic He has paraplegia and remains generally weak and lethargic He was noted to have more drainage from the sacral wound today 01/06/2022 12:13PM, Dr. Munoz re-evaluate sacral ulcer, pt is stable, no fever, 01/06/2022 The patient was seen and examined in telemetry unit He remains generally weak but denies any other symptoms No fever and no chills and there is no more drainage from the sacral wound 01/07/2022 8:46AM, DR. Munoz, pt is stable, no fever, 01/07/2022 The patient was seen and examined in telemetry unit He has been stable without any fever and no chills, no chest pain or shortness of breath, no abdominal pain nausea and or vomiting The drainage from the wound has stopped 01/08/2022 The patient was seen and examined in telemetry unit He has been stable and denies any significant symptoms He mentioned that he has had ampicillin/amoxicillin before for sinus infection No evidence of significant allergic reactions with penicillin in the past We will try Unasyn Review of Systems Review of Systems: All systems reviewed and are unremarkable except as noted below Musculoskeletal: Generally weak and lethargic Physical Exam Physical Exam: Lying in bed comfortably Constitutional: well developed, well nourished and + obese; not ill appearing Eyes: PERRL, conjunctivae normal, anicteric sclerae ENMT: external ear and nose normal, oropharynx normal Neck: trachea midline, no thyromegaly Respiratory: no respiratory distress Auscultation: lungs clear to auscultation bilaterally and + diminished lung sounds Cardiovascular: Rate/Rhythm: regular rate and regular rhythm; not tachycardic Heart Sounds: normal S1 and normal S2; no murmur Extremities: + edema (Trace edema bilaterally) Gastrointestinal (Abdomen): Inspection/Auscultation: + abdomen abnormal to inspection (Has colostomy bag in the left lower quadrant) and abdomen not diste nded Percussion/Palpation: abdomen soft; abdomen nontender Musculoskeletal: No acute arthritis in any joint Neurologic: awake Psychiatric: A+Ox3, euthymic affect Lymphatic: no cervical or axillary lymphadenopathy Results & Data Results & Data ([facility]) Vital Signs (Past 12 Hours) Vital Signs Temp Pulse Pulse Resp BP BP Pulse Ox 01/08/22 11:15 37 C 84 18 138/70 94 01/08/22 08:00 80 01/08/22 07:21 37.3 C 81 18 101/62 98 01/08/22 04:08 36.7 C 83 18 116/66 97 Laboratory Results BMP 01/08/22 05:44 Creatinine 1.05 Medications Administered Current Inpatient Medications Acetaminophen (Acetaminophen 325 Mg Tab) 650 mg PO Q4H PRN PRN Reason: Pain or Fever Stop: 01/30/22 18:39 Allopurinol (Allopurinol 100 Mg Tab) 100 mg PO BID JO Stop: 01/30/22 20:59 Last Admin: 01/08/22 09:02 Dose: 100 mg Documented by: Ascorbic Acid (Ascorbic Acid 500 Mg Tab) 250 mg PO TID@0600,1200,1800 JO Stop: 01/30/22 20:59 Last Admin: 01/08/22 12:11 Dose: 250 mg Documented by: Baclofen (Baclofen 10 Mg Tab) 5 mg PO TID JO Stop: 01/30/22 20:59 Last Admin: 01/08/22 09:02 Dose: 5 mg Documented by: Collagenase (Collagenase Oint 30 Gm Tube) 1 appln TOP DAILY JO Stop: 01/31/22 08:59 Last Admin: 01/08/22 09:02 Dose: 1 appln Documented by: Cyclobenzaprine HCl (Cyclobenzaprine Hcl 5 Mg Tab) 15 mg PO 0000 JO Stop: 01/31/22 00:00 Last Admin: 01/08/22 00:07 Dose: 15 mg Documented by: Dextrose (Dextrose 50% 50 Ml Syringe) 25 - 50 ml IV UD PRN; Protocol PRN Reason: Hypoglycemia Protocol Stop: 01/30/22 18:39 Docusate Sodium (Docusate Sodium 100 Mg Cap) 100 mg PO AMHS JO Stop: 01/30/22 20:59 Last Admin: 01/08/22 09:02 Dose: 100 mg Documented by: Escitalopram Oxalate (Escitalopram Oxalate 20 Mg Tab) 20 mg PO QAM JO Stop: 01/31/22 08:59 Last Admin: 01/08/22 09:04 Dose: 20 mg Documented by: Ferrous Gluconate (Ferrous Gluconate 324 Mg Tab) 324 mg PO QAM [facility] Stop: 01/31/22 08:59 Last Admin: 01/08/22 09:04 Dose: 324 mg Documented by: Gabapentin (Gabapentin 800 Mg Tab) 800 mg PO BID@0600,1800 [facility] Stop: 01/30/22 20:59 Last Admin: 01/08/22 06:20 Dose: 800 mg Documented by: Glucagon (Glucagon For Inj 1 Mg Vial) 1 mg SQ UD PRN; Protocol PRN Reason: Hypoglycemia Protocol Stop: 01/30/22 18:39 Glucose (Glucose 10 Tabs/Tube) 4 - 8 tabs PO UD PRN; Protocol PRN Reason: Hypoglycemia Protocol Stop: 01/30/22 18:39 Glucose (Glucose 40% Gel 15 Gm Tube) 15 - 30 gm PO UD PRN; Protocol PRN Reason: Hypoglycemia Protocol Stop: 01/30/22 18:39 Hyoscyamine (Hyoscyamine Sulfate 0.125 Mg Tab) 0.125 mg PO QPM [facility] Stop: 01/30/22 20:59 Last Admin: 01/07/22 21:14 Dose: 0.125 mg Documented by: Heparin Sodium/Dextrose (Heparin Sodium/Dextrose) 25,000 units in 500 mls @ 45 mls/hr IV .Q11H7M [facility]; Protocol Stop: 01/30/22 20:44 Last Admin: 01/08/22 08:51 Dose: 2,250 units/hr, 45 mls/hr Documented by: Ampicillin Sodium/Sulbactam Sodium 3,000 mg/ Sodium Chloride 108 mls @ 200 mls/hr IV Q6H [facility]; Protocol Stop: 01/15/22 10:59 Last Admin: 01/08/22 12:09 Dose: 200 mls/hr Documented by: Insulin Aspart (Insulin Aspart Per Unit) 0 units SC ACHS [facility]; Protocol Stop: 01/30/22 20:59 Last Admin: 01/08/22 12:08 Dose: 35 units Documented by: Insulin Human NPH (Insulin Human Nph) 65 units SC BIDM [facility]; Protocol Stop: 02/02/22 07:59 Last Admin: 01/08/22 08:48 Dose: 65 units Documented by: Lactobacillus Acidophilus (Lactobacillus Acidophilus 1 Gm Pack) 1 gm PO BID [facility] Stop: 01/30/22 20:59 Last Admin: 01/08/22 09:05 Dose: 1 gm Documented by: Magnesium Oxide (Magnesium Oxide 400 Mg Tab) 400 mg PO BID@0000,1200 [facility] Stop: 01/31/22 00:00 Last Admin: 01/08/22 12:10 Dose: 400 mg Documented by: Miscellaneous (Carbohydrates For Hypoglycemia ) 15 - 30 gm PO UD PRN PRN Reason: Hypoglycemia Protocol Stop: 01/30/22 18:39 Miscellaneous Information (Pharmacy Glycemic Mgmt Consult) 1 ea N/A UD PRN PRN Reason: Consult Stop: 01/30/22 18:39 Multivitamins (Multivitamin Tab) 1 tab PO QAM JO Stop: 01/31/22 08:59 Last Admin: 01/08/22 09:04 Dose: 1 tab Documented by: Ondansetron HCl (Ondansetron Inj 2 Mg/Ml 2 Ml Vial) 4 mg IV Q6H PRN PRN Reason: Nausea Stop: 01/30/22 18:39 Pantoprazole Sodium (Pantoprazole 40 Mg Tab) 40 mg PO BID [facility] Stop: 01/30/22 20:59 Last Admin: 01/08/22 09:02 Dose: 40 mg Documented by: Potassium Chloride (Potassium Chloride 10 Meq Tabcr) 10 meq PO BIDM [facility] Stop: 01/31/22 07:59 Last Admin: 01/08/22 09:03 Dose: 10 meq Documented by: Raspberry (Raspberry Syrup 5 Ml Udp) 5 ml PO BID [facility] Stop: 02/01/22 20:59 Last Admin: 01/08/22 09:01 Dose: 5 ml Documented by: Ropinirole HCl (Ropinirole Hcl 1 Mg Tablet) 1 mg PO QID@0000,0600,1200,1800 [facility] Stop: 01/31/22 00:00 Last Admin: 01/08/22 12:10 Dose: 1 mg Documented by: Tizanidine HCl (Tizanidine Hcl 4 Mg Tablet) 4 mg PO BID@0000,1200 [facility] Stop: 01/31/22 00:00 Last Admin: 01/08/22 12:10 Dose: 4 mg Documented by: Vancomycin HCl (Vancomycin Hcl 125 Mg/2.5ml Soln) 125 mg PO BID [facility] Stop: 02/01/22 20:59 Last Admin: 01/08/22 09:01 Dose: 125 mg Documented by: Warfarin Sodium (Warfarin Sod 6 Mg Tab) 6 mg PO SuTuWeThFrSa@1600 [facility] Stop: 02/01/22 15:59 Last Admin: 01/07/22 16:59 Dose: 6 mg Documented by: Warfarin Sodium (Warfarin Sod 7.5 Mg Tab) 7.5 mg PO Mo@1600 [facility] Stop: 02/04/22 15:59 Last Admin: 01/05/22 17:45 Dose: 7.5 mg Documented by: (1) Sepsis Sepsis type: sepsis due to unspecified organism
[2022-01-08] MEDS: WARFARIN SOD 6 MG TAB PO SCH (16:48)
[2022-01-08] MEDS: HYOSCYAMINE SULFATE 0.125 MG TAB PO SCH (20:05)
[2022-01-09] MEDS: rOPINIRole HCL 1 MG TABLET PO SCH ×4 (00:02→17:08)
[2022-01-09] MEDS: CYCLOBENZAPRINE HCL 5 MG TAB PO SCH (00:02)
[2022-01-09] MEDS: MAGNESIUM OXIDE 400 MG TAB PO SCH ×2 (00:02→11:50)
[2022-01-09] MEDS: tiZANidine HCL 4 MG TABLET PO SCH ×2 (00:02→11:50)
[2022-01-09] MEDS: AMPICILLIN/SULBACTAM SOD 3,000 MG in 0.9 % SODIUM CHLORIDE 100 ML IV SCH ×4 (04:49→22:34)
[2022-01-09] MEDS: HEPARIN SODIUM/DEXTROSE 25,000 UNITS/500 ML BAG IV SCH ×6 (04:50→19:33)
[2022-01-09 06:11] LABS: Hematocrit (blood only) 27.7 % (42-52); Hemoglobin 8.6 g/dL (14.0-18.0); Mean Corpuscular Hemoglobin 25.9 pg (25-34); Mean Corpuscular Volume 83.4 fL (80-100); Mean Platelet Volume 8.8 fL (7.4-10.4); Platelet Count 263 K/uL (130-400); RDW Coefficient of Variation 19.6 % (11.5-14.5); RDW Standard Deviation 59.1 fL (36.4-46.3); Red Blood Count 3.32 M/uL (4.7-6.1); White Blood Count 13.55 K/uL (4.8-10.8)
[2022-01-09 06:25] LABS: INR 1.5 (0.9-1.1); Prothrombin Time 15.6 Seconds (9.0-12.0)
[2022-01-09] MEDS: GABAPENTIN 800 MG TAB PO SCH ×2 (06:28→17:08)
[2022-01-09] MEDS: ASCORBIC ACID 500 MG TAB PO SCH ×3 (06:28→17:07)
[2022-01-09 06:34] LABS: Anisocytosis Present; Basophils # (auto) 0.03 K/uL (0-0.2); Basophils % (auto) 0.2 %; Eosinophils # (auto) 0.54 K/uL (0-0.5); Hypochromasia Present; Immature Granulocytes # (auto) 0.09 K/uL (0.00-0.02); Immature Granulocytes % (auto) 0.7 %; Lymphocytes # (auto) 2.17 K/uL (1.2-3.4); Monocytes # (auto) 0.71 K/uL (0.11-0.59); Monocytes % (auto) 5.2 %; Neutrophils # (auto) 10.01 K/uL (1.4-6.5); Neutrophils % (auto) 73.9 %; Polychromasia 1+
[2022-01-09 06:37] LABS: Calcium 8.7 mg/dl (8.5-10.1); Creatinine Clr Calc Pharmacy 116.8 ml/min; Est GFR (African American) 87.7 ml/min; Est GFR (Non-African American) 75.7 ml/min; Potassium 4.4 mmol/L (3.5-5.1)
[2022-01-09 07:05] LABS: Partial Thromboplastin Ratio 2.5
[2022-01-09 07:24] LABS: Partial Thromboplastin Time 69.2 Seconds (21.0-31.0)
[2022-01-09] MEDS: POTASSIUM CHLORIDE 10 MEQ TABCR PO SCH ×2 (08:38→17:06)
[2022-01-09] MEDS: BACLOFEN 10 MG TAB PO SCH ×3 (08:39→22:01)
[2022-01-09] MEDS: allopurinoL 100 MG TAB PO SCH ×2 (08:40→22:36)
[2022-01-09] MEDS: COLLAGENASE OINT 30 GM TUBE TOP SCH (08:40)
[2022-01-09] MEDS: MULTIVITAMIN TAB PO SCH (08:41)
[2022-01-09] MEDS: FERROUS GLUCONATE 324 MG TAB PO SCH (08:41)
[2022-01-09] MEDS: DOCUSATE SODIUM 100 MG CAP PO SCH ×2 (08:41→22:35)
[2022-01-09] MEDS: LACTOBACILLUS ACIDOPHILUS 1 GM PACK PO SCH ×2 (08:41→22:37)
[2022-01-09] MEDS: PANTOprazole 40 MG TAB PO SCH ×2 (08:42→22:01)
[2022-01-09] MEDS: ESCITALOPRAM OXALATE 20 MG TAB PO SCH (08:42)
[2022-01-09] MEDS: RASPBERRY SYRUP 5 ML UDP PO SCH ×2 (08:45→22:01)
[2022-01-09] MEDS: VANCOMYCIN HCL 125 MG/2.5ML SOLN PO SCH ×2 (08:45→22:01)
[2022-01-09] MEDS: INSULIN HUMAN NPH SC SCH ×2 (08:56→17:09)
[2022-01-09] MEDS: INSULIN ASPART PER UNIT SC SCH ×4 (08:56→22:36)
--- NOTE | 2022-01-09 12:51 | Hospitalist Progress Note ---
Date of Service January 09, 2022 Assessment & Plan (1) Sepsis: Plan: List andPatient is 61 y/o M with history of MRSA/VRE/MDR Pseudomonas,sacral decubitus wounds, osteomyelitis, sepsis s/p surgical debridement in 09/2021, c/o lethargy for the past 3 days. Reports past 1 to 2 weeks has noted an opening to sacral area that concern underlying tunnel. CT abdomen pelvis: Redemonstration of a sacral decubitus ulcer which extends to the underlying bone. Interval resolution of the abscess shown on prior CT of September 06, 2021 and significant improvement in cellulitis. Interval bone loss involving the inferior sacrum and upper to mid coccyx since prior CT. This bone loss could be due to interval osteomyelitis or resection/debridement. Small portion of remaining coccyx may be exposed. Left inferior gluteal ulcer which extends to the underlying left ischial tuberosity, similar to prior CT. No evidence for acute osteomyelitis of the left ischial tuberosity. Received IV daptomycin, ceftazidime/avibactam in the ER Blood cultures negative Wound cx -May need WBC without any organism, culture showed gram-positive cocci Surgery on board -appreciate input and recommendation. No debridement Continue daptomycin IV abx ceftazidime/avibactam changed to Ceftolozane/Tazobactam base on previous sensitivity Surgery team called the and answered all questions White count has been improving Appreciate ID input and recommendation to continue Dapto and Avycaz for now with history of MDRO. P.o. Vanco 125 mg twice daily has been started as prophylaxis against C. difficile Preliminary wound culture is growing Enterococcus faecalis and is sensitive to ampicillin, daptomycin, penicillin, streptomycin and vancomycin Patient remained stable Discussed with the ID specialist in [place] for further recommendation regarding antibiotic Discussed in detail with the patient and the regarding side effect with penicillin in the past-used amoxicillin/ampicillin in the past for sinus infection without any issues Avycaz and daptomycin were discontinued and Unasyn started today Discussed with the ID specialist in [place] and recommended to have intravenous Unasyn for 6 weeks PICC line will be inserted today and the patient may be discharged this afternoon (2) Sacral wound: Plan: Pressure ulcer of sacral region, stage 4 POA Please see the picture for complete viewing of the wound A lot of drainage noted today as per the wound care nurse and seems to be a sinus track in the wound Will ask surgery to reevaluate the case-appreciate surgical reevaluation and no need for any debridement The drainage is stopped No indication for surgery as per the surgeon We will continue with dressing as per wound care recommendation Will need wound care as per instruction from the wound care nurse (3) Seizure disorder: Plan: Reported history of seizure disorder diagnosed at [facility] [place] Possible myoclonic jerk in th setting of sepsis CT head showed no acute intracranial abnormality Neuro on board - not recommend starting AED or seizure medication. If episodes become more frequent, will consider ambulatory EEG as outpatient. 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 Does not use CPAP Continue oxygen at bedtime History DVT s/p IVC filter on chronic anticoagulation INR: 1.9 today Currently on Heparin IV drip Will resume Coumadin Will D/C IV heparin drip once INR above 2 INR is 1.6 today-we will continue intravenous heparin INR is 1.3 and will continue Coumadin and heparin for now We will increase the dose of Coumadin has INR is 1.2 today Will give additional 4 mg Coumadin today We will check INR tomorrow-1.4 INR is 1.5 today-we will give additional dose of Coumadin today Check INR on Wednesday as an outpatient and dose Coumadin accordingly Elevated TSH TSH: 12.7 Free T4 WNL Follow-up outpatient Chronic anemia Hgb: 9.3. Baseline 9-10 No signs symptoms of active bleeding Continue iron supplement HTN Hold Lasix, spironolactone Dyslipidemia Hold statin while on daptomycin Obesity BMI: 45 DVT Prophylaxis On IV heparin/Coumadin resumed We will give additional dose of Coumadin today Full code Admission and Anticipated Discharge Date Admission Date: December 31, 2021 Subjective 01/02/2022 The patient was seen and examined in the telemetry unit He has been feeling much better and denies any significant symptoms He has had interview with the ID specialist in [place] and awaiting further guidance regarding antibiotic Denies any fever and or chills, increasing pain, nausea or vomiting 01/03/2022 The patient was seen and examined in the telemetry unit He remains stable without any significant symptoms Denies any fever and or chills 01/04/2022 The patient was seen and examined in telemetry unit He has been feeling much better and denies any significant symptoms Denies any fever and chills, no pain over sacral area 01/05/2022 The patient was seen and examined in telemetry unit He remains a stable and asymptomatic He has paraplegia and remains generally weak and lethargic He was noted to have more drainage from the sacral wound today 01/06/2022 12:13PM, Dr. Munoz re-evaluate sacral ulcer, pt is stable, no fever, 01/06/2022 The patient was seen and examined in telemetry unit He remains generally weak but denies any other symptoms No fever and no chills and there is no more drainage from the sacral wound 01/07/2022 8:46AM, DR. Munoz, pt is stable, no fever, 01/07/2022 The patient was seen and examined in telemetry unit He has been stable without any fever and no chills, no chest pain or shortness of breath, no abdominal pain nausea and or vomiting The drainage from the wound has stopped 01/08/2022 The patient was seen and examined in telemetry unit He has been stable and denies any significant symptoms He mentioned that he has had ampicillin/amoxicillin before for sinus infection No evidence of significant allergic reactions with penicillin in the past We will try Unasyn 01/09/2022 The patient was seen and examined in telemetry unit He has been tolerating Unasyn Remains stable without any significant symptoms Wound care will be continued and the patient may be discharged this afternoon Review of Systems Review of Systems: All systems reviewed and are unremarkable except as noted below Musculoskeletal: Generally weak and lethargic Physical Exam Physical Exam: Lying in bed comfortably Constitutional: well developed, well nourished and + obese; not ill appearing Eyes: PERRL, conjunctivae normal, anicteric sclerae ENMT: external ear and nose normal, oropharynx normal Neck: trachea midline, no thyromegaly Respiratory: no respiratory distress Auscultation: lungs clear to auscu ltation bilaterally and + diminished lung sounds Cardiovascular: Rate/Rhythm: regular rate and regular rhythm; not tachycardic Heart Sounds: normal S1 and normal S2; no murmur Extremities: + edema (Trace edema bilaterally) Gastrointestinal (Abdomen): Inspection/Auscultation: + abdomen abnormal to inspection (Has colostomy bag in the left lower quadrant) and abdomen not distended Percussion/Palpation: abdomen soft; abdomen nontender Musculoskeletal: Has paraplegia but does not have any acute arthritis involving any joint Neurologic: awake Psychiatric: A+Ox3, euthymic affect Lymphatic: no cervical or axillary lymphadenopathy Results & Data Results & Data ([facility]) Vital Signs (Past 12 Hours) Vital Signs Temp Pulse Pulse Pulse Resp BP Pulse Ox 01/09/22 12:41 36.9 C 82 16 141/74 H 97 01/09/22 11:03 77 01/09/22 08:13 37.2 C 78 21 135/62 92 01/09/22 02:04 36.9 C 95 H 14 143/78 H 98 Laboratory Results Short CBC 01/09/22 Range/Units 05:49 WBC 13.55 H (4.8-10.8) K/uL Hgb 8.6 L (14.0-18.0) g/dL Hct 27.7 L (42-52) % Plt Count 263 (130-400) K/uL BMP 01/09/22 05:49 Sodium 134 L Potassium 4.4 Chloride 99 Carbon Dioxide 28 BUN 22 Creatinine 1.05 Glucose 149 H Calcium 8.7 Medications Administered Current Inpatient Medications Acetaminophen (Acetaminophen 325 Mg Tab) 650 mg PO Q4H PRN PRN Reason: Pain or Fever Stop: 01/30/22 18:39 Allopurinol (Allopurinol 100 Mg Tab) 100 mg PO BID JO Stop: 01/30/22 20:59 Last Admin: 01/09/22 08:40 Dose: 100 mg Documented by: Ascorbic Acid (Ascorbic Acid 500 Mg Tab) 250 mg PO TID@0600,1200,1800 JO Stop: 01/30/22 20:59 Last Admin: 01/09/22 11:49 Dose: 250 mg Documented by: Baclofen (Baclofen 10 Mg Tab) 5 mg PO TID JO Stop: 01/30/22 20:59 Last Admin: 01/09/22 08:39 Dose: 5 mg Documented by: Collagenase (Collagenase Oint 30 Gm Tube) 1 appln TOP DAILY [facility] Stop: 01/31/22 08:59 Last Admin: 01/09/22 08:40 Dose: 1 appln Documented by: Cyclobenzaprine HCl (Cyclobenzaprine Hcl 5 Mg Tab) 15 mg PO 0000 [facility] Stop: 01/31/22 00:00 Last Admin: 01/09/22 00:02 Dose: 15 mg Documented by: Dextrose (Dextrose 50% 50 Ml Syringe) 25 - 50 ml IV UD PRN; Protocol PRN Reason: Hypoglycemia Protocol Stop: 01/30/22 18:39 Docusate Sodium (Docusate Sodium 100 Mg Cap) 100 mg PO AMHS [facility] Stop: 01/30/22 20:59 Last Admin: 01/09/22 08:41 Dose: 100 mg Documented by: Escitalopram Oxalate (Escitalopram Oxalate 20 Mg Tab) 20 mg PO QAM [facility] Stop: 01/31/22 08:59 Last Admin: 01/09/22 08:42 Dose: 20 mg Documented by: Ferrous Gluconate (Ferrous Gluconate 324 Mg Tab) 324 mg PO QAM [facility] Stop: 01/31/22 08:59 Last Admin: 01/09/22 08:41 Dose: 324 mg Documented by: Gabapentin (Gabapentin 800 Mg Tab) 800 mg PO BID@0600,1800 [facility] Stop: 01/30/22 20:59 Last Admin: 01/09/22 06:28 Dose: 800 mg Documented by: Glucagon (Glucagon For Inj 1 Mg Vial) 1 mg SQ UD PRN; Protocol PRN Reason: Hypoglycemia Protocol Stop: 01/30/22 18:39 Glucose (Glucose 10 Tabs/Tube) 4 - 8 tabs PO UD PRN; Protocol PRN Reason: Hypoglycemia Protocol Stop: 01/30/22 18:39 Glucose (Glucose 40% Gel 15 Gm Tube) 15 - 30 gm PO UD PRN; Protocol PRN Reason: Hypoglycemia Protocol Stop: 01/30/22 18:39 Hyoscyamine (Hyoscyamine Sulfate 0.125 Mg Tab) 0.125 mg PO QPM [facility] Stop: 01/30/22 20:59 Last Admin: 01/08/22 20:05 Dose: 0.125 mg Documented by: Heparin Sodium/Dextrose (Heparin Sodium/Dextrose) 25,000 units in 500 mls @ 43 mls/hr IV .[id number] [facility]; Protocol Stop: 01/30/22 20:44 Last Titration: 01/09/22 07:25 Dose: 2,150 units/hr, 43 mls/hr Documented by: Ampicillin Sodium/Sulbactam Sodium 3,000 mg/ Sodium Chloride 108 mls @ 200 mls/hr IV Q6H [facility]; Protocol Stop: 01/15/22 10:59 Last Infusion: 01/09/22 12:21 Dose: Infused Documented by: Insulin Aspart (Insulin Aspart Per Unit) 0 units SC ACHS [facility]; Protocol Stop: 01/30/22 20:59 Last Admin: 01/09/22 11:43 Dose: 40 units Documented by: Insulin Human NPH (Insulin Human Nph) 65 units SC BIDM [facility]; Protocol Stop: 02/02/22 07:59 Last Admin: 01/09/22 08:56 Dose: 65 units Documented by: Lactobacillus Acidophilus (Lactobacillus Acidophilus 1 Gm Pack) 1 gm PO BID [facility] Stop: 01/30/22 20:59 Last Admin: 01/09/22 08:41 Dose: 1 gm Documented by: Magnesium Oxide (Magnesium Oxide 400 Mg Tab) 400 mg PO BID@0000,1200 [facility] Stop: 01/31/22 00:00 Last Admin: 01/09/22 11:50 Dose: 400 mg Documented by: Miscellaneous (Carbohydrates For Hypoglycemia ) 15 - 30 gm PO UD PRN PRN Reason: Hypoglycemia Protocol Stop: 01/30/22 18:39 Miscellaneous Information (Pharmacy Glycemic Mgmt Consult) 1 ea N/A UD PRN PRN Reason: Consult Stop: 01/30/22 18:39 Multivitamins ([facility]ivitamin Tab) [facility] [place]: 01/31/22 08:59 Last Admin: 01/09/22 08:41 Dose: 1 tab Documented by: Ondansetron HCl (Ondansetron Inj 2 Mg/Ml 2 Ml Vial) 4 mg IV Q6H PRN PRN Reason: Nausea Stop: 01/30/22 18:39 Pantoprazole Sodium (Pantoprazole 40 Mg Tab) 40 mg PO BID [facility] Stop: 01/30/22 20:59 Last Admin: 01/09/22 08:42 Dose: 40 mg Documented by: Potassium Chloride (Potassium Chloride 10 Meq Tabcr) 10 meq PO BIDM [facility] Stop: 01/31/22 07:59 Last Admin: 01/09/22 08:38 Dose: 10 meq Documented by: Raspberry (Raspberry Syrup 5 Ml Udp) 5 ml PO BID [facility] Stop: 02/01/22 20:59 Last Admin: 01/09/22 08:45 Dose: 5 ml Documented by: Ropinirole HCl (Ropinirole Hcl 1 Mg Tablet) 1 mg PO QID@0000,0600,1200,1800 [facility] Stop: 01/31/22 00:00 Last Admin: 01/09/22 11:50 Dose: 1 mg Documented by: Tizanidine HCl (Tizanidine Hcl 4 Mg Tablet) 4 mg PO BID@0000,1200 [facility] Stop: 01/31/22 00:00 Last Admin: 01/09/22 11:50 Dose: 4 mg Documented by: Vancomycin HCl (Vancomycin Hcl 125 Mg/2.5ml Soln) 125 mg PO BID [facility] Stop: 02/01/22 20:59 Last Admin: 01/09/22 08:45 Dose: 125 mg Documented by: Warfarin Sodium (Warfarin Sod 6 Mg Tab) 6 mg PO SuTuWeThFrSa@1600 [facility] Stop: 02/01/22 15:59 Last Admin: 01/08/22 16:48 Dose: 6 mg Documented by: Warfarin Sodium (Warfarin Sod 7.5 Mg Tab) 7.5 mg PO Mo@1600 [facility] Stop: 02/04/22 15:59 Last Admin: 01/05/22 17:45 Dose: 7.5 mg Documented by: (1) Sepsis Sepsis type: sepsis due to unspecified organism
[2022-01-09 15:42] LABS: Partial Thromboplastin Ratio 4.9
[2022-01-09 15:46] LABS: Partial Thromboplastin Time 135.2 Seconds (21.0-31.0)
[2022-01-09] MEDS: WARFARIN SOD 7.5 MG TAB PO SCH (17:05)
[2022-01-09] MEDS: HYOSCYAMINE SULFATE 0.125 MG TAB PO SCH (22:35)
[2022-01-10] MEDS: rOPINIRole HCL 1 MG TABLET PO SCH ×5 (00:21→23:51)
[2022-01-10] MEDS: MAGNESIUM OXIDE 400 MG TAB PO SCH ×3 (00:21→23:51)
[2022-01-10] MEDS: tiZANidine HCL 4 MG TABLET PO SCH ×3 (00:21→23:51)
[2022-01-10 00:22] LABS: Partial Thromboplastin Time 54.7 Seconds (21.0-31.0)
[2022-01-10] MEDS: CYCLOBENZAPRINE HCL 5 MG TAB PO SCH ×2 (00:39→23:51)
[2022-01-10] MEDS: HEPARIN SODIUM/DEXTROSE 25,000 UNITS/500 ML BAG IV SCH ×2 (04:18→09:10)
[2022-01-10] MEDS: ASCORBIC ACID 500 MG TAB PO SCH ×3 (05:40→17:40)
[2022-01-10] MEDS: AMPICILLIN/SULBACTAM SOD 3,000 MG in 0.9 % SODIUM CHLORIDE 100 ML IV SCH ×4 (05:40→23:10)
[2022-01-10] MEDS: GABAPENTIN 800 MG TAB PO SCH ×2 (05:41→17:40)
[2022-01-10 06:41] LABS: Basophils # (auto) 0.03 K/uL (0-0.2); Basophils % (auto) 0.2 %; Eosinophils # (auto) 0.43 K/uL (0-0.5); Eosinophils % (auto) 3.3 %; Hematocrit (blood only) 25.9 % (42-52); Hemoglobin 8.1 g/dL (14.0-18.0); Immature Granulocytes # (auto) 0.09 K/uL (0.00-0.02); Immature Granulocytes % (auto) 0.7 %; Lymphocytes # (auto) 2.31 K/uL (1.2-3.4); Lymphocytes % (auto) 17.9 %; Mean Corpuscular Hemoglobin 26.3 pg (25-34); Mean Corpuscular Hgb Conc 31.3 g/dL (32-36); Mean Corpuscular Volume 84.1 fL (80-100); Mean Platelet Volume 9.1 fL (7.4-10.4); Monocytes # (auto) 0.52 K/uL (0.11-0.59); Neutrophils # (auto) 9.55 K/uL (1.4-6.5); Neutrophils % (auto) 73.9 %; Platelet Count 277 K/uL (130-400); RDW Coefficient of Variation 19.7 % (11.5-14.5); RDW Standard Deviation 60.5 fL (36.4-46.3); Red Blood Count 3.08 M/uL (4.7-6.1); White Blood Count 12.93 K/uL (4.8-10.8)
[2022-01-10 06:53] LABS: INR 1.7 (0.9-1.1); Prothrombin Time 17.2 Seconds (9.0-12.0)
[2022-01-10 07:00] LABS: BUN Creatinine Ratio 22.2 (10-20); Calcium 8.7 mg/dl (8.5-10.1); Creatinine Clr Calc Pharmacy 123.9 ml/min; Est GFR (African American) 94.2 ml/min; Est GFR (Non-African American) 81.3 ml/min; Potassium 4.3 mmol/L (3.5-5.1)
[2022-01-10] MEDS: LACTOBACILLUS ACIDOPHILUS 1 GM PACK PO SCH ×2 (09:00→21:20)
[2022-01-10] MEDS: INSULIN HUMAN NPH SC SCH ×2 (09:13→17:37)
[2022-01-10] MEDS: POTASSIUM CHLORIDE 10 MEQ TABCR PO SCH ×2 (09:14→17:40)
[2022-01-10] MEDS: allopurinoL 100 MG TAB PO SCH ×2 (09:15→21:19)
[2022-01-10] MEDS: BACLOFEN 10 MG TAB PO SCH ×3 (09:15→21:20)
[2022-01-10] MEDS: DOCUSATE SODIUM 100 MG CAP PO SCH ×2 (09:15→21:18)
[2022-01-10] MEDS: ESCITALOPRAM OXALATE 20 MG TAB PO SCH (09:16)
[2022-01-10] MEDS: MULTIVITAMIN TAB PO SCH (09:16)
[2022-01-10] MEDS: PANTOprazole 40 MG TAB PO SCH ×2 (09:16→21:19)
[2022-01-10] MEDS: VANCOMYCIN HCL 125 MG/2.5ML SOLN PO SCH ×2 (09:16→21:19)
[2022-01-10] MEDS: FERROUS GLUCONATE 324 MG TAB PO SCH (09:16)
[2022-01-10] MEDS: RASPBERRY SYRUP 5 ML UDP PO SCH ×2 (09:16→21:19)
[2022-01-10] MEDS: INSULIN ASPART PER UNIT SC SCH ×4 (09:31→21:20)
[2022-01-10] MEDS: COLLAGENASE OINT 30 GM TUBE TOP SCH (11:51)
--- NOTE | 2022-01-10 14:00 | Hospitalist Progress Note ---
Date of Service January 10, 2022 Assessment & Plan (1) Sepsis: Plan: List andPatient is 61 y/o M with history of MRSA/VRE/MDR Pseudomonas,sacral decubitus wounds, osteomyelitis, sepsis s/p surgical debridement in 09/2021, c/o lethargy for the past 3 days. Reports past 1 to 2 weeks has noted an opening to sacral area that concern underlying tunnel. CT abdomen pelvis: Redemonstration of a sacral decubitus ulcer which extends to the underlying bone. Interval resolution of the abscess shown on prior CT of September 06, 2021 and significant improvement in cellulitis. Interval bone loss involving the inferior sacrum and upper to mid coccyx since prior CT. This bone loss could be due to interval osteomyelitis or resection/debridement. Small portion of remaining coccyx may be exposed. Left inferior gluteal ulcer which extends to the underlying left ischial tuberosity, similar to prior CT. No evidence for acute osteomyelitis of the left ischial tuberosity. Received IV daptomycin, ceftazidime/avibactam in the ER Blood cultures negative Wound cx -May need WBC without any organism, culture showed gram-positive cocci Surgery on board -appreciate input and recommendation. No debridement Continue daptomycin IV abx ceftazidime/avibactam changed to Ceftolozane/Tazobactam base on previous sensitivity Surgery team called the and answered all questions White count has been improving Appreciate ID input and recommendation to continue Dapto and Avycaz for now with history of MDRO. P.o. Vanco 125 mg twice daily has been started as prophylaxis against C. difficile Preliminary wound culture is growing Enterococcus faecalis and is sensitive to ampicillin, daptomycin, penicillin, streptomycin and vancomycin Patient remained stable Discussed with the ID specialist in [place] for further recommendation regarding antibiotic Discussed in detail with the patient and the regarding side effect with penicillin in the past-used amoxicillin/ampicillin in the past for sinus infection without any issues Avycaz and daptomycin were discontinued and Unasyn started today Discussed with the ID specialist in [place] and recommended to have intravenous Unasyn for 6 weeks PICC line will be inserted today and the patient may be discharged this afternoon Home antibiotics cannot be given until Wednesday Remains stable to be discharged (2) Sacral wound: Plan: Pressure ulcer of sacral region, stage 4 POA Please see the picture for complete viewing of the wound A lot of drainage noted today as per the wound care nurse and seems to be a sinus track in the wound Will ask surgery to reevaluate the case-appreciate surgical reevaluation and no need for any debridement The drainage is stopped No indication for surgery as per the surgeon We will continue with dressing as per wound care recommendation Will need wound care as per instruction from the wound care nurse Continue wound care as per the instructions from the wound care nurse (3) Seizure disorder: Plan: Reported history of seizure disorder diagnosed at [facility] [place] Possible myoclonic jerk in th setting of sepsis CT head showed no acute intracranial abnormality Neuro on board - not recommend starting AED or seizure medication. If episodes become more frequent, will consider ambulatory EEG as outpatient. 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 Does not use CPAP Continue oxygen at bedtime History DVT s/p IVC filter on chronic anticoagulation INR: 1.9 today Currently on Heparin IV drip Will resume Coumadin Will D/C IV heparin drip once INR above 2 INR is 1.6 today-we will continue intravenous heparin INR is 1.3 and will continue Coumadin and heparin for now We will increase the dose of Coumadin has INR is 1.2 today Will give additional 4 mg Coumadin today We will check INR tomorrow-1.4 INR is 1.5 today-we will give additional dose of Coumadin today Check INR on Wednesday as an outpatient and dose Coumadin accordingly INR is 1.7 today Will recheck INR tomorrow Elevated TSH TSH: 12.7 Free T4 WNL Follow-up outpatient Chronic anemia Hgb: 9.3. Baseline 9-10 No signs symptoms of active bleeding Continue iron supplement HTN Hold Lasix, spironolactone Dyslipidemia Hold statin while on daptomycin Obesity BMI: 45 DVT Prophylaxis On IV heparin/Coumadin resumed We will give additional dose of Coumadin today Full code Admission and Anticipated Discharge Date Admission Date: December 31, 2021 Subjective 01/02/2022 The patient was seen and examined in the telemetry unit He has been feeling much better and denies any significant symptoms He has had interview with the ID specialist in [place] and awaiting further guidance regarding antibiotic Denies any fever and or chills, increasing pain, nausea or vomiting 01/03/2022 The patient was seen and examined in the telemetry unit He remains stable without any significant symptoms Denies any fever and or chills 01/04/2022 The patient was seen and examined in telemetry unit He has been feeling much better and denies any significant symptoms Denies any fever and chills, no pain over sacral area 01/05/2022 The patient was seen and examined in telemetry unit He remains a stable and asymptomatic He has paraplegia and remains generally weak and lethargic He was noted to have more drainage from the sacral wound today 01/06/2022 12:13PM, Dr. Munoz re-evaluate sacral ulcer, pt is stable, no fever, 01/06/2022 The patient was seen and examined in telemetry unit He remains generally weak but denies any other symptoms No fever and no chills and there is no more drainage from the sacral wound 01/07/2022 8:46AM, DR. Munoz, pt is stable, no fever, 01/07/2022 The patient was seen and examined in telemetry unit He has been stable without any fever and no chills, no chest pain or shortness of breath, no abdominal pain nausea and or vomiting The drainage from the wound has stopped 01/08/2022 The patient was seen and examined in telemetry unit He has been stable and denies any significant symptoms He mentioned that he has had ampicillin/amoxicillin before for sinus infection No evidence of significant allergic reactions with penicillin in the past We will try Unasyn 01/09/2022 The patient was seen and examined in telemetry unit He has been tolerating Unasyn Remains stable without any significant symptoms Wound care will be continued and the patient may be discharged this afternoon 01/10/2022 The patient was seen and examined in medical floor He has been tolerating Unasyn without any side effect and or symptoms His INR is 1.7 today Likely discharge Wednesday Review of Systems Review of Systems: All systems reviewed and are unremarkable except as noted below Physical Exam Physical Exam: Lying in bed comfortably Constitutional: well developed, well nourished and + obese; not ill appearing Eyes: PERRL, conjunctivae normal, anicteric sclerae ENMT: external ear and nose normal, oropharynx normal Neck: trachea midline, no thyromegaly Respiratory: no respiratory distress Auscultation: lungs clear to auscultation bilaterally and + diminished lung sounds Cardiovascular: Rate/Rhythm: regular rate and regular rhythm; not tachycardic Heart Sounds: normal S1 and normal S2; no murmur Extremities: + edema (Trace edema bilaterally) Gastrointestinal (Abdomen): Inspection/Auscultation: + abdomen abnormal to inspection (Has colostomy bag in the left lower quadrant) and abdomen not distended Percussion/Palpation: abdomen soft; abdomen nontender Musculoskeletal: No acute arthritis in any joint Neurologic: awake Psychiatric: A+Ox3, euthymic affect Lymphatic: no cervical or axillary lymphadenopathy Results & Data Results & Data ([facility]) Vital Signs (Past 12 Hours) Vital Signs Temp Pulse Resp BP Pulse Ox 01/10/22 07:21 36.9 C 76 18 104/67 98 Laboratory Results Short CBC 01/10/22 Range/Units 05:41 WBC 12.93 H (4.8-10.8) K/uL Hgb 8.1 L (14.0-18.0) g/dL Hct 25.9 L (42-52) % Plt Count 277 (130-400) K/uL BMP 01/10/22 05:41 Sodium 136 Potassium 4.3 Chloride 99 Carbon Dioxide 31 BUN 22 Creatinine 0.99 Glucose 165 H Calcium 8.7 Medications Administered Current Inpatient Medications Acetaminophen (Acetaminophen 325 Mg Tab) 650 mg PO Q4H PRN PRN Reason: Pain or Fever Stop: 01/30/22 18:39 Allopurinol (Allopurinol 100 Mg Tab) 100 mg PO BID [facility] Stop: 01/30/22 20:59 Last Admin: 01/10/22 09:15 Dose: 100 mg Documented by: Ascorbic Acid (Ascorbic Acid 500 Mg Tab) 250 mg PO TID@0600,1200,1800 [facility] Stop: 01/30/22 20:59 Last Admin: 01/10/22 11:54 Dose: 250 mg Documented by: Baclofen (Baclofen 10 Mg Tab) 5 mg PO TID [facility] Stop: 01/30/22 20:59 Last Admin: 01/10/22 13:56 Dose: 5 mg Documented by: Collagenase (Collagenase Oint 30 Gm Tube) 1 appln TOP DAILY [facility] Stop: 01/31/22 08:59 Last Admin: 01/10/22 11:51 Dose: Not Given Documented by: Cyclobenzaprine HCl (Cyclobenzaprine Hcl 5 Mg Tab) 15 mg PO 0000 [facility] Stop: 01/31/22 00:00 Last Admin: 01/10/22 00:39 Dose: 15 mg Documented by: Dextrose (Dextrose 50% 50 Ml Syringe) 25 - 50 ml IV UD PRN; Protocol PRN Reason: Hypoglycemia Protocol Stop: 01/30/22 18:39 Docusate Sodium (Docusate Sodium 100 Mg Cap) 100 mg PO AMHS [facility] Stop: 01/30/22 20:59 Last Admin: 01/10/22 09:15 Dose: 100 mg Documented by: Escitalopram Oxalate (Escitalopram Oxalate 20 Mg Tab) 20 mg PO QAM [facility] Stop: 01/31/22 08:59 Last Admin: 01/10/22 09:16 Dose: 20 mg Documented by: Ferrous Gluconate (Ferrous Gluconate 324 Mg Tab) 324 mg PO QAM [facility] Stop: 01/31/22 08:59 Last Admin: 01/10/22 09:16 Dose: 324 mg Documented by: Gabapentin (Gabapentin 800 Mg Tab) 800 mg PO BID@0600,1800 [facility] Stop: 01/30/22 20:59 Last Admin: 01/10/22 05:41 Dose: 800 mg Documented by: Glucagon (Glucagon For Inj 1 Mg Vial) 1 mg SQ UD PRN; Protocol PRN Reason: Hypoglycemia Protocol Stop: 01/30/22 18:39 Glucose (Glucose 10 Tabs/Tube) 4 - 8 tabs PO UD PRN; Protocol PRN Reason: Hypoglycemia Protocol Stop: 01/30/22 18:39 Glucose (Glucose 40% Gel 15 Gm Tube) 15 - 30 gm PO UD PRN; Protocol PRN Reason: Hypoglycemia Protocol Stop: 01/30/22 18:39 Heparin Sodium (Beef Lung) (Heparin 10 Unit/Ml 5 Ml Flush) 5 ml FLUSH PRN PRN PRN Reason: Flush Stop: 02/09/22 08:38 Last Admin: 01/10/22 12:59 Dose: 5 ml Documented by: Hyoscyamine (Hyoscyamine Sulfate 0.125 Mg Tab) 0.125 mg PO QPM [facility] Stop: 01/30/22 20:59 Last Admin: 01/09/22 22:35 Dose: 0.125 mg Documented by: Heparin Sodium/Dextrose (Heparin Sodium/Dextrose) 25,000 units in 500 mls @ 35 mls/hr IV .[id number] [facility]; Protocol Stop: 01/30/22 20:44 Last Admin: 01/10/22 09:10 Dose: 1,750 units/hr, 35 mls/hr Documented by: Ampicillin Sodium/Sulbactam Sodium 3,000 mg/ Sodium Chloride 108 mls @ 200 mls/hr IV Q6H [facility]; Protocol Stop: 01/15/22 10:59 Last Infusion: 01/10/22 12:25 Dose: Infused Documented by: Insulin Aspart (Insulin Aspart Per Unit) 0 units SC ACHS [facility]; Protocol Stop: 01/30/22 20:59 Last Admin: 01/10/22 13:56 Dose: 17 units Documented by: Insulin Human NPH (Insulin Human Nph) 65 units SC BIDM [facility]; Protocol Stop: 02/02/22 07:59 Last Admin: 01/10/22 09:13 Dose: 65 units Documented by: Lactobacillus Acidophilus (Lactobacillus Acidophilus 1 Gm Pack) 1 gm PO BID [facility] Stop: 01/30/22 20:59 Last Admin: 01/10/22 09:00 Dose: 1 gm Documented by: Magnesium Oxide (Magnesium Oxide 400 Mg Tab) 400 mg PO BID@0000,1200 [facility] Stop: 01/31/22 00:00 Last Admin: 01/10/22 11:54 Dose: 400 mg Documented by: Miscellaneous (Carbohydrates For Hypoglycemia ) 15 - 30 gm PO UD PRN PRN Reason: Hypoglycemia Protocol Stop: 01/30/22 18:39 Miscellaneous Information (Pharmacy Glycemic Mgmt Consult) 1 ea N/A UD PRN PRN Reason: Consult Stop: 01/30/22 18:39 Multivitamins (Multivitamin Tab) 1 tab PO QAM [facility] Stop: 01/31/22 08:59 Last Admin: 01/10/22 09:16 Dose: 1 tab Documented by: Ondansetron HCl (Ondansetron Inj 2 Mg/Ml 2 Ml Vial) 4 mg IV Q6H PRN PRN Reason: Nausea Stop: 01/30/22 18:39 Pantoprazole Sodium (Pantoprazole 40 Mg Tab) 40 mg PO BID [facility] Stop: 01/30/22 20:59 Last Admin: 01/10/22 09:16 Dose: 40 mg Documented by: Potassium Chloride (Potassium Chloride 10 Meq Tabcr) 10 meq PO BIDM [facility] Stop: 01/31/22 07:59 Last Admin: 01/10/22 09:14 Dose: 10 meq Documented by: Raspberry (Raspberry Syrup 5 Ml Udp) 5 ml PO BID [facility] Stop: 02/01/22 20:59 Last Admin: 01/10/22 09:16 Dose: 5 ml Documented by: Ropinirole HCl (Ropinirole Hcl 1 Mg Tablet) 1 mg PO QID@0000,0600,1200,1800 [facility] Stop: 01/31/22 00:00 Last Admin: 01/10/22 11:54 Dose: 1 mg Documented by: Tizanidine HCl (Tizanidine Hcl 4 Mg Tablet) 4 mg PO BID@0000,1200 [facility] Stop: 01/31/22 00:00 Last Admin: 01/10/22 11:55 Dose: 4 mg Documented by: Vancomycin HCl (Vancomycin Hcl 125 Mg/2.5ml Soln) 125 mg PO BID [facility] Stop: 02/01/22 20:59 Last Admin: 01/10/22 09:16 Dose: 125 mg Documented by: Warfarin Sodium (Warfarin Sod 7.5 Mg Tab) 7.5 mg PO DAILY@1600 [facility] Stop: 02/08/22 15:59 Last Admin: 01/09/22 17:05 Dose: 7.5 mg Documented by: (1) Sepsis Sepsis type: sepsis due to unspecified organism
[2022-01-10] MEDS: WARFARIN SOD 7.5 MG TAB PO SCH (16:26)
[2022-01-10 19:04] LABS: Partial Thromboplastin Ratio 1.9
[2022-01-10 19:10] LABS: Partial Thromboplastin Time 52.6 Seconds (21.0-31.0)
[2022-01-10] MEDS: HYOSCYAMINE SULFATE 0.125 MG TAB PO SCH (21:19)
[2022-01-11] MEDS: GABAPENTIN 800 MG TAB PO SCH ×2 (05:26→18:03)
[2022-01-11] MEDS: ASCORBIC ACID 500 MG TAB PO SCH ×3 (05:26→18:01)
[2022-01-11] MEDS: AMPICILLIN/SULBACTAM SOD 3,000 MG in 0.9 % SODIUM CHLORIDE 100 ML IV SCH ×4 (05:26→23:04)
[2022-01-11] MEDS: rOPINIRole HCL 1 MG TABLET PO SCH ×4 (05:27→23:04)
[2022-01-11 07:32] LABS: INR 1.7 (0.9-1.1); Prothrombin Time 17.7 Seconds (9.0-12.0)
[2022-01-11 07:55] LABS: Partial Thromboplastin Time 53.8 Seconds (21.0-31.0)
[2022-01-11] MEDS: FERROUS GLUCONATE 324 MG TAB PO SCH (08:17)
[2022-01-11] MEDS: MULTIVITAMIN TAB PO SCH (08:17)
[2022-01-11] MEDS: BACLOFEN 10 MG TAB PO SCH ×3 (08:18→20:57)
[2022-01-11] MEDS: ESCITALOPRAM OXALATE 20 MG TAB PO SCH (08:18)
[2022-01-11] MEDS: LACTOBACILLUS ACIDOPHILUS 1 GM PACK PO SCH ×2 (08:18→19:59)
[2022-01-11] MEDS: POTASSIUM CHLORIDE 10 MEQ TABCR PO SCH ×2 (08:19→18:00)
[2022-01-11] MEDS: allopurinoL 100 MG TAB PO SCH ×2 (08:20→20:58)
[2022-01-11] MEDS: PANTOprazole 40 MG TAB PO SCH ×2 (08:20→20:57)
[2022-01-11] MEDS: DOCUSATE SODIUM 100 MG CAP PO SCH ×2 (08:20→20:58)
[2022-01-11] MEDS: RASPBERRY SYRUP 5 ML UDP PO SCH ×2 (08:21→21:08)
[2022-01-11] MEDS: VANCOMYCIN HCL 125 MG/2.5ML SOLN PO SCH ×2 (08:29→21:08)
[2022-01-11] MEDS: COLLAGENASE OINT 30 GM TUBE TOP SCH (08:30)
[2022-01-11] MEDS: INSULIN HUMAN NPH SC SCH ×2 (09:11→17:58)
[2022-01-11] MEDS: INSULIN ASPART PER UNIT SC SCH ×4 (09:13→21:07)
[2022-01-11] MEDS: MAGNESIUM OXIDE 400 MG TAB PO SCH ×2 (11:54→23:04)
[2022-01-11] MEDS: tiZANidine HCL 4 MG TABLET PO SCH ×2 (11:54→23:04)
--- NOTE | 2022-01-11 15:22 | Hospitalist Progress Note ---
Date of Service January 11, 2022 Assessment & Plan (1) Sepsis: Plan: List andPatient is 61 y/o M with history of MRSA/VRE/MDR Pseudomonas,sacral decubitus wounds, osteomyelitis, sepsis s/p surgical debridement in 09/2021, c/o lethargy for the past 3 days. Reports past 1 to 2 weeks has noted an opening to sacral area that concern underlying tunnel. CT abdomen pelvis: Redemonstration of a sacral decubitus ulcer which extends to the underlying bone. Interval resolution of the abscess shown on prior CT of September 06, 2021 and significant improvement in cellulitis. Interval bone loss involving the inferior sacrum and upper to mid coccyx since prior CT. This bone loss could be due to interval osteomyelitis or resection/debridement. Small portion of remaining coccyx may be exposed. Left inferior gluteal ulcer which extends to the underlying left ischial tuberosity, similar to prior CT. No evidence for acute osteomyelitis of the left ischial tuberosity. Received IV daptomycin, ceftazidime/avibactam in the ER Blood cultures negative Wound cx -May need WBC without any organism, culture showed gram-positive cocci Surgery on board -appreciate input and recommendation. No debridement Continue daptomycin IV abx ceftazidime/avibactam changed to Ceftolozane/Tazobactam base on previous sensitivity Surgery team called the and answered all questions White count has been improving Appreciate ID input and recommendation to continue Dapto and Avycaz for now with history of MDRO. P.o. Vanco 125 mg twice daily has been started as prophylaxis against C. difficile Preliminary wound culture is growing Enterococcus faecalis and is sensitive to ampicillin, daptomycin, penicillin, streptomycin and vancomycin Patient remained stable Discussed with the ID specialist in [place] for further recommendation regarding antibiotic Discussed in detail with the patient and the regarding side effect with penicillin in the past-used amoxicillin/ampicillin in the past for sinus infection without any issues Avycaz and daptomycin were discontinued and Unasyn started today Discussed with the ID specialist in [place] and recommended to have intravenous Unasyn for 6 weeks PICC line will be inserted today and the patient may be discharged this afternoon Home antibiotics cannot be given until Wednesday-Will need outpatient CBC and CMP weekly as long as he is on intravenous antibiotic Remains stable to be discharged (2) Sacral wound: Plan: Pressure ulcer of sacral region, stage 4 POA Please see the picture for complete viewing of the wound A lot of drainage noted today as per the wound care nurse and seems to be a sinus track in the wound Will ask surgery to reevaluate the case-appreciate surgical reevaluation and no need for any debridement The drainage is stopped No indication for surgery as per the surgeon Wound care as per the wound care nurse (3) Seizure disorder: Plan: Reported history of seizure disorder diagnosed at [facility] [place] Possible myoclonic jerk in th setting of sepsis CT head showed no acute intracranial abnormality Neuro on board - not recommend starting AED or seizure medication. If episodes become more frequent, will consider ambulatory EEG as outpatient. 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 Does not use CPAP Continue oxygen at bedtime History DVT s/p IVC filter on chronic anticoagulation INR: 1.9 today Currently on Heparin IV drip Will resume Coumadin Will D/C IV heparin drip once INR above 2 INR is 1.6 today-we will continue intravenous heparin INR is 1.3 and will continue Coumadin and heparin for now We will increase the dose of Coumadin has INR is 1.2 today Will give additional 4 mg Coumadin today We will check INR tomorrow-1.4 INR is 1.5 today-we will give additional dose of Coumadin today Check INR on Wednesday as an outpatient and dose Coumadin accordingly INR is 1.7 today-INR remains low likely due to interaction with antibiotic Will increase start Coumadin to 10 mg once daily Elevated TSH TSH: 12.7 Free T4 WNL Follow-up outpatient Chronic anemia Hgb: 9.3. Baseline 9-10 No signs symptoms of active bleeding Continue iron supplement HTN Hold Lasix, spironolactone Dyslipidemia Hold statin while on daptomycin Obesity BMI: 45 DVT Prophylaxis On IV heparin/Coumadin resumed Coumadin doses have been increased to 10 mg daily Full code Admission and Anticipated Discharge Date Admission Date: December 31, 2021 Subjective 01/02/2022 The patient was seen and examined in the telemetry unit He has been feeling much better and denies any significant symptoms He has had interview with the ID specialist in [place] and awaiting further guidance regarding antibiotic Denies any fever and or chills, increasing pain, nausea or vomiting 01/03/2022 The patient was seen and examined in the telemetry unit He remains stable without any significant symptoms Denies any fever and or chills 01/04/2022 The patient was seen and examined in telemetry unit He has been feeling much better and denies any significant symptoms Denies any fever and chills, no pain over sacral area 01/05/2022 The patient was seen and examined in telemetry unit He remains a stable and asymptomatic He has paraplegia and remains generally weak and lethargic He was noted to have more drainage from the sacral wound today 01/06/2022 12:13PM, Dr. Munoz re-evaluate sacral ulcer, pt is stable, no fever, 01/06/2022 The patient was seen and examined in telemetry unit He remains generally weak but denies any other symptoms No fever and no chills and there is no more drainage from the sacral wound 01/07/2022 8:46AM, DR. Munoz, pt is stable, no fever, 01/07/2022 The patient was seen and examined in telemetry unit He has been stable without any fever and no chills, no chest pain or shortness of breath, no abdominal pain nausea and or vomiting The drainage from the wound has stopped 01/08/2022 The patient was seen and examined in telemetry unit He has been stable and denies any significant symptoms He mentioned that he has had ampicillin/amoxicillin before for sinus infection No evidence of significant allergic reactions with penicillin in the past We will try Unasyn 01/09/2022 The patient was seen and examined in telemetry unit He has been tolerating Unasyn Remains stable without any significant symptoms Wound care will be continued and the patient may be discharged this afternoon 01/10/2022 The patient was seen and examined in medical floor He has been tolerating Unasyn without any side effect and or symptoms His INR is 1.7 today Likely discharge Wednesday01/11/2022 The patient was seen and examined in medical floor He has been stable Denies any symptoms and INR remains static at 1.7 Review of Systems Review of Systems: All systems reviewed and are unremarkable except as noted below Musculoskeletal: Generally weak and lethargic Physical Exam Physical Exam: Lying in bed comfortably Constitutional: well developed, well nourished and + obese; not ill appearing Eyes: PERRL, conjunctivae normal, anicteric sclerae ENMT: external ear and nose normal, oropharynx normal Neck: trachea midline, no thyromegaly Respiratory: no respiratory distress Auscultation: lungs clear to auscultation bilaterally and + diminished lung sounds Cardiovascular: Rate/Rhythm: regular rate and regular rhythm; not tachycardic Heart Sounds: normal S1 and normal S2; no murmur Extremities: + edema (Trace edema bilaterally) Gastrointestinal (Abdomen): Inspection/Auscultation: + abdomen abnormal to inspection (Has colostomy bag in the left lower quadrant) and abdomen not distended Percussion/Palpation: abdomen soft; abdomen nontender Musculoskeletal: No acute arthritis in any joint Neurologic: awake Alert, awake and oriented x3. Has paraplegia Psychiatric: A+Ox3, euthymic affect Lymphatic: no cervical or axillary lymphadenopathy Results & Data Results & Data ([facility]) Vital Signs (Past 12 Hours) Vital Signs Temp Pulse Resp BP Pulse Ox 01/11/22 14:43 36.8 C 75 20 119/70 94 01/11/22 07:27 37.1 C 76 18 111/65 90 Medications Administered Current Inpatient Medications Acetaminophen (Acetaminophen 325 Mg Tab) 650 mg PO Q4H PRN PRN Reason: Pain or Fever Stop: 01/30/22 18:39 Allopurinol (Allopurinol 100 Mg Tab) 100 mg PO BID JO Stop: 01/30/22 20:59 Last Admin: 01/11/22 08:20 Dose: 100 mg Documented by: Ascorbic Acid (Ascorbic Acid 500 Mg Tab) 250 mg PO TID@0600,1200,1800 JO Stop: 01/30/22 20:59 Last Admin: 01/11/22 11:54 Dose: 250 mg Documented by: Baclofen (Baclofen 10 Mg Tab) 5 mg PO TID JO Stop: 01/30/22 20:59 Last Admin: 01/11/22 13:10 Dose: 5 mg Documented by: Collagenase (Collagenase Oint 30 Gm Tube) 1 appln TOP DAILY JO Stop: 01/31/22 08:59 Last Admin: 01/11/22 08:30 Dose: 1 appln Documented by: Cyclobenzaprine HCl (Cyclobenzaprine Hcl 5 Mg Tab) 15 mg PO 0000 [facility] Stop: 01/31/22 00:00 Last Admin: 01/10/22 23:51 Dose: 15 mg Documented by: Dextrose (Dextrose 50% 50 Ml Syringe) 25 - 50 ml IV UD PRN; Protocol PRN Reason: Hypoglycemia Protocol Stop: 01/30/22 18:39 Docusate Sodium (Docusate Sodium 100 Mg Cap) 100 mg PO AMHS JO Stop: 01/30/22 20:59 Last Admin: 01/11/22 08:20 Dose: 100 mg Documented by: Escitalopram Oxalate (Escitalopram Oxalate 20 Mg Tab) 20 mg PO QAM JO Stop: 01/31/22 08:59 Last Admin: 01/11/22 08:18 Dose: 20 mg Documented by: Ferrous Gluconate (Ferrous Gluconate 324 Mg Tab) 324 mg PO QAM JO Stop: 01/31/22 08:59 Last Admin: 01/11/22 08:17 Dose: 324 mg Documented by: Gabapentin (Gabapentin 800 Mg Tab) 800 mg PO BID@0600,1800 [facility] Stop: 01/30/22 20:59 Last Admin: 01/11/22 05:26 Dose: 800 mg Documented by: Glucagon (Glucagon For Inj 1 Mg Vial) 1 mg SQ UD PRN; Protocol PRN Reason: Hypoglycemia Protocol Stop: 01/30/22 18:39 Glucose (Glucose 10 Tabs/Tube) 4 - 8 tabs PO UD PRN; Protocol PRN Reason: Hypoglycemia Protocol Stop: 01/30/22 18:39 Glucose (Glucose 40% Gel 15 Gm Tube) 15 - 30 gm PO UD PRN; Protocol PRN Reason: Hypoglycemia Protocol Stop: 01/30/22 18:39 Heparin Sodium (Beef Lung) (Heparin 10 Unit/Ml 5 Ml Flush) 5 ml FLUSH PRN PRN PRN Reason: Flush Stop: 02/09/22 08:38 Last Admin: 01/11/22 13:08 Dose: 5 ml Documented by: Hyoscyamine (Hyoscyamine Sulfate 0.125 Mg Tab) 0.125 mg PO QPM JO Stop: 01/30/22 20:59 Last Admin: 01/10/22 21:19 Dose: 0.125 mg Documented by: Heparin Sodium/Dextrose (Heparin Sodium/Dextrose) 25,000 units in 500 mls @ 35 mls/hr IV .[id number] [facility]; Protocol Stop: 01/30/22 20:44 Last Titration: 01/11/22 10:33 Dose: 1,750 units/hr, 35 mls/hr Documented by: Ampicillin Sodium/Sulbactam Sodium 3,000 mg/ Sodium Chloride 108 mls @ 200 mls/hr IV Q6H [facility]; Protocol Stop: 01/15/22 10:59 Last Infusion: 01/11/22 13:00 Dose: Infused Documented by: Insulin Aspart (Insulin Aspart Per Unit) 0 units SC ACHS [facility]; Protocol Stop: 01/30/22 20:59 Last Admin: 01/11/22 13:07 Dose: 33 units Documented by: Insulin Human NPH (Insulin Human Nph) 65 units SC BIDM [facility]; Protocol Stop: 02/02/22 07:59 Last Admin: 01/11/22 09:11 Dose: 65 units Documented by: Lactobacillus Acidophilus (Lactobacillus Acidophilus 1 Gm Pack) 1 gm PO BID [facility] Stop: 01/30/22 20:59 Last Admin: 01/11/22 08:18 Dose: 1 gm Documented by: Magnesium Oxide (Magnesium Oxide 400 Mg Tab) 400 mg PO BID@0000,1200 [facility] Stop: 01/31/22 00:00 Last Admin: 01/11/22 11:54 Dose: 400 mg Documented by: Miscellaneous (Carbohydrates For Hypoglycemia ) 15 - 30 gm PO UD PRN PRN Reason: Hypoglycemia Protocol Stop: 01/30/22 18:39 Miscellaneous Information (Pharmacy Glycemic Mgmt Consult) 1 ea N/A UD PRN PRN Reason: Consult Stop: 01/30/22 18:39 Multivitamins (Multivitamin Tab) 1 tab PO QAM [facility] Stop: 01/31/22 08:59 Last Admin: 01/11/22 08:17 Dose: 1 tab Documented by: Ondansetron HCl (Ondansetron Inj 2 Mg/Ml 2 Ml Vial) 4 mg IV Q6H PRN PRN Reason: Nausea Stop: 01/30/22 18:39 Pantoprazole Sodium (Pantoprazole 40 Mg Tab) 40 mg PO BID [facility] Stop: 01/30/22 20:59 Last Admin: 01/11/22 08:20 Dose: 40 mg Documented by: Potassium Chloride (Potassium Chloride 10 Meq Tabcr) 10 meq PO BIDM [facility] Stop: 01/31/22 07:59 Last Admin: 01/11/22 08:19 Dose: 10 meq Documented by: Raspberry (Raspberry Syrup 5 Ml Udp) 5 ml PO BID [facility] Stop: 02/01/22 20:59 Last Admin: 01/11/22 08:21 Dose: 5 ml Documented by: Ropinirole HCl (Ropinirole Hcl 1 Mg Tablet) 1 mg PO QID@0000,0600,1200,1800 [facility] Stop: 01/31/22 00:00 Last Admin: 01/11/22 11:53 Dose: 1 mg Documented by: Tizanidine HCl (Tizanidine Hcl 4 Mg Tablet) 4 mg PO BID@0000,1200 [facility] Stop: 01/31/22 00:00 Last Admin: 01/11/22 11:54 Dose: 4 mg Documented by: Vancomycin HCl (Vancomycin Hcl 125 Mg/2.5ml Soln) 125 mg PO BID [facility] Stop: 02/01/22 20:59 Last Admin: 01/11/22 08:29 Dose: 125 mg Documented by: Warfarin Sodium (Warfarin Sod 10 Mg Tab) 10 mg PO DAILY@1600 [facility] Stop: 02/10/22 15:59 (1) Sepsis Sepsis type: sepsis due to unspecified organism
[2022-01-11] MEDS: HEPARIN SODIUM/DEXTROSE 25,000 UNITS/500 ML BAG IV SCH ×2 (15:55)
[2022-01-11] MEDS: WARFARIN SOD 10 MG TAB PO SCH (16:00)
[2022-01-11] MEDS: HYOSCYAMINE SULFATE 0.125 MG TAB PO SCH (20:57)
[2022-01-11] MEDS: CYCLOBENZAPRINE HCL 5 MG TAB PO SCH (23:04)
[2022-01-12] MEDS: AMPICILLIN/SULBACTAM SOD 3,000 MG in 0.9 % SODIUM CHLORIDE 100 ML IV SCH ×4 (04:57→23:24)
[2022-01-12] MEDS: HEPARIN SODIUM/DEXTROSE 25,000 UNITS/500 ML BAG IV SCH (05:32)
[2022-01-12] MEDS: ASCORBIC ACID 500 MG TAB PO SCH ×3 (05:35→17:26)
[2022-01-12] MEDS: GABAPENTIN 800 MG TAB PO SCH ×2 (05:36→17:27)
[2022-01-12] MEDS: rOPINIRole HCL 1 MG TABLET PO SCH ×4 (05:36→23:26)
[2022-01-12 06:14] LABS: Basophils # (auto) 0.03 K/uL (0-0.2); Basophils % (auto) 0.2 %; Eosinophils # (auto) 0.53 K/uL (0-0.5); Eosinophils % (auto) 4.1 %; Hematocrit (blood only) 26.9 % (42-52); Hemoglobin 8.2 g/dL (14.0-18.0); Immature Granulocytes # (auto) 0.09 K/uL (0.00-0.02); Immature Granulocytes % (auto) 0.7 %; Lymphocytes # (auto) 2.43 K/uL (1.2-3.4); Lymphocytes % (auto) 18.8 %; Mean Corpuscular Hemoglobin 25.9 pg (25-34); Mean Corpuscular Hgb Conc 30.5 g/dL (32-36); Mean Corpuscular Volume 85.1 fL (80-100); Monocytes # (auto) 0.65 K/uL (0.11-0.59); Neutrophils % (auto) 71.2 %; Platelet Count 286 K/uL (130-400); RDW Coefficient of Variation 19.4 % (11.5-14.5); RDW Standard Deviation 60.2 fL (36.4-46.3); Red Blood Count 3.16 M/uL (4.7-6.1); White Blood Count 12.93 K/uL (4.8-10.8)
[2022-01-12 06:37] LABS: Albumin Globulin Ratio 0.8 (0.9-2); Albumin Level 3.1 gm/dl (3.4-5.0); BUN Creatinine Ratio 18.9 (10-20); Bilirubin,Total 0.4 mg/dl (0.2-1.0); Calcium 8.9 mg/dl (8.5-10.1); Creatinine Clr Calc Pharmacy 115.7 ml/min; Est GFR (African American) 86.8 ml/min; Est GFR (Non-African American) 74.8 ml/min; Potassium 4.4 mmol/L (3.5-5.1); Total Protein 7.1 gm/dl (6.0-8.3)
[2022-01-12 06:41] LABS: Partial Thromboplastin Ratio 4.2
[2022-01-12] MEDS: BACLOFEN 10 MG TAB PO SCH ×3 (08:45→20:42)
[2022-01-12] MEDS: LACTOBACILLUS ACIDOPHILUS 1 GM PACK PO SCH ×2 (08:46→19:46)
[2022-01-12] MEDS: allopurinoL 100 MG TAB PO SCH ×2 (08:46→20:42)
[2022-01-12] MEDS: MAGNESIUM OXIDE 400 MG TAB PO SCH ×2 (08:47→23:26)
[2022-01-12] MEDS: FERROUS GLUCONATE 324 MG TAB PO SCH (08:47)
[2022-01-12] MEDS: POTASSIUM CHLORIDE 10 MEQ TABCR PO SCH ×2 (08:47→17:26)
[2022-01-12] MEDS: ESCITALOPRAM OXALATE 20 MG TAB PO SCH (08:47)
[2022-01-12] MEDS: MULTIVITAMIN TAB PO SCH (08:48)
[2022-01-12] MEDS: PANTOprazole 40 MG TAB PO SCH ×2 (08:48→20:44)
[2022-01-12] MEDS: DOCUSATE SODIUM 100 MG CAP PO SCH ×2 (08:49→20:43)
[2022-01-12] MEDS: COLLAGENASE OINT 30 GM TUBE TOP SCH (08:50)
[2022-01-12] MEDS: RASPBERRY SYRUP 5 ML UDP PO SCH ×2 (08:50→20:46)
[2022-01-12] MEDS: INSULIN HUMAN NPH SC SCH ×2 (08:53→17:23)
[2022-01-12] MEDS: INSULIN ASPART PER UNIT SC SCH ×4 (09:05→21:11)
[2022-01-12] MEDS: VANCOMYCIN HCL 125 MG/2.5ML SOLN PO SCH ×2 (09:07→20:46)
[2022-01-12 09:28] LABS: INR 1.8 (0.9-1.1); Prothrombin Time 18.9 Seconds (9.0-12.0)
[2022-01-12] MEDS: tiZANidine HCL 4 MG TABLET PO SCH ×2 (11:34→23:26)
--- NOTE | 2022-01-12 13:11 | Pharmacy Report ---
Pharmacy Glycemic Short Note 2 - Date of Service January 12, 2022 - Glycemic Short BSG Results (Last 24 hours): 01/11/22 01/11/22 01/12/22 16:52 20:53 05:31 Glucose 168 H POC Glucose 153 H 232 H 01/12/22 01/12/22 08:07 11:43 Glucose POC Glucose 168 H 169 H OUTPATIENT ANTIDIABETIC REGIMEN: * Novolin 70/30 - 60 units SQ BIDM * Novolin R SSI * Metformin 1000 mg PO BIDM * HbA1c = 7.2% (09/23/21) ASSESSMENT: 01/12 * BSGs have been stable, did have an episode of hyperglycemia last PM * Will continue same today, monitor for HS trend, may need to adjust dinner insulin 01/08: * BSGs again well controlled, all less than 180 over last 24 hrs * Fasting BSG 168, somewhat elevated however given the fact BSGs routinely falling b/w 113-180 over last 2 days - no changes will be made 01/06: * Mr. Rodriguez's BSGs have been stable without any changes in his stressors over the past 24 hours. * BSGs: [phone] * Received 193 units of insulin yesterday (130 units NPH + 63 units Novolog) * Fasting BSG is well controlled at 120 mg/dL this AM. No change to NPH. * Continue with current Novolog dosing. 01/04: * Mr Rodriguez was hyperglycemic throughout the day yesterday. NPH was increased and Novolog parameters were tightened. * Fasting BSG is reasonable this morning, so will continue current dose of NPH. * Novolog parameters were further tightened last evening. Will consider more adjustments if BSGs remain elevated. PLAN FOR INPATIENT GLYCEMIC CONTROL: * Hold outpatient oral diabetes medications * Basal insulin * NPH 65 units SQ BID with meals * Bolus insulin * NovoLog per scale ACHS or Q6hrs while NPO * Goal Range: Low 110 mg/dL - High 140 mg/dL * Correction Factor: 8 mg/dL/unit * Nutritional / Prandial insulin per carb ratio of 1 unit per 2 grams CHO consumed
[2022-01-12 16:05] LABS: Partial Thromboplastin Ratio 3.4
[2022-01-12] MEDS: WARFARIN SOD 10 MG TAB PO SCH (16:16)
[2022-01-12 18:24] LABS: Partial Thromboplastin Time 92.6 Seconds (21.0-31.0)
[2022-01-12] MEDS: HYOSCYAMINE SULFATE 0.125 MG TAB PO SCH (20:43)
--- NOTE | 2022-01-12 22:31 | Hospitalist Progress Note ---
Date of Service January 12, 2022 Assessment & Plan (1) Sepsis: Plan: List andPatient is 61 y/o M with history of MRSA/VRE/MDR Pseudomonas,sacral decubitus wounds, osteomyelitis, sepsis s/p surgical debridement in 09/2021, c/o lethargy for the past 3 days. Reports past 1 to 2 weeks has noted an opening to sacral area that concern underlying tunnel. CT abdomen pelvis: Redemonstration of a sacral decubitus ulcer which extends to the underlying bone. Interval resolution of the abscess shown on prior CT of September 06, 2021 and significant improvement in cellulitis. Interval bone loss involving the inferior sacrum and upper to mid coccyx since prior CT. This bone loss could be due to interval osteomyelitis or resection/debridement. Small portion of remaining coccyx may be exposed. Left inferior gluteal ulcer which extends to the underlying left ischial tuberosity, similar to prior CT. No evidence for acute osteomyelitis of the left ischial tuberosity. Received IV daptomycin, ceftazidime/avibactam in the ER Blood cultures negative Wound cx -May need WBC without any organism, culture showed gram-positive cocci Surgery on board -appreciate input and recommendation. No debridement Continue daptomycin IV abx ceftazidime/avibactam changed to Ceftolozane/Tazobactam base on previous sensitivity Surgery team called the and answered all questions White count has been improving Appreciate ID input and recommendation to continue Dapto and Avycaz for now with history of MDRO. P.o. Vanco 125 mg twice daily has been started as prophylaxis against C. difficile Preliminary wound culture is growing Enterococcus faecalis and is sensitive to ampicillin, daptomycin, penicillin, streptomycin and vancomycin Patient remained stable Discussed with the ID specialist in [place] for further recommendation regarding antibiotic Discussed in detail with the patient and the regarding side effect with penicillin in the past-used amoxicillin/ampicillin in the past for sinus infection without any issues Avycaz and daptomycin were discontinued and Unasyn started today Discussed with the ID specialist in [place] and recommended to have intravenous Unasyn for [address] weeks [address] line in place Will need outpatient CBC and CMP weekly as long as he is on intravenous antibiotic Remains stable to be discharged tomorrow (2) Sacral wound: Plan: Pressure ulcer of sacral region, stage 4 POA Please see the picture for complete viewing of the wound A lot of drainage noted today as per the wound care nurse and seems to be a sinus track in the wound Will ask surgery to reevaluate the case-appreciate surgical reevaluation and no need for any debridement The drainage is stopped No indication for surgery as per the surgeon Wound care as per the wound care nurse (3) Seizure disorder: Plan: Reported history of seizure disorder diagnosed at [facility] [place] Possible myoclonic jerk in th setting of sepsis CT head showed no acute intracranial abnormality Neuro on board - not recommend starting AED or seizure medication. If episodes become more frequent, will consider ambulatory EEG as outpatient. 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 Does not use CPAP Continue oxygen at bedtime History DVT s/p IVC filter on chronic anticoagulation INR: 1.9 today Currently on Heparin IV drip Will resume Coumadin Will D/C IV heparin drip once INR above 2 INR is 1.6 today-we will continue intravenous heparin INR is 1.3 and will continue Coumadin and heparin for now We will increase the dose of Coumadin has INR is 1.2 today Will give additional 4 mg Coumadin today We will check INR tomorrow-1.4 INR is 1.5 today-we will give additional dose of Coumadin today Check INR on Wednesday as an outpatient and dose Coumadin accordingly INR is 1.8 today-INR remains low likely due to interaction with antibiotic Continue Coumadin to 10 mg once daily. Will need to follow up with the coumadin clinic Elevated TSH TSH: 12.7 Free T4 WNL Follow-up outpatient Chronic anemia Hgb: 8.2 Baseline 9-10 No signs symptoms of active bleeding Continue iron supplement Check CBC in 1 week HTN Hold Lasix, spironolactone Dyslipidemia Hold statin while on daptomycin Obesity BMI: 45 DVT Prophylaxis On IV heparin bridge and Coumadin until INR therapeutic Full code Admission and Anticipated Discharge Date Admission Date: December 31, 2021 Subjective Pt was seen and examined for follow up Lying in bed with no acute distress with at bedside Pt said that he feels ok He is ready to be discharge tomorrow He is looking forward to go to the [employer] baseball game in the next few weeks Denies any chest pain, palpitation, dizziness and SOB Review of Systems Review of Systems: All systems reviewed & are unremarkable except as noted in Subjective Physical Exam Physical Exam: General- No acute distress Head- atraumatic Eyes- PERRL, EOMI, ENT- oropharynx clear Neck- supple, no JVD Lungs- clear to auscultation Heart- regular rhythm; no murmur Abdomen- normal bowel sounds, +ostomy Extremities- no calf tenderness, B/L paralysis Neuro- alert, oriented x 3; PERRL, EOMI; no facial palsy; no dysarthria Skin- warm & dry Results & Data Results & Data ([facility]) Vital Signs (Past 12 Hours) Vital Signs Temp Pulse Resp BP Pulse Ox 01/12/22 21:32 37.4 C 89 16 100/64 92 01/12/22 14:39 37.2 C 86 17 142/69 H 96 01/12/22 13:24 36.4 C L 66 18 118/64 96 (1) Sepsis Sepsis type: sepsis due to unspecified organism
[2022-01-12] MEDS: CYCLOBENZAPRINE HCL 5 MG TAB PO SCH (23:26)
[2022-01-13] MEDS: HEPARIN SODIUM/DEXTROSE 25,000 UNITS/500 ML BAG IV SCH ×4 (01:04→08:07)
[2022-01-13 03:23] LABS: Partial Thromboplastin Ratio 1.7; Partial Thromboplastin Time 47.7 Seconds (21.0-31.0)
[2022-01-13] MEDS: AMPICILLIN/SULBACTAM SOD 3,000 MG in 0.9 % SODIUM CHLORIDE 100 ML IV SCH ×2 (05:40→13:02)
[2022-01-13] MEDS: GABAPENTIN 800 MG TAB PO SCH (05:41)
[2022-01-13] MEDS: rOPINIRole HCL 1 MG TABLET PO SCH ×2 (05:41→12:46)
[2022-01-13] MEDS: ASCORBIC ACID 500 MG TAB PO SCH ×2 (05:41→12:46)
[2022-01-13 06:17] LABS: Hematocrit (blood only) 27.1 % (42-52); Hemoglobin 8.1 g/dL (14.0-18.0); Mean Corpuscular Hemoglobin 25.1 pg (25-34); Mean Corpuscular Hgb Conc 29.9 g/dL (32-36); Mean Corpuscular Volume 83.9 fL (80-100); Mean Platelet Volume 8.7 fL (7.4-10.4); Platelet Count 285 K/uL (130-400); RDW Coefficient of Variation 19.6 % (11.5-14.5); RDW Standard Deviation 59.6 fL (36.4-46.3); Red Blood Count 3.23 M/uL (4.7-6.1); White Blood Count 13.51 K/uL (4.8-10.8)
[2022-01-13 06:33] LABS: INR 2.1 (0.9-1.1); Prothrombin Time 21.3 Seconds (9.0-12.0)
[2022-01-13 07:45] VITALS: TEMP 98.6; O2SAT 96
[2022-01-13] MEDS ORDERED: metFORMIN HCL 500 MG TAB PO SCH (08:00)
[2022-01-13] MEDS: INSULIN ASPART PER UNIT SC SCH ×2 (08:38→12:46)
[2022-01-13] MEDS: INSULIN HUMAN NPH SC SCH (08:39)
[2022-01-13] MEDS: allopurinoL 100 MG TAB PO SCH (08:42)
[2022-01-13] MEDS: BACLOFEN 10 MG TAB PO SCH ×2 (08:42→14:01)
[2022-01-13] MEDS: POTASSIUM CHLORIDE 10 MEQ TABCR PO SCH (08:42)
[2022-01-13] MEDS: VANCOMYCIN HCL 125 MG/2.5ML SOLN PO SCH (08:42)
[2022-01-13] MEDS: RASPBERRY SYRUP 5 ML UDP PO SCH (08:42)
[2022-01-13] MEDS: DOCUSATE SODIUM 100 MG CAP PO SCH (08:43)
[2022-01-13] MEDS: ESCITALOPRAM OXALATE 20 MG TAB PO SCH (08:43)
[2022-01-13] MEDS: MULTIVITAMIN TAB PO SCH (08:44)
[2022-01-13] MEDS: FERROUS GLUCONATE 324 MG TAB PO SCH (08:44)
[2022-01-13] MEDS: PANTOprazole 40 MG TAB PO SCH (08:44)
[2022-01-13] MEDS: LACTOBACILLUS ACIDOPHILUS 1 GM PACK PO SCH (09:23)
[2022-01-13] MEDS: COLLAGENASE OINT 30 GM TUBE TOP SCH (09:26)
[2022-01-13] MEDS: tiZANidine HCL 4 MG TABLET PO SCH (12:46)
[2022-01-13] MEDS: MAGNESIUM OXIDE 400 MG TAB PO SCH (12:46)
[2022-01-13] MEDS ORDERED: Nursing to Pharmacy Communication SCH (13:00)
--- NOTE | 2022-01-13 14:48 | Discharge Summary ---
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 diff, HTN, HLD, DM II, chronic anemia presented to ER with c/o lethargy for the past 3 days. History obtained from patient and patient's . Patient's reports past 3 days patient has been more lethargic and sleepy. Reports has home health assisting with patient's sacral wound. Patient with history recent hospitalization 09/2021 for severe sepsis, sacral decubitus, osteomyelitis in which he underwent incisional debridement sacral tissue down to bone and was treated with IV antibiotics. Patient's reports past 1 to 2 weeks has noted an opening to sacral area that she is concerned is a tunnel. Reports intermittent yellow drainage from area. Has been checking patient's temperature and highest was 99F. Denies nausea or vomiting. reports couple days ago noticed his right hand and arm moving very rapidly which lasted less than a minute. She reports patient was awake and coherent at the time. Denies any noted tongue biting. Patient's states she believes this was a seizure as she reports she was diagnosed with seizure disorder while at [facility] in the past with similar symptoms She states patient was on Keppra however it seemed to drop off his med list upon recurrent hospitalizations. Denies any recent falls or trauma. Reports patient home left is currently broken and patient has been unable to transfer to wheelchair. Denies diaphoresis, N/V, increased stool output in colostomy bag, SIERRA, dizziness, syncope, vision changes, neck pain, CP, SOB, orthopnea, palpitations, cough, sore throat, choking, otalgia, rhinorrhea, abdominal pain, increased extremity edema, rashes, change of color of urine output. Admission Exam Per Admitting Provider General: no distress, obese Head: normocephalic, atraumatic Eyes: PERRL, EOM's intact, conjunctiva non-injected, anicteric ENT: normal inspection external ears, nose, mucous membranes moist Neck: supple, trachea midline Lungs: clear, no respiratory distress, no wheezing/rhonchi/rales CV: RRR, no murmur, trace pretibial edema Abd: protuberant, normal BS, soft, non-tender Ext: no cyanosis, some movement of bilateral hands and arms, BLE paralysis, +intermittent spasm noted LLE, no other extremity abnormal movements noted Neuro: Sleeping upon initial exam, awakens to voice, O x 3, normal affect Skin: warm, dry; sacral wound Principal Diagnosis Sepsis: Sacral wound: Seizure disorder: Quadriplegia: Neurogenic bladder w/ suprapubic catheter History recurrent UTIs on chronic suppression medication Diabetes type 2 Nocturnal hypoxia Obstructive sleep apnea History DVT Elevated TSH Chronic anemia Hypertension Dyslipidemia Obesity Discharge Exam General- No acute distress Head- atraumatic Eyes- PERRL, EOMI, ENT- oropharynx clear Neck- supple, no JVD Lungs- clear to auscultation Heart- regular rhythm; no murmur Abdomen- normal bowel sounds, +ostomy Extremities- no calf tenderness, B/L paralysis Neuro- alert, oriented x 3; PERRL, EOMI; no facial palsy; no dysarthria Skin- warm & dry Discharge Data Allergies Allergy/AdvReac Type Severity Reaction Status Date / Time codeine Allergy Severe THROAT Verified 12/31/21 14:05 SWELLS latex Allergy Intermediate Hives Verified 12/31/21 14:05 piperacillin Allergy Intermediate Hives Verified 01/08/22 10:39 Sulfa (Sulfonamide Allergy Intermediate HIVES Verified 12/31/21 14:05 Antibiotics) tazobactam Allergy Intermediate Hives Verified 12/31/21 14:05 aztreonam Allergy Unknown unknown Verified 12/31/21 14:05 metoclopramide [From Reglan] AdvReac Intermediate lethargy Verified 12/31/21 14:05 Consultations 12/31/21 15:43 ED Decision to Admit Stat 12/31/21 16:57 Consult General Surgery Routine Consult Neurology Routine 01/01/22 11:54 Consult Infectious Diseases Routine Ordered Studies 12/31/21 13:19 CT abd pelvis IV con only Stat 12/31/21 16:57 CT head/brain wo con Urgent CT OF THE HEAD WITHOUT CONTRAST CLINICAL HISTORY: possible seizure like activity COMPARISON STUDY: Head CT June 24, 2021. CT DOSE: 884.08 mGy.cm TECHNIQUE: Helical axial images of the head were obtained without IV contrast. Automated exposure control was utilized for the study. A dose lowering technique was utilized adhering to the principles of ALARA. FINDINGS: No acute intracranial hemorrhage, midline shift or mass effect is present. Sensitivity for detection of acute hemorrhage is slightly diminished given intravascular contrast from recent enhanced CT. Hypodensity within the right matter of the left frontal lobe is unchanged. Ventricular system is normal. Basal cisterns are patent. There are no extra-axial collections. No findings to suggest acute dural sinus thrombosis or acute territorial infarct. Ossification along the posterior falx is incidentally noted. There is no calvarial fracture. IMPRESSION: No acute intracranial findings. No change in appearance of the brain. ACT 112: Negative or not required by law. Electronically signed by: Sami Jacobson M.D. 12/31/2021 5:31 PM Dictated:12/31/21 172 Transcribed: 12/31/21 172 XR chest 1V portable CLINICAL HISTORY: weakness TECHNIQUE: Single frontal radiograph of the chest was obtained. Comparison: Comparison is made to chest one view 09/05/2021 FINDINGS: Stable postsurgical changes. The cardiomediastinal silhouette is stable. The lungs are clear. No evidence of pleural effusion or pneumothorax. IMPRESSION: No acute chest disease. ACT 112: Negative or not required by law. Electronically signed by: Jorge Hernandez M.D. 12/31/2021 2:20 PM Dictated:12/31/21 1419 Transcribed: 12/31/[address] OF THE ABDOMEN AND PELVIS WITH CONTRAST CLINICAL HISTORY: sacral wound worsening COMPARISON STUDY: CT of the abdomen and pelvis September 06, 2021. TECHNIQUE: Following IV administration of 122 mL of Optiray, axial images of the abdomen and pelvis were obtained from the lung bases to the proximal femurs. Images were reviewed in the axial, sagittal, and coronal planes. IV contrast was administered without complication. Automated exposure control was utilized for the study. A dose lowering technique was utilized adhering to the principles of ALARA. CT DOSE: 2058.93 mGy.cm FINDINGS: This exam is compromised by body wall contacting the gantry with resultant artifact. Left lower chest wall reconstruction is partially imaged. No pneumatosis, free air or portal venous gas is present. There is no biliary or pancreatic ductal dilatation. Multiple hypodense foci within the liver are nonspecific but favor focal areas of fat. The spleen, adrenal glands and pancreas are unremarkable. There is moderate bilateral renal cortical thinning. Several right renal calculi measure up to 6 mm. There are no ureteral calculi. There is no hydronephrosis. Suprapubic catheter is in place. Bladder wall thickening is similar to prior exam. Prominent retroperitoneal lymph nodes are likely benign. IVC filter is in place. Major vasculature is patent. No variant descending colostomy is noted. No evidence for a bowel obstruction. A moderate amount stool is noted within the colon and rectum. Note is again made of a deep ulcer overlying the sacrum and coccyx. The abscess shown on CT of September 06, 2021 has resolved. Associated inflammation has significantly improved. A tract extending to the right ischial tuberosity is again noted. Interval bone loss is noted within the lower sacrum and upper to mid coccyx since CT of September 06, 2021. Remaining small portion of the coccyx may be exposed. An additional deep ulcer of the left inferior buttock extending to the left ischial tuberosity is again noted. This was shown on prior exam. There is no associated abscess. Sclerosis of the adjacent bone is unchanged. There is no evidence for acute osteomyelitis at this site. IMPRESSION: 1. Redemonstration of a sacral decubitus ulcer which extends to the underlying bone. Interval resolution of the abscess shown on prior CT of September 06, 2021 and significant improvement in cellulitis. Interval bone loss involving the inferior sacrum and upper to mid coccyx since prior CT. This bone loss could be due to interval osteomyelitis or resection/debridement. Small portion of remaining coccyx may be exposed. 2. Left inferior gluteal ulcer which extends to the underlying left ischial tuberosity, similar to prior CT. No evidence for acute osteomyelitis of the left ischial tuberosity. 3. Persistent bladder wall thickening which could be correlated with urinalysis. No hydronephrosis. 4. Right-sided nephrolithiasis. 5. No bowel obstruction. ACT 112: Negative or not required by law. Electronically signed by: Sami Jacobson M.D. 12/31/2021 3:21 PM Dictated:12/31/21 1500 Transcribed: 12/31/21 1515 Hospital Course (1) Sepsis: List andPatient is 61 y/o M with history of MRSA/VRE/MDR Pseudomonas, sacral decubitus wounds, osteomyelitis, sepsis s/p surgical debridement in 09/2021, c/o lethargy for the past 3 days. Reports past 1 to 2 weeks has noted an opening to sacral area that concern underlying tunnel. CT abdomen pelvis: Redemonstration of a sacral decubitus ulcer which extends to the underlying bone. Interval resolution of the abscess shown on prior CT of September 06, 2021 and significant improvement in cellulitis. Interval bone loss involving the inferior sacrum and upper to mid coccyx since prior CT. This bone loss could be due to interval osteomyelitis or resection/debridement. Small portion of remaining coccyx may be exposed. Left inferior gluteal ulcer which extends to the underlying left ischial tuberosity, similar to prior CT. No evid ence for acute osteomyelitis of the left ischial tuberosity. Received IV daptomycin, ceftazidime/avibactam in the ER Blood cultures negative Wound cx -May need WBC without any organism, culture showed gram-positive cocci Surgery on board -appreciate input and recommendation. No debridement Continue daptomycin IV abx ceftazidime/avibactam changed to Ceftolozane/Tazobactam base on previous sensitivity Surgery team called the and answered all questions White count has been improving Appreciate ID input and recommendation to continue Dapto and Avycaz for now with history of MDRO. P.o. Vanco 125 mg twice daily has been started as prophylaxis against C. difficile Preliminary wound culture is growing Enterococcus faecalis and is sensitive to ampicillin, daptomycin, penicillin, streptomycin and vancomycin Patient remained stable Discussed with the ID specialist in [place] for further recommendation regarding antibiotic Discussed in detail with the patient and the regarding side effect with penicillin in the past-used amoxicillin/ampicillin in the past for sinus infection without any issues Avycaz and daptomycin were discontinued and Unasyn started today Discussed with the ID specialist in [place] and recommended to have intravenous Unasyn for [address] line in [address] Will need outpatient CBC and CMP weekly as long as he is on intravenous antibiotic Remains stable to be discharged today (2) Sacral wound: Pressure ulcer of sacral region, stage 4 POA Please see the picture for complete viewing of the wound A lot of drainage noted today as per the wound care nurse and seems to be a sinus track in the wound Will ask surgery to reevaluate the case-appreciate surgical reevaluation and no need for any debridement The drainage is stopped No indication for surgery as per the surgeon Wound care as per the wound care nurse (3) Seizure disorder: Reported history of seizure disorder diagnosed at [facility] [place] Possible myoclonic jerk in th setting of sepsis CT head showed no acute intracranial abnormality Neuro on board - not recommend starting AED or seizure medication. If episodes become more frequent, will consider ambulatory EEG as outpatient. Continue monitor closely Seizure precautions-remains stable (4) Quadriplegia: Partial quadriplegia secondary to traumatic cervical spinal cord injury Frequent repositioning - every 2 hours More paraplegic been weakness involving the upper extremities Neurogenic bladder w/ suprapubic catheter History recurrent UTIs on chronic suppression medication Hold cefdinir, methenamine Urine culture showed yeast not Jocelyn albicans Clear urine has been draining to the Martinez DM II A1c: 7.8 in 11/2021 Hold metformin , will resume on disscharge Continue NPH insulin NovoLog sliding scale per protocol Glycemic pharmacy consult-appreciate input and recommendation Nocturnal hypoxia TORY On 2 L oxygen at bedtime. Does not use CPAP Continue oxygen at bedtime History DVT s/p IVC filter on chronic anticoagulation INR: 1.9 today Currently on Heparin IV drip Will resume Coumadin Will D/C IV heparin drip once INR above 2 INR is 1.6 today-we will continue intravenous heparin INR is 1.3 and will continue Coumadin and heparin for now We will increase the dose of Coumadin has INR is 1.2 today Will give additional 4 mg Coumadin today We will check INR tomorrow-1.4 INR is 1.5 today-we will give additional dose of Coumadin today Check INR on Wednesday as an outpatient and dose Coumadin accordingly INR is 12.1 today-INR remains low likely due to interaction with antibiotic Continue Coumadin to 10 mg once every other day with 7.5mg every other day Will need to follow up with the coag clinic Elevated TSH TSH: 12.7 Free T4 WNL Follow-up outpatient Chronic anemia Hgb: 8.1 Baseline 9-10 No signs symptoms of active bleeding Continue iron supplement Check CBC in 1 week HTN Hold Lasix, spironolactone Dyslipidemia Hold statin while on daptomycin Obesity BMI: 45 DVT Prophylaxis IV heparin discontinued since INR 2.1 today Continue Coumadin Full code Total Time Total Time Spent Total Time Spent (In Minutes): 35 minutes Discharge Plan Discharge Items Patient Disposition: Home - Home Health Services Reason For Visit: LETHARGY Discharge Diagnosis: Sepsis: Sacral wound: Seizure disorder: Quadriplegia: Neurogenic bladder w/ suprapubic catheter History recurrent UTIs on chronic suppression medication Diabetes type 2 Nocturnal hypoxia Obstructive sleep apnea History DVT Elevated TSH Chronic anemia Hypertension Dyslipidemia Obesity Activity: Resume your previous activity Non-emergency contact: Primary Care Provider Call non-emergency contact if: you have any medication questions Follow-up/Referrals: Wilder Stanford MD [Primary Care Provider] - 01/14/22 3:00 pm (Date & Time 01/14/2022 3:00 PM Provider Wilder Stanford MD Department Family Medicine [facility] ) Diet: Carb Consistent or DM2 Addtl Attending Provider Instructions: Follow up with your primary care provider Dr. Stanford on 01/14/22 @ 3PM Follow up with wound care clinic Follow up with coumadin clinic to monitor your PT/INR (Take coumadin 10mg on Wednesday/?Wednesday and 7.5 mg every other day (Wednesday/Wednesday/Wednesday and Wednesday) ) Please check PT/INR in 2-3 days ( Today INR 2.1) Continue IV antibiotic with Unasyn 300mg IV q6h for 5 more weeks Continue Vancomycin 125mg PO twice a day while on Unasyn and continue beyond 1 week after completing the course of the Unasyn Check CBC and CMP weekly while on IV antibiotic with Unasyn Check TSH in 3 to 4 weeks to monitor thyroid function Continue seizure precaution Fall precaution Lasix and Spironolactone have been on hold. Your physician will advise you when to resume them once blood pressure start elevating Continue monitor your blood pressure and bring your blood pressure log at your next follow up apointment with your provider Continue daily wound care with aquacel ag cover with 2 large optifoam Seek medical attention if your symptoms worsening Pending Studies at Discharge: No Stand-Alone Forms: My Explore.To Yellow Pages, Smoking Cessation Medications and DC Order Prescriptions: New vancomycin 125 mg capsule 125 mg PO BID 30 Days Qty: 60 RF: 0 ampicillin-sulbactam [Unasyn] 3 gram recon soln 3 g IV Q6H Qty: 1 RF: 0 Continued warfarin 5 mg tablet See Rx Instructions .ROUTE .COMPLEX RF: 0 escitalopram oxalate 20 mg tablet 20 mg PO QAM RF: 0 Novolin 70/30 U-100 Insulin 100 unit/mL (70-30) suspension 60 unit subcut BID RF: 0 allopurinol 100 mg Tablet 100 mg PO BID RF: 0 ropinirole 1 mg Tablet 1 mg PO QID RF: 0 gabapentin 800 mg Tablet 800 mg PO BID RF: 0 ferrous gluconate 324 mg (38 mg iron) Tablet 324 mg PO QAM RF: 0 multivitamin Tablet 1 tab PO QAM RF: 0 pantoprazole 40 mg Tablet,Delayed Release (Dr/Ec) 40 mg PO BID RF: 0 magnesium oxide 400 mg (241.3 mg magnesium) Tablet 400 mg PO BID RF: 0 baclofen 10 mg tablet See Rx Instructions .ROUTE .COMPLEX RF: 0 cyclobenzaprine 10 mg tablet 15 mg PO HS RF: 0 hyoscyamine sulfate 0.125 mg tablet 0.125 mg PO QPM RF: 0 tizanidine 4 mg tablet 4 mg PO BID RF: 0 potassium chloride 10 mEq tablet extended release 10 meq PO BIDM RF: 0 Medical Marijuana See Rx Instructions .ROUTE .COMPLEX RF: 0 methenamine hippurate 1 gram Tablet 1 g PO BID 30 Days Qty: 60 RF: 2 famotidine [Acid Tile Setter Supervisor (famotidine)] 20 mg Tablet 20 mg PO BID RF: 0 ascorbic acid (vitamin C) [Vitamin C] 500 mg Tablet 250 mg PO TID RF: 0 Lactobacillus acidoph-L.bulgar [Floranex] 1 million cell Tablet 1 tab PO BID RF: 0 nystatin 100,000 unit/gram Powder 1 applic TOPICAL BID PRN (Reason: Rash) RF: 0 Novolin R Regular U-100 Insuln 100 unit/mL Solution 1 sliding scale dose SUBCUT USEASDIRECTD RF: 0 acetaminophen 500 mg Capsule 1,000 mg PO Q6H PRN (Reason: Pain) RF: 0 menthol-zinc oxide [Calmoseptine] 0.44-20.6 % Ointment 1 applic TOPICAL QID PRN (Reason: Rash) RF: 0 atorvastatin 40 mg tablet 40 mg PO HS RF: 0 docusate sodium 100 mg Capsule 100 mg PO AMHS RF: 0 zolpidem 5 mg tablet 5 mg PO HS PRN (Reason: Sleep) RF: 0 Santyl 250 unit/gram ointment 1 applic TOPICAL DAILY RF: 0 water Liquid 60 ea DAILY RF: 0 coenzyme Q10 [CoQ-10] 100 mg Capsule 200 mg PO AMHS RF: 0 Adrien 7-7-1.5 gram Powder In Packet 1 ea PO BID RF: 0 metformin 1,000 mg tablet 1,000 mg PO BIDM RF: 0 Discontinued furosemide 40 mg Tablet 40 mg PO BID RF: 0 spironolactone [Aldactone] 25 mg tablet 25 mg PO QAM RF: 0 warfarin 1 mg tablet 1 mg PO [id number] RF: 0 cefdinir 300 mg Capsule 300 mg PO BID RF: 0 Discharge Orders: Discharge Order (Routine); Ordered 01/13/22 Ordered By: Edgar Frazier/Other Patient Handouts: Coumadin Oral Tablet 5 mg Admission Data Admit Date/Time: 12/31/21 16:52 Attending Provider: Edgar Lee Admit Provider: Jose Osullivan Primary Care Provider: Wilder Stanford Other Providers: Velasquez Cutler [facility] ; Jose Osullivan ; Artemio Srivastava ; Melvin Cartwright ; Luis Antonio Melchor ; Emmanuel Friedman Jr ; Arash Partida ; Hill Pena ; Ranjana Yadav ; Agusto Chaudhry ; Clifton Martinez ; Melvin Hinojosa ; Dereck Mejia ; Ellen Garcia ; Roque Mcgovern I. ; Casey Bell II ; Yeny Leary ; Amaury Jenkins ; Atremio Boyd ; Rc Juarez Other Interventions: Discharge Summary Assessment (RN) Last Done: 01/13/22 15:25
[2022-01-13 15:26] VITALS: BP 138/70; PULSE 95
== END 2022-01-13 16:10 | disposition home health service (06) | DRG 871 ==
LOC: ED 13:04 → SUATTDRO 16:52 → 2E 16:52 → 3W 01-09 18:56

== ENCOUNTER 2022-05-22 14:06 | Inpatient (IN) ==
[2022-05-22] MEDS ORDERED: SODIUM CHLORIDE 0.9% 1000ML 500 ML IV ONE ×3 (14:39→17:49)
--- NOTE | 2022-05-22 14:45 | Emergency Department Note ---
Impression & Plan Weakness, Anemia, Quadriplegia, Elevated lactic acid level ED Provider Note NAME: ANTWAN GONSALES JR AGE: 61 SEX: M : 1960 ARRIVES VIA: Ambulance INFORMANT: [Patient][ems] ED PROVIDER(S): [José Cheema MD] CHIEF COMPLAINT: Lethargic HISTORY OF PRESENT ILLNESS: The patient is a 61-year-old male with diabetes, a suprapubic Martinez catheter, chronic anticoagulation, history of sepsis and history of incomplete quadriplegia at C4. The patient presents by ambulance for some sleepiness and described lethargy. His family felt he should be checked. The patient admits to feeling sleepy. He denies any shortness of breath, cough or congestion. No fever. The patient admits to a headache earlier today but that has resolved. He states that his sacral wounds have been healing well as per the caregivers that have been dealing with this issue. The patient's and power of ip technology transactions attorney arrived, the patient did recently restart Keppra. She was wondering if the Keppra has caused his sleepiness/somnolence. REVIEW OF SYSTEMS: See HPI for pertinent positives and negatives. A total of ten systems were reviewed and were otherwise negative. PMHx/PSHx: See Below SOCIAL HISTORY: See Below. PHYSICAL EXAM: GENERAL: Patient is in no acute distress. HEENT: No acute trauma, normocephalic atraumatic, mucous membranes moist, no nasal congestion, no scleral icterus. NECK: No stridor, no adenopathy, no meningismus, trachea is midline. LUNGS: Clear to auscultation bilaterally, no wheeze, no rhonchi, breath sounds equal. HEART: Without murmurs gallops or rubs, regular rate and rhythm. ABDOMEN: Soft, nontender, bowel sounds positive, no peritonitis. Obese, colostomy noted in the left upper quadrant. EXTREMITIES: No cyanosis. The patient does have protection/padded boots on both feet and heels. NEUROLOGIC: Oriented x 3, there is limited movement of both upper extremities, no movement of his lower extremities. The patient does appear sleepy/somnolent. SKIN: No rash, no jaundice, no diaphoresis. Groin: Suprapubic catheter noted, no groin erythema. Back: As per nursing staff, the patient did have some sacral ulcers but they appeared to be healing well and, as per his , the wounds look better than they had previously. DIFFERENTIAL DIAGNOSIS: Infection, dehydration, UTI, COVID-19, liver failure, metabolic abnormality, hypo/hyperglycemia, electrolyte disturbance, anemia, hypoxia, cardiac sources, intracerebral event, toxicologic issues, stroke, TIA, as well as other pathologies. EMERGENCY DEPARTMENT COURSE/PROCEDURES: ECG: Indication was weakness. The ECG shows a normal sinus rhythm with a rate of 86. There is a right bundle branch block. There is no ST elevation, no PVCs. The QTC is 507. Continuous Cardiac Monitoring: An order was placed for continuous cardiac monitoring. The monitor shows a rate of 93 with normal sinus rhythm. Critical Care Note: I have personally spent 45 minutes of critical care time in the direct management of this patient. This includes bedside care, interpretation of diagnostic studies, and testing, discussion with consultants, patient, and family members, and other required patient management activities. This 45 minutes is in excess of all separately billable procedures. MEDICAL DECISION MAKING: There is a mild leukocytosis, this has been noted before but certainly could be consistent with infection. Patient did have a mild anemia, he has a history of anemia. There was a normal platelet count. INR was elevated at 3.9, consistent with Coumadin use. No renal failure. Lactic acid level was elevated consistent with possible sepsis/infection. No worrisome liver enzyme elevation. ECG showed a normal sinus rhythm, no ischemia. Cardiac enzyme testing x1 was not consistent with acute cardiac injury. Ammonia level was not elevated. The patient appeared to be in a euthyroid state. Urinalysis showed possible infection. Stool bio fire was completely negative. COVID test returned negative. Chest film did not show pneumonia or CHF. Brain CT showed no acute bleed or mass-effect. Patient received IV saline, 1.5 L. He was given IV cefepime and IV daptomycin. The patient presents with somnolence and sleepiness. He has behaved this way in the past with early sepsis. He has a history of sepsis. Given the circumstances, given the lactic acid elevation, I do think a hospital stay is warranted. I did speak with the patient and his , the on-call hospitalist has been consulted. Past Med/Surg History Medical History Anemia Asymptomatic bacteriuria Clostridium difficile infection (Unknown) CVA (cerebral vascular accident) DM type 2 (diabetes mellitus, type 2) Dyslipidemia Dysphagia Fever History of blood clots History of DVT (deep vein thrombosis) Hypertension Hypotension Ileus Kidney disease Leukocytosis Major depressive disorder, recurrent Morbid obesity Obesity Occluded PICC line Positive urine culture Quadriplegia BRAIN INJURY 11 YRS AGO Quadriplegia Sacral decubitus ulcer, stage IV Seizure Sepsis SIRS (systemic inflammatory response syndrome) Sleep apnea (Unknown) OXYGEN 2L/MIN NC HS Syncope 57 year old with know quadriplegia and new onset syncope with change in position UTI (urinary tract infection) RECENT [facility] ADMISION-D/C 12/06/20 Surgical History Chronic suprapubic catheter History of colonoscopy 2010 History of open reduction and internal fixation (ORIF) procedure LEFT FEMUR Insertion of inferior vena caval filter (Unknown) Lithotripsy (Unknown) "laser lithotripsy left ureteral stone 03/17/11 " S/P debridement (09/06/21) Incision and Drainage and Debridement Sacral Tissue Down to Bone, 15cm x 11cm - Agusto Chaudhry, DO 09/06/21 S/P debridement (09/08/21) Excisional Debridement of Sacral Decubitus Ulcer, [id number] Down to Bone - Agusto Chaudhry, DO 09/08/2021. Patient made ASA 4. Ketamine/versed/fentanyl sedation. Tolerated without incident. S/P debridement S/P knee surgery S/P tonsillectomy Suprapubic cystostomy (Unknown) IN PLACE Family History Mother Family history of diabetes mellitus Father Family hx of colon cancer Other No pertinent family history Social History Smoking Status: Never smoker Second Hand Exposure: No; Hx Alcohol Use: No Hx Substance Use: No Preferred Language: Slovak Communication Ability: Effective Visual Impairment: No Limitations Dredge Operator Required: No Beliefs That Will Affect Care: None marital status: Current Living Situation: Spouse Current Living Situation Comment: Lives with - has care nurse 5x/week, 29/03 caregivers current occupational status: disabled Feels Safe at Home: Yes Physical Activity Frequency Comment: QUADRAPLEGIA C4-5-ABLE TO MOVE ARMS, HANDS Assistive Devices: Hospital Bed, Mechanical Lift, Oxygen - at Night, Wheelchair and Other Allergies Allergies Allergy/AdvReac Type Severity Reaction Status Date / Time codeine Allergy Severe THROAT Verified 05/22/22 18:39 SWELLS latex Allergy Intermediate Hives Verified 05/22/22 18:39 piperacillin Allergy Intermediate Hives Verified 05/22/22 18:39 Sulfa (Sulfonamide Allergy Intermediate HIVES Verified 05/22/22 18:39 Antibiotics) tazobactam Allergy Intermediate Hives Verified 05/22/22 18:39 aztreonam Allergy Unknown unknown Verified 05/22/22 18:39 corn syrup AdvReac Severe Migraine Verified 05/22/22 18:39 metoclopramide [From Reglan] AdvReac Intermediate lethargy Verified 05/22/22 18:39 Home Meds Home Medications Medication Instructions Recorded Confirmed allopurinol 100 mg tablet 100 mg PO BID 05/07/18 05/22/22 ferrous gluconate 324 mg (38 mg 324 mg PO QAM 05/07/18 05/22/22 iron) tablet gabapentin 800 mg tablet 800 mg PO BID 05/07/18 05/22/22 magnesium oxide 400 mg (241.3 mg 400 mg PO AMHS 05/07/18 05/22/22 magnesium) tablet pantoprazole 40 mg tablet,delayed 40 mg PO BID 05/07/18 05/22/22 release ropinirole 1 mg tablet 1 mg PO QID 05/07/18 05/22/22 escitalopram oxalate 20 mg tablet 20 mg PO QAM 08/21/19 05/22/22 insulin human U-100 NPH-regulr 54 unit subcut BIDM 08/21/19 05/22/22 70-30 mix 100 unit/mL subcutaneous susp (Novolin 70/30 U-100 Insulin) warfarin 5 mg tablet 5 - 7.5 mg PO UD 08/21/19 05/22/22 baclofen 10 mg tablet See Rx Instructions .Route .COMPLEX 09/22/19 05/22/22 cyclobenzaprine 10 mg tablet 15 mg PO HS 03/01/20 05/22/22 hyoscyamine sulfate 0.125 mg tablet 0.125 mg PO QPM 03/01/20 05/22/22 potassium chloride 10 mEq 10 meq PO BIDM 03/01/20 05/22/22 tablet,extended release tizanidine 4 mg tablet 4 mg PO BID 03/01/20 05/22/22 Medical Marijuana See Rx Instructions .Route .COMPLEX 03/26/20 05/22/22 ascorbic acid (vitamin C) 500 mg 250 mg PO TID 12/03/20 05/22/22 tablet (Vitamin C) famotidine 20 mg tablet (Acid 20 mg PO BID 12/03/20 05/22/22 Property Developer (famotidine)) Lactobacillus acidoph-L.bulgaricus 1 tab PO BID 01/03/21 05/22/22 1 million cell tablet (Floranex) insulin regular human 100 unit/mL See Rx Instructions .Route .COMPLEX 01/03/21 05/22/22 injection solution (Novolin R Regular U-100 Insulin) menthol 0.44 %-zinc oxide 20.6 % 1 applic topical QID PRN Rash 01/03/21 05/22/22 topical ointment (Calmoseptine) nystatin 100,000 unit/gram topical 1 applic topical BID PRN Rash 01/03/21 05/22/22 powder metformin 1,000 mg tablet 1,000 mg PO BIDM 06/14/21 05/22/22 arginine 7 gram-glutamine 7 1 ea PO BID 12/31/21 05/22/22 gram-calcium HMB 1.5 gram oral powder pack (Adrien) atorvastatin 40 mg tablet 40 mg PO HS 12/31/21 05/22/22 docusate sodium 100 mg capsule 100 mg PO AMHS 12/31/21 05/22/22 levothyroxine 25 mcg tablet 25 mcg PO DAILYBB 02/12/22 05/22/22 cefdinir 300 mg capsule 300 mg PO BID 05/22/22 05/22/22 ketoconazole 2 % shampoo 1 applic topical 2XWK 05/22/22 05/22/22 levetiracetam 500 mg tablet 500 mg PO AMHS 05/22/22 05/22/22 multivitamin (Daily-Steve tablet) 1 tab PO DAILY 05/22/22 05/22/22 nystatin-triamcinolone 100,000 1 applic topical BID 05/22/22 05/22/22 unit/g-0.1 % topical cream spironolactone 25 mg tablet 25 mg PO QAM 05/22/22 05/22/22 tacrolimus 0.1 % topical ointment 1 applic topical BID PRN as 05/22/22 05/22/22 directed Previous Rx's Medication Instructions Recorded methenamine hippurate 1 gram tablet 1 g PO BID 30 days #60 tabs 04/02/20 Results & Data (ED) Vital Signs Vital Signs - 24 hr 05/22/22 14:22 05/22/22 17:13 05/22/22 17:30 Temperature 36.5 C Temperature Source Oral Pulse Rate 93 H 87 85 Pulse Rate from SpO2 Sensor 87 85 Respiratory Rate 16 16 16 Respiratory Effort / Characteristics Non-Labored Spontaneous Respiratory Depth Normal Respiratory Pattern Regular Blood Pressure 146/71 H 120/61 106/56 L Blood Pressure Mean 96 80 72 Pulse Oximetry 99 94 88 L Oxygen Delivery Method Room Air Oxygen Flow Rate Sepsis Recent Fever Within 48 Hours No Sepsis New/Unexplained Change in Mental Status No Sepsis Action Taken by Nursing No Action Required 05/22/22 18:00 05/22/22 18:31 05/22/22 18:31 Temperature Temperature Source Pulse Rate 84 81 Pulse Rate from SpO2 Sensor 84 86 Respiratory Rate 18 13 Respiratory Effort / Characteristics Respiratory Depth Respiratory Pattern Blood Pressure 129/98 76/64 L Blood Pressure Mean 108 68 Pulse Oximetry 97 94 Oxygen Delivery Method Nasal Cannula Oxygen Flow Rate 2 Sepsis Recent Fever Within 48 Hours Sepsis New/Unexplained Change in Mental Status Sepsis Action Taken by Nursing 05/22/22 18:51 05/22/22 18:51 05/22/22 19:00 Temperature Temperature Source Pulse Rate 87 Pulse Rate from SpO2 Sensor 88 Respiratory Rate 22 Respiratory Effort / Characteristics Respiratory Depth Respiratory Pattern Blood Pressure 122/67 102/56 L Blood Pressure Mean 85 71 Pulse Oximetry 99 Oxygen Delivery Method Oxygen Flow Rate Sepsis Recent Fever Within 48 Hours Sepsis New/Unexplained Change in Mental Status Sepsis Action Taken by Nursing 05/22/22 19:00 05/22/22 19:59 05/22/22 19:59 Temperature Temperature Source Pulse Rate 89 84 Pulse Rate from SpO2 Sensor 89 Respiratory Rate 4 L 16 Respiratory Effort / Characteristics Respiratory Depth Respiratory Pattern Blood Pressure Blood Pressure Mean Pulse Oximetry 99 96 Oxygen Delivery Method Room Air Room Air Oxygen Flow Rate Sepsis Recent Fever Within 48 Hours Sepsis New/Unexplained Change in Mental Status Sepsis Action Taken by Nursing 05/22/22 19:30 05/22/22 19:30 05/22/22 20:00 Temperature Temperature Source Pulse Rate 88 Pulse Rate from SpO2 Sensor Respiratory Rate 18 Respiratory Effort / Characteristics Respiratory Depth Respiratory Pattern Blood Pressure 101/51 L 117/67 Blood Pressure Mean 67 83 Pulse Oximetry Oxygen Delivery Method Oxygen Flow Rate Sepsis Recent Fever Within 48 Hours Sepsis New/Unexplained Change in Mental Status Sepsis Action Taken by Nursing 05/22/22 20:00 05/22/22 20:30 05/22/22 20:30 Temperature Temperature Source Pulse Rate 84 83 Pulse Rate from SpO2 Sensor 84 83 Respiratory Rate 13 12 Respiratory Effort / Characteristics Respiratory Depth Respiratory Pattern Blood Pressure 109/64 Blood Pressure Mean 79 Pulse Oximetry 96 95 Oxygen Delivery Method Oxygen Flow Rate Sepsis Recent Fever Within 48 Hours Sepsis New/Unexplained Change in Mental Status Sepsis Action Taken by Nursing 05/22/22 21:00 05/22/22 21:02 05/22/22 21:02 Temperature Temperature Source Pulse Rate 87 90 Pulse Rate from SpO2 Sensor 92 H Respiratory Rate 12 21 Respiratory Effort / Characteristics Respiratory Depth Respiratory Pattern Blood Pressure 92/79 L Blood Pressure Mean 83 Pulse Oximetry 96 Oxygen Delivery Method Oxygen Flow Rate Sepsis Recent Fever Within 48 Hours Sepsis New/Unexplained Change in Mental Status Sepsis Action Taken by Nursing 05/22/22 21:30 05/22/22 21:30 Temperature Temperature Source Pulse Rate 91 H Pulse Rate from SpO2 Sensor 91 H Respiratory Rate 13 Respiratory Effort / Characteristics Respiratory Depth Respiratory Pattern Blood Pressure 112/52 L Blood Pressure Mean 72 Pulse Oximetry 97 Oxygen Delivery Method Oxygen Flow Rate Sepsis Recent Fever Within 48 Hours Sepsis New/Unexplained Change in Mental Status Sepsis Action Taken by [facility] Medications Current Medication List: was personally reviewed by me Laboratory Data Attestation: I reviewed the patient's lab results. Result diagrams: 05/22/22 14:25 05/22/22 14:25 Lab Results 05/22/22 05/22/22 05/22/22 Range/Units 14:25 14:25 14:25 WBC 13.57 H (4.8-10.8) K/ul RBC 4.16 L (4.63-6.08) M/uL Hgb 11.2 L (14.0-18.0) g/dl Hct 36.8 L (40.1-51.0) % MCV 88.5 (80.0-100.0) fL MCH 26.9 (25.0-34.0) pg MCHC 30.4 L (32.0-36.0) g/dL RDW Std Deviation 61.1 H (36.4-46.3) fL RDW Coeff of Yoseph 18.9 H (11.5-14.5) % Plt Count 244 (130-400) K/uL MPV 9.7 (9.4-12.4) fL Immature Gran % (Auto) 0.6 % Neut % (Auto) 73.8 % Lymph % (Auto) 15.3 % Bucks % (Auto) 5.1 % Eos % (Auto) 4.6 % Baso % (Auto) 0.6 % Neut # (Auto) 10.02 H (1.4-6.5) K/uL Lymph # (Auto) 2.07 (1.2-3.4) K/uL Bucks # (Auto) 0.69 (0.24-0.82) K/uL Eos # (Auto) 0.63 H (0-0.50) K/uL Baso # (Auto) 0.08 (0-0.2) K/uL Immature Gran # (Auto) 0.08 H (0.00-0.02) K/uL ESR (0-20) mm/hr PT 38.3 H (9.0-12.0) Seconds INR 3.9 H (0.9-1.1) APTT 67.1 H* (21.0-31.0) Seconds PTT Ratio 2.4 Sodium 136 (136-145) mmol/L Potassium 3.9 (3.5-5.1) mmol/L Chloride 96 L (98-107) mmol/L Carbon Dioxide 33 H (21-32) mmol/L Anion Gap 7 (3-11) BUN 34 H (6-23) mg/dl Creatinine 1.25 (0.6-1.4) mg/dl Est Cr Clr Drug Dosing 91.3 ml/min Est GFR ( Amer) 71.1 ml/min Est GFR (Non-Af Amer) 61.3 ml/min BUN/Creatinine Ratio 27.2 H (10-20) Glucose 212 H (70-99(Fasting)) mg/dl Lactate (0.4-2.0) mmol/L Calcium 9.2 (8.5-10.1) mg/dl Magnesium 1.8 (1.7-2.4) mg/dl Total Bilirubin 0.3 (0.2-1.0) mg/dl AST 14 (13-39) U/L ALT 13 (7-52) U/L Alkaline Phosphatase 49 (34-104) U/L Ammonia (18-72) umol/L Troponin I High Sens 8.0 (0-20) pg/ml Total Protein 7.6 (6.0-8.3) gm/dl Albumin 3.6 (3.4-5.0) gm/dl Globulin 4.0 (2.5-4.0) gm/dl Albumin/Globulin Ratio 0.9 (0.9-2) TSH (0.300-4.500) uIu/ml Urine Color Urine Appearance (Clear) Urine pH (4.5-7.5) Ur Specific [place] (1.000-1.030) Urine Protein (Negative) Urine Glucose (UA) (Negative) Urine Ketones (Negative) Urine Blood (Negative) Urine Nitrite (Negative) Urine Bilirubin (Negative) Urine Urobilinogen (Negative) Ur Leukocyte Esterase (Negative) Urine WBC (Auto) (0-5) /hpf Urine RBC (Auto) (0-4) /hpf U Hyaline Cast (Auto) (0-5) /lpf U Epithel Cells (Auto) (0-5) /lpf Urine Bacteria (Auto) (Negative) Urine Yeast (None Prsent) Stl C. cayetanensis PCR (NotDetected) Stool Rotavirus A PCR (NotDetected) Stl Adenov F 40/41 PCR (NotDetected) Stool Astrovirus (PCR) (NotDetected) Stool Campylobacter PCR (NotDetected) Stl C. diff Tox A/B PCR (NotDetected) Stool Cryptosporidium PCR (NotDetected) Stl E.coli Shiga Tox PCR (NotDetected) Stl Enterotoxigenic E PCR (NotDetected) Stool EPEC (PCR) (NotDetected) Stool EAEC (PCR) (NotDetected) Stl E. histolytica PCR (NotDetected) Stool Giardia Lamblia PCR (NotDetected) Stool Salmonella PCR (NotDetected) Stool Sapovirus (PCR) (NotDetected) Stl P. shigelloides PCR (NotDetected) Stl Shigella/EIEC PCR (NotDetected) St Y.enterocolitica PCR (NotDetected) Stool Vibrio (PCR) (NotDetected) Stl Vibrio cholerae PCR (NotDetected) Stl Norovirus GI/GII PCR (NotDetected) SARS-CoV-2 (PCR) (Negative) 05/22/22 05/22/22 05/22/22 Range/Units 14:25 14:25 15:36 WBC (4.8-10.8) K/ul RBC (4.63-6.08) M/uL Hgb (14.0-18.0) g/dl Hct (40.1-51.0) % MCV (80.0-100.0) fL MCH (25.0-34.0) pg MCHC (32.0-36.0) g/dL RDW Std Deviation (36.4-46.3) fL RDW Coeff of Yoseph (11.5-14.5) % Plt Count (130-400) K/uL MPV (9.4-12.4) fL Immature Gran % (Auto) % Neut % (Auto) % Lymph % (Auto) % Bucks % (Auto) % Eos % (Auto) % Baso % (Auto) % Neut # (Auto) (1.4-6.5) K/uL Lymph # (Auto) (1.2-3.4) K/uL Bucks # (Auto) (0.24-0.82) K/uL Eos # (Auto) (0-0.50) K/uL Baso # (Auto) (0-0.2) K/uL Immature Gran # (Auto) (0.00-0.02) K/uL ESR 125 H (0-20) mm/hr PT (9.0-12.0) Seconds INR (0.9-1.1) APTT (21.0-31.0) Seconds PTT Ratio Sodium (136-145) mmol/L Potassium (3.5-5.1) mmol/L Chloride (98-107) mmol/L Carbon Dioxide (21-32) mmol/L Anion Gap (3-11) BUN (6-23) mg/dl Creatinine (0.6-1.4) mg/dl Est Cr Clr Drug Dosing ml/min Est GFR ( Amer) ml/min Est GFR (Non-Af Amer) ml/min BUN/Creatinine Ratio (10-20) Glucose (70-99(Fasting)) mg/dl Lactate 2.1 H* (0.4-2.0) mmol/L Calcium (8.5-10.1) mg/dl Magnesium (1.7-2.4) mg/dl Total Bilirubin (0.2-1.0) mg/dl AST (13-39) U/L ALT (7-52) U/L Alkaline Phosphatase (34-104) U/L Ammonia (18-72) umol/L Troponin I High Sens (0-20) pg/ml Total Protein (6.0-8.3) gm/dl Albumin (3.4-5.0) gm/dl Globulin (2.5-4.0) gm/dl Albumin/Globulin Ratio (0.9-2) TSH 2.321 (0.300-4.500) uIu/ml Urine Color Urine Appearance (Clear) Urine pH (4.5-7.5) Ur Specific [place] (1.000-1.030) Urine Protein (Negative) Urine Glucose (UA) (Negative) Urine Ketones (Negative) Urine Blood (Negative) Urine Nitrite (Negative) Urine Bilirubin (Negative) Urine Urobilinogen (Negative) Ur Leukocyte Esterase (Negative) Urine WBC (Auto) (0-5) /hpf Urine RBC (Auto) (0-4) /hpf U Hyaline Cast (Auto) (0-5) /lpf U Epithel Cells (Auto) (0-5) /lpf Urine Bacteria (Auto) (Negative) Urine Yeast (None Prsent) Stl C. cayetanensis PCR (NotDetected) Stool Rotavirus A PCR (NotDetected) Stl Adenov F 40/41 PCR (NotDetected) Stool Astrovirus (PCR) (NotDetected) Stool Campylobacter PCR (NotDetected) Stl C. diff Tox A/B PCR (NotDetected) Stool Cryptosporidium PCR (NotDetected) Stl E.coli Shiga Tox PCR (NotDetected) Stl Enterotoxigenic E PCR (NotDetected) Stool EPEC (PCR) (NotDetected) Stool EAEC (PCR) (NotDetected) Stl E. histolytica PCR (NotDetected) Stool Giardia Lamblia PCR (NotDetected) Stool Salmonella PCR (NotDetected) Stool Sapovirus (PCR) (NotDetected) Stl P. shigelloides PCR (NotDetected) Stl Shigella/EIEC PCR (NotDetected) St Y.enterocolitica PCR (NotDetected) Stool Vibrio (PCR) (NotDetected) Stl Vibrio cholerae PCR (NotDetected) Stl Norovirus GI/GII PCR (NotDetected) SARS-CoV-2 (PCR) (Negative) 05/22/22 05/22/22 05/22/22 Range/Units 15:36 17:00 17:23 WBC (4.8-10.8) K/ul RBC (4.63-6.08) M/uL Hgb (14.0-18.0) g/dl Hct (40.1-51.0) % MCV (80.0-100.0) fL MCH (25.0-34.0) pg MCHC (32.0-36.0) g/dL RDW Std Deviation (36.4-46.3) fL RDW Coeff of Yoseph (11.5-14.5) % Plt Count (130-400) K/uL MPV (9.4-12.4) fL Immature Gran % (Auto) % Neut % (Auto) % Lymph % (Auto) % Bucks % (Auto) % Eos % (Auto) % Baso % (Auto) % Neut # (Auto) (1.4-6.5) K/uL Lymph # (Auto) (1.2-3.4) K/uL Bucks # (Auto) (0.24-0.82) K/uL Eos # (Auto) (0-0.50) K/uL Baso # (Auto) (0-0.2) K/uL Immature Gran # (Auto) (0.00-0.02) K/uL ESR (0-20) mm/hr PT (9.0-12.0) Seconds INR (0.9-1.1) APTT (21.0-31.0) Seconds PTT Ratio Sodium (136-145) mmol/L Potassium (3.5-5.1) mmol/L Chloride (98-107) mmol/L Carbon Dioxide (21-32) mmol/L Anion Gap (3-11) BUN (6-23) mg/dl Creatinine (0.6-1.4) mg/dl Est Cr Clr Drug Dosing ml/min Est GFR ( Amer) ml/min Est GFR (Non-Af Amer) ml/min BUN/Creatinine Ratio (10-20) Glucose (70-99(Fasting)) mg/dl Lactate 2.2 H* (0.4-2.0) mmol/L Calcium (8.5-10.1) mg/dl Magnesium (1.7-2.4) mg/dl Total Bilirubin (0.2-1.0) mg/dl AST (13-39) U/L ALT (7-52) U/L Alkaline Phosphatase (34-104) U/L Ammonia 28.0 (18-72) umol/L Troponin I High Sens (0-20) pg/ml Total Protein (6.0-8.3) gm/dl Albumin (3.4-5.0) gm/dl Globulin (2.5-4.0) gm/dl Albumin/Globulin Ratio (0.9-2) TSH (0.300-4.500) uIu/ml Urine Color Urine Appearance (Clear) Urine pH (4.5-7.5) Ur Specific [place] (1.000-1.030) Urine Protein (Negative) Urine Glucose (UA) (Negative) Urine Ketones (Negative) Urine Blood (Negative) Urine Nitrite (Negative) Urine Bilirubin (Negative) Urine Urobilinogen (Negative) Ur Leukocyte Esterase (Negative) Urine WBC (Auto) (0-5) /hpf Urine RBC (Auto) (0-4) /hpf U Hyaline Cast (Auto) (0-5) /lpf U Epithel Cells (Auto) (0-5) /lpf Urine Bacteria (Auto) (Negative) Urine Yeast (None Prsent) Stl C. cayetanensis PCR (NotDetected) Stool Rotavirus A PCR (NotDetected) Stl Adenov F 40/41 PCR (NotDetected) Stool Astrovirus (PCR) (NotDetected) Stool Campylobacter PCR (NotDetected) Stl C. diff Tox A/B PCR (NotDetected) Stool Cryptosporidium PCR (NotDetected) Stl E.coli Shiga Tox PCR (NotDetected) Stl Enterotoxigenic E PCR (NotDetected) Stool EPEC (PCR) (NotDetected) Stool EAEC (PCR) (NotDetected) Stl E. histolytica PCR (NotDetected) Stool Giardia Lamblia PCR (NotDetected) Stool Salmonella PCR (NotDetected) Stool Sapovirus (PCR) (NotDetected) Stl P. shigelloides PCR (NotDetected) Stl Shigella/EIEC PCR (NotDetected) St Y.enterocolitica PCR (NotDetected) Stool Vibrio (PCR) (NotDetected) Stl Vibrio cholerae PCR (NotDetected) Stl Norovirus GI/GII PCR (NotDetected) SARS-CoV-2 (PCR) NEGATIVE (Negative) 05/22/22 05/22/22 Range/Units 18:20 18:20 WBC (4.8-10.8) K/ul RBC (4.63-6.08) M/uL Hgb (14.0-18.0) g/dl Hct (40.1-51.0) % MCV (80.0-100.0) fL MCH (25.0-34.0) pg MCHC (32.0-36.0) g/dL RDW Std Deviation (36.4-46.3) fL RDW Coeff of Yoseph (11.5-14.5) % Plt Count (130-400) K/uL MPV (9.4-12.4) fL Immature Gran % (Auto) % Neut % (Auto) % Lymph % (Auto) % Bucks % (Auto) % Eos % (Auto) % Baso % (Auto) % Neut # (Auto) (1.4-6.5) K/uL Lymph # (Auto) (1.2-3.4) K/uL Bucks # (Auto) (0.24-0.82) K/uL Eos # (Auto) (0-0.50) K/uL Baso # (Auto) (0-0.2) K/uL Immature Gran # (Auto) (0.00-0.02) K/uL ESR (0-20) mm/hr PT (9.0-12.0) Seconds INR (0.9-1.1) APTT (21.0-31.0) Seconds PTT Ratio Sodium (136-145) mmol/L Potassium (3.5-5.1) mmol/L Chloride (98-107) mmol/L Carbon Dioxide (21-32) mmol/L Anion Gap (3-11) BUN (6-23) mg/dl Creatinine (0.6-1.4) mg/dl Est Cr Clr Drug Dosing ml/min Est GFR ( Amer) ml/min Est GFR (Non-Af Amer) ml/min BUN/Creatinine Ratio (10-20) Glucose (70-99(Fasting)) mg/dl Lactate (0.4-2.0) mmol/L Calcium (8.5-10.1) mg/dl Magnesium (1.7-2.4) mg/dl Total Bilirubin (0.2-1.0) mg/dl AST (13-39) U/L ALT (7-52) U/L Alkaline Phosphatase (34-104) U/L Ammonia (18-72) umol/L Troponin I High Sens (0-20) pg/ml Total Protein (6.0-8.3) gm/dl Albumin (3.4-5.0) gm/dl Globulin (2.5-4.0) gm/dl Albumin/Globulin Ratio (0.9-2) TSH (0.300-4.500) uIu/ml Urine Color Yellow Urine Appearance Cloudy A (Clear) Urine pH 5.0 (4.5-7.5) Ur Specific [place] 1.017 (1.000-1.030) Urine Protein Trace H (Negative) Urine Glucose (UA) Negative (Negative) Urine Ketones Negative (Negative) Urine Blood 3+ H (Negative) Urine Nitrite Negative (Negative) Urine Bilirubin Negative (Negative) Urine Urobilinogen Negative (Negative) Ur Leukocyte Esterase 3+ H (Negative) Urine WBC (Auto) >30 H (0-5) /hpf Urine RBC (Auto) >30 H (0-4) /hpf U Hyaline Cast (Auto) 1-5 (0-5) /lpf U Epithel Cells (Auto) >30 H (0-5) /lpf Urine Bacteria (Auto) Negative (Negative) Urine Yeast Present A (None Prsent) Stl C. cayetanensis PCR Not Detected (NotDetected) Stool Rotavirus A PCR Not Detected (NotDetected) Stl Adenov F 40/41 PCR Not Detected (NotDetected) Stool Astrovirus (PCR) Not Detected (NotDetected) Stool Campylobacter PCR Not Detected (NotDetected) Stl C. diff Tox A/B PCR Not Detected (NotDetected) Stool Cryptosporidium PCR Not Detected (NotDetected) Stl E.coli Shiga Tox PCR Not Detected (NotDetected) Stl Enterotoxigenic E PCR Not Detected (NotDetected) Stool EPEC (PCR) Not Detected (NotDetected) Stool EAEC (PCR) Not Detected (NotDetected) Stl E. histolytica PCR Not Detected (NotDetected) Stool Giardia Lamblia PCR Not Detected (NotDetected) Stool Salmonella PCR Not Detected (NotDetected) Stool Sapovirus (PCR) Not Detected (NotDetected) Stl P. shigelloides PCR Not Detected (NotDetected) Stl Shigella/EIEC PCR Not Detected (NotDetected) St Y.enterocolitica PCR Not Detected (NotDetected) Stool Vibrio (PCR) Not Detected (NotDetected) Stl Vibrio cholerae PCR Not Detected (NotDetected) Stl Norovirus GI/GII PCR Not Detected (NotDetected) SARS-CoV-2 (PCR) (Negative) Administered Medications Discontinued Medications Sodium Chloride (Nss 1000ml) 500 mls @ 999 mls/hr IV .Q31M ONE Stop: 05/22/22 15:09 Last Infusion: 05/22/22 17:20 Dose: 0 mls/hr Documented By: Admin: 05/22/22 15:05 Dose: 999 mls/hr Documented By: DANIELA Sodium Chloride (Nss 1000ml) 500 mls @ 999 mls/hr IV .Q31M ONE Stop: 05/22/22 16:29 Last Infusion: 05/22/22 18:20 Dose: 0 mls/hr Documented By: Admin: 05/22/22 17:20 Dose: 999 mls/hr Documented By: NINI Sodium Chloride (Nss 1000ml) 500 mls @ 999 mls/hr IV .Q31M ONE Stop: 05/22/22 18:19 Last Infusion: 05/22/22 18:58 Dose: 0 mls/hr Documented By: Admin: 05/22/22 18:20 Dose: 999 mls/hr Documented By: NINI Cefepime HCl (Maxipime) 2,000 mg in 20 mls @ 5 mls/min IV NOW STA; Protocol Stop: 05/22/22 18:05 Last Admin: 05/22/22 18:20 Dose: 5 mls/min Documented By: NINI Daptomycin 625 mg/ Syringe 12.5 mls @ 6.25 mls/min IV NOW STA; Protocol Stop: 05/22/22 18:03 Last Admin: 05/22/22 21:58 Dose: 6.25 mls/min Documented By: EUSEBIO Imaging Data Radiologist's Impression: Chest X-Ray 05/22/22 14:39 XR chest 1V portable HISTORY: 61 years-old Male weakness acute weakness COMPARISON: Chest radiograph 12/31/2021 TECHNIQUE: AP view of the chest FINDINGS: Cardiac silhouette is enlarged. No pneumothorax, large pleural effusion or overt pulmonary edema. Degenerative changes of the shoulders and spine. Numerous fractured wires project over the left hemithorax. Prior partial resection of the left ninth rib. IMPRESSION: No acute process. ACT 112: Negative or not required by law. The above report was generated using voice recognition software. It may contain grammatical, syntax or spelling errors. Electronically signed by: Rey Pimentel M.D. 05/22/2022 3:[address] 05/22/22 14:39 CT head/brain wo con CLINICAL HISTORY: 61 years-old Male with confusion. Acutely altered mental status TECHNIQUE: Multiple axial CT images of the head were obtained without contrast. A dose lowering technique was utilized adhering to the principles of ALARA. CT DOSE: 821.00 mGycm COMPARISON: 12/31/2021 FINDINGS: No acute intracranial hemorrhage, midline shift, intracranial mass, hydrocephalus, territorial ischemia or abnormal extra-axial collection. Motion degraded exam. Involutional changes. Mild white matter hypodensities suggestive of probable chronic microvascular ischemic disease. Unchanged calcification involving the posterior aspect of the falx cerebri. Chronic encephalomalacia of the left frontal lobe. The calvarium is intact. Prior bilateral lens repair. The paranasal sinuses, mastoid air cells, and middle ear cavities are clear. IMPRESSION: No acute intracranial abnormality identified. ACT 112: Negative or not required by law. The above report was generated using voice recognition software. It may contain grammatical, syntax or spelling errors. Electronically signed by: Rey Pimentel M.D. 05/22/2022 4:28 PM Discharge Plan Visit Data Chief Complaint: Lethargic Stated Complaint: lethargic ED Provider: José Cheema Discharge Problem: Weakness, Anemia, Quadriplegia, Elevated lactic acid level Patient Disposition: Admitted As Inpatient Condition: Fair Forms Stand Alone Forms: My [facility] Prescriptions Prescriptions: No Action warfarin 5 mg tablet 5 - 7.5 mg PO UD Rx Instructions: 5mg orally in the evening of MON/WED/FRI 7.5 mg orall in the evening of ,,WED,SUN escitalopram oxalate 20 mg tablet 20 mg PO QAM Novolin 70/30 U-100 Insulin 100 unit/mL (70-30) suspension 54 unit subcut BIDM allopurinol 100 mg Tablet 100 mg PO BID Rx Instructions: TAKES AT 0600 & 1800 ropinirole 1 mg Tablet 1 mg PO QID Rx Instructions: TAKES AT 0600, 1200, 1800, 2400 gabapentin 800 mg Tablet 800 mg PO BID Rx Instructions: TAKES AT 0600 & 1800 ferrous gluconate 324 mg (38 mg iron) Tablet 324 mg PO QAM pantoprazole 40 mg Tablet,Delayed Release (Dr/Ec) 40 mg PO BID magnesium oxide 400 mg (241.3 mg magnesium) Tablet 400 mg PO AMHS Rx Instructions: TAKES AT 1200 & 2400 baclofen 10 mg tablet See Rx Instructions .ROUTE .COMPLEX Rx Instructions: 10 mg orally; TAKES 5 MG TID, THEN 20 MG AT HS. cyclobenzaprine 10 mg tablet 15 mg PO HS Rx Instructions: TAKE 1 &1/2 TABS AT 2400 hyoscyamine sulfate 0.125 mg tablet 0.125 mg PO QPM tizanidine 4 mg tablet 4 mg PO BID Rx Instructions: TAKES AT 1200 & 2400 potassium chloride 10 mEq tablet extended release 10 meq PO BIDM Rx Instructions: take with breakfast and dinner Medical Marijuana See Rx Instructions .ROUTE .COMPLEX Rx Instructions: 7 drops in AM, 10 drops in PM methenamine hippurate 1 gram Tablet 1 g PO BID 30 Days Qty: 60 2RF Rx Instructions: TAKES AT 1200 & 2400 famotidine [Acid Property Developer (famotidine)] 20 mg Tablet 20 mg PO BID ascorbic acid (vitamin C) [Vitamin C] 500 mg Tablet 250 mg PO TID Rx Instructions: TAKES AT 0600, 1200 & 1800 Lactobacillus acidoph-L.bulgar [Floranex] 1 million cell Tablet 1 tab PO BID nystatin 100,000 unit/gram Powder 1 applic TOPICAL BID PRN (Reason: Rash) Novolin R Regular U-100 Insuln 100 unit/mL Solution See Rx Instructions .ROUTE .COMPLEX Rx Instructions: follow SSI ;TAKES 4 UNITS BEFORE MEALS IF NEEDED. menthol-zinc oxide [Calmoseptine] 0.44-20.6 % Ointment 1 applic TOPICAL QID PRN (Reason: Rash) atorvastatin 40 mg tablet 40 mg PO HS docusate sodium 100 mg Capsule 100 mg PO AMHS Adrien 7-7-1.5 gram Powder In Packet 1 ea PO BID metformin 1,000 mg tablet 1,000 mg PO BIDM levothyroxine 25 mcg tablet 25 mcg PO DAILYBB levetiracetam 500 mg tablet 500 mg PO AMHS ketoconazole 2 % shampoo 1 applic TOPICAL 2XWK Rx Instructions: wash scalp spironolactone 25 mg Tablet 25 mg PO QAM nystatin-triamcinolone 100,000-0.1 unit/g-% cream 1 applic TOPICAL BID Rx Instructions: apply to affected area cefdinir 300 mg Capsule 300 mg PO BID multivitamin [Daily-Steve] Tablet 1 tab PO DAILY tacrolimus 0.1 % Ointment 1 applic TOPICAL BID PRN (Reason: as directed) Rx Instructions: apply to face,ears and scalp as needed Referrals Referrals: Wilder Stanford MD [Primary Care Provider] -
[2022-05-22 14:55] LABS: Basophils # (auto) 0.08 K/uL (0-0.2); Basophils % (auto) 0.6 %; Eosinophils # (auto) 0.63 K/uL (0-0.50); Eosinophils % (auto) 4.6 %; Hematocrit (blood only) 36.8 % (40.1-51.0); Hemoglobin 11.2 g/dl (14.0-18.0); Immature Granulocytes # (auto) 0.08 K/uL (0.00-0.02); Immature Granulocytes % (auto) 0.6 %; Lymphocytes # (auto) 2.07 K/uL (1.2-3.4); Lymphocytes % (auto) 15.3 %; Mean Corpuscular Hemoglobin 26.9 pg (25.0-34.0); Mean Corpuscular Hgb Conc 30.4 g/dL (32.0-36.0); Mean Corpuscular Volume 88.5 fL (80.0-100.0); Mean Platelet Volume 9.7 fL (9.4-12.4); Monocytes # (auto) 0.69 K/uL (0.24-0.82); Monocytes % (auto) 5.1 %; Neutrophils # (auto) 10.02 K/uL (1.4-6.5); Neutrophils % (auto) 73.8 %; Platelet Count 244 K/uL (130-400); RDW Coefficient of Variation 18.9 % (11.5-14.5); RDW Standard Deviation 61.1 fL (36.4-46.3); Red Blood Count 4.16 M/uL (4.63-6.08); White Blood Count 13.57 K/ul (4.8-10.8)
--- NOTE | 2022-05-22 15:01 | XRay Report ---
XR chest 1V portable HISTORY: 61 years-old Male weakness acute weakness COMPARISON: Chest radiograph 12/31/2021 TECHNIQUE: AP view of the chest FINDINGS: Cardiac silhouette is enlarged. No pneumothorax, large pleural effusion or overt pulmonary edema. Deg enerative changes of the shoulders and spine. Numerous fractured wires project over the left hemithor ax. Prior partial resection of the left ninth rib. IMPRESSION: No acute process. ACT 112: Negative or not required by law. The above report was generated using voice recognition software. It may contain grammatical, syntax o r spelling errors. Electronically signed by: Rey Pimentel M.D. 05/22/2022 3:00 PM
[2022-05-22 15:23] LABS: INR 3.9 (0.9-1.1); Partial Thromboplastin Ratio 2.4; Prothrombin Time 38.3 Seconds (9.0-12.0)
[2022-05-22 15:29] LABS: Albumin Globulin Ratio 0.9 (0.9-2); Albumin Level 3.6 gm/dl (3.4-5.0); BUN Creatinine Ratio 27.2 (10-20); Bilirubin,Total 0.3 mg/dl (0.2-1.0); Calcium 9.2 mg/dl (8.5-10.1); Creatinine Clr Calc Pharmacy 91.3 ml/min; Est GFR (African American) 71.1 ml/min; Est GFR (Non-African American) 61.3 ml/min; Magnesium 1.8 mg/dl (1.7-2.4); Potassium 3.9 mmol/L (3.5-5.1); Total Protein 7.6 gm/dl (6.0-8.3)
[2022-05-22 15:34] LABS: Partial Thromboplastin Time 67.1 Seconds (21.0-31.0)
--- NOTE | 2022-05-22 16:29 | CT Scan Report ---
CT head/brain wo con CLINICAL HISTORY: 61 years-old Male with confusion. Acutely altered mental status TECHNIQUE: Multiple axial CT images of the head were obtained without contrast. A dose lowering tech nique was utilized adhering to the principles of ALARA. CT DOSE: 821.00 mGycm COMPARISON: 12/31/2021 FINDINGS: No acute intracranial hemorrhage, midline shift, intracranial mass, hydrocephalus, territorial ischem ia or abnormal extra-axial collection. Motion degraded exam. Involutional changes. Mild white matter hypodensities suggestive of probable chronic microvascular ischemic disease. Unchanged calcification involving the posterior aspect of the falx cerebri. Chronic encephalomalacia of the left frontal lobe . The calvarium is intact. Prior bilateral lens repair. The paranasal sinuses, mastoid air cells, and m iddle ear cavities are clear. IMPRESSION: No acute intracranial abnormality identified. ACT 112: Negative or not required by law. The above report was generated using voice recognition software. It may contain grammatical, syntax o r spelling errors. Electronically signed by: Rey Pimentel M.D. 05/22/2022 4:28 PM
[2022-05-22] MEDS ORDERED: DAPTOmycin 625 MG in SYRINGE 0 ML IV STA (18:02)
[2022-05-22] MEDS ORDERED: CEFEPIME 2,000 MG/20 ML VIAL IV STA (18:02)
[2022-05-22 18:57] LABS: Bacteria Urine Automated Negative (Negative); Bilirubin Urine Negative (Negative); Blood Urine 3+ (Negative); Color Urine Yellow; Epithelial Cell Urine Auto >30 /lpf (0-5); Glucose Urine UA Negative (Negative); Ketones Urine Negative (Negative); Leukocyte Esterase Urine 3+ (Negative); Nitrite Urine Negative (Negative); Protein Urine Trace (Negative); RBC Urine Automated >30 /hpf (0-4); Specific Gravity Urine 1.017 (1.000-1.030); Urobilinogen Urine Negative (Negative); WBC Urine Automated >30 /hpf (0-5)
[2022-05-22 19:02] LABS: Appearance Urine Cloudy (Clear)
[2022-05-22 20:15] LABS: Adenovirus F 40/41 PCR Not Detected (NotDetected); Astrovirus PCR Not Detected (NotDetected); Campylobacter PCR Not Detected (NotDetected); Clostridium diff Toxin A/B PCR Not Detected (NotDetected); Cryptosporidium PCR Not Detected (NotDetected); Cyclospora cayetanensis PCR Not Detected (NotDetected); Entamoeba histolytica PCR Not Detected (NotDetected); Enteroaggregative E.coli(EAEC) Not Detected (NotDetected); Enteropathogenic E.coli (EPEC) Not Detected (NotDetected); Enterotoxigenic E.coli (ETEC) Not Detected (NotDetected); Giardia lamblia PCR Not Detected (NotDetected); Norovirus GI/GII PCR Not Detected (NotDetected); Plesiomonas shigelloides PCR Not Detected (NotDetected); Rotavirus A PCR Not Detected (NotDetected); Salmonella PCR Not Detected (NotDetected); Sapovirus PCR Not Detected (NotDetected); Shiga-like Toxin E.coli (STEC) Not Detected (NotDetected); Shigella/Enteroinvasive E.coli Not Detected (NotDetected); Vibrio cholerae PCR Not Detected (NotDetected); Vibrio species PCR Not Detected (NotDetected); Yersinia enterocolitica PCR Not Detected (NotDetected)
--- NOTE | 2022-05-22 20:52 | History & Physical Report ---
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 diff, HTN, HLD, DM II, chronic anemia presented to ER with c/o lethargy today and concern by patient's as when previously lethargic has been septic. In ER patient afebrile, Vitals stable. WBC: 13. (previous 13 in 01/25), Lactate: 2.1, 2.2 Patient alert and oriented x3 Meets SIRS criteria Chest x-ray: No acute changes CT head: No acute intracranial abnormality Stool culture negative In ER given 1500 mL NSS, daptomycin, cefepime Blood cultures pending, urine culture pending CRP, ESR, procalcitonin pending Trend lactate Continue daptomycin, cefepime Wound culture pending Wound nurse consult CBC, BMP in a.m. May need to consider CT abdomen pelvis to further assess sacral wound if CRP, ESR elevated or no improvement Seizure disorder: Seizure precautions Continue Keppra. 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 Does not use CPAP Continue oxygen at bedtime History DVT s/p IVC filter on chronic anticoagulation INR: 3.9 Hold Coumadin INR in a.m. Chronic anemia Hgb: 11 Baseline 9-10. History IV iron in past No signs symptoms of active bleeding Continue iron supplement. HTN Continue Lasix, spironolactone Dyslipidemia Hold statin while on daptomycin Obesity BMI: 46 DVT Prophylaxis On warfarin, INR supratherapeutic Full code as per discussion with pt Follows with Dr Stanford for routine care Pt was seen and care coordinated with Dr Jesus. 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 diff, HTN, HLD, DM II, chronic anemia presented to ER with c/o lethargy today. Patient's reported that patient more lethargic today and seemed a little confused and was concerned because patient has presented similarly in the past when he was septic. Currently patient is alert and oriented and denies any complaints. He has ongoing sacral wound that he has been following with [facility] for and patient reports improvement. He states is going to wound clinic every 2 weeks now and his is dressing at home with Aquacel every 2 days. Denies any known fever, chills. Denies any purulent discharge from wound. Patient reports eating and drinking well. Denies nausea, vomiting. States 1 week ago had looser stool noted in ostomy bag which has returned to normal consistency. Reports suprapubic catheter draining clear yellow urine. Denies known fever/chills, diaphoresis, N/V, melena, hematochezia, hematuria, SIERRA, dizziness, syncope, vision changes, neck pain, CP, SOB, orthopnea, palpitations, cough, sore throat, choking, otalgia, rhinorrhea, abdominal pain, increased extremity edema, new rashes. Allergies Allergy/AdvReac Type Severity Reaction Status Date / Time codeine Allergy Severe THROAT Verified 05/22/22 18:39 SWELLS latex Allergy Intermediate Hives Verified 05/22/22 18:39 piperacillin Allergy Intermediate Hives Verified 05/22/22 18:39 Sulfa (Sulfonamide Allergy Intermediate HIVES Verified 05/22/22 18:39 Antibiotics) tazobactam Allergy Intermediate Hives Verified 05/22/22 18:39 aztreonam Allergy Unknown unknown Verified 05/22/22 18:39 corn syrup AdvReac Severe Migraine Verified 05/22/22 18:39 metoclopramide [From Reglan] AdvReac Intermediate lethargy Verified 05/22/22 18:39 Home Medications Medication Instructions Recorded Confirmed Type allopurinol 100 mg tablet 100 mg PO BID 05/07/18 05/22/22 History ferrous gluconate 324 mg (38 mg 324 mg PO QAM 05/07/18 05/22/22 History iron) tablet gabapentin 800 mg tablet 800 mg PO BID 05/07/18 05/22/22 History magnesium oxide 400 mg (241.3 mg 400 mg PO AMHS 05/07/18 05/22/22 History magnesium) tablet pantoprazole 40 mg tablet,delayed 40 mg PO BID 05/07/18 05/22/22 History release ropinirole 1 mg tablet 1 mg PO QID 05/07/18 05/22/22 History escitalopram oxalate 20 mg tablet 20 mg PO QAM 08/21/19 05/22/22 History insulin human U-100 NPH-regulr 54 unit subcut BIDM 08/21/19 05/22/22 History 70-30 mix 100 unit/mL subcutaneous susp (Novolin 70/30 U-100 Insulin) warfarin 5 mg tablet 5 - 7.5 mg PO UD 08/21/19 05/22/22 History baclofen 10 mg tablet See Rx Instructions .Route .COMPLEX 09/22/19 05/22/22 History cyclobenzaprine 10 mg tablet 15 mg PO HS 03/01/20 05/22/22 History hyoscyamine sulfate 0.125 mg tablet 0.125 mg PO QPM 03/01/20 05/22/22 History potassium chloride 10 mEq 10 meq PO BIDM 03/01/20 05/22/22 History tablet,extended release tizanidine 4 mg tablet 4 mg PO BID 03/01/20 05/22/22 History Medical Marijuana See Rx Instructions .Route .COMPLEX 03/26/20 05/22/22 History methenamine hippurate 1 gram tablet 1 g PO BID 30 days #60 tabs 04/02/20 05/22/22 Rx ascorbic acid (vitamin C) 500 mg 250 mg PO TID 12/03/20 05/22/22 History tablet (Vitamin C) famotidine 20 mg tablet (Acid 20 mg PO BID 12/03/20 05/22/22 History Splitting Machine Tender (famotidine)) Lactobacillus acidoph-L.bulgaricus 1 tab PO BID 01/03/21 05/22/22 History 1 million cell tablet (Floranex) insulin regular human 100 unit/mL See Rx Instructions .Route .COMPLEX 01/03/21 05/22/22 History injection solution (Novolin R Regular U-100 Insulin) menthol 0.44 %-zinc oxide 20.6 % 1 applic topical QID PRN Rash 01/03/21 05/22/22 History topical ointment (Calmoseptine) nystatin 100,000 unit/gram topical 1 applic topical BID PRN Rash 01/03/21 05/22/22 History powder metformin 1,000 mg tablet 1,000 mg PO BIDM 06/14/21 05/22/22 History arginine 7 gram-glutamine 7 1 ea PO BID 12/31/21 05/22/22 History gram-calcium HMB 1.5 gram oral powder pack (Adrien) atorvastatin 40 mg tablet 40 mg PO HS 12/31/21 05/22/22 History docusate sodium 100 mg capsule 100 mg PO AMHS 12/31/21 05/22/22 History levothyroxine 25 mcg tablet 25 mcg PO DAILYBB 02/12/22 05/22/22 History cefdinir 300 mg capsule 300 mg PO BID 05/22/22 05/22/22 History ketoconazole 2 % shampoo 1 applic topical 2XWK 05/22/22 05/22/22 History levetiracetam 500 mg tablet 500 mg PO AMHS 05/22/22 05/22/22 History multivitamin (Daily-Steve tablet) 1 tab PO DAILY 05/22/22 05/22/22 History nystatin-triamcinolone 100,000 1 applic topical BID 05/22/22 05/22/22 History unit/g-0.1 % topical cream spironolactone 25 mg tablet 25 mg PO QAM 05/22/22 05/22/22 History tacrolimus 0.1 % topical ointment 1 applic topical BID PRN as 05/22/22 05/22/22 History directed Past Med/Surg History Medical History Anemia Asymptomatic bacteriuria Clostridium difficile infection (Unknown) CVA (cerebral vascular accident) DM type 2 (diabetes mellitus, type 2) Dyslipidemia Dysphagia Fever History of blood clots History of DVT (deep vein thrombosis) Hypertension Hypotension Ileus Kidney disease Leukocytosis Major depressive disorder, recurrent Morbid obesity Obesity Occluded PICC line Positive urine culture Quadriplegia BRAIN INJURY 11 YRS AGO Quadriplegia Sacral decubitus ulcer, stage IV Seizure Sepsis SIRS (systemic inflammatory response syndrome) Sleep apnea (Unknown) OXYGEN 2L/MIN NC HS Syncope 57 year old with know quadriplegia and new onset syncope with change in position UTI (urinary tract infection) RECENT [facility] ADMISION-D/C 12/06/20 Surgical History Chronic suprapubic catheter History of colonoscopy 2010 History of open reduction and internal fixation (ORIF) procedure LEFT FEMUR Insertion of inferior vena caval filter (Unknown) Lithotripsy (Unknown) "laser lithotripsy left ureteral stone 03/17/11 " S/P debridement (09/06/21) Incision and Drainage and Debridement Sacral Tissue Down to Bone, 15cm x 11cm - Agusto Chaudhry, DO 09/06/21 S/P debridement (09/08/21) Excisional Debridement of Sacral Decubitus Ulcer, [id number] Down to Bone - Agusto Chaudhry, DO 09/08/2021. Patient made ASA 4. Ketamine/versed/fentanyl sedation. Tolerated without incident. S/P debridement S/P knee surgery S/P tonsillectomy Suprapubic cystostomy (Unknown) IN PLACE Family History Mother Family history of diabetes mellitus Father Family hx of colon cancer Other No pertinent family history Social History Smoking Status: Never smoker Second Hand Exposure: No; Hx Alcohol Use: No Hx Substance Use: No Preferred Language: [place]amb[place] Communication Ability: Effective Visual Impairment: No Limitations Surface Grinder Tender Required: No Beliefs That Will Affect Care: None marital status: Current Living Situation: Spouse Current Living Situation Comment: Lives with - has care nurse 5x/week, 29/03 caregivers current occupational status: disabled Feels Safe at Home: Yes Physical Activity Frequency Comment: QUADRAPLEGIA C4-5-ABLE TO MOVE ARMS, HANDS Assistive Devices: Hospital Bed, Mechanical Lift, Oxygen - at Night, Wheelchair and Other Review of Systems Review of Systems: All systems reviewed & are unremarkable except as noted in HPI & below Physical Exam Physical Exam: General: no distress, obese Head: normocephalic, atraumatic Eyes: PERRL, EOM's intact, conjunctiva non-injected, anicteric ENT: normal inspection external ears, nose, mucous membranes moist Neck: supple, trachea midline Lungs: clear, no respiratory distress, no wheezing/rhonchi/rales CV: RRR, no murmur, trace pretibial edema Abd: protuberant, normal BS, soft, non-tender, suprapubic catheter in place. +ostomy bag with brown soft stool Ext: no cyanosis, some movement of bilateral hands and arms, BLE paralysis, +intermittent spasm noted LLE, no other extremity abnormal movements noted Neuro: A&O x 3, normal affect Skin: warm, dry; sacral wound without significant erythema, no significant purulent drainage Results & Data Results & Data ([facility]) Vital Signs (Past 12 Hours) Vital Signs Temp Pulse Resp BP Pulse Ox O2 Del Method O2 Flow Rate 05/22/22 20:30 109/64 05/22/22 20:30 83 12 95 05/22/22 20:00 84 13 96 05/22/22 20:00 117/67 05/22/22 19:30 101/51 L 05/22/22 19:30 88 18 05/22/22 19:59 84 16 96 Room Air 05/22/22 19:59 Room Air 05/22/22 19:00 89 4 L 99 05/22/22 19:00 102/56 L 05/22/22 18:51 87 22 99 05/22/22 18:51 122/67 05/22/22 18:31 81 13 94 05/22/22 18:31 76/64 L 05/22/22 18:00 84 18 129/98 97 Nasal Cannula 2 05/22/22 17:30 85 16 106/56 L 88 L 05/22/22 17:13 87 16 120/61 94 05/22/22 14:22 36.5 C 93 H 16 146/71 H 99 Room Air Laboratory Results Short CBC 05/22/22 Range/Units 14:25 WBC 13.57 H (4.8-10.8) K/ul Hgb 11.2 L (14.0-18.0) g/dl Hct 36.8 L (40.1-51.0) % Plt Count 244 (130-400) K/uL BMP 05/22/22 14:25 Sodium 136 Potassium 3.9 Chloride 96 L Carbon Dioxide 33 H BUN 34 H Creatinine 1.25 Glucose 212 H Calcium 9.2 Liver Function 05/22/22 Range/Units 14:25 Total Bilirubin 0.3 (0.2-1.0) mg/dl AST 14 (13-39) U/L ALT 13 (7-52) U/L Alkaline Phosphatase 49 (34-104) U/L Albumin 3.6 (3.4-5.0) gm/dl Urine 05/22/22 Range/Units 18:20 Urine Color Yellow Urine Appearance Cloudy A (Clear) Urine pH 5.0 (4.5-7.5) Ur Specific [place] 1.017 (1.000-1.030) Urine Protein Trace H (Negative) Urine Glucose (UA) Negative (Negative) Diagnostic Findings Chest X-Ray 05/22/22 14:39 XR chest 1V portable HISTORY: 61 years-old Male weakness acute weakness COMPARISON: Chest radiograph 12/31/2021 TECHNIQUE: AP view of the chest FINDINGS: Cardiac silhouette is enlarged. No pneumothorax, large pleural effusion or overt pulmonary edema. Degenerative changes of the shoulders and spine. Numerous fractured wires project over the left hemithorax. Prior partial resection of the left ninth rib. IMPRESSION: No acute process. ACT 112: Negative or not required by law. The above report was generated using voice recognition software. It may contain grammatical, syntax or spelling errors. Electronically signed by: Rey Pimentel M.D. 05/22/2022 3:[address] 05/22/22 14:39 CT head/brain wo con CLINICAL HISTORY: 61 years-old Male with confusion. Acutely altered mental status TECHNIQUE: Multiple axial CT images of the head were obtained without contrast. A dose lowering technique was utilized adhering to the principles of ALARA. CT DOSE: 821.00 mGycm COMPARISON: 12/31/2021 FINDINGS: No acute intracranial hemorrhage, midline shift, intracranial mass, hydrocephalus, territorial ischemia or abnormal extra-axial collection. Motion degraded exam. Involutional changes. Mild white matter hypodensities suggestive of probable chronic microvascular ischemic disease. Unchanged calcification involving the posterior aspect of the falx cerebri. Chronic encephalomalacia of the left frontal lobe. The calvarium is intact. Prior bilateral lens repair. The paranasal sinuses, mastoid air cells, and middle ear cavities are clear. IMPRESSION: No acute intracranial abnormality identified. ACT 112: Negative or not required by law. The above report was generated using voice recognition software. It may contain grammatical, syntax or spelling errors. Electronically signed by: Rey Pimentel M.D. 05/22/2022 4:28 PM Code Status & VTE Plan VTE Prophylaxis Plan VTE Prophylaxis will be ordered: Yes Supervising Physician Co-Signing Physician Notes Patient was seen and examined independently at bedside. Chart reviewed. Case discussed with Kath BULLOCK and agree with the documentation above with regards to HPI, exam and A/P except as noted below. In summary, this is a 61 year old male with complicated h/o as above presented with lethargy and confusion at home for 1 day. States he does not recall what happened but states this is how his sepsis starts. Currently feels fine, AAOx3 and conversing appropriately. Denies fever chills, N/V. On suprapubic catheter changed every month last changed on 04/30. Noted cloudy urine a week ago but then cleared itself. States his sacral wound is dressed every other day at home and follows with [facility] and said to be improving and getting smaller. Vitals stable. AAOx3, MMM, chest clear, heart sounds normal, abd benign, suprapubic cath site clean, urbina with clear urine, colostomy noted. Labs and imaging reviewed and noted. Agree with empiric antibiotics for now pending blood, wound and urine clx and deescalate subsequently. WOCN eval. hold coumadin until INR drifts down to therapeutic range. Rest as per the note above.
[2022-05-22] MEDS ORDERED: GLUCOSE 10 TAB/TUBE PO PRN (23:53)
[2022-05-22] MEDS ORDERED: CARBOHYDRATES FOR HYPOGLYCEMIA PO PRN (23:53)
[2022-05-22] MEDS ORDERED: DEXTROSE 50% 50 ML SYRINGE IV PRN (23:53)
[2022-05-22] MEDS ORDERED: LANTUS PER UNIT CHARGE SQ SCH (23:53)
[2022-05-22] MEDS ORDERED: POLYETHYLENE (MIRALAX) 17 GM PACK PO PRN (23:53)
[2022-05-22] MEDS ORDERED: MENTHOL-ZINC OXIDE 360 APPLN/120 GM TUBE EXT PRN (23:53)
[2022-05-22] MEDS ORDERED: GLUCAGON FOR INJ 1 MG VIAL SQ PRN (23:53)
[2022-05-22] MEDS ORDERED: GLUCOSE 40% GEL 15 GM TUBE PO PRN (23:53)
[2022-05-22] MEDS ORDERED: ONDANSETRON INJ 2 MG/ML 2 ML VIAL IV PRN (23:53)
[2022-05-22] MEDS ORDERED: PHARMACY GLYCEMIC MGMT CONSULT PRN (23:53)
[2022-05-23] MEDS: allopurinoL 100 MG TAB PO SCH ×3 (01:12→17:58)
[2022-05-23] MEDS: DOCUSATE SODIUM 100 MG CAP PO SCH ×3 (01:14→21:46)
[2022-05-23] MEDS: GABAPENTIN 800 MG TAB PO SCH ×3 (01:16→17:59)
[2022-05-23] MEDS: FAMOTIDINE 20 MG TAB PO SCH ×3 (01:16→21:47)
[2022-05-23] MEDS: HYOSCYAMINE SULFATE 0.125 MG TAB PO SCH ×2 (01:17→21:47)
[2022-05-23] MEDS: ADVANCED PROBIOTIC 1250 MG CAPSULE PO SCH ×3 (01:17→21:47)
[2022-05-23] MEDS: levETIRAcetam 500 MG TAB PO SCH ×3 (01:18→22:46)
[2022-05-23] MEDS: CYCLOBENZAPRINE HCL 5 MG TAB PO SCH (01:19)
[2022-05-23] MEDS: PANTOprazole 40 MG TAB PO SCH ×3 (01:19→21:48)
[2022-05-23] MEDS: MAGNESIUM OXIDE 400 MG TAB PO SCH ×2 (01:20→12:22)
[2022-05-23] MEDS: rOPINIRole HCL 1 MG TABLET PO SCH ×4 (01:21→18:01)
[2022-05-23] MEDS: tiZANidine HCL 4 MG TABLET PO SCH ×2 (01:22→12:23)
[2022-05-23] MEDS: CEFEPIME 2,000 MG in SYRINGE 0 ML IV SCH ×3 (01:24→18:20)
[2022-05-23] MEDS: BACLOFEN 20 MG TAB PO SCH ×2 (01:24→21:45)
[2022-05-23] MEDS: INSULIN ASPART PER UNIT SC SCH ×6 (01:49→22:08)
[2022-05-23] MEDS: ACETAMINOPHEN 325 MG TAB PO PRN (04:27)
[2022-05-23] MEDS ORDERED: KETOROLAC TROMETHAMINE 15 MG/ML VIAL IV ONE (05:37)
[2022-05-23] MEDS: LEVOTHYROXINE SODIUM 25 MCG TABLET PO SCH (06:26)
[2022-05-23 09:17] LABS: Basophils # (auto) 0.08 K/uL (0-0.2); Basophils % (auto) 0.6 %; Eosinophils % (auto) 4.5 %; Hematocrit (blood only) 34.4 % (40.1-51.0); Hemoglobin 10.6 g/dl (14.0-18.0); Immature Granulocytes # (auto) 0.05 K/uL (0.00-0.02); Immature Granulocytes % (auto) 0.4 %; Lymphocytes # (auto) 2.34 K/uL (1.2-3.4); Lymphocytes % (auto) 17.7 %; Mean Corpuscular Hemoglobin 27.2 pg (25.0-34.0); Mean Corpuscular Hgb Conc 30.8 g/dL (32.0-36.0); Mean Corpuscular Volume 88.2 fL (80.0-100.0); Mean Platelet Volume 9.6 fL (9.4-12.4); Monocytes # (auto) 0.56 K/uL (0.24-0.82); Monocytes % (auto) 4.2 %; Neutrophils # (auto) 9.61 K/uL (1.4-6.5); Neutrophils % (auto) 72.6 %; Platelet Count 226 K/uL (130-400); RDW Standard Deviation 61.1 fL (36.4-46.3); White Blood Count 13.24 K/ul (4.8-10.8)
[2022-05-23] MEDS: POTASSIUM CHLORIDE 10 MEQ TABCR PO SCH ×2 (09:24→18:01)
[2022-05-23] MEDS: BACLOFEN 10 MG TAB PO SCH ×3 (09:24→17:58)
[2022-05-23] MEDS: MULTIVITAMIN TAB PO SCH (09:25)
[2022-05-23] MEDS: ESCITALOPRAM OXALATE 20 MG TAB PO SCH (09:25)
[2022-05-23] MEDS: FERROUS GLUCONATE 324 MG TAB PO SCH (09:25)
[2022-05-23] MEDS: SPIRONOLACTONE 25 MG TAB PO SCH (09:28)
[2022-05-23] MEDS: INSULIN HUMAN NPH SC SCH ×2 (09:42→18:02)
[2022-05-23 09:46] LABS: BUN Creatinine Ratio 26.1 (10-20); Calcium 8.8 mg/dl (8.5-10.1); Est GFR (African American) 75.4 ml/min; Est GFR (Non-African American) 65.1 ml/min; Potassium 4.2 mmol/L (3.5-5.1)
[2022-05-23 09:52] LABS: INR 3.7 (0.9-1.1); Prothrombin Time 37.1 Seconds (9.0-12.0)
[2022-05-23 10:31] LABS: Estimated Average Glucose 192 mg/dl; Hemoglobin A1C 8.3 % (4.5-5.6)
--- NOTE | 2022-05-23 14:10 | Pharmacy Report ---
Pharmacy Glycemic Short Note 2 - Date of Service May 23, 2022 - Glycemic Short BSG Results (Last 24 hours): 05/22/22 05/23/22 05/23/22 14:25 00:39 00:41 Glucose 212 H POC Glucose 226 H 220 H 05/23/22 05/23/22 05/23/22 04:08 07:48 08:50 Glucose 131 H POC Glucose 174 H 155 H 05/23/22 11:17 Glucose POC Glucose 188 H OUTPATIENT ANTIDIABETIC REGIMEN: * Novolin 70/30 -- takes 54 units BIDM, Novolin R SSI, metformin ASSESSMENT: * Patient admitted with lethargy, sacral wound, concerns for sepsis. Type 2 diabetic managed on mix insulin at home. Known to glycemic service from other admissions. Most recently admitted in January of this year. * Plan to utilize similar insulin parameters/doses based upon last admission. Patient averaging about 200-250 units of insulin per day. Had been on NPH 65 units bid last admission, will scale back slightly as unsure what PO status will be - will trial NPH 50 units BID for now PLAN FOR INPATIENT GLYCEMIC CONTROL: * Hold outpatient oral diabetes medications * Basal insulin * NPH 50 units bid * Bolus insulin * NovoLog per scale ACHS or Q6hrs while NPO * Goal Range: Low 110 mg/dL - High 140 mg/dL * Correction Factor: 15 mg/dL/unit * Nutritional / Prandial insulin per carb ratio of 1 unit per 2 grams CHO consumed
--- NOTE | 2022-05-23 14:58 | Hospitalist Progress Note ---
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 diff, HTN, HLD, DM II, chronic anemia presented to ER with lethargy and confusion for 1 day. Patient was brought to the hospital by his . In ER patient afebrile, Vitals stable. WBC: 13. (previous 13 in 01/25), Lactate: 2.1, 2.2 Patient alert and oriented x3 Meets SIRS criteria Chest x-ray: No acute changes CT head: No acute intracranial abnormality ESR- 125 CRP- 3.08 Urine Cx- G -ve bacilli; 20K CFU Blood Cx- pending Plan: Continue on empiric cefepime and vancomycin. Follow-up on cultures. -We will obtain CT abdomen and pelvis to follow-up on his sacral wound. Wound nurse on consult. -Repeat blood culture if he spikes fever. Seizure disorder: Seizure precautions Continue Keppra. 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 Does not use CPAP Continue oxygen at bedtime History DVT s/p IVC filter on chronic anticoagulation INR still elevated. Plan: INR in a.m., hold warfarin. Chronic anemia Hgb: 11 Baseline 9-10. History IV iron in past No signs symptoms of active bleeding Continue iron supplement. HTN Continue Lasix, spironolactone Dyslipidemia Hold statin while on daptomycin Obesity BMI: 46 DVT Prophylaxis On warfarin, INR supratherapeutic Full code as per discussion with pt Follows with Dr Stanford for routine care Admission and Anticipated Discharge Date Admission Date: May 22, 2022 Subjective Patient seen and examined at bedside. He is lethargic; awakens to verbal commands. He is able to follow simple commands as well. He denies any complaints at the present time; says he is comfortable. Telemetry shows normal sinus rhythm. Review of Systems Review of Systems: All systems reviewed & are unremarkable except as noted in Subjective Physical Exam Physical Exam: General: no distress, obese Head: normocephalic, atraumatic Eyes: PERRL, EOM's intact, conjunctiva non-injected, anicteric ENT: normal inspection external ears, nose, mucous membranes moist Neck: supple, trachea midline Lungs: clear, no respiratory distress, no wheezing/rhonchi/rales CV: RRR, no murmur, trace pretibial edema Abd: protuberant, normal BS, soft, non-tender, suprapubic catheter in place. +ostomy bag with brown soft stool Ext: no cyanosis, some movement of bilateral hands and arms, BLE paralysis, + no other extremity abnormal movements noted Neuro: A&O x 3, normal affect Skin: warm, dry; sacral wound without significant erythema, no significant purulent drainage Results & Data Results & Data ([facility]) Vital Signs (Past 12 Hours) Vital Signs Temp Pulse Pulse Resp BP Pulse Ox O2 Del Method 05/23/22 07:00 74 05/23/22 09:00 Room Air 05/23/22 11:09 36.2 C L 89 18 112/67 99 Nasal Cannula 05/23/22 09:00 79 106/67 05/23/22 07:45 36.5 C 75 18 100/55 L 95 Room Air 05/23/22 04:10 37.8 C H 18 108/64 98 Room Air O2 Flow Rate 05/23/22 07:00 05/23/22 09:00 05/23/22 11:09 2 05/23/22 09:00 05/23/22 07:45 05/23/22 04:10 Laboratory Results Laboratory Results WBC 13.24 K/ul (4.8-10.8) H 05/23/22 08:50 RBC 3.90 M/uL (4.63-6.08) L 05/23/22 08:50 Hgb 10.6 g/dl (14.0-18.0) L 05/23/22 08:50 Hct 34.4 % (40.1-51.0) L 05/23/22 08:50 MCV 88.2 fL (80.0-100.0) 05/23/22 08:50 MCH 27.2 pg (25.0-34.0) 05/23/22 08:50 MCHC 30.8 g/dL (32.0-36.0) L 05/23/22 08:50 RDW Std Deviation 61.1 fL (36.4-46.3) H 05/23/22 08:50 RDW Coeff of Yoseph 19.0 % (11.5-14.5) H 05/23/22 08:50 Plt Count 226 K/uL (130-400) 05/23/22 08:50 MPV 9.6 fL (9.4-12.4) 05/23/22 08:50 Immature Gran % (Auto) 0.4 % 05/23/22 08:50 Neut % (Auto) 72.6 % 05/23/22 08:50 Lymph % (Auto) 17.7 % 05/23/22 08:50 Beckham % (Auto) 4.2 % 05/23/22 08:50 Eos % (Auto) 4.5 % 05/23/22 08:50 Baso % (Auto) 0.6 % 05/23/22 08:50 Neut # (Auto) 9.61 K/uL (1.4-6.5) H 05/23/22 08:50 Lymph # (Auto) 2.34 K/uL (1.2-3.4) 05/23/22 08:50 Beckham # (Auto) 0.56 K/uL (0.24-0.82) 05/23/22 08:50 Eos # (Auto) 0.60 K/uL (0-0.50) H 05/23/22 08:50 Baso # (Auto) 0.08 K/uL (0-0.2) 05/23/22 08:50 Immature Gran # (Auto) 0.05 K/uL (0.00-0.02) H 05/23/22 08:50 ESR 125 mm/hr (0-20) H 05/22/22 14:25 PT 37.1 Seconds (9.0-12.0) H 05/23/22 08:50 INR 3.7 (0.9-1.1) H 05/23/22 08:50 APTT 67.1 Seconds (21.0-31.0) H* 05/22/22 14:25 PTT Ratio 2.4 05/22/22 14:25 Sodium 138 mmol/L (136-145) 05/23/22 08:50 Potassium 4.2 mmol/L (3.5-5.1) 05/23/22 08:50 Chloride 101 mmol/L (98-107) 05/23/22 08:50 Carbon Dioxide 33 mmol/L (21-32) H 05/23/22 08:50 Anion Gap 4 (3-11) 05/23/22 08:50 BUN 31 mg/dl (6-23) H 05/23/22 08:50 Creatinine 1.19 mg/dl (0.6-1.4) 05/23/22 08:50 Est Cr Clr Drug Dosing 98.0 ml/min 05/23/22 08:50 Est GFR ( Amer) 75.4 ml/min 05/23/22 08:50 Est GFR (Non-Af Amer) 65.1 ml/min 05/23/22 08:50 BUN/Creatinine Ratio 26.1 (10-20) H 05/23/22 08:50 Glucose 131 mg/dl (70-99(Fasting)) H 05/23/22 08:50 POC Glucose 188 mg/dl (70-99) H 05/23/22 11:17 Estimat Average Glucose 192 mg/dl 05/23/22 08:50 Hemoglobin A1c 8.3 % (4.5-5.6) H 05/23/22 08:50 Lactate 1.9 mmol/L (0.4-2.0) 05/22/22 23:11 Calcium 8.8 mg/dl (8.5-10.1) 05/23/22 08:50 Magnesium 1.8 mg/dl (1.7-2.4) 05/22/22 14:25 Total Bilirubin 0.3 mg/dl (0.2-1.0) 05/22/22 14:25 AST 14 U/L (13-39) 05/22/22 14:25 ALT 13 U/L (7-52) 05/22/22 14:25 Alkaline Phosphatase 49 U/L (34-104) 05/22/22 14:25 Ammonia 28.0 umol/L (18-72) 05/22/22 15:36 Troponin I High Sens 8.0 pg/ml (0-20) 05/22/22 14:25 C-Reactive Protein 3.08 mg/dl (0-0.5) H 05/22/22 14:25 Total Protein 7.6 gm/dl (6.0-8.3) 05/22/22 14:25 Albumin 3.6 gm/dl (3.4-5.0) 05/22/22 14:25 Globulin 4.0 gm/dl (2.5-4.0) 05/22/22 14:25 Albumin/Globulin Ratio 0.9 (0.9-2) 05/22/22 14:25 Procalcitonin 0.15 ng/ml (0-0.5) 05/22/22 14:25 TSH 2.321 uIu/ml (0.300-4.500) 05/22/22 14:25 Urine Color Yellow 05/22/22 18:20 Urine Appearance Cloudy (Clear) A 05/22/22 18:20 Urine pH 5.0 (4.5-7.5) 05/22/22 18:20 Ur Specific Austell 1.017 (1.000-1.030) 05/22/22 18:20 Urine Protein Trace (Negative) H 05/22/22 18:20 Urine Glucose (UA) Negative (Negative) 05/22/22 18:20 Urine Ketones Negative (Negative) 05/22/22 18:20 Urine Blood 3+ (Negative) H 05/22/22 18:20 Urine Nitrite Negative (Negative) 05/22/22 18:20 Urine Bilirubin Negative (Negative) 05/22/22 18:20 Urine Urobilinogen Negative (Negative) 05/22/22 18:20 Ur Leukocyte Esterase 3+ (Negative) H 05/22/22 18:20 Urine WBC (Auto) >30 /hpf (0-5) H 05/22/22 18:20 Urine RBC (Auto) >30 /hpf (0-4) H 05/22/22 18:20 U Hyaline Cast (Auto) 1-5 /lpf (0-5) 05/22/22 18:20 U Epithel Cells (Auto) >30 /lpf (0-5) H 05/22/22 18:20 Urine Bacteria (Auto) Negative (Negative) 05/22/22 18:20 Urine Yeast Present (None Prsent) A 05/22/22 18:20 Stl C. cayetanensis PCR Not Detected (NotDetected) 05/22/22 18:20 Stool Rotavirus A PCR Not Detected (NotDetected) 05/22/22 18:20 Stl Adenov F 40/41 PCR Not Detected (NotDetected) 05/22/22 18:20 Stool Astrovirus (PCR) Not Detected (NotDetected) 05/22/22 18:20 Stool Campylobacter PCR Not Detected (NotDetected) 05/22/22 18:20 Stl C. diff Tox A/B PCR Not Detected (NotDetected) 05/22/22 18:20 Stool Cryptosporidium PCR Not Detected (NotDetected) 05/22/22 18:20 Stl E.coli Shiga Tox PCR Not Detected (NotDetected) 05/22/22 18:20 Stl Enterotoxigenic E PCR Not Detected (NotDetected) 05/22/22 18:20 Stool EPEC (PCR) Not Detected (NotDetected) 05/22/22 18:20 Stool EAEC (PCR) Not Detected (NotDetected) 05/22/22 18:20 Stl E. histolytica PCR Not Detected (NotDetected) 05/22/22 18:20 Stool Giardia Lamblia PCR Not Detected (NotDetected) 05/22/22 18:20 Stool Salmonella PCR Not Detected (NotDetected) 05/22/22 18:20 Stool Sapovirus (PCR) Not Detected (NotDetected) 05/22/22 18:20 Stl P. shigelloides PCR Not Detected (NotDetected) 05/22/22 18:20 Stl Shigella/EIEC PCR Not Detected (NotDetected) 05/22/22 18:20 St Y.enterocolitica PCR Not Detected (NotDetected) 05/22/22 18:20 Stool Vibrio (PCR) Not Detected (NotDetected) 05/22/22 18:20 Stl Vibrio cholerae PCR Not Detected (NotDetected) 05/22/22 18:20 Stl Norovirus GI/GII PCR Not Detected (NotDetected) 05/22/22 18:20 SARS-CoV-2 (PCR) NEGATIVE (Negative) 05/22/22 17:00 Impressions Chest X-Ray 05/22/22 14:39 XR chest 1V portable HISTORY: 61 years-old Male weakness acute weakness COMPARISON: Chest radiograph 12/31/2021 TECHNIQUE: AP view of the chest FINDINGS: Cardiac silhouette is enlarged. No pneumothorax, large pleural effusion or overt pulmonary edema. Degenerative changes of the shoulders and spine. Numerous fractured wires project over the left hemithorax. Prior partial resection of the left ninth rib. IMPRESSION: No acute process. ACT 112: Negative or not required by law. The above report was generated using voice recognition software. It may contain grammatical, syntax or spelling errors. Electronically signed by: Rey Pimentel M.D. 05/22/2022 3:[address] 05/22/22 14:39 CT head/brain wo con CLINICAL HISTORY: 61 years-old Male with confusion. Acutely altered mental status TECHNIQUE: Multiple axial CT images of the head were obtained without contrast. A dose lowering technique was utilized adhering to the principles of ALARA. CT DOSE: 821.00 mGycm COMPARISON: 12/31/2021 FINDINGS: No acute intracranial hemorrhage, midline shift, intracranial mass, hydrocephalus, territorial ischemia or abnormal extra-axial collection. Motion degraded exam. Involutional changes. Mild white matter hypodensities suggestive of probable chronic microvascular ischemic disease. Unchanged calcification involving the posterior aspect of the falx cerebri. Chronic encephalomalacia of the left frontal lobe. The calvarium is intact. Prior bilateral lens repair. The paranasal sinuses, mastoid air cells, and middle ear cavities are clear. IMPRESSION: No acute intracranial abnormality identified. ACT 112: Negative or not required by law. The above report was generated using voice recognition software. It may contain grammatical, syntax or spelling errors. Electronically signed by: Rey Pimentel M.D. 05/22/2022 4:28 PM
--- NOTE | 2022-05-23 15:59 | CT Scan Report ---
ABDOMEN AND PELVIS CT WITHOUT CONTRAST CT DOSE: 2989.89 mGy.cm HISTORY: Follow up on sacral wound TECHNIQUE: Multiaxial CT images of the abdomen and pelvis were performed without contrast. A dose lo wering technique was utilized adhering to the principles of ALARA. COMPARISON STUDY: Abdomen and pelvis CT 12/31/2021. FINDINGS: Mild dependent changes seen at the lung bases. No pneumoperitoneum. No pneumatosis. The sac ral decubitus ulcer has decreased in size. This does not clearly extend to the bone at this time. The re is persistent sclerosis of the mid to distal sacrum with absence of the distal sacrum/proximal uriah cyx. This is similar to the prior study and could be due to chronic erosion or prior resection. The l eft gluteal ulcer is also slightly improved. This is in close proximity to the left ischial tuberosit y. Stable chronic erosive change at the left ischial tuberosity. No new areas of bony destruction no ntified. Postoperative changes within the left lower ribs. There is a punctate stone within the gallb ladder. No gallbladder wall thickening. The unenhanced liver, spleen, left adrenal gland, and pancrea s unremarkable. There is a stable right adrenal gland nodule. There are few punctate bilateral renal calculi. No ureteral stones. No hydronephrosis. The bladder is decompressed by a suprapubic catheter. No retroperitoneal lymphadenopathy. An IVC filter is again noted. No pelvic free fluid. No bowel wal l thickening or obstruction. Moderate well-formed stool seen within the colon. There is a left lower quadrant ostomy again noted. Hepatic steatosis. IMPRESSION: 1. Interval decrease in size in the sacral decubitus ulcer. This does not extend to the bone at this time. There is persistent sclerosis of the mid to distal sacrum with absence of the distal sacrum/pro ximal coccyx. This is similar to the prior study and could be due to chronic erosion or prior resecti on. 2. The left gluteal ulcer slightly improved. There are stable chronic erosive changes at the left isc hial tuberosity. 3. No new areas of bony destruction identified. 4. Additional findings as described above. ACT 112: Negative or not required by law. Electronically signed by: Angel Boo M.D. 05/23/2022 3:57 PM
[2022-05-23] MEDS ORDERED: DAPTOmycin 625 MG in SYRINGE 0 ML IV SCH (22:00)
[2022-05-24] MEDS: tiZANidine HCL 4 MG TABLET PO SCH ×2 (00:37→12:55)
[2022-05-24] MEDS: MAGNESIUM OXIDE 400 MG TAB PO SCH ×2 (00:37→12:55)
[2022-05-24] MEDS: CYCLOBENZAPRINE HCL 5 MG TAB PO SCH (00:37)
[2022-05-24] MEDS: rOPINIRole HCL 1 MG TABLET PO SCH ×4 (00:37→17:05)
[2022-05-24] MEDS: CEFEPIME 2,000 MG in SYRINGE 0 ML IV SCH ×3 (02:07→17:49)
[2022-05-24] MEDS: LEVOTHYROXINE SODIUM 25 MCG TABLET PO SCH (05:45)
[2022-05-24] MEDS: allopurinoL 100 MG TAB PO SCH ×2 (05:45→17:05)
[2022-05-24] MEDS: GABAPENTIN 800 MG TAB PO SCH (05:45)
[2022-05-24 06:52] LABS: Basophils # (auto) 0.08 K/uL (0-0.2); Basophils % (auto) 0.7 %; Eosinophils % (auto) 5.1 %; Hemoglobin 10.6 g/dl (14.0-18.0); Immature Granulocytes # (auto) 0.04 K/uL (0.00-0.02); Immature Granulocytes % (auto) 0.3 %; Lymphocytes # (auto) 2.26 K/uL (1.2-3.4); Lymphocytes % (auto) 19.3 %; Mean Corpuscular Hemoglobin 27.2 pg (25.0-34.0); Mean Corpuscular Hgb Conc 31.2 g/dL (32.0-36.0); Mean Corpuscular Volume 87.2 fL (80.0-100.0); Mean Platelet Volume 9.5 fL (9.4-12.4); Monocytes # (auto) 0.56 K/uL (0.24-0.82); Monocytes % (auto) 4.8 %; Neutrophils # (auto) 8.15 K/uL (1.4-6.5); Neutrophils % (auto) 69.8 %; Platelet Count 227 K/uL (130-400); RDW Standard Deviation 59.8 fL (36.4-46.3); White Blood Count 11.69 K/ul (4.8-10.8)
[2022-05-24 07:06] LABS: INR 2.7 (0.9-1.1); Prothrombin Time 27.7 Seconds (9.0-12.0)
[2022-05-24 07:21] LABS: Albumin Level 3.4 gm/dl (3.4-5.0); BUN Creatinine Ratio 23.8 (10-20); Bilirubin,Total 0.4 mg/dl (0.2-1.0); Calcium 8.9 mg/dl (8.5-10.1); Creatinine Clr Calc Pharmacy 90.9 ml/min; Est GFR (African American) 67.8 ml/min; Est GFR (Non-African American) 58.5 ml/min; Globulin 3.5 gm/dl (2.5-4.0); Potassium 4.4 mmol/L (3.5-5.1); Total Protein 6.9 gm/dl (6.0-8.3)
[2022-05-24] MEDS: INSULIN HUMAN NPH SC SCH ×2 (08:56→17:51)
[2022-05-24] MEDS: POTASSIUM CHLORIDE 10 MEQ TABCR PO SCH ×2 (08:58→17:07)
[2022-05-24] MEDS: BACLOFEN 10 MG TAB PO SCH ×2 (08:58→17:05)
[2022-05-24] MEDS: DOCUSATE SODIUM 100 MG CAP PO SCH ×2 (08:58→21:53)
[2022-05-24] MEDS: ESCITALOPRAM OXALATE 20 MG TAB PO SCH (08:59)
[2022-05-24] MEDS: levETIRAcetam 500 MG TAB PO SCH ×2 (08:59→21:54)
[2022-05-24] MEDS: ADVANCED PROBIOTIC 1250 MG CAPSULE PO SCH ×2 (08:59→21:54)
[2022-05-24] MEDS: FERROUS GLUCONATE 324 MG TAB PO SCH (08:59)
[2022-05-24] MEDS: FAMOTIDINE 20 MG TAB PO SCH ×2 (08:59→21:54)
[2022-05-24] MEDS: PANTOprazole 40 MG TAB PO SCH ×2 (09:00→21:54)
[2022-05-24] MEDS: MULTIVITAMIN TAB PO SCH (09:00)
[2022-05-24] MEDS: SPIRONOLACTONE 25 MG TAB PO SCH (09:00)
[2022-05-24] MEDS: INSULIN ASPART PER UNIT SC SCH ×4 (09:07→22:15)
--- NOTE | 2022-05-24 13:59 | Hospitalist Progress Note ---
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 diff, HTN, HLD, DM II, chronic anemia presented to ER with lethargy and confusion for 1 day. Patient was brought to the hospital by his . In ER patient afebrile, Vitals stable. WBC: 13. (previous 13 in 01/25), Lactate: 2.1, 2.2 Patient alert and oriented x3 Meets SIRS criteria Chest x-ray: No acute changes CT head: No acute intracranial abnormality ESR- 125 CRP- 3.08 Urine Cx- G -ve bacilli; 20K CFU. Pansensitive Pseudomonas Blood Cx-no growth Superficial wound culturegram-negative bacilli. CT abdomen pelvis shows improvement in the sacral decubitus ulcer; no suspicion for osteomyelitis. Plan: Infectious work-up so far reveals urine culture which grew pansensitive Pseudomonas. We will continue on cefepime and discontinue daptomycin. -No clinical significance of superficial wound culture. -Patient's lethargic can be related to his multiple medications which include gabapentin, baclofen, tizanidine, Keppra and escitalopram. We will decrease the dose of gabapentin to 600 mg and decrease the dose of baclofen to twice daily. Both patient and his are agreeable to the plan. Seizure disorder: Seizure precautions Continue Keppra. 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 Does not use CPAP Continue oxygen at bedtime History DVT s/p IVC filter on chronic anticoagulation INR still elevated. Plan: INR therapeutic; will resume warfarin from tomorrow. Chronic anemia Hgb: 11 Baseline 9-10. History IV iron in past No signs symptoms of active bleeding Continue iron supplement. HTN Continue Lasix, spironolactone Dyslipidemia Resume statin Obesity BMI: 46 DVT Prophylaxis On warfarin, INR supratherapeutic Full code as per discussion with pt Follows with Dr Stanford for routine care Admission and Anticipated Discharge Date Admission Date: May 22, 2022 Subjective Patient seen and examined at bedside. He feels he is less lethargic compared to presentation. He is afebrile in last 24 hours. Physical Exam Physical Exam: General: no distress, obese Head: normocephalic, atraumatic Eyes: PERRL, EOM's intact, conjunctiva non-injected, anicteric ENT: normal inspection external ears, nose, mucous membranes moist Neck: supple, trachea midline Lungs: clear, no respiratory distress, no wheezing/rhonchi/rales CV: RRR, no murmur, trace pretibial edema Abd: protuberant, normal BS, soft, non-tender, suprapubic catheter in place. +ostomy bag with brown soft stool Ext: no cyanosis, some movement of bilateral hands and arms, BLE paralysis, + no other extremity abnormal movements noted Neuro: A&O x 3, normal affect Skin: warm, dry; sacral wound without significant erythema, no significant purulent drainage Results & Data Results & Data ([facility]) Vital Signs (Past 12 Hours) Vital Signs Temp Pulse Pulse Pulse Resp BP Pulse Ox 05/24/22 11:28 36.9 C 90 15 105/71 90 05/24/22 08:00 05/24/22 10:06 36.8 C 98 H 13 128/83 88 L 05/24/22 07:00 85 05/24/22 09:13 90 128/78 05/24/22 02:43 05/24/22 02:38 85 O2 Del Method O2 Flow Rate 05/24/22 11:28 Room Air 05/24/22 08:00 Room Air 05/24/22 10:06 Room Air 05/24/22 07:00 05/24/22 09:13 05/24/22 02:43 Nasal Cannula 2 05/24/22 02:38 Laboratory Results Laboratory Results WBC 11.69 K/ul (4.8-10.8) H 05/24/22 06:33 RBC 3.90 M/uL (4.63-6.08) L 05/24/22 06:33 Hgb 10.6 g/dl (14.0-18.0) L 05/24/22 06:33 Hct 34.0 % (40.1-51.0) L 05/24/22 06:33 MCV 87.2 fL (80.0-100.0) 05/24/22 06:33 MCH 27.2 pg (25.0-34.0) 05/24/22 06:33 MCHC 31.2 g/dL (32.0-36.0) L 05/24/22 06:33 RDW Std Deviation 59.8 fL (36.4-46.3) H 05/24/22 06:33 RDW Coeff of Yoseph 19.0 % (11.5-14.5) H 05/24/22 06:33 Plt Count 227 K/uL (130-400) 05/24/22 06:33 MPV 9.5 fL (9.4-12.4) 05/24/22 06:33 Immature Gran % (Auto) 0.3 % 05/24/22 06:33 Neut % (Auto) 69.8 % 05/24/22 06:33 Lymph % (Auto) 19.3 % 05/24/22 06:33 [place] % (Auto) 4.8 % 05/24/22 06:33 Eos % (Auto) 5.1 % 05/24/22 06:33 Baso % (Auto) 0.7 % 05/24/22 06:33 Neut # (Auto) 8.15 K/uL (1.4-6.5) H 05/24/22 06:33 Lymph # (Auto) 2.26 K/uL (1.2-3.4) 05/24/22 06:33 [place] # (Auto) 0.56 K/uL (0.24-0.82) 05/24/22 06:33 Eos # (Auto) 0.60 K/uL (0-0.50) H 05/24/22 06:33 Baso # (Auto) 0.08 K/uL (0-0.2) 05/24/22 06:33 Immature Gran # (Auto) 0.04 K/uL (0.00-0.02) H 05/24/22 06:33 ESR 125 mm/hr (0-20) H 05/22/22 14:25 PT 27.7 Seconds (9.0-12.0) H 05/24/22 06:33 INR 2.7 (0.9-1.1) H 05/24/22 06:33 APTT 67.1 Seconds (21.0-31.0) H* 05/22/22 14:25 PTT Ratio 2.4 05/22/22 14:25 Sodium 137 mmol/L (136-145) 05/24/22 06:33 Potassium 4.4 mmol/L (3.5-5.1) 05/24/22 06:33 Chloride 101 mmol/L (98-107) 05/24/22 06:33 Carbon Dioxide 31 mmol/L (21-32) 05/24/22 06:33 Anion Gap 5 (3-11) 05/24/22 06:33 BUN 31 mg/dl (6-23) H 05/24/22 06:33 Creatinine 1.30 mg/dl (0.6-1.4) 05/24/22 06:33 Est Cr Clr Drug Dosing 90.9 ml/min 05/24/22 06:33 Est GFR ( Amer) 67.8 ml/min 05/24/22 06:33 Est GFR (Non-Af Amer) 58.5 ml/min 05/24/22 06:33 BUN/Creatinine Ratio 23.8 (10-20) H 05/24/22 06:33 Glucose 139 mg/dl (70-99(Fasting)) H 05/24/22 06:33 POC Glucose 180 mg/dl (70-99) H 05/24/22 11:42 Estimat Average Glucose 192 mg/dl 05/23/22 08:50 Hemoglobin A1c 8.3 % (4.5-5.6) H 05/23/22 08:50 Lactate 1.9 mmol/L (0.4-2.0) 05/22/22 23:11 Calcium 8.9 mg/dl (8.5-10.1) 05/24/22 06:33 Magnesium 1.8 mg/dl (1.7-2.4) 05/22/22 14:25 Total Bilirubin 0.4 mg/dl (0.2-1.0) 05/24/22 06:33 AST 13 U/L (13-39) 05/24/22 06:33 ALT 13 U/L (7-52) 05/24/22 06:33 Alkaline Phosphatase 48 U/L (34-104) 05/24/22 06:33 Ammonia 28.0 umol/L (18-72) 05/22/22 15:36 Total Creatine Kinase 57 U/L (30-223) 05/24/22 06:33 Troponin I High Sens 8.0 pg/ml (0-20) 05/22/22 14:25 C-Reactive Protein 3.08 mg/dl (0-0.5) H 05/22/22 14:25 Total Protein 6.9 gm/dl (6.0-8.3) 05/24/22 06:33 Albumin 3.4 gm/dl (3.4-5.0) 05/24/22 06:33 Globulin 3.5 gm/dl (2.5-4.0) 05/24/22 06:33 Albumin/Globulin Ratio 1.0 (0.9-2) 05/24/22 06:33 Procalcitonin 0.15 ng/ml (0-0.5) 05/22/22 14:25 TSH 2.321 uIu/ml (0.300-4.500) 05/22/22 14:25 Urine Color Yellow 05/22/22 18:20 Urine Appearance Cloudy (Clear) A 05/22/22 18:20 Urine pH 5.0 (4.5-7.5) 05/22/22 18:20 Ur Specific [place] 1.017 (1.000-1.030) 05/22/22 18:20 Urine Protein Trace (Negative) H 05/22/22 18:20 Urine Glucose (UA) Negative (Negative) 05/22/22 18:20 Urine Ketones Negative (Negative) 05/22/22 18:20 Urine Blood 3+ (Negative) H 05/22/22 18:20 Urine Nitrite Negative (Negative) 05/22/22 18:20 Urine Bilirubin Negative (Negative) 05/22/22 18:20 Urine Urobilinogen Negative (Negative) 05/22/22 18:20 Ur Leukocyte Esterase 3+ (Negative) H 05/22/22 18:20 Urine WBC (Auto) >30 /hpf (0-5) H 05/22/22 18:20 Urine RBC (Auto) >30 /hpf (0-4) H 05/22/22 18:20 U Hyaline Cast (Auto) 1-5 /lpf (0-5) 05/22/22 18:20 U Epithel Cells (Auto) >30 /lpf (0-5) H 05/22/22 18:20 Urine Bacteria (Auto) Negative (Negative) 05/22/22 18:20 Urine Yeast Present (None Prsent) A 05/22/22 18:20 Stl C. cayetanensis PCR Not Detected (NotDetected) 05/22/22 18:20 Stool Rotavirus A PCR Not Detected (NotDetected) 05/22/22 18:20 Stl Adenov F 40/41 PCR Not Detected (NotDetected) 05/22/22 18:20 Stool Astrovirus (PCR) Not Detected (NotDetected) 05/22/22 18:20 Stool Campylobacter PCR Not Detected (NotDetected) 05/22/22 18:20 Stl C. diff Tox A/B PCR Not Detected (NotDetected) 05/22/22 18:20 Stool Cryptosporidium PCR Not Detected (NotDetected) 05/22/22 18:20 Stl E.coli Shiga Tox PCR Not Detected (NotDetected) 05/22/22 18:20 Stl Enterotoxigenic E PCR Not Detected (NotDetected) 05/22/22 18:20 Stool EPEC (PCR) Not Detected (NotDetected) 05/22/22 18:20 Stool EAEC (PCR) Not Detected (NotDetected) 05/22/22 18:20 Stl E. histolytica PCR Not Detected (NotDetected) 05/22/22 18:20 Stool Giardia Lamblia PCR Not Detected (NotDetected) 05/22/22 18:20 Stool Salmonella PCR Not Detected (NotDetected) 05/22/22 18:20 Stool Sapovirus (PCR) Not Detected (NotDetected) 05/22/22 18:20 Stl P. shigelloides PCR Not Detected (NotDetected) 09/16/22 18:20 Stl Shigella/EIEC PCR Not Detected (NotDetected) 05/22/22 18:20 St Y.enterocolitica PCR Not Detected (NotDetected) 05/22/22 18:20 Stool Vibrio (PCR) Not Detected (NotDetected) 05/22/22 18:20 Stl Vibrio cholerae PCR Not Detected (NotDetected) 05/22/22 18:20 Stl Norovirus GI/GII PCR Not Detected (NotDetected) 05/22/22 18:20 SARS-CoV-2 (PCR) NEGATIVE (Negative) 05/22/22 17:00 Impressions Chest X-Ray 05/22/22 14:39 XR chest 1V portable HISTORY: 61 years-old Male weakness acute weakness COMPARISON: Chest radiograph 12/31/2021 TECHNIQUE: AP view of the chest FINDINGS: Cardiac silhouette is enlarged. No pneumothorax, large pleural effusion or overt pulmonary edema. Degenerative changes of the shoulders and spine. Numerous fractured wires project over the left hemithorax. Prior partial resection of the left ninth rib. IMPRESSION: No acute process. ACT 112: Negative or not required by law. The above report was generated using voice recognition software. It may contain grammatical, syntax or spelling errors. Electronically signed by: Rey Pimentel M.D. 05/22/2022 3:[address] 05/22/22 14:39 CT head/brain wo con CLINICAL HISTORY: 61 years-old Male with confusion. Acutely altered mental status TECHNIQUE: Multiple axial CT images of the head were obtained without contrast. A dose lowering technique was utilized adhering to the principles of ALARA. CT DOSE: 821.00 mGycm COMPARISON: 12/31/2021 FINDINGS: No acute intracranial hemorrhage, midline shift, intracranial mass, hydrocephalus, territorial ischemia or abnormal extra-axial collection. Motion degraded exam. Involutional changes. Mild white matter hypodensities suggestive of probable chronic microvascular ischemic disease. Unchanged calcification involving the posterior aspect of the falx cerebri. Chronic encephalomalacia of the left frontal lobe. The calvarium is intact. Prior bilateral lens repair. The paranasal sinuses, mastoid air cells, and middle ear cavities are clear. IMPRESSION: No acute intracranial abnormality identified. ACT 112: Negative or not required by law. The above report was generated using voice recognition software. It may contain grammatical, syntax or spelling errors. Electronically signed by: Rey Pimentel M.D. 05/22/2022 4:28 PM Abdomen/Pelvis CT 05/23/22 14:[address] WITHOUT CONTRAST CT DOSE: 2989.89 mGy.cm HISTORY: Follow up on sacral wound TECHNIQUE: Multiaxial CT images of the abdomen and pelvis were performed without contrast. A dose lowering technique was utilized adhering to the principles of ALARA. COMPARISON STUDY: Abdomen and pelvis CT 12/31/2021. FINDINGS: Mild dependent changes seen at the lung bases. No pneumoperitoneum. No pneumatosis. The sacral decubitus ulcer has decreased in size. This does not c learly extend to the bone at this time. There is persistent sclerosis of the mid to distal sacrum with absence of the distal sacrum/proximal coccyx. This is similar to the prior study and could be due to chronic erosion or prior resection. The left gluteal ulcer is also slightly improved. This is in close proximity to the left ischial tuberosity. Stable chronic erosive change at the left ischial tuberosity. No new areas of bony destruction identified. Postoperative changes within the left lower ribs. There is a punctate stone within the gallbladder. No gallbladder wall thickening. The unenhanced liver, spleen, left adrenal gland, and pancreas unremarkable. There is a stable right adrenal gland nodule. There are few punctate bilateral renal calculi. No ureteral stones. No hydronephrosis. The bladder is decompressed by a suprapubic catheter. No retroperitoneal lymphadenopathy. An IVC filter is again noted. No pelvic free fluid. No bowel wall thickening or obstruction. Moderate well-formed stool seen within the colon. There is a left lower quadrant ostomy again noted. Hepatic steatosis. IMPRESSION: 1. Interval decrease in size in the sacral decubitus ulcer. This does not extend to the bone at this time. There is persistent sclerosis of the mid to distal sacrum with absence of the distal sacrum/proximal coccyx. This is similar to the prior study and could be due to chronic erosion or prior resection. 2. The left gluteal ulcer slightly improved. There are stable chronic erosive changes at the left ischial tuberosity. 3. No new areas of bony destruction identified. 4. Additional findings as described above. ACT 112: Negative or not required by law. Electronically signed by: Angel Boo M.D. 05/23/2022 3:57 PM
[2022-05-24] MEDS: GABAPENTIN 600 MG TAB PO SCH (17:05)
[2022-05-24] MEDS: BACLOFEN 20 MG TAB PO SCH (21:53)
[2022-05-24] MEDS: HYOSCYAMINE SULFATE 0.125 MG TAB PO SCH (21:54)
[2022-05-25] MEDS: MAGNESIUM OXIDE 400 MG TAB PO SCH ×2 (00:14→11:41)
[2022-05-25] MEDS: rOPINIRole HCL 1 MG TABLET PO SCH ×4 (00:14→17:48)
[2022-05-25] MEDS: tiZANidine HCL 4 MG TABLET PO SCH ×2 (00:14→11:41)
[2022-05-25] MEDS: CYCLOBENZAPRINE HCL 5 MG TAB PO SCH (00:16)
[2022-05-25] MEDS: GABAPENTIN 600 MG TAB PO SCH ×2 (05:52→17:49)
[2022-05-25] MEDS: allopurinoL 100 MG TAB PO SCH ×2 (05:52→17:49)
[2022-05-25] MEDS: LEVOTHYROXINE SODIUM 25 MCG TABLET PO SCH (05:52)
[2022-05-25] MEDS ORDERED: INSULIN HUMAN NPH SC SCH ×2 (08:00→17:00)
[2022-05-25 08:04] LABS: Albumin Level 3.4 gm/dl (3.4-5.0); BUN Creatinine Ratio 22.1 (10-20); Bilirubin,Total 0.4 mg/dl (0.2-1.0); Calcium 8.9 mg/dl (8.5-10.1); Creatinine Clr Calc Pharmacy 96.8 ml/min; Est GFR (African American) 73.2 ml/min; Est GFR (Non-African American) 63.1 ml/min; Globulin 3.4 gm/dl (2.5-4.0); Potassium 4.1 mmol/L (3.5-5.1); Total Protein 6.8 gm/dl (6.0-8.3)
[2022-05-25] MEDS: DOCUSATE SODIUM 100 MG CAP PO SCH (08:11)
[2022-05-25] MEDS: FAMOTIDINE 20 MG TAB PO SCH (08:11)
[2022-05-25] MEDS: ADVANCED PROBIOTIC 1250 MG CAPSULE PO SCH (08:11)
[2022-05-25] MEDS: levETIRAcetam 500 MG TAB PO SCH (08:11)
[2022-05-25] MEDS: POTASSIUM CHLORIDE 10 MEQ TABCR PO SCH ×2 (08:11→16:21)
[2022-05-25] MEDS: PANTOprazole 40 MG TAB PO SCH (08:11)
[2022-05-25 08:12] LABS: INR 1.7 (0.9-1.1); Prothrombin Time 17.5 Seconds (9.0-12.0)
[2022-05-25] MEDS: FERROUS GLUCONATE 324 MG TAB PO SCH (08:12)
[2022-05-25] MEDS: MULTIVITAMIN TAB PO SCH (08:12)
[2022-05-25] MEDS: SPIRONOLACTONE 25 MG TAB PO SCH (08:12)
[2022-05-25] MEDS: ESCITALOPRAM OXALATE 20 MG TAB PO SCH (08:12)
[2022-05-25] MEDS: ACETAMINOPHEN 325 MG TAB PO PRN (08:14)
[2022-05-25] MEDS: BACLOFEN 10 MG TAB PO SCH ×2 (08:15→17:50)
[2022-05-25] MEDS: INSULIN ASPART PER UNIT SC SCH ×3 (08:32→17:58)
[2022-05-25 09:17] LABS: Basophils # (auto) 0.07 K/uL (0-0.2); Basophils % (auto) 0.6 %; Eosinophils # (auto) 0.64 K/uL (0-0.50); Eosinophils % (auto) 5.7 %; Hematocrit (blood only) 34.1 % (40.1-51.0); Hemoglobin 10.7 g/dl (14.0-18.0); Immature Granulocytes # (auto) 0.06 K/uL (0.00-0.02); Immature Granulocytes % (auto) 0.5 %; Lymphocytes # (auto) 2.47 K/uL (1.2-3.4); Mean Corpuscular Hemoglobin 27.3 pg (25.0-34.0); Mean Corpuscular Hgb Conc 31.4 g/dL (32.0-36.0); Mean Platelet Volume 9.3 fL (9.4-12.4); Monocytes # (auto) 0.67 K/uL (0.24-0.82); Neutrophils # (auto) 7.34 K/uL (1.4-6.5); Neutrophils % (auto) 65.2 %; Platelet Count 212 K/uL (130-400); RDW Coefficient of Variation 19.2 % (11.5-14.5); RDW Standard Deviation 60.6 fL (36.4-46.3); Red Blood Count 3.92 M/uL (4.63-6.08); White Blood Count 11.25 K/ul (4.8-10.8)
[2022-05-25] MEDS ORDERED: CEFEPIME 2,000 MG in SYRINGE 0 ML IV SCH (11:00)
[2022-05-25] MEDS ORDERED: ACETIC ACID 0.25% IRRIG SOLN 1000 ML PLCT IR SCH (12:45)
[2022-05-25] MEDS ORDERED: VANCOMYCIN CONSULT ACTIVE PRN (13:13)
[2022-05-25] MEDS ORDERED: metroNIDAZOLE 500 MG/100 ML BAG IV SCH (14:00)
[2022-05-25] MEDS ORDERED: VANCOMYCIN HCL 2,750 MG in SODIUM CHLORIDE 0.9% 500 ML IV ONE (14:15)
[2022-05-25 15:26] VITALS: BP 114/65; TEMP 98.6; O2SAT 97
[2022-05-25] MEDS ORDERED: WARFARIN SOD 5 MG TAB PO SCH (16:00)
[2022-05-25 16:58] VITALS: PULSE 77
--- NOTE | 2022-05-25 18:03 | Discharge Summary ---
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 diff, HTN, HLD, DM II, chronic anemia presented to ER with c/o lethargy today. Patient's reported that patient more lethargic today and seemed a little confused and was concerned because patient has presented similarly in the past when he was septic. Currently patient is alert and oriented and denies any complaints. He has ongoing sacral wound that he has been following with [facility] for and patient reports improvement. He states is going to wound clinic every 2 weeks now and his is dressing at home with Aquacel every 2 days. Denies any known fever, chills. Denies any purulent discharge from wound. Patient reports eating and drinking well. Denies nausea, vomiting. States 1 week ago had looser stool noted in ostomy bag which has returned to normal consistency. Reports suprapubic catheter draining clear yellow urine. Denies known fever/chills, diaphoresis, N/V, melena, hematochezia, hematuria, SIERRA, dizziness, syncope, vision changes, neck pain, CP, SOB, orthopnea, palpitations, cough, sore throat, choking, otalgia, rhinorrhea, abdominal pain, increased extremity edema, new rashes. Admission Exam Per Admitting Provider General: no distress, obese Head: normocephalic, atraumatic Eyes: PERRL, EOM's intact, conjunctiva non-injected, anicteric ENT: normal inspection external ears, nose, mucous membranes moist Neck: supple, trachea midline Lungs: clear, no respiratory distress, no wheezing/rhonchi/rales CV: RRR, no murmur, trace pretibial edema Abd: protuberant, normal BS, soft, non-tender, suprapubic catheter in place. +ostomy bag with brown soft stool Ext: no cyanosis, some movement of bilateral hands and arms, BLE paralysis, +intermittent spasm noted LLE, no other extremity abnormal movements noted Neuro: A&O x 3, normal affect Skin: warm, dry; sacral wound without significant erythema, no significant purulent drainage Principal Diagnosis Urinary Tract Infection Sacral wound infection Discharge Exam General: no distress, obese Head: normocephalic, atraumatic Lungs: clear, no respiratory distress, no wheezing/rhonchi/rales CV: RRR, no murmur, trace pretibial edema Abd: protuberant, normal BS, soft, non-tender, suprapubic catheter in place. +ostomy bag with brown soft stool Ext: no cyanosis, some movement of bilateral hands and arms, BLE paralysis, + no other extremity abnormal movements noted Neuro: A&O x 3, normal affect Skin: warm, dry; sacral wound Discharge Data Allergies Allergy/AdvReac Type Severity Reaction Status Date / Time codeine Allergy Severe THROAT Verified 05/22/22 18:39 SWELLS latex Allergy Intermediate Hives Verified 05/22/22 18:39 piperacillin Allergy Intermediate Hives Verified 05/22/22 18:39 Sulfa (Sulfonamide Allergy Intermediate HIVES Verified 05/22/22 18:39 Antibiotics) tazobactam Allergy Intermediate Hives Verified 05/22/22 18:39 aztreonam Allergy Unknown unknown Verified 05/22/22 18:39 metoclopramide [From Reglan] AdvReac Intermediate lethargy Verified 05/22/22 18:39 Consultations 05/22/22 18:42 ED Decision to Admit Stat Ordered Studies 05/22/22 14:39 CT head/brain wo con Stat 05/23/22 14:02 CT abd pelvis wo con Routine Hospital Course (1) Lethargy: Patient is 61-year-old male with PMH 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 diff, HTN, HLD, DM II, chronic anemia presented to ER with lethargy and confusion for 1 day. Patient was brought to the hospital by his . Patient underwent infectious work-up including urine culture, blood culture and superficial wound culture. Urine culture was positive for Pseudomonas which is sensitive to fluoroquinolones. Superficial wound culture was also positive for Pseudomonas . blood culture was negative for any growth. CT abdomen and pelvis was done to evaluate patient's sacral wound which had improved compared to previous admission. Patient's gabapentin dose was decreased and he is baclofen dose frequency was reduced as it could contribute to patient's lethargy. Patient mentation improved with the change in the medication. Patient was discharged home with instruction to follow-up with his PCP with 3-day course of levofloxacin. Total Time Total Time Spent Total Time Spent (In Minutes): 35 Total Time Includes: Examination of the Patient, Discharge Planning, Medication Reconciliation, Communication With Other Providers and Other Discharge Plan Discharge Items Patient Disposition: Home - Home Health Services Reason For Visit: LETHARGY Discharge Diagnosis: 1) Urinary Tract Infection 2) Polypharmacy Condition on Discharge: Fair Activity: Resume your previous activity Non-emergency contact: Primary Care Provider Call non-emergency contact if: you have any medication questions and your symptoms worsen Follow-up/Referrals: [facility] [Other] - 05/26/22 2:30 pm (Date & Time 05/26/2022 2:30 PM Provider Nurys Ocampo RN Department [facility] [place] ) Wilder Stanford MD [Primary Care Provider] - (Date & Time 05/28/2022 12:20 PM Provider Wilder Stanford MD Department [facility] ) Diet: Regular Addtl Attending Provider Instructions: The following medication changes have been made to your regimen: Please decrease the frequency of baclofen to twice daily and at bedtime. Please decrease the dose of gabapentin from 800 mg twice daily to 600 mg twice daily. New prescription has been sent to your pharmacy. Please take levofloxacin 500 mg once a day for next 3 days. Please follow-up with her primary care doctor Pending Studies at Discharge: No Stand-Alone Forms: My [facility] [employer], Smoking Cessation Medications and DC Order Prescriptions: New gabapentin 600 mg Tablet 600 mg PO BID@0600,1800 30 Days Qty: 60 0RF levofloxacin 500 mg tablet 500 mg PO DAILY 3 Days Qty: 3 0RF Continued warfarin 5 mg tablet 5 - 7.5 mg PO UD Rx Instructions: 5mg orally in the evening of MON/WED/FRI 7.5 mg orall in the evening of TU,TH,SAT,SUN escitalopram oxalate 20 mg tablet 20 mg PO QAM Novolin 70/30 U-100 Insulin 100 unit/mL (70-30) suspension 54 unit subcut BIDM allopurinol 100 mg Tablet 100 mg PO BID Rx Instructions: TAKES AT 0600 & 1800 ropinirole 1 mg Tablet 1 mg PO QID Rx Instructions: TAKES AT 0600, 1200, 1800, 2400 ferrous gluconate 324 mg (38 mg iron) Tablet 324 mg PO QAM pantoprazole 40 mg Tablet,Delayed Release (Dr/Ec) 40 mg PO BID magnesium oxide 400 mg (241.3 mg magnesium) Tablet 400 mg PO AMHS Rx Instructions: TAKES AT 1200 & 2400 baclofen 10 mg tablet See Rx Instructions .ROUTE .COMPLEX Rx Instructions: 10 mg orally; TAKES 5 MG TID, THEN 20 MG AT HS. cyclobenzaprine 10 mg tablet 15 mg PO HS Rx Instructions: TAKE 1 &1/2 TABS AT 2400 hyoscyamine sulfate 0.125 mg tablet 0.125 mg PO QPM tizanidine 4 mg tablet 4 mg PO BID Rx Instructions: TAKES AT 1200 & 2400 potassium chloride 10 mEq tablet extended release 10 meq PO BIDM Rx Instructions: take with breakfast and dinner Medical Marijuana See Rx Instructions .ROUTE .COMPLEX Rx Instructions: 7 drops in AM, 10 drops in PM methenamine hippurate 1 gram Tablet 1 g PO BID 30 Days Qty: 60 2RF Rx Instructions: TAKES AT 1200 & 2400 famotidine [Acid Acid Tester (famotidine)] 20 mg Tablet 20 mg PO BID ascorbic acid (vitamin C) [Vitamin C] 500 mg Tablet 250 mg PO TID Rx Instructions: TAKES AT 0600, 1200 & 1800 Lactobacillus acidoph-L.bulgar [Floranex] 1 million cell Tablet 1 tab PO BID nystatin 100,000 unit/gram Powder 1 applic TOPICAL BID PRN (Reason: Rash) Novolin R Regular U-100 Insuln 100 unit/mL Solution See Rx Instructions .ROUTE .COMPLEX Rx Instructions: follow SSI ;TAKES 4 UNITS BEFORE MEALS IF NEEDED. menthol-zinc oxide [Calmoseptine] 0.44-20.6 % Ointment 1 applic TOPICAL QID PRN (Reason: Rash) atorvastatin 40 mg tablet 40 mg PO HS docusate sodium 100 mg Capsule 100 mg PO AMHS Adrien 7-7-1.5 gram Powder In Packet 1 ea PO BID metformin 1,000 mg tablet 1,000 mg PO BIDM levothyroxine 25 mcg tablet 25 mcg PO DAILYBB levetiracetam 500 mg tablet 500 mg PO AMHS ketoconazole 2 % shampoo 1 applic TOPICAL 2XWK Rx Instructions: wash scalp spironolactone 25 mg Tablet 25 mg PO QAM nystatin-triamcinolone 100,000-0.1 unit/g-% cream 1 applic TOPICAL BID Rx Instructions: apply to affected area multivitamin [Daily-Steve] Tablet 1 tab PO DAILY tacrolimus 0.1 % Ointment 1 applic TOPICAL BID PRN (Reason: as directed) Rx Instructions: apply to face,ears and scalp as needed Discontinued gabapentin 800 mg Tablet 800 mg PO BID Rx Instructions: TAKES AT 0600 & 1800 cefdinir 300 mg Capsule 300 mg PO BID Discharge Orders: Discharge Order (Routine); Ordered 05/25/22 Ordered By: Aneudy Frazier/Other Patient Handouts: Managing Type 2 Diabetes, Cancer: Managing Fatigue, Special Foot Care for Diabetes Admission Data Admit Date/Time: 05/22/22 20:07 Attending Provider: Aneudy Campbell Admit Provider: Eladio Jesus Primary Care Provider: Wilder Stanford Other Providers: Eladio Jesus Other Interventions: Discharge Summary Assessment (RN) Last Done: 05/25/22 15:28
--- NOTE | 2022-06-05 06:50 | Coding Query ---
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 Please assist us with the question(s) below: In the record, it states that the patient has a UTI. Please clarify below the cause of the UTI if applicable. Thank you. ( ) The chronic urbina was the cause of the UTI. ( ) Other urinary cath/device was the cause of the UTI. ( X ) UTI, unspecified cause. ( ) Self-catheterization was the cause of the UTI. ( ) Other (Specify): Principal Diagnosis: "that condition established after study, to be chiefly responsible for occasioning the admission of the patient to the hospital for care." Co-Existing Principal Diagnosis: "when two or more diagnoses equally meet the criteria for principal diagnosis as determined by the circumstances of admission, diagnostic work up, and/or therapy provided, and the Alphabetic Index, Tabular List, or another coding guideline does not provide sequencing direction, any one of the diagnoses may be sequenced first." "When the physician has documented what appears to be a current diagnosis in the body of the record, but has not included the diagnosis in the final diagnostic statement, the physician should be asked whether the diagnosis should be added." (Source [facility] 2 QTR90. p3-4) ANNY
== END 2022-05-25 18:57 | disposition home health service (06) | DRG 689 ==
LOC: ED 14:06 → 2W 20:07 → SUATTDRO 20:07 → 2W 05-23 00:03

== ENCOUNTER 2023-02-09 13:13 | Inpatient (IN) ==
[2023-02-09] MEDS ORDERED: SODIUM CHLORIDE 0.9% 1000ML 500 ML IV SCH (14:15)
[2023-02-09] MEDS ORDERED: CEFEPIME 2,000 MG/20 ML VIAL IV STA (14:15)
--- NOTE | 2023-02-09 14:26 | Emergency Department Note ---
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 The patient has a known sacral wound that has been ongoing for many years. He has had an operation on this wound. It never completely closed. In the last 2 years she has developed a new wound in the area of the left buttock below the rectum. This wound has been getting worse despite wound center care. Today at the wound center in [place], he was felt in need of an ER evaluation and likely hospitalization. The patient denies fever or chills. He did have a mini seizure a few days ago which sometimes can indicate infection starting. He has a seizure history and is on Keppra. The patient has a suprapubic Martinez catheter. He is basically bedbound or chair bound. He requires a lift to move from place to place, he cannot assist with transfer. PMHx/PSHx: See Below SOCIAL HISTORY: See Below. PHYSICAL EXAM: GENERAL: Patient is in no acute distress. HEENT: No acute trauma, normocephalic atraumatic, mucous membranes moist, no nasal congestion. NECK: No stridor, no adenopathy, no meningismus, trachea is midline. LUNGS: Clear to auscultation bilaterally, no wheeze, no rhonchi, breath sounds equal. HEART: Tachycardic, regular rhythm, no murmurs. ABDOMEN: Soft, nontender, bowel sounds positive, no peritonitis. Quite obese. Suprapubic Martinez catheter noted. EXTREMITIES: No cyanosis. There is bilateral pedal edema. He does have some soft boots on both legs to prevent ulcer formation. NEUROLOGIC: He is awake and alert. He can move his upper extremities bilaterally. He has some spasticity of the lower extremities but cannot move them on command. SKIN: No jaundice, no diaphoresis. Buttocks: The patient has a large sacral wound with minimal drainage. There is a wound to the left buttock that is quite deep and I do believe I can see bone. There is surrounding erythema and some bloody drainage noted. DIFFERENTIAL DIAGNOSIS: Osteomyelitis, abscess, cellulitis, anemia, bacteremia or sepsis, electrolyte imbalance, UTI, among others. EMERGENCY DEPARTMENT COURSE/PROCEDURES: Prior/Outside records reviewed: Previous ED note ECG per my interpretation: Indication was possible sepsis. The ECG shows a sinus tachycardia with a rate of 108. There is a right bundle branch block. There is some nonspecific ST change. No ST elevation, no PVCs. The QTc is 514. Continuous Cardiac Monitoring per my interpretation: An order was placed for continuous cardiac monitoring. The monitor shows a rate of 110 with sinus tachycardia. Critical Care Note: I have personally spent 53 minutes of critical care time in the direct management of this patient. This includes bedside care, interpretation of diagnostic studies, and testing, discussion with consultants, patient, and family members, and other required patient management activities. This 53 minutes is in excess of all separately billable procedures. MEDICAL DECISION MAKING: There is a moderate leukocytosis, this certainly could be consistent with infection. The patient is anemic but he carries a history of anemia. His hemoglobin today was baseline. There was a normal platelet count. INR was elevated at 3.8, this is above the therapeutic window. No renal failure. Lactic acid level was elevated at 2.8, this is consistent with infection/sepsis. There was no concerning liver enzyme elevation. ECG showed a sinus tachycardia, no ischemia. Procalcitonin level was not not elevated making serious bacterial infection less likely. Chest film per my review showed some potential CHF versus changes from just his body habitus, there was no focal pneumonia. Abdominal and pelvis CT showed cellulitis with some potential osteomyelitis. On exam, the patient's buttock and sacral ulcers were quite deep. I could see bone. A culture was obtained. There was surrounding cellulitis. The patient presented tachycardic. He denied any fever or chills. He was not toxic. The patient received IV saline, 2.5 L. This amount of fluid was given for potential sepsis based on ideal body weight. He received IV cefepime, IV daptomycin and IV Flagyl. I did consult the wound care group here at the hospital. They did see the patient and make some recommendations. I spoke with the patient, he is aware of his findings. He knows he requires a hospital stay, possibly surgical intervention. I did speak with case management, the on-call hospitalist was consulted. DISPOSITION: Patient's presentation and findings warrant a hospital stay. Past Med/Surg History Medical History Anemia Asymptomatic bacteriuria Clostridium difficile infection (Unknown) CVA (cerebral vascular accident) DM type 2 (diabetes mellitus, type 2) Dyslipidemia Dysphagia Elevated lactic acid level Fever History of blood clots History of DVT (deep vein thrombosis) Hypertension Hypotension Ileus Kidney disease Lethargy Leukocytosis Major depressive disorder, recurrent Morbid obesity Obesity Occluded PICC line Positive urine culture Quadriplegia BRAIN INJURY 11 YRS AGO Quadriplegia Sacral decubitus ulcer, stage IV Sacral wound Seizure Seizure-like activity Sepsis SIRS (systemic inflammatory response syndrome) Sleep apnea (Unknown) OXYGEN 2L/MIN NC HS Syncope 57 year old with know quadriplegia and new onset syncope with change in position UTI (urinary tract infection) RECENT [facility] [place] ADMISION-D/C 12/06/20 Weakness Surgical History Chronic suprapubic catheter History of colonoscopy 2010 History of open reduction and internal fixation (ORIF) procedure LEFT FEMUR Insertion of inferior vena caval filter (Unknown) Lithotripsy (Unknown) "laser lithotripsy left ureteral stone 03/17/11 " S/P debridement (09/06/21) Incision and Drainage and Debridement Sacral Tissue Down to Bone, 15cm x 11cm - Agusto Chaudhry, DO 09/06/21 S/P debridement (09/08/21) Excisional Debridement of Sacral Decubitus Ulcer, [id number] Down to Bone - Agusto Chaudhry, DO 09/08/2021. Patient made ASA 4. Ketamine/versed/fentanyl sedation. Tolerated without incident. S/P debridement S/P knee surgery S/P tonsillectomy Suprapubic cystostomy (Unknown) IN PLACE Family History Mother Family history of diabetes mellitus Father Family hx of colon cancer Other No pertinent family history Social History Smoking Status: Unknown if ever smoked Second Hand Exposure: No; Do You Dip or Chew Tobacco: No; Hx Alcohol Use: No Hx Substance Use: No Preferred Language: Tamazight Communication Ability: Effective Visual Impairment: No Limitations Residential Life Director Required: No Beliefs That Will Affect Care: Mormonism Mormonism Beliefs: Zoroastrian marital status: Current Living Situation: Spouse Current Living Situation Comment: Lives with - has care nurse 5x/week, 29/03 caregivers current occupational status: disabled Feels Safe at Home: Yes Physical Activity Frequency Comment: QUADRAPLEGIA C4-5-ABLE TO MOVE ARMS, HANDS Assistive Devices: Hospital Bed, Mechanical Lift, Oxygen - at Night and Wheelchair Allergies Allergies Allergy/AdvReac Type Severity Reaction Status Date / Time codeine Allergy Severe THROAT Verified 05/22/22 18:39 SWELLS latex Allergy Intermediate Hives Verified 05/22/22 18:39 piperacillin Allergy Intermediate Hives Verified 05/22/22 18:39 Sulfa (Sulfonamide Allergy Intermediate HIVES Verified 05/22/22 18:39 Antibiotics) tazobactam Allergy Intermediate Hives Verified 05/22/22 18:39 aztreonam Allergy Unknown unknown Verified 05/22/22 18:39 metoclopramide [From Reglan] AdvReac Intermediate lethargy Verified 05/22/22 18:39 Home Meds Home Medications Medication Instructions Recorded Confirmed allopurinol 100 mg tablet 100 mg PO BID 05/07/18 02/09/23 magnesium oxide 400 mg (241.3 mg 400 mg PO AMHS 05/07/18 02/09/23 magnesium) tablet pantoprazole 40 mg tablet,delayed 40 mg PO BID 05/07/18 02/09/23 release ropinirole 1 mg tablet 1 mg PO QID 05/07/18 02/09/23 escitalopram oxalate 20 mg tablet 20 mg PO QAM 08/21/19 02/09/23 insulin human U-100 NPH-regulr 64 unit subcut BIDM 08/21/19 02/09/23 70-30 mix 100 unit/mL subcutaneous susp (Novolin 70/30 U-100 Insulin) warfarin 5 mg tablet 5 mg PO 4XWK 08/21/19 02/09/23 baclofen 10 mg tablet See Rx Instructions .Route .COMPLEX 09/22/19 02/09/23 cyclobenzaprine 10 mg tablet 15 mg PO HS 03/01/20 02/09/23 hyoscyamine sulfate 0.125 mg tablet 0.125 mg PO QPM 03/01/20 02/09/23 potassium chloride 10 mEq 10 meq PO BIDM 03/01/20 02/09/23 tablet,extended release tizanidine 4 mg tablet 4 mg PO BID 03/01/20 02/09/23 Medical Marijuana See Rx Instructions .Route .COMPLEX 03/26/20 02/09/23 ascorbic acid (vitamin C) 500 mg 250 mg PO TID 12/03/20 02/09/23 tablet (Vitamin C) famotidine 20 mg tablet (Acid 20 mg PO BID 12/03/20 02/09/23 Check Viewer (famotidine)) Lactobacillus acidoph-L.bulgaricus 1 tab PO BID 01/03/21 02/09/23 1 million cell tablet (Floranex) insulin regular human 100 unit/mL See Rx Instructions .Route .COMPLEX 01/03/21 02/09/23 injection solution (Novolin R Regular U-100 Insulin) menthol 0.44 %-zinc oxide 20.6 % 1 applic topical QID PRN Rash 01/03/21 02/09/23 topical ointment (Calmoseptine) nystatin 100,000 unit/gram topical 1 applic topical BID PRN Rash 01/03/21 02/09/23 powder metformin 1,000 mg tablet 1,000 mg PO BIDM 06/14/21 02/09/23 atorvastatin 40 mg tablet 40 mg PO HS 12/31/21 02/09/23 docusate sodium 100 mg capsule 100 mg PO AMHS 12/31/21 02/09/23 levothyroxine 25 mcg tablet 25 mcg PO DAILYBB 02/12/22 02/09/23 ketoconazole 2 % shampoo 1 applic topical 2XWK 05/22/22 02/09/23 levetiracetam 500 mg tablet 500 mg PO AMHS 05/22/22 02/09/23 multivitamin (Daily-Steve tablet) 1 tab PO DAILY 05/22/22 02/09/23 nystatin-triamcinolone 100,000 1 applic topical BID 05/22/22 02/09/23 unit/g-0.1 % topical cream spironolactone 25 mg tablet 25 mg PO QAM 05/22/22 02/09/23 tacrolimus 0.1 % topical ointment 1 applic topical BID PRN as 05/22/22 02/09/23 directed furosemide 40 mg tablet 40 mg PO DAILY 02/09/23 02/09/23 gabapentin 800 mg tablet 800 mg PO BID 02/09/23 02/09/23 warfarin 7.5 mg tablet 7.5 mg PO 3XWK 02/09/23 02/09/23 Previous Rx's Medication Instructions Recorded methenamine hippurate 1 gram tablet 1 g PO BID 30 days #60 tabs 04/02/20 Results & Data (ED) Vital Signs Vital Signs - 24 hr 02/09/23 13:01 02/09/23 13:33 02/09/23 14:34 Temperature 37.3 C Temperature Source Oral Pulse Rate 115 H 119 H Pulse Rate [Right Finger] Pulse Rhythm Regular Pulse Strength Normal Respiratory Rate 20 Respiratory Effort / Characteristics Non-Labored Spontaneous Respiratory Depth Normal Blood Pressure 164/94 H Blood Pressure [Right Arm] Blood Pressure Mean 117 Blood Pressure Mean [Right Arm] Pulse Oximetry 93 Oxygen Delivery Method Room Air Room Air Sepsis Recent Fever Within 48 Hours No Sepsis New/Unexplained Change in Mental Status No Sepsis Action Taken by Nursing No Action Required 02/09/23 14:35 02/09/23 15:06 02/09/23 16:15 Temperature Temperature Source Pulse Rate Pulse Rate [Right Finger] 110 H 106 H 108 H Pulse Rhythm Pulse Strength Respiratory Rate 20 20 16 Respiratory Effort / Characteristics Non-Labored Non-Labored Non-Labored Respiratory Depth Normal Normal Normal Blood Pressure Blood Pressure [Right Arm] 94/63 L 108/71 133/88 Blood Pressure Mean Blood Pressure Mean [Right Arm] 73 83 103 Pulse Oximetry 93 91 93 Oxygen Delivery Method Room Air Room Air Room Air Sepsis Recent Fever Within 48 Hours Sepsis New/Unexplained Change in Mental Status Sepsis Action Taken by Long Term Medications Current Medication List: was personally reviewed by me Laboratory Data Attestation: I reviewed the patient's lab results. 02/09/23 13:50 02/09/23 13:50 Lab Results 02/09/23 02/09/23 02/09/23 Range/Units 13:50 13:50 13:50 WBC 17.83 H (4.8-10.8) K/ul RBC 4.03 L (4.70-6.10) M/uL Hgb 11.3 L (14.0-18.0) g/dl Hct 35.3 L (42.0-52.0) % MCV 87.6 (80.0-100.0) fL MCH 28.0 (25.0-34.0) pg MCHC 32.0 (32.0-36.0) g/dL RDW Std Deviation 60.5 H (36.4-46.3) fL RDW Coeff of Yoseph 18.8 H (11.5-14.5) % Plt Count 315 (130-400) K/uL MPV 9.3 L (9.4-12.4) fL Immature Gran % (Auto) 0.7 % Neut % (Auto) 78.4 % Lymph % (Auto) 12.5 % Carlton % (Auto) 5.6 % Eos % (Auto) 2.4 % Baso % (Auto) 0.4 % Neut # (Auto) 13.98 H (1.40-6.50) K/uL Lymph # (Auto) 2.23 (1.2-3.4) K/uL Carlton # (Auto) 1.00 H (0.11-0.59) K/uL Eos # (Auto) 0.42 (0-0.50) K/uL Baso # (Auto) 0.07 (0-0.2) K/uL Immature Gran # (Auto) 0.13 (0.01-0.20) K/uL PT 38.7 H (9.0-12.0) Seconds INR 3.8 H (0.9-1.1) APTT 66.9 H* (21.0-31.0) Seconds PTT Ratio 2.4 Sodium 137 (136-145) mmol/L Potassium 3.9 (3.5-5.1) mmol/L Chloride 95 L (98-107) mmol/L Carbon Dioxide 33 H (21-32) mmol/L Anion Gap 9 (3-11) BUN 30 H (6-23) mg/dl Creatinine 1.12 (0.6-1.4) mg/dl Est Cr Clr Drug Dosing 98.5 ml/min Est GFR ( Amer) 80.6 ml/min Est GFR (Non-Af Amer) 69.5 ml/min BUN/Creatinine Ratio 26.8 H (10-20) Glucose 145 H (70-99(Fasting)) mg/dl Lactate (0.4-2.0) mmol/L Calcium 9.3 (8.6-10.3) mg/dl Magnesium 1.8 (1.7-2.4) mg/dl Total Bilirubin 0.5 (0.2-1.0) mg/dl Direct Bilirubin 0.0 (0-0.2) mg/dl AST 38 (13-39) U/L ALT 48 (7-52) U/L Alkaline Phosphatase 63 (34-104) U/L Total Creatine Kinase 34 (30-223) U/L Troponin I High Sens 9.6 (0-20) pg/ml Total Protein 7.9 (6.0-8.3) gm/dl Albumin 3.3 L (3.4-5.0) gm/dl Procalcitonin (0-0.5) ng/ml 02/09/23 02/09/23 Range/Units 13:50 14:54 WBC (4.8-10.8) K/ul RBC (4.70-6.10) M/uL Hgb (14.0-18.0) g/dl Hct (42.0-52.0) % MCV (80.0-100.0) fL MCH (25.0-34.0) pg MCHC (32.0-36.0) g/dL RDW Std Deviation (36.4-46.3) fL RDW Coeff of Yoseph (11.5-14.5) % Plt Count (130-400) K/uL MPV (9.4-12.4) fL Immature Gran % (Auto) % Neut % (Auto) % Lymph % (Auto) % Carlton % (Auto) % Eos % (Auto) % Baso % (Auto) % Neut # (Auto) (1.40-6.50) K/uL Lymph # (Auto) (1.2-3.4) K/uL Carlton # (Auto) (0.11-0.59) K/uL Eos # (Auto) (0-0.50) K/uL Baso # (Auto) (0-0.2) K/uL Immature Gran # (Auto) (0.01-0.20) K/uL PT (9.0-12.0) Seconds INR (0.9-1.1) APTT (21.0-31.0) Seconds PTT Ratio Sodium (136-145) mmol/L Potassium (3.5-5.1) mmol/L Chloride (98-107) mmol/L Carbon Dioxide (21-32) mmol/L Anion Gap (3-11) BUN (6-23) mg/dl Creatinine (0.6-1.4) mg/dl Est Cr Clr Drug Dosing ml/min Est GFR ( Amer) ml/min Est GFR (Non-Af Amer) ml/min BUN/Creatinine Ratio (10-20) Glucose (70-99(Fasting)) mg/dl Lactate 2.8 H* (0.4-2.0) mmol/L Calcium (8.6-10.3) mg/dl Magnesium (1.7-2.4) mg/dl Total Bilirubin (0.2-1.0) mg/dl Direct Bilirubin (0-0.2) mg/dl AST (13-39) U/L ALT (7-52) U/L Alkaline Phosphatase (34-104) U/L Total Creatine Kinase (30-223) U/L Troponin I High Sens (0-20) pg/ml Total Protein (6.0-8.3) gm/dl Albumin (3.4-5.0) gm/dl Procalcitonin 0.33 (0-0.5) ng/ml Administered Medications Discontinued Medications Cefepime HCl (Maxipime) 2,000 mg in 20 mls @ 5 mls/min IV NOW STA; Protocol Stop: 02/09/23 14:18 Last Admin: 02/09/23 14:53 Dose: 5 mls/min Documented By: IVÁN Sodium Chloride (Nss 1000ml) 500 mls @ 999 mls/hr IV .Q31M JO Stop: 02/09/23 14:45 Last Infusion: 02/09/23 15:24 Dose: 0 mls/hr Documented By: Admin: 02/09/23 14:53 Dose: 999 mls/hr Documented By: IVÁN Daptomycin 825 mg/ Syringe 16.5 mls @ 8.25 mls/min IV NOW STA; Protocol Stop: 02/09/23 14:33 Last Admin: 02/09/23 15:11 Dose: 8.25 mls/min Documented By: IVÁN Metronidazole (Flagyl) 500 mg in 100 mls @ 100 mls/hr IV NOW STA Stop: 02/09/23 15:32 Last Infusion: 02/09/23 16:04 Dose: 0 mls/hr Documented By: Admin: 02/09/23 15:04 Dose: 100 mls/hr Documented By: IVÁN Sodium Chloride (Nss 1000ml) 2,000 mls @ 999 mls/hr IV .Q2H1M ONE Stop: 02/09/23 16:39 Last Admin: 02/09/23 14:52 Dose: 999 mls/hr Documented By: IVÁN Ioversol (Optiray 320 500ml) 110 ml IV ONCE ONE Stop: 02/09/23 16:51 Last Admin: 02/09/23 16:50 Dose: 110 ml Documented By: KENISHA Imaging Data Radiologist's Impression: Abdomen/Pelvis CT 02/09/23 14:15 CT abd pelvis IV con only CLINICAL HISTORY: sacral wound TECHNIQUE: Helical axial images of the abdomen and pelvis were obtained and displayed. Automated dose lowering techniques and/or adjustment according to patient size were utilized for this exam. This exam was performed with intravenous contrast. CT DOSE: 1732.54 mGy.cm COMPARISON: Comparison is made to CT abdomen pelvis 05/23/2022 FINDINGS: Lower chest: Bibasilar atelectasis versus scarring is seen. Liver: Unremarkable. No focal lesions are seen. Gallbladder and biliary tree: No calcified gallstones. Normal caliber wall. No intra- or extrahepatic biliary ductal dilation. Pancreas: Unremarkable, no focal lesions. Spleen: Unremarkable. Adrenals: Right adrenal nodule is unchanged from prior exam, previously d emonstrated attenuation of the liver edge adenoma. Kidneys and ureters: Nonobstructive stone is seen in the right kidney. Bladder: Percutaneous drainage catheter is seen. Reproductive organs: Unremarkable. Bowel: A colostomy is noted in the left lower quadrant. Lymph nodes Retroperitoneal: Subcentimeter lymph nodes are noted. Pelvic: Unremarkable. Mesenteric: Unremarkable. Peritoneum: Normal. Vessels: An IVC filter is seen. Superficial varices are seen. Abdominal wall: There is an ulcer in the sacrum with foci of gas in contact with the sacral cortex. There is extensive soft tissue thickening without drainable fluid collection. Soft tissue density in the right lower quadrant is compatible with injection granuloma. Bones: There is erosion of the distal sacrum, increased from prior exam, and absence of the coccyx noted. Degenerative changes are seen in the spine and hip joints. IMPRESSION: Subcutaneous gas is in contact with the coccyx, new from prior exam. There is lucency at the tip of the sacrum compatible with erosion. 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 ACT 112: Negative or not required by law. Electronically signed by: Jorge Hernandez M.D. 02/09/2023 5:11 PM Chest X-Ray 02/09/23 14:15 XR chest 1V portable CLINICAL HISTORY: Sepsis TECHNIQUE: Single frontal radiograph of the chest was obtained. Comparison: Comparison is made to chest radiographs 10/21/2022 FINDINGS: No lines and tubes are seen. Calcified aortic knob is seen. Prominence and cephalization of the vasculature is seen. Lungs are underinflated but without keyona airspace opacities. No evidence of pleural effusion or pneumothorax. IMPRESSION: Cardiomegaly and mild pulmonary edema. No keyona pneumonia is seen. ACT 112: Negative or not required by law. Electronically signed by: Jorge Hernandez M.D. 02/09/2023 2:46 PM Discharge Plan Visit Data Chief Complaint: Infection, Wound Stated Complaint: WOUND ED Provider: José Cheema Discharge Problem: Sepsis, Leukocytosis, Cellulitis, Elevated lactic acid level, Sacral decubitus ulcer Patient Disposition: Admitted As Inpatient Condition: Fair Forms Stand Alone Forms: [facility] Prescriptions Prescriptions: No Action warfarin 5 mg tablet 5 mg PO 4XWK Rx Instructions: MON/WED/WED/SAT escitalopram oxalate 20 mg tablet 20 mg PO QAM Novolin 70/30 U-100 Insulin 100 unit/mL (70-30) suspension 64 unit subcut BIDM allopurinol 100 mg Tablet 100 mg PO BID Rx Instructions: TAKES AT 0600 & 1800 ropinirole 1 mg Tablet 1 mg PO QID Rx Instructions: TAKES AT 0600, 1200, 1800, 2400 pantoprazole 40 mg Tablet,Delayed Release (Dr/Ec) 40 mg PO BID magnesium oxide 400 mg (241.3 mg magnesium) Tablet 400 mg PO AMHS Rx Instructions: TAKES AT 1200 & 2400 baclofen 10 mg tablet See Rx Instructions .ROUTE .COMPLEX Rx Instructions: 10 mg orally ;10 MG PO BID AT 6AM, 12 PM, 6PM. THEN 10 MG AT 2400. cyclobenzaprine 10 mg tablet 15 mg PO HS Rx Instructions: TAKE 1 &1/2 TABS AT 2400 hyoscyamine sulfate 0.125 mg tablet 0.125 mg PO QPM tizanidine 4 mg tablet 4 mg PO BID Rx Instructions: TAKES AT 1200 & 2400 potassium chloride 10 mEq tablet extended release 10 meq PO BIDM Rx Instructions: take with breakfast and dinner Medical Marijuana See Rx Instructions .ROUTE .COMPLEX Rx Instructions: 7 drops in AM, 10 drops in PM methenamine hippurate 1 gram Tablet 1 g PO BID 30 Days Qty: 60 2RF Rx Instructions: TAKES AT 1200 & 2400 famotidine [Acid Check Viewer (famotidine)] 20 mg Tablet 20 mg PO BID ascorbic acid (vitamin C) [Vitamin C] 500 mg Tablet 250 mg PO TID Rx Instructions: TAKES AT 0600, 1200 & 1800 Lactobacillus acidoph-L.bulgar [Floranex] 1 million cell Tablet 1 tab PO BID nystatin 100,000 unit/gram Powder 1 applic TOPICAL BID PRN (Reason: Rash) Novolin R Regular U-100 Insuln 100 unit/mL Solution See Rx Instructions .ROUTE .COMPLEX Rx Instructions: follow SSI ;TAKES 4 UNITS BEFORE MEALS IF NEEDED. menthol-zinc oxide [Calmoseptine] 0.44-20.6 % Ointment 1 applic TOPICAL QID PRN (Reason: Rash) atorvastatin 40 mg tablet 40 mg PO HS docusate sodium 100 mg Capsule 100 mg PO AMHS metformin 1,000 mg tablet 1,000 mg PO BIDM levothyroxine 25 mcg tablet 25 mcg PO DAILYBB levetiracetam 500 mg tablet 500 mg PO AMHS ketoconazole 2 % shampoo 1 applic TOPICAL 2XWK Rx Instructions: wash scalp spironolactone 25 mg Tablet 25 mg PO QAM nystatin-triamcinolone 100,000-0.1 unit/g-% cream 1 applic TOPICAL BID Rx Instructions: apply to affected area multivitamin [Daily-Steve] Tablet 1 tab PO DAILY tacrolimus 0.1 % Ointment 1 applic TOPICAL BID PRN (Reason: as directed) Rx Instructions: apply to face,ears and scalp as needed warfarin 7.5 mg Tablet 7.5 mg PO 3XWK Rx Instructions: SUN/TUES/THUS furosemide 40 mg Tablet 40 mg PO DAILY gabapentin 800 mg Tablet 800 mg PO BID Referrals Referrals: Wilder Stanford MD [Primary Care Provider] - Sepsis Qualifiers: Sepsis type: sepsis due to unspecified organism Sepsis acute organ dysfunction status: without acute organ dysfunction Qualified Code(s): A41.9 - Sepsis, unspecified organism Leukocytosis Qualifiers: Leukocytosis type: unspecified Qualified Code(s): D72.829 - Elevated white blood cell count, unspecified Cellulitis Qualifiers: Site of cellulitis: buttock Qualified Code(s): L03.317 - Cellulitis of buttock Sacral decubitus ulcer Qualifiers: Pressure injury stage: unspecified pressure injury stage Qualified Code(s): L89.159 - Pressure ulcer of sacral region, unspecified stage
[2023-02-09] MEDS ORDERED: DAPTOmycin 825 MG in SYRINGE 0 ML IV STA (14:32)
[2023-02-09] MEDS ORDERED: metroNIDAZOLE 500 MG/100 ML BAG IV STA (14:33)
[2023-02-09] MEDS ORDERED: SODIUM CHLORIDE 0.9% 1000ML 2,000 ML IV ONE (14:39)
--- NOTE | 2023-02-09 14:47 | XRay Report ---
XR chest 1V portable CLINICAL HISTORY: Sepsis TECHNIQUE: Single frontal radiograph of the chest was obtained. Comparison: Comparison is made to chest radiographs 10/21/2022 FINDINGS: No lines and tubes are seen. Calcified aortic knob is seen. Prominence and cephalization of the vascu lature is seen. Lungs are underinflated but without keyona airspace opacities. No evidence of pleural effusion or pneumothorax. IMPRESSION: Cardiomegaly and mild pulmonary edema. No keyona pneumonia is seen. ACT 112: Negative or not required by law. Electronically signed by: Jorge Hernandez M.D. 02/09/2023 2:46 PM
[2023-02-09 14:49] LABS: Basophils # (auto) 0.07 K/uL (0-0.2); Basophils % (auto) 0.4 %; Eosinophils # (auto) 0.42 K/uL (0-0.50); Eosinophils % (auto) 2.4 %; Hematocrit (blood only) 35.3 % (42.0-52.0); Hemoglobin 11.3 g/dl (14.0-18.0); Immature Granulocytes # (auto) 0.13 K/uL (0.01-0.20); Immature Granulocytes % (auto) 0.7 %; Lymphocytes # (auto) 2.23 K/uL (1.2-3.4); Lymphocytes % (auto) 12.5 %; Mean Corpuscular Volume 87.6 fL (80.0-100.0); Mean Platelet Volume 9.3 fL (9.4-12.4); Monocytes % (auto) 5.6 %; Neutrophils # (auto) 13.98 K/uL (1.40-6.50); Neutrophils % (auto) 78.4 %; Platelet Count 315 K/uL (130-400); RDW Coefficient of Variation 18.8 % (11.5-14.5); RDW Standard Deviation 60.5 fL (36.4-46.3); Red Blood Count 4.03 M/uL (4.70-6.10); White Blood Count 17.83 K/ul (4.8-10.8)
[2023-02-09 15:04] LABS: Albumin Level 3.3 gm/dl (3.4-5.0); BUN Creatinine Ratio 26.8 (10-20); Bilirubin,Total 0.5 mg/dl (0.2-1.0); Calcium 9.3 mg/dl (8.6-10.3); Creatinine Clr Calc Pharmacy 98.5 ml/min; Est GFR (African American) 80.6 ml/min; Est GFR (Non-African American) 69.5 ml/min; Magnesium 1.8 mg/dl (1.7-2.4); Potassium 3.9 mmol/L (3.5-5.1); Total Protein 7.9 gm/dl (6.0-8.3)
[2023-02-09 15:10] LABS: Troponin I High Sensitivity 9.6 pg/ml (0-20)
[2023-02-09 15:27] LABS: INR 3.8 (0.9-1.1); Partial Thromboplastin Ratio 2.4; Prothrombin Time 38.7 Seconds (9.0-12.0)
[2023-02-09 15:40] LABS: Partial Thromboplastin Time 66.9 Seconds (21.0-31.0)
[2023-02-09] MEDS ORDERED: OPTIRAY 320 500ml IV ONE (16:50)
--- NOTE | 2023-02-09 17:12 | CT Scan Report ---
CT abd pelvis IV con only CLINICAL HISTORY: sacral wound TECHNIQUE: Helical axial images of the abdomen and pelvis were obtained and displayed. Automated dose lowering techniques and/or adjustment according to patient size were utilized for this exam. This e xam was performed with intravenous contrast. CT DOSE: 1732.54 mGy.cm COMPARISON: Comparison is made to CT abdomen pelvis 05/23/2022 FINDINGS: Lower chest: Bibasilar atelectasis versus scarring is seen. Liver: Unremarkable. No focal lesions are seen. Gallbladder and biliary tree: No calcified gallstones. Normal caliber wall. No intra- or extrahepatic biliary ductal dilation. Pancreas: Unremarkable, no focal lesions. Spleen: Unremarkable. Adrenals: Right adrenal nodule is unchanged from prior exam, previously demonstrated attenuation of t he liver edge adenoma. Kidneys and ureters: Nonobstructive stone is seen in the right kidney. Bladder: Percutaneous drainage catheter is seen. Reproductive organs: Unremarkable. Bowel: A colostomy is noted in the left lower quadrant. Lymph nodes Retroperitoneal: Subcentimeter lymph nodes are noted. Pelvic: Unremarkable. Mesenteric: Unremarkable. Peritoneum: Normal. Vessels: An IVC filter is seen. Superficial varices are seen. Abdominal wall: There is an ulcer in the sacrum with foci of gas in contact with the sacral cortex. T here is extensive soft tissue thickening without drainable fluid collection. Soft tissue density in t he right lower quadrant is compatible with injection granuloma. Bones: There is erosion of the distal sacrum, increased from prior exam, and absence of the coccyx no heidy. Degenerative changes are seen in the spine and hip joints. IMPRESSION: Subcutaneous gas is in contact with the coccyx, new from prior exam. There is lucency at the tip of t he sacrum compatible with erosion. 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 ACT 112: Negative or not required by law. Electronically signed by: Jorge Hernandez M.D. 02/09/2023 5:11 PM
--- NOTE | 2023-02-09 17:19 | History & Physical Report ---
Date of Service February 09, 2023 Assessment & Plan (1) Sepsis: (2) Sacral decubitus ulcer: (3) Left perineal ischial pressure ulcer: (4) Quadriplegia: (5) Neurogenic bladder: (6) Seizure: (7) DM type 2 (diabetes mellitus, type 2): Plan This is a 62-year-old male who has significant past medical history of quadriplegia secondary to traumatic accident years ago, neurogenic bladder with suprapubic catheter, chronic stage IV decubitus ulcer over the past 10 years follows [facility] wound clinic, insulin-dependent T2DM, CKD stage III in setting of diabetic nephropathy, morbid obesity, HTN, seizure disorder, iron deficiency anemia, MGUS followed with hematology, history of VRE, depression, coagulation disorder on chronic Coumadin therapy who presents to ED secondary to referral by [facility] wound clinic due to worsening sacral wound. Patient meets criteria for sepsis in setting of leukocytosis and tachycardia. Source of infection likely in setting of wound. Wound culture was obtained by ED physician. Blood culture sent. Patient with lactic acidosis of 2.8. Sepsis Stage IV decubitus ulcer Left ischial wound Admit to PCU Broad-spectrum antibiotics with IV daptomycin, cefepime and Flagyl based on previous cultures as discussed with ED physician and pharmacist Obtain CK, hold statin in setting of Dapto use Patient will need infectious disease consult Wound care nurse already saw and evaluated patient, wound image evaluated General surgery consult placed - pt previously debridement with Dr. Chaudhry Pt received 2.5L of IVF in ED Gentle IV fluid 125 cc/h for additional 1 L Monitor lactate Hold Lasix for now, consider resuming in a.m. or when appropriate N.p.o. after midnight in event debridement to take place in a.m. Seizure d/o pt on [facility] pt reports seizure like activity on wednesday, no missed medications Insulin-dependent T2DM NPH and NovoLog per protocol Consult assuming pharmacist for assistance in setting of sepsis a1c 6.6 on 01/20/23 Neurogenic bladder Suprapubic catheter in place History of recurrent UTIs Continue methenamine hippurate Colostomy status Patient with colostomy in place to prevent wound soiling Continue routine ostomy care Chronic anticoagulation 2/2 coagulation disorder Supratherapeutic INR hold warfarin today, repeat INR in a.m. Chronic Quadraplegia 2/2 traumatic accident DVT ppx: on warfarin,hold this evening, repeat INR in a.m. Dispo: PCU, npo after midnight in event procedure in a.m., consult Gen Surg FULL CODE PCP: Abdoulaye Pt was seen and examined in collaboration with Dr. Juarez, please see addendum A total of 75 was spent coordinating, documenting, and providing care for this patient excluding time spent in the performance of separately billed services. This included personally viewing all current laboratories and imaging studies, medication reconciliation, outpatient chart review, and discussion with specialists. History of Present Illness Chief Complaint: Referred by wound clinic due to worsened sacral wound. Primary Care Provider: Wilder Stanford MD This is a 62-year-old male who has significant past medical history of quadriplegia secondary to traumatic accident years ago, neurogenic bladder with suprapubic catheter, chronic stage IV decubitus ulcer over the past 10 years follows [facility] wound clinic, insulin-dependent T2DM, CKD stage III in setting of diabetic nephropathy, morbid obesity, HTN, seizure disorder, iron deficiency anemia, MGUS followed with hematology, history of VRE, depression, coagulation disorder on chronic Coumadin therapy who presents to ED secondary to referral by [facility] wound clinic due to worsening sacral wound. He states over the last several days he had noticed increased drainage out of his wound requiring the change dressing twice daily where previously only required once daily changes. Suffering from sacral wound for many years. Back in 2020 he required a surgical debridement by Dr. Chaudhry in which the wound never entirely healed. Over the last 2 years he has been following with [facility] wound center and also noted a new area of the left buttock below the rectum. Due to worsening of the wound care center recommended referral to ER. He also reports that he had episode of seizure over the weekend on Wednesday that lasted a couple minutes. He has not missed any doses of his Keppra. Last time this occurred was in setting of infection. He follows with [facility] neurology. In ED patient met criteria for sepsis secondary to leukocytosis and tachycardia. Wound care nurse evaluated wound and filled both wounds with Aquacel AG and Optifoam. It is recommended for surgical debridement. Sharp bone was found and sacral wound. Wound bed 100% nonviable tissue. Left ischial wound was difficult to assess. Patient is mostly bedbound due to the wound but does get out of bed for a couple hours a day. Again he has a chronic suprapubic catheter changed at beginning of month as well as a colostomy to prevent soilage of wound. He has been compliant with his medications. Allergies Allergy/AdvReac Type Severity Reaction Status Date / Time codeine Allergy Severe THROAT Verified 05/22/22 18:39 SWELLS latex Allergy Intermediate Hives Verified 05/22/22 18:39 piperacillin Allergy Intermediate Hives Verified 05/22/22 18:39 Sulfa (Sulfonamide Allergy Intermediate HIVES Verified 05/22/22 18:39 Antibiotics) tazobactam Allergy Intermediate Hives Verified 05/22/22 18:39 aztreonam Allergy Unknown unknown Verified 05/22/22 18:39 metoclopramide [From Reglan] AdvReac Intermediate lethargy Verified 05/22/22 18:39 Home Medications Medication Instructions Recorded Confirmed Type allopurinol 100 mg tablet 100 mg PO BID 05/07/18 02/09/23 History magnesium oxide 400 mg (241.3 mg 400 mg PO AMHS 05/07/18 02/09/23 History magnesium) tablet pantoprazole 40 mg tablet,delayed 40 mg PO BID 05/07/18 02/09/23 History release ropinirole 1 mg tablet 1 mg PO QID 05/07/18 02/09/23 History escitalopram oxalate 20 mg tablet 20 mg PO QAM 08/21/19 02/09/23 History insulin human U-100 NPH-regulr 64 unit subcut BIDM 08/21/19 02/09/23 History 70-30 mix 100 unit/mL subcutaneous susp (Novolin 70/30 U-100 Insulin) warfarin 5 mg tablet 5 mg PO 4XWK 08/21/19 02/09/23 History baclofen 10 mg tablet See Rx Instructions .Route .COMPLEX 09/22/19 02/09/23 History cyclobenzaprine 10 mg tablet 15 mg PO HS 03/01/20 02/09/23 History hyoscyamine sulfate 0.125 mg tablet 0.125 mg PO QPM 03/01/20 02/09/23 History potassium chloride 10 mEq 10 meq PO BIDM 03/01/20 02/09/23 History tablet,extended release tizanidine 4 mg tablet 4 mg PO BID 03/01/20 02/09/23 History Medical Marijuana See Rx Instructions .Route .COMPLEX 03/26/20 02/09/23 History methenamine hippurate 1 gram tablet 1 g PO BID 30 days #60 tabs 04/02/20 02/09/23 Rx ascorbic acid (vitamin C) 500 mg 250 mg PO TID 12/03/20 02/09/23 History tablet (Vitamin C) famotidine 20 mg tablet (Acid 20 mg PO BID 12/03/20 02/09/23 History Emergency Room Tech (famotidine)) Lactobacillus acidoph-L.bulgaricus 1 tab PO BID 01/03/21 02/09/23 History 1 million cell tablet (Floranex) insulin regular human 100 unit/mL See Rx Instructions .Route .COMPLEX 01/03/21 02/09/23 History injection solution (Novolin R Regular U-100 Insulin) menthol 0.44 %-zinc oxide 20.6 % 1 applic topical QID PRN Rash 01/03/21 02/09/23 History topical ointment (Calmoseptine) nystatin 100,000 unit/gram topical 1 applic topical BID PRN Rash 01/03/21 02/09/23 History powder metformin 1,000 mg tablet 1,000 mg PO BIDM 06/14/21 02/09/23 History atorvastatin 40 mg tablet 40 mg PO HS 12/31/21 02/09/23 History docusate sodium 100 mg capsule 100 mg PO AMHS 12/31/21 02/09/23 History levothyroxine 25 mcg tablet 25 mcg PO DAILYBB 02/12/22 02/09/23 History ketoconazole 2 % shampoo 1 applic topical 2XWK 05/22/22 02/09/23 History levetiracetam 500 mg tablet 500 mg PO AMHS 05/22/22 02/09/23 History multivitamin (Daily-Steve tablet) 1 tab PO DAILY 05/22/22 02/09/23 History nystatin-triamcinolone 100,000 1 applic topical BID 05/22/22 02/09/23 History unit/g-0.1 % topical cream spironolactone 25 mg tablet 25 mg PO QAM 05/22/22 02/09/23 History tacrolimus 0.1 % topical ointment 1 applic topical BID PRN as 05/22/22 02/09/23 History directed furosemide 40 mg tablet 40 mg PO BID17 02/09/23 02/09/23 History gabapentin 600 mg tablet 600 mg PO BID 02/09/23 02/09/23 History warfarin 7.5 mg tablet 7.5 mg PO 3XWK 02/09/23 02/09/23 History Past Med/Surg History Medical History Anemia Asymptomatic bacteriuria Clostridium difficile infection (Unknown) CVA (cerebral vascular accident) DM type 2 (diabetes mellitus, type 2) Dyslipidemia Dysphagia Elevated lactic acid level Fever History of blood clots History of DVT (deep vein thrombosis) Hypertension Hypotension Ileus Kidney disease Lethargy Leukocytosis Major depressive disorder, recurrent Morbid obesity Obesity Occluded PICC line Positive urine culture Quadriplegia BRAIN INJURY 11 YRS AGO Quadriplegia Sacral decubitus ulcer, stage IV Sacral wound Seizure Seizure-like activity Sepsis SIRS (systemic inflammatory response syndrome) Sleep apnea (Unknown) OXYGEN 2L/MIN NC HS Syncope 57 year old with know quadriplegia and new onset syncope with change in position UTI (urinary tract infection) RECENT [facility] ADMISION-D/C 12/06/20 Weakness Surgical History Chronic suprapubic catheter History of colonoscopy 2010 History of open reduction and internal fixation (ORIF) procedure LEFT FEMUR Insertion of inferior vena caval filter (Unknown) Lithotripsy (Unknown) "laser lithotripsy left ureteral stone 03/17/11 " S/P debridement (09/06/21) Incision and Drainage and Debridement Sacral Tissue Down to Bone, 15cm x 11cm - Agusto Chaudhry, DO 09/06/21 S/P debridement (09/08/21) Excisional Debridement of Sacral Decubitus Ulcer, [id number] Down to Bone - Agusto Chaudhry, DO 09/08/2021. Patient made ASA 4. Ketamine/versed/fentanyl sedation. Tolerated without incident. S/P debridement S/P knee surgery S/P tonsillectomy Suprapubic cystostomy (Unknown) IN PLACE Family History Mother Family history of diabetes mellitus Father Family hx of colon cancer Other No pertinent family history Social History Smoking Status: Unknown if ever smoked Second Hand Exposure: No; Do You Dip or Chew Tobacco: No; Hx Alcohol Use: No Hx Substance Use: No Preferred Language: Kyrgyz Communication Ability: Effective Visual Impairment: No Limitations Pitch Worker Required: No Beliefs That Will Affect Care: Advent Advent Beliefs: Hindu marital status: Current Living Situation: Spouse Current Living Situation Comment: Lives with - has care nurse 5x/week, 29/03 caregivers current occupational status: disabled Feels Safe at Home: Yes Physical Activity Frequency Comment: QUADRAPLEGIA C4-5-ABLE TO MOVE ARMS, HANDS Assistive Devices: Hospital Bed, Mechanical Lift, Oxygen - at Night and Wheelchair Review of Systems Review of Systems: All systems reviewed & are unremarkable except as noted in HPI & below Physical Exam Physical Exam: Constitutional: WD/WN, morbidly obese, vitals as above, NAD, lying in bed, pleasant, conversing easily Head: Normocephalic, Atraumatic Eyes: PERRL, conjunctivae normal, anicteric sclerae ENMT: external ear and nose normal, oropharynx normal Neck: trachea midline, no thyromegaly normal visual inspection Respiratory: normal respiratory effort, lungs clear to auscultation, no wheeze, rales, rhonchi. Normal insp/exp effort, no accessory muscle use Cardiovascular: RRR, no murmur, no edema Vessels: no JVD or carotid bruit Chest: normal inspection of chest Abdomen:obese abd, +L midline colostomy with brown stool output, normal bowel sounds, soft, nontender, no hepatosplenomegaly Musculoskeletal: no cyanosis or clubbing, +quad with limited movement to upper ext Skin: no rashes, warm and dry normal turgor Neurologic: PERRL, , no face palsy, no dysarthria CN's II-XI intact bilaterally and moves all extremities Psychiatric: A+Ox3, euthymic affect Lymphatic: no cervical or axillary lymphadenopathy : +suprapubic cath no surrounding erythema or drainage, urbina bag with clear urine Results & Data Results & Data Vital Signs (Past 12 Hours) Vital Signs Temp Pulse Pulse Resp BP BP Pulse Ox 02/09/23 16:15 108 H 16 133/88 93 02/09/23 15:06 106 H 20 108/71 91 02/09/23 14:35 110 H 20 94/63 L 93 02/09/23 14:34 02/09/23 13:33 119 H 02/09/23 13:01 37.3 C 115 H 20 164/94 H 93 O2 Del Method 02/09/23 16:15 Room Air 02/09/23 15:06 Room Air 02/09/23 14:35 Room Air 02/09/23 14:34 Room Air 02/09/23 13:33 02/09/23 13:01 Room Air Diagnostic Findings Abdomen/Pelvis CT 02/09/23 14:15 CT abd pelvis IV con only CLINICAL HISTORY: sacral wound TECHNIQUE: Helical axial images of the abdomen and pelvis were obtained and displayed. Automated dose lowering techniques and/or adjustment according to patient size were utilized for this exam. This exam was performed with intravenous contrast. CT DOSE: 1732.54 mGy.cm COMPARISON: Comparison is made to CT abdomen pelvis 05/23/2022 FINDINGS: Lower chest: Bibasilar atelectasis versus scarring is seen. Liver: Unremarkable. No focal lesions are seen. Gallbladder and biliary tree: No calcified gallstones. Normal caliber wall. No intra- or extrahepatic biliary ductal dilation. Pancreas: Unremarkable, no focal lesions. Spleen: Unremarkable. Adrenals: Right adrenal nodule is unchanged from prior exam, previously demonstrated attenuation of the liver edge adenoma. Kidneys and ureters: Nonobstructive stone is seen in the right kidney. Bladder: Percutaneous drainage catheter is seen. Reproductive organs: Unremarkable. Bowel: A colostomy is noted in the left lower quadrant. Lymph nodes Retroperitoneal: Subcentimeter lymph nodes are noted. Pelvic: Unremarkable. Mesenteric: Unremarkable. Peritoneum: Normal. Vessels: An IVC filter is seen. Superficial varices are seen. Abdominal wall: There is an ulcer in the sacrum with foci of gas in contact with the sacral cortex. There is extensive soft tissue thickening without drainable fluid collection. Soft tissue density in the right lower quadrant is compatible with injection granuloma. Bones: There is erosion of the distal sacrum, increased from prior exam, and absence of the coccyx noted. Degenerative changes are seen in the spine and hip joints. IMPRESSION: Subcutaneous gas is in contact with the coccyx, new from prior exam. There is lucency at the tip of the sacrum compatible with erosion. 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 ACT 112: Negative or not required by law. Electronically signed by: Jorge Hernandez M.D. 02/09/2023 5:11 PM Chest X-Ray 02/09/23 14:15 XR chest 1V portable CLINICAL HISTORY: Sepsis TECHNIQUE: Single frontal radiograph of the chest was obtained. Comparison: Comparison is made to chest radiographs 10/21/2022 FINDINGS: No lines and tubes are seen. Calcified aortic knob is seen. Prominence and cephalization of the vasculature is seen. Lungs are underinflated but without keyona airspace opacities. No evidence of pleural effusion or pneumothorax. IMPRESSION: Cardiomegaly and mild pulmonary edema. No keyona pneumonia is seen. ACT 112: Negative or not required by law. Electronically signed by: Jorge Hernandez M.D. 02/09/2023 2:46 PM Medications Administered Medication List Discontinued Medications Cefepime HCl (Maxipime) 2,000 mg in 20 mls @ 5 mls/min IV NOW STA; Protocol Stop: 02/09/23 14:18 Last Admin: 02/09/23 14:53 Dose: 5 mls/min Documented By: NRB Sodium Chloride (Nss 1000ml) 500 mls @ 999 mls/hr IV .Q31M JO Stop: 02/09/23 14:45 Last Infusion: 02/09/23 15:24 Dose: 0 mls/hr Documented By: Admin: 02/09/23 14:53 Dose: 999 mls/hr Documented By: IVÁN Daptomycin 825 mg/ Syringe 16.5 mls @ 8.25 mls/min IV NOW STA; Protocol Stop: 02/09/23 14:33 Last Admin: 02/09/23 15:11 Dose: 8.25 mls/min Documented By: IVÁN Metronidazole (Flagyl) 500 mg in 100 mls @ 100 mls/hr IV NOW STA Stop: 02/09/23 15:32 Last Infusion: 02/09/23 16:04 Dose: 0 mls/hr Documented By: Admin: 02/09/23 15:04 Dose: 100 mls/hr Documented By: NRB Sodium Chloride (Nss 1000ml) 2,000 mls @ 999 mls/hr IV .Q2H1M ONE Stop: 02/09/23 16:39 Last Admin: 02/09/23 14:52 Dose: 999 mls/hr Documented By: IVÁN Ioversol (Optiray 320 500ml) 110 ml IV ONCE ONE Stop: 02/09/23 16:51 Last Admin: 02/09/23 16:50 Dose: 110 ml Documented By: KENISHA ECG Rate (beats per minute): 108 Rhythm: sinus tachycardia Additional Comments: qtc 514ms COVID-19 Results Results COVID-19 Adm Lab Results: RBC 4.03 M/uL (4.70-6.10) L 02/09/23 WBC 17.83 K/ul (4.8-10.8) H 02/09/23 Hgb 11.3 g/dl (14.0-18.0) L 02/09/23 Hct 35.3 % (42.0-52.0) L 02/09/23 Plt Count 315 K/uL (130-400) 02/09/23 Neutrophils (%) (Auto) 78.4 % 02/09/23 Lymphocytes (%) (Auto) 12.5 % 02/09/23 Monocytes # (Auto) 1.00 K/uL (0.11-0.59) H 02/09/23 Eosinophils # (Auto) 0.42 K/uL (0-0.50) 02/09/23 Immature Granulocyte % (Auto) 0.7 % 02/09/23 Neutrophils # (Auto) 13.98 K/uL (1.40-6.50) H 02/09/23 Lymphocytes # (Auto) 2.23 K/uL (1.2-3.4) 02/09/23 Monocytes # (Auto) 1.00 K/uL (0.11-0.59) H 02/09/23 Eosinophils # (Auto) 0.42 K/uL (0-0.50) 02/09/23 Basophils # (Auto) 0.07 K/uL (0-0.2) 02/09/23 Immature Granulocyte # (Auto) 0.13 K/uL (0.01-0.20) 3 Na 137 mmol/L (136-145) 02/09/23 K 3.9 mmol/L (3.5-5.1) 02/09/23 Cl 95 mmol/L (98-107) L 02/09/23 CO2 33 mmol/L (21-32) H 02/09/23 Anion Gap 9 (3-11) 02/09/23 BUN 30 mg/dl (6-23) H 02/09/23 Creatinine 1.12 mg/dl (0.6-1.4) 02/09/23 BUN/Creatinine Ratio 26.8 (10-20) H 02/09/23 Glucose Level 145 mg/dl (70-99(Fasting)) H 02/09/23 Ca 9.3 mg/dl (8.6-10.3) 02/09/23 Total Bilirubin 0.5 mg/dl (0.2-1.0) 02/09/23 Direct Bilirubin 0.0 mg/dl (0-0.2) 02/09/23 AST/SGOT 38 U/L (13-39) 02/09/23 ALT/SGPT 48 U/L (7-52) 02/09/23 Alkaline Phosphatase 63 U/L (34-104) 02/09/23 Total Protein 7.9 gm/dl (6.0-8.3) 02/09/23 Albumin 3.3 gm/dl (3.4-5.0) L 02/09/23 Total CK 34 U/L (30-223) 02/09/23 Procalcitonin 0.33 ng/ml (0-0.5) 02/09/23 PTT 66.9 Seconds (21.0-31.0) H* 02/09/23 INR 3.8 (0.9-1.1) H 02/09/23 SARS-CoV-2, RNA, NAAT NEGATIVE (NEGATIVE) 02/09/23 Chest X-Ray 02/09/23 Code Status & VTE Plan Code Status FULL CODE VTE Prophylaxis Plan VTE Prophylaxis will be ordered: No Reason for no VTE drug order: Treatment not indicated Supervising Physician Co-Signing Physician Notes Attending addendum 62-year-old obese male with quadriplegia with sacral decubiti ulcers, neurogenic bladder with suprapubic catheter and colostomy status including significant other comorbid conditions as mentioned in H&P apparently was noted to have increasing drainage from the wound with foul smells and generalized weakness. No fever and no chills and no sweating but has had 1 episode of seizures as per the patient Noted to have worsening sacral decubiti which might require debridement with increasing white count and sepsis Started with broad-spectrum antibiotics and was admitted to the hospital for continuation of care On examination Morbidly obese, lying in bed without any acute distress Hemodynamically stable with minimal tachycardia at 108 and afebrile Chestdecreased breath sounds bilaterally HeartS1, S2 regular Abdomen -colostomy and suprapubic catheter site are unremarkable, bowel sound present Decubiti ulcers-as in the pictures Likely stage 4 and may have bone involvement with osteomyelitis Has been started on intravenous daptomycin, cefepime and Flagyl with ID consult down the line Agree with assessment and plan as outlined above by Amber Juarez (1) Sepsis Sepsis acute organ dysfunction status: without acute organ dysfunction Sepsis type: sepsis due to unspecified organism Qualified Code(s): A41.9 - Sepsis, unspecified organism (2) Sacral decubitus ulcer Pressure injury stage: unspecified pressure injury stage Qualified Code(s): L89.159 - Pressure ulcer of sacral region, unspecified stage
--- NOTE | 2023-02-09 19:46 | Surgery Consultation ---
Date of Consultation February 09, 2023 Assessment & Plan (1) Sacral decubitus ulcer: Patient has been admitted on the hospitalist service secondary to sepsis and his sacral wound. His care has been as follows: Blood and wound cultures have been sent Patient has been resuscitated with intravenous fluids which continue Broad-spectrum antibiotics in the form of cefepime, daptomycin, and Flagyl have been initiated. He should continue and can be tailored based on his clinical response as well as pending culture data Serial labs are being followed I discussed case with my attending physician Dr. Srivastava. He will evaluate the patient on 02/10/2023 to determine the timing of any potential surgical debrideme nt Continue measures to offload patient's wounds Patient does take Coumadin as an outpatient and this has been held. Would be preferable to have the INR corrected prior to undergoing any surgical intervention Additional recommendations will be forthcoming following attending physicians review of the patient's wound and his clinical course as it unfolds (2) Left perineal ischial pressure ulcer: Supervising Physician Co-Signing Physician Notes Dr Srivastava- I reviewed pts history, studies and discussed with Chris Cartwright as his note states will consider debridement at some point- will need wound vac likely. ID consult suggested will be very difficult to heal as he has bone involvement History of Present Illness Reason for Consultation: Sacral wound History of Present Illness This is a 62-year-old male who is a quadriplegic secondary to a traumatic accident many years ago. As result of this accident patient has a neurogenic bladder with chronic suprapubic catheter and a chronic stage IV sacral decubitus ulcer which he has had for approximately 10 years and he follows at the [facility] wound clinic in [facility]. Patient was referred to the emergency department by the wound clinic at [facility] due to worsening appearance of the sacral wound. The patient says that over the past several days he has noted some on and off bleeding which appears to be worse than usual from his sacral wound. To the best of his knowledge he did not have any pus or purulent drainage. He does note some tenderness in the area of the wound but said it does not have a markedly increased amount of pain. Patient says that he has not had any fevers, shakes, or chills. He denies any nausea or vomiting. Patient says that he does take cefdinir daily but this is a prophylactic ant ibiotic due to his suprapubic catheter. Patient also notes that he takes Coumadin for history of blood clots and he did take his dose the evening of 02/08/2023. The patient further added that he had a seizure approximately 2 days ago. He does take Keppra for history of seizure disorder and reports that he has not missed any doses of this medication. He does note that the most recent time he had any type of seizure activity was in the setting of a wound infection. In the emergency department the patient was evaluated by the wound care nurse and the patient had his wound evaluated and it was packed with Aquacel Ag and Optifoam. They felt surgical evaluation was warranted for possible debridement. Since arrival to the hospital the patient has had labs and imaging which independent reviewed. Patient underwent a chest x-ray that showed no evidence of pneumonia. A CT scan of the abdomen pelvis was performed. This showed the patient had an ulceration in the sacral region with a foci of gas which was in contact with the sacral cortex. There were no notable drainage fluids collections. There was erosion of the distal sacrum noted. A comparison CT scan from 05/23/2022 was reviewed. On this study the patient's ulceration did not extend to bone at that time. Labs today included a CBC were white blood cell count was 17.8 hemoglobin and hematocrit were 11.3 and 35.3. Platelet co unt was normal. Patient's INR is 3.8. Chemistry profile showed sodium and potassium are both normal. The patient's BUN had a slight elevation at 30 and his creatinine was normal at 1.1. Lactic acid level was elevated at 2.4. A procalcitonin level was normal. A COVID test was negative. The patient's records at [facility] were reviewed and the patient was most recently admitted to [facility] from December 31, 2021 through January 13, 2022. During this admission patient did have his sacral wounds evaluated by surgery. He was seen by [facility] general surgery at that time and they recommended local wound care with chemical debridement without the need for surgical intervention. It is also noteworthy to mention that the patient was seen by Dr. Agusto Chaudhry in September 2021 during a hospital admission and on September 06, 2021, September 08, 2021 and September 16, 2021 Dr. Chaudhry performed an excisional debridements of a sacral ulcer down to the muscle level. At the time of my interview the patient was resting comfortably in bed and he was in no distress. Allergies Allergy/AdvReac Type Severity Reaction Status Date / Time codeine Allergy Severe THROAT Verified 05/22/22 18:39 SWELLS latex Allergy Intermediate Hives Verified 05/22/22 18:39 piperacillin Allergy Intermediate Hives Verified 05/22/22 18:39 Sulfa (Sulfonamide Allergy Intermediate HIVES Verified 05/22/22 18:39 Antibiotics) tazobactam Allergy Intermediate Hives Verified 05/22/22 18:39 aztreonam Allergy Unknown unknown Verified 05/22/22 18:39 metoclopramide [From Reglan] AdvReac Intermediate lethargy Verified 05/22/22 18:39 Home Medications Medication Instructions Recorded Confirmed Type allopurinol 100 mg tablet 100 mg PO BID 05/07/18 02/09/23 History magnesium oxide 400 mg (241.3 mg 400 mg PO AMHS 05/07/18 02/09/23 History magnesium) tablet pantoprazole 40 mg tablet,delayed 40 mg PO BID 05/07/18 02/09/23 History release ropinirole 1 mg tablet 1 mg PO QID 05/07/18 02/09/23 History escitalopram oxalate 20 mg tablet 20 mg PO QAM 08/21/19 02/09/23 History insulin human U-100 NPH-regulr 64 unit subcut BIDM 08/21/19 02/09/23 History 70-30 mix 100 unit/mL subcutaneous susp (Novolin 70/30 U-100 Insulin) warfarin 5 mg tablet 5 mg PO 4XWK 08/21/19 02/09/23 History baclofen 10 mg tablet See Rx Instructions .Route .COMPLEX 09/22/19 02/09/23 History cyclobenzaprine 10 mg tablet 15 mg PO HS 03/01/20 02/09/23 History hyoscyamine sulfate 0.125 mg tablet 0.125 mg PO QPM 03/01/20 02/09/23 History potassium chloride 10 mEq 10 meq PO BIDM 03/01/20 02/09/23 History tablet,extended release tizanidine 4 mg tablet 4 mg PO BID 03/01/20 02/09/23 History Medical Marijuana See Rx Instructions .Route .COMPLEX 03/26/20 02/09/23 History methenamine hippurate 1 gram tablet 1 g PO BID 30 days #60 tabs 04/02/20 02/09/23 Rx ascorbic acid (vitamin C) 500 mg 250 mg PO TID 12/03/20 02/09/23 History tablet (Vitamin C) famotidine 20 mg tablet (Acid 20 mg PO BID 12/03/20 02/09/23 History Barrel Planer (famotidine)) Lactobacillus acidoph-L.bulgaricus 1 tab PO BID 01/03/21 02/09/23 History 1 million cell tablet (Floranex) insulin regular human 100 unit/mL See Rx Instructions .Route .COMPLEX 01/03/21 02/09/23 History injection solution (Novolin R Regular U-100 Insulin) menthol 0.44 %-zinc oxide 20.6 % 1 applic topical QID PRN Rash 01/03/21 02/09/23 History topical ointment (Calmoseptine) nystatin 100,000 unit/gram topical 1 applic topical BID PRN Rash 01/03/21 02/09/23 History powder metformin 1,000 mg tablet 1,000 mg PO BIDM 06/14/21 02/09/23 History atorvastatin 40 mg tablet 40 mg PO HS 12/31/21 02/09/23 History docusate sodium 100 mg capsule 100 mg PO AMHS 12/31/21 02/09/23 History levothyroxine 25 mcg tablet 25 mcg PO DAILYBB 02/12/22 02/09/23 History ketoconazole 2 % shampoo 1 applic topical 2XWK 05/22/22 02/09/23 History levetiracetam 500 mg tablet 500 mg PO AMHS 05/22/22 02/09/23 History multivitamin (Daily-Steve tablet) 1 tab PO DAILY 05/22/22 02/09/23 History nystatin-triamcinolone 100,000 1 applic topical BID 05/22/22 02/09/23 History unit/g-0.1 % topical cream spironolactone 25 mg tablet 25 mg PO QAM 05/22/22 02/09/23 History tacrolimus 0.1 % topical ointment 1 applic topical BID PRN as 05/22/22 02/09/23 History directed furosemide 40 mg tablet 40 mg PO BID17 02/09/23 02/09/23 History gabapentin 600 mg tablet 600 mg PO BID 02/09/23 02/09/23 History warfarin 7.5 mg tablet 7.5 mg PO 3XWK 02/09/23 02/09/23 History Patient History Medical History Anemia Asymptomatic bacteriuria Clostridium difficile infection (Unknown) CVA (cerebral vascular accident) DM type 2 (diabetes mellitus, type 2) Dyslipidemia Dysphagia Elevated lactic acid level Fever History of blood clots History of DVT (deep vein thrombosis) Hypertension Hypotension Ileus Kidney disease Lethargy Leukocytosis Major depressive disorder, recurrent Morbid obesity Obesity Occluded PICC line Positive urine culture Quadriplegia BRAIN INJURY 11 YRS AGO Quadriplegia Sacral decubitus ulcer, stage IV Sacral wound Seizure Seizure-like activity Sepsis SIRS (systemic inflammatory response syndrome) Sleep apnea (Unknown) OXYGEN 2L/MIN NC HS Syncope 57 year old with know quadriplegia and new onset syncope with change in position UTI (urinary tract infection) RECENT [facility] ADMISION-D/C 12/06/20 Weakness Surgical History Chronic suprapubic catheter History of colonoscopy 2010 History of open reduction and internal fixation (ORIF) procedure LEFT FEMUR Insertion of inferior vena caval filter (Unknown) Lithotripsy (Unknown) "laser lithotripsy left ureteral stone 03/17/11 " S/P debridement (09/06/21) Incision and Drainage and Debridement Sacral Tissue Down to Bone, 15cm x 11cm - Agusto Chaudhry, DO 09/06/21 S/P debridement (09/08/21) Excisional Debridement of Sacral Decubitus Ulcer, [id number] Down to Bone - Agusto Chaudhry, DO 09/08/2021. Patient made ASA 4. Ketamine/versed/fentanyl sedation. Tolerated without incident. S/P debridement S/P knee surgery S/P tonsillectomy Suprapubic cystostomy (Unknown) IN PLACE Family History Mother Family history of diabetes mellitus Father Family hx of colon cancer Other No pertinent family history Social History Smoking Status: Unknown if ever smoked Second Hand Exposure: No; Do You Dip or Chew Tobacco: No; Hx Alcohol Use: No Hx Substance Use: No Preferred Language: Indian Communication Ability: Effective Visual Impairment: No Limitations Director Foundation Required: No Beliefs That Will Affect Care: Protestant Protestant Beliefs: Rastafarian marital status: Current Living Situation: Spouse Current Living Situation Comment: Lives with - has care nurse 5x/week, 29/03 caregivers current occupational status: disabled Feels Safe at Home: Yes Physical Activity Frequency Comment: QUADRAPLEGIA C4-5-ABLE TO MOVE ARMS, HANDS Assistive Devices: Hospital Bed, Mechanical Lift, Oxygen - at Night and Wheelchair Review of Systems Constitutional: no fever and no chills Ear, Nose, Mouth, Throat: no hearing loss Respiratory: no cough and no dyspnea Cardiovascular: no chest pain Gastrointestinal: no nausea and no vomiting Neurologic: Chronic quadriplegia Physical Exam Physical Exam: With the assistance of 2 nurses in the emergency department the patient was logrolled and his patient's sacrum was examined.The patient was noted to have a wound near the left ischium that was packed with Aquacel. I did not appreciate any crepitus in the immediate soft tissue and did not notice any purulent drainage. Patient was also noted to have a sacral wound measuring approximately 4 cm x 7 cm which extended down to the muscle. I did not appreciate any eschar or grossly necrotic tissue at the time of my exam. There is no purulent drainage. Constitutional: no acute distress Eyes: no conjunctival abnormality ENMT: Ears: no hearing impairment Mouth: no oropharynx abnormality Neck: trachea midline Respiratory: normal respiratory effort; no respiratory distress and no labored breathing Gastrointestinal (Abdomen): Abdomen is soft and nontender. Patient has both a colostomy in place and a suprapubic catheter Musculoskeletal: No foot wounds noted Skin: no rashes Neurologic: Quadriplegia noted Psychiatric: A+Ox3, euthymic affect Results & Data Vital Signs (Past 12 Hours) Vital Signs Temp Pulse Pulse Resp BP BP Pulse Ox 02/09/23 18:43 108 H 20 117/73 93 02/09/23 16:15 108 H 16 133/88 93 02/09/23 15:06 106 H 20 108/71 91 02/09/23 14:35 110 H 20 94/63 L 93 02/09/23 14:34 02/09/23 13:33 119 H 02/09/23 13:01 37.3 C 115 H 20 164/94 H 93 O2 Del Method 02/09/23 18:43 Room Air 02/09/23 16:15 Room Air 02/09/23 15:06 Room Air 02/09/23 14:35 Room Air 02/09/23 14:34 Room Air 02/09/23 13:33 02/09/23 13:01 Room Air PG Care Time/CCT Total # of Minutes Spent Total Time Spent with Patient: Total time spent is greater than 50% in coordination of care (as documented) at patient's floor/unit and/or counseling patient: Coding Level of Care Code 70354 IN/OBS CONSULT LVL 5,80M Diagnoses Sacral decubitus ulcer L89.159 Pressure injury stage: unspecified pressure injury stage Left perineal ischial pressure ulcer L89.329 (1) Sacral decubitus ulcer Pressure injury stage: unspecified pressure injury stage Qualified Code(s): L89.159 - Pressure ulcer of sacral region, unspecified stage
[2023-02-09 20:10] LABS: Appearance Urine Clear (Clear); Bacteria Urine Automated 1+ (Negative); Bilirubin Urine Negative (Negative); Blood Urine Negative (Negative); Color Urine Yellow; Glucose Urine UA Negative (Negative); Ketones Urine Negative (Negative); Leukocyte Esterase Urine 2+ (Negative); Nitrite Urine Negative (Negative); Protein Urine Negative (Negative); RBC Urine Automated 0-4 /hpf (0-4); Specific Gravity Urine 1.034 (1.000-1.030); Urobilinogen Urine Negative (Negative); WBC Urine Automated >30 /hpf (0-5)
[2023-02-09] MEDS ORDERED: GLUCOSE 40% GEL 15 GM TUBE PO PRN (21:13)
[2023-02-09] MEDS ORDERED: LACTATED RINGER'S 1,000 ML IV SCH (21:13)
[2023-02-09] MEDS ORDERED: POLYETHYLENE (MIRALAX) 17 GM PACK PO PRN (21:13)
[2023-02-09] MEDS ORDERED: GLUCAGON FOR INJ 1 MG VIAL SQ PRN (21:13)
[2023-02-09] MEDS ORDERED: DEXTROSE 50% 50 ML SYRINGE IV PRN (21:13)
[2023-02-09] MEDS ORDERED: MAGNESIUM HYDROXIDE SUSP 30 ML UDC PO PRN (21:13)
[2023-02-09] MEDS ORDERED: ACETAMINOPHEN 325 MG TAB PO PRN (21:13)
[2023-02-09] MEDS ORDERED: PHARMACY GLYCEMIC MGMT CONSULT PRN (21:13)
[2023-02-09] MEDS ORDERED: PROMETHAZINE HCL 12.5 MG in SODIUM CHLORIDE 0.9% 50 ML IV PRN (21:13)
[2023-02-09] MEDS ORDERED: ALUMINUM/MAGNESIUM SUSP 30 ML UDC PO PRN (21:13)
[2023-02-09] MEDS ORDERED: GLUCOSE 10 TAB/TUBE PO PRN (21:13)
[2023-02-09] MEDS ORDERED: CARBOHYDRATES FOR HYPOGLYCEMIA PO PRN (21:13)
[2023-02-09] MEDS ORDERED: INSULIN HUMAN NPH SC SCH (21:13)
[2023-02-09] MEDS: INSULIN ASPART PER UNIT CHARGE SC SCH (22:01)
[2023-02-09] MEDS: rOPINIRole HCL 1 MG TABLET PO SCH (22:17)
[2023-02-09] MEDS: SACCHAROMYCES BOULARDII 250 MG CAP PO SCH (22:17)
[2023-02-09] MEDS: ASCORBIC ACID 500 MG TAB PO SCH (22:18)
[2023-02-09] MEDS: MAGNESIUM OXIDE 400 MG TAB PO SCH (22:18)
[2023-02-09] MEDS: GABAPENTIN 600 MG TAB PO SCH (22:19)
[2023-02-09] MEDS: DOCUSATE SODIUM 100 MG CAP PO SCH (22:19)
[2023-02-09] MEDS: FAMOTIDINE 20 MG TAB PO SCH (22:19)
[2023-02-09] MEDS: PANTOprazole 40 MG TAB PO SCH (22:19)
[2023-02-09] MEDS: levETIRAcetam 500 MG TAB PO SCH (22:19)
[2023-02-09] MEDS: METHENAMINE HIPPURATE 1 GM TAB PO SCH (22:19)
[2023-02-09] MEDS: tiZANidine HCL 4 MG TABLET PO SCH (22:19)
[2023-02-09] MEDS: HYOSCYAMINE SULFATE 0.125 MG TAB PO SCH (22:20)
[2023-02-09] MEDS: metroNIDAZOLE 500 MG/100 ML BAG IV SCH (22:24)
[2023-02-09] MEDS: CEFEPIME 2,000 MG in SYRINGE 0 ML IV SCH (22:25)
[2023-02-09] MEDS: allopurinoL 100 MG TAB PO SCH (22:26)
[2023-02-09] MEDS: CYCLOBENZAPRINE HCL 5 MG TAB PO SCH (23:35)
[2023-02-09] MEDS: BACLOFEN 10 MG TAB PO SCH (23:36)
[2023-02-10] MEDS: MELATONIN 3 MG TAB PO PRN (01:44)
[2023-02-10] MEDS ORDERED: INSULIN ASPART PER UNIT CHARGE SC SCH (02:00)
[2023-02-10] MEDS: metroNIDAZOLE 500 MG/100 ML BAG IV SCH ×3 (05:43→22:12)
[2023-02-10] MEDS: CEFEPIME 2,000 MG in SYRINGE 0 ML IV SCH ×3 (05:44→22:12)
[2023-02-10] MEDS: BACLOFEN 10 MG TAB PO SCH ×3 (05:48→17:45)
[2023-02-10] MEDS: LEVOTHYROXINE SODIUM 25 MCG TABLET PO SCH (05:48)
[2023-02-10] MEDS: ASCORBIC ACID 500 MG TAB PO SCH ×3 (05:49→17:44)
--- NOTE | 2023-02-10 06:18 | Surgery Progress Note ---
Date of Service February 10, 2023 Assessment & Plan (1) Sacral decubitus ulcer: Plan: He also has a left ischial ulcer The sacral ulcer has necrotic base and undermining It appears very deep on his CAT scan to the bone with likely osteomyelitis We will likely require debridement at some point, it will be very difficult to completely heal this Suggest ID consult Check labs especially his coags We may consider proceeding with debridement tomorrow/ Admission and Anticipated Discharge Date Admission Date: February 09, 2023 Subjective Patient is awake and responsive Vital signs are stable Review of Systems Constitutional: no fever and no chills Ear, Nose, Mouth, Throat: no hearing loss Respiratory: no cough and no dyspnea Cardiovascular: no chest pain Gastrointestinal: no nausea and no vomiting Neurologic: Chronic quadriplegia Physical Exam Physical Exam: Patient laying supine in his bed ,He is awake and responsive Breathing comfortably He is in no distress Results & Data Vital Signs (Past 12 Hours) Vital Signs Temp Pulse Pulse Resp BP Pulse Ox O2 Del Method 02/10/23 02:51 36.9 C 90 17 109/63 98 Nasal Cannula 02/09/23 23:50 114 H 02/09/23 22:46 37.3 C 115 H 15 138/83 100 Nasal Cannula 02/09/23 21:09 36.8 C 108 H 14 155/82 H 92 Room Air 02/09/23 18:43 108 H 20 117/73 93 Room Air O2 Flow Rate 02/10/23 02:51 3 02/09/23 23:50 02/09/23 22:46 3 02/09/23 21:09 02/09/23 18:43 PG Care Time/CCT Total # of Minutes Spent Total Time Spent with Patient: Total time spent is greater than 50% in coordination of care (as documented) at patient's floor/unit and/or counseling patient: Coding Level of Care Code 04731 SUB INP/OBS CARE 09/30MIN Diagnoses Sacral decubitus ulcer L89.159 Pressure injury stage: unspecified pressure injury stage (1) Sacral decubitus ulcer Pressure injury stage: unspecified pressure injury stage Qualified Code(s): L89.159 - Pressure ulcer of sacral region, unspecified stage
[2023-02-10 06:58] LABS: Albumin Globulin Ratio 0.7 (0.9-2); Albumin Level 2.9 gm/dl (3.4-5.0); BUN Creatinine Ratio 26.2 (10-20); Bilirubin,Total 0.5 mg/dl (0.2-1.0); Calcium 8.6 mg/dl (8.6-10.3); Creatinine Clr Calc Pharmacy 107.2 ml/min; Est GFR (African American) 89.2 ml/min; Est GFR (Non-African American) 76.9 ml/min; Globulin 4.2 gm/dl (2.5-4.0); Magnesium 1.9 mg/dl (1.7-2.4); Potassium 4.2 mmol/L (3.5-5.1); Total Protein 7.1 gm/dl (6.0-8.3)
[2023-02-10 07:13] LABS: INR 3.6 (0.9-1.1); Prothrombin Time 36.6 Seconds (9.0-12.0)
[2023-02-10 07:33] LABS: Basophils # (auto) 0.08 K/uL (0-0.2); Basophils % (auto) 0.6 %; Eosinophils # (auto) 0.42 K/uL (0-0.50); Eosinophils % (auto) 3.2 %; Hematocrit (blood only) 31.8 % (42.0-52.0); Hemoglobin 9.9 g/dl (14.0-18.0); Immature Granulocytes % (auto) 0.8 %; Lymphocytes # (auto) 2.27 K/uL (1.2-3.4); Lymphocytes % (auto) 17.2 %; Mean Corpuscular Hemoglobin 28.1 pg (25.0-34.0); Mean Corpuscular Hgb Conc 31.1 g/dL (32.0-36.0); Mean Corpuscular Volume 90.3 fL (80.0-100.0); Mean Platelet Volume 9.6 fL (9.4-12.4); Monocytes # (auto) 0.77 K/uL (0.11-0.59); Monocytes % (auto) 5.8 %; Neutrophils # (auto) 9.55 K/uL (1.40-6.50); Neutrophils % (auto) 72.4 %; Platelet Count 306 K/uL (130-400); RDW Standard Deviation 62.5 fL (36.4-46.3); Red Blood Count 3.52 M/uL (4.70-6.10); White Blood Count 13.19 K/ul (4.8-10.8)
[2023-02-10] MEDS: INSULIN ASPART PER UNIT CHARGE SC SCH ×4 (08:10→20:33)
[2023-02-10] MEDS ORDERED: INSULIN HUMAN NPH SC ONE ×2 (08:15→17:30)
[2023-02-10 08:18] LABS: Estimated Average Glucose 151 mg/dl; Hemoglobin A1C 6.9 % (4.5-5.6)
[2023-02-10] MEDS: POTASSIUM CHLORIDE 10 MEQ TABCR PO SCH ×2 (08:57→17:42)
[2023-02-10] MEDS: rOPINIRole HCL 1 MG TABLET PO SCH ×4 (08:57→20:33)
[2023-02-10] MEDS: SPIRONOLACTONE 25 MG TAB PO SCH (08:57)
[2023-02-10] MEDS: SACCHAROMYCES BOULARDII 250 MG CAP PO SCH ×2 (08:57→20:32)
[2023-02-10] MEDS: levETIRAcetam 500 MG TAB PO SCH ×2 (08:58→20:32)
[2023-02-10] MEDS: MAGNESIUM OXIDE 400 MG TAB PO SCH ×2 (08:58→20:32)
[2023-02-10] MEDS: ESCITALOPRAM OXALATE 20 MG TAB PO SCH (08:58)
[2023-02-10] MEDS: FAMOTIDINE 20 MG TAB PO SCH ×2 (08:58→20:33)
[2023-02-10] MEDS: MULTIVITAMIN TAB PO SCH (08:58)
[2023-02-10] MEDS: allopurinoL 100 MG TAB PO SCH ×2 (08:58→20:33)
[2023-02-10] MEDS: PANTOprazole 40 MG TAB PO SCH ×2 (08:58→20:32)
[2023-02-10] MEDS: DOCUSATE SODIUM 100 MG CAP PO SCH ×2 (08:58→20:33)
[2023-02-10] MEDS: GABAPENTIN 600 MG TAB PO SCH ×2 (08:58→20:33)
[2023-02-10] MEDS: METHENAMINE HIPPURATE 1 GM TAB PO SCH ×2 (08:59→20:32)
--- NOTE | 2023-02-10 09:56 | Neurology Consultation ---
Date of Consultation February 10, 2023 Assessment & Plan (1) Seizure: (2) Diplegia of lower extremities: (3) Neurogenic bladder: Plan patient suffered an incomplete cervical spinal cord injury resulting in paralysis of both legs and paresis of both arms. Left arm is worse than the right and he has a significant neurogenic bladder requiring indwelling suprapubic catheter. The patient has a history of intermittent seizure-like activity and we witnessed a seizure today. The description is a primary generalized event. Although the etiology of the seizure is not readily apparent he tends to have these during times of sepsis and infection ( which he has). He is on levetiracetam 500 mg twice daily. Given his history of depression this may not be the best medication for him and may create further irritability if the dose is increased. Recommendations: 1. Consider MRI of the brain with and without contrast. 2. consider adding Depakote 500 mg, PO twice daily 3. Could keep levetiracetam the same for now but starting next week decrease to 500 mg once a day for 1 week, then discontinue. 4. Keep other medications the same for now Overall, I spent a total of 80 minutes with this case including review of records, reports generation, direct evaluation the patient at bedside, and discussion of the case with the patient and RN at bedside, and Dr. Roach including differential diagnosis and treatment options. History of Present Illness Reason for Consultation: Patient is a 62-year-old, who I was asked to see at the request of Susana Faria PA-C, for neurologic consultation regarding seizures. Requesting Physician: Susana Guillermo PA-C Attending Physician: Shaka Roach MD History of Present Illness patient has a history of trauma falling into a concrete wall and injuring his upper cervical spine. He has had plegia of the legs (bilaterally) and paresis of the arms (left greater than right ), neurogenic bladder ( requiring indwelling suprapubic catheter), and sensory deficits ( to the waist). These have been static over time and he has developed ongoing chronic sacral/decubital ulcers and chronic will lose requiring care. The patient tells me that he started having seizures about 2 years ago the he is not a aware of any warning prior to the event and goes unresponsive. He will wake up and realized is "something had happened". It may be that the TV is off or he spilled a drink. he is followed by [facility] neurology (Irasema Cherry) and he is on levetiracetam 500 mg twice daily. He is also on gabapentin 600 mg twice a day but he takes this for pain. He has no side effects to levetiracetam, that he is aware. Apparently, he had gone approximately 1 year (that he recalls ) without a seizure. On February 06 he apparently had a witnessed focal seizure by his . He states that he tends to get more seizures when he has ongoing infections. Currently he has sacral decubitus and left peroneal ischial pressure ulcers that seem infected. The patient was transferred to [facility] from the [facility] care center in [place] on February 09, and that 09/08/2000 temperature was 37.3, pulse 115, respiratory rate 20, blood pressure 164/94, and O2 saturation 93%. CBC showed elevated white count of 17.3. He is mildly anemic. Chem profile was largely unremarkable although BUN was 30. Glucose was 145. lactate was elevated at 2.8. Today he feels at baseline, with no pain or headache or no new issues. He did not recall having an event that occurred 15-20 minutes previously. He had a witnessed event where he was talking, suddenly stopped mid sentence, and stared. After a few seconds he had some lip-smacking and then closed his eyes and started snoring. 10-15 minutes later he was awake and alert and had no recall of the incident. Allergies Allergy/AdvReac Type Severity Reaction Status Date / Time codeine Allergy Severe THROAT Verified 05/22/22 18:39 SWELLS latex Allergy Intermediate Hives Verified 05/22/22 18:39 piperacillin Allergy Intermediate Hives Verified 05/22/22 18:39 Sulfa (Sulfonamide Allergy Intermediate HIVES Verified 05/22/22 18:39 Antibiotics) tazobactam Allergy Intermediate Hives Verified 05/22/22 18:39 aztreonam Allergy Unknown unknown Verified 05/22/22 18:39 metoclopramide [From Reglan] AdvReac Intermediate lethargy Verified 05/22/22 18:39 Home Medications Medication Instructions Recorded Confirmed Type allopurinol 100 mg tablet 100 mg PO BID 05/07/18 02/09/23 History magnesium oxide 400 mg (241.3 mg 400 mg PO AMHS 05/07/18 02/09/23 History magnesium) tablet pantoprazole 40 mg tablet,delayed 40 mg PO BID 05/07/18 02/09/23 History release ropinirole 1 mg tablet 1 mg PO QID 05/07/18 02/09/23 History escitalopram oxalate 20 mg tablet 20 mg PO QAM 08/21/19 02/09/23 History insulin human U-100 NPH-regulr 64 unit subcut BIDM 08/21/19 02/09/23 History 70-30 mix 100 unit/mL subcutaneous susp (Novolin 70/30 U-100 Insulin) warfarin 5 mg tablet 5 mg PO 4XWK 08/21/19 02/09/23 History baclofen 10 mg tablet See Rx Instructions .Route .COMPLEX 09/22/19 02/09/23 History cyclobenzaprine 10 mg tablet 15 mg PO HS 03/01/20 02/09/23 History hyoscyamine sulfate 0.125 mg tablet 0.125 mg PO QPM 03/01/20 02/09/23 History potassium chloride 10 mEq 10 meq PO BIDM 03/01/20 02/09/23 History tablet,extended release tizanidine 4 mg tablet 4 mg PO BID 03/01/20 02/09/23 History Medical Marijuana See Rx Instructions .Route .COMPLEX 03/26/20 02/09/23 History methenamine hippurate 1 gram tablet 1 g PO BID 30 days #60 tabs 04/02/20 02/09/23 Rx ascorbic acid (vitamin C) 500 mg 250 mg PO TID 12/03/20 02/09/23 History tablet (Vitamin C) famotidine 20 mg tablet (Acid 20 mg PO BID 12/03/20 02/09/23 History Burnisher (famotidine)) Lactobacillus acidoph-L.bulgaricus 1 tab PO BID 01/03/21 02/09/23 History 1 million cell tablet (Floranex) insulin regular human 100 unit/mL See Rx Instructions .Route .COMPLEX 01/03/21 02/09/23 History injection solution (Novolin R Regular U-100 Insulin) menthol 0.44 %-zinc oxide 20.6 % 1 applic topical QID PRN Rash 01/03/21 02/09/23 History topical ointment (Calmoseptine) nystatin 100,000 unit/gram topical 1 applic topical BID PRN Rash 01/03/21 02/09/23 History powder metformin 1,000 mg tablet 1,000 mg PO BIDM 06/14/21 02/09/23 History atorvastatin 40 mg tablet 40 mg PO HS 12/31/21 02/09/23 History docusate sodium 100 mg capsule 100 mg PO AMHS 12/31/21 02/09/23 History levothyroxine 25 mcg tablet 25 mcg PO DAILYBB 02/12/22 02/09/23 History ketoconazole 2 % shampoo 1 applic topical 2XWK 05/22/22 02/09/23 History levetiracetam 500 mg tablet 500 mg PO AMHS 05/22/22 02/09/23 History multivitamin (Daily-Steve tablet) 1 tab PO DAILY 05/22/22 02/09/23 History nystatin-triamcinolone 100,000 1 applic topical BID 05/22/22 02/09/23 History unit/g-0.1 % topical cream spironolactone 25 mg tablet 25 mg PO QAM 05/22/22 02/09/23 History tacrolimus 0.1 % topical ointment 1 applic topical BID PRN as 05/22/22 02/09/23 History directed furosemide 40 mg tablet 40 mg PO BID17 02/09/23 02/09/23 History gabapentin 600 mg tablet 600 mg PO BID 02/09/23 02/09/23 History warfarin 7.5 mg tablet 7.5 mg PO 3XWK 02/09/23 02/09/23 History Patient History Medical History Anemia Asymptomatic bacteriuria Clostridium difficile infection (Unknown) CVA (cerebral vascular accident) DM type 2 (diabetes mellitus, type 2) Dyslipidemia Dysphagia Elevated lactic acid level Fever History of blood clots History of DVT (deep vein thrombosis) Hypertension Hypotension Ileus Kidney disease Lethargy Leukocytosis Major depressive disorder, recurrent Morbid obesity Obesity Occluded PICC line Positive urine culture Quadriplegia BRAIN INJURY 11 YRS AGO Quadriplegia Sacral decubitus ulcer, stage IV Sacral wound Seizure Seizure-like activity Sepsis SIRS (systemic inflammatory response syndrome) Sleep apnea (Unknown) OXYGEN 2L/MIN NC HS Syncope 57 year old with know quadriplegia and new onset syncope with change in position UTI (urinary tract infection) RECENT [facility]/C 12/06/20 Weakness Surgical History Chronic suprapubic catheter History of colonoscopy 2010 History of open reduction and internal fixation (ORIF) procedure LEFT FEMUR Insertion of inferior vena caval filter (Unknown) Lithotripsy (Unknown) "laser lithotripsy left ureteral stone 03/17/11 " S/P debridement (09/06/21) Incision and Drainage and Debridement Sacral Tissue Down to Bone, 15cm x 11cm - Agusto Chaudhry, DO 09/06/21 S/P debridement (09/08/21) Excisional Debridement of Sacral Decubitus Ulcer, [id number] Down to Bone - Agusto Chaudhry, DO 09/08/2021. Patient made ASA 4. Ketamine/versed/fentanyl sedation. Tolerated without incident. S/P debridement S/P knee surgery S/P tonsillectomy Suprapubic cystostomy (Unknown) IN PLACE Family History Mother , age 47 of cervical cancer Family history of diabetes mellitus Cervical cancer Father , age 85 of heart disease Family hx of colon cancer Heart disease Other No pertinent family history Social History (Updated 02/10/23 @ 09:40 by Jayro Dominique MD) Smoking Status: Never smoker Second Hand Exposure: No; Do You Dip or Chew Tobacco: No; Hx Alcohol Use: No Hx Substance Use: Yes Non-Prescribed Medications: Marijuana Last Used Substance: Days (ago) Substance Use Type Other:: medical marijuana Preferred Language: Wolof Communication Ability: Effective Visual Impairment: No Limitations [employer] Administrator Required: No Beliefs That Will Affect Care: None marital status: Current Living Situation: Spouse Current Living Situation Comment: Lives with - has care nurse 5x/week, 29/03 caregivers current occupational status: disabled 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 Feels Safe at Home: Yes Physical Activity Frequency Comment: QUADRAPLEGIA C4-5-ABLE TO MOVE ARMS, HANDS Assistive Devices: Wheelchair Review of Systems Constitutional: no fever, no fatigue and no weakness Eyes: no diplopia, no eye pain and no worsening vision Ear, Nose, Mouth, Throat: no ear pain, no tinnitus, no hearing loss, no dizziness, no snoring, no hoarseness and no dysphagia Respiratory: no cough and no dyspnea Cardiovascular: no chest pain, no palpitations and no lightheadedness Gastrointestinal: no abdominal pain, no nausea and no vomiting Musculoskeletal: no back pain, no neck pain, no radicular pain, no joint pain and no myalgia Integumentary: no rash and no lesions Neurologic: + localized weakness, + paralysis, + loss of sensation, + numbness and + seizure-like activity; no gait abnormality, no generalized weakness, no tingling, no tremor(s), no abnormal movements, no headache(s), no abnormal speech, no confusion and no memory loss Psychiatric: no depression, no irritability, no anxiety, no difficulty concentrating, no confusion and no hallucinations Endocrine: no fatigue and no flushing Hematologic / Lymphatic: no easy bleeding and no easy bruising Allergy / Immunological: no urticaria and no problem reported Exam (Neuro) Physical Exam: The patient is right-handed. The patient is awake, alert, and attentive. Speech is normal without any aphasia or dysarthria. The patient can name objects, repeat phrases, and has normal spontaneous speech. Mentation and thought processes are intact, with orientation to person, place and time, and normal fund of knowledge. Attention and concentration are normal. Mood and affect are normal and appropriate. General appearance and grooming are normal. Short and long-term memory are intact. The discs are sharp with positive venous pulsations bilaterally. There are no exudates, hemorrhages, or blood vessel changes seen. Pupils are 4 mm bilaterally and reactive to light. Extraocular eye muscles are intact without nystagmus. Visual acuity and visual barrera seem normal grossly to confrontation. There are no deficits to sensation in the face in all 3 distributions of the fifth cranial nerve bilaterally. Corneal reflexes are positive bilaterally. Facial strength and symmetry was normal bilaterally. Hearing seems normal bilaterally. Palate moves well without asymmetry. There is normal sternocl eidomastoid and trapezius (shoulder shrug) strength bilaterally. Tongue is midline with good strength bilaterally. Neck has a full range of motion without discomfort. There are no cervical bruits bilaterally. There are no cranial or ocular bruits. Heart is without murmur. There is a regular rhythm and rate. Cervical, thoracic, and lumbar spine are nontender to palpation. Gait cannot be tested and stance sitting up is very poor. With outstretched arms there is A slight drift on the left. There are no resting, postural, or action tremors. There is no ataxia with finger to nose testing. There is decreased facility in the hands. No other abnormal involuntary movements are noted. Motor strength is 4+/ 5 proximally in the right upper extremity and 4-/ 5 distally. In the left upper extremity, strength was 4/5 proximally and 3/5 distally. Leg strength is 0/5 proximally and distally diffusely bilaterally. Patient has some spasticity distally left greater than right arm and he will h ave some spastic movements of the legs left greater than right side as well. Sensory examination reveals decreased sensation to touch up to the waist bilaterally. Reflexes are 2/4 in the biceps and brachioradialis Tendons bilaterally. Triceps reflexes are 3/4. The left quadriceps was 2/4 and the right was absent. Achilles tendon reflexes were absent bilaterally. There is no clonus bilater ally. Toes are neutral/not moving with plantar stimulation bilaterally. Peripheral pulses are present and of normal quality distally in all 4 limbs. There is no peripheral edema noted in the limbs. Results & Data Vital Signs (Past 12 Hours) Vital Signs Temp Pulse Pulse Resp BP Pulse Ox O2 Del Method 02/10/23 08:00 36.6 C 97 H 18 130/73 98 Nasal Cannula 02/10/23 02:51 36.9 C 90 17 109/63 98 Nasal Cannula 02/09/23 23:50 114 H 02/09/23 22:46 37.3 C 115 H 15 138/83 100 Nasal Cannula O2 Flow Rate 02/10/23 08:00 3 02/10/23 02:51 3 02/09/23 23:50 02/09/23 22:46 3 PG Care Time/CCT Total # of Minutes Spent Total Time Spent with Patient: Total time spent is greater than 50% in coordination of care (as documented) at patient's floor/unit and/or counseling patient: Coding Level of Care Code 35792 INT INP/OBS CARE 3/75MIN Diagnoses Seizure R56.9 Diplegia of lower extremities G82.20 Neurogenic bladder N31.9
--- NOTE | 2023-02-10 10:41 | Pharmacy Report ---
Pharmacy Glycemic Short Note 2 - Date of Service February 10, 2023 - Glycemic Short BSG Results (Last 24 hours): 02/09/23 02/09/23 02/10/23 13:50 21:00 01:48 Glucose 145 H POC Glucose 112 H 156 H 02/10/23 02/10/23 06:04 07:55 Glucose 125 H POC Glucose 132 H OUTPATIENT ANTIDIABETIC REGIMEN: * Novolin 70/30 64 units SQ BID * Novolin R 4 units TIDM per SSI * metformin 1gm PO BIDM HbA1C: 6.9% ASSESSMENT: * Patient is a 62 year old male admitted with sepsis in setting of sacral decubitus ulcer. History of DM2. Pharmacy consulted to assist with inpatient glycemic management. * BSGs [phone]/dL since admission. No basal last evening. 1 unit of bolus given ~ 0200. * Pt has been NPO for possible debridement. Diet ordered again today for lunch. Also receiving IV antibiotics. * Will give 30 units of NPH this AM (~33% reduction of basal) given NPO status. Evening dose depending on BSGs. Novolog moderate stress scale ACHS. On OR schedule for tomorrow AM. PLAN FOR INPATIENT GLYCEMIC CONTROL: * Hold outpatient oral diabetes medications * Basal insulin * NPH 30 units SQ X1 this AM. Maris dose pending BSG * Bolus insulin * NovoLog per scale ACHS or Q6hrs while NPO * Goal Range: Low 110 mg/dL - High 140 mg/dL * Correction Factor: 20 mg/dL/unit * Nutritional / Prandial insulin per carb ratio of 1 unit per 7 grams CHO consumed
[2023-02-10] MEDS: DIVALPROEX DELAY RELEASE 500 MG TAB PO SCH ×2 (12:04→20:32)
[2023-02-10] MEDS: tiZANidine HCL 4 MG TABLET PO SCH (12:06)
[2023-02-10] MEDS: DAPTOmycin 625 MG in SYRINGE 0 ML IV SCH (12:06)
--- NOTE | 2023-02-10 15:25 | Hospitalist Progress Note ---
Date of Service February 10, 2023 Assessment & Plan (1) Sepsis: (2) Sacral decubitus ulcer: (3) Left perineal ischial pressure ulcer: (4) Quadriplegia: (5) Neurogenic bladder: (6) Seizure: (7) DM type 2 (diabetes mellitus, type 2): Plan This is a 62-year-old male who has significant past medical history of quadriplegia secondary to traumatic accident years ago, neurogenic bladder with suprapubic catheter, chronic stage IV decubitus ulcer over the past 10 years follows [facility] wound clinic, insulin-dependent T2DM, CKD stage III in setting of diabetic nephropathy, morbid obesity, HTN, seizure disorder, iron deficiency anemia, MGUS followed with hematology, history of VRE, depression, coagulation disorder on chronic Coumadin therapy who presents to ED secondary to referral by [facility] wound clinic due to worsening sacral wound. Patient meets criteria for sepsis in setting of leukocytosis and tachycardia. Source of infection likely in setting of wound. Wound culture was obtained by ED physician. Blood culture sent. Patient with lactic acidosis of 2.8. Sepsis Stage IV decubitus ulcer Left ischial wound Admitted to PCU Broad-spectrum antibiotics with IV daptomycin, cefepime and Flagyl based on previous cultures as discussed with ED physician and pharmacist CK 39, hold statin in setting of Dapto use Patient will need infectious disease consult - pending Wound care nurse already saw and evaluated patient, wound image evaluated General surgery consult placed - pt previously debridement with Dr. Chaudhry, now seen by Dr. Srivastava - possible debridement tmrw (02/11/23) Pt received IVF on admission lactate normalized Hold Lasix for now, consider resuming in a.m. or when appropriate N.p.o. after midnight in event debridement to take place in a.m. Seizure d/o pt on keppra pt reports seizure like activity on Wednesday, no missed medications another episode today (02/10/23) - discussed with neurology, patient started on Depakote, MRI brain also ordered. Continue Keppra for now, plan to decrease dose next week. Insulin-dependent T2DM NPH and NovoLog per protocol Consult assuming pharmacist for assistance in setting of sepsis a1c 6.6 on 01/20/23 Neurogenic bladder Suprapubic catheter in place History of recurrent UTIs Continue methenamine hippurate Colostomy status Patient with colostomy in place to prevent wound soiling Continue routine ostomy care Chronic anticoagulation 2/2 coagulation disorder Supratherapeutic INR hold warfarin today, repeat INR in a.m. PO 2.5 vit. K Chronic Quadraplegia 2/2 traumatic accident DVT ppx: on warfarin,hold this evening, repeat INR in a.m. Dispo: PCU, npo after midnight in event procedure in a.m., consult Gen Surg FULL CODE PCP: Dr. Stanford Admission and Anticipated Discharge Date Admission Date: February 09, 2023 Subjective Pt seen in follow up of sacral wound infection Currently laying in bed, in no acute distress Denies fevers chills chest pain, shortness of breath. Denies abd. pain Seen by surgery and neuro - discussed w/ both. Pt had seizure today. Medications adjusted and plan for brain MRI. Review of Systems Review of Systems: All systems reviewed & are unremarkable except as noted in Subjective Physical Exam Physical Exam: Constitutional: W D/WN, morbidly obe se, M in NAD Head: Normocephalic, At raumatic Eyes: PE RRL, conjunctivae normal, anicteric sclerae ENMT: ext ernal ear and nose normal, oropharyn x normal Neck: th ick neck Respirato ry: normal respir atory effort, lung s clear to auscult ation, no wheeze, rales, rhonchi. N ormal insp/exp eff ort, no accessory muscle use Cardiov ascular: RRR, no murmur, no edema Vessels: no JVD or carotid bruit Taryn st: normal inspect ion of chest Abdom en:obese abd, +L m idline colostomy w ith brown stool ou tput, normal bowel sounds, soft, non tender Musculoskel etal:+quad with l imited movement to upper ext Skin: no rashes, warm an d dry normal turg or Neurologic: PE RRL, no face palsy , no dysarthria Ps ychiatric: A+Ox3, euthymic affect G U: +suprapubic cat h no surrounding e rythema or drainag e, urbina bag with clear urine Results & Data Results & Data Vital Signs (Past 12 Hours) Vital Signs Temp Pulse Pulse Resp BP Pulse Ox O2 Del Method 02/10/23 11:46 36.7 C 103 H 23 134/70 91 Room Air 02/10/23 09:44 Room Air 02/10/23 09:44 85 02/10/23 08:00 36.6 C 97 H 18 130/73 98 Nasal Cannula O2 Flow Rate 02/10/23 11:46 02/10/23 09:44 02/10/23 09:44 02/10/23 08:00 3 Laboratory Results 02/10/23 02/10/23 02/10/23 Range/Units 11:18 07:55 06:04 WBC (4.8-10.8) K/ul RBC (4.70-6.10) M/uL Hgb (14.0-18.0) g/dl Hct (42.0-52.0) % MCV (80.0-100.0) fL MCH (25.0-34.0) pg MCHC (32.0-36.0) g/dL RDW Std Deviation (36.4-46.3) fL RDW Coeff of Yoseph (11.5-14.5) % Plt Count (130-400) K/uL MPV (9.4-12.4) fL Immature Gran % (Auto) % Neut % (Auto) % Lymph % (Auto) % [place] % (Auto) % Eos % (Auto) % Baso % (Auto) % Neut # (Auto) (1.40-6.50) K/uL Lymph # (Auto) (1.2-3.4) K/uL [place] # (Auto) (0.11-0.59) K/uL Eos # (Auto) (0-0.50) K/uL Baso # (Auto) (0-0.2) K/uL Immature Gran # (Auto) (0.01-0.20) K/uL PT (9.0-12.0) Seconds INR (0.9-1.1) APTT (21.0-31.0) Seconds PTT Ratio Sodium (136-145) mmol/L Potassium (3.5-5.1) mmol/L Chloride (98-107) mmol/L Carbon Dioxide (21-32) mmol/L Anion Gap (3-11) BUN (6-23) mg/dl Creatinine (0.6-1.4) mg/dl Est Cr Clr Drug Dosing ml/min Est GFR ( Amer) ml/min Est GFR (Non-Af Amer) ml/min BUN/Creatinine Ratio (10-20) Glucose (70-99(Fasting)) mg/dl POC Glucose 120 H 132 H (70-99) mg/dl Estimat Average Glucose mg/dl Hemoglobin A1c (4.5-5.6) % Lactate (0.4-2.0) mmol/L Calcium (8.6-10.3) mg/dl Magnesium (1.7-2.4) mg/dl Total Bilirubin (0.2-1.0) mg/dl AST (13-39) U/L ALT (7-52) U/L Alkaline Phosphatase (34-104) U/L Total Creatine Kinase (30-223) U/L Total Protein (6.0-8.3) gm/dl Albumin (3.4-5.0) gm/dl Globulin (2.5-4.0) gm/dl Albumin/Globulin Ratio (0.9-2) Urine Color Urine Appearance (Clear) Urine pH (4.5-7.5) Ur Specific [place] (1.000-1.030) Urine Protein (Negative) Urine Glucose (UA) (Negative) Urine Ketones (Negative) Urine Blood (Negative) Urine Nitrite (Negative) Urine Bilirubin (Negative) Urine Urobilinogen (Negative) Ur Leukocyte Esterase (Negative) Urine WBC (Auto) (0-5) /hpf Urine RBC (Auto) (0-4) /hpf U Hyaline Cast (Auto) (0-5) /lpf U Epithel Cells (Auto) (0-5) /lpf Urine Bacteria (Auto) (Negative) Urine Yeast (None Prsent) Levetiracetam Hepatitis C Ab (EIA) Pending Hep C Ab Signal/Cutoff Pending SARS-CoV-2, RNA, NAAT (NEGATIVE) 02/10/23 02/10/23 02/10/23 Range/Units 06:04 06:04 06:04 WBC (4.8-10.8) K/ul RBC (4.70-6.10) M/uL Hgb (14.0-18.0) g/dl Hct (42.0-52.0) % MCV (80.0-100.0) fL MCH (25.0-34.0) pg MCHC (32.0-36.0) g/dL RDW Std Deviation (36.4-46.3) fL RDW Coeff of Yoseph (11.5-14.5) % Plt Count (130-400) K/uL MPV (9.4-12.4) fL Immature Gran % (Auto) % Neut % (Auto) % Lymph % (Auto) % [place] % (Auto) % Eos % (Auto) % Baso % (Auto) % Neut # (Auto) (1.40-6.50) K/uL Lymph # (Auto) (1.2-3.4) K/uL [place] # (Auto) (0.11-0.59) K/uL Eos # (Auto) (0-0.50) K/uL Baso # (Auto) (0-0.2) K/uL Immature Gran # (Auto) (0.01-0.20) K/uL PT 36.6 H (9.0-12.0) Seconds INR 3.6 H (0.9-1.1) APTT (21.0-31.0) Seconds PTT Ratio Sodium 137 (136-145) mmol/L Potassium 4.2 (3.5-5.1) mmol/L Chloride 99 (98-107) mmol/L Carbon Dioxide 33 H (21-32) mmol/L Anion Gap 5 (3-11) BUN 27 H (6-23) mg/dl Creatinine 1.03 (0.6-1.4) mg/dl Est Cr Clr Drug Dosing 107.2 ml/min Est GFR ( Amer) 89.2 ml/min Est GFR (Non-Af Amer) 76.9 ml/min BUN/Creatinine Ratio 26.2 H (10-20) Glucose 125 H (70-99(Fasting)) mg/dl POC Glucose (70-99) mg/dl Estimat Average Glucose 151 mg/dl Hemoglobin A1c 6.9 H (4.5-5.6) % Lactate (0.4-2.0) mmol/L Calcium 8.6 (8.6-10.3) mg/dl Magnesium 1.9 (1.7-2.4) mg/dl Total Bilirubin 0.5 (0.2-1.0) mg/dl AST 29 (13-39) U/L ALT 38 (7-52) U/L Alkaline Phosphatase 54 (34-104) U/L Total Creatine Kinase (30-223) U/L Total Protein 7.1 (6.0-8.3) gm/dl Albumin 2.9 L (3.4-5.0) gm/dl Globulin 4.2 H (2.5-4.0) gm/dl Albumin/Globulin Ratio 0.7 L (0.9-2) Urine Color Urine Appearance (Clear) Urine pH (4.5-7.5) Ur Specific [place] (1.000-1.030) Urine Protein (Negative) Urine Glucose (UA) (Negative) Urine Ketones (Negative) Urine Blood (Negative) Urine Nitrite (Negative) Urine Bilirubin (Negative) Urine Urobilinogen (Negative) Ur Leukocyte Esterase (Negative) Urine WBC (Auto) (0-5) /hpf Urine RBC (Auto) (0-4) /hpf U Hyaline Cast (Auto) (0-5) /lpf U Epithel Cells (Auto) (0-5) /lpf Urine Bacteria (Auto) (Negative) Urine Yeast (None Prsent) Levetiracetam Hepatitis C Ab (EIA) Hep C Ab Signal/Cutoff SARS-CoV-2, RNA, NAAT (NEGATIVE) 02/10/23 02/10/23 02/09/23 Range/Units 06:04 01:48 21:34 WBC 13.19 H (4.8-10.8) K/ul RBC 3.52 L (4.70-6.10) M/uL Hgb 9.9 L (14.0-18.0) g/dl Hct 31.8 L (42.0-52.0) % MCV 90.3 (80.0-100.0) fL MCH 28.1 (25.0-34.0) pg MCHC 31.1 L (32.0-36.0) g/dL RDW Std Deviation 62.5 H (36.4-46.3) fL RDW Coeff of Yoseph 19.0 H (11.5-14.5) % Plt Count 306 (130-400) K/uL MPV 9.6 (9.4-12.4) fL Immature Gran % (Auto) 0.8 % Neut % (Auto) 72.4 % Lymph % (Auto) 17.2 % [place] % (Auto) 5.8 % Eos % (Auto) 3.2 % Baso % (Auto) 0.6 % Neut # (Auto) 9.55 H (1.40-6.50) K/uL Lymph # (Auto) 2.27 (1.2-3.4) K/uL [place] # (Auto) 0.77 H (0.11-0.59) K/uL Eos # (Auto) 0.42 (0-0.50) K/uL Baso # (Auto) 0.08 (0-0.2) K/uL Immature Gran # (Auto) 0.10 (0.01-0.20) K/uL PT (9.0-12.0) Seconds INR (0.9-1.1) APTT (21.0-31.0) Seconds PTT Ratio Sodium (136-145) mmol/L Potassium (3.5-5.1) mmol/L Chloride (98-107) mmol/L Carbon Dioxide (21-32) mmol/L Anion Gap (3-11) BUN (6-23) mg/dl Creatinine (0.6-1.4) mg/dl Est Cr Clr Drug Dosing ml/min Est GFR ( Amer) ml/min Est GFR (Non-Af Amer) ml/min BUN/Creatinine Ratio (10-20) Glucose (70-99(Fasting)) mg/dl POC Glucose 156 H (70-99) mg/dl Estimat Average Glucose mg/dl Hemoglobin A1c (4.5-5.6) % Lactate (0.4-2.0) mmol/L Calcium (8.6-10.3) mg/dl Magnesium (1.7-2.4) mg/dl Total Bilirubin (0.2-1.0) mg/dl AST (13-39) U/L ALT (7-52) U/L Alkaline Phosphatase (34-104) U/L Total Creatine Kinase 39 (30-223) U/L Total Protein (6.0-8.3) gm/dl Albumin (3.4-5.0) gm/dl Globulin (2.5-4.0) gm/dl Albumin/Globulin Ratio (0.9-2) Urine Color Urine Appearance (Clear) Urine pH (4.5-7.5) Ur Specific [place] (1.000-1.030) Urine Protein (Negative) Urine Glucose (UA) (Negative) Urine Ketones (Negative) Urine Blood (Negative) Urine Nitrite (Negative) Urine Bilirubin (Negative) Urine Urobilinogen (Negative) Ur Leukocyte Esterase (Negative) Urine WBC (Auto) (0-5) /hpf Urine RBC (Auto) (0-4) /hpf U Hyaline Cast (Auto) (0-5) /lpf U Epithel Cells (Auto) (0-5) /lpf Urine Bacteria (Auto) (Negative) Urine Yeast (None Prsent) Levetiracetam Hepatitis C Ab (EIA) Hep C Ab Signal/Cutoff SARS-CoV-2, RNA, NAAT (NEGATIVE) 02/09/23 02/09/23 02/09/23 Range/Units 21:34 21:00 19:28 WBC (4.8-10.8) K/ul RBC (4.70-6.10) M/uL Hgb (14.0-18.0) g/dl Hct (42.0-52.0) % MCV (80.0-100.0) fL MCH (25.0-34.0) pg MCHC (32.0-36.0) g/dL RDW Std Deviation (36.4-46.3) fL RDW Coeff of Yoseph (11.5-14.5) % Plt Count (130-400) K/uL MPV (9.4-12.4) fL Immature Gran % (Auto) % Neut % (Auto) % Lymph % (Auto) % [place] % (Auto) % Eos % (Auto) % Baso % (Auto) % Neut # (Auto) (1.40-6.50) K/uL Lymph # (Auto) (1.2-3.4) K/uL [place] # (Auto) (0.11-0.59) K/uL Eos # (Auto) (0-0.50) K/uL Baso # (Auto) (0-0.2) K/uL Immature Gran # (Auto) (0.01-0.20) K/uL PT (9.0-12.0) Seconds INR (0.9-1.1) APTT (21.0-31.0) Seconds PTT Ratio Sodium (136-145) mmol/L Potassium (3.5-5.1) mmol/L Chloride (98-107) mmol/L Carbon Dioxide (21-32) mmol/L Anion Gap (3-11) BUN (6-23) mg/dl Creatinine (0.6-1.4) mg/dl Est Cr Clr Drug Dosing ml/min Est GFR ( Amer) ml/min Est GFR (Non-Af Amer) ml/min BUN/Creatinine Ratio (10-20) Glucose (70-99(Fasting)) mg/dl POC Glucose 112 H (70-99) mg/dl Estimat Average Glucose mg/dl Hemoglobin A1c (4.5-5.6) % Lactate 1.6 (0.4-2.0) mmol/L Calcium (8.6-10.3) mg/dl Magnesium (1.7-2.4) mg/dl Total Bilirubin (0.2-1.0) mg/dl AST (13-39) U/L ALT (7-52) U/L Alkaline Phosphatase (34-104) U/L Total Creatine Kinase (30-223) U/L Total Protein (6.0-8.3) gm/dl Albumin (3.4-5.0) gm/dl Globulin (2.5-4.0) gm/dl Albumin/Globulin Ratio (0.9-2) Urine Color Yellow Urine Appearance Clear (Clear) Urine pH 6.0 (4.5-7.5) Ur Specific [place] 1.034 H (1.000-1.030) Urine Protein Negative (Negative) Urine Glucose (UA) Negative (Negative) Urine Ketones Negative (Negative) Urine Blood Negative (Negative) Urine Nitrite Negative (Negative) Urine Bilirubin Negative (Negative) Urine Urobilinogen Negative (Negative) Ur Leukocyte Esterase 2+ H (Negative) Urine WBC (Auto) >30 H (0-5) /hpf Urine RBC (Auto) 0-4 (0-4) /hpf U Hyaline Cast (Auto) 1-5 (0-5) /lpf U Epithel Cells (Auto) 5-10 H (0-5) /lpf Urine Bacteria (Auto) 1+ H (Negative) Urine Yeast Present A (None Prsent) Levetiracetam Hepatitis C Ab (EIA) Hep C Ab Signal/Cutoff SARS-CoV-2, RNA, NAAT (NEGATIVE) 02/09/23 02/09/23 02/09/23 Range/Units 18:16 17:43 17:34 WBC (4.8-10.8) K/ul RBC (4.70-6.10) M/uL Hgb (14.0-18.0) g/dl Hct (42.0-52.0) % MCV (80.0-100.0) fL MCH (25.0-34.0) pg MCHC (32.0-36.0) g/dL RDW Std Deviation (36.4-46.3) fL RDW Coeff of Yoseph (11.5-14.5) % Plt Count (130-400) K/uL MPV (9.4-12.4) fL Immature Gran % (Auto) % Neut % (Auto) % Lymph % (Auto) % [place] % (Auto) % Eos % (Auto) % Baso % (Auto) % Neut # (Auto) (1.40-6.50) K/uL Lymph # (Auto) (1.2-3.4) K/uL [place] # (Auto) (0.11-0.59) K/uL Eos # (Auto) (0-0.50) K/uL Baso # (Auto) (0-0.2) K/uL Immature Gran # (Auto) (0.01-0.20) K/uL PT (9.0-12.0) Seconds INR (0.9-1.1) APTT (21.0-31.0) Seconds PTT Ratio Sodium (136-145) mmol/L Potassium (3.5-5.1) mmol/L Chloride (98-107) mmol/L Carbon Dioxide (21-32) mmol/L Anion Gap (3-11) BUN (6-23) mg/dl Creatinine (0.6-1.4) mg/dl Est Cr Clr Drug Dosing ml/min Est GFR ( Amer) ml/min Est GFR (Non-Af Amer) ml/min BUN/Creatinine Ratio (10-20) Glucose (70-99(Fasting)) mg/dl POC Glucose (70-99) mg/dl Estimat Average Glucose mg/dl Hemoglobin A1c (4.5-5.6) % Lactate 2.4 H* (0.4-2.0) mmol/L Calcium (8.6-10.3) mg/dl Magnesium (1.7-2.4) mg/dl Total Bilirubin (0.2-1.0) mg/dl AST (13-39) U/L ALT (7-52) U/L Alkaline Phosphatase (34-104) U/L Total Creatine Kinase (30-223) U/L Total Protein (6.0-8.3) gm/dl Albumin (3.4-5.0) gm/dl Globulin (2.5-4.0) gm/dl Albumin/Globulin Ratio (0.9-2) Urine Color Urine Appearance (Clear) Urine pH (4.5-7.5) Ur Specific [place] (1.000-1.030) Urine Protein (Negative) Urine Glucose (UA) (Negative) Urine Ketones (Negative) Urine Blood (Negative) Urine Nitrite (Negative) Urine Bilirubin (Negative) Urine Urobilinogen (Negative) Ur Leukocyte Esterase (Negative) Urine WBC (Auto) (0-5) /hpf Urine RBC (Auto) (0-4) /hpf U Hyaline Cast (Auto) (0-5) /lpf U Epithel Cells (Auto) (0-5) /lpf Urine Bacteria (Auto) (Negative) Urine Yeast (None Prsent) Levetiracetam Pending Hepatitis C Ab (EIA) Hep C Ab Signal/Cutoff SARS-CoV-2, RNA, NAAT NEGATIVE (NEGATIVE) 02/09/23 Range/Units 13:50 WBC (4.8-10.8) K/ul RBC (4.70-6.10) M/uL Hgb (14.0-18.0) g/dl Hct (42.0-52.0) % MCV (80.0-100.0) fL MCH (25.0-34.0) pg MCHC (32.0-36.0) g/dL RDW Std Deviation (36.4-46.3) fL RDW Coeff of [place]oseph (11.5-14.5) % Plt Count (130-400) K/uL MPV (9.4-12.4) fL Immature Gran % (Auto) % Neut % (Auto) % Lymph % (Auto) % [place] % (Auto) % Eos % (Auto) % Baso % (Auto) % Neut # (Auto) (1.40-6.50) K/uL Lymph # (Auto) (1.2-3.4) K/uL [place] # (Auto) (0.11-0.59) K/uL Eos # (Auto) (0-0.50) K/uL Baso # (Auto) (0-0.2) K/uL Immature Gran # (Auto) (0.01-0.20) K/uL PT 38.7 H (9.0-12.0) Seconds INR 3.8 H (0.9-1.1) APTT 66.9 H* (21.0-31.0) Seconds PTT Ratio 2.4 Sodium (136-145) mmol/L Potassium (3.5-5.1) mmol/L Chloride (98-107) mmol/L Carbon Dioxide (21-32) mmol/L Anion Gap (3-11) BUN (6-23) mg/dl Creatinine (0.6-1.4) mg/dl Est Cr Clr Drug Dosing ml/min Est GFR ( Amer) ml/min Est GFR (Non-Af Amer) ml/min BUN/Creatinine Ratio (10-20) Glucose (70-99(Fasting)) mg/dl POC Glucose (70-99) mg/dl Estimat Average Glucose mg/dl Hemoglobin A1c (4.5-5.6) % Lactate (0.4-2.0) mmol/L Calcium (8.6-10.3) mg/dl Magnesium (1.7-2.4) mg/dl Total Bilirubin (0.2-1.0) mg/dl AST (13-39) U/L ALT (7-52) U/L Alkaline Phosphatase (34-104) U/L Total Creatine Kinase (30-223) U/L Total Protein (6.0-8.3) gm/dl Albumin (3.4-5.0) gm/dl Globulin (2.5-4.0) gm/dl Albumin/Globulin Ratio (0.9-2) Urine Color Urine Appearance (Clear) Urine pH (4.5-7.5) Ur Specific [place] (1.000-1.030) Urine Protein (Negative) Urine Glucose (UA) (Negative) Urine Ketones (Negative) Urine Blood (Negative) Urine Nitrite (Negative) Urine Bilirubin (Negative) Urine Urobilinogen (Negative) Ur Leukocyte Esterase (Negative) Urine WBC (Auto) (0-5) /hpf Urine RBC (Auto) (0-4) /hpf U Hyaline Cast (Auto) (0-5) /lpf U Epithel Cells (Auto) (0-5) /lpf Urine Bacteria (Auto) (Negative) Urine Yeast (None Prsent) Levetiracetam Hepatitis C Ab (EIA) Hep C Ab Signal/Cutoff SARS-CoV-2, RNA, NAAT (NEGATIVE) Medications Administered Current Inpatient Medications Acetaminophen (Acetaminophen 325 Mg Tab) 650 mg PO Q4H PRN PRN Reason: Pain or Fever Stop: 03/11/23 21:12 Al Hydrox/Mg Hydrox/Simethicone (Aluminum/Magnesium Susp 30 Ml Udc) 15 ml PO Q4H PRN PRN Reason: Dyspepsia Stop: 03/11/23 21:12 Allopurinol (Allopurinol 100 Mg Tab) 100 mg PO BID [facility] Stop: 03/11/23 21:12 Last Admin: 02/10/23 08:58 Dose: 100 mg Ascorbic Acid (Ascorbic Acid 500 Mg Tab) 250 mg PO TID@0600,1200,1800 [facility] Stop: 03/11/23 21:12 Last Admin: 02/10/23 12:05 Dose: 250 mg Baclofen (Baclofen 10 Mg Tab) 10 mg PO DAILY@0000 [facility] Stop: 03/12/23 00:00 Last Admin: 02/09/23 23:36 Dose: 10 mg Baclofen (Baclofen 10 Mg Tab) 5 mg PO TID@0600,1200,1800 [facility] Stop: 03/12/23 05:59 Last Admin: 02/10/23 12:09 Dose: 5 mg Cyclobenzaprine HCl (Cyclobenzaprine Hcl 5 Mg Tab) 15 mg PO DAILY@0000 [facility] Stop: 03/12/23 00:00 Last Admin: 02/09/23 23:35 Dose: 15 mg Dextrose (Dextrose 50% 50 Ml Syringe) 25 - 50 ml IV UD PRN; Protocol PRN Reason: Hypoglycemia Protocol Stop: 03/11/23 21:12 Divalproex Sodium (Divalproex Delay Release 500 Mg Tab) 500 mg PO BID [facility] Stop: 03/12/23 10:59 Last Admin: 02/10/23 12:04 Dose: 500 mg Docusate Sodium (Docusate Sodium 100 Mg Cap) 100 mg PO [facility] Stop: 03/11/23 21:12 Last Admin: 02/10/23 08:58 Dose: 100 mg Escitalopram Oxalate (Escitalopram Oxalate 20 Mg Tab) 20 mg PO QAM [facility] Stop: 03/12/23 08:59 Last Admin: 02/10/23 08:58 Dose: 20 mg Famotidine (Famotidine 20 Mg Tab) 20 mg PO BID JO Stop: 03/11/23 21:12 Last Admin: 02/10/23 08:58 Dose: 20 mg Gabapentin (Gabapentin 600 Mg Tab) 600 mg PO BID JO Stop: 03/11/23 21:12 Last Admin: 02/10/23 08:58 Dose: 600 mg Glucagon (Glucagon For Inj 1 Mg Vial) 1 mg SQ UD PRN; Protocol PRN Reason: Hypoglycemia Protocol Stop: 03/11/23 21:12 Glucose (Glucose 10 Tab/Tube) 4 - 8 tab PO UD PRN; Protocol PRN Reason: Hypoglycemia Treatment Stop: 03/11/23 21:12 Glucose (Glucose 40% Gel 15 Gm Tube) 15 - 30 gm PO UD PRN; Protocol PRN Reason: Hypoglycemia Protocol Stop: 03/11/23 21:12 Hyoscyamine (Hyoscyamine Sulfate 0.125 Mg Tab) 0.125 mg PO QPM JO Stop: 03/11/23 21:12 Last Admin: 02/09/23 22:20 Dose: 0.125 mg Cefepime HCl 2,000 mg/ Syringe 20 mls @ 5 mls/min IV Q8H JO; Protocol Stop: 02/16/23 21:59 Last Admin: 02/10/23 13:29 Dose: 5 mls/min Metronidazole (Flagyl) 500 mg in 100 mls @ 100 mls/hr IV Q8H JO; Protocol Stop: 02/16/23 21:59 Last Infusion: 02/10/23 14:52 Dose: Infused Daptomycin 625 mg/ Syringe 12.5 mls @ 6.25 mls/min IV Q24H JO; Protocol Stop: 02/17/23 11:59 Last Admin: 02/10/23 12:06 Dose: 6.25 mls/min Promethazine HCl 12.5 mg/ (Sodium Chloride) 50.5 mls @ 202 mls/hr IV Q6H PRN PRN Reason: Nausea And Vomiting Stop: 03/11/23 21:12 Insulin Aspart (Insulin Aspart Per Unit Charge) 0 units SC [facility]; Protocol Stop: 03/11/23 21:29 Last Admin: 02/10/23 12:04 Dose: 3 units Levetiracetam (Levetiracetam 500 Mg Tab) 500 mg PO [facility] Stop: 03/11/23 21:12 Last Admin: 02/10/23 08:58 Dose: 500 mg Levothyroxine Sodium (Levothyroxine Sodium 25 Mcg Tablet) 25 mcg PO DAILYBB [facility] Stop: 03/12/23 06:29 Last Admin: 02/10/23 05:48 Dose: 25 mcg Magnesium Hydroxide (Magnesium Hydroxide Susp 30 Ml Udc) 30 ml PO Q12H PRN PRN Reason: Constipation Stop: 03/11/23 21:12 Magnesium Oxide (Magnesium Oxide 400 Mg Tab) 400 mg PO [facility] Stop: 03/11/23 21:12 Last Admin: 02/10/23 08:58 Dose: 400 mg Melatonin (Melatonin 3 Mg Tab) 3 mg PO HS PRN PRN Reason: Sleep Stop: 03/12/23 01:24 Last Admin: 02/10/23 01:44 Dose: 3 mg Methenamine Hippurate (Methenamine Hippurate 1 Gm Tab) 1 gm PO BID [facility] Stop: 03/11/23 21:12 Last Admin: 02/10/23 08:59 Dose: 1 gm Miscellaneous (Carbohydrates For Hypoglycemia ) 15 - 30 gm PO UD PRN PRN Reason: Hypoglycemia Protocol Stop: 03/11/23 21:12 Miscellaneous Information (Pharmacy Glycemic Mgmt Consult) 1 each N/A UD PRN PRN Reason: Consult Stop: 03/11/23 21:12 Multivitamins (Multivitamin Tab) 1 tab PO QAM [facility] Stop: 03/12/23 08:59 Last Admin: 02/10/23 08:58 Dose: 1 tab Pantoprazole Sodium (Pantoprazole 40 Mg Tab) 40 mg PO BID [facility] Stop: 03/11/23 21:12 Last Admin: 02/10/23 08:58 Dose: 40 mg Phytonadione (Phytonadione 5 Mg Tab) 2.5 mg PO NOW [facility] Stop: 02/10/23 15:28 Polyethylene Glycol (Polyethylene (Miralax) 17 Gm Pack) 17 gm PO DAILY PRN PRN Reason: Constipation Stop: 03/11/23 21:12 Potassium Chloride (Potassium Chloride 10 Meq Tabcr) 10 meq PO BIDM [facility] Stop: 03/12/23 07:59 Last Admin: 02/10/23 08:57 Dose: 10 meq Ropinirole HCl (Ropinirole Hcl 1 Mg Tablet) 1 mg PO QID [facility] Stop: 03/11/23 21:12 Last Admin: 02/10/23 12:08 Dose: 1 mg Saccharomyces Boulardii (Saccharomyces Boulardii 250 Mg Cap) 250 mg PO BID [facility] Stop: 03/11/23 21:29 Last Admin: 02/10/23 08:57 Dose: 250 mg Spironolactone (Spironolactone 25 Mg Tab) 25 mg PO QAM [facility] Stop: 03/12/23 08:59 Last Admin: 02/10/23 08:57 Dose: 25 mg Tizanidine HCl (Tizanidine Hcl 4 Mg Tablet) 4 mg PO BID@0000,1200 [facility] Stop: 03/12/23 00:00 Last Admin: 02/10/23 12:06 Dose: 4 mg Warfarin Sodium (Warfarin Sod 5 Mg Tab) 5 mg PO [id number] [facility] Stop: 03/12/23 15:59 (1) Sepsis Sepsis acute organ dysfunction status: without acute organ dysfunction Sepsis type: sepsis due to unspecified organism Qualified Code(s): A41.9 - Sepsis, unspecified organism (2) Sacral decubitus ulcer Pressure injury stage: unspecified pressure injury stage Qualified Code(s): L89.159 - Pressure ulcer of sacral region, unspecified stage
[2023-02-10] MEDS ORDERED: PHYTONADIONE 5 MG TAB PO STA (15:27)
[2023-02-10] MEDS ORDERED: GADOBUTROL 65ML VIAL IV ONE (17:15)
--- NOTE | 2023-02-10 19:04 | Magnetic Resonance Report ---
MR brain wo/w con HISTORY: 62 years-old Male seizure acute seizure-like activity COMPARISON: Head CT 05/22/2022 TECHNIQUE: Multiplanar multisequence MRI of the brain was obtained both with and without IV contrast FINDINGS: No restricted diffusion. Midline structures appear unremarkable. Motion degraded study. Degenerative changes of the cervical spine. No acute intracranial hemorrhage, midline shift, abnormal extra-axial collection, hydrocephalus or intracranial mass. Cerebral venous sinuses and major arterial flow voids appear patent. Skull, orbits and soft tissues are within normal limits. Prior bilateral lens repair. Mastoid air cells and paranasal sinuses are generally clear. Mild involutional changes with mild T2/ FLAIR foci throughout the white matter. Subcortical increased T2/FLAIR signal the left frontal lobe o n image 7 series 9 is suggestive of gliosis from a chronic insult. No abnormal enhancement. Mesial te mporal lobes are within normal limits. Possible small developmental venous anomaly of the right front al lobe. No acute seizure focus. IMPRESSION: 1. Motion degraded exam without acute intracranial abnormality identified. 2. Involutional changes with chronic microvascular ischemic disease. 3. No abnormal enhancement. ACT 112: Negative or not required by law. The above report was generated using voice recognition software. It may contain grammatical, syntax o r spelling errors. Electronically signed by: Rey Pimentel M.D. 02/10/2023 7:01 PM
[2023-02-10] MEDS: HYOSCYAMINE SULFATE 0.125 MG TAB PO SCH (20:32)
[2023-02-11] MEDS: CYCLOBENZAPRINE HCL 5 MG TAB PO SCH ×2 (00:10→23:15)
[2023-02-11] MEDS: tiZANidine HCL 4 MG TABLET PO SCH ×3 (00:10→23:14)
[2023-02-11] MEDS: BACLOFEN 10 MG TAB PO SCH ×5 (00:10→23:14)
--- NOTE | 2023-02-11 06:05 | Electrocardiogram Report ---
Test Reason : Blood Pressure : / mmHG Vent. Rate : 108 BPM Atrial Rate : 108 BPM P-R Int : 140 ms QRS Dur : 130 ms QT Int : 384 ms P-R-T Axes : 091 007 -20 degrees QTc Int : 514 ms Sinus tachycardia Right bundle branch block Abnormal ECG When compared with ECG of 21-OCT-2022 08:12, No significant change was found Confirmed by Kavon Nieto ([id number]) on 02/11/2023 6:05:04 AM Referred By: REFERRED SELF Confirmed By:Kavon Nieto
[2023-02-11] MEDS: CEFEPIME 2,000 MG in SYRINGE 0 ML IV SCH ×3 (06:16→22:07)
[2023-02-11] MEDS: metroNIDAZOLE 500 MG/100 ML BAG IV SCH ×3 (06:18→22:07)
[2023-02-11] MEDS: LEVOTHYROXINE SODIUM 25 MCG TABLET PO SCH (06:18)
[2023-02-11] MEDS: ASCORBIC ACID 500 MG TAB PO SCH ×3 (06:19→16:59)
[2023-02-11 06:50] LABS: Basophils # (auto) 0.08 K/uL (0-0.2); Basophils % (auto) 0.6 %; Eosinophils # (auto) 0.44 K/uL (0-0.50); Eosinophils % (auto) 3.5 %; Hematocrit (blood only) 31.4 % (42.0-52.0); Hemoglobin 10.1 g/dl (14.0-18.0); Immature Granulocytes # (auto) 0.11 K/uL (0.01-0.20); Immature Granulocytes % (auto) 0.9 %; Lymphocytes # (auto) 2.43 K/uL (1.2-3.4); Lymphocytes % (auto) 19.5 %; Mean Corpuscular Hemoglobin 28.5 pg (25.0-34.0); Mean Corpuscular Hgb Conc 32.2 g/dL (32.0-36.0); Mean Corpuscular Volume 88.5 fL (80.0-100.0); Mean Platelet Volume 9.3 fL (9.4-12.4); Monocytes # (auto) 0.67 K/uL (0.11-0.59); Monocytes % (auto) 5.4 %; Neutrophils % (auto) 70.1 %; Platelet Count 300 K/uL (130-400); RDW Standard Deviation 61.3 fL (36.4-46.3); Red Blood Count 3.55 M/uL (4.70-6.10); White Blood Count 12.43 K/ul (4.8-10.8)
--- NOTE | 2023-02-11 07:06 | History & Physical Bridge Note ---
Date of Service February 11, 2023 History & Physical Bridge Note I have examined the patient, reviewed the History & Physical and in the interval since the performance of the History & Physical I have noted the following changes of clinical significance: no changes noted
--- NOTE | 2023-02-11 07:08 | Surgery Progress Note ---
Date of Service February 11, 2023 Assessment & Plan (1) Sacral decubitus ulcer: Plan: Tentatively for the OR later this morning-debridement of sacral ulcer His coags are currently pending May need to delay the operation depending on results Cultures from urinegreater than 100,000 gram-negative bacilli Same in sacral wound 2 sources of potential sepsis Admission and Anticipated Discharge Date Admission Date: February 09, 2023 Results & Data Vital Signs (Past 12 Hours) Vital Signs Temp Pulse Pulse Resp BP Pulse Ox O2 Del Method 02/10/23 23:00 89 02/11/23 03:00 36.8 C 97 H 21 121/67 93 Room Air 02/10/23 22:54 37.0 C 101 H 19 103/59 L 92 Room Air 02/10/23 20:00 Room Air 02/10/23 19:24 36.8 C 103 H 21 129/74 93 Room Air PG Care Time/CCT Total # of Minutes Spent Total Time Spent with Patient: Total time spent is greater than 50% in coordination of care (as documented) at patient's floor/unit and/or counseling patient: Coding Level of Care Code None Diagnoses Sacral decubitus ulcer L89.159 Pressure injury stage: unspecified pressure injury stage (1) Sacral decubitus ulcer Pressure injury stage: unspecified pressure injury stage Qualified Code(s): L89.159 - Pressure ulcer of sacral region, unspecified stage
[2023-02-11 07:21] LABS: INR 2.4 (0.9-1.1); Prothrombin Time 25.3 Seconds (9.0-12.0)
[2023-02-11] MEDS ORDERED: PHYTONADIONE PED 1 MG/0.5ML AMP/SYRG IV ONE (07:36)
[2023-02-11] MEDS ORDERED: PHYTONADIONE 1 MG in DEXTROSE 5% 50 ML IV ONE (07:45)
--- NOTE | 2023-02-11 07:47 | Anesthesiology Consultation ---
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 Surgery Operation Date: 02/11/23 10:50 Proposed Procedures p Debridement of Sacral Ulcer - Artemio Srivastava MD, FACS Height/Weight Height: 5 ft 11 in Weight: 145.1 kg Allergies Allergy/AdvReac Type Severity Reaction Status Date / Time codeine Allergy Severe THROAT Verified 05/22/22 18:39 SWELLS latex Allergy Intermediate Hives Verified 05/22/22 18:39 piperacillin Allergy Intermediate Hives Verified 05/22/22 18:39 Sulfa (Sulfonamide Allergy Intermediate HIVES Verified 05/22/22 18:39 Antibiotics) tazobactam Allergy Intermediate Hives Verified 05/22/22 18:39 aztreonam Allergy Unknown unknown Verified 05/22/22 18:39 metoclopramide [From Reglan] AdvReac Intermediate lethargy Verified 05/22/22 18:39 Medications Home Medications Medication Instructions Recorded Confirmed Last Taken allopurinol 100 mg tablet 100 mg PO BID 05/07/18 02/09/23 05/22/22 am magnesium oxide 400 mg (241.3 mg 400 mg PO AMHS 05/07/18 02/09/23 05/22/22 magnesium) tablet pantoprazole 40 mg tablet,delayed 40 mg PO BID 05/07/18 02/09/23 05/22/22 release ropinirole 1 mg tablet 1 mg PO QID 05/07/18 02/09/23 05/22/22 escitalopram oxalate 20 mg tablet 20 mg PO QAM 08/21/19 02/09/23 05/22/22 insulin human U-100 NPH-regulr 64 unit subcut BIDM 08/21/19 02/09/23 05/22/22 70-30 mix 100 unit/mL subcutaneous am susp (Novolin 70/30 U-100 Insulin) warfarin 5 mg tablet 5 mg PO 4XWK 08/21/19 02/09/23 05/21/22 baclofen 10 mg tablet See Rx Instructions .Route .COMPLEX 09/22/19 02/09/23 05/22/22 cyclobenzaprine 10 mg tablet 15 mg PO HS 03/01/20 02/09/23 05/21/22 hyoscyamine sulfate 0.125 mg tablet 0.125 mg PO QPM 03/01/20 02/09/23 05/22/22 potassium chloride 10 mEq 10 meq PO BIDM 03/01/20 02/09/23 05/22/22 tablet,extended release breakfast tizanidine 4 mg tablet 4 mg PO BID 03/01/20 02/09/23 05/22/22 Medical Marijuana See Rx Instructions .Route .COMPLEX 03/26/20 02/09/23 02/12/22 07:00 methenamine hippurate 1 gram tablet 1 g PO BID 30 days #60 tabs 04/02/20 02/09/23 05/22/22 ascorbic acid (vitamin C) 500 mg 250 mg PO TID 12/03/20 02/09/23 05/22/22 tablet (Vitamin C) am famotidine 20 mg tablet (Acid 20 mg PO BID 12/03/20 02/09/23 05/22/22 [employer] (famotidine)) am Lactobacillus acidoph-L.bulgaricus 1 tab PO BID 01/03/21 02/09/23 05/22/22 1 million cell tablet (Floranex) insulin regular human 100 unit/mL See Rx Instructions .Route .COMPLEX 01/03/21 02/09/23 05/22/22 injection solution (Novolin R Regular U-100 Insulin) menthol 0.44 %-zinc oxide 20.6 % 1 applic topical QID PRN Rash 01/03/21 02/09/23 01/09/21 23:55 topical ointment (Calmoseptine) nystatin 100,000 unit/gram topical 1 applic topical BID PRN Rash 01/03/21 02/09/23 01/10/21 08:00 powder metformin 1,000 mg tablet 1,000 mg PO BIDM 06/14/21 02/09/23 05/22/22 am atorvastatin 40 mg tablet 40 mg PO HS 12/31/21 02/09/23 05/21/22 docusate sodium 100 mg capsule 100 mg PO AMHS 12/31/21 02/09/23 05/22/22 am levothyroxine 25 mcg tablet 25 mcg PO DAILYBB 02/12/22 02/09/23 05/22/22 ketoconazole 2 % shampoo 1 applic topical 2XWK 05/22/22 02/09/23 Unknown levetiracetam 500 mg tablet 500 mg PO AMHS 05/22/22 02/09/23 05/22/22 am multivitamin (Daily-Steve tablet) 1 tab PO DAILY 05/22/22 02/09/23 05/22/22 nystatin-triamcinolone 100,000 1 applic topical BID 05/22/22 02/09/23 05/22/22 unit/g-0.1 % topical cream spironolactone 25 mg tablet 25 mg PO QAM 05/22/22 02/09/23 05/22/22 tacrolimus 0.1 % topical ointment 1 applic topical BID PRN as 05/22/22 02/09/23 Unknown directed furosemide 40 mg tablet 40 mg PO BID17 02/09/23 02/09/23 Unknown gabapentin 600 mg tablet 600 mg PO BID 02/09/23 02/09/23 Unknown warfarin 7.5 mg tablet 7.5 mg PO 3XWK 02/09/23 02/09/23 Unknown Active Medications Generic Name Dose Route Start Last Admin Trade Name Freq PRN Reason Stop Dose Admin Allopurinol 100 mg 02/09/23 21:13 02/10/23 20:33 Allopurinol 100 Mg Tab PO 03/11/23 21:12 100 mg BID JO Administration Ascorbic Acid 250 mg 02/09/23 21:13 02/11/23 06:19 Ascorbic Acid 500 Mg Tab PO 03/11/23 21:12 250 mg TID@0600,1200,1800 JO Administration Baclofen 10 mg 02/10/23 00:00 02/11/23 00:10 Baclofen 10 Mg Tab PO 03/12/23 00:00 10 mg DAILY@0000 JO Administration Baclofen 5 mg 02/10/23 06:00 02/11/23 06:21 Baclofen 10 Mg Tab PO 03/12/23 05:59 5 mg TID@0600,1200,1800 JO Administration Cyclobenzaprine HCl 15 mg 02/10/23 00:00 02/11/23 00:10 Cyclobenzaprine Hcl 5 Mg Tab PO 03/12/23 00:00 15 mg DAILY@0000 JO Administration Divalproex Sodium 500 mg 02/10/23 11:00 02/10/23 20:32 Divalproex Delay Release 500 Mg Tab PO 03/12/23 10:59 500 mg BID JO Administration Docusate Sodium 100 mg 02/09/23 21:13 02/10/23 20:33 Docusate Sodium 100 Mg Cap PO 03/11/23 21:12 100 mg AMHS JO Administration Escitalopram Oxalate 20 mg 02/10/23 09:00 02/10/23 08:58 Escitalopram Oxalate 20 Mg Tab PO 03/12/23 08:59 20 mg QAM JO Administration Famotidine 20 mg 02/09/23 21:13 02/10/23 20:33 Famotidine 20 Mg Tab PO 03/11/23 21:12 20 mg BID JO Administration Gabapentin 600 mg 02/09/23 21:13 02/10/23 20:33 Gabapentin 600 Mg Tab PO 03/11/23 21:12 600 mg BID JO Administration Hyoscyamine 0.125 mg 02/09/23 21:13 02/10/23 20:32 Hyoscyamine Sulfate 0.125 Mg Tab PO 03/11/23 21:12 0.125 mg QPM JO Administration Cefepime HCl 2,000 mg/ Syringe 20 mls @ 5 mls/min 02/09/23 22:00 02/11/23 06:16 IV 02/16/23 21:59 5 mls/min Q8H JO Administration Protocol Metronidazole 500 mg in 100 mls @ 100 mls/hr 02/09/23 22:00 02/11/23 07:18 Flagyl IV 02/16/23 21:59 Infused Q8H JO Infusion Protocol Daptomycin 625 mg/ Syringe 12.5 mls @ 6.25 mls/min 02/10/23 12:00 02/10/23 12:06 IV 02/17/23 11:59 6.25 mls/min Q24H JO Administration Protocol Insulin Aspart 0 units 02/09/23 21:30 02/10/23 20:33 Insulin Aspart Per Unit Charge SC 03/11/23 21:29 2 units ACHS JO Administration Protocol Levetiracetam 500 mg 02/09/23 21:13 02/10/23 20:32 Levetiracetam 500 Mg Tab PO 03/11/23 21:12 500 mg AMHS JO Administration Levothyroxine Sodium 25 mcg 02/10/23 06:30 02/11/23 06:18 Levothyroxine Sodium 25 Mcg Tablet PO 03/12/23 06:29 25 mcg DAILYBB JO Administration Magnesium Oxide 400 mg 02/09/23 21:13 02/10/23 20:32 Magnesium Oxide 400 Mg Tab PO 03/11/23 21:12 400 mg AMHS JO Administration Melatonin 3 mg 02/10/23 01:25 02/10/23 01:44 Melatonin 3 Mg Tab PO 03/12/23 01:24 3 mg HS PRN Administration Sleep Methenamine Hippurate 1 gm 02/09/23 21:13 02/10/23 20:32 Methenamine Hippurate 1 Gm Tab PO 03/11/23 21:12 1 gm BID JO Administration Multivitamins 1 tab 02/10/23 09:00 02/10/23 08:58 Multivitamin Tab PO 03/12/23 08:59 1 tab QAM JO Administration Pantoprazole Sodium 40 mg 02/09/23 21:13 02/10/23 20:32 Pantoprazole 40 Mg Tab PO 03/11/23 21:12 40 mg BID JO Administration Potassium Chloride 10 meq 02/10/23 08:00 02/10/23 17:42 Potassium Chloride 10 Meq Tabcr PO 03/12/23 07:59 10 meq BIDM JO Administration Ropinirole HCl 1 mg 02/09/23 21:13 02/10/23 20:33 Ropinirole Hcl 1 Mg Tablet PO 03/11/23 21:12 1 mg QID JO Administration Saccharomyces Boulardii 250 mg 02/09/23 21:30 02/10/23 20:32 Saccharomyces Boulardii 250 Mg Cap PO 03/11/23 21:29 250 mg BID JO Administration Spironolactone 25 mg 02/10/23 09:00 02/10/23 08:57 Spironolactone 25 Mg Tab PO 03/12/23 08:59 25 mg QAM JO Administration Tizanidine HCl 4 mg 02/10/23 00:00 02/11/23 00:10 Tizanidine Hcl 4 Mg Tablet PO 03/12/23 00:00 4 mg BID@0000,1200 JO Administration Past Medical History Medical History Anemia Asymptomatic bacteriuria Clostridium difficile infection (Unknown) CVA (cerebral vascular accident) DM type 2 (diabetes mellitus, type 2) Dyslipidemia Dysphagia Elevated lactic acid level Fever History of blood clots History of DVT (deep vein thrombosis) Hypertension Hypotension Ileus Kidney disease Lethargy Leukocytosis Major depressive disorder, recurrent Morbid obesity Obesity Occluded PICC line Positive urine culture Quadriplegia BRAIN INJURY 11 YRS AGO Quadriplegia Sacral decubitus ulcer, stage IV Sacral wound Seizure Seizure-like activity Sepsis SIRS (systemic inflammatory response syndrome) Sleep apnea (Unknown) OXYGEN 2L/MIN NC HS Syncope 57 year old with know quadriplegia and new onset syncope with change in position UTI (urinary tract infection) RECENT [facility] ADMISION-D/C 12/06/20 Weakness Past Family History Family History Mother , age 47 of cervical cancer Family history of diabetes mellitus Cervical cancer Father , age 85 of heart disease Family hx of colon cancer Heart disease Other No pertinent family history Past Surgical History Surgical History Chronic suprapubic catheter History of colonoscopy 2010 History of open reduction and internal fixation (ORIF) procedure LEFT FEMUR Insertion of inferior vena caval filter (Unknown) Lithotripsy (Unknown) "laser lithotripsy left ureteral stone 03/17/11 " S/P debridement (09/06/21) Incision and Drainage and Debridement Sacral Tissue Down to Bone, 15cm x 11cm - Agusto Chaudhry, DO 09/06/21 S/P debridement (09/08/21) Excisional Debridement of Sacral Decubitus Ulcer, [id number] Down to Bone - Agusto Chaudhry, DO 09/08/2021. Patient made ASA 4. Ketamine/versed/fentanyl sedation. Tolerated without incident. S/P debridement S/P knee surgery S/P tonsillectomy Suprapubic cystostomy (Unknown) IN PLACE Social History Smoking Status: Never smoker Do You Dip or Chew Tobacco: No Hx Alcohol Use: No Hx Substance Use: Yes substance use type: marijuana Substance Use Type Other:: medical marijuana Last Used Substance: Days (ago) Physical Exam Vital Signs Last Vital Signs Temp 98.2 F 02/11/23 03:00 Pulse 95 H 02/11/23 07:38 Resp 21 02/11/23 03:00 BP 121/67 02/11/23 03:00 Pulse Ox 93 02/11/23 03:00 O2 Del Method Room Air 02/11/23 03:00 O2 Flow Rate 3 06/07/23 08:00 Testing Laboratory Results 02/11/23 05:59 PT 25.3 Seconds (9.0-12.0) H 02/11/23 05:59 INR 2.4 (0.9-1.1) H 02/11/23 05:59 APTT 66.9 Seconds (21.0-31.0) H* 02/09/23 13:50 Hemoglobin A1c 6.9 % (4.5-5.6) H 02/10/23 06:04 Urine Color Yellow 02/09/23 19:28 Urine Appearance Clear (Clear) 02/09/23 19:28 Urine pH 6.0 (4.5-7.5) 02/09/23 19:28 Ur Specific [place] 1.034 (1.000-1.030) H 02/09/23 19:28 Urine Protein Negative (Negative) 02/09/23 19:28 Urine Glucose (UA) Negative (Negative) 02/09/23 19:28 Urine Ketones Negative (Negative) 02/09/23 19:28 Urine Nitrite Negative (Negative) 02/09/23 19:28 Ur Leukocyte Esterase 2+ (Negative) H 02/09/23 19:28 Urine WBC (Auto) >30 /hpf (0-5) H 02/09/23 19:28 Urine RBC (Auto) 0-4 /hpf (0-4) 02/09/23 19:28 U Hyaline Cast (Auto) 1-5 /lpf (0-5) 02/09/23 19:28 U Epithel Cells (Auto) 5-10 /lpf (0-5) H 02/09/23 19:28 Urine Bacteria (Auto) 1+ (Negative) H 02/09/23 19:28 02/09/23 13:50 Aerobic Blood Culture - Preliminary Blood No growth in Aerobic bottle after 24 hours. Anaerobic Blood Culture - Preliminary No growth in Anaerobic bottle after 24 hours. 02/09/23 14:54 Aerobic Blood Culture - Preliminary Blood No growth in Aerobic bottle after 24 hours. Anaerobic Blood Culture - Preliminary No growth in Anaerobic bottle after 24 hours. 02/09/23 19:28 Urine Culture - Preliminary Urine,Straight Cath Gram negative bacilli 02/09/23 14:15 Gram Stain - Final Sacrum Aerobic and Anaerobic Culture - Preliminary Gram negative bacilli 02/10/23 20:00 POC Glucose 177 H Electrocardiogram Date: 02/09/23 Sinus tachycardia, rate 108 bpm Right bundle branch block Abnormal ECG When compared with ECG of 21-OCT-2022 08:12, No significant change was found Confirmed by Kavon Nieto ([id number]) on 02/11/2023 6:05:04 AM Chest X-Ray Date: 02/09/23 IMPRESSION: Cardiomegaly and mild pulmonary edema. No keyona pneumonia is seen.
[2023-02-11] MEDS: INSULIN ASPART PER UNIT CHARGE SC SCH ×4 (07:51→21:44)
--- NOTE | 2023-02-11 07:54 | Hospitalist Progress Note ---
Date of Service February 11, 2023 Assessment & Plan (1) Sepsis: (2) Sacral decubitus ulcer: (3) Left perineal ischial pressure ulcer: (4) Quadriplegia: (5) Neurogenic bladder: (6) Seizure: (7) DM type 2 (diabetes mellitus, type 2): Plan This is a 62-year-old male who has significant past medical history of quadriplegia secondary to traumatic accident years ago, neurogenic bladder with suprapubic catheter, chronic stage IV decubitus ulcer over the past 10 years follows [facility] wound clinic, insulin-dependent T2DM, CKD stage III in setting of diabetic nephropathy, morbid obesity, HTN, seizure disorder, iron deficiency anemia, MGUS followed with hematology, history of VRE, depression, coagulation disorder on chronic Coumadin therapy who presents to ED secondary to referral by [facility] wound clinic due to worsening sacral wound. Patient meets criteria for sepsis in setting of leukocytosis and tachycardia. Source of infection likely in setting of wound. Wound culture was obtained by ED physician. Blood culture sent. Patient with lactic acidosis of 2.8. Sepsis Stage IV decubitus ulcer Left ischial wound Admitted to PCU Broad-spectrum antibiotics with IV daptomycin, cefepime and Flagyl based on previous cultures as discussed with ED physician and pharmacist CK 39, hold statin in setting of Dapto use Patient will need infectious disease consult - pending Wound care nurse already saw and evaluated patient, wound image evaluated General surgery consult placed - pt previously debridement with Dr. Chaudhry, now seen by Dr. Srivastava - plan for debridement today (02/11/23). INR 2.4 - discussed w/ surgery IV vit.K given. Pt received IVF on admission lactate normalized Hold Lasix for now, consider resuming in a.m. or when appropriate N.p.o. after midnight in event debridement to take place in a.m. Seizure d/o pt on keppra pt reports seizure like activity on Wednesday, no missed medications another episode today (02/10/23) - discussed with neurology, patient started on Depakote, MRI brain also ordered. Continue Keppra for now, plan to decrease dose next week. Brain MRI - IMPRESSION: 1. Motion degraded exam without acute intracranial abnormality identified. 2. Involutional changes with chronic microvascular ischemic disease. 3. No abnormal enhancement. Insulin-dependent T2DM NPH and NovoLog per protocol Consult assuming pharmacist for assistance in setting of sepsis a1c 6.6 on 01/20/23 Neurogenic bladder Suprapubic catheter in place History of recurrent UTIs Continue methenamine hippurate Colostomy status Patient with colostomy in place to prevent wound soiling Continue routine ostomy care Chronic anticoagulation 2/2 coagulation disorder Supratherapeutic INR hold warfarin today, repeat INR in a.m. PO 2.5 vit. K yesterday , IV vit. K 2mg given this AM Chronic Quadraplegia 2/2 traumatic accident DVT ppx: on warfarin,hold this evening, repeat INR in a.m. Dispo: PCU FULL CODE PCP: Dr. Stanford Admission and Anticipated Discharge Date Admission Date: February 09, 2023 Subjective Pt seen in follow up of sacral wound infection, UTI Currently laying in bed, in no acute distress Denies fevers chills chest pain, shortness of breath. Denies abd. pain Seen by surgery and neuro. Pt had seizure yesterday. brain MRI obtained. Discussed with surgery this morning, INR still supratherapeutic, IV vitamin K given. Plan for OR later this morning. Review of Systems Review of Systems: All systems reviewed & are unremarkable except as noted in Subjective Physical Exam Physical Exam: Constitutional: WD/WN, morbidly ob fany, M in NAD Head : Normocephalic, A traumatic Eyes: P ERRL, conjunctivae normal, anicteric sclerae ENMT: ex ternal ear and nos e normal, orophary nx normal Neck: t hick neck Respirat ory: normal respi ratory effort, [place] gs clear to auscul tation, no wheeze, rales, rhonchi. Normal insp/exp ef fort, no accessory muscle use Cardio vascular: RRR, no murmur, no edema Vessels: no JVD o r carotid bruit Ch est: normal inspec tion of chest Abdo men: obese abd, +L midline colostomy with brown stool output, normal bow el sounds, soft, n ontender Musculosk eletal:+quad with limited movement to upper ext Skin: no rashes, warm and dry normal tu rgor Neurologic: PERRL, no face pal sy, no dysarthria Psychiatric: A+Ox 3, euthymic affect : +suprapubic c ath no surrounding erythema or drain age, urbina bag wit h clear urine Results & Data Results & Data Vital Signs (Past 12 Hours) Vital Signs Temp Pulse Pulse Resp BP Pulse Ox O2 Del Method 02/11/23 07:38 95 H 02/10/23 23:00 89 02/11/23 03:00 36.8 C 97 H 21 121/67 93 Room Air 02/10/23 22:54 37.0 C 101 H 19 103/59 L 92 Room Air 02/10/23 20:00 Room Air Laboratory Results 02/11/23 02/11/23 02/11/23 Range/Units 07:49 05:59 05:59 WBC (4.8-10.8) K/ul RBC (4.70-6.10) M/uL Hgb (14.0-18.0) g/dl Hct (42.0-52.0) % MCV (80.0-100.0) fL MCH (25.0-34.0) pg MCHC (32.0-36.0) g/dL RDW Std Deviation (36.4-46.3) fL RDW Coeff of Yoseph (11.5-14.5) % Plt Count (130-400) K/uL MPV (9.4-12.4) fL Immature Gran % (Auto) % Neut % (Auto) % Lymph % (Auto) % Branch % (Auto) % Eos % (Auto) % Baso % (Auto) % Neut # (Auto) (1.40-6.50) K/uL Lymph # (Auto) (1.2-3.4) K/uL Branch # (Auto) (0.11-0.59) K/uL Eos # (Auto) (0-0.50) K/uL Baso # (Auto) (0-0.2) K/uL Immature Gran # (Auto) (0.01-0.20) K/uL PT 25.3 H (9.0-12.0) Seconds INR 2.4 H (0.9-1.1) Sodium Pending Potassium Pending Chloride Pending Carbon Dioxide Pending Anion Gap Pending BUN Pending Creatinine Pending Est Cr Clr Drug Dosing Pending Est GFR ( Amer) Pending Est GFR (Non-Af Amer) Pending BUN/Creatinine Ratio Pending Glucose Pending POC Glucose 138 H (70-99) mg/dl Estimat Average Glucose mg/dl Hemoglobin A1c (4.5-5.6) % Calcium Pending Phosphorus Pending Magnesium Pending Total Bilirubin Pending AST Pending ALT Pending Alkaline Phosphatase Pending Total Protein Pending Albumin Pending Globulin Pending Albumin/Globulin Ratio Pending 02/11/23 02/10/23 02/10/23 Range/Units 05:59 20:00 15:54 WBC 12.43 H (4.8-10.8) K/ul RBC 3.55 L (4.70-6.10) M/uL Hgb 10.1 L (14.0-18.0) g/dl Hct 31.4 L (42.0-52.0) % MCV 88.5 (80.0-100.0) fL MCH 28.5 (25.0-34.0) pg MCHC 32.2 (32.0-36.0) g/dL RDW Std Deviation 61.3 H (36.4-46.3) fL RDW Coeff of Yoseph 19.0 H (11.5-14.5) % Plt Count 300 (130-400) K/uL MPV 9.3 L (9.4-12.4) fL Immature Gran % (Auto) 0.9 % Neut % (Auto) 70.1 % Lymph % (Auto) 19.5 % Branch % (Auto) 5.4 % Eos % (Auto) 3.5 % Baso % (Auto) 0.6 % Neut # (Auto) 8.70 H (1.40-6.50) K/uL Lymph # (Auto) 2.43 (1.2-3.4) K/uL Branch # (Auto) 0.67 H (0.11-0.59) K/uL Eos # (Auto) 0.44 (0-0.50) K/uL Baso # (Auto) 0.08 (0-0.2) K/uL Immature Gran # (Auto) 0.11 (0.01-0.20) K/uL PT (9.0-12.0) Seconds INR (0.9-1.1) Sodium Potassium Chloride Carbon Dioxide Anion Gap BUN Creatinine Est Cr Clr Drug Dosing Est GFR ( Amer) Est GFR (Non-Af Amer) BUN/Creatinine Ratio Glucose POC Glucose 177 H 180 H (70-99) mg/dl Estimat Average Glucose mg/dl Hemoglobin A1c (4.5-5.6) % Calcium Phosphorus Magnesium Total Bilirubin AST ALT Alkaline Phosphatase Total Protein Albumin Globulin Albumin/Globulin Ratio 02/10/23 02/10/23 02/10/23 Range/Units 11:18 07:55 06:04 WBC (4.8-10.8) K/ul RBC (4.70-6.10) M/uL Hgb (14.0-18.0) g/dl Hct (42.0-52.0) % MCV (80.0-100.0) fL MCH (25.0-34.0) pg MCHC (32.0-36.0) g/dL RDW Std Deviation (36.4-46.3) fL RDW Coeff of Yoseph (11.5-14.5) % Plt Count (130-400) K/uL MPV (9.4-12.4) fL Immature Gran % (Auto) % Neut % (Auto) % Lymph % (Auto) % Branch % (Auto) % Eos % (Auto) % Baso % (Auto) % Neut # (Auto) (1.40-6.50) K/uL Lymph # (Auto) (1.2-3.4) K/uL Branch # (Auto) (0.11-0.59) K/uL Eos # (Auto) (0-0.50) K/uL Baso # (Auto) (0-0.2) K/uL Immature Gran # (Auto) (0.01-0.20) K/uL PT (9.0-12.0) Seconds INR (0.9-1.1) Sodium Potassium Chloride Carbon Dioxide Anion Gap BUN Creatinine Est Cr Clr Drug Dosing Est GFR ( Amer) Est GFR (Non-Af Amer) BUN/Creatinine Ratio Glucose POC Glucose 120 H 132 H (70-99) mg/dl Estimat Average Glucose 151 mg/dl Hemoglobin A1c 6.9 H (4.5-5.6) % Calcium Phosphorus Magnesium Total Bilirubin AST ALT Alkaline Phosphatase Total Protein Albumin Globulin Albumin/Globulin Ratio Medications Administered Current Inpatient Medications Acetaminophen (Acetaminophen 325 Mg Tab) 650 mg PO Q4H PRN PRN Reason: Pain or Fever Stop: 03/11/23 21:12 Al Hydrox/Mg Hydrox/Simethicone (Aluminum/Magnesium Susp 30 Ml Udc) 15 ml PO Q4H PRN PRN Reason: Dyspepsia Stop: 03/11/23 21:12 Allopurinol (Allopurinol 100 Mg Tab) 100 mg PO BID [facility] Stop: 03/11/23 21:12 Last Admin: 02/10/23 20:33 Dose: 100 mg Ascorbic Acid (Ascorbic Acid 500 Mg Tab) 250 mg PO TID@0600,1200,1800 [facility] Stop: 03/11/23 21:12 Last Admin: 02/11/23 06:19 Dose: 250 mg Baclofen (Baclofen 10 Mg Tab) 10 mg PO DAILY@0000 [facility] Stop: 03/12/23 00:00 Last Admin: 02/11/23 00:10 Dose: 10 mg Baclofen (Baclofen 10 Mg Tab) 5 mg PO TID@0600,1200,1800 [facility] Stop: 03/12/23 05:59 Last Admin: 02/11/23 06:21 Dose: 5 mg Cyclobenzaprine HCl (Cyclobenzaprine Hcl 5 Mg Tab) 15 mg PO DAILY@0000 [facility] Stop: 03/12/23 00:00 Last Admin: 02/11/23 00:10 Dose: 15 mg Dextrose (Dextrose 50% 50 Ml Syringe) 25 - 50 ml IV UD PRN; Protocol PRN Reason: Hypoglycemia Protocol Stop: 03/11/23 21:12 Divalproex Sodium (Divalproex Delay Release 500 Mg Tab) 500 mg PO BID [facility] Stop: 03/12/23 10:59 Last Admin: 02/10/23 20:32 Dose: 500 mg Docusate Sodium (Docusate Sodium 100 Mg Cap) 100 mg PO AMHS [facility] Stop: 03/11/23 21:12 Last Admin: 02/10/23 20:33 Dose: 100 mg Escitalopram Oxalate (Escitalopram Oxalate 20 Mg Tab) 20 mg PO QAM [facility] Stop: 03/12/23 08:59 Last Admin: 02/10/23 08:58 Dose: 20 mg Famotidine (Famotidine 20 Mg Tab) 20 mg PO BID [facility] Stop: 03/11/23 21:12 Last Admin: 02/10/23 20:33 Dose: 20 mg Gabapentin (Gabapentin 600 Mg Tab) 600 mg PO BID [facility] Stop: 03/11/23 21:12 Last Admin: 02/10/23 20:33 Dose: 600 mg Glucagon (Glucagon For Inj 1 Mg Vial) 1 mg SQ UD PRN; Protocol PRN Reason: Hypoglycemia Protocol Stop: 03/11/23 21:12 Glucose (Glucose 10 Tab/Tube) 4 - 8 tab PO UD PRN; Protocol PRN Reason: Hypoglycemia Treatment Stop: 03/11/23 21:12 Glucose (Glucose 40% Gel 15 Gm Tube) 15 - 30 gm PO UD PRN; Protocol PRN Reason: Hypoglycemia Protocol Stop: 03/11/23 21:12 Hyoscyamine (Hyoscyamine Sulfate 0.125 Mg Tab) 0.125 mg PO QPM JO Stop: 03/11/23 21:12 Last Admin: 02/10/23 20:32 Dose: 0.125 mg Cefepime HCl 2,000 mg/ Syringe 20 mls @ 5 mls/min IV Q8H JO; Protocol Stop: 02/16/23 21:59 Last Admin: 02/11/23 06:16 Dose: 5 mls/min Metronidazole (Flagyl) 500 mg in 100 mls @ 100 mls/hr IV Q8H JO; Protocol Stop: 02/16/23 21:59 Last Infusion: 02/11/23 07:18 Dose: Infused Daptomycin 625 mg/ Syringe 12.5 mls @ 6.25 mls/min IV Q24H JO; Protocol Stop: 02/17/23 11:59 Last Admin: 02/10/23 12:06 Dose: 6.25 mls/min Promethazine HCl 12.5 mg/ (Sodium Chloride) 50.5 mls @ 202 mls/hr IV Q6H PRN PRN Reason: Nausea And Vomiting Stop: 03/11/23 21:12 Phytonadione 2 mg/ Dextrose 50.2 mls @ 101 mls/hr IV NOW ONE Stop: 02/11/23 08:29 Insulin Aspart (Insulin Aspart Per Unit Charge) 0 units SC [facility] JO; Protocol Stop: 03/11/23 21:29 Last Admin: 02/11/23 07:51 Dose: Not Given Levetiracetam (Levetiracetam 500 Mg Tab) 500 mg PO AMHS JO Stop: 03/11/23 21:12 Last Admin: 02/10/23 20:32 Dose: 500 mg Levothyroxine Sodium (Levothyroxine Sodium 25 Mcg Tablet) 25 mcg PO DAILYBB [facility] Stop: 03/12/23 06:29 Last Admin: 02/11/23 06:18 Dose: 25 mcg Magnesium Hydroxide (Magnesium Hydroxide Susp 30 Ml Udc) 30 ml PO Q12H PRN PRN Reason: Constipation Stop: 03/11/23 21:12 Magnesium Oxide (Magnesium Oxide 400 Mg Tab) 400 mg PO AMHS JO Stop: 03/11/23 21:12 Last Admin: 02/10/23 20:32 Dose: 400 mg Melatonin (Melatonin 3 Mg Tab) 3 mg PO HS PRN PRN Reason: Sleep Stop: 03/12/23 01:24 Last Admin: 02/10/23 01:44 Dose: 3 mg Methenamine Hippurate (Methenamine Hippurate 1 Gm Tab) 1 gm PO BID [facility] Stop: 03/11/23 21:12 Last Admin: 02/10/23 20:32 Dose: 1 gm Miscellaneous (Carbohydrates For Hypoglycemia ) 15 - 30 gm PO UD PRN PRN Reason: Hypoglycemia Protocol Stop: 03/11/23 21:12 Miscellaneous Information (Pharmacy Glycemic Mgmt Consult) 1 each N/A UD PRN PRN Reason: Consult Stop: 03/11/23 21:12 Multivitamins (Multivitamin Tab) 1 tab PO QAM [facility] Stop: 03/12/23 08:59 Last Admin: 02/10/23 08:58 Dose: 1 tab Pantoprazole Sodium (Pantoprazole 40 Mg Tab) 40 mg PO BID [facility] Stop: 03/11/23 21:12 Last Admin: 02/10/23 20:32 Dose: 40 mg Polyethylene Glycol (Polyethylene (Miralax) 17 Gm Pack) 17 gm PO DAILY PRN PRN Reason: Constipation Stop: 03/11/23 21:12 Potassium Chloride (Potassium Chloride 10 Meq Tabcr) 10 meq PO BIDM [facility] Stop: 03/12/23 07:59 Last Admin: 02/10/23 17:42 Dose: 10 meq Ropinirole HCl (Ropinirole Hcl 1 Mg Tablet) 1 mg PO QID [facility] Stop: 03/11/23 21:12 Last Admin: 02/10/23 20:33 Dose: 1 mg Saccharomyces Boulardii (Saccharomyces Boulardii 250 Mg Cap) 250 mg PO BID [facility] Stop: 03/11/23 21:29 Last Admin: 02/10/23 20:32 Dose: 250 mg Spironolactone (Spironolactone 25 Mg Tab) 25 mg PO QAM [facility] Stop: 03/12/23 08:59 Last Admin: 02/10/23 08:57 Dose: 25 mg Tizanidine HCl (Tizanidine Hcl 4 Mg Tablet) 4 mg PO BID@0000,1200 [facility] Stop: 03/12/23 00:00 Last Admin: 02/11/23 00:10 Dose: 4 mg Warfarin Sodium (Warfarin Sod 5 Mg Tab) 5 mg PO [id number] [facility] Stop: 03/12/23 15:59 (1) Sepsis Sepsis acute organ dysfunction status: without acute organ dysfunction Sepsis type: sepsis due to unspecified organism Qualified Code(s): A41.9 - Sepsis, unspecified organism (2) Sacral decubitus ulcer Pressure injury stage: unspecified pressure injury stage Qualified Code(s): L89.159 - Pressure ulcer of sacral region, unspecified stage
[2023-02-11] MEDS ORDERED: PHYTONADIONE 2 MG in DEXTROSE 5% 50 ML IV ONE (08:00)
[2023-02-11 08:24] LABS: Albumin Level 2.9 gm/dl (3.4-5.0); Bilirubin,Total 0.5 mg/dl (0.2-1.0); Calcium 8.6 mg/dl (8.6-10.3); Potassium 4.1 mmol/L (3.5-5.1)
[2023-02-11 08:30] LABS: Albumin Globulin Ratio 0.7 (0.9-2); BUN Creatinine Ratio 23.3 (10-20); Creatinine Clr Calc Pharmacy 107.2 ml/min; Est GFR (African American) 89.2 ml/min; Est GFR (Non-African American) 76.9 ml/min; Globulin 4.1 gm/dl (2.5-4.0); Phosphorus 3.4 mg/dl (2.5-4.9)
[2023-02-11] MEDS: MULTIVITAMIN TAB PO SCH (08:36)
[2023-02-11] MEDS: MAGNESIUM OXIDE 400 MG TAB PO SCH ×2 (08:37→21:43)
[2023-02-11] MEDS: SPIRONOLACTONE 25 MG TAB PO SCH (08:37)
[2023-02-11] MEDS: rOPINIRole HCL 1 MG TABLET PO SCH ×4 (08:37→21:43)
[2023-02-11] MEDS: levETIRAcetam 500 MG TAB PO SCH ×2 (08:37→21:43)
[2023-02-11] MEDS: POTASSIUM CHLORIDE 10 MEQ TABCR PO SCH ×2 (08:37→16:58)
[2023-02-11] MEDS: DOCUSATE SODIUM 100 MG CAP PO SCH ×2 (08:37→21:43)
[2023-02-11] MEDS: DIVALPROEX DELAY RELEASE 500 MG TAB PO SCH ×2 (08:37→21:44)
[2023-02-11] MEDS: ESCITALOPRAM OXALATE 20 MG TAB PO SCH (08:37)
[2023-02-11] MEDS: SACCHAROMYCES BOULARDII 250 MG CAP PO SCH ×2 (08:37→21:43)
[2023-02-11] MEDS: METHENAMINE HIPPURATE 1 GM TAB PO SCH ×2 (08:37→21:43)
[2023-02-11] MEDS: FAMOTIDINE 20 MG TAB PO SCH ×2 (08:37→21:44)
[2023-02-11] MEDS: PANTOprazole 40 MG TAB PO SCH ×2 (08:37→21:44)
[2023-02-11] MEDS: GABAPENTIN 600 MG TAB PO SCH ×2 (08:38→21:43)
[2023-02-11] MEDS: allopurinoL 100 MG TAB PO SCH ×2 (08:38→21:43)
[2023-02-11 10:40] LABS: Prothrombin Time 21.4 Seconds (9.0-12.0)
[2023-02-11] MEDS ORDERED: ePHEDrine sulfate 50 MG/ML AMP IV PRN (11:40)
[2023-02-11] MEDS ORDERED: ATROPINE SULFATE 0.1 MG/ML 10ML SYR IV PRN (11:40)
[2023-02-11] MEDS ORDERED: fentaNYL citrate PF 100 MCG/2 ML VIAL IV PRN (11:40)
[2023-02-11] MEDS ORDERED: ONDANSETRON INJ 2 MG/ML 2 ML VIAL IV PRN (11:40)
--- NOTE | 2023-02-11 11:43 | Pharmacy Report ---
Pharmacy Glycemic Short Note 2 - Date of Service February 11, 2023 - Glycemic Short BSG Results (Last 24 hours): 02/10/23 02/10/23 02/11/23 15:54 20:00 05:59 Glucose 106 H POC Glucose 180 H 177 H 02/11/23 07:49 Glucose POC Glucose 138 H OUTPATIENT ANTIDIABETIC REGIMEN: * Novolin 70/30 64 units SQ BID * Novolin R 4 units TIDM per SSI * metformin 1gm PO BIDM HbA1C: 6.9% ASSESSMENT: 02/11 * BSGs well controlled over last 24 hrs * Patient is NPO this AM for possible debridement with Dr Srivastava, however INR is elevated this AM. IV vit K admin this AM, possible OR later today if coags normalized? He remains NPO at this time. * Given uncertainty with PO intake, will convert to Lantus for basal needs as NPH is not a peakless insulin and has a greater risk of hypoglycemia with frequent changes in diet. Lantus will be given in a scaled dose BID to add an element of safety. * Will change Novolog CF/CR doses based upon prior inpatient needs as well as outpt total daily insulin dose (~140+ units/day) 02/10 * Patient is a 62 year old male admitted with sepsis in setting of sacral decubitus ulcer. History of DM2. Pharmacy consulted to assist with inpatient glycemic management. * BSGs [phone]/dL since admission. No basal last evening. 1 unit of bolus given ~ 0200. * Pt has been NPO for possible debridement. Diet ordered again today for lunch. Also receiving IV antibiotics. * Will give 30 units of NPH this AM (~33% reduction of basal) given NPO status. Evening dose depending on BSGs. Novolog moderate stress scale ACHS. On OR schedule for tomorrow AM. PLAN FOR INPATIENT GLYCEMIC CONTROL: * Hold outpatient oral diabetes medications * Basal insulin * Lantus BID per scale: 0 units if < 110, 22 units if BSG 110-160, 35 units if > 160 * Bolus insulin * NovoLog per scale ACHS or Q6hrs while NPO * Goal Range: Low 110 mg/dL - High 140 mg/dL * Correction Factor: 12 mg/dL/unit * Nutritional / Prandial insulin per carb ratio of 1 unit per 4 grams CHO consumed
[2023-02-11] MEDS ORDERED: INSULIN ASPART PER UNIT CHARGE SC SCH (12:00)
[2023-02-11] MEDS ORDERED: PROPOFOL IV EMULSION 10 MG/ML 20 ML VIAL IV ONE (12:00)
[2023-02-11] MEDS ORDERED: LIDOCAINE 2% 2 ML VIAL/AMP(20MG/ML) INFIL ONE (12:00)
[2023-02-11] MEDS ORDERED: MIDAZOLAM HCL 1 MG/ML 2ML VIAL ONE (12:00)
[2023-02-11] MEDS ORDERED: BUPIVACAINE 0.5 % 5 MG/1 ML MPF 30ML VIAL ONE (12:03)
[2023-02-11] MEDS ORDERED: METHYLENE BLUE 0.5% 10 ML VIAL ONE (12:03)
[2023-02-11] MEDS ORDERED: ESMOLOL HCL INJ 10 MG/ML 10ML VIAL IV ONE (12:39)
[2023-02-11] MEDS ORDERED: FLOSEAL HEMOSTATIC MATRIX 10ML TOP ONE (12:39)
--- NOTE | 2023-02-11 13:01 | Post Operative Brief Note ---
PG Immediate Post Op with CF Date of Surgery February 11, 2023 Pre & Post Diagnosis Operation Date: 02/11/23 10:50 Pre-Op Diagnosis: (1) Sacral decubitus ulcer Post-Op Diagnosis: (1) Sacral decubitus ulcer I identified the patient and participated in the time-out.: Yes Procedure Operation Date: 02/11/23 10:50 Actual Procedures p Debridement of Sacral Ulcer(Not Applicable) - Artemio Srivastava MD, FACS Surgeon Artemio Srivastava MD, FACS Aprn Nurses Estimated Blood Loss 20 Findings Consistent with Post-Op Diagnosis Minimal necrotic tissue with thick scar tissue Ulcer relatively deep down to the bone-likely involving the bone Specimens Specimen Description: culture 1. Sacral Ulcer
--- NOTE | 2023-02-11 13:23 | Anesthesiology Progress Note ---
Date of Service February 11, 2023 Anesthesia Post Procedure Vital Signs Vital Signs: Temp Pulse Pulse Pulse Resp BP BP 02/11/23 13:08 97.3 F L 116 H 18 143/80 H 02/11/23 11:02 98.8 F 93 H 22 106/67 02/11/23 09:23 90 112/64 02/11/23 09:02 02/11/23 08:56 90 113/61 02/11/23 08:32 86 107/62 02/11/23 07:55 98.2 F 83 29 H 97/56 L 02/11/23 07:38 95 H 02/10/23 23:00 89 02/11/23 03:00 98.2 F 97 H 21 121/67 02/10/23 22:54 98.6 F 101 H 19 103/59 L 02/10/23 20:00 02/10/23 19:24 98.2 F 103 H 21 129/74 02/10/23 15:46 98.1 F 85 17 97/62 L 02/10/23 15:36 84 Pulse Ox O2 Del Method O2 Flow Rate 02/11/23 13:08 95 Nasal Cannula 3 02/11/23 11:02 98 Nasal Cannula 3 02/11/23 09:23 02/11/23 09:02 Nasal Cannula 3 02/11/23 08:56 02/11/23 08:32 02/11/23 07:55 90 Room Air 02/11/23 07:38 02/10/23 23:00 02/11/23 03:00 93 Room Air 02/10/23 22:54 92 Room Air 02/10/23 20:00 Room Air 02/10/23 19:24 93 Room Air 02/10/23 15:46 93 Room Air 02/10/23 15:36 Transfer of Care Handoff Completed per policy Notes Mental Status: alert / awake / arousable and participated in evaluation Patient Amnestic to Procedure: Yes Nausea / Vomiting: adequately controlled Pain: adequately controlled Airway Patency, RR, SpO2: stable & adequate BP & HR: stable & adequate Hydration State: stable & adequate Anesthetic Complications: no major complications apparent and Pt Satisfied with anesthetic care
--- NOTE | 2023-02-11 13:35 | Operative Report (OR) ---
DATE OF OPERATION: 02/11/2023. NAME OF OPERATION: Debridement of sacral ulcer. PREOPERATIVE DIAGNOSIS: Sacral ulcer. POSTOPERATIVE DIAGNOSIS: Sacral ulcer. STAFF SURGEON: Artemio Srivastava MD. AUGER PRESS OPERATOR: Nurses. ANESTHESIA: Local with sedation. DESCRIPTION OF PROCEDURE: The patient was brought in the operating room, placed on the operating tab le in the prone position. His sacral area was prepped and draped in the usual fashion. He had a nec rotic ulcer, which actually cleaned up well with some local wound care, but did have some additional necrotic tissue, which I debrided. The ulcer is relatively deep down to the bone and I suspect he hall s osteomyelitis. He did have some bleeding during the procedure and he was somewhat tachycardic. It appeared that the tissue was relatively viable and he did not have significant necrotic tissue noted . It was packed with Betadine gauze and then a dressing applied. The patient was transferred to rec overy room in stable condition. Job ID: [id number]
[2023-02-11] MEDS: DAPTOmycin 625 MG in SYRINGE 0 ML IV SCH (13:37)
[2023-02-11] MEDS ORDERED: LANTUS PER UNIT CHARGE SC SCH ×2 (16:30→18:00)
[2023-02-11] MEDS: HYOSCYAMINE SULFATE 0.125 MG TAB PO SCH (21:43)
[2023-02-12] MEDS: ASCORBIC ACID 500 MG TAB PO SCH ×3 (05:48→17:07)
[2023-02-12] MEDS: BACLOFEN 10 MG TAB PO SCH ×4 (05:48→23:22)
[2023-02-12] MEDS: CEFEPIME 2,000 MG in SYRINGE 0 ML IV SCH ×3 (05:49→21:12)
[2023-02-12] MEDS: LEVOTHYROXINE SODIUM 25 MCG TABLET PO SCH (05:49)
[2023-02-12] MEDS: metroNIDAZOLE 500 MG/100 ML BAG IV SCH ×3 (05:50→21:07)
[2023-02-12 07:38] LABS: Basophils # (auto) 0.07 K/uL (0-0.2); Basophils % (auto) 0.5 %; Eosinophils # (auto) 0.41 K/uL (0-0.50); Eosinophils % (auto) 3.1 %; Hematocrit (blood only) 33.3 % (42.0-52.0); Hemoglobin 10.3 g/dl (14.0-18.0); Immature Granulocytes # (auto) 0.14 K/uL (0.01-0.20); Lymphocytes # (auto) 2.43 K/uL (1.2-3.4); Lymphocytes % (auto) 18.1 %; Mean Corpuscular Hemoglobin 28.2 pg (25.0-34.0); Mean Corpuscular Hgb Conc 30.9 g/dL (32.0-36.0); Mean Corpuscular Volume 91.2 fL (80.0-100.0); Mean Platelet Volume 9.3 fL (9.4-12.4); Monocytes # (auto) 0.91 K/uL (0.11-0.59); Monocytes % (auto) 6.8 %; Neutrophils # (auto) 9.47 K/uL (1.40-6.50); Neutrophils % (auto) 70.5 %; Platelet Count 325 K/uL (130-400); RDW Coefficient of Variation 18.9 % (11.5-14.5); RDW Standard Deviation 63.1 fL (36.4-46.3); Red Blood Count 3.65 M/uL (4.70-6.10); White Blood Count 13.43 K/ul (4.8-10.8)
[2023-02-12 07:58] LABS: BUN Creatinine Ratio 20.8 (10-20); Calcium 8.6 mg/dl (8.6-10.3); Creatinine Clr Calc Pharmacy 109.3 ml/min; Est GFR (African American) 91.3 ml/min; Est GFR (Non-African American) 78.8 ml/min; Magnesium 2.1 mg/dl (1.7-2.4); Phosphorus 3.4 mg/dl (2.5-4.9); Potassium 4.3 mmol/L (3.5-5.1)
[2023-02-12] MEDS ORDERED: INSULIN HUMAN NPH SC ONE (08:02)
[2023-02-12 08:07] LABS: INR 1.3 (0.9-1.1); Prothrombin Time 14.5 Seconds (9.0-12.0)
--- NOTE | 2023-02-12 08:14 | Surgery Progress Note ---
Date of Service February 12, 2023 Assessment & Plan (1) Sacral decubitus ulcer: Plan: POD#1 I&D of sacral wound Betadine packing currently in place. Wound care to evaluate wound for further dressing changes and recs later today OR cultures pending, remains on IV abx for UTI and sacral wound Will need follow up in wound care center upon discharge Remove packing and replace with Aquacel AG (2) Left perineal ischial pressure ulcer: Admission and Anticipated Discharge Date Admission Date: February 09, 2023 Supervising Physician Co-Signing Physician Notes Dr. Sanz with above plan We will have packing removed and replaced with Aquacel Ag as before Patient may benefit from a wound VAC but unsure if this can be controlled with his outpatient situation Dr. Chaudhry covering over the weekend Subjective Patient seen in room. Denies any complaints. Reports no issues with wound overnight. Pain controlled. Diet tolerated. Physical Exam Physical Exam: awake/alert, no distress Musculoskeletal: Did not evaluate bottom as patient eating bfast, wound care to see later today Results & Data Vital Signs (Past 12 Hours) Vital Signs Temp Pulse Pulse Resp BP Pulse Ox O2 Del Method 02/12/23 07:58 36.7 C 114 H 16 141/81 H 99 Nasal Cannula 02/12/23 03:15 37.0 C 97 H 20 93/66 L 99 Nasal Cannula 02/11/23 21:59 114 H 02/11/23 23:31 36.8 C 106 H 18 129/73 98 Nasal Cannula O2 Flow Rate 02/12/23 07:58 3 02/12/23 03:15 3 02/11/23 21:59 02/11/23 23:31 3 PG Care Time/CCT Total # of Minutes Spent Total Time Spent with Patient: Total time spent is greater than 50% in coordination of care (as documented) at patient's floor/unit and/or counseling patient: Coding Level of Care Code 56248 Post Operative Follow-Up Diagnoses Sacral decubitus ulcer L89.159 Pressure injury stage: unspecified pressure injury stage Left perineal ischial pressure ulcer L89.329 (1) Sacral decubitus ulcer Pressure injury stage: unspecified pressure injury stage Qualified Code(s): L89.159 - Pressure ulcer of sacral region, unspecified stage
[2023-02-12] MEDS: INSULIN ASPART PER UNIT CHARGE SC SCH ×4 (08:42→21:57)
[2023-02-12] MEDS: POTASSIUM CHLORIDE 10 MEQ TABCR PO SCH ×2 (08:42→17:07)
[2023-02-12] MEDS: ESCITALOPRAM OXALATE 20 MG TAB PO SCH (08:43)
[2023-02-12] MEDS: SPIRONOLACTONE 25 MG TAB PO SCH (08:43)
[2023-02-12] MEDS: MULTIVITAMIN TAB PO SCH (08:43)
[2023-02-12] MEDS: allopurinoL 100 MG TAB PO SCH ×2 (08:43→21:06)
[2023-02-12] MEDS: METHENAMINE HIPPURATE 1 GM TAB PO SCH ×2 (08:43→21:06)
[2023-02-12] MEDS: GABAPENTIN 600 MG TAB PO SCH ×2 (08:43→21:07)
[2023-02-12] MEDS: PANTOprazole 40 MG TAB PO SCH ×2 (08:43→21:06)
[2023-02-12] MEDS: SACCHAROMYCES BOULARDII 250 MG CAP PO SCH ×2 (08:43→21:06)
[2023-02-12] MEDS: rOPINIRole HCL 1 MG TABLET PO SCH ×4 (08:43→21:06)
[2023-02-12] MEDS: DOCUSATE SODIUM 100 MG CAP PO SCH ×2 (08:43→21:07)
[2023-02-12] MEDS: MAGNESIUM OXIDE 400 MG TAB PO SCH ×2 (08:43→21:06)
[2023-02-12] MEDS: levETIRAcetam 500 MG TAB PO SCH ×2 (08:43→21:06)
[2023-02-12] MEDS: DIVALPROEX DELAY RELEASE 500 MG TAB PO SCH ×2 (08:43→21:07)
[2023-02-12] MEDS: FAMOTIDINE 20 MG TAB PO SCH ×2 (08:43→21:07)
--- NOTE | 2023-02-12 09:01 | Hospitalist Progress Note ---
Date of Service February 12, 2023 Assessment & Plan (1) Sepsis: (2) Sacral decubitus ulcer: (3) Left perineal ischial pressure ulcer: (4) Quadriplegia: (5) Neurogenic bladder: (6) Seizure: (7) DM type 2 (diabetes mellitus, type 2): Plan This is a 62-year-old male who has significant past medical history of quadriplegia secondary to traumatic accident years ago, neurogenic bladder with suprapubic catheter, chronic stage IV decubitus ulcer over the past 10 years follows [facility] wound clinic, insulin-dependent T2DM, CKD stage III in setting of diabetic nephropathy, morbid obesity, HTN, seizure disorder, iron deficiency anemia, MGUS followed with hematology, history of VRE, depression, coagulation disorder on chronic Coumadin therapy who presents to ED secondary to referral by [facility] wound clinic due to worsening sacral wound. Patient meets criteria for sepsis in setting of leukocytosis and tachycardia. Source of infection likely in setting of wound. Wound culture was obtained by ED physician. Blood culture sent. Patient with lactic acidosis of 2.8. Sepsis Stage IV decubitus ulcer Left ischial wound Admitted to PCU Broad-spectrum antibiotics with IV daptomycin, cefepime and Flagyl based on prev ious cultures as discussed with ED physician and pharmacist CK 39, hold statin in setting of Dapto use Infectious disease consulted - reached out to Dr. ross today (02/12/23) - awaiting response Wound care nurse already saw and evaluated patient, wound image evaluated General surgery consult placed - pt previously debridement with Dr. Chaudhry, now seen by Dr. Srivastava - pt is now s/p debridement on (02/11/23), cultx from OR - pending Pt received IVF on admission lactate normalized Hold Lasix for now, consider resuming in a.m. or when appropriate UTI - catheter associated Ucultx - postiive for Pseudomonas Sacrum cultx (02/09/23)- positive for Pseudomonas Decubitus/ sacrum OR cultx - positive for Pseudomonas Seizure d/o pt on keppra pt reports seizure like activity on Wednesday, no missed medications another episode today (02/10/23) - discussed with neurology, patient started on Depakote, MRI brain also ordered. Continue Keppra for now, plan to decrease dose next week. Brain MRI - IMPRESSION: 1. Motion degraded exam without acute intracranial abnormality identified. 2. Involutional changes with chronic microvascular ischemic disease. 3. No abnormal enhancement. Per neurology 02/12/23 1. continue Depakote 500 milligrams p.o. twice a day. 2. Check a trough level after he has been on the medicine for 1-2 weeks. 3. Keep levetiracetam the same for now, but after he has been on Depakote for 2 weeks and the level is adequate, then we will taper off levetiracetam ( 500 milligrams once daily for 2 weeks, then discontinue ). 4. Keep other medications the same for now Insulin-dependent T2DM NPH and NovoLog per protocol Consult assuming pharmacist for assistance in setting of sepsis a1c 6.6 on 01/20/23 Neurogenic bladder Suprapubic catheter in place History of recurrent UTIs Continue methenamine hippurate Colostomy status Patient with colostomy in place to prevent wound soiling Continue routine ostomy care Chronic anticoagulation 2/2 coagulation disorder Supratherapeutic INR warfarin on hold vit K given prior to OR Monitor INR - plan to hold warfarin for 2-3 days post-op per surgery Chronic Quadraplegia 2/2 traumatic accident DVT ppx: warfarin on hold, SCDs Dispo: PCU FULL CODE PCP: Dr. Stanford Admission and Anticipated Discharge Date Admission Date: February 09, 2023 Subjective Pt seen in follow up of sacral wound infection, UTI Currently laying in bed, in no acute distress Denies fevers chills chest pain, shortness of breath. Denies abd. pain Seen by surgery and neuro. Pt had seizure yesterday. brain MRI obtained. Discussed with surgery this morning, INR still supratherapeutic, IV vitamin K given. Plan for OR later this morning. Review of Systems Review of Systems: All systems reviewed & are unremarkable except as noted in Subjective Physical Exam Physical Exam: Constitutional: WD/WN, morbidly ob fany, M in NAD Head : Normocephalic, A traumatic Eyes: P ERRL, conjunctivae normal, anicteric sclerae ENMT: ex ternal ear and nos e normal, orophary nx normal Neck: t hick neck Respirat ory: normal respi ratory effort, [place] gs clear to auscul tation, no wheeze, rales, rhonchi. Normal insp/exp ef fort, no accessory muscle use Cardio vascular: RRR, no murmur, no edema Vessels: no JVD o r carotid bruit Ch est: normal inspec tion of chest Abdo men: obese abd, +L midline colostomy with brown stool output, normal bow el sounds, soft, n ontender Musculosk eletal:+quad with limited movement to upper ext Skin: no rashes, warm and dry normal tu rgor Neurologic: PERRL, no face pal sy, no dysarthria Psychiatric: A+Ox 3, euthymic affect : +suprapubic c ath no surrounding erythema or drain age, urbina bag wit h clear urine Results & Data Results & Data Vital Signs (Past 12 Hours) Vital Signs Temp Pulse Pulse Resp BP Pulse Ox O2 Del Method 02/12/23 07:58 36.7 C 114 H 16 141/81 H 99 Nasal Cannula 02/12/23 03:15 37.0 C 97 H 20 93/66 L 99 Nasal Cannula 02/11/23 21:59 114 H 02/11/23 23:31 36.8 C 106 H 18 129/73 98 Nasal Cannula O2 Flow Rate 02/12/23 07:58 3 02/12/23 03:15 3 02/11/23 21:59 02/11/23 23:31 3 Laboratory Results 02/12/23 02/12/23 02/12/23 Range/Units 07:28 06:22 06:22 WBC 13.43 H (4.8-10.8) K/ul RBC 3.65 L (4.70-6.10) M/uL Hgb 10.3 L (14.0-18.0) g/dl Hct 33.3 L (42.0-52.0) % MCV 91.2 (80.0-100.0) fL MCH 28.2 (25.0-34.0) pg MCHC 30.9 L (32.0-36.0) g/dL RDW Std Deviation 63.1 H (36.4-46.3) fL RDW Coeff of Yoseph 18.9 H (11.5-14.5) % Plt Count 325 (130-400) K/uL MPV 9.3 L (9.4-12.4) fL Immature Gran % (Auto) 1.0 % Neut % (Auto) 70.5 % Lymph % (Auto) 18.1 % [place] % (Auto) 6.8 % Eos % (Auto) 3.1 % Baso % (Auto) 0.5 % Neut # (Auto) 9.47 H (1.40-6.50) K/uL Lymph # (Auto) 2.43 (1.2-3.4) K/uL [place] # (Auto) 0.91 H (0.11-0.59) K/uL Eos # (Auto) 0.41 (0-0.50) K/uL Baso # (Auto) 0.07 (0-0.2) K/uL Immature Gran # (Auto) 0.14 (0.01-0.20) K/uL PT 14.5 H (9.0-12.0) Seconds INR 1.3 H (0.9-1.1) Sodium (136-145) mmol/L Potassium (3.5-5.1) mmol/L Chloride (98-107) mmol/L Carbon Dioxide (21-32) mmol/L Anion Gap (3-11) BUN (6-23) mg/dl Creatinine (0.6-1.4) mg/dl Est Cr Clr Drug Dosing ml/min Est GFR ( Amer) ml/min Est GFR (Non-Af Amer) ml/min BUN/Creatinine Ratio (10-20) Glucose (70-99(Fasting)) mg/dl POC Glucose 134 H (70-99) mg/dl Calcium (8.6-10.3) mg/dl Phosphorus (2.5-4.9) mg/dl Magnesium (1.7-2.4) mg/dl Hepatitis C Ab (EIA) (NON-REACTIVE) Hep C Ab Signal/Cutoff (<1.00) 02/12/23 02/11/23 02/11/23 Range/Units 06:22 20:22 16:16 WBC (4.8-10.8) K/ul RBC (4.70-6.10) M/uL Hgb (14.0-18.0) g/dl Hct (42.0-52.0) % MCV (80.0-100.0) fL MCH (25.0-34.0) pg MCHC (32.0-36.0) g/dL RDW Std Deviation (36.4-46.3) fL RDW Coeff of Yoseph (11.5-14.5) % Plt Count (130-400) K/uL MPV (9.4-12.4) fL Immature Gran % (Auto) % Neut % (Auto) % Lymph % (Auto) % [place] % (Auto) % Eos % (Auto) % Baso % (Auto) % Neut # (Auto) (1.40-6.50) K/uL Lymph # (Auto) (1.2-3.4) K/uL [place] # (Auto) (0.11-0.59) K/uL Eos # (Auto) (0-0.50) K/uL Baso # (Auto) (0-0.2) K/uL Immature Gran # (Auto) (0.01-0.20) K/uL PT (9.0-12.0) Seconds INR (0.9-1.1) Sodium 138 (136-145) mmol/L Potassium 4.3 (3.5-5.1) mmol/L Chloride 101 (98-107) mmol/L Carbon Dioxide 33 H (21-32) mmol/L Anion Gap 4 (3-11) BUN 21 (6-23) mg/dl Creatinine 1.01 (0.6-1.4) mg/dl Est Cr Clr Drug Dosing 109.3 ml/min Est GFR ( Amer) 91.3 ml/min Est GFR (Non-Af Amer) 78.8 ml/min BUN/Creatinine Ratio 20.8 H (10-20) Glucose 122 H (70-99(Fasting)) mg/dl POC Glucose 201 H 160 H (70-99) mg/dl Calcium 8.6 (8.6-10.3) mg/dl Phosphorus 3.4 (2.5-4.9) mg/dl Magnesium 2.1 (1.7-2.4) mg/dl Hepatitis C Ab (EIA) (NON-REACTIVE) Hep C Ab Signal/Cutoff (<1.00) 02/11/23 02/11/23 02/10/23 Range/Units 13:09 09:53 06:04 WBC (4.8-10.8) K/ul RBC (4.70-6.10) M/uL Hgb (14.0-18.0) g/dl Hct (42.0-52.0) % MCV (80.0-100.0) fL MCH (25.0-34.0) pg MCHC (32.0-36.0) g/dL RDW Std Deviation (36.4-46.3) fL RDW Coeff of Yoseph (11.5-14.5) % Plt Count (130-400) K/uL MPV (9.4-12.4) fL Immature Gran % (Auto) % Neut % (Auto) % Lymph % (Auto) % [place] % (Auto) % Eos % (Auto) % Baso % (Auto) % Neut # (Auto) (1.40-6.50) K/uL Lymph # (Auto) (1.2-3.4) K/uL [place] # (Auto) (0.11-0.59) K/uL Eos # (Auto) (0-0.50) K/uL Baso # (Auto) (0-0.2) K/uL Immature Gran # (Auto) (0.01-0.20) K/uL PT 21.4 H (9.0-12.0) Seconds INR 2.0 H (0.9-1.1) Sodium (136-145) mmol/L Potassium (3.5-5.1) mmol/L Chloride (98-107) mmol/L Carbon Dioxide (21-32) mmol/L Anion Gap (3-11) BUN (6-23) mg/dl Creatinine (0.6-1.4) mg/dl Est Cr Clr Drug Dosing ml/min Est GFR ( Amer) ml/min Est GFR (Non-Af Amer) ml/min BUN/Creatinine Ratio (10-20) Glucose (70-99(Fasting)) mg/dl POC Glucose 123 H (70-99) mg/dl Calcium (8.6-10.3) mg/dl Phosphorus (2.5-4.9) mg/dl Magnesium (1.7-2.4) mg/dl Hepatitis C Ab (EIA) NON-REACTIVE (NON-REACTIVE) Hep C Ab Signal/Cutoff 0.07 (<1.00) Medications Administered Current Inpatient Medications Acetaminophen (Acetaminophen 325 Mg Tab) 650 mg PO Q4H PRN PRN Reason: Pain or Fever Stop: 03/11/23 21:12 Last Admin: 02/11/23 13:41 Dose: 650 mg Al Hydrox/Mg Hydrox/Simethicone (Aluminum/Magnesium Susp 30 Ml Udc) 15 ml PO Q4H PRN PRN Reason: Dyspepsia Stop: 03/11/23 21:12 Allopurinol (Allopurinol 100 Mg Tab) 100 mg PO BID [facility] Stop: 03/11/23 21:12 Last Admin: 02/12/23 08:43 Dose: 100 mg Ascorbic Acid (Ascorbic Acid 500 Mg Tab) 250 mg PO TID@0600,1200,1800 [facility] Stop: 03/11/23 21:12 Last Admin: 02/12/23 05:48 Dose: 250 mg Baclofen (Baclofen 10 Mg Tab) 10 mg PO DAILY@0000 [facility] Stop: 03/12/23 00:00 Last Admin: 02/11/23 23:14 Dose: 10 mg Baclofen (Baclofen 10 Mg Tab) 5 mg PO TID@0600,1200,1800 [facility] Stop: 03/12/23 05:59 Last Admin: 02/12/23 05:48 Dose: 5 mg Cyclobenzaprine HCl (Cyclobenzaprine Hcl 5 Mg Tab) 15 mg PO DAILY@0000 [facility] Stop: 03/12/23 00:00 Last Admin: 02/11/23 23:15 Dose: 15 mg Dextrose (Dextrose 50% 50 Ml Syringe) 25 - 50 ml IV UD PRN; Protocol PRN Reason: Hypoglycemia Protocol Stop: 03/11/23 21:12 Divalproex Sodium (Divalproex Delay Release 500 Mg Tab) 500 mg PO BID [facility] Stop: 03/12/23 10:59 Last Admin: 02/12/23 08:43 Dose: 500 mg Docusate Sodium (Docusate Sodium 100 Mg Cap) 100 mg PO AMHS [facility] Stop: 03/11/23 21:12 Last Admin: 02/12/23 08:43 Dose: 100 mg Escitalopram Oxalate (Escitalopram Oxalate 20 Mg Tab) 20 mg PO QAM [facility] Stop: 03/12/23 08:59 Last Admin: 02/12/23 08:43 Dose: 20 mg Famotidine (Famotidine 20 Mg Tab) 20 mg PO BID [facility] Stop: 03/11/23 21:12 Last Admin: 02/12/23 08:43 Dose: 20 mg Gabapentin (Gabapentin 600 Mg Tab) 600 mg PO BID JO Stop: 03/11/23 21:12 Last Admin: 02/12/23 08:43 Dose: 600 mg Glucagon (Glucagon For Inj 1 Mg Vial) 1 mg SQ UD PRN; Protocol PRN Reason: Hypoglycemia Protocol Stop: 03/11/23 21:12 Glucose (Glucose 10 Tab/Tube) 4 - 8 tab PO UD PRN; Protocol PRN Reason: Hypoglycemia Treatment Stop: 03/11/23 21:12 Glucose (Glucose 40% Gel 15 Gm Tube) 15 - 30 gm PO UD PRN; Protocol PRN Reason: Hypoglycemia Protocol Stop: 03/11/23 21:12 Hyoscyamine (Hyoscyamine Sulfate 0.125 Mg Tab) 0.125 mg PO QPM JO Stop: 03/11/23 21:12 Last Admin: 02/11/23 21:43 Dose: 0.125 mg Cefepime HCl 2,000 mg/ Syringe 20 mls @ 5 mls/min IV Q8H JO; Protocol Stop: 02/16/23 21:59 Last Admin: 02/12/23 05:49 Dose: 5 mls/min Metronidazole (Flagyl) 500 mg in 100 mls @ 100 mls/hr IV Q8H JO; Protocol Stop: 02/16/23 21:59 Last Infusion: 02/12/23 06:52 Dose: Infused Daptomycin 625 mg/ Syringe 12.5 mls @ 6.25 mls/min IV Q24H JO; Protocol Stop: 02/17/23 11:59 Last Admin: 02/11/23 13:37 Dose: 6.25 mls/min Promethazine HCl 12.5 mg/ (Sodium Chloride) 50.5 mls @ 202 mls/hr IV Q6H PRN PRN Reason: Nausea And Vomiting Stop: 03/11/23 21:12 Insulin Aspart (Insulin Aspart Per Unit Charge) 0 units SC ACHS JO; Protocol Stop: 03/13/23 16:29 Last Admin: 02/12/23 08:42 Dose: 15 units Levetiracetam (Levetiracetam 500 Mg Tab) 500 mg PO AMHS JO Stop: 03/11/23 21:12 Last Admin: 02/12/23 08:43 Dose: 500 mg Levothyroxine Sodium (Levothyroxine Sodium 25 Mcg Tablet) 25 mcg PO DAILYBB [facility] Stop: 03/12/23 06:29 Last Admin: 02/12/23 05:49 Dose: 25 mcg Magnesium Hydroxide (Magnesium Hydroxide Susp 30 Ml Udc) 30 ml PO Q12H PRN PRN Reason: Constipation Stop: 03/11/23 21:12 Magnesium Oxide (Magnesium Oxide 400 Mg Tab) 400 mg PO AMHS JO Stop: 03/11/23 21:12 Last Admin: 02/12/23 08:43 Dose: 400 mg Melatonin (Melatonin 3 Mg Tab) 3 mg PO HS PRN PRN Reason: Sleep Stop: 03/12/23 01:24 Last Admin: 02/10/23 01:44 Dose: 3 mg Methenamine Hippurate (Methenamine Hippurate 1 Gm Tab) 1 gm PO BID JO Stop: 03/11/23 21:12 Last Admin: 02/12/23 08:43 Dose: 1 gm Miscellaneous (Carbohydrates For Hypoglycemia ) 15 - 30 gm PO UD PRN PRN Reason: Hypoglycemia Protocol Stop: 03/11/23 21:12 Miscellaneous Information (Pharmacy Glycemic Mgmt Consult) 1 each N/A UD PRN PRN Reason: Consult Stop: 03/11/23 21:12 Multivitamins (Multivitamin Tab) 1 tab PO QAM [facility] Stop: 03/12/23 08:59 Last Admin: 02/12/23 08:43 Dose: 1 tab Pantoprazole Sodium (Pantoprazole 40 Mg Tab) 40 mg PO BID [facility] Stop: 03/11/23 21:12 Last Admin: 02/12/23 08:43 Dose: 40 mg Polyethylene Glycol (Polyethylene (Miralax) 17 Gm Pack) 17 gm PO DAILY PRN PRN Reason: Constipation Stop: 03/11/23 21:12 Potassium Chloride (Potassium Chloride 10 Meq Tabcr) 10 meq PO BIDM [facility] Stop: 03/12/23 07:59 Last Admin: 02/12/23 08:42 Dose: 10 meq Ropinirole HCl (Ropinirole Hcl 1 Mg Tablet) 1 mg PO QID [facility] Stop: 03/11/23 21:12 Last Admin: 02/12/23 08:43 Dose: 1 mg Saccharomyces Boulardii (Saccharomyces Boulardii 250 Mg Cap) 250 mg PO BID [facility] Stop: 03/11/23 21:29 Last Admin: 02/12/23 08:43 Dose: 250 mg Spironolactone (Spironolactone 25 Mg Tab) 25 mg PO QAM [facility] Stop: 03/12/23 08:59 Last Admin: 02/12/23 08:43 Dose: 25 mg Tizanidine HCl (Tizanidine Hcl 4 Mg Tablet) 4 mg PO BID@0000,1200 [facility] Stop: 03/12/23 00:00 Last Admin: 02/11/23 23:14 Dose: 4 mg Warfarin Sodium (Warfarin Sod 5 Mg Tab) 5 mg PO [id number] [facility] Stop: 03/12/23 15:59 (1) Sepsis Sepsis acute organ dysfunction status: without acute organ dysfunction Sepsis type: sepsis due to unspecified organism Qualified Code(s): A41.9 - Sepsis, unspecified organism (2) Sacral decubitus ulcer Pressure injury stage: unspecified pressure injury stage Qualified Code(s): L89.159 - Pressure ulcer of sacral region, unspecified stage
--- NOTE | 2023-02-12 09:56 | Neurology Progress Note ---
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 Left arm is worse than the r ight and he has a significant neurogenic bladder requiring indwelling suprapubic catheter. The patient has a history of intermittent seizure-like activity and we witnessed a seizure today. The description is a primary generalized event. Although the etiology of the seizure is not readily apparent he tends to have these during times of sepsis and infection ( which he has). He is on levetiracetam 500 mg twice daily His well as Depakote 500 milligrams twice daily. Recommendations: 1. continue Depakote 500 milligrams p.o. twice a day. 2. Check a trough level after he has been on the medicine for 1-2 weeks. 3. Keep levetiracetam the same for now, but after he has been on Depakote for 2 weeks and the level is adequate, then we will taper off levetiracetam ( 500 milligrams once daily for 2 weeks, then discontinue ). 4. Keep other medications the same for now Overall, I spent a total of 35 minutes with this case including review of records, Review of MRI films, report generation, direct evaluation the patient at bedside, and discussion of the case with the patient and RN at bedside, and Dr. Roach including differential diagnosis and treatment options. Admission and Anticipated Discharge Date Admission Date: February 09, 2023 Subjective The patient feels at baseline/ fine. He underwent debridement for his sacral ulcer /wound yesterday and is stable from this as well. According to the patient and nurses he has had no seizures since admission. He is tolerating the Depakote well. Blood pressure is 141/81 and he is afebrile. This morning, CBC showed a white count of 13, hemoglobin of 10 and hematocrit of 33. Glucose was 122. MRI of the brain was obtained and showed no significant abnormalities although there was mild generalized atrophy and old small vessel ischemic disease. I reviewed these films. Results & Data Vital Signs (Past 12 Hours) Vital Signs Temp Pulse Pulse Resp BP Pulse Ox O2 Del Method 02/12/23 07:58 36.7 C 114 H 16 141/81 H 99 Nasal Cannula 02/12/23 03:15 37.0 C 97 H 20 93/66 L 99 Nasal Cannula 02/11/23 21:59 114 H 02/11/23 23:31 36.8 C 106 H 18 129/73 98 Nasal Cannula O2 Flow Rate 02/12/23 07:58 3 02/12/23 03:15 3 02/11/23 21:59 02/11/23 23:31 3 Exam (Neuro) Physical Exam: he is awake and alert. Speech is without aphasia or dysarthria. Mood and affect are normal appropriate. Thought processes are intact. Extraocular eye muscles are intact without nystagmus. There is no facial droop. Arm strength is about the same and I see no tremor or other abnormal involuntary movements. PG Care Time/CCT Total # of Minutes Spent Total Time Spent with Patient: Total time spent is greater than 50% in coordination of care (as documented) at patient's floor/unit and/or counseling patient: Coding Level of Care Code 78641 SUB INP/OBS CARE 2/35MIN Diagnoses Seizure R56.9 Diplegia of lower extremities G82.20 Neurogenic bladder N31.9
--- NOTE | 2023-02-12 09:57 | Pharmacy Report ---
Pharmacy Glycemic Short Note 2 - Date of Service February 12, 2023 - Glycemic Short BSG Results (Last 24 hours): 02/11/23 02/11/23 02/11/23 13:09 16:16 20:22 Glucose POC Glucose 123 H 160 H 201 H 02/12/23 02/12/23 06:22 07:28 Glucose 122 H POC Glucose 134 H OUTPATIENT ANTIDIABETIC REGIMEN: * Novolin 70/30 64 units SQ BID * Novolin R 4 units TIDM per SSI * metformin 1gm PO BIDM HbA1C: 6.9% ASSESSMENT: 02/12 * Patient went to OR yesterday for debridement. Ordered diet afterwards and patient ate dinner. * Notable increase in BSG from dinner to bedtime likely 2nd insufficient prandial coverage. Correction factor and CHO ratio on previous admissions was tighter than current. Will tighten Novolog * Now ordered diet - will switch back to NPH to help with eventual discharge planning. Will resume close to home dose, (as NPH component of Novolin 70/30). May increase if BSG's notably rise. 02/11 * BSGs well controlled over last 24 hrs * Patient is NPO this AM for possible debridement with Dr Srivastava, however INR is elevated this AM. IV vit K admin this AM, possible OR later today if coags normalized? He remains NPO at this time. * Given uncertainty with PO intake, will convert to Lantus for basal needs as NPH is not a peakless insulin and has a greater risk of hypoglycemia with frequent changes in diet. Lantus will be given in a scaled dose BID to add an element of safety. * Will change Novolog CF/CR doses based upon prior inpatient needs as well as outpt total daily insulin dose (~140+ units/day) 02/10 * Patient is a 62 year old male admitted with sepsis in setting of sacral decubitus ulcer. History of DM2. Pharmacy consulted to assist with inpatient glycemic management. * BSGs [phone]/dL since admission. No basal last evening. 1 unit of bolus given ~ 0200. * Pt has been NPO for possible debridement. Diet ordered again today for lunch. Also receiving IV antibiotics. * Will give 30 units of NPH this AM (~33% reduction of basal) given NPO status. Evening dose depending on BSGs. Novolog moderate stress scale ACHS. On OR schedule for tomorrow AM. PLAN FOR INPATIENT GLYCEMIC CONTROL: * Hold outpatient oral diabetes medications * Basal insulin * NPH 40 units SC x1 this AM. Ongoing 40-50 units SC BIDM based on BSG * Bolus insulin * NovoLog per scale ACHS or Q6hrs while NPO * Goal Range: Low 110 mg/dL - High 140 mg/dL * Correction Factor: 10 g/dL/unit * Nutritional / Prandial insulin per carb ratio of 1 unit per 3 grams CHO consumed
[2023-02-12] MEDS: DAPTOmycin 625 MG in SYRINGE 0 ML IV SCH (12:41)
[2023-02-12] MEDS: tiZANidine HCL 4 MG TABLET PO SCH ×2 (12:41→23:22)
[2023-02-12] MEDS: WARFARIN SOD 5 MG TAB PO SCH (17:07)
[2023-02-12] MEDS: INSULIN HUMAN NPH SC SCH (18:00)
[2023-02-12] MEDS: HYOSCYAMINE SULFATE 0.125 MG TAB PO SCH (21:07)
[2023-02-12] MEDS: CYCLOBENZAPRINE HCL 5 MG TAB PO SCH (23:22)
[2023-02-13] MEDS: LEVOTHYROXINE SODIUM 25 MCG TABLET PO SCH (06:02)
[2023-02-13] MEDS: ASCORBIC ACID 500 MG TAB PO SCH ×3 (06:02→17:21)
[2023-02-13] MEDS: CEFEPIME 2,000 MG in SYRINGE 0 ML IV SCH ×3 (06:04→22:32)
[2023-02-13] MEDS: metroNIDAZOLE 500 MG/100 ML BAG IV SCH ×3 (06:04→20:54)
[2023-02-13] MEDS: BACLOFEN 10 MG TAB PO SCH ×4 (06:08→22:57)
--- NOTE | 2023-02-13 07:39 | Hospitalist Progress Note ---
Date of Service February 13, 2023 Assessment & Plan (1) Sepsis: (2) Sacral decubitus ulcer: (3) Left perineal ischial pressure ulcer: (4) Quadriplegia: (5) Neurogenic bladder: (6) Seizure: (7) DM type 2 (diabetes mellitus, type 2): Plan This is a 62-year-old male who has significant past medical history of quadriplegia secondary to traumatic accident years ago, neurogenic bladder with suprapubic catheter, chronic stage IV decubitus ulcer over the past 10 years follows [facility] wound clinic, insulin-dependent T2DM, CKD stage III in setting of diabetic nephropathy, morbid obesity, HTN, seizure disorder, iron deficiency anemia, MGUS followed with hematology, history of VRE, depression, coagulation disorder on chronic Coumadin therapy who presents to ED secondary to referral by [facility] wound clinic due to worsening sacral wound. Patient meets criteria for sepsis in setting of leukocytosis and tachycardia. Source of infection likely in setting of wound. Wound culture was obtained by ED physician. Blood culture sent. Patient with lactic acidosis of 2.8. Sepsis Stage IV decubitus ulcer Left ischial wound Admitted to PCU Broad-spectrum antibiotics with IV daptomycin, cefepime and Flagyl based on pre vious cultures as discussed with ED physician and pharmacist CK 39, hold statin in setting of Dapto use Infectious disease consulted - reached out to Dr. Boyd on (02/12/23) - awaiting response Wound care nurse already saw and evaluated patient, wound image evaluated General surgery consult placed - pt previously debridement with Dr. Chaudhry, now seen by Dr. Srivastava - pt is now s/p debridement on (02/11/23), cultx from OR obtained Pt received IVF on admission lactate normalized Hold Lasix for now, consider resuming in a.m. or when appropriate UTI - catheter associated Ucultx - positive for Pseudomonas (resistant for Cipro) Sacrum cultx (02/09/23)- positive for Pseudomonas (sens. to Cipro) Decubitus/ sacrum OR cultx - positive for Pseudomonas Seizure d/o pt on keppra pt reports seizure like activity on Wednesday, no missed medications another episode today (02/10/23) - discussed with neurology, patient started on Depakote, MRI brain also ordered. Continue Keppra for now, plan to decrease dose next week. Brain MRI - IMPRESSION: 1. Motion degraded exam without acute intracranial abnormality identified. 2. Involutional changes with chronic microvascular ischemic disease. 3. No abnormal enhancement. Per neurology 02/12/23 1. Continue Depakote 500 milligrams p.o. twice a day. 2. Check a trough level after he has been on the medicine for 1-2 weeks. 3. Keep levetiracetam the same for now, but after he has been on Depakote for 2 weeks and the level is adequate, then we will taper off levetiracetam ( 500 mg once daily for 2 weeks, then discontinue ). 4. Keep other medications the same for now Insulin-dependent T2DM NPH and NovoLog per protocol Consult assuming pharmacist for assistance in setting of sepsis a1c 6.6 on 01/20/23 Neurogenic bladder Suprapubic catheter in place History of recurrent UTIs Continue methenamine hippurate Colostomy status Patient with colostomy in place to prevent wound soiling Continue routine ostomy care Chronic anticoagulation 2/2 coagulation disorder Supratherapeutic INR warfarin on hold vit K given prior to OR Monitor INR - plan to hold warfarin for 2-3 days post-op per surgery Chronic Quadraplegia 2/2 traumatic accident DVT ppx: warfarin on hold, SCDs Dispo: PCU FULL CODE PCP: Dr. Stanford Admission and Anticipated Discharge Date Admission Date: February 09, 2023 Subjective Pt seen in follow up of sacral wound infection, UTI, seizure Currently laying in bed, in no acute distress Denies fevers chills chest pain, shortness of breath. Denies abd. pain Seen by surgery and neuro. S/p surg. debridement Pt's present at the bedside and updated. Review of Systems Review of Systems: All systems reviewed & are unremarkable except as noted in Subjective Physical Exam Physical Exam: Constitutional: WD/WN, morbidly ob fany, M in NAD Head : Normocephalic, A traumatic Eyes: P ERRL, conjunctivae normal, anicteric sclerae ENMT: ex ternal ear and nos e normal, orophary nx normal Neck: t hick neck Respirat ory: normal respi ratory effort, [place] gs clear to auscul tation, no wheeze, rales, rhonchi. Normal insp/exp ef fort, no accessory muscle use Cardio vascular: RRR, no murmur, no edema Vessels: no JVD o r carotid bruit Ch est: normal inspec tion of chest Abdo men: obese abd, +L midline colostomy with brown stool output, normal bow el sounds, soft, n ontender Musculosk eletal:+quad with limited movement to upper ext Skin: no rashes, warm and dry normal tu rgor Neurologic: PERRL, no face pal sy, no dysarthria Psychiatric: A+Ox 3, euthymic affect : +suprapubic c ath no surrounding erythema or drain age, urbina bag wit h clear urine Results & Data Results & Data Vital Signs (Past 12 Hours) Vital Signs Temp Pulse Pulse Resp BP Pulse Ox Pulse Ox 02/13/23 07:29 36.5 C 98 H 17 123/67 93 02/12/23 22:00 106 H 02/12/23 21:30 02/13/23 03:25 36.7 C 82 22 93/58 L 93 02/12/23 23:17 37.1 C 110 H 22 116/66 96 02/12/23 21:00 92 O2 Del Method O2 Del Method O2 Flow Rate 02/13/23 07:29 Room Air 02/12/23 22:00 02/12/23 21:30 Room Air 02/13/23 03:25 Room Air 02/12/23 23:17 Room Air 02/12/23 21:00 Nasal Cannula 4 Laboratory Results 02/13/23 02/13/23 02/13/23 Range/Units 11:04 07:18 06:57 WBC (4.8-10.8) K/ul RBC (4.70-6.10) M/uL Hgb (14.0-18.0) g/dl Hct (42.0-52.0) % MCV (80.0-100.0) fL MCH (25.0-34.0) pg MCHC (32.0-36.0) g/dL RDW Std Deviation (36.4-46.3) fL RDW Coeff of Yoseph (11.5-14.5) % Plt Count (130-400) K/uL MPV (9.4-12.4) fL PT 14.6 H (9.0-12.0) Seconds INR 1.4 H (0.9-1.1) Sodium (136-145) mmol/L Potassium (3.5-5.1) mmol/L Chloride (98-107) mmol/L Carbon Dioxide (21-32) mmol/L Anion Gap (3-11) BUN (6-23) mg/dl Creatinine (0.6-1.4) mg/dl Est Cr Clr Drug Dosing ml/min Est GFR ( Amer) ml/min Est GFR (Non-Af Amer) ml/min BUN/Creatinine Ratio (10-20) Glucose (70-99(Fasting)) mg/dl POC Glucose 201 H 116 H (70-99) mg/dl Calcium (8.6-10.3) mg/dl Levetiracetam (6.0-46.0) mcg/mL 02/13/23 02/13/23 02/12/23 Range/Units 06:57 06:57 21:09 WBC 13.63 H (4.8-10.8) K/ul RBC 3.64 L (4.70-6.10) M/uL Hgb 10.2 L (14.0-18.0) g/dl Hct 33.0 L (42.0-52.0) % MCV 90.7 (80.0-100.0) fL MCH 28.0 (25.0-34.0) pg MCHC 30.9 L (32.0-36.0) g/dL RDW Std Deviation 62.9 H (36.4-46.3) fL RDW Coeff of Yoseph 19.0 H (11.5-14.5) % Plt Count 324 (130-400) K/uL MPV 9.3 L (9.4-12.4) fL PT (9.0-12.0) Seconds INR (0.9-1.1) Sodium 137 (136-145) mmol/L Potassium 4.0 (3.5-5.1) mmol/L Chloride 101 (98-107) mmol/L Carbon Dioxide 31 (21-32) mmol/L Anion Gap 5 (3-11) BUN 22 (6-23) mg/dl Creatinine 0.90 (0.6-1.4) mg/dl Est Cr Clr Drug Dosing 122.7 ml/min Est GFR ( Amer) 105.0 ml/min Est GFR (Non-Af Amer) 90.6 ml/min BUN/Creatinine Ratio 24.4 H (10-20) Glucose 103 H (70-99(Fasting)) mg/dl POC Glucose 195 H (70-99) mg/dl Calcium 8.8 (8.6-10.3) mg/dl Levetiracetam (6.0-46.0) mcg/mL 02/12/23 02/09/23 Range/Units 16:29 18:16 WBC (4.8-10.8) K/ul RBC (4.70-6.10) M/uL Hgb (14.0-18.0) g/dl Hct (42.0-52.0) % MCV (80.0-100.0) fL MCH (25.0-34.0) pg MCHC (32.0-36.0) g/dL RDW Std Deviation (36.4-46.3) fL RDW Coeff of Yoseph (11.5-14.5) % Plt Count (130-400) K/uL MPV (9.4-12.4) fL PT (9.0-12.0) Seconds INR (0.9-1.1) Sodium (136-145) mmol/L Potassium (3.5-5.1) mmol/L Chloride (98-107) mmol/L Carbon Dioxide (21-32) mmol/L Anion Gap (3-11) BUN (6-23) mg/dl Creatinine (0.6-1.4) mg/dl Est Cr Clr Drug Dosing ml/min Est GFR ( Amer) ml/min Est GFR (Non-Af Amer) ml/min BUN/Creatinine Ratio (10-20) Glucose (70-99(Fasting)) mg/dl POC Glucose 143 H (70-99) mg/dl Calcium (8.6-10.3) mg/dl Levetiracetam 18.0 (6.0-46.0) mcg/mL Medications Administered Current Inpatient Medications Acetaminophen (Acetaminophen 325 Mg Tab) 650 mg PO Q4H PRN PRN Reason: Pain or Fever Stop: 03/11/23 21:12 Last Admin: 02/11/23 13:41 Dose: 650 mg Al Hydrox/Mg Hydrox/Simethicone (Aluminum/Magnesium Susp 30 Ml Udc) 15 ml PO Q4H PRN PRN Reason: Dyspepsia Stop: 03/11/23 21:12 Allopurinol (Allopurinol 100 Mg Tab) 100 mg PO BID [facility] Stop: 03/11/23 21:12 Last Admin: 02/12/23 21:06 Dose: 100 mg Ascorbic Acid (Ascorbic Acid 500 Mg Tab) 250 mg PO TID@0600,1200,1800 [facility] Stop: 03/11/23 21:12 Last Admin: 02/13/23 06:02 Dose: 250 mg Baclofen (Baclofen 10 Mg Tab) 10 mg PO DAILY@0000 [facility] Stop: 03/12/23 00:00 Last Admin: 02/12/23 23:22 Dose: 10 mg Baclofen (Baclofen 10 Mg Tab) 5 mg PO TID@0600,1200,1800 [facility] Stop: 03/12/23 05:59 Last Admin: 02/13/23 06:08 Dose: 5 mg Cyclobenzaprine HCl (Cyclobenzaprine Hcl 5 Mg Tab) 15 mg PO DAILY@0000 [facility] Stop: 03/12/23 00:00 Last Admin: 02/12/23 23:22 Dose: 15 mg Dextrose (Dextrose 50% 50 Ml Syringe) 25 - 50 ml IV UD PRN; Protocol PRN Reason: Hypoglycemia Protocol Stop: 03/11/23 21:12 Divalproex Sodium (Divalproex Delay Release 500 Mg Tab) 500 mg PO BID [facility] Stop: 03/12/23 10:59 Last Admin: 02/12/23 21:07 Dose: 500 mg Docusate Sodium (Docusate Sodium 100 Mg Cap) 100 mg PO AMHS [facility] Stop: 03/11/23 21:12 Last Admin: 02/12/23 21:07 Dose: 100 mg Escitalopram Oxalate (Escitalopram Oxalate 20 Mg Tab) 20 mg PO QAM [facility] Stop: 03/12/23 08:59 Last Admin: 02/12/23 08:43 Dose: 20 mg Famotidine (Famotidine 20 Mg Tab) 20 mg PO BID [facility] Stop: 03/11/23 21:12 Last Admin: 02/12/23 21:07 Dose: 20 mg Gabapentin (Gabapentin 600 Mg Tab) 600 mg PO BID [facility] Stop: 03/11/23 21:12 Last Admin: 02/12/23 21:07 Dose: 600 mg Glucagon (Glucagon For Inj 1 Mg Vial) 1 mg SQ UD PRN; Protocol PRN Reason: Hypoglycemia Protocol Stop: 03/11/23 21:12 Glucose (Glucose 10 Tab/Tube) 4 - 8 tab PO UD PRN; Protocol PRN Reason: Hypoglycemia Treatment Stop: 03/11/23 21:12 Glucose (Glucose 40% Gel 15 Gm Tube) 15 - 30 gm PO UD PRN; Protocol PRN Reason: Hypoglycemia Protocol Stop: 03/11/23 21:12 Hyoscyamine (Hyoscyamine Sulfate 0.125 Mg Tab) 0.125 mg PO QPM JO Stop: 03/11/23 21:12 Last Admin: 02/12/23 21:07 Dose: 0.125 mg Cefepime HCl 2,000 mg/ Syringe 20 mls @ 5 mls/min IV Q8H JO; Protocol Stop: 02/16/23 21:59 Last Admin: 02/13/23 06:04 Dose: 5 mls/min Metronidazole (Flagyl) 500 mg in 100 mls @ 100 mls/hr IV Q8H JO; Protocol Stop: 02/16/23 21:59 Last Infusion: 02/13/23 07:07 Dose: Infused Daptomycin 625 mg/ Syringe 12.5 mls @ 6.25 mls/min IV Q24H JO; Protocol Stop: 02/17/23 11:59 Last Admin: 02/12/23 12:41 Dose: 6.25 mls/min Promethazine HCl 12.5 mg/ (Sodium Chloride) 50.5 mls @ 202 mls/hr IV Q6H PRN PRN Reason: Nausea And Vomiting Stop: 03/11/23 21:12 Insulin Aspart (Insulin Aspart Per Unit Charge) 0 units SC ACHS [facility]; Protocol Stop: 03/13/23 16:29 Last Admin: 02/12/23 21:57 Dose: 6 units Insulin Human NPH (Insulin Human Nph) 0 units SC BIDM [facility]; Protocol Stop: 03/14/23 16:59 Last Admin: 02/12/23 18:00 Dose: 16 units Levetiracetam (Levetiracetam 500 Mg Tab) 500 mg PO AMHS [facility] Stop: 03/11/23 21:12 Last Admin: 02/12/23 21:06 Dose: 500 mg Levothyroxine Sodium (Levothyroxine Sodium 25 Mcg Tablet) 25 mcg PO DAILYBB [facility] Stop: 03/12/23 06:29 Last Admin: 02/13/23 06:02 Dose: 25 mcg Magnesium Hydroxide (Magnesium Hydroxide Susp 30 Ml Udc) 30 ml PO Q12H PRN PRN Reason: Constipation Stop: 03/11/23 21:12 Magnesium Oxide (Magnesium Oxide 400 Mg Tab) 400 mg PO AMHS [facility] Stop: 03/11/23 21:12 Last Admin: 02/12/23 21:06 Dose: 400 mg Melatonin (Melatonin 3 Mg Tab) 3 mg PO HS PRN PRN Reason: Sleep Stop: 03/12/23 01:24 Last Admin: 02/10/23 01:44 Dose: 3 mg Methenamine Hippurate (Methenamine Hippurate 1 Gm Tab) 1 gm PO BID [facility] Stop: 03/11/23 21:12 Last Admin: 02/12/23 21:06 Dose: 1 gm Miscellaneous (Carbohydrates For Hypoglycemia ) 15 - 30 gm PO UD PRN PRN Reason: Hypoglycemia Protocol Stop: 03/11/23 21:12 Miscellaneous Information (Pharmacy Glycemic Mgmt Consult) 1 each N/A UD PRN PRN Reason: Consult Stop: 03/11/23 21:12 Multivitamins (Multivitamin Tab) 1 tab PO QAM [facility] Stop: 03/12/23 08:59 Last Admin: 02/12/23 08:43 Dose: 1 tab Pantoprazole Sodium (Pantoprazole 40 Mg Tab) 40 mg PO BID [facility] Stop: 03/11/23 21:12 Last Admin: 02/12/23 21:06 Dose: 40 mg Polyethylene Glycol (Polyethylene (Miralax) 17 Gm Pack) 17 gm PO DAILY PRN PRN Reason: Constipation Stop: 03/11/23 21:12 Potassium Chloride (Potassium Chloride 10 Meq Tabcr) 10 meq PO BIDM [facility] Stop: 03/12/23 07:59 Last Admin: 02/12/23 17:07 Dose: 10 meq Ropinirole HCl (Ropinirole Hcl 1 Mg Tablet) 1 mg PO QID [facility] Stop: 03/11/23 21:12 Last Admin: 02/12/23 21:06 Dose: 1 mg Saccharomyces Boulardii (Saccharomyces Boulardii 250 Mg Cap) 250 mg PO BID [facility] Stop: 03/11/23 21:29 Last Admin: 02/12/23 21:06 Dose: 250 mg Spironolactone (Spironolactone 25 Mg Tab) 25 mg PO QAM [facility] Stop: 03/12/23 08:59 Last Admin: 02/12/23 08:43 Dose: 25 mg Tizanidine HCl (Tizanidine Hcl 4 Mg Tablet) 4 mg PO BID@0000,1200 [facility] Stop: 03/12/23 00:00 Last Admin: 02/12/23 23:22 Dose: 4 mg Warfarin Sodium (Warfarin Sod 5 Mg Tab) 5 mg PO [id number] [facility] Stop: 03/12/23 15:59 Last Admin: 02/12/23 17:07 Dose: 5 mg (1) Sepsis Sepsis acute organ dysfunction status: without acute organ dysfunction Sepsis type: sepsis due to unspecified organism Qualified Code(s): A41.9 - Sepsis, unspecified organism (2) Sacral decubitus ulcer Pressure injury stage: unspecified pressure injury stage Qualified Code(s): L89.159 - Pressure ulcer of sacral region, unspecified stage
[2023-02-13 08:20] LABS: Hemoglobin 10.2 g/dl (14.0-18.0); Mean Corpuscular Hgb Conc 30.9 g/dL (32.0-36.0); Mean Corpuscular Volume 90.7 fL (80.0-100.0); Mean Platelet Volume 9.3 fL (9.4-12.4); Platelet Count 324 K/uL (130-400); RDW Standard Deviation 62.9 fL (36.4-46.3); Red Blood Count 3.64 M/uL (4.70-6.10); White Blood Count 13.63 K/ul (4.8-10.8)
[2023-02-13] MEDS: INSULIN ASPART PER UNIT CHARGE SC SCH ×4 (08:30→20:34)
[2023-02-13] MEDS: INSULIN HUMAN NPH SC SCH ×2 (08:31→17:22)
[2023-02-13] MEDS: POTASSIUM CHLORIDE 10 MEQ TABCR PO SCH ×2 (08:31→17:22)
[2023-02-13] MEDS: MULTIVITAMIN TAB PO SCH (08:32)
[2023-02-13] MEDS: allopurinoL 100 MG TAB PO SCH ×2 (08:32→20:47)
[2023-02-13] MEDS: rOPINIRole HCL 1 MG TABLET PO SCH ×4 (08:32→20:53)
[2023-02-13] MEDS: ESCITALOPRAM OXALATE 20 MG TAB PO SCH (08:32)
[2023-02-13] MEDS: METHENAMINE HIPPURATE 1 GM TAB PO SCH ×2 (08:32→20:53)
[2023-02-13] MEDS: DIVALPROEX DELAY RELEASE 500 MG TAB PO SCH ×2 (08:32→20:48)
[2023-02-13] MEDS: SACCHAROMYCES BOULARDII 250 MG CAP PO SCH ×2 (08:32→20:54)
[2023-02-13] MEDS: SPIRONOLACTONE 25 MG TAB PO SCH (08:32)
[2023-02-13] MEDS: PANTOprazole 40 MG TAB PO SCH ×2 (08:32→20:52)
[2023-02-13] MEDS: MAGNESIUM OXIDE 400 MG TAB PO SCH ×2 (08:32→20:51)
[2023-02-13] MEDS: GABAPENTIN 600 MG TAB PO SCH ×2 (08:32→20:49)
[2023-02-13] MEDS: DOCUSATE SODIUM 100 MG CAP PO SCH ×2 (08:32→20:48)
[2023-02-13] MEDS: levETIRAcetam 500 MG TAB PO SCH ×2 (08:32→20:50)
[2023-02-13] MEDS: FAMOTIDINE 20 MG TAB PO SCH ×2 (08:32→20:49)
[2023-02-13 08:35] LABS: BUN Creatinine Ratio 24.4 (10-20); Calcium 8.8 mg/dl (8.6-10.3); Creatinine Clr Calc Pharmacy 122.7 ml/min; Est GFR (Non-African American) 90.6 ml/min
[2023-02-13 08:41] LABS: INR 1.4 (0.9-1.1); Prothrombin Time 14.6 Seconds (9.0-12.0)
[2023-02-13] MEDS: DAPTOmycin 625 MG in SYRINGE 0 ML IV SCH (13:00)
[2023-02-13] MEDS: tiZANidine HCL 4 MG TABLET PO SCH ×2 (13:00→22:58)
[2023-02-13] MEDS: WARFARIN SOD 5 MG TAB PO SCH (17:22)
[2023-02-13] MEDS: HYOSCYAMINE SULFATE 0.125 MG TAB PO SCH (20:50)
[2023-02-13] MEDS: CYCLOBENZAPRINE HCL 5 MG TAB PO SCH (22:57)
[2023-02-14] MEDS: BACLOFEN 10 MG TAB PO SCH ×5 (04:13→18:17)
[2023-02-14] MEDS: ASCORBIC ACID 500 MG TAB PO SCH ×3 (04:14→18:17)
[2023-02-14] MEDS: LEVOTHYROXINE SODIUM 25 MCG TABLET PO SCH (04:15)
[2023-02-14] MEDS: metroNIDAZOLE 500 MG/100 ML BAG IV SCH ×3 (04:16→21:00)
[2023-02-14] MEDS: CEFEPIME 2,000 MG in SYRINGE 0 ML IV SCH ×3 (04:57→21:00)
[2023-02-14 06:37] LABS: Hematocrit (blood only) 31.6 % (42.0-52.0); Hemoglobin 9.9 g/dl (14.0-18.0); Mean Corpuscular Hemoglobin 28.3 pg (25.0-34.0); Mean Corpuscular Hgb Conc 31.3 g/dL (32.0-36.0); Mean Corpuscular Volume 90.3 fL (80.0-100.0); Mean Platelet Volume 9.3 fL (9.4-12.4); Platelet Count 321 K/uL (130-400); RDW Coefficient of Variation 19.2 % (11.5-14.5); RDW Standard Deviation 62.6 fL (36.4-46.3); White Blood Count 12.85 K/ul (4.8-10.8)
[2023-02-14 07:01] LABS: Calcium 8.4 mg/dl (8.6-10.3); Creatinine Clr Calc Pharmacy 110.4 ml/min; Est GFR (African American) 92.4 ml/min; Est GFR (Non-African American) 79.7 ml/min; Magnesium 2.1 mg/dl (1.7-2.4); Phosphorus 2.2 mg/dl (2.5-4.9); Potassium 4.4 mmol/L (3.5-5.1)
[2023-02-14 07:36] LABS: INR 1.5 (0.9-1.1); Prothrombin Time 16.3 Seconds (9.0-12.0)
--- NOTE | 2023-02-14 08:28 | Hospitalist Progress Note ---
Date of Service February 14, 2023 Assessment & Plan (1) Sepsis: (2) Sacral decubitus ulcer: (3) Left perineal ischial pressure ulcer: (4) Quadriplegia: (5) Neurogenic bladder: (6) Seizure: (7) DM type 2 (diabetes mellitus, type 2): Plan This is a 62-year-old male who has significant past medical history of quadriplegia secondary to traumatic accident years ago, neurogenic bladder with suprapubic catheter, chronic stage IV decubitus ulcer over the past 10 years follows [facility] wound clinic, insulin-dependent T2DM, CKD stage III in setting of diabetic nephropathy, morbid obesity, HTN, seizure disorder, iron deficiency anemia, MGUS followed with hematology, history of VRE, depression, coagulation disorder on chronic Coumadin therapy who presents to ED secondary to referral by [facility] wound clinic due to worsening sacral wound. Patient meets criteria for sepsis in setting of leukocytosis and tachycardia. Source of infection likely in setting of wound. Wound culture was obtained by ED physician. Blood culture sent. Patient with lactic acidosis of 2.8. Sepsis Stage IV decubitus ulcer Left ischial wound Admitted to PCU Broad-spectrum antibiotics with IV daptomycin, cefepime and Flagyl based on pre vious cultures as discussed with ED physician and pharmacist CK 39, hold statin in setting of Dapto use Infectious disease consulted - reached out to Dr. Boyd on (02/12/23) - awaiting response Wound care nurse already saw and evaluated patient, wound image evaluated General surgery consult placed - pt previously debridement with Dr. Chaudhry, now seen by Dr. Srivastava - pt is now s/p debridement on (02/11/23), cultx from OR obtained Pt received IVF on admission lactate normalized Hold Lasix for now, consider resuming in a.m. or when appropriate UTI - catheter associated Ucultx - positive for Pseudomonas (resistant for Cipro) Sacrum cultx (02/09/23)- positive for Pseudomonas (sens. to Cipro) Decubitus/ sacrum OR cultx - positive for Pseudomonas (sens. to cipro) Seizure d/o pt on keppra pt reports seizure like activity on Wednesday, no missed medications another episode today (02/10/23) - discussed with neurology, patient started on Depakote, MRI brain also ordered. Continue Keppra for now, plan to decrease dose next week. Brain MRI - IMPRESSION: 1. Motion degraded exam without acute intracranial abnormality identified. 2. Involutional changes with chronic microvascular ischemic disease. 3. No abnormal enhancement. Per neurology 02/12/23 1. Continue Depakote 500 milligrams p.o. twice a day. 2. Check a trough level after he has been on the medicine for 1-2 weeks. 3. Keep levetiracetam the same for now, but after he has been on Depakote for 2 weeks and the level is adequate, then we will taper off levetiracetam ( 500 mg once daily for 2 weeks, then discontinue ). 4. Keep other medications the same for now Insulin-dependent T2DM NPH and NovoLog per protocol Consult assuming pharmacist for assistance in setting of sepsis a1c 6.6 on 01/20/23 Neurogenic bladder Suprapubic catheter in place History of recurrent UTIs Continue methenamine hippurate Colostomy status Patient with colostomy in place to prevent wound soiling Continue routine ostomy care Chronic anticoagulation 2/2 coagulation disorder Supratherapeutic INR warfarin on hold vit K given prior to OR Monitor INR - plan to hold warfarin for 2-3 days post-op per surgery Chronic Quadraplegia 2/2 traumatic accident DVT ppx: warfarin on hold, SCDs Dispo: PCU FULL CODE PCP: Dr. Stanford Admission and Anticipated Discharge Date Admission Date: February 09, 2023 Subjective Pt seen in follow up of sacral wound infection, UTI, seizure Currently laying in bed, in no acute distress Denies fevers chills chest pain, shortness of breath. Denies abd. pain Seen by surgery and neuro. S/p surg. debridement Pt's unhappy w/ wound care center they go to now in [facility]. CM made aware. Review of Systems Review of Systems: All systems reviewed & are unremarkable except as noted in Subjective Physical Exam Physical Exam: Constitutional: WD/WN, morbidly ob fany, M in NAD Head : Normocephalic, A traumatic Eyes: P ERRL, conjunctivae normal, anicteric sclerae ENMT: ex ternal ear and nos e normal, orophary nx normal Neck: t hick neck Respirat ory: normal respi ratory effort, [place] gs clear to auscul tation, no wheeze, rales, rhonchi. Normal insp/exp ef fort, no accessory muscle use Cardio vascular: RRR, no murmur, no edema Vessels: no JVD o r carotid bruit Ch est: normal inspec tion of chest Abdo men: obese abd, +L midline colostomy with brown stool output, normal bow el sounds, soft, n ontender Musculosk eletal:+quad with limited movement to upper ext Skin: no rashes, warm and dry normal tu rgor Neurologic: PERRL, no face pal sy, no dysarthria Psychiatric: A+Ox 3, euthymic affect : +suprapubic c ath no surrounding erythema or drain age, urbina bag wit h clear urine Results & Data Results & Data Vital Signs (Past 12 Hours) Vital Signs Temp Pulse Pulse Resp BP Pulse Ox O2 Del Method 02/14/23 08:02 36.7 C 94 H 21 119/64 93 Room Air 02/14/23 03:47 36.6 C 96 H 18 104/62 94 Room Air 02/13/23 23:52 119 H 02/13/23 22:43 Room Air 02/13/23 21:00 O2 Del Method 02/14/23 08:02 02/14/23 03:47 02/13/23 23:52 02/13/23 22:43 02/13/23 21:00 Room Air Laboratory Results 02/14/23 02/14/23 02/14/23 Range/Units 07:31 05:42 05:42 WBC (4.8-10.8) K/ul RBC (4.70-6.10) M/uL Hgb (14.0-18.0) g/dl Hct (42.0-52.0) % MCV (80.0-100.0) fL MCH (25.0-34.0) pg MCHC (32.0-36.0) g/dL RDW Std Deviation (36.4-46.3) fL RDW Coeff of Yoseph (11.5-14.5) % Plt Count (130-400) K/uL MPV (9.4-12.4) fL PT 16.3 H (9.0-12.0) Seconds INR 1.5 H (0.9-1.1) Sodium 136 (136-145) mmol/L Potassium 4.4 (3.5-5.1) mmol/L Chloride 103 (98-107) mmol/L Carbon Dioxide 27 (21-32) mmol/L Anion Gap 6 (3-11) BUN 25 H (6-23) mg/dl Creatinine 1.00 (0.6-1.4) mg/dl Est Cr Clr Drug Dosing 110.4 ml/min Est GFR ( Amer) 92.4 ml/min Est GFR (Non-Af Amer) 79.7 ml/min BUN/Creatinine Ratio 25.0 H (10-20) Glucose 138 H (70-99(Fasting)) mg/dl POC Glucose 150 H (70-99) mg/dl Calcium 8.4 L (8.6-10.3) mg/dl Phosphorus 2.2 L D (2.5-4.9) mg/dl Magnesium 2.1 (1.7-2.4) mg/dl Levetiracetam (6.0-46.0) mcg/mL 02/14/23 02/13/23 02/13/23 Range/Units 05:42 20:26 16:00 WBC 12.85 H (4.8-10.8) K/ul RBC 3.50 L (4.70-6.10) M/uL Hgb 9.9 L (14.0-18.0) g/dl Hct 31.6 L (42.0-52.0) % MCV 90.3 (80.0-100.0) fL MCH 28.3 (25.0-34.0) pg MCHC 31.3 L (32.0-36.0) g/dL RDW Std Deviation 62.6 H (36.4-46.3) fL RDW Coeff of Yoseph 19.2 H (11.5-14.5) % Plt Count 321 (130-400) K/uL MPV 9.3 L (9.4-12.4) fL PT (9.0-12.0) Seconds INR (0.9-1.1) Sodium (136-145) mmol/L Potassium (3.5-5.1) mmol/L Chloride (98-107) mmol/L Carbon Dioxide (21-32) mmol/L Anion Gap (3-11) BUN (6-23) mg/dl Creatinine (0.6-1.4) mg/dl Est Cr Clr Drug Dosing ml/min Est GFR ( Amer) ml/min Est GFR (Non-Af Amer) ml/min BUN/Creatinine Ratio (10-20) Glucose (70-99(Fasting)) mg/dl POC Glucose 198 H 135 H (70-99) mg/dl Calcium (8.6-10.3) mg/dl Phosphorus (2.5-4.9) mg/dl Magnesium (1.7-2.4) mg/dl Levetiracetam (6.0-46.0) mcg/mL 02/13/23 02/13/23 02/13/23 Range/Units 11:04 06:57 06:57 WBC (4.8-10.8) K/ul RBC (4.70-6.10) M/uL Hgb (14.0-18.0) g/dl Hct (42.0-52.0) % MCV (80.0-100.0) fL MCH (25.0-34.0) pg MCHC (32.0-36.0) g/dL RDW Std Deviation (36.4-46.3) fL RDW Coeff of Yoseph (11.5-14.5) % Plt Count (130-400) K/uL MPV (9.4-12.4) fL PT 14.6 H (9.0-12.0) Seconds INR 1.4 H (0.9-1.1) Sodium 137 (136-145) mmol/L Potassium 4.0 (3.5-5.1) mmol/L Chloride 101 (98-107) mmol/L Carbon Dioxide 31 (21-32) mmol/L Anion Gap 5 (3-11) BUN 22 (6-23) mg/dl Creatinine 0.90 (0.6-1.4) mg/dl Est Cr Clr Drug Dosing 122.7 ml/min Est GFR ( Amer) 105.0 ml/min Est GFR (Non-Af Amer) 90.6 ml/min BUN/Creatinine Ratio 24.4 H (10-20) Glucose 103 H (70-99(Fasting)) mg/dl POC Glucose 201 H (70-99) mg/dl Calcium 8.8 (8.6-10.3) mg/dl Phosphorus (2.5-4.9) mg/dl Magnesium (1.7-2.4) mg/dl Levetiracetam (6.0-46.0) mcg/mL 02/09/23 Range/Units 18:16 WBC (4.8-10.8) K/ul RBC (4.70-6.10) M/uL Hgb (14.0-18.0) g/dl Hct (42.0-52.0) % MCV (80.0-100.0) fL MCH (25.0-34.0) pg MCHC (32.0-36.0) g/dL RDW Std Deviation (36.4-46.3) fL RDW Coeff of Yoseph (11.5-14.5) % Plt Count (130-400) K/uL MPV (9.4-12.4) fL PT (9.0-12.0) Seconds INR (0.9-1.1) Sodium (136-145) mmol/L Potassium (3.5-5.1) mmol/L Chloride (98-107) mmol/L Carbon Dioxide (21-32) mmol/L Anion Gap (3-11) BUN (6-23) mg/dl Creatinine (0.6-1.4) mg/dl Est Cr Clr Drug Dosing ml/min Est GFR ( Amer) ml/min Est GFR (Non-Af Amer) ml/min BUN/Creatinine Ratio (10-20) Glucose (70-99(Fasting)) mg/dl POC Glucose (70-99) mg/dl Calcium (8.6-10.3) mg/dl Phosphorus (2.5-4.9) mg/dl Magnesium (1.7-2.4) mg/dl Levetiracetam 18.0 (6.0-46.0) mcg/mL Medications Administered Current Inpatient Medications Acetaminophen (Acetaminophen 325 Mg Tab) 650 mg PO Q4H PRN PRN Reason: Pain or Fever Stop: 03/11/23 21:12 Last Admin: 02/11/23 13:41 Dose: 650 mg Al Hydrox/Mg Hydrox/Simethicone (Aluminum/Magnesium Susp 30 Ml Udc) 15 ml PO Q4H PRN PRN Reason: Dyspepsia Stop: 03/11/23 21:12 Allopurinol (Allopurinol 100 Mg Tab) 100 mg PO BID [facility] Stop: 03/11/23 21:12 Last Admin: 02/13/23 20:47 Dose: 100 mg Ascorbic Acid (Ascorbic Acid 500 Mg Tab) 250 mg PO TID@0600,1200,1800 [facility] Stop: 03/11/23 21:12 Last Admin: 02/14/23 04:14 Dose: 250 mg Baclofen (Baclofen 10 Mg Tab) 10 mg PO DAILY@0000 [facility] Stop: 03/12/23 00:00 Last Admin: 02/14/23 04:57 Dose: 10 mg Baclofen (Baclofen 10 Mg Tab) 5 mg PO TID@0600,1200,1800 [facility] Stop: 03/12/23 05:59 Last Admin: 02/14/23 04:13 Dose: 5 mg Cyclobenzaprine HCl (Cyclobenzaprine Hcl 5 Mg Tab) 15 mg PO DAILY@0000 [facility] Stop: 03/12/23 00:00 Last Admin: 02/13/23 22:57 Dose: 15 mg Dextrose (Dextrose 50% 50 Ml Syringe) 25 - 50 ml IV UD PRN; Protocol PRN Reason: Hypoglycemia Protocol Stop: 03/11/23 21:12 Divalproex Sodium (Divalproex Delay Release 500 Mg Tab) 500 mg PO BID [facility] Stop: 03/12/23 10:59 Last Admin: 02/13/23 20:48 Dose: 500 mg Docusate Sodium (Docusate Sodium 100 Mg Cap) 100 mg PO AMHS [facility] Stop: 03/11/23 21:12 Last Admin: 02/13/23 20:48 Dose: 100 mg Escitalopram Oxalate (Escitalopram Oxalate 20 Mg Tab) 20 mg PO QAM [facility] Stop: 03/12/23 08:59 Last Admin: 02/13/23 08:32 Dose: 20 mg Famotidine (Famotidine 20 Mg Tab) 20 mg PO BID [facility] Stop: 03/11/23 21:12 Last Admin: 02/13/23 20:49 Dose: 20 mg Gabapentin (Gabapentin 600 Mg Tab) 600 mg PO BID [facility] Stop: 03/11/23 21:12 Last Admin: 02/13/23 20:49 Dose: 600 mg Glucagon (Glucagon For Inj 1 Mg Vial) 1 mg SQ UD PRN; Protocol PRN Reason: Hypoglycemia Protocol Stop: 03/11/23 21:12 Glucose (Glucose 10 Tab/Tube) 4 - 8 tab PO UD PRN; Protocol PRN Reason: Hypoglycemia Treatment Stop: 03/11/23 21:12 Glucose (Glucose 40% Gel 15 Gm Tube) 15 - 30 gm PO UD PRN; Protocol PRN Reason: Hypoglycemia Protocol Stop: 03/11/23 21:12 Hyoscyamine (Hyoscyamine Sulfate 0.125 Mg Tab) 0.125 mg PO QPM [facility] Stop: 03/11/23 21:12 Last Admin: 02/13/23 20:50 Dose: 0.125 mg Cefepime HCl 2,000 mg/ Syringe 20 mls @ 5 mls/min IV Q8H JO; Protocol Stop: 02/16/23 21:59 Last Admin: 02/14/23 04:57 Dose: 5 mls/min Metronidazole (Flagyl) 500 mg in 100 mls @ 100 mls/hr IV Q8H JO; Protocol Stop: 02/16/23 21:59 Last Infusion: 02/14/23 07:30 Dose: Infused Daptomycin 625 mg/ Syringe 12.5 mls @ 6.25 mls/min IV Q24H JO; Protocol Stop: 02/17/23 11:59 Last Admin: 02/13/23 13:00 Dose: 6.25 mls/min Promethazine HCl 12.5 mg/ (Sodium Chloride) 50.5 mls @ 202 mls/hr IV Q6H PRN PRN Reason: Nausea And Vomiting Stop: 03/11/23 21:12 Insulin Aspart (Insulin Aspart Per Unit Charge) 0 units SC ACHS [facility]; Protocol Stop: 03/13/23 16:29 Last Admin: 02/13/23 20:34 Dose: 4 units Insulin Human NPH (Insulin Human Nph) 0 units SC BIDM [facility]; Protocol Stop: 03/14/23 16:59 Last Admin: 02/13/23 17:22 Dose: 40 units Levetiracetam (Levetiracetam 500 Mg Tab) 500 mg PO AMHS [facility] Stop: 03/11/23 21:12 Last Admin: 02/13/23 20:50 Dose: 500 mg Levothyroxine Sodium (Levothyroxine Sodium 25 Mcg Tablet) [facility]: 03/12/23 06:29 Last Admin: 02/14/23 04:15 Dose: 25 mcg Magnesium Hydroxide (Magnesium Hydroxide Susp 30 Ml Udc) 30 ml PO Q12H PRN PRN Reason: Constipation Stop: 03/11/23 21:12 Magnesium Oxide (Magnesium Oxide 400 Mg Tab) 400 mg PO AMHS [facility] Stop: 03/11/23 21:12 Last Admin: 02/13/23 20:51 Dose: 400 mg Melatonin (Melatonin 3 Mg Tab) 3 mg PO HS PRN PRN Reason: Sleep Stop: 03/12/23 01:24 Last Admin: 02/10/23 01:44 Dose: 3 mg Methenamine Hippurate (Methenamine Hippurate 1 Gm Tab) 1 gm PO BID [facility] Stop: 03/11/23 21:12 Last Admin: 02/13/23 20:53 Dose: 1 gm Miscellaneous (Carbohydrates For Hypoglycemia ) 15 - 30 gm PO UD PRN PRN Reason: Hypoglycemia Protocol Stop: 03/11/23 21:12 Miscellaneous Information (Pharmacy Glycemic Mgmt Consult) 1 each N/A UD PRN PRN Reason: Consult Stop: 03/11/23 21:12 Multivitamins (Multivitamin Tab) 1 tab PO QAM [facility] Stop: 03/12/23 08:59 Last Admin: 02/13/23 08:32 Dose: 1 tab Pantoprazole Sodium (Pantoprazole 40 Mg Tab) 40 mg PO BID [facility] Stop: 03/11/23 21:12 Last Admin: 02/13/23 20:52 Dose: 40 mg Polyethylene Glycol (Polyethylene (Miralax) 17 Gm Pack) 17 gm PO DAILY PRN PRN Reason: Constipation Stop: 03/11/23 21:12 Potassium Chloride (Potassium Chloride 10 Meq Tabcr) 10 meq PO BIDM [facility] Stop: 03/12/23 07:59 Last Admin: 02/13/23 17:22 Dose: 10 meq Ropinirole HCl (Ropinirole Hcl 1 Mg Tablet) 1 mg PO QID [facility] Stop: 03/11/23 21:12 Last Admin: 02/13/23 20:53 Dose: 1 mg Saccharomyces Boulardii (Saccharomyces Boulardii 250 Mg Cap) 250 mg PO BID [facility] Stop: 03/11/23 21:29 Last Admin: 02/13/23 20:54 Dose: 250 mg Spironolactone (Spironolactone 25 Mg Tab) 25 mg PO QAM [facility] Stop: 03/12/23 08:59 Last Admin: 02/13/23 08:32 Dose: 25 mg Tizanidine HCl (Tizanidine Hcl 4 Mg Tablet) 4 mg PO BID@0000,1200 [facility] Stop: 03/12/23 00:00 Last Admin: 02/13/23 22:58 Dose: 4 mg Warfarin Sodium (Warfarin Sod 5 Mg Tab) 5 mg PO [id number] [facility] Stop: 03/12/23 15:59 Last Admin: 02/13/23 17:22 Dose: 5 mg (1) Sepsis Sepsis acute organ dysfunction status: without acute organ dysfunction Sepsis type: sepsis due to unspecified organism Qualified Code(s): A41.9 - Sepsis, unspecified organism (2) Sacral decubitus ulcer Pressure injury stage: unspecified pressure injury stage Qualified Code(s): L89.159 - Pressure ulcer of sacral region, unspecified stage
[2023-02-14] MEDS: INSULIN HUMAN NPH SC SCH ×2 (08:37→18:16)
[2023-02-14] MEDS: INSULIN ASPART PER UNIT CHARGE SC SCH ×4 (08:37→21:00)
[2023-02-14] MEDS: FAMOTIDINE 20 MG TAB PO SCH ×2 (08:38→20:59)
[2023-02-14] MEDS: GABAPENTIN 600 MG TAB PO SCH ×2 (08:38→20:59)
[2023-02-14] MEDS: MAGNESIUM OXIDE 400 MG TAB PO SCH ×2 (08:38→20:59)
[2023-02-14] MEDS: rOPINIRole HCL 1 MG TABLET PO SCH ×4 (08:38→21:25)
[2023-02-14] MEDS: SPIRONOLACTONE 25 MG TAB PO SCH (08:38)
[2023-02-14] MEDS: SACCHAROMYCES BOULARDII 250 MG CAP PO SCH ×2 (08:38→20:59)
[2023-02-14] MEDS: DOCUSATE SODIUM 100 MG CAP PO SCH ×2 (08:38→20:59)
[2023-02-14] MEDS: POTASSIUM CHLORIDE 10 MEQ TABCR PO SCH ×2 (08:38→18:17)
[2023-02-14] MEDS: levETIRAcetam 500 MG TAB PO SCH ×2 (08:38→21:00)
[2023-02-14] MEDS: MULTIVITAMIN TAB PO SCH (08:38)
[2023-02-14] MEDS: PANTOprazole 40 MG TAB PO SCH ×2 (08:38→20:59)
[2023-02-14] MEDS: METHENAMINE HIPPURATE 1 GM TAB PO SCH ×2 (08:38→21:00)
[2023-02-14] MEDS: allopurinoL 100 MG TAB PO SCH ×2 (08:38→20:59)
[2023-02-14] MEDS: DIVALPROEX DELAY RELEASE 500 MG TAB PO SCH ×2 (08:38→20:59)
[2023-02-14] MEDS: ESCITALOPRAM OXALATE 20 MG TAB PO SCH (08:38)
[2023-02-14] MEDS: tiZANidine HCL 4 MG TABLET PO SCH ×2 (12:28→23:55)
[2023-02-14] MEDS: DAPTOmycin 625 MG in SYRINGE 0 ML IV SCH (12:28)
[2023-02-14] MEDS: HYOSCYAMINE SULFATE 0.125 MG TAB PO SCH (20:59)
[2023-02-14] MEDS: CYCLOBENZAPRINE HCL 5 MG TAB PO SCH (23:55)
[2023-02-15] MEDS: CEFEPIME 2,000 MG in SYRINGE 0 ML IV SCH ×3 (05:39→21:47)
[2023-02-15] MEDS: metroNIDAZOLE 500 MG/100 ML BAG IV SCH ×3 (05:39→21:48)
[2023-02-15] MEDS: ASCORBIC ACID 500 MG TAB PO SCH ×3 (05:40→16:53)
[2023-02-15] MEDS: LEVOTHYROXINE SODIUM 25 MCG TABLET PO SCH (05:40)
[2023-02-15] MEDS: BACLOFEN 10 MG TAB PO SCH ×4 (05:40→23:56)
[2023-02-15 06:24] LABS: Hematocrit (blood only) 32.2 % (42.0-52.0); Hemoglobin 10.2 g/dl (14.0-18.0); Mean Corpuscular Hemoglobin 28.5 pg (25.0-34.0); Mean Corpuscular Hgb Conc 31.7 g/dL (32.0-36.0); Mean Corpuscular Volume 89.9 fL (80.0-100.0); Mean Platelet Volume 9.4 fL (9.4-12.4); Platelet Count 331 K/uL (130-400); RDW Coefficient of Variation 19.4 % (11.5-14.5); RDW Standard Deviation 64.1 fL (36.4-46.3); Red Blood Count 3.58 M/uL (4.70-6.10)
[2023-02-15 06:40] LABS: BUN Creatinine Ratio 21.9 (10-20); Calcium 8.5 mg/dl (8.6-10.3); Est GFR (African American) 97.1 ml/min; Est GFR (Non-African American) 83.8 ml/min; Magnesium 2.1 mg/dl (1.7-2.4); Phosphorus 2.1 mg/dl (2.5-4.9); Potassium 4.2 mmol/L (3.5-5.1)
[2023-02-15] MEDS ORDERED: INSULIN HUMAN NPH SC SCH (08:00)
[2023-02-15] MEDS: INSULIN ASPART PER UNIT CHARGE SC SCH ×4 (09:03→21:52)
[2023-02-15] MEDS: levETIRAcetam 500 MG TAB PO SCH ×2 (09:10→21:53)
[2023-02-15] MEDS: ESCITALOPRAM OXALATE 20 MG TAB PO SCH (09:10)
[2023-02-15] MEDS: DIVALPROEX DELAY RELEASE 500 MG TAB PO SCH ×2 (09:10→21:52)
[2023-02-15] MEDS: POTASSIUM CHLORIDE 10 MEQ TABCR PO SCH ×2 (09:10→17:02)
[2023-02-15] MEDS: SPIRONOLACTONE 25 MG TAB PO SCH (09:11)
[2023-02-15] MEDS: MULTIVITAMIN TAB PO SCH (09:11)
[2023-02-15] MEDS: FAMOTIDINE 20 MG TAB PO SCH ×2 (09:11→21:52)
[2023-02-15] MEDS: METHENAMINE HIPPURATE 1 GM TAB PO SCH ×2 (09:12→21:50)
[2023-02-15] MEDS: rOPINIRole HCL 1 MG TABLET PO SCH ×4 (09:12→21:49)
[2023-02-15] MEDS: allopurinoL 100 MG TAB PO SCH ×2 (09:12→21:51)
[2023-02-15] MEDS: PANTOprazole 40 MG TAB PO SCH ×2 (09:12→21:53)
[2023-02-15] MEDS: DOCUSATE SODIUM 100 MG CAP PO SCH ×2 (09:12→21:59)
[2023-02-15] MEDS: SACCHAROMYCES BOULARDII 250 MG CAP PO SCH ×2 (09:13→21:49)
[2023-02-15] MEDS: MAGNESIUM OXIDE 400 MG TAB PO SCH ×2 (09:13→21:59)
[2023-02-15] MEDS: GABAPENTIN 600 MG TAB PO SCH ×2 (09:13→21:51)
--- NOTE | 2023-02-15 11:02 | Hospitalist Progress Note ---
Date of Service February 15, 2023 Assessment & Plan (1) Sepsis: (2) Sacral decubitus ulcer: (3) Left perineal ischial pressure ulcer: (4) Quadriplegia: (5) Neurogenic bladder: (6) Seizure: (7) DM type 2 (diabetes mellitus, type 2): Plan This is a 62-year-old male who has significant past medical history of quadriplegia secondary to traumatic accident years ago, neurogenic bladder with suprapubic catheter, chronic stage IV decubitus ulcer over the past 10 years follows [facility] wound clinic, insulin-dependent T2DM, CKD stage III in setting of diabetic nephropathy, morbid obesity, HTN, seizure disorder, iron deficiency anemia, MGUS followed with hematology, history of VRE, depression, coagulation disorder on chronic Coumadin therapy who presents to ED secondary to referral by [facility] wound clinic due to worsening sacral wound. Patient meets criteria for sepsis in setting of leukocytosis and tachycardia. Source of infection likely in setting of wound. Wound culture was obtained by ED physician. Blood culture sent. Patient with lactic acidosis of 2.8. Sepsis Stage IV decubitus ulcer Left ischial wound Admitted to PCU Broad-spectrum antibiotics with IV daptomycin, cefepime and Flagyl based on pre vious cultures as discussed with ED physician and pharmacist CK 39, hold statin in setting of Dapto use Infectious disease consulted - reached out to Dr. Boyd on (02/12/23 and 02/15/23) - awaiting response Wound care nurse already saw and evaluated patient, wound image evaluated General surgery consult placed - pt previously debridement with Dr. Chaudhry, now seen by Dr. Srivastava - pt is now s/p debridement on (02/11/23), cultx from OR obtained Pt received IVF on admission lactate normalized Hold Lasix for now, consider resuming in a.m. or when appropriate UTI - catheter associated Ucultx - positive for Pseudomonas (resistant for Cipro) Sacrum cultx (02/09/23)- positive for Pseudomonas (sens. to Cipro) Decubitus/ sacrum OR cultx - positive for Pseudomonas (sens. to cipro) Seizure d/o pt on keppra pt reports seizure like activity on Wednesday, no missed medications another episode today (02/10/23) - discussed with neurology, patient started on Depakote, MRI brain also ordered. Continue Keppra for now, plan to decrease dose next week. Brain MRI - IMPRESSION: 1. Motion degraded exam without acute intracranial abnormality identified. 2. Involutional changes with chronic microvascular ischemic disease. 3. No abnormal enhancement. Per neurology 02/12/23 1. Continue Depakote 500 milligrams p.o. twice a day. 2. Check a trough level after he has been on the medicine for 1-2 weeks. 3. Keep levetiracetam the same for now, but after he has been on Depakote for 2 weeks and the level is adequate, then we will taper off levetiracetam ( 500 mg once daily for 2 weeks, then discontinue ). 4. Keep other medications the same for now Insulin-dependent T2DM NPH and NovoLog per protocol Consult assuming pharmacist for assistance in setting of sepsis a1c 6.6 on 01/20/23 Neurogenic bladder Suprapubic catheter in place History of recurrent UTIs Continue methenamine hippurate Colostomy status Patient with colostomy in place to prevent wound soiling Continue routine ostomy care Chronic anticoagulation 2/2 coagulation disorder Supratherapeutic INR warfarin on hold vit K given prior to OR Monitor INR - plan to hold warfarin for 2-3 days post-op per surgery Chronic Quadraplegia 2/2 traumatic accident DVT ppx: warfarin on hold, SCDs Dispo: PCU FULL CODE PCP: Dr. Stanford Admission and Anticipated Discharge Date Admission Date: February 09, 2023 Subjective Pt seen in follow up of sacral wound infection, UTI, seizure Currently laying in bed, in no acute distress Denies fevers chills chest pain, shortness of breath. Denies abd. pain Seen by surgery and neuro. S/p surg. debridement Pt's unhappy w/ wound care center they go to now in [facility]. CM made aware. No new symptoms today - ID contacted -recs pending Review of Systems Review of Systems: All systems reviewed & are unremarkable except as noted in Subjective Physical Exam Physical Exam: Constitutional: WD/WN, morbidly ob fany, M in NAD Head : Normocephalic, A traumatic Eyes: P ERRL, conjunctivae normal, anicteric sclerae ENMT: ex ternal ear and nos e normal, orophary nx normal Neck: t hick neck Respirat ory: normal respi ratory effort, [place] gs clear to auscul tation, no wheeze, rales, rhonchi. Normal insp/exp ef fort, no accessory muscle use Cardio vascular: RRR, no murmur, no edema Vessels: no JVD o r carotid bruit Ch est: normal inspec tion of chest Abdo men: obese abd, +L midline colostomy with brown stool output, normal bow el sounds, soft, n ontender Musculosk eletal:+quad with limited movement to upper ext Skin: no rashes, warm and dry normal tu rgor Neurologic: PERRL, no face pal sy, no dysarthria Psychiatric: A+Ox 3, euthymic affect : +suprapubic c ath no surrounding erythema or drain age, urbina bag wit h clear urine Results & Data Results & Data Vital Signs (Past 12 Hours) Vital Signs Temp Pulse Resp BP Pulse Ox O2 Del Method 02/15/23 07:55 36.6 C 91 H 20 113/67 91 Room Air 02/15/23 03:31 36.8 C 82 18 118/75 90 Room Air 02/15/23 00:06 36.8 C 110 H 20 166/93 H 97 Room Air Laboratory Results 02/15/23 02/15/23 02/15/23 Range/Units 07:11 05:57 05:57 WBC 12.50 H (4.8-10.8) K/ul RBC 3.58 L (4.70-6.10) M/uL Hgb 10.2 L (14.0-18.0) g/dl Hct 32.2 L (42.0-52.0) % MCV 89.9 (80.0-100.0) fL MCH 28.5 (25.0-34.0) pg MCHC 31.7 L (32.0-36.0) g/dL RDW Std Deviation 64.1 H (36.4-46.3) fL RDW Coeff of Yoseph 19.4 H (11.5-14.5) % Plt Count 331 (130-400) K/uL MPV 9.4 (9.4-12.4) fL Sodium 136 (136-145) mmol/L Potassium 4.2 (3.5-5.1) mmol/L Chloride 103 (98-107) mmol/L Carbon Dioxide 29 (21-32) mmol/L Anion Gap 4 (3-11) BUN 21 (6-23) mg/dl Creatinine 0.96 (0.6-1.4) mg/dl Est Cr Clr Drug Dosing 115.0 ml/min Est GFR ( Amer) 97.1 ml/min Est GFR (Non-Af Amer) 83.8 ml/min BUN/Creatinine Ratio 21.9 H (10-20) Glucose 104 H (70-99(Fasting)) mg/dl POC Glucose 105 H (70-99) mg/dl Calcium 8.5 L (8.6-10.3) mg/dl Phosphorus 2.1 L (2.5-4.9) mg/dl Magnesium 2.1 (1.7-2.4) mg/dl 02/14/23 02/14/23 02/14/23 Range/Units 20:45 16:20 11:05 WBC (4.8-10.8) K/ul RBC (4.70-6.10) M/uL Hgb (14.0-18.0) g/dl Hct (42.0-52.0) % MCV (80.0-100.0) fL MCH (25.0-34.0) pg MCHC (32.0-36.0) g/dL RDW Std Deviation (36.4-46.3) fL RDW Coeff of Yoseph (11.5-14.5) % Plt Count (130-400) K/uL MPV (9.4-12.4) fL Sodium (136-145) mmol/L Potassium (3.5-5.1) mmol/L Chloride (98-107) mmol/L Carbon Dioxide (21-32) mmol/L Anion Gap (3-11) BUN (6-23) mg/dl Creatinine (0.6-1.4) mg/dl Est Cr Clr Drug Dosing ml/min Est GFR ( Amer) ml/min Est GFR (Non-Af Amer) ml/min BUN/Creatinine Ratio (10-20) Glucose (70-99(Fasting)) mg/dl POC Glucose 271 H 246 H 176 H (70-99) mg/dl Calcium (8.6-10.3) mg/dl Phosphorus (2.5-4.9) mg/dl Magnesium (1.7-2.4) mg/dl Medications Administered Current Inpatient Medications Acetaminophen (Acetaminophen 325 Mg Tab) 650 mg PO Q4H PRN PRN Reason: Pain or Fever Stop: 03/11/23 21:12 Last Admin: 02/11/23 13:41 Dose: 650 mg Al Hydrox/Mg Hydrox/Simethicone (Aluminum/Magnesium Susp 30 Ml Udc) 15 ml PO Q4H PRN PRN Reason: Dyspepsia Stop: 03/11/23 21:12 Allopurinol (Allopurinol 100 Mg Tab) 100 mg PO BID [facility] Stop: 03/11/23 21:12 Last Admin: 02/15/23 09:12 Dose: 100 mg Ascorbic Acid (Ascorbic Acid 500 Mg Tab) 250 mg PO TID@0600,1200,1800 [facility] Stop: 03/11/23 21:12 Last Admin: 02/15/23 05:40 Dose: 250 mg Baclofen (Baclofen 10 Mg Tab) 10 mg PO DAILY@0000 [facility] Stop: 03/12/23 00:00 Last Admin: 02/14/23 04:57 Dose: 10 mg Baclofen (Baclofen 10 Mg Tab) 5 mg PO TID@0600,1200,1800 [facility] Stop: 03/12/23 05:59 Last Admin: 02/15/23 05:40 Dose: 5 mg Cyclobenzaprine HCl (Cyclobenzaprine Hcl 5 Mg Tab) 15 mg PO DAILY@0000 [facility] Stop: 03/12/23 00:00 Last Admin: 02/14/23 23:55 Dose: 15 mg Dextrose (Dextrose 50% 50 Ml Syringe) 25 - 50 ml IV UD PRN; Protocol PRN Reason: Hypoglycemia Protocol Stop: 03/11/23 21:12 Divalproex Sodium (Divalproex Delay Release 500 Mg Tab) 500 mg PO BID [facility] Stop: 03/12/23 10:59 Last Admin: 02/15/23 09:10 Dose: 500 mg Docusate Sodium (Docusate Sodium 100 Mg Cap) 100 mg PO AMHS [facility] Stop: 03/11/23 21:12 Last Admin: 02/15/23 09:12 Dose: 100 mg Escitalopram Oxalate (Escitalopram Oxalate 20 Mg Tab) 20 mg PO QAM [facility] Stop: 03/12/23 08:59 Last Admin: 02/15/23 09:10 Dose: 20 mg Famotidine (Famotidine 20 Mg Tab) 20 mg PO BID [facility] Stop: 03/11/23 21:12 Last Admin: 02/15/23 09:11 Dose: 20 mg Gabapentin (Gabapentin 600 Mg Tab) 600 mg PO BID [facility] Stop: 03/11/23 21:12 Last Admin: 02/15/23 09:13 Dose: 600 mg Glucagon (Glucagon For Inj 1 Mg Vial) 1 mg SQ UD PRN; Protocol PRN Reason: Hypoglycemia Protocol Stop: 03/11/23 21:12 Glucose (Glucose 10 Tab/Tube) 4 - 8 tab PO UD PRN; Protocol PRN Reason: Hypoglycemia Treatment Stop: 03/11/23 21:12 Glucose (Glucose 40% Gel 15 Gm Tube) 15 - 30 gm PO UD PRN; Protocol PRN Reason: Hypoglycemia Protocol Stop: 03/11/23 21:12 Hyoscyamine (Hyoscyamine Sulfate 0.125 Mg Tab) 0.125 mg PO QPM JO Stop: 03/11/23 21:12 Last Admin: 02/14/23 20:59 Dose: 0.125 mg Cefepime HCl 2,000 mg/ Syringe 20 mls @ 5 mls/min IV Q8H JO; Protocol Stop: 02/16/23 21:59 Last Admin: 02/15/23 05:39 Dose: 5 mls/min Metronidazole (Flagyl) 500 mg in 100 mls @ 100 mls/hr IV Q8H JO; Protocol Stop: 02/16/23 21:59 Last Infusion: 02/15/23 06:43 Dose: Infused Daptomycin 625 mg/ Syringe 12.5 mls @ 6.25 mls/min IV Q24H JO; Protocol Stop: 02/17/23 11:59 Last Admin: 02/14/23 12:28 Dose: 6.25 mls/min Promethazine HCl 12.5 mg/ (Sodium Chloride) 50.5 mls @ 202 mls/hr IV Q6H PRN PRN Reason: Nausea And Vomiting Stop: 03/11/23 21:12 Insulin Aspart (Insulin Aspart Per Unit Charge) 0 units SC ACHS [facility]; Protocol Stop: 03/13/23 16:29 Last Admin: 02/15/23 09:03 Dose: 26 units Insulin Human NPH (Insulin Human Nph) 50 units SC BIDM [facility]; Protocol Stop: 03/14/23 16:59 Last Admin: 02/15/23 09:07 Dose: 50 units Levetiracetam (Levetiracetam 500 Mg Tab) 500 mg PO AMHS [facility] Stop: 03/11/23 21:12 Last Admin: 02/15/23 09:10 Dose: 500 mg Levothyroxine Sodium (Levothyroxine Sodium 25 Mcg Tablet) 25 mcg PO DAILYBB [facility] Stop: 03/12/23 06:29 Last Admin: 02/15/23 05:40 Dose: 25 mcg Magnesium Hydroxide (Magnesium Hydroxide Susp 30 Ml Udc) 30 ml PO Q12H PRN PRN Reason: Constipation Stop: 03/11/23 21:12 Magnesium Oxide (Magnesium Oxide 400 Mg Tab) 400 mg PO AMHS [facility] Stop: 03/11/23 21:12 Last Admin: 02/15/23 09:13 Dose: 400 mg Melatonin (Melatonin 3 Mg Tab) 3 mg PO HS PRN PRN Reason: Sleep Stop: 03/12/23 01:24 Last Admin: 02/10/23 01:44 Dose: 3 mg Methenamine Hippurate (Methenamine Hippurate 1 Gm Tab) 1 gm PO BID [facility] Stop: 03/11/23 21:12 Last Admin: 02/15/23 09:12 Dose: 1 gm Miscellaneous (Carbohydrates For Hypoglycemia ) 15 - 30 gm PO UD PRN PRN Reason: Hypoglycemia Protocol Stop: 03/11/23 21:12 Miscellaneous Information (Pharmacy Glycemic Mgmt Consult) 1 each N/A UD PRN PRN Reason: Consult Stop: 03/11/23 21:12 Multivitamins (Multivitamin Tab) 1 tab PO QAM [facility] Stop: 03/12/23 08:59 Last Admin: 02/15/23 09:11 Dose: 1 tab Pantoprazole Sodium (Pantoprazole 40 Mg Tab) 40 mg PO BID [facility] Stop: 03/11/23 21:12 Last Admin: 02/15/23 09:12 Dose: 40 mg Polyethylene Glycol (Polyethylene (Miralax) 17 Gm Pack) 17 gm PO DAILY PRN PRN Reason: Constipation Stop: 03/11/23 21:12 Potassium Chloride (Potassium Chloride 10 Meq Tabcr) 10 meq PO BIDM [facility] Stop: 03/12/23 07:59 Last Admin: 02/15/23 09:10 Dose: 10 meq Ropinirole HCl (Ropinirole Hcl 1 Mg Tablet) 1 mg PO QID [facility] Stop: 03/11/23 21:12 Last Admin: 02/15/23 09:12 Dose: 1 mg Saccharomyces Boulardii (Saccharomyces Boulardii 250 Mg Cap) 250 mg PO BID [facility] Stop: 03/11/23 21:29 Last Admin: 02/15/23 09:13 Dose: 250 mg Spironolactone (Spironolactone 25 Mg Tab) 25 mg PO QAM [facility] Stop: 03/12/23 08:59 Last Admin: 02/15/23 09:11 Dose: 25 mg Tizanidine HCl (Tizanidine Hcl 4 Mg Tablet) 4 mg PO BID@0000,1200 [facility] Stop: 03/12/23 00:00 Last Admin: 02/14/23 23:55 Dose: 4 mg Warfarin Sodium (Warfarin Sod 5 Mg Tab) 5 mg PO MoWeFrSa@1600 [facility] Stop: 03/12/23 15:59 Last Admin: 02/13/23 17:22 Dose: 5 mg (1) Sepsis Sepsis acute organ dysfunction status: without acute organ dysfunction Sepsis type: sepsis due to unspecified organism Qualified Code(s): A41.9 - Sepsis, unspecified organism (2) Sacral decubitus ulcer Pressure injury stage: unspecified pressure injury stage Qualified Code(s): L89.159 - Pressure ulcer of sacral region, unspecified stage
--- NOTE | 2023-02-15 11:43 | XRay Report ---
XR chest 1V portable CLINICAL HISTORY: r/o pna, pulm. congestion COMPARISON STUDY: Chest radiograph February 09, 2023. FINDINGS: Lung volumes are normal. There is no pneumothorax or pleural effusion. Left chest wall wire s are again noted. Several of these are disrupted. This is unchanged. Cardiomegaly is unchanged. Ther e is no evidence for pulmonary edema. No consolidation to suggest pneumonia. IMPRESSION: No acute cardiopulmonary findings. Cardiomegaly. ACT 112: Negative or not required by law. Electronically signed by: Sami Jacobson M.D. 02/15/2023 11:41 AM
[2023-02-15] MEDS: METOPROLOL TARTRATE 25 MG TAB PO SCH (12:20)
[2023-02-15] MEDS: tiZANidine HCL 4 MG TABLET PO SCH ×2 (12:21→23:51)
[2023-02-15] MEDS: DAPTOmycin 625 MG in SYRINGE 0 ML IV SCH (12:31)
--- NOTE | 2023-02-15 12:54 | Pharmacy Report ---
Pharmacy Glycemic Short Note 2 - Date of Service February 15, 2023 - Glycemic Short BSG Results (Last 24 hours): 02/14/23 02/14/23 02/15/23 16:20 20:45 05:57 Glucose 104 H POC Glucose 246 H 271 H 02/15/23 02/15/23 07:11 11:31 Glucose POC Glucose 105 H 187 H OUTPATIENT ANTIDIABETIC REGIMEN: * Novolin 70/30 64 units SQ BID * Novolin R 4 units TIDM per SSI * metformin 1gm PO BIDM HbA1C: 6.9% ASSESSMENT: 02/15: * BSGs largely above goal the last 24h; [phone]/dL. Fasting BSG within goal. Received 90 units of basal and 82 units of bolus insulin yesterday. * Continues on IV antibiotics and tolerating a diet. * Continue with same total daily dose of NPH today given fasting within goal. Will adjust to give the 50 unit dose with breakfast. Novolog tightened given elevated prandial BSGs. 02/12 * Patient went to OR yesterday for debridement. Ordered diet afterwards and patient ate dinner. * Notable increase in BSG from dinner to bedtime likely 2nd insufficient prandial coverage. Correction factor and CHO ratio on previous admissions was tighter than current. Will tighten Novolog * Now ordered diet - will switch back to NPH to help with eventual discharge planning. Will resume close to home dose, (as NPH component of Novolin 70/30). May increase if BSG's notably rise. 02/11 * BSGs well controlled over last 24 hrs * Patient is NPO this AM for possible debridement with Dr Srivastava, however INR is elevated this AM. IV vit K admin this AM, possible OR later today if coags normalized? He remains NPO at this time. * Given uncertainty with PO intake, will convert to Lantus for basal needs as NPH is not a peakless insulin and has a greater risk of hypoglycemia with frequent changes in diet. Lantus will be given in a scaled dose BID to add an element of safety. * Will change Novolog CF/CR doses based upon prior inpatient needs as well as outpt total daily insulin dose (~140+ units/day) 02/10 * Patient is a 62 year old male admitted with sepsis in setting of sacral decubi tus ulcer. History of DM2. Pharmacy consulted to assist with inpatient glycemic management. * BSGs [phone]/dL since admission. No basal last evening. 1 unit of bolus given ~ 0200. * Pt has been NPO for possible debridement. Diet ordered again today for lunch. Also receiving IV antibiotics. * Will give 30 units of NPH this AM (~33% reduction of basal) given NPO status. Evening dose depending on BSGs. Novolog moderate stress scale ACHS. On OR schedule for tomorrow AM. PLAN FOR INPATIENT GLYCEMIC CONTROL: * Hold outpatient oral diabetes medications * Basal insulin * NPH 50 units qAM, 40units with dinner * Bolus insulin * NovoLog per scale ACHS or Q6hrs while NPO * Goal Range: Low 110 mg/dL - High 140 mg/dL * Correction Factor: 10 g/dL/unit * Nutritional / Prandial insulin per carb ratio of 1 unit per 2.5 grams CHO consumed
[2023-02-15] MEDS: WARFARIN SOD 5 MG TAB PO SCH (16:51)
[2023-02-15] MEDS: INSULIN HUMAN NPH SC SCH (17:03)
[2023-02-15] MEDS: MELATONIN 3 MG TAB PO PRN (21:47)
[2023-02-15] MEDS: HYOSCYAMINE SULFATE 0.125 MG TAB PO SCH (21:49)
[2023-02-15] MEDS: CYCLOBENZAPRINE HCL 5 MG TAB PO SCH (23:50)
[2023-02-16] MEDS: LEVOTHYROXINE SODIUM 25 MCG TABLET PO SCH (05:53)
[2023-02-16] MEDS: metroNIDAZOLE 500 MG/100 ML BAG IV SCH ×2 (05:53→15:52)
[2023-02-16] MEDS: CEFEPIME 2,000 MG in SYRINGE 0 ML IV SCH ×3 (05:53→21:21)
[2023-02-16] MEDS: ASCORBIC ACID 500 MG TAB PO SCH ×3 (05:54→17:40)
[2023-02-16] MEDS: BACLOFEN 10 MG TAB PO SCH ×4 (05:58→23:22)
[2023-02-16 06:50] LABS: Hematocrit (blood only) 31.9 % (42.0-52.0); Hemoglobin 9.9 g/dl (14.0-18.0); Mean Corpuscular Hemoglobin 28.4 pg (25.0-34.0); Mean Corpuscular Volume 91.7 fL (80.0-100.0); Mean Platelet Volume 9.2 fL (9.4-12.4); Platelet Count 308 K/uL (130-400); RDW Coefficient of Variation 19.8 % (11.5-14.5); Red Blood Count 3.48 M/uL (4.70-6.10); White Blood Count 12.54 K/ul (4.8-10.8)
[2023-02-16 07:02] LABS: BUN Creatinine Ratio 23.3 (10-20); Calcium 8.5 mg/dl (8.6-10.3); Creatinine Clr Calc Pharmacy 107.2 ml/min; Est GFR (African American) 89.2 ml/min; Est GFR (Non-African American) 76.9 ml/min; Magnesium 2.1 mg/dl (1.7-2.4); Phosphorus 2.7 mg/dl (2.5-4.9); Potassium 4.6 mmol/L (3.5-5.1)
[2023-02-16 07:17] LABS: INR 1.6 (0.9-1.1); Prothrombin Time 17.3 Seconds (9.0-12.0)
--- NOTE | 2023-02-16 07:24 | Hospitalist Progress Note ---
Date of Service February 16, 2023 Assessment & Plan (1) Sepsis: (2) Sacral decubitus ulcer: (3) Left perineal ischial pressure ulcer: (4) Quadriplegia: (5) Neurogenic bladder: (6) Seizure: (7) DM type 2 (diabetes mellitus, type 2): Plan This is a 62-year-old male who has significant past medical history of quadriplegia secondary to traumatic accident years ago, neurogenic bladder with suprapubic catheter, chronic stage IV decubitus ulcer over the past 10 years follows [facility] wound clinic, insulin-dependent T2DM, CKD stage III in setting of diabetic nephropathy, morbid obesity, HTN, seizure disorder, iron deficiency anemia, MGUS followed with hematology, history of VRE, depression, coagulation disorder on chronic Coumadin therapy who presents to ED secondary to referral by [facility] wound clinic due to worsening sacral wound. Patient meets criteria for sepsis in setting of leukocytosis and tachycardia. Source of infection likely in setting of wound. Wound culture was obtained by ED physician. Blood culture sent. Patient with lactic acidosis of 2.8. Sepsis Stage IV decubitus ulcer Left ischial wound Admitted to PCU Broad-spectrum antibiotics with IV daptomycin, cefepime and Flagyl based on pre vious cultures as discussed with ED physician and pharmacist CK 39, hold statin in setting of Dapto use Infectious disease consulted - discussed w/Dr. Boyd - plan for 6 weeks of cefepime (if last blood cultx negative) Wound care nurse already saw and evaluated patient, wound image evaluated General surgery consult placed - pt previously debridement with Dr. Chaudhry, now seen by Dr. Srivastava - pt is now s/p debridement on (02/11/23), cultx from OR obtained Discussed w/ Dr. Srivastava, may try wound vac , but further management would need to be in tertiary care center lactate normalized Hold Lasix for now, consider resuming in a.m. or when appropriate UTI - catheter associated Ucultx - positive for Pseudomonas (resistant for Cipro) Sacrum cultx (02/09/23)- positive for Pseudomonas (sens. to Cipro) Decubitus/ sacrum OR cultx - positive for Pseudomonas (sens. to cipro) Blood cultx repeated and CXR repeated d/t persistent tachycardia. Small dose me toprolol started CXR unremarkable. Encourage incentive spirometry Seizure d/o pt on keppra pt reports seizure like activity on Wednesday, no missed medications another episode today (02/10/23) - discussed with neurology, patient started on Depakote, MRI brain also ordered. Continue Keppra for now, plan to decrease dose next week. Brain MRI - IMPRESSION: 1. Motion degraded exam without acute intracranial abnormality identified. 2. Involutional changes with chronic microvascular ischemic disease. 3. No abnormal enhancement. Per neurology 02/12/23 1. Continue Depakote 500 milligrams p.o. twice a day. 2. Check a trough level after he has been on the medicine for 1-2 weeks. 3. Keep levetiracetam the same for now, but after he has been on Depakote for 2 weeks and the level is adequate, then we will taper off levetiracetam ( 500 mg once daily for 2 weeks, then discontinue ). 4. Keep other medications the same for now Insulin-dependent T2DM NPH and NovoLog per protocol Consult assuming pharmacist for assistance in setting of sepsis a1c 6.6 on 01/20/23 Neurogenic bladder Suprapubic catheter in place History of recurrent UTIs Continue methenamine hippurate Colostomy status Patient with colostomy in place to prevent wound soiling Continue routine ostomy care Chronic anticoagulation 2/2 coagulation disorder Supratherapeutic INR warfarin on hold vit K given prior to OR Monitor INR - plan to hold warfarin for 2-3 days post-op per surgery Chronic Quadraplegia 2/2 traumatic accident DVT ppx: warfarin on hold, SCDs Dispo: PCU FULL CODE PCP: Dr. Stanford Admission and Anticipated Discharge Date Admission Date: February 09, 2023 Subjective Pt seen in follow up of sacral wound infection, UTI, seizure Currently laying in bed, in no acute distress Denies fevers chills chest pain, shortness of breath. Denies abd. pain Seen by surgery and neuro. S/p surg. debridement Pt's unhappy w/ wound care center they go to now in [facility]. CM made aware. No new symptoms today - ID contacted and discussed with - will need 6 weeks of treatment w/ cefepime for Pseudomonas. awaiting repeat blood cultx. Discussed w/ surgery - may try wound vac. Will likely need tertiary center for further management. Review of Systems Review of Systems: All systems reviewed & are unremarkable except as noted in Subjective Physical Exam Physical Exam: Constitutional: WD/WN, morbidly ob fany, M in NAD Head : Normocephalic, A traumatic Eyes: P ERRL, conjunctivae normal, anicteric sclerae ENMT: ex ternal ear and nos e normal, orophary nx normal Neck: t hick neck Respirat ory: normal respi ratory effort, [place] gs clear to auscul tation, no wheeze, rales, rhonchi. Normal insp/exp ef fort, no accessory muscle use Cardio vascular: RRR, no murmur, no edema Vessels: no JVD o r carotid bruit Ch est: normal inspec tion of chest Abdo men: obese abd, +L midline colostomy with brown stool output, normal bow el sounds, soft, n ontender Musculosk eletal:+quad with limited movement to upper ext Skin: no rashes, warm and dry normal tu rgor Neurologic: PERRL, no face pal sy, no dysarthria Psychiatric: A+Ox 3, euthymic affect : +suprapubic c ath no surrounding erythema or drain age, urbina bag wit h clear urine Results & Data Results & Data Vital Signs (Past 12 Hours) Vital Signs Temp Pulse Pulse Resp BP Pulse Ox O2 Del Method 02/16/23 03:13 37.5 C 89 16 132/73 94 Nasal Cannula 02/15/23 22:00 98 H 02/15/23 23:21 37.6 C H 89 18 129/71 95 Room Air 02/15/23 20:00 Room Air 02/15/23 19:40 37.2 C 92 H 22 141/79 H 95 Room Air O2 Flow Rate 02/16/23 03:13 2 02/15/23 22:00 02/15/23 23:21 02/15/23 20:00 02/15/23 19:40 Laboratory Results 02/16/23 02/16/23 02/16/23 Range/Units 06:15 06:15 06:15 WBC 12.54 H (4.8-10.8) K/ul RBC 3.48 L (4.70-6.10) M/uL Hgb 9.9 L (14.0-18.0) g/dl Hct 31.9 L (42.0-52.0) % MCV 91.7 (80.0-100.0) fL MCH 28.4 (25.0-34.0) pg MCHC 31.0 L (32.0-36.0) g/dL RDW Std Deviation 66.0 H (36.4-46.3) fL RDW Coeff of Yoseph 19.8 H (11.5-14.5) % Plt Count 308 (130-400) K/uL MPV 9.2 L (9.4-12.4) fL PT 17.3 H (9.0-12.0) Seconds INR 1.6 H (0.9-1.1) Sodium 136 (136-145) mmol/L Potassium 4.6 (3.5-5.1) mmol/L Chloride 104 (98-107) mmol/L Carbon Dioxide 29 (21-32) mmol/L Anion Gap 3 (3-11) BUN 24 H (6-23) mg/dl Creatinine 1.03 (0.6-1.4) mg/dl Est Cr Clr Drug Dosing 107.2 ml/min Est GFR ( Amer) 89.2 ml/min Est GFR (Non-Af Amer) 76.9 ml/min BUN/Creatinine Ratio 23.3 H (10-20) Glucose 106 H (70-99(Fasting)) mg/dl POC Glucose (70-99) mg/dl Calcium 8.5 L (8.6-10.3) mg/dl Phosphorus 2.7 (2.5-4.9) mg/dl Magnesium 2.1 (1.7-2.4) mg/dl Total Creatine Kinase (30-223) U/L 02/15/23 02/15/23 02/15/23 Range/Units 20:11 17:06 16:07 WBC (4.8-10.8) K/ul RBC (4.70-6.10) M/uL Hgb (14.0-18.0) g/dl Hct (42.0-52.0) % MCV (80.0-100.0) fL MCH (25.0-34.0) pg MCHC (32.0-36.0) g/dL RDW Std Deviation (36.4-46.3) fL RDW Coeff of Yoseph (11.5-14.5) % Plt Count (130-400) K/uL MPV (9.4-12.4) fL PT (9.0-12.0) Seconds INR (0.9-1.1) Sodium (136-145) mmol/L Potassium (3.5-5.1) mmol/L Chloride (98-107) mmol/L Carbon Dioxide (21-32) mmol/L Anion Gap (3-11) BUN (6-23) mg/dl Creatinine (0.6-1.4) mg/dl Est Cr Clr Drug Dosing ml/min Est GFR ( Amer) ml/min Est GFR (Non-Af Amer) ml/min BUN/Creatinine Ratio (10-20) Glucose (70-99(Fasting)) mg/dl POC Glucose 190 H 148 H (70-99) mg/dl Calcium (8.6-10.3) mg/dl Phosphorus (2.5-4.9) mg/dl Magnesium (1.7-2.4) mg/dl Total Creatine Kinase 43 (30-223) U/L 02/15/23 Range/Units 11:31 WBC (4.8-10.8) K/ul RBC (4.70-6.10) M/uL Hgb (14.0-18.0) g/dl Hct (42.0-52.0) % MCV (80.0-100.0) fL MCH (25.0-34.0) pg MCHC (32.0-36.0) g/dL RDW Std Deviation (36.4-46.3) fL RDW Coeff of Yoseph (11.5-14.5) % Plt Count (130-400) K/uL MPV (9.4-12.4) fL PT (9.0-12.0) Seconds INR (0.9-1.1) Sodium (136-145) mmol/L Potassium (3.5-5.1) mmol/L Chloride (98-107) mmol/L Carbon Dioxide (21-32) mmol/L Anion Gap (3-11) BUN (6-23) mg/dl Creatinine (0.6-1.4) mg/dl Est Cr Clr Drug Dosing ml/min Est GFR ( Amer) ml/min Est GFR (Non-Af Amer) ml/min BUN/Creatinine Ratio (10-20) Glucose (70-99(Fasting)) mg/dl POC Glucose 187 H (70-99) mg/dl Calcium (8.6-10.3) mg/dl Phosphorus (2.5-4.9) mg/dl Magnesium (1.7-2.4) mg/dl Total Creatine Kinase (30-223) U/L Medications Administered Current Inpatient Medications Acetaminophen (Acetaminophen 325 Mg Tab) 650 mg PO Q4H PRN PRN Reason: Pain or Fever Stop: 03/11/23 21:12 Last Admin: 02/11/23 13:41 Dose: 650 mg Al Hydrox/Mg Hydrox/Simethicone (Aluminum/Magnesium Susp 30 Ml Udc) 15 ml PO Q4H PRN PRN Reason: Dyspepsia Stop: 03/11/23 21:12 Allopurinol (Allopurinol 100 Mg Tab) 100 mg PO BID [facility] Stop: 03/11/23 21:12 Last Admin: 02/15/23 21:51 Dose: 100 mg Ascorbic Acid (Ascorbic Acid 500 Mg Tab) 250 mg PO TID@0600,1200,1800 [facility] Stop: 03/11/23 21:12 Last Admin: 02/16/23 05:54 Dose: 250 mg Baclofen (Baclofen 10 Mg Tab) 10 mg PO DAILY@0000 [facility] Stop: 03/12/23 00:00 Last Admin: 02/15/23 23:56 Dose: 10 mg Baclofen (Baclofen 10 Mg Tab) 5 mg PO TID@0600,1200,1800 [facility] Stop: 03/12/23 05:59 Last Admin: 02/16/23 05:58 Dose: 5 mg Cyclobenzaprine HCl (Cyclobenzaprine Hcl 5 Mg Tab) 15 mg PO DAILY@0000 [facility] Stop: 03/12/23 00:00 Last Admin: 02/15/23 23:50 Dose: 15 mg Dextrose (Dextrose 50% 50 Ml Syringe) 25 - 50 ml IV UD PRN; Protocol PRN Reason: Hypoglycemia Protocol Stop: 03/11/23 21:12 Divalproex Sodium (Divalproex Delay Release 500 Mg Tab) 500 mg PO BID [facility] Stop: 03/12/23 10:59 Last Admin: 02/15/23 21:52 Dose: 500 mg Docusate Sodium (Docusate Sodium 100 Mg Cap) 100 mg PO [facility] Stop: 03/11/23 21:12 Last Admin: 02/15/23 21:59 Dose: 100 mg Escitalopram Oxalate (Escitalopram Oxalate 20 Mg Tab) 20 mg PO QAM JO Stop: 03/12/23 08:59 Last Admin: 02/15/23 09:10 Dose: 20 mg Famotidine (Famotidine 20 Mg Tab) 20 mg PO BID JO Stop: 03/11/23 21:12 Last Admin: 02/15/23 21:52 Dose: 20 mg Gabapentin (Gabapentin 600 Mg Tab) 600 mg PO BID JO Stop: 03/11/23 21:12 Last Admin: 02/15/23 21:51 Dose: 600 mg Glucagon (Glucagon For Inj 1 Mg Vial) 1 mg SQ UD PRN; Protocol PRN Reason: Hypoglycemia Protocol Stop: 03/11/23 21:12 Glucose (Glucose 10 Tab/Tube) 4 - 8 tab PO UD PRN; Protocol PRN Reason: Hypoglycemia Treatment Stop: 03/11/23 21:12 Glucose (Glucose 40% Gel 15 Gm Tube) 15 - 30 gm PO UD PRN; Protocol PRN Reason: Hypoglycemia Protocol Stop: 03/11/23 21:12 Hyoscyamine (Hyoscyamine Sulfate 0.125 Mg Tab) 0.125 mg PO QPM JO Stop: 03/11/23 21:12 Last Admin: 02/15/23 21:49 Dose: 0.125 mg Cefepime HCl 2,000 mg/ Syringe 20 mls @ 5 mls/min IV Q8H JO; Protocol Stop: 03/23/23 21:59 Last Admin: 02/16/23 05:53 Dose: 5 mls/min Metronidazole (Flagyl) 500 mg in 100 mls @ 100 mls/hr IV Q8H JO; Protocol Stop: 02/16/23 21:59 Last Admin: 02/16/23 05:53 Dose: 100 mls/hr Daptomycin 625 mg/ Syringe 12.5 mls @ 6.25 mls/min IV Q24H JO; Protocol Stop: 02/17/23 11:59 Last Admin: 02/15/23 12:31 Dose: 6.25 mls/min Promethazine HCl 12.5 mg/ (Sodium Chloride) 50.5 mls @ 202 mls/hr IV Q6H PRN PRN Reason: Nausea And Vomiting Stop: 03/11/23 21:12 Insulin Aspart (Insulin Aspart Per Unit Charge) 0 units SC ACHS [facility]; Protocol Stop: 03/13/23 16:29 Last Admin: 02/15/23 21:52 Dose: 5 units Insulin Human NPH (Insulin Human Nph) 50 units SC DAILY@0800 JO; Protocol Stop: 03/17/23 07:59 Insulin Human NPH (Insulin Human Nph) 40 units SC DAILY@1700 JO; Protocol Stop: 03/17/23 16:59 Last Admin: 02/15/23 17:03 Dose: 40 units Levetiracetam (Levetiracetam 500 Mg Tab) 500 mg PO AMHS [facility] Stop: 03/11/23 21:12 Last Admin: 02/15/23 21:53 Dose: 500 mg Levothyroxine Sodium (Levothyroxine Sodium 25 Mcg Tablet) 25 mcg PO DAILYBB [facility] Stop: 03/12/23 06:29 Last Admin: 02/16/23 05:53 Dose: 25 mcg Magnesium Hydroxide (Magnesium Hydroxide Susp 30 Ml Udc) 30 ml PO Q12H PRN PRN Reason: Constipation Stop: 03/11/23 21:12 Magnesium Oxide (Magnesium Oxide 400 Mg Tab) 400 mg PO AMHS [facility] Stop: 03/11/23 21:12 Last Admin: 02/15/23 21:59 Dose: 400 mg Melatonin (Melatonin 3 Mg Tab) 3 mg PO HS PRN PRN Reason: Sleep Stop: 03/12/23 01:24 Last Admin: 02/15/23 21:47 Dose: 3 mg Methenamine Hippurate (Methenamine Hippurate 1 Gm Tab) 1 gm PO BID [facility] Stop: 03/11/23 21:12 Last Admin: 02/15/23 21:50 Dose: 1 gm Metoprolol Tartrate (Metoprolol Tartrate 25 Mg Tab) 12.5 mg PO QAM [facility] Stop: 03/17/23 11:14 Last Admin: 02/15/23 12:20 Dose: 12.5 mg Miscellaneous (Carbohydrates For Hypoglycemia ) 15 - 30 gm PO UD PRN PRN Reason: Hypoglycemia Protocol Stop: 03/11/23 21:12 Miscellaneous Information (Pharmacy Glycemic Mgmt Consult) 1 each N/A UD PRN PRN Reason: Consult Stop: 03/11/23 21:12 Multivitamins (Multivitamin Tab) 1 tab PO QAM [facility] Stop: 03/12/23 08:59 Last Admin: 02/15/23 09:11 Dose: 1 tab Pantoprazole Sodium (Pantoprazole 40 Mg Tab) 40 mg PO BID [facility] Stop: 03/11/23 21:12 Last Admin: 02/15/23 21:53 Dose: 40 mg Polyethylene Glycol (Polyethylene (Miralax) 17 Gm Pack) 17 gm PO DAILY PRN PRN Reason: Constipation Stop: 03/11/23 21:12 Potassium Chloride (Potassium Chloride 10 Meq Tabcr) 10 meq PO BIDM [facility] Stop: 03/12/23 07:59 Last Admin: 02/15/23 17:02 Dose: 10 meq Ropinirole HCl (Ropinirole Hcl 1 Mg Tablet) 1 mg PO QID [facility] Stop: 03/11/23 21:12 Last Admin: 02/15/23 21:49 Dose: 1 mg Saccharomyces Boulardii (Saccharomyces Boulardii 250 Mg Cap) 250 mg PO BID [facility] Stop: 03/11/23 21:29 Last Admin: 02/15/23 21:49 Dose: 250 mg Spironolactone (Spironolactone 25 Mg Tab) 25 mg PO QAM [facility] Stop: 03/12/23 08:59 Last Admin: 02/15/23 09:11 Dose: 25 mg Tizanidine HCl (Tizanidine Hcl 4 Mg Tablet) 4 mg PO BID@0000,1200 [facility] Stop: 03/12/23 00:00 Last Admin: 02/15/23 23:51 Dose: 4 mg Warfarin Sodium (Warfarin Sod 5 Mg Tab) 5 mg PO MoWeFrSa@1600 [facility] Stop: 03/12/23 15:59 Last Admin: 02/15/23 16:51 Dose: 5 mg (1) Sepsis Sepsis acute organ dysfunction status: without acute organ dysfunction Sepsis type: sepsis due to unspecified organism Qualified Code(s): A41.9 - Sepsis, unspecified organism (2) Sacral decubitus ulcer Pressure injury stage: unspecified pressure injury stage Qualified Code(s): L89.159 - Pressure ulcer of sacral region, unspecified stage
[2023-02-16] MEDS: INSULIN ASPART PER UNIT CHARGE SC SCH ×4 (08:52→21:20)
[2023-02-16] MEDS: INSULIN HUMAN NPH SC SCH ×2 (08:52→17:39)
[2023-02-16] MEDS: POTASSIUM CHLORIDE 10 MEQ TABCR PO SCH ×2 (08:53→17:39)
[2023-02-16] MEDS: rOPINIRole HCL 1 MG TABLET PO SCH ×4 (08:54→21:07)
[2023-02-16] MEDS: METHENAMINE HIPPURATE 1 GM TAB PO SCH ×2 (08:54→21:03)
[2023-02-16] MEDS: SPIRONOLACTONE 25 MG TAB PO SCH (08:55)
[2023-02-16] MEDS: FAMOTIDINE 20 MG TAB PO SCH ×2 (08:55→21:04)
[2023-02-16] MEDS: SACCHAROMYCES BOULARDII 250 MG CAP PO SCH ×2 (08:55→21:05)
[2023-02-16] MEDS: DIVALPROEX DELAY RELEASE 500 MG TAB PO SCH ×2 (08:55→21:04)
[2023-02-16] MEDS: GABAPENTIN 600 MG TAB PO SCH ×2 (08:55→21:05)
[2023-02-16] MEDS: levETIRAcetam 500 MG TAB PO SCH ×2 (08:55→21:02)
[2023-02-16] MEDS: allopurinoL 100 MG TAB PO SCH ×2 (08:55→21:05)
[2023-02-16] MEDS: PANTOprazole 40 MG TAB PO SCH ×2 (08:55→21:05)
[2023-02-16] MEDS: METOPROLOL TARTRATE 25 MG TAB PO SCH (08:56)
[2023-02-16] MEDS: MULTIVITAMIN TAB PO SCH (08:56)
[2023-02-16] MEDS: ESCITALOPRAM OXALATE 20 MG TAB PO SCH (08:56)
[2023-02-16] MEDS: DOCUSATE SODIUM 100 MG CAP PO SCH ×2 (09:04→21:20)
[2023-02-16] MEDS: MAGNESIUM OXIDE 400 MG TAB PO SCH ×2 (09:04→21:20)
[2023-02-16] MEDS: tiZANidine HCL 4 MG TABLET PO SCH ×2 (12:37→23:23)
[2023-02-16] MEDS: DAPTOmycin 625 MG in SYRINGE 0 ML IV SCH (12:37)
[2023-02-16] MEDS: HYOSCYAMINE SULFATE 0.125 MG TAB PO SCH (21:03)
[2023-02-16] MEDS: MELATONIN 3 MG TAB PO PRN (21:20)
[2023-02-16] MEDS: CYCLOBENZAPRINE HCL 5 MG TAB PO SCH (23:22)
[2023-02-17] MEDS: BACLOFEN 10 MG TAB PO SCH ×4 (06:29→23:33)
[2023-02-17] MEDS: ASCORBIC ACID 500 MG TAB PO SCH ×3 (06:29→17:27)
[2023-02-17] MEDS: LEVOTHYROXINE SODIUM 25 MCG TABLET PO SCH (06:29)
[2023-02-17 06:57] LABS: Hematocrit (blood only) 30.2 % (42.0-52.0); Hemoglobin 9.3 g/dl (14.0-18.0); Mean Corpuscular Hemoglobin 28.4 pg (25.0-34.0); Mean Corpuscular Hgb Conc 30.8 g/dL (32.0-36.0); Mean Corpuscular Volume 92.1 fL (80.0-100.0); Mean Platelet Volume 9.4 fL (9.4-12.4); Platelet Count 310 K/uL (130-400); RDW Coefficient of Variation 19.9 % (11.5-14.5); RDW Standard Deviation 67.6 fL (36.4-46.3); Red Blood Count 3.28 M/uL (4.70-6.10); White Blood Count 15.35 K/ul (4.8-10.8)
[2023-02-17] MEDS: CEFEPIME 2,000 MG in SYRINGE 0 ML IV SCH ×3 (07:00→21:47)
[2023-02-17 07:10] LABS: Calcium 8.4 mg/dl (8.6-10.3); Creatinine Clr Calc Pharmacy 110.4 ml/min; Est GFR (African American) 92.4 ml/min; Est GFR (Non-African American) 79.7 ml/min; Phosphorus 3.1 mg/dl (2.5-4.9); Potassium 4.7 mmol/L (3.5-5.1)
[2023-02-17] MEDS: INSULIN HUMAN NPH SC SCH ×2 (09:54→17:12)
[2023-02-17] MEDS: INSULIN ASPART PER UNIT CHARGE SC SCH ×4 (09:55→21:47)
[2023-02-17] MEDS: allopurinoL 100 MG TAB PO SCH ×2 (09:57→21:49)
[2023-02-17] MEDS: POTASSIUM CHLORIDE 10 MEQ TABCR PO SCH ×2 (09:57→17:15)
[2023-02-17] MEDS: DIVALPROEX DELAY RELEASE 500 MG TAB PO SCH ×2 (09:57→21:49)
[2023-02-17] MEDS: levETIRAcetam 500 MG TAB PO SCH ×2 (09:58→21:49)
[2023-02-17] MEDS: METOPROLOL TARTRATE 25 MG TAB PO SCH (09:58)
[2023-02-17] MEDS: ESCITALOPRAM OXALATE 20 MG TAB PO SCH (09:58)
[2023-02-17] MEDS: FAMOTIDINE 20 MG TAB PO SCH ×2 (09:58→21:50)
[2023-02-17] MEDS: METHENAMINE HIPPURATE 1 GM TAB PO SCH ×2 (09:58→21:50)
[2023-02-17] MEDS: rOPINIRole HCL 1 MG TABLET PO SCH ×4 (09:58→21:48)
[2023-02-17] MEDS: SPIRONOLACTONE 25 MG TAB PO SCH (09:58)
[2023-02-17] MEDS: GABAPENTIN 600 MG TAB PO SCH ×2 (09:58→21:50)
[2023-02-17] MEDS: DOCUSATE SODIUM 100 MG CAP PO SCH ×2 (09:59→21:47)
[2023-02-17] MEDS: SACCHAROMYCES BOULARDII 250 MG CAP PO SCH ×2 (09:59→21:50)
[2023-02-17] MEDS: PANTOprazole 40 MG TAB PO SCH ×2 (09:59→21:49)
[2023-02-17] MEDS: MULTIVITAMIN TAB PO SCH (09:59)
[2023-02-17] MEDS: tiZANidine HCL 4 MG TABLET PO SCH ×2 (12:07→23:33)
[2023-02-17] MEDS: MAGNESIUM OXIDE 400 MG TAB PO SCH ×2 (12:07→21:47)
--- NOTE | 2023-02-17 13:59 | Hospitalist Progress Note ---
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 He is being managed for the following: Severe Sepsis POA: infected sacral ulcer, leukocytosis and tachycardia Stage IV decubitus ulcer Left ischial wound Initially started on broad-spectrum antibiotic with IV daptomycin, cefepime, Flagyl based on previous cultures, prior attending discussed with ID and plan was to treat with 6 weeks of cefepime if last blood culture is negative. Patient's statin is on hold due to patient being on daptomycin which will discontinue today, CPK level WNL recently. We will repeat CPK in next few days to resume his a statin. We will follow-up on the blood culture, will possibly get PICC line tomorrow and possible discharge on IV cefepime as per ID recommendation [see above]. status post debridement of sacral ulcer by Dr. Srivastava on 02/11/2023. Cultures from OR and urine culture report reviewed. Wound care on board, appreciate recommendation. After acute infection is resolved, possible follow-up with tertiary center for further management per prior attending's discussion with surgeon. Patient will need close follow-up with ID. Patient was started on metoprolol due to persistent tachycardia, will continue to follow clinically and see if heart rate improves with ongoing antibiotic treatment. Increased blood lactic acid level: Normalized. Catheter associated UTI: Urine culture reviewed, patient on cefepime [see above]. Seizure disorder: pt reports seizure like activity on Wednesday, no missed medications. Another episode on 02/10/2023. MRI brain was obtained, reviewed. Appreciate neurology recommendations 02/12/2023. Patient was started on Depakote 500 mg twice a day, levetiracetam to be tapered after trough level of Depakote in 2 weeks after the start date. Other chronic medical conditions: Resume/continue home meds as able Insulin-dependent T2DM: A1c of 6.9 this admission, glycemic pharmacy on board, sliding scale insulin. Neurogenic bladder/suprapubic cath in place/history of recurrent UTIs: Continue with methenamine hippurate Colostomy status: Colostomy in place to prevent wound swelling, continue routine ostomy care Chronic anticoagulation secondary to coagulation disorder: Monitor INR daily or as needed, continue with home warfarin dose. Chronic quadriplegia secondary to traumatic accident: Continue supportive care DVT prophylaxis: already on Warfarin Dispo: PCU, likely DC in next 1 to 2 days, PICC line prior to DC, will need long-term IV antibiotic. Full code Admission and Anticipated Discharge Date Admission Date: February 09, 2023 Subjective Patient seen and examined at bedside as a follow-up of sepsis, chronic stage IV decubitus ulcer, infection of the sacral ulcer. Patient was lying semiupright in bed, on room air, NAD, reports no new acute event overnight, reports eating okay, also reports having good output via stoma. Patient denies any headache or dizziness or chest pain. Patient is status post debridement of sacral ulcer by Dr. Srivastava on 02/11/2023. Pt's unhappy w/ wound care center they go to now in [place]. Physical Exam Physical Exam: GENERAL: Alert and oriented x3. NAD, on RA. Obese class III. HEENT: No pallor, no icterus. Pupils equal, round and reactive to light. Oral mucosa moist. NECK: No JVD, no neck masses. HEART: S1 and S2 heard. Regular rate and rhythm. No murmur, no gallop. RESPIRATORY SYSTEM: Normal AP diameter. No accessory muscle use. No wheezing, no crackles. ABDOMEN: Soft, bowel sounds present, nontender, no distention. Stoma bag w/ fecal output. Suprapubic cath noted. CENTRAL NERVOUS SYSTEM: No facial droop. Speech is clear. Obeys simple comm ands. Quadriplegia noted w/ BLE paralysis and BUE paresis. EXTREMITIES: trace ble edema, no erythema seen. Sacral decubitus wound images reviewed. Results & Data Results & Data Vital Signs (Past 12 Hours) Vital Signs Temp Pulse Pulse Resp BP Pulse Ox O2 Del Method 02/17/23 11:33 37 C 110 H 18 100/67 92 Room Air 02/17/23 08:00 Room Air 02/17/23 07:00 76 02/17/23 09:50 96 H 131/67 02/17/23 07:20 36.5 C 98 H 18 161/76 H 95 Nasal Cannula 02/17/23 03:12 36.7 C 80 21 145/71 H 98 Nasal Cannula O2 Flow Rate 02/17/23 11:33 02/17/23 08:00 02/17/23 07:00 02/17/23 09:50 02/17/23 07:20 3 02/17/23 03:12 3 (1) Sepsis Sepsis acute organ dysfunction status: without acute organ dysfunction Sepsis type: sepsis due to unspecified organism Qualified Code(s): A41.9 - Sepsis, unspecified organism (2) Sacral decubitus ulcer Pressure injury stage: unspecified pressure injury stage Qualified Code(s): L89.159 - Pressure ulcer of sacral region, unspecified stage
[2023-02-17] MEDS: WARFARIN SOD 5 MG TAB PO SCH (17:13)
[2023-02-17] MEDS: HYOSCYAMINE SULFATE 0.125 MG TAB PO SCH (21:50)
[2023-02-17] MEDS: CYCLOBENZAPRINE HCL 5 MG TAB PO SCH (23:33)
[2023-02-18] MEDS: BACLOFEN 10 MG TAB PO SCH ×3 (05:52→16:47)
[2023-02-18] MEDS: CEFEPIME 2,000 MG in SYRINGE 0 ML IV SCH ×3 (05:52→21:14)
[2023-02-18] MEDS: ASCORBIC ACID 500 MG TAB PO SCH ×3 (05:53→16:48)
[2023-02-18] MEDS: LEVOTHYROXINE SODIUM 25 MCG TABLET PO SCH (05:53)
[2023-02-18 07:16] LABS: Hematocrit (blood only) 31.5 % (42.0-52.0); Hemoglobin 9.8 g/dl (14.0-18.0); Mean Corpuscular Hemoglobin 28.6 pg (25.0-34.0); Mean Corpuscular Hgb Conc 31.1 g/dL (32.0-36.0); Mean Corpuscular Volume 91.8 fL (80.0-100.0); Platelet Count 291 K/uL (130-400); RDW Coefficient of Variation 20.3 % (11.5-14.5); Red Blood Count 3.43 M/uL (4.70-6.10); White Blood Count 13.69 K/ul (4.8-10.8)
[2023-02-18 07:26] LABS: Calcium 8.5 mg/dl (8.6-10.3); Est GFR (African American) 97.1 ml/min; Est GFR (Non-African American) 83.8 ml/min; Magnesium 2.1 mg/dl (1.7-2.4); Phosphorus 2.8 mg/dl (2.5-4.9); Potassium 4.7 mmol/L (3.5-5.1)
[2023-02-18 07:29] LABS: INR 1.4 (0.9-1.1); Prothrombin Time 15.5 Seconds (9.0-12.0)
[2023-02-18] MEDS: INSULIN HUMAN NPH SC SCH ×2 (08:07→16:43)
[2023-02-18] MEDS: INSULIN ASPART PER UNIT CHARGE SC SCH ×4 (08:07→21:14)
[2023-02-18] MEDS: MAGNESIUM OXIDE 400 MG TAB PO SCH ×2 (08:12→21:14)
[2023-02-18] MEDS: DOCUSATE SODIUM 100 MG CAP PO SCH ×2 (08:12→21:14)
[2023-02-18] MEDS: POTASSIUM CHLORIDE 10 MEQ TABCR PO SCH ×2 (08:12→16:49)
[2023-02-18] MEDS: SACCHAROMYCES BOULARDII 250 MG CAP PO SCH ×2 (08:14→21:00)
[2023-02-18] MEDS: rOPINIRole HCL 1 MG TABLET PO SCH ×4 (08:14→21:00)
[2023-02-18] MEDS: METOPROLOL TARTRATE 25 MG TAB PO SCH (08:14)
[2023-02-18] MEDS: METHENAMINE HIPPURATE 1 GM TAB PO SCH ×2 (08:15→21:00)
[2023-02-18] MEDS: GABAPENTIN 600 MG TAB PO SCH ×2 (08:16→20:59)
[2023-02-18] MEDS: MULTIVITAMIN TAB PO SCH (08:16)
[2023-02-18] MEDS: allopurinoL 100 MG TAB PO SCH ×2 (08:16→20:59)
[2023-02-18] MEDS: FAMOTIDINE 20 MG TAB PO SCH ×2 (08:17→20:59)
[2023-02-18] MEDS: levETIRAcetam 500 MG TAB PO SCH ×2 (08:17→21:00)
[2023-02-18] MEDS: PANTOprazole 40 MG TAB PO SCH ×2 (08:17→21:00)
[2023-02-18] MEDS: SPIRONOLACTONE 25 MG TAB PO SCH (08:18)
[2023-02-18] MEDS: DIVALPROEX DELAY RELEASE 500 MG TAB PO SCH ×2 (08:18→20:59)
[2023-02-18] MEDS: ESCITALOPRAM OXALATE 20 MG TAB PO SCH (08:18)
[2023-02-18] MEDS: tiZANidine HCL 4 MG TABLET PO SCH (12:18)
--- NOTE | 2023-02-18 13:19 | Pharmacy Report ---
Pharmacy Glycemic Short Note 2 - Date of Service February 18, 2023 - Glycemic Short BSG Results (Last 24 hours): 02/17/23 02/17/23 02/18/23 16:12 20:49 06:41 Glucose 117 H POC Glucose 189 H 213 H 02/18/23 02/18/23 07:05 11:28 Glucose POC Glucose 148 H 153 H OUTPATIENT ANTIDIABETIC REGIMEN: * Novolin 70/30 64 units SQ BID * Novolin R 4 units TIDM per SSI * metformin 1gm PO BIDM HbA1C: 6.9% ASSESSMENT: 02/18: * BSGs largely within goal the last 48h - [phone]. Fasting 148mg/dL this AM. Received 90 units of basal and 76 units of bolus insulin yesterday. * Continues on antibiotics and tolerating diet- other stressors stable. * Plant to increase basal slightly (~5%) as fasting has been trending up mildly the last 2 days. No change to Novolog parameters. 02/15: * BSGs largely above goal the last 24h; [phone]/dL. Fasting BSG within goal. Received 90 units of basal and 82 units of bolus insulin yesterday. * Continues on IV antibiotics and tolerating a diet. * Continue with same total daily dose of NPH today given fasting within goal. Will adjust to give the 50 unit dose with breakfast. Novolog tightened given elevated prandial BSGs. 02/12 * Patient went to OR yesterday for debridement. Ordered diet afterwards and patient ate dinner. * Notable increase in BSG from dinner to bedtime likely 2nd insufficient prandial coverage. Correction factor and CHO ratio on previous admissions was tighter than current. Will tighten Novolog * Now ordered diet - will switch back to NPH to help with eventual discharge planning. Will resume close to home dose, (as NPH component of Novolin 70/30). May increase if BSG's notably rise. 02/11 * BSGs well controlled over last 24 hrs * Patient is NPO this AM for possible debridement with Dr Srivastava, however INR is elevated this AM. IV vit K admin this AM, possible OR later today if coags normalized? He remains NPO at this time. * Given uncertainty with PO intake, will convert to Lantus for basal needs as NPH is not a peakless insulin and has a greater risk of hypoglycemia with frequent changes in diet. Lantus will be given in a scaled dose BID to add an element of safety. * Will change Novolog CF/CR doses based upon prior inpatient needs as well as outpt total daily insulin dose (~140+ units/day) 02/10 * Patient is a 62 year old male admitted with sepsis in setting of sacral decubitus ulcer. History of DM2. Pharmacy consulted to assist with inpatient glycemic management. * BSGs [phone]/dL since admission. No basal last evening. 1 unit of bolus given ~ 0200. * Pt has been NPO for possible debridement. Diet ordered again today for lunch. Also receiving IV antibiotics. * Will give 30 units of NPH this AM (~33% reduction of basal) given NPO status. Evening dose depending on BSGs. Novolog moderate stress scale ACHS. On OR schedule for tomorrow AM. PLAN FOR INPATIENT GLYCEMIC CONTROL: * Hold outpatient oral diabetes medications * Basal insulin * NPH 50 units qAM, 45units with dinner * Bolus insulin * NovoLog per scale ACHS or Q6hrs while NPO * Goal Range: Low 110 mg/dL - High 140 mg/dL * Correction Factor: 10 g/dL/unit * Nutritional / Prandial insulin per carb ratio of 1 unit per 2.5 grams CHO consumed
[2023-02-18] MEDS ORDERED: WARFARIN SOD 7.5 MG TAB PO SCH (16:00)
--- NOTE | 2023-02-18 17:06 | Hospitalist Progress Note ---
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 He is being managed for the following: Severe Sepsis POA: infected sacral ulcer, leukocytosis and tachycardia Stage IV decubitus ulcer Left ischial wound Initially started on broad-spectrum antibiotic with IV daptomycin, cefepime, Flagyl based on previous cultures, prior attending discussed with ID and plan was to treat with 6 weeks of cefepime if last blood culture is negative. Patient's statin is on hold due to patient being on daptomycin which was done 02/17, CPK level WNL recently. We will repeat CPK in next few days to resume his a statin. Bl Cx no growth 48 hours, PICC line in place. and possible discharge on IV cefepime as per ID recommendation [see above]. status post debridement of sacral ulcer by Dr. Srivastava on 02/11/2023. Cultures from OR and urine culture report reviewed. Wound care on board, appreciate recommendation. After acute infection is resolved, possible follow-up with tertiary center for further management per prior attending's discussion with surgeon. Patient will need close follow-up with ID. Patient was started on metoprolol due to persistent tachycardia, will continue to follow clinically and see if heart rate improves with ongoing antibiotic treatment. Increased blood lactic acid level: Normalized. Catheter associated UTI: Urine culture reviewed, patient on cefepime [see above]. Seizure disorder: pt reports seizure like activity on Wednesday, no missed medications. Another episode on 02/10/2023. MRI brain was obtained, reviewed. Appreciate neurology recommendations 02/12/2023. Patient was started on Depakote 500 mg twice a day, levetiracetam to be tapered after trough level of Depakote in 2 weeks after the start date. Other chronic medical conditions: Resume/continue home meds as able Insulin-dependent T2DM: A1c of 6.9 this admission, glycemic pharmacy on board, sliding scale insulin. Neurogenic bladder/suprapubic cath in place/history of recurrent UTIs: Continue with methenamine hippurate Colostomy status: Colostomy in place to prevent wound swelling, continue routine ostomy care Chronic anticoagulation secondary to coagulation disorder: Monitor INR daily or as needed, continue with home warfarin dose. Chronic quadriplegia secondary to traumatic accident: Continue supportive care DVT prophylaxis: already on Warfarin Dispo: PCU, likely DC louann, cm assissting. Full code Admission and Anticipated Discharge Date Admission Date: February 09, 2023 Subjective Patient seen and examined at bedside as a follow-up of sepsis, chronic stage IV decubitus ulcer, infection of the sacral ulcer. Patient was sitting up in bed/eating his lunch, on room air, NAD, reports no new acute event overnight, reports eating okay, also reports having good output via stoma. Patient denies any headache or dizziness or chest pain. Patient is status post debridement of sacral ulcer by Dr. Srivastava on 02/11/2023. Pt's unhappy w/ wound care center they go to now in [place]. Physical Exam Physical Exam: GENERAL: Alert and oriented x3. NAD, on RA. Obese class III. HEENT: No pallor, no icterus. Pupils equal, round and reactive to light. Oral mucosa moist. NECK: No JVD, no neck masses. HEART: S1 and S2 heard. Regular rate and rhythm. No murmur, no gallop. RESPIRATORY SYSTEM: Normal AP diameter. No accessory muscle use. No wheezing, no crackles. ABDOMEN: Soft, bowel sounds present, nontender, no distention. Stoma bag w/ fec al output. Suprapubic cath noted. CENTRAL NERVOUS SYSTEM: No facial droop. Speech is clear. Obeys simple commands. Quadriplegia noted w/ BLE paralysis and BUE paresis. EXTREMITIES: trace ble edema, no erythema seen. Sacral decubitus wound images reviewed. Results & Data Results & Data Vital Signs (Past 12 Hours) Vital Signs Temp Pulse Pulse Resp BP BP Pulse Ox 02/18/23 14:00 89 02/18/23 14:54 36.8 C 85 17 95/61 L 91 02/18/23 10:53 36.7 C 97 H 18 117/60 96 02/18/23 08:00 92 H 02/18/23 08:00 02/18/23 07:04 36.7 C 84 16 103/66 98 O2 Del Method O2 Flow Rate 02/18/23 14:00 02/18/23 14:54 Room Air 02/18/23 10:53 Room Air 02/18/23 08:00 02/18/23 08:00 Room Air 02/18/23 07:04 Nasal Cannula 2.0 (1) Sepsis Sepsis acute organ dysfunction status: without acute organ dysfunction Sepsis type: sepsis due to unspecified organism Qualified Code(s): A41.9 - Sepsis, unspecified organism (2) Sacral decubitus ulcer Pressure injury stage: unspecified pressure injury stage Qualified Code(s): L89.159 - Pressure ulcer of sacral region, unspecified stage
[2023-02-18] MEDS: HYOSCYAMINE SULFATE 0.125 MG TAB PO SCH (21:00)
[2023-02-19] MEDS: CYCLOBENZAPRINE HCL 5 MG TAB PO SCH (00:05)
[2023-02-19] MEDS: BACLOFEN 10 MG TAB PO SCH ×4 (00:05→17:09)
[2023-02-19] MEDS: tiZANidine HCL 4 MG TABLET PO SCH ×2 (00:06→12:03)
[2023-02-19] MEDS: ASCORBIC ACID 500 MG TAB PO SCH ×3 (05:57→17:10)
[2023-02-19] MEDS: CEFEPIME 2,000 MG in SYRINGE 0 ML IV SCH ×2 (05:57→15:07)
[2023-02-19] MEDS: LEVOTHYROXINE SODIUM 25 MCG TABLET PO SCH (06:00)
[2023-02-19 07:21] LABS: INR 1.5 (0.9-1.1); Prothrombin Time 15.9 Seconds (9.0-12.0)
[2023-02-19] MEDS: INSULIN ASPART PER UNIT CHARGE SC SCH ×3 (07:46→17:00)
[2023-02-19] MEDS: INSULIN HUMAN NPH SC SCH ×2 (07:47→17:02)
[2023-02-19] MEDS: DOCUSATE SODIUM 100 MG CAP PO SCH (07:55)
[2023-02-19] MEDS: MAGNESIUM OXIDE 400 MG TAB PO SCH (07:55)
[2023-02-19] MEDS: POTASSIUM CHLORIDE 10 MEQ TABCR PO SCH ×2 (07:55→17:13)
[2023-02-19] MEDS: MULTIVITAMIN TAB PO SCH (07:56)
[2023-02-19] MEDS: METOPROLOL TARTRATE 25 MG TAB PO SCH (07:56)
[2023-02-19] MEDS: ESCITALOPRAM OXALATE 20 MG TAB PO SCH (07:57)
[2023-02-19] MEDS: SACCHAROMYCES BOULARDII 250 MG CAP PO SCH (07:58)
[2023-02-19] MEDS: rOPINIRole HCL 1 MG TABLET PO SCH ×3 (07:58→17:11)
[2023-02-19] MEDS: PANTOprazole 40 MG TAB PO SCH (07:58)
[2023-02-19] MEDS: GABAPENTIN 600 MG TAB PO SCH (07:59)
[2023-02-19] MEDS: METHENAMINE HIPPURATE 1 GM TAB PO SCH (07:59)
[2023-02-19] MEDS: levETIRAcetam 500 MG TAB PO SCH (08:00)
[2023-02-19] MEDS: FAMOTIDINE 20 MG TAB PO SCH (08:00)
[2023-02-19] MEDS: DIVALPROEX DELAY RELEASE 500 MG TAB PO SCH (08:00)
[2023-02-19] MEDS ORDERED: WARFARIN SOD 3 MG TAB PO ONE (08:00)
[2023-02-19] MEDS: allopurinoL 100 MG TAB PO SCH (08:01)
[2023-02-19] MEDS: SPIRONOLACTONE 25 MG TAB PO SCH (08:01)
--- NOTE | 2023-02-19 11:56 | Discharge Summary ---
Date of Service February 19, 2023 Admission HPI Per Admitting Provider This is a 62-year-old male who has significant past medical history of quadriplegia secondary to traumatic accident years ago, neurogenic bladder with suprapubic catheter, chronic stage IV decubitus ulcer over the past 10 years follows [facility] wound clinic, insulin-dependent T2DM, CKD stage III in setting of diabetic nephropathy, morbid obesity, HTN, seizure disorder, iron deficiency anemia, MGUS followed with hematology, history of VRE, depression, coagulation disorder on chronic Coumadin therapy who presents to ED secondary to referral by [facility] wound clinic due to worsening sacral wound. He sta sravan over the last several days he had noticed increased drainage out of his wound requiring the change dressing twice daily where previously only required once daily changes. Suffering from sacral wound for many years. Back in 2020 he required a surgical debridement by Dr. Chaudhry in which the wound never entirely healed. Over the last 2 years he has been following with [facility] wound center and also noted a new area of the left buttock below the rectum. Due to worsening of the wound care center recommended referral to ER. He also reports that he had episode of seizure over the weekend on Wednesday that lasted a couple minutes. He has not missed any doses of his Keppra. Last time this occurred was in setting of infection. He follows with [facility] neurology. In ED patient met criteria for sepsis secondary to leukocytosis and tachycardia. Wound care nurse evaluated wound and filled both wounds with Aquacel AG and Optifoam. It is recommended for surgical debridement. Sharp bone was found and sacral wound. Wound bed 100% nonviable tissue. Left ischial wound was difficult to assess. Patient is mostly bedbound due to the wound but does get out of bed for a couple hours a day. Again he has a chronic suprapubic catheter changed at beginning of month as well as a colostomy to prevent soilage of wound. He has been compliant with his medications. Admission Exam Per Admitting Provider Constitutional: WD/WN, morbidly obese, vitals as above, NAD, lying in bed, pleasant, conversing easily Head: Normocephalic, Atraumatic Eyes: PERRL, conjunctivae normal, anicteric sclerae ENMT: external ear and nose normal, oropharynx normal Neck: trachea midline, no thyromegaly normal visual inspection Respiratory: normal respiratory effort, lungs clear to auscultation, no wheeze, rales, rhonchi. Normal insp/exp effort, no accessory muscle use Cardiovascular: RRR, no murmur, no edema Vessels: no JVD or carotid bruit Chest: normal inspection of chest Abdomen:obese abd, +L midline colostomy with brown stool output, normal bowel sounds, soft, nontender, no hepatosplenomegaly Musculoskeletal: no cyanosis or clubbing, +quad with limited movement to upper ext Skin: no rashes, warm and dry normal turgor Neurologic: PERRL, , no face palsy, no dysarthria CN's II-XI intact bilaterally and moves all extremities Psychiatric: A+Ox3, euthymic affect Lymphatic: no cervical or axillary lymphadenopathy : +suprapubic cath no surrounding erythema or drainage, urbina bag with clear urine Principal Diagnosis Severe sepsis POA Stage IV decubitus ulcer, infected Left ischial wound Catheter associated UTI Seizure disorder Discharge Exam GENERAL: Alert and oriented x3. NAD, on RA. Obese class III. HEENT: No pallor, no icterus. Pupils equal, round and reactive to light. Oral mucosa moist. NECK: No JVD, no neck masses. HEART: S1 and S2 heard. Regular rate and rhythm. No murmur, no gallop. RESPIRATORY SYSTEM: Normal AP diameter. No accessory muscle use. No wheezing, no crackles. ABDOMEN: Soft, bowel sounds present, nontender, no distention. Stoma bag w/ fecal output. Suprapubic cath noted. CENTRAL NERVOUS SYSTEM: No facial droop. Speech is clear. Obeys simple commands. Quadriplegia noted w/ BLE paralysis and BUE paresis. EXTREMITIES: trace ble edema, no erythema seen. Sacral decubitus wound images reviewed. Discharge Data Allergies Allergy/AdvReac Type Severity Reaction Status Date / Time codeine Allergy Severe THROAT Verified 05/22/22 18:39 SWELLS latex Allergy Intermediate Hives Verified 05/22/22 18:39 piperacillin Allergy Intermediate Hives Verified 05/22/22 18:39 Sulfa (Sulfonamide Allergy Intermediate HIVES Verified 05/22/22 18:39 Antibiotics) tazobactam Allergy Intermediate Hives Verified 05/22/22 18:39 aztreonam Allergy Unknown unknown Verified 05/22/22 18:39 metoclopramide [From Reglan] AdvReac Intermediate lethargy Verified 05/22/22 18:39 Consultations 02/09/23 17:07 ED Decision to Admit Stat 02/09/23 17:34 Consult General Surgery Routine 02/09/23 17:52 Consult Infectious Diseases Routine Consult Neurology Routine Procedures Performed Operation Date: 02/11/23 10:50 Actual Procedures p Debridement of Sacral Ulcer(Not Applicable) - Artemio Srivastava MD, FACS Ordered Studies 02/09/23 14:15 CT Abd and Pelvis [CT abd pelvis IV con only] Stat 02/10/23 10:40 MRI Brain [MR brain wo/w con] Routine Hospital Course (1) Sepsis: (2) Sacral decubitus ulcer: (3) Left perineal ischial pressure ulcer: (4) Quadriplegia: (5) Neurogenic bladder: (6) Seizure: (7) DM type 2 (diabetes mellitus, type 2): Plan 62-year-old male w/ PMH of 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 He was managed for the following: Severe Sepsis POA: infected sacral ulcer, leukocytosis and tachycardia Stage IV decubitus ulcer Left ischial wound Initially started on broad-spectrum antibiotic with IV daptomycin, cefepime, Flagyl based on previous cultures, prior attending discussed with ID and plan was to treat with 6 weeks of cefepime if last blood culture is negative. Patient's statin is on hold due to patient being on daptomycin which was done 02/17, CPK level WNL recently. We will repeat CPK in next few days to resume his a statin. Pt aware to have it repeated as OP in next week by contacting PCP office. Bl Cx no growth 48 hours, PICC line in place. and discharge on IV cefepime as per ID recommendation [see above]. status post debridement of sacral ulcer by Dr. Srivastava on 02/11/2023. Cultures from OR and urine culture report reviewed. Wound care on board, appreciate recommendation. After acute infection is resolved, possible follow-up with tertiary center for further management per prior attending's discussion with surgeon. Patient will need close follow-up with ID. Patient was started on metoprolol due to persistent tachycardia, HR has been fluctuating but fairly normal to high normal. Increased blood lactic acid level: Normalized. Catheter associated UTI: Urine culture reviewed, patient on cefepime [see above]. Seizure disorder: pt reports seizure like activity on Wednesday, no missed medications. Another episode on 02/10/2023. MRI brain was obtained, reviewed. Appreciate neurology recommendations 02/12/2023. Patient was started on Depakote 500 mg twice a day, levetiracetam to be tapered after trough level of Depakote in 2 weeks after the start date. Pt aware to coordinate w/ pcp office for depakote level and then he is aware to f/u with neurology in 1-2 weeks time. Other chronic medical conditions: Resume/continue home meds as able Insulin-dependent T2DM: A1c of 6.9 this admission, glycemic pharmacy on board, sliding scale insulin. Neurogenic bladder/suprapubic cath in place/history of recurrent UTIs: Continue with methenamine hippurate Colostomy status: Colostomy in place to prevent wound swelling, continue routine ostomy care Chronic anticoagulation secondary to coagulation disorder: Monitor INR daily or as needed, continue with home warfarin dose. Chronic quadriplegia secondary to traumatic accident: Continue supportive care DVT prophylaxis: already on Warfarin Dispo: PCU, likely BENITA lew cm assissting. Full code Patient being discharged home with home health with following instruction at the point of discharge: Follow-up with your primary care physician within a week time and likely you will need labs CBC/CMP/magnesium/phosphorus. Because you were recently on daptomycin, your statin is on hold until you get repeat CPK level in 3 to 5 days and it comes back normal when you can resume your prior home dose of statin. Coordinate with your PCP office for CPK level/resuming statin. Follow-up with your neurology in 1 to 2 weeks upon discharge. As per neurology recommendation while inpatient for recent seizure, you are started on Depakote 02/10/2023 on top of your prior home dose of Keppra. You will need Depakote level done in 2 weeks [around February 24] and if it is adequate then your Keppra dose will be 500 mg once daily for 2 weeks and then discontinue. Coordinate with your PCP office for Depakote level and follow-up with the neurology. Continue to follow-up with the wound care and as per our general surgery recommendation, you will need further management at tertiary center for your w ound. Follow-up with your infectious disease doctor in 2 to 4 weeks upon discharge. Follow-up with the Coumadin clinic in 2 to 4 days time for repeat PT/INR and further instruction on Coumadin management from them. Take your medications as prescribed. Please make sure that you are able to get your medications today by calling your pharmacy before you leave the hospital so that your treatment continuity is not broken. Home Health Attestation I certify that this patient is under my care and that I, or a physicians patient observation assistant working with me, had a face to-face encounter that meets the home health cohe-aj-oeao encounter requirements with this patient. The encounter with the patient was in whole, or in part, for the following medical condition, which is the primary reason for home health care (list medical condition): I certify that, based on my findings, the following services are medically necessary home health services: My clinical findings support the need for the above services because: Skilled Nsg Instruction New Medications Further, I certify that my clinical findings support that this patient is homebound (i.e. absences from home require considerable and taxing effort and are for medical reasons or synagogue services or infrequently or of short duration when for other reasons) because: Certification for Home Health Services: Based on the above findings, I certify that this patient is confined to the home and needs intermittent retirement care, physical therapy and/or speech therapy or continues to need occupational therapy. The patient is under my care, and I have initiated the establishment of the plan of care. This patient will be followed by a physician who will periodically review the plan of care. Total Time Total Time Spent Total Time Spent (In Minutes): 55 Discharge Plan Discharge Items Patient Disposition: Home - Home Health Services Reason For Visit: INFECTED SACRAL WOUND Discharge Diagnosis: Severe sepsis POA Stage IV decubitus ulcer, infected Left ischial wound Catheter associated UTI Seizure disorder Condition on Discharge: Fair Activity: Resume your previous activity Non-emergency contact: Primary Care Provider Call non-emergency contact if: you have any medication questions Follow-up/Referrals: Wilder Stanford MD [Primary Care Provider] - (Date & Time 02/24/2023 1:40 PM Provider Maureen Coppola MD Department Family [facility] ) Diet: Carb Consistent or DM2 Addtl Attending Provider Instructions: Follow-up with your primary care physician within a week time and likely you will need labs CBC/CMP/magnesium/phosphorus. Because you were recently on daptomycin, your statin is on hold until you get repeat CPK level in 3 to 5 days and it comes back normal when you can resume your prior home dose of statin. Coordinate with your PCP office for CPK level/ resuming statin. Follow-up with your neurology in 1 to 2 weeks upon discharge. As per neurology recommendation while inpatient for recent seizure, you are started on Depakote 02/10/2023 on top of your prior home dose of Keppra. You will need Depakote level done in 2 weeks [around February 24] and if it is adequate then your Keppra dose will be 500 mg once daily for 2 weeks and then discontinue. Coordinate with your PCP office for Depakote level and follow-up with the neurology. Continue to follow-up with the wound care and as per our general surgery recommendation, you will need further management at tertiary center for your wound. Follow-up with your infectious disease doctor in 2 to 4 weeks upon discharge. Follow-up with the Coumadin clinic in 2 to 4 days time for repeat PT/INR and further instruction on Coumadin management from them. Take your medications as prescribed. Please make sure that you are able to get your medications today by calling your pharmacy before you leave the hospital so that your treatment continuity is not broken. Pending Studies at Discharge: Yes Stand-Alone Forms: My Lingu[employer], Smoking Cessation Medications and DC Order Prescriptions: New metoprolol tartrate 25 mg Tablet 12.5 mg PO QAM Qty: 15 0RF divalproex 500 mg Tablet,Delayed Release (Dr/Ec) 500 mg PO BID Qty: 60 0RF cefepime 2 gram recon soln 2 g IV Q8H Qty: 35 0RF Rx Instructions: total 6 weeks therapy Continued warfarin 5 mg tablet 5 mg PO 4XWK Rx Instructions: MON/WED/FRI/SAT escitalopram oxalate 20 mg tablet 20 mg PO QAM Novolin 70/30 U-100 Insulin 100 unit/mL (70-30) suspension 64 unit subcut BIDM allopurinol 100 mg Tablet 100 mg PO BID Rx Instructions: TAKES AT 0600 & 1800 ropinirole 1 mg Tablet 1 mg PO QID Rx Instructions: TAKES AT 0600, 1200, 1800, 2400 pantoprazole 40 mg Tablet,Delayed Release (Dr/Ec) 40 mg PO BID magnesium oxide 400 mg (241.3 mg magnesium) Tablet 400 mg PO AMHS Rx Instructions: TAKES AT 1200 & 2400 baclofen 10 mg tablet See Rx Instructions .ROUTE .COMPLEX Rx Instructions: 5mg three times a day at 0600, 1200, 1800; and then 10mg at HS (00:00midnight) cyclobenzaprine 10 mg tablet 15 mg PO HS Rx Instructions: TAKE 1 &1/2 TABS AT 2400 hyoscyamine sulfate 0.125 mg tablet 0.125 mg PO QPM tizanidine 4 mg tablet 4 mg PO BID Rx Instructions: TAKES AT 1200 & 2400 potassium chloride 10 mEq tablet extended release 10 meq PO BIDM Rx Instructions: take with breakfast and dinner Medical Marijuana See Rx Instructions .ROUTE .COMPLEX Rx Instructions: 7 drops in AM, 10 drops in PM methenamine hippurate 1 gram Tablet 1 g PO BID 30 Days Qty: 60 2RF Rx Instructions: TAKES AT 1200 & 2400 famotidine [Acid Tube Making Machine Operator (famotidine)] 20 mg Tablet 20 mg PO BID ascorbic acid (vitamin C) [Vitamin C] 500 mg Tablet 250 mg PO TID Rx Instructions: TAKES AT 0600, 1200 & 1800 Lactobacillus acidoph-L.bulgar [Floranex] 1 million cell Tablet 1 tab PO BID nystatin 100,000 unit/gram Powder 1 applic TOPICAL BID PRN (Reason: Rash) Novolin R Regular U-100 Insuln 100 unit/mL Solution See Rx Instructions .ROUTE .COMPLEX Rx Instructions: follow SSI ;TAKES 4 UNITS BEFORE MEALS IF NEEDED. menthol-zinc oxide [Calmoseptine] 0.44-20.6 % Ointment 1 applic TOPICAL QID PRN (Reason: Rash) docusate sodium 100 mg Capsule 100 mg PO AMHS metformin 1,000 mg tablet 1,000 mg PO BIDM levothyroxine 25 mcg tablet 25 mcg PO DAILYBB levetiracetam 500 mg tablet 500 mg PO AMHS ketoconazole 2 % shampoo 1 applic TOPICAL 2XWK Rx Instructions: wash scalp spironolactone 25 mg Tablet 25 mg PO QAM nystatin-triamcinolone 100,000-0.1 unit/g-% cream 1 applic TOPICAL BID Rx Instructions: apply to affected area multivitamin [Daily-Steve] Tablet 1 tab PO DAILY tacrolimus 0.1 % Ointment 1 applic TOPICAL BID PRN (Reason: as directed) Rx Instructions: apply to face,ears and scalp as needed warfarin 7.5 mg Tablet 7.5 mg PO 3XWK Rx Instructions: SUN/TUES/THUS furosemide 40 mg Tablet 40 mg PO BID17 gabapentin 600 mg Tablet 600 mg PO BID Held atorvastatin 40 mg tablet 40 mg PO HS Hold Instructions: Resume on 02/24/23. Discharge Orders: Discharge Order (Routine); Ordered 02/19/23 Ordered By: Moisés Frazier/Other Patient Handouts: Nutrition for Wound Healing, Managing Type 2 Diabetes Admission Data Admit Date/Time: 02/09/23 17:06 Attending Provider: Moisés Lazcano Admit Provider: Rc Juarez Primary Care Provider: Wilder Stanford Other Providers: Rc Juarez ; Artemio Srivastava ; Dereck Mejia ; Ellen Garcia ; Roque Mcgovern I. ; Casey Bell II ; Yeny Leary ; Amaury Jenkins ; Artemio Boyd ; Nya West
[2023-02-19 15:17] VITALS: PULSE 80; TEMP 98.2; O2SAT 91
[2023-02-19] MEDS: WARFARIN SOD 5 MG TAB PO SCH (17:10)
[2023-02-19 18:28] VITALS: BP 95/61
--- NOTE | 2023-02-21 08:19 | Coding Query ---
DEBRIDEMENT DOCUMENTATION To promote full compliance with coding requirements relating to patient care, physician participation is requested in all cases of fortune teller uncertainty. Please assist us with the question(s) below: Please place an X in the parenthesis (x). If other, please document the finding: * Debridement sacral pressure ulcer * Type of Debridement: (x ) Excisional Debridement- Cutting away necrotic, devitalized tissue or slough to the level of viable tissue using a sharp instrument (i.e. scalpel, scissors, etc.) ( ) Non Excisional Debridement- The removal of necrotic, devitalized tissue or slough by means of scraping, mechanical brushing, flushing, or washing (i.e. irrigation,whirlpool);minor removal of loose fragments. ( ) Other (please specify): Instrument Used: ( ) Scissors (x) Scalpel ( ) Curette ( ) Other (please specify): Depth of Debridement: ( ) Skin ( ) Skin and Subcutaneous Tissue ( ) Skin, Subcutaneous Tissue and Muscle (x ) Skin, Subcutaneous Tissue, Muscle and Bone ( ) Other (please specify): Please Specify the Size of Debridement in cm2: Thank you JULIETA Monte CCS
== END 2023-02-19 19:06 | disposition home health service (06) | DRG 853 ==
LOC: ED 13:13 → 2E 17:06 → SUATTDRO 17:06 → 2E 20:47

== ENCOUNTER 2023-02-23 09:33 | Inpatient (IN) ==
[2023-02-23] MEDS ORDERED: SODIUM CHLORIDE 0.9% 1000ML 1,000 ML IV ONE (09:42)
--- NOTE | 2023-02-23 09:46 | Emergency Department Note ---
Impression & Plan Weakness, Osteomyelitis, Diarrhea, Leukocytosis ED Provider Note NAME: ANTWAN GONSALES JR AGE: 62 SEX: M : 1960 ARRIVES VIA: Ambulance INFORMANT: Patient ED PROVIDER(S): Bob Samson DO CHIEF COMPLAINT: abdominal pain and diarrhea HPI: Patient is a 62-year-old male with a past medical history paraplegia of lower extremities on long-term anticoagulation who presents to the ER for liquid stools from the rectum. He has a known suprapubic catheter. He notes he said 3 stool outputs from his rectum. He has an ostomy and notes normally nothing comes out the rectum. Denies any headache or change in vision. No chest pain or shortness of breath. No dysuria, urgency, or frequency. No other exacerbating or remitting factors. He does live at home with his . His notes that he has been more confused over the past several days since Wednesday. She stopped giving him his Keppra and baclofen in hopes that this would improve. She does believe that the confusion improved today just slightly. He is also been hallucinating which is new as he has not had this before. PAST MEDICAL HISTORY:See Below PAST SURGICAL HISTORY:See Below FAMILY HISTORY:See Below SOCIAL HISTORY:See Below HOME MEDICATIONS:See Below ALLERGIES:See Below VITALS:See Below PHYSICAL EXAMINATION: GENERAL: Sitting up in bed, alert, well appearing, well nourished, no distress, non-toxic EYE EXAM: normal conjunctiva. OROPHARYNX: mucous membranes are moist LUNGS: Clear to auscultation. Normal chest wall mechanics HEART: no murmurs, S1 normal and S2 normal ABDOMEN: abdomen soft, non-tender, normo-active bowel sounds, no masses, no rebound or guarding. BACK: Back is symmetrical on inspection and there is no deformity, no midline tenderness, no CVA tenderness. Large wound just above the rectum measuring about 8 cm x 8 cm with some granulation tissue. No drainage or discharge. Brown liquid stool around the rectum. UPPER EXTREMITIES: upper extremities are grossly normal. LOWER EXTREMITIES: No pitting edema. NEURO EXAM: Normal sensorium, cranial nerves II-XII grossly intact, normal speech, no gross weakness of arms, no gross weakness of legs. MEDICAL DECISION MAKING: Patient is a 62-year-old male who presents ER for above-stated complaint. IV was established blood work was obtained. External records were reviewed. Labs show mild leukocytosis of 14,000. Mild anemia 10. BMP with a mild hyponatremia at 134. LFTs bilirubin was unremarkable. Lipase was normal. UA was contaminated with multiple epithelial cells. CT abdomen pelvis showed osteomyelitis which consistent with previous. Patient was given IV fluids vancomycin and Rocephin. He was updated bedside. Discussed with the hospitalist for further evaluation management treatment Dr. Evans. Triage Nursing notes reviewed. Limited review of prior medical records performed Vital Signs: reviewed and remarkable for no significant abnormalities Differential diagnosis: Differential diagnoses includes but is not limited to gastritis, peptic ulcer disease, GERD, gallbladder disease, pancreatitis, small bowel obstruction, appendicitis, diverticulitis, hernia, urinary tract infection, torsion, /ectopic (if female), perforation, trauma, infectious. ER treatment provided: See below Diagnostics interpreted by me include EKG and cardiac monitoring as listed below: -Cardiac Monitoring: An order was placed for continuous cardiac monitoring. The monitor shows a rate of 101 with sinus rhythm. -ECG: none -Laboratory studies:Interpreted by me as stated above in MDM and shown below. Imaging studies: Xrays: As interpreted by me:none CTs show: CT abdomen pelvis shows no bowel obstruction per my read CT abdomen pelvis as described above radiology shows osteomyelitis which is con sistent with recent CT Consultation(s): As described in MDM Procedures:none Critical Care: None Past Med/Surg History Medical History (Updated 02/23/23 @ 13:44 by Bob Samson DO) Anemia Asymptomatic bacteriuria Clostridium difficile infection (Unknown) CVA (cerebral vascular accident) DM type 2 (diabetes mellitus, type 2) Dyslipidemia Dysphagia Elevated lactic acid level Fever History of blood clots History of DVT (deep vein thrombosis) Hypertension Hypotension Ileus Kidney disease Lethargy Leukocytosis Major depressive disorder, recurrent Morbid obesity Obesity Occluded PICC line Positive urine culture Quadriplegia BRAIN INJURY 11 YRS AGO Quadriplegia Sacral decubitus ulcer, stage IV Sacral wound Seizure Seizure-like activity Sepsis SIRS (systemic inflammatory response syndrome) Sleep apnea (Unknown) OXYGEN 2L/MIN NC HS Syncope 57 year old with know quadriplegia and new onset syncope with change in position UTI (urinary tract infection) RECENT [facility] ADMISION-D/C 12/06/20 Weakness Surgical History (Updated 02/12/23 @ 12:07 by Kristen Morataya RN) Chronic suprapubic catheter History of colonoscopy 2010 History of open reduction and internal fixation (ORIF) procedure LEFT FEMUR Insertion of inferior vena caval filter (Unknown) Lithotripsy (Unknown) "laser lithotripsy left ureteral stone 03/17/11 " S/P debridement (09/06/21) Incision and Drainage and Debridement Sacral Tissue Down to Bone, 15cm x 11cm - Agusto Chaudhry, DO 09/06/21 S/P debridement (09/08/21) Excisional Debridement of Sacral Decubitus Ulcer, [id number] Down to Bone - Agusto Chaudhry, DO 09/08/2021. Patient made ASA 4. Ketamine/versed/fentanyl sedation. Tolerated without incident. S/P debridement S/P debridement (02/11/23) Debridement of sacral ulcer. Dr. Srivastava S/P knee surgery S/P tonsillectomy Suprapubic cystostomy (Unknown) IN PLACE Family History Mother , age 47 of cervical cancer Family history of diabetes mellitus Cervical cancer Father , age 85 of heart disease Family hx of colon cancer Heart disease Other No pertinent family history Social History (Updated 02/10/23 @ 09:40 by Jayro Dominique MD) Smoking Status: Never smoker Second Hand Exposure: No; Do You Dip or Chew Tobacco: No; Hx Alcohol Use: No Hx Substance Use: Yes Non-Prescribed Medications: Marijuana Last Used Substance: Days (ago) Substance Use Type Other:: medical marijuana Preferred Language: Japanese Communication Ability: Effective Visual Impairment: No Limitations Hop Grower Required: No Beliefs That Will Affect Care: None marital status: Current Living Situation: Spouse Current Living Situation Comment: Lives with - has care nurse 5x/week, 29/03 caregivers current occupational status: disabled 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 Feels Safe at Home: Yes Physical Activity Frequency Comment: QUADRAPLEGIA C4-5-ABLE TO MOVE ARMS, HANDS Assistive Devices: Hospital Bed, Mechanical Lift, Oxygen - at Night and Other Allergies Allergies Allergy/AdvReac Type Severity Reaction Status Date / Time codeine Allergy Severe THROAT Verified 05/22/22 18:39 SWELLS latex Allergy Intermediate Hives Verified 05/22/22 18:39 piperacillin Allergy Intermediate Hives Verified 05/22/22 18:39 Sulfa (Sulfonamide Allergy Intermediate HIVES Verified 05/22/22 18:39 Antibiotics) tazobactam Allergy Intermediate Hives Verified 05/22/22 18:39 aztreonam Allergy Unknown unknown Verified 05/22/22 18:39 metoclopramide [From Reglan] AdvReac Intermediate lethargy Verified 05/22/22 18:39 Home Meds Home Medications Medication Instructions Recorded Confirmed allopurinol 100 mg tablet 100 mg PO BID 05/07/18 02/09/23 magnesium oxide 400 mg (241.3 mg 400 mg PO AMHS 05/07/18 02/09/23 magnesium) tablet pantoprazole 40 mg tablet,delayed 40 mg PO BID 05/07/18 02/09/23 release ropinirole 1 mg tablet 1 mg PO QID 05/07/18 02/09/23 escitalopram oxalate 20 mg tablet 20 mg PO QAM 08/21/19 02/09/23 insulin human U-100 NPH-regulr 64 unit subcut BIDM 08/21/19 02/09/23 70-30 mix 100 unit/mL subcutaneous susp (Novolin 70/30 U-100 Insulin) warfarin 5 mg tablet 5 mg PO 4XWK 08/21/19 02/09/23 baclofen 10 mg tablet See Rx Instructions .Route .COMPLEX 09/22/19 02/09/23 cyclobenzaprine 10 mg tablet 15 mg PO HS 03/01/20 02/09/23 hyoscyamine sulfate 0.125 mg tablet 0.125 mg PO QPM 03/01/20 02/09/23 potassium chloride 10 mEq 10 meq PO BIDM 03/01/20 02/09/23 tablet,extended release tizanidine 4 mg tablet 4 mg PO BID 03/01/20 02/09/23 Medical Marijuana See Rx Instructions .Route .COMPLEX 03/26/20 02/09/23 ascorbic acid (vitamin C) 500 mg 250 mg PO TID 12/03/20 02/09/23 tablet (Vitamin C) famotidine 20 mg tablet (Acid 20 mg PO BID 12/03/20 02/09/23 Methods Study Analyst (famotidine)) Lactobacillus acidoph-L.bulgaricus 1 tab PO BID 01/03/21 02/09/23 1 million cell tablet (Floranex) insulin regular human 100 unit/mL See Rx Instructions .Route .COMPLEX 01/03/21 02/09/23 injection solution (Novolin R Regular U-100 Insulin) menthol 0.44 %-zinc oxide 20.6 % 1 applic topical QID PRN Rash 01/03/21 02/09/23 topical ointment (Calmoseptine) nystatin 100,000 unit/gram topical 1 applic topical BID PRN Rash 01/03/21 02/09/23 powder metformin 1,000 mg tablet 1,000 mg PO BIDM 06/14/21 02/09/23 atorvastatin 40 mg tablet 40 mg PO HS 12/31/21 02/09/23 docusate sodium 100 mg capsule 100 mg PO AMHS 12/31/21 02/09/23 levothyroxine 25 mcg tablet 25 mcg PO DAILYBB 02/12/22 02/09/23 ketoconazole 2 % shampoo 1 applic topical 2XWK 05/22/22 02/09/23 levetiracetam 500 mg tablet 500 mg PO AMHS 05/22/22 02/09/23 multivitamin (Daily-Steve tablet) 1 tab PO DAILY 05/22/22 02/09/23 nystatin-triamcinolone 100,000 1 applic topical BID 05/22/22 02/09/23 unit/g-0.1 % topical cream spironolactone 25 mg tablet 25 mg PO QAM 05/22/22 02/09/23 tacrolimus 0.1 % topical ointment 1 applic topical BID PRN as 05/22/22 02/09/23 directed furosemide 40 mg tablet 40 mg PO BID17 02/09/23 02/09/23 gabapentin 600 mg tablet 600 mg PO BID 02/09/23 02/09/23 warfarin 7.5 mg tablet 7.5 mg PO 3XWK 02/09/23 02/09/23 Previous Rx's Medication Instructions Recorded methenamine hippurate 1 gram tablet 1 g PO BID 30 days #60 tabs 04/02/20 cefepime 2 gram solution for 2 g IV Q8H #35 ea 02/19/23 injection divalproex 500 mg tablet,delayed 500 mg PO BID #60 tabs 02/19/23 release metoprolol tartrate 25 mg tablet 12.5 mg PO QAM #15 tabs 02/19/23 Results & Data (ED) Vital Signs Vital Signs - 24 hr 02/23/23 09:53 02/23/23 09:32 02/23/23 10:05 Temperature 36.9 C Temperature Source Oral Pulse Rate 97 H 102 H Pulse Rate [Right Finger] 94 H Respiratory Rate 16 20 Respiratory Effort / Characteristics Non-Labored Non-Labored Respiratory Depth Normal Normal Blood Pressure 95/53 L Blood Pressure [Left Arm] 125/73 Blood Pressure Mean 67 Blood Pressure Mean [Left Arm] 90 Pulse Oximetry 94 94 Oxygen Delivery Method Room Air Room Air Sepsis Recent Fever Within 48 Hours No Sepsis New/Unexplained Change in Mental Status N/A Sepsis Action Taken by Nursing No Action Required 02/23/23 10:05 02/23/23 12:44 Temperature Temperature Source Pulse Rate Pulse Rate [Right Finger] 109 H Respiratory Rate 20 Respiratory Effort / Characteristics Non-Labored Respiratory Depth Normal Blood Pressure Blood Pressure [Left Arm] 100/73 Blood Pressure Mean Blood Pressure Mean [Left Arm] 82 Pulse Oximetry 92 Oxygen Delivery Method Room Air Room Air Sepsis Recent Fever Within 48 Hours Sepsis New/Unexplained Change in Mental Status Sepsis Action Taken by Nursing Laboratory Data 02/23/23 09:42 02/23/23 09:42 Lab Results 02/23/23 02/23/23 02/23/23 Range/Units 09:42 09:42 Unknown WBC 14.37 H (4.8-10.8) K/ul RBC 3.72 L (4.70-6.10) M/uL Hgb 10.7 L (14.0-18.0) g/dl Hct 33.4 L (42.0-52.0) % MCV 89.8 (80.0-100.0) fL MCH 28.8 (25.0-34.0) pg MCHC 32.0 (32.0-36.0) g/dL RDW Std Deviation 66.6 H (36.4-46.3) fL RDW Coeff of Yoseph 20.4 H (11.5-14.5) % Plt Count 279 (130-400) K/uL MPV 9.1 L (9.4-12.4) fL Immature Gran % (Auto) 1.4 % Neut % (Auto) 67.5 % Lymph % (Auto) 19.9 % [place] % (Auto) 8.4 % Eos % (Auto) 2.2 % Baso % (Auto) 0.6 % Neut # (Auto) 9.70 H (1.40-6.50) K/uL Lymph # (Auto) 2.86 (1.2-3.4) K/uL [place] # (Auto) 1.21 H (0.11-0.59) K/uL Eos # (Auto) 0.32 (0-0.50) K/uL Baso # (Auto) 0.08 (0-0.2) K/uL Immature Gran # (Auto) 0.20 (0.01-0.20) K/uL Polychromasia 1+ Anisocytosis Present Sodium 134 L (136-145) mmol/L Potassium 4.0 (3.5-5.1) mmol/L Chloride 92 L (98-107) mmol/L Carbon Dioxide 38 H (21-32) mmol/L Anion Gap 4 (3-11) BUN 24 H (6-23) mg/dl Creatinine 1.02 (0.6-1.4) mg/dl Est Cr Clr Drug Dosing 108.6 ml/min Est GFR ( Amer) 90.2 ml/min Est GFR (Non-Af Amer) 77.9 ml/min BUN/Creatinine Ratio 23.5 H (10-20) Glucose 132 H (70-99(Fasting)) mg/dl Calcium 9.1 (8.6-10.3) mg/dl Total Bilirubin 0.4 (0.2-1.0) mg/dl AST 11 L (13-39) U/L ALT 8 (7-52) U/L Alkaline Phosphatase 47 (34-104) U/L Total Protein 7.5 (6.0-8.3) gm/dl Albumin 3.1 L (3.4-5.0) gm/dl Globulin 4.4 H (2.5-4.0) gm/dl Albumin/Globulin Ratio 0.7 L (0.9-2) Lipase 5 L (11-82) U/L Urine Color Yellow Urine Appearance Clear (Clear) Urine pH 6.5 (4.5-7.5) Ur Specific [place] 1.009 (1.000-1.030) Urine Protein 1+ H (Negative) Urine Glucose (UA) Negative (Negative) Urine Ketones Negative (Negative) Urine Blood 1+ H (Negative) Urine Nitrite Negative (Negative) Urine Bilirubin Negative (Negative) Urine Urobilinogen Negative (Negative) Ur Leukocyte Esterase 2+ H (Negative) Urine WBC (Auto) >30 H (0-5) /hpf Urine RBC (Auto) 0-4 (0-4) /hpf U Hyaline Cast (Auto) 5-10 H (0-5) /lpf U Epithel Cells (Auto) >30 H (0-5) /lpf Urine Bacteria (Auto) Negative (Negative) Ur Renal Epithelial Cell Not Reportable Urine Yeast Not Reportable Administered Medications Discontinued Medications Sodium Chloride (Nss 1000ml) 1,000 mls @ 999 mls/hr IV .Q1H1M ONE Stop: 02/23/23 10:42 Last Infusion: 02/23/23 11:03 Dose: 0 mls/hr Documented By: Admin: 02/23/23 10:01 Dose: 999 mls/hr Documented By: IVÁN Ioversol (Optiray 320 125ml) 120 ml IV ONCE ONE Stop: 02/23/23 11:55 Last Admin: 02/23/23 11:55 Dose: 120 ml Documented By: KENISHA Imaging Data Radiologist's Impression: Abdomen/Pelvis CT 02/23/23 09:42 CT OF THE ABDOMEN AND PELVIS WITH CONTRAST CLINICAL HISTORY: Postoperative abdominal pain. COMPARISON STUDY: CT of the abdomen and pelvis February 09, 2023. TECHNIQUE: Following IV administration of 120 mL of Optiray, axial images of the abdomen and pelvis were obtained from the lung bases to the proximal femurs. Images were reviewed in the axial, sagittal, and coronal planes. IV contrast was administered without complication. Automated exposure control was utilized for the study. A dose lowering technique was utilized adhering to the principles of ALARA. CT DOSE: 4146.29 mGy.cm FINDINGS: Lung bases are unremarkable. No pneumatosis, free air or portal venous gas is present. The liver, spleen, adrenal glands, left kidney and pancreas are unremarkable. There is no biliary or pancreatic ductal dilatation. A right adrenal nodule remains unchanged. This is likely benign. There is a 6 mm right renal calculus. No ureteral calculi are present. No hydronephrosis or hydroureter. Suprapubic catheter is in place. A descending colostomy is noted. There is no evidence for a bowel obstruction. A moderate amount of stool within the colon and rectum is noted. Prominent retroperitoneal lymph nodes remain unchanged. These are likely benign. A sacral decubitus ulcer is again noted. The defect has slightly decreased in size since CT of February 09, 2023. Associated soft tissue thickening suggestive of cellulitis and phlegmon is noted at the level of the ulcer. A few locules of soft tissue gas are present. No drainable fluid collection. Erosion of the coccyx and inferior sacrum is unchanged since CT of February 09, 2023. However, findings have increased since CT of May 23, 2022. A left gluteal ulcer is again noted with chronic erosion of the left ischial tube rosity. The appearance of the left ischial tuberosity is unchanged from earlier exams. IVC filters in place. IMPRESSION: 1. No evidence for a bowel obstruction status post descending colostomy. Moderate amount of stool within the colon and rectum. 2. Redemonstration of a sacral decubitus ulcer with associated soft tissue thickening and a small amount of soft tissue gas suggestive of cellulitis and phlegmon. No drainable fluid collection to suggest abscess. Erosion of the coccyx and sacrum, similar to CT of February 09, [address] of December 31, 2021. This represents acute to subacute osteomyelitis of the lower sacrum. 3. Redemonstration of a left gluteal ulcer with chronic erosion of the left ischial tuberosity. No evidence for acute osteomyelitis at this site. 4. Right nephrolithiasis. No ureteral calculi. No hydronephrosis. ACT 112: Negative or not required by law. Electronically signed by: Sami Jacobson M.D. 02/23/2023 12:37 PM Discharge Plan Visit Data Chief Complaint: Diarrhea Stated Complaint: DIARRHEA ED Provider: Bob Samson Discharge Problem: Weakness, Osteomyelitis, Diarrhea, Leukocytosis Forms Stand Alone Forms: My [facility] Prescriptions Prescriptions: No Action warfarin 5 mg tablet 5 mg PO 4XWK Rx Instructions: MON/WED/FRI/SAT escitalopram oxalate 20 mg tablet 20 mg PO QAM Novolin 70/30 U-100 Insulin 100 unit/mL (70-30) suspension 64 unit subcut BIDM allopurinol 100 mg Tablet 100 mg PO BID Rx Instructions: TAKES AT 0600 & 1800 ropinirole 1 mg Tablet 1 mg PO QID Rx Instructions: TAKES AT 0600, 1200, 1800, 2400 pantoprazole 40 mg Tablet,Delayed Release (Dr/Ec) 40 mg PO BID magnesium oxide 400 mg (241.3 mg magnesium) Tablet 400 mg PO AMHS Rx Instructions: TAKES AT 1200 & 2400 baclofen 10 mg tablet See Rx Instructions .ROUTE .COMPLEX Rx Instructions: 5mg three times a day at 0600, 1200, 1800; and then 10mg at HS (00:00midnight) cyclobenzaprine 10 mg tablet 15 mg PO HS Rx Instructions: TAKE 1 &1/2 TABS AT 2400 hyoscyamine sulfate 0.125 mg tablet 0.125 mg PO QPM tizanidine 4 mg tablet 4 mg PO BID Rx Instructions: TAKES AT 1200 & 2400 potassium chloride 10 mEq tablet extended release 10 meq PO BIDM Rx Instructions: take with breakfast and dinner Medical Marijuana See Rx Instructions .ROUTE .COMPLEX Rx Instructions: 7 drops in AM, 10 drops in PM methenamine hippurate 1 gram Tablet 1 g PO BID 30 Days Qty: 60 2RF Rx Instructions: TAKES AT 1200 & 2400 famotidine [Acid Methods Study Analyst (famotidine)] 20 mg Tablet 20 mg PO BID ascorbic acid (vitamin C) [Vitamin C] 500 mg Tablet 250 mg PO TID Rx Instructions: TAKES AT 0600, 1200 & 1800 Lactobacillus acidoph-L.bulgar [Floranex] 1 million cell Tablet 1 tab PO BID nystatin 100,000 unit/gram Powder 1 applic TOPICAL BID PRN (Reason: Rash) Novolin R Regular U-100 Insuln 100 unit/mL Solution See Rx Instructions .ROUTE .COMPLEX Rx Instructions: follow SSI ;TAKES 4 UNITS BEFORE MEALS IF NEEDED. menthol-zinc oxide [Calmoseptine] 0.44-20.6 % Ointment 1 applic TOPICAL QID PRN (Reason: Rash) atorvastatin 40 mg tablet 40 mg PO HS Hold Instructions: Resume on 02/24/23. docusate sodium 100 mg Capsule 100 mg PO AMHS metformin 1,000 mg tablet 1,000 mg PO BIDM levothyroxine 25 mcg tablet 25 mcg PO DAILYBB levetiracetam 500 mg tablet 500 mg PO AMHS ketoconazole 2 % shampoo 1 applic TOPICAL 2XWK Rx Instructions: wash scalp spironolactone 25 mg Tablet 25 mg PO QAM nystatin-triamcinolone 100,000-0.1 unit/g-% cream 1 applic TOPICAL BID Rx Instructions: apply to affected area multivitamin [Daily-Steve] Tablet 1 tab PO DAILY tacrolimus 0.1 % Ointment 1 applic TOPICAL BID PRN (Reason: as directed) Rx Instructions: apply to face,ears and scalp as needed warfarin 7.5 mg Tablet 7.5 mg PO 3XWK Rx Instructions: SUN/TUES/THUS furosemide 40 mg Tablet 40 mg PO BID17 gabapentin 600 mg Tablet 600 mg PO BID metoprolol tartrate 25 mg Tablet 12.5 mg PO QAM Qty: 15 0RF divalproex 500 mg Tablet,Delayed Release (Dr/Ec) 500 mg PO BID Qty: 60 0RF cefepime 2 gram recon soln 2 g IV Q8H Qty: 35 0RF Rx Instructions: total 6 weeks therapy Referrals Referrals: Wilder Stanford MD [Primary Care Provider] -
[2023-02-23 10:52] LABS: Appearance Urine Clear (Clear); Bacteria Urine Automated Negative (Negative); Bilirubin Urine Negative (Negative); Blood Urine 1+ (Negative); Color Urine Yellow; Epithelial Cell Urine Auto >30 /lpf (0-5); Glucose Urine UA Negative (Negative); Ketones Urine Negative (Negative); Leukocyte Esterase Urine 2+ (Negative); Nitrite Urine Negative (Negative); Protein Urine 1+ (Negative); RBC Urine Automated 0-4 /hpf (0-4); Specific Gravity Urine 1.009 (1.000-1.030); Urobilinogen Urine Negative (Negative); WBC Urine Automated >30 /hpf (0-5); pH Urine 6.5 (4.5-7.5)
[2023-02-23 11:14] LABS: Basophils # (auto) 0.08 K/uL (0-0.2); Basophils % (auto) 0.6 %; Eosinophils # (auto) 0.32 K/uL (0-0.50); Eosinophils % (auto) 2.2 %; Hematocrit (blood only) 33.4 % (42.0-52.0); Hemoglobin 10.7 g/dl (14.0-18.0); Immature Granulocytes % (auto) 1.4 %; Lymphocytes # (auto) 2.86 K/uL (1.2-3.4); Lymphocytes % (auto) 19.9 %; Mean Corpuscular Hemoglobin 28.8 pg (25.0-34.0); Mean Corpuscular Volume 89.8 fL (80.0-100.0); Mean Platelet Volume 9.1 fL (9.4-12.4); Monocytes # (auto) 1.21 K/uL (0.11-0.59); Monocytes % (auto) 8.4 %; Neutrophils % (auto) 67.5 %; Platelet Count 279 K/uL (130-400); RDW Coefficient of Variation 20.4 % (11.5-14.5); RDW Standard Deviation 66.6 fL (36.4-46.3); Red Blood Count 3.72 M/uL (4.70-6.10); White Blood Count 14.37 K/ul (4.8-10.8)
[2023-02-23 11:28] LABS: Albumin Globulin Ratio 0.7 (0.9-2); Albumin Level 3.1 gm/dl (3.4-5.0); BUN Creatinine Ratio 23.5 (10-20); Bilirubin,Total 0.4 mg/dl (0.2-1.0); Calcium 9.1 mg/dl (8.6-10.3); Creatinine Clr Calc Pharmacy 108.6 ml/min; Est GFR (African American) 90.2 ml/min; Est GFR (Non-African American) 77.9 ml/min; Globulin 4.4 gm/dl (2.5-4.0); Total Protein 7.5 gm/dl (6.0-8.3)
[2023-02-23 11:34] LABS: Anisocytosis Present; Polychromasia 1+
[2023-02-23] MEDS ORDERED: OPTIRAY 320 125ml IV ONE (11:54)
--- NOTE | 2023-02-23 12:39 | CT Scan Report ---
CT OF THE ABDOMEN AND PELVIS WITH CONTRAST CLINICAL HISTORY: Postoperative abdominal pain. COMPARISON STUDY: CT of the abdomen and pelvis February 09, 2023. TECHNIQUE: Following IV administration of 120 mL of Optiray, axial images of the abdomen and pelvis w ere obtained from the lung bases to the proximal femurs. Images were reviewed in the axial, sagittal, and coronal planes. IV contrast was administered without complication. Automated exposure control w as utilized for the study. A dose lowering technique was utilized adhering to the principles of MAHI Bryson. CT DOSE: 4146.29 mGy.cm FINDINGS: Lung bases are unremarkable. No pneumatosis, free air or portal venous gas is present. The liver, spleen, adrenal glands, left kidney and pancreas are unremarkable. There is no biliary or panc reatic ductal dilatation. A right adrenal nodule remains unchanged. This is likely benign. There is a 6 mm right renal calculus. No ureteral calculi are present. No hydronephrosis or hydroureter. Suprap ubic catheter is in place. A descending colostomy is noted. There is no evidence for a bowel obstruct ion. A moderate amount of stool within the colon and rectum is noted. Prominent retroperitoneal lymph nodes remain unchanged. These are likely benign. A sacral decubitus ulcer is again noted. The defect has slightly decreased in size since CT of February 09, 2023. Associated soft tissue thickening suggestiv e of cellulitis and phlegmon is noted at the level of the ulcer. A few locules of soft tissue gas are present. No drainable fluid collection. Erosion of the coccyx and inferior sacrum is unchanged since CT of February 09, 2023. However, findings have increased since CT of May 23, 2022. A left gluteal ulcer is again noted with chronic erosion of the left ischial tuberosity. The appearance of the left ischial tuberosity is unchanged from earlier exams. IVC filters in place. IMPRESSION: 1. No evidence for a bowel obstruction status post descending colostomy. Moderate amount of stool wit hin the colon and rectum. 2. Redemonstration of a sacral decubitus ulcer with associated soft tissue thickening and a small arvind unt of soft tissue gas suggestive of cellulitis and phlegmon. No drainable fluid collection to sugges t abscess. Erosion of the coccyx and sacrum, similar to CT of February 09, [address] of December 31, 2021. This represents acute to subacute osteomyelitis of the lower sacrum. 3. Redemonstration of a left gluteal ulcer with chronic erosion of the left ischial tuberosity. No ev idence for acute osteomyelitis at this site. 4. Right nephrolithiasis. No ureteral calculi. No hydronephrosis. ACT 112: Negative or not required by law. Electronically signed by: Sami Jacobson M.D. 02/23/2023 12:37 PM
[2023-02-23] MEDS ORDERED: VANCOMYCIN HCL 2,750 MG in SODIUM CHLORIDE 0.9% 500 ML IV ONE (12:51)
[2023-02-23] MEDS ORDERED: cefTRIAXone SODIUM 2,000 MG/70 ML BAG IV STA (12:51)
[2023-02-23] MEDS ORDERED: VANCOMYCIN CONSULT ACTIVE PRN (12:51)
--- NOTE | 2023-02-23 14:09 | History & Physical Report ---
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: (10) Nocturnal hypoxia: (11) CKD (chronic kidney disease), stage III: (12) Morbid obesity: (13) Neurogenic bladder: Plan This is a 61yo F with a PMH of quadriplegia secondary to traumatic accident years ago, neurogenic bladder with suprapubic catheter, chronic stage IV decubitus ulcer over the past 10 years follows [facility] wound clinic, insulin-dependent T2DM, CKD stage III in setting of diabetic nephropathy, morbid obesity, HTN, seizure disorder, iron deficiency anemia, MGUS followed with hematology, history of VRE, depression, coagulation disorder on chronic Coumadin therapy who presents with diarrhea and more lethargy over the past few days. Noted to have seizure-like activity during previous admission and neurology recommended patient started on Depakote with plans for Keppra to be tapered but patient discontinued Depakote on 02/20 due to increased lethargy (still taking Keppra). Severe Sepsis POA:infected sacral ulcer, leukocytosis and tachycardia. Lactate pending Stage IV decubitus ulcer Left ischial wound Recently admittedfrom 02/09-02/19 for worsening of chronic sacral wound Underwent debridement of sacral ulcer by Dr. Srivastava on 02/11/2023 Follows with [facility] [place] with mention of possibly needing follow-up in a tertiary care for chronic wound in the future Discharged on 6 weeks of IV cefepime with midline in place per ID recommendation, with recommendation for 2-4 wk ID follow-up CT abd/pelvis today with redemonstration of a sacral decubitus ulcer with associated soft tissue thickening and a small amount of soft tissue gas suggestive of cellulitis and phlegmon. No drainable fluid collection to suggest abscess. Erosion of the coccyx and sacrum, similar to CT of February 09, 2023. This represents acute to subacute osteomyelitis of the lower sacrum Continue regimen of IV Cefepime, general surgery, wound care, repositioning Diarrhea Noted 2 episodes of loose stool per rectum the past 2 days, which is unusual for him given colostomy in place to keep wound clean/prevent swelling Stool cultures, c diff pending Continue ostomy care Suprapubic cath 2/2 neurogenic bladder - Martinez in place, history of recurrent UTIs Seizure disorder Seizure like activity noted on previous admission, seen by neuro and started on Depakote 500 mg BID withlevetiracetam to be tapered after trough level of Depakote in 2 weeks after the start date However, patient discontinued discontinued Depakote on 02/20 due to increased lethargy (still taking Keppra) No seizure activity noted today Continue Keppra, routine neuro consult Insulin-dependent T2DM A1c of 6.9 in February 2023 Hold home agents SSI while in-patient BSG AC HS Chronic anticoagulation 2/2 coagulation disorder INR pending, monitor daily and continue with home warfarin dose Chronic quadriplegia 2/2 traumatic accident Continue supportive care DVT prophylaxis: coumadin Dispo: admitting to PCU Code status: FULL Patient seen in collaboration with Dr. Coppola. Please see addendum. I spent a total of 75 minutes coordinating, documenting, and providing care for this patient excluding time spent in the performance of separately billed services. History of Present Illness Chief Complaint: diarrhea Primary Care Provider: Wilder Stanford MD This is a 61yo F with a PMH of quadriplegia secondary to traumatic accident years ago, neurogenic bladder with suprapubic catheter, chronic stage IV decu bitus ulcer over the past 10 years follows [facility] wound clinic, insulin- dependent T2DM, CKD stage III in setting of diabetic nephropathy, morbid obesity, HTN, seizure disorder, iron deficiency anemia, MGUS followed with hematology, history of VRE, depression, coagulation disorder on chronic Coumadin therapy who presents with diarrhea and more lethargy over the past few days. Was recently admittedfrom 02/09-02/19 for sacral wound as well as seizure like activity. Underwent debridement of sacral ulcer by Dr. Srivastava on 02/11/2023. Follows with [facility] [place] surgery with mention of possibly needing follow-up in a tertiary care for chronic wound in the future. Was discharged on 6 weeks of IV cefepime with midline in place per ID recommendation, with recommendation for 2-4 wk ID follow-up. Noted to have seizure-like activity during previous admission and neurology recommended patient started on Depakote with plans for Keppra to be tapered after trough level of Depakote in 2 weeks after start date. However, patient stopped taking Depakote on 02/20 due to feelings of worsening lethargy but is still been taking Keppra. Presented to ED due to second episode of loose stool out of rectum noted this morning. Has an colostomy in place and usually does not have any output from rectum except for a few occurrences over the past few year. Denies any change in output out of ostomy and has formed stool today. Has had c diff infections in the past. Feels mentation has improved since discontinuation of Depakote. No fever, chills, headache, CP, SOB, N/V, abdominal pain. Martinez catheter in place. Is able to complete washing of upper body and feeling himself. Allergies Allergy/AdvReac Type Severity Reaction Status Date / Time codeine Allergy Severe THROAT Verified 02/23/23 14:12 SWELLS latex Allergy Intermediate Hives Verified 02/23/23 14:12 piperacillin Allergy Intermediate Hives Verified 02/23/23 14:12 Sulfa (Sulfonamide Allergy Intermediate HIVES Verified 02/23/23 14:12 Antibiotics) tazobactam Allergy Intermediate Hives Verified 02/23/23 14:12 aztreonam Allergy Unknown unknown Verified 02/23/23 14:12 metoclopramide [From Reglan] AdvReac Intermediate lethargy Verified 02/23/23 14:12 Home Medications Medication Instructions Recorded Confirmed Type allopurinol 100 mg tablet 100 mg PO BID 05/07/18 02/23/23 History magnesium oxide 400 mg (241.3 mg 400 mg PO AMHS 05/07/18 02/23/23 History magnesium) tablet pantoprazole 40 mg tablet,delayed 40 mg PO BID 05/07/18 02/23/23 History release ropinirole 1 mg tablet 1 mg PO QID 05/07/18 02/23/23 History escitalopram oxalate 20 mg tablet 20 mg PO QAM 08/21/19 02/23/23 History insulin human U-100 NPH-regulr 64 unit subcut BIDM 08/21/19 02/23/23 History 70-30 mix 100 unit/mL subcutaneous susp (Novolin 70/30 U-100 Insulin) warfarin 5 mg tablet 5 mg PO 4XWK 08/21/19 02/23/23 History baclofen 10 mg tablet See Rx Instructions .Route .COMPLEX 09/22/19 02/23/23 History cyclobenzaprine 10 mg tablet 15 mg PO HS 03/01/20 02/23/23 History hyoscyamine sulfate 0.125 mg tablet 0.125 mg PO QPM 03/01/20 02/23/23 History potassium chloride 10 mEq 10 meq PO BIDM 03/01/20 02/23/23 History tablet,extended release tizanidine 4 mg tablet 4 mg PO BID 03/01/20 02/23/23 History Medical Marijuana 6 drp PO PM 03/26/20 02/23/23 History methenamine hippurate 1 gram tablet 1 g PO BID 30 days #60 tabs 04/02/20 02/23/23 Rx ascorbic acid (vitamin C) 500 mg 250 mg PO TID 12/03/20 02/23/23 History tablet (Vitamin C) famotidine 20 mg tablet (Acid 20 mg PO BID 12/03/20 02/23/23 History Director [employer] (famotidine)) Lactobacillus acidoph-L.bulgaricus 1 tab PO BID 01/03/21 02/23/23 History 1 million cell tablet (Floranex) insulin regular human 100 unit/mL See Rx Instructions .Route .COMPLEX 01/03/21 02/23/23 History injection solution (Novolin R Regular U-100 Insulin) menthol 0.44 %-zinc oxide 20.6 % 1 applic topical QID PRN Rash 01/03/21 02/23/23 History topical ointment (Calmoseptine) nystatin 100,000 unit/gram topical 1 applic topical BID 01/03/21 02/23/23 History powder metformin 1,000 mg tablet 1,000 mg PO BIDM 06/14/21 02/23/23 History atorvastatin 40 mg tablet 40 mg PO HS 12/31/21 02/23/23 History docusate sodium 100 mg capsule 100 mg PO AMHS 12/31/21 02/23/23 History levothyroxine 25 mcg tablet 25 mcg PO DAILYBB 02/12/22 02/23/23 History ketoconazole 2 % shampoo 1 applic topical 2XWK 05/22/22 02/23/23 History levetiracetam 500 mg tablet 500 mg PO AMHS 05/22/22 02/23/23 History multivitamin (Daily-Steve tablet) 1 tab PO DAILY 05/22/22 02/23/23 History nystatin-triamcinolone 100,000 1 applic topical BID PRN Rash 05/22/22 02/23/23 History unit/g-0.1 % topical cream spironolactone 25 mg tablet 25 mg PO QAM 05/22/22 02/23/23 History tacrolimus 0.1 % topical ointment 1 applic topical BID 05/22/22 02/23/23 History furosemide 40 mg tablet 40 mg PO BID17 02/09/23 02/23/23 History gabapentin 600 mg tablet 600 mg PO BID 02/09/23 02/23/23 History warfarin 7.5 mg tablet 7.5 mg PO 3XWK 02/09/23 02/23/23 History cefepime 2 gram solution for 2 g IV Q8H #35 ea 02/19/23 02/23/23 Rx injection metoprolol tartrate 25 mg tablet 12.5 mg PO QAM #15 tabs 02/19/23 02/23/23 Rx Past Med/Surg History Medical History Anemia Asymptomatic bacteriuria Clostridium difficile infection (Unknown) CVA (cerebral vascular accident) DM type 2 (diabetes mellitus, type 2) Dyslipidemia Dysphagia Elevated lactic acid level Fever History of blood clots History of DVT (deep vein thrombosis) Hypertension Hypotension Ileus Kidney disease Lethargy Leukocytosis Major depressive disorder, recurrent Morbid obesity Obesity Occluded PICC line Positive urine culture Quadriplegia BRAIN INJURY 11 YRS AGO Quadriplegia Sacral decubitus ulcer, stage IV Sacral wound Seizure Seizure-like activity Sepsis SIRS (systemic inflammatory response syndrome) Sleep apnea (Unknown) OXYGEN 2L/MIN NC HS Syncope 57 year old with know quadriplegia and new onset syncope with change in position UTI (urinary tract infection) REC[facility] ADM[facility]-D/C 12/06/20 Weakness Surgical History Chronic suprapubic catheter History of colonoscopy 2010 History of open reduction and internal fixation (ORIF) procedure LEFT FEMUR Insertion of inferior vena caval filter (Unknown) Lithotripsy (Unknown) "laser lithotripsy left ureteral stone 03/17/11 " S/P debridement (09/06/21) Incision and Drainage and Debridement Sacral Tissue Down to Bone, 15cm x 11cm - Agusto Chaudhry, DO 09/06/21 S/P debridement (09/08/21) Excisional Debridement of Sacral Decubitus Ulcer, [id number] Down to Bone - Agusto Chaudhry, DO 09/08/2021. Patient made ASA 4. Ketamine/versed/fentanyl sedation. Tolerated without incident. S/P debridement S/P debridement (02/11/23) Debridement of sacral ulcer. Dr. Srivastava S/P knee surgery S/P tonsillectomy Suprapubic cystostomy (Unknown) IN PLACE Family History Mother , age 47 of cervical cancer Family history of diabetes mellitus Cervical cancer Father , age 85 of heart disease Family hx of colon cancer Heart disease Other No pertinent family history Social History Smoking Status: Never smoker Second Hand Exposure: No; Do You Dip or Chew Tobacco: No; Hx Alcohol Use: No Hx Substance Use: Yes Non-Prescribed Medications: Marijuana Last Used Substance: Days (ago) Substance Use Type Other:: medical marijuana Preferred Language: Tajik Communication Ability: Effective Visual Impairment: No Limitations Blower Feeder Dyed Raw Stock Required: No Beliefs That Will Affect Care: None marital status: Current Living Situation: Spouse Current Living Situation Comment: Lives with - has care nurse 5x/week, 29/03 caregivers current occupational status: disabled 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 Physical Exam Physical Exam: Please see Dr. Coppola's addendum for physical exam. Results & Data Results & Data Vital Signs (Past 12 Hours) Vital Signs Temp Pulse Pulse Resp BP BP Pulse Ox 02/23/23 13:53 102 H 02/23/23 12:44 109 H 20 100/73 92 02/23/23 10:05 02/23/23 10:05 94 H 20 125/73 94 02/23/23 09:32 36.9 C 102 H 16 95/53 L 94 02/23/23 09:53 97 H O2 Del Method 02/23/23 13:53 02/23/23 12:44 Room Air 02/23/23 10:05 Room Air 02/23/23 10:05 Room Air 02/23/23 09:32 Room Air 02/23/23 09:53 Laboratory Results Short CBC 02/23/23 Range/Units 09:42 WBC 14.37 H (4.8-10.8) K/ul Hgb 10.7 L (14.0-18.0) g/dl Hct 33.4 L (42.0-52.0) % Plt Count 279 (130-400) K/uL BMP 02/23/23 09:42 Sodium 134 L Potassium 4.0 Chloride 92 L Carbon Dioxide 38 H BUN 24 H Creatinine 1.02 Glucose 132 H Calcium 9.1 Liver Function 02/23/23 Range/Units 09:42 Total Bilirubin 0.4 (0.2-1.0) mg/dl AST 11 L (13-39) U/L ALT 8 (7-52) U/L Alkaline Phosphatase 47 (34-104) U/L Albumin 3.1 L (3.4-5.0) gm/dl Urine 02/23/23 Range/Units Unknown Urine Color Yellow Urine Appearance Clear (Clear) Urine pH 6.5 (4.5-7.5) Ur Specific [place] 1.009 (1.000-1.030) Urine Protein 1+ H (Negative) Urine Glucose (UA) Negative (Negative) Diagnostic Findings Abdomen/Pelvis CT 02/23/23 09:42 CT OF THE ABDOMEN AND PELVIS WITH CONTRAST CLINICAL HISTORY: Postoperative abdominal pain. COMPARISON STUDY: CT of the abdomen and pelvis February 09, 2023. TECHNIQUE: Following IV administration of 120 mL of Optiray, axial images of the abdomen and pelvis were obtained from the lung bases to the proximal femurs. Images were reviewed in the axial, sagittal, and coronal planes. IV contrast was administered without complication. Automated exposure control was utilized for the study. A dose lowering technique was utilized adhering to the principles of ALARA. CT DOSE: 4146.29 mGy.cm FINDINGS: Lung bases are unremarkable. No pneumatosis, free air or portal venous gas is present. The liver, spleen, adrenal glands, left kidney and pancreas are unremarkable. There is no biliary or pancreatic ductal dilatation. A right adrenal nodule remains unchanged. This is likely benign. There is a 6 mm right renal calculus. No ureteral calculi are present. No hydronephrosis or hydroureter. Suprapubic catheter is in place. A descending colostomy is noted. There is no evidence for a bowel obstruction. A moderate amount of stool within the colon and rectum is noted. Prominent retroperitoneal lymph nodes remain u nchanged. These are likely benign. A sacral decubitus ulcer is again noted. The defect has slightly decreased in size since CT of February 09, 2023. Associated soft tissue thickening suggestive of cellulitis and phlegmon is noted at the level of the ulcer. A few locules of soft tissue gas are present. No drainable fluid collection. Erosion of the coccyx and inferior sacrum is unchanged since CT of February 09, 2023. However, findings have increased since CT of May 23, 2022. A left gluteal ulcer is again noted with chronic erosion of the left ischial tuberosity. The appearance of the left ischial tuberosity is unchanged from earlier exams. IVC filters in place. IMPRESSION: 1. No evidence for a bowel obstruction status post descending colostomy. Moderate amount of stool within the colon and rectum. 2. Redemonstration of a sacral decubitus ulcer with associated soft tissue thickening and a small amount of soft tissue gas suggestive of cellulitis and phlegmon. No drainable fluid collection to suggest abscess. Erosion of the coccyx and sacrum, similar to CT of February 09, [address] of December 31, 2021. This represents acute to subacute osteomyelitis of the lower sacrum. 3. Redemonstration of a left gluteal ulcer with chronic erosion of the left ischial tuberosity. No evidence for acute osteomyelitis at this site. 4. Right nephrolithiasis. No ureteral calculi. No hydronephrosis. ACT 112: Negative or not required by law. Electronically signed by: Sami Jacobson M.D. 02/23/2023 12:37 PM Code Status & VTE Plan VTE Prophylaxis Plan VTE Prophylaxis will be ordered: Yes Supervising Physician Co-Signing Physician Notes Pt is a 62 y/o M with hx of DMII, Chronic decubitus ulcer (stage IV), quadriplegia 2/2 trauma, IDDM, neurogenic bladder on suprapubic catheter, colostomy bag in place, seizure, HTN, CKD III, on chronic AC (Coumadin) and recent admission for sepsis who was discharged on cefepime for 6 weeks admitted for diarrhea with lethargy. Pt was also discharged on Depakote due to seizure like activity during the hospital admission. Per stopped taking Depakote and currently only on Keprra. PE: Obese pt, NAD Lungs: CTA, no wheezing or crackles Cardiac: Normal S1/S2, no murmur Abd: obese abd, Ostomy bag in place (formed stool), NT and soft Sacral area: stage IV ulcer with stool content surrounding the area Psych: AAOx3 and normal affect A/P: Diarrhea and lethargy: -per pt lethargy has been improving since stopping Depakote - CT abd: Redemonstration of a sacral decubitus ulcer with associated soft tissue thickening and a small amount of soft tissue gas suggestive of cellulitis and phlegmon -will continue Cefepime -will send the stool for c.diff -will send for BCx -normal mental status during the exam Decubitus ulcer stage IV with cellulitis/Phlegmon: -will continue cefepime -consult surgery and wound nurse Seizure: -per pt he is only taking Keppra - noticed L arm movement yesterday night ----- I suspect it is likely muscle spasm movement (pt does have chronic muscle spasm) -will continue on Keppra and consult neurology Other chronic conditions: Plan as above Agree with A/p by Judith Mcgovern PA-C (4) Sacral decubitus ulcer Pressure injury stage: unspecified pressure injury stage Qualified Code(s): L89.159 - Pressure ulcer of sacral region, unspecified stage
[2023-02-23] MEDS ORDERED: CEFEPIME 20 ML IV ONE (14:30)
[2023-02-23 15:32] LABS: INR 2.9 (0.9-1.1); Prothrombin Time 29.9 Seconds (9.0-12.0)
[2023-02-23] MEDS ORDERED: PHARMACY GLYCEMIC MGMT CONSULT PRN (15:52)
[2023-02-23] MEDS ORDERED: GLUCAGON FOR INJ 1 MG VIAL IM PRN (16:15)
[2023-02-23] MEDS ORDERED: CARBOHYDRATES FOR HYPOGLYCEMIA PO PRN ×2 (16:15→17:18)
[2023-02-23] MEDS ORDERED: GLUCOSE 40% GEL 15 GM TUBE PO PRN ×2 (16:15→17:18)
[2023-02-23] MEDS ORDERED: GLUCOSE 10 TAB/TUBE PO PRN ×2 (16:15→17:18)
[2023-02-23] MEDS ORDERED: DEXTROSE 50% 50 ML SYRINGE IV PRN ×2 (16:15→17:18)
[2023-02-23] MEDS ORDERED: GLUCAGON FOR INJ 1 MG VIAL SQ PRN (17:18)
[2023-02-23] MEDS ORDERED: NYSTATIN/TRIAMCIN CR 15 GM TUBE EXT PRN (17:18)
[2023-02-23] MEDS ORDERED: INSULIN ASPART PER UNIT CHARGE SC SCH (17:18)
[2023-02-23] MEDS ORDERED: ONDANSETRON INJ 2 MG/ML 2 ML VIAL IV PRN (17:18)
[2023-02-23] MEDS ORDERED: POLYETHYLENE (MIRALAX) 17 GM PACK PO PRN (17:18)
[2023-02-23] MEDS ORDERED: ACETAMINOPHEN 325 MG TAB PO PRN (17:18)
[2023-02-23] MEDS ORDERED: MENTHOL-ZINC OXIDE 360 APPLN/120 GM TUBE EXT PRN (17:18)
[2023-02-23] MEDS: INSULIN ASPART PER UNIT CHARGE SC SCH ×2 (17:55→21:00)
[2023-02-23] MEDS ORDERED: INSULIN HUMAN NPH SC ONE (18:00)
--- NOTE | 2023-02-23 18:48 | Neurology Consultation ---
Date of Consultation February 23, 2023 Assessment & Plan (1) Seizure: Discussed with patient's . Depakote is a difficult medication to use in this patient as he is on multiple interacting meds most notably warfarin and tizanidine as well as several IV abx that are intermittent. Recommend he goes back on Keppra at a dose of 750mg BID. She will watch for mood symptoms but he seemed to tolerate this well in the past. -- Stop depakote -- Start Keppra 750mg BID -- Please contact us with any further questions Telehealth Consultation Telehealth Information Telehealth Information: I performed this visit using a real-time telehealth connection between my location and the patients location ([facility]). After connecting through interactive tele-video, patient was identified by name and da te of and/or wristband check.Patient (or authorized healthcare statement services representative) was informed that this was a telemedicine visit and it was being conducted confidentially over secure lines. My office door was closed and no one else was present in the room with me.Patient (or authorized healthcare statement services representative) provided consent to proceed with the visit, expressed an understanding of privacy and security of the telemedicine visit, and gave permission to have a hospital statement services representative in the room in order to assist with the visit and to conduct portions of the visit, as needed. I informed the patient (or authorized healthcare statement services representative) that I reviewed their record and presented the opportunity for them to ask any questions regarding the visit today. The patient agreed to participate. History of Present Illness Reason for Consultation: Seizure med management Requesting Physician: Dr. Coppola Attending Physician: Maureen Coppola MD History of Present Illness Marlon Rodriguez is a 62 yo M with a cervical SCI presenting with sepsis secondary to his sacral wound. He was recently seen by neurology on 02/12 for seizure-like activity and a plan was made to switch him from keppra to depakote. At home his noticed over the past few days he became increasingly sleepy and lethargic and stopped the depakote before bringing him to the hospital. The patient and his deny any difficulty with Keppra in the past though admit to breakthrough seizures in the setting of illness, similar to what was seen when he was last admitted. Denies any seizures in the last two days. Allergies Allergy/AdvReac Type Severity Reaction Status Date / Time codeine Allergy Severe THROAT Verified 02/23/23 14:12 SWELLS latex Allergy Intermediate Hives Verified 02/23/23 14:12 piperacillin Allergy Intermediate Hives Verified 02/23/23 14:12 Sulfa (Sulfonamide Allergy Intermediate HIVES Verified 02/23/23 14:12 Antibiotics) tazobactam Allergy Intermediate Hives Verified 02/23/23 14:12 aztreonam Allergy Unknown unknown Verified 02/23/23 14:12 metoclopramide [From [facility]] AdvReac Intermediate lethargy Verified 02/23/23 14:12 Home Medications Medication Instructions Recorded Confirmed Type allopurinol 100 mg tablet 100 mg PO BID 05/07/18 02/23/23 History magnesium oxide 400 mg (241.3 mg 400 mg PO AMHS 05/07/18 02/23/23 History magnesium) tablet pantoprazole 40 mg tablet,delayed 40 mg PO BID 05/07/18 02/23/23 History release ropinirole 1 mg tablet 1 mg PO QID 05/07/18 02/23/23 History escitalopram oxalate 20 mg tablet 20 mg PO QAM 08/21/19 02/23/23 History insulin human U-100 NPH-regulr 64 unit subcut BIDM 08/21/19 02/23/23 History 70-30 mix 100 unit/mL subcutaneous susp (Novolin 70/30 U-100 Insulin) warfarin 5 mg tablet 5 mg PO 4XWK 08/21/19 02/23/23 History baclofen 10 mg tablet See Rx Instructions .Route .COMPLEX 09/22/19 02/23/23 History cyclobenzaprine 10 mg tablet 15 mg PO HS 03/01/20 02/23/23 History hyoscyamine sulfate 0.125 mg tablet 0.125 mg PO QPM 03/01/20 02/23/23 History potassium chloride 10 mEq 10 meq PO BIDM 03/01/20 02/23/23 History tablet,extended release tizanidine 4 mg tablet 4 mg PO BID 03/01/20 02/23/23 History Medical Marijuana 6 drp PO PM 03/26/20 02/23/23 History methenamine hippurate 1 gram tablet 1 g PO BID 30 days #60 tabs 04/02/20 02/23/23 Rx ascorbic acid (vitamin C) 500 mg 250 mg PO TID 12/03/20 02/23/23 History tablet (Vitamin C) famotidine 20 mg tablet (Acid 20 mg PO BID 12/03/20 02/23/23 History 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)) Lactobacillus acidoph-L.bulgaricus 1 tab PO BID 01/03/21 02/23/23 History 1 million cell tablet (Floranex) insulin regular human 100 unit/mL See Rx Instructions .Route .COMPLEX 01/03/21 02/23/23 History injection solution (Novolin R Regular U-100 Insulin) menthol 0.44 %-zinc oxide 20.6 % 1 applic topical QID PRN Rash 01/03/21 02/23/23 History topical ointment (Calmoseptine) nystatin 100,000 unit/gram topical 1 applic topical BID 01/03/21 02/23/23 History powder metformin 1,000 mg tablet 1,000 mg PO BIDM 06/14/21 02/23/23 History atorvastatin 40 mg tablet 40 mg PO HS 12/31/21 02/23/23 History docusate sodium 100 mg capsule 100 mg PO AMHS 12/31/21 02/23/23 History levothyroxine 25 mcg tablet 25 mcg PO DAILYBB 02/12/22 02/23/23 History ketoconazole 2 % shampoo 1 applic topical 2XWK 05/22/22 02/23/23 History levetiracetam 500 mg tablet 500 mg PO AMHS 05/22/22 02/23/23 History multivitamin (Daily-Steve tablet) 1 tab PO DAILY 05/22/22 02/23/23 History nystatin-triamcinolone 100,000 1 applic topical BID PRN Rash 05/22/22 02/23/23 History unit/g-0.1 % topical cream spironolactone 25 mg tablet 25 mg PO QAM 05/22/22 02/23/23 History tacrolimus 0.1 % topical ointment 1 applic topical BID 05/22/22 02/23/23 History furosemide 40 mg tablet 40 mg PO BID17 02/09/23 02/23/23 History gabapentin 600 mg tablet 600 mg PO BID 02/09/23 02/23/23 History warfarin 7.5 mg tablet 7.5 mg PO 3XWK 02/09/23 02/23/23 History cefepime 2 gram solution for 2 g IV Q8H #35 ea 02/19/23 02/23/23 Rx injection metoprolol tartrate 25 mg tablet 12.5 mg PO QAM #15 tabs 02/19/23 02/23/23 Rx Patient History Medical History Anemia Asymptomatic bacteriuria Clostridium difficile infection (Unknown) CVA (cerebral vascular accident) DM type 2 (diabetes mellitus, type 2) Dyslipidemia Dysphagia Elevated lactic acid level Fever History of blood clots History of DVT (deep vein thrombosis) Hypertension Hypotension Ileus Kidney disease Lethargy Leukocytosis Major depressive disorder, recurrent Morbid obesity Obesity Occluded PICC line Positive urine culture Quadriplegia BRAIN INJURY 11 YRS AGO Quadriplegia Sacral decubitus ulcer, stage IV Sacral wound Seizure Seizure-like activity Sepsis SIRS (systemic inflammatory response syndrome) Sleep apnea (Unknown) OXYGEN 2L/MIN NC HS Syncope 57 year old with know quadriplegia and new onset syncope with change in position UTI (urinary tract infection) RECENT [facility] ADMISION-D/C 12/06/20 Weakness Surgical History Chronic suprapubic catheter History of colonoscopy 2010 History of open reduction and internal fixation (ORIF) procedure LEFT FEMUR Insertion of inferior vena caval filter (Unknown) Lithotripsy (Unknown) "laser lithotripsy left ureteral stone 03/17/11 " S/P debridement (09/06/21) Incision and Drainage and Debridement Sacral Tissue Down to Bone, 15cm x 11cm - Agusto Chaudhry, DO 09/06/21 S/P debridement (09/08/21) Excisional Debridement of Sacral Decubitus Ulcer, [id number] Down to Bone - Agusto Chaudhry, DO 09/08/2021. Patient made ASA 4. Ketamine/versed/fentanyl sedation. Tolerated without incident. S/P debridement S/P debridement (02/11/23) Debridement of sacral ulcer. Dr. Srivastava S/P knee surgery S/P tonsillectomy Suprapubic cystostomy (Unknown) IN PLACE Family History Mother , age 47 of cervical cancer Family history of diabetes mellitus Cervical cancer Father , age 85 of heart disease Family hx of colon cancer Heart disease Other No pertinent family history Social History Smoking Status: Never smoker Second Hand Exposure: No; Do You Dip or Chew Tobacco: No; Hx Alcohol Use: No Hx Substance Use: Yes Non-Prescribed Medications: Marijuana Last Used Substance: Days (ago) Substance Use Type Other:: medical marijuana Preferred Language: Australian Communication Ability: Effective Visual Impairment: No Limitations Audio Visual Equipment Rental Clerk Required: No Beliefs That Will Affect Care: None marital status: Current Living Situation: Spouse Current Living Situation Comment: pt lives with his current occupational status: disabled 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 Oriented to person and place. Fluent. Comprehension intact. Affect appropriate. Cranial Nerves: II:pupils 3/3 to 2/2. III/IV/: Versions intact without nystagmus, no gaze preference. VII: Facial expression symmetric VIII: Hearing intact to voice Reflexes: Unable to assess over telemedicine Results & Data Vital Signs (Past 12 Hours) Vital Signs Temp Pulse Pulse Pulse Resp BP BP 02/23/23 17:05 36.5 C 108 H 19 131/75 02/23/23 16:13 105 H 22 158/91 H 02/23/23 14:45 102 H 12 93/62 L 02/23/23 13:53 102 H 02/23/23 12:44 109 H 20 100/73 02/23/23 10:05 02/23/23 10:05 94 H 20 125/73 02/23/23 09:32 36.9 C 102 H 16 95/53 L 02/23/23 09:53 97 H Pulse Ox O2 Del Method 02/23/23 17:05 92 Room Air 02/23/23 16:13 92 Room Air 02/23/23 14:45 92 Room Air 02/23/23 13:53 02/23/23 12:44 92 Room Air 02/23/23 10:05 Room Air 02/23/23 10:05 94 Room Air 02/23/23 09:32 94 Room Air 02/23/23 09:53 Laboratory Results Abnormal lab results 02/23/23 02/23/23 02/23/23 Range/Units 09:42 09:42 14:44 WBC 14.37 H (4.8-10.8) K/ul RBC 3.72 L (4.70-6.10) M/uL Hgb 10.7 L (14.0-18.0) g/dl Hct 33.4 L (42.0-52.0) % RDW Std Deviation 66.6 H (36.4-46.3) fL RDW Coeff of Yoseph 20.4 H (11.5-14.5) % MPV 9.1 L (9.4-12.4) fL Neut # (Auto) 9.70 H (1.40-6.50) K/uL [place] # (Auto) 1.21 H (0.11-0.59) K/uL PT 29.9 H (9.0-12.0) Seconds INR 2.9 H (0.9-1.1) Sodium 134 L (136-145) mmol/L Chloride 92 L (98-107) mmol/L Carbon Dioxide 38 H (21-32) mmol/L BUN 24 H (6-23) mg/dl BUN/Creatinine Ratio 23.5 H (10-20) Glucose 132 H (70-99(Fasting)) mg/dl AST 11 L (13-39) U/L Albumin 3.1 L (3.4-5.0) gm/dl Globulin 4.4 H (2.5-4.0) gm/dl Albumin/Globulin Ratio 0.7 L (0.9-2) Lipase 5 L (11-82) U/L Urine Protein (Negative) Urine Blood (Negative) Ur Leukocyte Esterase (Negative) Urine WBC (Auto) (0-5) /hpf U Hyaline Cast (Auto) (0-5) /lpf U Epithel Cells (Auto) (0-5) /lpf 02/23/23 Range/Units Unknown WBC (4.8-10.8) K/ul RBC (4.70-6.10) M/uL Hgb (14.0-18.0) g/dl Hct (42.0-52.0) % RDW Std Deviation (36.4-46.3) fL RDW Coeff of Yoseph (11.5-14.5) % MPV (9.4-12.4) fL Neut # (Auto) (1.40-6.50) K/uL [place] # (Auto) (0.11-0.59) K/uL PT (9.0-12.0) Seconds INR (0.9-1.1) Sodium (136-145) mmol/L Chloride (98-107) mmol/L Carbon Dioxide (21-32) mmol/L BUN (6-23) mg/dl BUN/Creatinine Ratio (10-20) Glucose (70-99(Fasting)) mg/dl AST (13-39) U/L Albumin (3.4-5.0) gm/dl Globulin (2.5-4.0) gm/dl Albumin/Globulin Ratio (0.9-2) Lipase (11-82) U/L Urine Protein 1+ H (Negative) Urine Blood 1+ H (Negative) Ur Leukocyte Esterase 2+ H (Negative) Urine WBC (Auto) >30 H (0-5) /hpf U Hyaline Cast (Auto) 5-10 H (0-5) /lpf U Epithel Cells (Auto) >30 H (0-5) /lpf Diagnostic Findings Abdomen/Pelvis CT 02/23/23 09:42 CT OF THE ABDOMEN AND PELVIS WITH CONTRAST CLINICAL HISTORY: Postoperative abdominal pain. COMPARISON STUDY: CT of the abdomen and pelvis February 09, 2023. TECHNIQUE: Following IV administration of 120 mL of Optiray, axial images of the abdomen and pelvis were obtained from the lung bases to the proximal femurs. Images were reviewed in the axial, sagittal, and coronal planes. IV contrast was administered without complication. Automated exposure control was utilized for the study. A dose lowering technique was utilized adhering to the principles of ALARA. CT DOSE: 4146.29 mGy.cm FINDINGS: Lung bases are unremarkable. No pneumatosis, free air or portal venous gas is present. The liver, spleen, adrenal glands, left kidney and pancreas are unremarkable. There is no biliary or pancreatic ductal dilatation. A right adrenal nodule remains unchanged. This is likely benign. There is a 6 mm right renal calculus. No ureteral calculi are present. No hydronephrosis or hydroureter. Suprapubic catheter is in place. A descending colostomy is noted. There is no evidence for a bowel obstruction. A moderate amount of stool within the colon and rectum is noted. Prominent retroperitoneal lymph nodes remain unchanged. These are likely benign. A sacral decubitus ulcer is again noted. The defect has slightly decreased in size since CT of February 09, 2023. Associated soft tissue thickening suggestive of cellulitis and phlegmon is noted at the level of the ulcer. A few locules of soft tissue gas are present. No drainable fluid collection. Erosion of the coccyx and inferior sacrum is unchanged since CT of February 09, 2023. However, findings have increased since CT of May 23, 2022. A left gluteal ulcer is again noted with chronic erosion of the left ischial tuberosity. The appearance of the left ischial tuberosity is unchanged from earlier exams. IVC filters in place. IMPRESSION: 1. No evidence for a bowel obstruction status post descending colostomy. Moderate amount of stool within the colon and rectum. 2. Redemonstration of a sacral decubitus ulcer with associated soft tissue thickening and a small amount of soft tissue gas suggestive of cellulitis and phlegmon. No drainable fluid collection to suggest abscess. Erosion of the coccyx and sacrum, similar to CT of February 09, [address] of December 31, 2021. This represents acute to subacute osteomyelitis of the lower sacrum. 3. Redemonstration of a left gluteal ulcer with chronic erosion of the left ischial tuberosity. No evidence for acute osteomyelitis at this site. 4. Right nephrolithiasis. No ureteral calculi. No hydronephrosis. ACT 112: Negative or not required by law. Electronically signed by: Sami Jacobson M.D. 02/23/2023 12:37 PM
[2023-02-23] MEDS: rOPINIRole HCL 1 MG TABLET PO SCH ×2 (19:22→23:21)
[2023-02-23] MEDS: BACLOFEN 10 MG TAB PO SCH ×2 (19:23→21:01)
[2023-02-23] MEDS: ASCORBIC ACID 500 MG TAB PO SCH (19:24)
[2023-02-23] MEDS: allopurinoL 100 MG TAB PO SCH (19:25)
[2023-02-23] MEDS: FUROSEMIDE 40 MG TAB PO SCH (19:25)
[2023-02-23] MEDS: POTASSIUM CHLORIDE 10 MEQ TABCR PO SCH (19:26)
[2023-02-23] MEDS: WARFARIN SOD 7.5 MG TAB PO SCH (19:28)
[2023-02-23] MEDS ORDERED: levETIRAcetam 500 MG TAB PO SCH (21:00)
[2023-02-23] MEDS: PANTOprazole 40 MG TAB PO SCH (21:02)
[2023-02-23] MEDS: DOCUSATE SODIUM 100 MG CAP PO SCH (21:02)
[2023-02-23] MEDS: FAMOTIDINE 20 MG TAB PO SCH (21:03)
[2023-02-23] MEDS: ADVANCED PROBIOTIC 1250 MG CAPSULE PO SCH (21:03)
[2023-02-23] MEDS: GABAPENTIN 600 MG TAB PO SCH (21:03)
[2023-02-23] MEDS: ATORVASTATIN 40 MG TAB PO SCH (21:03)
[2023-02-23] MEDS: HYOSCYAMINE SULFATE 0.125 MG TAB PO SCH (21:04)
[2023-02-23] MEDS: CYCLOBENZAPRINE HCL 5 MG TAB PO SCH (21:04)
[2023-02-23] MEDS: NYSTATIN POWDER 15GM BTL EXT SCH (21:06)
[2023-02-23] MEDS ORDERED: SODIUM CHLORIDE 0.9% 1000ML 1,000 ML IV SCH (22:00)
[2023-02-23] MEDS: CEFEPIME 2,000 MG in SYRINGE 0 ML IV SCH (23:19)
[2023-02-23] MEDS: METHENAMINE HIPPURATE 1 GM TAB PO SCH (23:21)
[2023-02-23] MEDS: MAGNESIUM OXIDE 400 MG TAB PO SCH (23:21)
[2023-02-23] MEDS: tiZANidine HCL 4 MG TABLET PO SCH (23:22)
[2023-02-24] MEDS: ASCORBIC ACID 500 MG TAB PO SCH ×3 (05:36→16:40)
[2023-02-24] MEDS: allopurinoL 100 MG TAB PO SCH ×2 (05:37→16:40)
[2023-02-24] MEDS: rOPINIRole HCL 1 MG TABLET PO SCH ×3 (05:37→16:42)
[2023-02-24] MEDS: BACLOFEN 10 MG TAB PO SCH ×4 (05:37→20:56)
[2023-02-24] MEDS: LEVOTHYROXINE SODIUM 25 MCG TABLET PO SCH (05:38)
[2023-02-24 05:48] LABS: Hematocrit (blood only) 34.1 % (42.0-52.0); Hemoglobin 10.8 g/dl (14.0-18.0); Mean Corpuscular Hemoglobin 28.8 pg (25.0-34.0); Mean Corpuscular Hgb Conc 31.7 g/dL (32.0-36.0); Mean Corpuscular Volume 90.9 fL (80.0-100.0); Mean Platelet Volume 8.8 fL (9.4-12.4); Platelet Count 247 K/uL (130-400); RDW Standard Deviation 67.4 fL (36.4-46.3); Red Blood Count 3.75 M/uL (4.70-6.10); White Blood Count 12.59 K/ul (4.8-10.8)
[2023-02-24 06:05] LABS: BUN Creatinine Ratio 22.9 (10-20); Calcium 8.6 mg/dl (8.6-10.3); Creatinine Clr Calc Pharmacy 106.6 ml/min; Est GFR (African American) 87.1 ml/min; Est GFR (Non-African American) 75.2 ml/min; Potassium 4.3 mmol/L (3.5-5.1)
[2023-02-24] MEDS: CEFEPIME 2,000 MG in SYRINGE 0 ML IV SCH ×2 (06:42→15:04)
--- NOTE | 2023-02-24 08:12 | Hospitalist Progress Note ---
Date of Service February 24, 2023 Assessment & Plan (1) Severe sepsis: (2) Weakness: (3) Leukocytosis: (4) Sacral decubitus ulcer: (5) Left perineal ischial pressure ulcer: (6) Diarrhea: (7) Diplegia of lower extremities: (8) Anemia: (9) Current use of residential anticoagulation: (10) Nocturnal hypoxia: (11) CKD (chronic kidney disease), stage III: (12) Morbid obesity: (13) Neurogenic bladder: Plan This is a 61yo F with a PMH of quadriplegia secondary to traumatic accident years ago, neurogenic bladder with suprapubic catheter, chronic stage IV decubitus ulcer over the past 10 years follows [facility] wound clinic, insulin-dependent T2DM, CKD stage III in setting of diabetic nephropathy, morbid obesity, HTN, seizure disorder, iron deficiency anemia, MGUS followed with hematology, history of VRE, depression, coagulation disorder on chronic Coumadin therapy who presents with diarrhea and more lethargy over the past few days. Severe Sepsis POA:infected sacral ulcer, leukocytosis and tachycardia. Lactate pending Stage IV decubitus ulcer Left ischial wound Recently admittedfrom 02/09-02/19 for worsening of chronic sacral wound Underwent debridement of sacral ulcer by Dr. Srivastava on 02/11/2023 Follows with [facility] General surgery with mention of possibly needing follow-up in a tertiary care for chronic wound in the future Discharged on 6 weeks of IV cefepime with midline in place per ID recommendation, with recommendation for 2-4 wk ID follow-up CT abd/pelvis 02/23 with redemonstration of a sacral decubitus ulcer with associated soft tissue thickening and a small amount of soft tissue gas suggestive of cellulitis and phlegmon. No drainable fluid collection to suggest abscess. Erosion of the coccyx and sacrum, similar to CT of February 09, 2023. This represents acute to subacute osteomyelitis of the lower sacrum Continue regimen of IV Cefepime, wound care, repositioning Evaluated by surgery, no plans for surgical intervention. Continue wound care Diarrhea Stool studies negative Suprapubic cath 2/2 neurogenic bladder - Martinez in place, history of recurrent UTIs Seizure disorder Appreciate Neurology input. Keppra increased to 750mg BID Insulin-dependent T2DM A1c of 6.9 in February 2023 Glycemic pharmacy consulted Chronic anticoagulation 2/2 coagulation disorder INR 2.9, continue home warfarin dose Chronic quadriplegia 2/2 traumatic accident Continue supportive care DVT prophylaxis: coumadin Dispo: Plan to discharge home tomorrow Code status: FULL Admission and Anticipated Discharge Date Admission Date: February 23, 2023 Subjective No further diarrhea noted here Remains afebrile Stool in ostomy is soft brown Review of Systems Review of Systems: As above Physical Exam Physical Exam: Pleasant, comfortable, no acute distress Respiratory: Breathing comfortably on room air, no wheezing/rhonchi/rales Cardiovascular: regular rate and rhythm, no murmurs/rubs/gallops Gastrointestinal (Abdomen): soft, non tender. Stool in ostomy bag is soft and brown Musculoskeletal: No edema Neurologic: No edema. Baseline quadriplegia. Results & Data Results & Data Vital Signs (Past 12 Hours) Vital Signs Temp Pulse Pulse Pulse Resp BP Pulse Ox 02/24/23 08:04 36.6 C 97 H 19 113/61 98 02/24/23 07:21 101 H 02/24/23 03:00 36.7 C 91 H 20 93/66 L 97 02/23/23 23:53 114 H 02/23/23 22:30 37.0 C 113 H 22 119/70 94 O2 Del Method O2 Flow Rate 02/24/23 08:04 Room Air 02/24/23 07:21 02/24/23 03:00 Nasal Cannula 2 02/23/23 23:53 02/23/23 22:30 Room Air (4) Sacral decubitus ulcer Pressure injury stage: unspecified pressure injury stage Qualified Code(s): L89.159 - Pressure ulcer of sacral region, unspecified stage
[2023-02-24] MEDS: INSULIN ASPART PER UNIT CHARGE SC SCH ×4 (08:15→21:11)
[2023-02-24] MEDS: DOCUSATE SODIUM 100 MG CAP PO SCH ×2 (08:16→20:57)
[2023-02-24] MEDS: METOPROLOL TARTRATE 25 MG TAB PO SCH (08:16)
[2023-02-24] MEDS: MULTIVITAMIN TAB PO SCH (08:16)
[2023-02-24] MEDS: POTASSIUM CHLORIDE 10 MEQ TABCR PO SCH ×2 (08:16→16:39)
[2023-02-24] MEDS: SPIRONOLACTONE 25 MG TAB PO SCH (08:17)
[2023-02-24] MEDS: PANTOprazole 40 MG TAB PO SCH ×2 (08:17→21:01)
[2023-02-24] MEDS: NYSTATIN POWDER 15GM BTL EXT SCH ×2 (08:17→21:02)
[2023-02-24] MEDS: FUROSEMIDE 40 MG TAB PO SCH ×2 (08:17→16:39)
[2023-02-24] MEDS: ADVANCED PROBIOTIC 1250 MG CAPSULE PO SCH ×2 (08:17→21:00)
[2023-02-24] MEDS: FAMOTIDINE 20 MG TAB PO SCH ×2 (08:17→20:59)
[2023-02-24] MEDS: GABAPENTIN 600 MG TAB PO SCH ×2 (08:18→20:58)
[2023-02-24] MEDS: levETIRAcetam 250 MG TAB PO SCH ×2 (08:46→21:00)
[2023-02-24] MEDS ORDERED: ESCITALOPRAM OXALATE 20 MG TAB PO SCH (09:00)
[2023-02-24] MEDS ORDERED: INSULIN HUMAN NPH SC SCH (09:00)
--- NOTE | 2023-02-24 09:48 | Surgery Consultation ---
Date of Consultation February 24, 2023 Assessment & Plan (1) Sacral decubitus ulcer: Assessment:Patient is 62 years old with a trend, no past medical history of quadriplegia due to the trauma 11 years ago, insulin-dependent type 2 diabetes, chronic kidney disease stage III, morbid obesity, neurogenic bladder, hypo tension, anticoagulated on Coumadin, seizures, CVA, DVT, and chronic sacral ulcer, I was asked to consult chronic sacral ulcer, patient stated he had a chronic sacral ulcer about the 10 years, patient said chronic ulcer cicada worse over the last 3 months, patient had the about this 3 time a debridement chronic sacral ulcer and this year, last department cycle her chronic ulcer by Dr. Srivastava on February 11, 2023. Plan:- no surgical indication now for chronic sacral ulcer. - continues IV antibiotic, cefepime. - wound care nurse change dressing once a day, - F/u [facility] wound care center once discharge pt, - pt agreed with the treatment plan, I answered all questions. - sign off , please call with questions, Thanks. Supervising Physician Co-Signing Physician Notes Pt is a 62 y/o M with hx of DMII, Chronic decubitus ulcer (stage IV), quadriplegia 2/2 trauma, IDDM, neurogenic bladder on suprapubic catheter, colostomy bag in place, seizure, HTN, CKD III, on chronic AC (Coumadin) and recent admission for sepsis who was discharged on cefepime for 6 weeks admitted for diarrhea with lethargy. Pt was also discharged on Depakote due to seizure like activity during the hospital admission. Per stopped taking Depakote and currently only on Keprra. PE: Obese pt, NAD Lungs: CTA, no wheezing or crackles Cardiac: Normal S1/S2, no murmur Abd: obese abd, Ostomy bag in place (formed stool), NT and soft Sacral area: stage IV ulcer with stool content surrounding the area Psych: AAOx3 and normal affect A/P: Diarrhea and lethargy: -per pt lethargy has been improving since stopping Depakote - CT abd: Redemonstration of a sacral decubitus ulcer with associated soft tissue thickening and a small amount of soft tissue gas suggestive of cellulitis and phlegmon -will continue Cefepime -will send the stool for c.diff -will send for BCx -normal mental status during the exam Decubitus ulcer stage IV with cellulitis/Phlegmon: -will continue cefepime -consult surgery and wound nurse Seizure: -per pt he is only taking Keppra - noticed L arm movement yesterday night ----- I suspect it is likely muscle spasm movement (pt does have chronic muscle spasm) -will continue on Keppra and consult neurology Other chronic conditions: Plan as above Agree with A/p by Judith Mcgovern PA-C History of Present Illness Reason for Consultation: chronic sacral ulcer Requesting Physician: Judith Mcgovern PA-C Attending Physician: Rossy Clifford MD History of Present Illness CC; weakness HPI: Patient is 62 years old with a trend, no past medical history of quadriplegia due to the trauma 11 years ago, insulin-dependent type 2 diabetes, chronic kidney disease stage III, morbid obesity, neurogenic bladder, hypotension, anticoagulated on Coumadin, seizures, CVA, DVT, and chronic sacral ulcer, I was asked to consult chronic sacral ulcer, patient stated he had a chronic sacral ulcer about the 10 years, patient said chronic ulcer cicada worse over the last 3 months, patient had the about this 3 time a debridement chronic sacral ulcer and this year, last department cycle her chronic ulcer by Dr. Srivastava on February 11, 2023. Patient denies any fever, no chills, no chest pain, patient said that he feels much better since admission to hospital. the wound care nurse to change the dressing once a day. Allergies Allergy/AdvReac Type Severity Reaction Status Date / Time codeine Allergy Severe THROAT Verified 02/23/23 14:12 SWELLS latex Allergy Intermediate Hives Verified 02/23/23 14:12 piperacillin Allergy Intermediate Hives Verified 02/23/23 14:12 Sulfa (Sulfonamide Allergy Intermediate HIVES Verified 02/23/23 14:12 Antibiotics) tazobactam Allergy Intermediate Hives Verified 02/23/23 14:12 aztreonam Allergy Unknown unknown Verified 02/23/23 14:12 metoclopramide [From Reglan] AdvReac Intermediate lethargy Verified 02/23/23 14:12 Home Medications Medication Instructions Recorded Confirmed Type allopurinol 100 mg tablet 100 mg PO BID 05/07/18 02/23/23 History magnesium oxide 400 mg (241.3 mg 400 mg PO AMHS 05/07/18 02/23/23 History magnesium) tablet pantoprazole 40 mg tablet,delayed 40 mg PO BID 05/07/18 02/23/23 History release ropinirole 1 mg tablet 1 mg PO QID 05/07/18 02/23/23 History escitalopram oxalate 20 mg tablet 20 mg PO QAM 08/21/19 02/23/23 History insulin human U-100 NPH-regulr 64 unit subcut BIDM 08/21/19 02/23/23 History 70-30 mix 100 unit/mL subcutaneous susp (Novolin 70/30 U-100 Insulin) warfarin 5 mg tablet 5 mg PO 4XWK 08/21/19 02/23/23 History baclofen 10 mg tablet See Rx Instructions .Route .COMPLEX 09/22/19 02/23/23 History cyclobenzaprine 10 mg tablet 15 mg PO HS 03/01/20 02/23/23 History hyoscyamine sulfate 0.125 mg tablet 0.125 mg PO QPM 03/01/20 02/23/23 History potassium chloride 10 mEq 10 meq PO BIDM 03/01/20 02/23/23 History tablet,extended release tizanidine 4 mg tablet 4 mg PO BID 03/01/20 02/23/23 History Medical Marijuana 6 drp PO PM 03/26/20 02/23/23 History methenamine hippurate 1 gram tablet 1 g PO BID 30 days #60 tabs 04/02/20 02/23/23 Rx ascorbic acid (vitamin C) 500 mg 250 mg PO TID 12/03/20 02/23/23 History tablet (Vitamin C) famotidine 20 mg tablet (Acid 20 mg PO BID 12/03/20 02/23/23 History Heel Coverer (famotidine)) Lactobacillus acidoph-L.bulgaricus 1 tab PO BID 01/03/21 02/23/23 History 1 million cell tablet (Floranex) insulin regular human 100 unit/mL See Rx Instructions .Route .COMPLEX 01/03/21 02/23/23 History injection solution (Novolin R Regular U-100 Insulin) menthol 0.44 %-zinc oxide 20.6 % 1 applic topical QID PRN Rash 01/03/21 02/23/23 History topical ointment (Calmoseptine) nystatin 100,000 unit/gram topical 1 applic topical BID 01/03/21 02/23/23 Histor y powder metformin 1,000 mg tablet 1,000 mg PO BIDM 06/14/21 02/23/23 History atorvastatin 40 mg tablet 40 mg PO HS 12/31/21 02/23/23 History docusate sodium 100 mg capsule 100 mg PO AMHS 12/31/21 02/23/23 History levothyroxine 25 mcg tablet 25 mcg PO DAILYBB 02/12/22 02/23/23 History ketoconazole 2 % shampoo 1 applic topical 2XWK 05/22/22 02/23/23 History levetiracetam 500 mg tablet 500 mg PO AMHS 05/22/22 02/23/23 History multivitamin (Daily-Steve tablet) 1 tab PO DAILY 05/22/22 02/23/23 History nystatin-triamcinolone 100,000 1 applic topical BID PRN Rash 05/22/22 02/23/23 History unit/g-0.1 % topical cream spironolactone 25 mg tablet 25 mg PO QAM 05/22/22 02/23/23 History tacrolimus 0.1 % topical ointment 1 applic topical BID 05/22/22 02/23/23 History furosemide 40 mg tablet 40 mg PO BID17 02/09/23 02/23/23 History gabapentin 600 mg tablet 600 mg PO BID 02/09/23 02/23/23 History warfarin 7.5 mg tablet 7.5 mg PO 3XWK 02/09/23 02/23/23 History cefepime 2 gram solution for 2 g IV Q8H #35 ea 02/19/23 02/23/23 Rx injection metoprolol tartrate 25 mg tablet 12.5 mg PO QAM #15 tabs 02/19/23 02/23/23 Rx Patient History Medical History Anemia Asymptomatic bacteriuria Clostridium difficile infection (Unknown) CVA (cerebral vascular accident) DM type 2 (diabetes mellitus, type 2) Dyslipidemia Dysphagia Elevated lactic acid level Fever History of blood clots History of DVT (deep vein thrombosis) Hypertension Hypotension Ileus Kidney disease Lethargy Leukocytosis Major depressive disorder, recurrent Morbid obesity Obesity Occluded PICC line Positive urine culture Quadriplegia BRAIN INJURY 11 YRS AGO Quadriplegia Sacral decubitus ulcer, stage IV Sacral wound Seizure Seizure-like activity Sepsis SIRS (systemic inflammatory response syndrome) Sleep apnea (Unknown) OXYGEN 2L/MIN NC HS Syncope 57 year old with know quadriplegia and new onset syncope with change in position UTI (urinary tract infection) RECENT [facility] ADMISION-D/C 12/06/20 Weakness Surgical History Chronic suprapubic catheter History of colonoscopy 2010 History of open reduction and internal fixation (ORIF) procedure LEFT FEMUR Insertion of inferior vena caval filter (Unknown) Lithotripsy (Unknown) "laser lithotripsy left ureteral stone 03/17/11 " S/P debridement (09/06/21) Incision and Drainage and Debridement Sacral Tissue Down to Bone, 15cm x 11cm - Agusto Chaudhry, DO 09/06/21 S/P debridement (09/08/21) Excisional Debridement of Sacral Decubitus Ulcer, [id number] Down to Bone - Agusto Chaudhry, DO 09/08/2021. Patient made ASA 4. Ketamine/versed/fentanyl sedation. Tolerated without incident. S/P debridement S/P debridement (02/11/23) Debridement of sacral ulcer. Dr. Srivastava S/P knee surgery S/P tonsillectomy Suprapubic cystostomy (Unknown) IN PLACE Family History Mother , age 47 of cervical cancer Family history of diabetes mellitus Cervical cancer Father , age 85 of heart disease Family hx of colon cancer Heart disease Other No pertinent family history Social History Smoking Status: Never smoker Second Hand Exposure: No; Do You Dip or Chew Tobacco: No; Hx Alcohol Use: No Hx Substance Use: Yes Non-Prescribed Medications: Marijuana Last Used Substance: Days (ago) Substance Use Type Other:: medical marijuana Preferred Language: Yoruba Communication Ability: Effective Visual Impairment: No Limitations Criminal Records Technician Required: No Beliefs That Will Affect Care: None marital status: Current Living Situation: Spouse Current Living Situation Comment: pt lives with his current occupational status: disabled 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 Feels Safe at Home: Yes Safety Concerns: Feels Safe At This Time Physical Activity Frequency Comment: QUADRAPLEGIA C4-5-ABLE TO MOVE ARMS, HANDS Assistive Devices: Wheelchair Review of Systems Constitutional: as per Subjective / HPI Eyes: as per Subjective / HPI Respiratory: as per Subjective / HPI Cardiovascular: Additional Comments: HTN, Hypotension, DVT Gastrointestinal: colostomy Genitourinary: + problem reported (suprapubic cystostomy) Neurologic: as per Subjective / HPI seizure Psychiatric: as per Subjective / HPI Endocrine: Insulin-dependent type 2 diabetes Hematologic / Lymphatic: Anticoagulated on Coumadin Physical Exam Constitutional: Obesity no distress Eyes: PERRL, conjunctivae normal, anicteric sclerae Neck: trachea midline, no thyromegaly Respiratory: normal respiratory effort, lungs clear to auscultation Cardiovascular: RRR, no murmur, no edema Gastrointestinal (Abdomen): soft, NT, ND, colostomy working well, Skin: chronic sacral ulcer, stage 4. size about 15cm x 8cm. no significant necrotic tissue, no abscess. left chronic gluteal ulcer, stage 2, size about 2x3cm, no drainage, Neurologic: patellar DTR's 2+ bilat, sensation intact Psychiatric: A+Ox3, euthymic affect Results & Data Vital Signs (Past 12 Hours) Vital Signs Temp Pulse Pulse Pulse Resp BP Pulse Ox 02/24/23 08:04 36.6 C 97 H 19 113/61 98 02/24/23 07:21 101 H 02/24/23 03:00 36.7 C 91 H 20 93/66 L 97 02/23/23 23:53 114 H 02/23/23 22:30 37.0 C 113 H 22 119/70 94 O2 Del Method O2 Flow Rate 02/24/23 08:04 Room Air 02/24/23 07:21 02/24/23 03:00 Nasal Cannula 2 02/23/23 23:53 02/23/23 22:30 Room Air Laboratory Results Abnormal lab results 02/23/23 02/23/23 02/23/23 Range/Units 09:42 09:42 14:44 WBC 14.37 H (4.8-10.8) K/ul RBC 3.72 L (4.70-6.10) M/uL Hgb 10.7 L (14.0-18.0) g/dl Hct 33.4 L (42.0-52.0) % MCHC (32.0-36.0) g/dL RDW Std Deviation 66.6 H (36.4-46.3) fL RDW Coeff of Yoseph 20.4 H (11.5-14.5) % MPV 9.1 L (9.4-12.4) fL Neut # (Auto) 9.70 H (1.40-6.50) K/uL [place] # (Auto) 1.21 H (0.11-0.59) K/uL PT 29.9 H (9.0-12.0) Seconds INR 2.9 H (0.9-1.1) Sodium 134 L (136-145) mmol/L Chloride 92 L (98-107) mmol/L Carbon Dioxide 38 H (21-32) mmol/L BUN 24 H (6-23) mg/dl BUN/Creatinine Ratio 23.5 H (10-20) Glucose 132 H (70-99(Fasting)) mg/dl POC Glucose (70-99) mg/dl AST 11 L (13-39) U/L Albumin 3.1 L (3.4-5.0) gm/dl Globulin 4.4 H (2.5-4.0) gm/dl Albumin/Globulin Ratio 0.7 L (0.9-2) Lipase 5 L (11-82) U/L Urine Protein (Negative) Urine Blood (Negative) Ur Leukocyte Esterase (Negative) Urine WBC (Auto) (0-5) /hpf U Hyaline Cast (Auto) (0-5) /lpf U Epithel Cells (Auto) (0-5) /lpf 02/23/23 02/23/23 02/23/23 Range/Units 19:21 20:42 Unknown WBC (4.8-10.8) K/ul RBC (4.70-6.10) M/uL Hgb (14.0-18.0) g/dl Hct (42.0-52.0) % MCHC (32.0-36.0) g/dL RDW Std Deviation (36.4-46.3) fL RDW Coeff of Yoseph (11.5-14.5) % MPV (9.4-12.4) fL Neut # (Auto) (1.40-6.50) K/uL [place] # (Auto) (0.11-0.59) K/uL PT (9.0-12.0) Seconds INR (0.9-1.1) Sodium (136-145) mmol/L Chloride (98-107) mmol/L Carbon Dioxide (21-32) mmol/L BUN (6-23) mg/dl BUN/Creatinine Ratio (10-20) Glucose (70-99(Fasting)) mg/dl POC Glucose 177 H 196 H (70-99) mg/dl AST (13-39) U/L Albumin (3.4-5.0) gm/dl Globulin (2.5-4.0) gm/dl Albumin/Globulin Ratio (0.9-2) Lipase (11-82) U/L Urine Protein 1+ H (Negative) Urine Blood 1+ H (Negative) Ur Leukocyte Esterase 2+ H (Negative) Urine WBC (Auto) >30 H (0-5) /hpf U Hyaline Cast (Auto) 5-10 H (0-5) /lpf U Epithel Cells (Auto) >30 H (0-5) /lpf 02/24/23 02/24/23 02/24/23 Range/Units 05:25 05:25 07:34 WBC 12.59 H (4.8-10.8) K/ul RBC 3.75 L (4.70-6.10) M/uL Hgb 10.8 L (14.0-18.0) g/dl Hct 34.1 L (42.0-52.0) % MCHC 31.7 L (32.0-36.0) g/dL RDW Std Deviation 67.4 H (36.4-46.3) fL RDW Coeff of Yoseph 20.0 H (11.5-14.5) % MPV 8.8 L (9.4-12.4) fL Neut # (Auto) (1.40-6.50) K/uL [place] # (Auto) (0.11-0.59) K/uL PT (9.0-12.0) Seconds INR (0.9-1.1) Sodium 135 L (136-145) mmol/L Chloride 96 L (98-107) mmol/L Carbon Dioxide 35 H (21-32) mmol/L BUN 24 H (6-23) mg/dl BUN/Creatinine Ratio 22.9 H (10-20) Glucose 142 H (70-99(Fasting)) mg/dl POC Glucose 147 H (70-99) mg/dl AST (13-39) U/L Albumin (3.4-5.0) gm/dl Globulin (2.5-4.0) gm/dl Albumin/Globulin Ratio (0.9-2) Lipase (11-82) U/L Urine Protein (Negative) Urine Blood (Negative) Ur Leukocyte Esterase (Negative) Urine WBC (Auto) (0-5) /hpf U Hyaline Cast (Auto) (0-5) /lpf U Epithel Cells (Auto) (0-5) /lpf Diagnostic Findings CT OF THE ABDOMEN AND PELVIS WITH CONTRAST CLINICAL HISTORY: Postoperative abdominal pain. COMPARISON STUDY: CT of the abdomen and pelvis February 09, 2023. TECHNIQUE: Following IV administration of 120 mL of Optiray, axial images of the abdomen and pelvis were obtained from the lung bases to the proximal femurs. Images were reviewed in the axial, sagittal, and coronal planes. IV contrast was administered without complication. Automated exposure control was utilized for the study. A dose lowering technique was utilized adhering to the principles of ALARA. CT DOSE: 4146.29 mGy.cm FINDINGS: Lung bases are unremarkable. No pneumatosis, free air or portal venous gas is present. The liver, spleen, adrenal glands, left kidney and pancreas are unremarkable. There is no biliary or pancreatic ductal dilatation. A right adrenal nodule remains unchanged. This is likely benign. There is a 6 mm right renal calculus. No ureteral calculi are present. No hydronephrosis or hydroureter. Suprapubic catheter is in place. A descending colostomy is noted. There is no evidence for a bowel obstruction. A moderate amount of stool within the colon and rectum is noted. Prominent retroperitoneal lymph nodes remain unchanged. These are likely benign. A sacral decubitus ulcer is again noted. The defect has slightly decreased in size since CT of February 09, 2023. Associated soft tissue thickening suggestive of cellulitis and phlegmon is noted at the level of the ulcer. A few locules of soft tissue gas are present. No drainable fluid collection. Erosion of the coccyx and inferior sacrum is unchanged since CT of February 09, 2023. However, findings have increased since CT of May 23, 2022. A left gluteal ulcer is again noted with chronic erosion of the left ischial tuberosity. The appearance of the left ischial tuberosity is unchanged from earlier exams. IVC filters in place. IMPRESSION: 1. No evidence for a bowel obstruction status post descending colostomy. Moderate amount of stool within the colon and rectum. 2. Redemonstration of a sacral decubitus ulcer with associated soft tissue thickening and a small amount of soft tissue gas suggestive of cellulitis and phlegmon. No drainable fluid collection to suggest abscess. Erosion of the coccyx and sacrum, similar to CT of February 09, [address] of December 31, 2021. This represents acute to subacute osteomyelitis of the lower sacrum. 3. Redemonstration of a left gluteal ulcer with chronic erosion of the left ischial tuberosity. No evidence for acute osteomyelitis at this site. 4. Right nephrolithiasis. No ureteral calculi. No hydronephrosis. (1) Sacral decubitus ulcer Pressure injury stage: unspecified pressure injury stage Qualified Code(s): L89.159 - Pressure ulcer of sacral region, unspecified stage
[2023-02-24 11:40] LABS: Adenovirus F 40/41 PCR Not Detected (NotDetected); Astrovirus PCR Not Detected (NotDetected); Campylobacter PCR Not Detected (NotDetected); Cryptosporidium PCR Not Detected (NotDetected); Cyclospora cayetanensis PCR Not Detected (NotDetected); Entamoeba histolytica PCR Not Detected (NotDetected); Enteroaggregative E.coli(EAEC) Not Detected (NotDetected); Enteropathogenic E.coli (EPEC) Not Detected (NotDetected); Enterotoxigenic E.coli (ETEC) Not Detected (NotDetected); Giardia lamblia PCR Not Detected (NotDetected); Norovirus GI/GII PCR Not Detected (NotDetected); Plesiomonas shigelloides PCR Not Detected (NotDetected); Rotavirus A PCR Not Detected (NotDetected); Salmonella PCR Not Detected (NotDetected); Sapovirus PCR Not Detected (NotDetected); Shiga-like Toxin E.coli (STEC) Not Detected (NotDetected); Shigella/Enteroinvasive E.coli Not Detected (NotDetected); Vibrio cholerae PCR Not Detected (NotDetected); Vibrio species PCR Not Detected (NotDetected); Yersinia enterocolitica PCR Not Detected (NotDetected)
[2023-02-24] MEDS: METHENAMINE HIPPURATE 1 GM TAB PO SCH (11:48)
[2023-02-24] MEDS: MAGNESIUM OXIDE 400 MG TAB PO SCH (11:48)
[2023-02-24] MEDS: tiZANidine HCL 4 MG TABLET PO SCH (11:48)
--- NOTE | 2023-02-24 11:48 | Pharmacy Report ---
Pharmacy Glycemic Short Note 2 - Date of Service February 24, 2023 - Glycemic Short BSG Results (Last 24 hours): 02/23/23 02/23/23 02/24/23 19:21 20:42 05:25 Glucose 142 H POC Glucose 177 H 196 H 02/24/23 02/24/23 07:34 11:30 Glucose POC Glucose 147 H 145 H OUTPATIENT ANTIDIABETIC REGIMEN: * Novolin 70/30 64 units BIDM + regular sliding scale * Metformin 1 gm PO BID * A1c 6.9% 02/10/23 ASSESSMENT: * 61 yo M with a complex medical history history including quadriplegia, chronic stage IV decubitus ulcer (on cefepime), T2DM, CKD stage II, recently admitted early February and is known to the glycemic service. * Patient with good glycemic control during recent admission with carb ratio of 2.5 and correction factor 10- will continue * NPH 50 units qAM and 45 units with dinner * T2DM diet ordered PLAN FOR INPATIENT GLYCEMIC CONTROL: * Hold outpatient oral diabetes medications * Basal insulin * NPH 50 units QAM, 45 units with dinner * Bolus insulin * NovoLog per scale ACHS or Q6hrs while NPO * Goal Range: Low 110 mg/dL - High 140 mg/dL * Correction Factor: 10 mg/dL/unit * Nutritional / Prandial insulin per carb ratio of 1 unit per 2.5 grams CHO consumed
--- NOTE | 2023-02-24 15:44 | Electrocardiogram Report ---
Test Reason : Blood Pressure : / mmHG Vent. Rate : 089 BPM Atrial Rate : 089 BPM P-R Int : 164 ms QRS Dur : 132 ms QT Int : 412 ms P-R-T Axes : 039 013 -05 degrees QTc Int : 501 ms Normal sinus rhythm Right bundle branch block Anterior infarct , age undetermined Abnormal ECG When compared with ECG of 09-FEB-2023 14:42, No significant change was found Confirmed by Jose Alfredo Courtney ([id number]) on 02/24/2023 3:43:55 PM Referred By: REFERRED SELF Confirmed By:Jose Alfredo Courtney
[2023-02-24] MEDS ORDERED: WARFARIN SOD 5 MG TAB PO SCH (16:00)
[2023-02-24] MEDS: INSULIN HUMAN NPH SC SCH (16:38)
[2023-02-24] MEDS: ATORVASTATIN 40 MG TAB PO SCH (20:55)
[2023-02-24] MEDS: CYCLOBENZAPRINE HCL 5 MG TAB PO SCH (20:56)
[2023-02-24] MEDS: HYOSCYAMINE SULFATE 0.125 MG TAB PO SCH (21:02)
[2023-02-25] MEDS: rOPINIRole HCL 1 MG TABLET PO SCH ×4 (00:17→17:16)
[2023-02-25] MEDS: tiZANidine HCL 4 MG TABLET PO SCH ×2 (00:18→11:39)
[2023-02-25] MEDS: MAGNESIUM OXIDE 400 MG TAB PO SCH ×2 (00:18→11:39)
[2023-02-25] MEDS: METHENAMINE HIPPURATE 1 GM TAB PO SCH ×2 (00:19→11:39)
[2023-02-25] MEDS: CEFEPIME 2,000 MG in SYRINGE 0 ML IV SCH ×3 (00:22→15:57)
[2023-02-25] MEDS: allopurinoL 100 MG TAB PO SCH ×2 (05:06→17:18)
[2023-02-25] MEDS: ASCORBIC ACID 500 MG TAB PO SCH ×3 (05:07→17:18)
[2023-02-25] MEDS: BACLOFEN 10 MG TAB PO SCH ×3 (05:09→17:16)
[2023-02-25] MEDS: LEVOTHYROXINE SODIUM 25 MCG TABLET PO SCH (05:09)
[2023-02-25 07:17] LABS: Basophils # (auto) 0.09 K/uL (0-0.2); Basophils % (auto) 0.7 %; Eosinophils # (auto) 0.29 K/uL (0-0.50); Eosinophils % (auto) 2.3 %; Hematocrit (blood only) 32.9 % (42.0-52.0); Hemoglobin 10.6 g/dl (14.0-18.0); Immature Granulocytes # (auto) 0.17 K/uL (0.01-0.20); Immature Granulocytes % (auto) 1.3 %; Lymphocytes # (auto) 2.77 K/uL (1.2-3.4); Lymphocytes % (auto) 21.8 %; Mean Corpuscular Hemoglobin 28.9 pg (25.0-34.0); Mean Corpuscular Hgb Conc 32.2 g/dL (32.0-36.0); Mean Corpuscular Volume 89.6 fL (80.0-100.0); Mean Platelet Volume 8.9 fL (9.4-12.4); Monocytes # (auto) 1.41 K/uL (0.11-0.59); Monocytes % (auto) 11.1 %; Neutrophils # (auto) 7.96 K/uL (1.40-6.50); Neutrophils % (auto) 62.8 %; Platelet Count 226 K/uL (130-400); RDW Coefficient of Variation 19.9 % (11.5-14.5); RDW Standard Deviation 64.9 fL (36.4-46.3); Red Blood Count 3.67 M/uL (4.70-6.10); White Blood Count 12.69 K/ul (4.8-10.8)
[2023-02-25 07:34] LABS: Est GFR (African American) 67.9 ml/min; Est GFR (Non-African American) 58.6 ml/min; Potassium 4.1 mmol/L (3.5-5.1)
[2023-02-25 07:35] LABS: Creatinine Clr Calc Pharmacy 85.9 ml/min
[2023-02-25] MEDS ORDERED: INSULIN HUMAN NPH SC SCH (08:00)
[2023-02-25] MEDS: INSULIN ASPART PER UNIT CHARGE SC SCH ×3 (08:11→17:15)
[2023-02-25] MEDS: FAMOTIDINE 20 MG TAB PO SCH (08:12)
[2023-02-25] MEDS: NYSTATIN POWDER 15GM BTL EXT SCH (08:12)
[2023-02-25] MEDS: PANTOprazole 40 MG TAB PO SCH (08:12)
[2023-02-25] MEDS: DOCUSATE SODIUM 100 MG CAP PO SCH (08:12)
[2023-02-25] MEDS: GABAPENTIN 600 MG TAB PO SCH (08:12)
[2023-02-25] MEDS: MULTIVITAMIN TAB PO SCH (08:13)
[2023-02-25] MEDS: POTASSIUM CHLORIDE 10 MEQ TABCR PO SCH ×2 (08:13→17:17)
[2023-02-25] MEDS: ADVANCED PROBIOTIC 1250 MG CAPSULE PO SCH (08:13)
[2023-02-25] MEDS: levETIRAcetam 250 MG TAB PO SCH (08:13)
[2023-02-25] MEDS: METOPROLOL TARTRATE 25 MG TAB PO SCH (08:14)
[2023-02-25] MEDS: SPIRONOLACTONE 25 MG TAB PO SCH (08:14)
[2023-02-25] MEDS: FUROSEMIDE 40 MG TAB PO SCH ×2 (08:14→17:17)
[2023-02-25] MEDS: WARFARIN SOD 7.5 MG TAB PO SCH (15:57)
[2023-02-25 16:10] VITALS: BP 99/59; TEMP 99.6; O2SAT 94
[2023-02-25] MEDS: INSULIN HUMAN NPH SC SCH (17:15)
[2023-02-25 17:27] VITALS: PULSE 92
--- NOTE | 2023-02-26 17:29 | Discharge Summary ---
Date of Service February 26, 2023 Admission HPI Per Admitting Provider This is a 61yo F with a PMH of quadriplegia secondary to traumatic accident years ago, neurogenic bladder with suprapubic catheter, chronic stage IV decubitus ulcer over the past 10 years follows [facility] wound clinic, insulin-dependent T2DM, CKD stage III in setting of diabetic nephropathy, morbid obesity, HTN, seizure disorder, iron deficiency anemia, MGUS followed with hematology, history of VRE, depression, coagulation disorder on chronic Coumadin therapy who presents with diarrhea and more lethargy over the past few days. Was recently admittedfrom 02/09-02/19 for sacral wound as well as seizure like acti vity. Underwent debridement of sacral ulcer by Dr. Srivastava on 02/11/2023. [place] [facility] [place] with mention of possibly needing follow-up in a tertiary care for chronic wound in the future. Was discharged on 6 weeks of IV cefepime with midline in place per ID recommendation, with recommendation for 2- 4 wk ID follow-up. Noted to have seizure-like activity during previous admission and neurology recommended patient started on Depakote with plans for Keppra to be tapered after trough level of Depakote in 2 weeks after start date. However, patient stopped taking Depakote on 02/20 due to feelings of worsening lethargy but is still been taking Keppra. Presented to ED due to second episode of loose stool out of rectum noted this morning. Has an colostomy in place and usually does not have any output from rectum except for a few occurrences over the past few year. Denies any change in output out of ostomy and has formed stool today. Has had c diff infections in the past. Feels mentation has improved since discontinuation of Depakote. No fever, chills, headache, CP, SOB, N/V, abdominal pain. Martinez catheter in place. Is able to complete washing of upper body and feeling himself. Principal Diagnosis Diarrhea Discharge Exam Patient is laying comfortably in bed, no acute distress Breathing comfortably on room air, no wheezing/rhonchi/rales, no accessory muscle use Heart sounds are regular rate and rhythm Abdomen is soft, stool in stoma is soft and brown Discharge Data Allergies Allergy/AdvReac Type Severity Reaction Status Date / Time codeine Allergy Severe THROAT Verified 02/23/23 14:12 SWELLS latex Allergy Intermediate Hives Verified 02/23/23 14:12 piperacillin Allergy Intermediate Hives Verified 02/23/23 14:12 Sulfa (Sulfonamide Allergy Intermediate HIVES Verified 02/23/23 14:12 Antibiotics) tazobactam Allergy Intermediate Hives Verified 02/23/23 14:12 aztreonam Allergy Unknown unknown Verified 02/23/23 14:12 metoclopramide [From Reglan] AdvReac Intermediate lethargy Verified 02/23/23 14:12 Consultations 02/23/23 13:01 ED Decision to Admit Stat 02/23/23 15:10 Consult Neurology Routine 02/23/23 16:40 Consult General Surgery Routine Ordered Studies 02/23/23 09:42 CT Abd and Pelvis [CT abd pelvis IV con only] Stat Hospital Course (1) Severe sepsis: (2) Weakness: (3) Leukocytosis: (4) Sacral decubitus ulcer: (5) Left perineal ischial pressure ulcer: (6) Diarrhea: (7) Diplegia of lower extremities: (8) Anemia: (9) Current use of retirement anticoagulation: (10) Nocturnal hypoxia: (11) CKD (chronic kidney disease), stage III: (12) Morbid obesity: (13) Neurogenic bladder: Plan This is a 61yo F with a PMH of quadriplegia secondary to traumatic accident years ago, neurogenic bladder with suprapubic catheter, chronic stage IV decubitus ulcer over the past 10 years follows [facility] wound clinic, insulin-dependent T2DM, CKD stage III in setting of diabetic nephropathy, morbid obesity, HTN, seizure disorder, iron deficiency anemia, MGUS followed with hematology, history of VRE, depression, coagulation disorder on chronic Coumadin therapy who presents with diarrhea and more lethargy over the past few days. Sepsis POA:infected sacral ulcer, leukocytosis and tachycardia. Lactate pending Stage IV decubitus ulcer Left ischial wound Recently admittedfrom 02/09-02/19 for worsening of chronic sacral wound Underwent debridement of sacral ulcer by Dr. Srivastava on 02/11/2023 [place] [facility] [place] with mention of possibly needing follow-up in a tertiary care for chronic wound in the future Discharged on 6 weeks of IV cefepime with midline in place per ID recommendation, with recommendation for 2-4 wk ID follow-up CT abd/pelvis 02/23 with redemonstration of a sacral decubitus ulcer with associated soft tissue thickening and a small amount of soft tissue gas suggestive of cellulitis and phlegmon. No drainable fluid collection to suggest abscess. Erosion of the coccyx and sacrum, similar to CT of February 09, 2023. This represents acute to subacute osteomyelitis of the lower sacrum Continue regimen of IV Cefepime, wound care, repositioning Evaluated by surgery, no plans for surgical intervention. Continue wound care Diarrhea Stool studies negative No further diarrhea while here Suprapubic cath 2/2 neurogenic bladder - Martinez in place, history of recurrent UTIs Seizure disorder Patient self discontinued depakote due to intolerance. Seen by Neurology here and recommend Keppra be increased to 750mg BID Insulin-dependent T2DM A1c of 6.9 in February 2023 Insulin managed by pharmacy here, resume home regimen at discharge Chronic anticoagulation 2/2 coagulation disorder INR 2.9, continued on home warfarin dose while here Chronic quadriplegia 2/2 traumatic accident Continue supportive care DVT prophylaxis: coumadin Dispo: Discharged to home with and services Code status: FULL Home Health Attestation I certify that this patient is under my care and that I, or a physicians clinic assistant working with me, had a face to-face encounter that meets the home health [id number] encounter requirements with this patient. The encounter with the patient was in whole, or in part, for the following medical condition, which is the primary reason for home health care (list medical condition): I certify that, based on my findings, the following services are medically necessary home health services: My clinical findings support the need for the above services because: Further, I certify that my clinical findings support that this patient is homebound (i.e. absences from home require considerable and taxing effort and are for medical reasons or samaritan services or infrequently or of short duration when for other reasons) because: Certification for Home Health Services: Based on the above findings, I certify that this patient is confined to the home and needs intermittent nursing home care, physical therapy and/or speech therapy or continues to need occupational therapy. The patient is under my care, and I have initiated the establishment of the plan of care. This patient will be followed by a physician who will periodically review the plan of care. Total Time Total Time Spent Total Time Spent (In Minutes): 40 Discharge Plan Discharge Items Patient Disposition: Home - Home Health Services Reason For Visit: DIARRHEA, SACRAL AND GLUTEAL WOUND Discharge Diagnosis: Diarrhea, resolved Condition on Discharge: Good Activity: Resume your previous activity Non-emergency contact: Primary Care Provider Call non-emergency contact if: you have any medication questions Follow-up/Referrals: Wilder Stanford MD [Primary Care Provider] - (Date & Time 03/03/2023 3:00 PM Provider Wilder Stanford MD Department Family Medicine [facility] *Please note that the previously scheduled appt on 03/01@12:40 has been cancelled.* ) Diet: Carb Consistent or DM2 Addtl Attending Provider Instructions: You were admitted for loose stools. Your stools have since firmed up, no diarrhea here Your stool studies were negative for C diff or other infection You were seen by surgery here and recommended to continue wound care for your sacral ulcer No changes to your medications Pending Studies at Discharge: No Stand-Alone Forms: My [email or web address], Smoking Cessation Medications and DC Order Prescriptions: New levetiracetam [Keppra] 750 mg tablet 750 mg PO BID Qty: 60 1RF Continued warfarin 5 mg tablet 5 mg PO 4XWK Rx Instructions: MON/WED/FRI/SAT escitalopram oxalate 20 mg tablet 20 mg PO QAM Novolin 70/30 U-100 Insulin 100 unit/mL (70-30) suspension 64 unit subcut BIDM allopurinol 100 mg Tablet 100 mg PO BID Rx Instructions: TAKES AT 0600 & 1800 ropinirole 1 mg Tablet 1 mg PO QID Rx Instructions: TAKES AT 0600, 1200, 1800, 2400 pantoprazole 40 mg Tablet,Delayed Release (Dr/Ec) 40 mg PO BID magnesium oxide 400 mg (241.3 mg magnesium) Tablet 400 mg PO AMHS Rx Instructions: TAKES AT 1200 & 2400 baclofen 10 mg tablet See Rx Instructions .ROUTE .COMPLEX Rx Instructions: 5mg three times a day at 0600, 1200, 1800; and then 10mg at HS (00:00midnight) cyclobenzaprine 10 mg tablet 15 mg PO HS Rx Instructions: TAKE 1 &1/2 TABS AT 2400 hyoscyamine sulfate 0.125 mg tablet 0.125 mg PO QPM tizanidine 4 mg tablet 4 mg PO BID Rx Instructions: TAKES AT 1200 & 2400 potassium chloride 10 mEq tablet extended release 10 meq PO BIDM Rx Instructions: take with breakfast and dinner Medical Marijuana 6 drp PO PM methenamine hippurate 1 gram Tablet 1 g PO BID 30 Days Qty: 60 2RF Rx Instructions: TAKES AT 1200 & 2400 famotidine [Acid Tufter Hand (famotidine)] 20 mg Tablet 20 mg PO BID ascorbic acid (vitamin C) [Vitamin C] 500 mg Tablet 250 mg PO TID Rx Instructions: TAKES AT 0600, 1200 & 1800 Lactobacillus acidoph-L.bulgar [Floranex] 1 million cell Tablet 1 tab PO BID nystatin 100,000 unit/gram Powder 1 applic TOPICAL BID Novolin R Regular U-100 Insuln 100 unit/mL Solution See Rx Instructions .ROUTE .COMPLEX Rx Instructions: follow SSI ;TAKES 4 UNITS BEFORE MEALS IF NEEDED. menthol-zinc oxide [Calmoseptine] 0.44-20.6 % Ointment 1 applic TOPICAL QID PRN (Reason: Rash) atorvastatin 40 mg tablet 40 mg PO HS Hold Instructions: Resume on 02/24/23. docusate sodium 100 mg Capsule 100 mg PO AMHS metformin 1,000 mg tablet 1,000 mg PO BIDM levothyroxine 25 mcg tablet 25 mcg PO DAILYBB ketoconazole 2 % shampoo 1 applic TOPICAL 2XWK Rx Instructions: wash scalp spironolactone 25 mg Tablet 25 mg PO QAM nystatin-triamcinolone 100,000-0.1 unit/g-% cream 1 applic TOPICAL BID PRN (Reason: Rash) Rx Instructions: apply to affected area multivitamin [Daily-Steve] Tablet 1 tab PO DAILY tacrolimus 0.1 % Ointment 1 applic TOPICAL BID Rx Instructions: apply to face,ears and scalp warfarin 7.5 mg Tablet 7.5 mg PO 3XWK Rx Instructions: SUN/TUES/THUS furosemide 40 mg Tablet 40 mg PO BID17 gabapentin 600 mg Tablet 600 mg PO BID metoprolol tartrate 25 mg Tablet 12.5 mg PO QAM Qty: 15 0RF cefepime 2 gram recon soln 2 g IV Q8H Qty: 35 0RF Rx Instructions: total 6 weeks therapy. Start Date 02/12/23 - End Date 03/26/23 Discontinued levetiracetam 500 mg tablet 500 mg PO AMHS Discharge Orders: Discharge Order (Routine); Ordered 02/25/23 Ordered By: Rossy Clifford Admission Data Admit Date/Time: 02/23/23 13:05 Attending Provider: Rossy Clifford Admit Provider: Maureen Coppola Primary Care Provider: Wilder Stanford Other Providers: Maureen Coppola ; Jazzmine Munoz Other Interventions: Discharge Summary Assessment (RN) Last Done: 02/25/23 17:27
== END 2023-02-25 20:10 | disposition home health service (06) | DRG 871 ==
LOC: ED 09:33 → SUATTDRO 13:05 → 2E 13:05

== ENCOUNTER 2023-03-03 19:58 | Inpatient (IN) ==
[2023-03-03 21:49] LABS: Basophils % (auto) 0.6 %; Eosinophils % (auto) 2.9 %; Hematocrit (blood only) 34.7 % (42.0-52.0); Immature Granulocytes # (auto) 0.11 K/uL (0.01-0.20); Immature Granulocytes % (auto) 0.6 %; Lymphocytes # (auto) 2.37 K/uL (1.2-3.4); Lymphocytes % (auto) 13.8 %; Mean Corpuscular Hemoglobin 29.2 pg (25.0-34.0); Mean Corpuscular Hgb Conc 31.7 g/dL (32.0-36.0); Mean Platelet Volume 9.8 fL (9.4-12.4); Monocytes # (auto) 0.99 K/uL (0.11-0.59); Monocytes % (auto) 5.8 %; Neutrophils # (auto) 13.07 K/uL (1.40-6.50); Neutrophils % (auto) 76.3 %; Platelet Count 223 K/uL (130-400); RDW Standard Deviation 64.8 fL (36.4-46.3); Red Blood Count 3.77 M/uL (4.70-6.10); White Blood Count 17.14 K/ul (4.8-10.8)
[2023-03-03] MEDS ORDERED: SODIUM CHLORIDE 0.9% 1000ML 500 ML IV ONE ×2 (21:49→22:09)
[2023-03-03] MEDS ORDERED: CEFEPIME 2,000 MG/20 ML VIAL IV STA (22:09)
[2023-03-03 22:10] LABS: Albumin Globulin Ratio 0.7 (0.9-2); Albumin Level 3.3 gm/dl (3.4-5.0); BUN Creatinine Ratio 22.3 (10-20); Bilirubin,Total 0.4 mg/dl (0.2-1.0); Calcium 8.8 mg/dl (8.6-10.3); Creatinine Clr Calc Pharmacy 43.6 ml/min; Est GFR (African American) 29.7 ml/min; Est GFR (Non-African American) 25.6 ml/min; Globulin 4.5 gm/dl (2.5-4.0); Potassium 4.4 mmol/L (3.5-5.1); Total Protein 7.8 gm/dl (6.0-8.3)
[2023-03-03] MEDS ORDERED: SODIUM CHLORIDE 0.9% 1000ML 1,000 ML IV ONE (22:30)
[2023-03-03 22:33] LABS: INR 3.4 (0.9-1.1); Partial Thromboplastin Ratio 2.2; Prothrombin Time 34.8 Seconds (9.0-12.0)
[2023-03-03 22:36] LABS: Troponin I High Sensitivity 8.7 pg/ml (0-20)
--- NOTE | 2023-03-03 22:42 | Emergency Department Note ---
Impression & Plan Altered mental status, Leukocytosis, ROBERT (acute kidney injury), Acute dehydration, Pneumonia, Chronic incomplete quadriplegia ED Provider Note NAME: ANTWAN GONSALES JR AGE: 62 SEX: M : 1960 ARRIVES VIA: Ambulance INFORMANT: [Patient][family] ED PROVIDER(S): [José Cheema MD] CHIEF COMPLAINT: Altered mental status HISTORY OF PRESENT ILLNESS: The patient is a 62-year-old male with a complicated past history. He is an incomplete quadriplegic. The patient has a large sacral ulcer which is infected. He has some acute on chronic osteomyelitis. He is on cefepime 3 times a day, next dose due around 11 PM. The patient was discharged from our hospital about 6 days ago. Since discharge, he has had difficulty with his mentation, he has been altered and confused and even hallucinating at times. The patient is not eating or drinking well, there is concern for dehydration. No fever. No complaints of pain. Patient does admit to a mild cough. He is not short of breath. PMHx/PSHx: See Below SOCIAL HISTORY: See Below. PHYSICAL EXAM: GENERAL: Patient is in no acute distress. HEENT: No acute trauma, normocephalic atraumatic, mucous membranes dry, no nasal congestion. NECK: No stridor, no adenopathy, no meningismus, trachea is midline. LUNGS: Clear to auscultation bilaterally when listening anterior, no wheeze, no rhonchi, breath sounds equal. HEART: Subtle systolic murmur, regular rate and rhythm ABDOMEN: Soft, nontender, bowel sounds positive, no peritonitis. Colostomy on the left with stool in the bag. He is obese. A suprapubic catheter is noted. EXTREMITIES: No cyanosis or edema. Protective boots present on both lower extremities. NEUROLOGIC: Quite somnolent, some movement of the upper extremities, no lower extremity movement. SKIN: No rash, no jaundice, no diaphoresis. DIFFERENTIAL DIAGNOSIS: Sepsis or bacteremia, dehydration, renal or liver failure, intracranial bleeding, medication reaction, among others. EMERGENCY DEPARTMENT COURSE/PROCEDURES: Prior/Outside records reviewed: Recent discharge summary. ECG per my interpretation: Indication was confusion. The ECG shows a normal sinus rhythm with a rate of 72. There is a right bundle branch block. There is no ST elevation, no PVCs. QTc is 501. Compared to an ECG from 24 February 2023, I see no significant change. Continuous Cardiac Monitoring per my interpretation: An order was placed for continuous cardiac monitoring. The monitor shows a rate of 77 with normal sinus rhythm. Critical Care Note: I have personally spent 55 minutes of critical care time in the direct management of this patient. This includes bedside care, interpretation of diagnostic studies, and testing, discussion with consultants, patient, and family members, and other required patient management activities. This 55 minutes is in excess of all separately billable procedures. MEDICAL DECISION MAKING: There is a moderate leukocytosis. The patient's white count is higher than recent testing, this may indicate worsening infection. Patient is anemic although this appears baseline. There was a normal platelet count. INR was elevated at 3.4, consistent with his Coumadin use-he is slightly over anticoagulated. ABG does show some CO2 retention with a value of 61. Renal panel testing does show some acute kidney injury with a creatinine of 2.56. Lactic acid level was not not elevated making severe sepsis less likely. No concerning liver enzyme elevation. Ammonia level was not elevated. ECG showed a normal sinus rhythm, no ischemia. Cardiac enzyme testing x1 was not consistent with acute cardiac injury. COVID test returned negative. Brain CT showed no acute bleed or mass effect. Chest x-ray per my review shows a potential left base infiltrate. Chest CT confirms a left base infiltrate. The patient was given his usual dose of IV cefepime, 2 g. He was due for this medication. He received 2 L of IV saline for hydration. I spoke with the patient about his findings, I spoke with his family. The patient does qualify for hospitalization. Case management has been consulted, I did speak with the on-call hospitalist. In short, the patient has findings which could explain his altered mental state. He appears to have a new pneumonia, there is some CO2 retention, he is in acute renal failure and dehydrated. DISPOSITION: Patient presentation and findings warrant a hospital stay. Past Med/Surg History Medical History Anemia Asymptomatic bacteriuria Clostridium difficile infection (Unknown) CVA (cerebral vascular accident) DM type 2 (diabetes mellitus, type 2) Dyslipidemia Dysphagia Elevated lactic acid level Fever History of blood clots History of DVT (deep vein thrombosis) Hypertension Hypotension Ileus Kidney disease Lethargy Leukocytosis Major depressive disorder, recurrent Morbid obesity Obesity Occluded PICC line Positive urine culture Quadriplegia BRAIN INJURY 11 YRS AGO Quadriplegia Sacral decubitus ulcer, stage IV Sacral wound Seizure Seizure-like activity Sepsis SIRS (systemic inflammatory response syndrome) Sleep apnea (Unknown) OXYGEN 2L/MIN NC HS Syncope 57 year old with know quadriplegia and new onset syncope with change in position UTI (urinary tract infection) RECENT [facility] ADMISION-D/C 12/06/20 Weakness Surgical History Chronic suprapubic catheter History of colonoscopy 2010 History of open reduction and internal fixation (ORIF) procedure LEFT FEMUR Insertion of inferior vena caval filter (Unknown) Lithotripsy (Unknown) "laser lithotripsy left ureteral stone 03/17/11 " S/P debridement (09/06/21) Incision and Drainage and Debridement Sacral Tissue Down to Bone, 15cm x 11cm - Agusto Chaudhry, DO 09/06/21 S/P debridement (09/08/21) Excisional Debridement of Sacral Decubitus Ulcer, [id number] Down to Bone - Agusto Chaudhry, DO 09/08/2021. Patient made ASA 4. Ketamine/versed/fentanyl sedation. Tolerated without incident. S/P debridement S/P debridement (02/11/23) Debridement of sacral ulcer. Dr. Srivastava S/P knee surgery S/P tonsillectomy Suprapubic cystostomy (Unknown) IN PLACE Family History Mother , age 47 of cervical cancer Family history of diabetes mellitus Cervical cancer Father , age 85 of heart disease Family hx of colon cancer Heart disease Other No pertinent family history Social History Smoking Status: Never smoker Second Hand Exposure: No; Do You Dip or Chew Tobacco: No; Hx Alcohol Use: No Hx Substance Use: Yes Non-Prescribed Medications: Marijuana Last Used Substance: Days (ago) Substance Use Type Other:: medical marijuana Preferred Language: Belarusian Communication Ability: Effective Visual Impairment: No Limitations Dobby Loom Chain Pegger Required: No Beliefs That Will Affect Care: None marital status: Current Living Situation: Spouse Current Living Situation Comment: pt lives with his current occupational status: disabled 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 Feels Safe at Home: Yes Physical Activity Frequency Comment: QUADRAPLEGIA C4-5-ABLE TO MOVE ARMS, HANDS Assistive Devices: Hospital Bed, Mechanical Lift, Oxygen - Continuous, Wheelchair and Other Allergies Allergies Allergy/AdvReac Type Severity Reaction Status Date / Time codeine Allergy Severe THROAT Verified 02/23/23 14:12 SWELLS latex Allergy Intermediate Hives Verified 02/23/23 14:12 piperacillin Allergy Intermediate Hives Verified 02/23/23 14:12 Sulfa (Sulfonamide Allergy Intermediate HIVES Verified 02/23/23 14:12 Antibiotics) tazobactam Allergy Intermediate Hives Verified 02/23/23 14:12 aztreonam Allergy Unknown unknown Verified 02/23/23 14:12 metoclopramide [From Reglan] AdvReac Intermediate lethargy Verified 02/23/23 14:12 Home Meds Home Medications Medication Instructions Recorded Confirmed allopurinol 100 mg tablet 100 mg PO BID 05/07/18 03/03/23 magnesium oxide 400 mg (241.3 mg 400 mg PO AMHS 05/07/18 03/03/23 magnesium) tablet pantoprazole 40 mg tablet,delayed 40 mg PO BID 05/07/18 03/03/23 release ropinirole 1 mg tablet 1 mg PO QID 05/07/18 03/03/23 escitalopram oxalate 20 mg tablet 20 mg PO QAM 08/21/19 03/03/23 insulin human U-100 NPH-regulr 64 unit subcut BIDM 08/21/19 03/03/23 70-30 mix 100 unit/mL subcutaneous susp (Novolin 70/30 U-100 Insulin) warfarin 5 mg tablet 5 mg PO 4XWK 08/21/19 03/03/23 baclofen 10 mg tablet See Rx Instructions .Route .COMPLEX 09/22/19 03/03/23 cyclobenzaprine 10 mg tablet 15 mg PO HS 03/01/20 03/03/23 hyoscyamine sulfate 0.125 mg tablet 0.125 mg PO QPM 03/01/20 03/03/23 potassium chloride 10 mEq 10 meq PO BIDM 03/01/20 03/03/23 tablet,extended release tizanidine 4 mg tablet 4 mg PO BID 03/01/20 03/03/23 Medical Marijuana 6 drp PO PM 03/26/20 03/03/23 ascorbic acid (vitamin C) 500 mg 250 mg PO TID 12/03/20 03/03/23 tablet (Vitamin C) famotidine 20 mg tablet (Acid 20 mg PO BID 12/03/20 03/03/23 Box Bender (famotidine)) Lactobacillus acidoph-L.bulgaricus 1 tab PO BID 01/03/21 03/03/23 1 million cell tablet (Floranex) insulin regular human 100 unit/mL See Rx Instructions .Route .COMPLEX 01/03/21 03/03/23 injection solution (Novolin R Regular U-100 Insulin) menthol 0.44 %-zinc oxide 20.6 % 1 applic topical QID PRN Rash 01/03/21 03/03/23 topical ointment (Calmoseptine) nystatin 100,000 unit/gram topical 1 applic topical BID 01/03/21 03/03/23 powder metformin 1,000 mg tablet 1,000 mg PO BIDM 06/14/21 03/03/23 atorvastatin 40 mg tablet 40 mg PO HS 12/31/21 03/03/23 docusate sodium 100 mg capsule 100 mg PO AMHS 12/31/21 03/03/23 levothyroxine 25 mcg tablet 25 mcg PO DAILYBB 02/12/22 03/03/23 ketoconazole 2 % shampoo 1 applic topical 2XWK 05/22/22 03/03/23 nystatin-triamcinolone 100,000 1 applic topical BID PRN Rash 05/22/22 03/03/23 unit/g-0.1 % topical cream spironolactone 25 mg tablet 25 mg PO QAM 05/22/22 03/03/23 tacrolimus 0.1 % topical ointment 1 applic topical BID 05/22/22 03/03/23 furosemide 40 mg tablet 40 mg PO BID17 02/09/23 03/03/23 gabapentin 600 mg tablet 600 mg PO BID 02/09/23 03/03/23 warfarin 7.5 mg tablet 7.5 mg PO 3XWK 02/09/23 03/03/23 cefdinir 300 mg capsule 300 mg PO UD 03/03/23 03/03/23 Previous Rx's Medication Instructions Recorded methenamine hippurate 1 gram tablet 1 g PO BID 30 days #60 tabs 04/02/20 cefepime 2 gram solution for 2 g IV Q8H #35 ea 02/19/23 injection metoprolol tartrate 25 mg tablet 12.5 mg PO QAM #15 tabs 02/19/23 levetiracetam 750 mg tablet 750 mg PO BID #60 tabs 02/26/23 (Warren) Results & Data (ED) Vital Signs Vital Signs - 24 hr 03/03/23 20:01 03/03/23 20:23 03/03/23 20:30 Temperature 36.8 C Temperature Source Oral Pulse Rate 76 73 73 Pulse Rate from SpO2 Sensor Pulse Rhythm Regular Pulse Strength Normal Respiratory Rate 18 15 15 Respiratory Effort / Characteristics Non-Labored Respiratory Depth Normal Respiratory Pattern Regular Blood Pressure 136/74 Blood Pressure Mean 94 Pulse Oximetry 97 Oxygen Delivery Method Room Air Sepsis Recent Fever Within 48 Hours No Sepsis New/Unexplained Change in Mental Status Yes Sepsis Action Taken by Nursing No Action Required 03/03/23 20:22 03/03/23 20:45 03/03/23 21:00 Temperature Temperature Source Pulse Rate 72 71 66 Pulse Rate from SpO2 Sensor 67 Pulse Rhythm Pulse Strength Respiratory Rate 14 13 Respiratory Effort / Characteristics Respiratory Depth Respiratory Pattern Blood Pressure 130/70 134/74 Blood Pressure Mean 90 94 Pulse Oximetry 98 Oxygen Delivery Method Sepsis Recent Fever Within 48 Hours Sepsis New/Unexplained Change in Mental Status Sepsis Action Taken by Nursing 03/03/23 21:30 03/03/23 22:00 03/03/23 22:30 Temperature Temperature Source Pulse Rate 70 77 Pulse Rate from SpO2 Sensor 70 76 Pulse Rhythm Pulse Strength Respiratory Rate 15 17 15 Respiratory Effort / Characteristics Respiratory Depth Respiratory Pattern Blood Pressure 128/79 130/82 100/67 Blood Pressure Mean 95 98 78 Pulse Oximetry 99 92 Oxygen Delivery Method Sepsis Recent Fever Within 48 Hours Sepsis New/Unexplained Change in Mental Status Sepsis Action Taken by Nursing 03/03/23 23:00 03/04/23 00:01 03/04/23 00:17 Temperature Temperature Source Pulse Rate 73 77 Pulse Rate from SpO2 Sensor 77 77 Pulse Rhythm Pulse Strength Respiratory Rate 15 13 Respiratory Effort / Characteristics Respiratory Depth Respiratory Pattern Blood Pressure 133/76 90/56 L Blood Pressure Mean 95 67 Pulse Oximetry 98 98 Oxygen Delivery Method Sepsis Recent Fever Within 48 Hours Sepsis New/Unexplained Change in Mental Status Sepsis Action Taken by Half-Way Medications Current Medication List: was personally reviewed by ga Laboratory Data Attestation: I reviewed the patient's lab results. 03/03/23 20:19 03/03/23 20:19 Lab Results 03/03/23 03/03/23 03/03/23 Range/Units 20:19 20:19 20:19 WBC 17.14 H (4.8-10.8) K/ul RBC 3.77 L (4.70-6.10) M/uL Hgb 11.0 L (14.0-18.0) g/dl Hct 34.7 L (42.0-52.0) % MCV 92.0 (80.0-100.0) fL MCH 29.2 (25.0-34.0) pg MCHC 31.7 L (32.0-36.0) g/dL RDW Std Deviation 64.8 H (36.4-46.3) fL RDW Coeff of Yoseph 19.0 H (11.5-14.5) % Plt Count 223 (130-400) K/uL MPV 9.8 (9.4-12.4) fL Immature Gran % (Auto) 0.6 % Neut % (Auto) 76.3 % Lymph % (Auto) 13.8 % [place] % (Auto) 5.8 % Eos % (Auto) 2.9 % Baso % (Auto) 0.6 % Neut # (Auto) 13.07 H (1.40-6.50) K/uL Lymph # (Auto) 2.37 (1.2-3.4) K/uL [place] # (Auto) 0.99 H (0.11-0.59) K/uL Eos # (Auto) 0.50 (0-0.50) K/uL Baso # (Auto) 0.10 (0-0.2) K/uL Immature Gran # (Auto) 0.11 (0.01-0.20) K/uL PT 34.8 H (9.0-12.0) Seconds INR 3.4 H (0.9-1.1) APTT 63.2 H* (21.0-31.0) Seconds PTT Ratio 2.2 ABG pH (7.35-7.45) ABG pCO2 (35-46) mmHg ABG pO2 (80-95) mmHg ABG HCO3 (19-24) mmol/L ABG O2 Saturation (90-95) % ABG Base Excess (-9-1.8) mEq/L Francis Test (Pos) Oxygen Given Sodium 136 (136-145) mmol/L Potassium 4.4 (3.5-5.1) mmol/L Chloride 96 L (98-107) mmol/L Carbon Dioxide 31 (21-32) mmol/L Anion Gap 9 (3-11) BUN 57 H (6-23) mg/dl Creatinine 2.56 H (0.6-1.4) mg/dl Est Cr Clr Drug Dosing 43.6 ml/min Est GFR ( Amer) 29.7 ml/min Est GFR (Non-Af Amer) 25.6 ml/min BUN/Creatinine Ratio 22.3 H (10-20) Glucose 88 (70-99(Fasting)) mg/dl Lactate (0.4-2.0) mmol/L Calcium 8.8 (8.6-10.3) mg/dl Magnesium 2.0 (1.7-2.4) mg/dl Total Bilirubin 0.4 (0.2-1.0) mg/dl AST 14 (13-39) U/L ALT 11 (7-52) U/L Alkaline Phosphatase 54 (34-104) U/L Ammonia (18-72) umol/L Troponin I High Sens 8.7 (0-20) pg/ml Total Protein 7.8 (6.0-8.3) gm/dl Albumin 3.3 L (3.4-5.0) gm/dl Globulin 4.5 H (2.5-4.0) gm/dl Albumin/Globulin Ratio 0.7 L (0.9-2) SARS-CoV-2, RNA, NAAT (NEGATIVE) 03/03/23 03/03/23 03/03/23 Range/Units 22:24 22:50 22:56 WBC (4.8-10.8) K/ul RBC (4.70-6.10) M/uL Hgb (14.0-18.0) g/dl Hct (42.0-52.0) % MCV (80.0-100.0) fL MCH (25.0-34.0) pg MCHC (32.0-36.0) g/dL RDW Std Deviation (36.4-46.3) fL RDW Coeff of Yoseph (11.5-14.5) % Plt Count (130-400) K/uL MPV (9.4-12.4) fL Immature Gran % (Auto) % Neut % (Auto) % Lymph % (Auto) % [place] % (Auto) % Eos % (Auto) % Baso % (Auto) % Neut # (Auto) (1.40-6.50) K/uL Lymph # (Auto) (1.2-3.4) K/uL [place] # (Auto) (0.11-0.59) K/uL Eos # (Auto) (0-0.50) K/uL Baso # (Auto) (0-0.2) K/uL Immature Gran # (Auto) (0.01-0.20) K/uL PT (9.0-12.0) Seconds INR (0.9-1.1) APTT (21.0-31.0) Seconds PTT Ratio ABG pH 7.35 (7.35-7.45) ABG pCO2 61 H (35-46) mmHg ABG pO2 108 H (80-95) mmHg ABG HCO3 34 H (19-24) mmol/L ABG O2 Saturation 99.2 H (90-95) % ABG Base Excess 6.1 H (-9-1.8) mEq/L Francis Test Pos (Pos) Oxygen Given 3 L Sodium (136-145) mmol/L Potassium (3.5-5.1) mmol/L Chloride (98-107) mmol/L Carbon Dioxide (21-32) mmol/L Anion Gap (3-11) BUN (6-23) mg/dl Creatinine (0.6-1.4) mg/dl Est Cr Clr Drug Dosing ml/min Est GFR ( Amer) ml/min Est GFR (Non-Af Amer) ml/min BUN/Creatinine Ratio (10-20) Glucose (70-99(Fasting)) mg/dl Lactate (0.4-2.0) mmol/L Calcium (8.6-10.3) mg/dl Magnesium (1.7-2.4) mg/dl Total Bilirubin (0.2-1.0) mg/dl AST (13-39) U/L ALT (7-52) U/L Alkaline Phosphatase (34-104) U/L Ammonia 24.0 (18-72) umol/L Troponin I High Sens (0-20) pg/ml Total Protein (6.0-8.3) gm/dl Albumin (3.4-5.0) gm/dl Globulin (2.5-4.0) gm/dl Albumin/Globulin Ratio (0.9-2) SARS-CoV-2, RNA, NAAT NEGATIVE (NEGATIVE) 03/03/23 Range/Units 22:56 WBC (4.8-10.8) K/ul RBC (4.70-6.10) M/uL Hgb (14.0-18.0) g/dl Hct (42.0-52.0) % MCV (80.0-100.0) fL MCH (25.0-34.0) pg MCHC (32.0-36.0) g/dL RDW Std Deviation (36.4-46.3) fL RDW Coeff of Yoseph (11.5-14.5) % Plt Count (130-400) K/uL MPV (9.4-12.4) fL Immature Gran % (Auto) % Neut % (Auto) % Lymph % (Auto) % [place] % (Auto) % Eos % (Auto) % Baso % (Auto) % Neut # (Auto) (1.40-6.50) K/uL Lymph # (Auto) (1.2-3.4) K/uL [place] # (Auto) (0.11-0.59) K/uL Eos # (Auto) (0-0.50) K/uL Baso # (Auto) (0-0.2) K/uL Immature Gran # (Auto) (0.01-0.20) K/uL PT (9.0-12.0) Seconds INR (0.9-1.1) APTT (21.0-31.0) Seconds PTT Ratio ABG pH (7.35-7.45) ABG pCO2 (35-46) mmHg ABG pO2 (80-95) mmHg ABG HCO3 (19-24) mmol/L ABG O2 Saturation (90-95) % ABG Base Excess (-9-1.8) mEq/L Francis Test (Pos) Oxygen Given Sodium (136-145) mmol/L Potassium (3.5-5.1) mmol/L Chloride (98-107) mmol/L Carbon Dioxide (21-32) mmol/L Anion Gap (3-11) BUN (6-23) mg/dl Creatinine (0.6-1.4) mg/dl Est Cr Clr Drug Dosing ml/min Est GFR ( Amer) ml/min Est GFR (Non-Af Amer) ml/min BUN/Creatinine Ratio (10-20) Glucose (70-99(Fasting)) mg/dl Lactate 1.8 (0.4-2.0) mmol/L Calcium (8.6-10.3) mg/dl Magnesium (1.7-2.4) mg/dl Total Bilirubin (0.2-1.0) mg/dl AST (13-39) U/L ALT (7-52) U/L Alkaline Phosphatase (34-104) U/L Ammonia (18-72) umol/L Troponin I High Sens (0-20) pg/ml Total Protein (6.0-8.3) gm/dl Albumin (3.4-5.0) gm/dl Globulin (2.5-4.0) gm/dl Albumin/Globulin Ratio (0.9-2) SARS-CoV-2, RNA, NAAT (NEGATIVE) Administered Medications Discontinued Medications Sodium Chloride (Nss 1000ml) 500 mls @ 999 mls/hr IV .Q31M ONE Stop: 03/03/23 22:19 Last Infusion: 03/03/23 23:12 Dose: 0 mls/hr Documented By: Admin: 03/03/23 22:25 Dose: 999 mls/hr Documented By: AB Sodium Chloride (Nss 1000ml) 500 mls @ 999 mls/hr IV .Q31M ONE Stop: 03/03/23 22:39 Last Infusion: 03/03/23 23:12 Dose: 0 mls/hr Documented By: Admin: 03/03/23 22:25 Dose: 999 mls/hr Documented By: Cefepime HCl (Maxipime) 2,000 mg in 20 mls @ 5 mls/min IV NOW STA; Protocol Stop: 03/03/23 22:12 Last Admin: 06/28/23 23:08 Dose: 5 mls/min Documented By: ELHAM Sodium Chloride (Nss 1000ml) 1,000 mls @ 999 mls/hr IV .Q1H1M ONE Stop: 03/03/23 23:30 Last Admin: 03/03/23 23:10 Dose: 999 mls/hr Documented By: ELHAM Imaging Data Radiologist's Impression: Head CT 03/03/23 21:49 Exam(s): CT HEAD Without Contrast EXAM: CT Head Without Intravenous Contrast CLINICAL HISTORY: Reason for exam: delerium. TECHNIQUE: Axial computed tomography images of the head/brain without intravenous contrast. CTDI is 65.21 mGy and DLP is 1100.68 mGy-cm. Automated exposure control was utilized for the study. A dose lowering technique was utilized adhering to the principles of ALARA. COMPARISON: No relevant prior studies available. FINDINGS: Brain: Mild chronic periventricular ischemic demyelination changes seen due to small vessel disease. No hemorrhage. Ventricles: Unremarkable. No ventriculomegaly. Bones/joints: Unremarkable. No acute fracture. Soft tissues: Unremarkable. Sinuses: Unremarkable as visualized. No acute sinusitis. Mastoid air cells: Unremarkable as visualized. No mastoid effusion. IMPRESSION: No acute intracranial abnormality Electronically signed by: Abhishek Mane MD 03/03/23 22:[address] 03/03/23 22:55 Exam(s): CT CHEST Without Contrast EXAM: CT Chest Without Intravenous Contrast CLINICAL HISTORY: Reason for exam: poss pneumonia, quad. TECHNIQUE: Axial computed tomography images of the chest without intravenous contrast. CTDI is 38.1 mGy and DLP is 1230.28 mGy-cm. Automated exposure control was utilized for the study. A dose lowering technique was utilized adhering to the principles of ALARA. COMPARISON: Chest radiograph dated 03/03/23 FINDINGS: Lungs: Partial collapse of the left lower lobe with underlying infection not excluded. Pleural space: Unremarkable. No pneumothorax. No significant effusion. Heart: Mild cardiomegaly. Coronary vascular calcification. No significant pericardial effusion. Bones/joints: Prior left clamshell sternotomy with multiple broken sternotomy wires. Degenerative disease of the thoracolumbar spine. No dislocation. Soft tissues: Unremarkable. Vasculature: See above. Lymph nodes: Unremarkable. No enlarged lymph nodes. Other findings: Low level of inspiration. IMPRESSION: Partial collapse of the left lower lobe with underlying infection not excluded. Electronically signed by: Goldy Gutierrez MD 03/04/23 00:23 AM Discharge Plan Visit Data Chief Complaint: Altered Mental Status Stated Complaint: ALTERED LOC ED Provider: José Cheema Discharge Problem: Altered mental status, Leukocytosis, ROBERT (acute kidney injury), Acute dehydration, Pneumonia, Chronic incomplete quadriplegia Patient Disposition: Admitted As Inpatient Condition: Fair Forms Stand Alone Forms: [facility] [employer] Prescriptions Prescriptions: No Action warfarin 5 mg tablet 5 mg PO 4XWK Rx Instructions: WED/WED/WED/SAT escitalopram oxalate 20 mg tablet 20 mg PO QAM Novolin 70/30 U-100 Insulin 100 unit/mL (70-30) suspension 64 unit subcut BIDM allopurinol 100 mg Tablet 100 mg PO BID Rx Instructions: TAKES AT 0600 & 1800 ropinirole 1 mg Tablet 1 mg PO QID Rx Instructions: TAKES AT 0600, 1200, 1800, 2400 pantoprazole 40 mg Tablet,Delayed Release (Dr/Ec) 40 mg PO BID magnesium oxide 400 mg (241.3 mg magnesium) Tablet 400 mg PO AMHS Rx Instructions: TAKES AT 1200 & 2400 baclofen 10 mg tablet See Rx Instructions .ROUTE .COMPLEX Rx Instructions: 5mg three times a day at 0600, 1200, 1800; and then 10mg at HS (00:00midnight) cyclobenzaprine 10 mg tablet 15 mg PO HS Rx Instructions: TAKE 1 &1/2 TABS AT 2400 hyoscyamine sulfate 0.125 mg tablet 0.125 mg PO QPM tizanidine 4 mg tablet 4 mg PO BID Rx Instructions: TAKES AT 1200 & 2400 potassium chloride 10 mEq tablet extended release 10 meq PO BIDM Rx Instructions: take with breakfast and dinner Medical Marijuana 6 drp PO PM methenamine hippurate 1 gram Tablet 1 g PO BID 30 Days Qty: 60 2RF Rx Instructions: TAKES AT 1200 & 2400 famotidine [Acid Box Bender (famotidine)] 20 mg Tablet 20 mg PO BID ascorbic acid (vitamin C) [Vitamin C] 500 mg Tablet 250 mg PO TID Rx Instructions: TAKES AT 0600, 1200 & 1800 Lactobacillus acidoph-L.bulgar [Floranex] 1 million cell Tablet 1 tab PO BID nystatin 100,000 unit/gram Powder 1 applic TOPICAL BID Novolin R Regular U-100 Insuln 100 unit/mL Solution See Rx Instructions .ROUTE .COMPLEX Rx Instructions: follow SSI ;TAKES 4 UNITS BEFORE MEALS IF NEEDED. menthol-zinc oxide [Calmoseptine] 0.44-20.6 % Ointment 1 applic TOPICAL QID PRN (Reason: Rash) atorvastatin 40 mg tablet 40 mg PO HS Hold Instructions: Resume on 02/24/23. docusate sodium 100 mg Capsule 100 mg PO AMHS metformin 1,000 mg tablet 1,000 mg PO BIDM levothyroxine 25 mcg tablet 25 mcg PO DAILYBB ketoconazole 2 % shampoo 1 applic TOPICAL 2XWK Rx Instructions: wash scalp spironolactone 25 mg Tablet 25 mg PO QAM nystatin-triamcinolone 100,000-0.1 unit/g-% cream 1 applic TOPICAL BID PRN (Reason: Rash) Rx Instructions: apply to affected area tacrolimus 0.1 % Ointment 1 applic TOPICAL BID Rx Instructions: apply to face,ears and scalp warfarin 7.5 mg Tablet 7.5 mg PO 3XWK Rx Instructions: SUN/TUES/THUS furosemide 40 mg Tablet 40 mg PO BID17 gabapentin 600 mg Tablet 600 mg PO BID metoprolol tartrate 25 mg Tablet 12.5 mg PO QAM Qty: 15 0RF cefepime 2 gram recon soln 2 g IV Q8H Qty: 35 0RF Rx Instructions: total 6 weeks therapy. Start Date 02/12/23 - End Date 03/26/23 levetiracetam [Keppra] 750 mg tablet 750 mg PO BID Qty: 60 1RF cefdinir 300 mg Capsule 300 mg PO UD Rx Instructions: ordered bid but on hold now until finished with cefepime Referrals Referrals: Wilder Stanford MD [Primary Care Provider] -
[2023-03-03 22:54] LABS: Base Excess ABG 6.1 mEq/L (-9-1.8); HCO3 ABG 34 mmol/L (19-24); Oxygen Saturation ABG 99.2 % (90-95); PCO2 ABG 61 mmHg (35-46); PO2 ABG 108 mmHg (80-95); pH ABG 7.35 (7.35-7.45)
--- NOTE | 2023-03-03 22:54 | CT Scan Report ---
Exam(s): CT HEAD Without Contrast EXAM: CT Head Without Intravenous Contrast CLINICAL HISTORY: Reason for exam: delerium. TECHNIQUE: Axial computed tomography images of the head/brain without intravenous contrast. CTDI is 65.21 mGy and DLP is 1100.68 mGy-cm. Automated exposure control was utilized for the study. A dose lowering technique was utilized adhering to the principles of ALARA. COMPARISON: No relevant prior studies available. FINDINGS: Brain: Mild chronic periventricular ischemic demyelination changes seen due to small vessel disease. No hemorrhage. Ventricles: Unremarkable. No ventriculomegaly. Bones/joints: Unremarkable. No acute fracture. Soft tissues: Unremarkable. Sinuses: Unremarkable as visualized. No acute sinusitis. Mastoid air cells: Unremarkable as visualized. No mastoid effusion. IMPRESSION: No acute intracranial abnormality Electronically signed by: Abhishek Mane MD 03/03/23 22:53 PM
[2023-03-03 22:58] LABS: Allen Test Pos (Pos)
[2023-03-03 23:01] LABS: Partial Thromboplastin Time 63.2 Seconds (21.0-31.0)
--- NOTE | 2023-03-04 00:23 | CT Scan Report ---
Exam(s): CT CHEST Without Contrast EXAM: CT Chest Without Intravenous Contrast CLINICAL HISTORY: Reason for exam: poss pneumonia, quad. TECHNIQUE: Axial computed tomography images of the chest without intravenous contrast. CTDI is 38.1 mGy and DLP is 1230.28 mGy-cm. Automated exposure control was utilized for the study. A dose lowering technique was utilized adhering to the principles of ALARA. COMPARISON: Chest radiograph dated 03/03/23 FINDINGS: Lungs: Partial collapse of the left lower lobe with underlying infection not excluded. Pleural space: Unremarkable. No pneumothorax. No significant effusion. Heart: Mild cardiomegaly. Coronary vascular calcification. No significant pericardial effusion. Bones/joints: Prior left clamshell sternotomy with multiple broken sternotomy wires. Degenerative disease of the thoracolumbar spine. No dislocation. Soft tissues: Unremarkable. Vasculature: See above. Lymph nodes: Unremarkable. No enlarged lymph nodes. Other findings: Low level of inspiration. IMPRESSION: Partial collapse of the left lower lobe with underlying infection not excluded. Electronically signed by: Goldy Gutierrez MD 03/04/23 00:23 AM
[2023-03-04] MEDS ORDERED: ALBUMIN 25% 25 GM/100 ML VIAL IV STA (00:27)
[2023-03-04 00:54] LABS: Appearance Urine Slightly Cloudy (Clear); Bilirubin Urine Negative (Negative); Blood Urine 2+ (Negative); Color Urine Yellow; Glucose Urine UA Negative (Negative); Ketones Urine Negative (Negative); Leukocyte Esterase Urine 2+ (Negative); Nitrite Urine Negative (Negative); Protein Urine 2+ (Negative); Urobilinogen Urine Negative (Negative); pH Urine 5.5 (4.5-7.5)
[2023-03-04 01:12] LABS: Bacteria Urine 3+ (Negative); Epithelial Cell Urine 20-30 /lpf (0-5); RBC Urine 0-4 /hpf (0-4); WBC Urine >30 /hpf (0-5)
--- NOTE | 2023-03-04 01:39 | History & Physical Report ---
Date of Service March 04, 2023 Assessment & Plan (1) Encephalopathy: Plan: Multifactorial Hypercapnic respiratory failure, possible underlying OHS ? 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 hypertension, BP on the lower side DM2--insulin-requiring, will controlled as of recent hemoglobin A1c of 6.9 this month hyperlipidemia statin Rx Hypothyroidism, euthyroid as of last year's TSH history of DVT on anticoagulation, INR therapeutic chronic anemia, hemoglobin at baseline history of MRSA/VRE/MDR Pseudomonas, Medical telemetry BiPAP (One-to-one sitter required for quadriplegic patients on BiPAP to facilitate expedient mask removal if patient has emesis to prevent aspiration as per RT) recheck ABG May benefit from pulmonology evaluation. Urine CS, add daptomycin to current cefepime Rx given patient microbiologic history Monitor creatinine response to IVF, hold home diuretics until creatinine back to baseline, renal ultrasound if felt improvement Hold basal insulin for now given borderline hypoglycemia, ISS BG goal 1 10-1 40 DVT prophylaxis. INR between 2 and 3 Full code Patient's requesting updates providers. Ms. Rody Rodriguez, contact #[phone]. Total critical care time was 45 minutes. Text document was generated using [employer] voice recognition software. It may contain grammatical or spelling errors. Kindly contact undersigned for clarification of any documentation item in question. History of Present Illness Chief Complaint: Altered mental status as per records. Primary Care Provider: Wilder Stanford MD History obtained from patient, , and records. Limited history from patient secondary to disorientation. 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 dif, chronic sacral decubitus wounds/osteomyelitis status post recent debridement ongoing Cefepime course. Two [facility] confinements this month for sepsis secondary to infected sacral decubitus ulcer. No debridement during last confinement. Patient discharged on cefepime course last week. Keppra started for seizure disorder by Neurology due to valproic acid intolerance. Patient noted to be confused the last few days with hallucinations. Not eating a lot. No unusual cough, chest pain, SOB, abdominal pain, headache complaints. Patient brought to the ER for evaluation. MEDICAL HISTORY: As above. SURGICAL HISTORY: Kidney stone procedures, suprapubic catheter placement, neck surgery, IVC filter placement, ostomy/bowel surgery, vascular procedure, wound debridement procedures FAMILY HISTORY: DM, prostate cancer PERSONAL SOCIAL HISTORY: Nonsmoker. No chronic intake of alcoholic beverages. On disability. Allergies Allergy/AdvReac Type Severity Reaction Status Date / Time codeine Allergy Severe THROAT Verified 02/23/23 14:12 SWELLS latex Allergy Intermediate Hives Verified 02/23/23 14:12 piperacillin Allergy Intermediate Hives Verified 02/23/23 14:12 Sulfa (Sulfonamide Allergy Intermediate HIVES Verified 02/23/23 14:12 Antibiotics) tazobactam Allergy Intermediate Hives Verified 02/23/23 14:12 aztreonam Allergy Unknown unknown Verified 02/23/23 14:12 metoclopramide [From Reglan] AdvReac Intermediate lethargy Verified 02/23/23 14:12 Home Medications Medication Instructions Recorded Confirmed Type allopurinol 100 mg tablet 100 mg PO BID 05/07/18 03/03/23 History magnesium oxide 400 mg (241.3 mg 400 mg PO AMHS 05/07/18 03/03/23 History magnesium) tablet pantoprazole 40 mg tablet,delayed 40 mg PO BID 05/07/18 03/03/23 History release ropinirole 1 mg tablet 1 mg PO QID 05/07/18 03/03/23 History escitalopram oxalate 20 mg tablet 20 mg PO QAM 08/21/19 03/03/23 History insulin human U-100 NPH-regulr 64 unit subcut BIDM 08/21/19 03/03/23 History 70-30 mix 100 unit/mL subcutaneous susp (Novolin 70/30 U-100 Insulin) warfarin 5 mg tablet 5 mg PO 4XWK 08/21/19 03/03/23 History baclofen 10 mg tablet See Rx Instructions .Route .COMPLEX 09/22/19 03/03/23 History cyclobenzaprine 10 mg tablet 15 mg PO HS 03/01/20 03/03/23 History hyoscyamine sulfate 0.125 mg tablet 0.125 mg PO QPM 03/01/20 03/03/23 History potassium chloride 10 mEq 10 meq PO BIDM 03/01/20 03/03/23 History tablet,extended release tizanidine 4 mg tablet 4 mg PO BID 03/01/20 03/03/23 History Medical Marijuana 6 drp PO PM 03/26/20 03/03/23 History methenamine hippurate 1 gram tablet 1 g PO BID 30 days #60 tabs 04/02/20 03/03/23 Rx ascorbic acid (vitamin C) 500 mg 250 mg PO TID 12/03/20 03/03/23 History tablet (Vitamin C) famotidine 20 mg tablet (Acid 20 mg PO BID 12/03/20 03/03/23 History Jet Mechanic (famotidine)) Lactobacillus acidoph-L.bulgaricus 1 tab PO BID 01/03/21 03/03/23 History 1 million cell tablet (Floranex) insulin regular human 100 unit/mL See Rx Instructions .Route .COMPLEX 01/03/21 03/03/23 History injection solution (Novolin R Regular U-100 Insulin) menthol 0.44 %-zinc oxide 20.6 % 1 applic topical QID PRN Rash 01/03/21 03/03/23 History topical ointment (Calmoseptine) nystatin 100,000 unit/gram topical 1 applic topical BID 01/03/21 03/03/23 History powder metformin 1,000 mg tablet 1,000 mg PO BIDM 06/14/21 03/03/23 History atorvastatin 40 mg tablet 40 mg PO HS 12/31/21 03/03/23 History docusate sodium 100 mg capsule 100 mg PO AMHS 12/31/21 03/03/23 History levothyroxine 25 mcg tablet 25 mcg PO DAILYBB 02/12/22 03/03/23 History ketoconazole 2 % shampoo 1 applic topical 2XWK 05/22/22 03/03/23 History nystatin-triamcinolone 100,000 1 applic topical BID PRN Rash 05/22/22 03/03/23 History unit/g-0.1 % topical cream spironolactone 25 mg tablet 25 mg PO QAM 05/22/22 03/03/23 History tacrolimus 0.1 % topical ointment 1 applic topical BID 05/22/22 03/03/23 History furosemide 40 mg tablet 40 mg PO BID17 02/09/23 03/03/23 History gabapentin 600 mg tablet 600 mg PO BID 02/09/23 03/03/23 History warfarin 7.5 mg tablet 7.5 mg PO 3XWK 02/09/23 03/03/23 History cefepime 2 gram solution for 2 g IV Q8H #35 ea 02/19/23 03/03/23 Rx injection metoprolol tartrate 25 mg tablet 12.5 mg PO QAM #15 tabs 02/19/23 03/03/23 Rx levetiracetam 750 mg tablet 750 mg PO BID #60 tabs 02/26/23 03/03/23 Rx (Keppra) cefdinir 300 mg capsule 300 mg PO UD 03/03/23 03/03/23 History Past Med/Surg History Medical History Anemia Asymptomatic bacteriuria Clostridium difficile infection (Unknown) CVA (cerebral vascular accident) DM type 2 (diabetes mellitus, type 2) Dyslipidemia Dysphagia Elevated lactic acid level Fever History of blood clots History of DVT (deep vein thrombosis) Hypertension Hypotension Ileus Kidney disease Lethargy Leukocytosis Major depressive disorder, recurrent Morbid obesity Obesity Occluded PICC line Positive urine culture Quadriplegia BRAIN INJURY 11 YRS AGO Quadriplegia Sacral decubitus ulcer, stage IV Sacral wound Seizure Seizure-like activity Sepsis SIRS (systemic inflammatory response syndrome) Sleep apnea (Unknown) OXYGEN 2L/MIN NC HS Syncope 57 year old with know quadriplegia and new onset syncope with change in position UTI (urinary tract infection) RECENT [facility] ADMISION-D/C 12/06/20 Weakness Surgical History Chronic suprapubic catheter History of colonoscopy 2010 History of open reduction and internal fixation (ORIF) procedure LEFT FEMUR Insertion of inferior vena caval filter (Unknown) Lithotripsy (Unknown) "laser lithotripsy left ureteral stone 03/17/11 " S/P debridement (09/06/21) Incision and Drainage and Debridement Sacral Tissue Down to Bone, 15cm x 11cm - Agusto Chaudhry, DO 09/06/21 S/P debridement (09/08/21) Excisional Debridement of Sacral Decubitus Ulcer, [id number] Down to Bone - Agusto Chaudhry, DO 09/08/2021. Patient made ASA 4. Ketamine/versed/fentanyl sedation. Tolerated without incident. S/P debridement S/P debridement (02/11/23) Debridement of sacral ulcer. Dr. Srivastava S/P knee surgery S/P tonsillectomy Suprapubic cystostomy (Unknown) IN PLACE Family History Mother , age 47 of cervical cancer Family history of diabetes mellitus Cervical cancer Father , age 85 of heart disease Family hx of colon cancer Heart disease Other No pertinent family history Social History Smoking Status: Never smoker Second Hand Exposure: No; Do You Dip or Chew Tobacco: No; Tobacco Cessation Education Requested by Patient: No Hx Alcohol Use: No Hx Substance Use: No Preferred Language: Mohawk Communication Ability: Effective Visual Impairment: No Limitations New Business Clerk Required: No Beliefs That Will Affect Care: None marital status: Current Living Situation: Spouse Current Living Situation Comment: At home with . 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 Other Information That Helps Us Care for You: No Feels Safe at Home: Yes Safety Concerns: Feels Safe At This Time Physical Activity Frequency Comment: QUADRAPLEGIA C4-5-ABLE TO MOVE ARMS, HANDS Assistive Devices: BiPap Review of Systems Review of Systems: Could not be reliably obtained secondary to disorientation Physical Exam Physical Exam: GENERAL: Lethargic, morbidly obese, no respiratory distress SKIN: Pallor, warm HEENT: Pale palpebral conjunctivae, no ptosis, dry buccal mucosa NECK : Supple, short neck, no tenderness CHEST : Decreased breath sounds, no tenderness HEART : RRR, no obvious murmurs ABDOMEN: distention, nontender, ostomy noted EXTREMITIES : Minimal LE swelling, no LE tenderness, no other conspicuous deformities noted NEUROLOGIC : Lethargic, no facial asymmetry, quadriplegia Results & Data Results & Data Vital Signs (Past 12 Hours) Vital Signs Temp Pulse Resp BP Pulse Ox O2 Del Method 03/04/23 00:45 78 03/04/23 00:17 77 13 90/56 L 98 03/04/23 00:01 98 03/03/23 23:00 73 15 133/76 03/03/23 22:30 77 15 100/67 92 03/03/23 22:00 17 130/82 03/03/23 21:30 70 15 128/79 99 03/03/23 21:00 66 13 134/74 98 03/03/23 20:45 71 14 130/70 03/03/23 20:22 72 03/03/23 20:30 73 15 03/03/23 20:23 73 15 03/03/23 20:01 36.8 C 76 18 136/74 97 Room Air Laboratory Results Laboratory Results WBC 17.14 K/ul (4.8-10.8) H 03/03/23 20:19 RBC 3.77 M/uL (4.70-6.10) L 03/03/23 20:19 Hgb 11.0 g/dl (14.0-18.0) L 03/03/23 20:19 Hct 34.7 % (42.0-52.0) L 03/03/23 20:19 MCV 92.0 fL (80.0-100.0) 03/03/23 20:19 MCH 29.2 pg (25.0-34.0) 03/03/23 20:19 MCHC 31.7 g/dL (32.0-36.0) L 03/03/23 20:19 RDW Std Deviation 64.8 fL (36.4-46.3) H 03/03/23 20:19 RDW Coeff of Yoseph 19.0 % (11.5-14.5) H 03/03/23 20:19 Plt Count 223 K/uL (130-400) 03/03/23 20:19 MPV 9.8 fL (9.4-12.4) 03/03/23 20:19 Immature Gran % (Auto) 0.6 % 03/03/23 20:19 Neut % (Auto) 76.3 % 03/03/23 20:19 Lymph % (Auto) 13.8 % 03/03/23 20:19 [place] % (Auto) 5.8 % 03/03/23 20:19 Eos % (Auto) 2.9 % 03/03/23 20:19 Baso % (Auto) 0.6 % 03/03/23 20:19 Neut # (Auto) 13.07 K/uL (1.40-6.50) H 03/03/23 20:19 Lymph # (Auto) 2.37 K/uL (1.2-3.4) 03/03/23 20:19 [place] # (Auto) 0.99 K/uL (0.11-0.59) H 03/03/23 20:19 Eos # (Auto) 0.50 K/uL (0-0.50) 03/03/23 20:19 Baso # (Auto) 0.10 K/uL (0-0.2) 03/03/23 20:19 Immature Gran # (Auto) 0.11 K/uL (0.01-0.20) 03/03/23 20:19 PT 34.8 Seconds (9.0-12.0) H 03/03/23 20:19 INR 3.4 (0.9-1.1) H 03/03/23 20:19 APTT 63.2 Seconds (21.0-31.0) H* 03/03/23 20:19 PTT Ratio 2.2 03/03/23 20:19 ABG pH 7.35 (7.35-7.45) 03/03/23 22:50 ABG pCO2 61 mmHg (35-46) H 03/03/23 22:50 ABG pO2 108 mmHg (80-95) H 03/03/23 22:50 ABG HCO3 34 mmol/L (19-24) H 03/03/23 22:50 ABG O2 Saturation 99.2 % (90-95) H 03/03/23 22:50 ABG Base Excess 6.1 mEq/L (-9-1.8) H 03/03/23 22:50 Francis Test Pos (Pos) 03/03/23 22:50 Oxygen Given 3 L 03/03/23 22:50 Sodium 136 mmol/L (136-145) 03/03/23 20:19 Potassium 4.4 mmol/L (3.5-5.1) 03/03/23 20:19 Chloride 96 mmol/L (98-107) L 03/03/23 20:19 Carbon Dioxide 31 mmol/L (21-32) 03/03/23 20:19 Anion Gap 9 (3-11) 03/03/23 20:19 BUN 57 mg/dl (6-23) H 03/03/23 20:19 Creatinine 2.56 mg/dl (0.6-1.4) H 03/03/23 20:19 Est Cr Clr Drug Dosing 43.6 ml/min 03/03/23 20:19 Est GFR ( Amer) 29.7 ml/min 03/03/23 20:19 Est GFR (Non-Af Amer) 25.6 ml/min 03/03/23 20:19 BUN/Creatinine Ratio 22.3 (10-20) H 03/03/23 20:19 Glucose 88 mg/dl (70-99(Fasting)) 03/03/23 20:19 Lactate 1.8 mmol/L (0.4-2.0) 03/03/23 22:56 Calcium 8.8 mg/dl (8.6-10.3) 03/03/23 20:19 Magnesium 2.0 mg/dl (1.7-2.4) 03/03/23 20:19 Total Bilirubin 0.4 mg/dl (0.2-1.0) 03/03/23 20:19 AST 14 U/L (13-39) 03/03/23 20:19 ALT 11 U/L (7-52) 03/03/23 20:19 Alkaline Phosphatase 54 U/L (34-104) 03/03/23 20:19 Ammonia 24.0 umol/L (18-72) 03/03/23 22:56 Troponin I High Sens 8.7 pg/ml (0-20) 03/03/23 20:19 Total Protein 7.8 gm/dl (6.0-8.3) 03/03/23 20:19 Albumin 3.3 gm/dl (3.4-5.0) L 03/03/23 20:19 Globulin 4.5 gm/dl (2.5-4.0) H 03/03/23 20:19 Albumin/Globulin Ratio 0.7 (0.9-2) L 03/03/23 20:19 Urine Color Yellow 03/03/23 23:03 Urine Appearance Slightly Cloudy (Clear) 03/03/23 23:03 Urine pH 5.5 (4.5-7.5) 03/03/23 23:03 Ur Specific [place] 1.020 (1.000-1.030) 03/03/23 23:03 Urine Protein 2+ (Negative) H 03/03/23 23:03 Urine Glucose (UA) Negative (Negative) 03/03/23 23:03 Urine Ketones Negative (Negative) 03/03/23 23:03 Urine Blood 2+ (Negative) H 03/03/23 23:03 Urine Nitrite Negative (Negative) 03/03/23 23:03 Urine Bilirubin Negative (Negative) 03/03/23 23:03 Urine Urobilinogen Negative (Negative) 03/03/23 23:03 Ur Leukocyte Esterase 2+ (Negative) H 03/03/23 23:03 Urine RBC 0-4 /hpf (0-4) 03/03/23 23:03 Urine WBC >30 /hpf (0-5) H 03/03/23 23:03 Ur Epithelial Cells 20-30 /lpf (0-5) H 03/03/23 23:03 Urine Bacteria 3+ (Negative) H 03/03/23 23:03 Urine Yeast Present (None Prsent) A 03/03/23 23:03 SARS-CoV-2, RNA, NAAT NEGATIVE (NEGATIVE) 03/03/23 22:[address] 03/03/23 21:49 Exam(s): CT HEAD Without Contrast EXAM: CT Head Without Intravenous Contrast CLINICAL HISTORY: Reason for exam: delerium. TECHNIQUE: Axial computed tomography images of the head/brain without intravenous contrast. CTDI is 65.21 mGy and DLP is 1100.68 mGy-cm. Automated exposure control was utilized for the study. A dose lowering technique was utilized adhering to the principles of ALARA. COMPARISON: No relevant prior studies available. FINDINGS: Brain: Mild chronic periventricular ischemic demyelination changes seen due to small vessel disease. No hemorrhage. Ventricles: Unremarkable. No ventriculomegaly. Bones/joints: Unremarkable. No acute fracture. Soft tissues: Unremarkable. Sinuses: Unremarkable as visualized. No acute sinusitis. Mastoid air cells: Unremarkable as visualized. No mastoid effusion. IMPRESSION: No acute intracranial abnormality Electronically signed by: Abhishek Mane MD 03/03/23 22:[address] 03/03/23 22:55 Exam(s): CT CHEST Without Contrast EXAM: CT Chest Without Intravenous Contrast CLINICAL HISTORY: Reason for exam: poss pneumonia, quad. TECHNIQUE: Axial computed tomography images of the chest without intravenous contrast. CTDI is 38.1 mGy and DLP is 1230.28 mGy-cm. Automated exposure control was utilized for the study. A dose lowering technique was utilized adhering to the principles of ALARA. COMPARISON: Chest radiograph dated 03/03/23 FINDINGS: Lungs: Partial collapse of the left lower lobe with underlying infection not excluded. Pleural space: Unremarkable. No pneumothorax. No significant effusion. Heart: Mild cardiomegaly. Coronary vascular calcification. No significant pericardial effusion. Bones/joints: Prior left clamshell sternotomy with multiple broken sternotomy wires. Degenerative disease of the thoracolumbar spine. No dislocation. Soft tissues: Unremarkable. Vasculature: See above. Lymph nodes: Unremarkable. No enlarged lymph nodes. Other findings: Low level of inspiration. IMPRESSION: Partial collapse of the left lower lobe with underlying infection not excluded. Electronically signed by: Goldy Gutierrez MD 03/04/23 00:23 AM Diagnostic Findings EKG as per my interpretation :Rate 70, NSR, normal axis, RBBB, T wave abnormalities inferior leads Code Status & VTE Plan VTE Prophylaxis Plan VTE Prophylaxis will be ordered: Yes
[2023-03-04] MEDS ORDERED: SODIUM CHLORIDE 0.9% 1000ML 1,000 ML IV STA (01:40)
[2023-03-04 03:16] LABS: Base Excess VBG 4.8 mEq/L; HCO3 VBG 34 mmol/L; Oxygen Saturation VBG 93.5 %; PCO2 VBG 70 mmHg (38-50); PO2 VBG 70 mmHg; pH VBG 7.29 (7.36-7.41)
[2023-03-04] MEDS ORDERED: DEXTROSE 50% 50 ML SYRINGE IV PRN (03:38)
[2023-03-04] MEDS ORDERED: GLUCOSE 10 TAB/TUBE PO PRN (03:38)
[2023-03-04] MEDS ORDERED: GLUCOSE 40% GEL 15 GM TUBE PO PRN (03:38)
[2023-03-04] MEDS ORDERED: CARBOHYDRATES FOR HYPOGLYCEMIA PO PRN (03:38)
[2023-03-04] MEDS ORDERED: GLUCAGON FOR INJ 1 MG VIAL SQ PRN (03:38)
[2023-03-04] MEDS ORDERED: DAPTOmycin 425 MG in SYRINGE 0 ML IV SCH (05:00)
[2023-03-04] MEDS: INSULIN ASPART PER UNIT CHARGE SC SCH ×4 (05:10→22:17)
[2023-03-04 05:16] LABS: iSTAT Arterial Blood Gas HCO3 33 meg/L (19-24); iSTAT Arterial Blood Gas pCO2 68 mmHg (35-46); iSTAT Arterial Blood Gas pH 7.29 (7.35-7.45); iSTAT Arterial Blood Gas pO2 91 mmHg (80-95); iSTAT Carbon Dioxide 35 mmol/L (24-31); iSTAT Hematocrit 32 % (42-52); iSTAT Hemoglobin 10.9 g/dl (14.0-18.0); iSTAT Sodium 139 mmol/L (135-144)
[2023-03-04] MEDS: LEVOTHYROXINE SODIUM 25 MCG TABLET PO SCH (06:20)
[2023-03-04] MEDS: SODIUM CHLORIDE 0.9% 1000ML 1,000 ML IV SCH ×3 (06:43→18:30)
[2023-03-04 06:53] LABS: Base Excess ABG 5.2 mEq/L (-9-1.8); HCO3 ABG 33 mmol/L (19-24); Oxygen Saturation ABG 99.2 % (90-95); PCO2 ABG 61 mmHg (35-46); PO2 ABG 109 mmHg (80-95); pH ABG 7.34 (7.35-7.45)
[2023-03-04 06:58] LABS: Allen Test Pos (Pos); Basophils # (auto) 0.06 K/uL (0-0.2); Basophils % (auto) 0.5 %; Eosinophils # (auto) 0.38 K/uL (0-0.50); Eosinophils % (auto) 2.9 %; Hematocrit (blood only) 32.6 % (42.0-52.0); Hemoglobin 10.1 g/dl (14.0-18.0); Immature Granulocytes # (auto) 0.06 K/uL (0.01-0.20); Immature Granulocytes % (auto) 0.5 %; Lymphocytes # (auto) 1.59 K/uL (1.2-3.4); Lymphocytes % (auto) 12.2 %; Mean Corpuscular Hemoglobin 28.9 pg (25.0-34.0); Mean Corpuscular Volume 93.1 fL (80.0-100.0); Mean Platelet Volume 9.6 fL (9.4-12.4); Monocytes # (auto) 0.65 K/uL (0.11-0.59); Neutrophils # (auto) 10.32 K/uL (1.40-6.50); Neutrophils % (auto) 78.9 %; Platelet Count 181 K/uL (130-400); RDW Coefficient of Variation 18.9 % (11.5-14.5); RDW Standard Deviation 64.4 fL (36.4-46.3); White Blood Count 13.06 K/ul (4.8-10.8)
--- NOTE | 2023-03-04 07:27 | XRay Report ---
SINGLE VIEW CHEST CLINICAL HISTORY: Generalized weakness. FINDINGS: An AP, portable, supine chest radiograph is compared to study dated 02/15/2023 and correlate d with chest CT dated 06/18/2021. The examination is significantly degraded by portable technique, ap ical lordotic positioning, and patient rotation. The heart is enlarged. There is pulmonary vascular c ongestion. Chronic interstitial thickening is similar to previous. Scarring/atelectasis is noted at t he lung bases. No airspace consolidation or large pleural effusion is identified. No pneumothorax is seen. The skeletal structures are osteopenic. Cerclage wires are noted involving several left posteri or ribs. The majority of these wires are fractured. IMPRESSION: 1. Cardiomegaly with pulmonary vascular congestion. 2. No airspace consolidation or large pleural effusion is identified. ACT 112: Negative or not required by law. Electronically signed by: José Wise M.D. 03/04/2023 7:26 AM
[2023-03-04 07:29] LABS: Calcium 8.2 mg/dl (8.6-10.3); Potassium 4.1 mmol/L (3.5-5.1)
[2023-03-04 07:35] LABS: BUN Creatinine Ratio 21.6 (10-20); Creatinine Clr Calc Pharmacy 40.8 ml/min; Est GFR (African American) 27.4 ml/min; Est GFR (Non-African American) 23.7 ml/min
[2023-03-04 07:35] LABS: INR 3.7 (0.9-1.1); Prothrombin Time 37.6 Seconds (9.0-12.0)
--- NOTE | 2023-03-04 08:49 | Electrocardiogram Report ---
Test Reason : Blood Pressure : / mmHG Vent. Rate : 072 BPM Atrial Rate : 072 BPM P-R Int : 172 ms QRS Dur : 136 ms QT Int : 458 ms P-R-T Axes : 082 000 -01 degrees QTc Int : 501 ms Normal sinus rhythm Right bundle branch block Abnormal ECG When compared with ECG of 24-FEB-2023 05:46, No significant change was found Confirmed by Vlad Malik ([id number]) on 03/04/2023 8:49:27 AM Referred By: REFERRED SELF Confirmed By:Vlad Malik
[2023-03-04] MEDS ORDERED: levETIRAcetam 250 MG TAB PO SCH (09:00)
[2023-03-04] MEDS ORDERED: levETIRAcetam 500 MG in 0.9 % SODIUM CHLORIDE 100 ML IV SCH (09:00)
[2023-03-04] MEDS: DOCUSATE SODIUM 100 MG CAP PO SCH ×2 (09:22→22:18)
[2023-03-04] MEDS: PANTOprazole 40 MG TAB PO SCH ×2 (09:22→22:18)
[2023-03-04] MEDS: allopurinoL 100 MG TAB PO SCH ×2 (09:22→22:19)
[2023-03-04] MEDS: NYSTATIN POWDER 15GM BTL EXT SCH ×2 (09:22→22:25)
[2023-03-04] MEDS: ESCITALOPRAM OXALATE 20 MG TAB PO SCH (09:22)
[2023-03-04] MEDS: FAMOTIDINE 20 MG TAB PO SCH ×2 (09:22→22:19)
[2023-03-04 09:49] LABS: Thyroid Stimulating Hormone 7.405 uIu/ml (0.300-4.500)
[2023-03-04] MEDS ORDERED: levETIRAcetam 250 MG in 0.9 % SODIUM CHLORIDE 100 ML IV ONE (10:15)
--- NOTE | 2023-03-04 11:17 | Nephrology Consultation ---
Date of Consultation March 04, 2023 Assessment & Plan (1) ROBERT (acute kidney injury): Baseline creatinine is one. Presenting creatinine 03/03 PM 2/6, up to 2.7 03/04. DDx prerenal versus ATN versus possibly AIN from cephalosporins; unable to evalluate AIN meaningfully d/t chronic urbian/chronically inflamed urine Continue gentle hydration w/ NS as tolerated treat infection agree w/ holding spironolactone, lasix, metformin, K supplements daily bmp History of Present Illness Reason for Consultation: ROBERT Requesting Physician: Dr Lazcano Attending Physician: Moisés Lazcano MD History of Present Illness 62 y/o M whom I'm asked to see for ROBERT is being admitted today for encephalopat hy and hypercapnic respiratory failure. 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 diff, chronic sacral decubitus wounds/osteomyelitis status post recent debridement ongoing Cefepime course. Admitted here x 2 this month earlier for sepsis secondary to infected sacral decubitus ulcer. is at bedside and gives much of hx. she tells me that metoprolol and cefepime are new medications for him. His baseline creatinine is one. Presenting creatinine 03/03 PM 2/6, up to 2.7 this am. Denies chnage in colostomy output recently; no edema; feels breathing much better on bipap. no rash. no change in urbina output which has chronic sediment to it. He was receiving NS when I saw him late this am. Allergies Allergy/AdvReac Type Severity Reaction Status Date / Time codeine Allergy Severe THROAT Verified 02/23/23 14:12 SWELLS latex Allergy Intermediate Hives Verified 02/23/23 14:12 piperacillin Allergy Intermediate Hives Verified 02/23/23 14:12 Sulfa (Sulfonamide Allergy Intermediate HIVES Verified 02/23/23 14:12 Antibiotics) tazobactam Allergy Intermediate Hives Verified 02/23/23 14:12 aztreonam Allergy Unknown unknown Verified 02/23/23 14:12 metoclopramide [From Reglan] AdvReac Intermediate lethargy Verified 02/23/23 14:12 Home Medications Medication Instructions Recorded Confirmed Type allopurinol 100 mg tablet 100 mg PO BID 05/07/18 03/03/23 History magnesium oxide 400 mg (241.3 mg 400 mg PO AMHS 05/07/18 03/03/23 History magnesium) tablet pantoprazole 40 mg tablet,delayed 40 mg PO BID 05/07/18 03/03/23 History release ropinirole 1 mg tablet 1 mg PO QID 05/07/18 03/03/23 History escitalopram oxalate 20 mg tablet 20 mg PO QAM 08/21/19 03/03/23 History insulin human U-100 NPH-regulr 64 unit subcut BIDM 08/21/19 03/03/23 History 70-30 mix 100 unit/mL subcutaneous susp (Novolin 70/30 U-100 Insulin) warfarin 5 mg tablet 5 mg PO 4XWK 08/21/19 03/03/23 History baclofen 10 mg tablet See Rx Instructions .Route .COMPLEX 09/22/19 03/03/23 History cyclobenzaprine 10 mg tablet 15 mg PO HS 03/01/20 03/03/23 History hyoscyamine sulfate 0.125 mg tablet 0.125 mg PO QPM 03/01/20 03/03/23 History potassium chloride 10 mEq 10 meq PO BIDM 03/01/20 03/03/23 History tablet,extended release tizanidine 4 mg tablet 4 mg PO BID 03/01/20 03/03/23 History Medical Marijuana 6 drp PO PM 03/26/20 03/03/23 History methenamine hippurate 1 gram tablet 1 g PO BID 30 days #60 tabs 04/02/20 03/03/23 Rx ascorbic acid (vitamin C) 500 mg 250 mg PO TID 12/03/20 03/03/23 History tablet (Vitamin C) famotidine 20 mg tablet (Acid 20 mg PO BID 12/03/20 03/03/23 History 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)) Lactobacillus acidoph-L.bulgaricus 1 tab PO BID 01/03/21 03/03/23 History 1 million cell tablet (Floranex) insulin regular human 100 unit/mL See Rx Instructions .Route .COMPLEX 01/03/21 03/03/23 History injection solution (Novolin R Regular U-100 Insulin) menthol 0.44 %-zinc oxide 20.6 % 1 applic topical QID PRN Rash 01/03/21 03/03/23 History topical ointment (Calmoseptine) nystatin 100,000 unit/gram topical 1 applic topical BID 01/03/21 03/03/23 History powder metformin 1,000 mg tablet 1,000 mg PO BIDM 06/14/21 03/03/23 History atorvastatin 40 mg tablet 40 mg PO HS 12/31/21 03/03/23 History docusate sodium 100 mg capsule 100 mg PO AMHS 12/31/21 03/03/23 History levothyroxine 25 mcg tablet 25 mcg PO DAILYBB 02/12/22 03/03/23 History ketoconazole 2 % shampoo 1 applic topical 2XWK 05/22/22 03/03/23 History nystatin-triamcinolone 100,000 1 applic topical BID PRN Rash 05/22/22 03/03/23 History unit/g-0.1 % topical cream spironolactone 25 mg tablet 25 mg PO QAM 05/22/22 03/03/23 History tacrolimus 0.1 % topical ointment 1 applic topical BID 05/22/22 03/03/23 History furosemide 40 mg tablet 40 mg PO BID17 02/09/23 03/03/23 History gabapentin 600 mg tablet 600 mg PO BID 02/09/23 03/03/23 History warfarin 7.5 mg tablet 7.5 mg PO 3XWK 02/09/23 03/03/23 History cefepime 2 gram solution for 2 g IV Q8H #35 ea 02/19/23 03/03/23 Rx injection metoprolol tartrate 25 mg tablet 12.5 mg PO QAM #15 tabs 02/19/23 03/03/23 Rx levetiracetam 750 mg tablet 750 mg PO BID #60 tabs 02/26/23 03/03/23 Rx (Keppra) cefdinir 300 mg capsule 300 mg PO UD 03/03/23 03/03/23 History Patient History Medical History Anemia Asymptomatic bacteriuria Clostridium difficile infection (Unknown) CVA (cerebral vascular accident) DM type 2 (diabetes mellitus, type 2) Dyslipidemia Dysphagia Elevated lactic acid level Fever History of blood clots History of DVT (deep vein thrombosis) Hypertension Hypotension Ileus Kidney disease Lethargy Leukocytosis Major depressive disorder, recurrent Morbid obesity Obesity Occluded PICC line Positive urine culture Quadriplegia BRAIN INJURY 11 YRS AGO Quadriplegia Sacral decubitus ulcer, stage IV Sacral wound Seizure Seizure-like activity Sepsis SIRS (systemic inflammatory response syndrome) Sleep apnea (Unknown) OXYGEN 2L/MIN NC HS Syncope 57 year old with know quadriplegia and new onset syncope with change in position UTI (urinary tract infection) RECENT [facility] ADMISION-D/C 12/06/20 Weakness Surgical History Chronic suprapubic catheter History of colonoscopy 2010 History of open reduction and internal fixation (ORIF) procedure LEFT FEMUR Insertion of inferior vena caval filter (Unknown) Lithotripsy (Unknown) "laser lithotripsy left ureteral stone 03/17/11 " S/P debridement (09/06/21) Incision and Drainage and Debridement Sacral Tissue Down to Bone, 15cm x 11cm - Agusto Chaudhry, DO 09/06/21 S/P debridement (09/08/21) Excisional Debridement of Sacral Decubitus Ulcer, 14p02gy Down to Bone - Agusto Chaudhry, DO 09/08/2021. Patient made ASA 4. Ketamine/versed/fentanyl sedation. Tolerated without incident. S/P debridement S/P debridement (02/11/23) Debridement of sacral ulcer. Dr. Srivastava S/P knee surgery S/P tonsillectomy Suprapubic cystostomy (Unknown) IN PLACE Family History Mother , age 47 of cervical cancer Family history of diabetes mellitus Cervical cancer Father , age 85 of heart disease Family hx of colon cancer Heart disease Other No pertinent family history Social History Smoking Status: Never smoker Second Hand Exposure: No; Do You Dip or Chew Tobacco: No; Tobacco Cessation Education Requested by Patient: No Hx Alcohol Use: No Hx Substance Use: No Preferred Language: [place]an Communication Ability: Effective Visual Impairment: No Limitations Panel Machine Setter Required: No Beliefs That Will Affect Care: None marital status: Current Living Situation: Spouse Current Living Situation Comment: At home with . 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 Other Information That Helps Us Care for You: No Feels Safe at Home: Yes Safety Concerns: Feels Safe At This Time Physical Activity Frequency Comment: QUADRAPLEGIA C4-5-ABLE TO MOVE ARMS, HANDS Assistive Devices: BiPap Review of Systems Review of Systems: All systems reviewed & are unremarkable except as noted in HPI & below Physical Exam Constitutional: well developed, well nourished, + physical limitations and cooperative; no acute distress Eyes: EOM intact bilaterally ENMT: Ears: no external ear abnormality Nose: no external nose abnormality Mouth: + dry oral mucous membranes Neck: no nuchal rigidity Respiratory: normal respiratory effort Auscultation: + diminished lung sounds Gastrointestinal (Abdomen): Inspection/Auscultation: normal bowel sounds Percussion/Palpation: abdomen soft; abdomen nontender colostomy present Musculoskeletal: Extremities: + limited ROM of extremities and + abnormal strength Skin: no rashes, warm and dry Neurologic: limited speech, no tremor Genitourinary: urbina w/ ample yellow urine Results & Data Vital Signs (Past 12 Hours) Vital Signs Temp Pulse Pulse Resp BP BP Pulse Ox 03/04/23 10:44 22 99 03/04/23 09:00 75 22 123/65 98 03/04/23 08:00 72 16 95 03/04/23 07:16 22 98 03/04/23 07:00 77 22 129/68 98 03/04/23 07:01 77 03/04/23 06:30 74 25 H 98 03/04/23 06:00 77 24 108/61 89 L 03/04/23 06:26 03/04/23 05:30 79 22 132/69 96 03/04/23 05:00 82 25 H 128/73 99 03/04/23 04:30 72 22 121/67 94 03/04/23 05:08 03/04/23 04:05 20 94 03/04/23 04:23 36.9 C 71 18 109/69 95 03/04/23 04:00 80 11 L 109/69 100 06/29/23 03:30 78 17 135/74 99 03/04/23 03:00 75 13 117/76 99 03/04/23 01:30 76 12 118/66 99 03/04/23 01:00 77 12 103/72 99 03/04/23 00:31 78 10 L 107/52 L 99 03/04/23 00:45 78 03/04/23 00:17 77 13 90/56 L 98 03/04/23 00:01 98 Pulse Ox O2 Del Method O2 Del Method FiO2 03/04/23 10:44 25 03/04/23 09:00 03/04/23 08:00 03/04/23 07:16 30 03/04/23 07:00 BiPAP 03/04/23 07:01 03/04/23 06:30 03/04/23 06:00 03/04/23 06:26 98 BiPAP 03/04/23 05:30 03/04/23 05:00 03/04/23 04:30 03/04/23 05:08 25 03/04/23 04:05 25 03/04/23 04:23 BiPAP 03/04/23 04:00 03/04/23 03:30 03/04/23 03:00 03/04/23 01:30 03/04/23 01:00 03/04/23 00:31 03/04/23 00:45 03/04/23 00:17 03/04/23 00:01 Laboratory Results 03/04/23 06:47 03/04/23 06:47 UA reviewed Diagnostic Findings CT chest today no con Lungs: Partial collapse of the left lower lobe with underlying infection not excluded. Pleural space: Unremarkable. No pneumothorax. No significant effusion. Heart: Mild cardiomegaly. Coronary vascular calcification. No significant pericardial effusion. Bones/joints: Prior left clamshell sternotomy with multiple broken sternotomy wires. Degenerative disease of the thoracolumbar spine. No dislocation. Soft tissues: Unremarkable. Vasculature: See above. Lymph nodes: Unremarkable. No enlarged lymph nodes. Other findings: Low level of inspiration. IMPRESSION: Partial collapse of the left lower lobe with underlying infection not excluded.
[2023-03-04 12:28] LABS: T4 Free Thyroxine 0.71 ng/dl (0.61-1.60)
[2023-03-04 14:38] LABS: iSTAT Arterial Blood Gas HCO3 32 meg/L (19-24); iSTAT Arterial Blood Gas pCO2 57 mmHg (35-46); iSTAT Arterial Blood Gas pH 7.35 (7.35-7.45); iSTAT Arterial Blood Gas pO2 < 32 mmHg (80-95); iSTAT Carbon Dioxide 33 mmol/L (24-31); iSTAT Hematocrit 31 % (42-52); iSTAT Hemoglobin 10.5 g/dl (14.0-18.0); iSTAT Potassium 3.9 mmol/L (3.3-5.0); iSTAT Sodium 136 mmol/L (135-144)
--- NOTE | 2023-03-04 15:22 | Pulmonary Consultation ---
Date of Consultation March 04, 2023 Assessment & Plan (1) Altered mental status: Altered mental status type: somnolence Qualified Code(s): R40.0 - Somnolence (2) Pneumonia: Laterality: left Lung location: upper lobe of lung Pneumonia type: due to unspecified organism Qualified Code(s): J18.9 - Pneumonia, unspecified organism (3) Acute alteration in mental status: (4) Obesity: (5) Quadriplegia: (6) Sleep apnea: Plan Attending: Dr. Morales Impression: 62-year-old male that presents for change of mental status which is found due to CO2 narcosis from hypercapnia. Patient does carry diagnosis of obstructive sleep apnea but does not use positive airway pressure therapy secondary to previous history greater than 10 years ago of recurrent pneumonia. Patient does continue with supplemental oxygen at night at 2 to 3 L/min via nasal cannula. does note the patient does have snoring and has had periods of apnea. Patient also is noted by to have aspiration and often will fall asleep after meals secondary to excessive daytime sleepiness. Patient is morbidly obese with BMI of 45.4 kg/m. Patient currently denies no shortness of breath. He has no chest pain. He seems to have corrected from his elevated CO2 with use of BiPAP. Recommendations: 1. Acute respiratory failure with hypercapnia: * Patient with previous history of obstructive sleep apnea that is untreated secondary to recurrent pneumonia * Elevated PCO2 on admission. This corrected well with use of BiPAP at 18/5 * Would continue with BiPAP therapy at night with sleep as well as during the day with naps and as needed at 15/10 * Patient has previously qualified for CPAP therapy for obstructive sleep apnea and obesity hypoventilation syndrome. Will discharge patient home on at least CPAP due to his hypercapnia and respiratory failure * Recommend outpatient polysomnography exam with split study. This should be performed in his sleep disorder clinic and not as a home study 2. Nocturnal hypoxemia: * Most recent nocturnal pulse oximetry study was done in 2018 and showed significant desaturation overnight particular between the hours of 01:00 and 05:00 * Patient should be continued on supplemental oxygen at 3 L/min by nasal cannula with hours of sleep. 3. Morbid obesity: * BMI of 45.4 kg/m; weight 147.7 kg * Most likely secondary to quadriplegia and inability to meet target heart rate with exercise * Calorie reduction should be a priority with this patient. Patient would benefit from supervised weight loss. 4. Pneumonia: * Suspect aspiration pneumonia * Continue with aspiration precautions * Patient reports that patient often times falls asleep right after eating * Speech-language pathology consult would be appropriate either inpatient or outpatient due to patient's quadriplegia Thank you for including us in the care of this patient. The pulmonary service will sign off at this time. Please feel free to call or reconsult with further questions Please refer to Dr. Morales's addendum for further recommendations or corrections History of Present Illness Attending Physician: Moisés Lazcano MD History of Present Illness Attending: Dr. Morales This is a 62-year-old male that presents for change of mental status. Patient is morbidly obese with BMI of 45.4 kg/m. He has a past medical history including cervical and head trauma from a fall approximately 13 years ago and is now quadriplegic. Patient does have a history of obstructive sleep apnea. He was previously on CPAP therapy but this was stopped secondary to recurrent pneumonia over a short period. Patient also has had nocturnal pulse oximetry studies done as recent as 2018 which showed desaturation below 88% for greater than 5 minutes. Patient is on supplemental oxygen at 2 to 3 L/min by nasal cannula at night. Patient has a history of falling asleep while eating. He has been noted to aspirate during meals. Patient currently denies any fever, chills, sweats, rigors. He does have sputum production which is whitish to light yellow at this point. Patient has history of resistant Pseudomonas in the urine as well as in sacral and buttock wounds. No prior history of pseudomonal pneumonia. On arrival patient was found to be with altered mental status. Initial labs revealed hypercarbia. Patient was put on CPAP and has significantly improved. Most recent VBG shows improvement in PCO2. Patient also is now fully awake and able to give history and is alert and oriented x3. Patient denies any significant shortness of breath. He is placed on supplemental oxygen 3 L/min via nasal cannula this time. Allergies Allergy/AdvReac Type Severity Reaction Status Date / Time codeine Allergy Severe THROAT Verified 02/23/23 14:12 SWELLS latex Allergy Intermediate Hives Verified 02/23/23 14:12 piperacillin Allergy Intermediate Hives Verified 02/23/23 14:12 Sulfa (Sulfonamide Allergy Intermediate HIVES Verified 02/23/23 14:12 Antibiotics) tazobactam Allergy Intermediate Hives Verified 02/23/23 14:12 aztreonam Allergy Unknown unknown Verified 02/23/23 14:12 metoclopramide [From Reglan] AdvReac Intermediate lethargy Verified 02/23/23 14:12 Home Medications Medication Instructions Recorded Confirmed Type allopurinol 100 mg tablet 100 mg PO BID 05/07/18 03/03/23 History magnesium oxide 400 mg (241.3 mg 400 mg PO AMHS 05/07/18 03/03/23 History magnesium) tablet pantoprazole 40 mg tablet,delayed 40 mg PO BID 05/07/18 03/03/23 History release ropinirole 1 mg tablet 1 mg PO QID 05/07/18 03/03/23 History escitalopram oxalate 20 mg tablet 20 mg PO QAM 08/21/19 03/03/23 History insulin human U-100 NPH-regulr 64 unit subcut BIDM 08/21/19 03/03/23 History 70-30 mix 100 unit/mL subcutaneous susp (Novolin 70/30 U-100 Insulin) warfarin 5 mg tablet 5 mg PO 4XWK 08/21/19 03/03/23 History baclofen 10 mg tablet See Rx Instructions .Route .COMPLEX 09/22/19 03/03/23 History cyclobenzaprine 10 mg tablet 15 mg PO HS 03/01/20 03/03/23 History hyoscyamine sulfate 0.125 mg tablet 0.125 mg PO QPM 03/01/20 03/03/23 History potassium chloride 10 mEq 10 meq PO BIDM 03/01/20 03/03/23 History tablet,extended release tizanidine 4 mg tablet 4 mg PO BID 03/01/20 03/03/23 History Medical Marijuana 6 drp PO PM 03/26/20 03/03/23 History methenamine hippurate 1 gram tablet 1 g PO BID 30 days #60 tabs 04/02/20 03/03/23 Rx ascorbic acid (vitamin C) 500 mg 250 mg PO TID 12/03/20 03/03/23 History tablet (Vitamin C) famotidine 20 mg tablet (Acid 20 mg PO BID 12/03/20 03/03/23 History Document Control Supervisor (famotidine)) Lactobacillus acidoph-L.bulgaricus 1 tab PO BID 01/03/21 03/03/23 History 1 million cell tablet (Floranex) insulin regular human 100 unit/mL See Rx Instructions .Route .COMPLEX 01/03/21 03/03/23 History injection solution (Novolin R Regular U-100 Insulin) menthol 0.44 %-zinc oxide 20.6 % 1 applic topical QID PRN Rash 01/03/21 03/03/23 History topical ointment (Calmoseptine) nystatin 100,000 unit/gram topical 1 applic topical BID 01/03/21 03/03/23 History powder metformin 1,000 mg tablet 1,000 mg PO BIDM 06/14/21 03/03/23 History atorvastatin 40 mg tablet 40 mg PO HS 12/31/21 03/03/23 History docusate sodium 100 mg capsule 100 mg PO AMHS 12/31/21 03/03/23 History levothyroxine 25 mcg tablet 25 mcg PO DAILYBB 02/12/22 03/03/23 History ketoconazole 2 % shampoo 1 applic topical 2XWK 05/22/22 03/03/23 History nystatin-triamcinolone 100,000 1 applic topical BID PRN Rash 05/22/22 03/03/23 History unit/g-0.1 % topical cream spironolactone 25 mg tablet 25 mg PO QAM 05/22/22 03/03/23 History tacrolimus 0.1 % topical ointment 1 applic topical BID 05/22/22 03/03/23 History furosemide 40 mg tablet 40 mg PO BID17 02/09/23 03/03/23 History gabapentin 600 mg tablet 600 mg PO BID 02/09/23 03/03/23 History warfarin 7.5 mg tablet 7.5 mg PO 3XWK 02/09/23 03/03/23 History cefepime 2 gram solution for 2 g IV Q8H #35 ea 02/19/23 03/03/23 Rx injection metoprolol tartrate 25 mg tablet 12.5 mg PO QAM #15 tabs 02/19/23 03/03/23 Rx levetiracetam 750 mg tablet 750 mg PO BID #60 tabs 02/26/23 03/03/23 Rx (Keppra) cefdinir 300 mg capsule 300 mg PO UD 03/03/23 03/03/23 History Patient History Medical History Anemia Asymptomatic bacteriuria Clostridium difficile infection (Unknown) CVA (cerebral vascular accident) DM type 2 (diabetes mellitus, type 2) Dyslipidemia Dysphagia Elevated lactic acid level Fever History of blood clots History of DVT (deep vein thrombosis) Hypertension Hypotension Ileus Kidney disease Lethargy Leukocytosis Major depressive disorder, recurrent Morbid obesity Obesity Occluded PICC line Positive urine culture Quadriplegia BRAIN INJURY 11 YRS AGO Quadriplegia Sacral decubitus ulcer, stage IV Sacral wound Seizure Seizure-like activity Sepsis SIRS (systemic inflammatory response syndrome) Sleep apnea (Unknown) OXYGEN 2L/MIN NC HS Syncope 57 year old with know quadriplegia and new onset syncope with change in position UTI (urinary tract infection) RECENT [facility] ADMISION-D/C 12/06/20 Weakness Surgical History Chronic suprapubic catheter History of colonoscopy 2010 History of open reduction and internal fixation (ORIF) procedure LEFT FEMUR Insertion of inferior vena caval filter (Unknown) Lithotripsy (Unknown) "laser lithotripsy left ureteral stone 03/17/11 " S/P debridement (09/06/21) Incision and Drainage and Debridement Sacral Tissue Down to Bone, 15cm x 11cm - Agusto Chaudhry, DO 09/06/21 S/P debridement (09/08/21) Excisional Debridement of Sacral Decubitus Ulcer, [id number] Down to Bone - Agusto Chaudhry, DO 09/08/2021. Patient made ASA 4. Ketamine/versed/fentanyl sedation. Tolerated without incident. S/P debridement S/P debridement (02/11/23) Debridement of sacral ulcer. Dr. Srivastava S/P knee surgery S/P tonsillectomy Suprapubic cystostomy (Unknown) IN PLACE Family History Mother , age 47 of cervical cancer Family history of diabetes mellitus Cervical cancer Father , age 85 of heart disease Family hx of colon cancer Heart disease Other No pertinent family history Social History Smoking Status: Never smoker Second Hand Exposure: No; Do You Dip or Chew Tobacco: No; Tobacco Cessation Education Requested by Patient: No Hx Alcohol Use: No Hx Substance Use: No Preferred Language: German Communication Ability: Effective Visual Impairment: No Limitations Dye Beck Reel Operator Required: No Beliefs That Will Affect Care: None marital status: Current Living Situation: Spouse Current Living Situation Comment: At home with . 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 No conversational dyspnea noted during interview EYES: No icterus, gaze conjugate NOSE: No evidence of epistaxis MOUTH: No lesions or candidiasis NECK: Supple LUNGS: Basilar rhonchi. Patient with good inspirational effort. No induced cough with deep inspiration. HEART: Regular, rate controlled ABDOMEN: Soft, NT, ND, BS Present EXTREMITIES: Bilateral LE edema, pedal pulses intact and equal bilaterally no pain to feet NEURO: A&OX3. Bibasilar crackles. No appreciated progress Results & Data Results & Data Vital Signs (Past 12 Hours) Vital Signs Temp Pulse Pulse Resp BP BP Pulse Ox 03/04/23 13:00 76 22 97 03/04/23 13:00 126/67 03/04/23 12:00 69 22 95 03/04/23 12:00 122/68 03/04/23 11:00 77 22 97 03/04/23 11:00 133/73 03/04/23 10:00 76 22 95 03/04/23 10:00 114/69 03/04/23 10:44 22 99 03/04/23 09:00 75 22 123/65 98 03/04/23 08:00 72 16 95 03/04/23 07:16 22 98 03/04/23 07:00 77 22 129/68 98 03/04/23 07:01 77 03/04/23 06:30 74 25 H 98 03/04/23 06:00 77 24 108/61 89 L 03/04/23 06:26 03/04/23 05:30 79 22 132/69 96 03/04/23 05:00 82 25 H 128/73 99 03/04/23 04:30 72 22 121/67 94 03/04/23 05:08 03/04/23 04:05 20 94 03/04/23 04:23 36.9 C 71 18 109/69 95 03/04/23 04:00 80 11 L 109/69 100 03/04/23 03:30 78 17 135/74 99 Pulse Ox O2 Del Method O2 Del Method FiO2 03/04/23 13:00 03/04/23 13:00 03/04/23 12:00 03/04/23 12:00 03/04/23 11:00 03/04/23 11:00 03/04/23 10:00 03/04/23 10:00 03/04/23 10:44 25 03/04/23 09:00 03/04/23 08:00 03/04/23 07:16 30 03/04/23 07:00 BiPAP 03/04/23 07:01 03/04/23 06:30 03/04/23 06:00 03/04/23 06:26 98 BiPAP 03/04/23 05:30 03/04/23 05:00 03/04/23 04:30 03/04/23 05:08 25 03/04/23 04:05 25 03/04/23 04:23 BiPAP 03/04/23 04:00 03/04/23 03:30 Critical Care Results & Data Vital Signs (Past 12 Hours) Vital Signs Pulse Resp BP Pulse Ox Pulse Ox O2 Del Method O2 Del Method 03/04/23 13:00 76 22 97 03/04/23 13:00 126/67 03/04/23 12:00 69 22 95 03/04/23 12:00 122/68 03/04/23 11:00 77 22 97 03/04/23 11:00 133/73 03/04/23 10:00 76 22 95 03/04/23 10:00 114/69 03/04/23 10:44 22 99 03/04/23 09:00 75 22 123/65 98 03/04/23 08:00 72 16 95 03/04/23 07:16 22 98 03/04/23 07:00 77 22 129/68 98 BiPAP 03/04/23 07:01 77 03/04/23 06:30 74 25 H 98 03/04/23 06:00 77 24 108/61 89 L 03/04/23 06:26 98 BiPAP 03/04/23 05:30 79 22 132/69 96 FiO2 03/04/23 13:00 03/04/23 13:00 03/04/23 12:00 03/04/23 12:00 03/04/23 11:00 03/04/23 11:00 03/04/23 10:00 03/04/23 10:00 03/04/23 10:44 25 03/04/23 09:00 03/04/23 08:00 03/04/23 07:16 30 03/04/23 07:00 03/04/23 07:01 03/04/23 06:30 03/04/23 06:00 03/04/23 06:26 03/04/23 05:30 Lab & Micro Results (Past 24 Hours) RBC 3.50 M/uL (4.70-6.10) L 03/04/23 WBC 13.06 K/ul (4.8-10.8) H 03/04/23 Hgb 10.1 g/dl (14.0-18.0) L 03/04/23 Hct 32.6 % (42.0-52.0) L 03/04/23 MCV 93.1 fL (80.0-100.0) 03/04/23 MCH 28.9 pg (25.0-34.0) 03/04/23 MCHC 31.0 g/dL (32.0-36.0) L 03/04/23 RDW Standard Deviation 64.4 fL (36.4-46.3) H 03/04/23 RDW Coefficient of Variation 18.9 % (11.5-14.5) H 03/04/23 Plt Count 181 K/uL (130-400) 03/04/23 MPV 9.6 fL (9.4-12.4) 03/04/23 Neutrophils (%) (Auto) 78.9 % 03/04/23 Lymphocytes (%) (Auto) 12.2 % 03/04/23 Monocytes # (Auto) 0.65 K/uL (0.11-0.59) H 03/04/23 Eosinophils # (Auto) 0.38 K/uL (0-0.50) 03/04/23 Immature Granulocyte % (Auto) 0.5 % 03/04/23 Neutrophils # (Auto) 10.32 K/uL (1.40-6.50) H 03/04/23 Lymphocytes # (Auto) 1.59 K/uL (1.2-3.4) 03/04/23 Monocytes # (Auto) 0.65 K/uL (0.11-0.59) H 03/04/23 Eosinophils # (Auto) 0.38 K/uL (0-0.50) 03/04/23 Basophils # (Auto) 0.06 K/uL (0-0.2) 03/04/23 Immature Granulocyte # (Auto) 0.06 K/uL (0.01-0.20) 3 Na 137 mmol/L (136-145) 03/04/23 K 4.1 mmol/L (3.5-5.1) 03/04/23 Cl 101 mmol/L (98-107) 03/04/23 CO2 27 mmol/L (21-32) 03/04/23 Anion Gap 9 (3-11) 03/04/23 BUN 59 mg/dl (6-23) H 03/04/23 Creatinine 2.73 mg/dl (0.6-1.4) H 03/04/23 Estimated GFR ( Amer) 27.4 ml/min 03/04/23 Estimated GFR (Non-Af Amer) 23.7 ml/min 03/04/23 BUN/Creatinine Ratio 21.6 (10-20) H 03/04/23 Glu 111 mg/dl (70-99(Fasting)) H 03/04/23 Ca 8.2 mg/dl (8.6-10.3) L 03/04/23 Total Bilirubin 0.4 mg/dl (0.2-1.0) 03/03/23 AST 14 U/L (13-39) 03/03/23 ALT 11 U/L (7-52) 03/03/23 Alkaline Phosphatase 54 U/L (34-104) 03/03/23 TP 7.8 gm/dl (6.0-8.3) 03/03/23 Albumin 3.3 gm/dl (3.4-5.0) L 03/03/23 Globulin 4.5 gm/dl (2.5-4.0) H 03/03/23 Albumin/Globulin Ratio 0.7 (0.9-2) L 03/03/23 Mg 2.0 mg/dl (1.7-2.4) 03/03/23 20:19 Calcium Level 8.2 mg/dl (8.6-10.3) L 03/04/23 06:47 Prothromb Time International Ratio 3.7 (0.9-1.1) H 03/04/23 06 :46 Venous Blood pH 7.29 (7.36-7.41) L 03/04/23 03:03 Venous Blood Partial Pressure CO2 70 mmHg (38-50) H 03/04/23 03 :03 Venous Blood Partial Pressure O2 70 mmHg 03/04/23 03:03 Venous Blood HCO3 34 mmol/L 03/04/23 03:03 Venous Blood Base Excess 4.8 mEq/L 03/04/23 03:03 Venous Blood Oxygen Saturation 93.5 % 03/04/23 03:03 Arterial Blood pH 7.34 (7.35-7.45) L 03/04/23 06:47 Arterial Blood Partial Pressure CO2 61 mmHg (35-46) H 03/04/23 06:47 Arterial Blood Partial Pressure O2 109 mmHg (80-95) H 03/04/23 06:47 Arterial Blood HCO3 33 mmol/L (19-24) H 03/04/23 06:47 Arterial Blood Base Excess 5.2 mEq/L (-9-1.8) H 03/04/23 06:47 Arterial Blood Oxygen Saturation 99.2 % (90-95) H 03/04/23 06:4 7 Blood Gas Oxygen Given 30% 03/04/23 06:47 Francis Test Pos (Pos) 03/04/23 06:47 Diagnostic Findings (Past 24 Hours) Head CT 03/03/23 21:49 Exam(s): CT HEAD Without Contrast EXAM: CT Head Without Intravenous Contrast CLINICAL HISTORY: Reason for exam: delerium. TECHNIQUE: Axial computed tomography images of the head/brain without intravenous contrast. CTDI is 65.21 mGy and DLP is 1100.68 mGy-cm. Automated exposure control was utilized for the study. A dose lowering technique was utilized adhering to the principles of ALARA. COMPARISON: No relevant prior studies available. FINDINGS: Brain: Mild chronic periventricular ischemic demyelination changes seen due to small vessel disease. No hemorrhage. Ventricles: Unremarkable. No ventriculomegaly. Bones/joints: Unremarkable. No acute fracture. Soft tissues: Unremarkable. Sinuses: Unremarkable as visualized. No acute sinusitis. Mastoid air cells: Unremarkable as visualized. No mastoid effusion. IMPRESSION: No acute intracranial abnormality Electronically signed by: Abhishek Mane MD 03/03/23 22:53 PM Chest X-Ray 03/03/23 22:09 SINGLE VIEW CHEST CLINICAL HISTORY: Generalized weakness. FINDINGS: An AP, portable, supine chest radiograph is compared to study dated 02/15/2023 and correlated with chest CT dated 06/18/2021. The examination is significantly degraded by portable technique, apical lordotic positioning, and patient rotation. The heart is enlarged. There is pulmonary vascular congestion. Chronic interstitial thickening is similar to previous. Scarring/atelectasis is noted at the lung bases. No airspace consolidation or large pleural effusion is identified. No pneumothorax is seen. The skeletal structures are osteopenic. Cerclage wires are noted involving several left posterior ribs. The majority of these wires are fractured. IMPRESSION: 1. Cardiomegaly with pulmonary vascular congestion. 2. No airspace consolidation or large pleural effusion is identified. ACT 112: Negative or not required by law. Electronically signed by: José Wise M.D. 03/04/2023 7:[address] 03/03/23 22:55 Exam(s): CT CHEST Without Contrast EXAM: CT Chest Without Intravenous Contrast CLINICAL HISTORY: Reason for exam: poss pneumonia, quad. TECHNIQUE: Axial computed tomography images of the chest without intravenous contrast. CTDI is 38.1 mGy and DLP is 1230.28 mGy-cm. Automated exposure control was utilized for the study. A dose lowering technique was utilized adhering to the principles of ALARA. COMPARISON: Chest radiograph dated 03/03/23 FINDINGS: Lungs: Partial collapse of the left lower lobe with underlying infection not excluded. Pleural space: Unremarkable. No pneumothorax. No significant effusion. Heart: Mild cardiomegaly. Coronary vascular calcification. No significant pericardial effusion. Bones/joints: Prior left clamshell sternotomy with multiple broken sternotomy wires. Degenerative disease of the thoracolumbar spine. No dislocation. Soft tissues: Unremarkable. Vasculature: See above. Lymph nodes: Unremarkable. No enlarged lymph nodes. Other findings: Low level of inspiration. IMPRESSION: Partial collapse of the left lower lobe with underlying infection not excluded. Electronically signed by: Goldy Gutierrez MD 03/04/23 00:23 AM I & O Totals 24 Hours 03/03/23 03/04/23 03/05/23 06:59 06:59 06:59 Intake Total 4100 / 4100 1175.833 / 1175.833 Output Total 1000 / 1000 Balance 3100 / 3100 1175.833 / 1175.833 Cumulative 03/03/23 19:47 thru 03/04/23 15:54 Intake Total 5275.833 Output Total 1000 Balance 4275.833 RT Ventilator Mngmt (Last Documented) Ventilator Ordered Settings Respiratory Rate 22 03/04/23 13:00 Fraction of Inspired Oxygen 03/04/23 10:44 Ventilator - PT Measurements Respiratory Rate 22 PG Care Time/CCT Total # of Minutes Spent Total Time Spent with Patient: Total time spent is greater than 50% in coordination of care (as documented) at patient's floor/unit and/or counseling patient: 65 Coding Level of Care Code 50300 IN/OBS CONSULT LVL 4,60M Diagnoses Altered mental status R40.0 Altered mental status type: somnolence Pneumonia J18.9 Laterality: left Lung location: upper lobe of lung Pneumonia type: due to unspecified organism Acute alteration in mental status R41.82 Obesity E66.9 Quadriplegia G82.50 Sleep apnea G47.30 Time Spent (min) 65
--- NOTE | 2023-03-04 16:03 | Hospitalist Progress Note ---
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 In the ED, he was found to be in hypercapnic resp failure, also in ROBERT over CKD III. 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 Pt noted to be not eating and drinking well, there was concern of hydration. Patient was found to be in ROBERT over CKD stage III, hypercapnic respiratory failure at presentation. Patient was using cefepime for his sacral osteomyelitis treatment for few weeks by the time of presentation. Patient was put on BiPAP, was alert and back to baseline at bedside exam. Treat underlying cause as below. Hold neuropsych meds as able. pt w/ chronic pain/spasms - resume home meds gradually. Acute hypercapnic respiratory failure: Patient noted to be lethargic at presentation, CO2 of 61 in ABG at presentation. Likely secondary to underlying OHS. Admitting CT Head with no acute findings. Admitting CT chest with partial collapse of left lower lobe with underlying infection not excluded. Pulmonology consulted, await recommendation. Patient alert and mentation back to baseline after several hours of BiPAP. VBG after several hours of BiPAP with PCO2 improvement. Pt will benefit from updated sleep study as OP, he is on 3 L NC O2 during sleep (was prescribed 2L NC O2 during his sleep study several years ago per pt). Acute kidney injury over CKD stage III: Patient's admitting BUN and creatinine were 57 and 2.56, up trended. Patient noted to have poor appetite and poor fluid intake prior to arrival. Likely prerenal. Baseline creatinine around 1. 2019 echo with EF of 65 to 70%. Hold nephrotoxic's, patient receiving IV fluid. Nephrology on board, awaiting recommendation. lasix (& hence kcl) & aldactone on hold. Leukocytosis: WBC of 17.14K at presentation. Patient does appear to have chronic leukocytosis likely secondary to chronic osteomyelitis. Part of it may be contributed due to hemoconcentration secondary to poor appetite prior to arrival. Procalcitonin was negative at presentation. We will follow-up admitting blood and urine culture. Will DC daptomycin and monitor closely. Await ID consult. Stage IV decubitus ulcer, history of Sacral osteomyelitis Concern for recurrent UTI, CAUTI: Patient with chronic suprapubic catheter [see above]. Urine looks clean at bedside exam, patient was noted to have Pseudomonas in his urine on 02/11/2023. For which he is being covered with cefepime itself. On chronic methenamine suppression Rx - will hold while on antibiotic actively. Will DC dapto; cefepime changedd to ceftazidime, await ID eval as well. Patient is a status post debridement of sacral ulcer by Dr. Srivastava on 02/11/2023 [previous admission]. Patient was being treated with septic time for sacral osteomyelitis. 02/11 wound culture with Pseudomonas aeruginosa. Patient was evaluated by ID and recommended 6 weeks of IV cefepime at the time. PICC line was placed on 02/18. Due to concern of encephalopathy likely from cefepime, will switch to ceftazidime. We will consult wound care nurse. ID consult has been placed, await recommendation. Pt will need close f/u w/ ID on DC. Seizure disorder:For breakthrough seizure in his 02/09 to 02/19 admission while on Keppra, his Keppra was changed to Depakote after neurology evaluation. Later patient self-discontinued Depakote due to intolerance. Evaluated by neurology again during his 02/23 - 02/26 admission, he was put back on Keppra with increased dose to 750 Mg twice daily from 500 mg BID in the past. Continue the home dose of Keppra. Patient to continue follow-up with his neurology upon discharge. Other chronic medical conditions:Resume/continue home meds as able Insulin-dependent T2DM: A1c of 6.9 this admission, glycemic pharmacy on board, sliding scale insulin. Neurogenic bladder/suprapubic cath in place/history of recurrent UTIs: hold methenamine hippurate until actively on antibiotic Rx. Colostomy status: Colostomy in place to prevent wound swelling, continue routine ostomy care Chronic anticoagulation secondary to coagulation disorder: Monitor INR daily or as needed, continue with home warfarin dose when appropriate, currently on hold, inr in AM. 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 Repeat TFT in 6 weeks. DVT prophylaxis: on Warfarin, hold today, f/u INR in AM. Full code Dispo: PCU Patient's Ms. Rody Rodriguez, contact #[phone]. Admission and Anticipated Discharge Date Admission Date: March 04, 2023 Subjective Patient seen and examined at bedside as a follow-up of metabolic encephalopathy, hypercapnic respiratory failure/possible underlying OHS, recurrent complicated UTI, acute kidney injury over CKD III. Patient was lying in bed, on BiPAP, NAD, is alert at bedside exam, at bedside, reports feeling better, denies any pain, will give him a break from BiPAP during the day and put him back on diet as his alert and back to baseline. Use BiPAP while sleeping. Routine pulmonology eval. Patient's updated regarding plan of care at bedside. Physical Exam Physical Exam: GENERAL: Alert and oriented x3. NAD, on BPAP. Obese class III. HEENT: No pallor, no icterus. Pupils equal, round and reactive to light. Oral mucosa moist. NECK: No JVD, no neck masses. HEART: S1 and S2 heard. Regular rate and rhythm. No murmur, no gallop. RESPIRATORY SYSTEM: Normal AP diameter. No accessory muscle use. No wheezing, no crackles. ABDOMEN: Soft, bowel sounds present, nontender, no distention. Stoma bag w/ fecal output. Suprapubic cath noted. CENTRAL NERVOUS SYSTEM: No facial droop. Speech is clear. Obeys simple comman ds. Quadriplegia noted w/ BLE paralysis and BUE paresis. EXTREMITIES: trace ble edema, no erythema seen. Results & Data Results & Data Vital Signs (Past 12 Hours) Vital Signs Temp Pulse Pulse Resp BP BP Pulse Ox 03/04/23 13:00 76 22 97 03/04/23 13:00 126/67 03/04/23 12:00 69 22 95 03/04/23 12:00 122/68 03/04/23 11:00 77 22 97 03/04/23 11:00 133/73 03/04/23 10:00 76 22 95 03/04/23 10:00 114/69 03/04/23 10:44 22 99 03/04/23 09:00 75 22 123/65 98 03/04/23 08:00 72 16 95 03/04/23 07:16 22 98 03/04/23 07:00 77 22 129/68 98 03/04/23 07:01 77 03/04/23 06:30 74 25 H 98 03/04/23 06:00 77 24 108/61 89 L 03/04/23 06:26 03/04/23 05:30 79 22 132/69 96 03/04/23 05:00 82 25 H 128/73 99 03/04/23 04:30 72 22 121/67 94 03/04/23 05:08 03/04/23 04:05 20 94 03/04/23 04:23 36.9 C 71 18 109/69 95 03/04/23 04:00 80 11 L 109/69 100 Pulse Ox O2 Del Method O2 Del Method FiO2 03/04/23 13:00 03/04/23 13:00 03/04/23 12:00 03/04/23 12:00 03/04/23 11:00 03/04/23 11:00 03/04/23 10:00 03/04/23 10:00 03/04/23 10:44 25 03/04/23 09:00 03/04/23 08:00 03/04/23 07:16 30 03/04/23 07:00 BiPAP 03/04/23 07:01 03/04/23 06:30 03/04/23 06:00 03/04/23 06:26 98 BiPAP 03/04/23 05:30 03/04/23 05:00 03/04/23 04:30 03/04/23 05:08 25 03/04/23 04:05 25 03/04/23 04:23 BiPAP 03/04/23 04:00 (1) Altered mental status Altered mental status type: somnolence Qualified Code(s): R40.0 - Somnolence
[2023-03-04] MEDS: BACLOFEN 10 MG TAB PO SCH ×2 (18:41→22:22)
[2023-03-04] MEDS: levETIRAcetam 750 MG in 0.9 % SODIUM CHLORIDE 100 ML IV SCH (22:21)
[2023-03-04] MEDS: ADVANCED PROBIOTIC 1250 MG CAPSULE PO SCH (22:22)
[2023-03-04] MEDS: MAGNESIUM OXIDE 400 MG TAB PO SCH (22:23)
[2023-03-04] MEDS: ATORVASTATIN 40 MG TAB PO SCH (22:23)
[2023-03-04] MEDS ORDERED: CEFEPIME 1,000 MG in SYRINGE 0 ML IV SCH (23:00)
[2023-03-05] MEDS: SODIUM CHLORIDE 0.9% 1000ML 1,000 ML IV SCH (05:30)
[2023-03-05] MEDS: LEVOTHYROXINE SODIUM 25 MCG TABLET PO SCH (05:32)
[2023-03-05] MEDS: BACLOFEN 10 MG TAB PO SCH ×5 (05:33→19:12)
[2023-03-05 07:23] LABS: Hematocrit (blood only) 34.2 % (42.0-52.0); Hemoglobin 10.6 g/dl (14.0-18.0); Mean Corpuscular Volume 93.4 fL (80.0-100.0); Platelet Count 174 K/uL (130-400); RDW Coefficient of Variation 18.6 % (11.5-14.5); RDW Standard Deviation 64.7 fL (36.4-46.3); Red Blood Count 3.66 M/uL (4.70-6.10); White Blood Count 10.06 K/ul (4.8-10.8)
[2023-03-05 07:38] LABS: BUN Creatinine Ratio 21.5 (10-20); Calcium 8.1 mg/dl (8.6-10.3); Creatinine Clr Calc Pharmacy 41.3 ml/min; Est GFR (African American) 27.8 ml/min; Magnesium 1.9 mg/dl (1.7-2.4); Phosphorus 4.8 mg/dl (2.5-4.9)
[2023-03-05 07:54] LABS: Prothrombin Time 49.3 Seconds (9.0-12.0)
[2023-03-05] MEDS: INSULIN ASPART PER UNIT CHARGE SC SCH ×4 (09:11→21:15)
[2023-03-05] MEDS: PANTOprazole 40 MG TAB PO SCH ×2 (09:19→21:13)
[2023-03-05] MEDS: FAMOTIDINE 20 MG TAB PO SCH ×2 (09:19→21:14)
[2023-03-05] MEDS: ADVANCED PROBIOTIC 1250 MG CAPSULE PO SCH ×2 (09:20→21:13)
[2023-03-05] MEDS: ESCITALOPRAM OXALATE 20 MG TAB PO SCH (09:20)
[2023-03-05] MEDS: allopurinoL 100 MG TAB PO SCH ×2 (09:22→21:13)
[2023-03-05] MEDS: DOCUSATE SODIUM 100 MG CAP PO SCH ×2 (09:22→21:15)
[2023-03-05] MEDS: NYSTATIN POWDER 15GM BTL EXT SCH ×2 (09:22→21:14)
--- NOTE | 2023-03-05 09:26 | Pulmonology Progress Note ---
Date of Service March 05, 2023 Assessment & Plan (1) Nocturnal hypoxia: (2) Hypercapnic respiratory failure: (3) Obesity hypoventilation syndrome: Plan Impression: 62-year-old male with likely obesity hypoventilation syndrome admitted with hypercarbic respiratory failure resulting in encephalopathy which is now cleared with application of noninvasive positive pressure ventilation. He used BiPAP last night and actually slept well. Recommendations: 1. Hypercarbic respiratory failure: Likely obesity hypoventilation syndrome. Recommend the patient be discharged on BiPAP 15/10 with oxygen bleed until a sleep study can be obtained in the outpatient setting. He needs a split-night study and is not appropriate for home testing given his medical issues, hypercarbia, and potential need for supplemental oxygen in conjunction with positive airway pressure. He can follow-up in the sleep clinic. He reportedly is established with [facility] home care for his supplemental oxygen so getting them to set him up with BiPAP would be reasonable. Indication is hypercarbic respiratory failure/obesity hypoventilation syndrome. 2. Airspace opacity in the superior segment of the left lower lobe. May be consistent with aspiration. White blood cell count has now normalized. Procalc itonin on presentation was unremarkable. Blood cultures have shown no growth to date. ID consultation is pending. Patient initially was on cefepime and transitioned yesterday to ceftazidime. He also received a dose of daptomycin. He grown Pseudomonas from his decubitus ulcer. From a pulmonary standpoint, oral Augmentin would be more than adequate to treat the presumptive aspiration event. Will defer antibiotics to the infectious disease and primary service as they may be covering other potential pathogens. From a respiratory standpoint, the patient is stable to dismiss from the hospita l with BiPAP at home and outpatient polysomnography. Pulmonary will sign off at this point time. Feel free to contact us with questions or concerns. Admission and Anticipated Discharge Date Admission Date: March 04, 2023 Subjective Patient seen and examined. EMR reviewed. The patient is awake alert conversant. He states he used BiPAP last night. He tolerated it well and actually thinks that he slept better than normal. He is open to using BiPAP at home. His encephalopathy is cleared completely. He is coughing and bringing up some phlegm. He states that this is a chronic issue for him and he does not feel that his cough or phlegm production is any different from his baseline. He denies chest pain or wheezing. He has not noted any subjective complaints such as fevers chills night or night sweats overnight. Review of Systems Review of Systems: All systems reviewed & are unremarkable except as noted in Subjective Physical Exam 2 Physical Exam: GENERAL : No acute distress. No conversational dyspnea noted during interview. Patient is a paraplegic. He is obese EYES: No icterus, gaze conjugate NECK: Supple LUNGS: Basilar rhonchi. Patient with good inspirational effort. No wheezes or crackles HEART: Regular, rate controlled ABDOMEN: Soft, NT, ND, BS Present EXTREMITIES: Bilateral LE edema, pedal pulses intact and equal bilaterally no pain to feet NEURO: A&OX3. Bibasilar crackles. No appreciated progress Results & Data Results & Data Vital Signs (Past 12 Hours) Vital Signs Temp Pulse Pulse Resp BP Pulse Ox O2 Del Method 03/05/23 08:34 36.4 C L 71 18 100/61 94 Room Air 03/05/23 04:06 36.7 C 89 16 114/59 L 99 Nasal Cannula 03/05/23 00:00 90 03/04/23 23:26 36.3 C L 96 H 18 129/62 100 Room Air, BiPAP 03/04/23 22:06 94 H 20 96 O2 Flow Rate 03/05/23 08:34 03/05/23 04:06 2 03/05/23 00:00 03/04/23 23:26 03/04/23 22:06 3 Laboratory Results 03/05/23 06:34 03/05/23 06:34 03/03/23 03/04/23 03/04/23 22:50 03:03 05:01 POC pCO2 68 H POC pO2 91 ABG pH 7.35 ABG pCO2 61 H ABG pO2 108 H ABG HCO3 34 H ABG O2 Saturation 99.2 H ABG Base Excess 6.1 H VBG pH 7.29 L VBG pCO2 70 H VBG pO2 70 VBG HCO3 34 VBG O2 Saturation 93.5 VBG Base Excess 4.8 03/04/23 03/04/23 06:47 14:23 POC pCO2 57 H POC pO2 < 32 L ABG pH 7.34 L ABG pCO2 61 H ABG pO2 109 H ABG HCO3 33 H ABG O2 Saturation 99.2 H ABG Base Excess 5.2 H VBG pH VBG pCO2 VBG pO2 VBG HCO3 VBG O2 Saturation VBG Base Excess Diagnostic Findings No new imaging PG Care Time/CCT Total # of Minutes Spent Total Time Spent with Patient: Total time spent is greater than 50% in coordination of care (as documented) at patient's floor/unit and/or counseling patient: Coding Level of Care Code 48127 SUB INP/OBS CARE 2/35MIN Diagnoses Nocturnal hypoxia G47.34 Hypercapnic respiratory failure J96.92 Obesity hypoventilation syndrome E66.2
[2023-03-05] MEDS: levETIRAcetam 750 MG in 0.9 % SODIUM CHLORIDE 100 ML IV SCH ×2 (09:36→21:11)
[2023-03-05] MEDS: MAGNESIUM OXIDE 400 MG TAB PO SCH (12:50)
--- NOTE | 2023-03-05 14:56 | Hospitalist Progress Note ---
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 In the ED, he was found to be in hypercapnic resp failure, also in ROBERT over CKD III. 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 Pt noted to be not eating and drinking well, there was concern of hydration. Patient was found to be in ROBERT over CKD stage III, hypercapnic respiratory failure at presentation. Patient was using cefepime for his sacral osteomyelitis treatment for few weeks by the time of presentation. Patient was put on BiPAP, was alert and back to baseline at bedside exam on the first day of exam. Treat underlying cause as below. Hold neuropsych meds as able. pt w/ chronic pain/spasms - resume home meds gradually, may need to cut down on some pain/spasm meds as tolerated, pt agreeable. Acute hypercapnic respiratory failure: Patient noted to be lethargic at presentation, CO2 of 61 in ABG at presentation. Likely secondary to underlying OHS. Admitting CT Head with no acute findings. Admitting CT chest with partial collapse of left lower lobe with underlying infection not excluded. Pulmonology consulted, recommend BPAP 15/10 w/ O2 on DC, sleep study as OP. Patient alert and mentation back to baseline after several hours of BiPAP on the first day. VBG after several hours of BiPAP with PCO2 improvement. Pt will benefit from updated sleep study as OP, he is on 3 L NC O2 during sleep (was prescribed 2L NC O2 during his sleep study several years ago per pt). c/w BPAP HS and prn. Acute kidney injury over CKD stage III: Patient's admitting BUN and creatinine were 57 and 2.56, up trended following day. Patient noted to have poor appetite and poor fluid intake prior to arrival. Likely prerenal. Baseline creatinine around . 2019 echo with EF of 65 to 70%. Hold nephrotoxic's, patient receiving IV fluid. Nephrology on board, appreciate recommendation. lasix (& hence kcl) & aldactone on hold. Leukocytosis: WBC of 17.14K at presentation. Patient does appear to have chronic leukocytosis likely secondary to chronic osteomyelitis. Part of it may be contributed due to hemoconcentration secondary to poor appetite prior to arrival. Procalcitonin was negative at presentation. We will follow-up admitting blood and urine culture. Pt afebrile, wbc improved/but fluctuates in this range mostly. ID evaled, see below. Stage IV decubitus ulcer, history of Sacral osteomyelitis Concern for recurrent UTI, CAUTI: Patient with chronic suprapubic catheter [see above]. Urine looks clean at bedside exam on first day, patient was noted to have Pseudomonas in his urine on 02/11/2023. For which he is being covered with cefepime itself. On chronic methenamine suppression Rx - will hold while on antibiotic actively. cefepime changed to ceftazidime 03/04/23, ID Evaled - ok w/ current dose of ceftazidime; CRP now and QotherWk; CMP/CBC w/ diff weekly while on atb. End date of atb 03/24/23. Patient is a status post debridement of sacral ulcer by Dr. Srivastava on 02/11/2023 [previous admission]. Patient was being treated with septic time for sacral osteomyelitis. 02/11 wound culture with Pseudomonas aeruginosa. Patient was eval uated by ID and recommended 6 weeks of IV cefepime at the time. PICC line was placed on 02/18. Wound care on board Pt will need close f/u w/ ID on DC. Seizure disorder:For breakthrough seizure in his 02/09 to 02/19 admission while on Keppra, his Keppra was changed to Depakote after neurology evaluation. Later patient self-discontinued Depakote due to intolerance. Evaluated by neurology again during his 02/23 - 02/26 admission, he was put back on Keppra with increased dose to 750 Mg twice daily from 500 mg BID in the past. Continue the home dose of Keppra. Patient to continue follow-up with his neurology upon discharge. Other chronic medical conditions:Resume/continue home meds as able Insulin-dependent T2DM: A1c of 6.9 this admission, glycemic pharmacy on board, sliding scale insulin. Neurogenic bladder/suprapubic cath in place/history of recurrent UTIs: hold methenamine hippurate until actively on antibiotic Rx. Colostomy status: Colostomy in place to prevent wound swelling, continue routine ostomy care Chronic anticoagulation secondary to coagulation disorder: Monitor INR daily or as needed, continue with home warfarin dose when appropriate, currently on hold, inr in AM. Chronic quadriplegia secondary to traumatic accident: Continue supportive care Hypothyroidism: TSH minimally elevated, free T4 WNL, continue home levothyrox ine. Repeat TFT in 6 weeks. DVT prophylaxis: on Warfarin, hold today, f/u INR in AM. Full code Dispo: PCU Patient's Ms. Rody Rodriguez, contact #[phone]. Admission and Anticipated Discharge Date Admission Date: March 04, 2023 Subjective Patient seen and examined at bedside as a follow-up of metabolic encephalopathy, hypercapnic respiratory failure/possible underlying OHS, recurrent complicated UTI, acute kidney injury over CKD III. Patient was lying in bed, on 2L NC O2, NAD, is alert at bedside exam, reports feeling better, denies any pain. Use BiPAP while sleeping. Pt agreeable to cut down on some of his antispasmodic meds/pain meds as he has too many. He also states he uses marijuana once a day/medical. Reports eating ok. Physical Exam Physical Exam: GENERAL: Alert and oriented x3. NAD, on BPAP. Obese class III. HEENT: No pallor, no icterus. Pupils equal, round and reactive to light. Oral mucosa moist. NECK: No JVD, no neck masses. HEART: S1 and S2 heard. Regular rate and rhythm. No murmur, no gallop. RESPIRATORY SYSTEM: Normal AP diameter. No accessory muscle use. No wheezing, no crackles. ABDOMEN: Soft, bowel sounds present, nontender, no distention. Stoma bag w/ fecal output. Suprapubic cath noted. CENTRAL NERVOUS SYSTEM: No facial droop. Speech is clear. Obeys simple commands. Quadriplegia noted w/ BLE paralysis and BUE paresis. EXTREMITIES: trace ble edema, no erythema seen. Results & Data Results & Data Vital Signs (Past 12 Hours) Vital Signs Temp Pulse Resp BP Pulse Ox O2 Del Method O2 Flow Rate 03/05/23 12:43 36.4 C L 81 18 103/61 95 Room Air 03/05/23 08:34 36.4 C L 71 18 100/61 94 Room Air 03/05/23 04:06 36.7 C 89 16 114/59 L 99 Nasal Cannula 2 (1) Altered mental status Altered mental status type: somnolence Qualified Code(s): R40.0 - Somnolence
--- NOTE | 2023-03-05 18:12 | Nephrology Progress Note ---
Date of Service March 05, 2023 Assessment & Plan (1) ROBERT (acute kidney injury): Plan: Baseline creatinine is one. Presenting creatinine 03/03 PM 2/, up to 2.7 03/04. DDx prerenal versus ATN versus possibly AIN from cephalosporins; unable to evaluate AIN meaningfully d/t chronic urbina/chronically inflamed urine he is about 6L positive on the admission so no further hydration needed treat infection and monitor response; clinically improving agree w/ holding spironolactone, lasix, metformin, K supplements >>BP labile; would continue to hold daily bmp if no improvement tomorrow consider renal imaging, though nothing in hx to suggest obstructive process currently no indication for discussion of dialysis Admission and Anticipated Discharge Date Admission Date: March 04, 2023 Subjective no acute interval events. pulm recommends eval for conner, for OHS; ID recommended change cefepime to ceftaz. pt alert, bereathing better, taking po Review of Systems Review of Systems: All systems reviewed & are unremarkable except as noted in Subjective Physical Exam Constitutional: well developed, well nourished, + physical limitations and cooperative; no acute distress Eyes: EOM intact bilaterally ENMT: Ears: no external ear abnormality Nose: no external nose abnormality Mouth: + dry oral mucous membranes Neck: no nuchal rigidity Respiratory: normal respiratory effort Auscultation: + diminished lung sounds Cardiovascular: RRR, no murmur, no edema Gastrointestinal (Abdomen): Inspection/Auscultation: normal bowel sounds; + abdomen abnormal to inspection (colostomy present) Percussion/Palpation: abdomen soft; abdomen nontender Musculoskeletal: Extremities: + limited ROM of extremities, strength 5/5 throughout and + abnormal strength Skin: no rashes, warm and dry Results & Data Vital Signs (Past 12 Hours) Vital Signs Temp Pulse Pulse Resp BP Pulse Ox O2 Del Method 03/05/23 08:00 88 03/05/23 16:37 36.3 C L 87 18 151/73 H 99 Nasal Cannula 03/05/23 12:43 36.4 C L 81 18 103/61 95 Room Air 03/05/23 08:34 36.4 C L 71 18 100/61 94 Room Air O2 Flow Rate 03/05/23 08:00 03/05/23 16:37 2 03/05/23 12:43 06/30/23 08:34 Laboratory Results 03/05/23 06:34 03/05/23 06:34
[2023-03-05] MEDS: ATORVASTATIN 40 MG TAB PO SCH (21:12)
--- NOTE | 2023-03-05 21:58 | Ultrasound Report ---
ULTRASOUND KIDNEYS AND BLADDER CLINICAL HISTORY: Acute renal insufficiency. COMPARISON STUDY: Abdominal CT dated 02/23/2023. TECHNIQUE: Real-time, grayscale, and color flow sonography of the kidneys and bladder is performed. I mages are reviewed in the transverse and longitudinal planes. FINDINGS: Kidneys: The kidneys demonstrate mild cortical atrophy. Echotexture is normal. The right kidney measu res 12.8 cm in length and the left kidney measures 14.0 cm in length. There is no hydronephrosis. No shadowing renal calculi are identified. There is no sonographic evidence of contour deforming renal mass lesion. No perinephric fluid is identified. Bladder: The bladder is decompressed around a suprapubic catheter and could not be evaluated. IMPRESSION: 1. The kidneys demonstrate mild cortical atrophy and are without hydronephrosis. 2. The bladder was decompressed around a suprapubic catheter and could not be assessed. ACT 112: Negative or not required by law. Electronically signed by: José Wise M.D. 03/05/2023 9:57 PM
[2023-03-06] MEDS: MAGNESIUM OXIDE 400 MG TAB PO SCH ×2 (00:27→12:04)
[2023-03-06] MEDS: ACETAMINOPHEN 325 MG TAB PO PRN (04:06)
[2023-03-06] MEDS: BACLOFEN 10 MG TAB PO SCH ×3 (05:18→18:06)
[2023-03-06] MEDS: LEVOTHYROXINE SODIUM 25 MCG TABLET PO SCH (05:36)
[2023-03-06 07:09] LABS: Hematocrit (blood only) 32.3 % (42.0-52.0); Hemoglobin 10.1 g/dl (14.0-18.0); Mean Corpuscular Hemoglobin 28.5 pg (25.0-34.0); Mean Corpuscular Hgb Conc 31.3 g/dL (32.0-36.0); Mean Corpuscular Volume 91.2 fL (80.0-100.0); Mean Platelet Volume 9.9 fL (9.4-12.4); Platelet Count 177 K/uL (130-400); RDW Coefficient of Variation 18.6 % (11.5-14.5); RDW Standard Deviation 61.4 fL (36.4-46.3); Red Blood Count 3.54 M/uL (4.70-6.10); White Blood Count 13.21 K/ul (4.8-10.8)
[2023-03-06 07:35] LABS: BUN Creatinine Ratio 18.3 (10-20); Calcium 8.1 mg/dl (8.6-10.3); Creatinine Clr Calc Pharmacy 34.1 ml/min; Magnesium 1.9 mg/dl (1.7-2.4); Phosphorus 4.1 mg/dl (2.5-4.9); Potassium 4.3 mmol/L (3.5-5.1)
[2023-03-06 08:27] LABS: Prothrombin Time 57.9 Seconds (9.0-12.0)
[2023-03-06 08:31] LABS: INR 5.9 (0.9-1.1)
[2023-03-06] MEDS ORDERED: PHYTONADIONE 5 MG TAB PO STA (08:41)
[2023-03-06] MEDS: FAMOTIDINE 20 MG TAB PO SCH ×2 (09:12→21:20)
[2023-03-06] MEDS: ADVANCED PROBIOTIC 1250 MG CAPSULE PO SCH ×2 (09:12→21:19)
[2023-03-06] MEDS: allopurinoL 100 MG TAB PO SCH ×2 (09:12→21:21)
[2023-03-06] MEDS: ESCITALOPRAM OXALATE 20 MG TAB PO SCH (09:12)
[2023-03-06] MEDS: METOPROLOL TARTRATE 25 MG TAB PO SCH (09:13)
[2023-03-06] MEDS: NYSTATIN POWDER 15GM BTL EXT SCH ×2 (09:14→21:24)
[2023-03-06] MEDS: PANTOprazole 40 MG TAB PO SCH ×2 (09:14→21:20)
[2023-03-06] MEDS: levETIRAcetam 750 MG in 0.9 % SODIUM CHLORIDE 100 ML IV SCH ×2 (09:18→21:22)
[2023-03-06] MEDS: DOCUSATE SODIUM 100 MG CAP PO SCH ×2 (09:25→21:22)
[2023-03-06] MEDS: INSULIN ASPART PER UNIT CHARGE SC SCH ×4 (10:23→21:22)
--- NOTE | 2023-03-06 10:56 | Nephrology Progress Note ---
Date of Service March 06, 2023 Assessment & Plan (1) ROBERT (acute kidney injury): Plan: Baseline creatinine is one. Presenting creatinine 03/03 PM 2/, up to 2.7 03/04. Etiology is likely ischemic ATN in setting of urosepsis. Creatinine still uptrending to 3.28 today. Urine output has however increased to 3 L in the past 24 hours. -Monitor input output and daily BMP. Increased urine output is reassuring and creatinine is expected to start downtrending no indication for discussion of dialysis Admission and Anticipated Discharge Date Admission Date: March 04, 2023 Subjective Seen for ROBERT. Patient looks better today. No shortness of breath. Output from colostomy bag is about the same. Urine output was 3 L. Review of Systems Review of Systems: All other systems were reviewed and negative except as noted in HPI Physical Exam Physical Exam: General exam: Appears comfortable, no acute distress HEENT: Pupils are equal and reactive to light Neck: No JVD, neck is supple trachea is midline Respiratory system: Clear breath sounds bilaterally. Gastrointestinal: Abdomen is soft, colostomy bag present CVS: Regular rate and rhythm. No murmurs, rubs or gallops Musculoskeletal: No joint or muscle tenderness Extremities: Non tender, no edema, peripheral pulses are present Neuro: Oriented, no tremors, no focal neurological deficits Skin: No rashes Results & Data Vital Signs (Past 12 Hours) Vital Signs Temp Pulse Pulse Resp BP Pulse Ox Pulse Ox 03/06/23 07:52 03/06/23 07:00 36.4 C L 107 H 18 122/71 97 03/06/23 06:00 98 03/06/23 02:30 12 92 03/06/23 04:12 36.5 C 104 H 20 120/69 98 03/05/23 23:30 90 16 91 03/06/23 00:06 101 H 03/06/23 00:06 O2 Del Method O2 Del Method O2 Flow Rate O2 Flow Rate 03/06/23 07:52 Room Air 03/06/23 07:00 Room Air 03/06/23 06:00 CPAP 2 03/06/23 02:30 3 03/06/23 04:12 CPAP 03/05/23 23:30 3 03/06/23 00:06 03/06/23 00:06 Nasal Cannula 2 Laboratory Results 03/06/23 06:05 03/06/23 03/06/23 06:05 06:05 WBC 13.21 H RBC 3.54 L MCV 91.2 MCH 28.5 MCHC 31.3 L RDW Std Deviation 61.4 H RDW Coeff of Yoseph 18.6 H Plt Count 177 MPV 9.9 Phosphorus 4.1
[2023-03-06] MEDS: tiZANidine HCL 4 MG TABLET PO SCH (12:29)
--- NOTE | 2023-03-06 15:10 | Hospitalist Progress Note ---
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 In the ED, he was found to be in hypercapnic resp failure, also in ROBERT over CKD III. 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 Pt noted to be not eating and drinking well, there was concern of hydration. Patient was found to be in ROBERT over CKD stage III, hypercapnic respiratory failure at presentation. Patient was using cefepime for his sacral osteomyelitis treatment for few weeks by the time of presentation. Patient was put on BiPAP, was alert and back to baseline at bedside exam on the first day of exam. Treat underlying cause as below. Hold neuropsych meds as able. pt w/ chronic pain/spasms - resume home meds gradually, may need to cut down on some pain/spasm meds as tolerated, pt agreeable. Acute hypercapnic respiratory failure: Patient noted to be lethargic at presentation, CO2 of 61 in ABG at presentation. Likely secondary to underlying OHS. Admitting CT Head with no acute findings. Admitting CT chest with partial collapse of left lower lobe with underlying infection not excluded. Pulmonology consulted, recommend BPAP 15/10 w/ O2 on DC, sleep study as OP. Patient alert and mentation back to baseline after several hours of BiPAP on the first day. VBG after several hours of BiPAP with PCO2 improvement. Pt will benefit from updated sleep study as OP, he is on 3 L NC O2 during sleep (was prescribed 2L NC O2 during his sleep study several years ago per pt). c/w BPAP HS and prn. Acute kidney injury over CKD stage III: Patient's admitting BUN and creatinine were 57 and 2.56, up trended following day. Patient noted to have poor appetite and poor fluid intake prior to arrival. Likely prerenal. Baseline creatinine around 1. Renal ultrasound without obstruction. 2019 echo with EF of 65 to 70%. Hold nephrotoxics. Nephrology on board, appreciate recommendation. lasix (& hence kcl) & aldactone on hold. Monitor BMP. Leukocytosis: WBC of 17.14K at presentation. Patient does appear to have chroni c leukocytosis likely secondary to chronic osteomyelitis. Part of it may be contributed due to hemoconcentration secondary to poor appetite prior to arrival. Procalcitonin was negative at presentation. We will follow-up admitting blood and urine culture. Pt afebrile, wbc mostly fluctuates around 13- 14 K. ID evaled, see below. Stage IV decubitus ulcer, history of Sacral osteomyelitis Concern for recurrent UTI, CAUTI: Patient with chronic suprapubic catheter [see above]. Urine looks clean at bedside exam on first day, patient was noted to have Pseudomonas in his urine on 02/11/2023. For which he is being covered with cefepime itself. On chronic methenamine suppression Rx - will hold while on antibiotic actively. cefepime changed to ceftazidime 03/04/23, ID Evaled - ok w/ current dose of ceftazidime; CRP now and QotherWk; CMP/CBC w/ diff weekly while on atb. End date of atb 03/24/23. Patient is a status post debridement of sacral ulcer by Dr. Srivastava on 02/11/2023 [previous admission]. Patient was being treated with cefepime for sacral osteomyelitis. 02/11 wound culture with Pseudomonas aeruginosa. Patient was evaluated by ID and recommended 6 weeks of IV cefepime at that time. PICC line was placed on 02/18. Wound care on board Pt will need close f/u w/ ID on DC. Seizure disorder:For breakthrough seizure in his 02/09 to 02/19 admission while on Keppra, his Keppra was changed to Depakote after neurology evaluation. Later patient self-discontinued Depakote due to intolerance. Evaluated by neurology again during his 02/23 - 02/26 admission, he was put back on Keppra with increased dose to 750 Mg twice daily from 500 mg BID in the past. Continue the home dose of Keppra. Patient to continue follow-up with his neurology upon discharge. Other chronic medical conditions:Resume/continue home meds as able Insulin-dependent T2DM: A1c of 6.9 this admission, glycemic pharmacy on board, sliding scale insulin. Neurogenic bladder/suprapubic cath in place/history of recurrent UTIs: hold methenamine hippurate until actively on antibiotic Rx. Colostomy status: Colostomy in place to prevent wound swelling, continue routine ostomy care Chronic anticoagulation secondary to coagulation disorder: Monitor INR daily or as needed, continue with home warfarin dose when appropriate, currently on hold, inr in AM. Received oral vitamin K due to elevated INR. 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 Repeat TFT in 6 weeks. DVT prophylaxis: on Warfarin, hold today, f/u INR in AM. Full code Dispo: PCU Patient's Ms. Rody Rodriguez, contact #[phone]. Admission and Anticipated Discharge Date Admission Date: March 04, 2023 Subjective Patient seen and examined at bedside as a follow-up of metabolic encephalopathy, hypercapnic respiratory failure/possible underlying OHS, recurrent complicated UTI, acute kidney injury over CKD III. Patient was lying in bed, on RA, NAD, is alert at bedside exam, reports feeling better, denies any pain. Pt to use BiPAP while sleeping. Pt agreeable to cut down on some of his antispasmodic meds/pain meds, pt's at bedside also agreeable. He also states he uses marijuana once a day/medical. Reports eating ok. Patient's at bedside and patient himself were updated about the plan of care. They voiced understanding. Physical Exam Physical Exam: GENERAL: Alert and oriented x3. NAD, on BPAP. Obese class III. HEENT: No pallor, no icterus. Pupils equal, round and reactive to light. Oral mucosa moist. NECK: No JVD, no neck masses. HEART: S1 and S2 heard. Regular rate and rhythm. No murmur, no gallop. RESPIRATORY SYSTEM: Normal AP diameter. No accessory muscle use. No wheezing, no crackles. ABDOMEN: Soft, bowel sounds present, nontender, no distention. Stoma bag w/ fecal output. Suprapubic cath noted. CENTRAL NERVOUS SYSTEM: No facial droop. Speech is clear. Obeys simple commands. Quadriplegia noted w/ BLE paralysis and BUE paresis. EXTREMITIES: trace ble edema, no erythema seen. Results & Data Results & Data Vital Signs (Past 12 Hours) Vital Signs Temp Pulse Pulse Resp BP Pulse Ox Pulse Ox 03/06/23 07:15 101 H 03/06/23 11:00 36.7 C 113 H 18 116/62 94 03/06/23 07:52 03/06/23 07:00 36.4 C L 107 H 18 122/71 97 03/06/23 06:00 98 03/06/23 04:12 36.5 C 104 H 20 120/69 98 O2 Del Method O2 Del Method O2 Flow Rate 03/06/23 07:15 03/06/23 11:00 Room Air 03/06/23 07:52 Room Air 03/06/23 07:00 Room Air 03/06/23 06:00 CPAP 2 03/06/23 04:12 CPAP (1) Altered mental status Altered mental status type: somnolence Qualified Code(s): R40.0 - Somnolence
[2023-03-06] MEDS: ATORVASTATIN 40 MG TAB PO SCH (21:20)
[2023-03-07] MEDS: tiZANidine HCL 4 MG TABLET PO SCH ×3 (00:03→23:35)
[2023-03-07] MEDS: MAGNESIUM OXIDE 400 MG TAB PO SCH ×3 (00:03→23:35)
[2023-03-07] MEDS: BACLOFEN 10 MG TAB PO SCH ×5 (01:33→23:35)
[2023-03-07] MEDS: LEVOTHYROXINE SODIUM 25 MCG TABLET PO SCH (06:07)
[2023-03-07 06:32] LABS: Hematocrit (blood only) 28.5 % (42.0-52.0); Hemoglobin 9.1 g/dl (14.0-18.0); Mean Corpuscular Hgb Conc 31.9 g/dL (32.0-36.0); Mean Corpuscular Volume 90.8 fL (80.0-100.0); Mean Platelet Volume 10.3 fL (9.4-12.4); Platelet Count 181 K/uL (130-400); RDW Coefficient of Variation 18.9 % (11.5-14.5); RDW Standard Deviation 63.5 fL (36.4-46.3); Red Blood Count 3.14 M/uL (4.70-6.10); White Blood Count 11.54 K/ul (4.8-10.8)
[2023-03-07 06:50] LABS: C Reactive Protein 13.87 mg/dl (0-0.5); Calcium 8.1 mg/dl (8.6-10.3); Creatinine Clr Calc Pharmacy 33.2 ml/min; Est GFR (African American) 21.2 ml/min; Est GFR (Non-African American) 18.3 ml/min; Phosphorus 2.6 mg/dl (2.5-4.9); Potassium 4.2 mmol/L (3.5-5.1)
[2023-03-07 07:48] LABS: INR 2.3 (0.9-1.1); Prothrombin Time 24.2 Seconds (9.0-12.0)
[2023-03-07] MEDS: NYSTATIN POWDER 15GM BTL EXT SCH ×2 (08:45→20:22)
[2023-03-07] MEDS: ADVANCED PROBIOTIC 1250 MG CAPSULE PO SCH ×2 (08:46→20:21)
[2023-03-07] MEDS: allopurinoL 100 MG TAB PO SCH ×2 (08:46→20:21)
[2023-03-07] MEDS: FAMOTIDINE 20 MG TAB PO SCH ×2 (08:46→20:21)
[2023-03-07] MEDS: PANTOprazole 40 MG TAB PO SCH ×2 (08:46→20:21)
[2023-03-07] MEDS: ESCITALOPRAM OXALATE 20 MG TAB PO SCH (08:47)
[2023-03-07] MEDS: METOPROLOL TARTRATE 25 MG TAB PO SCH (08:47)
[2023-03-07] MEDS: DOCUSATE SODIUM 100 MG CAP PO SCH ×2 (08:47→20:21)
[2023-03-07] MEDS: INSULIN ASPART PER UNIT CHARGE SC SCH ×4 (09:01→20:43)
[2023-03-07] MEDS: levETIRAcetam 750 MG in 0.9 % SODIUM CHLORIDE 100 ML IV SCH ×2 (09:02→20:22)
--- NOTE | 2023-03-07 11:38 | Nephrology Progress Note ---
Date of Service March 07, 2023 Assessment & Plan (1) ROBERT (acute kidney injury): Plan: Baseline creatinine is one. Presenting creatinine 03/03 PM 2/, up to 2.7 03/04. Etiology is likely ischemic ATN in setting of urosepsis. Creatinine still uptrending to 3.38 today. Urine output has however increased about 1.8 L in the past 24 hours. -Monitor input output and daily BMP. Increased urine output is reassuring and creatinine is expected to start downtrending no indication for discussion of dialysis Admission and Anticipated Discharge Date Admission Date: March 04, 2023 Subjective Seen for acute kidney injury. Patient feels better. No shortness of breath. Urine output of 1.8 L and patient was net even Review of Systems Review of Systems: All other systems were reviewed and negative except as noted in HPI Physical Exam Physical Exam: General exam: Appears comfortable, no acute distress HEENT: Pupils are equal and reactive to light Neck: No JVD, neck is supple trachea is midline Respiratory system: Clear breath sounds bilaterally. Gastrointestinal: Abdomen is soft, colostomy bag present CVS: Regular rate and rhythm. No murmurs, rubs or gallops Musculoskeletal: No joint or muscle tenderness Extremities: Non tender, no edema, peripheral pulses are present Neuro: Oriented, no tremors, no focal neurological deficits Skin: No rashes Results & Data Vital Signs (Past 12 Hours) Vital Signs Temp Pulse Pulse Resp BP Pulse Ox Pulse Ox 03/07/23 11:00 36.8 C 91 H 18 114/68 93 03/07/23 10:41 03/07/23 07:15 82 03/07/23 07:00 36.5 C 74 18 99/61 L 98 03/07/23 06:00 100 03/07/23 04:19 36.8 C 85 18 109/69 98 03/07/23 03:25 19 O2 Del Method O2 Del Method O2 Flow Rate 03/07/23 11:00 Room Air 03/07/23 10:41 Room Air 03/07/23 07:15 03/07/23 07:00 BiPAP 30 03/07/23 06:00 BiPAP 03/07/23 04:19 CPAP 03/07/23 03:25 3
--- NOTE | 2023-03-07 14:59 | Hospitalist Progress Note ---
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 In the ED, he was found to be in hypercapnic resp failure, also in ROBERT over CKD III. 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 Pt noted to be not eating and drinking well, there was concern of hydration. Patient was found to be in ROBERT over CKD stage III, hypercapnic respiratory failure at presentation. Patient was using cefepime for his sacral osteomyelitis treatment for few weeks by the time of presentation. Patient was put on BiPAP, was alert and back to baseline at bedside exam on the first day of exam. Treat underlying cause as below. Hold neuropsych meds as able. pt w/ chronic pain/spasms - resume home meds gradually, may need to cut down on some pain/spasm meds as tolerated, pt agreeable. Acute hypercapnic respiratory failure: Patient noted to be lethargic at presentation, CO2 of 61 in ABG at presentation. Likely secondary to underlying OHS. Admitting CT Head with no acute findings. Admitting CT chest with partial collapse of left lower lobe with underlying infection not excluded. Pulmonology consulted, recommend BPAP 15/10 w/ O2 on DC, sleep study as OP. Patient alert and mentation back to baseline after several hours of BiPAP on the first day. VBG after several hours of BiPAP with PCO2 improvement. Pt will benefit from updated sleep study as OP, he is on 3 L NC O2 during sleep (was prescribed 2L NC O2 during his sleep study several years ago per pt). c/w BPAP HS and prn. Acute kidney injury over CKD stage III: Patient's admitting BUN and creatinine were 57 and 2.56, up trended following day. Patient noted to have poor appetite and poor fluid intake prior to arrival. Likely prerenal. Baseline creatinine around 1. Renal ultrasound without obstruction. 2019 echo with EF of 65 to 70%. Hold nephrotoxics. Nephrology on board, appreciate recommendation. lasix (& hence kcl) & aldactone on hold. Monitor BMP. Leukocytosis: WBC of 17.14K at presentation. Patient does appear to have chroni c leukocytosis likely secondary to chronic osteomyelitis. Part of it may be contributed due to hemoconcentration secondary to poor appetite prior to arrival. Procalcitonin was negative at presentation. We will follow-up admitting blood and urine culture. Pt afebrile, wbc mostly fluctuates around 13- 14 K. ID evaled, see below. Stage IV decubitus ulcer, history of Sacral osteomyelitis Concern for recurrent UTI, CAUTI: Patient with chronic suprapubic catheter [see above]. Urine looks clean at bedside exam on first day, patient was noted to have Pseudomonas in his urine on 02/11/2023. For which he is being covered with cefepime itself. On chronic methenamine suppression Rx - will hold while on antibiotic actively. cefepime changed to ceftazidime 03/04/23, ID Evaled - ok w/ current dose of ceftazidime; CRP now and QotherWk; CMP/CBC w/ diff weekly while on atb. End date of atb 03/24/23. Patient is a status post debridement of sacral ulcer by Dr. Srivastava on 02/11/2023 [previous admission]. Patient was being treated with cefepime for sacral osteomyelitis. 02/11 wound culture with Pseudomonas aeruginosa. Patient was evaluated by ID and recommended 6 weeks of IV cefepime at that time. PICC line was placed on 02/18. Wound care on board Pt will need close f/u w/ ID on DC. Seizure disorder:For breakthrough seizure in his 02/09 to 02/19 admission while on Keppra, his Keppra was changed to Depakote after neurology evaluation. Later patient self-discontinued Depakote due to intolerance. Evaluated by neurology again during his 02/23 - 02/26 admission, he was put back on Keppra with increased dose to 750 Mg twice daily from 500 mg BID in the past. Continue the home dose of Keppra. Patient to continue follow-up with his neurology upon discharge. Other chronic medical conditions:Resume/continue home meds as able Insulin-dependent T2DM: A1c of 6.9 this admission, glycemic pharmacy on board, sliding scale insulin. Neurogenic bladder/suprapubic cath in place/history of recurrent UTIs: hold methenamine hippurate until actively on antibiotic Rx. Colostomy status: Colostomy in place to prevent wound swelling, continue routine ostomy care Chronic anticoagulation secondary to coagulation disorder: Monitor INR daily or as needed, continue with home warfarin at reduced dose of 5 mg daily due to supratherapeutic INR at presentation. INR today therapeutic, warfarin resumed. 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 Repeat TFT in 6 weeks. DVT prophylaxis: on Warfarin Full code Dispo: PCU Patient's Ms. Rody Rodriguez, contact #[phone]. Admission and Anticipated Discharge Date Admission Date: March 04, 2023 Subjective Patient seen and examined at bedside as a follow-up of metabolic encephalopathy, hypercapnic respiratory failure/possible underlying OHS, recurrent complicated UTI, acute kidney injury over CKD III. Patient was lying in bed, on RA, NAD, is alert at bedside exam, reports feeling better, denies any pain. Pt to use BiPAP while sleeping, using overnight per pt. Pt agreeable to cut down on some of his antispasmodic meds/pain meds. He also states he uses marijuana once a day/medical. Reports eating ok, reports usual GI stoma output. Physical Exam Physical Exam: GENERAL: Alert and oriented x3. NAD, on BPAP. Obese class III. HEENT: No pallor, no icterus. Pupils equal, round and reactive to light. Oral mucosa moist. NECK: No JVD, no neck masses. HEART: S1 and S2 heard. Regular rate and rhythm. No murmur, no gallop. RESPIRATORY SYSTEM: Normal AP diameter. No accessory muscle use. No wheezing, no crackles. ABDOMEN: Soft, bowel sounds present, nontender, no distention. Stoma bag w/ fecal output. Suprapubic cath noted. CENTRAL NERVOUS SYSTEM: No facial droop. Speech is clear. Obeys simple commands. Quadriplegia noted w/ BLE paralysis and BUE paresis. EXTREMITIES: trace ble edema, no erythema seen. Results & Data Results & Data Vital Signs (Past 12 Hours) Vital Signs Temp Pulse Pulse Resp BP Pulse Ox Pulse Ox 03/07/23 11:00 36.8 C 91 H 18 114/68 93 03/07/23 10:41 03/07/23 07:15 82 03/07/23 07:00 36.5 C 74 18 99/61 L 98 03/07/23 06:00 100 03/07/23 04:19 36.8 C 85 18 109/69 98 03/07/23 03:25 19 O2 Del Method O2 Del Method O2 Flow Rate 03/07/23 11:00 Room Air 03/07/23 10:41 Room Air 03/07/23 07:15 03/07/23 07:00 BiPAP 30 03/07/23 06:00 BiPAP 03/07/23 04:19 CPAP 03/07/23 03:25 3 (1) Altered mental status Altered mental status type: somnolence Qualified Code(s): R40.0 - Somnolence
[2023-03-07] MEDS: WARFARIN SOD 5 MG TAB PO SCH (17:43)
[2023-03-07] MEDS: INSULIN HUMAN NPH SC SCH (17:45)
[2023-03-07] MEDS: ATORVASTATIN 40 MG TAB PO SCH (20:21)
[2023-03-08] MEDS: LEVOTHYROXINE SODIUM 25 MCG TABLET PO SCH (05:48)
[2023-03-08] MEDS: BACLOFEN 10 MG TAB PO SCH ×4 (05:56→17:20)
[2023-03-08 06:42] LABS: BUN Creatinine Ratio 23.2 (10-20); Calcium 8.6 mg/dl (8.6-10.3); Creatinine Clr Calc Pharmacy 31.4 ml/min; Est GFR (African American) 19.8 ml/min; Est GFR (Non-African American) 17.1 ml/min; Potassium 4.5 mmol/L (3.5-5.1)
[2023-03-08 06:46] LABS: INR 1.6 (0.9-1.1); Prothrombin Time 17.1 Seconds (9.0-12.0)
[2023-03-08] MEDS: INSULIN HUMAN NPH SC SCH ×2 (08:06→17:19)
[2023-03-08] MEDS: INSULIN ASPART PER UNIT CHARGE SC SCH ×4 (08:06→20:32)
[2023-03-08] MEDS: FAMOTIDINE 20 MG TAB PO SCH ×2 (08:07→20:13)
[2023-03-08] MEDS: allopurinoL 100 MG TAB PO SCH ×2 (08:08→20:13)
[2023-03-08] MEDS: ESCITALOPRAM OXALATE 20 MG TAB PO SCH (08:08)
[2023-03-08] MEDS: ADVANCED PROBIOTIC 1250 MG CAPSULE PO SCH ×2 (08:08→20:13)
[2023-03-08] MEDS: METOPROLOL TARTRATE 25 MG TAB PO SCH (08:08)
[2023-03-08] MEDS: PANTOprazole 40 MG TAB PO SCH ×2 (08:08→20:12)
[2023-03-08] MEDS: NYSTATIN POWDER 15GM BTL EXT SCH ×2 (08:09→20:14)
[2023-03-08] MEDS: DOCUSATE SODIUM 100 MG CAP PO SCH ×2 (08:09→20:13)
[2023-03-08] MEDS: levETIRAcetam 750 MG in 0.9 % SODIUM CHLORIDE 100 ML IV SCH ×2 (08:09→20:12)
[2023-03-08] MEDS: tiZANidine HCL 4 MG TABLET PO SCH ×2 (12:13→23:30)
[2023-03-08] MEDS: MAGNESIUM OXIDE 400 MG TAB PO SCH ×2 (12:13→23:30)
--- NOTE | 2023-03-08 14:55 | Nephrology Progress Note ---
Date of Service March 08, 2023 Assessment & Plan (1) ROBERT (acute kidney injury): Plan: Baseline creatinine is one. Presenting creatinine 03/03 PM 2/, this has now peaked and I expect improvement. Etiology is likely ischemic ATN in setting of urosepsis. Urine output has however increased to 2 2 lit. -Monitor input output and daily BMP. Increased urine output is reassuring and creatinine is expected to start downtrending no indication for discussion of dialysis Admission and Anticipated Discharge Date Admission Date: March 04, 2023 Subjective Patient seen and examined at bedside as a follow-up of metabolic encephalopathy, hypercapnic respiratory failure/possible underlying OHS, recurrent complicated UTI, acute kidney injury over CKD III. Patient was lying in bed, on RA, NAD Review of Systems Review of Systems: All other systems were reviewed and negative except as noted in HPI Results & Data Vital Signs (Past 12 Hours) Vital Signs Temp Pulse Pulse Resp BP Pulse Ox O2 Del Method 03/08/23 11:00 36.7 C 97 H 18 133/72 97 Room Air 03/08/23 07:51 86 03/08/23 07:30 36.7 C 89 18 125/71 97 Room Air 03/08/23 07:30 Nasal Cannula O2 Flow Rate 03/08/23 11:00 03/08/23 07:51 03/08/23 07:30 03/08/23 07:30 2 Laboratory Results 03/07/23 05:25 03/08/23 05:25
[2023-03-08] MEDS: WARFARIN SOD 5 MG TAB PO SCH (16:17)
[2023-03-08] MEDS ORDERED: hydrOXYzine HCl 10 MG TAB PO PRN (17:26)
--- NOTE | 2023-03-08 17:27 | Hospitalist Progress Note ---
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 In the ED, he was found to be in hypercapnic resp failure, also in ROBERT over CKD III. 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 Pt noted to be not eating and drinking well, there was concern of hydration. Patient was found to be in ROBERT over CKD stage III, hypercapnic respiratory failure at presentation. Patient was using cefepime for his sacral osteomyelitis treatment for few weeks by the time of presentation. Patient was put on BiPAP, was alert and back to baseline at bedside exam on the first day of exam. Treat underlying cause as below. Hold neuropsych meds as able. pt w/ chronic pain/spasms - resume home meds gradually, may need to cut down on some pain/spasm meds as tolerated, pt agreeable. Acute hypercapnic respiratory failure: Patient noted to be lethargic at presentation, CO2 of 61 in ABG at presentation. Likely secondary to underlying OHS. Admitting CT Head with no acute findings. Admitting CT chest with partial collapse of left lower lobe with underlying infection not excluded. Pulmonology consulted, recommend BPAP 15/10 w/ O2 on DC, sleep study as OP. Patient alert and mentation back to baseline after several hours of BiPAP on the first day. VBG after several hours of BiPAP with PCO2 improvement. Pt will benefit from updated sleep study as OP, he is on 3 L NC O2 during sleep (was prescribed 2L NC O2 during his sleep study several years ago per pt). c/w BPAP HS and prn. Acute kidney injury over CKD stage III: Patient's admitting BUN and creatinine were 57 and 2.56, up trended following day. Patient noted to have poor appetite and poor fluid intake prior to arrival. Likely prerenal. Baseline creatinine around 1. Renal ultrasound without obstruction. 2019 echo with EF of 65 to 70%. Hold nephrotoxics. Nephrology on board, appreciate recommendation. lasix (& hence kcl) & aldactone on hold. Monitor BMP. Cr appears pleauted. expect improvement. Leukocytosis: WBC of 17.14K at presentation. Patient does appear to have chronic leukocytosis likely secondary to chronic osteomyelitis. Part of it may be contributed due to hemoconcentration secondary to poor appetite prior to arrival. Procalcitonin was negative at presentation. We will follow-up admitting blood and urine culture. Pt afebrile, wbc mostly fluctuates around 13- 14 K. ID evaled, see below. Stage IV decubitus ulcer, history of Sacral osteomyelitis Concern for recurrent UTI, CAUTI: Patient with chronic suprapubic catheter [see above]. Urine looks clean at bedside exam on first day, patient was noted to have Pseudomonas in his urine on 02/11/2023. For which he is being covered with cefepime itself. On chronic methenamine suppression Rx - will hold while on antibiotic actively. cefepime changed to ceftazidime 03/04/23, ID Evaled - ok w/ current dose of ceftazidime; CRP now and QotherWk; CMP/CBC w/ diff weekly while on atb. End date of atb 03/24/23. Patient is a status post debridement of sacral ulcer by Dr. Srivastava on 02/11/2023 [previous admission]. Patient was being treated with cefepime for sacral osteo myelitis. 02/11 wound culture with Pseudomonas aeruginosa. Patient was evaluated by ID and recommended 6 weeks of IV cefepime at that time. PICC line was placed on 02/18. Wound care on board Pt will need close f/u w/ ID on DC. Seizure disorder:For breakthrough seizure in his 02/09 to 02/19 admission while on Keppra, his Keppra was changed to Depakote after neurology evaluation. Later patient self-discontinued Depakote due to intolerance. Evaluated by neurology again during his 02/23 - 02/26 admission, he was put back on Keppra with increased dose to 750 Mg twice daily from 500 mg BID in the past. Continue the home dose of Keppra. Patient to continue follow-up with his neurology upon discharge. Other chronic medical conditions:Resume/continue home meds as able Insulin-dependent T2DM: A1c of 6.9 this admission, glycemic pharmacy on board, sliding scale insulin. Neurogenic bladder/suprapubic cath in place/history of recurrent UTIs: hold methenamine hippurate until actively on antibiotic Rx. Colostomy status: Colostomy in place to prevent wound swelling, continue routine ostomy care Chronic anticoagulation secondary to coagulation disorder: Monitor INR daily or as needed, continue with home warfarin at reduced dose of 5 mg daily due to supratherapeutic INR at presentation. INR today therapeutic, warfarin resumed. 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 Repeat TFT in 6 weeks. DVT prophylaxis: on Warfarin Full code Dispo: PCU Patient's Ms. Rody Rodriguez, contact #[phone]. Admission and Anticipated Discharge Date Admission Date: March 04, 2023 Subjective Patient seen and examined at bedside as a follow-up of metabolic encephalopathy, hypercapnic respiratory failure/possible underlying OHS, recurrent complicated UTI, acute kidney injury over CKD III. Patient was lying in bed, on RA, NAD, is alert at bedside exam, reports feeling better, denies any pain. Pt to use BiPAP while sleeping, using overnight per pt. patient reports getting anxiety with BiPAP overnight last night. We will add hydroxyzine prn for anxiety. Pt agreeable to cut down on some of his antispasmodic meds/pain meds. He also states he uses marijuana once a day/medic al. Reports eating ok, reports usual GI stoma output. Physical Exam Physical Exam: GENERAL: Alert and oriented x3. NAD, on room air. Obese class III. HEENT: No pallor, no icterus. Pupils equal, round and reactive to light. Oral mucosa moist. NECK: No JVD, no neck masses. HEART: S1 and S2 heard. Regular rate and rhythm. No murmur, no gallop. RESPIRATORY SYSTEM: Normal AP diameter. No accessory muscle use. No wheezing, no crackles. ABDOMEN: Soft, bowel sounds present, nontender, no distention. Stoma bag w/ fecal output. Suprapubic cath noted. CENTRAL NERVOUS SYSTEM: No facial droop. Speech is clear. Obeys simple commands. Quadriplegia noted w/ BLE paralysis and BUE paresis. EXTREMITIES: trace ble edema, no erythema seen. Results & Data Results & Data Vital Signs (Past 12 Hours) Vital Signs Temp Pulse Pulse Resp BP Pulse Ox O2 Del Method 03/08/23 15:00 36.9 C 87 18 117/69 96 Room Air 03/08/23 11:00 36.7 C 97 H 18 133/72 97 Room Air 03/08/23 07:51 86 03/08/23 07:30 36.7 C 89 18 125/71 97 Room Air 03/08/23 07:30 Nasal Cannula O2 Flow Rate 03/08/23 15:00 03/08/23 11:00 03/08/23 07:51 03/08/23 07:30 03/08/23 07:30 2 (1) Altered mental status Altered mental status type: somnolence Qualified Code(s): R40.0 - Somnolence
[2023-03-08] MEDS: ATORVASTATIN 40 MG TAB PO SCH (20:14)
[2023-03-08] MEDS ORDERED: busPIRone 7.5 MG TAB PO SCH (21:00)
[2023-03-08] MEDS: ACETAMINOPHEN 325 MG TAB PO PRN (23:29)
[2023-03-09] MEDS: BACLOFEN 10 MG TAB PO SCH ×4 (05:12→23:32)
[2023-03-09] MEDS: LEVOTHYROXINE SODIUM 25 MCG TABLET PO SCH (05:12)
[2023-03-09 06:33] LABS: Hemoglobin 8.7 g/dl (14.0-18.0); Mean Corpuscular Hemoglobin 29.5 pg (25.0-34.0); Mean Corpuscular Hgb Conc 32.2 g/dL (32.0-36.0); Mean Corpuscular Volume 91.5 fL (80.0-100.0); Platelet Count 192 K/uL (130-400); RDW Coefficient of Variation 18.7 % (11.5-14.5); RDW Standard Deviation 63.3 fL (36.4-46.3); Red Blood Count 2.95 M/uL (4.70-6.10); White Blood Count 13.45 K/ul (4.8-10.8)
[2023-03-09 06:47] LABS: BUN Creatinine Ratio 26.5 (10-20); Calcium 8.4 mg/dl (8.6-10.3); Creatinine Clr Calc Pharmacy 31.4 ml/min; Est GFR (Non-African American) 17.2 ml/min; Magnesium 2.1 mg/dl (1.7-2.4); Potassium 4.3 mmol/L (3.5-5.1)
[2023-03-09 07:56] LABS: INR 1.6 (0.9-1.1); Prothrombin Time 17.2 Seconds (9.0-12.0)
[2023-03-09] MEDS: PANTOprazole 40 MG TAB PO SCH ×2 (08:38→19:56)
[2023-03-09] MEDS: METOPROLOL TARTRATE 25 MG TAB PO SCH (08:39)
[2023-03-09] MEDS: FAMOTIDINE 20 MG TAB PO SCH ×2 (08:39→19:58)
[2023-03-09] MEDS: ADVANCED PROBIOTIC 1250 MG CAPSULE PO SCH ×2 (08:40→19:56)
[2023-03-09] MEDS: allopurinoL 100 MG TAB PO SCH ×2 (08:40→19:56)
[2023-03-09] MEDS: ESCITALOPRAM OXALATE 20 MG TAB PO SCH (08:40)
[2023-03-09] MEDS: DOCUSATE SODIUM 100 MG CAP PO SCH ×2 (08:40→19:56)
[2023-03-09] MEDS: levETIRAcetam 750 MG in 0.9 % SODIUM CHLORIDE 100 ML IV SCH ×2 (09:00→19:59)
[2023-03-09] MEDS: NYSTATIN POWDER 15GM BTL EXT SCH ×2 (09:00→19:57)
[2023-03-09] MEDS: INSULIN ASPART PER UNIT CHARGE SC SCH ×4 (09:01→20:11)
[2023-03-09] MEDS: INSULIN HUMAN NPH SC SCH ×2 (09:02→18:00)
[2023-03-09] MEDS ORDERED: WARFARIN SOD 2.5 MG TAB PO ONE (09:36)
[2023-03-09] MEDS: MAGNESIUM OXIDE 400 MG TAB PO SCH ×2 (12:20→23:31)
[2023-03-09] MEDS: tiZANidine HCL 4 MG TABLET PO SCH ×2 (12:20→23:31)
--- NOTE | 2023-03-09 16:00 | Hospitalist Progress Note ---
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 In the ED, he was found to be in hypercapnic resp failure, also in ROBERT over CKD III. 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 Pt noted to be not eating and drinking well, there was concern of hydration. Patient was found to be in ROBERT over CKD stage III, hypercapnic respiratory failure at presentation. Patient was using cefepime for his sacral osteomyelitis treatment for few weeks by the time of presentation. Patient was put on BiPAP, was alert and back to baseline at bedside exam on the first day of exam. Treat underlying cause as below. Hold neuropsych meds as able. pt w/ chronic pain/spasms - resume home meds gradually, may need to cut down on some pain/spasm meds as tolerated, pt agreeable. Acute kidney injury over CKD stage III: Patient's admitting BUN and creatinine were 57 and 2.56, up trended following day. Patient noted to have poor appetite and poor fluid intake prior to arrival. Likely prerenal. Baseline creatinine around 1. Renal ultrasound without obstruction. 2019 echo with EF of 65 to 70%. Hold nephrotoxics. Nephrology on board, appreciate recommendation. lasix (& hence kcl) & aldactone on hold. Monitor BMP. Cr appears pleauted. expect improvement. Acute hypercapnic respiratory failure: Patient noted to be lethargic at presentation, CO2 of 61 in ABG at presentation. Likely secondary to underlying OHS. Admitting CT Head with no acute findings. Admitting CT chest with partial collapse of left lower lobe with underlying infection not excluded. Pulmonology consulted, recommend BPAP 15/10 w/ O2 on DC, sleep study as OP. Patient alert and mentation back to baseline after several hours of BiPAP on the first day. VBG after several hours of BiPAP with PCO2 improvement. Pt will benefit from updated sleep study as OP, he is on 3 L NC O2 during sleep (was prescribed 2L NC O2 during his sleep study several years ago per pt). c/w BPAP HS and prn. Leukocytosis: WBC of 17.14K at presentation. Patient does appear to have chronic leukocytosis likely secondary to chronic osteomyelitis. Part of it may be contributed due to hemoconcentration secondary to poor appetite prior to arrival. Procalcitonin was negative at presentation. We will follow-up admitting blood and urine culture. Pt afebrile, wbc mostly fluctuates around 13- 14 K. ID evaled, see below. Stage IV decubitus ulcer, history of Sacral osteomyelitis Concern for recurrent UTI, CAUTI: Patient with chronic suprapubic catheter [see above]. Urine looks clean at bedside exam on first day, patient was noted to have Pseudomonas in his urine on 02/11/2023. For which he is being covered with cefepime itself. On chronic methenamine suppression Rx - will hold while on antibiotic actively. cefepime changed to ceftazidime 03/04/23, ID Evaled - ok w/ current dose of ceftazidime; CRP now and QotherWk; CMP/CBC w/ diff weekly while on atb. End date of atb 03/24/23. Patient is a status post debridement of sacral ulcer by Dr. Srivastava on 02/11/2023 [previous admission]. Patient was being treated with cefepime for sacral osteo myelitis. 02/11 wound culture with Pseudomonas aeruginosa. Patient was evaluated by ID and recommended 6 weeks of IV cefepime at that time. PICC line was placed on 02/18. Wound care on board Pt will need close f/u w/ ID on DC. Seizure disorder:For breakthrough seizure in his 02/09 to 02/19 admission while on Keppra, his Keppra was changed to Depakote after neurology evaluation. Later patient self-discontinued Depakote due to intolerance. Evaluated by neurology again during his 02/23 - 02/26 admission, he was put back on Keppra with increased dose to 750 Mg twice daily from 500 mg BID in the past. Continue the home dose of Keppra. Patient to continue follow-up with his neurology upon discharge. Other chronic medical conditions:Resume/continue home meds as able Insulin-dependent T2DM: A1c of 6.9 this admission, glycemic pharmacy on board, sliding scale insulin. Neurogenic bladder/suprapubic cath in place/history of recurrent UTIs: hold methenamine hippurate until actively on antibiotic Rx. Colostomy status: Colostomy in place to prevent wound swelling, continue routine ostomy care Chronic anticoagulation secondary to coagulation disorder: Monitor INR daily or as needed, continue with home warfarin at reduced dose of 5 mg daily due to supratherapeutic INR at presentation. INR today subtherapeutic, extra warfarin dose of 2.5mg on top of daily 5 mg. pt/inr in am. Chronic quadriplegia secondary to traumatic accident: Continue supportive care Hypothyroidism: TSH minimally elevated, free T4 WNL, continue home levoth yroxine. Repeat TFT in 6 weeks. DVT prophylaxis: on Warfarin Full code Dispo: CM to assist w/ dc plan, pending nephrology clearance. Patient's Ms. Rody Rodriguez, contact #[phone]. Admission and Anticipated Discharge Date Admission Date: March 04, 2023 Subjective Patient seen and examined at bedside as a follow-up of metabolic encephalopathy, hypercapnic respiratory failure/possible underlying OHS, recurrent complicated UTI, acute kidney injury over CKD III. Patient was lying in bed, on RA, NAD, is alert at bedside exam, reports feeling better, denies any pain. Pt to use BiPAP while sleeping, using overnight per pt. patient reports getting anxiety with BiPAP overnight last night despite prn vistaril; will dc vistaril as not helpful, will use ativan today and see if it helps anxiety a/w bpap use. Reports eating ok, reports usual GI stoma output. Physical Exam Physical Exam: GENERAL: Alert and oriented x3. NAD, on room air. Obese class III. HEENT: No pallor, no icterus. Pupils equal, round and reactive to light. Oral mucosa moist. NECK: No JVD, no neck masses. HEART: S1 and S2 heard. Regular rate and rhythm. No murmur, no gallop. RESPIRATORY SYSTEM: Normal AP diameter. No accessory muscle use. No wheezing, no crackles. ABDOMEN: Soft, bowel sounds present, nontender, no distention. Stoma bag w/ fecal output. Suprapubic cath noted. CENTRAL NERVOUS SYSTEM: No facial droop. Speech is clear. Obeys simple commands. Quadriplegia noted w/ BLE paralysis and BUE paresis. EXTREMITIES: trace ble edema, no erythema seen. Results & Data Results & Data Vital Signs (Past 12 Hours) Vital Signs Temp Pulse Pulse Resp BP Pulse Ox O2 Del Method 03/09/23 15:38 79 03/09/23 15:26 36.7 C 81 20 104/58 L 95 Room Air 03/09/23 14:34 81 17 93 03/09/23 11:44 36.9 C 84 20 131/73 93 Nasal Cannula 03/09/23 07:47 36.6 C 83 20 110/63 95 Nasal Cannula 03/09/23 07:37 79 O2 Flow Rate 03/09/23 15:38 03/09/23 15:26 03/09/23 14:34 3 03/09/23 11:44 3 03/09/23 07:47 4 03/09/23 07:37 (1) Altered mental status Altered mental status type: somnolence Qualified Code(s): R40.0 - Somnolence
[2023-03-09] MEDS: WARFARIN SOD 5 MG TAB PO SCH (18:01)
[2023-03-09] MEDS: ATORVASTATIN 40 MG TAB PO SCH (19:56)
[2023-03-09] MEDS: ACETAMINOPHEN 325 MG TAB PO PRN (20:07)
[2023-03-09] MEDS: LORazepam 0.5 MG TAB PO PRN (23:25)
[2023-03-10] MEDS: LEVOTHYROXINE SODIUM 25 MCG TABLET PO SCH (05:13)
[2023-03-10] MEDS: BACLOFEN 10 MG TAB PO SCH ×3 (05:13→17:16)
[2023-03-10] MEDS: NYSTATIN POWDER 15GM BTL EXT SCH ×2 (05:19→22:00)
[2023-03-10 06:58] LABS: INR 1.8 (0.9-1.1); Prothrombin Time 18.6 Seconds (9.0-12.0)
[2023-03-10] MEDS: FAMOTIDINE 20 MG TAB PO SCH ×2 (08:06→21:20)
[2023-03-10] MEDS: ADVANCED PROBIOTIC 1250 MG CAPSULE PO SCH ×2 (08:06→21:19)
[2023-03-10] MEDS: PANTOprazole 40 MG TAB PO SCH ×2 (08:07→21:19)
[2023-03-10] MEDS: METOPROLOL TARTRATE 25 MG TAB PO SCH (08:07)
[2023-03-10] MEDS: ESCITALOPRAM OXALATE 20 MG TAB PO SCH (08:08)
[2023-03-10] MEDS: allopurinoL 100 MG TAB PO SCH ×2 (08:09→21:20)
[2023-03-10] MEDS: DOCUSATE SODIUM 100 MG CAP PO SCH ×2 (08:09→21:19)
[2023-03-10] MEDS: INSULIN HUMAN NPH SC SCH ×2 (08:09→18:06)
[2023-03-10] MEDS: INSULIN ASPART PER UNIT CHARGE SC SCH ×4 (08:11→22:34)
[2023-03-10] MEDS: levETIRAcetam 750 MG in 0.9 % SODIUM CHLORIDE 100 ML IV SCH ×2 (08:20→22:39)
--- NOTE | 2023-03-10 09:37 | Nephrology Progress Note ---
Date of Service March 10, 2023 Assessment & Plan (1) ROBERT (acute kidney injury): Plan: as of today slightly worsening Stage 3 nonoliguric ROBERT from ischemic ATN in the setting of sepsis, acute respiratory failure. Baseline creatinine is one. Presenting creatinine 03/03 PM 2.6, with peak value 3.6 on 03/08 which has likely peaked -suspect cephalosporin associated AIN versus ischemic ATN after presenting w/ altered MS on OP lasix, spironolactone >>w/ changes in respiration today, needed 80 mg IV lasix x 1; would avoid standing dose but can redose PRN >ABG supports hypercapneic respiratory failure >> favor PAP therapy >CXR possibly w/ some pulmonary edema versus multifocal PNA >> consider CT if feasible -Monitor input output and daily BMP. Increased urine output is reassuring and creatinine is expected to start downtrending no indication for discussion of dialysis but above events concerning Admission and Anticipated Discharge Date Admission Date: March 04, 2023 Subjective pt seen midday on rounds > tells me he's not doing well, that he's sob and has abdominal pain "like my GERD:" points to periumbilical and R abdomen Review of Systems Review of Systems: All systems reviewed & are unremarkable except as noted in Subjective Physical Exam Constitutional: well developed, well nourished, + physical limitations and cooperative; no acute distress Eyes: EOM intact bilaterally ENMT: Ears: no external ear abnormality Nose: no external nose abnormality Mouth: + dry oral mucous membranes Neck: no nuchal rigidity Respiratory: normal respiratory effort; not tachypneic (not at the time I saw him) Auscultation: + diminished lung sounds Cardiovascular: RRR, no murmur, no edema Gastrointestinal (Abdomen): Inspection/Auscultation: normal bowel sounds; + abdomen abnormal to inspection (colostomy present) Percussion/Palpation: + abdomen tender (to moderate palpation periumbilical) and abdomen soft; no guarding Musculoskeletal: Extremities: + limited ROM of extremities and + abnormal strength Skin: no rashes, warm and dry Genitourinary: urbina w/ ample clear urine Results & Data Vital Signs (Past 12 Hours) Vital Signs Temp Pulse Pulse Resp BP Pulse Ox O2 Del Method 03/10/23 07:06 36.6 C 79 14 125/73 90 Nasal Cannula 03/10/23 07:34 75 03/10/23 00:00 BiPAP 03/10/23 03:33 36.5 C 73 20 108/63 91 Nasal Cannula 03/09/23 22:25 92 H 03/10/23 02:00 91 Nasal Cannula 03/09/23 23:53 92 H 16 97 03/09/23 23:40 36.8 C 118 H 20 121/66 93 Nasal Cannula O2 Flow Rate 03/10/23 07:06 4 03/10/23 07:34 03/10/23 00:00 03/10/23 03:33 3 03/09/23 22:25 03/10/23 02:00 3 03/09/23 23:53 3 03/09/23 23:40 3 Laboratory Results 03/09/23 05:18 03/09/23 05:18 Diagnostic Findings cxr today reviewed
[2023-03-10 12:37] LABS: Basophils # (auto) 0.06 K/uL (0-0.2); Basophils % (auto) 0.5 %; Eosinophils # (auto) 0.15 K/uL (0-0.50); Eosinophils % (auto) 1.2 %; Hematocrit (blood only) 30.3 % (42.0-52.0); Hemoglobin 9.4 g/dl (14.0-18.0); Immature Granulocytes # (auto) 0.08 K/uL (0.01-0.20); Immature Granulocytes % (auto) 0.7 %; Lymphocytes # (auto) 1.04 K/uL (1.2-3.4); Lymphocytes % (auto) 8.5 %; Mean Corpuscular Hemoglobin 28.7 pg (25.0-34.0); Mean Corpuscular Volume 92.7 fL (80.0-100.0); Mean Platelet Volume 9.6 fL (9.4-12.4); Monocytes # (auto) 0.84 K/uL (0.11-0.59); Monocytes % (auto) 6.8 %; Neutrophils % (auto) 82.3 %; Platelet Count 191 K/uL (130-400); RDW Coefficient of Variation 18.5 % (11.5-14.5); RDW Standard Deviation 63.3 fL (36.4-46.3); Red Blood Count 3.27 M/uL (4.70-6.10); White Blood Count 12.27 K/ul (4.8-10.8)
--- NOTE | 2023-03-10 12:48 | XRay Report ---
XR chest 1V portable CLINICAL HISTORY: Shortness of breath. COMPARISON STUDY: Chest radiograph and chest CT March 03, 2023. FINDINGS: Postoperative findings within the left chest wall are unchanged. There is no pneumothorax. There are small bilateral pleural effusions. Interstitial thickening and bilateral opacities have pro gressed. There is no pneumothorax. Cardiomegaly is unchanged. Mediastinal contours are stable. Exam i s mildly compromised by motion artifact. IMPRESSION: 1. Increase in interstitial thickening and bilateral opacities. The findings could reflect pulmonary edema or multifocal pneumonia. 2. Small bilateral pleural effusions. No pneumothorax. ACT 112: Negative or not required by law. Electronically signed by: Sami Jacobson M.D. 03/10/2023 12:46 PM
[2023-03-10 12:54] LABS: BUN Creatinine Ratio 28.4 (10-20); Calcium 8.9 mg/dl (8.6-10.3); Creatinine Clr Calc Pharmacy 30.1 ml/min; Est GFR (Non-African American) 16.4 ml/min; Magnesium 2.4 mg/dl (1.7-2.4); Potassium 4.5 mmol/L (3.5-5.1)
[2023-03-10] MEDS: tiZANidine HCL 4 MG TABLET PO SCH (12:55)
[2023-03-10] MEDS: MAGNESIUM OXIDE 400 MG TAB PO SCH (12:56)
[2023-03-10 12:59] LABS: Troponin I High Sensitivity 6.1 pg/ml (0-20)
[2023-03-10] MEDS ORDERED: FUROSEMIDE 40 MG/4 ML VIAL IV ONE (13:26)
--- NOTE | 2023-03-10 15:43 | Pulmonology Progress Note ---
Date of Service March 10, 2023 Assessment & Plan (1) Hypercapnic respiratory failure: (2) Altered mental status: Altered mental status type: somnolence Qualified Code(s): R40.0 - Somnolence (3) Obesity hypoventilation syndrome: (4) OTRY (obstructive sleep apnea): Plan IMPRESSION: 62-year-old incomplete quadriplegic male with recurrent pneumonia and concerns for obesity hypoventilation syndrome and obstructive sleep apnea who is requiring increasing oxygen levels and change in mental status likely stemming from poor use of BiPAP. Pulmonary medicine reconsulted at this time given change in status. 1. Hypercapnic respiratory failure - Likely multifactorial in the morbidly obese quadriplegic patient with generalized deconditioning and worsening weakness in the setting of recurrent pneumonia. On exam, patient is slightly altered. Concerns for CO2 narcosis. ABG added. Spoke with respiratory therapy. Patient to be placed on full mask BiPAP with a change to Drager BiPAP unit to better control patient's ventilatory function. Will obtain ABG to evaluate pH and CO2. Regardless, moving forward, patient should be utilizing BiPAP for any sleep. Patient's is present and is asking if we could eventually perform tracheostomy placement. I did discuss with her that certainly that could be an option at some point, however I do not feel it is appropriate currently as he could very easily turnaround with BiPAP settings alone. Additionally, I do feel it is important for the patient to participate actively in this conversation as during our conversation, he is stating that he does not want anything done. The patient is not able to make decisions currently given his likely CO2 narcosis. We will reassess his respiratory status after BiPAP use and follow-up on conversations as needed. I did review the patient's chest x-ray and recent CT. 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 He received additional dose of Lasix as well as labs for BMP. 2. Altered mental status - Patient is awake and alert, but poorly mentating at this time. He is able to answer questions and converse somewhat, but is somewhat confused. Likely secondary to hypercapnic respiratory failure. 3. Obesity hypoventilation syndrome - Likely compounded by the patient's genera lized weakness in the setting of quadriplegia. 4. Obstructive sleep apnea - Prior notes have suggested the patient has snoring as well as significant pauses in breathing. Patient does warrant outpatient sleep study at some point, but would start with BiPAP settings as recommended at this time. Thank you for allowing us to participate in the care of this patient. We will follow along. Admission and Anticipated Discharge Date Admission Date: March 04, 2023 Supervising Physician Co-Signing Physician Notes I saw and evaluated the patient with Mio Darby PA-C, and agree with findings and plan as documented in the note. 62-year-old male who was initially admitted to the hospital for hypercapnia was followed by pulmonary before and then signed off. Pulmonary consulted because of worsening mental status as well as shortness of breath. At the time of examination patient was somnolent but easily arousable. His saturation was 94% on 4 L, I went down to 3 L He did complain of shortness of breath which is worse than before. Denies any chest pain, no abdominal pain, no headache, no dizziness Constitutional: Mild respiratory distress HEENT: EOMI, PERRLA Respiratory system: Decreased air entry bilaterally, no wheeze, no rhonchi, positive crackles bilateral lower lobes CVS: S1-S2 positive, no murmurs or gallops, distant heart sounds Abdomen: Soft, nontender, nondistended, positive bowel sounds x4, obese, positive left-sided colostomy Extremities: +2 pulses bilaterally radialis/ dorsalis pedis, no cyanosis, +1 pitting edema bilateral lower extremity Neuro: Somnolent, oriented to self and place Psych: Normal mood and affect G/U: Positive Martinez Plan: Chest x-ray from today shows worsening alveolar opacities bilaterally likely representing pulmonary edema BMP is 135 and a morbidly obese patient AB.22/70/69 on 4 L nasal cannula Patient will be started on BiPAP 19/06, aim for tidal volume around 450-500. If need to be increased IPAP to 16. Would recommend repeating ABG in 40-50 minutes of starting the BiPAP 80 mg of Lasix was given by Dr. Juarez. Would recommend aggressive diuresis to keep the patient negative balance If there is any worsening intubation will be considered Please note the above document was generated using voice recognition software. It may contain grammatical, syntax or spelling errors.Any formal questions or concerns about the content, text or information contained within the body of this dictation should be directly addressed to the provider for clarification. Subjective Patient seen and evaluated at bedside. Patient with worsening mental status and respiratory status requiring 6 L nasal cannula at this time. He reports difficulty with breathing and his is present and voices her frustration. She is visibly upset. Patient unable to provide accurate historical information secondary to encephalopathy. No significant respiratory distress at this time. Review of Systems Review of Systems: Limited Physical Exam Physical Exam: VITAL SIGNS - Vital signs and nursing notes were reviewed. GENERAL - 62-year-old male appearing his stated age who is slightly confused. No respiratory distress. NOSE - Midline and without cyanosis. MOUTH/OROPHARYNX - Without perioral cyanosis. LUNGS - Auscultation reveals diminished breath sounds bilaterally with resonance from upper airway appreciated in the lower lung barrera. CARDIAC - RRR with S1/S2. No murmur, rubs, or gallops appreciated. ABDOMEN - Obese abdomen. BS hypoactive. all four quadrants. No tenderness, palpable masses, or ascites noted. EXTREMITIES - +3/5 radial palpated throughout. PSYCH - Drowsy. Results & Data Results & Data Vital Signs (Past 12 Hours) Vital Signs Temp Pulse Pulse Resp BP BP Pulse Ox 03/10/23 14:45 36.4 C L 91 H 15 120/79 92 03/10/23 11:11 36.6 C 90 15 132/77 91 03/10/23 07:06 36.6 C 79 14 125/73 90 03/10/23 07:34 75 O2 Del Method O2 Flow Rate 03/10/23 14:45 Nasal Cannula 6 03/10/23 11:11 Nasal Cannula 4 03/10/23 07:06 Nasal Cannula 4 03/10/23 07:34 Laboratory Results 03/10/23 12:13 03/10/23 12:13 PG Care Time/CCT Total # of Minutes Spent Total Time Spent with Patient: Total time spent is greater than 50% in coordination of care (as documented) at patient's floor/unit and/or counseling patient: Coding Level of Care Code 21103 SUB INP/OBS CARE 3/50MIN Diagnoses Hypercapnic respiratory failure J96.92 Altered mental status R40.0 Altered mental status type: somnolence Obesity hypoventilation syndrome E66.2 TORY (obstructive sleep apnea) G47.33
[2023-03-10] MEDS: LORazepam 0.5 MG TAB PO PRN (15:44)
[2023-03-10 15:54] LABS: Base Excess ABG -0.9 mEq/L (-9-1.8); HCO3 ABG 29 mmol/L (19-24); Oxygen Saturation ABG 93.3 % (90-95); PCO2 ABG 70 mmHg (35-46); PO2 ABG 69 mmHg (80-95); pH ABG 7.22 (7.35-7.45)
[2023-03-10 15:56] LABS: Allen Test Pos (Pos)
--- NOTE | 2023-03-10 16:50 | Hospitalist Progress Note ---
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 In the ED, he was found to be in hypercapnic resp failure, also in ROBERT over CKD III. 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 Pt noted to be not eating and drinking well, there was concern of hydration. Likely secondary to respiratory failure due to congestion/infection and is complicated by ROBERT Treat underlying cause as below. Hold neuropsych meds as able. pt w/ chronic pain/spasms - resume home meds gradually, may need to cut down on some pain/spasm meds as tolerated, pt agreeable. Acute kidney injury over CKD stage III: Patient was found to be in ROBERT over CKD stage III, hypercapnic respiratory failure at presentation. Patient was using cefepime for his sacral osteomyelitis treatment for few weeks by the time of presentation. Patient's admitting BUN and creatinine were 57 and 2.56, up trended following day. Patient noted to have poor appetite and poor fluid intake prior to arrival. Likely prerenal. Baseline creatinine around 1. Renal ultrasound without obstruction. 2019 echo with EF of 65 to 70%. Hold nephrotoxics. Nephrology on board, appreciate recommendation. lasix (& hence kcl) & aldactone on hold. Monitor BMP. Cr appears pleauted. expect improvement. Acute hypercapnic respiratory failure: Patient noted to be lethargic at presentation, CO2 of 61 in ABG at presentation. Likely secondary to underlying OHS. Admitting CT Head with no acute findings. Admitting CT chest with partial collapse of left lower lobe with underlying infection not excluded. Pulmonology consulted, recommend BPAP 15/10 w/ O2 on DC, sleep study as OP. Patient was put on BiPAP, was alert and back to baseline at bedside exam on the first day of exam. Condition got worse since this morning with more shortness of breath and somnolence Chest x-ray did show increasing congestion and received 80 mg of IV Lasix in the afternoon after discussion with the monitoring manager Appreciate emblem maker evaluation and recommendation Leukocytosis: WBC of 17.14K at presentation. Patient does appear to have chronic leukocytosis likely secondary to chronic osteomyelitis. Part of it may be contributed due to hemoconcentration secondary to poor appetite prior to arrival. Procalcitonin was negative at presentation. We will follow-up admitting blood and urine culture. Pt afebrile, wbc mostly fluctuates around 13-14 K. ID evaled, see below. Stage IV decubitus ulcer, history of Sacral osteomyelitis Concern for recurrent UTI, CAUTI: Patient with chronic suprapubic catheter [see above]. Urine looks clean at bedside exam on first day, patient was noted to have Pseudomonas in his urine on 02/11/2023. For which he is being covered with cefepime itself. On chronic methenamine s uppression Rx - will hold while on antibiotic actively. Cefepime changed to ceftazidime 03/04/23, ID Evaled - ok w/ current dose of ceftazidime; CRP now and QotherWk; CMP/CBC w/ diff weekly while on atb. End date of atb 03/24/23. Patient is a status post debridement of sacral ulcer by Dr. Srivastava on 02/11/2023 [previous admission]. Patient was being treated with cefepime for sacral osteomyelitis. 02/11 wound culture with Pseudomonas aeruginosa. Patient was evaluated by ID and recommended 6 weeks of IV cefepime at that time. PICC line was placed on 02/18. Cefepime has been changed to intravenous ceftazidime on 03/05/2023-likely the cause for congestion Discussed with the ID specialist and the pharmacist-ceftazidime will have less sodium and fluid administration compared with Zosyn We will continue with ceftazidime for now Wound care on board Pt will need close f/u w/ ID on DC. Seizure disorder:For breakthrough seizure in his 02/09 to 02/19 admission while on Keppra, his Keppra was changed to Depakote after neurology evaluation. Later patient self-discontinued Depakote due to intolerance. Evaluated by neur ology again during his 02/23 - 02/26 admission, he was put back on Keppra with increased dose to 750 Mg twice daily from 500 mg BID in the past. Continue the home dose of Keppra. Patient to continue follow-up with his neurology upon discharge. Other chronic medical conditions:Resume/continue home meds as able Insulin-dependent T2DM: A1c of 6.9 this admission, glycemic pharmacy on board, sliding scale insulin. Neurogenic bladder/suprapubic cath in place/history of recurrent UTIs: hold methenamine hippurate until actively on antibiotic Rx. Colostomy status: Colostomy in place to prevent wound swelling, continue routine ostomy care Chronic anticoagulation secondary to coagulation disorder: Monitor INR daily or as needed, continue with home warfarin at reduced dose of 5 mg daily due to supratherapeutic INR at presentation. INR today subtherapeutic, extra warfarin dose of 2.5mg on top of daily 5 mg. pt/inr in am. 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 Repeat TFT in 6 weeks. DVT prophylaxis: on Warfarin Full code Dispo: CM to assist w/ dc plan, pending nephrology clearance. Patient's Ms. Rody Rodriguez, contact #[phone]. Discussed with the in detail Admission and Anticipated Discharge Date Admission Date: March 04, 2023 Subjective 03/10/2023 The patient was seen and examined in medical telemetry unit He has been feeling worse since this morning Complains chest tightness/epigastric discomfort with increasing shortness of breath Denies any pain, fever or chills and denies any nausea or vomiting Has been feeling that he is not feeling well Review of Systems Review of Systems: All systems reviewed and are unremarkable except as noted below Neurologic: Has quadriplegia without any evidence of worsening at this time Physical Exam Physical Exam: Lying in bed with somnolence and confusion Constitutional: well developed, well nourished, + ill appearing and + morbidly obese Eyes: PERRL, conjunctivae normal, anicteric sclerae ENMT: external ear and nose normal, oropharynx normal Neck: trachea midline, no thyromegaly Respiratory: + respiratory distress and + tachypneic; + abnormal respiratory effort Auscultation: + diminished lung sounds and + crackles (Bibasally more on the left); no wheezes Gastrointestinal (Abdomen): Inspection/Auscultation: normal bowel sounds; abdomen not distended Percussion/Palpation: abdomen soft; abdomen nontender Musculoskeletal: No acute arthritis involving any joint Skin: Has stays 3-4 sacral decubiti ulcer with osteomyelitis Neurologic: Has quadriplegia, more involving the lower extremities than the upper Lymphatic: no cervical or axillary lymphadenopathy Results & Data Results & Data Vital Signs (Past 12 Hours) Vital Signs Temp Pulse Pulse Resp BP BP Pulse Ox 03/10/23 15:47 88 21 93 03/10/23 15:46 94 H 03/10/23 14:45 36.4 C L 91 H 15 120/79 92 03/10/23 11:11 36.6 C 90 15 132/77 91 03/10/23 07:06 36.6 C 79 14 125/73 90 03/10/23 07:34 75 O2 Del Method O2 Flow Rate FiO2 03/10/23 15:47 40 03/10/23 15:46 03/10/23 14:45 Nasal Cannula 6 03/10/23 11:11 Nasal Cannula 4 03/10/23 07:06 Nasal Cannula 4 03/10/23 07:34 Laboratory Results Short CBC 03/10/23 Range/Units 12:13 WBC 12.27 H (4.8-10.8) K/ul Hgb 9.4 L (14.0-18.0) g/dl Hct 30.3 L (42.0-52.0) % Plt Count 191 (130-400) K/uL BMP 03/10/23 12:13 Sodium 138 Potassium 4.5 Chloride 103 Carbon Dioxide 28 BUN 105 H Creatinine 3.70 H Glucose 148 H Calcium 8.9 Medications Administered Current Inpatient Medications Acetaminophen (Acetaminophen 325 Mg Tab) 650 mg PO Q4H PRN PRN Reason: Pain or Fever Stop: 04/03/23 03:36 Last Admin: 03/09/23 20:07 Dose: 650 mg Allopurinol (Allopurinol 100 Mg Tab) 100 mg PO BID JO Stop: 04/03/23 08:59 Last Admin: 03/10/23 08:09 Dose: 100 mg Atorvastatin Calcium (Atorvastatin 40 Mg Tab) 40 mg PO HS JO Stop: 04/03/23 20:59 Last Admin: 03/09/23 19:56 Dose: 40 mg Baclofen (Baclofen 10 Mg Tab) 10 mg PO DAILY@0000 [facility] Stop: 04/04/23 00:00 Last Admin: 03/09/23 23:32 Dose: 10 mg Baclofen (Baclofen 10 Mg Tab) 5 mg PO DAILY@0600,1200,1800 JO Stop: 04/03/23 17:59 Last Admin: 03/10/23 12:56 Dose: 5 mg Dextrose (Dextrose 50% 50 Ml Syringe) 25 - 50 ml IV UD PRN; Protocol PRN Reason: Hypoglycemia Protocol Stop: 04/03/23 03:37 Docusate Sodium (Docusate Sodium 100 Mg Cap) 100 mg PO AMHS [facility] Stop: 04/03/23 08:59 Last Admin: 03/10/23 08:09 Dose: 100 mg Escitalopram Oxalate (Escitalopram Oxalate 20 Mg Tab) 20 mg PO QAM [facility] Stop: 04/03/23 08:59 Last Admin: 03/10/23 08:08 Dose: 20 mg Famotidine (Famotidine 20 Mg Tab) 20 mg PO BID [facility] Stop: 04/03/23 08:59 Last Admin: 03/10/23 08:06 Dose: 20 mg Glucagon (Glucagon For Inj 1 Mg Vial) 1 mg SQ UD PRN; Protocol PRN Reason: Hypoglycemia Protocol Stop: 04/03/23 03:37 Glucose (Glucose 10 Tab/Tube) 4 - 8 tab PO UD PRN; Protocol PRN Reason: Hypoglycemia Treatment Stop: 04/03/23 03:37 Glucose (Glucose 40% Gel 15 Gm Tube) 15 - 30 gm PO UD PRN; Protocol PRN Reason: Hypoglycemia Protocol Stop: 04/03/23 03:37 Levetiracetam 750 mg/ Sodium (Chloride) 107.5 mls @ 420 mls/hr IV BID [facility] Stop: 04/03/23 20:59 Last Infusion: 03/10/23 08:45 Dose: Infused Ceftazidime 2,000 mg/ Dextrose 60 mls @ 120 mls/hr IV Q12H [facility] Stop: 04/15/23 16:29 Last Infusion: 03/10/23 07:26 Dose: Infused Insulin Aspart (Insulin Aspart Per Unit Charge) 0 units SC ACHS [facility] Stop: 04/03/23 22:01 Last Admin: 03/10/23 12:55 Dose: 1 units Insulin Human NPH (Insulin Human Nph) 40 units SC BIDM [facility] Stop: 04/06/23 16:59 Last Admin: 03/10/23 08:09 Dose: 40 units Lactobacillus Acidophilus (Advanced Probiotic 1250 Mg Capsule) 2 cap PO BID [facility] Stop: 04/03/23 20:59 Last Admin: 03/10/23 08:06 Dose: 2 cap Levothyroxine Sodium (Levothyroxine Sodium 25 Mcg Tablet) 25 mcg PO DAILYBB [facility] Stop: 04/03/23 06:29 Last Admin: 03/10/23 05:13 Dose: 25 mcg Lorazepam (Lorazepam 0.5 Mg Tab) 0.5 mg PO HS PRN PRN Reason: Anxiety with BPAP use Stop: 04/08/23 15:54 Last Admin: 03/10/23 15:44 Dose: 0.5 mg Magnesium Oxide (Magnesium Oxide 400 Mg Tab) 400 mg PO 0000,1200 [facility] Stop: 04/04/23 00:00 Last Admin: 03/10/23 12:56 Dose: 400 mg Metoprolol Tartrate (Metoprolol Tartrate 25 Mg Tab) 12.5 mg PO QAM [facility] Stop: 04/05/23 08:59 Last Admin: 03/10/23 08:07 Dose: 12.5 mg Miscellaneous (Carbohydrates For Hypoglycemia ) 15 - 30 gm PO UD PRN PRN Reason: Hypoglycemia Protocol Stop: 04/03/23 03:37 Miscellaneous (Tacrolimus~Order Awaiting Action) 1 each N/A QS [facility] Stop: 04/03/23 07:59 Last Admin: 03/10/23 08:11 Dose: Not Given Nystatin (Nystatin Powder 15gm Btl) 1 appln EXT BID [facility] Stop: 04/03/23 08:59 Last Admin: 03/10/23 05:19 Dose: 1 appln Pantoprazole Sodium (Pantoprazole 40 Mg Tab) 40 mg PO BID [facility] Stop: 04/03/23 08:59 Last Admin: 03/10/23 08:07 Dose: 40 mg Tizanidine HCl (Tizanidine Hcl 4 Mg Tablet) 4 mg PO BID@0000,1200 [facility] Stop: 04/05/23 12:14 Last Admin: 03/10/23 12:55 Dose: 4 mg Warfarin Sodium (Warfarin Sod 5 Mg Tab) 5 mg PO DAILY@1600 JO Stop: 04/06/23 15:59 Last Admin: 03/09/23 18:01 Dose: 5 mg (1) Altered mental status Altered mental status type: somnolence Qualified Code(s): R40.0 - Somnolence
[2023-03-10] MEDS: WARFARIN SOD 5 MG TAB PO SCH (17:16)
[2023-03-10 18:25] LABS: Base Excess ABG -1.5 mEq/L (-9-1.8); HCO3 ABG 28 mmol/L (19-24); Oxygen Saturation ABG 99.3 % (90-95); PCO2 ABG 66 mmHg (35-46); PO2 ABG 97 mmHg (80-95); pH ABG 7.23 (7.35-7.45)
[2023-03-10 18:26] LABS: Allen Test Pos (Pos)
[2023-03-10] MEDS: ATORVASTATIN 40 MG TAB PO SCH (21:19)
[2023-03-10] MEDS: PANTOprazole 40 MG in SYRINGE 0 ML IV SCH (22:40)
[2023-03-10 22:57] LABS: Allen Test Pos (Pos); Base Excess ABG -0.6 mEq/L (-9-1.8); HCO3 ABG 28 mmol/L (19-24); PCO2 ABG 62 mmHg (35-46); PO2 ABG 86 mmHg (80-95); pH ABG 7.26 (7.35-7.45)
[2023-03-10 23:29] LABS: INR 1.9 (0.9-1.1); Partial Thromboplastin Ratio 1.7; Prothrombin Time 19.9 Seconds (9.0-12.0)
[2023-03-10 23:52] LABS: Partial Thromboplastin Time 48.5 Seconds (21.0-31.0)
[2023-03-11] MEDS ORDERED: Heparin IV Adult Wt-Based Standard *NO* Bolus Protocol IV SCH (00:45)
[2023-03-11] MEDS: MAGNESIUM OXIDE 400 MG TAB PO SCH ×3 (01:44→22:53)
[2023-03-11] MEDS: BACLOFEN 10 MG TAB PO SCH ×2 (01:44→06:14)
[2023-03-11] MEDS: tiZANidine HCL 4 MG TABLET PO SCH (01:45)
[2023-03-11] MEDS: HEPARIN SODIUM/DEXTROSE 25,000 UNITS/500 ML BAG IV SCH ×3 (02:20→18:45)
[2023-03-11] MEDS: LEVOTHYROXINE SODIUM 25 MCG TABLET PO SCH (06:14)
[2023-03-11 07:22] LABS: Allen Test POS (Pos); Base Excess ABG 0.8 mEq/L (-9-1.8); HCO3 ABG 30 mmol/L (19-24); Oxygen Saturation ABG 99.3 % (90-95); PCO2 ABG 68 mmHg (35-46); PO2 ABG 108 mmHg (80-95); pH ABG 7.25 (7.35-7.45)
[2023-03-11 07:57] LABS: Albumin Globulin Ratio 0.7 (0.9-2); Albumin Level 2.9 gm/dl (3.4-5.0); BUN Creatinine Ratio 27.1 (10-20); Bilirubin,Total 0.2 mg/dl (0.2-1.0); Calcium 8.7 mg/dl (8.6-10.3); Creatinine Clr Calc Pharmacy 28.2 ml/min; Est GFR (African American) 17.6 ml/min; Est GFR (Non-African American) 15.2 ml/min; Globulin 4.3 gm/dl (2.5-4.0); Magnesium 2.4 mg/dl (1.7-2.4); Phosphorus 5.7 mg/dl (2.5-4.9); Total Protein 7.2 gm/dl (6.0-8.3)
--- NOTE | 2023-03-11 08:04 | Pulmonology Progress Note ---
Date of Service March 11, 2023 Assessment & Plan (1) Hypercapnic respiratory failure: (2) Altered mental status: Altered mental status type: somnolence Qualified Code(s): R40.0 - Somnolence (3) Obesity hypoventilation syndrome: (4) TORY (obstructive sleep apnea): Plan IMPRESSION: 62-year-old incomplete quadriplegic male with recurrent pneumonia and concerns for obesity hypoventilation syndrome and obstructive sleep apnea who is requiring increasing oxygen levels and change in mental status likely stemming from poor use of BiPAP. Pulmonary medicine reconsulted at this time given change in status. 1. Hypercapnic respiratory failure - Likely multifactorial in the morbidly obese quadriplegic patient with generalized deconditioning and worsening weakness in the setting of recurrent pneumonia. Repeat ABGs despite utilization of BiPAP have demonstrated persistent CO2 retention and acidemia. Patient is minimally responsive to painful stimuli on exam this morning. I did change his BiPAP settings to 24/12 which did seem to improve tidal volumes into the 500s. I had a lengthy conversation with the patient's who is at bedside. She is concerned that when he was communicating with her that it was near the end of his life, that he was accurate. We did discuss that if his respiratory status does not improve soon, that it would warrant intubation for improvement in ventilation and persistent respiratory acidosis. The becomes tearful as she reports that she had been considering this throughout the night. She is uncertain if he would wish to undergo intubation. She has had family members from prolonged intubation with tracheostomy placement. She is concerned that when he communicated his impending doom yesterday, that he was accurate. At this point, she is leaning towards DO NOT INTUBATE status. We did discuss what that would look like. Additionally, I did communicate that if she chose this option, that we would likely more focused on transitioning his care to a more comfort based approach as persistent utilization of BiPAP without the intention for intubation is likely prolonging his dying process and could result in skin breakdown and other tissue injury with BiPAP mask aggressively in place. He also runs the risk for barotrauma given the advanced setting of BiPAP. She acknowledges this and understands that we will reassess this in an hour or so after he has had some time to be evaluated on current settings. Frankly, decision for DO NOT INTUBATE does seem to be more appropriate given this patient's clinical picture as he has multiple comorbidities contributing to poor respiratory effort including likely obstructive sleep apnea, obesity hypoventilation syndrome, and generalized muscle weakness in the setting of quadriplegia. Patient would be high risk for need for tracheostomy moving forward. She reiterates that the would not be interested in this moving forward. That being said, we will reassess the situation in a few hours and evaluate any improvement while on ongoing aggressive BiPAP settings. I did reevaluate the patient at 9 AM. At that point, the patient is now awake, alert, and oriented. He is conversant and able to communicate his healthcare wishes. We did put an order for repeat ABG to assess utility of BiPAP settings moving forward. Additionally, I did have conversation with dede trejo regarding CODE STATUS moving forward. He reports that he would not wish to undergo intubation or mechanical ventilation in the setting of worsening respiratory decline. Additionally, he reports that he would not wish to undergo tracheostomy tube placement if that were to be an option as well. Patient does report that he would be comfortable with chest compressions, defibrillation, and resuscitative medications. I did discuss with him that undergoing compressions and resuscitative efforts without definitive airway may likely not be helpful. Despite that, he reports that these are his wishes. Orders were changed in the system to reflect the patient's wishes. Would recommend limiting/minimizing any sedating medications moving forward. Additionally, would aim for oxygen saturation of 94% and avoid over oxygenation. Discussed with patient and the use of BiPAP settings while using naps or if he becomes sleepy/drowsy. Certainly, he will need his BiPAP at night. 2. Altered mental status - More somnolent today. Likely secondary to hypercapnic respiratory failure. 3. Obesity hypoventilation syndrome - Likely compounded by the patient's generalized weakness in the setting of quadriplegia. 4. Obstructive sleep apnea - Prior notes have suggested the patient has snoring as well as significant pauses in breathing. Patient does warrant outpatient sleep study at some point, but would start with BiPAP settings as recommended at this time. Thank you for allowing us to participate in the care of this patient. We will follow along. Admission and Anticipated Discharge Date Admission Date: March 04, 2023 Supervising Physician Co-Signing Physician Notes I saw and evaluated the patient with Mio Darby PA-C, and agree with findings and plan as documented in the note. Patient seen and examined at bedside. No acute distress Overnight patient did use his BiPAP. Patient's was also in the room at the time of examination He was on BiPAP at the time of examination with setting 24/12, 30% FiO2, getting tidal volumes around 500-600 mL, his saturation was 99%. He was more alert compared to yesterday. Answering questions. Denied any headache, no chest pain, no shortness of breath, mild abdominal pain. Constitutional: No respiratory distress HEENT: EOMI, PERRLA Respiratory system: Decreased air entry bilaterally, no wheeze, no rhonchi, positive crackles bilateral lower lobes CVS: S1-S2 positive, no murmurs or gallops, distant heart sounds Abdomen: Soft, nontender, nondistended, positive bowel sounds x4, obese, positive left-sided colostomy Extremities: +2 pulses bilaterally radialis/ dorsalis pedis, no cyanosis, +1 pitting edema bilateral lower extremity Neuro: somnolent but easily arousable, oriented to self and place Psych: Normal mood and affect G/U: Positive Martinez --DNI Plan: AB.27/65/44 on room air Patient's mentation is also due with multiple medications that he is on. We need that to be sorted out. Right now we will try to hold all respiratory depressing medication. Can resume them gradually at a lower dose once the patient is more alert Patient will benefit from a trilogy machine. Continue with diuresis Patient's significant morbid obesity has resulted in a restrictive thoracic cage abnormality. Because of this patient does not fully expand her lungs for proper ventilation causing recurrent hypercapnic respiratory failure with a PaCo2 of 65. Multiple underlying comorbidities are noted with a weight of 147.6 kg. Patient would benefit greatly from noninvasive ventilation which would improve lung function and potentially reduce worsening of symptoms. A BiPAP would be ineffective as patient requires a volume targeted mode. Interruption of ventilator support would lead to a decline of health status. NIMV settings should be AVAPS-AE; Breath rate: auto; Inspiratory time:auto; Sigh : off; Tidal Volume: 400-500, PS min: 4-10 PS max: 12-20; EPAP min: 8-12; EPAP max: 12-16; AVAPS rate: 16 during sleep and as needed Please note the above document was generated using voice recognition software. It may contain grammatical, syntax or spelling errors.Any formal questions or concerns about the content, text or information contained within the body of this dictation should be directly addressed to the provider for clarification. Subjective Patient seen and evaluated at bedside this morning. He is somnolent and awakens with painful stimuli. Otherwise, he nods yes when I ask him if he is breathing okay. He is unable to contribute to HPI at this time. Review of Systems Review of Systems: Limited secondary to patient's mental status. Physical Exam Physical Exam: VITAL SIGNS - Vital signs and nursing notes were reviewed. GENERAL - 62-year-old male appearing his stated age who is somnolent on BiPAP. Arouses to painful stimuli. NOSE - Midline and without cyanosis. MOUTH/OROPHARYNX - Without perioral cyanosis. LUNGS - Auscultation reveals diminished breath sounds bilaterally. CARDIAC - RRR with S1/S2. No murmur, rubs, or gallops appreciated. ABDOMEN - Obese abdomen. BS hypoactive. all four quadrants. No tenderness, palpable masses, or ascites noted. EXTREMITIES - +3/5 radial palpated throughout. PSYCH - Somnolent. Results & Data Results & Data Vital Signs (Past 12 Hours) Vital Signs Temp Pulse Pulse Resp BP Pulse Ox O2 Del Method 03/11/23 07:38 72 21 98 03/11/23 07:00 36.5 C 74 15 101/59 L 99 BiPAP 03/11/23 03:42 36.5 C 74 20 121/75 97 BiPAP 03/10/23 23:00 72 03/11/23 03:05 66 20 95 03/10/23 23:15 79 24 98 03/10/23 23:10 36.5 C 78 18 126/67 99 BiPAP 03/10/23 20:20 BiPAP O2 Flow Rate FiO2 03/11/23 07:38 40 03/11/23 07:00 03/11/23 03:42 4 03/10/23 23:00 03/11/23 03:05 40 03/10/23 23:15 40 03/10/23 23:10 4 03/10/23 20:20 Laboratory Results 03/10/23 12:13 03/11/23 06:42 PG Care Time/CCT Total # of Minutes Spent Total Time Spent with Patient: Total time spent is greater than 50% in coordination of care (as documented) at patient's floor/unit and/or counseling patient: Coding Level of Care Code 39555 SUB INP/OBS CARE 3/50MIN Diagnoses Hypercapnic respiratory failure J96.92 Altered mental status R40.0 Altered mental status type: somnolence Obesity hypoventilation syndrome E66.2 TORY (obstructive sleep apnea) G47.33
[2023-03-11 08:05] LABS: Prothrombin Time 21.4 Seconds (9.0-12.0)
[2023-03-11] MEDS: INSULIN HUMAN NPH SC SCH ×2 (08:58→17:42)
[2023-03-11] MEDS: INSULIN ASPART PER UNIT CHARGE SC SCH ×4 (08:58→23:01)
[2023-03-11] MEDS: PANTOprazole 40 MG in SYRINGE 0 ML IV SCH ×2 (09:28→22:53)
[2023-03-11] MEDS: levETIRAcetam 750 MG in 0.9 % SODIUM CHLORIDE 100 ML IV SCH ×2 (09:28→22:54)
[2023-03-11] MEDS: NYSTATIN POWDER 15GM BTL EXT SCH ×2 (09:28→22:54)
[2023-03-11] MEDS: allopurinoL 100 MG TAB PO SCH ×2 (09:29→22:53)
[2023-03-11] MEDS: ADVANCED PROBIOTIC 1250 MG CAPSULE PO SCH ×2 (09:29→22:53)
[2023-03-11] MEDS: FAMOTIDINE 20 MG TAB PO SCH ×2 (09:29→22:53)
[2023-03-11] MEDS: DOCUSATE SODIUM 100 MG CAP PO SCH ×2 (09:29→22:53)
[2023-03-11] MEDS: METOPROLOL TARTRATE 25 MG TAB PO SCH (09:30)
[2023-03-11 09:42] LABS: iSTAT Allen Test Pass; iSTAT Art Bld Gas pCO2 Correct 64 mmHg (35-46); iSTAT Art Bld Gas pH Corrected 7.275 (7.35-7.45); iSTAT Arterial Blood Gas HCO3 30 meg/L (19-24); iSTAT Arterial Blood Gas pCO2 65 mmHg (35-46); iSTAT Arterial Blood Gas pH 7.27 (7.35-7.45); iSTAT Arterial Blood Gas pO2 46 mmHg (80-95); iSTAT Arterial Blood Gas pO2 C 44; iSTAT Carbon Dioxide 32 mmol/L (24-31); iSTAT Hematocrit 30 % (42-52); iSTAT Hemoglobin 10.2 g/dl (14.0-18.0); iSTAT Site L Radial; iSTAT Sodium 140 mmol/L (135-144)
--- NOTE | 2023-03-11 09:57 | Nephrology Progress Note ---
Date of Service March 11, 2023 Assessment & Plan (1) ROBERT (acute kidney injury): Plan: again today worsening Stage 3 nonoliguric ROBERT from ischemic ATN in the setting of sepsis, acute respiratory failure. Baseline creatinine is one. Presenting creatinine 03/03 PM 2.6, with peak value 3.6 on 03/08 which had peaked until he needed lasix for worsening dypsnea/respiratory failure -suspect cephalosporin associated AIN versus ischemic ATN after presenting w/ altered MS on OP lasix, spironolactone >>w/ changes in respiration today, needed 80 mg IV lasix x 1; would avoid standing dose but can redose PRN if needed >continue pulmonary care/ f/u their recs > he is unfortunately showing only moderate improvement with bipap given his multifocal respiratory failure -Monitor input output and daily BMP. Increased urine output is reassuring and creatinine is expected to start downtrending no indication for discussion of dialysis but above events concerning Admission and Anticipated Discharge Date Admission Date: March 04, 2023 Subjective started on heparin gtt ON. somnolent/hard to arouse this am >> pulm evaluating and reevaluating >> pt is do not intubate status now after d/w pt and . ssen on early afternoon rounds > he was alert, interactive x 3. friend of family at [facility]. notes more mm spasms b/c less /fewer antipsasm meds Review of Systems Review of Systems: All systems reviewed & are unremarkable except as noted in Subjective Physical Exam Constitutional: well developed, well nourished, + physical limitations and cooperative; no acute distress Eyes: EOM intact bilaterally ENMT: Ears: no external ear abnormality Nose: no external nose abnormality Mouth: + dry oral mucous membranes Neck: no nuchal rigidity Respiratory: normal respiratory effort; not tachypneic Auscultation: + diminished lung sounds Cardiovascular: RRR, no murmur, no edema Gastrointestinal (Abdomen): Inspection/Auscultation: normal bowel sounds; + abdomen abnormal to inspection (colostomy present) Percussion/Palpation: + abdomen tender (to moderate palpation periumbilical) and abdomen soft; no guarding Musculoskeletal: Extremities: + limited ROM of extremities, strength 5/5 throughout and + abnormal strength Skin: no rashes, warm and dry Results & Data Vital Signs (Past 12 Hours) Vital Signs Temp Pulse Pulse Resp BP Pulse Ox O2 Del Method 03/11/23 08:20 80 20 97 03/11/23 07:38 72 21 98 03/11/23 07:00 36.5 C 74 15 101/59 L 99 BiPAP 03/11/23 03:42 36.5 C 74 20 121/75 97 BiPAP 03/10/23 23:00 72 03/11/23 03:05 66 20 95 03/10/23 23:15 79 24 98 03/10/23 23:10 36.5 C 78 18 126/67 99 BiPAP O2 Flow Rate FiO2 03/11/23 08:20 30 03/11/23 07:38 40 03/11/23 07:00 03/11/23 03:42 4 03/10/23 23:00 03/11/23 03:05 40 03/10/23 23:15 40 03/10/23 23:10 4 Laboratory Results 03/10/23 12:13 03/11/23 06:42
[2023-03-11 11:13] LABS: Partial Thromboplastin Ratio 3.6
[2023-03-11 11:21] LABS: Partial Thromboplastin Time 100.8 Seconds (21.0-31.0)
--- NOTE | 2023-03-11 15:38 | Hospitalist Progress Note ---
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 In the ED, he was found to be in hypercapnic resp failure, also in ROBERT over CKD III. He is being managed for the following: Acute hypercapnic respiratory failure: Patient noted to be lethargic at presentation, CO2 of 61 in ABG at presentation. Likely secondary to underlying OHS. Admitting CT Head with no acute findings. Admitting CT chest with partial collapse of left lower lobe with underlying infection not excluded. Pulmonology consulted, recommend BPAP 15/10 w/ O2 on DC, sleep study as OP. Patient was put on BiPAP, was alert and back to baseline at bedside exam on the first day of exam. Condition got worse since this morning with more shortness of breath and somnolence Chest x-ray did show increasing congestion and received 80 mg of IV Lasix in the afternoon after discussion with the powertrain design engineer Appreciate obstetric anaesthetist evaluation and recommendation Has been using BiPAP as tolerated and the condition is getting a little better CODE STATUS has been changed to conditional Remains hypercarbic with pH of 7.27 and PCO2 of 65 We will continue current management Metabolic and toxic encephalopathy, multifactorial [see below] Patient was noted to be in confusion with hallucination for few days [employer]. Pt noted to be not eating and drinking well, there was concern of hydration. Likely secondary to respiratory failure due to congestion/infection and is complicated by ROBERT Now complicated by hypercarbia and acidosis Treat underlying cause as below. Hold neuropsych meds as able. pt w/ chronic pain/spasms - resume home meds gradually, may need to cut down on some pain/spasm meds as tolerated, pt agreeable. Acute kidney injury over CKD stage III: Patient was found to be in ROBERT over CKD stage III, hypercapnic respiratory failure at presentation. Patient was using cefepime for his sacral osteomyelitis treatment for few weeks by the time of presentation. Patient's admitting BUN and creatinine were 57 and 2.56, up trended following day. Patient noted to have poor appetite and poor fluid intake prior to arrival. Likely prerenal. Baseline creatinine around 1. Renal ultrasound without obstruction. 2019 echo with EF of 65 to 70%. Hold nephrotoxics. Nephrology on board, appreciate recommendation. lasix (& hence kcl) & aldactone on hold. Monitor BMP. Cr appears pleauted. expect improvement. Has been getting controlled doses of Lasix Creatinine remains high and minimally up today at 3.95 Leukocytosis: WBC of 17.14K at presentation. Patient does appear to have chronic leukocytosis likely secondary to chronic osteomyelitis. Part of it may be contributed due to hemoconcentration secondary to poor appetite prior to arrival. Procalcitonin was negative at presentation. We will follow-up admitting blood and urine culture. Pt afebrile, wbc mostly fluctuates around 13-14 K. ID evaled, see below. White count remains elevated at 12.27 Continue ceftazidime Stage IV decubitus ulcer, history of Sacral osteomyelitis Concern for recurrent UTI, CAUTI: Patient with chronic suprapubic catheter [see above]. Urine looks clean at bedside exam on first day, patient was noted to have Pseudomonas in his urine on 02/11/2023. For which he is being covered with cefepime itself. On chronic methenamine suppression Rx - will hold while on antibiotic actively. Cefepime changed to ceftazidime 03/04/23, ID Evaled - ok w/ current dose of ceftazidime; CRP now and QotherWk; CMP/CBC w/ diff weekly while on atb. End date of atb 03/24/23. Patient is a status post debridement of sacral ulcer by Dr. Srivastava on 02/11/2023 [previous admission]. Patient was being treated with cefepime for sacral osteomyelitis. 02/11 wound culture with Pseudomonas aeruginosa. Patient was evaluated by ID and recommended 6 weeks of IV cefepime at that time. PICC line was placed on 02/18. Cefepime has been changed to intravenous ceftazidime on 03/05/2023-likely the cause for congestion Discussed with the ID specialist and the pharmacist-ceftazidime will have less sodium and fluid administration compared with Zosyn We will continue with ceftazidime for now Wound care on board Pt will need close f/u w/ ID on DC. Seizure disorder:For breakthrough seizure in his 02/09 to 02/19 admission while on Keppra, his Keppra was changed to Depakote after neurology evaluation. Later patient self-discontinued Depakote due to intolerance. Evaluated by neurology again during his 02/23 - 02/26 admission, he was put back on Keppra with increased dose to 750 Mg twice daily from 500 mg BID in the past. Continue the home dose of Keppra. Patient to continue follow-up with his neurology upon discharge. Other chronic medical conditions:Resume/continue home meds as able Insulin-dependent T2DM: A1c of 6.9 this admission, glycemic pharmacy on board, sliding scale insulin. Neurogenic bladder/suprapubic cath in place/history of recurrent UTIs: hold methenamine hippurate until actively on antibiotic Rx. Colostomy status: Colostomy in place to prevent wound swelling, continue routine ostomy care Chronic anticoagulation secondary to coagulation disorder: Monitor INR daily or as needed, continue with home warfarin at reduced dose of 5 mg daily due to supratherapeutic INR at presentation. INR today subtherapeutic, extra warfarin dose of 2.5mg on top of daily 5 mg. pt/inr in am. 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 Repeat TFT in 6 weeks. DVT prophylaxis: on Warfarin Full code Dispo: CM to assist w/ dc plan, pending nephrology clearance. Patient's Ms. Rody Rodriguez, contact #[phone]. Discussed with the in detail Admission and Anticipated Discharge Date Admission Date: March 04, 2023 Subjective 03/10/2023 The patient was seen and examined in medical telemetry unit He has been feeling worse since this morning Complains chest tightness/epigastric discomfort with increasing shortness of breath Denies any pain, fever or chills and denies any nausea or vomiting Has been feeling that he is not feeling well 03/11/2023 The patient was seen and examined in medical telemetry unit He has been a little better today but he still remains confused Tolerating BiPAP reasonably Having diuresis Review of Systems Review of Systems: All systems reviewed and are unremarkable except as noted below Neurologic: Has quadriplegia without any evidence of worsening at this time Physical Exam Physical Exam: Lying in bed with BiPAP in situ and feeling a little better Constitutional: well developed, well nourished, + ill appearing and + morbidly obese Eyes: PERRL, conjunctivae normal, anicteric sclerae ENMT: external ear and nose normal, oropharynx normal Neck: trachea midline, no thyromegaly Respiratory: + respiratory distress and + tachypneic; + abnormal respiratory effort Auscultation: + diminished lung sounds and + crackles (Bibasally more on the left); no wheezes Cardiovascular: Rate/Rhythm: regular rate and regular rhythm; not tachycardic Heart Sounds: normal S1 and normal S2; no murmur Extremities: + edema (Trace to 1+ edema bilaterally) Gastrointestinal (Abdomen): Inspection/Auscultation: normal bowel sounds; abdomen not distended Percussion/Palpation: abdomen soft; abdomen nontender Musculoskeletal: No acute arthritis Neurologic: Alert and awake, pleasantly confused. Paraplegic, legs more than the upper extremities Lymphatic: no cervical or axillary lymphadenopathy Results & Data Results & Data Vital Signs (Past 12 Hours) Vital Signs Temp Pulse Pulse Resp BP Pulse Ox O2 Del Method 03/11/23 09:30 Nasal Cannula, BiPAP 03/11/23 11:30 81 18 140/69 96 Room Air 03/11/23 11:39 81 22 97 03/11/23 08:20 80 20 97 03/11/23 07:38 72 21 98 03/11/23 07:00 36.5 C 74 15 101/59 L 99 BiPAP 03/11/23 03:42 36.5 C 74 20 121/75 97 BiPAP O2 Flow Rate FiO2 03/11/23 09:30 5 03/11/23 11:30 03/11/23 11:39 30 03/11/23 08:20 30 03/11/23 07:38 40 03/11/23 07:00 03/11/23 03:42 4 Laboratory Results [facility] 03/11/23 06:42 Sodium 140 Potassium 4.0 Chloride 103 Carbon Dioxide 29 BUN 107 H Creatinine 3.95 H Glucose 113 H Calcium 8.7 Liver Function 03/11/23 Range/Units 06:42 Total Bilirubin 0.2 (0.2-1.0) mg/dl AST 22 (13-39) U/L ALT 21 (7-52) U/L Alkaline Phosphatase 65 (34-104) U/L Albumin 2.9 L (3.4-5.0) gm/dl Medications Administered Current Inpatient Medications Acetaminophen (Acetaminophen 325 Mg Tab) 650 mg PO Q4H PRN PRN Reason: Pain or Fever Stop: 04/03/23 03:36 Last Admin: 03/09/23 20:07 Dose: 650 mg Allopurinol (Allopurinol 100 Mg Tab) 100 mg PO BID JO Stop: 04/03/23 08:59 Last Admin: 03/11/23 09:29 Dose: Not Given Atorvastatin Calcium (Atorvastatin 40 Mg Tab) 40 mg PO HS [facility] Stop: 04/03/23 20:59 Last Admin: 03/10/23 21:19 Dose: Not Given Baclofen (Baclofen 10 Mg Tab) 10 mg PO DAILY@0000 [facility] Stop: 04/04/23 00:00 Last Admin: 03/11/23 01:44 Dose: Not Given Baclofen (Baclofen 10 Mg Tab) 5 mg PO DAILY@0600,1200,1800 [facility] Stop: 04/03/23 17:59 Last Admin: 03/11/23 06:14 Dose: Not Given Dextrose (Dextrose 50% 50 Ml Syringe) 25 - 50 ml IV UD PRN; Protocol PRN Reason: Hypoglycemia Protocol Stop: 04/03/23 03:37 Docusate Sodium (Docusate Sodium 100 Mg Cap) 100 mg PO AMHS JO Stop: 04/03/23 08:59 Last Admin: 03/11/23 09:29 Dose: Not Given Escitalopram Oxalate (Escitalopram Oxalate 20 Mg Tab) 20 mg PO QAM JO Stop: 04/03/23 08:59 Last Admin: 03/10/23 08:08 Dose: 20 mg Famotidine (Famotidine 20 Mg Tab) 20 mg PO BID [facility] Stop: 04/03/23 08:59 Last Admin: 03/11/23 09:29 Dose: Not Given Glucagon (Glucagon For Inj 1 Mg Vial) 1 mg SQ UD PRN; Protocol PRN Reason: Hypoglycemia Protocol Stop: 04/03/23 03:37 Glucose (Glucose 10 Tab/Tube) 4 - 8 tab PO UD PRN; Protocol PRN Reason: Hypoglycemia Treatment Stop: 04/03/23 03:37 Glucose (Glucose 40% Gel 15 Gm Tube) 15 - 30 gm PO UD PRN; Protocol PRN Reason: Hypoglycemia Protocol Stop: 04/03/23 03:37 Levetiracetam 750 mg/ Sodium (Chloride) 107.5 mls @ 420 mls/hr IV BID [facility] Stop: 04/03/23 20:59 Last Infusion: 03/11/23 09:47 Dose: Infused Ceftazidime 2,000 mg/ Dextrose 60 mls @ 120 mls/hr IV Q12H [facility] Stop: 04/15/23 16:29 Last Infusion: 03/11/23 07:13 Dose: Infused Pantoprazole Sodium 40 mg/ (Syringe) 10 mls @ 5 mls/min IV BID [facility] Stop: 04/09/23 21:44 Last Admin: 03/11/23 09:28 Dose: 5 mls/min Heparin Sodium/Dextrose (Heparin Sodium/Dextrose) 25,000 units in 500 mls @ 34 mls/hr IV .[id number] [facility]; Protocol Stop: 04/10/23 00:14 Last Admin: 03/11/23 12:41 Dose: 1,700 units/hr, 34 mls/hr Insulin Aspart (Insulin Aspart Per Unit Charge) 0 units SC ACHS [facility] Stop: 04/03/23 22:01 Last Admin: 03/11/23 11:49 Dose: Not Given Insulin Human NPH (Insulin Human Nph) 40 units SC BIDM [facility] Stop: 04/06/23 16:59 Last Admin: 03/11/23 08:58 Dose: Not Given Lactobacillus Acidophilus (Advanced Probiotic 1250 Mg Capsule) 2 cap PO BID [facility] Stop: 04/03/23 20:59 Last Admin: 03/11/23 09:29 Dose: Not Given Levothyroxine Sodium (Levothyroxine Sodium 25 Mcg Tablet) 25 mcg PO DAILYBB [facility] Stop: 04/03/23 06:29 Last Admin: 03/11/23 06:14 Dose: Not Given Lorazepam (Lorazepam 0.5 Mg Tab) 0.5 mg PO HS PRN PRN Reason: Anxiety with BPAP use Stop: 04/08/23 15:54 Last Admin: 03/10/23 15:44 Dose: 0.5 mg Magnesium Oxide (Magnesium Oxide 400 Mg Tab) 400 mg PO 0000,1200 [facility] Stop: 04/04/23 00:00 Last Admin: 03/11/23 12:26 Dose: Not Given Metoprolol Tartrate (Metoprolol Tartrate 25 Mg Tab) 12.5 mg PO QAM [facility] Stop: 04/05/23 08:59 Last Admin: 03/11/23 09:30 Dose: Not Given Miscellaneous (Carbohydrates For Hypoglycemia ) 15 - 30 gm PO UD PRN PRN Reason: Hypoglycemia Protocol Stop: 04/03/23 03:37 Miscellaneous (Tacrolimus~Order Awaiting Action) 1 each N/A QS [facility] Stop: 04/03/23 07:59 Last Admin: 03/11/23 08:58 Dose: Not Given Nystatin (Nystatin Powder 15gm Btl) 1 appln EXT BID [facility] Stop: 04/03/23 08:59 Last Admin: 03/11/23 09:28 Dose: 1 appln Pantoprazole Sodium (Pantoprazole 40 Mg Tab) 40 mg PO BID [facility] Stop: 04/03/23 08:59 Last Admin: 03/10/23 21:19 Dose: Not Given Tizanidine HCl (Tizanidine Hcl 4 Mg Tablet) 4 mg PO BID@0000,1200 [facility] Stop: 04/05/23 12:14 Last Admin: 03/11/23 01:45 Dose: Not Given Warfarin Sodium (Warfarin Sod 5 Mg Tab) 5 mg PO DAILY@1600 [facility] Stop: 04/06/23 15:59 Last Admin: 03/10/23 17:16 Dose: Not Given (1) Altered mental status Altered mental status type: somnolence Qualified Code(s): R40.0 - Somnolence
[2023-03-11] MEDS: WARFARIN SOD 5 MG TAB PO SCH (17:37)
[2023-03-11] MEDS: ATORVASTATIN 40 MG TAB PO SCH (22:53)
[2023-03-12] MEDS: HEPARIN SODIUM/DEXTROSE 25,000 UNITS/500 ML BAG IV SCH (03:29)
[2023-03-12] MEDS: LEVOTHYROXINE SODIUM 25 MCG TABLET PO SCH (05:26)
[2023-03-12 06:26] LABS: Basophils # (auto) 0.06 K/uL (0-0.2); Basophils % (auto) 0.6 %; Eosinophils # (auto) 0.26 K/uL (0-0.50); Eosinophils % (auto) 2.6 %; Hemoglobin 9.2 g/dl (14.0-18.0); Immature Granulocytes # (auto) 0.04 K/uL (0.01-0.20); Immature Granulocytes % (auto) 0.4 %; Lymphocytes # (auto) 1.52 K/uL (1.2-3.4); Lymphocytes % (auto) 15.4 %; Mean Corpuscular Hgb Conc 31.7 g/dL (32.0-36.0); Mean Corpuscular Volume 91.5 fL (80.0-100.0); Mean Platelet Volume 10.5 fL (9.4-12.4); Monocytes # (auto) 0.75 K/uL (0.11-0.59); Monocytes % (auto) 7.6 %; Neutrophils # (auto) 7.21 K/uL (1.40-6.50); Neutrophils % (auto) 73.4 %; Platelet Count 187 K/uL (130-400); RDW Coefficient of Variation 18.4 % (11.5-14.5); RDW Standard Deviation 62.2 fL (36.4-46.3); Red Blood Count 3.17 M/uL (4.70-6.10); White Blood Count 9.84 K/ul (4.8-10.8)
[2023-03-12 06:32] LABS: BUN Creatinine Ratio 29.5 (10-20); Creatinine Clr Calc Pharmacy 28.6 ml/min; Est GFR (African American) 17.8 ml/min; Est GFR (Non-African American) 15.4 ml/min; Potassium 4.3 mmol/L (3.5-5.1)
[2023-03-12 06:53] LABS: INR 2.3 (0.9-1.1); Prothrombin Time 23.5 Seconds (9.0-12.0)
--- NOTE | 2023-03-12 07:58 | Pulmonology Progress Note ---
Date of Service March 12, 2023 Assessment & Plan (1) Hypercapnic respiratory failure: (2) Altered mental status: Altered mental status type: somnolence Qualified Code(s): R40.0 - Somnolence (3) Obesity hypoventilation syndrome: (4) TORY (obstructive sleep apnea): Plan IMPRESSION: 62-year-old incomplete quadriplegic male with recurrent pneumonia and concerns for obesity hypoventilation syndrome and obstructive sleep apnea who is requiring increasing oxygen levels and change in mental status likely stemming from poor use of BiPAP. Pulmonary medicine reconsulted at this time given change in status. --Acute hypercapnic hypoxic respiratory failure Hypercapnia is likely secondary to noncompliance with BiPAP/CPAP along with multiple respiratory depressant medication Continue with BiPAP nightly and as needed shortness of breath O2 saturation between 88-92% -- Obstructive sleep apnea/OHS Was not able to tolerate BiPAP in the past but has been using it while here in the hospital and is willing to use it even at home --Morbid obesity Advised to lose with diet and exercise --DNI Plan: AB.35/50/61 on 2 L nasal cannula Patient will benefit from a trilogy machine. Case management aware Continue with diuresis Case discussed with Dr. Juarez Please note the above document was generated using voice recognition software. It may contain grammatical, syntax or spelling errors.Any formal questions or concerns about the content, text or information contained within the body of this dictation should be directly addressed to the provider for clarification. Admission and Anticipated Discharge Date Admission Date: March 04, 2023 Subjective Patient seen and examined at bedside. No acute distress, no adverse events overnight Patient's was in the room at the time of examination He was awake alert oriented, answering all the questions appropriately today Denies any chest pain, mild headache, no nausea vomiting Fair appetite Denies any abdominal pain Has been urinating well Review of Systems Review of Systems: All systems reviewed & are unremarkable except as noted in Subjective Physical Exam Physical Exam: Constitutional: No respiratory distress HEENT: EOMI, PERRLA Respiratory system: Decreased air entry bilaterally, no wheeze, no rhonchi, positive crackles bilateral lower lobes CVS: S1-S2 positive, no murmurs or gallops, distant heart sounds Abdomen: Soft, nontender, nondistended, positive bowel sounds x4, obese, positive left-sided colostomy Extremities: +2 pulses bilaterally radialis/ dorsalis pedis, no cyanosis, +1 pitting edema bilateral lower extremity Neuro: somnolent but easily arousable, oriented to self and place Psych: Normal mood and affect G/U: Positive [place] Skin: no rashes, warm and dry Lymphatic: no cervical or axillary lymphadenopathy Results & Data Results & Data Vital Signs (Past 12 Hours) Vital Signs Temp Pulse Pulse Resp BP Pulse Ox O2 Del Method 03/12/23 00:00 BiPAP 03/12/23 03:05 36.9 C 104 H 18 152/79 H 99 BiPAP 03/12/23 02:41 79 20 97 03/11/23 21:58 103 H 03/11/23 23:36 84 22 96 03/11/23 23:26 36.8 C 109 H 18 159/80 H 94 Nasal Cannula 03/11/23 22:00 Nasal Cannula O2 Flow Rate FiO2 03/12/23 00:00 30 03/12/23 03:05 30 03/12/23 02:41 30 03/11/23 21:58 03/11/23 23:36 30 03/11/23 23:26 4 03/11/23 22:00 3 Laboratory Results 03/12/23 05:26 03/12/23 05:26 PG Care Time/CCT Total # of Minutes Spent Total Time Spent with Patient: Total time spent is greater than 50% in coordination of care (as documented) at patient's floor/unit and/or counseling patient: Coding Level of Care Code 54109 SUB INP/OBS CARE 2/35MIN Diagnoses Hypercapnic respiratory failure J96.92 Altered mental status R40.0 Altered mental status type: somnolence Obesity hypoventilation syndrome E66.2 TORY (obstructive sleep apnea) G47.33
[2023-03-12 08:57] LABS: Base Excess ABG 1.2 mEq/L (-9-1.8); HCO3 ABG 28 mmol/L (19-24); PCO2 ABG 50 mmHg (35-46); PO2 ABG 61 mmHg (80-95); pH ABG 7.35 (7.35-7.45)
[2023-03-12 09:04] LABS: Oxygen Saturation ABG 88.2 % (90-95)
[2023-03-12 09:05] LABS: Allen Test POS (Pos)
[2023-03-12] MEDS: INSULIN HUMAN NPH SC SCH ×2 (09:06→17:47)
[2023-03-12] MEDS: levETIRAcetam 750 MG in 0.9 % SODIUM CHLORIDE 100 ML IV SCH ×2 (09:06→20:48)
[2023-03-12] MEDS: PANTOprazole 40 MG in SYRINGE 0 ML IV SCH ×2 (09:06→20:48)
[2023-03-12] MEDS: INSULIN ASPART PER UNIT CHARGE SC SCH ×4 (09:06→20:48)
[2023-03-12] MEDS: allopurinoL 100 MG TAB PO SCH ×2 (09:07→20:47)
[2023-03-12] MEDS: ADVANCED PROBIOTIC 1250 MG CAPSULE PO SCH ×2 (09:07→20:46)
[2023-03-12] MEDS: FAMOTIDINE 20 MG TAB PO SCH ×2 (09:08→20:47)
[2023-03-12] MEDS: DOCUSATE SODIUM 100 MG CAP PO SCH ×2 (09:08→20:47)
[2023-03-12] MEDS: METOPROLOL TARTRATE 25 MG TAB PO SCH (09:09)
[2023-03-12] MEDS: NYSTATIN POWDER 15GM BTL EXT SCH ×2 (09:10→20:49)
[2023-03-12] MEDS: MAGNESIUM OXIDE 400 MG TAB PO SCH ×2 (12:21→23:56)
--- NOTE | 2023-03-12 13:19 | Hospitalist Progress Note ---
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 In the ED, he was found to be in hypercapnic resp failure, also in ROBERT over CKD III. He is being managed for the following: Acute hypercapnic respiratory failure: Patient noted to be lethargic at presentation, CO2 of 61 in ABG at presentation. Likely secondary to underlying OHS. Admitting CT Head with no acute findings. Admitting CT chest with partial collapse of left lower lobe with underlying infection not excluded. Pulmonology consulted, recommend BPAP 15/10 w/ O2 on DC, sleep study as OP. Patient was put on BiPAP, was alert and back to baseline at bedside exam on the first day of exam. Condition got worse since this morning with more shortness of breath and somnolence Chest x-ray did show increasing congestion and received 80 mg of IV Lasix in the afternoon after discussion with the professional architect Appreciate manager decision support evaluation and recommendation Has been using BiPAP as tolerated and the condition is getting a little better CODE STATUS has been changed to conditional Remains hypercarbic with pH of 7.27 and PCO2 of 65 Clinically much better and the patient seems to be back to his baseline mentation Has been requiring only 3 L via nasal cannula to maintain saturation Will have trilogy at home on discharge Metabolic and toxic encephalopathy, multifactorial [see below] Patient was noted to be in confusion with hallucination for few days [employer]. Pt noted to be not eating and drinking well, there was concern of hydration. Likely secondary to respiratory failure due to congestion/infection and is complicated by ROBERT Now complicated by hypercarbia and acidosis Much improved clinically Treat underlying cause as below. Hold neuropsych meds as able. pt w/ chronic pain/spasms - resume home meds gradually, may need to cut down on some pain/spasm meds as tolerated, pt agreeable. Acute kidney injury over CKD stage III: Patient was found to be in ROBERT over CKD stage III, hypercapnic respiratory f ailure at presentation. Patient was using cefepime for his sacral osteomyelitis treatment for few weeks by the time of presentation. Patient's admitting BUN and creatinine were 57 and 2.56, up trended following day. Patient noted to have poor appetite and poor fluid intake prior to arrival. Likely prerenal. Baseline creatinine around 1. Renal ultrasound without obstruction. 2019 echo with EF of 65 to 70%. Hold nephrotoxics. Nephrology on board, appreciate recommendation. lasix (& hence kcl) & aldactone on hold. Monitor BMP. Cr appears pleauted. expect improvement. Has been getting controlled doses of Lasix Creatinine remains high and minimally up today at 3.95 Creatinine remains stable at 3.9 range Leukocytosis: WBC of 17.14K at presentation. Patient does appear to have chronic leukocytosis likely secondary to chronic osteomyelitis. Part of it may be contributed due to hemoconcentration secondary to poor appetite prior to arrival. Procalcitonin was negative at presentation. We will follow-up admitting blood and urine culture. Pt afebrile, wbc mostly fluctuates around 13-14 K. ID evaled, see below. White count remains elevated at 12.27 Continue ceftazidime Stage IV decubitus ulcer, history of Sacral osteomyelitis Concern for recurrent UTI, CAUTI: Patient with chronic suprapubic catheter [see above]. Urine looks clean at bedside exam on first day, patient was noted to have Pseudomonas in his urine on 02/11/2023. For which he is being covered with cefepime itself. On chronic methenamine suppression Rx - will hold while on antibiotic actively. Cefepime changed to ceftazidime 03/04/23, ID Evaled - ok w/ current dose of ceftazidime; CRP now and QotherWk; CMP/CBC w/ diff weekly while on atb. End date of atb 03/24/23. As above ceftazidime will be continued to finish the course of antibiotic Patient is a status post debridement of sacral ulcer by Dr. Srivastava on 02/11/2023 [previous admission]. Patient was being treated with cefepime for sacral osteomyelitis. 02/11 wound culture with Pseudomonas aeruginosa. Patient was evaluated by ID and recommended 6 weeks of IV cefepime at that time. PICC line was placed on 02/18. Cefepime has been changed to intravenous ceftazidime on 03/05/2023-likely the ca use for congestion Discussed with the ID specialist and the pharmacist-ceftazidime will have less sodium and fluid administration compared with Zosyn We will continue with ceftazidime for now Wound care on board Pt will need close f/u w/ ID on DC. Seizure disorder:For breakthrough seizure in his 02/09 to 02/19 admission while on Keppra, his Keppra was changed to Depakote after neurology evaluation. Later patient self-discontinued Depakote due to intolerance. Evaluated by neurology again during his 02/23 - 02/26 admission, he was put back on Keppra with increased dose to 750 Mg twice daily from 500 mg BID in the past. Continue the home dose of Keppra. Patient to continue follow-up with his neurology upon discharge. Other chronic medical conditions:Resume/continue home meds as able Insulin-dependent T2DM: A1c of 6.9 this admission, glycemic pharmacy on board, sliding scale insulin. Neurogenic bladder/suprapubic cath in place/history of recurrent UTIs: hold methenamine hippurate until actively on antibiotic Rx. Colostomy status: Colostomy in place to prevent wound swelling, continue routine ostomy care Chronic anticoagulation secondary to coagulation disorder: Monitor INR daily or as needed, continue with home warfarin at reduced dose of 5 mg daily due to supratherapeutic INR at presentation. INR today subtherapeutic, extra warfarin dose of 2.5mg on top of daily 5 mg. pt/inr in am. 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 Repeat TFT in 6 weeks. DVT prophylaxis: on Warfarin Full code Dispo: CM to assist w/ dc plan, pending nephrology clearance. Patient's Ms. Rody Rodriguez, contact #[phone]. Discussed with the in detail again today Admission and Anticipated Discharge Date Admission Date: March 04, 2023 Subjective 03/10/2023 The patient was seen and examined in medical telemetry unit He has been feeling worse since this morning Complains chest tightness/epigastric discomfort with increasing shortness of breath Denies any pain, fever or chills and denies any nausea or vomiting Has been feeling that he is not feeling well 03/11/2023 The patient was seen and examined in medical telemetry unit He has been a little better today but he still remains confused Tolerating BiPAP reasonably Having diuresis 03/12/2023 The patient was seen and examined in medical telemetry unit He has been feeling much better and talking normally to me this morning after about 2 or 3 days Has been degrading 3 L to maintain saturation Denies any other significant symptoms Review of Systems Review of Systems: All systems reviewed and are unremarkable except as noted below Neurologic: Has quadriplegia without any evidence of worsening at this time Physical Exam Physical Exam: Lying in bed with BiPAP in situ and feeling a little better Constitutional: well developed, well nourished, + ill appearing and + morbidly obese Eyes: PERRL, conjunctivae normal, anicteric sclerae ENMT: external ear and nose normal, oropharynx normal Neck: trachea midline, no thyromegaly Respiratory: + respiratory distress and + tachypneic; + abnormal respiratory effort Auscultation: + diminished lung sounds and + crackles (Bibasally more on the left); no wheezes Cardiovascular: Rate/Rhythm: regular rate and regular rhythm; not tachycardic Heart Sounds: normal S1 and normal S2; no murmur Extremities: + edema (Trace to 1+ edema bilaterally) Gastrointestinal (Abdomen): Inspection/Auscultation: normal bowel sounds; abdomen not distended Percussion/Palpation: abdomen soft; abdomen nontender Musculoskeletal: No acute arthritis involving any of the joint Skin: Extensive sacral decubiti-please see the picture Neurologic: Alert, awake and oriented x3. Has quadriplegia more in the legs than in the upper extremities Lymphatic: no cervical or axillary lymphadenopathy Results & Data Results & Data Vital Signs (Past 12 Hours) Vital Signs Temp Pulse Pulse Resp BP BP Pulse Ox 03/12/23 11:51 37.0 C 103 H 20 144/76 H 91 03/12/23 07:00 101 H 03/12/23 11:26 03/12/23 07:22 36.8 C 104 H 16 145/68 H 93 03/12/23 03:05 36.9 C 104 H 18 152/79 H 99 03/12/23 02:41 79 20 97 O2 Del Method O2 Flow Rate FiO2 03/12/23 11:51 Nasal Cannula 3 03/12/23 07:00 03/12/23 11:26 Nasal Cannula 3 03/12/23 07:22 Nasal Cannula 3 03/12/23 03:05 BiPAP 30 03/12/23 02:41 30 Laboratory Results Short CBC 03/12/23 Range/Units 05:26 WBC 9.84 (4.8-10.8) K/ul Hgb 9.2 L (14.0-18.0) g/dl Hct 29.0 L (42.0-52.0) % Plt Count 187 (130-400) K/uL BMP 03/12/23 05:26 Sodium 142 Potassium 4.3 Chloride 104 Carbon Dioxide 29 BUN 115 H Creatinine 3.90 H Glucose 136 H Calcium 9.0 Medications Administered Current Inpatient Medications Acetaminophen (Acetaminophen 325 Mg Tab) 650 mg PO Q4H PRN PRN Reason: Pain or Fever Stop: 04/03/23 03:36 Last Admin: 03/09/23 20:07 Dose: 650 mg Allopurinol (Allopurinol 100 Mg Tab) 100 mg PO BID [facility] Stop: 04/03/23 08:59 Last Admin: 03/12/23 09:07 Dose: 100 mg Atorvastatin Calcium (Atorvastatin 40 Mg Tab) 40 mg PO HS [facility] Stop: 04/03/23 20:59 Last Admin: 03/11/23 22:53 Dose: 40 mg Baclofen (Baclofen 10 Mg Tab) 10 mg PO DAILY@0000 [facility] Stop: 04/04/23 00:00 Last Admin: 03/11/23 01:44 Dose: Not Given Baclofen (Baclofen 10 Mg Tab) 5 mg PO DAILY@0600,1200,1800 [facility] Stop: 04/03/23 17:59 Last Admin: 03/11/23 06:14 Dose: Not Given Dextrose (Dextrose 50% 50 Ml Syringe) 25 - 50 ml IV UD PRN; Protocol PRN Reason: Hypoglycemia Protocol Stop: 04/03/23 03:37 Docusate Sodium (Docusate Sodium 100 Mg Cap) 100 mg PO AMHS JO Stop: 04/03/23 08:59 Last Admin: 03/12/23 09:08 Dose: 100 mg Escitalopram Oxalate (Escitalopram Oxalate 20 Mg Tab) 20 mg PO QAM JO Stop: 04/03/23 08:59 Last Admin: 03/10/23 08:08 Dose: 20 mg Famotidine (Famotidine 20 Mg Tab) 20 mg PO BID JO Stop: 04/03/23 08:59 Last Admin: 03/12/23 09:08 Dose: 20 mg Glucagon (Glucagon For Inj 1 Mg Vial) 1 mg SQ UD PRN; Protocol PRN Reason: Hypoglycemia Protocol Stop: 04/03/23 03:37 Glucose (Glucose 10 Tab/Tube) 4 - 8 tab PO UD PRN; Protocol PRN Reason: Hypoglycemia Treatment Stop: 04/03/23 03:37 Glucose (Glucose 40% Gel 15 Gm Tube) 15 - 30 gm PO UD PRN; Protocol PRN Reason: Hypoglycemia Protocol Stop: 04/03/23 03:37 Levetiracetam 750 mg/ Sodium (Chloride) 107.5 mls @ 420 mls/hr IV BID JO Stop: 04/03/23 20:59 Last Infusion: 03/12/23 09:33 Dose: Infused Ceftazidime 2,000 mg/ Dextrose 60 mls @ 120 mls/hr IV Q12H JO Stop: 04/15/23 16:29 Last Infusion: 03/12/23 05:59 Dose: Infused Pantoprazole Sodium 40 mg/ (Syringe) 10 mls @ 5 mls/min IV BID JO Stop: 04/09/23 21:44 Last Admin: 03/12/23 09:06 Dose: 5 mls/min Heparin Sodium/Dextrose (Heparin Sodium/Dextrose) 25,000 units in 500 mls @ 0 mls/hr IV .Q0M JO; Protocol Stop: 04/10/23 00:14 Last Titration: 03/12/23 03:43 Dose: Infused Insulin Aspart (Insulin Aspart Per Unit Charge) 0 units SC ACHS [facility] Stop: 04/03/23 22:01 Last Admin: 03/12/23 12:20 Dose: 5 units Insulin Human NPH (Insulin Human Nph) 40 units SC BIDM JO Stop: 04/06/23 16:59 Last Admin: 03/12/23 09:06 Dose: 40 units Lactobacillus Acidophilus (Advanced Probiotic 1250 Mg Capsule) 2 cap PO BID JO Stop: 04/03/23 20:59 Last Admin: 03/12/23 09:07 Dose: 2 cap Levothyroxine Sodium (Levothyroxine Sodium 25 Mcg Tablet) 25 mcg PO DAILYBB [facility] Stop: 04/03/23 06:29 Last Admin: 03/12/23 05:26 Dose: 25 mcg Lorazepam (Lorazepam 0.5 Mg Tab) 0.5 mg PO HS PRN PRN Reason: Anxiety with BPAP use Stop: 04/08/23 15:54 Last Admin: 03/10/23 15:44 Dose: 0.5 mg Magnesium Oxide (Magnesium Oxide 400 Mg Tab) 400 mg PO 0000,1200 [facility] Stop: 04/04/23 00:00 Last Admin: 03/12/23 12:21 Dose: 400 mg Metoprolol Tartrate (Metoprolol Tartrate 25 Mg Tab) 12.5 mg PO QAM [facility] Stop: 04/05/23 08:59 Last Admin: 03/12/23 09:09 Dose: 12.5 mg Miscellaneous (Carbohydrates For Hypoglycemia ) 15 - 30 gm PO UD PRN PRN Reason: Hypoglycemia Protocol Stop: 04/03/23 03:37 Miscellaneous (Tacrolimus~Order Awaiting Action) 1 each N/A QS [facility] Stop: 04/03/23 07:59 Last Admin: 03/12/23 09:02 Dose: Not Given Nystatin (Nystatin Powder 15gm Btl) 1 appln EXT BID [facility] Stop: 04/03/23 08:59 Last Admin: 03/12/23 09:10 Dose: 1 appln Pantoprazole Sodium (Pantoprazole 40 Mg Tab) 40 mg PO BID [facility] Stop: 04/03/23 08:59 Last Admin: 03/10/23 21:19 Dose: Not Given Tizanidine HCl (Tizanidine Hcl 4 Mg Tablet) 4 mg PO BID@0000,1200 [facility] Stop: 04/05/23 12:14 Last Admin: 03/11/23 01:45 Dose: Not Given Warfarin Sodium (Warfarin Sod 5 Mg Tab) 5 mg PO DAILY@1600 [facility] Stop: 04/06/23 15:59 Last Admin: 03/11/23 17:37 Dose: 5 mg (1) Altered mental status Altered mental status type: somnolence Qualified Code(s): R40.0 - Somnolence
[2023-03-12] MEDS: ACETAMINOPHEN 325 MG TAB PO PRN (13:30)
[2023-03-12] MEDS ORDERED: PROMETHAZINE HCL 12.5 MG in SODIUM CHLORIDE 0.9% 50 ML IV STA (13:39)
[2023-03-12] MEDS ORDERED: ALUMINUM/MAGNESIUM SUSP 30 ML UDC PO STA (14:17)
--- NOTE | 2023-03-12 16:46 | Nephrology Progress Note ---
Date of Service March 12, 2023 Assessment & Plan (1) ROBERT (acute kidney injury): Plan: again today worsening Stage 3 nonoliguric ROBERT from ischemic ATN in the setting of sepsis, acute respiratory failure. Baseline creatinine is one. Presenting creatinine 03/03 PM 2.6, with plateau for several days at 3.6 on 03/08 until he needed lasix for worsening dypsnea/respiratory failure -suspect cephalosporin associated AIN versus ischemic ATN after presenting w/ altered MS on OP lasix, spironolactone >avoid standing diuretic dose but can redose PRN if needed >> he is autod iuresing nicely >>STRICT I/O >continue pulmonary care/ f/u their recs > he is unfortunately showing only moderate improvement with bipap given his multifocal respiratory failure -Monitor input output and daily BMP. Increased urine output is reassuring and creatinine is expected to start downtrending if no further clinical setbacks -no indication for discussion of dialysis but cannot rule out need Admission and Anticipated Discharge Date Admission Date: March 04, 2023 Subjective seen on early am rounds; at bedside. pt notes more mm spasms and w/ these pain. denies sob. tolerating mask though did not tolerate bipap last night. pulm recs consistent use. pt autodiuresing and 2.3 L negative past 72 hrs. Review of Systems Review of Systems: All systems reviewed & are unremarkable except as noted in Subjective Physical Exam Constitutional: well developed, well nourished, + physical limitations and cooperative; no acute distress Eyes: EOM intact bilaterally ENMT: Ears: no external ear abnormality Nose: no external nose abnormality Mouth: + dry oral mucous membranes Neck: no nuchal rigidity Respiratory: normal respiratory effort; not tachypneic Auscultation: + diminished lung sounds Cardiovascular: RRR, no murmur, no edema Gastrointestinal (Abdomen): Inspection/Auscultation: normal bowel sounds; + abdomen abnormal to inspection (colostomy present) Percussion/Palpation: abdomen soft; abdomen nontender and no guarding Musculoskeletal: Extremities: + limited ROM of extremities, strength 5/5 throughout and + abnormal strength Skin: no rashes, warm and dry Results & Data Vital Signs (Past 12 Hours) Vital Signs Temp Pulse Pulse Resp BP Pulse Ox Pulse Ox 03/12/23 16:41 96 H 03/12/23 16:04 36.5 C 74 20 94/58 L 96 03/12/23 15:00 94 03/12/23 15:14 36.5 C 98 H 20 162/80 H 90 03/12/23 13:46 36.7 C 98 H 20 158/81 H 93 03/12/23 11:51 37.0 C 103 H 20 144/76 H 91 03/12/23 07:00 101 H 03/12/23 11:26 03/12/23 07:22 36.8 C 104 H 16 145/68 H 93 O2 Del Method O2 Del Method O2 Flow Rate O2 Flow Rate 03/12/23 16:41 03/12/23 16:04 Nasal Cannula 3 03/12/23 15:00 Nasal Cannula 4 03/12/23 15:14 Nasal Cannula 3 03/12/23 13:46 Nasal Cannula 3 03/12/23 11:51 Nasal Cannula 3 03/12/23 07:00 03/12/23 11:26 Nasal Cannula 3 03/12/23 07:22 Nasal Cannula 3 Laboratory Results 03/12/23 05:26 03/12/23 05:26
[2023-03-12] MEDS: BACLOFEN 10 MG TAB PO SCH ×2 (17:21→23:57)
--- NOTE | 2023-03-12 17:31 | CT Scan Report ---
CT SCAN OF THE ABDOMEN AND PELVIS WITHOUT IV CONTRAST CLINICAL HISTORY: Generalized abdominal pain. COMPARISON STUDY: Abdominal CT dated 02/23/2023. TECHNIQUE: CT scan of the abdomen and pelvis is performed from the lung bases to the proximal femora. Images are reviewed in the axial, sagittal, and coronal planes. IV contrast was not administered for this examination as per the referring clinician. Note that the examination was performed in suboptim al fashion without oral and IV contrast. There is also motion artifact. A dose lowering technique was utilized adhering to the principles of ALARA. CT DOSE: 1908.22 mGy.cm FINDINGS: Lung bases: The heart is mildly enlarged and without pericardial effusion. The coronary arteries are densely calcified. There are right larger than left pleural effusions with dependent consolidation. Liver: The unenhanced liver is enlarged, measuring 21 cm in length. The liver demonstrates diminished attenuation indicating steatosis. Fatty sparing is seen adjacent to the gallbladder fossa. There is no intrahepatic biliary ductal dilatation. Gallbladder: Unremarkable. Spleen: The spleen is mildly enlarged measuring 13.9 cm in length. Pancreas: The unenhanced pancreas is mildly atrophic and grossly unremarkable. Adrenal glands: A 2.3 cm adenoma of the right adrenal gland is unchanged. The left adrenal gland is n ormal as imaged. Kidneys: The unenhanced kidneys demonstrate mild cortical atrophy and are without hydronephrosis. The re are at least 3 nonobstructing right renal calculi which measure up to 4 mm. No left renal calculi are identified and there is no ureteral stone. There is no evidence of contour deforming renal mass l esion. Abdominal vasculature: The abdominal aorta is normal in course and caliber noting mild/moderate ather osclerotic calcification. The IVC is diminutive and likely chronically occluded with an infrarenal IV C filter in place. Bowel: There is a left lower quadrant colostomy. No bowel obstruction is seen. Moderate fecal retenti on is noted throughout the colon. The appendix is not visualized. Peritoneum: There is no intraperitoneal free air or abdominal ascites. Lymphadenopathy: None. 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 Pelvic viscera: The bladder is decompressed around a suprapubic catheter. The wall appears thickened with surrounding inflammation. There is gas within the bladder lumen. The prostate gland is diminutiv e and heterogeneous. The seminal vesicles are normal as visualized. There is a fat-containing right i nguinal hernia. Skeletal structures: The skeletal structures are osteopenic. Moderate lumbosacral spondylosis is obse rved. There is chronic deformity and postsurgical change noted in the left posterior ribs. No lytic o r blastic lesions are seen. Postsurgical changes noted in the left proximal femur. A large decubitus ulceration overlies the left ischial tuberosity this is associated soft tissue thickening. Sclerotic change within the left ischium is similar to previous and likely represents chronic osteomyelitis. IMPRESSION: 1. Suboptimal examination without oral and IV contrast. There is also motion artifact. 2. The bladder is decompressed around a suprapubic catheter, and appears thick-walled with surroundin g inflammation. Correlate with clinical findings and urinalysis for evidence of cystitis. 3. Moderate constipation. No bowel obstruction is seen. 4. Right larger than left pleural effusions with dependent consolidation. This could represent atelec tasis and/or pneumonia/aspiration pneumonitis. This is new from 02/23/2023. Clinical correlation will be required. 5. A decubitus ulceration is again seen overlying the left ischial tuberosity with probable chronic o steomyelitis of the ischial tuberosity. This is unchanged from previous. 6. Cardiomegaly with advanced coronary artery calcification. 7. Right sided nephrolithiasis. 8. Additional findings as above. ACT 112: Negative or not required by law. Electronically signed by: José Wise M.D. 03/12/2023 5:29 PM
[2023-03-12] MEDS: WARFARIN SOD 5 MG TAB PO SCH (17:46)
[2023-03-12] MEDS ORDERED: ACETAMINOPHEN 1,000 MG/100 ML VIAL IV PRN (17:53)
[2023-03-12] MEDS: ATORVASTATIN 40 MG TAB PO SCH (20:46)
--- NOTE | 2023-03-12 22:35 | Electrocardiogram Report ---
Test Reason : Blood Pressure : / mmHG Vent. Rate : 090 BPM Atrial Rate : 090 BPM P-R Int : 120 ms QRS Dur : 132 ms QT Int : 414 ms P-R-T Axes : -25 001 -17 degrees QTc Int : 506 ms Normal sinus rhythm Right bundle branch block Cannot rule out Anterior infarct , age undetermined Abnormal ECG When compared with ECG of 03-MAR-2023 20:11, No significant change was found Confirmed by Kavon Nieto ([id number]) on 03/12/2023 10:35:11 PM Referred By: REFERRED SELF Confirmed By:Kavon Nieto
[2023-03-12] MEDS: tiZANidine HCL 4 MG TABLET PO SCH (23:58)
[2023-03-13] MEDS: LEVOTHYROXINE SODIUM 25 MCG TABLET PO SCH (05:19)
[2023-03-13] MEDS: BACLOFEN 10 MG TAB PO SCH ×4 (05:19→22:15)
[2023-03-13 06:45] LABS: BUN Creatinine Ratio 27.9 (10-20); Calcium 8.6 mg/dl (8.6-10.3); Creatinine Clr Calc Pharmacy 26.9 ml/min; Est GFR (African American) 16.4 ml/min; Est GFR (Non-African American) 14.1 ml/min; Potassium 4.5 mmol/L (3.5-5.1)
--- NOTE | 2023-03-13 07:09 | Electrocardiogram Report ---
Test Reason : Blood Pressure : / mmHG Vent. Rate : 097 BPM Atrial Rate : 097 BPM P-R Int : 178 ms QRS Dur : 128 ms QT Int : 416 ms P-R-T Axes : 027 000 009 degrees QTc Int : 528 ms Normal sinus rhythm Right bundle branch block Cannot rule out Anterior infarct (cited on or before 10-MAR-2023) Abnormal ECG Confirmed by Dillan Irene ([id number] on 03/13/2023 7:09:22 AM Referred By: REFERRED SELF Confirmed By:Monroe Irene
--- NOTE | 2023-03-13 07:39 | Pulmonology Progress Note ---
Date of Service March 13, 2023 Assessment & Plan (1) Hypercapnic respiratory failure: (2) Altered mental status: Altered mental status type: somnolence Qualified Code(s): R40.0 - Somnolence (3) Obesity hypoventilation syndrome: (4) TORY (obstructive sleep apnea): Plan IMPRESSION: 62-year-old incomplete quadriplegic male with recurrent pneumonia and concerns for obesity hypoventilation syndrome and obstructive sleep apnea who is requiring increasing oxygen levels and change in mental status likely stemming from poor use of BiPAP. Pulmonary medicine reconsulted at this time given change in status. --Acute hypercapnic hypoxic respiratory failure Hypercapnia is likely secondary to noncompliance with BiPAP/CPAP along with multiple respiratory depressant medication Continue with BiPAP nightly and as needed shortness of breath O2 saturation between 88-92% -- Obstructive sleep apnea/OHS Was not able to tolerate BiPAP in the past but has been using it while here in the hospital and is willing to use it even at home --Morbid obesity Advised to lose with diet and exercise --DNI Plan: In/out: -2 L, urine urine output 2375 Case management working on getting the patient trilogy machine. Continue with diuresis Case discussed with Dr. Juarez No further recommendation from pulmonary perspective, will sign off, please call directly with any questions Please note the above document was generated using voice recognition software. It may contain grammatical, syntax or spelling errors.Any formal questions or concerns about the content, text or information contained within the body of this dictation should be directly addressed to the provider for clarification. Admission and Anticipated Discharge Date Admission Date: March 04, 2023 Subjective Patient seen and examined at bedside. No acute distress, no adverse events overnight He has been using his BiPAP whenever he is sleeping He just finished his lunch. He was a little bit drowsy but answering all the questions appropriately Complains of mild headache, no abdominal pain, no chest pain Fair appetite Review of Systems Review of Systems: All systems reviewed & are unremarkable except as noted in Subjective Physical Exam Physical Exam: Constitutional: No respiratory distress HEENT: EOMI, PERRLA Respiratory system: Decreased air entry bilaterally, no wheeze, no rhonchi, positive crackles bilateral lower lobes CVS: S1-S2 positive, no murmurs or gallops, distant heart sounds Abdomen: Soft, nontender, nondistended, positive bowel sounds x4, obese, positive left-sided colostomy Extremities: +2 pulses bilaterally radialis/ dorsalis pedis, no cyanosis, +1 pitting edema bilateral lower extremity Neuro: somnolent but easily arousable, oriented to self and place Psych: Normal mood and affect G/U: Positive [place] Skin: no rashes, warm and dry Lymphatic: no cervical or axillary lymphadenopathy Results & Data Results & Data Vital Signs (Past 12 Hours) Vital Signs Temp Pulse Pulse Resp BP Pulse Ox O2 Del Method 03/13/23 06:06 35.8 C L 03/13/23 03:12 35.6 C L 62 106/58 L 93 BiPAP 03/13/23 02:15 62 24 97 03/12/23 22:00 79 03/12/23 22:56 35.9 C L 85 124/68 98 BiPAP 03/12/23 21:00 Nasal Cannula 03/12/23 21:42 86 27 H 95 O2 Flow Rate FiO2 03/13/23 06:06 03/13/23 03:12 30 03/13/23 02:15 30 03/12/23 22:00 03/12/23 22:56 30 03/12/23 21:00 4 03/12/23 21:42 30 Laboratory Results 03/12/23 05:26 03/13/23 05:17 PG Care Time/CCT Total # of Minutes Spent Total Time Spent with Patient: Total time spent is greater than 50% in coordination of care (as documented) at patient's floor/unit and/or counseling patient: Coding Level of Care Code 47425 SUB INP/OBS CARE 2/35MIN Diagnoses Hypercapnic respiratory failure J96.92 Altered mental status R40.0 Altered mental status type: somnolence Obesity hypoventilation syndrome E66.2 TORY (obstructive sleep apnea) G47.33
[2023-03-13] MEDS: METOPROLOL TARTRATE 25 MG TAB PO SCH (09:05)
[2023-03-13] MEDS: INSULIN ASPART PER UNIT CHARGE SC SCH ×4 (09:05→20:56)
[2023-03-13] MEDS: ADVANCED PROBIOTIC 1250 MG CAPSULE PO SCH ×2 (09:06→20:55)
[2023-03-13] MEDS: allopurinoL 100 MG TAB PO SCH ×2 (09:06→20:54)
[2023-03-13] MEDS: FAMOTIDINE 20 MG TAB PO SCH ×2 (09:07→20:55)
[2023-03-13] MEDS: DOCUSATE SODIUM 100 MG CAP PO SCH ×2 (09:07→20:53)
[2023-03-13] MEDS: INSULIN HUMAN NPH SC SCH ×2 (09:08→17:14)
[2023-03-13] MEDS: NYSTATIN POWDER 15GM BTL EXT SCH ×2 (09:09→20:55)
[2023-03-13] MEDS: PANTOprazole 40 MG in SYRINGE 0 ML IV SCH ×2 (09:12→20:56)
[2023-03-13] MEDS: levETIRAcetam 750 MG in 0.9 % SODIUM CHLORIDE 100 ML IV SCH ×2 (09:12→20:57)
--- NOTE | 2023-03-13 10:37 | Nephrology Progress Note ---
Date of Service March 13, 2023 Assessment & Plan (1) ROBERT (acute kidney injury): Plan: Worsening Stage 3 nonoliguric ROBERT from ischemic ATN in the setting of sepsis, acute respiratory failure. Baseline creatinine is one. Presenting creatinine 03/03 PM 2.6, with plateau for several days at 3.6 on 03/08 until he needed lasix for worsening dypsnea/respiratory failure -suspect cephalosporin associated AIN versus ischemic ATN after presenting w/ altered MS on OP lasix, spironolactone >avoid standing diuretic dose but can redose PRN if needed >> he is autodiuresing nicely >>STRICT I/O >continue pulmonary care/ f/u their recs > he is unfortunately showing only moderate improvement with bipap given his multifocal respiratory failure -Monitor input output and daily BMP. Increased urine output is reassuring and creatinine is expected to start downtrending if no further clinical setbacks -no indication for discussion of dialysis but cannot rule out need Admission and Anticipated Discharge Date Admission Date: March 04, 2023 Subjective Comfortable, denies sob, On nasal cannula. pt autodiuresing around 2 L in last 24 hours Review of Systems Review of Systems: All systems reviewed & are unremarkable except as noted in HPI & below Physical Exam Physical Exam: Constitutional: No respiratory distress HEENT: EOMI, PERRLA Respiratory system:Decreased air entry bilaterally CVS: S1-S2 positive, no murmurs or gallops, distant heart sounds Abdomen: Soft, nontender, nondistended, positive bowel sounds x4,obese, positive left-sided colostomy Extremities: +2 pulses bilaterally radialis/ dorsalis pedis, no cyanosis,+1 pitting edema bilateral lower extremity Neuro: oriented to self and place Results & Data Vital Signs (Past 12 Hours) Vital Signs Temp Pulse Pulse Pulse Resp BP Pulse Ox 03/13/23 07:35 36.5 C 78 16 124/68 97 03/13/23 08:26 80 20 127/65 97 03/13/23 08:00 63 03/13/23 06:06 35.8 C L 03/13/23 03:12 35.6 C L 62 106/58 L 93 03/13/23 02:15 62 24 97 03/12/23 22:56 35.9 C L 85 124/68 98 O2 Del Method O2 Flow Rate FiO2 03/13/23 07:35 Nasal Cannula 4 03/13/23 08:26 Nasal Cannula 4 03/13/23 08:00 03/13/23 06:06 03/13/23 03:12 BiPAP 30 03/13/23 02:15 30 03/12/23 22:56 BiPAP 30 Laboratory Results 03/12/23 05:26 03/13/23 05:17
--- NOTE | 2023-03-13 11:00 | Hospitalist Progress Note ---
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 In the ED, he was found to be in hypercapnic resp failure, also in ROBERT over CKD III. He is being managed for the following: Sinus pauses Noted to have up to 4-second pause and monitor Did not have any symptoms EKG this morning looks okay Cardiology consulted Acute hypercapnic respiratory failure: Patient noted to be lethargic at presentation, CO2 of 61 in ABG at presentation. Likely secondary to underlying OHS. Admitting CT Head with no acute findings. Admitting CT chest with partial collapse of left lower lobe with underlying infection not excluded. Pulmonology consulted, recommend BPAP 15/10 w/ O2 on DC, sleep study as OP. Patient was put on BiPAP, was alert and back to baseline at bedside exam on the first day of exam. Condition got worse since this morning with more shortness of breath and somnolence Chest x-ray did show increasing congestion and received 80 mg of IV Lasix in the afternoon after discussion with the competitive shopper Appreciate medical translator evaluation and recommendation Has been using BiPAP as tolerated and the condition is getting a little better CODE STATUS has been changed to conditional Remains hypercarbic with pH of 7.27 and PCO2 of 65 Clinically much better and the patient seems to be back to his baseline mentation Has been requiring only 3 L via nasal cannula to maintain saturation Will have trilogy at home on discharge Stable respiratory symptoms and has been requiring 4 L today Metabolic and toxic encephalopathy, multifactorial [see below] Patient was noted to be in confusion with hallucination for few days 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 Pt noted to be not eating and drinking well, there was concern of hydration. Likely secondary to respiratory failure due to congestion/infection and is complicated by ROBERT Now complicated by hypercarbia and acidosis Much improved clinically Treat underlying cause as below. Hold neuropsych meds as able. pt w/ chronic pain/spasms - resume home meds gradually, may need to cut down on some pain/spasm meds as tolerated, pt agreeable. Acute kidney injury over CKD stage III: Patient was found to be in ROBERT over CKD stage III, hypercapnic respiratory f ailure at presentation. Patient was using cefepime for his sacral osteomyelitis treatment for few weeks by the time of presentation. Patient's admitting BUN and creatinine were 57 and 2.56, up trended following day. Patient noted to have poor appetite and poor fluid intake prior to arrival. Likely prerenal. Baseline creatinine around 1. Renal ultrasound without obstruction. 2019 echo with EF of 65 to 70%. Hold nephrotoxics. Nephrology on board, appreciate recommendation. lasix (& hence kcl) & aldactone on hold. Monitor BMP. Cr appears pleauted. expect improvement. Has been getting controlled doses of Lasix Creatinine remains high and minimally up today at 3.95 Creatinine remains stable at 3.9 range Kidney function is slightly worse Leukocytosis: WBC of 17.14K at presentation. Patient does appear to have chronic leukocytosis likely secondary to chronic osteomyelitis. Part of it may be contributed due to hemoconcentration secondary to poor appetite prior to arrival. Procalcitonin was negative at presentation. We will follow-up admitting blood and urine culture. Pt afebrile, wbc mostly flu ctuates around 13-14 K. ID evaled, see below. White count remains elevated at 12.27 Continue ceftazidime Stage IV decubitus ulcer, history of Sacral osteomyelitis Concern for recurrent UTI, CAUTI: Patient with chronic suprapubic catheter [see above]. Urine looks clean at bedside exam on first day, patient was noted to have Pseudomonas in his urine on 02/11/2023. For which he is being covered with cefepime itself. On chronic methenamine suppression Rx - will hold while on antibiotic actively. Cefepime changed to ceftazidime 03/04/23, ID Evaled - ok w/ current dose of ceftazidime; CRP now and QotherWk; CMP/CBC w/ diff weekly while on atb. End date of atb 03/24/23. As above ceftazidime will be continued to finish the course of antibiotic Patient is a status post debridement of sacral ulcer by Dr. Srivastava on 02/11/2023 [previous admission]. Patient was being treated with cefepime for sacral osteomyelitis. 02/11 wound culture with Pseudomonas aeruginosa. Patient was evaluated by ID and recommended 6 weeks of IV cefepime at that time. PICC line was placed on 02/18. Cefepime has been changed to intravenous ceftazidime on 03/05/2023-likely the cause for congestion Discussed with the ID specialist and the pharmacist-ceftazidime will have less sodium and fluid administration compared with Zosyn We will continue with ceftazidime for now Wound care on board Pt will need close f/u w/ ID on DC. Seizure disorder:For breakthrough seizure in his 02/09 to 02/19 admission while on Keppra, his Keppra was changed to Depakote after neurology evaluation. Later patient self-discontinued Depakote due to intolerance. Evaluated by neurology again during his 02/23 - 02/26 admission, he was put back on Keppra with increased dose to 750 Mg twice daily from 500 mg BID in the past. Continue the home dose of Keppra. Patient to continue follow-up with his neurology upon discharge. Other chronic medical conditions:Resume/continue home meds as able Insulin-dependent T2DM: A1c of 6.9 this admission, glycemic pharmacy on board, sliding scale insulin. Neurogenic bladder/suprapubic cath in place/history of recurrent UTIs: hold methenamine hippurate until actively on antibiotic Rx. Colostomy status: Colostomy in place to prevent wound swelling, continue routine ostomy care Chronic anticoagulation secondary to coagulation disorder: Monitor INR daily or as needed, continue with home warfarin at reduced dose of 5 mg daily due to supratherapeutic INR at presentation. INR today subtherapeutic, extra warfarin dose of 2.5mg on top of daily 5 mg. pt/inr in am. 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 Repeat TFT in 6 weeks. DVT prophylaxis: on Warfarin Full code Dispo: CM to assist w/ dc plan, pending nephrology clearance. Patient's Ms. Rody Rodriguez, contact #[phone]. Discussed with the in detail on the other day Admission and Anticipated Discharge Date Admission Date: March 04, 2023 Subjective 03/10/2023 The patient was seen and examined in medical telemetry unit He has been feeling worse since this morning Complains chest tightness/epigastric discomfort with increasing shortness of breath Denies any pain, fever or chills and denies any nausea or vomiting Has been feeling that he is not feeling well 03/11/2023 The patient was seen and examined in medical telemetry unit He has been a little better today but he still remains confused Tolerating BiPAP reasonably Having diuresis 03/12/2023 The patient was seen and examined in medical telemetry unit He has been feeling much better and talking normally to me this morning after about 2 or 3 days Has been degrading 3 L to maintain saturation Denies any other significant symptoms 03/13/2023 The patient was seen and examined in the medical telemetry unit He was noted to have up to year 4-second pause last night without any symptoms He has been feeling much better this morning denies any significant symptom No more abdominal pain Review of Systems Review of Systems: All systems reviewed and are unremarkable except as noted below Neurologic: Has quadriplegia without any evidence of worsening at this time Physical Exam Physical Exam: Lying in bed without any acute distress and has been on 4 L of oxygen via nasal cannula Constitutional: well developed, well nourished, + ill appearing and + morbidly obese Eyes: PERRL, conjunctivae normal, anicteric sclerae ENMT: external ear and nose normal, oropharynx normal Neck: trachea midline, no thyromegaly Respiratory: no respiratory distress and not tachypneic Auscultation: + diminished lung sounds and + crackles (Bibasally more on the left); no wheezes Cardiovascular: Rate/Rhythm: regular rate and regular rhythm; not tachycardic Heart Sounds: normal S1 and normal S2; no murmur Extremities: + edema (Trace to 1+ edema bilaterally) Gastrointestinal (Abdomen): Inspection/Auscultation: normal bowel sounds; abdomen not distended Percussion/Palpation: abdomen soft; abdomen nontender Colostomy seems to be intact and draining normally Musculoskeletal: No acute arthritis involving any joint Neurologic: Alert, awake and oriented x3. Has quadriplegia more in the legs than in the upper extremities Lymphatic: no cervical or axillary lymphadenopathy Results & Data Results & Data Vital Signs (Past 12 Hours) Vital Signs Temp Pulse Pulse Pulse Resp BP Pulse Ox 03/13/23 09:30 03/13/23 07:35 36.5 C 78 16 124/68 97 03/13/23 08:26 80 20 127/65 97 03/13/23 08:00 63 03/13/23 06:06 35.8 C L 03/13/23 03:12 35.6 C L 62 106/58 L 93 03/13/23 02:15 62 24 97 03/12/23 22:56 35.9 C L 85 124/68 98 O2 Del Method O2 Flow Rate FiO2 03/13/23 09:30 Nasal Cannula 4 03/13/23 07:35 Nasal Cannula 4 03/13/23 08:26 Nasal Cannula 4 03/13/23 08:00 03/13/23 06:06 03/13/23 03:12 BiPAP 30 03/13/23 02:15 30 03/12/23 22:56 BiPAP 30 Laboratory Results BMP 03/13/23 05:17 Sodium 144 Potassium 4.5 Chloride 107 Carbon Dioxide 29 BUN 117 H Creatinine 4.19 H Glucose 70 Calcium 8.6 Medications Administered Current Inpatient Medications Acetaminophen (Acetaminophen 325 Mg Tab) 650 mg PO Q4H PRN PRN Reason: Pain or Fever Stop: 04/03/23 03:36 Last Admin: 03/12/23 13:30 Dose: 650 mg Allopurinol (Allopurinol 100 Mg Tab) 100 mg PO BID [facility] Stop: 04/03/23 08:59 Last Admin: 03/13/23 09:06 Dose: 100 mg Atorvastatin Calcium (Atorvastatin 40 Mg Tab) 40 mg PO HS [facility] Stop: 04/03/23 20:59 Last Admin: 03/12/23 20:46 Dose: 40 mg Baclofen (Baclofen 10 Mg Tab) 10 mg PO DAILY@0000 JO Stop: 04/04/23 00:00 Last Admin: 03/12/23 23:57 Dose: 10 mg Baclofen (Baclofen 10 Mg Tab) 5 mg PO DAILY@0600,1200,1800 JO Stop: 04/03/23 17:59 Last Admin: 03/13/23 05:19 Dose: 5 mg Dextrose (Dextrose 50% 50 Ml Syringe) 25 - 50 ml IV UD PRN; Protocol PRN Reason: Hypoglycemia Protocol Stop: 04/03/23 03:37 Docusate Sodium (Docusate Sodium 100 Mg Cap) 100 mg PO AMHS JO Stop: 04/03/23 08:59 Last Admin: 03/13/23 09:07 Dose: 100 mg Escitalopram Oxalate (Escitalopram Oxalate 20 Mg Tab) 20 mg PO QAM JO Stop: 04/03/23 08:59 Last Admin: 03/10/23 08:08 Dose: 20 mg Famotidine (Famotidine 20 Mg Tab) 20 mg PO BID JO Stop: 04/03/23 08:59 Last Admin: 03/13/23 09:07 Dose: 20 mg Glucagon (Glucagon For Inj 1 Mg Vial) 1 mg SQ UD PRN; Protocol PRN Reason: Hypoglycemia Protocol Stop: 04/03/23 03:37 Glucose (Glucose 10 Tab/Tube) 4 - 8 tab PO UD PRN; Protocol PRN Reason: Hypoglycemia Treatment Stop: 04/03/23 03:37 Glucose (Glucose 40% Gel 15 Gm Tube) 15 - 30 gm PO UD PRN; Protocol PRN Reason: Hypoglycemia Protocol Stop: 04/03/23 03:37 Levetiracetam 750 mg/ Sodium (Chloride) 107.5 mls @ 420 mls/hr IV BID [facility] Stop: 04/03/23 20:59 Last Infusion: 03/13/23 10:30 Dose: Infused Pantoprazole Sodium 40 mg/ (Syringe) 10 mls @ 5 mls/min IV BID [facility] Stop: 04/09/23 21:44 Last Admin: 03/13/23 09:12 Dose: 5 mls/min Heparin Sodium/Dextrose (Heparin Sodium/Dextrose) 25,000 units in 500 mls @ 0 mls/hr IV .Q0M [facility]; Protocol Stop: 04/10/23 00:14 Last Titration: 03/12/23 03:43 Dose: Infused Ceftazidime 2,000 mg/ Dextrose 60 mls @ 120 mls/hr IV DAILY@0600 [facility]; Protocol Stop: 04/15/23 05:59 Last Infusion: 03/13/23 06:07 Dose: Infused Acetaminophen (Ofirmev) 1,000 mg in 100 mls @ 400 mls/hr IV Q8H PRN PRN Reason: Pain Stop: 03/15/23 17:52 Insulin Aspart (Insulin Aspart Per Unit Charge) 0 units SC ACHS [facility] Stop: 04/03/23 22:01 Last Admin: 03/13/23 09:05 Dose: Not Given Insulin Human NPH (Insulin Human Nph) 40 units SC BIDM [facility] Stop: 04/06/23 16:59 Last Admin: 03/13/23 09:08 Dose: 40 units Lactobacillus Acidophilus (Advanced Probiotic 1250 Mg Capsule) 2 cap PO BID [facility] Stop: 04/03/23 20:59 Last Admin: 03/13/23 09:06 Dose: 2 cap Levothyroxine Sodium (Levothyroxine Sodium 25 Mcg Tablet) 25 mcg PO DAILYBB [facility] Stop: 04/03/23 06:29 Last Admin: 03/13/23 05:19 Dose: 25 mcg Lorazepam (Lorazepam 0.5 Mg Tab) 0.5 mg PO HS PRN PRN Reason: Anxiety with BPAP use Stop: 04/08/23 15:54 Last Admin: 03/10/23 15:44 Dose: 0.5 mg Magnesium Oxide (Magnesium Oxide 400 Mg Tab) 400 mg PO 0000,1200 [facility] Stop: 04/04/23 00:00 Last Admin: 03/12/23 23:56 Dose: 400 mg Metoprolol Tartrate (Metoprolol Tartrate 25 Mg Tab) 12.5 mg PO QAM [facility] Stop: 04/05/23 08:59 Last Admin: 03/13/23 09:05 Dose: Not Given Miscellaneous (Carbohydrates For Hypoglycemia ) 15 - 30 gm PO UD PRN PRN Reason: Hypoglycemia Protocol Stop: 04/03/23 03:37 Miscellaneous (Tacrolimus~Order Awaiting Action) 1 each N/A QS [facility] Stop: 04/03/23 07:59 Last Admin: 03/13/23 09:04 Dose: Not Given Nystatin (Nystatin Powder 15gm Btl) 1 appln EXT BID [facility] Stop: 04/03/23 08:59 Last Admin: 03/13/23 09:09 Dose: 1 appln Pantoprazole Sodium (Pantoprazole 40 Mg Tab) 40 mg PO BID [facility] Stop: 04/03/23 08:59 Last Admin: 03/10/23 21:19 Dose: Not Given Polyethylene Glycol (Polyethylene (Miralax) 17 Gm Pack) 17 gm PO DAILY [facility] Stop: 04/12/23 10:44 Tizanidine HCl (Tizanidine Hcl 4 Mg Tablet) 4 mg PO BID@0000,1200 [facility] Stop: 04/05/23 12:14 Last Admin: 03/12/23 23:58 Dose: 4 mg Warfarin Sodium (Warfarin Sod 5 Mg Tab) 5 mg PO DAILY@1600 [facility] Stop: 04/06/23 15:59 Last Admin: 03/12/23 17:46 Dose: 5 mg (1) Altered mental status Altered mental status type: somnolence Qualified Code(s): R40.0 - Somnolence
[2023-03-13] MEDS: tiZANidine HCL 4 MG TABLET PO SCH ×2 (12:04→22:15)
[2023-03-13] MEDS: POLYETHYLENE (MIRALAX) 17 GM PACK PO SCH (12:04)
[2023-03-13] MEDS: MAGNESIUM OXIDE 400 MG TAB PO SCH ×2 (12:05→22:15)
--- NOTE | 2023-03-13 12:13 | Cardiology Consultation ---
Date of Consultation March 13, 2023 Assessment & Plan (1) TORY (obstructive sleep apnea): (2) Obesity hypoventilation syndrome: (3) Chronic incomplete quadriplegia: (4) Bradycardia: Plan The patient's pauses or bradycardia I believe are multifactorial including possibility of sleep apnea and obesity hypoventilation syndrome and his quadriplegia. He has multiple sites of infection including his urinary tract and decubitus ulcers. At this point I would recommend conservative management. He would not be a good candidate to place a device in due to the above. I stopped his metoprolol. I would continue to monitor him on telemetry for now. History of Present Illness Attending Physician: Rc Juarez MD History of Present Illness This is a 62-year-old unfortunate male patient who several years ago fell striking his head against a concrete wall resulting in a cervical spine injury which is left him is a quadriplegic. He was admitted with multiple medical problems including respiratory failure possibly due to aspiration, decubitus ulcers and a urinary tract infection. His is with him during my evaluation and was very helpful in supplying some history. He has no previous cardiac disease. He is a diabetic with a history of obesity. He is doing markedly better since admission. During my evaluation he is alert and oriented. He has had no symptoms of dizziness, lightheadedness or unresponsiveness. On the media monitor he seems to be having occasional bradycardic events which may be Wenckebach but he did have 1 event this morning where he had a 4-second pause which appeared to be due to high-grade heart block. Following that event he has maintained a sinus mechanism. It is uncertain at that time whether he was sl eeping or on his BiPAP. Allergies Allergy/AdvReac Type Severity Reaction Status Date / Time codeine Allergy Severe THROAT Verified 02/23/23 14:12 SWELLS latex Allergy Intermediate Hives Verified 02/23/23 14:12 piperacillin Allergy Intermediate Hives Verified 02/23/23 14:12 Sulfa (Sulfonamide Allergy Intermediate HIVES Verified 02/23/23 14:12 Antibiotics) tazobactam Allergy Intermediate Hives Verified 02/23/23 14:12 aztreonam Allergy Unknown unknown Verified 02/23/23 14:12 metoclopramide [From Reglan] AdvReac Intermediate lethargy Verified 02/23/23 14:12 Home Medications Medication Instructions Recorded Confirmed Type allopurinol 100 mg tablet 100 mg PO BID 05/07/18 03/03/23 History magnesium oxide 400 mg (241.3 mg 400 mg PO AMHS 05/07/18 03/03/23 History magnesium) tablet pantoprazole 40 mg tablet,delayed 40 mg PO BID 05/07/18 03/03/23 History release ropinirole 1 mg tablet 1 mg PO QID 05/07/18 03/03/23 History escitalopram oxalate 20 mg tablet 20 mg PO QAM 08/21/19 03/03/23 History insulin human U-100 NPH-regulr 64 unit subcut BIDM 08/21/19 03/03/23 History 70-30 mix 100 unit/mL subcutaneous susp (Novolin 70/30 U-100 Insulin) warfarin 5 mg tablet 5 mg PO 4XWK 08/21/19 03/03/23 History baclofen 10 mg tablet See Rx Instructions .Route .COMPLEX 09/22/19 03/03/23 History cyclobenzaprine 10 mg tablet 15 mg PO HS 03/01/20 03/03/23 History hyoscyamine sulfate 0.125 mg tablet 0.125 mg PO QPM 03/01/20 03/03/23 History potassium chloride 10 mEq 10 meq PO BIDM 03/01/20 03/03/23 History tablet,extended release tizanidine 4 mg tablet 4 mg PO BID 03/01/20 03/03/23 History Medical Marijuana 6 drp PO PM 03/26/20 03/03/23 History methenamine hippurate 1 gram tablet 1 g PO BID 30 days #60 tabs 04/02/20 03/03/23 Rx ascorbic acid (vitamin C) 500 mg 250 mg PO TID 12/03/20 03/03/23 History tablet (Vitamin C) famotidine 20 mg tablet (Acid 20 mg PO BID 12/03/20 03/03/23 History Boat Painter (famotidine)) Lactobacillus acidoph-L.bulgaricus 1 tab PO BID 01/03/21 03/03/23 History 1 million cell tablet (Floranex) insulin regular human 100 unit/mL See Rx Instructions .Route .COMPLEX 01/03/21 03/03/23 History injection solution (Novolin R Regular U-100 Insulin) menthol 0.44 %-zinc oxide 20.6 % 1 applic topical QID PRN Rash 01/03/21 03/03/23 History topical ointment (Calmoseptine) nystatin 100,000 unit/gram topical 1 applic topical BID 01/03/21 03/03/23 History powder metformin 1,000 mg tablet 1,000 mg PO BIDM 06/14/21 03/03/23 History atorvastatin 40 mg tablet 40 mg PO HS 12/31/21 03/03/23 History docusate sodium 100 mg capsule 100 mg PO AMHS 12/31/21 03/03/23 History levothyroxine 25 mcg tablet 25 mcg PO DAILYBB 02/12/22 03/03/23 History ketoconazole 2 % shampoo 1 applic topical 2XWK 05/22/22 03/03/23 History nystatin-triamcinolone 100,000 1 applic topical BID PRN Rash 05/22/22 03/03/23 History unit/g-0.1 % topical cream spironolactone 25 mg tablet 25 mg PO QAM 05/22/22 03/03/23 History tacrolimus 0.1 % topical ointment 1 applic topical BID 05/22/22 03/03/23 History furosemide 40 mg tablet 40 mg PO BID17 02/09/23 03/03/23 History gabapentin 600 mg tablet 600 mg PO BID 02/09/23 03/03/23 History warfarin 7.5 mg tablet 7.5 mg PO 3XWK 02/09/23 03/03/23 History cefepime 2 gram solution for 2 g IV Q8H #35 ea 02/19/23 03/03/23 Rx injection metoprolol tartrate 25 mg tablet 12.5 mg PO QAM #15 tabs 02/19/23 03/03/23 Rx levetiracetam 750 mg tablet 750 mg PO BID #60 tabs 02/26/23 03/03/23 Rx (Keppra) cefdinir 300 mg capsule 300 mg PO UD 03/03/23 03/03/23 History Patient History Medical History Anemia Asymptomatic bacteriuria Clostridium difficile infection (Unknown) CVA (cerebral vascular accident) DM type 2 (diabetes mellitus, type 2) Dyslipidemia Dysphagia Elevated lactic acid level Fever History of blood clots History of DVT (deep vein thrombosis) Hypertension Hypotension Ileus Kidney disease Lethargy Leukocytosis Major depressive disorder, recurrent Morbid obesity Obesity Occluded PICC line Positive urine culture Quadriplegia BRAIN INJURY 11 YRS AGO Quadriplegia Sacral decubitus ulcer, stage IV Sacral wound Seizure Seizure-like activity Sepsis SIRS (systemic inflammatory response syndrome) Sleep apnea (Unknown) OXYGEN 2L/MIN NC HS Syncope 57 year old with know quadriplegia and new onset syncope with change in position UTI (urinary tract infection) RECENT [facility] ADMISION-D/C 12/06/20 Weakness Surgical History Chronic suprapubic catheter History of colonoscopy 2010 History of open reduction and internal fixation (ORIF) procedure LEFT FEMUR Insertion of inferior vena caval filter (Unknown) Lithotripsy (Unknown) "laser lithotripsy left ureteral stone 03/17/11 " S/P debridement (09/06/21) Incision and Drainage and Debridement Sacral Tissue Down to Bone, 15cm x 11cm - Agusto Chaudhry DO 09/06/21 S/P debridement (09/08/21) Excisional Debridement of Sacral Decubitus Ulcer, 40h42tr Down to Bone - Agusto Chaudhry DO 09/08/2021. Patient made ASA 4. Ketamine/versed/fentanyl sedation. Tolerated without incident. S/P debridement S/P debridement (02/11/23) Debridement of sacral ulcer. Dr. Srivastava S/P knee surgery S/P tonsillectomy Suprapubic cystostomy (Unknown) IN PLACE Family History Mother , age 47 of cervical cancer Family history of diabetes mellitus Cervical cancer Father , age 85 of heart disease Family hx of colon cancer Heart disease Other No pertinent family history Social History Smoking Status: Never smoker Second Hand Exposure: No; Do You Dip or Chew Tobacco: No; Tobacco Cessation Education Requested by Patient: No Hx Alcohol Use: No Hx Substance Use: No Preferred Language: Kazakh Communication Ability: Effective Visual Impairment: No Limitations Telemarketing Fundraiser Required: No Beliefs That Will Affect Care: Pentecostal Pentec[employer]al Beliefs: Advent marital status: Current Living Situation: Spouse Current Living Situation Comment: At home with . 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 All other 10 point review of systems are negative. Physical Exam Physical Exam: General: no acute distress morbidly obese Head: normocephalic, no masses, lesions, tenderness or abnormalities Eyes: conjunctiva are pink and non-injected, sclera clear Neck: supple, no adenopathy, no bruits, normal jugular venous pulse, no hepatojugular reflux Chest: normal shape and normal respiratory effort Lungs: clear to auscultation and percussion Cardiac Exam: - regular rate & rhythm, no murmurs gallops or rubs - normal S1, normal S2 Pulses: 2(+) throughout Abdomen: abdomen soft, non-tender, no abnormal masses and no hepatosplenomegaly Musculoskeletal: no gait disturbance, no joint inflammation, no deforming arthritis Extremities: no edema and no cyanosis Neuro: Alert and oriented Results & Data Vital Signs (Past 12 Hours) Vital Signs Temp Pulse Pulse Pulse Resp BP Pulse Ox 03/13/23 09:30 03/13/23 07:35 36.5 C 78 16 124/68 97 03/13/23 08:26 80 20 127/65 97 03/13/23 08:00 63 03/13/23 06:06 35.8 C L 03/13/23 03:12 35.6 C L 62 106/58 L 93 03/13/23 02:15 62 24 97 O2 Del Method O2 Flow Rate FiO2 03/13/23 09:30 Nasal Cannula 4 03/13/23 07:35 Nasal Cannula 4 03/13/23 08:26 Nasal Cannula 4 03/13/23 08:00 03/13/23 06:06 03/13/23 03:12 BiPAP 30 03/13/23 02:15 30 Laboratory Results Laboratory Results - last 24 hr 03/12/23 03/12/23 03/12/23 13:42 16:30 20:06 Sodium Potassium Chloride Carbon Dioxide Anion Gap BUN Creatinine Est Cr Clr Drug Dosing Est GFR ( Amer) Est GFR (Non-Af Amer) BUN/Creatinine Ratio Glucose POC Glucose 186 H 215 H 170 H Calcium 03/13/23 03/13/23 03/13/23 05:17 08:01 11:44 Sodium 144 Potassium 4.5 Chloride 107 Carbon Dioxide 29 Anion Gap 8 BUN 117 H Creatinine 4.19 H Est Cr Clr Drug Dosing 26.9 Est GFR ( Amer) 16.4 Est GFR (Non-Af Amer) 14.1 BUN/Creatinine Ratio 27.9 H Glucose 70 POC Glucose 77 143 H Calcium 8.6 Medications Administered Current Inpatient Medications Acetaminophen (Acetaminophen 325 Mg Tab) 650 mg PO Q4H PRN PRN Reason: Pain or Fever Stop: 04/03/23 03:36 Last Admin: 03/12/23 13:30 Dose: 650 mg Allopurinol (Allopurinol 100 Mg Tab) 100 mg PO BID [facility] Stop: 04/03/23 08:59 Last Admin: 03/13/23 09:06 Dose: 100 mg Atorvastatin Calcium (Atorvastatin 40 Mg Tab) 40 mg PO HS [facility] Stop: 04/03/23 20:59 Last Admin: 03/12/23 20:46 Dose: 40 mg Baclofen (Baclofen 10 Mg Tab) 10 mg PO DAILY@0000 [facility] Stop: 04/04/23 00:00 Last Admin: 03/12/23 23:57 Dose: 10 mg Baclofen (Baclofen 10 Mg Tab) 5 mg PO DAILY@0600,1200,1800 [facility] Stop: 04/03/23 17:59 Last Admin: 03/13/23 12:04 Dose: 5 mg Dextrose (Dextrose 50% 50 Ml Syringe) 25 - 50 ml IV UD PRN; Protocol PRN Reason: Hypoglycemia Protocol Stop: 04/03/23 03:37 Docusate Sodium (Docusate Sodium 100 Mg Cap) 100 mg PO AMHS [facility] Stop: 04/03/23 08:59 Last Admin: 03/13/23 09:07 Dose: 100 mg Escitalopram Oxalate (Escitalopram Oxalate 20 Mg Tab) 20 mg PO QAM [facility] Stop: 04/03/23 08:59 Last Admin: 03/10/23 08:08 Dose: 20 mg Famotidine (Famotidine 20 Mg Tab) 20 mg PO BID [facility] Stop: 04/03/23 08:59 Last Admin: 03/13/23 09:07 Dose: 20 mg Glucagon (Glucagon For Inj 1 Mg Vial) 1 mg SQ UD PRN; Protocol PRN Reason: Hypoglycemia Protocol Stop: 04/03/23 03:37 Glucose (Glucose 10 Tab/Tube) 4 - 8 tab PO UD PRN; Protocol PRN Reason: Hypoglycemia Treatment Stop: 04/03/23 03:37 Glucose (Glucose 40% Gel 15 Gm Tube) 15 - 30 gm PO UD PRN; Protocol PRN Reason: Hypoglycemia Protocol Stop: 04/03/23 03:37 Levetiracetam 750 mg/ Sodium (Chloride) 107.5 mls @ 420 mls/hr IV BID [facility] Stop: 04/03/23 20:59 Last Infusion: 03/13/23 10:30 Dose: Infused Pantoprazole Sodium 40 mg/ (Syringe) 10 mls @ 5 mls/min IV BID [facility] Stop: 04/09/23 21:44 Last Admin: 03/13/23 09:12 Dose: 5 mls/min Heparin Sodium/Dextrose (Heparin Sodium/Dextrose) 25,000 units in 500 mls @ 0 mls/hr IV .Q0M [facility]; Protocol Stop: 04/10/23 00:14 Last Titration: 03/12/23 03:43 Dose: Infused Ceftazidime 2,000 mg/ Dextrose 60 mls @ 120 mls/hr IV DAILY@0600 [facility]; Protocol Stop: 04/15/23 05:59 Last Infusion: 03/13/23 06:07 Dose: Infused Acetaminophen (Ofirmev) 1,000 mg in 100 mls @ 400 mls/hr IV Q8H PRN PRN Reason: Pain Stop: 03/15/23 17:52 Insulin Aspart (Insulin Aspart Per Unit Charge) 0 units SC ACHS [facility] Stop: 04/03/23 22:01 Last Admin: 03/13/23 09:05 Dose: Not Given Insulin Human NPH (Insulin Human Nph) 40 units SC BIDM [facility] Stop: 04/06/23 16:59 Last Admin: 03/13/23 09:08 Dose: 40 units Lactobacillus Acidophilus (Advanced Probiotic 1250 Mg Capsule) 2 cap PO BID [facility] Stop: 04/03/23 20:59 Last Admin: 03/13/23 09:06 Dose: 2 cap Levothyroxine Sodium (Levothyroxine Sodium 25 Mcg Tablet) 25 mcg PO DAILYBB [facility] Stop: 04/03/23 06:29 Last Admin: 03/13/23 05:19 Dose: 25 mcg Lorazepam (Lorazepam 0.5 Mg Tab) 0.5 mg PO HS PRN PRN Reason: Anxiety with BPAP use Stop: 04/08/23 15:54 Last Admin: 03/10/23 15:44 Dose: 0.5 mg Magnesium Oxide (Magnesium Oxide 400 Mg Tab) 400 mg PO 0000,1200 [facility] Stop: 04/04/23 00:00 Last Admin: 03/13/23 12:05 Dose: 400 mg Miscellaneous (Carbohydrates For Hypoglycemia ) 15 - 30 gm PO UD PRN PRN Reason: Hypoglycemia Protocol Stop: 04/03/23 03:37 Miscellaneous (Tacrolimus~Order Awaiting Action) 1 each N/A QS [facility] Stop: 04/03/23 07:59 Last Admin: 03/13/23 09:04 Dose: Not Given Nystatin (Nystatin Powder 15gm Btl) 1 appln EXT BID [facility] Stop: 04/03/23 08:59 Last Admin: 03/13/23 09:09 Dose: 1 appln Pantoprazole Sodium (Pantoprazole 40 Mg Tab) 40 mg PO BID [facility] Stop: 04/03/23 08:59 Last Admin: 03/10/23 21:19 Dose: Not Given Polyethylene Glycol (Polyethylene (Miralax) 17 Gm Pack) 17 gm PO DAILY [facility] Stop: 04/12/23 10:44 Last Admin: 03/13/23 12:04 Dose: 17 gm Tizanidine HCl (Tizanidine Hcl 4 Mg Tablet) 4 mg PO BID@0000,1200 [facility] Stop: 04/05/23 12:14 Last Admin: 03/13/23 12:04 Dose: 4 mg Warfarin Sodium (Warfarin Sod 5 Mg Tab) 5 mg PO DAILY@1600 [facility] Stop: 04/06/23 15:59 Last Admin: 03/12/23 17:46 Dose: 5 mg
[2023-03-13] MEDS: WARFARIN SOD 5 MG TAB PO SCH (17:12)
[2023-03-13] MEDS: ATORVASTATIN 40 MG TAB PO SCH (20:54)
[2023-03-14] MEDS: LEVOTHYROXINE SODIUM 25 MCG TABLET PO SCH (06:06)
[2023-03-14] MEDS: BACLOFEN 10 MG TAB PO SCH ×4 (06:06→23:42)
--- NOTE | 2023-03-14 06:56 | Electrocardiogram Report ---
Test Reason : Blood Pressure : / mmHG Vent. Rate : 084 BPM Atrial Rate : 084 BPM P-R Int : 180 ms QRS Dur : 130 ms QT Int : 440 ms P-R-T Axes : 039 -01 -11 degrees QTc Int : 519 ms Normal sinus rhythm Non-specific intra-ventricular conduction delay Poor R wave progression, consider anterior ID vs. lead placement vs. LVH Abnormal ECG When compared with ECG of 12-MAR-2023 15:24, No significant change was found Confirmed by Dillan Irene ([id number]) on 03/14/2023 6:55:47 AM Referred By: REFERRED SELF Confirmed By:Monroe Irene
[2023-03-14] MEDS: allopurinoL 100 MG TAB PO SCH ×2 (07:48→19:56)
[2023-03-14] MEDS: FAMOTIDINE 20 MG TAB PO SCH ×2 (07:48→19:54)
[2023-03-14] MEDS: DOCUSATE SODIUM 100 MG CAP PO SCH ×2 (07:49→19:55)
[2023-03-14] MEDS: NYSTATIN POWDER 15GM BTL EXT SCH ×2 (07:49→19:53)
[2023-03-14] MEDS: ADVANCED PROBIOTIC 1250 MG CAPSULE PO SCH ×2 (07:49→19:55)
[2023-03-14] MEDS: PANTOprazole 40 MG in SYRINGE 0 ML IV SCH ×2 (07:55→19:57)
[2023-03-14] MEDS: levETIRAcetam 750 MG in 0.9 % SODIUM CHLORIDE 100 ML IV SCH ×2 (07:55→19:57)
[2023-03-14] MEDS: POLYETHYLENE (MIRALAX) 17 GM PACK PO SCH (08:01)
[2023-03-14] MEDS: INSULIN ASPART PER UNIT CHARGE SC SCH ×4 (08:27→20:14)
[2023-03-14 08:28] LABS: INR 2.2 (0.9-1.1); Prothrombin Time 22.8 Seconds (9.0-12.0)
[2023-03-14] MEDS: INSULIN HUMAN NPH SC SCH ×2 (08:28→16:56)
[2023-03-14 08:43] LABS: Basophils # (auto) 0.05 K/uL (0-0.2); Basophils % (auto) 0.5 %; Eosinophils # (auto) 0.34 K/uL (0-0.50); Eosinophils % (auto) 3.3 %; Hematocrit (blood only) 28.9 % (42.0-52.0); Hemoglobin 9.1 g/dl (14.0-18.0); Immature Granulocytes # (auto) 0.06 K/uL (0.01-0.20); Immature Granulocytes % (auto) 0.6 %; Lymphocytes # (auto) 1.32 K/uL (1.2-3.4); Lymphocytes % (auto) 12.9 %; Mean Corpuscular Hgb Conc 31.5 g/dL (32.0-36.0); Mean Platelet Volume 10.1 fL (9.4-12.4); Monocytes # (auto) 0.65 K/uL (0.11-0.59); Monocytes % (auto) 6.3 %; Neutrophils # (auto) 7.82 K/uL (1.40-6.50); Neutrophils % (auto) 76.4 %; Platelet Count 169 K/uL (130-400); RDW Coefficient of Variation 18.2 % (11.5-14.5); RDW Standard Deviation 61.7 fL (36.4-46.3); Red Blood Count 3.14 M/uL (4.70-6.10); White Blood Count 10.24 K/ul (4.8-10.8)
[2023-03-14 08:47] LABS: BUN Creatinine Ratio 29.5 (10-20); Calcium 8.8 mg/dl (8.6-10.3); Creatinine Clr Calc Pharmacy 26.8 ml/min; Est GFR (African American) 16.3 ml/min; Est GFR (Non-African American) 14.1 ml/min; Potassium 4.6 mmol/L (3.5-5.1)
--- NOTE | 2023-03-14 08:58 | Pulmonology Progress Note ---
Date of Service March 14, 2023 Assessment & Plan (1) Hypercapnic respiratory failure: (2) Altered mental status: Altered mental status type: somnolence Qualified Code(s): R40.0 - Somnolence (3) Obesity hypoventilation syndrome: (4) TORY (obstructive sleep apnea): Plan IMPRESSION: 62-year-old incomplete quadriplegic male with recurrent pneumonia and concerns for obesity hypoventilation syndrome and obstructive sleep apnea who is requiring increasing oxygen levels and change in mental status likely stemming from poor use of BiPAP. Pulmonary medicine reconsulted at this time given change in status. --Acute hypercapnic hypoxic respiratory failure Hypercapnia is likely secondary to noncompliance with BiPAP/CPAP along with multiple respiratory depressant medication Continue with BiPAP nightly and as needed shortness of breath O2 saturation between 88-92% -- Obstructive sleep apnea/OHS Was not able to tolerate BiPAP in the past but has been using it while here in the hospital and is willing to use it even at home --Morbid obesity Advised to lose with diet and exercise --DNI Plan: In/out: - 1.3 L, urine urine output 1876 Continue with BiPAP nightly, as needed shortness of breath and while patient is napping Case management working on getting the patient trilogy machine. Continue with diuresis Case discussed with Dr. Juarez No further recommendation from pulmonary perspective, will sign off, please call directly with any questions Please note the above document was generated using voice recognition software. It may contain grammatical, syntax or spelling errors.Any formal questions or concerns about the content, text or information contained within the body of this dictation should be directly addressed to the provider for clarification. Admission and Anticipated Discharge Date Admission Date: March 04, 2023 Subjective Patient seen and examined at bedside. No acute distress, no adverse events overnight More alert today. Answering all questions appropriately Denies any abdominal pain, no headache, no nausea, no event during Shortness of breath is improved Did use his BiPAP overnight. Fair appetite Review of Systems Review of Systems: All systems reviewed & are unremarkable except as noted in Subjective Physical Exam Physical Exam: Constitutional: No respiratory distress HEENT: EOMI, PERRLA Respiratory system: Decreased air entry bilaterally, no wheeze, no rhonchi, positive crackles bilateral lower lobes CVS: S1-S2 positive, no murmurs or gallops, distant heart sounds Abdomen: Soft, nontender, nondistended, positive bowel sounds x4, obese, positive left-sided colostomy Extremities: +2 pulses bilaterally radialis/ dorsalis pedis, no cyanosis, +1 pitting edema bilateral lower extremity Neuro: Awake, alert, oriented to self and place Psych: Normal mood and affect G/U: Positive [place] Skin: no rashes, warm and dry Lymphatic: no cervical or axillary lymphadenopathy Results & Data Results & Data Vital Signs (Past 12 Hours) Vital Signs Temp Pulse Pulse Pulse Resp BP Pulse Ox 03/14/23 07:00 98 H 03/14/23 07:09 36.6 C 89 20 161/84 H 94 03/14/23 02:53 36.4 C L 78 18 127/76 96 03/14/23 02:47 26 H 03/13/23 22:22 85 03/13/23 22:00 36.4 C L 78 18 176/74 H 96 03/13/23 21:30 03/13/23 22:29 60 26 H 95 O2 Del Method O2 Flow Rate FiO2 03/14/23 07:00 03/14/23 07:09 Oxymask 4 03/14/23 02:53 BiPAP 03/14/23 02:47 30 03/13/23 22:22 03/13/23 22:00 Nasal Cannula 2.5 03/13/23 21:30 Nasal Cannula 4 03/13/23 22:29 30 Laboratory Results 03/14/23 00:00 03/14/23 00:00 PG Care Time/CCT Total # of Minutes Spent Total Time Spent with Patient: Total time spent is greater than 50% in coordination of care (as documented) at patient's floor/unit and/or counseling patient: Coding Level of Care Code 84889 SUB INP/OBS CARE 2/35MIN Diagnoses Hypercapnic respiratory failure J96.92 Altered mental status R40.0 Altered mental status type: somnolence Obesity hypoventilation syndrome E66.2 TORY (obstructive sleep apnea) G47.33
--- NOTE | 2023-03-14 11:02 | Cardiology Progress Note ---
Date of Service March 14, 2023 Assessment & Plan (1) TORY (obstructive sleep apnea): (2) Obesity hypoventilation syndrome: (3) Chronic incomplete quadriplegia: (4) Bradycardia: Plan Reviewed the patient's telemetry. He has had no significant bradycardic events since yesterday morning. At this point I would continue to hold his metoprolol. At this time cardiology has nothing further to add. Admission and Anticipated Discharge Date Admission Date: March 04, 2023 Subjective The patient had an uneventful night. Review of Systems Review of Systems: Review of Systems: See HPI for pertinent positives. All other 10 point review of systems are negative. Physical Exam Physical Exam: General: no acute distress morbidly obese Head: normocephalic, no masses, lesions, tenderness or abnormalities Eyes: conjunctiva are pink and non-injected, sclera clear Neck: supple, no adenopathy, no bruits, normal jugular venous pulse, no hepatojugular reflux Chest: normal shape and normal respiratory effort Lungs: clear to auscultation and percussion Cardiac Exam: - regular rate & rhythm, no murmurs gallops or rubs - normal S1, normal S2 Pulses: 2(+) throughout Abdomen: abdomen soft, non-tender, no abnormal masses and no hepatosplenomegaly Musculoskeletal: no gait disturbance, no joint inflammation, no deforming arthritis Extremities: no edema and no cyanosis Neuro: Alert and oriented Results & Data Vital Signs (Past 12 Hours) Vital Signs Temp Pulse Pulse Pulse Resp BP Pulse Ox 03/14/23 09:44 03/14/23 09:42 75 24 93 03/14/23 07:00 98 H 03/14/23 07:09 36.6 C 89 20 161/84 H 94 03/14/23 02:53 36.4 C L 78 18 127/76 96 03/14/23 02:47 26 H O2 Del Method O2 Flow Rate FiO2 03/14/23 09:44 Nasal Cannula 4 03/14/23 09:42 30 03/14/23 07:00 03/14/23 07:09 Oxymask 4 03/14/23 02:53 BiPAP 03/14/23 02:47 30 Laboratory Results Laboratory Results - last 24 hr 03/13/23 03/13/23 03/13/23 11:44 16:36 20:22 WBC RBC Hgb Hct MCV MCH MCHC RDW Std Deviation RDW Coeff of Yoseph Plt Count MPV Immature Gran % (Auto) Neut % (Auto) Lymph % (Auto) [place] % (Auto) Eos % (Auto) Baso % (Auto) Neut # (Auto) Lymph # (Auto) [place] # (Auto) Eos # (Auto) Baso # (Auto) Immature Gran # (Auto) PT INR Sodium Potassium Chloride Carbon Dioxide Anion Gap BUN Creatinine Est Cr Clr Drug Dosing Est GFR ( Amer) Est GFR (Non-Af Amer) BUN/Creatinine Ratio Glucose POC Glucose 143 H 162 H 174 H Calcium 03/14/23 03/14/23 03/14/23 00:00 00:00 07:21 WBC 10.24 RBC 3.14 L Hgb 9.1 L Hct 28.9 L MCV 92.0 MCH 29.0 MCHC 31.5 L RDW Std Deviation 61.7 H RDW Coeff of Yoseph 18.2 H Plt Count 169 MPV 10.1 Immature Gran % (Auto) 0.6 Neut % (Auto) 76.4 Lymph % (Auto) 12.9 [place] % (Auto) 6.3 Eos % (Auto) 3.3 Baso % (Auto) 0.5 Neut # (Auto) 7.82 H Lymph # (Auto) 1.32 [place] # (Auto) 0.65 H Eos # (Auto) 0.34 Baso # (Auto) 0.05 Immature Gran # (Auto) 0.06 PT 22.8 H INR 2.2 H Sodium 142 Potassium 4.6 Chloride 106 Carbon Dioxide 28 Anion Gap 8 BUN 124 H Creatinine 4.20 H Est Cr Clr Drug Dosing 26.8 Est GFR ( Amer) 16.3 Est GFR (Non-Af Amer) 14.1 BUN/Creatinine Ratio 29.5 H Glucose 89 POC Glucose Calcium 8.8 03/14/23 07:41 WBC RBC Hgb Hct MCV MCH MCHC RDW Std Deviation RDW Coeff of Yoseph Plt Count MPV Immature Gran % (Auto) Neut % (Auto) Lymph % (Auto) [place] % (Auto) Eos % (Auto) Baso % (Auto) Neut # (Auto) Lymph # (Auto) [place] # (Auto) Eos # (Auto) Baso # (Auto) Immature Gran # (Auto) PT INR Sodium Potassium Chloride Carbon Dioxide Anion Gap BUN Creatinine Est Cr Clr Drug Dosing Est GFR ( Amer) Est GFR (Non-Af Amer) BUN/Creatinine Ratio Glucose POC Glucose 101 H Calcium Medications Administered Current Inpatient Medications Acetaminophen (Acetaminophen 325 Mg Tab) 650 mg PO Q4H PRN PRN Reason: Pain or Fever Stop: 04/03/23 03:36 Last Admin: 03/12/23 13:30 Dose: 650 mg Allopurinol (Allopurinol 100 Mg Tab) 100 mg PO BID [facility] Stop: 04/03/23 08:59 Last Admin: 03/14/23 07:48 Dose: 100 mg Atorvastatin Calcium (Atorvastatin 40 Mg Tab) 40 mg PO HS [facility] Stop: 04/03/23 20:59 Last Admin: 03/13/23 20:54 Dose: 40 mg Baclofen (Baclofen 10 Mg Tab) 10 mg PO DAILY@0000 [facility] Stop: 04/04/23 00:00 Last Admin: 03/13/23 22:15 Dose: 10 mg Baclofen (Baclofen 10 Mg Tab) 5 mg PO DAILY@0600,1200,1800 [facility] Stop: 04/03/23 17:59 Last Admin: 03/14/23 06:06 Dose: 5 mg Dextrose (Dextrose 50% 50 Ml Syringe) 25 - 50 ml IV UD PRN; Protocol PRN Reason: Hypoglycemia Protocol Stop: 04/03/23 03:37 Docusate Sodium (Docusate Sodium 100 Mg Cap) 100 mg PO AMHS [facility] Stop: 04/03/23 08:59 Last Admin: 03/14/23 07:49 Dose: 100 mg Escitalopram Oxalate (Escitalopram Oxalate 20 Mg Tab) 20 mg PO QAM [facility] Stop: 04/03/23 08:59 Last Admin: 03/10/23 08:08 Dose: 20 mg Famotidine (Famotidine 20 Mg Tab) 20 mg PO BID [facility] Stop: 04/03/23 08:59 Last Admin: 03/14/23 07:48 Dose: 20 mg Glucagon (Glucagon For Inj 1 Mg Vial) 1 mg SQ UD PRN; Protocol PRN Reason: Hypoglycemia Protocol Stop: 04/03/23 03:37 Glucose (Glucose 10 Tab/Tube) 4 - 8 tab PO UD PRN; Protocol PRN Reason: Hypoglycemia Treatment Stop: 04/03/23 03:37 Glucose (Glucose 40% Gel 15 Gm Tube) 15 - 30 gm PO UD PRN; Protocol PRN Reason: Hypoglycemia Protocol Stop: 04/03/23 03:37 Levetiracetam 750 mg/ Sodium (Chloride) 107.5 mls @ 420 mls/hr IV BID [facility] Stop: 04/03/23 20:59 Last Infusion: 03/14/23 08:59 Dose: Infused Pantoprazole Sodium 40 mg/ (Syringe) 10 mls @ 5 mls/min IV BID [facility] Stop: 04/09/23 21:44 Last Admin: 03/14/23 07:55 Dose: 5 mls/min Heparin Sodium/Dextrose (Heparin Sodium/Dextrose) 25,000 units in 500 mls @ 0 mls/hr IV .Q0M [facility]; Protocol Stop: 04/10/23 00:14 Last Titration: 03/12/23 03:43 Dose: Infused Ceftazidime 2,000 mg/ Dextrose 60 mls @ 120 mls/hr IV DAILY@0600 [facility]; Protocol Stop: 04/15/23 05:59 Last Infusion: 03/14/23 06:38 Dose: Infused Acetaminophen (Ofirmev) 1,000 mg in 100 mls @ 400 mls/hr IV Q8H PRN PRN Reason: Pain Stop: 03/15/23 17:52 Insulin Aspart (Insulin Aspart Per Unit Charge) 0 units SC ACHS [facility] Stop: 04/03/23 22:01 Last Admin: 03/14/23 08:27 Dose: Not Given Insulin Human NPH (Insulin Human Nph) 40 units SC BIDM [facility] Stop: 04/06/23 16:59 Last Admin: 03/14/23 08:28 Dose: 40 units Lactobacillus Acidophilus (Advanced Probiotic 1250 Mg Capsule) 2 cap PO BID [facility] Stop: 04/03/23 20:59 Last Admin: 03/14/23 07:49 Dose: 2 cap Levothyroxine Sodium (Levothyroxine Sodium 25 Mcg Tablet) 25 mcg PO DAILYBB [facility] Stop: 04/03/23 06:29 Last Admin: 03/14/23 06:06 Dose: 25 mcg Lorazepam (Lorazepam 0.5 Mg Tab) 0.5 mg PO HS PRN PRN Reason: Anxiety with BPAP use Stop: 04/08/23 15:54 Last Admin: 03/10/23 15:44 Dose: 0.5 mg Magnesium Oxide (Magnesium Oxide 400 Mg Tab) 400 mg PO 0000,1200 [facility] Stop: 04/04/23 00:00 Last Admin: 03/13/23 22:15 Dose: 400 mg Miscellaneous (Carbohydrates For Hypoglycemia ) 15 - 30 gm PO UD PRN PRN Reason: Hypoglycemia Protocol Stop: 04/03/23 03:37 Miscellaneous (Tacrolimus~Order Awaiting Action) 1 each N/A QS [facility] Stop: 04/03/23 07:59 Last Admin: 03/14/23 07:50 Dose: Not Given Nystatin (Nystatin Powder 15gm Btl) 1 appln EXT BID [facility] Stop: 04/03/23 08:59 Last Admin: 03/14/23 07:49 Dose: 1 appln Pantoprazole Sodium (Pantoprazole 40 Mg Tab) 40 mg PO BID [facility] Stop: 04/03/23 08:59 Last Admin: 03/10/23 21:19 Dose: Not Given Polyethylene Glycol (Polyethylene (Miralax) 17 Gm Pack) 17 gm PO DAILY [facility] Stop: 04/12/23 10:44 Last Admin: 03/14/23 08:01 Dose: 17 gm Tizanidine HCl (Tizanidine Hcl 4 Mg Tablet) 4 mg PO BID@0000,1200 [facility] Stop: 04/05/23 12:14 Last Admin: 03/13/23 22:15 Dose: 4 mg Warfarin Sodium (Warfarin Sod 5 Mg Tab) 5 mg PO DAILY@1600 [facility] Stop: 04/06/23 15:59 Last Admin: 03/13/23 17:12 Dose: 5 mg
--- NOTE | 2023-03-14 11:06 | Nephrology Progress Note ---
Date of Service March 14, 2023 Assessment & Plan (1) ROBERT (acute kidney injury): Plan: Stage 3 nonoliguric ROBERT from ischemic ATN in the setting of sepsis, acute respiratory failure. Baseline creatinine is one. Presenting creatinine 03/03 PM 2.6, with plateau for several days at 3.6 on 03/08 until he needed lasix for worsening dypsnea/respiratory failure - This has now stablized. -suspect cephalosporin associated AIN versus ischemic ATN after presenting w/ altered MS on OP lasix, spironolactone >avoid standing diuretic dose but can redose PRN if needed >> he is autodiuresing nicely >>STRICT I/O >continue pulmonary care/ f/u their recs > he is unfortunately showing only moderate improvement with bipap given his multifocal respiratory failure -Monitor input output and daily BMP. Increased urine output is reassuring and creatinine is expected to start downtrending if no further clinical setbacks -no indication for discussion of dialysis but cannot rule out need Admission and Anticipated Discharge Date Admission Date: March 04, 2023 Subjective The patient had an uneventful night. Comfortable Good UOP Review of Systems Review of Systems: All systems reviewed & are unremarkable except as noted in HPI & below Physical Exam Physical Exam: Constitutional: No respiratory distress HEENT: EOMI, PERRLA Respiratory system:Decreased air entry bilaterally CVS: S1-S2 positive, no murmurs or gallops, distant heart sounds Abdomen: Soft, nontender, nondistended, positive bowel sounds x4,obese, positive left-sided colostomy Extremities: +2 pulses bilaterally radialis/ dorsalis pedis, no cyanosis,+1 pitting edema bilateral lower extremity Neuro: oriented to self and place Results & Data Vital Signs (Past 12 Hours) Vital Signs Temp Pulse Pulse Pulse Resp BP Pulse Ox 03/14/23 09:44 03/14/23 09:42 75 24 93 03/14/23 07:00 98 H 03/14/23 07:09 36.6 C 89 20 161/84 H 94 03/14/23 02:53 36.4 C L 78 18 127/76 96 03/14/23 02:47 26 H O2 Del Method O2 Flow Rate FiO2 03/14/23 09:44 Nasal Cannula 4 03/14/23 09:42 30 03/14/23 07:00 03/14/23 07:09 Oxymask 4 03/14/23 02:53 BiPAP 03/14/23 02:47 30 Laboratory Results 03/14/23 00:00 03/14/23 00:00
--- NOTE | 2023-03-14 11:33 | Hospitalist Progress Note ---
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 In the ED, he was found to be in hypercapnic resp failure, also in ROBERT over CKD III. He is being managed for the following: Sinus pauses Noted to have up to 4-second pause and monitor Did not have any symptoms EKG this morning looks okay Cardiology consulted-appreciate input and recommendation Beta-demario has been on hold Acute hypercapnic respiratory failure: Patient noted to be lethargic at presentation, CO2 of 61 in ABG at presentation. Likely secondary to underlying OHS. Admitting CT Head with no acute findings. Admitting CT chest with partial collapse of left lower lobe with underlying in fection not excluded. Pulmonology consulted, recommend BPAP 15/10 w/ O2 on DC, sleep study as OP. Patient was put on BiPAP, was alert and back to baseline at bedside exam on the first day of exam. Condition got worse since this morning with more shortness of breath and somnolence Chest x-ray did show increasing congestion and received 80 mg of IV Lasix in the afternoon after discussion with the technical consultant Appreciate snow maker evaluation and recommendation Has been using BiPAP as tolerated and the condition is getting a little better CODE STATUS has been changed to conditional Remains hypercarbic with pH of 7.27 and PCO2 of 65 Clinically much better and the patient seems to be back to his baseline mentation Has been requiring only 3 L via nasal cannula to maintain saturation Will have trilogy at home on discharge Stable respiratory symptoms and has been requiring 4 L today He has to use BiPAP as much as possible especially when he is sleeping and or napping Metabolic and toxic encephalopathy, multifactorial [see below] Patient was noted to be in confusion with hallucination for few days HEAD OF CYTOGENETICS. Pt noted to be not eating and drinking well, there was concern of hydration. Likely secondary to respiratory failure due to congestion/infection and is complicated by ROBERT Now complicated by hypercarbia and acidosis Much improved clinically Treat underlying cause as below. Hold neuropsych meds as able. pt w/ chronic pain/spasms - resume home meds gradually, may need to cut down on some pain/spasm meds as tolerated, pt agree able. Acute kidney injury over CKD stage III: Patient was found to be in ROBERT over CKD stage III, hypercapnic respiratory failure at presentation. Patient was using cefepime for his sacral osteomyelitis treatment for few weeks by the time of presentation. Patient's admitting BUN and creatinine were 57 and 2.56, up trended following day. Patient noted to have poor appetite and poor fluid intake prior to arrival. Likely prerenal. Baseline creatinine around 1. Renal ultrasound without obstruction. 2019 echo with EF of 65 to 70%. Hold nephrotoxics. Nephrology on board, appreciate recommendation. lasix (& hence kcl) & aldactone on hold. Monitor BMP. Cr appears pleauted. expect improvement. Has been getting controlled doses of Lasix Creatinine remains high and minimally up today at 3.95 Creatinine remains stable at 3.9 range Kidney function is slightly worse-remains stable today with a creatinine of 4.20 as of 03/14/2023 Leukocytosis: WBC of 17.14K at presentation. Patient does appear to have chronic leukocytosis likely secondary to chronic osteomyelitis. Part of it may be contributed due to hemoconcentration secondary to poor appetite prior to arrival. Procalcitonin was negative at presentation. We will follow-up admitting blood and urine culture. Pt afebrile, wbc mostly fluctuates around 13-14 K. ID evaled, see below. White count remains elevated at 12.27 Continue ceftazidime Leukocytosis has been normalized Stage IV decubitus ulcer, history of Sacral osteomyelitis Concern for recurrent UTI, CAUTI: Patient with chronic suprapubic catheter [see above]. Urine looks clean at bedside exam on first day, patient was noted to have Pseudomonas in his urine on 02/11/2023. For which he is being covered with cefepime itself. On chronic methenamine suppression Rx - will hold while on antibiotic actively. Cefepime changed to ceftazidime 03/04/23, ID Evaled - ok w/ current dose of ceftazidime; CRP now and QotherWk; CMP/CBC w/ diff weekly while on atb. End date of atb 03/24/23. As above ceftazidime will be continued to finish the course of antibiotic Patient is a status post debridement of sacral ulcer by Dr. Srivastava on 02/11/2023 [previous admission]. Patient was being treated with cefepime for sacral osteomyelitis. 02/11 wound culture with Pseudomonas aeruginosa. Patient was evaluated by ID and recommended 6 weeks of IV cefepime at that time. PICC line was placed on 02/18. Cefepime has been changed to intravenous ceftazidime on 03/05/2023-likely the cause for congestion Discussed with the ID specialist and the pharmacist-ceftazidime will have less sodium and fluid administration compared with Zosyn We will continue with ceftazidime for now Wound care on board Pt will need close f/u w/ ID on DC. Seizure disorder:For breakthrough seizure in his 02/09 to 02/19 admission while on Keppra, his Keppra was changed to Depakote after neurology evaluation. Later patient self-discontinued Depakote due to intolerance. Evaluated by neurology again during his 02/23 - 02/26 admission, he was put back on Keppra with increased dose to 750 Mg twice daily from 500 mg BID in the past. Continue the home dose of Keppra. Patient to continue follow-up with his neurology upon discharge. Other chronic medical conditions:Resume/continue home meds as able Insulin-dependent T2DM: A1c of 6.9 this admission, glycemic pharmacy on board, sliding scale insulin. Neurogenic bladder/suprapubic cath in place/history of recurrent UTIs: hold methenamine hippurate until actively on antibiotic Rx. Colostomy status: Colostomy in place to prevent wound swelling, continue routine ostomy care Chronic anticoagulation secondary to coagulation disorder: Monitor INR daily or as needed, continue with home warfarin at reduced dose of 5 mg daily due to supratherapeutic INR at presentation. INR today subtherapeutic, extra warfarin dose of 2.5mg on top of daily 5 mg. pt/inr in am. 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 Repeat TFT in 6 weeks. DVT prophylaxis: on Warfarin Full code Dispo: CM to assist w/ dc plan, pending nephrology clearance. Patient's Ms. Rody Rodriguez, contact #[phone]. Discussed with the in detail on the other day Admission and Anticipated Discharge Date Admission Date: March 04, 2023 Subjective 03/10/2023 The patient was seen and examined in medical telemetry unit He has been feeling worse since this morning Complains chest tightness/epigastric discomfort with increasing shortness of breath Denies any pain, fever or chills and denies any nausea or vomiting Has been feeling that he is not feeling well 03/11/2023 The patient was seen and examined in medical telemetry unit He has been a little better today but he still remains confused Tolerating BiPAP reasonably Having diuresis 03/12/2023 The patient was seen and examined in medical telemetry unit He has been feeling much better and talking normally to me this morning after about 2 or 3 days Has been degrading 3 L to maintain saturation Denies any other significant symptoms 03/13/2023 The patient was seen and examined in the medical telemetry unit He was noted to have up to year 4-second pause last night without any symptoms He has been feeling much better this morning denies any significant symptom No more abdominal pain 03/14/2023 The patient was seen and examined in the medical telemetry unit He remains stable with occasional confusion Has been eating and drinking well and remains on 4 L nasal cannula to maintain saturation Review of Systems Review of Systems: All systems reviewed and are unremarkable except as noted below Neurologic: Has quadriplegia without any evidence of worsening at this time Physical Exam Physical Exam: Lying in bed without any acute distress and has been on 4 L of oxygen via nasal cannula Constitutional: well developed, well nourished, + ill appearing and + morbidly obese Eyes: PERRL, conjunctivae normal, anicteric sclerae ENMT: external ear and nose normal, oropharynx normal Neck: trachea midline, no thyromegaly Respiratory: + abnormal respiratory effort, no respiratory distress and not tachypneic Auscultation: + diminished lung sounds and + crackles (Bibasally more on the left); no wheezes Cardiovascular: Rate/Rhythm: regular rate and regular rhythm; not tachycardic Heart Sounds: normal S1 and normal S2; no murmur Extremities: + edema (Trace to 1+ edema bilaterally) Gastrointestinal (Abdomen): Inspection/Auscultation: normal bowel sounds; abdomen not distended Percussion/Palpation: abdomen soft; abdomen nontender Skin: Sacral decubiti with osteomyelitis Neurologic: Quadriplegic more with the legs than the upper extremities Lymphatic: no cervical or axillary lymphadenopathy Results & Data Results & Data Vital Signs (Past 12 Hours) Vital Signs Temp Pulse Pulse Pulse Resp BP Pulse Ox 03/14/23 09:44 03/14/23 09:42 75 24 93 03/14/23 07:00 98 H 03/14/23 07:09 36.6 C 89 20 161/84 H 94 03/14/23 02:53 36.4 C L 78 18 127/76 96 03/14/23 02:47 26 H O2 Del Method O2 Flow Rate FiO2 03/14/23 09:44 Nasal Cannula 4 03/14/23 09:42 30 03/14/23 07:00 03/14/23 07:09 Oxymask 4 03/14/23 02:53 BiPAP 03/14/23 02:47 30 Laboratory Results Short CBC 03/14/23 Range/Units 00:00 WBC 10.24 (4.8-10.8) K/ul Hgb 9.1 L (14.0-18.0) g/dl Hct 28.9 L (42.0-52.0) % Plt Count 169 (130-400) K/uL BMP 03/14/23 00:00 Sodium 142 Potassium 4.6 Chloride 106 Carbon Dioxide 28 BUN 124 H Creatinine 4.20 H Glucose 89 Calcium 8.8 Medications Administered Current Inpatient Medications Acetaminophen (Acetaminophen 325 Mg Tab) 650 mg PO Q4H PRN PRN Reason: Pain or Fever Stop: 04/03/23 03:36 Last Admin: 03/12/23 13:30 Dose: 650 mg Allopurinol (Allopurinol 100 Mg Tab) 100 mg PO BID [facility] Stop: 04/03/23 08:59 Last Admin: 03/14/23 07:48 Dose: 100 mg Atorvastatin Calcium (Atorvastatin 40 Mg Tab) 40 mg PO HS [facility] Stop: 04/03/23 20:59 Last Admin: 03/13/23 20:54 Dose: 40 mg Baclofen (Baclofen 10 Mg Tab) 10 mg PO DAILY@0000 [facility] Stop: 04/04/23 00:00 Last Admin: 03/13/23 22:15 Dose: 10 mg Baclofen (Baclofen 10 Mg Tab) 5 mg PO DAILY@0600,1200,1800 [facility] Stop: 04/03/23 17:59 Last Admin: 03/14/23 06:06 Dose: 5 mg Dextrose (Dextrose 50% 50 Ml Syringe) 25 - 50 ml IV UD PRN; Protocol PRN Reason: Hypoglycemia Protocol Stop: 04/03/23 03:37 Docusate Sodium (Docusate Sodium 100 Mg Cap) 100 mg PO AMHS [facility] Stop: 04/03/23 08:59 Last Admin: 03/14/23 07:49 Dose: 100 mg Escitalopram Oxalate (Escitalopram Oxalate 20 Mg Tab) 20 mg PO QAM [facility] Stop: 04/03/23 08:59 Last Admin: 03/10/23 08:08 Dose: 20 mg Famotidine (Famotidine 20 Mg Tab) 20 mg PO BID [facility] Stop: 04/03/23 08:59 Last Admin: 03/14/23 07:48 Dose: 20 mg Glucagon (Glucagon For Inj 1 Mg Vial) 1 mg SQ UD PRN; Protocol PRN Reason: Hypoglycemia Protocol Stop: 04/03/23 03:37 Glucose (Glucose 10 Tab/Tube) 4 - 8 tab PO UD PRN; Protocol PRN Reason: Hypoglycemia Treatment Stop: 04/03/23 03:37 Glucose (Glucose 40% Gel 15 Gm Tube) 15 - 30 gm PO UD PRN; Protocol PRN Reason: Hypoglycemia Protocol Stop: 04/03/23 03:37 Levetiracetam 750 mg/ Sodium (Chloride) 107.5 mls @ 420 mls/hr IV BID [facility] Stop: 04/03/23 20:59 Last Infusion: 03/14/23 08:59 Dose: Infused Pantoprazole Sodium 40 mg/ (Syringe) 10 mls @ 5 mls/min IV BID [facility] Stop: 04/09/23 21:44 Last Admin: 03/14/23 07:55 Dose: 5 mls/min Heparin Sodium/Dextrose (Heparin Sodium/Dextrose) 25,000 units in 500 mls @ 0 mls/hr IV .Q0M [facility]; Protocol Stop: 04/10/23 00:14 Last Titration: 03/12/23 03:43 Dose: Infused Ceftazidime 2,000 mg/ Dextrose 60 mls @ 120 mls/hr IV DAILY@0600 [facility]; Protocol Stop: 04/15/23 05:59 Last Infusion: 03/14/23 06:38 Dose: Infused Acetaminophen (Ofirmev) 1,000 mg in 100 mls @ 400 mls/hr IV Q8H PRN PRN Reason: Pain Stop: 03/15/23 17:52 Insulin Aspart (Insulin Aspart Per Unit Charge) 0 units SC ACHS [facility] Stop: 04/03/23 22:01 Last Admin: 03/14/23 08:27 Dose: Not Given Insulin Human NPH (Insulin Human Nph) 40 units SC BIDM [facility] Stop: 04/06/23 16:59 Last Admin: 03/14/23 08:28 Dose: 40 units Lactobacillus Acidophilus (Advanced Probiotic 1250 Mg Capsule) 2 cap PO BID [facility] Stop: 04/03/23 20:59 Last Admin: 03/14/23 07:49 Dose: 2 cap Levothyroxine Sodium (Levothyroxine Sodium 25 Mcg Tablet) 25 mcg PO DAILYBB [facility] Stop: 04/03/23 06:29 Last Admin: 03/14/23 06:06 Dose: 25 mcg Lorazepam (Lorazepam 0.5 Mg Tab) 0.5 mg PO HS PRN PRN Reason: Anxiety with BPAP use Stop: 04/08/23 15:54 Last Admin: 03/10/23 15:44 Dose: 0.5 mg Magnesium Oxide (Magnesium Oxide 400 Mg Tab) 400 mg PO 0000,1200 [facility] Stop: 04/04/23 00:00 Last Admin: 03/13/23 22:15 Dose: 400 mg Miscellaneous (Carbohydrates For Hypoglycemia ) 15 - 30 gm PO UD PRN PRN Reason: Hypoglycemia Protocol Stop: 04/03/23 03:37 Miscellaneous (Tacrolimus~Order Awaiting Action) 1 each N/A QS [facility] Stop: 04/03/23 07:59 Last Admin: 03/14/23 07:50 Dose: Not Given Nystatin (Nystatin Powder 15gm Btl) 1 appln EXT BID [facility] Stop: 04/03/23 08:59 Last Admin: 03/14/23 07:49 Dose: 1 appln Pantoprazole Sodium (Pantoprazole 40 Mg Tab) 40 mg PO BID [facility] Stop: 04/03/23 08:59 Last Admin: 03/10/23 21:19 Dose: Not Given Polyethylene Glycol (Polyethylene (Miralax) 17 Gm Pack) 17 gm PO DAILY [facility] Stop: 04/12/23 10:44 Last Admin: 03/14/23 08:01 Dose: 17 gm Tizanidine HCl (Tizanidine Hcl 4 Mg Tablet) 4 mg PO BID@0000,1200 [facility] Stop: 04/05/23 12:14 Last Admin: 03/13/23 22:15 Dose: 4 mg Warfarin Sodium (Warfarin Sod 5 Mg Tab) 5 mg PO DAILY@1600 [facility] Stop: 04/06/23 15:59 Last Admin: 03/13/23 17:12 Dose: 5 mg (1) Altered mental status Altered mental status type: somnolence Qualified Code(s): R40.0 - Somnolence
[2023-03-14] MEDS: tiZANidine HCL 4 MG TABLET PO SCH ×2 (12:00→23:42)
[2023-03-14] MEDS: MAGNESIUM OXIDE 400 MG TAB PO SCH ×2 (12:01→23:42)
[2023-03-14 12:09] LABS: Base Excess ABG 2.5 mEq/L (-9-1.8); HCO3 ABG 28 mmol/L (19-24); Oxygen Saturation ABG 94.4 % (90-95); PCO2 ABG 48 mmHg (35-46); PO2 ABG 68 mmHg (80-95); pH ABG 7.38 (7.35-7.45)
[2023-03-14 12:10] LABS: Allen Test Pos (Pos)
[2023-03-14] MEDS: WARFARIN SOD 5 MG TAB PO SCH (16:54)
--- NOTE | 2023-03-14 19:10 | XRay Report ---
XR chest 1V portable HISTORY: 62 years-old Male swalloed foreign body possible foreign body ingestion COMPARISON: 03/10/2023 TECHNIQUE: AP view of the chest FINDINGS: Lower chest is excluded from the [id number]. Limited study secondary to positioning. Postoperative changes of the left chest wall are again noted. Leading pleural effusions with bibasilar consolidati on redemonstrated along with mixed interstitial and alveolar opacities. Bones appear grossly intact. IMPRESSION: 1. Limited exam secondary to positioning. 2. No radiopaque foreign body identified. 3. Cardiomegaly with mixed interstitial and alveolar opacities are similar to prior suggestive of pul monary edema versus pneumonia. 4. Layering pleural effusions with bibasilar consolidation, partially imaged. ACT 112: Negative or not required by law. The above report was generated using voice recognition software. It may contain grammatical, syntax o r spelling errors. Electronically signed by: Rey Pimentel M.D. 03/14/2023 7:09 PM
[2023-03-14] MEDS: ATORVASTATIN 40 MG TAB PO SCH (19:56)
[2023-03-15] MEDS: BACLOFEN 10 MG TAB PO SCH ×3 (05:27→21:19)
[2023-03-15] MEDS: LEVOTHYROXINE SODIUM 25 MCG TABLET PO SCH (05:28)
[2023-03-15 07:00] LABS: BUN Creatinine Ratio 30.1 (10-20); Calcium 8.9 mg/dl (8.6-10.3); Creatinine Clr Calc Pharmacy 26.1 ml/min; Est GFR (African American) 15.9 ml/min; Est GFR (Non-African American) 13.7 ml/min; Potassium 4.6 mmol/L (3.5-5.1)
[2023-03-15] MEDS: INSULIN ASPART PER UNIT CHARGE SC SCH ×2 (08:48→12:28)
[2023-03-15] MEDS: NYSTATIN POWDER 15GM BTL EXT SCH (08:55)
[2023-03-15] MEDS: ADVANCED PROBIOTIC 1250 MG CAPSULE PO SCH (08:57)
[2023-03-15] MEDS: FAMOTIDINE 20 MG TAB PO SCH (08:57)
[2023-03-15] MEDS: POLYETHYLENE (MIRALAX) 17 GM PACK PO SCH (08:57)
[2023-03-15] MEDS: DOCUSATE SODIUM 100 MG CAP PO SCH (08:58)
[2023-03-15] MEDS: allopurinoL 100 MG TAB PO SCH (08:58)
[2023-03-15] MEDS: levETIRAcetam 750 MG in 0.9 % SODIUM CHLORIDE 100 ML IV SCH (09:00)
[2023-03-15] MEDS ORDERED: amLODIPine BESYLATE 5 MG TAB PO SCH (09:00)
[2023-03-15] MEDS: PANTOprazole 40 MG in SYRINGE 0 ML IV SCH (09:01)
[2023-03-15] MEDS: INSULIN HUMAN NPH SC SCH (09:10)
--- NOTE | 2023-03-15 10:16 | Nephrology Progress Note ---
Date of Service March 15, 2023 Assessment & Plan Admission and Anticipated Discharge Date Admission Date: March 04, 2023 Subjective Assessment & Plan (1) ROBERT (acute kidney injury): Plan: nonoliguric ROBERT from ischemic ATN in the setting of sepsis, acute respiratory failure. Baseline creatinine is one. Presenting creatinine 03/03 PM 2.6, with plateau for several days at 3.6 on 03/08 until he needed lasix for worsening dypsnea/respiratory failure--now low 4's This has now stabilized. Creat has not changed much in 5 days made 3500 ml+ urine yesterday without lasix. So no need of Lasix. Still has some e.o fluid overload though. showing only moderate improvement with bipap given his multifocal respiratory failure Monitor input output and daily BMP. Increased urine output is reassuring and creatinine is expected to start downtrending if no further clinical setbacks no indication for discussion of dialysis but cannot rule out need Subjective The patient had an uneventful night. Comfortable On Bipap Good UOP--3500 ml + Review of Systems Review of Systems: All systems reviewed & are unremarkable except as noted in HPI & below Physical Exam Physical Exam: Constitutional: No respiratory distress on Bipap HEENT: EOMI, PERRLA Respiratory system:Decreased air entry bilaterally CVS: S1-S2 positive, no murmurs or gallops, distant heart sounds Abdomen: Soft, nontender, nondistended, positive bowel sounds x4,obese, positive left-sided colostomy Extremities: no cyanosis,+1 pitting edema bilateral lower extremity Neuro: oriented to self and place Results & Data Vital Signs (Past 12 Hours) Vital Signs Temp Pulse Pulse Resp BP Pulse Ox O2 Del Method 03/15/23 07:00 36.7 C 110 H 18 165/84 H 96 Nasal Cannula 03/15/23 07:25 104 H 03/15/23 05:24 97 Oxymask 03/15/23 03:03 97 H 94 Oxymask 03/15/23 02:51 36.5 C 104 H 24 160/84 H 90 Room Air 03/14/23 23:39 94 Nasal Cannula 03/14/23 22:30 86 20 94 O2 Flow Rate FiO2 03/15/23 07:00 2 03/15/23 07:25 03/15/23 05:24 5 03/15/23 03:03 5 03/15/23 02:51 03/14/23 23:39 4 03/14/23 22:30 30
--- NOTE | 2023-03-15 10:43 | Palliative Care Consultation ---
Date of Consultation March 15, 2023 Assessment & Plan (1) Palliative care by specialist: Met with pt : Provided overview of Palliative Medicine, a subspecialty that provides specialized medical care for people living with a serious illness by offering a focus on quality of life. Palliative Medicine is often conflated with hospice: I advised patient/family that Palliative and hospice can be partners but we are not the same. It is important to understand the difference so that we may be informed, and not afraid. Palliative Medicine works to improve QOL through reduction of symptom burden/more control over their illness, for both the patient and family. Palliative medicine clinicians are board certified, specially-trained and another member of the patient's medical care team. We often provide an extra layer of support because our care is based on the needs of the patient, not the prognosis; as such, it's appropriate at any age/advancing stage of a serious illness and can be provided along with curative treatment. Palliative Medicine clinicians are also trained in advanced communication methodologies, to facilitate complex discussions about advanced illness planning, which are needed to help assure that the treatment choices match the patient's goals, aka delivering Goal Concordant care. Finally, we discussed that hospice is a visiting nurse service that focuses on care delivered at the very end of life for patients with terminal illness, with life expectancy less than 6 month. (2) Advanced care planning/counseling discussion: Met with Mrs Rodriguez x 50 min facer to face in family meeting area. We reviewed that all chronic/progressive disease has a declining trajectory over time where facets of patient self-identity and independence are lost. Every acute event leads to a further decline, resulting- many times, in a new baseline. Advised that the greatest priority is to determine what matters most to pt, then family and to develop a plan of care that is aligned with those priorities. Advance illness planning conversations are conducted to review goals and expectations, support shared decision-making, and engage in disease specific advance care planning. This type of advance care planning is sometimes referred to as 'preparedness planning. It is used to review the risks and benefits of offered therapy, elicit and deepen understanding of the underlying illness and therapeutic options, ensure adequate psychosocial support, address existential concerns and coping, and engage in end-of-life planning. Preparedness planning is not meant to replace informed consent discussions. Palliative medicine plays a role in the process of deepening a patients understanding of this specific medical intervention and ensuring this treatment aligns with their goals of care remains a central tenet of the planning conversation. She shares the details of his worsening, noted in HPI above. She reaffirms desire to assure he is comfortable, avoid suffering and not prolong dying. 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 Her disability has been rejected. She struggles with her own depression and a nxiety, fearful of her future without as well. They have a daughter who is in her 30's, lives nearby and has 2 children - pt grandchildren are 4 and 5 yo respectively. Dtr has become more and more restrictive with allowing pt and to see the grandkids who up until a few years ago spent every weekend with them. notes that she has been calling dtr several times a day and begging her to come visit/bring the grandkids but she replied "I can't, I'm busy." She shares that daughter was adopted, at 5mos, has alcohol syndrome and CP. Patient and currently in midst of a court green to obtain grandparents' right. now anxious how patient may further impact reconnecting with their grandchildren. She states that a former caregiver of patient became close friends with their daughter, then left the patient and became a paid caregiver to dtr. states "then she just set about estranging us from our daughter and grandchildren by feeding our daughter a lot of lies, and it's because she wants our daughter and grandkids all to herself because she doesn't have any grandkids of her own and her daughter refuses to have children so she decided to steal our daughter." (3) Hypercapnic respiratory failure: (4) Altered mental status: Altered mental status type: somnolence Qualified Code(s): R40.0 - Somnolence (5) Obesity hypoventilation syndrome: (6) Sepsis: Sepsis acute organ dysfunction status: without acute organ dysfunction Sepsis type: sepsis due to unspecified organism Qualified Code(s): A41.9 - Sepsis, unspecified organism (7) Chronic incomplete quadriplegia: (8) Weakness generalized: (9) Osteomyelitis: Plan * In accordance with patient's prior expressed wishes to and with 's reaffirmation of same, move to comfort care. She notes he has been suffering for over 14 years and deserves to have a more peaceful ending. Extensive psychosocial support provided. Yard Stocker consult ordered for additional support. is truly suffering on multiple fronts due to family stressors and patient's declining condition. * Code status changed to DNR/DNI. affirms pt would not want to be prolonged from dying or be on machines. * he is chewing on oxygen tubing and masks. He removes these when not in restraints. would like these interventions stopped. * DC restraints once agitation in under control. use meds as ordered to achieve this goal. * Comfort care orders written. Patient allergy to codeine noted as "throat swelling" and clarifies this was decades ago, he has had dilaudid in past which did not cause throat swelling. * Discussed with primary team and nursing. Thank you for allowing us to participate in the ongoing care of this patient. Please don't hesitate to call or page with any additional concerns. Dr. Marjorie Head DNP Director, Palliative Care History of Present Illness Reason for Consultation: goals of care Attending Physician: Rc Juarez MD History of Present Illness Mr Rodriguez is a 62yo male admitted for AMS on 03/04/23, found to be in hypercapnic resp failure, also in ROBERT over CKD III. Per admitting note: "Limited history from patient secondary to disorientation. 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 dif, chronic sacral decubitus wounds/osteomyelitis status post recent debridement ongoing Cefepime course. Two [facility] confinements this month for sepsis secondary to infected sacral decubitus ulcer. No debridement during last confinement. Patient discharged on cefepime course last week. Keppra started for seizure disorder by Neurology due to valproic acid intolerance. Patient noted to be confused the last few days with hallucinations. Not eating a lot. No unusual cough, chest pain, SOB, abdominal pain, headache complaints. 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 He is confused, +AMS, cannot answer ques or provide HPI He has been hallucinating more, seeing his parents, her parents and asking where they are going When he was first admitted, he told "I want to see the kids, I am going to , I know it." at bedside, provides and confirms above hx States pt has been on a steady decline for nearly a year, but has, on the whole, "been suffering for 14 years ever since his injury and quadriplegia, it has just been more and more awful for him from a quality of life perspective." shares that Adolfo has been fighting chronic persistent wound infections for 14 years. He has had numerous surgeries "but we knew nothing would ever cure those wounds." In spite of his injuries they have tried to live as full a life as possible - one of their favorite past times is attending the [employer] in [place] with a close family friend. 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 She is devoted to Adolfo however and in spite of the toll this is taking on her personal and emotional well being, continues to provide all the care he needs and is resolutely determined to keep him at home as he requested. Allergies Allergy/AdvReac Type Severity Reaction Status Date / Time codeine Allergy Severe THROAT Verified 02/23/23 14:12 SWELLS latex Allergy Intermediate Hives Verified 02/23/23 14:12 piperacillin Allergy Intermediate Hives Verified 02/23/23 14:12 Sulfa (Sulfonamide Allergy Intermediate HIVES Verified 02/23/23 14:12 Antibiotics) tazobactam Allergy Intermediate Hives Verified 02/23/23 14:12 aztreonam Allergy Unknown unknown Verified 02/23/23 14:12 metoclopramide [From Reglan] AdvReac Intermediate lethargy Verified 02/23/23 14:12 Home Medications Medication Instructions Recorded Confirmed Type allopurinol 100 mg tablet 100 mg PO BID 05/07/18 03/03/23 History magnesium oxide 400 mg (241.3 mg 400 mg PO AMHS 05/07/18 03/03/23 History magnesium) tablet pantoprazole 40 mg tablet,delayed 40 mg PO BID 05/07/18 03/03/23 History release ropinirole 1 mg tablet 1 mg PO QID 05/07/18 03/03/23 History escitalopram oxalate 20 mg tablet 20 mg PO QAM 08/21/19 03/03/23 History insulin human U-100 NPH-regulr 64 unit subcut BIDM 08/21/19 03/03/23 History 70-30 mix 100 unit/mL subcutaneous susp (Novolin 70/30 U-100 Insulin) warfarin 5 mg tablet 5 mg PO 4XWK 08/21/19 03/03/23 History baclofen 10 mg tablet See Rx Instructions .Route .COMPLEX 09/22/19 03/03/23 History cyclobenzaprine 10 mg tablet 15 mg PO HS 03/01/20 03/03/23 History hyoscyamine sulfate 0.125 mg tablet 0.125 mg PO QPM 03/01/20 03/03/23 History potassium chloride 10 mEq 10 meq PO BIDM 03/01/20 03/03/23 History tablet,extended release tizanidine 4 mg tablet 4 mg PO BID 03/01/20 03/03/23 History Medical Marijuana 6 drp PO PM 03/26/20 03/03/23 History methenamine hippurate 1 gram tablet 1 g PO BID 30 days #60 tabs 04/02/20 03/03/23 Rx ascorbic acid (vitamin C) 500 mg 250 mg PO TID 12/03/20 03/03/23 History tablet (Vitamin C) famotidine 20 mg tablet (Acid 20 mg PO BID 12/03/20 03/03/23 History Director Customer (famotidine)) Lactobacillus acidoph-L.bulgaricus 1 tab PO BID 01/03/21 03/03/23 History 1 million cell tablet (Floranex) insulin regular human 100 unit/mL See Rx Instructions .Route .COMPLEX 01/03/21 03/03/23 History injection solution (Novolin R Regular U-100 Insulin) menthol 0.44 %-zinc oxide 20.6 % 1 applic topical QID PRN Rash 01/03/21 03/03/23 History topical ointment (Calmoseptine) nystatin 100,000 unit/gram topical 1 applic topical BID 01/03/21 03/03/23 History powder metformin 1,000 mg tablet 1,000 mg PO BIDM 06/14/21 03/03/23 History atorvastatin 40 mg tablet 40 mg PO HS 12/31/21 03/03/23 History docusate sodium 100 mg capsule 100 mg PO AMHS 12/31/21 03/03/23 History levothyroxine 25 mcg tablet 25 mcg PO DAILYBB 02/12/22 03/03/23 History ketoconazole 2 % shampoo 1 applic topical 2XWK 05/22/22 03/03/23 History nystatin-triamcinolone 100,000 1 applic topical BID PRN Rash 05/22/22 03/03/23 History unit/g-0.1 % topical cream spironolactone 25 mg tablet 25 mg PO QAM 05/22/22 03/03/23 History tacrolimus 0.1 % topical ointment 1 applic topical BID 05/22/22 03/03/23 History furosemide 40 mg tablet 40 mg PO BID17 02/09/23 03/03/23 History gabapentin 600 mg tablet 600 mg PO BID 02/09/23 03/03/23 History warfarin 7.5 mg tablet 7.5 mg PO 3XWK 02/09/23 03/03/23 History cefepime 2 gram solution for 2 g IV Q8H #35 ea 02/19/23 03/03/23 Rx injection metoprolol tartrate 25 mg tablet 12.5 mg PO QAM #15 tabs 02/19/23 03/03/23 Rx levetiracetam 750 mg tablet 750 mg PO BID #60 tabs 02/26/23 03/03/23 Rx (Keppra) cefdinir 300 mg capsule 300 mg PO UD 03/03/23 03/03/23 History Patient History Medical History (Updated 03/15/23 @ 10:52 by Marjorie Head DNP) Advanced care planning/counseling discussion Anemia Asymptomatic bacteriuria Clostridium difficile infection (Unknown) CVA (cerebral vascular accident) DM type 2 (diabetes mellitus, type 2) Dyslipidemia Dysphagia Elevated lactic acid level Fever History of blood clots History of DVT (deep vein thrombosis) Hypertension Hypotension Ileus Kidney disease Lethargy Leukocytosis Major depressive disorder, recurrent Morbid obesity Obesity Occluded PICC line Palliative care by specialist Positive urine culture Quadriplegia BRAIN INJURY 11 YRS AGO Quadriplegia Sacral decubitus ulcer, stage IV Sacral wound Seizure Seizure-like activity Sepsis SIRS (systemic inflammatory response syndrome) Sleep apnea (Unknown) OXYGEN 2L/MIN NC HS Syncope 57 year old with know quadriplegia and new onset syncope with change in position UTI (urinary tract infection) RECENT [facility] ADMISION-D/C 12/06/20 Weakness Weakness generalized Surgical History Chronic suprapubic catheter History of colonoscopy 2010 History of open reduction and internal fixation (ORIF) procedure LEFT FEMUR Insertion of inferior vena caval filter (Unknown) Lithotripsy (Unknown) "laser lithotripsy left ureteral stone 03/17/11 " S/P debridement (09/06/21) Incision and Drainage and Debridement Sacral Tissue Down to Bone, 15cm x 11cm - Agusto Chaudhry DO 09/06/21 S/P debridement (09/08/21) Excisional Debridement of Sacral Decubitus Ulcer, [id number] Down to Bone - Agusto Chaudhry DO 09/08/2021. Patient made ASA 4. Ketamine/versed/fentanyl sedation. Tolerated without incident. S/P debridement S/P debridement (02/11/23) Debridement of sacral ulcer. Dr. Srivastava S/P knee surgery S/P tonsillectomy Suprapubic cystostomy (Unknown) IN PLACE Family History Mother , age 47 of cervical cancer Family history of diabetes mellitus Cervical cancer Father , age 85 of heart disease Family hx of colon cancer Heart disease Other No pertinent family history Social History Smoking Status: Never smoker Second Hand Exposure: No; Do You Dip or Chew Tobacco: No; Hx Alcohol Use: No Hx Substance Use: No Preferred Language: [place] Citizen Communication Ability: Effective Visual Impairment: No Limitations Cable Splicer Assistant Required: No Beliefs That Will Affect Care: Jehovah'S Witness Jehovah'S Witness Beliefs: Amish marital status: Current Living Situation: Spouse Current Living Situation Comment: At home with . 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 Feels Safe at Home: Yes Physical Activity Frequency Comment: QUADRAPLEGIA C4-5-ABLE TO MOVE ARMS, HANDS Assistive Devices: Hospital Bed, Mechanical Lift and Oxygen - Continuous Review of Systems Review of Systems: Unobtainable due to cognitive status and Unobtainable due to reduced consciousness Physical Exam Constitutional: + acute distress, + ill appearing, + morbidly obese, + altered mental status and + diaphoretic Eyes: + anicteric sclerae and PERRL ENMT: face mask oxygen in place, pt chewing on edge of face mask, unable to understand requests not to do so, he is not able to respond to questions, stares blankly around the room Neck: +pickwickian neck Respiratory: inc effort, no stridor, no wheezing Cardiovascular: Rate/Rhythm: + irregularly irregular Gastrointestinal (Abdomen): obese, +pannus, +ostomy Musculoskeletal: +quadriplegia Skin: + turgor decreased and + pallor Neurologic: + confused Speech / Cognition: + abnormal cognition speech garbled at times, randomly cries out Momma at times Results & Data Vital Signs (Past 12 Hours) Vital Signs Temp Pulse Pulse Resp BP Pulse Ox O2 Del Method 03/15/23 07:00 36.7 C 110 H 18 165/84 H 96 Nasal Cannula 03/15/23 07:25 104 H 03/15/23 05:24 97 Oxymask 03/15/23 03:03 97 H 94 Oxymask 03/15/23 02:51 36.5 C 104 H 24 160/84 H 90 Room Air 03/14/23 23:39 94 Nasal Cannula O2 Flow Rate 03/15/23 07:00 2 03/15/23 07:25 03/15/23 05:24 5 03/15/23 03:03 5 03/15/23 02:51 03/14/23 23:39 4 Laboratory Results data reviewed Diagnostic Findings data reviewed PG Care Time/CCT Total # of Minutes Spent Total Time Spent: 125 Total Time Spent with Patient: Total time spent is greater than 50% in coordination of care (as documented) at patient's floor/unit and/or counseling patient: I spent 125 minutes overall addressing this very complex case: 20 in complex medical data review/discussion with referring provider(s) and/or preparation for the visit 15 in direct interaction with the patient 55 Advance Care Planning/Goals of Care discussions as detailed above in note (must be >16min) 15 in subsequent review and synthesis of assessment and plan 20 in communicating with other providers regarding the patient's case: nursing, medical teams,nursing unit mgt/discussion of restraints Prolonged Care Time Prolonged Care Time: Yes Advanced Care Planning 10090 Advanced Care Planning 30 Min 01522 Advanced Care Planning Additional 30 [place] [address] IN/OBS CONSULT LVL 5,80M Patient Type New History Comprehensive Exam Comprehensive Medical Decision Making High Complexity Diagnoses Palliative care by specialist Z51.5 Advanced care planning/counseling discussion Z71.89 Hypercapnic respiratory failure J96.92 Altered mental status R40.0 Altered mental status type: somnolence Obesity hypoventilation syndrome E66.2 Sepsis A41.9 Sepsis acute organ dysfunction status: without acute organ dysfunction Sepsis type: sepsis due to unspecified organism Chronic incomplete quadriplegia G82.50 Weakness generalized R53.1 Osteomyelitis M86.9 Additional Codes Advanced Care Planning - 52889 Advanced Care Planning 30 Min: 36291 Advanced Care Planning 30 Min ([id number]) Advanced Care Planning - 82040 Advanced Care Planning Additional 30 Min: 58518 Advanced Care Planning Additional 30 Min ([id number]) Prolonged Care Time - Prolonged Care Time: Yes ([id number])
[2023-03-15 11:50] VITALS: O2SAT 97
[2023-03-15] MEDS: tiZANidine HCL 4 MG TABLET PO SCH (12:27)
[2023-03-15] MEDS: MAGNESIUM OXIDE 400 MG TAB PO SCH (12:28)
--- NOTE | 2023-03-15 13:32 | Cardiology Progress Note ---
Date of Service March 15, 2023 Assessment & Plan (1) Bradycardia: (2) TORY (obstructive sleep apnea): (3) Obesity hypoventilation syndrome: (4) Chronic incomplete quadriplegia: (5) Altered mental status: (6) ROBERT (acute kidney injury): Plan Continue to hold metoprolol. Monitor telemetry. No further cardiac testing at this time. Admission and Anticipated Discharge Date Admission Date: March 04, 2023 Subjective Patient seen examined the bedside. Sleeping on BiPAP. Nursing reports restlessness overnight. Upper extremity restraints in place due to agitation. Beta-demario placed on hold due to for second sinus pauses recorded 03/13/2023. No recurrent pauses on telemetry overnight. Rhythm is sinus heart rate ranging from 100-110 bpm. Review of Systems Review of Systems: All systems reviewed & are unremarkable except as noted in Subjective Physical Exam Constitutional: + morbidly obese Respiratory: normal respiratory effort; no respiratory distress and no ret ractions Auscultation: no crackles, no rales, no rhonchi and no wheezes Cardiovascular: Rate/Rhythm: regular rate and regular rhythm Heart Sounds: normal S1 and normal S2; no murmur Extremities: no edema Gastrointestinal (Abdomen): Inspection/Auscultation: normal bowel sounds; abdomen not distended Results & Data Vital Signs (Past 12 Hours) Vital Signs Temp Pulse Pulse Resp BP Pulse Ox O2 Del Method 03/15/23 11:30 36.9 C 118 H 18 160/78 H 97 BiPAP 03/15/23 10:37 BiPAP 03/15/23 07:00 36.7 C 110 H 18 165/84 H 96 Nasal Cannula 03/15/23 07:25 104 H 03/15/23 05:24 97 Oxymask 03/15/23 03:03 97 H 94 Oxymask 03/15/23 02:51 36.5 C 104 H 24 160/84 H 90 Room Air O2 Flow Rate 03/15/23 11:30 03/15/23 10:37 03/15/23 07:00 2 03/15/23 07:25 03/15/23 05:24 5 03/15/23 03:03 5 03/15/23 02:51 Laboratory Results Comprehensive Metabolic Panel 03/15/23 Range/Units 06:09 Sodium 144 (136-145) mmol/L Potassium 4.6 (3.5-5.1) mmol/L Chloride 106 (98-107) mmol/L Carbon Dioxide 28 (21-32) mmol/L BUN 129 H (6-23) mg/dl Creatinine 4.28 H (0.6-1.4) mg/dl Glucose 72 (70-99(Fasting)) mg/dl Calcium 8.9 (8.6-10.3) mg/dl Intake and Output 03/14/23 03/15/23 03/15/23 22:59 06:59 14:59 Intake Total 107.5 / 275.0 60 / 275.0 107.5 / 107.5 Output Total 1649 / 3549 999 / 0 Balance -1542.5 / -3275.0 -940 / -3275.0 107.5 / 107.5 Intake: IV 107.5 / 275.0 60 / 275.0 107.5 / 107.5 cefTAZidime 2,000 mg In 60 / 60 Dextrose 5% 50 ml @ 120 mls/hr IV DAILY@0600 [facility] Rx#:[id number] levETIRAcetam 750 mg In 0.9 % 107.5 / 215.0 107.5 / 107.5 Sodium Chloride 100 ml @ 420 mls/hr IV BID [facility] Rx#:[id number] Output: Urine Amount (Catheter) 1649 / 3549 999 / 0 Martinez/Indwelling 1649 / 3549 999 / 0 Other: Other Intake Source sips Weight 148.5 kg (5) Altered mental status Altered mental status type: somnolence Qualified Code(s): R40.0 - Somnolence
--- NOTE | 2023-03-15 13:46 | Hospitalist Progress Note ---
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 In the ED, he was found to be in hypercapnic resp failure, also in ROBERT over CKD III. He is being managed for the following: Palliative care encounter Input appreciated We will continue current management Sinus pauses Noted to have up to 4-second pause and monitor Did not have any symptoms EKG this morning looks okay Cardiology consulted-appreciate input and recommendation Beta-demario has been on hold Amlodipine has been started to control blood pressure Acute hypercapnic respiratory failure: Patient noted to be lethargic at presentation, CO2 of 61 in ABG at presentation. Likely secondary to underlying OHS. Admitting CT Head with no acute findings. Admitting CT chest with partial collapse of left lower lobe with underlying infection not excluded. Pulmonology consulted, recommend BPAP 15/10 w/ O2 on DC, sleep study as OP. Patient was put on BiPAP, was alert and back to baseline at bedside exam on the first day of exam. Condition got worse since this morning with more shortness of breath and somnolence Chest x-ray did show increasing congestion and received 80 mg of IV Lasix in the afternoon after discussion with the promotions manager Appreciate supervisor bleach plant evaluation and recommendation Has been using BiPAP as tolerated and the condition is getting a little better CODE STATUS has been changed to conditional Remains hypercarbic with pH of 7.27 and PCO2 of 65 Clinically much better and the patient seems to be back to his baseline mentation Has been requiring only 3 L via nasal cannula to maintain saturation Will have trilogy at home on discharge Stable respiratory symptoms and has been requiring 4 L today He has to use BiPAP as much as possible especially when he is sleeping and or napping Has been using BiPAP as needed Metabolic and toxic encephalopathy, multifactorial [see below] Patient was noted to be in confusion with hallucination for few days [employer]. Pt noted to be not eating and drinking well, there was concern of hydration. Likely secondary to respiratory failure due to congestion/infection and is complicated by ROBERT Now complicated by hypercarbia and acidosis Ongoing intermittent delirium Palliative care consultation is taken as above Treat underlying cause as below. Hold neuropsych meds as able. pt w/ chronic pain/spasms - resume home meds gradually, may need to cut down on some pain/spasm meds as tolerated, pt agreeable. Acute kidney injury over CKD stage III: Patient was found to be in ROBERT over CKD stage III, hypercapnic respiratory failure at presentation. Patient was using cefepime for his sacral osteomyelitis treatment for few weeks by the time of presentation. Patient's admitting BUN and creatinine were 57 and 2.56, up trended following day. Patient noted to have poor appetite and poor fluid intake prior to arrival. Likely prerenal. Baseline creatinine around 1. Renal ultrasound without obstruction. 2019 echo with EF of 65 to 70%. Hold nephrotoxics. Nephrology on board, appreciate recommendation. lasix (& hence kcl) & aldactone on hold. Monitor BMP. Cr appears pleauted. expect improvement. Has been getting controlled doses of Lasix Creatinine remains high and minimally up today at 3.95 Creatinine remains stable at 3.9 range Kidney function is slightly worse-remains stable today with a creatinine of 4.20 as of 03/14/2023 Has been making out enough urine even though creatinine is minimally up Leukocytosis: WBC of 17.14K at presentation. Patient does appear to have chronic leukocytosis likely secondary to chronic osteomyelitis. Part of it may be contributed due to hemoconcentration secondary to poor appetite prior to arrival. Procalcitonin was negative at presentation. We will follow-up admitting blood and urine culture. Pt afebrile, wbc mostly fluctuates around 13-14 K. ID evaled, see below. White count remains elevated at 12.27 Continue ceftazidime Leukocytosis has been normalized Stage IV decubitus ulcer, history of Sacral osteomyelitis Concern for recurrent UTI, CAUTI: Patient with chronic suprapubic catheter [see above]. Urine looks clean at bedside exam on first day, patient was noted to have Pseudomonas in his urine on 02/11/2023. For which he is being covered with cefepime itself. On chronic methenamine suppression Rx - will hold while on antibiotic actively. Cefepime changed to ceftazidime 03/04/23, ID Evaled - ok w/ current dose of ceftazidime; CRP now and QotherWk; CMP/CBC w/ diff weekly while on atb. End date of atb 03/24/23. As above ceftazidime will be continued to finish the course of antibiotic The course of antibiotic will be finished on of this month Patient is a status post debridement of sacral ulcer by Dr. Srivastava on 02/11/2023 [previous admission]. Patient was being treated with cefepime for sacral osteomyelitis. 02/11 wound culture with Pseudomonas aeruginosa. Patient was evaluated by ID and recommended 6 weeks of IV cefepime at that time. PICC line was placed on 02/18. Cefepime has been changed to intravenous ceftazidime on 03/05/2023-likely the cause for congestion Discussed with the ID specialist and the pharmacist-ceftazidime will have less sodium and fluid administration compared with Zosyn We will continue with ceftazidime for now Wound care on board Pt will need close f/u w/ ID on DC. Seizure disorder:For breakthrough seizure in his 02/09 to 02/19 admission while on Keppra, his Keppra was changed to Depakote after neurology evaluation. Later patient self-discontinued Depakote due to intolerance. Evaluated by neurology again during his 02/23 - 02/26 admission, he was put back on Keppra with increased dose to 750 Mg twice daily from 500 mg BID in the past. Continue the home dose of Keppra. Patient to continue follow-up with his neurology upon discharge. Other chronic medical conditions:Resume/continue home meds as able Insulin-dependent T2DM: A1c of 6.9 this admission, glycemic pharmacy on board, sliding scale insulin. Neurogenic bladder/suprapubic cath in place/history of recurrent UTIs: hold methenamine hippurate until actively on antibiotic Rx. Colostomy status: Colostomy in place to prevent wound swelling, continue routine ostomy care Chronic anticoagulation secondary to coagulation disorder: Monitor INR daily or as needed, continue with home warfarin at reduced dose of 5 mg daily due to supratherapeutic INR at presentation. INR today subtherapeutic, extra warfarin dose of 2.5mg on top of daily 5 mg. pt/inr in am. 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 Repeat TFT in 6 weeks. DVT prophylaxis: on Warfarin Full code Dispo: CM to assist w/ dc plan, pending nephrology clearance. Patient's Ms. Rody Rodriguez, contact #[phone]. Discussed with the in detail again today on 03/15/2023 Admission and Anticipated Discharge Date Admission Date: March 04, 2023 Subjective 03/10/2023 The patient was seen and examined in medical telemetry unit He has been feeling worse since this morning Complains chest tightness/epigastric discomfort with increasing shortness of breath Denies any pain, fever or chills and denies any nausea or vomiting Has been feeling that he is not feeling well 03/11/2023 The patient was seen and examined in medical telemetry unit He has been a little better today but he still remains confused Tolerating BiPAP reasonably Having diuresis 03/12/2023 The patient was seen and examined in medical telemetry unit He has been feeling much better and talking normally to me this morning after about 2 or 3 days Has been degrading 3 L to maintain saturation Denies any other significant symptoms 03/13/2023 The patient was seen and examined in the medical telemetry unit He was noted to have up to year 4-second pause last night without any symptoms He has been feeling much better this morning denies any significant symptom No more abdominal pain 03/14/2023 The patient was seen and examined in the medical telemetry unit He remains stable with occasional confusion Has been eating and drinking well and remains on 4 L nasal cannula to maintain saturation 03/15/2023 The patient was seen and examined in medical telemetry unit He has been stable with occasional attacks of delirium associated with restlessness and more confusion with desaturation Remained drowsy this morning and remains on BiPAP Clinically worsened compared with the last few days Discussed with significant other and palliative care consultation was taken Review of Systems Review of Systems: All systems reviewed and are unremarkable except as noted below Neurologic: Has quadriplegia without any evidence of worsening at this time Physical Exam Physical Exam: Lying in bed with minimal to moderate respiratory distress and drowsiness Constitutional: well developed, well nourished, + ill appearing and + morbidly obese Eyes: PERRL, conjunctivae normal, anicteric sclerae ENMT: external ear and nose normal, oropharynx normal Neck: trachea midline, no thyromegaly Respiratory: + abnormal respiratory effort, no respiratory distress and not tachypneic Auscultation: + diminished lung sounds and + crackles (Bibasally more on the left); no wheezes Cardiovascular: Rate/Rhythm: regular rate and regular rhythm; not tachycardic Heart Sounds: normal S1 and normal S2; no murmur Extremities: + edema (Trace to 1+ edema bilaterally) Gastrointestinal (Abdomen): Inspection/Auscultation: normal bowel sounds; abdomen not distended Percussion/Palpation: abdomen soft; abdomen nontender Musculoskeletal: No acute arthritis involving any joint at Neurologic: Has quadriplegia with more weakness involving the legs than the upper extremities Lymphatic: no cervical or axillary lymphadenopathy Results & Data Results & Data Vital Signs (Past 12 Hours) Vital Signs Temp Pulse Pulse Resp BP Pulse Ox O2 Del Method 03/15/23 11:30 36.9 C 118 H 18 160/78 H 97 BiPAP 03/15/23 10:37 BiPAP 03/15/23 07:00 36.7 C 110 H 18 165/84 H 96 Nasal Cannula 03/15/23 07:25 104 H 03/15/23 05:24 97 Oxymask 03/15/23 03:03 97 H 94 Oxymask 03/15/23 02:51 36.5 C 104 H 24 160/84 H 90 Room Air O2 Flow Rate 03/15/23 11:30 03/15/23 10:37 03/15/23 07:00 2 03/15/23 07:25 03/15/23 05:24 5 03/15/23 03:03 5 03/15/23 02:51 Laboratory Results [facility] 03/15/23 06:09 Sodium 144 Potassium 4.6 Chloride 106 Carbon Dioxide 28 BUN 129 H Creatinine 4.28 H Glucose 72 Calcium 8.9 Medications Administered Current Inpatient Medications Acetaminophen (Acetaminophen 325 Mg Tab) 650 mg PO Q4H PRN PRN Reason: Pain or Fever Stop: 04/03/23 03:36 Last Admin: 03/12/23 13:30 Dose: 650 mg Allopurinol (Allopurinol 100 Mg Tab) 100 mg PO BID JO Stop: 04/03/23 08:59 Last Admin: 03/15/23 08:58 Dose: 100 mg Amlodipine Besylate (Amlodipine Besylate 5 Mg Tab) 5 mg PO QAM [facility] Stop: 04/14/23 08:59 Last Admin: 03/15/23 08:55 Dose: 5 mg Atorvastatin Calcium (Atorvastatin 40 Mg Tab) 40 mg PO HS [facility] Stop: 04/03/23 20:59 Last Admin: 03/14/23 19:56 Dose: 40 mg Baclofen (Baclofen 10 Mg Tab) 10 mg PO DAILY@0000 [facility] Stop: 04/04/23 00:00 Last Admin: 03/14/23 23:42 Dose: Not Given Baclofen (Baclofen 10 Mg Tab) 5 mg PO DAILY@0600,1200,1800 [facility] Stop: 04/03/23 17:59 Last Admin: 03/15/23 12:27 Dose: 5 mg Dextrose (Dextrose 50% 50 Ml Syringe) 25 - 50 ml IV UD PRN; Protocol PRN Reason: Hypoglycemia Protocol Stop: 04/03/23 03:37 Docusate Sodium (Docusate Sodium 100 Mg Cap) 100 mg PO AMHS [facility] Stop: 04/03/23 08:59 Last Admin: 03/15/23 08:58 Dose: 100 mg Escitalopram Oxalate (Escitalopram Oxalate 20 Mg Tab) 20 mg PO QAM [facility] Stop: 04/03/23 08:59 Last Admin: 03/10/23 08:08 Dose: 20 mg Famotidine (Famotidine 20 Mg Tab) 20 mg PO BID [facility] Stop: 04/03/23 08:59 Last Admin: 03/15/23 08:57 Dose: 20 mg Glucagon (Glucagon For Inj 1 Mg Vial) 1 mg SQ UD PRN; Protocol PRN Reason: Hypoglycemia Protocol Stop: 04/03/23 03:37 Glucose (Glucose 10 Tab/Tube) 4 - 8 tab PO UD PRN; Protocol PRN Reason: Hypoglycemia Treatment Stop: 04/03/23 03:37 Glucose (Glucose 40% Gel 15 Gm Tube) 15 - 30 gm PO UD PRN; Protocol PRN Reason: Hypoglycemia Protocol Stop: 04/03/23 03:37 Levetiracetam 750 mg/ Sodium (Chloride) 107.5 mls @ 420 mls/hr IV BID JO Stop: 04/03/23 20:59 Last Infusion: 03/15/23 09:23 Dose: Infused Pantoprazole Sodium 40 mg/ (Syringe) 10 mls @ 5 mls/min IV BID [facility] Stop: 04/09/23 21:44 Last Admin: 03/15/23 09:01 Dose: 5 mls/min Heparin Sodium/Dextrose (Heparin Sodium/Dextrose) 25,000 units in 500 mls @ 0 mls/hr IV .Q0M [facility]; Protocol Stop: 04/10/23 00:14 Last Titration: 03/12/23 03:43 Dose: Infused Ceftazidime 2,000 mg/ Dextrose 60 mls @ 120 mls/hr IV DAILY@0600 [facility]; Protocol Stop: 04/15/23 05:59 Last Infusion: 03/15/23 06:03 Dose: Infused Acetaminophen (Ofirmev) 1,000 mg in 100 mls @ 400 mls/hr IV Q8H PRN PRN Reason: Pain Stop: 03/15/23 17:52 Insulin Aspart (Insulin Aspart Per Unit Charge) 0 units SC ACHS [facility] Stop: 04/03/23 22:01 Last Admin: 03/15/23 12:28 Dose: Not Given Insulin Human NPH (Insulin Human Nph) 40 units SC BIDM [facility] Stop: 04/06/23 16:59 Last Admin: 03/15/23 09:10 Dose: 40 units Lactobacillus Acidophilus (Advanced Probiotic 1250 Mg Capsule) 2 cap PO BID [facility] Stop: 04/03/23 20:59 Last Admin: 03/15/23 08:57 Dose: 2 cap Levothyroxine Sodium (Levothyroxine Sodium 25 Mcg Tablet) 25 mcg PO DAILYBB [facility] Stop: 04/03/23 06:29 Last Admin: 03/15/23 05:28 Dose: 25 mcg Lorazepam (Lorazepam 0.5 Mg Tab) 0.5 mg PO HS PRN PRN Reason: Anxiety with BPAP use Stop: 04/08/23 15:54 Last Admin: 03/10/23 15:44 Dose: 0.5 mg Magnesium Oxide (Magnesium Oxide 400 Mg Tab) 400 mg PO 0000,1200 [facility] Stop: 04/04/23 00:00 Last Admin: 03/15/23 12:28 Dose: 400 mg Miscellaneous (Carbohydrates For Hypoglycemia ) 15 - 30 gm PO UD PRN PRN Reason: Hypoglycemia Protocol Stop: 04/03/23 03:37 Miscellaneous (Tacrolimus~Order Awaiting Action) 1 each N/A QS [facility] Stop: 04/03/23 07:59 Last Admin: 03/15/23 09:01 Dose: Not Given Nystatin (Nystatin Powder 15gm Btl) 1 appln EXT BID [facility] Stop: 04/03/23 08:59 Last Admin: 03/15/23 08:55 Dose: 1 appln Pantoprazole Sodium (Pantoprazole 40 Mg Tab) 40 mg PO BID [facility] Stop: 04/03/23 08:59 Last Admin: 03/10/23 21:19 Dose: Not Given Polyethylene Glycol (Polyethylene (Miralax) 17 Gm Pack) 17 gm PO DAILY [facility] Stop: 04/12/23 10:44 Last Admin: 03/15/23 08:57 Dose: 17 gm Tizanidine HCl (Tizanidine Hcl 4 Mg Tablet) 4 mg PO BID@0000,1200 [facility] Stop: 04/05/23 12:14 Last Admin: 03/15/23 12:27 Dose: 4 mg Warfarin Sodium (Warfarin Sod 5 Mg Tab) 5 mg PO DAILY@1600 [facility] Stop: 04/06/23 15:59 Last Admin: 03/14/23 16:54 Dose: 5 mg (1) Altered mental status Altered mental status type: somnolence Qualified Code(s): R40.0 - Somnolence
[2023-03-15 15:09] VITALS: BP 125/70; TEMP 98.2
[2023-03-15] MEDS ORDERED: HYDROmorphone INJ 0.5 MG/0.5 ML SYR IV PRN ×2 (15:33→15:37)
[2023-03-15] MEDS ORDERED: haloperidoL 1 MG TAB PO PRN ×2 (15:33→15:50)
[2023-03-15] MEDS ORDERED: LORazepam 2 MG/1 ML VIAL IV PRN (15:33)
[2023-03-15] MEDS ORDERED: GLYCOPYRROLATE 0.2 MG/ML VIAL IV PRN (15:33)
[2023-03-15 16:00] VITALS: PULSE 89
[2023-03-15] MEDS: LORazepam 2 MG/1 ML VIAL IV PRN ×2 (16:19→22:12)
[2023-03-15] MEDS ORDERED: BACLOFEN 10 MG TAB PO SCH (18:00)
[2023-03-15] MEDS: HYDROmorphone INJ 0.5 MG/0.5 ML SYR IV PRN (19:40)
[2023-03-16] MEDS ORDERED: BACLOFEN 10 MG TAB PO SCH
[2023-03-16] MEDS: LORazepam 2 MG/1 ML VIAL IV PRN ×2 (02:04→06:03)
[2023-03-16] MEDS: HYDROmorphone INJ 0.5 MG/0.5 ML SYR IV PRN ×3 (04:42→11:32)
[2023-03-16] MEDS: GLYCOPYRROLATE 0.2 MG/ML VIAL IV PRN ×2 (06:08→10:09)
[2023-03-16] MEDS ORDERED: LORazepam 2 MG/1 ML VIAL IV PRN (09:13)
[2023-03-16] MEDS ORDERED: haloperidoL 1 MG TAB PO PRN (09:13)
[2023-03-16] MEDS: BACLOFEN 10 MG TAB PO SCH ×2 (10:12→13:17)
--- NOTE | 2023-03-16 14:13 | Hospitalist Progress Note ---
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 In the ED, he was found to be in hypercapnic resp failure, also in ROBERT over CKD III. He is being managed for the following: Palliative care encounter Input appreciated We will continue current management Remains comfortable this morning Sinus pauses Noted to have up to 4-second pause and monitor Did not have any symptoms EKG this morning looks okay Cardiology consulted-appreciate input and recommendation Beta-demario has been on hold Amlodipine has been started to control blood pressure No further issues Acute hypercapnic respiratory failure: Patient noted to be lethargic at presentation, CO2 of 61 in ABG at presentation. Likely secondary to underlying OHS. Admitting CT Head with no acute findings. Admitting CT chest with partial collapse of left lower lobe with underlying infection not excluded. Pulmonology consulted, recommend BPAP 15/10 w/ O2 on DC, sleep study as OP. Patient was put on BiPAP, was alert and back to baseline at bedside exam on the first day of exam. Condition got worse since this morning with more shortness of breath and somnolence Chest x-ray did show increasing congestion and received 80 mg of IV Lasix in the afternoon after discussion with the vault manager Appreciate steam presser evaluation and recommendation Has been using BiPAP as tolerated and the condition is getting a little better CODE STATUS has been changed to conditional Remains hypercarbic with pH of 7.27 and PCO2 of 65 Clinically much better and the patient seems to be back to his baseline mentation Has been requiring only 3 L via nasal cannula to maintain saturation Will have trilogy at home on discharge Stable respiratory symptoms and has been requiring 4 L today He has to use BiPAP as much as possible especially when he is sleeping and or napping For comfort care not need any shortness of breath Metabolic and toxic encephalopathy, multifactorial [see below] Patient was noted to be in confusion with hallucination for few days CABLE TESTER. Pt noted to be not eating and drinking well, there was concern of hydration. Likely secondary to respiratory failure due to congestion/infection and is complicated by ROBERT Now complicated by hypercarbia and acidosis Ongoing intermittent delirium Palliative care consultation is taken as above-as above Treat underlying cause as below. Hold neuropsych meds as able. pt w/ chronic pain/spasms - resume home meds gradually, may need to cut down on some pain/spasm meds as tolerated, pt agreeable. Acute kidney injury over CKD stage III: Patient was found to be in ROBERT over CKD stage III, hypercapnic respiratory failure at presentation. Patient was using cefepime for his sacral osteomyelitis treatment for few weeks by the time of presentation. Patient's admitting BUN and creatinine were 57 and 2.56, up trended following day. Patient noted to have poor appetite and poor fluid intake prior to arrival. Likely prerenal. Baseline creatinine around 1. Renal ultrasound without obstruction. 2019 echo with EF of 65 to 70%. Hold nephrotoxics. Nephrology on board, appreciate recommendation. lasix (& hence kcl) & aldactone on hold. Monitor BMP. Cr appears pleauted. expect improvement. Has been getting controlled doses of Lasix Creatinine remains high and minimally up today at 3.95 Creatinine remains stable at 3.9 range Kidney function is slightly worse-remains stable today with a creatinine of 4.20 as of 03/14/2023 Has been making out enough urine even though creatinine is minimally up and worsening Leukocytosis: WBC of 17.14K at presentation. Patient does appear to have chronic leukocytosis likely secondary to chronic osteomyelitis. Part of it may be contributed due to hemoconcentration secondary to poor appetite prior to arrival. Procalcitonin was negative at presentation. We will follow-up admitting blood and urine culture. Pt afebrile, wbc mostly fl uctuates around 13-14 K. ID evaled, see below. White count remains elevated at 12.27 Continue ceftazidime Leukocytosis has been normalized Stage IV decubitus ulcer, history of Sacral osteomyelitis Concern for recurrent UTI, CAUTI: Patient with chronic suprapubic catheter [see above]. Urine looks clean at bedside exam on first day, patient was noted to have Pseudomonas in his urine on 02/11/2023. For which he is being covered with cefepime itself. On chronic methenamine suppression Rx - will hold while on antibiotic actively. Cefepime changed to ceftazidime 03/04/23, ID Evaled - ok w/ current dose of ceftazidime; CRP now and QotherWk; CMP/CBC w/ diff weekly while on atb. End date of atb 03/24/23. As above ceftazidime will be continued to finish the course of antibiotic The course of antibiotic will be finished on of this month Patient is a status post debridement of sacral ulcer by Dr. Srivastava on 02/11/2023 [previous admission]. Patient was being treated with cefepime for sacral osteomyelitis. 02/11 wound culture with Pseudomonas aeruginosa. Patient was evaluated by ID and recommended 6 weeks of IV cefepime at that time. PICC line was placed on 02/18. Cefepime has been changed to intravenous ceftazidime on 03/05/2023-likely the cause for congestion Discussed with the ID specialist and the pharmacist-ceftazidime will have less sodium and fluid administration compared with Zosyn We will continue with ceftazidime for now Wound care on board Pt will need close f/u w/ ID on DC. Seizure disorder:For breakthrough seizure in his 02/09 to 02/19 admission while on Keppra, his Keppra was changed to Depakote after neurology evaluation. Later patient self-discontinued Depakote due to intolerance. Evaluated by neurology again during his 02/23 - 02/26 admission, he was put back on Keppra with increased dose to 750 Mg twice daily from 500 mg BID in the past. Continue the home dose of Keppra. Patient to continue follow-up with his neurology upon discharge. Other chronic medical conditions:Resume/continue home meds as able Insulin-dependent T2DM: A1c of 6.9 this admission, glycemic pharmacy on board, sliding scale insulin. Neurogenic bladder/suprapubic cath in place/history of recurrent UTIs: hold methenamine hippurate until actively on antibiotic Rx. Colostomy status: Colostomy in place to prevent wound swelling, continue r outine ostomy care Chronic anticoagulation secondary to coagulation disorder: Monitor INR daily or as needed, continue with home warfarin at reduced dose of 5 mg daily due to supratherapeutic INR at presentation. INR today subtherapeutic, extra warfarin dose of 2.5mg on top of daily 5 mg. pt/inr in am. 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 Repeat TFT in 6 weeks. DVT prophylaxis: on Warfarin Full code Dispo: CM to assist w/ dc plan, pending nephrology clearance. Patient's Ms. Rody Rodriguez, contact #[phone]. Discussed with the in detail again today on 03/16/2023 Admission and Anticipated Discharge Date Admission Date: March 04, 2023 Subjective 03/10/2023 The patient was seen and examined in medical telemetry unit He has been feeling worse since this morning Complains chest tightness/epigastric discomfort with increasing shortness of breath Denies any pain, fever or chills and denies any nausea or vomiting Has been feeling that he is not feeling well 03/11/2023 The patient was seen and examined in medical telemetry unit He has been a little better today but he still remains confused Tolerating BiPAP reasonably Having diuresis 03/12/2023 The patient was seen and examined in medical telemetry unit He has been feeling much better and talking normally to me this morning after about 2 or 3 days Has been degrading 3 L to maintain saturation Denies any other significant symptoms 03/13/2023 The patient was seen and examined in the medical telemetry unit He was noted to have up to year 4-second pause last night without any symptoms He has been feeling much better this morning denies any significant symptom No more abdominal pain 03/14/2023 The patient was seen and examined in the medical telemetry unit He remains stable with occasional confusion Has been eating and drinking well and remains on 4 L nasal cannula to maintain saturation 03/15/2023 The patient was seen and examined in medical telemetry unit He has been stable with occasional attacks of delirium associated with restlessness and more confusion with desaturation Remained drowsy this morning and remains on BiPAP Clinically worsened compared with the last few days Discussed with significant other and palliative care consultation was taken 03/16/2023 The patient was seen and examined in medical floor in presence of the He has been on comfort care since last evening Has had some problem with agitation and shortness of breath last night but resting comfortably now We will continue comfort care Review of Systems Review of Systems: All systems reviewed and are unremarkable except as noted below Neurologic: Has quadriplegia without any evidence of worsening at this time Physical Exam Physical Exam: Lying in bed with minimal to moderate respiratory distress and drowsiness Constitutional: well developed, well nourished, + ill appearing and + morbidly obese Eyes: PERRL, conjunctivae normal, anicteric sclerae ENMT: external ear and nose normal, oropharynx normal Neck: trachea midline, no thyromegaly Respiratory: + abnormal respiratory effort, no respiratory distress and not tachypneic Auscultation: + diminished lung sounds and + crackles (Bibasally more on the left); no wheezes Cardiovascular: Rate/Rhythm: regular rate and regular rhythm; not tachycardic Heart Sounds: normal S1 and normal S2; no murmur Extremities: + edema (Trace to 1+ edema bilaterally) Gastrointestinal (Abdomen): Inspection/Auscultation: normal bowel sounds; abdomen not distended Percussion/Palpation: abdomen soft; abdomen nontender Lymphatic: no cervical or axillary lymphadenopathy Results & Data Results & Data Vital Signs (Past 12 Hours) Vital Signs O2 Del Method O2 Flow Rate 03/16/23 08:04 Nasal Cannula 4 Medications Administered Current Inpatient Medications Baclofen (Baclofen 10 Mg Tab) 10 mg PO TID JO Stop: 04/14/23 20:59 Last Admin: 03/16/23 13:17 Dose: Not Given Glycopyrrolate (Glycopyrrolate 0.2 Mg/Ml Vial) 0.4 mg IV Q4H PRN PRN Reason: Secretions or Pulm Congestion Stop: 04/14/23 15:49 Last Admin: 03/16/23 10:09 Dose: 0.4 mg Haloperidol (Haloperidol 1 Mg Tab) 4 mg PO Q4H PRN PRN Reason: delirium, hallucinations Stop: 04/14/23 15:49 Hydromorphone HCl (Hydromorphone Inj 0.5 Mg/0.5 Ml Syr) 1 mg IV Q1H PRN PRN Reason: Pain or Respiratory Distress Stop: 03/29/23 15:49 Last Admin: 03/16/23 11:32 Dose: 1 mg Hydromorphone HCl (Hydromorphone Inj 0.5 Mg/0.5 Ml Syr) 0.5 mg IV Q30M PRN PRN Reason: Pain Stop: 03/29/23 15:52 Last Admin: 03/16/23 04:42 Dose: 0.5 mg Lorazepam (Lorazepam 2 Mg/1 Ml Vial) 3 mg IV Q4H PRN PRN Reason: Anxiety/Agitation Stop: 04/14/23 15:49 Last Admin: 03/16/23 10:09 Dose: 3 mg (1) Altered mental status Altered mental status type: somnolence Qualified Code(s): R40.0 - Somnolence
--- NOTE | 2023-03-16 14:21 | Communication Note ---
Date of Service: March 16, 2023 Asked to pronounce: The patient was seen in presence of the family members. Unresponsive to any stimuli No respiratory and/or cardiac sound Pupils widely dilated and fixed He was pronounced on 03/16/2023 at 1330 hours. The causes of : Acute respiratory failure Multilobar pneumonia Acute renal failure Quadriplegia Sacral osteomyelitis Dr Deondre Juarez
--- NOTE | 2023-03-16 17:01 | Discharge Summary ---
Date of Service March 16, 2023 Admission HPI Per Admitting Provider History obtained from patient, , and records. Limited history from patient secondary to disorientation. 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 dif, chronic sacral decubitus wounds/osteomyelitis status post recent debridement ongoing Cefepime course. Two [facility] confinements this month for sepsis secondary to infected sacral decubitus ulcer. No debridement during last confinement. Patient discharged on cefepime course last week. Keppra started for seizure disorder by Neurology due to valproic acid intolerance. Patient noted to be confused the last few days with hallucinations. Not eating a lot. No unusual cough, chest pain, SOB, abdominal pain, headache complaints. Patient brought to the ER for evaluation. MEDICAL HISTORY: As above. SURGICAL HISTORY: Kidney stone procedures, suprapubic catheter placement, neck surgery, IVC filter placement, ostomy/bowel surgery, vascular procedure, wound debridement procedures FAMILY HISTORY: DM, prostate cancer PERSONAL SOCIAL HISTORY: Nonsmoker. No chronic intake of alcoholic beverages. On disability. Admission Exam Per Admitting Provider Physical Exam: GENERAL: Lethargic, morbidly obese, no respiratory distress SKIN: Pallor, warm HEENT: Pale palpebral conjunctivae, no ptosis, dry buccal mucosa NECK : Supple, short neck, no tenderness CHEST : Decreased breath sounds, no tenderness HEART : RRR, no obvious murmurs ABDOMEN: distention, nontender, ostomy noted EXTREMITIES : Minimal LE swelling, no LE tenderness, no other conspicuous deformities noted NEUROLOGIC : Lethargic, no facial asymmetry, quadriplegia Principal Diagnosis :The causes of : Acute respiratory failure Multilobar pneumonia Acute renal failure Quadriplegia Sacral osteomyelitis Discharge Data Allergies Allergy/AdvReac Type Severity Reaction Status Date / Time codeine Allergy Severe THROAT Verified 02/23/23 14:12 SWELLS latex Allergy Intermediate Hives Verified 02/23/23 14:12 piperacillin Allergy Intermediate Hives Verified 02/23/23 14:12 Sulfa (Sulfonamide Allergy Intermediate HIVES Verified 02/23/23 14:12 Antibiotics) tazobactam Allergy Intermediate Hives Verified 02/23/23 14:12 aztreonam Allergy Unknown unknown Verified 02/23/23 14:12 metoclopramide [From Reglan] AdvReac Intermediate lethargy Verified 02/23/23 14:12 Consultations 03/03/23 22:54 ED Decision to Admit Stat 03/04/23 10:06 Consult Nephrology Routine 03/04/23 10:07 Consult Infectious Diseases Routine Consult Pulmonology Routine 03/10/23 15:11 Consult Retail Sales Teammate Routine 03/13/23 09:00 Consult Cardiology Routine 03/15/23 10:27 Consult Palliative Care Routine Ordered Studies 03/03/23 21:49 CT head/brain wo con Stat 03/03/23 22:55 CT chest diagnostic wo con Stat 03/05/23 17:30 US renal/blad retro comp Routine 03/12/23 15:43 CT Abd and Pelvis [CT abd pelvis wo con] Urgent Hospital Course (1) Altered mental status: Plan 62-year-old male w/ PMH of 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 In the ED, he was found to be in hypercapnic resp failure, also in ROBERT over CKD III. He is being managed for the following: Palliative care encounter Input appreciated We will continue current management Remains comfortable this morning Sinus pauses Noted to have up to 4-second pause and monitor Did not have any symptoms EKG this morning looks okay Cardiology consulted-appreciate input and recommendation Beta-demario has been on hold Amlodipine has been started to control blood pressure No further issues Acute hypercapnic respiratory failure: Patient noted to be lethargic at presentation, CO2 of 61 in ABG at presentation. Likely secondary to underlying OHS. Admitting CT Head with no acute findings. Admitting CT chest with partial collapse of left lower lobe with underlying infection not excluded. Pulmonology consulted, recommend BPAP 15/10 w/ O2 on DC, sleep study as OP. Patient was put on BiPAP, was alert and back to baseline at bedside exam on the first day of exam. Condition got worse since this morning with more shortness of breath and somnolence Chest x-ray did show increasing congestion and received 80 mg of IV Lasix in the afternoon after discussion with the mail teller Appreciate e commerce marketing manager evaluation and recommendation Has been using BiPAP as tolerated and the condition is getting a little better CODE STATUS has been changed to conditional Remains hypercarbic with pH of 7.27 and PCO2 of 65 Clinically much better and the patient seems to be back to his baseline mentation Has been requiring only 3 L via nasal cannula to maintain saturation Will have trilogy at home on discharge Stable respiratory symptoms and has been requiring 4 L today He has to use BiPAP as much as possible especially when he is sleeping and or napping For comfort care not need any shortness of breath Metabolic and toxic encephalopathy, multifactorial [see below] Patient was noted to be in confusion with hallucination for 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 Pt noted to be not eating and drinking well, there was concern of hydration. Likely secondary to respiratory failure due to congestion/infection and is complicated by ROBERT Now complicated by hypercarbia and acidosis Ongoing intermittent delirium Palliative care consultation is taken as above-as above Treat underlying cause as below. Hold neuropsych meds as able. pt w/ chronic pain/spasms - resume home meds gr adually, may need to cut down on some pain/spasm meds as tolerated, pt agreeable. Acute kidney injury over CKD stage III: Patient was found to be in ROBERT over CKD stage III, hypercapnic respiratory failure at presentation. Patient was using cefepime for his sacral osteomyelitis treatment for few weeks by the time of presentation. Patient's admitting BUN and creatinine were 57 and 2.56, up trended following day. Patient noted to have poor appetite and poor fluid intake prior to arrival. Likely prerenal. Baseline creatinine around 1. Renal ultrasound without obstruction. 2020 echo with EF of 65 to 70%. Hold nephrotoxics. Nephrology on board, appreciate recommendation. lasix (& hence kcl) & aldactone on hold. Monitor BMP. Cr appears pleauted. expect improvement. Has been getting controlled doses of Lasix Creatinine remains high and minimally up today at 3.95 Creatinine remains stable at 3.9 range Kidney function is slightly worse-remains stable today with a creatinine of 4.20 as of 03/14/2023 Has been making out enough urine even though creatinine is minimally up and worsening Leukocytosis: WBC of 17.14K at presentation. Patient does appear to have chronic leukocytosis likely secondary to chronic osteomyelitis. Part of it may be contributed due to hemoconcentration secondary to poor louisa etite prior to arrival. Procalcitonin was negative at presentation. We will follow-up admitting blood and urine culture. Pt afebrile, wbc mostly fluctuates around 13-14 K. ID evaled, see below. White count remains elevated at 12.27 Continue ceftazidime Leukocytosis has been normalized Stage IV decubitus ulcer, history of Sacral osteomyelitis Concern for recurrent UTI, CAUTI: Patient with chronic suprapubic catheter [see above]. Urine looks clean at bedside exam on first day, patient was noted to have Pseudomonas in his urine on 02/11/2023. For which he is being covered with cefepime itself. On chronic methenamine suppression Rx - will hold while on antibiotic actively. Cefepime changed to ceftazidime 03/04/23, ID Evaled - ok w/ current dose of ceftazidime; CRP now and QotherWk; CMP/CBC w/ diff weekly while on atb. End date of atb 03/24/23. As above ceftazidime will be continued to finish the course of antibiotic The course of antibiotic will be finished on of this month Patient is a status post debridement of sacral ulcer by Dr. Srivastava on 02/11/2023 [previous admission]. Patient was being treated with cefepime for sacral osteomyelitis. 02/11 wound culture with Pseudomonas aeruginosa. Patient was evaluated by ID and recommended 6 weeks of IV cefepime at that time. PICC line was placed on 02/18. Cefepime has been changed to intravenous ceftazidime on 03/05/2023-likely the cause for congestion Discussed with the ID specialist and the pharmacist-ceftazidime will have less sodium and fluid administration compared with Zosyn We will continue with ceftazidime for now Wound care on board Pt will need close f/u w/ ID on DC. Seizure disorder:For breakthrough seizure in his 02/09 to 02/19 admission while on Keppra, his Keppra was changed to Depakote after neurology evaluation. Later patient self-discontinued Depakote due to intolerance. Evaluated by neurology again during his 02/23 - 02/26 admission, he was put back on Keppra with increased dose to 750 Mg twice daily from 500 mg BID in the past. Continue the home dose of Keppra. Patient to continue follow-up with his neurology upon discharge. Other chronic medical conditions:Resume/continue home meds as able Insulin-dependent T2DM: A1c of 6.9 this admission, glycemic pharmacy on board, sliding scale insulin. Neurogenic bladder/suprapubic cath in place/history of recurrent UTIs: hold methenamine hippurate until actively on antibiotic Rx. Colostomy status: Colostomy in place to prevent wound swelling, continue routine ostomy care Chronic anticoagulation secondary to coagulation disorder: Monitor INR daily or as needed, continue with home warfarin at reduced dose of 5 mg daily due to supratherapeutic INR at presentation. INR today subtherapeutic, extra warfarin dose of 2.5mg on top of daily 5 mg. pt/inr in am. 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 Repeat TFT in 6 weeks. DVT prophylaxis: on Warfarin Full code Dispo: CM to assist w/ dc plan, pending nephrology clearance. Patient's Ms. Rody Rodriguez, contact #[phone]. Discussed with the in detail again today on 03/16/2023 Total Time Total Time Spent Total Time Spent (In Minutes): 35 minutes Discharge Plan Discharge Items Patient Disposition: Discharge Diagnosis: The causes of : Acute respiratory failure Multilobar pneumonia Acute renal failure Quadriplegia Sacral osteomyelitis Other Date/Time: 03/16/23 13:30
== END 2023-03-16 15:25 | disposition expired | DRG 205 ==
LOC: ED 19:58 → EDINP 03-04 01:36 → SUATTDRO 03-04 01:36 → 2N 03-04 01:41 → 3N 03-15 18:31